=== PATIENT | male | born 1965 | race Caucasian/White ===

== ENCOUNTER 2016-09-05 12:56 | Emergency (ER) | payer BC, OTHER ==
[~2016-09-05] VITALS: Ht 175.3 cm; Wt 98.0 kg
[~2016-09-05 12:56] MED LIST: ATOR-24 PO; FURO40TA3 PO; HMLIS SC; INSDGIPEN SC; LOSA1TAB38 PO; MULT-506 PO; OLME1TAB11 PO; OMEG10007 PO; OMEP40CA41 PO; POTA10CA28 PO; SITA50TA5 PO; VENL150C56 PO
[2016-09-05 13:02] VITALS: TEMP 36.3; Ht 175.3 cm; Wt 98.0 kg
[2016-09-05] MEDS ORDERED: NICOTINE 21 MG/24 HR TDSY TD STA (14:24)
[2016-09-05] MEDS ORDERED: SODIUM CHLORIDE 0.9% 1000ML 1,000 ML IV STA (14:24)
[2016-09-05] MEDS ORDERED: MULTI-VITAMIN INFUSION INJ 10 ML, THIAMINE HCL INJ 100 MG, FoLIC ACID INJ 1 MG in SODIU... IV ONE (14:29)
[2016-09-05] MEDS ORDERED: NICOTINE POLACRILEX 2 MG GUM MT PRN (14:30)
[2016-09-05 14:56] LABS: URINE APPEARANCE CLEAR (CLEAR); URINE BILIRUBIN NEG (NEG); URINE COLOR YELLOW; URINE NITRITE NEG (NEG); URINE SPECIFIC GRAVITY 1.015 (1.000-1.030); UROBILINOGEN NEG (NEG); ZZUR CULT IF INDIC CLEAN CATCH NO
[2016-09-05 15:00] LABS: HEMATOCRIT 42.1 % (42-52); MEAN CELL VOLUME 89.6 fL (80-100); MEAN CORPUSCULAR HEMOGLOBIN 31.5 pg (25-34); MEAN CORPUSCULAR HGB CONC 35.2 g/dl (32-36); MEAN PLATELET VOLUME 9.9 fL (7.4-10.4); PLATELET COUNT 156 K/uL (130-400); WHITE BLOOD COUNT 5.31 K/uL (4.8-10.8)
[2016-09-05 15:02] LABS: MANUAL MICROSCOPIC REQUIRED? NO; REVIEW REQ? YES
[2016-09-05] MEDS ORDERED: AMLODIPINE BESYLATE 5 MG TAB PO STA (15:05)
[2016-09-05 15:11] LABS: BENZODIAZEPINE, URINE NEG (NEG); COCAINE,URINE NEG (NEG); PHENCYCLIDINE, URINE NEG (NEG)
[2016-09-05 15:38] LABS: BUN/CREATININE RATIO 18.2 (10-20); CALCIUM 8.2 mg/dl (8.5-10.1); CREATININE 0.89 mg/dl (0.60-1.40); POTASSIUM 3.7 mmol/L (3.5-5.1)
[2016-09-05 15:49] LABS: THYROID STIMULATING HORMONE 1.27 uIu/ml (0.300-4.500)
--- NOTE | 2016-09-05 16:13 | EMERGENCY ROOM VISIT NOTE ---
History First contact with patient: 14:08 Chief Complaint: DETOX REQUEST Stated Complaint: ALCOHOLISM - DRUNK Nursing Triage Summary: Patient presents with a c/c of requesting Detox. Patient reports chronic alcoholism, drinks at least 1/2 gallon of liquor per day. 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 Patient has history of placement in detox facility in [facility] approximately 2-3 years ago. Negative suicidal ideations. Patient cooperative with staff. History of Present Illness The patient is a 51 year old male who presents to the Emergency Room with requesting detox. He had his last drink minutes before arrival (bottle of beer) . The patient drinks about half a gallon of whisky daily. He also admits to abusing benzodiazepines and opiates which he is not prescribed and buys them. He called his sister and daughter this morning telling them he thought he was going to because of all the alcohol he was drinking. He is unsure if he has taken anything other than alcohol today. 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 He drinks throughout the day on his days off. He did successfully detox 4 years previously. Off alcohol then for 7 months. He is prescribed multiple medications for diabetes and hypertension but as per his daughter does not take any of these as he forgets. He smokes 3 packs of cigarettes daily and is currently requesting a nicotine patch He is anxious but denies any pain, shortness of breath, nausea or vomiting. Review of Systems See HPI for pertinent positives & negatives. A total of 10 systems reviewed and were otherwise negative. Past Medical/Surgical History Medical Problems: (1) Alcoholism /alcohol abuse (2) Anxiety (3) Diabetes (4) HTN (hypertension) (5) Non compliance with medical treatment (6) Type 2 diabetes mellitus Social History Problems: (1) Prescription drug abuse Family History No pertinent family history Social History Smoking Status: Current Every Day Smoker Alcohol Use: heavy Drug Use: other (opiates and benzos) Current/Historical Medications Unable to Obtain Active Prescriptions or Reported Meds Allergies Coded Allergies: No Known Allergies (Unverified , 09/05/16) Physical Exam Vital Signs Date Time Temp Pulse Resp B/P (MAP) Pulse Ox O2 Delivery O2 Flow Rate FiO2 09/05/16 19:41 103 18 155/127 98 Room Air 09/05/16 18:09 100 16 164/114 97 6/19/17 15:34 93 18 171/111 96 Room Air 09/05/16 13:02 36.3 108 20 192/113 95 Room Air Physical Exam VITAL SIGNS: were reviewed as above GENERAL:no acute distress, appears intoxicated SKIN: Warm dry and pink, no rashes HEAD: Normocephalic and atraumatic EYES: extraocular muscles intact, pupils equal and reactive to light OROPHARYNX: non erythematous, clear and moist NECK: Supple, no adenopathy or meningismus LUNGS: No respiratory distress, clear to auscultation, no accessory muscle use HEART: Regular rate and rhythm, heart sounds 1+2, no murmurs ABDOMEN: Soft and nontender, bowel sounds normal BACK: no CVA tenderness EXTREMITIES: Warm and well perfused, no calf tenderness/swelling, peripheral edema 1+ to knees NEUROLOGICALLY: Awake alert and oriented. Cranial nerves 2-12 intact. Cerebellar testing is within normal limits. There is no nystagmus. There is no facial droop. Speech is clear. Vision is grossly normal. Motor and sensory examinations of upper and lower limbs 5/5 power and no sensory deficit. MUSCULOSKELETAL: Good muscle tone. No evidence of trauma Medical Decision & Procedures Laboratory Results 09/05/16 14:48 09/05/16 14:48 Test 09/05/16 13:13 09/05/16 14:48 Urine Color YELLOW Urine Appearance CLEAR (CLEAR) Urine pH 5.0 (4.5-7.5) Urine Specific [place] 1.015 (1.000-1.030) Urine Protein 3+ (NEG) Urine Glucose (UA) 2+ (NEG) Urine Ketones NEG (NEG) Urine Occult Blood 1+ (NEG) Urine Nitrite NEG (NEG) Urine Bilirubin NEG (NEG) Urine Urobilinogen NEG (NEG) Urine Leukocyte Esterase NEG (NEG) Urine WBC (Auto) 0 /hpf (0-5) Urine RBC (Auto) 5-10 /hpf (0-4) Urine Hyaline Casts (Auto) 0 /lpf (0-5) Urine Epithelial Cells (Auto) 5-10 /lpf (0-5) Urine Bacteria (Auto) NEG (NEG) Urine Opiates Screen NEG (NEG) Urine Methadone, Qualitative NEG (NEG) Urine Barbiturates NEG (NEG) Urine Phencyclidine (PCP) Level NEG (NEG) Ur Amphetamine/Methamphetamine NEG (NEG) MDMA (Ecstasy) Screen NEG (NEG) Urine Benzodiazepines Screen NEG (NEG) Urine Cocaine Metabolite NEG (NEG) Urine Marijuana (THC) NEG (NEG) Red Blood Count 4.70 M/uL (4.7-6.1) Mean Corpuscular Volume 89.6 fL (80-100) Mean Corpuscular Hemoglobin 31.5 pg (25-34) Mean Corpuscular Hemoglobin Concent 35.2 g/dl (32-36) RDW Standard Deviation 39.7 fL (36.4-46.3) RDW Coefficient of Variation 12.1 % (11.5-14.5) Mean Platelet Volume 9.9 fL (7.4-10.4) Anion Gap 12.0 mmol/L (3-11) Est Creatinine Clear Calc Drug Dose 112.1 ml/min Estimated GFR () 113.9 Estimated GFR (Non- 98.3 BUN/Creatinine Ratio 18.2 (10-20) Calcium Level 8.2 mg/dl (8.5-10.1) Total Bilirubin 0.7 mg/dl (0.2-1) Direct Bilirubin 0.1 mg/dl (0-0.2) Aspartate Amino Transf (AST/SGOT) 73 U/L (15-37) Alanine Aminotransferase (ALT/SGPT) 109 U/L (12-78) Alkaline Phosphatase 75 U/L (45-117) Total Protein 7.1 gm/dl (6.4-8.2) Albumin 3.3 gm/dl (3.4-5.0) Thyroid Stimulating Hormone (TSH) 1.270 uIu/ml (0.300-4.500) Ethyl Alcohol mg/dL 329.0 mg/dl (0-3) Medications Administered Medications (Trade) Dose Ordered Sig/Dav Route Start Time Stop Time Status Last Admin Dose Admin Sodium Chloride 1,000 ml @ 999 mls/hr Q1H1M STAT IV 09/05/16 14:24 09/05/16 15:24 DC 09/05/16 14:52 999 MLS/HR Nicotine (Nicoderm Cq 21MG Patch) 1 patch ONE STAT TD 09/05/16 14:24 09/05/16 14:28 DC 09/05/16 14:53 1 PATCH Multivitamins 10 ml/Thiamine HCl 100 mg/Folic Acid 1 mg/Sodium Chloride 1,011.2 ml @ 500 mls/ hr Q2H2M ONCE IV 09/05/16 14:29 09/05/16 16:30 DC 09/05/16 14:29 500 MLS/HR Amlodipine Besylate (Norvasc Tab) 5 mg NOW STAT PO 09/05/16 15:05 09/05/16 15:09 DC 09/05/16 15:37 5 MG Lorazepam (Ativan Tab) 1 mg NOW STAT PO 09/05/16 17:33 09/05/16 17:34 DC 09/05/16 17:39 1 MG Amlodipine Besylate (Norvasc Tab) 5 mg NOW ONCE PO 09/05/16 19:30 09/05/16 19:31 DC 09/05/16 19:40 5 MG ECG Indication: altered mental status Rate (beats per minute): 94 Rhythm: normal sinus Findings: no acute ischemic change Comparison ECG Date: no prior available ED Course 14:05 Complete history and physical performed 14:[address] Guadarrama who separately performed history and physical 15:29 Reassessed patient - fine tremor, feels he is sobering up and getting more agitated and anxious although he appears calm 17:33 Reassessed patient - increased tremors, anxiety, agitation and headache - CIWA 14, Ativan 1mg PO prescribed 18:52 Reassessed patient - appears more calm, no tremors, headache continues. 19:26 Reassessed patient - eating dinner, appears much the same. 20:52 Reassessed patient - CIWA 8. Will give 1mg Ativan PO before he is transported as he is becoming more sober and it is a 2 hour journey. Medical Decision Prior records/ancillary studies reviewed. Triage Nursing notes reviewed. Additional history obtained from patient, his sister and daughter The patient's history was concerning for alcohol intoxication. Differential diagnosis: Etiologies such as alcohol intoxication, toxicologic, infection, hypoglycemia, electrolyte abnormalities, intracerebral event, neurologic, as well as others were entertained. Physical examination: As above. The patient is clinically intoxicated. No trauma noted. ER treatment provided: Aspiration precautions Amlodipine 5mg given due to blood pressure of 192/111 NSS 1L bolus Banana bag given The patient was frequently reassessed. The labs revealed elevated AST and ALT (likely chronic from alcohol use). The patient's blood alcohol level was 329 mg/dL. Glucose 211 consistent with history of diabetes and not compliant with medication Referral: Patient is requesting rehab. He has no signs or symptoms of delirium tremens Impression Primary Impression: Alcohol intoxication Departure Information Dispostion Rehab Inpatient Facility Condition GOOD Prescriptions Unable to Obtain Active Prescriptions or Reported Meds Referrals Meena Bansal M.D. (MEDICAL) (PCP) Patient Instructions My [facility] Resident Tracking Resident Involvement: Resident Care Provided Care Provided: Adult ED Problem Qualifiers Primary Impression: Alcohol intoxication Complication of substance-induced condition: uncomplicated Qualified Codes: F10.920 - Alcohol use, unspecified with intoxication, uncomplicated
--- NOTE | 2016-09-05 17:23 | EMERGENCY ROOM VISIT NOTE ---
History Report prepared by Samantha: Jose Mao Under the Supervision of: Dr. Vikash Guadarrama D.O. First contact with patient: 14:08 Chief Complaint: DETOX REQUEST Stated Complaint: ALCOHOLISM - DRUNK Nursing Triage Summary: Patient presents with a c/c of requesting Detox. Patient reports chronic alcoholism, drinks at least 1/2 gallon of liquor per day. 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 Patient has history of placement in detox facility in [facility] approximately 2-3 years ago. Negative suicidal ideations. Patient cooperative with staff. History of Present Illness The patient is a 51 year old male who presents to the Emergency Room with an acute alcohol detox request. The patient drinks about half a gallon of whisky per day. He also abuses benzodiazepines and opiates, which are not prescribed to him. The patient called his family this morning and told them that he is afraid that he will if he does not change his habits. The patient last drank just prior to coming to the ED. He is not sure how much opiates or benzos he took today. The patient 's last alcohol detox was about four years ago, which lasted 7 months. The patient also smokes up to 3 packs of cigarettes per day. The patient is prescribed Effexor for anxiety. He is not compliant with his diabetes or hypertension medications. Source of History: patient Onset: today Position: other (global) Quality: other (alcohol detox request) Timing: other (acute) Modifying Factors (Worsening): other (fearful for life) Review of Systems See HPI for pertinent positives & negatives. A total of 10 systems reviewed and were otherwise negative. Past Medical & Surgical Medical Problems: (1) Anxiety (2) Diabetes (3) HTN (hypertension) Family History No pertinent family history Social History Smoking Status: Current Every Day Smoker Alcohol Use: heavy Occupation Status: employed Current/Historical Medications Unable to Obtain Active Prescriptions or Reported Meds Allergies Uncoded Allergies: NKDA (Allergy, NONE, 11/30/10) Physical Exam Vital Signs Date Time Temp Pulse Resp B/P (MAP) Pulse Ox O2 Delivery O2 Flow Rate FiO2 09/05/16 15:34 93 18 171/111 96 Room Air 09/05/16 13:02 36.3 108 20 192/113 95 Room Air Physical Exam CONSTITUTIONAL/VITAL SIGNS: Reviewed / noted above. GENERAL: Non-toxic in appearance. INTEGUMENTARY: Warm, dry, and [place]. HEAD: Normocephalic. EYES: without scleral icterus or trauma. ENT/OROPHARYNX: clear and moist. LYMPHADENOPATHY/NECK: Is supple without lymphadenopathy or meningismus. RESPIRATORY: Lungs clear and equal. CARDIOVASCULAR: Regular rate and rhythm. GI/ABDOMEN: Soft and nontender. No organomegaly or pulsatile mass. No rebound or guarding. Normal bowel sounds. EXTREMITIES: Warm and well perfused. BACK: No CVA tenderness. NEUROLOGICAL: Intact without focal deficits. PSYCHIATRIC: normal affect. MUSCULOSKELETAL: Normally developed with good muscle tone. TRIAGE NURSING DOCUMENTATION REVIEWED. Medical Decision & Procedures Laboratory Results 09/05/16 14:48 09/05/16 14:48 Test 09/05/16 13:13 09/05/16 14:48 Urine Color YELLOW Urine Appearance CLEAR (CLEAR) Urine pH 5.0 (4.5-7.5) Urine Specific [place] 1.015 (1.000-1.030) Urine Protein 3+ (NEG) Urine Glucose (UA) 2+ (NEG) Urine Ketones NEG (NEG) Urine Occult Blood 1+ (NEG) Urine Nitrite NEG (NEG) Urine Bilirubin NEG (NEG) Urine Urobilinogen NEG (NEG) Urine Leukocyte Esterase NEG (NEG) Urine WBC (Auto) 0 /hpf (0-5) Urine RBC (Auto) 5-10 /hpf (0-4) Urine Hyaline Casts (Auto) 0 /lpf (0-5) Urine Epithelial Cells (Auto) 5-10 /lpf (0-5) Urine Bacteria (Auto) NEG (NEG) Urine Opiates Screen NEG (NEG) Urine Methadone, Qualitative NEG (NEG) Urine Barbiturates NEG (NEG) Urine Phencyclidine (PCP) Level NEG (NEG) Ur Amphetamine/Methamphetamine NEG (NEG) MDMA (Ecstasy) Screen NEG (NEG) Urine Benzodiazepines Screen NEG (NEG) Urine Cocaine Metabolite NEG (NEG) Urine Marijuana (THC) NEG (NEG) Red Blood Count 4.70 M/uL (4.7-6.1) Mean Corpuscular Volume 89.6 fL (80-100) Mean Corpuscular Hemoglobin 31.5 pg (25-34) Mean Corpuscular Hemoglobin Concent 35.2 g/dl (32-36) RDW Standard Deviation 39.7 fL (36.4-46.3) RDW Coefficient of Variation 12.1 % (11.5-14.5) Mean Platelet Volume 9.9 fL (7.4-10.4) Anion Gap 12.0 mmol/L (3-11) Est Creatinine Clear Calc Drug Dose 112.1 ml/min Estimated GFR () 113.9 Estimated GFR (Non- 98.3 BUN/Creatinine Ratio 18.2 (10-20) Calcium Level 8.2 mg/dl (8.5-10.1) Total Bilirubin 0.7 mg/dl (0.2-1) Direct Bilirubin 0.1 mg/dl (0-0.2) Aspartate Amino Transf (AST/SGOT) 73 U/L (15-37) Alanine Aminotransferase (ALT/SGPT) 109 U/L (12-78) Alkaline Phosphatase 75 U/L (45-117) Total Protein 7.1 gm/dl (6.4-8.2) Albumin 3.3 gm/dl (3.4-5.0) Thyroid Stimulating Hormone (TSH) 1.270 uIu/ml (0.300-4.500) Ethyl Alcohol mg/dL 329.0 mg/dl (0-3) Laboratory results as stated above per my review. Medications Administered Medications (Trade) Dose Ordered Sig/Dav Route Start Time Stop Time Status Last Admin Dose Admin Sodium Chloride 1,000 ml @ 999 mls/hr Q1H1M STAT IV 09/05/16 14:24 09/05/16 15:24 DC 09/05/16 14:52 999 MLS/HR Nicotine (Nicoderm Cq 21MG Patch) 1 patch ONE STAT TD 09/05/16 14:24 09/05/16 14:28 DC 09/05/16 14:53 1 PATCH Multivitamins 10 ml/Thiamine HCl 100 mg/Folic Acid 1 mg/Sodium Chloride 1,011.2 ml @ 500 mls/ hr Q2H2M ONCE IV 09/05/16 14:29 09/05/16 16:30 DC 09/05/16 14:29 500 MLS/HR Amlodipine Besylate (Norvasc Tab) 5 mg NOW STAT PO 09/05/16 15:05 09/05/16 15:09 DC 09/05/16 15:37 5 MG ECG Indication: other (detox) Rate (beats per minute): 94 Rhythm: normal sinus Findings: no acute ischemic change, no ectopy ED Course 1405: The patient was evaluated by my resident, Dr. Tae Sparrow M.D. 1424: Nicotine Patch TD, NSS 1000 ml @ 999 mls/hr. 1429: Multivitamins 10 ml / Thiamine HCl 100 mg / Folic Acid 1 mg / NSS 1011.2 ml @ 500 mls/hr IV. 1430: Nicotine 2 mg gum. 1505: Norvasc 5 mg PO. 1525: Previous medical records were reviewed. The patient was evaluated in room A6. A complete history and physical examination was performed. Medical Decision differential includes toxic ingestions, self-mutilation, suicidal ideation, suicide attempt, depression. This is a 51-year-old male who presents to the ED with a chief complaint of alcoholism. The patient is requesting detox. He states that he has been to [facility] about 4 years ago for rehabilitation. He states that he has a strong desire to become clean. The patient's initial blood pressure was elevated at 192/113. This improved during his ED stay. He does report that he is supposed to be taking blood pressure medication and has not been compliant with this. His physical exam reveals a 51-year-old male in no acute distress. There is a small amount of alcohol about the patient but the patient speaks clearly and appears to be functioning normally. An EKG shows a normal sinus rhythm. CBC was unremarkable as was her complete metabolic panel. TSH is normal. Tox screen was negative. Alcohol was 329. The patient was given 15, as well as Norvasc by mouth. He was given a banana bag. He was told the results. The patient is being evaluated by case management assistant for placement at a rehabilitation facility. He is going to [facility]. Transportation being arranged. The patient has elevated blood pressure. He is to follow-up with his PCP for this and take his medications. Medication list was reviewed. Impression Primary Impression: Alcoholism /alcohol abuse Scribe Attestation The scribe's documentation has been prepared under my direction and personally reviewed by me in its entirety. I confirm that the note above accurately reflects all work, treatment, procedures, and medical decision making performed by me. Departure Information Dispostion Rehab Inpatient Facility Prescriptions Unable to Obtain Active Prescriptions or Reported Meds Referrals No Doctor, Assigned (PCP) Patient Instructions My [facility] Additional Instructions Have your doctor recheck her blood pressure. He should take her blood pressure medication as prescribed. Go to rehabilitation.
[2016-09-05] MEDS ORDERED: LORAZEPAM 1 MG TAB PO STA ×3 (17:33→22:07)
[2016-09-05] MEDS ORDERED: AMLODIPINE BESYLATE 5 MG TAB PO ONE (19:30)
[2016-09-05] MEDS ORDERED: CHLORDIAZEPOXIDE 25 MG CAP PO STA (22:11)
[2016-09-05] MEDS ORDERED: LORAZEPAM 1 MG TAB SL STA ×2 (22:31→23:26)
[2016-09-05] MEDS ORDERED: GABAPENTIN 600 MG TAB PO SCH (23:15)
[2016-09-05] MEDS ORDERED: CLONIDINE HCL 0.1 MG TAB PO ONE (23:15)
[2016-09-05] MEDS ORDERED: LORAZEPAM 2 MG/ML 1 ML VIAL IV PRN (23:15)
[2016-09-05 23:22] VITALS: BP 183/119; PULSE 105; O2SAT 95
[2016-09-05 23:28] LABS: MAGNESIUM 1.8 mg/dl (1.8-2.4)
--- NOTE | 2016-09-06 01:32 | EMERGENCY ROOM VISIT NOTE ---
ED Visit Note This patient was seen by Dr. Sparrow and Dr. Guadarrama. The patient was awaiting transfer or [facility] hours away. Apparently there was a delay in transfer. Dr. Sparrow came and asked me about Ativan as he felt the patient was withdrawing. He had given a milligram of Ativan and had just ordered a second sublingual. I went and saw the patient and he did appear to be mildly shaky and was feeling anxious. His blood pressure was elevated however in reviewing his charts, it was elevated during his entire stay here including when he was intoxicated when he hit the door. I talked to the patient's family at length he is a very heavy drinker. I do not want him to have significant withdrawal so I gave him another 2 mg sublingual Ativan as at this point he did not have an IV. I also gave him Librium 50 mg by mouth to hopefully hold him over for the transport he was further observed in the ER. His blood pressure did remain elevated however he says is always elevating his chronic blood pressure upon reassessment. He is no longer shaky and looks well he says he feels good. I think he is stable for transfer at this point. He will be transferred to inpatient's Center. Given it is 2 hours away, I did give a milligram of Ativan to have just in case he starts feeling shaky on route as well. He will be transferred.
== END 2016-09-05 23:30 | disposition short-term general hospital (02) ==
LOC: C.EDB 12:59 → C.EDA 23:30
DX: F10.920 Alcohol use, unspecified with intoxication, uncomplicated (principal); F41.9 Anxiety disorder, unspecified; I10 Essential (primary) hypertension; E11.9 Type 2 diabetes mellitus without complications; F11.10 Opioid abuse, uncomplicated; F17.210 Nicotine dependence, cigarettes, uncomplicated

== ENCOUNTER 2016-12-11 20:23 | Emergency (ER) | payer BC ==
[~2016-12-11] VITALS: Ht 180.3 cm; Wt 98.0 kg
[2016-12-11 20:28] VITALS: TEMP 36.9; Ht 180.3 cm; Wt 98.0 kg
[2016-12-11 21:29] LABS: BASO % 1.3 %; BASO ABS # 0.08 K/uL (0-0.2); COMPLETE YES; EOS % 0.6 %; HEMATOCRIT 40.4 % (42-52); IG% 0.2 %; LYMPH % 49.1 %; LYMPH ABS # 3.13 K/uL (1.2-3.4); MEAN CELL VOLUME 91.2 fL (80-100); MEAN CORPUSCULAR HEMOGLOBIN 32.5 pg (25-34); MEAN CORPUSCULAR HGB CONC 35.6 g/dl (32-36); MEAN PLATELET VOLUME 9.3 fL (7.4-10.4); MONO % 6.1 %; NEUT % 42.7 %; PLATELET COUNT 329 K/uL (130-400); RED BLOOD COUNT 4.43 M/uL (4.7-6.1); WHITE BLOOD COUNT 6.38 K/uL (4.8-10.8)
[2016-12-11] MEDS ORDERED: CALC500C3 PO (21:38)
[2016-12-11] MEDS ORDERED: NICOTINE 14 MG/24 HR TDSY TD STA (21:39)
[2016-12-11] MEDS ORDERED: ALBUT/IPRATROP 3MG/0.5MG NEB 3 ML VIAL INH STA (21:39)
[2016-12-11] MEDS ORDERED: METHYLPREDNISOLONE 125 MG VIAL IV STA (21:39)
[2016-12-11] MEDS ORDERED: MAGNESIUM SULFATE 1GM / D5W 1 GM BAG IV STA (21:39)
--- NOTE | 2016-12-11 21:45 | EMERGENCY ROOM VISIT NOTE ---
History Report prepared by Samantha: Tre Velazquez Under the Supervision of: Dr. Zelalem Peter M.D. First contact with patient: 21:02 Chief Complaint: MENTAL HEALTH EVALUATION Stated Complaint: EMOTIONAL History of Present Illness The patient is a 51 year old white male with a past medical history of bipolar disorder, alcoholism and drug abuse who presents to the ED with a cc of persistent depression beginning 2.5 months ago. Admits to drinking about a half gallon of whiskey per day. Uses drugs when he is able to obtain them. The patient states "I don't care if I live or ". Thoughts of stabbing himself with scissors. Patient was recently discharged from rehab for alcohol. Drank a few shots and a few beers today with the most recent drink being about five hours ago. Smokes a pack of cigarettes per day. Source of History: patient Onset: 2.5 months ago Quality: other (depression) Timing: other (persistent) Review of Systems See HPI for pertinent positives and negatives. A total of ten systems were reviewed and were otherwise negative. Past Medical & Surgical Medical Problems: (1) Alcoholism /alcohol abuse (2) Anxiety (3) Diabetes (4) HTN (hypertension) (5) Non compliance with medical treatment (6) Type 2 diabetes mellitus Social History Problems: (1) Prescription drug abuse Family History No pertinent family history Social History Smoking Status: Current Every Day Smoker Alcohol Use: heavy Drug Use: other Occupation Status: employed Current/Historical Medications Scheduled PRN Calcium Carbonate (Tums), 500 MG PO UD PRN for ACID Allergies Coded Allergies: No Known Allergies (Unverified , 09/05/16) Physical Exam Vital Signs Date Time Temp Pulse Resp B/P (MAP) Pulse Ox O2 Delivery O2 Flow Rate FiO2 12/12/16 00:55 99 22 140/88 90 Room Air 12/11/16 22:47 93 Nasal Cannula 2.0 12/11/16 22:46 104 28 145/86 88 Room Air 12/11/16 20:55 95 Nasal Cannula 2.0 12/11/16 20:55 89 Room Air 12/11/16 20:54 89 12/11/16 20:28 36.9 91 18 114/70 94 Room Air Physical Exam GENERAL: Awake, alert, well-appearing, NAD HENT: Normocephalic, atraumatic. EYES: Normal conjunctiva. Sclera non-icteric. NECK: Supple. No nuchal rigidity. FROM. RESPIRATORY: Wheezing throughout with coarse breath sounds. CARDIAC: RRR, no MRG ABDOMEN: Soft, NTND, BS+ MSK: No chest wall TTP, no LE edema NEURO: GCS 15, CN 2-12 intact, moves all 4s on command. Follows all commands. SKIN: No rash or jaundice noted. Medical Decision & Procedures ER Provider Diagnostic Interpretation: X-ray: Per my interpretation, radiologist review. CHEST ONE VIEW PORTABLE FINDINGS: The bones soft tissues and hemidiaphragms are normal. The cardiomediastinal silhouette is normal. The lungs are clear. The pulmonary vasculature is normal. IMPRESSION: Negative chest. The above report was generated using voice recognition software. It may contain grammatical, syntax or spelling errors. Electronically signed by: Glenn Zambrano M.D. 12/11/2016 10:07 PM Laboratory Results 12/11/16 21:08 Red Blood Count 4.43, Mean Corpuscular Volume 91.2, Mean Corpuscular Hemoglobin 32.5, Mean Corpuscular Hemoglobin Concent 35.6, Mean Platelet Volume 9.3, Neutrophils (%) (Auto) 42.7, Lymphocytes (%) (Auto) 49.1, Monocytes (%) (Auto) 6.1, Eosinophils (%) (Auto) 0.6, Basophils (%) (Auto) 1.3, Neutrophils # (Auto) 2.73, Lymphocytes # (Auto) 3.13, Monocytes # (Auto) 0.39, Eosinophils # (Auto) 0.04, Basophils # (Auto) 0.08 12/11/16 21:08 Test 12/11/16 21:08 White Blood Count 6.38 K/uL (4.8-10.8) Red Blood Count 4.43 M/uL (4.7-6.1) Hemoglobin 14.4 g/dL (14.0-18.0) Hematocrit 40.4 % (42-52) Mean Corpuscular Volume 91.2 fL (80-100) Mean Corpuscular Hemoglobin 32.5 pg (25-34) Mean Corpuscular Hemoglobin Concent 35.6 g/dl (32-36) Platelet Count 329 K/uL (130-400) Mean Platelet Volume 9.3 fL (7.4-10.4) Neutrophils (%) (Auto) 42.7 % Lymphocytes (%) (Auto) 49.1 % Monocytes (%) (Auto) 6.1 % Eosinophils (%) (Auto) 0.6 % Basophils (%) (Auto) 1.3 % Neutrophils # (Auto) 2.73 K/uL (1.4-6.5) Lymphocytes # (Auto) 3.13 K/uL (1.2-3.4) Monocytes # (Auto) 0.39 K/uL (0.11-0.59) Eosinophils # (Auto) 0.04 K/uL (0-0.5) Basophils # (Auto) 0.08 K/uL (0-0.2) RDW Standard Deviation 43.5 fL (36.4-46.3) RDW Coefficient of Variation 13.0 % (11.5-14.5) Immature Granulocyte % (Auto) 0.2 % Immature Granulocyte # (Auto) 0.01 K/uL (0.00-0.02) Anion Gap 14.0 mmol/L (3-11) Est Creatinine Clear Calc Drug Dose 85.9 ml/min Estimated GFR () 80.1 Estimated GFR (Non- 69.1 BUN/Creatinine Ratio 18.0 (10-20) Calcium Level 8.2 mg/dl (8.5-10.1) Total Bilirubin 0.2 mg/dl (0.2-1) Direct Bilirubin < 0.1 mg/dl (0-0.2) Aspartate Amino Transf (AST/SGOT) 62 U/L (15-37) Alanine Aminotransferase (ALT/SGPT) 165 U/L (12-78) Alkaline Phosphatase 77 U/L (45-117) Total Protein 7.3 gm/dl (6.4-8.2) Albumin 3.2 gm/dl (3.4-5.0) Thyroid Stimulating Hormone (TSH) 0.876 uIu/ml (0.300-4.500) Ethyl Alcohol mg/dL 247.0 mg/dl (0-3) Laboratory results reviewed by me Medications Administered Medications (Trade) Dose Ordered Sig/Dav Route Start Time Stop Time Status Last Admin Dose Admin Nicotine (Nicoderm Cq 14MG Patch) 1 patch ONE STAT TD 12/11/16 21:39 12/11/16 21:41 DC 12/11/16 21:48 1 PATCH Albuterol/ Ipratropium (Duoneb) 9 ml ONE STAT INH 12/11/16 21:39 12/11/16 21:41 DC 12/11/16 21:50 9 ML Magnesium Sulfate (Magnesium Sulfate) 1 gm NOW STAT IV 12/11/16 21:39 12/11/16 21:41 DC 12/11/16 21:53 1 GM Methylprednisolone Sodium Succinate (Solu-Medrol IV) 125 mg NOW STAT IV 12/11/16 21:39 12/11/16 21:41 DC 12/11/16 21:48 125 MG ED Course 4: The patient was evaluated in room A5. A complete history and physical exam was performed. 5: I spoke with the case filler regarding the patient's case. 0215: The patient is clinically sober and will be evaluated by mental health. 0230: The patient was signed out to Dr. George at the change of shift pending mental health evaluation. Medical Decision The patient is a 51 year old white male with a past medical history of bipolar disorder, alcoholism and drug abuse who presents to the ED with a cc of persistent depression beginning 2.5 months ago. Differential diagnosis: acute psychosis, intoxication, electrolyte abnormality , and asthma exacerbation. Patient was seen and evaluated at the bedside. Patient acutely intoxicated. Patient able to follow commands GCS of 15. Patient is a smoker and does have a history of asthma. Patient did have wheezing throughout. Patient was given steroids [place] fluids. Patient was also given thiamine and folic acid and Librium given his recent alcohol use as well as prior history of alcohol abuse. Patient's blood work fairly unremarkable. Patient chest x-ray clear. Patient was pending placement at time of sign out to Dr. George. Medication Reconcilliation Current Medication List: was personally reviewed by me Blood Pressure Screening Patient's blood pressure: Normal blood pressure Blood pressure disposition: Did not require urgent referral Impression Primary Impression: Acute psychosis Additional Impressions: Intoxication Asthma exacerbation Scribe Attestation The scribe's documentation has been prepared under my direction and personally reviewed by me in its entirety. I confirm that the note above accurately reflects all work, treatment, procedures, and medical decision making performed by me. Departure Information Dispostion Still a Patient (Signed out to Dr. George at the change of shift) Referrals Meena Bansal M.D. (MEDICAL) (PCP) Forms HOME CARE DOCUMENTATION FORM, IMPORTANT VISIT INFORMATION Patient Instructions My [facility] Problem Qualifiers
[2016-12-11 21:46] LABS: ALT/SGPT 165 U/L (12-78); AST/SGOT 62 U/L (15-37); BLOOD UREA NITROGEN 22 mg/dl (7-18); CALCIUM 8.2 mg/dl (8.5-10.1); CARBON DIOXIDE 20 mmol/L (21-32); CHLORIDE 105 mmol/L (98-107); GLUCOSE 153 mg/dl (70-99); POTASSIUM 3.7 mmol/L (3.5-5.1); SODIUM 139 mmol/L (136-145)
[2016-12-11 21:58] LABS: ALKALINE PHOSPHATASE 77 U/L (45-117); THYROID STIMULATING HORMONE 0.876 uIu/ml (0.300-4.500)
--- NOTE | 2016-12-11 22:08 | DIAGNOSTIC IMAGING REPORT ---
CHEST ONE VIEW PORTABLE CLINICAL HISTORY: wheezing throughout dyspnea COMPARISON STUDY: 09/03/2015 FINDINGS: The bones soft tissues and hemidiaphragms are normal. The cardiomediastinal silhouette is normal. The lungs are clear. The pulmonary vasculature is normal. IMPRESSION: Negative chest. The above report was generated using voice recognition software. It may contain grammatical, syntax or spelling errors. Electronically signed by: Glenn Zambrano M.D. 12/11/2016 10:07 PM Dictated Date/Time: 12/11/2016 10:06 PM
[2016-12-12] MEDS ORDERED: THIAMINE HCL 100 MG/ML 2 ML VIAL IV STA (00:42)
[2016-12-12] MEDS ORDERED: SODIUM CHLORIDE 0.9% 1000ML 1,000 ML IV STA (00:42)
[2016-12-12] MEDS ORDERED: CHLORDIAZEPOXIDE 25 MG CAP PO ONE ×2 (00:45→06:45)
[2016-12-12 02:29] LABS: URINE APPEARANCE CLEAR (CLEAR); URINE BILIRUBIN NEG (NEG); URINE COLOR YELLOW; URINE EPITHELIAL CELL AUTO 0-5 /lpf (0-5); URINE NITRITE NEG (NEG); URINE SPECIFIC GRAVITY 1.031 (1.000-1.030); UROBILINOGEN NEG (NEG)
[2016-12-12 02:31] LABS: MANUAL MICROSCOPIC REQUIRED? NO; REVIEW REQ? NO
[2016-12-12 02:52] LABS: BENZODIAZEPINE, URINE NEG (NEG); COCAINE,URINE NEG (NEG); PHENCYCLIDINE, URINE NEG (NEG)
--- NOTE | 2016-12-12 03:15 | EMERGENCY ROOM VISIT NOTE ---
ED Visit Note First contact with patient: 03:11 I received this patient in signout at the change of shift from Dr. Peter pending mental health assessment and bed search. The patient has received by mouth Librium to avoid alcohol withdrawal in the emergency department. Patient has been accepted on a voluntary basis to [facility] for further care. Secure transportation arrangements have been made. Please refer to previous documentation for further detail on the history, physical and visit.
[2016-12-12] MEDS ORDERED: FoLIC ACID INJ 1 MG in SYRINGE 9.8 ML IV SCH (09:00)
[2016-12-12 09:35] VITALS: BP 159/89; PULSE 90; O2SAT 99
== END 2016-12-12 09:52 ==
LOC: EDBD 20:23 → C.EDA 20:24
DX: F31.9 Bipolar disorder, unspecified (principal); F23 Brief psychotic disorder; J45.901 Unspecified asthma with (acute) exacerbation; Y90.8 Blood alcohol level of 240 mg/100 ml or more; F17.210 Nicotine dependence, cigarettes, uncomplicated; F10.229 Alcohol dependence with intoxication, unspecified; F41.9 Anxiety disorder, unspecified; E11.9 Type 2 diabetes mellitus without complications; I10 Essential (primary) hypertension; Z91.19 Patient's noncompliance with other medical treatment and regimen

== ENCOUNTER 2017-02-02 14:26 | Emergency (ER) | payer BC ==
[~2017-02-02] VITALS: Ht 175.3 cm; Wt 101.9 kg
[~2017-02-02 14:26] MED LIST changes: -ATOR-24 PO; +CALC500C3 PO; -FURO40TA3 PO; -HMLIS SC; -INSDGIPEN SC; -LOSA1TAB38 PO; -MULT-506 PO; -OLME1TAB11 PO; -OMEG10007 PO; -OMEP40CA41 PO; -POTA10CA28 PO; -SITA50TA5 PO; -VENL150C56 PO
[2017-02-02] MEDS ORDERED: LORAZEPAM 2 MG/ML 1 ML VIAL IV STA (14:37)
[2017-02-02] MEDS ORDERED: THIAMINE HCL 100 MG/ML 2 ML VIAL IV STA (14:37)
--- NOTE | 2017-02-02 14:40 | EMERGENCY ROOM VISIT NOTE ---
History Report prepared by Samantha: Joe Mike Under the Supervision of: Dr. Maurice Kate D.O. First contact with patient: 14:27 Chief Complaint: SYNCOPE Stated Complaint: SYNCOPE History of Present Illness The patient is a 51 year old male who presents to the Emergency Room with complaints of an episode of syncope that occurred [employer]. He has a past medical history of alcohol abuse. He was recently discharged from 29 days in an alcohol rehabilitation center. He states that he is doing well and cleaning himself up. However, he notes that he did drink 2 quarts of beer three days ago. He states that he has been quite stressed recently and has not been able to sleep. He is experiencing shakiness to his body as well. While he was talking on the phone today, he began to feel very lightheaded and had an episode of syncope. The person he was talking to on the phone called EMS to go check on him. The patient woke up on the floor some time later with right facial numbness and a right leg cramp as well. He denies any trauma or injury. He currently has a mild headache. He denies any chest pain or shortness of breath. He denies any recent Benzodiazepine use. He took all of his normal medications this morning. He denies any IV drug use. He has never had a seizure induced by withdrawal. Source of History: patient Onset: today Position: other (global) Symptom Intensity: 1 episode Quality: other (Syncope) Timing: resolved Associated Symptoms: + numbness (right side of face), No chest pain, No SOB Note: He is having right calf cramping. Review of Systems See HPI for pertinent positives & negatives. A total of 10 systems reviewed and were otherwise negative. Past Medical & Surgical Medical Problems: (1) Alcoholism /alcohol abuse (2) Anxiety (3) Diabetes (4) HTN (hypertension) (5) Non compliance with medical treatment (6) Type 2 diabetes mellitus Social History Problems: (1) Prescription drug abuse Family History No pertinent family history Social History Smoking Status: Current Every Day Smoker Alcohol Use: heavy Drug Use: other (No IV drugs, but he states "all the other ones") Occupation Status: employed Current/Historical Medications Scheduled Aspirin (Aspirin Ec), 325 MG PO DAILY Chlordiazepoxide (Librium), 10 MG PO DIRECTED Gabapentin (Gabapentin), 600 MG PO TID Lisinopril (Zestril), 40 MG PO DAILY Multivitamin (Multivitamin), 1 TAB PO DAILY Naltrexone Hcl (Naltrexone Hcl), 25 MG PO HS Trazodone Hcl (Trazodone), 100 MG PO HS Venlafaxine Hcl (Venlafaxine Hcl Er), 150 MG PO DAILY Allergies Coded Allergies: No Known Allergies (Unverified , 02/02/17) Physical Exam Vital Signs Date Time Temp Pulse Resp B/P (MAP) Pulse Ox O2 Delivery O2 Flow Rate FiO2 02/02/17 17:44 75 20 152/100 95 02/02/17 16:28 78 20 179/86 94 Room Air 02/02/17 15:02 95 Room Air 02/02/17 15:00 36.6 105 20 140/101 94 Room Air 02/02/17 14:34 99 Physical Exam GENERAL: Patient is awake, alert, and in no acute distress. Patient is resting comfortably but is very anxious appearing. EYES: The conjunctivae are clear. The pupils are round and reactive. EARS, NOSE, MOUTH AND THROAT: The nose is without any evidence of any deformity. Mucous membranes are moist tongue is midline NECK: The neck is nontender and supple. RESPIRATORY: Normal respiratory effort is noted there is no evidence of wheezing rhonchi or rales CARDIOVASCULAR: Regular rate and rhythm noted there no murmurs rubs or gallops normal S1 normal S2 GASTROINTESTINAL: The abdomen is soft. Bowel sounds are present in all quadrants. Abdomen is nontender MUSCULOSKELETAL/EXTREMITIES: There is no evidence of gross deformity full range of motion is noted in the hips and shoulders SKIN: There is no obvious evidence of any rash. There are no petechiae, pallor or cyanosis noted. NEUROLOGIC: Patient is awake alert and oriented x3 strength is symmetric patellar reflexes are 2+ bilaterally. There was a significant resting tremor which also appearing to worsen with intent. Medical Decision & Procedures ER Provider Diagnostic Interpretation: Radiology results as stated below per my review and radiologist interpretation: CT HEAD WITHOUT CONTRAST (CT) CLINICAL HISTORY: Altered mental status. Weakness. COMPARISON STUDY: No previous studies for comparison. TECHNIQUE: Axial CT of the brain is performed from the vertex to the skull base. IV contrast was not administered for this examination. A dose lowering technique was utilized adhering to the principles of ALARA. CT DOSE: 884.08 mGy.cm FINDINGS: No intra or extra-axial mass lesions are visualized. There is no CT evidence of acute cortical infarction. There is no evidence of midline shift. There is no acute hemorrhage. No calvarial fractures are visualized. There is ossification of the anterior falx. There is no evidence of pathologic ventricular dilatation. There is mucosal thickening within the left maxillary sinus. There is an inflammatory polyp/retention cyst within the sphenoid sinus. IMPRESSION: No acute intracranial findings Electronically signed by: David Meneses M.D. 02/02/2017 3:47 PM Dictated Date/Time: 02/02/2017 3:46 PM CHEST ONE VIEW PORTABLE HISTORY: 51 years-old Male EVALUATE ALTERED MENTAL STATUS/WEAKNESS acute altered mental status COMPARISON: Chest radiograph 12/11/2016 TECHNIQUE: Portable upright AP view of the chest FINDINGS: Cardiac mediastinal and hilar silhouettes are within normal limits. There is no pneumothorax, pleural effusion, focal airspace consolidation or overt pulmonary edema. Degenerative changes involve the spine and shoulders. IMPRESSION: No acute cardiopulmonary process. The above report was generated using voice recognition software. It may contain grammatical, syntax or spelling errors. Electronically signed by: Abel Ramos M.D. 02/02/2017 3:33 PM Dictated Date/Time: 02/02/2017 3:32 PM Laboratory Results 02/02/17 14:52 Red Blood Count 4.00, Mean Corpuscular Volume 92.3, Mean Corpuscular Hemoglobin 32.0, Mean Corpuscular Hemoglobin Concent 34.7, Mean Platelet Volume 10.1, Neutrophils (%) (Auto) 69.8, Lymphocytes (%) (Auto) 20.2, Monocytes (%) (Auto) 9.1, Eosinophils (%) (Auto) 0.6, Basophils (%) (Auto) 0.3, Neutrophils # (Auto) 2.45, Lymphocytes # (Auto) 0.71, Monocytes # (Auto) 0.32, Eosinophils # (Auto) 0.02, Basophils # (Auto) 0.01 02/02/17 14:52 Test 02/02/17 14:52 02/02/17 15:20 White Blood Count 3.51 K/uL (4.8-10.8) Red Blood Count 4.00 M/uL (4.7-6.1) Hemoglobin 12.8 g/dL (14.0-18.0) Hematocrit 36.9 % (42-52) Mean Corpuscular Volume 92.3 fL (80-100) Mean Corpuscular Hemoglobin 32.0 pg (25-34) Mean Corpuscular Hemoglobin Concent 34.7 g/dl (32-36) Platelet Count 133 K/uL (130-400) Mean Platelet Volume 10.1 fL (7.4-10.4) Neutrophils (%) (Auto) 69.8 % Lymphocytes (%) (Auto) 20.2 % Monocytes (%) (Auto) 9.1 % Eosinophils (%) (Auto) 0.6 % Basophils (%) (Auto) 0.3 % Neutrophils # (Auto) 2.45 K/uL (1.4-6.5) Lymphocytes # (Auto) 0.71 K/uL (1.2-3.4) Monocytes # (Auto) 0.32 K/uL (0.11-0.59) Eosinophils # (Auto) 0.02 K/uL (0-0.5) Basophils # (Auto) 0.01 K/uL (0-0.2) RDW Standard Deviation 45.4 fL (36.4-46.3) RDW Coefficient of Variation 13.5 % (11.5-14.5) Immature Granulocyte % (Auto) 0.0 % Immature Granulocyte # (Auto) 0.00 K/uL (0.00-0.02) Prothrombin Time 10.7 SECONDS (9.0-12.0) Prothromb Time International Ratio 1.0 (0.9-1.1) Activated Partial Thromboplast Time 28.0 SECONDS (21.0-31.0) Partial Thromboplastin Ratio 1.1 Anion Gap 9.0 mmol/L (3-11) Est Creatinine Clear Calc Drug Dose 103.8 ml/min Estimated GFR () 102.3 Estimated GFR (Non- 88.3 BUN/Creatinine Ratio 16.6 (10-20) Calcium Level 9.0 mg/dl (8.5-10.1) Magnesium Level 1.5 mg/dl (1.8-2.4) Total Bilirubin 0.6 mg/dl (0.2-1) Direct Bilirubin 0.2 mg/dl (0-0.2) Aspartate Amino Transf (AST/SGOT) 65 U/L (15-37) Alanine Aminotransferase (ALT/SGPT) 107 U/L (12-78) Alkaline Phosphatase 83 U/L (45-117) Total Creatine Kinase 173 U/L (39-308) Creatine Kinase MB 2.4 ng/ml (0.5-3.6) Creatine Kinase MB Ratio 1.4 (0-3.0) Troponin I < 0.015 ng/ml (0-0.045) Total Protein 6.9 gm/dl (6.4-8.2) Albumin 3.2 gm/dl (3.4-5.0) Beta-Hydroxybutyric Acid 1.20 mg/dL (0.2-2.81) Thyroid Stimulating Hormone (TSH) 1.780 uIu/ml (0.300-4.500) Ethyl Alcohol mg/dL < 3.0 mg/dl (0-3) Urine Color YELLOW Urine Appearance CLEAR (CLEAR) Urine pH 5.5 (4.5-7.5) Urine Specific [place]quin 1.017 (1.000-1.030) Urine Protein 2+ (NEG) Urine Glucose (UA) 3+ (NEG) Urine Ketones NEG (NEG) Urine Occult Blood TRACE (NEG) Urine Nitrite NEG (NEG) Urine Bilirubin NEG (NEG) Urine Urobilinogen NEG (NEG) Urine Leukocyte Esterase NEG (NEG) Urine WBC (Auto) 1-5 /hpf (0-5) Urine RBC (Auto) 5-10 /hpf (0-4) Urine Hyaline Casts (Auto) 1-5 /lpf (0-5) Urine Epithelial Cells (Auto) 10-20 /lpf (0-5) Urine Bacteria (Auto) 1+ (NEG) Urine Pathogenic Casts 0-3 GRANULAR CASTS /lpf (0) Urine Opiates Screen NEG (NEG) Urine Methadone, Qualitative NEG (NEG) Urine Barbiturates NEG (NEG) Urine Phencyclidine (PCP) Level NEG (NEG) Ur Amphetamine/Methamphetamine NEG (NEG) MDMA (Ecstasy) Screen NEG (NEG) Urine Benzodiazepines Screen NEG (NEG) Urine Cocaine Metabolite NEG (NEG) Urine Marijuana (THC) NEG (NEG) Laboratory results per my review. Medications Administered Medications (Trade) Dose Ordered Sig/Dav Route Start Time Stop Time Status Last Admin Dose Admin Lorazepam (Ativan Inj) 1 mg NOW STAT IV 02/02/17 14:37 02/02/17 14:40 DC 02/02/17 15:12 1 MG Thiamine HCl (Vitamin B-1 Inj) 100 mg NOW STAT IV 02/02/17 14:37 02/02/17 14:40 DC 02/02/17 15:12 100 MG Magnesium Sulfate (Magnesium Sulfate) 1 gm NOW STAT IV 02/02/17 16:37 02/02/17 16:38 DC 02/02/17 16:48 1 GM ECG Indication: syncope Rate (beats per minute): 91 Rhythm: normal sinus Findings: no ectopy, other (No STS abnormalities) Comparison ECG Date: 12/12/16 Change: no significant change ED Course 1427: The patient was evaluated in room B7. A complete history and physical examination were performed. 1437: Ordered Thiamine HCl 100 IV, Ativan Inj 1 mg IV 1637: Ordered Magnesium Sulfate 1 gm IV 1719: Upon reevaluation, the patient is resting. I discussed the results and treatment plan with him. He verbalized agreement of the treatment plan. He was discharged home. Medical Decision Differential diagnosis: Etiologies such as vasovagal event, infection, hypoglycemia, electrolyte abnormalities, cardiac sources, intracerebral event, toxicologic, neurologic, as well as others were entertained. Nursing notes reviewed. Additional history is obtained from the patient's previous records. The patient is a 51-year-old male who presented to emergency department after having a syncopal episode. The patient has a long history of alcohol abuse and he has been through alcohol detox and rehabilitation in the past. He was recently through detox and rehabilitation but started using alcohol. Days ago. He did not have a definite alcohol-related seizure but it does sound as though the patient had a syncopal episode. He was treated with Ativan and thiamine in the emergency department. He was reevaluated multiple times. I discussed the patient's laboratory and radiographic studies with him. On subsequent reevaluation he was feeling much better. He was encouraged to continue all medications as prescribed. He was started on a Librium taper with the help of the pharmacist. He was also encouraged to discuss the possibility with his family doctor that he may require further studies such as an echocardiogram or Holter monitor to further evaluate the cause of his passing out episode. Otherwise he was encouraged to return to the emergency department or call crisis if symptoms change worsen or the need arises. Medication Reconcilliation Current Medication List: was personally reviewed by me Blood Pressure Screening Patient's blood pressure: Elevated blood pressure Blood pressure disposition: Elevated BP felt to be situational Impression Primary Impression: Syncope Additional Impressions: Alcohol withdrawal Hypomagnesemia Scribe Attestation The scribe's documentation has been prepared under my direction and personally reviewed by me in its entirety. I confirm that the note above accurately reflects all work, treatment, procedures, and medical decision making performed by me. Departure Information Dispostion Home / Self-Care Prescriptions Chlordiazepoxide (Librium) 10 Mg Cap 10 MG PO DIRECTED, #18 CAP Prov: Maurice Kate, DO 02/02/17 Referrals Fani Salas D.O. Forms HOME CARE DOCUMENTATION FORM, IMPORTANT VISIT INFORMATION, Work Instructions Patient Instructions Alcoholism, My [facility], Syncope Additional Instructions Call your family doctor in the morning to schedule a follow-up appointment. Rest and avoid any strenuous activity. Discuss with your doctor the possibility that you may require further studies such as an echocardiogram and a Holter monitor to further evaluate the cause of your passing out episode. You may also require an MRI the brain. Return to the emergency department immediately if symptoms change worsen or the need arises. Here of the instructions on how to take your Librium. Take 2 capsules every 6 hours on Day 1, Take 2 capsules every 8 hours on day 2, Take 1 capsule every 8 hours on day 3. Take one capsule in the morning on Day 4 Take this paper to the pharmacy with you when you get your prescription filled. Problem Qualifiers Primary Impression: Syncope Syncope type: unspecified Qualified Codes: R55 - Syncope and collapse Additional Impressions: Alcohol withdrawal Complication of substance-induced condition: uncomplicated Qualified Codes: F10.230 - Alcohol dependence with withdrawal, uncomplicated
[2017-02-02 15:00] VITALS: TEMP 36.6; Ht 175.3 cm; Wt 101.9 kg
[2017-02-02 15:02] VITALS: O2SAT 95
[2017-02-02 15:06] LABS: BASO % 0.3 %; BASO ABS # 0.01 K/uL (0-0.2); COMPLETE YES; EOS % 0.6 %; HEMATOCRIT 36.9 % (42-52); LYMPH % 20.2 %; LYMPH ABS # 0.71 K/uL (1.2-3.4); MEAN CELL VOLUME 92.3 fL (80-100); MEAN CORPUSCULAR HGB CONC 34.7 g/dl (32-36); MEAN PLATELET VOLUME 10.1 fL (7.4-10.4); MONO % 9.1 %; NEUT % 69.8 %; PLATELET COUNT 133 K/uL (130-400); WHITE BLOOD COUNT 3.51 K/uL (4.8-10.8)
[2017-02-02] MEDS ORDERED: MULT-506 PO (15:14)
[2017-02-02] MEDS ORDERED: NRN600 PO (15:14)
[2017-02-02] MEDS ORDERED: VENL150T33 PO (15:14)
[2017-02-02] MEDS ORDERED: MELA1TAB5 PO (15:14)
[2017-02-02] MEDS ORDERED: TRAZ100T29 PO (15:14)
[2017-02-02] MEDS ORDERED: NALT50TA5 PO (15:14)
[2017-02-02] MEDS ORDERED: ASPI325T39 PO (15:14)
[2017-02-02] MEDS ORDERED: LISI40TA PO (15:14)
[2017-02-02 15:17] LABS: PARTIAL THROMBOPLASTIN RATIO 1.1; PROTHROMBIN TIME (PATIENT) 10.7 SECONDS (9.0-12.0)
[2017-02-02 15:26] LABS: ALT/SGPT 107 U/L (12-78); BLOOD UREA NITROGEN 16 mg/dl (7-18); BUN/CREATININE RATIO 16.6 (10-20); CARBON DIOXIDE 25 mmol/L (21-32); CHLORIDE 95 mmol/L (98-107); CREATININE 0.98 mg/dl (0.60-1.40); GLUCOSE 325 mg/dl (70-99); MAGNESIUM 1.5 mg/dl (1.8-2.4); POTASSIUM 4.6 mmol/L (3.5-5.1); SODIUM 130 mmol/L (136-145)
[2017-02-02 15:28] LABS: AST/SGOT 65 U/L (15-37)
--- NOTE | 2017-02-02 15:34 | DIAGNOSTIC IMAGING REPORT ---
CHEST ONE VIEW PORTABLE HISTORY: 51 years-old Male EVALUATE ALTERED MENTAL STATUS/WEAKNESS acute altered mental status COMPARISON: Chest radiograph 12/11/2016 TECHNIQUE: Portable upright AP view of the chest FINDINGS: Cardiac mediastinal and hilar silhouettes are within normal limits. There is no pneumothorax, pleural effusion, focal airspace consolidation or overt pulmonary edema. Degenerative changes involve the spine and shoulders. IMPRESSION: No acute cardiopulmonary process. The above report was generated using voice recognition software. It may contain grammatical, syntax or spelling errors. Electronically signed by: Abel Ramos M.D. 02/02/2017 3:33 PM Dictated Date/Time: 02/02/2017 3:32 PM
[2017-02-02 15:37] LABS: ALKALINE PHOSPHATASE 83 U/L (45-117); CKMB/CK RATIO 1.4 (0-3.0)
--- NOTE | 2017-02-02 15:48 | DIAGNOSTIC IMAGING REPORT ---
CT HEAD WITHOUT CONTRAST (CT) CLINICAL HISTORY: Altered mental status. Weakness. COMPARISON STUDY: No previous studies for comparison. TECHNIQUE: Axial CT of the brain is performed from the vertex to the skull base. IV contrast was not administered for this examination. A dose lowering technique was utilized adhering to the principles of ALARA. CT DOSE: 884.08 mGy.cm FINDINGS: No intra or extra-axial mass lesions are visualized. There is no CT evidence of acute cortical infarction. There is no evidence of midline shift. There is no acute hemorrhage. No calvarial fractures are visualized. There is ossification of the anterior falx. There is no evidence of pathologic ventricular dilatation. There is mucosal thickening within the left maxillary sinus. There is an inflammatory polyp/retention cyst within the sphenoid sinus. IMPRESSION: No acute intracranial findings Electronically signed by: David Meneses M.D. 02/02/2017 3:47 PM Dictated Date/Time: 02/02/2017 3:46 PM
[2017-02-02 15:51] LABS: URINE APPEARANCE CLEAR (CLEAR); URINE BILIRUBIN NEG (NEG); URINE COLOR YELLOW; URINE NITRITE NEG (NEG); URINE PH 5.5 (4.5-7.5); URINE SPECIFIC GRAVITY 1.017 (1.000-1.030); UROBILINOGEN NEG (NEG)
[2017-02-02 15:55] LABS: MANUAL MICROSCOPIC REQUIRED? NO; REVIEW REQ? YES
[2017-02-02 16:05] LABS: URINE PATH CASTS 0-3 GRANULAR CASTS /lpf (0)
[2017-02-02] MEDS ORDERED: MAGNESIUM SULFATE 1GM / D5W 1 GM BAG IV STA (16:37)
[2017-02-02] MEDS ORDERED: CHLO10CA7 PO (17:06)
[2017-02-02 17:44] VITALS: BP 152/100; PULSE 75; O2SAT 95
[2017-02-02 19:40] LABS: BENZODIAZEPINE, URINE NEG (NEG); COCAINE,URINE NEG (NEG); PHENCYCLIDINE, URINE NEG (NEG)
== END 2017-02-02 17:45 | disposition home or self-care (01) ==
LOC: EDBD 14:26 → C.EDB 14:27
DX: R55 Syncope and collapse (principal); F10.239 Alcohol dependence with withdrawal, unspecified; E83.42 Hypomagnesemia; E11.9 Type 2 diabetes mellitus without complications; I10 Essential (primary) hypertension; F41.9 Anxiety disorder, unspecified; F17.200 Nicotine dependence, unspecified, uncomplicated; Z79.82 Long term (current) use of aspirin; Z79.899 Other long term (current) drug therapy

== ENCOUNTER 2019-01-01 10:34 | Inpatient (IN) ==
[2019-01-01] MEDS ORDERED: METOPROLOL TARTRATE 1 MG/ML VIAL IV STA (11:09)
[2019-01-01] MEDS ORDERED: AMLODIPINE BESYLATE 5 MG TAB PO ONE (11:09)
[2019-01-01] MEDS ORDERED: ASPIRIN CHEW 324 MG PO STA (11:09)
[2019-01-01] MEDS ORDERED: THIAMINE HCL 200 MG in SODIUM CHLORIDE 0.9% 50 ML IV STA (11:12)
[2019-01-01 11:25] LABS: Basophils # (auto) 0.01 K/uL (0-0.2); Basophils % (auto) 0.2 %; Eosinophils # (auto) 0.04 K/uL (0-0.5); Eosinophils % (auto) 0.8 %; Hematocrit (blood only) 37.4 % (42-52); Hemoglobin 12.7 g/dL (14.0-18.0); Immature Granulocytes # (auto) 0.02 K/uL (0.00-0.02); Immature Granulocytes % (auto) 0.4 %; Lymphocytes # (auto) 1.34 K/uL (1.2-3.4); Lymphocytes % (auto) 25.8 %; Mean Corpuscular Hemoglobin 31.2 pg (25-34); Mean Corpuscular Volume 91.9 fL (80-100); Mean Platelet Volume 9.5 fL (7.4-10.4); Monocytes # (auto) 0.79 K/uL (0.11-0.59); Monocytes % (auto) 15.2 %; Neutrophils % (auto) 57.6 %; Platelet Count 206 K/uL (130-400); RDW Coefficient of Variation 14.7 % (11.5-14.5); RDW Standard Deviation 48.7 fL (36.4-46.3); Red Blood Count 4.07 M/uL (4.7-6.1)
--- NOTE | 2019-01-01 11:25 | XRay Report ---
XR chest 1V portable CLINICAL HISTORY: Atypical chest pain COMPARISON STUDY: 02/02/2017 FINDINGS: The heart is at the upper limits of normal in size. There is mild interstitial prominence s imilar to the prior study. There is no overt failure. There is no focal pulmonary consolidation. Ther e are no pleural effusions. There is a linear opacity at the left lung base likely representing subse gmental atelectatic change[ IMPRESSION: No active disease in the chest. Electronically signed by: David Meneses M.D. 01/01/2019 11:23 AM
[2019-01-01 11:38] LABS: Partial Thromboplastin Ratio 1.2; Partial Thromboplastin Time 33.6 Seconds (21.0-31.0); Prothrombin Time 10.4 Seconds (9.0-12.0)
[2019-01-01 11:42] LABS: Albumin Level 2.9 gm/dl (3.4-5.0); Calcium 8.6 mg/dl (8.5-10.1); Creatinine Clr Calc Pharmacy 120.6 ml/min; Est GFR (African American) 112.3; Est GFR (Non-African American) 96.9
[2019-01-01 11:47] LABS: Albumin Globulin Ratio 0.7 (0.9-2); Bilirubin,Total 0.4 mg/dl (0.2-1); Globulin 3.9 gm/dl (2.5-4.0); Total Protein 6.8 gm/dl (6.4-8.2)
[2019-01-01] MEDS ORDERED: HEPARIN SODIUM/DEXTROSE 25,000 UNITS/500 ML BAG IV SCH (12:30)
[2019-01-01] MEDS ORDERED: HEPARIN SOD (PORCINE) 1000 UNIT/ML 10 ML VIAL ONE (12:51)
--- NOTE | 2019-01-01 13:35 | Cardiology Consultation ---
Date of Consultation January 01, 2019 Assessment & Plan (1) NSTEMI (non-ST elevated myocardial infarction): At this time the patient is pain-free however his troponin is significantly elevated and he has moderate hypokinesis of the inferior and inferior lateral mccarty on echocardiogram. I believe the most prudent course of action at this point will be to proceed directly with cardiac catheterization for direct visualization of his coronary anatomy. The benefits, risks and alternatives were discussed in great lengths. He states that he understands, he is accepting of the risk and wishes to proceed with a cardiac catheterization. Further recommendations to follow results of the cath. (2) Polysubstance abuse: Would check a tox screen (3) CATALINO (obstructive sleep apnea): (4) Obesity: (5) Tobacco use disorder: Will require cessation counseling prior to discharge (6) Alcoholism: (7) HTN (hypertension): Will continue lisinopril for now especially given its nephro protective benefits for diabetics We will further tailor medical regimen after catheterization History of Present Illness Reason for Consultation: nstemi Requesting Physician: Dr. Kate History of Present Illness It was my pleasure to see Mr. Dillard in urgent consultation today January 01, 2019. He is a very pleasant 53-year-old gentleman who presented to [facility] emergency department as per the direction of CV IM today after voicing complaints of chest discomfort. He states that approximately 3 months ago he went to [place] to undergo alcohol rehab. Ever since completing the rehab his nose he is been getting chest pain. He describes it as a charley horse sensation underneath his ribs that is rather severe. He states it could either happen at rest or with exertion but does seem to happen more often with exertion. He also notes that he is very short of breath when trying to walk he lives in [place] currently and he notes that he has a great deal of difficulty walking the hills and has to stop frequently to catch his breath. He has been attributing this to his smoking. He then presented to see [facility] today for regular follow-up of his medication refills and upon questioning he admitted to his symptoms and he was sent to the emergency department. In the emergency department his EKG was unremarkable however initial troponin level was drawn and came back positive at 5. He is not having symptoms at the time and I was contacted by Dr. Evans. The patient was started on IV heparin and I saw the patient soon after at the bedside. He states his most recent episode of chest discomfort was this morning when he was walking into [employer]. Allergies Allergy/AdvReac Type Severity Reaction Status Date / Time No Known Allergies Allergy Unverified 01/01/19 12:42 Home Medications Home Medications Medication Instructions Recorded Confirmed Type lisinopril 40 mg PO DAILY 12/10/17 01/01/19 History trazodone 200 mg PO HS 12/10/17 01/01/19 History venlafaxine 150 mg PO DAILY 12/10/17 01/01/19 History Levemir FlexTouch U-100 Insuln 40 unit SUBCUT DAILY 12/14/17 01/01/19 History Novolog Flexpen U-100 Insulin 1 units SUBCUT UD 12/16/17 01/01/19 History Patient History Medical History Tobacco use disorder (Chronic) Transaminitis (Acute) Hypocalcemia (Acute) Metabolic acidosis (Acute) Lumbago (Chronic) Neuropathy (Chronic) Alcoholism (Chronic) HTN (hypertension) (Chronic) Anxiety (Chronic) Type 2 diabetes mellitus (Chronic) Hematuria (Acute) Non compliance with medical treatment (Chronic) NSTEMI (non-ST elevated myocardial infarction) CATALINO (obstructive sleep apnea) Obesity Polysubstance abuse Lumbago Family History Other No significant family history Social History Preferred Language: Liberian Communication Ability: Effective 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 No acute distress. HEENT: Normocephalic, atraumatic. Pupils equal, round and reactive to light and accommodation. Extraocular muscles are intact. Anicteric sclera. Moist mucous membranes. Neck: No JVD. No bruit. Cardiovascular: Regular. Positive S-4. Normal S-1 and S-2. No S-3. No murmurs or rubs. Pulmonary: Clear to auscultation B/L. No rales, rhonchi or wheezing Abdomen: Bowel sounds x 4, soft. No rebound, guarding or tenderness. No organomegaly. Extremities: No clubbing, cyanosis or edema. +2 pedal pulses bilaterally. Skin: Warm and dry. Results & Data Vital Signs (Past 12 Hours) Vital Signs Temp Pulse Resp BP Pulse Ox 01/01/19 12:30 70 16 143/84 H 97 01/01/19 12:00 74 14 154/89 H 96 01/01/19 11:41 86 166/108 H 01/01/19 11:30 83 15 166/108 H 90 01/01/19 11:21 91 H 20 91 01/01/19 11:11 89 14 174/98 H 91 01/01/19 10:44 36.9 C 91 H 20 179/129 H 91 01/01/19 10:32 89 16 179/129 H 90
[2019-01-01] MEDS ORDERED: NiCARDipine HCL INJ 2.5 MG/ML 10 ML AMP ONE (13:40)
[2019-01-01] MEDS ORDERED: HEPARIN (PORCINE) 1000 UNIT/ML 10 ML (CATH LAB USE ONLY) ONE (13:40)
[2019-01-01] MEDS ORDERED: MIDAZOLAM HCL 1 MG/ML 2ML VIAL ONE (13:41)
[2019-01-01] MEDS ORDERED: fentaNYL citrate 100 MCG/2 ML VIAL ONE (13:41)
[2019-01-01] MEDS ORDERED: NITROGLYCERIN/D5W 100MCG/ML 20ML SYR ONE ×2 (13:41→14:12)
[2019-01-01] MEDS ORDERED: CLOPIDOGREL BISULFATE 300 MG TAB ONE (14:56)
[2019-01-01] MEDS ORDERED: INFLUENZA ADMINISTRATION CHARGE ONE ×2 (15:00→16:00)
[2019-01-01] MEDS ORDERED: INFLUENZA VIRUS QUAD VACCINE 0.5 ML SYR IM ONE ×2 (15:00→16:00)
--- NOTE | 2019-01-01 15:00 | Pre Anesthesia Assessment ---
Date of Service January 01, 2019 Pre Sedation Assessment Vital Signs Temp Pulse Resp BP Pulse Ox 01/01/19 13:49 92 H 19 175/119 H 96 01/01/19 13:30 92 H 19 175/119 H 96 01/01/19 13:00 71 15 154/94 H 96 01/01/19 12:30 70 16 143/84 H 97 01/01/19 12:00 74 14 154/89 H 96 01/01/19 11:41 86 166/108 H 01/01/19 11:30 83 15 166/108 H 90 01/01/19 11:21 91 H 20 91 01/01/19 11:11 89 14 174/98 H 91 01/01/19 10:44 98.4 F 91 H 20 179/129 H 91 01/01/19 10:32 89 16 179/129 H 90 Cardiovascular RRR, no murmur, no edema Respiratory normal respiratory effort, lungs clear to auscultation Pre-Sedation Airway Assessment Smoking Status: Current every day smoker Hx Sleep Apnea: No Hx Difficult Intubation: No Short, Thick Neck: No Thyromental Distance: > or= 3.5 Finger Breadths Oral Cavity: + WNL Mallampati Class: II ASA: ASA3 Procedure Planning Contraindications for Sedation: none Current Medications Reviewed: Yes Notes The planned sedation has been discussed with the patient. Informed Consent was obtained. I have identified the patient, determined the appropriateness of sedation and have assessed the patient immediately prior to the procedure. All medicine(s) and interventions are by my order.
--- NOTE | 2019-01-01 15:00 | Post Anesthesia Assessment ---
Date of Service January 01, 2019 Post Sedation Assessment Vital Signs Temp Pulse Resp BP Pulse Ox 01/01/19 13:49 92 H 19 175/119 H 96 01/01/19 13:30 92 H 19 175/119 H 96 01/01/19 13:00 71 15 154/94 H 96 01/01/19 12:30 70 16 143/84 H 97 01/01/19 12:00 74 14 154/89 H 96 01/01/19 11:41 86 166/108 H 01/01/19 11:30 83 15 166/108 H 90 01/01/19 11:21 91 H 20 91 01/01/19 11:11 89 14 174/98 H 91 01/01/19 10:44 98.4 F 91 H 20 179/129 H 91 01/01/19 10:32 89 16 179/129 H 90 Recovery Score Activity: Moves 4 extremities Respiration: Deep Breath/Cough Circulation: +/-20% PreAnes Value Consciousness: Fully Awake Oxygen Saturation: O2 needed for >90% Discharge Sedation Level of Care: Fast Track Phase II Post Sedation Plan On clinical assessment, the patient appears to have tolerated the sedation without complications. Patient is recovering as anticipated. Patient will continue to be monitored by nursing and may be discharged when sedation discharge criteria are met per below protocol. Upon Completions of procedure and additional 15 minutes continue every 5 minute vital signs and the P.A.R. score; then discharge to a Phase I or Fast Track to Phase II per the following guidelines: * Discharge Patient to appropriate Phase II area if PAR is 8 or greater or return to pre- procedure baseline. The post - procedure orders will be as d irected. * If PAR score is less than 8 or not return to pre-procedure baseline then patient will follow Phase I monitoring till PAR is reached for Phase II. The Phase I may be done in procedure room or may call to secure a Phase I area. * If naloxone or flumazenil are used for reversal, hold in Phase I for continued monitoring from when last reversal dose was given for a minimum of 60 minutes or longer pending the nurse and/or physician discretion of patient condition before discharge to Phase II. Please call the Sedation Physician to re-evaluate and complete post-note for discharge to Phase II area. Do NOT discharge from procedure sedation or Phase 1 until post- sedation evaluation note is complete by procedure /sedation MD Sedation Discharge Instructions to be given to the patient at discharge to home.
--- NOTE | 2019-01-01 15:10 | Cardiac Catheterization ---
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 Cardiac Status Clinical evaluation leading to the procedure CAD Presenation: Non STEMI Anginal Classification: CCS IV Heart Failure: No Cardiogenic Shock within 24 Hours: No Cardiac Arrest within 24 Hours: No Imaging Studies Past 6 Months: Yes Stress Studies Past 6 Months: No Diagnostic Physicians Name: Hany Guerrero MD Status: Elective Closure Device Percutaneous Entry Location: Radial Closure Device: Radial Band Recommendations: PCI without planned CABG PCI Indication: PCI for high risk Non-BULMARO Lesion Segment Name: OM1 Culprit Artery: Yes Stenosis Prior to Rx (%): 95 Chronic Total Occlusion: No IVUS: No FFR: No Pre-Procedure MALOU Flow: 3 Previously Treated Lesion: No Lesion Complexity: Non-High/Non-C Lesion Length (mm): 12 Thrombus Present: Yes Bifurcation Lesion: No Guidewire Across Lesion: Stenosis Post-Procedure (%): 0 Post-Procedure MALOU Flow: 3 Devices(s) Deployed: Yes Yes Intraprocedure Events Significant Disection: No Perforation: No Cardiac Cath Procedure Full Procedure Date January 01, 2019 AUC Score AUC Score: 8 Post-Procedure Diagnosis Post-Procedure Diagnosis: Severe CAD Procedure(s) Performed Procedure(s) Performed: Coronary Angiography and Drug Eluting Stent Linux System Engineer Hany Guerrero MD Elementary Librarian(s) Favio Estimated Blood Loss Estimated Blood Loss: 15 Medication(s) Medication(s): Clopidogrel, Fentanyl, Heparin, Lidocaine 1%, Nicardipine, Nitroglycerin and Versed Summary of Findings Indication: High risk NSTEMI Access: 6 Fr right radial artery Catheters: [place], EBU 3.5 guide Findings: LM -Short, luminal irregularities LAD -moderate caliber vessel, 40-50% mid segment disease, small distal vessel with luminal irregularities. Moderate caliber second diagonal with 20 to 30% proximal disease Circumflex -large caliber vessel mid segment luminal irregularities, gives off large OM1 with 95% acute proximal stenosis. RCA -large caliber vessel, dominant, mild diffuse mid segment disease, diffuse 50% distal disease. Right PDA with diffuse 50 to 60% ostial/proximal disease -- PCI -- Antithrombotic therapy: Heparin, clopidogrel Procedure: Left main cannulated with EBU 3.5 guide Airplane Captain 50 wire wire passed across lesion into distal vessel OM 1 lesion predilated with 2.5 compliant balloon Dilated lesion stented with 3.0 x 18 mm Newell drug-eluting Stent post-dilated with 3.5 noncompliant balloon IC vasodilators administered for spasm Post procedure MALOU 3 flow, stent well expanded with minimal residual stenosis and no apparent cardiac complications. Arterial Closure: TR band Summary: 1. Severe single vessel coronary artery disease -95% acute proximal OM1 2. Moderate non-culprit coronary artery disease 50% diffuse distal RCA, 50 to 60% proximal right PDA 40 to 50% mid LAD 3. Successful PCI of proximal OM 1 with single drug-eluting stent (3.0 x 18 mm Newell; postdilated with 3.5 NC). Recommendations: To PCU for continued monitoring Loaded with clopidogrel 600 mg in cath Continue dual-antiplatelet therapy for at least one year Continue statin, and ASCVD risk factor modification Consult cardiac Rehab Hemodynamics Rest Ao:: 131/86/106 Final Ao: 127/77/98 LV: -- Recommendations Recommendations: PCI without planned CABG Specimens Specimens: None Radiation Exposure (mGy) 2928 Contrast (mls) 130 Drains Drains: none Anesthesia moderate Procedural Complication(s) None Disposition PCU I attest to the content of the Intraoperative Record and any orders documented therein. Any exceptions are noted below.
[2019-01-01] MEDS ORDERED: SODIUM CHLORIDE 0.9% 1000ML 1,000 ML IV SCH (15:15)
[2019-01-01] MEDS: METOPROLOL TARTRATE 25 MG TAB PO SCH ×2 (17:14→23:34)
[2019-01-01 18:01] LABS: Amphetamines+Metham, Urine Neg (Neg); Barbiturates, Urine Neg (Neg); Benzodiazepine, Urine Pos (Neg); Cocaine, Urine Neg (Neg); MDMA (Ecstacy), Urine Neg (Neg); Methadone, Urine Neg (Neg); Opiate, Urine Neg (Neg); Phencyclidine, Urine Neg (Neg)
[2019-01-01] MEDS ORDERED: LORazepam 1 MG TAB PO PRN (18:22)
[2019-01-01] MEDS ORDERED: TRAZODONE HCL 50 MG TAB PO PRN (18:23)
[2019-01-01] MEDS ORDERED: CARBOHYDRATES FOR HYPOGLYCEMIA PO PRN (18:24)
[2019-01-01] MEDS ORDERED: GLUCAGON FOR INJ 1 MG VIAL SQ PRN (18:24)
[2019-01-01] MEDS ORDERED: DEXTROSE 50% 50 ML SYRINGE IV PRN (18:24)
[2019-01-01] MEDS ORDERED: GLUCOSE 10 TABS/TUBE PO PRN (18:24)
[2019-01-01] MEDS ORDERED: GLUCOSE 40% GEL 15 GM TUBE PO PRN (18:24)
--- NOTE | 2019-01-01 18:26 | History & Physical Report ---
Date of Service January 01, 2019 Assessment & Plan (1) Non-ST elevation NM (NSTEMI): (2) History of cardiac catheterization: This is a 53yo M with a PMH of DM II on insulin, HTN, depression, h/o alcohol use disorder and other medical problems listed below who presents from [facility] after he had mentioned intermittent chest pain and was found to have NSTEMI. -Initial troponin of 4.98 in ED. 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 Started on beta arnold, statin and aspirin per Dr. Martinez. Continuing lisinopril -Continue dual-antiplatelet therapy for at least one year (3) Type 2 diabetes mellitus: Most recent a1c >12 per patient. Repeat pending -Hold home agents -Basal bolus insulin while in-patient -BSG AC HS (4) HTN (hypertension): Initially elevated but normotensive now -Continue home lisinopril, metoprolol Q6H -Further tailoring of antihypertensives per cards tomorrow (5) Alcohol use disorder: Recently started drinking beer again. Endorses 3 beers last night -No evidence of withdrawal at this time -At risk protocol with ativan -Thiamine and folic acid qAM (6) Tobacco use disorder: History of 39 pack years -Smoking cessation counseling ordered (7) Mood disorder: Continue venlafaxine Code status: FULL PCP: [facility] Dispo: Admitted to telemetry. Plan to return home once medically stable. Patient seen in collaboration with Dr. Troy. Please see addendum. History of Present Illness Chief Complaint: chest pain Primary Care Provider: NO PCP This is a 53yo M with a PMH of DM II on insulin, HTN, depression, h/o alcohol use disorder and other medical problems listed below who presents from [facility] after he had mentioned intermittent chest pain. Patient returned from sober living house in [place] a few months ago and has been experiencing intermittent chest pain since his return. Describes pain as " charley horse-like" and under bilateral ribs with radiation to arms. Also as sociated with shortness of breath. Has happened intermittently and usually occurs in the setting of exertion. Has become more short of breath with normal walking around town as well. Denies any personal history of coronary artery disease. History of CAD requiring CABG in both grandfathers. Recently established care at [facility] and was told that his A1c was very high, he thinks around 14. Resumed a stricter insulin regimen since then and was due for an A1c checked today. Also recently started drinking a few beers in the past 2 weeks due to sciatic back pain. Most recent drink was 3 beers last night. States that understands what withdrawal feels like and has had 2 seizures during the withdrawal process in the past. Not experiencing tremors or anxious feelings he has had during past withdrawal. Smokes 1 ppd x 39 years. In ED, patient was found to have troponin of 4.98 initially and was evaluated by Dr. Martinez. Bedside 2D echo with moderate concentric LVH, mildly reduced systolic function with EF 45-50% and moderate hypokinesis of anterolateral and inferior lateral mccarty. Underwent cardiac cath with PCI to ELIESER to prox. OM. Feeling well post-procedure. Denies fever, chills, headache, lightheadedness, chest pain, palpitations, shortness of breath, abdominal pain, nausea, vomiting, dysuria, constipation or diarrhea. Allergies Allergy/AdvReac Type Severity Reaction Status Date / Time No Known Allergies Allergy Unverified 01/01/19 12:42 Home Medications Home Medications Medication Instructions Recorded Confirmed Type venlafaxine 150 mg PO DAILY 12/10/17 01/01/19 History Levemir FlexTouch U-100 Insuln 40 unit SUBCUT HS 12/14/17 01/01/19 History Novolog Flexpen U-100 Insulin 1 units SUBCUT UD 12/16/17 01/01/19 History lisinopril 40 mg PO DAILY 01/01/19 01/01/19 History trazodone 50 mg PO HS PRN 01/01/19 01/01/19 History Past Med/Surg History Medical History Alcohol use disorder (Chronic) Mood disorder (Chronic) Tobacco use disorder (Chronic) Neuropathy (Chronic) HTN (hypertension) (Chronic) Type 2 diabetes mellitus (Chronic) NSTEMI (non-ST elevated myocardial infarction) (Acute) CATALINO (obstructive sleep apnea) (Chronic) Obesity (Chronic) Surgical History History of cardiac catheterization (Chronic) 1 ELIESER to proximal OM by Dr. Guerrero on 01/01/19 History of lymph node biopsy (Chronic) Family History Other Heart disease Social History Preferred Language: Norwegian Communication Ability: Effective Ergonomics Technician Required: No Beliefs That Will Affect Care: None marital status: Current Living Situation: Family current occupational status: unemployed Other Information That Helps Us Care for You: No Feels Safe at Home: Yes Safety Concerns: Feels Safe At This Time Smoking Status: Current every day smoker Tobacco Type: cigarettes ; Years Smoked: 39 ; Cigarettes Per Day: 20/ day ; Hx Alcohol Use: Yes Alcohol type: beer Alcohol type Comment: Endorsing 3-5 beers intermittently over past few weeks. H/o heavy use Hx Substance Use: No Review of Systems Review of Systems: At least ten systems reviewed and negative except as noted in the HPI. Physical Exam Physical Exam: General Appearance: WD/WN, vitals as above, NAD, sitting up in bed, pleasant, conversing easily Head: normocephalic, atraumatic Eyes: normal inspection, PERRL, conjunctivae normal, anicteric sclerae ENT: external ear and nose normal, oropharynx normal Neck: trachea midline, no thyromegaly normal visual inspection Respiratory: lungs clear to auscultation, no wheeze, rales, rhonchi. Normal insp/exp effort, no accessory muscle use Cardiovascular: regular rate, rhythm, no murmur appreciated, normal peripheral pulses. Vessels: no JVD or carotid bruit Chest: normal inspection of chest Abdomen/GI: normal bowel sounds, soft, nontender, no hepatosplenomegaly Extremities/Musculoskelatal: R wrist guard in place, no bleeding. No cyanosis or clubbing, extremities motor strength 5/5 Neurologic: PERRL, EOMI, no dysarthria CN's II-XI intact bilaterally and moves all extremities Psychiatric: A+Ox3, euthymic affect Skin: no rashes, normal color, warm/dry Results & Data Vital Signs (Past 12 Hours) Vital Signs Temp Pulse Pulse Resp BP BP Pulse Ox 01/01/19 17:55 89 17 138/83 95 01/01/19 17:36 75 01/01/19 16:55 91 H 17 181/108 H 95 01/01/19 16:25 74 17 163/93 H 94 01/01/19 15:55 66 18 188/110 H 96 01/01/19 15:40 72 18 145/85 H 93 01/01/19 15:25 66 17 135/78 92 01/01/19 15:10 70 16 144/88 H 96 01/01/19 15:09 77 17 150/81 H 95 01/01/19 13:49 92 H 19 175/119 H 96 01/01/19 13:30 92 H 19 175/119 H 96 01/01/19 13:00 71 15 154/94 H 96 01/01/19 12:30 70 16 143/84 H 97 01/01/19 12:00 74 14 154/89 H 96 01/01/19 11:41 86 166/108 H 01/01/19 11:30 83 15 166/108 H 90 01/01/19 11:21 91 H 20 91 01/01/19 11:11 89 14 174/98 H 91 01/01/19 10:44 36.9 C 91 H 20 179/129 H 91 01/01/19 10:32 89 16 179/129 H 90 Laboratory Results Short CBC 01/01/19 Range/Units 11:13 WBC 5.20 (4.8-10.8) K/uL Hgb 12.7 L (14.0-18.0) g/dL Hct 37.4 L (42-52) % Plt Count 206 (130-400) K/uL BMP 01/01/19 11:13 Sodium 138 Potassium 4.0 Chloride 106 Carbon Dioxide 26 BUN 20 H Creatinine 0.89 Glucose 218 H Calcium 8.6 Cardiac Enzymes 01/01/19 01/01/19 Range/Units 11:13 11:13 Total Creatine Kinase 211 (39-308) U/L CK-MB (CK-2) 4.0 H (0.5-3.6) ng/ml Troponin I 4.980 H* (0-0.045) ng/ml Liver Function 01/01/19 Range/Units 11:13 Total Bilirubin 0.4 (0.2-1) mg/dl AST 27 (15-37) U/L ALT 31 (12-78) U/L Alkaline Phosphatase 116 (45-117) U/L Albumin 2.9 L (3.4-5.0) gm/dl Diagnostic Findings CXR: IMPRESSION: No active disease in the chest. ECG Rhythm: normal sinus Findings: + nonspecific-ST abn Supervising Physician Co-Signing Physician Notes HISTORY: Record reviewed. Patient interviewed and examined in his room. Care coordinated with Katherine Velasquez PA-C. Please refer to her documentation for patient's history. Briefly, 53 YO M with history of hypertension, DM, smoking, and other problems. Seen at [facility] today to get established and get refills on his meds. There he mentioned that he been experiencing some intermittent chest pain. EKG was performed and demonstrated ST depression. Patient was referred to the ED. Serum troponin was elevated. Cardiology was consulted. It was felt that the patient had a non-ST elevation NM. Cardiac catheterization was recommended. Cath demonstrated multivessel disease with the culprit lesion being a 95% proximal stenosis of OM1. PCI with drug-eluting stent was performed. Patient doing well after the procedure. No chest pain or shortness of breath. EXAM: General- no distress Lungs- clear to auscultation; no respiratory distress Cardiovascular- RRR; no murmur; no gallop; no JVD; no pretibial edema Abdomen- + bowel sounds, soft, nontender Extremities- no cyanosis; no calf tenderness; right wrist bandaged, good capillary refill right fingers Neuro- alert, oriented Skin- warm & dry DATA: Troponin I = 0.980. Random glucose 218. Other lab studies as noted. Chest x-ray negative. EKG performed at 1044 reviewed and demonstrated normal sinus rhythm at 90/minute, [address] depression and lateral precordial leads. ASSESSMENT AND PLAN: Non-ST elevation myocardial infarction. Successful PCI of OM1 with drug-eluting stent performed. Antiplatelet therapy per Cardiology. Continue lisinopril. Started on metoprolol and atorvastatin. Check lipid profile. Diabetes mellitus type 2 usually managed with insulin. Random blood sugar 218 in the ED. Check hemoglobin A1c. Titrate insulin therapy. Patient is a smoker. Smoking cessation counseling. Patient drinks beer intermittently. Monitor for signs/symptoms of alcohol withdrawal per alcohol withdrawal protocol. Patient has limited finances. Medication options should be considered with most affordable appropriate medications prescribed. Patient may be eligible for medical assistance benefits. Please refer to MERON Velasquez's documentation for discussion of other issues.
[2019-01-01] MEDS ORDERED: INSULIN ASPART 100 UNITS/ML 3 ML PEN SC SCH (19:00)
[2019-01-01] MEDS: INSULIN ASPART 100 UNITS/ML 3 ML PEN SC SCH (20:26)
[2019-01-01] MEDS: INSULIN GLARGINE SOLOSTAR 100 UNITS/ML 3 ML PEN SC SCH (20:28)
--- NOTE | 2019-01-01 21:15 | Emergency Department Note ---
Entered by Dianne Zhang acting as a scribe for Maurice Kate DO History of Present Illness General Chief complaint: Chest Pain Source: patient History of Present Illness Onset (ago): week(s) (a few weeks ago) Location: chest Radiation: abdomen Pain Consistency: + intermittent Quality: + other (hard and tight, like a Charley Horse) Relieved By: + medication (Nitroglycerin) Associated symptoms: + other (left arm numbness, back pain, teeth pain, leg swelling, weight gain) The patient is a 53 year old male who presents to the Emergency Room with complaints of intermittent chest pain starting a few weeks ago. The patient states that today he went to [facility] for a checkup and to get his medications filled. He states that while there they were concerned about his blood pressure and pulse. He states that they did an EKG and told him that he needed to come to the ED, so they called an ambulance. He notes that they were concerned he may have had a few small heart attacks. He notes that they gave him a Nitroglycerin there, which offered relief. The patient states that over the last few weeks he has been having this chest pain in the center of his chest that radiates down into his abdomen. He states that it feels hard and tight. He reports that it reminds him of a Charley Horse. The patient states that along with it he has had this left arm numbness and back pain, but thought it was just from sleeping on the couch. He notes that he has had a pinched nerve in his back before so he just assumed it was that. The patient complains of intermittent teeth pain in the morning, but thought it was just due to some recent dental procedures. He complains of some leg swelling, but thinks it is due to being on his feet more. He complains of some weight gain, but thinks it is due to moving in with his daughter and her cooking. He notes that he had a stress test that was negative 4-5 years ago. He states he had it done because he was having chest pain, but they attributed it to anxiety. The patient notes that he smokes a pack of cigarettes a day and was 8 months sober until 3 weeks ago from alcohol. He notes that he know has been drinking 3-6 beers a day. Home Medications Home Medications Medication Instructions Recorded Confirmed Type venlafaxine 150 mg PO DAILY 12/10/17 01/01/19 History Levemir FlexTouch U-100 Insuln 40 unit SUBCUT HS 12/14/17 01/01/19 History Novolog Flexpen U-100 Insulin 1 units SUBCUT UD 12/16/17 01/01/19 History lisinopril 40 mg PO DAILY 01/01/19 01/01/19 History trazodone 50 mg PO HS PRN 01/01/19 01/01/19 History Allergies Allergy/AdvReac Type Severity Reaction Status Date / Time No Known Allergies Allergy Unverified 01/01/19 12:42 Past Med/Surg History Medical History Alcohol use disorder (Chronic) Mood disorder (Chronic) Tobacco use disorder (Chronic) Neuropathy (Chronic) HTN (hypertension) (Chronic) Type 2 diabetes mellitus (Chronic) NSTEMI (non-ST elevated myocardial infarction) (Acute) CATALINO (obstructive sleep apnea) (Chronic) Obesity (Chronic) Surgical History History of cardiac catheterization (Chronic) 1 ELIESER to proximal OM by Dr. Guerrero on 01/01/19 History of lymph node biopsy (Chronic) Family History Other Heart disease Social History Preferred Language: Faroese Communication Ability: Effective Survey Technologist Required: No Beliefs That Will Affect Care: None marital status: Current Living Situation: Family current occupational status: unemployed Other Information That Helps Us Care for You: No Feels Safe at Home: Yes Safety Concerns: Feels Safe At This Time Smoking Status: Current every day smoker Tobacco Type: cigarettes ; Years Smoked: 39 ; Cigarettes Per Day: 20/ day ; Hx Alcohol Use: Yes Alcohol type: beer Alcohol type Comment: Endorsing 3-5 beers intermittently over past few weeks. H/o heavy use Hx Substance Use: No Review of Systems See HPI for pertinent positives & negatives. and A total of 10 systems reviewed and were otherwise negative Physical Exam Vital Signs Vital Signs - 24 hr 01/01/19 10:32 01/01/19 10:44 01/01/19 11:11 Temperature 36.9 C Temperature Source Oral Sepsis Recent Fever Within 48 Hours No Sepsis New/Unexplained Change in Mental Status No Sepsis Action Taken by Nursing No Action Required Pulse Rate 89 91 H 89 Pulse Rate from SpO2 Sensor 89 88 Pulse Rhythm Respiratory Rate 16 20 14 Respiratory Effort / Characteristics Non-Labored Spontaneous Blood Pressure 179/129 H 179/129 H 174/98 H Blood Pressure Mean 145 145 123 Pulse Oximetry 90 91 91 Oxygen Delivery Method Room Air Room Air Room Air Oxygen Flow Rate 01/01/19 11:21 01/01/19 11:30 01/01/19 11:41 Temperature Temperature Source Sepsis Recent Fever Within 48 Hours Sepsis New/Unexplained Change in Mental Status Sepsis Action Taken by Nursing Pulse Rate 91 H 83 86 Pulse Rate from SpO2 Sensor 76 Pulse Rhythm Regular Respiratory Rate 20 15 Respiratory Effort / Characteristics Blood Pressure 166/108 H 166/108 H Blood Pressure Mean 127 Pulse Oximetry 91 90 Oxygen Delivery Method Room Air Room Air Oxygen Flow Rate 01/01/19 12:00 01/01/19 12:30 01/01/19 13:00 Temperature Temperature Source Sepsis Recent Fever Within 48 Hours Sepsis New/Unexplained Change in Mental Status Sepsis Action Taken by Nursing Pulse Rate 74 70 71 Pulse Rate from SpO2 Sensor 69 70 72 Pulse Rhythm Respiratory Rate 14 16 15 Respiratory Effort / Characteristics Blood Pressure 154/89 H 143/84 H 154/94 H Blood Pressure Mean 110 103 114 Pulse Oximetry 96 97 96 Oxygen Delivery Method Nasal Cannula Nasal Cannula Nasal Cannula Oxygen Flow Rate 2 2 2 01/01/19 13:30 01/01/19 13:49 Temperature Temperature Source Sepsis Recent Fever Within 48 Hours Sepsis New/Unexplained Change in Mental Status Sepsis Action Taken by Nursing Pulse Rate 92 H 92 H Pulse Rate from SpO2 Sensor 92 H Pulse Rhythm Respiratory Rate 19 19 Respiratory Effort / Characteristics Blood Pressure 175/119 H 175/119 H Blood Pressure Mean 137 Pulse Oximetry 96 96 Oxygen Delivery Method Nasal Cannula Nasal Cannula Oxygen Flow Rate 2 2 GENERAL: Patient is awake, alert, and in no acute distress.Patient is resting comfortably and showing no signs of anxiety EYES: The conjunctivae are clear. The pupils are round and reactive. EARS, NOSE, MOUTH AND THROAT: The nose is without any evidence of any deformity. Mucous membranes are moist.Tongue is midline NECK: The neck is nontender and supple. RESPIRATORY: Diminished breath sounds throughout. Expiratory wheezing noted. No tachypnea or conversational dyspnea appreciated. CARDIOVASCULAR: Regular rate and rhythm noted. There no murmurs rubs or gallops normal S1 normal S2 GASTROINTESTINAL: The abdomen is soft. Bowel sounds are present in all quadrants. Abdomen is nontender. MUSCULOSKELETAL/EXTREMITIES: There is no evidence of gross deformity. Full range of motion is noted in the hips and shoulders. SKIN: Trace pedal edema bilaterally. There is no obvious evidence of any rash. There are no petechiae, pallor or cyanosis noted. NEUROLOGIC: Patient is awake alert and oriented x3. Strength is symmetric. Patellar reflexes are 2+ bilaterally. Course 1107: Past medical records reviewed. The patient was evaluated in room C2B. A complete history and physical exam was performed. 1240: I discussed the patient's case with Dr. Morillo Cardiology. He will come see the patient. 1255: I discussed the patient's [facility] He will evaluate the patient for further management. 1308: I reevaluated the patient and updated him on his test results. I discussed the treatment plan with him. He verbally agrees and understands. 1324: I discussed the patient's case with Dr. Morillo Cardiology. He is going to take the patient to the agricultural labor camp manager. Administered Medications Insulin Aspart (Novolog Flexpen) 0 units SC ACHS LUCINDA Stop: 01/31/19 20:59 Last Admin: 01/01/19 20:26 Dose: 2 units Documented by: [id number] Cosigned by: [id number] Insulin Glargine (Lantus Solostar Pen) 0 units SC BID LUCINDA Stop: 01/31/19 20:59 Last Admin: 01/01/19 20:28 Dose: 20 units Documented by: [id number] Cosigned by: [id number] Metoprolol Tartrate (Lopressor) 25 mg PO Q6 LUCINDA Stop: 01/31/19 17:59 Last Admin: 01/01/19 17:14 Dose: 25 mg Documented by: [id number] Discontinued Medications Amlodipine Besylate (Norvasc) 5 mg PO NOW ONE Stop: 01/01/19 11:10 Last Admin: 01/01/19 11:41 Dose: 5 mg Documented by: [id number] Aspirin (Aspirin) 324 mg PO NOW STA Stop: 01/01/19 11:10 Last Admin: 01/01/19 11:41 Dose: 324 mg Documented by: [id number] Clopidogrel Bisulfate (Plavix) Confirm Administered Dose 600 mg .ROUTE .STK-MED ONE Stop: 01/01/19 14:57 Last Admin: 01/01/19 15:46 Dose: Not Given Documented by: [id number] Fentanyl Citrate (Fentanyl Citrate) Confirm Administered Dose 100 mcg .ROUTE .STK-MED ONE Stop: 01/01/19 13:42 Last Admin: 01/01/19 15:45 Dose: Not Given Documented by: [id number] Heparin Sodium (Porcine) (Heparin Iv Bolus) Confirm Administered Dose 10,000 units .ROUTE .STK-MED ONE Stop: 01/01/19 12:52 Last Admin: 01/01/19 12:57 Dose: 7,000 units Documented by: [id number] Cosigned by: [id number] Heparin Sodium (Porcine) (Heparin Iv Bolus (Environmental Field Professional Use Only)) Confirm Administered Dose 10,000 units .ROUTE .STK-MED ONE Stop: 01/01/19 13:41 Last Admin: 01/01/19 15:45 Dose: Not Given Documented by: [id number] Heparin Sodium/Dextrose () 1 ea IV NOW STA; Protocol Stop: 01/01/19 12:29 Last Admin: 01/01/19 12:59 Dose: Not Given Documented by: [id number] Heparin Sodium/Sodium Chloride (Heparin/Nss 1000 Unit/500ml Flush Bag) Confirm Administered Dose 3,000 units IV .STK-MED ONE Stop: 01/01/19 13:42 Last Admin: 01/01/19 15:46 Dose: Not Given Documented by: [id number] Thiamine HCl 200 mg/ Sodium (Chloride) 52 mls @ 208 mls/hr IV NOW STA Stop: 01/01/19 11:26 Last Infusion: 01/01/19 12:00 Dose: 0 mls/hr Documented by: [id number] Admin: 01/01/19 11:42 Dose: 208 mls/hr Documented by: [id number] Heparin Sodium/Dextrose (Heparin Sodium/Dextrose) 25,000 units in 500 mls @ 0.02 mls/hr IV .Q24H LUCINDA; Protocol Stop: 01/31/19 12:29 Last Titration: 01/01/19 15:47 Dose: 0 units/hr, 0 mls/hr Documented by: [id number] Cosigned by: [id number] Admin: 01/01/19 12:57 Dose: 1,600 units/hr, 32 mls/hr Documented by: [id number] Cosigned by: [id number] Sodium Chloride (Nss 1000ml) 1,000 mls @ 100 mls/hr IV .Q10H LUCINDA Stop: 01/01/19 20:14 Last Admin: 01/01/19 15:47 Dose: 100 mls/hr Documented by: [id number] Insulin Aspart (Novolog Flexpen) 0 units SC ACHS LUCINDA Stop: 01/31/19 18:59 Last Admin: 01/01/19 19:34 Dose: Not Given Documented by: [id number] Cosigned by: [id number] Metoprolol Tartrate (Lopressor) 5 mg IV NOW STA Stop: 01/01/19 11:10 Last Admin: 01/01/19 11:41 Dose: 5 mg Documented by: [id number] Midazolam HCl (Versed) Confirm Administered Dose 2 mg .ROUTE .STK-MED ONE Stop: 01/01/19 13:42 Last Admin: 01/01/19 15:46 Dose: Not Given Documented by: [id number] Nicardipine HCl (Cardene) Confirm Administered Dose 25 mg .ROUTE .STK-MED ONE Stop: 01/01/19 13:41 Last Admin: 01/01/19 15:45 Dose: Not Given Documented by: [id number] Nitroglycerin/Dextrose (Nitroglycerin/D5w 100 Mcg/Ml 20ml Syringe) Confirm Administered Dose 2,000 mcg .ROUTE .STK-MED ONE Stop: 01/01/19 13:42 Last Admin: 01/01/19 15:46 Dose: Not Given Documented by: [id number] Nitroglycerin/Dextrose (Nitroglycerin/D5w 100 Mcg/Ml 20ml Syringe) Confirm Admi nistered Dose 2,000 mcg .ROUTE .STK-MED ONE Stop: 01/01/19 14:13 Last Admin: 01/01/19 15:46 Dose: Not Given Documented by: [id number] Medical Decision Making Differential Diagnosis Differential diagnoses includes but is not limited to acute coronary syndrome, myocardial infarction, pericarditis, pulmonary embolus, aortic dissection, pneumonia, pneumothorax, musculoskeletal, shingles, esophageal. Medical Records Attestation: I reviewed the patient's medical records. Home Medications Current Medication List: was personally reviewed by me Laboratory Data Attestation: I reviewed the patient's lab results. Result diagrams: 01/01/19 11:13 01/01/19 11:13 Lab Results 1001/01/19 01/01/19 Range/Units 11:13 11:13 11:13 WBC 5.20 (4.8-10.8) K/uL RBC 4.07 L (4.7-6.1) M/uL Hgb 12.7 L (14.0-18.0) g/dL Hct 37.4 L (42-52) % MCV 91.9 (80-100) fL MCH 31.2 (25-34) pg MCHC 34.0 (32-36) g/dL RDW Std Deviation 48.7 H (36.4-46.3) fL RDW Coeff of Alberto 14.7 H (11.5-14.5) % Plt Count 206 (130-400) K/uL MPV 9.5 (7.4-10.4) fL Immature Gran % (Auto) 0.4 % Neut % (Auto) 57.6 % Lymph % (Auto) 25.8 % Atkinson % (Auto) 15.2 % Eos % (Auto) 0.8 % Baso % (Auto) 0.2 % Immature Gran # (Auto) 0.02 (0.00-0.02) K/uL Neut # (Auto) 3.00 (1.4-6.5) K/uL Lymph # (Auto) 1.34 (1.2-3.4) K/uL Atkinson # (Auto) 0.79 H (0.11-0.59) K/uL Eos # (Auto) 0.04 (0-0.5) K/uL Baso # (Auto) 0.01 (0-0.2) K/uL PT 10.4 (9.0-12.0) Seconds INR 1.0 (0.9-1.1) APTT 33.6 H (21.0-31.0) Seconds PTT Ratio 1.2 Sodium 138 (136-145) mmol/L Potassium 4.0 (3.5-5.1) mmol/L Chloride 106 (98-107) mmol/L Carbon Dioxide 26 (21-32) mmol/L Anion Gap 6.0 (3-11) BUN 20 H (7-18) mg/dl Creatinine 0.89 (0.6-1.4) mg/dl Est Cr Clr Drug Dosing 120.6 ml/min Est GFR ( Amer) 112.3 Est GFR (Non-Af Amer) 96.9 BUN/Creatinine Ratio 23.0 H (10-20) Glucose 218 H (70-99) mg/dl Calcium 8.6 (8.5-10.1) mg/dl Total Bilirubin 0.4 (0.2-1) mg/dl AST 27 (15-37) U/L ALT 31 (12-78) U/L Alkaline Phosphatase 116 (45-117) U/L Total Creatine Kinase 211 (39-308) U/L CK-MB (CK-2) 4.0 H (0.5-3.6) ng/ml CK/CKMB % Calc 1.9 (0-3.0) Troponin I (0-0.045) ng/ml Total Protein 6.8 (6.4-8.2) gm/dl Albumin 2.9 L (3.4-5.0) gm/dl Globulin 3.9 (2.5-4.0) gm/dl Albumin/Globulin Ratio 0.7 L (0.9-2) Lipase 56 L (73-393) U/L 01/01/19 Range/Units 11:13 WBC (4.8-10.8) K/uL RBC (4.7-6.1) M/uL Hgb (14.0-18.0) g/dL Hct (42-52) % MCV (80-100) fL MCH (25-34) pg MCHC (32-36) g/dL RDW Std Deviation (36.4-46.3) fL RDW Coeff of Alberto (11.5-14.5) % Plt Count (130-400) K/uL MPV (7.4-10.4) fL Immature Gran % (Auto) % Neut % (Auto) % Lymph % (Auto) % Atkinson % (Auto) % Eos % (Auto) % Baso % (Auto) % Immature Gran # (Auto) (0.00-0.02) K/uL Neut # (Auto) (1.4-6.5) K/uL Lymph # (Auto) (1.2-3.4) K/uL Atkinson # (Auto) (0.11-0.59) K/uL Eos # (Auto) (0-0.5) K/uL Baso # (Auto) (0-0.2) K/uL PT (9.0-12.0) Seconds INR (0.9-1.1) APTT (21.0-31.0) Seconds PTT Ratio Sodium (136-145) mmol/L Potassium (3.5-5.1) mmol/L Chloride (98-107) mmol/L Carbon Dioxide (21-32) mmol/L Anion Gap (3-11) BUN (7-18) mg/dl Creatinine (0.6-1.4) mg/dl Est Cr Clr Drug Dosing ml/min Est GFR ( Amer) Est GFR (Non-Af Amer) BUN/Creatinine Ratio (10-20) Glucose (70-99) mg/dl Calcium (8.5-10.1) mg/dl Total Bilirubin (0.2-1) mg/dl AST (15-37) U/L ALT (12-78) U/L Alkaline Phosphatase (45-117) U/L Total Creatine Kinase (39-308) U/L CK-MB (CK-2) (0.5-3.6) ng/ml CK/CKMB % Calc (0-3.0) Troponin I 4.980 H* (0-0.045) ng/ml Total Protein (6.4-8.2) gm/dl Albumin (3.4-5.0) gm/dl Globulin (2.5-4.0) gm/dl Albumin/Globulin Ratio (0.9-2) Lipase (73-393) U/L Imaging Data Radiologist's Impression: Radiology results as stated below per my review and the radiologist's interpretation: XR chest 1V portable CLINICAL HISTORY: Atypical chest pain COMPARISON STUDY: 02/02/2017 FINDINGS: The heart is at the upper limits of normal in size. There is mild interstitial prominence similar to the prior study. There is no overt failure. There is no focal pulmonary consolidation. There are no pleural effusions. There is a linear opacity at the left lung base likely representing subsegmental atelectatic change[ IMPRESSION: No active disease in the chest. Electronically signed by: David Meneses M.D. 01/01/2019 11:23 AM ECG Data Attestation: I personally reviewed and interpreted this ECG as follows: Indication: chest pain Rate (beats per minute): 91 Rhythm: normal sinus Findings: + other (peaked T waves) and + ST depression (anterior and lateral); no PAC, no PVC and no ectopy Comparison ECG Date: from (12/11/2017) Change: the following changes noted (changes increased) Blood Pressure Blood Pressure Findings: Elevated blood pressure Blood Pressure Disposition: further management by hospitalist MDM Narrative The patient is a 53-year-old male who presented to the emergency department for episodic chest pain. The patient has been having symptoms over the last few days. He states that he has a history of alcohol use and was recently out of the state for detox. Unfortunately he started using alcohol again recently. [facility] to try to have his medications refilled. He has been very noncompliant with his blood pressure as well as his diabetic medications. He continues to use tobacco. His EKG showed nonspecific abnormalities. The patient has no chest pain at this time. The patient's troponin was found to be elevated. He was started on heparin. I discussed the patient's condition with the on-call [facility] microfilm machine operator. I also discussed his case with the on-call [facility] hospitalist group. They have agreed to evaluate the patient in the emergency department for further management disposition. Likely the patient will require further cardiac work-up and possibly cardiac catheterization. I discussed the patient's laboratory and radiographic studies with him. I also discussed the possibility of further cardiac work-up. The patient was agreeable to staying in the hospital at this time. He continued to be pain-free in the emergency department. Impression & Plan Non-ST elevation OR (NSTEMI), Chest pain, Abnormal EKG, Elevated troponin Critical Care Time Critical Care Time: Yes Total Critical Care Time: 60 I have personally spent 60 minutes of critical care time in the direct management of this patient. This includes bedside care, interpretation of diagnostic studies, and testing, discussion with consultants, patient, and family members, and other required patient management activities. This 60 minutes is in excess of all separately billable procedures. Discharge Plan Visit Data *Final* Discharge Date/Time: 01/01/19 13:49 Chief Complaint: Chest Pain ED Provider: Maurice Kate Discharge Problem: Non-ST elevation OR (NSTEMI), Chest pain, Abnormal EKG, Elevated troponin Patient Disposition: Still a Patient Discharge Instructions Interventions: ED Discharge Assessment Last Done: 01/01/19 13:49 The scribe's documentation has been prepared under my direction and personally reviewed by me in its entirety. I confirm that the note above accurately reflects all work, treatment, procedures, and medical decision making performed by me.
[2019-01-01] MEDS ORDERED: INSULIN GLARGINE SOLOSTAR 100 UNITS/ML 3 ML PEN SC SCH (23:00)
[2019-01-02 05:57] LABS: Hematocrit (blood only) 38.3 % (42-52); Hemoglobin 12.7 g/dL (14.0-18.0); Mean Corpuscular Hemoglobin 30.8 pg (25-34); Mean Corpuscular Hgb Conc 33.2 g/dL (32-36); Platelet Count 190 K/uL (130-400); RDW Coefficient of Variation 14.6 % (11.5-14.5); RDW Standard Deviation 48.7 fL (36.4-46.3); Red Blood Count 4.12 M/uL (4.7-6.1); White Blood Count 5.07 K/uL (4.8-10.8)
[2019-01-02] MEDS: METOPROLOL TARTRATE 25 MG TAB PO SCH ×3 (06:23→20:31)
[2019-01-02 06:31] LABS: BUN Creatinine Ratio 18.5 (10-20); Calcium 8.3 mg/dl (8.5-10.1); Creatinine Clr Calc Pharmacy 121.8 ml/min; Est GFR (African American) 112.9; Est GFR (Non-African American) 97.4
[2019-01-02 06:32] LABS: Estimated Average Glucose 275 mg/dl; Hemoglobin A1C 11.2 % (4.5-5.6)
[2019-01-02] MEDS: FOLIC ACID 1 MG TAB PO SCH (09:26)
[2019-01-02] MEDS: ATORVASTATIN 40 MG TAB PO SCH (09:26)
[2019-01-02] MEDS: CLOPIDOGREL BISULFATE 75 MG TAB PO SCH (09:26)
[2019-01-02] MEDS: lisinopriL 40 MG TAB PO SCH (09:26)
[2019-01-02] MEDS: ASPIRIN 81 MG ECTAB PO SCH (09:26)
[2019-01-02] MEDS: VENLAFAXINE HCL XR 150 MG CAPXR PO SCH (09:27)
[2019-01-02] MEDS: THIAMINE HCL 100 MG TAB PO SCH (09:27)
[2019-01-02] MEDS: INSULIN ASPART 100 UNITS/ML 3 ML PEN SC SCH ×4 (09:29→20:31)
[2019-01-02] MEDS: INSULIN GLARGINE SOLOSTAR 100 UNITS/ML 3 ML PEN SC SCH ×2 (09:30→20:30)
[2019-01-02] MEDS ORDERED: CHLORTHALIDONE 25 MG TAB PO SCH (10:15)
--- NOTE | 2019-01-02 13:00 | Hospitalist Progress Note ---
Date of Service January 02, 2019 Assessment & Plan (1) Non-ST elevation MT (NSTEMI): (2) History of cardiac catheterization: This is a 53yo M with a PMH of DM II on insulin, HTN, depression, h/o alcohol use disorder and other medical problems listed below who presents from [facility] after he had mentioned intermittent chest pain and was found to have NSTEMI. -Initial troponin of 4.98 in ED. Bedside 2D echo with moderate concentric LVH, mildly reduced systolic function with EF 45-50% and moderate hypokinesis of anterolateral and inferior lateral mccarty -Underwent cardiac cath with PCI WITH ELIESER to proximal OM -Feeling well post-procedure in the PCU -Has been on Plavix,beta arnold, statin and aspirin and continuing lisinopril -Continue dual-antiplatelet therapy for at least one year -Denies any chest pain no palpitation -No arrhythmias on monitor (3) Type 2 diabetes mellitus: Most recent a1c >12 per patient. 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 Endorses 3 beers last night -No evidence of withdrawal -At risk protocol with ativan -Thiamine and folic acid qAM -Will need alcohol Anonymous involvement for improvement -Social service has been consulted (6) Tobacco use disorder: History of 39 pack years -Smoking cessation counseling ordered (7) Mood disorder: Continue venlafaxine Code status: FULL PCP: [facility] Dispo: Admitted to telemetry. Plan to return home once medically stable. Likely be discharged tomorrow Subjective 01/02 The patient was seen and examined in telemetry unit He denies any symptoms today and wants to go home His blood pressure remains high and heart rate low Likely to stay tonight was advised to stay tonight for further assessment before discharge Review of Systems Review of Systems: All systems reviewed and are unremarkable except as noted below Cardiovascular: no chest pain and no dyspnea at rest Gastrointestinal: no abdominal pain and no bloating Musculoskeletal: no back pain Physical Exam Physical Exam: Lying in bed comfortably Constitutional: well developed, well nourished and + obese; no acute distress and not ill appearing Eyes: PERRL, conjunctivae normal, anicteric sclerae ENMT: external ear and nose normal, oropharynx normal Neck: trachea midline, no thyromegaly Respiratory: normal respiratory effort; no respiratory distress Auscultation: lungs clear to auscultation bilaterally Cardiovascular: Rate/Rhythm: regular rate and regular rhythm Heart Sounds: no murmur Gastrointestinal (Abdomen): Inspection/Auscultation: abdomen normal to inspection and normal bowel sounds Percussion/Palpation: abdomen soft Musculoskeletal: No acute arthritis in any of the joints Neurologic: moves all extremities; no focal motor deficits Lymphatic: no cervical or axillary lymphadenopathy Results & Data Vital Signs (Past 12 Hours) Vital Signs Temp Pulse Resp BP Pulse Ox 01/02/19 12:03 36.9 C 58 L 20 155/72 H 93 01/02/19 11:00 48 L 01/02/19 07:20 36.8 C 59 L 20 146/83 H 93 01/02/19 03:17 36.7 C 69 19 146/85 H 94 Laboratory Results Short CBC 01/02/19 Range/Units 05:26 WBC 5.07 (4.8-10.8) K/uL Hgb 12.7 L (14.0-18.0) g/dL Hct 38.3 L (42-52) % Plt Count 190 (130-400) K/uL BMP 01/02/19 05:26 Sodium 140 Potassium 4.0 Chloride 107 Carbon Dioxide 28 BUN 16 Creatinine 0.88 Glucose 162 H Calcium 8.3 L Medications Administered Current Inpatient Medications Aspirin (Ecotrin Ectab) [address] [facility] Stop: 02/01/19 08:59 Last Admin: 01/02/19 09:26 Dose: 81 mg Documented by: Atorvastatin Calcium (Lipitor) [address] [facility] Stop: 02/01/19 08:59 Last Admin: 01/02/19 09:26 Dose: 40 mg Documented by: Chlorthalidone (Hygroton) 12.[address] [facility] Stop: 02/01/19 10:14 Last Admin: 01/02/19 11:29 Dose: 12.5 mg Documented by: Clopidogrel Bisulfate (Plavix) 75 mg PO M [facility] Stop: 02/01/19 08:59 Last Admin: 01/02/19 09:26 Dose: 75 mg Documented by: Dextrose (Dextrose 50%) 25 - 50 ml IV UD PRN; Protocol PRN Reason: Hypoglycemia Protocol Stop: 01/31/19 18:23 Folic Acid (Folvite) 1 mg PO QAM [facility] Stop: 02/01/19 08:59 Last Admin: 01/02/19 09:26 Dose: 1 mg Documented by: Glucagon (Glucagen) 1 mg SQ UD PRN; Protocol PRN Reason: Hypoglycemia Protocol Stop: 01/31/19 18:23 Glucose (Dex4 Glucose) 4 - 8 tabs PO UD PRN; Protocol PRN Reason: Hypoglycemia Protocol Stop: 01/31/19 18:23 Glucose (Glucose 40%) 15 - 30 gm PO UD PRN; Protocol PRN Reason: Hypoglycemia Protocol Stop: 01/31/19 18:23 Insulin Aspart (Novolog Flexpen) 0 units SC ACHS [facility] Stop: 01/31/19 20:59 Last Admin: 01/02/19 11:50 Dose: 5 units Documented by: Insulin Glargine (Lantus Solostar Pen) 0 units SC BID [facility] Stop: 01/31/19 20:59 Last Admin: 01/02/19 09:30 Dose: 10 units Documented by: Lisinopril (Zestril) 40 mg PO DAILY [facility] Stop: 02/01/19 08:59 Last Admin: 01/02/19 09:26 Dose: 40 mg Documented by: Lorazepam (Ativan) 1 mg PO ONE PRN; Protocol PRN Reason: EtoH Withdrawal AWSS 6-10 Metoprolol Tartrate (Lopressor) 25 mg PO BID [facility] Stop: 02/01/19 20:59 Miscellaneous (Carbohydrates For Hypoglycemia) 15 - 30 gm PO UD PRN PRN Reason: Hypoglycemia Treatment Stop: 01/31/19 18:23 Thiamine HCl (Vitamin B-1) 100 mg PO QAM [facility] Stop: 02/01/19 08:59 Last Admin: 01/02/19 09:27 Dose: 100 mg Documented by: Trazodone HCl (Desyrel) 50 mg PO HS PRN PRN Reason: Insomnia Stop: 01/31/19 18:22 Venlafaxine HCl (Effexor Extended Release) 150 mg PO DAILY [facility] Stop: 02/01/19 08:59 Last Admin: 01/02/19 09:27 Dose: 150 mg Documented by:
--- NOTE | 2019-01-02 15:57 | Cardiology Progress Note ---
Date of Service January 02, 2019 Assessment & Plan (1) NSTEMI (non-ST elevated myocardial infarction): s/p successful PCI to culprit 95% stenosis of large OM1 tolerate well now on DAPT, tolerating well will decrease metoprolol to 25mg bid due to relative bradycardia cont statin will cont to monitor overnight on tele due to NSTEMI and risk for reperfusion arrhythmia (2) Polysubstance abuse: (3) CATALINO (obstructive sleep apnea): (4) Obesity: (5) Tobacco use disorder: Will require cessation counseling prior to discharge will give nicotine patch as well (6) Alcoholism: (7) HTN (hypertension): Will continue lisinopril for now especially given its nephro protective benefits for diabetics remains elevated will add chlorthalidone for additional coverage Subjective Pt seen and examined, states that he feels well. No recurrence of symptoms even with ambulation to bathroom. Denies cp, sob, palpitations, lightheadedness or dizziness. tele reviewed: sinus rhythm without arrhythmia or significant ectopy. Review of Systems Review of Systems: All systems reviewed & are unremarkable except as noted in HPI & below Physical Exam Physical Exam: General: Awake, alert and oriented x 3. No acute distress. HEENT: Normocephalic, atraumatic. Pupils equal, round and reactive to light and accommodation. Extraocular muscles are intact. Anicteric sclera. Moist mucous membranes. Neck: No JVD. No bruit. Cardiovascular: Regular. Positive S-4. Normal S-1 and S-2. No S-3. No murmurs or rubs. Pulmonary: Clear to auscultation B/L. No rales, rhonchi or wheezing Abdomen: Bowel sounds x 4, soft. No rebound, guarding or tenderness. No organomegaly. Extremities: No clubbing, cyanosis or edema. +2 pedal pulses bilaterally. Skin: Warm and dry. Results & Data Vital Signs (Past 12 Hours) Vital Signs Temp Pulse Resp BP Pulse Ox 01/02/19 15:11 36.7 C 61 18 145/83 H 94 01/02/19 12:03 36.9 C 58 L 20 155/72 H 93 01/02/19 11:00 48 L 01/02/19 07:20 36.8 C 59 L 20 146/83 H 93
[2019-01-03 06:39] LABS: Basophils # (auto) 0.02 K/uL (0-0.2); Basophils % (auto) 0.4 %; Eosinophils # (auto) 0.07 K/uL (0-0.5); Eosinophils % (auto) 1.3 %; Hemoglobin 12.8 g/dL (14.0-18.0); Immature Granulocytes # (auto) 0.01 K/uL (0.00-0.02); Immature Granulocytes % (auto) 0.2 %; Lymphocytes # (auto) 1.87 K/uL (1.2-3.4); Lymphocytes % (auto) 34.1 %; Mean Corpuscular Hemoglobin 30.8 pg (25-34); Mean Corpuscular Hgb Conc 33.7 g/dL (32-36); Mean Corpuscular Volume 91.3 fL (80-100); Mean Platelet Volume 9.6 fL (7.4-10.4); Monocytes # (auto) 0.76 K/uL (0.11-0.59); Monocytes % (auto) 13.9 %; Neutrophils # (auto) 2.75 K/uL (1.4-6.5); Neutrophils % (auto) 50.1 %; Platelet Count 182 K/uL (130-400); RDW Coefficient of Variation 14.5 % (11.5-14.5); RDW Standard Deviation 47.9 fL (36.4-46.3); Red Blood Count 4.16 M/uL (4.7-6.1); White Blood Count 5.48 K/uL (4.8-10.8)
[2019-01-03 07:25] LABS: BUN Creatinine Ratio 17.6 (10-20); Calcium 8.3 mg/dl (8.5-10.1); Creatinine Clr Calc Pharmacy 121.1 ml/min; Est GFR (African American) 113.4; Est GFR (Non-African American) 97.8; Magnesium 1.8 mg/dl (1.8-2.4); Potassium 3.5 mmol/L (3.5-5.1)
[2019-01-03] MEDS: METOPROLOL TARTRATE 25 MG TAB PO SCH (08:46)
[2019-01-03] MEDS: FOLIC ACID 1 MG TAB PO SCH (08:46)
[2019-01-03] MEDS: lisinopriL 40 MG TAB PO SCH (08:47)
[2019-01-03] MEDS: ASPIRIN 81 MG ECTAB PO SCH (08:47)
[2019-01-03] MEDS: VENLAFAXINE HCL XR 150 MG CAPXR PO SCH (08:47)
[2019-01-03] MEDS: THIAMINE HCL 100 MG TAB PO SCH (08:47)
[2019-01-03] MEDS: ATORVASTATIN 40 MG TAB PO SCH ×2 (08:48→09:33)
[2019-01-03] MEDS: CLOPIDOGREL BISULFATE 75 MG TAB PO SCH (08:48)
[2019-01-03] MEDS: INSULIN ASPART 100 UNITS/ML 3 ML PEN SC SCH ×2 (08:50→13:37)
[2019-01-03] MEDS: INSULIN GLARGINE SOLOSTAR 100 UNITS/ML 3 ML PEN SC SCH (08:50)
[2019-01-03] MEDS ORDERED: CHLORTHALIDONE 25 MG TAB PO SCH (09:00)
--- NOTE | 2019-01-03 09:56 | Hospitalist Progress Note ---
Date of Service January 03, 2019 Assessment & Plan (1) Non-ST elevation MD (NSTEMI): (2) History of cardiac catheterization: This is a 53yo M with a PMH of DM II on insulin, HTN, depression, h/o alcohol use disorder and other medical problems listed below who presents from [facility] after he had mentioned intermittent chest pain and was found to have NSTEMI. -Initial troponin of 4.98 in ED. Bedside 2D echo with moderate concentric LVH, mildly reduced systolic function with EF 45-50% and moderate hypokinesis of anterolateral and inferior lateral mccarty -Underwent cardiac cath with PCI WITH ELIESER to proximal OM -Feeling well post-procedure in the PCU -Has been on Plavix,beta arnold, statin and aspirin and continuing lisinopril -Continue dual-antiplatelet therapy for at least one year -Denies any chest pain no palpitation -No arrhythmias on monitor -Remains stable medically without any more cardiac symptoms and no shortness of breath -Beta-arnold dose has been reduced -Likely to be discharged this afternoon (3) Type 2 diabetes mellitus: Most recent a1c >12 per patient. 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 Endorses 3 beers last night -No evidence of withdrawal -At risk protocol with ativan -Thiamine and folic acid qAM -Will need alcohol Anonymous involvement for improvement -Social service has been consulted -Strongly advised to quit drinking and regular follow-up with alcohol Anonymous group (6) Tobacco use disorder: History of 39 pack years -Smoking cessation counseling ordered -Nicotine patch prescribed (7) Mood disorder: Continue venlafaxine Code status: FULL PCP: [facility] Dispo: Admitted to telemetry. Plan to return home once medically stable. Discharge today Subjective 01/02 The patient was seen and examined in telemetry unit He denies any symptoms today and wants to go home His blood pressure remains high and heart rate low Likely to stay tonight was advised to stay tonight for further assessment before discharge 01/03 The patient was seen and examined in telemetry unit He complains to have some cough but denies any other cardiac symptoms Denies any chest pain and/or palpitation No shortness of breath and/or dizziness on ambulation His blood pressure remains stable and there is no arrhythmias or significant bradycardia Review of Systems Review of Systems: All systems reviewed and are unremarkable except as noted below Respiratory: + cough Gastrointestinal: no abdominal pain Physical Exam Physical Exam: Lying in bed comfortably Constitutional: well developed, well nourished and + obese; no acute distress and not ill appearing Eyes: PERRL, conjunctivae normal, anicteric sclerae ENMT: external ear and nose normal, oropharynx normal Neck: trachea midline, no thyromegaly Respiratory: normal respiratory effort; no respiratory distress Auscultation: lungs clear to auscultation bilaterally Cardiovascular: Rate/Rhythm: regular rate and regular rhythm Heart Sounds: no murmur Gastrointestinal (Abdomen): Inspection/Auscultation: abdomen normal to inspection and normal bowel sounds Percussion/Palpation: abdomen soft Neurologic: moves all extremities; no focal motor deficits Psychiatric: A+Ox3, euthymic affect Lymphatic: no cervical or axillary lymphadenopathy Results & Data Vital Signs (Past 12 Hours) Vital Signs Temp Pulse Resp BP Pulse Ox 01/03/19 07:44 36.7 C 53 L 18 142/82 H 92 01/03/19 03:40 36.6 C 58 L 18 133/70 92 01/02/19 23:16 36.5 C 55 L 18 112/71 93 Laboratory Results Short CBC 01/03/19 Range/Units 06:12 WBC 5.48 (4.8-10.8) K/uL Hgb 12.8 L (14.0-18.0) g/dL Hct 38.0 L (42-52) % Plt Count 182 (130-400) K/uL BMP 01/03/19 06:12 Sodium 139 Potassium 3.5 Chloride 106 Carbon Dioxide 27 BUN 15 Creatinine 0.87 Glucose 111 H Calcium 8.3 L Medications Administered Current Inpatient Medications [facility] [place] [facility] Stop: 02/01/19 08:59 Last Admin: 01/03/19 08:47 Dose: 81 mg Documented by: Atorvastatin Calcium (Lipitor) 40 mg PO QAM [facility] Stop: 02/01/19 08:59 Last Admin: 01/03/19 09:33 Dose: 40 mg Documented by: Chlorthalidone (Hygroton) 25 mg PO QAM [facility] Stop: 02/02/19 08:59 Last Admin: 01/03/19 08:46 Dose: 25 mg Documented by: Clopidogrel Bisulfate (Plavix) 75 mg PO QAM [facility] Stop: 02/01/19 08:59 Last Admin: 01/03/19 08:48 Dose: 75 mg Documented by: Dextrose (Dextrose 50%) 25 - 50 ml IV UD PRN; Protocol PRN Reason: Hypoglycemia Protocol Stop: 01/31/19 18:23 Folic Acid ([facility]olvite) [facility] [place]: 02/01/19 08:59 Last Admin: 01/03/19 08:46 Dose: 1 mg Documented by: Glucagon (Glucagen) 1 mg SQ UD PRN; Protocol PRN Reason: Hypoglycemia Protocol Stop: 01/31/19 18:23 Glucose (Dex4 Glucose) 4 - 8 tabs PO UD PRN; Protocol PRN Reason: Hypoglycemia Protocol Stop: 01/31/19 18:23 Glucose (Glucose 40%) 15 - 30 gm PO UD PRN; Protocol PRN Reason: Hypoglycemia Protocol Stop: 01/31/19 18:23 Insulin Aspart (Novolog Flexpen) 0 units SC ACHS [facility] Stop: 01/31/19 20:59 Last Admin: 01/03/19 08:50 Dose: 3 units Documented by: Insulin Glargine (Lantus Solostar Pen) 0 units SC BID [facility] Stop: 01/31/19 20:59 Last Admin: 01/03/19 08:50 Dose: 10 units Documented by: Lisinopril (Zestril) 40 mg PO DAILY [facility] Stop: 02/01/19 08:59 Last Admin: 01/03/19 08:47 Dose: 40 mg Documented by: Lorazepam (Ativan) 1 mg PO ONE PRN; Protocol PRN Reason: EtoH Withdrawal AWSS 6-10 Metoprolol Tartrate (Lopressor) 25 mg PO BID [facility] Stop: 02/01/19 20:59 Last Admin: 01/03/19 08:46 Dose: 25 mg Documented by: Miscellaneous (Carbohydrates For Hypoglycemia) 15 - 30 gm PO UD PRN PRN Reason: Hypoglycemia Treatment Stop: 01/31/19 18:23 Miscellaneous (Remove Nicoderm Patch) 1 ea N/A HS [facility] Stop: 02/02/19 20:59 Nicotine (Nicoderm Cq) 14 mg TD QAM [facility] Stop: 02/02/19 09:59 Thiamine HCl (Vitamin B-1) 100 mg PO QAM [facility] Stop: 02/01/19 08:59 Last Admin: 01/03/19 08:47 Dose: 100 mg Documented by: Trazodone HCl (Desyrel) 50 mg PO HS PRN PRN Reason: Insomnia Stop: 01/31/19 18:22 Last Admin: 01/02/19 22:11 Dose: 50 mg Documented by: Venlafaxine HCl (Effexor Extended Release) 150 mg PO DAILY [facility] Stop: 02/01/19 08:59 Last Admin: 01/03/19 08:47 Dose: 150 mg Documented by:
[2019-01-03] MEDS ORDERED: NICOTINE 14 MG/24 HR PATCH TD SCH (10:00)
[2019-01-04 07:39] LABS: 7-Aminoclonaz, Confirm NEGATIVE NG/ML (CUTOFF=25); Hydro-Alp Ur, GC/MS NEGATIVE NG/ML (CUTOFF=25); Hydroxyethylflurazepam, Conf NEGATIVE NG/ML (CUTOFF=50); Hydroxytriazolam NEGATIVE NG/ML (CUTOFF=50); Lorazepam, Ur GC/MS NEGATIVE NG/ML (CUTOFF=50); Nordiazepam, Confirm NEGATIVE NG/ML (CUTOFF=50); Oxazepam Ur, GC/MS NEGATIVE NG/ML (CUTOFF=50); Temazepam, Confirm NEGATIVE NG/ML (CUTOFF=50)
--- NOTE | 2019-01-04 12:13 | Discharge Summary ---
Date of Service January 04, 2019 Admission HPI Per Admitting Provider This is a 53yo M with a PMH of DM II on insulin, HTN, depression, h/o alcohol use disorder and other medical problems listed below who presents from [facility] after he had mentioned intermittent chest pain. Patient returned from sober living house in [place] a few months ago and has been experiencing intermittent chest pain since his return. Describes pain as " charley horse-like" and under bilateral ribs with radiation to arms. Also associated with shortness of breath. Has happened intermittently and usually occurs in the setting of exertion. Has become more short of breath with normal walking around town as well. Denies any personal history of coronary artery disease. History of CAD requiring CABG in both grandfathers. Recently established care at [facility] and was told that his A1c was very high, he thinks around 14. Resumed a stricter insulin regimen since then and was due for an A1c checked today. Also recently started drinking a few beers in the past 2 weeks due to sciatic back pain. Most recent drink was 3 beers last night. States that understands what withdrawal feels like and has had 2 seizures during the withdrawal process in the past. Not experiencing tremors or anxious feelings he has had during past withdrawal. Smokes 1 ppd x 39 years. In ED, patient was found to have troponin of 4.98 initially and was evaluated by Dr. Martinez. Bedside 2D echo with moderate concentric LVH, mildly reduced systolic function with EF 45-50% and moderate hypokinesis of anterolateral and inferior lateral mccarty. Underwent cardiac cath with PCI to ELIESER to prox. OM. Feeling well post-procedure. Denies fever, chills, headache, lightheadedness, chest pain, palpitations, shortness of breath, abdominal pain, nausea, vomiting, dysuria, constipation or diarrhea. Admission Exam Per Admitting Provider Physical Exam: General Appearance: WD/WN, vitals as above, NAD, sitting up in bed, pleasant, conversing easily Head: normocephalic, atraumatic Eyes: normal inspection, PERRL, conjunctivae normal, anicteric sclerae ENT: external ear and nose normal, oropharynx normal Neck: trachea midline, no thyromegaly normal visual inspection Respiratory: lungs clear to auscultation, no wheeze, rales, rhonchi. Normal insp/exp effort, no accessory muscle use Cardiovascular: regular rate, rhythm, no murmur appreciated, normal peripheral pulses. Vessels: no JVD or carotid bruit Chest: normal inspection of chest Abdomen/GI: normal bowel sounds, soft, nontender, no hepatosplenomegaly Extremities/Musculoskelatal: R wrist guard in place, no bleeding. No cyanosis or clubbing, extremities motor strength 5/5 Neurologic: PERRL, EOMI, no dysarthria CN's II-XI intact bilaterally and moves all extremities Psychiatric: A+Ox3, euthymic affect Skin: no rashes, normal color, warm/dry Principal Diagnosis Non-ST elevation [place], status post cardiac cath with placement of ELIESER to proximal OM, type 2 diabetes-uncontrolled, hypertension Discharge Exam Constitutional well developed, well nourished and + obese; no acute distress and not ill appearing Eyes PERRL, conjunctivae normal, anicteric sclerae ENMT external ear and nose normal, oropharynx normal Neck trachea midline, no thyromegaly Respiratory normal respiratory effort; no respiratory distress Auscultation: lungs clear to auscultation bilaterally Cardiovascular Rate/Rhythm: regular rate and regular rhythm Heart Sounds: no murmur Gastrointestinal (Abdomen) Inspection/Auscultation: abdomen normal to inspection and normal bowel sounds Percussion/Palpation: abdomen soft Neurologic moves all extremities; no focal motor deficits Psychiatric A+Ox3, euthymic affect Lymphatic no cervical or axillary lymphadenopathy Discharge Data Allergies Allergy/AdvReac Type Severity Reaction Status Date / Time No Known Allergies Allergy Unverified 01/01/19 12:42 Consultations 01/01/19 12:52 Consult Cardiology Stat ED Decision to Admit Stat 01/01/19 13:30 Consult Cardiac Catheterization Stat 01/01/19 15:11 Consult Cardiac Rehabilitation Routine 01/01/19 20:28 Consult Case Management - Discharge Planning Routine Procedures Performed Operation Date: 01/01/19 14:00 Actual Procedures p Cath, Coronaries ONLY (no LV) - Geoffrey Guerrero MD s Cineradiography w/Routine Exam - Geoffrey Guerrero MD s Drug Eluting Stent SGl Vessel - Geoffrey Guerrero MD Ordered Studies 01/01/19 13:39 CL Cath Imgs for PACS use only Stat Hospital Course (1) Non-ST elevation [place] (NSTEMI): (2) History of cardiac catheterization: This is a 53yo M with a PMH of DM II on insulin, HTN, depression, h/o alcohol use disorder and other medical problems listed below who presents from [facility] after he had mentioned intermittent chest pain and was found to have NSTEMI. -Initial troponin of 4.98 in ED. Bedside 2D echo with moderate concentric LVH, mildly reduced systolic function with EF 45-50% and moderate hypokinesis of anterolateral and inferior lateral mccarty -Underwent cardiac cath with PCI WITH ELIESER to proximal OM -Feeling well post-procedure in the PCU -Has been on Plavix,beta arnold, statin and aspirin and continuing lisinopril -Continue dual-antiplatelet therapy for at least one year -Denies any chest pain no palpitation -No arrhythmias on monitor -Remains stable medically without any more cardiac symptoms and no shortness of breath -Beta-arnold dose has been reduced -Likely to be discharged this afternoon (3) Type 2 diabetes mellitus: Most recent a1c >12 per patient. Repeat pending -Hold home agents -Basal bolus insulin while in-patient -BSG AC HS -Hemoglobin A1c came back elevated at 11.2 -He was advised to follow-up closely with his primary care doc and spool hauler (4) HTN (hypertension): Initially elevated but normotensive now -Continue home lisinopril, metoprolol Q6H -Further tailoring of antihypertensives per cards tomorrow -Blood pressure seems to be minimally high at 155/72 -Blood pressure has been stable (5) Alcohol use disorder: Recently started drinking beer again. Endorses 3 beers last night -No evidence of withdrawal -At risk protocol with ativan -Thiamine and folic acid qAM -Will need alcohol Anonymous involvement for improvement -Social service has been consulted -Strongly advised to quit drinking and regular follow-up with alcohol Anonymous group (6) Tobacco use disorder: History of 39 pack years -Smoking cessation counseling ordered -Nicotine patch prescribed (7) Mood disorder: Continue venlafaxine Code status: FULL PCP: [facility] Dispo: Admitted to telemetry. Plan to return home once medically stable. Discharge today Total Time Total Time Spent Total Time Spent (In Minutes): 35 minutes Total Time Includes: Examination of the Patient, Discharge Planning, Medication Reconciliation and Communication With Other Providers Discharge Plan Discharge Items Patient Disposition: Home - Self-Care Reason For Visit: CHEST PAIN Discharge Diagnosis: Non-ST elevation [place], status post cardiac cath with placement of ELIESER to proximal OM, type 2 diabetes-uncontrolled, hypertension Condition on Discharge: Good Activity: Resume your previous activity Non-emergency contact: Primary Care Provider Call non-emergency contact if: you have any medication questions and your symptoms worsen Follow-up/Referrals: PCP,NO [Primary Care Provider] - (Please make an appointment with your primary care physician within 7 days. [facility] cardiology office will call with an appointment in 2 to 3 weeks.) Diet: Carb Consistent or DM2 and Heart Healthy Addtl Attending Provider Instructions: Strongly advised to quit smoking. Strongly advised to follow-up with PCP for better management of diabetes.-No change of his diabetes medications while made Advised to quit drinking and regular follow-up with alcohol Anonymous group Please make sure you continue to take your new medications as prescribed Pending Studies at Discharge: No Stand-Alone Forms: Call Back Authorization, My [facility] Medications and DC Order Prescriptions: New atorvastatin 40 mg Tablet 40 mg PO QAM 30 Days Qty: 30 RF: 0 thiamine HCl (vitamin B1) [Vitamin B-1] 100 mg Tablet 100 mg PO QAM 30 Days Qty: 30 RF: 0 clopidogrel 75 mg Tablet 75 mg PO QAM 30 Days Qty: 30 RF: 0 chlorthalidone 25 mg Tablet 25 mg PO QAM 30 Days Qty: 30 RF: 0 aspirin [Ecotrin Low Strength] 81 mg Tablet,Delayed Release (Dr/Ec) 81 mg PO QAM 30 Days Qty: 30 RF: 0 folic acid 1 mg Tablet 1 mg PO QAM 30 Days Qty: 30 RF: 0 nicotine 7 mg/24 hr Patch 24 Hour 14 mg transdermal QAM 30 Days Qty: 30 RF: 0 metoprolol tartrate 25 mg Tablet 25 mg PO BID 30 Days Qty: 60 RF: 0 Continued venlafaxine 150 mg Capsule,Extended Release 24hr 150 mg PO DAILY RF: 0 Levemir FlexTouch U-100 Insuln 100 unit/mL (3 mL) Insulin Pen 40 unit SUBCUT HS RF: 0 Novolog Flexpen U-100 Insulin 100 unit/mL Insulin Pen 1 units subcut UD RF: 0 trazodone 50 mg Tablet 50 mg PO HS PRN (Reason: Insomnia) RF: 0 lisinopril 40 mg tablet 40 mg PO DAILY 30 Days Qty: 30 RF: 0 Discharge Orders: Discharge Order (Routine); Ordered 01/03/19 Ordered By: Horace Campbell/Other Patient Handouts: Diabetes Heart Disease, Diabetes Nurse Practitioner Hospitalist Complications, Diabetes Resources, Diabetes Type 2 Coping, Diabetes Healthy Meals, Diabetes Carbs, Diabetes Keep Feet Healthy, Diabetes Inspect Feet, Diabetes Exercise Benefits, Diabetes Exercise Get Started, Diabetes Activity Tips, Diabetes Living Life, Diabetes Manage A1C Test Admission Data Admit Date/Time: 01/01/19 15:09 Attending Provider: Horace Yuen Admit Provider: Dewayne Martinez Primary Care Provider: PCP,NO Other Providers: Dewayne Martinez ; Everton Troy ; Geoffrey Guerrero Other Interventions: Discharge Summary Assessment (RN) Last Done: 01/03/19 13:14 DC Date/Time DO NOT enter until pt leaves facility: 01/03/19 14:35
== END 2019-01-03 14:35 | disposition home or self-care (01) | DRG 247 ==
LOC: ED 10:34 → CC 13:49 → SUATTDRO 15:09 → 2S 15:09
PROC: CLB.CCO (2019-01-01 14:00)

== ENCOUNTER 2019-08-26 20:37 | Inpatient (IN) ==
[2019-08-26] MEDS: SODIUM CHLORIDE 0.9% 1000ML 1,000 ML IV SCH (21:21)
[2019-08-26 21:24] LABS: Basophils # (auto) 0.03 K/uL (0-0.2); Basophils % (auto) 0.6 %; Eosinophils # (auto) 0.07 K/uL (0-0.5); Eosinophils % (auto) 1.3 %; Hematocrit (blood only) 39.1 % (42-52); Hemoglobin 13.6 g/dL (14.0-18.0); Lymphocytes # (auto) 1.64 K/uL (1.2-3.4); Mean Corpuscular Hemoglobin 31.9 pg (25-34); Mean Corpuscular Hgb Conc 34.8 g/dL (32-36); Mean Corpuscular Volume 91.8 fL (80-100); Mean Platelet Volume 9.6 fL (7.4-10.4); Monocytes # (auto) 0.58 K/uL (0.11-0.59); Neutrophils # (auto) 2.97 K/uL (1.4-6.5); Neutrophils % (auto) 56.1 %; Platelet Count 174 K/uL (130-400); RDW Coefficient of Variation 12.2 % (11.5-14.5); RDW Standard Deviation 40.9 fL (36.4-46.3); Red Blood Count 4.26 M/uL (4.7-6.1); White Blood Count 5.29 K/uL (4.8-10.8)
--- NOTE | 2019-08-26 21:53 | Emergency Department Note ---
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 Patient states he had moved back to the [facility] from [place] several months ago to be with his family. Patient states the situation felt like it was deteriorating again as he did not have his usual support system and he began drinking again. Patient states he drinks vodka. States it started with the pain and is now up to 1/2 gallon per day. Patient states he has had a history of significant alcohol withdrawal including requiring inpatient medical admissions, DTs, as well as seizures. Patient states he has been trying over the last 2 to 3 weeks to get into a rehab facility, however when the facilities find out that he has a prior history of a heart attack, he is then declined. Patient states he does not want to from an alcohol related complication, and does want to get rehab and get sober. Pt seen during a time of high acuity and national emergency pandemic while wearing PPE. Home Medications Home Medications Medication Instructions Recorded Confirmed Type Levemir FlexTouch U-100 Insuln 40 unit SUBCUT HS 12/14/17 08/26/19 History insulin aspart U-100 [Novolog 1 units SUBCUT UD 12/16/17 08/26/19 History Flexpen U-100 Insulin] trazodone 50 mg PO HS PRN 01/01/19 08/26/19 History aspirin [Ecotrin Low Strength] 81 mg PO DAILY 08/26/19 08/26/19 History atorvastatin [Lipitor] 40 mg PO DAILY 08/26/19 08/26/19 History chlorthalidone 25 mg PO DAILY 08/26/19 08/26/19 History clopidogrel [Plavix] 75 mg PO DAILY 08/26/19 08/26/19 History lisinopril [Zestril] 40 mg PO DAILY 08/26/19 08/26/19 History metoprolol succinate [Toprol XL] 50 mg PO DAILY 08/26/19 08/26/19 History spironolactone [Aldactone] 25 mg PO DAILY 08/26/19 08/26/19 History venlafaxine [Effexor XR] 150 mg PO DAILY 08/26/19 08/26/19 History Allergies Allergy/AdvReac Type Severity Reaction Status Date / Time No Known Allergies Allergy Unverified 01/01/19 12:42 Past Med/Surg History Medical History Alcohol use disorder (Chronic) HTN (hypertension) (Chronic) Mood disorder (Chronic) Neuropathy (Chronic) NSTEMI (non-ST elevated myocardial infarction) (Acute) Obesity (Chronic) CATALINO (obstructive sleep apnea) (Chronic) Tobacco use disorder (Chronic) Type 2 diabetes mellitus (Chronic) Surgical History History of cardiac catheterization (Chronic) 1 ELIESER to proximal OM by Dr. 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 H/o heavy use Hx Substance Use: Yes substance use type: other Last Used Substance: Unknown Review of Systems See HPI for pertinent positives & negatives. and A total of 10 systems reviewed and were otherwise negative Physical Exam Vital Signs Vital Signs - 24 hr 08/26/19 20:42 08/26/19 21:15 08/26/19 21:19 Temperature 37.3 C Temperature Source Oral Pulse Rate 127 H 111 H 111 H Pulse Rate [Apical] Respiratory Rate 18 21 18 Respiratory Effort / Characteristics Non-Labored Spontaneous Respiratory Depth Normal Blood Pressure 163/96 H 147/89 H Blood Pressure [Left Arm] Blood Pressure Mean 118 96 Blood Pressure Mean [Left Arm] Blood Pressure Position Sitting Pulse Oximetry 93 Oxygen Delivery Method Room Air Oxygen Flow Rate Sepsis Recent Fever Within 48 Hours No Sepsis New/Unexplained Change in Mental Status No Sepsis Action Taken by Nursing No Action Required 08/26/19 21:20 08/26/19 22:00 08/26/19 22:14 Temperature Temperature Source Pulse Rate 113 H Pulse Rate [Apical] 102 H 111 H Respiratory Rate 17 16 20 Respiratory Effort / Characteristics Non-Labored Respiratory Depth Normal Blood Pressure Blood Pressure [Left Arm] 148/93 H 158/98 H Blood Pressure Mean Blood Pressure Mean [Left Arm] 111 118 Blood Pressure Position Pulse Oximetry 95 93 Oxygen Delivery Method Room Air Room Air Oxygen Flow Rate Sepsis Recent Fever Within 48 Hours Sepsis New/Unexplained Change in Mental Status Sepsis Action Taken by Nursing 08/26/19 23:31 08/27/19 00:25 08/27/19 01:04 Temperature Temperature Source Pulse Rate Pulse Rate [Apical] 95 H 97 H 99 H Respiratory Rate 20 20 18 Respiratory Effort / Characteristics Respiratory Depth Blood Pressure Blood Pressure [Left Arm] 150/94 H 162/99 H 135/94 Blood Pressure Mean Blood Pressure Mean [Left Arm] 112 120 107 Blood Pressure Position Pulse Oximetry 95 94 94 Oxygen Delivery Method Room Air Nasal Cannula Nasal Cannula Oxygen Flow Rate 2 2 Sepsis Recent Fever Within 48 Hours Sepsis New/Unexplained Change in Mental Status Sepsis Action Taken by Nursing GENERAL: alert, well appearing, well nourished, no distress, non-toxic, smell of EtOH EYE EXAM: normal conjunctiva, PERRL and EOM's grossly intact OROPHARYNX: no exudate, no erythema, lips, buccal mucosa, and tongue normal and mucous membranes are dry NECK: supple, no nuchal rigidity, no adenopathy, non-tender LUNGS: Clear to auscultation. Normal chest wall mechanics, no w/r/r HEART: no murmurs, S1 normal and S2 normal ABDOMEN: abdomen soft, non-tender, normo-active bowel sounds, no masses, no rebound or guarding. BACK: Back is symmetrical on inspection and there is no deformity, no midline tenderness, no CVA tenderness. SKIN: no rashes and no bruising UPPER EXTREMITIES: upper extremities are grossly normal. FROM, nml pulses b/l. LOWER EXTREMITIES: No pitting edema. FROM, nml pulses b/l. NEURO EXAM: Normal sensorium, cranial nerves II-XII grossly intact, normal speech, no gross weakness of arms, no gross weakness of legs. Gross sensation intact. Course Course 0014: Patient continues to be well-appearing here. No evidence of evolving alcohol withdrawal or DTs. Patient asking to eat turkey sandwiches. 0100: No evidence of withdrawal symptoms. VS stable. 0111: Pt signed out to Dr. Murillo. Pt pending sobriety and psych ed case manager eval. Pt wants to go to rehab. No evidence of significant alcohol withdrawal or DT's while in the ER. Pt aware that if he shows signs of significant withdrawal he may need to be admitted medically. Administered Medications Aspirin (Ecotrin Ectab) 81 mg PO DAILY [facility] Stop: 09/26/19 08:59 Last Admin: 08/29/19 08:48 Dose: 81 mg Documented by: [id number] Admin: 08/28/19 08:16 Dose: 81 mg Documented by: [id number] Admin: 08/27/19 08:01 Dose: 81 mg Documented by: [id number] Atorvastatin Calcium (Lipitor) 40 mg PO DAILY [facility] Stop: 09/26/19 08:59 Last Admin: 08/29/19 08:48 Dose: 40 mg Documented by: [id number] Admin: 08/28/19 08:16 Dose: 40 mg Documented by: [id number] Admin: 08/27/19 08:01 Dose: 40 mg Documented by: [id number] Clonidine HCl (Catapres) 0.1 mg PO Q4H PRN PRN Reason: Hypertension Stop: 09/26/19 12:54 Last Admin: 08/29/19 19:24 Dose: 0.1 mg Documented by: [id number] Clopidogrel Bisulfate (Plavix) 75 mg PO DAILY [facility] Stop: 09/26/19 08:59 Last Admin: 08/29/19 08:48 Dose: 75 mg Documented by: [id number] Admin: 08/28/19 08:17 Dose: 75 mg Documented by: [id number] Admin: 08/27/19 08:02 Dose: 75 mg Documented by: [id number] Enoxaparin Sodium (Lovenox) 40 mg SQ QAM [facility] Stop: 09/26/19 08:59 Last Admin: 08/29/19 09:38 Dose: 40 mg Documented by: [id number] Admin: 08/28/19 08:18 Dose: 40 mg Documented by: [id number] Admin: 08/27/19 09:01 Dose: 40 mg Documented by: [id number] Folic Acid (Folvite) 1 mg PO QAM [facility] Stop: 09/26/19 08:59 Last Admin: 08/29/19 08:48 Dose: 1 mg Documented by: [id number] Admin: 08/28/19 08:15 Dose: 1 mg Documented by: [id number] Admin: 08/27/19 08:03 Dose: 1 mg Documented by: [id number] Lorazepam (Ativan) 2 mg in 4 mls @ 4 mls/min IV UD PRN; Protocol PRN Reason: EtOH Withdrawl AWSS Score 8,9 Stop: 09/26/19 06:37 Last Admin: 08/29/19 10:36 Dose: 4 mls/min Documented by: [id number] Admin: 08/28/19 22:50 Dose: 4 mls/min Documented by: [id number] Admin: 08/28/19 19:35 Dose: 4 mls/min Documented by: [id number] Lorazepam (Ativan) 3 mg in 6 mls @ 4 mls/min IV ONCE PRN; Protocol PRN Reason: EtOH Withdrawl AWSS Score >=10 Stop: 09/26/19 06:37 Last Admin: 08/29/19 02:34 Dose: 4 mls/min Documented by: [id number] Lorazepam (Ativan) 1 mg in 2 mls @ 2 mls/min IV UD PRN; Protocol PRN Reason: EtOH Withdrawl AWSS Score 6,7 Stop: 09/26/19 06:37 Last Admin: 08/29/19 23:28 Dose: 2 mls/min Documented by: [id number] Admin: 08/29/19 20:55 Dose: 2 mls/min Documented by: [id number] Admin: 08/29/19 00:24 Dose: 2 mls/min Documented by: [id number] Admin: 08/28/19 13:49 Dose: 2 mls/min Documented by: [id number] Admin: 08/28/19 05:34 Dose: 2 mls/min Documented by: [id number] Admin: 08/28/19 01:13 Dose: 2 mls/min Documented by: [id number] Admin: 08/27/19 21:51 Dose: 2 mls/min Documented by: [id number] Admin: 08/27/19 19:27 Dose: 2 mls/min Documented by: [id number] Admin: 08/27/19 17:05 Dose: 2 mls/min Documented by: [id number] Promethazine HCl 12.5 mg/ (Sodium Chloride) 50.5 mls @ 202 mls/hr IV Q6H PRN PRN Reason: Nausea And Vomiting Stop: 09/26/19 06:37 Last Infusion: 08/29/19 02:02 Dose: 0 mls/hr Documented by: [id number] Admin: 08/29/19 01:34 Dose: 202 mls/hr Documented by: [id number] Insulin Aspart (Novolog Flexpen) 0 units SC ACHS [facility] Stop: 09/26/19 07:29 Last Admin: 08/29/19 20:55 Dose: 6 units Documented by: [id number] Cosigned by: [id number] Admin: 08/29/19 17:26 Dose: 3 units Documented by: [id number] Cosigned by: [id number] Admin: 08/29/19 12:10 Dose: 8 units Documented by: [id number] Cosigned by: [id number] Admin: 08/29/19 08:50 Dose: 6 units Documented by: [id number] Cosigned by: [id number] Admin: 08/28/19 21:16 Dose: 5 units Documented by: [id number] Cosigned by: [id number] Admin: 08/28/19 17:27 Dose: 2 units Documented by: [id number] Cosigned by: [id number] Admin: 08/28/19 12:41 Dose: 9 units Documented by: [id number] Cosigned by: [id number] Admin: 08/28/19 08:22 Dose: 10 units Documented by: [id number] Cosigned by: [id number] Admin: 08/27/19 20:07 Dose: 3 units Documented by: [id number] Cosigned by: [id number] Admin: 08/27/19 17:00 Dose: 5 units Documented by: [id number] Cosigned by: [id number] Admin: 08/27/19 12:20 Dose: 3 units Documented by: [id number] Cosigned by: [id number] Admin: 08/27/19 08:07 Dose: 3 units Documented by: [id number] Cosigned by: [id number] Insulin Detemir (Levemir Flextouch) 40 units SC QDD [facility] Stop: 09/28/19 11:59 Last Admin: 08/29/19 12:10 Dose: 40 units Documented by: [id number] Cosigned by: [id number] Lisinopril (Zestril) 40 mg PO DAILY [facility] Stop: 09/26/19 06:37 Last Admin: 08/29/19 08:47 Dose: 40 mg Documented by: [id number] Admin: 08/28/19 08:15 Dose: 40 mg Documented by: [id number] Admin: 08/27/19 08:00 Dose: 40 mg Documented by: [id number] Metoprolol Succinate (Toprol Xl) 50 mg PO DAILY [facility] Stop: 09/27/19 08:59 Last Admin: 08/29/19 08:47 Dose: 50 mg Documented by: [id number] Admin: 08/28/19 08:17 Dose: 50 mg Documented by: [id number] Miscellaneous (Remove Nicoderm Patch) 1 ea N/A DAILY@0859 [facility] Stop: 09/27/19 08:58 Last Admin: 08/29/19 08:47 Dose: 1 ea Documented by: [id number] Admin: 08/28/19 08:15 Dose: 1 ea Documented by: [id number] Multivitamins (Multivitamin Tab) 1 tab PO [facility] Stop: 09/26/19 08:59 Last Admin: 08/29/19 08:48 Dose: 1 tab Documented by: [id number] Admin: 08/28/19 08:16 Dose: 1 tab Documented by: [id number] Admin: 08/27/19 08:02 Dose: 1 tab Documented by: [id number] Nicotine (Nicoderm Cq) 14 mg TD QAM [facility] Stop: 09/26/19 07:29 Last Admin: 08/29/19 08:46 Dose: 14 mg Documented by: [id number] Admin: 08/28/19 08:17 Dose: 14 mg Documented by: [id number] Admin: 08/27/19 08:00 Dose: 14 mg Documented by: [id number] Oxycodone HCl (Roxicodone Immediate Rel) 5 mg PO Q4H PRN PRN Reason: Pain Stop: 09/10/19 06:37 Last Admin: 08/29/19 19:19 Dose: 5 mg Documented by: [id number] Thiamine HCl (Vitamin B-1) 100 mg PO QAM [facility] Stop: 09/26/19 08:59 Last Admin: 08/29/19 08:47 Dose: 100 mg Documented by: [id number] Admin: 08/28/19 08:16 Dose: 100 mg Documented by: [id number] Admin: 08/27/19 08:03 Dose: 100 mg Documented by: [id number] Trazodone HCl (Desyrel) 50 mg PO HS PRN PRN Reason: Insomnia Stop: 09/26/19 06:37 Last Admin: 08/29/19 01:34 Dose: 50 mg Documented by: [id number] Venlafaxine HCl (Effexor Extended Release) 150 mg PO DAILY [facility] Stop: 09/26/19 08:59 Last Admin: 08/29/19 08:47 Dose: 150 mg Documented by: [id number] Admin: 08/28/19 08:17 Dose: 150 mg Documented by: [id number] Admin: 08/27/19 08:02 Dose: 150 mg Documented by: [id number] Discontinued Medications Clonidine HCl (Catapres) 0.1 mg PO TID PRN PRN Reason: Hypertension Stop: 09/26/19 12:54 Last Admin: 08/28/19 19:35 Dose: 0.1 mg Documented by: [id number] Admin: 08/27/19 19:29 Dose: 0.1 mg Documented by: [id number] Admin: 08/27/19 13:22 Dose: 0.1 mg Documented by: [id number] Clonidine HCl (Catapres) 0.1 mg PO NOW ONE Stop: 08/28/19 22:50 Last Admin: 08/28/19 23:54 Dose: 0.1 mg Documented by: [id number] Gabapentin (Neurontin) 1,200 mg PO NOW STA Stop: 08/27/19 04:46 Last Admin: 08/27/19 04:55 Dose: 1,200 mg Documented by: [id number] Gabapentin (Neurontin) 600 mg PO Q6H [facility] Stop: 08/27/19 18:01 Last Admin: 08/27/19 17:01 Dose: 600 mg Documented by: [id number] Admin: 08/27/19 11:36 Dose: 600 mg Documented by: [id number] Gabapentin (Neurontin) 600 mg PO Q8H [facility] Stop: 08/28/19 22:01 Last Admin: 08/28/19 21:17 Dose: 600 mg Documented by: [id number] Admin: 08/28/19 13:03 Dose: 600 mg Documented by: [id number] Admin: 08/28/19 05:31 Dose: 600 mg Documented by: [id number] Gabapentin (Neurontin) 600 mg PO Q12H [facility] Stop: 08/29/19 22:01 Last Admin: 08/29/19 20:55 Dose: 600 mg Documented by: [id number] Admin: 08/29/19 09:39 Dose: 600 mg Documented by: [id number] Sodium Chloride (Nss 1000ml) 1,000 mls @ 200 mls/hr IV .Q5H [facility] Stop: 09/25/19 20:59 Last Admin: 08/27/19 15:01 Dose: Not Given Documented by: [id number] Infusion: 08/26/19 23:30 Dose: 0 mls/hr Documented by: [id number] Admin: 08/26/19 21:21 Dose: 200 mls/hr Documented by: [id number] Multivitamins 10 ml/ Thiamine HCl 100 mg/ Folic Acid 1 mg/Sodium Chloride 1 ,011.2 mls @ 250 mls/hr IV .Q4H3M ONE Stop: 08/27/19 04:16 Last Infusion: 08/27/19 04:37 Dose: 0 mls/hr Documented by: [id number] Admin: 08/27/19 00:32 Dose: 250 mls/hr Documented by: [id number] Magnesium Sulfate/Dextrose (Magnesium Sulfate / D5w) 1 gm in 100 mls @ 100 mls/hr IV Q1H [facility] Stop: 08/27/19 03:06 Last Infusion: 08/27/19 03:05 Dose: 0 mls/hr Documented by: [id number] Admin: 08/27/19 02:05 Dose: 100 mls/hr Documented by: [id number] Infusion: 08/27/19 02:05 Dose: 100 mls/hr Documented by: [id number] Admin: 08/27/19 01:21 Dose: 100 mls/hr Documented by: [id number] Lorazepam (Ativan) 2 mg in 4 mls @ 4 mls/min IV NOW STA Stop: 08/27/19 04:16 Last Admin: 08/27/19 04:20 Dose: 4 mls/min Documented by: [id number] Magnesium Sulfate/Dextrose (Magnesium Sulfate / D5w) 1 gm in 100 mls @ 50 mls/hr IV ONE ONE Stop: 08/27/19 10:44 Last Infusion: 08/27/19 11:05 Dose: 0 mls/hr Documented by: [id number] Admin: 08/27/19 09:05 Dose: 50 mls/hr Documented by: [id number] Insulin Aspart (Novolog Flexpen) 0 units SC 0000 [facility] Stop: 08/29/19 00:01 Last Admin: 08/28/19 23:54 Dose: 2 units Documented by: [id number] Cosigned by: [id number] Insulin Detemir (Levemir Flextouch) 25 units SC BID [facility] Stop: 08/27/19 23:59 Last Admin: 08/27/19 21:53 Dose: 25 units Documented by: [id number] Cosigned by: [id number] Admin: 08/27/19 08:08 Dose: 25 units Documented by: [id number] Cosigned by: [id number] Insulin Detemir (Levemir Flextouch) 20 units SC BID [facility] Stop: 09/27/19 08:59 Last Admin: 08/28/19 08:26 Dose: 20 units Documented by: [id number] Cosigned by: [id number] Insulin Detemir (Levemir Flextouch) 0 units SC BID [facility]; Protocol Stop: 09/27/19 20:59 Last Admin: 08/28/19 21:12 Dose: 30 units Documented by: [id number] Cosigned by: [id number] Metoprolol Succinate (Toprol Xl) 50 mg PO NOW [facility] Stop: 08/27/19 04:42 Last Admin: 08/27/19 04:55 Dose: 50 mg Documented by: [id number] Medical Decision Making Differential Diagnosis Differential diagnosis includes etiologies such as alcohol intoxication, toxicologic, infection, hypoglycemia, electrolyte abnormalities, cardiac sources, intracerebral event, neurologic, as well as others were entertained. Medical Records Attestation: I reviewed the patient's medical records. Home Medications Current Medication List: was personally reviewed by me Laboratory Data Attestation: I reviewed the patient's lab results. Result diagrams: 08/28/19 07:16 08/28/19 07:16 Lab Results 08/26/19 08/26/19 08/26/19 Range/Units 21:10 21:10 21:10 WBC 5.29 (4.8-10.8) K/uL RBC 4.26 L (4.7-6.1) M/uL Hgb 13.6 L (14.0-18.0) g/dL Hct 39.1 L (42-52) % MCV 91.8 (80-100) fL MCH 31.9 (25-34) pg MCHC 34.8 (32-36) g/dL RDW Std Deviation 40.9 (36.4-46.3) fL RDW Coeff of Alberto 12.2 (11.5-14.5) % Plt Count 174 (130-400) K/uL MPV 9.6 (7.4-10.4) fL Immature Gran % (Auto) 0.0 % Neut % (Auto) 56.1 % Lymph % (Auto) 31.0 % Edmunds % (Auto) 11.0 % Eos % (Auto) 1.3 % Baso % (Auto) 0.6 % Immature Gran # (Auto) 0.00 (0.00-0.02) K/uL Neut # (Auto) 2.97 (1.4-6.5) K/uL Lymph # (Auto) 1.64 (1.2-3.4) K/uL Edmunds # (Auto) 0.58 (0.11-0.59) K/uL Eos # (Auto) 0.07 (0-0.5) K/uL Baso # (Auto) 0.03 (0-0.2) K/uL Sodium 141 (136-145) mmol/L Potassium 4.2 (3.5-5.1) mmol/L Chloride 107 (98-107) mmol/L Carbon Dioxide 24 (21-32) mmol/L Anion Gap 10.0 (3-11) BUN 19 H (7-18) mg/dl Creatinine 1.25 (0.6-1.4) mg/dl Est Cr Clr Drug Dosing Not Reportable Est GFR ( Amer) 74.7 Est GFR (Non-Af Amer) 64.4 BUN/Creatinine Ratio 14.8 (10-20) Glucose 274 H (70-99) mg/dl POC Glucose (70-99) mg/dl Estimat Average Glucose mg/dl Hemoglobin A1c (4.5-5.6) % Calcium 8.3 L (8.5-10.1) mg/dl Magnesium 1.4 L (1.8-2.4) mg/dl Total Bilirubin 0.4 (0.2-1) mg/dl AST 67 H (15-37) U/L ALT 68 (12-78) U/L Alkaline Phosphatase 106 (45-117) U/L Total Protein 7.2 (6.4-8.2) gm/dl Albumin 2.9 L (3.4-5.0) gm/dl Globulin 4.3 H (2.5-4.0) gm/dl Albumin/Globulin Ratio 0.7 L (0.9-2) TSH 1.580 (0.300-4.500) uIu/ml Specimen Hemolysis Urine Color Urine Appearance (Clear) Urine pH (4.5-7.5) Ur Specific Argyle (1.000-1.030) Urine Protein (Negative) Urine Glucose (UA) (Negative) Urine Ketones (Negative) Urine Blood (Negative) Urine Nitrite (Negative) Urine Bilirubin (Negative) Urine Urobilinogen (Negative) Ur Leukocyte Esterase (Negative) Urine WBC (Auto) (0-5) /hpf Urine RBC (Auto) (0-4) /hpf U Hyaline Cast (Auto) (0-5) /lpf U Epithel Cells (Auto) (0-5) /lpf Urine Bacteria (Auto) (Negative) Ur Renal Epithelial Cell (0-5) /lpf Granular Casts (0) /lpf WBC Casts (0) /lpf Salicylates 2.2 L (2.8-20) mg/dl Urine Opiates Screen (Neg) Ur Methadone, Qual (Neg) Acetaminophen < 2 L (10-30) ug/ml Urine Barbiturates (Neg) Ur Phencyclidine (PCP) (Neg) U Amphetamin/Meth Scrn (Neg) MDMA (Ecstasy) Screen (Neg) U Benzodiazepines Scrn (Neg) Ur Cocaine Metabolite (Neg) U Marijuana (THC) Screen (Neg) Ethyl Alcohol mg/dL (0-3) mg/dl 08/26/19 08/26/19 08/26/19 Range/Units 21:10 21:25 22:12 WBC (4.8-10.8) K/uL RBC (4.7-6.1) M/uL Hgb (14.0-18.0) g/dL Hct (42-52) % MCV (80-100) fL MCH (25-34) pg MCHC (32-36) g/dL RDW Std Deviation (36.4-46.3) fL RDW Coeff of Alberto (11.5-14.5) % Plt Count (130-400) K/uL MPV (7.4-10.4) fL Immature Gran % (Auto) % Neut % (Auto) % Lymph % (Auto) % Edmunds % (Auto) % Eos % (Auto) % Baso % (Auto) % Immature Gran # (Auto) (0.00-0.02) K/uL Neut # (Auto) (1.4-6.5) K/uL Lymph # (Auto) (1.2-3.4) K/uL Edmunds # (Auto) (0.11-0.59) K/uL Eos # (Auto) (0-0.5) K/uL Baso # (Auto) (0-0.2) K/uL Sodium (136-145) mmol/L Potassium (3.5-5.1) mmol/L Chloride (98-107) mmol/L Carbon Dioxide (21-32) mmol/L Anion Gap (3-11) BUN (7-18) mg/dl Creatinine (0.6-1.4) mg/dl Est Cr Clr Drug Dosing Est GFR ( Amer) Est GFR (Non-Af Amer) BUN/Creatinine Ratio (10-20) Glucose (70-99) mg/dl POC Glucose (70-99) mg/dl Estimat Average Glucose 214 mg/dl Hemoglobin A1c 9.1 H (4.5-5.6) % Calcium (8.5-10.1) mg/dl Magnesium (1.8-2.4) mg/dl Total Bilirubin (0.2-1) mg/dl AST (15-37) U/L ALT (12-78) U/L Alkaline Phosphatase (45-117) U/L Total Protein (6.4-8.2) gm/dl Albumin (3.4-5.0) gm/dl Globulin (2.5-4.0) gm/dl Albumin/Globulin Ratio (0.9-2) TSH (0.300-4.500) uIu/ml Specimen Hemolysis Urine Color Urine Appearance (Clear) Urine pH (4.5-7.5) Ur Specific Arg[place] (1.000-1.030) Urine Protein (Negative) Urine Glucose (UA) (Negative) Urine Ketones (Negative) Urine Blood (Negative) Urine Nitrite (Negative) Urine Bilirubin (Negative) Urine Urobilinogen (Negative) Ur Leukocyte Esterase (Negative) Urine WBC (Auto) (0-5) /hpf Urine RBC (Auto) (0-4) /hpf U Hyaline Cast (Auto) (0-5) /lpf U Epithel Cells (Auto) (0-5) /lpf Urine Bacteria (Auto) (Negative) Ur Renal Epithelial Cell (0-5) /lpf Granular Casts (0) /lpf WBC Casts (0) /lpf Salicylates (2.8-20) mg/dl Urine Opiates Screen Neg (Neg) Ur Methadone, Qual Neg (Neg) Acetaminophen (10-30) ug/ml Urine Barbiturates Neg (Neg) Ur Phencyclidine (PCP) Neg (Neg) U Amphetamin/Meth Scrn Neg (Neg) MDMA (Ecstasy) Screen Neg (Neg) U Benzodiazepines Scrn Neg (Neg) Ur Cocaine Metabolite Neg (Neg) U Marijuana (THC) Screen Neg (Neg) Ethyl Alcohol mg/dL 244.3 H (0-3) mg/dl 08/26/19 08/27/19 Range/Units 22:12 01:22 WBC (4.8-10.8) K/uL RBC (4.7-6.1) M/uL Hgb (14.0-18.0) g/dL Hct (42-52) % MCV (80-100) fL MCH (25-34) pg MCHC (32-36) g/dL RDW Std Deviation (36.4-46.3) fL RDW Coeff of Alberto (11.5-14.5) % Plt Count (130-400) K/uL MPV (7.4-10.4) fL Immature Gran % (Auto) % Neut % (Auto) % Lymph % (Auto) % Edmunds % (Auto) % Eos % (Auto) % Baso % (Auto) % Immature Gran # (Auto) (0.00-0.02) K/uL Neut # (Auto) (1.4-6.5) K/uL Lymph # (Auto) (1.2-3.4) K/uL Edmunds # (Auto) (0.11-0.59) K/uL Eos # (Auto) (0-0.5) K/uL Baso # (Auto) (0-0.2) K/uL Sodium (136-145) mmol/L Potassium (3.5-5.1) mmol/L Chloride (98-107) mmol/L Carbon Dioxide (21-32) mmol/L Anion Gap (3-11) BUN (7-18) mg/dl Creatinine (0.6-1.4) mg/dl Est Cr Clr Drug Dosing Est GFR ( Amer) Est GFR (Non-Af Amer) BUN/Creatinine Ratio (10-20) Glucose (70-99) mg/dl POC Glucose 255 H (70-99) mg/dl Estimat Average Glucose mg/dl Hemoglobin A1c (4.5-5.6) % Calcium (8.5-10.1) mg/dl Magnesium (1.8-2.4) mg/dl Total Bilirubin (0.2-1) mg/dl AST (15-37) U/L ALT (12-78) U/L Alkaline Phosphatase (45-117) U/L Total Protein (6.4-8.2) gm/dl Albumin (3.4-5.0) gm/dl Globulin (2.5-4.0) gm/dl Albumin/Globulin Ratio (0.9-2) TSH (0.300-4.500) uIu/ml Specimen Hemolysis Urine Color Yellow Urine Appearance Clear (Clear) Urine pH 5.0 (4.5-7.5) Ur Specific [place] 1.021 (1.000-1.030) Urine Protein 3+ H (Negative) Urine Glucose (UA) 3+ H (Negative) Urine Ketones Negative (Negative) Urine Blood 1+ H (Negative) Urine Nitrite Negative (Negative) Urine Bilirubin Negative (Negative) Urine Urobilinogen Negative (Negative) Ur Leukocyte Esterase Negative (Negative) Urine WBC (Auto) 5-10 H (0-5) /hpf Urine RBC (Auto) 5-10 H (0-4) /hpf U Hyaline Cast (Auto) 10-30 H (0-5) /lpf U Epithel Cells (Auto) >30 H (0-5) /lpf Urine Bacteria (Auto) Negative (Negative) Ur Renal Epithelial Cell 0-5 (0-5) /lpf Granular Casts 1-5 H (0) /lpf WBC Casts 1-5 H (0) /lpf Salicylates (2.8-20) mg/dl Urine Opiates Screen (Neg) Ur Methadone, Qual (Neg) Acetaminophen (10-30) ug/ml Urine Barbiturates (Neg) Ur Phencyclidine (PCP) (Neg) U Amphetamin/Meth Scrn (Neg) MDMA (Ecstasy) Screen (Neg) U Benzodiazepines Scrn (Neg) Ur Cocaine Metabolite (Neg) U Marijuana (THC) Screen (Neg) Ethyl Alcohol mg/dL (0-3) mg/dl Blood Pressure Blood Pressure Findings: Elevated blood pressure Blood Pressure Disposition: further management by hospitalist ARMANDO Narrative Patient has no family history of alcohol abuse. Patient was first seen and observation began at 2053 and was necessary in order to determine monitor for sobriety and symptoms of alcohol withdrawal. Upon re-evaluation, 5 hours of observation revealed that the patient could be admitted. Discharge time at 0330. Pt here with alcohol intoxication and he wishes for alcohol rehab. Pt with a long history of alcohol abuse. VS stable while in the ER prior to sign out. Labs reassuring. Thrombocytopenia likely from chronic ETOH. Pt appeared clinically dehydrated. He was given IVF, banana bag, and magnesium was repleted. Discussed with patient risk of significant withdrawal and need for medical admission due to risk of DT's/seizures. Pt verbalized understanding. I do not suspect occult neuro or infectious etiology. Pt well appearing here. Pt aware of all results. No evidence of trauma while intoxicated. Hyperglycemia noted, no evidence of DKA. An order was placed for continuous cardiac monitoring. The monitor shows a rate of _80_ with normal sinus rhythm. 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
[2019-08-26 21:55] LABS: Alanine Aminotransferase 68 U/L (12-78); Albumin Globulin Ratio 0.7 (0.9-2); Albumin Level 2.9 gm/dl (3.4-5.0); Alkaline Phosphatase 106 U/L (45-117); Aspartate Aminotransferase 67 U/L (15-37); BUN Creatinine Ratio 14.8 (10-20); Bilirubin,Total 0.4 mg/dl (0.2-1); Blood Urea Nitrogen 19 mg/dl (7-18); Calcium 8.3 mg/dl (8.5-10.1); Carbon Dioxide 24 mmol/L (21-32); Chloride 107 mmol/L (98-107); Est GFR (African American) 74.7; Est GFR (Non-African American) 64.4; Globulin 4.3 gm/dl (2.5-4.0); Glucose 274 mg/dl (70-99); Potassium 4.2 mmol/L (3.5-5.1); Sodium 141 mmol/L (136-145); Total Protein 7.2 gm/dl (6.4-8.2)
[2019-08-26 22:08] LABS: Acetaminophen < 2 ug/ml (10-30); Salicylate 2.2 mg/dl (2.8-20)
[2019-08-26 22:27] LABS: Appearance Urine Clear (Clear); Bacteria Urine Automated Negative (Negative); Bilirubin Urine Negative (Negative); Blood Urine 1+ (Negative); Color Urine Yellow; Epithelial Cell Urine Auto >30 /lpf (0-5); Glucose Urine UA 3+ (Negative); Ketones Urine Negative (Negative); Leukocyte Esterase Urine Negative (Negative); Nitrite Urine Negative (Negative); Protein Urine 3+ (Negative); Specific Gravity Urine 1.021 (1.000-1.030); Urobilinogen Urine Negative (Negative)
[2019-08-26 22:40] LABS: Renal Epithelial Cells Urine 0-5 /lpf (0-5)
[2019-08-26 22:41] LABS: Amphetamines+Metham, Urine Neg (Neg); Barbiturates, Urine Neg (Neg); Benzodiazepine, Urine Neg (Neg); Cocaine, Urine Neg (Neg); MDMA (Ecstacy), Urine Neg (Neg); Methadone, Urine Neg (Neg); Opiate, Urine Neg (Neg); Phencyclidine, Urine Neg (Neg)
[2019-08-27] MEDS ORDERED: MULTI-VITAMIN INFUSION 10 ML, THIAMINE HCL 100 MG, FOLIC ACID 1 MG in SODIUM CHLORIDE 0... IV ONE (00:14)
[2019-08-27 00:44] LABS: Magnesium 1.4 mg/dl (1.8-2.4)
[2019-08-27] MEDS: MAGNESIUM SULFATE / D5W 1 GM/100 ML BAG IV SCH ×2 (01:21→02:05)
[2019-08-27] MEDS ORDERED: LORazepam 2 MG/4 ML VIAL IV STA (04:15)
--- NOTE | 2019-08-27 04:19 | Emergency Department Note ---
ED Visit Note The patient was taken in signout from Dr. mao at the change of shift. Please see that note for details. The patient was pending clearance of his alcohol intoxication and evaluation by the ED psychiatric case management social worker. The patient was evaluated and he was starting to feel shaky and sweaty. His blood pressure increased and his heart rate increased as well. He felt like he was starting to have withdrawal symptoms. I did evaluate the patient. Apparently in addition to his alcohol that he drank he did take a dose of a benzodiazepine prior to coming in To the ER. Given his medical history, history of seizures, and now experiencing withdrawal symptoms the psychiatric case management social worker felt it would be very difficult to transition him to an inpatient rehab. We discussed treatment in the hospital here. The patient was in agreement. He was given IV Ativan. A consultation was placed with Dr. Moreno. Patient was evaluated in the ER and admitted for further management. .
[2019-08-27] MEDS ORDERED: METOPROLOL SUCC 50MG EXT REL TAB PO STA (04:41)
[2019-08-27] MEDS ORDERED: GABAPENTIN 600 MG TAB PO STA (04:45)
--- NOTE | 2019-08-27 05:12 | History & Physical Report ---
Date of Service August 27, 2019 Assessment & Plan (1) Alcohol withdrawal syndrome without complication: Past history alcohol withdrawal seizures Hypertensive urgency secondary to above chronic systolic heart failure secondary to ischemic cardiomyopathy (EF 45-50 %, TTE 2019), euvolemic to dry CAD status post stent hyperlipidemia, on statin Rx DM 2 insulin requiring, suboptimal control as of recent hemoglobin A1c of 9.20 April 2019 anxiety/mood disorder, suboptimal chronic anemia, hemoglobin at baseline ongoing tobacco abuse Alcoholic hepatitis Medical telemetry DT precautions Facilitate home BP meds, may need titration Basal insulin, ISS BG goal [id number], carb count coverage, update hemoglobin A1c Psych consult RE depression Social service RE discharge planning Nicotine patch DVT prophylaxis. Lovenox subcu Full code Text document was generated using [employer] voice recognition software. It may contain grammatical or spelling errors. Kindly contact undersigned for clarification of any documentation item in question. History of Present Illness Chief Complaint: Detox Primary Care Provider: Dr. Reed History obtained from patient and records. Medical history significant for chronic systolic heart failure secondary to ischemic cardiomyopathy (EF 45-50 %, TTE 2019), CAD status post stent, hypertension, hyperlipidemia, DM 2 insulin requiring, anxiety/mood disorder, chronic anemia (baseline hemoglobin 12-13), ongoing tobacco/alcohol abuse history alcohol withdrawal seizures. Last confinement December 2018 for non-ST elevation MT. Patien patient underwent stent placement for proximal OM occlusion. Patient went back to drinking months ago citing depression and unhappy family situation as stressors. Alcohol withdrawal seizure at home when he tried to quit about 2 months ago. Patient consulted ER yesterday requesting for detox. Denies chest pain, S OB, headache symptoms. Denies suicidality. Medical History as above Surgical History : None Family History : Heart disease, diabetes Personal/Social history : 1/2 to 3/4 pack daily, alcohol abuse, currently unemployed Allergies Allergy/AdvReac Type Severity Reaction Status Date / Time No Known Allergies Allergy Unverified 01/01/19 12:42 Home Medications Home Medications Medication Instructions Recorded Confirmed Type Levemir FlexTouch U-100 Insuln 40 unit SUBCUT HS 12/14/17 08/26/19 History insulin aspart U-100 [Novolog 1 units SUBCUT UD 12/16/17 08/26/19 History Flexpen U-100 Insulin] trazodone 50 mg PO HS PRN 01/01/19 08/26/19 History aspirin [Ecotrin Low Strength] 81 mg PO DAILY 08/26/19 08/26/19 History atorvastatin [Lipitor] 40 mg PO DAILY 08/26/19 08/26/19 History chlorthalidone 25 mg PO DAILY 08/26/19 08/26/19 History clopidogrel [Plavix] 75 mg PO DAILY 08/26/19 08/26/19 History lisinopril [Zestril] 40 mg PO DAILY 08/26/19 08/26/19 History metoprolol succinate [Toprol XL] 50 mg PO DAILY 08/26/19 08/26/19 History spironolactone [Aldactone] 25 mg PO DAILY 08/26/19 08/26/19 History venlafaxine [Effexor XR] 150 mg PO DAILY 08/26/19 08/26/19 History Past Med/Surg History Medical History Alcohol use disorder (Chronic) HTN (hypertension) (Chronic) Mood disorder (Chronic) Neuropathy (Chronic) NSTEMI (non-ST elevated myocardial infarction) (Acute) Obesity (Chronic) CATALINO (obstructive sleep apnea) (Chronic) Tobacco use disorder (Chronic) Type 2 diabetes mellitus (Chronic) Surgical History History of cardiac catheterization (Chronic) 1 ELIESER to proximal OM by Dr. Guerrero on 01/01/19 History of lymph node biopsy (Chronic) Family History Other Heart disease Social History Preferred Language: [place] Communication Ability: Effective Transmission Design Engineer Required: No Beliefs That Will Affect Care: None marital status: Current Living Situation: Family current occupational status: unemployed Feels Safe at Home: Yes Smoking Status: Current every day smoker Tobacco Type: cigarettes ; Cigarettes Per Day: 20/ day ; Hx Alcohol Use: Yes Alcohol type: beer Alcohol type Comment: Endorsing 3-5 beers intermittently over past few weeks. H/o heavy use Hx Substance Use: No Review of Systems Review of Systems: As per HPI, all 10 systems reviewed, all other ROS negative Physical Exam Physical Exam: GENERAL: Comfortable, obese, pleasant, tremulous, no respiratory distress SKIN: Normal color, warm HEENT: [place] palpebral conjunctivae, no ptosis, dry buccal mucosa NECK : Supple, short neck, no tenderness CHEST : Decreased breath sounds, expiratory wheezes that clear on coughing , no tenderness HEART : RRR, systolic murmur ABDOMEN: Some distention, nontender EXTREMITIES : No LE swelling/tenderness, no other conspicuous deformities noted NEUROLOGIC : Coherent, no facial asymmetry, tremulous Results & Data Results & Data ([facility]) Vital Signs (Past 12 Hours) Vital Signs Temp Pulse Pulse Resp BP BP Pulse Ox 08/27/19 04:58 93 H 20 185/107 H 95 08/27/19 04:07 93 H 20 192/113 H 92 08/27/19 02:50 96 H 18 143/83 H 93 08/27/19 02:04 96 H 18 165/106 H 93 08/27/19 01:04 99 H 18 135/94 94 08/27/19 00:25 97 H 20 162/99 H 94 08/26/19 23:31 95 H 20 150/94 H 95 08/26/19 22:14 111 H 20 158/98 H 93 08/26/19 22:00 102 H 16 148/93 H 95 08/26/19 21:20 113 H 17 08/26/19 21:19 111 H 18 08/26/19 21:15 111 H 21 147/89 H 08/26/19 20:42 37.3 C 127 H 18 163/96 H 93 Laboratory Results Laboratory Results WBC 5.29 K/uL (4.8-10.8) 08/26/19 21:10 RBC 4.26 M/uL (4.7-6.1) L 08/26/19 21:10 Hgb 13.6 g/dL (14.0-18.0) L 08/26/19 21:10 Hct 39.1 % (42-52) L 08/26/19 21:10 MCV 91.8 fL (80-100) 08/26/19 21:10 MCH 31.9 pg (25-34) 08/26/19 21:10 MCHC 34.8 g/dL (32-36) 08/26/19 21:10 RDW Std Deviation 40.9 fL (36.4-46.3) 08/26/19 21:10 RDW Coeff of Alberto 12.2 % (11.5-14.5) 08/26/19 21:10 Plt Count 174 K/uL (130-400) 08/26/19 21:10 MPV 9.6 fL (7.4-10.4) 08/26/19 21:10 Immature Gran % (Auto) 0.0 % 08/26/19 21:10 Neut % (Auto) 56.1 % 08/26/19 21:10 Lymph % (Auto) 31.0 % 08/26/19 21:10 [place] % (Auto) 11.0 % 08/26/19 21:10 Eos % (Auto) 1.3 % 08/26/19 21:10 Baso % (Auto) 0.6 % 08/26/19 21:10 Immature Gran # (Auto) 0.00 K/uL (0.00-0.02) 08/26/19 21:10 Neut # (Auto) 2.97 K/uL (1.4-6.5) 08/26/19 21:10 Lymph # (Auto) 1.64 K/uL (1.2-3.4) 08/26/19 21:10 [place] # (Auto) 0.58 K/uL (0.11-0.59) 08/26/19 21:10 Eos # (Auto) 0.07 K/uL (0-0.5) 08/26/19 21:10 Baso # (Auto) 0.03 K/uL (0-0.2) 08/26/19 21:10 Sodium 141 mmol/L (136-145) 08/26/19 21:10 Potassium 4.2 mmol/L (3.5-5.1) 08/26/19 21:10 Chloride 107 mmol/L (98-107) 08/26/19 21:10 Carbon Dioxide 24 mmol/L (21-32) 08/26/19 21:10 Anion Gap 10.0 (3-11) 08/26/19 21:10 BUN 19 mg/dl (7-18) H 08/26/19 21:10 Creatinine 1.25 mg/dl (0.6-1.4) 08/26/19 21:10 Est Cr Clr Drug Dosing Not Reportable 08/26/19 21:10 Est GFR ( Amer) 74.7 08/26/19 21:10 Est GFR (Non-Af Amer) 64.4 08/26/19 21:10 BUN/Creatinine Ratio 14.8 (10-20) 08/26/19 21:10 Glucose 274 mg/dl (70-99) H 08/26/19 21:10 POC Glucose 255 mg/dl (70-99) H 08/27/19 01:22 Calcium 8.3 mg/dl (8.5-10.1) L 08/26/19 21:10 Magnesium 1.4 mg/dl (1.8-2.4) L 08/26/19 21:10 Total Bilirubin 0.4 mg/dl (0.2-1) 08/26/19 21:10 AST 67 U/L (15-37) H 08/26/19 21:10 ALT 68 U/L (12-78) 08/26/19 21:10 Alkaline Phosphatase 106 U/L (45-117) 08/26/19 21:10 Total Protein 7.2 gm/dl (6.4-8.2) 08/26/19 21:10 Albumin 2.9 gm/dl (3.4-5.0) L 08/26/19 21:10 Globulin 4.3 gm/dl (2.5-4.0) H 08/26/19 21:10 Albumin/Globulin Ratio 0.7 (0.9-2) L 08/26/19 21:10 TSH 1.580 uIu/ml (0.300-4.500) 08/26/19 21:10 Specimen Hemolysis 08/26/19 21:10 Urine Color Yellow 08/26/19 22:12 Urine Appearance Clear (Clear) 08/26/19 22:12 Urine pH 5.0 (4.5-7.5) 08/26/19 22:12 Ur Specific [place] 1.021 (1.000-1.030) 08/26/19 22:12 Urine Protein 3+ (Negative) H 08/26/19 22:12 Urine Glucose (UA) 3+ (Negative) H 08/26/19 22:12 Urine Ketones Negative (Negative) 08/26/19 22:12 Urine Blood 1+ (Negative) H 08/26/19 22:12 Urine Nitrite Negative (Negative) 08/26/19 22:12 Urine Bilirubin Negative (Negative) 08/26/19 22:12 Urine Urobilinogen Negative (Negative) 08/26/19 22:12 Ur Leukocyte Esterase Negative (Negative) 08/26/19 22:12 Urine WBC (Auto) 5-10 /hpf (0-5) H 08/26/19 22:12 Urine RBC (Auto) 5-10 /hpf (0-4) H 08/26/19 22:12 U Hyaline Cast (Auto) 10-30 /lpf (0-5) H 08/26/19 22:12 U Epithel Cells (Auto) >30 /lpf (0-5) H 08/26/19 22:12 Urine Bacteria (Auto) Negative (Negative) 08/26/19 22:12 Ur Renal Epithelial Cell 0-5 /lpf (0-5) 08/26/19 22:12 Granular Casts 1-5 /lpf (0) H 08/26/19 22:12 WBC Casts 1-5 /lpf (0) H 08/26/19 22:12 Salicylates 2.2 mg/dl (2.8-20) L 08/26/19 21:10 Urine Opiates Screen Neg (Neg) 08/26/19 22:12 Ur Methadone, Qual Neg (Neg) 08/26/19 22:12 Acetaminophen < 2 ug/ml (10-30) L 08/26/19 21:10 Urine Barbiturates Neg (Neg) 08/26/19 22:12 Ur Phencyclidine (PCP) Neg (Neg) 08/26/19 22:12 U Amphetamin/Meth Scrn Neg (Neg) 08/26/19 22:12 MDMA (Ecstasy) Screen Neg (Neg) 08/26/19 22:12 U Benzodiazepines Scrn Neg (Neg) 08/26/19 22:12 Ur Cocaine Metabolite Neg (Neg) 08/26/19 22:12 U Marijuana (THC) Screen Neg (Neg) 08/26/19 22:12 Ethyl Alcohol mg/dL 244.3 mg/dl (0-3) H 08/26/19 21:25 Diagnostic Findings EKG as per my interpretation rate 115, sinus tachycardia, LAD, LAFB, no ischemia
[2019-08-27 06:21] LABS: Estimated Average Glucose 214 mg/dl; Hemoglobin A1C 9.1 % (4.5-5.6)
[2019-08-27] MEDS ORDERED: TRAZODONE HCL 50 MG TAB PO PRN (06:38)
[2019-08-27] MEDS ORDERED: GABAPENTIN 1200MG ALCOHOL WITHDRAWAL LOAD PO STA (06:38)
[2019-08-27] MEDS ORDERED: GLUCOSE 10 TABS/TUBE PO PRN (06:38)
[2019-08-27] MEDS ORDERED: CARBOHYDRATES FOR HYPOGLYCEMIA PO PRN (06:38)
[2019-08-27] MEDS ORDERED: GLUCOSE 40% GEL 15 GM TUBE PO PRN (06:38)
[2019-08-27] MEDS ORDERED: ATIVAN IV ALCOHOL WITHDRAWL IV PRN (06:38)
[2019-08-27] MEDS ORDERED: GLUCAGON FOR INJ 1 MG VIAL SQ PRN (06:38)
[2019-08-27] MEDS ORDERED: IPRATROPIUM BROMIDE NEB SOLN 0.02% 2.5 ML VIAL INH PRN (06:38)
[2019-08-27] MEDS ORDERED: XOPENEX/ATROVENT 1.25mg/0.5MG NEB COMBO NEB PRN (06:38)
[2019-08-27] MEDS ORDERED: PROMETHAZINE HCL 12.5 MG in SODIUM CHLORIDE 0.9% 50 ML IV PRN (06:38)
[2019-08-27] MEDS ORDERED: DEXTROSE 50% 50 ML SYRINGE IV PRN (06:38)
[2019-08-27] MEDS ORDERED: LEVALBUTEROL 1.25MG/0.5ML NEB INH PRN (06:38)
[2019-08-27] MEDS ORDERED: LORazepam 3 MG/6 ML VIAL IV PRN (06:38)
--- NOTE | 2019-08-27 06:42 | Electrocardiogram Report ---
Test Reason : Blood Pressure : / mmHG Vent. Rate : 112 BPM Atrial Rate : 112 BPM P-R Int : 164 ms QRS Dur : 096 ms QT Int : 324 ms P-R-T Axes : 055 -22 064 degrees QTc Int : 442 ms Poor data quality, interpretation may be adversely affected Sinus tachycardia Otherwise normal ECG When compared with ECG of 01-JAN-2019 15:50, Vent. rate has increased BY 42 BPM Nonspecific T wave abnormality no longer evident in Anterolateral leads Confirmed by Dandre Lea ([id number]) on 08/27/2019 6:41:29 AM Referred By: REFERRED SELF Confirmed By:Dandre Lea
[2019-08-27 07:23] LABS: Basophils # (auto) 0.01 K/uL (0-0.2); Basophils % (auto) 0.2 %; Eosinophils # (auto) 0.09 K/uL (0-0.5); Eosinophils % (auto) 1.9 %; Hematocrit (blood only) 36.2 % (42-52); Hemoglobin 12.2 g/dL (14.0-18.0); Immature Granulocytes # (auto) 0.01 K/uL (0.00-0.02); Immature Granulocytes % (auto) 0.2 %; Lymphocytes # (auto) 1.63 K/uL (1.2-3.4); Lymphocytes % (auto) 34.8 %; Mean Corpuscular Hemoglobin 31.1 pg (25-34); Mean Corpuscular Hgb Conc 33.7 g/dL (32-36); Mean Corpuscular Volume 92.3 fL (80-100); Monocytes # (auto) 0.48 K/uL (0.11-0.59); Monocytes % (auto) 10.2 %; Neutrophils # (auto) 2.47 K/uL (1.4-6.5); Neutrophils % (auto) 52.7 %; Platelet Count 122 K/uL (130-400); RDW Coefficient of Variation 12.2 % (11.5-14.5); RDW Standard Deviation 41.3 fL (36.4-46.3); Red Blood Count 3.92 M/uL (4.7-6.1); White Blood Count 4.69 K/uL (4.8-10.8)
[2019-08-27 07:34] LABS: Prothrombin Time 10.8 Seconds (9.0-12.0)
--- NOTE | 2019-08-27 07:57 | XRay Report ---
XR chest 1V portable CLINICAL HISTORY: wheeze COMPARISON STUDY: 01/01/2019 FINDINGS: The heart is borderline enlarged. There is no failure. There is no focal pulmonary consolid ation. There are no pleural effusions.[ IMPRESSION: No active disease in the chest. ACT 112: Negative or not required by law. Electronically signed by: David Meneses M.D. 08/27/2019 7:56 AM
[2019-08-27 07:58] LABS: Albumin Globulin Ratio 0.6 (0.9-2); Albumin Level 2.4 gm/dl (3.4-5.0); BUN Creatinine Ratio 19.8 (10-20); Bilirubin,Total 0.5 mg/dl (0.2-1); Calcium 8.2 mg/dl (8.5-10.1); Creatinine Clr Calc Pharmacy 114.9 ml/min; Est GFR (African American) 109.6; Est GFR (Non-African American) 94.5; Magnesium 1.6 mg/dl (1.8-2.4); Potassium 4.1 mmol/L (3.5-5.1); Total Protein 6.4 gm/dl (6.4-8.2)
[2019-08-27] MEDS: lisinopriL 40 MG TAB PO SCH (08:00)
[2019-08-27] MEDS: NICOTINE 14 MG/24 HR PATCH TD SCH (08:00)
[2019-08-27] MEDS: ASPIRIN 81 MG ECTAB PO SCH (08:01)
[2019-08-27] MEDS: ATORVASTATIN 40 MG TAB PO SCH (08:01)
[2019-08-27] MEDS: CLOPIDOGREL BISULFATE 75 MG TAB PO SCH (08:02)
[2019-08-27] MEDS: VENLAFAXINE HCL XR 150 MG CAPXR PO SCH (08:02)
[2019-08-27] MEDS: MULTIVITAMIN TAB PO SCH (08:02)
[2019-08-27] MEDS: FOLIC ACID 1 MG TAB PO SCH (08:03)
[2019-08-27] MEDS: THIAMINE HCL 100 MG TAB PO SCH (08:03)
[2019-08-27] MEDS: INSULIN ASPART 100 UNITS/ML 3 ML PEN SC SCH ×4 (08:07→20:07)
[2019-08-27] MEDS: INSULIN DETEMIR FLEXPEN/FLEX TOUCH 100 UNITS/ML 3ML SC SCH ×2 (08:08→21:53)
[2019-08-27] MEDS ORDERED: MAGNESIUM SULFATE / D5W 1 GM/100 ML BAG IV ONE (08:45)
[2019-08-27] MEDS: ENOXAPARIN INJ 40 MG/0.4 ML SYR SQ SCH (09:01)
[2019-08-27] MEDS: GABAPENTIN 600 MG TAB PO SCH ×2 (11:36→17:01)
[2019-08-27] MEDS: cloNIDine HCL 0.1 MG TAB PO PRN ×2 (13:22→19:29)
[2019-08-27] MEDS: SODIUM CHLORIDE 0.9% 1000ML 1,000 ML IV SCH (15:01)
[2019-08-27] MEDS ORDERED: PHARMACY GLYCEMIC MGMT CONSULT PRN (15:35)
--- NOTE | 2019-08-27 16:41 | Hospitalist Progress Note ---
Date of Service August 27, 2019 Assessment & Plan (1) Alcohol withdrawal syndrome without complication: Alcohol withdrawal H/O Alcohol withdrawal seizures Alcohol level:244 Tox Screen: negative Monitor for withdrawal seizure/fall precautions Alcohol withdrawal protocol with gabapentin, Ativan PRN Continue Thiamine, folic acid Refused Psychiatry eval Likely needs Rehab placement if patient agrees Hypertensive Urgency Secondary to above Continue lisinopril, Metoprolol Clonidine PRN Hypomagnesemia Replete electrolytes as needed Chronic systolic heart failure H/O Ischemic cardiomyopathy EF 45-50 %, TTE 2018 Resume home diuretics as able CAD S/P Stent Continue Aspirin, Plavix, Statin, Metoprolol Hyperlipidemia on statin DM II HbA1C:9.1 Continue Insulin therapy Monitor BGs Anxiety/mood disorder Refused Psychiatry eval Continue Venlafaxine, Trazodone Chronic anemia Hb at baseline Tobacco use Disorder Nicotine patch DVT Px: Lovenox SQ Code Status Full code Disposition May need Rehab rehab facility Admission and Anticipated Discharge Date Admission Date: August 27, 2019 Subjective Patient is seen and examined at bedside Reports transient dizziness with ambulation Denies any chest pain, shortness of breath, nausea, abdominal pain Admits to undergoing through stress Offers no other complaints Review of Systems Review of Systems: All systems reviewed & are unremarkable except as noted in HPI & below Physical Exam Physical Exam: Physical Exam: Vitals signs as noted above General Appearance:Obese, no apparent distress Head: normocephalic, Atraumatic Eyes: normal inspection, EOMI Neck: supple, Trachea midline Respiratory/Chest: Normal breath sounds, CTA, No accessory muscle use Cardiovascular: S1, S2, No murmur Abdomen/GI:Soft, Non tender, Bowel sounds present Extremities/Musculoskelatal:normal inspection, 1+ B/L LE edema Neurologic/Psych:AAOX3, grossly no focal neurological deficits Skin: normal color, warm Results & Data Results & Data ([facility]) Vital Signs (Past 12 Hours) Vital Signs Temp Pulse Pulse Resp BP Pulse Ox 08/27/19 15:40 36.5 C 77 77 18 166/102 H 92 08/27/19 12:47 36.9 C 85 18 202/107 H 95 08/27/19 06:40 36.7 C 84 18 168/96 H 98 08/27/19 05:37 90 18 167/104 H 96 08/27/19 04:58 93 H 20 185/107 H 95 Laboratory Results Short CBC 08/26/19 08/27/19 Range/Units 21:10 07:07 WBC 5.29 4.69 L (4.8-10.8) K/uL Hgb 13.6 L 12.2 L (14.0-18.0) g/dL Hct 39.1 L 36.2 L (42-52) % Plt Count 174 122 L (130-400) K/uL BMP 08/26/19 08/27/19 21:10 07:07 Sodium 141 140 Potassium 4.2 4.1 Chloride 107 109 H Carbon Dioxide 24 26 BUN 19 H 18 Creatinine 1.25 0.91 D Glucose 274 H 206 H Calcium 8.3 L 8.2 L Liver Function 08/26/19 08/27/19 Range/Units 21:10 07:07 Total Bilirubin 0.4 0.5 (0.2-1) mg/dl AST 67 H 56 H (15-37) U/L ALT 68 57 (12-78) U/L Alkaline Phosphatase 106 94 (45-117) U/L Albumin 2.9 L 2.4 L (3.4-5.0) gm/dl Urine 08/26/19 Range/Units 22:12 Urine Color Yellow Urine Appearance Clear (Clear) Urine pH 5.0 (4.5-7.5) Ur Specific [place] 1.021 (1.000-1.030) Urine Protein 3+ H (Negative) Urine Glucose (UA) 3+ H (Negative)
[2019-08-27] MEDS: LORazepam 1 MG/2 ML VIAL IV PRN ×3 (17:05→21:51)
[2019-08-28] MEDS: LORazepam 1 MG/2 ML VIAL IV PRN ×3 (01:13→13:49)
[2019-08-28] MEDS: GABAPENTIN 600 MG TAB PO SCH ×3 (05:31→21:17)
[2019-08-28 07:43] LABS: Hematocrit (blood only) 35.4 % (42-52); Hemoglobin 12.3 g/dL (14.0-18.0); Mean Corpuscular Hemoglobin 31.9 pg (25-34); Mean Corpuscular Hgb Conc 34.7 g/dL (32-36); Mean Corpuscular Volume 91.9 fL (80-100); Mean Platelet Volume 9.8 fL (7.4-10.4); Platelet Count 118 K/uL (130-400); RDW Coefficient of Variation 11.9 % (11.5-14.5); Red Blood Count 3.85 M/uL (4.7-6.1); White Blood Count 3.78 K/uL (4.8-10.8)
[2019-08-28] MEDS: lisinopriL 40 MG TAB PO SCH (08:15)
[2019-08-28] MEDS: FOLIC ACID 1 MG TAB PO SCH (08:15)
[2019-08-28] MEDS: ASPIRIN 81 MG ECTAB PO SCH (08:16)
[2019-08-28] MEDS: MULTIVITAMIN TAB PO SCH (08:16)
[2019-08-28] MEDS: THIAMINE HCL 100 MG TAB PO SCH (08:16)
[2019-08-28] MEDS: ATORVASTATIN 40 MG TAB PO SCH (08:16)
[2019-08-28] MEDS: NICOTINE 14 MG/24 HR PATCH TD SCH (08:17)
[2019-08-28] MEDS: VENLAFAXINE HCL XR 150 MG CAPXR PO SCH (08:17)
[2019-08-28] MEDS: CLOPIDOGREL BISULFATE 75 MG TAB PO SCH (08:17)
[2019-08-28] MEDS: METOPROLOL SUCC 50MG EXT REL TAB PO SCH (08:17)
[2019-08-28] MEDS: ENOXAPARIN INJ 40 MG/0.4 ML SYR SQ SCH (08:18)
[2019-08-28 08:20] LABS: Calcium 8.5 mg/dl (8.5-10.1); Creatinine Clr Calc Pharmacy 107.8 ml/min; Est GFR (African American) 101.4; Est GFR (Non-African American) 87.5; Magnesium 1.5 mg/dl (1.8-2.4); Potassium 4.2 mmol/L (3.5-5.1)
[2019-08-28] MEDS: INSULIN ASPART 100 UNITS/ML 3 ML PEN SC SCH ×4 (08:22→21:16)
[2019-08-28] MEDS ORDERED: INSULIN DETEMIR FLEXPEN/FLEX TOUCH 100 UNITS/ML 3ML SC SCH ×3 (09:00→21:00)
--- NOTE | 2019-08-28 13:17 | Hospitalist Progress Note ---
Date of Service August 28, 2019 Assessment & Plan (1) Alcohol withdrawal syndrome without complication: Alcohol withdrawal H/O Alcohol withdrawal seizures Alcohol level:244 Tox Screen: negative seizure/fall precautions Alcohol withdrawal protocol with gabapentin, Ativan PRN Continue Thiamine, folic acid Clinically much better with minimal tremors but he still requires one-to-one sitter He is agreeable to go to inpatient rehab and social service has been working on that Denies any significant symptoms today Continue PT and OT evaluation Hypertensive Urgency Secondary to above Continue lisinopril, Metoprolol Clonidine PRN -blood pressure remains elevated Hypomagnesemia Replete electrolytes as needed Magnesium level is 1.5-seems to be reasonable Chronic systolic heart failure H/O Ischemic cardiomyopathy EF 45-50 %, TTE 2018 Resume home diuretics as able CAD S/P Stent Continue Aspirin, Plavix, Statin, Metoprolol No acute issue Hyperlipidemia on statin DM II HbA1C:9.1 Continue Insulin therapy Monitor BGs Anxiety/mood disorder Refused Psychiatry eval Continue Venlafaxine, Trazodone No acute delirium Chronic anemia Hb at baseline Tobacco use Disorder Nicotine patch DVT Px: Lovenox SQ Code Status Full code Disposition Willing to go to inpatient rehab for alcohol abuse issue Admission and Anticipated Discharge Date Admission Date: August 27, 2019 Subjective The patient was seen and examined in medical floor He was admitted with alcohol withdrawal and requiring one-to-one sitter He remains generally weak with minimal tremor on outstretched hands Denies any other significant symptoms He is awaiting inpatient rehab Review of Systems Review of Systems: All systems reviewed and are unremarkable except as noted below Neurologic: + generalized weakness, + numbness (Minimal numbness involving the fingers) and + tremor(s) (Mild to moderate tremor on outstretched hands); no co nfusion Physical Exam Physical Exam: Lying in bed without any significant symptoms Constitutional: well developed, well nourished and + ill appearing; no acute distress Eyes: PERRL, conjunctivae normal, anicteric sclerae ENMT: external ear and nose normal, oropharynx normal Neck: trachea midline, no thyromegaly Respiratory: normal respiratory effort; no respiratory distress Auscultation: lungs clear to auscultation bilaterally Cardiovascular: Rate/Rhythm: regular rate and regular rhythm Heart Sounds: no murmur Gastrointestinal (Abdomen): Inspection/Auscultation: abdomen normal to inspection and normal bowel sounds Percussion/Palpation: abdomen soft; abdomen nontender Musculoskeletal: No acute arthritis involving any joints Neurologic: moves all extremities; no focal motor deficits Speech / Cognition: normal speech Motor/Sensory: + tremor (Mild to moderate tremors involving the outstretched hands) Psychiatric: Orientation: alert and oriented x 3 Judgement: good judgement (Wants to go to inpatient rehab) Results & Data Results & Data ([facility]) Vital Signs (Past 12 Hours) Vital Signs Temp Pulse Resp BP Pulse Ox 08/28/19 10:58 36.5 C 71 20 173/91 H 94 08/28/19 07:08 36.7 C 75 20 175/96 H 94 08/28/19 02:58 36.6 C 74 20 163/105 H 95 Laboratory Results Short CBC 08/28/19 Range/Units 07:16 WBC 3.78 L (4.8-10.8) K/uL Hgb 12.3 L (14.0-18.0) g/dL Hct 35.4 L (42-52) % Plt Count 118 L (130-400) K/uL BMP 08/28/19 07:16 Sodium 137 Potassium 4.2 Chloride 104 Carbon Dioxide 29 BUN 21 H Creatinine 0.97 Glucose 235 H Calcium 8.5 Medications Administered Current Inpatient Medications Aspirin (Ecotrin Ectab) 81 mg PO DAILY [facility] Stop: 09/26/19 08:59 Last Admin: 08/28/19 08:16 Dose: 81 mg Documented by: Atorvastatin Calcium (Lipitor) 40 mg PO DAILY [facility] Stop: 09/26/19 08:59 Last Admin: 08/28/19 08:16 Dose: 40 mg Documented by: Clonidine HCl (Catapres) 0.1 mg PO TID PRN PRN Reason: Hypertension Stop: 09/26/19 12:54 Last Admin: 08/27/19 19:29 Dose: 0.1 mg Documented by: Clopidogrel Bisulfate (Plavix) 75 mg PO DAILY [facility] Stop: 09/26/19 08:59 Last Admin: 08/28/19 08:17 Dose: 75 mg Documented by: Dextrose (Dextrose 50%) 25 - 50 ml IV UD PRN; Protocol PRN Reason: Hypoglycemia Protocol Stop: 09/26/19 06:37 Enoxaparin Sodium (Lovenox) 40 mg SQ QAM [facility] Stop: 09/26/19 08:59 Last Admin: 08/28/19 08:18 Dose: 40 mg Documented by: Folic Acid (Folvite) 1 mg PO QAM [facility] Stop: 09/26/19 08:59 Last Admin: 08/28/19 08:15 Dose: 1 mg Documented by: Gabapentin (Neurontin) 600 mg PO Q8H [facility] Stop: 08/28/19 22:01 Last Admin: 08/28/19 13:03 Dose: 600 mg Documented by: Gabapentin (Neurontin) 600 mg PO Q12H [facility] Stop: 08/29/19 22:01 Gabapentin (Neurontin) 600 mg PO Q24H [facility] Stop: 08/30/19 22:01 Glucagon (Glucagen) 1 mg SQ UD PRN; Protocol PRN Reason: Hypoglycemia Protocol Stop: 09/26/19 06:37 Glucose (Dex4 Glucose) 4 - 8 tabs PO UD PRN; Protocol PRN Reason: Hypoglycemia Protocol Stop: 09/26/19 06:37 Glucose (Glucose 40%) 15 - 30 gm PO UD PRN; Protocol PRN Reason: Hypoglycemia Protocol Stop: 09/26/19 06:37 Lorazepam (Ativan) 2 mg in 4 mls @ 4 mls/min IV UD PRN; Protocol PRN Reason: EtOH Withdrawl AWSS Score 8,9 Stop: 09/26/19 06:37 Lorazepam (Ativan) 3 mg in 6 mls @ 4 mls/min IV ONCE PRN; Protocol PRN Reason: EtOH Withdrawl AWSS Score >=10 Stop: 09/26/19 06:37 Lorazepam (Ativan) 1 mg in 2 mls @ 2 mls/min IV UD PRN; Protocol PRN Reason: EtOH Withdrawl AWSS Score 6,7 Stop: 09/26/19 06:37 Last Admin: 08/28/19 05:34 Dose: 2 mls/min Documented by: Promethazine HCl 12.5 mg/ (Sodium Chloride) 50.5 mls @ 202 mls/hr IV Q6H PRN PRN Reason: Nausea And Vomiting Stop: 09/26/19 06:37 Insulin Aspart (Novolog Flexpen) 0 units SC ACHS [facility] Stop: 09/26/19 07:29 Last Admin: 08/28/19 12:41 Dose: 9 units Documented by: Insulin Detemir (Levemir Flextouch) 20 units SC BID [facility] Stop: 09/27/19 08:59 Last Admin: 08/28/19 08:26 Dose: 20 units Documented by: Ipratropium [place] (Atrovent 0.02% 0.5mg/2.5ml) 0.5 mg INH Q4R PRN PRN Reason: Shortness Of Breath Stop: 09/26/19 06:37 Levalbuterol HCl (Xopenex 1.25mg/0.5ml Neb) 1.25 mg INH Q4R PRN PRN Reason: Shortness Of Breath Stop: 09/26/19 06:37 Lisinopril (Zestril) 40 mg PO DAILY [facility] Stop: 09/26/19 06:37 Last Admin: 08/28/19 08:15 Dose: 40 mg Documented by: Metoprolol Succinate (Toprol Xl) 50 mg PO DAILY [facility] Stop: 09/27/19 08:59 Last Admin: 08/28/19 08:17 Dose: 50 mg Documented by: Miscellaneous (Remove Nicoderm Patch) 1 ea N/A DAILY@0859 [facility] Stop: 09/27/19 08:58 Last Admin: 08/28/19 08:15 Dose: 1 ea Documented by: Miscellaneous (Carbohydrates For Hypoglycemia) 15 - 30 gm PO UD PRN PRN Reason: Hypoglycemia Protocol Stop: 09/26/19 06:37 Miscellaneous Information (Consult Glycemic Management Pharmacy) 1 ea N/A UD PRN PRN Reason: Consult Stop: 09/26/19 15:34 Multivitamins (Multivitamin Tab) 1 tab PO QAM [facility] Stop: 09/26/19 08:59 Last Admin: 08/28/19 08:16 Dose: 1 tab Documented by: Nicotine (Nicoderm Cq) 14 mg TD QAM [facility] Stop: 09/26/19 07:29 Last Admin: 08/28/19 08:17 Dose: 14 mg Documented by: Oxycodone HCl (Roxicodone Immediate Rel) 5 mg PO Q4H PRN PRN Reason: Pain Stop: 09/10/19 06:37 Thiamine HCl (Vitamin B-1) 100 mg PO QAM [facility] Stop: 09/26/19 08:59 Last Admin: 08/28/19 08:16 Dose: 100 mg Documented by: Trazodone HCl (Desyrel) 50 mg PO HS PRN PRN Reason: Insomnia Stop: 09/26/19 06:37 Venlafaxine HCl (Effexor Extended Release) 150 mg PO DAILY [facility] Stop: 09/26/19 08:59 Last Admin: 08/28/19 08:17 Dose: 150 mg Documented by:
--- NOTE | 2019-08-28 15:20 | Pharmacy Report ---
Glycemic Control Consultation - Date of Service August 28, 2019 - Scope Scope: Glycemic Pharmacist consulted for glycemic control and to write orders per [facility] inpatient glycemic control protocol. - Objective Weight: 115.3 kg Accuchecks BSG (last 24hrs): 08/27/19 08/27/19 08/28/19 16:34 20:02 07:16 Glucose 235 H POC Glucose 171 H 177 H 08/28/19 08/28/19 07:22 11:23 Glucose POC Glucose 246 H 200 H Laboratory Data (last 24hrs): 08/28/19 07:16 Potassium 4.2 Carbon Dioxide 29 Anion Gap 5.0 Creatinine 0.97 Est Cr Clr Drug Dosing 107.8 HbA1c: Hemoglobin A1c 9.1 % (4.5-5.6) H 08/26/19 21:10 - Recent Pertinent Medications Outpatient Anti-diabetic Regimen: * Levemir 40 units HS, Novolog SSI * A1c = 9.1 % 08/2019 Risk Factors for Insulin Resistance: * Diet: t2dm - Assessment & Plan Assessment & Plan: ASSESSMENT: * 54 year old male admitted with alcohol withdrawal. Pharmacy consulted for glycemic management. * Patient received 64 units of insulin yesterday, of which 50 were basal insulin - BSGs < 180 * Fasting BSG elevated at 235 - plan to tighten CF / scale for Lantus for BID dosing PLAN FOR INPATIENT GLYCEMIC CONTROL: * Basal insulin * Lantus 20-30 units BID * Bolus insulin * NovoLog per scale ACHS or Q6hrs while NPO * Goal Range: Low 110 mg/dL - High 140 mg/dL * Correction Factor: 20 mg/dL/unit * Nutritional / Prandial insulin per carb ratio of 1 unit per 9 grams CHO consumed OR PLAN FOR INPATIENT GLYCEMIC CONTROL: * Continuing / Increasing / decreasing Lantus/NPH to [] units SQ BID * Continuing / changing correction factor to [] mg/dl/unit * Continuing / changing carb ratio to 1 unit per [] grams CHO consumed * Continuing / changing goal range to Low [] mg/dL - High [] mg/dL * Please note that the plan above was derived based on current level of insulin resistance and hospital stress. These recommendations are appropriate for inpatient admission only. Plan of care upon discharge will need to be reassessed to avoid potential outpatient hypo/hyperglycemia. Thank you.
[2019-08-28] MEDS: cloNIDine HCL 0.1 MG TAB PO PRN (19:35)
[2019-08-28] MEDS: LORazepam 2 MG/4 ML VIAL IV PRN ×2 (19:35→22:50)
[2019-08-28] MEDS ORDERED: cloNIDine HCL 0.1 MG TAB PO ONE (22:49)
[2019-08-28] MEDS ORDERED: cloNIDine HCL 0.1 MG TAB PO PRN (22:49)
[2019-08-29] MEDS ORDERED: INSULIN ASPART 100 UNITS/ML 3 ML PEN SC SCH
[2019-08-29] MEDS: LORazepam 1 MG/2 ML VIAL IV PRN ×3 (00:24→23:28)
[2019-08-29] MEDS: NICOTINE 14 MG/24 HR PATCH TD SCH (08:46)
[2019-08-29] MEDS: lisinopriL 40 MG TAB PO SCH (08:47)
[2019-08-29] MEDS: VENLAFAXINE HCL XR 150 MG CAPXR PO SCH (08:47)
[2019-08-29] MEDS: METOPROLOL SUCC 50MG EXT REL TAB PO SCH (08:47)
[2019-08-29] MEDS: THIAMINE HCL 100 MG TAB PO SCH (08:47)
[2019-08-29] MEDS: ATORVASTATIN 40 MG TAB PO SCH (08:48)
[2019-08-29] MEDS: MULTIVITAMIN TAB PO SCH (08:48)
[2019-08-29] MEDS: ASPIRIN 81 MG ECTAB PO SCH (08:48)
[2019-08-29] MEDS: FOLIC ACID 1 MG TAB PO SCH (08:48)
[2019-08-29] MEDS: CLOPIDOGREL BISULFATE 75 MG TAB PO SCH (08:48)
[2019-08-29] MEDS: INSULIN ASPART 100 UNITS/ML 3 ML PEN SC SCH ×4 (08:50→20:55)
[2019-08-29] MEDS: ENOXAPARIN INJ 40 MG/0.4 ML SYR SQ SCH (09:38)
[2019-08-29] MEDS: GABAPENTIN 600 MG TAB PO SCH ×2 (09:39→20:55)
[2019-08-29] MEDS: LORazepam 2 MG/4 ML VIAL IV PRN (10:36)
[2019-08-29] MEDS ORDERED: INSULIN DETEMIR FLEXPEN/FLEX TOUCH 100 UNITS/ML 3ML SC SCH (12:00)
--- NOTE | 2019-08-29 12:24 | Pharmacy Report ---
Pharmacy Glycemic Short Note 2 - Date of Service August 29, 2019 - Glycemic Short BSG Results (Last 24 hours): 08/28/19 08/28/19 08/28/19 16:26 19:56 23:50 POC Glucose 99 219 H 174 H 08/29/19 08/29/19 07:45 11:37 POC Glucose 81 170 H OUTPATIENT ANTIDIABETIC REGIMEN: * Levemir 40 units HS, Novolog SSI * A1c = 9.1 % 08/2019 ASSESSMENT: * Dewayne is a 54 yo T2DM male admitted with alcohol withdrawal * He received 78 units of insulin yesterday (50 units of basal and 28 units of bolus) with majority of BSGs above target * Fasting BSG greatly improved (246 mg/dL -> 81 mg/dL). I will decrease basal in sulin by 20% due to rapid change and transition to once daily dosing of Levemir as this is how patient takes it at home. * Tighten Novolog carb coverage. PLAN FOR INPATIENT GLYCEMIC CONTROL: * Basal insulin - decrease * Lantus 40 units SQ once daily (start with lunch today) * Bolus insulin - tighten carb coverage * NovoLog per scale ACHS or Q6hrs while NPO * Goal Range: Low 110 mg/dL - High 140 mg/dL * Correction Factor: 20 mg/dL/unit * Nutritional / Prandial insulin per carb ratio of 1 unit per 8 grams CHO consumed PLAN FOR DISCHARGE: * A1c of 9.1% is above goal (patient admits to missing doses recently) * Patient was evaluated by CDE. It appears that Dewayne would benefit from pre-set meal doses of Novolog in addition to sliding scale. Recommend starting with Novolog 5 units TID with meals. * Continue Levemir 40 units qHS
--- NOTE | 2019-08-29 13:16 | Hospitalist Progress Note ---
Date of Service August 29, 2019 Assessment & Plan (1) Alcohol withdrawal syndrome without complication: Alcohol withdrawal H/O Alcohol withdrawal seizures Alcohol level:244 Tox Screen: negative seizure/fall precautions Alcohol withdrawal protocol with gabapentin, Ativan PRN Continue Thiamine, folic acid Clinically much better with minimal tremors but he still requires one-to-one sitter He is agreeable to go to inpatient rehab and social service has been working on that Denies any significant symptoms today Continue PT and OT evaluation Remains a stable and required 1 dose of intravenous Ativan last evening Has minimal hallucinations and tremors involving the outstretched hands One-to-one sitter can be lifted Hypertensive Urgency Secondary to above Continue lisinopril, Metoprolol Clonidine PRN -blood pressure remains elevated Hypomagnesemia Replete electrolytes as needed Magnesium level is 1.5-seems to be reasonable Chronic systolic heart failure H/O Ischemic cardiomyopathy EF 45-50 %, TTE 2018 Resume home diuretics as able CAD S/P Stent Continue Aspirin, Plavix, Statin, Metoprolol No acute issue Hyperlipidemia on statin DM II HbA1C:9.1 Continue Insulin therapy Monitor BGs Anxiety/mood disorder Refused Psychiatry eval Continue Venlafaxine, Trazodone No acute delirium Chronic anemia Hb at baseline Tobacco use Disorder Nicotine patch DVT Px: Lovenox SQ Code Status Full code Disposition Willing to go to inpatient rehab for alcohol abuse issue Medically stable to be discharged to inpatient alcohol rehab Admission and Anticipated Discharge Date Admission Date: August 27, 2019 Subjective The patient was seen and examined in medical floor He was admitted with alcohol withdrawal and requiring one-to-one sitter He remains generally weak with minimal tremor on outstretched hands Denies any other significant symptoms He is awaiting inpatient rehab 08/29/2019 The patient was seen and examined in the medical floor He remains weak and tired and complains to have tremors involving the outstretched hands and occasional hallucination No aggressive behavior and will take off one-to-one sitter Review of Systems Review of Systems: All systems reviewed and are unremarkable except as noted below Neurologic: + generalized weakness, + numbness (Minimal numbness involving the fingers) and + tremor(s) (Mild to moderate tremor on outstretched hands); no confusion Physical Exam Physical Exam: Lying in bed without any significant symptoms Constitutional: well developed, well nourished and + ill appearing; no acute distress Eyes: PERRL, conjunctivae normal, anicteric sclerae ENMT: external ear and nose normal, oropharynx normal Neck: trachea midline, no thyromegaly Respiratory: normal respiratory effort; no respiratory distress Auscultation: lungs clear to auscultation bilaterally Cardiovascular: Rate/Rhythm: regular rate and regular rhythm Heart Sounds: no murmur Gastrointestinal (Abdomen): Inspection/Auscultation: abdomen normal to inspection and normal bowel sounds Percussion/Palpation: abdomen soft; abdome n nontender Neurologic: moves all extremities; no focal motor deficits Speech / Cognition: normal speech Motor/Sensory: + tremor (Mild to moderate tremors involving the outstretched hands) Psychiatric: Orientation: alert, oriented x 3 and cooperative Eye Contact: good eye contact Mood: + depressed mood Suicidal Thoughts: denies suicidal thoughts Judgement: + not good judgement (Wants to go to inpatient rehab) Results & Data Results & Data ([facility]) Vital Signs (Past 12 Hours) Vital Signs Temp Pulse Pulse Resp BP BP Pulse Ox 08/29/19 11:03 36.7 C 78 18 115/74 93 08/29/19 08:00 37.0 C 62 16 124/72 92 08/29/19 07:05 65 08/29/19 04:06 36.4 C L 71 18 134/86 92 08/29/19 02:15 36.4 C L 71 20 127/84 96 08/29/19 01:47 70 Medications Administered Current Inpatient Medications Aspirin (Ecotrin Ectab) 81 mg PO DAILY [facility] Stop: 09/26/19 08:59 Last Admin: 08/29/19 08:48 Dose: 81 mg Documented by: Atorvastatin Calcium (Lipitor) 40 mg PO DAILY [facility] Stop: 09/26/19 08:59 Last Admin: 08/29/19 08:48 Dose: 40 mg Documented by: Clonidine HCl (Catapres) 0.1 mg PO Q4H PRN PRN Reason: Hypertension Stop: 09/26/19 12:54 Clopidogrel Bisulfate (Plavix) 75 mg PO DAILY [facility] Stop: 09/26/19 08:59 Last Admin: 08/29/19 08:48 Dose: 75 mg Documented by: Dextrose (Dextrose 50%) 25 - 50 ml IV UD PRN; Protocol PRN Reason: Hypoglycemia Protocol Stop: 09/26/19 06:37 Enoxaparin Sodium (Lovenox) 40 mg SQ QAM [facility] Stop: 09/26/19 08:59 Last Admin: 08/29/19 09:38 Dose: 40 mg Documented by: Folic Acid (Folvite) 1 mg PO QAM [facility] Stop: 09/26/19 08:59 Last Admin: 08/29/19 08:48 Dose: 1 mg Documented by: Gabapentin (Neurontin) 600 mg PO Q12H [facility] Stop: 08/29/19 22:01 Last Admin: 08/29/19 09:39 Dose: 600 mg Documented by: Gabapentin (Neurontin) 600 mg PO Q24H [facility] Stop: 08/30/19 22:01 Glucagon (Glucagen) 1 mg SQ UD PRN; Protocol PRN Reason: Hypoglycemia Protocol Stop: 09/26/19 06:37 Glucose (Dex4 Glucose) 4 - 8 tabs PO UD PRN; Protocol PRN Reason: Hypoglycemia Protocol Stop: 09/26/19 06:37 Glucose (Glucose 40%) 15 - 30 gm PO UD PRN; Protocol PRN Reason: Hypoglycemia Protocol Stop: 09/26/19 06:37 Lorazepam (Ativan) 2 mg in 4 mls @ 4 mls/min IV UD PRN; Protocol PRN Reason: EtOH Withdrawl AWSS Score 8,9 Stop: 09/26/19 06:37 Last Admin: 08/29/19 10:36 Dose: 4 mls/min Documented by: Lorazepam (Ativan) 3 mg in 6 mls @ 4 mls/min IV ONCE PRN; Protocol PRN Reason: EtOH Withdrawl AWSS Score >=10 Stop: 09/26/19 06:37 Last Admin: 08/29/19 02:34 Dose: 4 mls/min Documented by: Lorazepam (Ativan) 1 mg in 2 mls @ 2 mls/min IV UD PRN; Protocol PRN Reason: EtOH Withdrawl AWSS Score 6,7 Stop: 09/26/19 06:37 Last Admin: 08/29/19 00:24 Dose: 2 mls/min Documented by: Promethazine HCl 12.5 mg/ (Sodium Chloride) 50.5 mls @ 202 mls/hr IV Q6H PRN PRN Reason: Nausea And Vomiting Stop: 09/26/19 06:37 Last Infusion: 08/29/19 02:02 Dose: Infused Documented by: Insulin Aspart (Novolog Flexpen) 0 units SC ACHS [facility] Stop: 09/26/19 07:29 Last Admin: 08/29/19 12:10 Dose: 8 units Documented by: Insulin Detemir (Levemir Flextouch) 40 units SC QDD [facility] Stop: 09/28/19 11:59 Last Admin: 08/29/19 12:10 Dose: 40 units Documented by: Ipratropium [place] (Atrovent 0.02% 0.5mg/2.5ml) 0.5 mg INH Q4R PRN PRN Reason: Shortness Of Breath Stop: 09/26/19 06:37 Levalbuterol HCl (Xopenex 1.25mg/0.5ml Neb) 1.25 mg INH Q4R PRN PRN Reason: Shortness Of Breath Stop: 09/26/19 06:37 Lisinopril (Zestril) 40 mg PO DAILY [facility] Stop: 09/26/19 06:37 Last Admin: 08/29/19 08:47 Dose: 40 mg Documented by: Metoprolol Succinate (Toprol Xl) 50 mg PO DAILY [facility] Stop: 09/27/19 08:59 Last Admin: 08/29/19 08:47 Dose: 50 mg Documented by: Miscellaneous (Remove Nicoderm Patch) 1 ea N/A DAILY@0859 [facility] Stop: 09/27/19 08:58 Last Admin: 08/29/19 08:47 Dose: 1 ea Documented by: Miscellaneous (Carbohydrates For Hypoglycemia) 15 - 30 gm PO UD PRN PRN Reason: Hypoglycemia Protocol Stop: 09/26/19 06:37 Miscellaneous Information (Consult Glycemic Management Pharmacy) 1 ea N/A UD PRN PRN Reason: Consult Stop: 09/26/19 15:34 Multivitamins (Multivitamin Tab) 1 tab PO QAM [facility] Stop: 09/26/19 08:59 Last Admin: 08/29/19 08:48 Dose: 1 tab Documented by: Nicotine (Nicoderm Cq) 14 mg TD QAM [facility] Stop: 09/26/19 07:29 Last Admin: 08/29/19 08:46 Dose: 14 mg Documented by: Oxycodone HCl (Roxicodone Immediate Rel) 5 mg PO Q4H PRN PRN Reason: Pain Stop: 09/10/19 06:37 Thiamine HCl (Vitamin B-1) 100 mg PO QAM [facility] Stop: 09/26/19 08:59 Last Admin: 08/29/19 08:47 Dose: 100 mg Documented by: Trazodone HCl (Desyrel) 50 mg PO HS PRN PRN Reason: Insomnia Stop: 09/26/19 06:37 Last Admin: 08/29/19 01:34 Dose: 50 mg Documented by: Venlafaxine HCl (Effexor Extended Release) 150 mg PO DAILY [facility] Stop: 09/26/19 08:59 Last Admin: 08/29/19 08:47 Dose: 150 mg Documented by:
[2019-08-29] MEDS: OXYCODONE HCL IR 5 MG TAB (IMMEDIATE RELEASE) PO PRN (19:19)
[2019-08-30] MEDS: NICOTINE 14 MG/24 HR PATCH TD SCH (07:45)
[2019-08-30] MEDS: ATORVASTATIN 40 MG TAB PO SCH (07:46)
[2019-08-30] MEDS: CLOPIDOGREL BISULFATE 75 MG TAB PO SCH (07:46)
[2019-08-30] MEDS: VENLAFAXINE HCL XR 150 MG CAPXR PO SCH (07:46)
[2019-08-30] MEDS: THIAMINE HCL 100 MG TAB PO SCH (07:47)
[2019-08-30] MEDS: MULTIVITAMIN TAB PO SCH (07:47)
[2019-08-30] MEDS: METOPROLOL SUCC 50MG EXT REL TAB PO SCH (07:47)
[2019-08-30] MEDS: ASPIRIN 81 MG ECTAB PO SCH (07:47)
[2019-08-30] MEDS: FOLIC ACID 1 MG TAB PO SCH (07:47)
[2019-08-30] MEDS: lisinopriL 40 MG TAB PO SCH (07:47)
[2019-08-30] MEDS: ENOXAPARIN INJ 40 MG/0.4 ML SYR SQ SCH (07:48)
[2019-08-30] MEDS: INSULIN ASPART 100 UNITS/ML 3 ML PEN SC SCH ×4 (07:56→20:10)
[2019-08-30] MEDS: LORazepam 1 MG/2 ML VIAL IV PRN ×2 (09:20→23:47)
--- NOTE | 2019-08-30 11:27 | Pharmacy Report ---
Pharmacy Glycemic Short Note 2 - Date of Service August 30, 2019 - Glycemic Short BSG Results (Last 24 hours): 08/29/19 08/29/19 08/29/19 11:37 16:26 20:05 POC Glucose 170 H 135 H 199 H 08/30/19 07:12 POC Glucose 155 H OUTPATIENT ANTIDIABETIC REGIMEN: * Levemir 40 units HS, Novolog SSI * A1c = 9.1 % 08/2019 ASSESSMENT: * Dewayne is a 54 yo T2DM male admitted with alcohol withdrawal * He received 63 units of insulin yesterday (40 units of basal and 23 units of bolus) * Fasting BSG near goal. Will slightly increase Lantus dose. I suspect yesterdays dose decrease may have been too significant. * Post prandial BSGs improved but still remain above goal. Will further tighten Novolog carb coverage. PLAN FOR INPATIENT GLYCEMIC CONTROL: * Basal insulin - increase * Lantus 45 units SQ once daily (give with dinner today) * Transition to HS dosing * Bolus insulin - tighten carb coverage * NovoLog per scale ACHS or Q6hrs while NPO * Goal Range: Low 110 mg/dL - High 140 mg/dL * Correction Factor: 20 mg/dL/unit * Nutritional / Prandial insulin per carb ratio of 1 unit per 7 grams CHO consumed PLAN FOR DISCHARGE: * A1c of 9.1% is above goal (patient admits to missing doses recently) * Patient was evaluated by CDE. It appears that Dewayne would benefit from pre-set meal doses of Novolog in addition to sliding scale. Recommend starting with Novolog 5 units TID with meals. * Continue Levemir 40-45 units qHS
--- NOTE | 2019-08-30 11:42 | Hospitalist Progress Note ---
Date of Service August 30, 2019 Assessment & Plan (1) Alcohol withdrawal syndrome without complication: Alcohol withdrawal H/O Alcohol withdrawal seizures Alcohol level:244 Tox Screen: negative seizure/fall precautions Alcohol withdrawal protocol with gabapentin, Ativan PRN Continue Thiamine, folic acid Clinically much better with minimal tremors but he still requires one-to-one sitter He is agreeable to go to inpatient rehab and social service has been working on that Denies any significant symptoms today Continue PT and OT evaluation Remains a stable and required 1 dose of intravenous Ativan last evening Has minimal hallucinations and tremors involving the outstretched hands Medically stable to be discharged Hypertensive Urgency Secondary to above Continue lisinopril, Metoprolol Clonidine PRN -blood pressure remains elevated Will adjust medication Hypomagnesemia Replete electrolytes as needed Magnesium level is 1.5-seems to be reasonable Chronic systolic heart failure H/O Ischemic cardiomyopathy EF 45-50 %, TTE 2019 Resume home diuretics as able CAD S/P Stent Continue Aspirin, Plavix, Statin, Metoprolol No acute issue Hyperlipidemia on statin DM II HbA1C:9.1 Continue Insulin therapy Monitor BGs Anxiety/mood disorder Refused Psychiatry eval Continue Venlafaxine, Trazodone No acute delirium Chronic anemia Hb at baseline Tobacco use Disorder Nicotine patch DVT Px: Lovenox SQ Code Status Full code Disposition Willing to go to inpatient rehab for alcohol abuse issue Medically stable to be discharged to inpatient alcohol rehab Admission and Anticipated Discharge Date Admission Date: August 27, 2019 Subjective The patient was seen and examined in medical floor He was admitted with alcohol withdrawal and requiring one-to-one sitter He remains generally weak with minimal tremor on outstretched hands Denies any other significant symptoms He is awaiting inpatient rehab 08/29/2019 The patient was seen and examined in the medical floor He remains weak and tired and complains to have tremors involving the outstretched hands and occasional hallucination No aggressive behavior and will take off one-to-one sitter 08/30/2019 Patient was seen and examined in medical floor Remains lethargic with minimal tremor on outstretched hands Still complains to have occasional hallucination but not been unmanageable for aggressive 1-1 sitter has been taken off Review of Systems Review of Systems: All systems reviewed and are unremarkable except as noted below Neurologic: + confusion (Occasional confusion with hallucination) and + problem reported Physical Exam Physical Exam: Lying in bed without any significant symptoms Constitutional: well developed, well nourished and + ill appearing; no acute distress Eyes: PERRL, conjunctivae normal, anicteric sclerae ENMT: external ear and nose normal, oropharynx normal Neck: trachea midline, no thyromegaly Respiratory: normal respiratory effort; no respiratory distress Auscultation: lungs clear to auscultation bilaterally Cardiovascular: Rate/Rhythm: regular rate and regular rhythm Heart Sounds: no murmur Gastrointestinal (Abdomen): Inspection/Auscultation: abdomen normal to inspection and normal bowel sounds Percussion/Palpation: abdomen soft; abdomen nontender Neurologic: moves all extremities; no focal motor deficits Speech / Cognition: normal speech Motor/Sensory: + tremor (Mild to moderate tremors involving the outstretched hands) Psychiatric: Orientation: alert, oriented x 3 and cooperative Eye Contact: good eye contact Mood: + depressed mood Suicidal Thoughts: denies suicidal thoughts Judgement: + not good judgement (Wants to go to inpatient rehab) Results & Data Results & Data ([facility]) Vital Signs (Past 12 Hours) Vital Signs Temp Pulse Pulse Resp BP BP Pulse Ox 08/30/19 11:15 36.6 C 69 18 186/109 H 93 08/30/19 07:20 36.8 C 65 18 163/97 H 93 08/30/19 04:03 36.6 C 111 H 19 187/93 H 93 08/30/19 01:15 37.0 C 68 18 159/97 H 92 08/30/19 00:52 68 Medications Administered Current Inpatient Medications Aspirin (Ecotrin Ectab) 81 mg PO DAILY [facility] Stop: 09/26/19 08:59 Last Admin: 08/30/19 07:47 Dose: 81 mg Documented by: Atorvastatin Calcium (Lipitor) 40 mg PO DAILY [facility] Stop: 09/26/19 08:59 Last Admin: 08/30/19 07:46 Dose: 40 mg Documented by: Clonidine HCl (Catapres) 0.1 mg PO Q4H PRN PRN Reason: Hypertension Stop: 09/26/19 12:54 Last Admin: 08/29/19 19:24 Dose: 0.1 mg Documented by: Clopidogrel Bisulfate (Plavix) 75 mg PO DAILY [facility] Stop: 09/26/19 08:59 Last Admin: 08/30/19 07:46 Dose: 75 mg Documented by: Dextrose (Dextrose 50%) 25 - 50 ml IV UD PRN; Protocol PRN Reason: Hypoglycemia Protocol Stop: 09/26/19 06:37 Enoxaparin Sodium (Lovenox) 40 mg SQ QAM [facility] Stop: 09/26/19 08:59 Last Admin: 08/30/19 07:48 Dose: 40 mg Documented by: Folic Acid (Folvite) 1 mg PO QAM [facility] Stop: 09/26/19 08:59 Last Admin: 08/30/19 07:47 Dose: 1 mg Documented by: Gabapentin (Neurontin) 600 mg PO Q24H [facility] Stop: 08/30/19 22:01 Glucagon (Glucagen) 1 mg SQ UD PRN; Protocol PRN Reason: Hypoglycemia Protocol Stop: 09/26/19 06:37 Glucose (Dex4 Glucose) 4 - 8 tabs PO UD PRN; Protocol PRN Reason: Hypoglycemia Protocol Stop: 09/26/19 06:37 Glucose (Glucose 40%) 15 - 30 gm PO UD PRN; Protocol PRN Reason: Hypoglycemia Protocol Stop: 09/26/19 06:37 Lorazepam (Ativan) 2 mg in 4 mls @ 4 mls/min IV UD PRN; Protocol PRN Reason: EtOH Withdrawl AWSS Score 8,9 Stop: 09/26/19 06:37 Last Admin: 08/29/19 10:36 Dose: 4 mls/min Documented by: Lorazepam (Ativan) 3 mg in 6 mls @ 4 mls/min IV ONCE PRN; Protocol PRN Reason: EtOH Withdrawl AWSS Score >=10 Stop: 09/26/19 06:37 Last Admin: 08/29/19 02:34 Dose: 4 mls/min Documented by: Lorazepam (Ativan) 1 mg in 2 mls @ 2 mls/min IV UD PRN; Protocol PRN Reason: EtOH Withdrawl AWSS Score 6,7 Stop: 09/26/19 06:37 Last Admin: 08/30/19 09:20 Dose: 2 mls/min Documented by: Promethazine HCl 12.5 mg/ (Sodium Chloride) 50.5 mls @ 202 mls/hr IV Q6H PRN PRN Reason: Nausea And Vomiting Stop: 09/26/19 06:37 Last Infusion: 08/29/19 02:02 Dose: Infused Documented by: Insulin Aspart (Novolog Flexpen) 0 units SC ACHS [facility] Stop: 09/26/19 07:29 Last Admin: 08/30/19 07:56 Dose: 9 units Documented by: Insulin Detemir (Levemir Flextouch) 45 units SC QDD [facility] Stop: 09/29/19 16:29 Ipratropium [place] (Atrovent 0.02% 0.5mg/2.5ml) 0.5 mg INH Q4R PRN PRN Reason: Shortness Of Breath Stop: 09/26/19 06:37 Levalbuterol HCl (Xopenex 1.25mg/0.5ml Neb) 1.25 mg INH Q4R PRN PRN Reason: Shortness Of Breath Stop: 09/26/19 06:37 Lisinopril (Zestril) 40 mg PO DAILY [facility] Stop: 09/26/19 06:37 Last Admin: 08/30/19 07:47 Dose: 40 mg Documented by: Metoprolol Succinate (Toprol Xl) 50 mg PO DAILY [facility] Stop: 09/27/19 08:59 Last Admin: 08/30/19 07:47 Dose: 50 mg Documented by: Miscellaneous (Remove Nicoderm Patch) 1 ea N/A DAILY@0859 [facility] Stop: 09/27/19 08:58 Last Admin: 08/30/19 07:48 Dose: 1 ea Documented by: Miscellaneous (Carbohydrates For Hypoglycemia) 15 - 30 gm PO UD PRN PRN Reason: Hypoglycemia Protocol Stop: 09/26/19 06:37 Miscellaneous Information (Consult Glycemic Management Pharmacy) 1 ea N/A UD PRN PRN Reason: Consult Stop: 09/26/19 15:34 Multivitamins (Multivitamin Tab) 1 tab PO QAM [facility] Stop: 09/26/19 08:59 Last Admin: 08/30/19 07:47 Dose: 1 tab Documented by: Nicotine (Nicoderm Cq) 14 mg TD QAM [facility] Stop: 09/26/19 07:29 Last Admin: 08/30/19 07:45 Dose: 14 mg Documented by: Oxycodone HCl (Roxicodone Immediate Rel) 5 mg PO Q4H PRN PRN Reason: Pain Stop: 09/10/19 06:37 Last Admin: 08/29/19 19:19 Dose: 5 mg Documented by: Thiamine HCl (Vitamin B-1) 100 mg PO QAM [facility] Stop: 09/26/19 08:59 Last Admin: 08/30/19 07:47 Dose: 100 mg Documented by: Trazodone HCl (Desyrel) 50 mg PO HS PRN PRN Reason: Insomnia Stop: 09/26/19 06:37 Last Admin: 08/29/19 01:34 Dose: 50 mg Documented by: Venlafaxine HCl (Effexor Extended Release) 150 mg PO DAILY [facility] Stop: 09/26/19 08:59 Last Admin: 08/30/19 07:46 Dose: 150 mg Documented by:
[2019-08-30] MEDS: cloNIDine HCL 0.1 MG TAB PO SCH ×2 (12:26→20:09)
[2019-08-30] MEDS: OXYCODONE HCL IR 5 MG TAB (IMMEDIATE RELEASE) PO PRN ×2 (12:31→19:26)
[2019-08-30] MEDS ORDERED: INSULIN DETEMIR FLEXPEN/FLEX TOUCH 100 UNITS/ML 3ML SC SCH (16:30)
[2019-08-30] MEDS ORDERED: GABAPENTIN 600 MG TAB PO SCH (22:00)
[2019-08-31] MEDS: NICOTINE 14 MG/24 HR PATCH TD SCH (07:42)
[2019-08-31] MEDS: ENOXAPARIN INJ 40 MG/0.4 ML SYR SQ SCH (07:42)
[2019-08-31] MEDS: CLOPIDOGREL BISULFATE 75 MG TAB PO SCH (07:43)
[2019-08-31] MEDS: FOLIC ACID 1 MG TAB PO SCH (07:43)
[2019-08-31] MEDS: METOPROLOL SUCC 50MG EXT REL TAB PO SCH (07:43)
[2019-08-31] MEDS: ATORVASTATIN 40 MG TAB PO SCH (07:44)
[2019-08-31] MEDS: VENLAFAXINE HCL XR 150 MG CAPXR PO SCH (07:44)
[2019-08-31] MEDS: ASPIRIN 81 MG ECTAB PO SCH (07:44)
[2019-08-31] MEDS: lisinopriL 40 MG TAB PO SCH (07:44)
[2019-08-31] MEDS: THIAMINE HCL 100 MG TAB PO SCH (07:44)
[2019-08-31] MEDS: cloNIDine HCL 0.1 MG TAB PO SCH (07:45)
[2019-08-31] MEDS: OXYCODONE HCL IR 5 MG TAB (IMMEDIATE RELEASE) PO PRN (08:01)
[2019-08-31] MEDS: INSULIN ASPART 100 UNITS/ML 3 ML PEN SC SCH ×2 (08:37→12:33)
[2019-08-31] MEDS: MULTIVITAMIN TAB PO SCH (08:38)
--- NOTE | 2019-08-31 11:55 | Hospitalist Progress Note ---
Date of Service August 31, 2019 Assessment & Plan (1) Alcohol withdrawal syndrome without complication: Alcohol withdrawal H/O Alcohol withdrawal seizures Alcohol level:244 Tox Screen: negative seizure/fall precautions Alcohol withdrawal protocol with gabapentin, Ativan PRN Continue Thiamine, folic acid Clinically much better with minimal tremors but he still requires one-to-one sitter He is agreeable to go to inpatient rehab and social service has been working on that Denies any significant symptoms today Continue PT and OT evaluation Remains a stable and required 1 dose of intravenous Ativan last evening Has minimal hallucinations and tremors involving the outstretched hands Medically stable to be discharged He will be going to go to inpatient rehab facility as planned Discharge this afternoon Hypertensive Urgency Secondary to above Continue lisinopril, Metoprolol Clonidine PRN -blood pressure remains elevated Will adjust medication Blood pressure is well controlled Hypomagnesemia Replete electrolytes as needed Magnesium level is 1.5-seems to be reasonable Chronic systolic heart failure H/O Ischemic cardiomyopathy EF 45-50 %, TTE 2018 Resume home diuretics as able CAD S/P Stent Continue Aspirin, Plavix, Statin, Metoprolol No acute issue Hyperlipidemia on statin DM II HbA1C:9.1 Continue Insulin therapy Monitor BGs Anxiety/mood disorder Refused Psychiatry eval Continue Venlafaxine, Trazodone No acute delirium Chronic anemia Hb at baseline Tobacco use Disorder Nicotine patch Chronic back pain Uses occasional oxycodone DVT Px: Lovenox SQ Code Status Full code Disposition Willing to go to inpatient rehab for alcohol abuse issue Medically stable to be discharged to inpatient alcohol rehab He has to go to inpatient alcohol rehab Admission and Anticipated Discharge Date Admission Date: August 27, 2019 Subjective The patient was seen and examined in medical floor He was admitted with alcohol withdrawal and requiring one-to-one sitter He remains generally weak with minimal tremor on outstretched hands Denies any other significant symptoms He is awaiting inpatient rehab 08/29/2019 The patient was seen and examined in the medical floor He remains weak and tired and complains to have tremors involving the outstretched hands and occasional hallucination No aggressive behavior and will take off one-to-one sitter 08/30/2019 Patient was seen and examined in medical floor Remains lethargic with minimal tremor on outstretched hands Still complains to have occasional hallucination but not been unmanageable for aggressive 1-1 sitter has been taken off 08/31/2019 The patient was seen and examined in medical floor He has been feeling a lot better today Complains today of ongoing back pain Denies any hallucination and tremor is almost gone Review of Systems Review of Systems: All systems reviewed and are unremarkable except as noted below Neurologic: no confusion (Occasional confusion with hallucination) and no problem reported Physical Exam Physical Exam: Lying in bed without any significant symptoms Constitutional: well developed, well nourished and + ill appearing; no acute distress Eyes: PERRL, conjunctivae normal, anicteric sclerae ENMT: external ear and nose normal, oropharynx normal Neck: trachea midline, no thyromegaly Respiratory: normal respiratory effort; no respiratory distress Auscultation: lungs clear to auscultation bilaterally Cardiovascular: Rate/Rhythm: regular rate and regular rhythm Heart Sounds: no murmur Gastrointestinal (Abdomen): Inspection/Auscultation: abdomen normal to inspection and normal bowel sounds Percussion/Palpation: abdomen soft; abdomen nontender Musculoskeletal: No acute arthritis involving any joints Neurologic: moves all extremities; no focal motor deficits Speech / Cognition: normal speech Motor/Sensory: + tremor (Minimal tremor involving the outstretched hands) Psychiatric: Orientation: alert, oriented x 3 and cooperative Eye Contact: good eye contact Mood: + depressed mood Suicidal Thoughts: denies suicidal thoughts Judgement: good judgement (Reasonable judgment) Results & Data Results & Data ([facility]) Vital Signs (Past 12 Hours) Vital Signs Temp Pulse Pulse Resp BP Pulse Ox 08/31/19 11:25 36.5 C 67 18 145/93 H 95 08/31/19 08:15 36.6 C 64 17 168/97 H 96 08/31/19 03:42 36.6 C 64 18 124/74 94 08/30/19 23:58 65 Medications Administered Current Inpatient Medications Aspirin (Ecotrin Ectab) 81 mg PO DAILY [facility] Stop: 09/26/19 08:59 Last Admin: 08/31/19 07:44 Dose: 81 mg Documented by: Atorvastatin Calcium (Lipitor) 40 mg PO DAILY [facility] Stop: 09/26/19 08:59 Last Admin: 08/31/19 07:44 Dose: 40 mg Documented by: Clonidine HCl (Catapres) 0.1 mg PO Q4H PRN PRN Reason: Hypertension Stop: 09/26/19 12:54 Last Admin: 08/29/19 19:24 Dose: 0.1 mg Documented by: Clonidine HCl (Catapres) 0.1 mg PO BID [facility] Stop: 09/29/19 11:44 Last Admin: 08/31/19 07:45 Dose: 0.1 mg Documented by: Clopidogrel Bisulfate (Plavix) 75 mg PO DAILY [facility] Stop: 09/26/19 08:59 Last Admin: 08/31/19 07:43 Dose: 75 mg Documented by: Dextrose (Dextrose 50%) 25 - 50 ml IV UD PRN; Protocol PRN Reason: Hypoglycemia Protocol Stop: 09/26/19 06:37 Enoxaparin Sodium (Lovenox) 40 mg SQ QAM [facility] Stop: 09/26/19 08:59 Last Admin: 08/31/19 07:42 Dose: 40 mg Documented by: Folic Acid (Folvite) 1 mg PO QAM [facility] Stop: 09/26/19 08:59 Last Admin: 08/31/19 07:43 Dose: 1 mg Documented by: Glucagon (Glucagen) 1 mg SQ UD PRN; Protocol PRN Reason: Hypoglycemia Protocol Stop: 09/26/19 06:37 Glucose (Dex4 Glucose) 4 - 8 tabs PO UD PRN; Protocol PRN Reason: Hypoglycemia Protocol Stop: 09/26/19 06:37 Glucose (Glucose 40%) 15 - 30 gm PO UD PRN; Protocol PRN Reason: Hypoglycemia Protocol Stop: 09/26/19 06:37 Lorazepam (Ativan) 2 mg in 4 mls @ 4 mls/min IV UD PRN; Protocol PRN Reason: EtOH Withdrawl AWSS Score 8,9 Stop: 09/26/19 06:37 Last Admin: 08/29/19 10:36 Dose: 4 mls/min Documented by: Lorazepam (Ativan) 3 mg in 6 mls @ 4 mls/min IV ONCE PRN; Protocol PRN Reason: EtOH Withdrawl AWSS Score >=10 Stop: 09/26/19 06:37 Last Admin: 08/29/19 02:34 Dose: 4 mls/min Documented by: Lorazepam (Ativan) 1 mg in 2 mls @ 2 mls/min IV UD PRN; Protocol PRN Reason: EtOH Withdrawl AWSS Score 6,7 Stop: 09/26/19 06:37 Last Admin: 08/30/19 23:47 Dose: 2 mls/min Documented by: Promethazine HCl 12.5 mg/ (Sodium Chloride) 50.5 mls @ 202 mls/hr IV Q6H PRN PRN Reason: Nausea And Vomiting Stop: 09/26/19 06:37 Last Infusion: 08/29/19 02:02 Dose: Infused Documented by: Insulin Aspart (Novolog Flexpen) 0 units SC ACHS [facility] Stop: 09/26/19 07:29 Last Admin: 08/31/19 08:37 Dose: 8 units Documented by: Insulin Detemir (Levemir Flextouch) 45 units SC QDD [facility] Stop: 09/29/19 16:29 Last Admin: 08/30/19 17:01 Dose: 45 units Documented by: Ipratropium [place] (Atrovent 0.02% 0.5mg/2.5ml) 0.5 mg INH Q4R PRN PRN Reason: Shortness Of Breath Stop: 09/26/19 06:37 Levalbuterol HCl (Xopenex 1.25mg/0.5ml Neb) 1.25 mg INH Q4R PRN PRN Reason: Shortness Of Breath Stop: 09/26/19 06:37 Lisinopril (Zestril) 40 mg PO DAILY [facility] Stop: 09/26/19 06:37 Last Admin: 08/31/19 07:44 Dose: 40 mg Documented by: Metoprolol Succinate (Toprol Xl) 50 mg PO DAILY [facility] Stop: 09/27/19 08:59 Last Admin: 08/31/19 07:43 Dose: 50 mg Documented by: Miscellaneous (Remove Nicoderm Patch) 1 ea N/A DAILY@0859 [facility] Stop: 09/27/19 08:58 Last Admin: 08/31/19 07:45 Dose: Not Given Documented by: Miscellaneous (Carbohydrates For Hypoglycemia) 15 - 30 gm PO UD PRN PRN Reason: Hypoglycemia Protocol Stop: 09/26/19 06:37 Miscellaneous Information (Consult Glycemic Management Pharmacy) 1 ea N/A UD PRN PRN Reason: Consult Stop: 09/26/19 15:34 Multivitamins (Multivitamin Tab) 1 tab PO QAM [facility] Stop: 09/26/19 08:59 Last Admin: 08/31/19 08:38 Dose: 1 tab Documented by: Nicotine (Nicoderm Cq) 14 mg TD QAM [facility] Stop: 09/26/19 07:29 Last Admin: 08/31/19 07:42 Dose: 14 mg Documented by: Oxycodone HCl (Roxicodone Immediate Rel) 5 mg PO Q4H PRN PRN Reason: Pain Stop: 09/10/19 06:37 Last Admin: 08/31/19 08:01 Dose: 5 mg Documented by: Thiamine HCl (Vitamin B-1) [facility] Stop: 09/26/19 08:59 Last Admin: 08/31/19 07:44 Dose: 100 mg Documented by: Trazodone HCl (Desyrel) 50 mg PO HS PRN PRN Reason: Insomnia Stop: 09/26/19 06:37 Last Admin: 08/29/19 01:34 Dose: 50 mg Documented by: Venlafaxine HCl (Effexor Extended Release) 150 mg PO DAILY [facility] Stop: 09/26/19 08:59 Last Admin: 08/31/19 07:44 Dose: 150 mg Documented by:
--- NOTE | 2019-09-01 07:43 | Discharge Summary ---
Date of Service September 01, 2019 Admission HPI Per Admitting Provider History obtained from patient and records. Medical history significant for chronic systolic heart failure secondary to ischemic cardiomyopathy (EF 45-50 %, TTE 2019), CAD status post stent, hypertension, hyperlipidemia, DM 2 insulin requiring, anxiety/mood disorder, chronic anemia (baseline hemoglobin 12-13), ongoing tobacco/alcohol abuse history alcohol withdrawal seizures. Last confinement December 2018 for non-ST elevation NH. [facility] patient underwent stent placement for proximal OM occlusion. Patient went back to drinking months ago citing depression and unhappy family situation as stressors. Alcohol withdrawal seizure at home when he tried to quit about 2 months ago. Patient consulted ER yesterday requesting for detox. Denies chest pain, S OB, headache symptoms. Denies suicidality. Medical History as above Surgical History : None Family History : Heart disease, diabetes Personal/Social history : 1/2 to 3/4 pack daily, alcohol abuse, currently unemployed Admission Exam Per Admitting Provider Physical Exam: GENERAL: Comfortable, obese, pleasant, tremulous, no respiratory distress SKIN: Normal color, warm HEENT: [place] palpebral conjunctivae, no ptosis, dry buccal mucosa NECK : Supple, short neck, no tenderness CHEST : Decreased breath sounds, expiratory wheezes that clear on coughing , no tenderness HEART : RRR, systolic murmur ABDOMEN: Some distention, nontender EXTREMITIES : No LE swelling/tenderness, no other conspicuous deformities noted NEUROLOGIC : Coherent, no facial asymmetry, tremulous Principal Diagnosis Alcohol withdrawal symptoms, alcoholism, hypertensive urgency, chronic controlled systolic heart failure, type 2 diabetes, chronic back pain Discharge Exam Constitutional well developed, well nourished and + ill appearing; no acute distress Eyes PERRL, conjunctivae normal, anicteric sclerae ENMT external ear and nose normal, oropharynx normal Neck trachea midline, no thyromegaly Respiratory normal respiratory effort; no respiratory distress Auscultation: lungs clear to auscultation bilaterally Cardiovascular Rate/Rhythm: regular rate and regular rhythm Heart Sounds: no murmur Gastrointestinal (Abdomen) Inspection/Auscultation: abdomen normal to inspection and normal bowel sounds Percussion/Palpation: abdomen soft; abdomen nontender Neurologic moves all extremities; no focal motor deficits Speech / Cognition: normal speech Motor/Sensory: + tremor (Minimal tremor involving the outstretched hands) Psychiatric Orientation: alert, oriented x 3 and cooperative Eye Contact: good eye contact Mood: + depressed mood Suicidal Thoughts: denies suicidal thoughts Judgement: good judgement (Reasonable judgment) Discharge Data Allergies Allergy/AdvReac Type Severity Reaction Status Date / Time No Known Allergies Allergy Unverified 01/01/19 12:42 Consultations 08/27/19 04:15 ED Decision to Admit Stat 08/27/19 06:38 Consult Case Management - Discharge Planning Routine Hospital Course (1) Alcohol withdrawal syndrome without complication: Alcohol withdrawal H/O Alcohol withdrawal seizures Alcohol level:244 Tox Screen: negative seizure/fall precautions Alcohol withdrawal protocol with gabapentin, Ativan PRN Continue Thiamine, folic acid Clinically much better with minimal tremors but he still requires one-to-one sitter He is agreeable to go to inpatient rehab and social service has been working on that Denies any significant symptoms today Continue PT and OT evaluation Remains a stable and required 1 dose of intravenous Ativan last evening Has minimal hallucinations and tremors involving the outstretched hands Medically stable to be discharged He will be going to go to inpatient rehab facility as planned Discharge this afternoon Hypertensive Urgency Secondary to above Continue lisinopril, Metoprolol Clonidine PRN -blood pressure remains elevated Will adjust medication Blood pressure is well controlled Hypomagnesemia Replete electrolytes as needed Magnesium level is 1.5-seems to be reasonable Chronic systolic heart failure H/O Ischemic cardiomyopathy EF 45-50 %, TTE 2018 Resume home diuretics as able CAD S/P Stent Continue Aspirin, Plavix, Statin, Metoprolol No acute issue Hyperlipidemia on statin DM II HbA1C:9.1 Continue Insulin therapy Monitor BGs Anxiety/mood disorder Refused Psychiatry eval Continue Venlafaxine, Trazodone No acute delirium Chronic anemia Hb at baseline Tobacco use Disorder Nicotine patch Chronic back pain Uses occasional oxycodone DVT Px: Lovenox SQ Code Status Full code Disposition Willing to go to inpatient rehab for alcohol abuse issue Medically stable to be discharged to inpatient alcohol rehab He has to go to inpatient alcohol rehab Total Time Total Time Spent Total Time Spent (In Minutes): 35 minutes Total Time Includes: Examination of the Patient, Discharge Planning, Medication Reconciliation and Communication With Other Providers Discharge Plan Discharge Items Patient Disposition: Home - Self-Care Reason For Visit: ETOH WITHDRAWAL Discharge Diagnosis: Alcohol withdrawal symptoms, alcoholism, hypertensive urgency, chronic controlled systolic heart failure, type 2 diabetes, chronic back pain Condition on Discharge: Good Activity: Resume your previous activity Non-emergency contact: Primary Care Provider Call non-emergency contact if: you have any medication questions and your symptoms worsen Follow-up/Referrals: PCP,NO [Primary Care Provider] - (Please try to find a PCP following discharge from rehab facility) Diet: Carb Consistent or DM2 and Heart Healthy Addtl Attending Provider Instructions: Take extreme precaution to avoid falls Strongly advised to not to drink anymore alcohol Please use your narcotic pain medications cautiously and as little as possible Pending Studies at Discharge: No Stand-Alone Forms: [email or web address], Suicide Prevention Resources Medications and DC Order Prescriptions: New multivitamin [Daily-Ladonna] Tablet 1 tab PO QAM 30 Days Qty: 30 RF: 0 clonidine HCl 0.1 mg Tablet 0.1 mg PO BID 30 Days Qty: 60 RF: 0 thiamine HCl (vitamin B1) [Vitamin B-1] 100 mg Tablet 100 mg PO QAM 30 Days Qty: 30 RF: 0 folic acid 1 mg Tablet 1 mg PO QAM 30 Days Qty: 30 RF: 0 nicotine 7 mg/24 hr Patch 24 Hour 14 mg transdermal QAM 30 Days Qty: 30 RF: 0 oxycodone 5 mg Tablet 5 mg PO Q4H PRN (Reason: pain) 3 Days Qty: 10 RF: 0 Continued Levemir FlexTouch U-100 Insuln 100 unit/mL (3 mL) Insulin Pen 40 unit SUBCUT HS RF: 0 insulin aspart U-100 [Novolog Flexpen U-100 Insulin] 100 unit/mL Insulin Pen 1 units subcut UD RF: 0 trazodone 50 mg Tablet 50 mg PO HS PRN (Reason: Insomnia) RF: 0 atorvastatin [Lipitor] 40 mg tablet 40 mg PO DAILY RF: 0 chlorthalidone 25 mg tablet 25 mg PO DAILY RF: 0 clopidogrel [Plavix] 75 mg tablet 75 mg PO DAILY RF: 0 lisinopril [Zestril] 40 mg tablet 40 mg PO DAILY RF: 0 metoprolol succinate [Toprol XL] 50 mg tablet extended release 24 hr 50 mg PO DAILY RF: 0 spironolactone [Aldactone] 25 mg tablet 25 mg PO DAILY RF: 0 venlafaxine [Effexor XR] 150 mg capsule,extended release 24hr 150 mg PO DAILY RF: 0 aspirin [Ecotrin Low Strength] 81 mg tablet,delayed release (/EC) 81 mg PO DAILY RF: 0 Discharge Orders: Discharge Order (Routine); Ordered 08/31/19 Ordered By: Horace Yuen Admission Data Admit Date/Time: 08/27/19 05:15 Attending Provider: Horace Yuen Admit Provider: Mirza Moreno Primary Care Provider: PCP,NO Other Providers: Mirza Moreno ; Tico Bullock Other Interventions: Discharge Summary Assessment (RN) Last Done: 08/31/19 14:34 DC Date/Time DO NOT enter until pt leaves facility: 08/31/19 15:52
== END 2019-08-31 15:52 | disposition home or self-care (01) | DRG 897 ==
LOC: ED 20:37 → SUATTDRO 08-27 05:15 → 2W 08-27 05:15

== ENCOUNTER 2020-01-16 15:18 | Inpatient (IN) ==
--- NOTE | 2020-01-16 16:18 | Emergency Department Note ---
Impression & Plan Leukopenia, Anemia, Elevated troponin, CHF (congestive heart failure) ED Provider Note NAME: CARLOS NGO AGE: 54 SEX: M : 1965 ARRIVES VIA: Walk-In INFORMANT: Patient ED PROVIDER(S): Marciano Figueredo DO CHIEF COMPLAINT: Shortness of breath HPI: Patient is a 54-year-old male with a past medical history of alcohol abuse who presents to the ER for swelling of the legs and shortness of breath which has been worsening for the past 3.5 weeks. He notes the swelling has been gradually getting worse. He drinks about 1/5 of vodka per day. He denies any headache or chest pain. No nausea vomiting or diarrhea. No dysuria urgency or frequency. He does admit to smoking. Previous DC. ROS: See above HPI for pertinent positives & negatives. A total of 10 systems reviewed and were otherwise negative. PAST MEDICAL HISTORY:See Below PAST SURGICAL HISTORY:See Below FAMILY HISTORY:See Below SOCIAL HISTORY:See Below HOME MEDICATIONS:See Below ALLERGIES:See Below VITALS:See Below PHYSICAL EXAMINATION: GENERAL: Sitting up in bed, alert, well appearing, well nourished, no distress, non-toxic EYE EXAM: normal conjunctiva. OROPHARYNX: no exudate, no erythema, lips, buccal mucosa, and tongue normal and mucous membranes are moist NECK: supple, no nuchal rigidity, no adenopathy, non-tender LUNGS: Wheezing throughout. Normal chest wall mechanics HEART: no murmurs, S1 normal and S2 normal ABDOMEN: abdomen soft, non-tender, normo-active bowel sounds, no masses, no rebound or guarding. BACK: Back is symmetrical on inspection and there is no deformity, no midline tenderness, no CVA tenderness. SKIN: no rashes and no bruising UPPER EXTREMITIES: upper extremities are grossly normal. LOWER EXTREMITIES: Calves are equal bilateral with significant pitting edema tracking up to the thighs NEURO EXAM: Normal sensorium, cranial nerves II-XII grossly intact, normal speech, no gross weakness of arms, no gross weakness of legs. MEDICAL DECISION MAKING: Patient is a 54-year-old male who presents the ER for shortness of breath. This has been getting worse for 3 and half weeks. IV was established blood work was obtained. Labs show mild leukopenia. INR was unremarkable. D-dimer was elevated. CT Junie of the chest shows no PEs. BMP was remarkable for an elevated glucose. Troponin was checked was 0.060. Lipase was normal. He was hypoxic at 86% on room air. He was placed on 2 L nasal cannula throughout his stay in the ER. Patient was updated bedside. Discussed the hospitalist admitted for further work-up. Triage Nursing notes reviewed. Prior medical records reviewed Vital Signs: reviewed and remarkable for HTN Differential diagnosis: Differential diagnoses includes but is not limited to pneumonia, bronchitis, COPD/Asthma exacerbation, pneumothorax, pulmonary embolism, congestive heart failure, acute coronary syndrome ER treatment provided: See below Diagnostics interpreted by me: ECG: Sinus rhythm rate 75 Normal axis No PVCs Normal QTC Cardiac Monitoring: An order was placed for continuous cardiac monitoring. The monitor shows a rate of 70 with sinus rhythm. Laboratory studies: As stated above and show below. Imaging studies: CT Angio of the chest shows no PEs Consultation(s): Discussed with Dr. Yuen from [facility] for further evaluation ED COURSE: Procedures: none Critical Care: I have personally spent 40 minutes of critical care time in the direct management of this patient. This includes bedside care, interpretation of diagnostic studies, and testing, discussion with consultants, patient, and family members, and other required patient management activities. This 40 minutes is in excess of all separately billable procedures. Past Med/Surg History Medical History (Updated 01/16/20 @ 21:04 by Marciano Figueredo DO) Alcohol use disorder HTN (hypertension) Mood disorder Neuropathy NSTEMI (non-ST elevated myocardial infarction) Obesity CATALINO (obstructive sleep apnea) Tobacco use disorder Type 2 diabetes mellitus Surgical History History of cardiac catheterization 1 ELIESER to proximal OM by Dr. Guerrero on 01/01/19 History of lymph node biopsy Family History Other Heart disease Social History Smoking Status: Current every day smoker Tobacco Type: Cigarettes Years Smoked: 39; Cigarettes Per Day: 1.5 packs; Second Hand Exposure: Yes; Hx Alcohol Use: Yes Alcohol type: hard liquor Alcohol type Comment: Endorsing 3-5 beers intermittently over past few weeks. H/o heavy use Hx Substance Use: Yes Last Used Substance: Unknown Preferred Language: Romansh Communication Ability: Effective Patient Registration Rep Required: No Beliefs That Will Affect Care: None marital status: Current Living Situation: Family current occupational status: unemployed Feels Safe at Home: Yes Assistive Devices: None Allergies Allergies Allergy/AdvReac Type Severity Reaction Status Date / Time No Known Allergies Allergy Verified 01/16/20 17:37 Home Meds Home Medications Medication Instructions Recorded Confirmed Levemir FlexTouch U-100 Insuln 40 unit SUBCUT HS 12/14/17 01/16/20 insulin aspart U-100 [Novolog See Rx Instructions .ROUTE .COMPLEX 12/16/17 01/16/20 Flexpen U-100 Insulin] trazodone 50 mg PO HS PRN 01/01/19 01/16/20 aspirin [Ecotrin Low Strength] 81 mg PO QAM 08/26/19 01/16/20 atorvastatin [Lipitor] 40 mg PO QAM 08/26/19 01/16/20 clopidogrel [Plavix] 75 mg PO QAM 08/26/19 01/16/20 lisinopril [Zestril] 40 mg PO QAM 08/26/19 01/16/20 metoprolol succinate [Toprol XL] 50 mg PO QAM 08/26/19 01/16/20 venlafaxine [Effexor XR] 150 mg PO QAM 08/26/19 01/16/20 buprenorphine-naloxone 1 tab SUBLINGUAL BID 01/16/20 01/16/20 folic acid 1 mg PO QAM 01/16/20 01/16/20 furosemide 20 mg PO QAM 01/16/20 01/16/20 gabapentin 600 mg PO QID 01/16/20 01/16/20 Results & Data (ED) Vital Signs Vital Signs - 24 hr 01/16/20 15:19 01/16/20 16:52 01/16/20 18:13 Temperature 36.8 C Temperature Source Oral Pulse Rate 88 70 Pulse Rate from SpO2 Sensor 70 Respiratory Rate 18 16 Respiratory Effort / Characteristics Non-Labored Respiratory Depth Normal Respiratory Pattern Regular Blood Pressure 142/84 H 129/72 Blood Pressure Mean 103 82 Blood Pressure Position Sitting Pulse Oximetry 92 95 80 L Oxygen Delivery Method Room Air Room Air Oxygen Flow Rate Sepsis Recent Fever Within 48 Hours No Sepsis New/Unexplained Change in Mental Status No Sepsis Action Taken by Nursing No Action Required Oxygen Flow Rate - Titration 2 Pulse Oximetry Post Tiitration 94 01/16/20 18:40 01/16/20 18:50 01/16/20 19:00 Temperature Temperature Source Pulse Rate 71 72 72 Pulse Rate from SpO2 Sensor 70 72 71 Respiratory Rate 28 H 21 Respiratory Effort / Characteristics Respiratory Depth Respiratory Pattern Blood Pressure 152/94 H Blood Pressure Mean 112 Blood Pressure Position Pulse Oximetry 95 94 94 Oxygen Delivery Method Nasal Cannula Oxygen Flow Rate 3 3 3 Sepsis Recent Fever Within 48 Hours Sepsis New/Unexplained Change in Mental Status Sepsis Action Taken by Nursing Oxygen Flow Rate - Titration Pulse Oximetry Post Tiitration 01/16/20 19:10 01/16/20 19:20 01/16/20 19:21 Temperature Temperature Source Pulse Rate 72 75 75 Pulse Rate from SpO2 Sensor 71 75 74 Respiratory Rate 23 14 14 Respiratory Effort / Characteristics Respiratory Depth Respiratory Pattern Blood Pressure 113/64 Blood Pressure Mean 77 Blood Pressure Position Pulse Oximetry 94 96 95 Oxygen Delivery Method Oxygen Flow Rate 3 3 3 Sepsis Recent Fever Within 48 Hours Sepsis New/Unexplained Change in Mental Status Sepsis Action Taken by Nursing Oxygen Flow Rate - Titration Pulse Oximetry Post Tiitration 01/16/20 19:30 01/16/20 19:31 01/16/20 19:40 Temperature Temperature Source Pulse Rate 72 Pulse Rate from SpO2 Sensor 72 73 72 Respiratory Rate 13 14 12 Respiratory Effort / Characteristics Respiratory Depth Respiratory Pattern Blood Pressure 108/67 Blood Pressure Mean 80 Blood Pressure Position Pulse Oximetry 94 95 94 Oxygen Delivery Method Oxygen Flow Rate 3 3 3 Sepsis Recent Fever Within 48 Hours Sepsis New/Unexplained Change in Mental Status Sepsis Action Taken by Nursing Oxygen Flow Rate - Titration Pulse Oximetry Post Tiitration Laboratory Data Result diagrams: 01/16/20 16:45 01/16/20 16:45 Lab Results 01/16/20 01/16/20 01/16/20 Range/Units 16:45 16:45 16:45 WBC 4.66 L (4.8-10.8) K/uL RBC 3.75 L (4.7-6.1) M/uL Hgb 12.1 L (14.0-18.0) g/dL Hct 36.1 L (42-52) % MCV 96.3 (80-100) fL MCH 32.3 (25-34) pg MCHC 33.5 (32-36) g/dL RDW Std Deviation 46.1 (36.4-46.3) fL RDW Coeff of Alberto 13.1 (11.5-14.5) % Plt Count 156 (130-400) K/uL MPV 9.4 (7.4-10.4) fL Immature Gran % (Auto) 0.2 % Neut % (Auto) 52.4 % Lymph % (Auto) 35.6 % Elliott % (Auto) 8.4 % Eos % (Auto) 3.2 % Baso % (Auto) 0.2 % Neut # (Auto) 2.44 (1.4-6.5) K/uL Lymph # (Auto) 1.66 (1.2-3.4) K/uL Elliott # (Auto) 0.39 (0.11-0.59) K/uL Eos # (Auto) 0.15 (0-0.5) K/uL Baso # (Auto) 0.01 (0-0.2) K/uL Immature Gran # (Auto) 0.01 (0.00-0.02) K/uL PT 11.4 (9.0-12.0) Seconds INR 1.1 (0.9-1.1) APTT 36.9 H (21.0-31.0) Seconds PTT Ratio 1.3 D-Dimer 1230 H* (0-500) ug/L FEU Sodium 136 (136-145) mmol/L Potassium 4.1 (3.5-5.1) mmol/L Chloride 103 (98-107) mmol/L Carbon Dioxide 25 (21-32) mmol/L Anion Gap 8.0 (3-11) BUN 18 (7-18) mg/dl Creatinine 0.94 (0.6-1.4) mg/dl Est Cr Clr Drug Dosing 116.8 ml/min Est GFR ( Amer) 105.4 Est GFR (Non-Af Amer) 90.9 BUN/Creatinine Ratio 19.2 (10-20) Glucose 159 H (70-99) mg/dl Calcium 8.4 L (8.5-10.1) mg/dl Total Bilirubin 0.7 (0.2-1) mg/dl AST 85 H (15-37) U/L ALT 59 (12-78) U/L Alkaline Phosphatase 105 (45-117) U/L Troponin I 0.062 H* (0-0.045) ng/ml Total Protein 7.1 (6.4-8.2) gm/dl Albumin 2.8 L (3.4-5.0) gm/dl Globulin 4.3 H (2.5-4.0) gm/dl Albumin/Globulin Ratio 0.6 L (0.9-2) Lipase 87 (73-393) U/L 10//20 Range/Units 19:20 WBC (4.8-10.8) K/uL RBC (4.7-6.1) M/uL Hgb (14.0-18.0) g/dL Hct (42-52) % MCV (80-100) fL MCH (25-34) pg MCHC (32-36) g/dL RDW Std Deviation (36.4-46.3) fL RDW Coeff of Alberto (11.5-14.5) % Plt Count (130-400) K/uL MPV (7.4-10.4) fL Immature Gran % (Auto) % Neut % (Auto) % Lymph % (Auto) % Elliott % (Auto) % Eos % (Auto) % Baso % (Auto) % Neut # (Auto) (1.4-6.5) K/uL Lymph # (Auto) (1.2-3.4) K/uL Elliott # (Auto) (0.11-0.59) K/uL Eos # (Auto) (0-0.5) K/uL Baso # (Auto) (0-0.2) K/uL Immature Gran # (Auto) (0.00-0.02) K/uL PT (9.0-12.0) Seconds INR (0.9-1.1) APTT (21.0-31.0) Seconds PTT Ratio D-Dimer (0-500) ug/L FEU Sodium (136-145) mmol/L Potassium (3.5-5.1) mmol/L Chloride (98-107) mmol/L Carbon Dioxide (21-32) mmol/L Anion Gap (3-11) BUN (7-18) mg/dl Creatinine (0.6-1.4) mg/dl Est Cr Clr Drug Dosing ml/min Est GFR ( Amer) Est GFR (Non-Af Amer) BUN/Creatinine Ratio (10-20) Glucose (70-99) mg/dl Calcium (8.5-10.1) mg/dl Total Bilirubin (0.2-1) mg/dl AST (15-37) U/L ALT (12-78) U/L Alkaline Phosphatase (45-117) U/L Troponin I 0.060 H* (0-0.045) ng/ml Total Protein (6.4-8.2) gm/dl Albumin (3.4-5.0) gm/dl Globulin (2.5-4.0) gm/dl Albumin/Globulin Ratio (0.9-2) Lipase (73-393) U/L Administered Medications Multivitamins (Multivitamin Tab) 1 tab PO QAM LUCINDA Stop: 02/15/20 16:29 Last Admin: 01/16/20 17:06 Dose: 1 tab Documented by: [id number] Nicotine (Nicotine 21 Mg/24 Hr Tdsy) 21 mg TD QAM LUCINDA Stop: 02/15/20 16:29 Last Admin: 01/16/20 18:13 Dose: 21 mg Documented by: [id number] Discontinued Medications Thiamine HCl 100 mg/ Syringe 10 mls @ 2 mls/min IV NOW STA Stop: 01/16/20 16:23 Last Admin: 01/16/20 17:06 Dose: 2 mls/min Documented by: [id number] Folic Acid 1 mg/ Syringe 10 mls @ 5 mls/min IV NOW STA Stop: 01/16/20 16:20 Last Admin: 01/16/20 18:13 Dose: 5 mls/min Documented by: [id number] Ioversol (Optiray 320 125ml) 118 ml IV ONCE ONE Stop: 01/16/20 17:50 Last Admin: 01/16/20 17:50 Dose: 118 ml Documented by: [id number] Discharge Plan Visit Data Chief Complaint: Edema To Extremity Stated Complaint: EDEMA TO EXTREMITY ED Provider: Marciano Figueredo Discharge Problem: Leukopenia, Anemia, Elevated troponin, CHF (congestive heart failure) Discharge Instructions Interventions: ED Discharge Assessment Last Done: 01/16/20 20:01 Forms Stand Alone Forms: My [employer] Prescriptions Prescriptions: No Action Levemir FlexTouch U-100 Insuln 100 unit/mL (3 mL) Insulin Pen 40 unit SUBCUT HS RF: 0 insulin aspart U-100 [Novolog Flexpen U-100 Insulin] 100 unit/mL Insulin Pen See Rx Instructions .ROUTE .COMPLEX RF: 0 trazodone 50 mg Tablet 50 mg PO HS PRN (Reason: Insomnia) RF: 0 gabapentin 600 mg tablet 600 mg PO QID RF: 0 folic acid 1 mg tablet 1 mg PO QAM RF: 0 furosemide 20 mg tablet 20 mg PO QAM RF: 0 buprenorphine-naloxone 8-2 mg tablet, sublingual 1 tab SUBLINGUAL BID RF: 0 atorvastatin [Lipitor] 40 mg tablet 40 mg PO QAM RF: 0 clopidogrel [Plavix] 75 mg tablet 75 mg PO QAM RF: 0 lisinopril [Zestril] 40 mg tablet 40 mg PO QAM RF: 0 metoprolol succinate [Toprol XL] 50 mg tablet extended release 24 hr 50 mg PO QAM RF: 0 venlafaxine [Effexor XR] 150 mg capsule,extended release 24hr 150 mg PO QAM RF: 0 aspirin [Ecotrin Low Strength] 81 mg tablet,delayed release (DR/EC) 81 mg PO QAM RF: 0 Referrals Referrals: Charity Kasper MD [Primary Care Provider] - Discharge Problem: Leukopenia Qualifiers: Leukopenia type: unspecified Qualified Code(s): D72.819 - Decreased white blood cell count, unspecified Anemia Qualifiers: Anemia type: unspecified type Qualified Code(s): D64.9 - Anemia, unspecified CHF (congestive heart failure) Qualifiers: Heart failure type: unspecified Heart failure chronicity: unspecified Qualified Code(s): I50.9 - Heart failure, unspecified
[2020-01-16] MEDS ORDERED: FOLIC ACID 1 MG in SYRINGE 9.8 ML IV STA (16:19)
[2020-01-16] MEDS ORDERED: THIAMINE HCL 100 MG in SYRINGE 9 ML IV STA (16:19)
[2020-01-16 16:56] LABS: Basophils # (auto) 0.01 K/uL (0-0.2); Basophils % (auto) 0.2 %; Eosinophils # (auto) 0.15 K/uL (0-0.5); Eosinophils % (auto) 3.2 %; Hematocrit (blood only) 36.1 % (42-52); Hemoglobin 12.1 g/dL (14.0-18.0); Immature Granulocytes # (auto) 0.01 K/uL (0.00-0.02); Immature Granulocytes % (auto) 0.2 %; Lymphocytes # (auto) 1.66 K/uL (1.2-3.4); Lymphocytes % (auto) 35.6 %; Mean Corpuscular Hemoglobin 32.3 pg (25-34); Mean Corpuscular Hgb Conc 33.5 g/dL (32-36); Mean Corpuscular Volume 96.3 fL (80-100); Mean Platelet Volume 9.4 fL (7.4-10.4); Monocytes # (auto) 0.39 K/uL (0.11-0.59); Monocytes % (auto) 8.4 %; Neutrophils # (auto) 2.44 K/uL (1.4-6.5); Neutrophils % (auto) 52.4 %; Platelet Count 156 K/uL (130-400); RDW Coefficient of Variation 13.1 % (11.5-14.5); RDW Standard Deviation 46.1 fL (36.4-46.3); Red Blood Count 3.75 M/uL (4.7-6.1); White Blood Count 4.66 K/uL (4.8-10.8)
--- NOTE | 2020-01-16 17:04 | XRay Report ---
SINGLE VIEW CHEST CLINICAL HISTORY: Atypical chest pain. FINDINGS: An AP, portable, upright chest radiograph is compared to study dated 08/27/2019. The examinat ion is degraded by portable technique and apical lordotic positioning. The heart appears enlarged not ing atherosclerotic calcification of the thoracic aorta. The pulmonary vasculature is noncongested. C hronic interstitial thickening is similar to previous. There is mild bibasilar scarring/atelectasis. No airspace consolidation or large pleural effusion is identified. No pneumothorax is seen. The bony thorax is grossly intact. IMPRESSION: Cardiac enlargement with no acute cardiopulmonary abnormality. ACT 112: Negative or not required by law. Electronically signed by: Ivan Sprague M.D. 01/16/2020 5:02 PM
[2020-01-16] MEDS: MULTIVITAMIN TAB PO SCH (17:06)
[2020-01-16 17:07] LABS: INR 1.1 (0.9-1.1); Partial Thromboplastin Ratio 1.3; Partial Thromboplastin Time 36.9 Seconds (21.0-31.0); Prothrombin Time 11.4 Seconds (9.0-12.0)
[2020-01-16 17:10] LABS: D Dimer 1230 ug/L FEU (0-500)
[2020-01-16 17:14] LABS: Albumin Level 2.8 gm/dl (3.4-5.0); BUN Creatinine Ratio 19.2 (10-20); Calcium 8.4 mg/dl (8.5-10.1); Creatinine Clr Calc Pharmacy 116.8 ml/min; Est GFR (African American) 105.4; Est GFR (Non-African American) 90.9; Potassium 4.1 mmol/L (3.5-5.1)
[2020-01-16 17:21] LABS: Albumin Globulin Ratio 0.6 (0.9-2); Bilirubin,Total 0.7 mg/dl (0.2-1); Globulin 4.3 gm/dl (2.5-4.0); Total Protein 7.1 gm/dl (6.4-8.2); Troponin I 0.062 ng/ml (0-0.045)
[2020-01-16] MEDS ORDERED: OPTIRAY 320 125ml IV ONE (17:49)
--- NOTE | 2020-01-16 18:01 | CT Scan Report ---
CT ANGIOGRAM OF THE CHEST CLINICAL HISTORY: Dyspnea. Lower extremity edema. Elevated d-dimer. COMPARISON STUDY: Chest x-ray dated 01/16/2020. TECHNIQUE: Following the IV administration of 118 cc of Optiray 320, CT angiogram of the chest was pe rformed from the upper abdomen to the thoracic inlet utilizing the pulmonary embolus protocol. Images are reviewed in the axial, sagittal, and coronal planes. 3-D MIPS images are created and assessed. I V contrast was administered without complication. A dose lowering technique was utilized adhering to the principles of ALARA. CT DOSE: 781.07 mGy.cm FINDINGS: Thyroid: Imaged portions of the thyroid gland are normal in size and attenuation. Thoracic aorta: There is mild atherosclerotic calcification of the thoracic aorta, which is normal in caliber and demonstrates standard 3-vessel arch anatomy. No dissection is seen. Pulmonary vasculature: The pulmonary trunk is dilated, measuring 4.3 cm diameter. This suggests pulmo nary artery hypertension. There are no filling defects identified in main, lobar, or segmental pulmon mike branches to suggest pulmonary embolus. Heart: The heart is enlarged and without pericardial effusion. The coronary arteries are densely calc ified. Lungs and pleural spaces: Emphysematous change is noted. There is no airspace consolidation typical f or pneumonia or pleural effusion. Scarring/atelectasis is noted at both lung bases. The trachea and c entral airways are clear. Mediastinum: Numerous subcentimeter mediastinal lymph nodes are not pathologically enlarged by size c riteria. Marlen: Clear. Axillae: There is no axillary lymphadenopathy. Upper abdomen: The liver is enlarged and steatotic. A small hiatal hernia is noted. Skeletal structures: No lytic or blastic bony lesions are seen. Degenerative change is noted througho ut the thoracic spine. IMPRESSION: 1. There is no evidence of pulmonary embolus in the main, lobar, or segmental pulmonary arteries. 2. Emphysema. 3. Cardiomegaly with evidence of pulmonary artery hypertension. 4. There is no airspace consolidation or pleural effusion. 5. Hepatic steatosis. 6. Advanced coronary artery calcification. ACT 112: Negative or not required by law. Electronically signed by: Ivan Sprague M.D. 01/16/2020 6:00 PM
[2020-01-16] MEDS: NICOTINE 21 MG/24 HR TDSY TD SCH (18:13)
[2020-01-16] MEDS ORDERED: FUROSEMIDE 40 MG/4 ML VIAL IV STA (18:44)
--- NOTE | 2020-01-16 19:14 | History & Physical Report ---
Date of Service January 16, 2020 Assessment & Plan (1) Bilateral edema of lower extremity: Has been complaining of bilateral leg swelling for a while Worse for the last 2 weeks with increasing pain and tenderness and redness Could be secondary to alcoholic cardiomyopathy, right-sided heart failure or hypoalbuminemia from alcoholism We will hold outpatient Lasix and continue with IV Lasix 80 mg twice daily Get echocardiogram to evaluate cardiac function We will get ultrasound to rule out DVT CTA has been negative for any pulmonary embolism Bilateral leg cellulitis Has erysipelas Will start intravenous cefazolin (2) Alcohol abuse: History of alcohol abuse with withdrawal symptoms before Continues to drink heavy bottle of vodka daily last drink this morning No signs of withdrawal We will put him on gabapentin protocol We will continue oral thiamine and B6 and multivitamin (3) Type 2 diabetes mellitus: We will continue current medications Check hemoglobin A1c tomorrow (4) HTN (hypertension): Blood pressure remains upper side at 152/94 Continue lisinopril and beta-arnold (5) Tobacco use disorder: Has been smoking about 1/[address] scan did show emphysema and has COPD -Not listed in EPIC Minimal wheezing on examination Give nebs and inhaler but no steroid Strongly advised to quit smoking Continue with nicotine patch (6) Mood disorder: Continue antidepressant DVT prophylaxis Subcu heparin CODE STATUS Full History of Present Illness Chief Complaint: Increasing swelling of the legs Primary Care Provider: Charity Kasper MD He is a 54-year-old obese male with significant past medical history including alcoholism with recurrent withdrawal symptoms, chronic back pain, hypertension, type 2 diabetes with neuropathy, mood disorder has been complaining of bilateral leg swelling for the last 2 to 3 weeks. Recently he was seen by his primary care physician and was advised to come to the hospital for further evaluation and treatment. He complains to have shortness of breath with minimal exertion but denies any chest pain and/or palpitation with it. Denies any fever and/or chills but complains to have sweating especially at night with redness and warmth involving the lower extremities skin. He denies any problem with urine and bowel habit. He has been drinking about half a bottle of vodka daily and also smoking 1-1/2 pack daily. He does not have any withdrawal symptoms as of now. He was admitted to medical telemetry unit for continuation of care. All ergies Allergy/AdvReac Type Severity Reaction Status Date / Time No Known Allergies Allergy Verified 01/16/20 17:37 Home Medications Home Medications Medication Instructions Recorded Confirmed Type Levemir FlexTouch U-100 Insuln 40 unit SUBCUT HS 12/14/17 01/16/20 History insulin aspart U-100 [Novolog See Rx Instructions .ROUTE .COMPLEX 12/16/17 01/16/20 History Flexpen U-100 Insulin] trazodone 50 mg PO HS PRN 01/01/19 01/16/20 History aspirin [Ecotrin Low Strength] 81 mg PO QAM 08/26/19 01/16/20 History atorvastatin [Lipitor] 40 mg PO QAM 08/26/19 01/16/20 History clopidogrel [Plavix] 75 mg PO QAM 08/26/19 01/16/20 History lisinopril [Zestril] 40 mg PO QAM 08/26/19 01/16/20 History metoprolol succinate [Toprol XL] 50 mg PO QAM 08/26/19 01/16/20 History venlafaxine [Effexor XR] 150 mg PO QAM 08/26/19 01/16/20 History buprenorphine-naloxone 1 tab SUBLINGUAL BID 01/16/20 01/16/20 History folic acid 1 mg PO QAM 01/16/20 01/16/20 History furosemide 20 mg PO QAM 01/16/20 01/16/20 History gabapentin 600 mg PO QID 01/16/20 01/16/20 History Past Med/Surg History Medical History (Updated 01/16/20 @ 19:08 by Horace Yuen MD) Alcohol use disorder HTN (hypertension) Mood disorder Neuropathy NSTEMI (non-ST elevated myocardial infarction) Obesity CATALINO (obstructive sleep apnea) Tobacco use disorder Type 2 diabetes mellitus Surgical History History of cardiac catheterization 1 ELIESER to proximal OM by Dr. Guerrero on 01/01/19 History of lymph node biopsy Family History Other Heart disease Social History Smoking Status: Current every day smoker Tobacco Type: Cigarettes Years Smoked: 39; Cigarettes Per Day: 1.5 packs; Second Hand Exposure: Yes; Hx Alcohol Use: Yes Alcohol type: hard liquor Alcohol type Comment: Endorsing 3-5 beers intermittently over past few weeks. H/o heavy use Hx Substance Use: Yes Last Used Substance: Unknown Preferred Language: Slovak Communication Ability: Effective Certified Retinal Angiographer Required: No Beliefs That Will Affect Care: None marital status: Current Living Situation: Family current occupational status: unemployed Feels Safe at Home: Yes Assistive Devices: None Review of Systems Review of Systems: All systems reviewed & are unremarkable except as noted in HPI & below Physical Exam Physical Exam: Lying in bed comfortably Constitutional: well developed, well nourished and + morbidly obese; no acute distress Eyes: PERRL, conjunctivae normal, anicteric sclerae ENMT: external ear and nose normal, oropharynx normal Neck: trachea midline, no thyromegaly Respiratory: no respiratory distress Auscultation: + diminished lung sounds and + wheezes (Mild bilateral wheezing) Cardiovascular: Rate/Rhythm: regular rate and regular rhythm Heart Sounds: no murmur Extremities: + edema (2+ bilateral leg edema up to abdomen) Gastrointestinal (Abdomen): Inspection/Auscultation: + abdomen distended and normal bowel sounds Percussion/Palpation: abdomen soft; abdomen nontender Skin: + erythema (And increased temperature involving the skin of both lower extremities) Neurologic: Alert, awake and oriented x3. No focal sensory and motor deficit appreciated Psychiatric: A+Ox3, euthymic affect Lymphatic: no cervical or axillary lymphadenopathy Results & Data Results & Data ([facility]) Vital Signs (Past 12 Hours) Vital Signs Temp Pulse Resp BP Pulse Ox 01/16/20 18:40 71 152/94 H 95 01/16/20 18:13 80 L 01/16/20 16:52 70 16 129/72 95 01/16/20 15:19 36.8 C 88 18 142/84 H 92 Laboratory Results Short CBC 01/16/20 Range/Units 16:45 WBC 4.66 L (4.8-10.8) K/uL Hgb 12.1 L (14.0-18.0) g/dL Hct 36.1 L (42-52) % Plt Count 156 (130-400) K/uL BMP 01/16/20 16:45 Sodium 136 Potassium 4.1 Chloride 103 Carbon Dioxide 25 BUN 18 Creatinine 0.94 Glucose 159 H Calcium 8.4 L Cardiac Enzymes 01/16/20 Range/Units 16:45 Troponin I 0.062 H* (0-0.045) ng/ml Liver Function 01/16/20 Range/Units 16:45 Total Bilirubin 0.7 (0.2-1) mg/dl AST 85 H (15-37) U/L ALT 59 (12-78) U/L Alkaline Phosphatase 105 (45-117) U/L Albumin 2.8 L (3.4-5.0) gm/dl Medications Administered Current Inpatient Medications Furosemide (Furosemide 40 Mg/4 Ml Vial) 80 mg IV BID STA Stop: 01/16/20 18:45 Heparin Sodium (Porcine) (Heparin Sod 5,000 Unit/0.5 Ml Vial) 5,000 units SQ Q12 LUCINDA Stop: 02/15/20 20:59 Cefazolin Sodium (Ancef 1000mg) 1,000 mg in 7.5 mls @ 2.5 mls/min IV Q8H LUCINDA Stop: 01/23/20 18:59 Miscellaneous (Remove Nicoderm Patch) 1 ea N/A DAILY@[id number] [facility] Stop: 02/16/20 08:58 Multivitamins (Multivitamin Tab) 1 tab PO QAM [facility] Stop: 02/15/20 16:29 Last Admin: 01/16/20 17:06 Dose: 1 tab Documented by: Nicotine (Nicotine 21 Mg/24 Hr Tdsy) 21 mg TD QAM [facility] Stop: 02/15/20 16:29 Last Admin: 01/16/20 18:13 Dose: 21 mg Documented by: Thiamine HCl (Thiamine Hcl 100 Mg Tab) 100 mg PO QAM [facility] Stop: 02/16/20 08:59 Code Status & VTE Plan VTE Prophylaxis Plan VTE Prophylaxis will be ordered: Yes
[2020-01-16] MEDS ORDERED: ALBUTEROL 0.083% NEBU SOLN 3 ML VIAL NEB PRN (19:34)
[2020-01-16] MEDS ORDERED: ALBUTEROL HFA 8 GM INHALER INH PRN (19:34)
[2020-01-16] MEDS ORDERED: GABAPENTIN 1200MG ALCOHOL WITHDRAWAL LOAD PO PRN (21:26)
[2020-01-16] MEDS ORDERED: GABAPENTIN 600 MG TAB PO ONE (21:30)
[2020-01-16] MEDS ORDERED: FUROSEMIDE 40 MG/4 ML VIAL IV ONE (21:30)
[2020-01-16] MEDS ORDERED: ceFAZolin 1000MG 1,000 MG/7.5 ML SYR IV ONE (21:30)
[2020-01-16] MEDS ORDERED: GLUCOSE 40% GEL 15 GM TUBE PO PRN (22:00)
[2020-01-16] MEDS ORDERED: GLUCAGON FOR INJ 1 MG VIAL IM PRN (22:00)
[2020-01-16] MEDS ORDERED: DEXTROSE 50% 50 ML SYRINGE IV PRN (22:00)
[2020-01-16] MEDS ORDERED: GLUCOSE 10 TABS/TUBE PO PRN (22:00)
[2020-01-16] MEDS ORDERED: CARBOHYDRATES FOR HYPOGLYCEMIA PO PRN (22:00)
[2020-01-16] MEDS: FUROSEMIDE 80 MG in SYRINGE 0 ML IV SCH (22:35)
[2020-01-16] MEDS: INSULIN DETEMIR FLEXPEN/FLEX TOUCH 100 UNITS/ML 3ML SQ SCH (22:35)
[2020-01-16] MEDS: HEPARIN SOD 5,000 UNIT/0.5 ML VIAL SQ SCH (22:36)
[2020-01-17] MEDS: INSULIN ASPART 100 UNITS/ML 3 ML PEN SC SCH ×5 (00:20→21:07)
[2020-01-17] MEDS: ceFAZolin 1000MG 1,000 MG/7.5 ML SYR IV SCH ×3 (05:39→21:08)
[2020-01-17] MEDS ORDERED: GABAPENTIN 600 MG TAB PO SCH ×2 (06:00→22:00)
[2020-01-17 06:42] LABS: Basophils # (auto) 0.01 K/uL (0-0.2); Basophils % (auto) 0.2 %; Eosinophils # (auto) 0.09 K/uL (0-0.5); Eosinophils % (auto) 2.1 %; Hematocrit (blood only) 38.1 % (42-52); Hemoglobin 12.7 g/dL (14.0-18.0); Lymphocytes # (auto) 0.94 K/uL (1.2-3.4); Lymphocytes % (auto) 22.4 %; Mean Corpuscular Hemoglobin 32.7 pg (25-34); Mean Corpuscular Hgb Conc 33.3 g/dL (32-36); Mean Corpuscular Volume 98.2 fL (80-100); Mean Platelet Volume 9.8 fL (7.4-10.4); Monocytes # (auto) 0.58 K/uL (0.11-0.59); Monocytes % (auto) 13.8 %; Neutrophils # (auto) 2.58 K/uL (1.4-6.5); Neutrophils % (auto) 61.5 %; Platelet Count 167 K/uL (130-400); RDW Coefficient of Variation 13.2 % (11.5-14.5); RDW Standard Deviation 47.4 fL (36.4-46.3); Red Blood Count 3.88 M/uL (4.7-6.1)
--- NOTE | 2020-01-17 07:08 | Ultrasound Report ---
BILATERAL LOWER EXTREMITY VENOUS DOPPLER HISTORY: Leg swelling. COMPARISON STUDY: None. FINDINGS: There is normal compressibility, flow, and augmentation within the bilateral lower extremit y deep venous systems. IMPRESSION: No DVT within the right or left lower extremity. ACT 112: Negative or not required by law. Electronically signed by: Greg Goyal M.D. 01/17/2020 7:07 AM
[2020-01-17] MEDS ORDERED: PERFLUTREN LIPID MICROSPHERE (DEFINITY) IV ONE (07:13)
[2020-01-17 07:14] LABS: Albumin Level 2.8 gm/dl (3.4-5.0); BUN Creatinine Ratio 21.3 (10-20); Calcium 8.7 mg/dl (8.5-10.1); Creatinine Clr Calc Pharmacy 116.8 ml/min; Est GFR (African American) 106.7; Est GFR (Non-African American) 92.1; Magnesium 1.6 mg/dl (1.8-2.4); Potassium 4.5 mmol/L (3.5-5.1)
[2020-01-17 07:16] LABS: Albumin Globulin Ratio 0.6 (0.9-2); Bilirubin,Total 0.7 mg/dl (0.2-1); Globulin 4.5 gm/dl (2.5-4.0); Phosphorus 3.4 mg/dl (2.5-4.9); Total Protein 7.3 gm/dl (6.4-8.2)
[2020-01-17] MEDS: ASPIRIN 81 MG ECTAB PO SCH (07:46)
[2020-01-17] MEDS: FUROSEMIDE 80 MG in SYRINGE 0 ML IV SCH (07:46)
[2020-01-17] MEDS: FOLIC ACID 1 MG TAB PO SCH (07:46)
[2020-01-17] MEDS: CLOPIDOGREL BISULFATE 75 MG TAB PO SCH (07:46)
[2020-01-17] MEDS: lisinopril 40 MG TAB PO SCH (07:46)
[2020-01-17] MEDS: VENLAFAXINE HCL XR 150 MG CAPXR PO SCH (07:46)
[2020-01-17] MEDS: THIAMINE HCL 100 MG TAB PO SCH (07:47)
[2020-01-17] MEDS: METOPROLOL SUCC 50MG EXT REL TAB PO SCH (07:47)
[2020-01-17] MEDS: ATORVASTATIN 40 MG TAB PO SCH (07:47)
[2020-01-17] MEDS: NICOTINE 21 MG/24 HR TDSY TD SCH (08:25)
[2020-01-17] MEDS: MULTIVITAMIN TAB PO SCH (08:25)
[2020-01-17] MEDS: BUPRENORPHINE/NALOXONE 8/2 MG TAB SL SCH ×2 (08:25→21:09)
[2020-01-17] MEDS: HEPARIN SOD 5,000 UNIT/0.5 ML VIAL SQ SCH (08:26)
[2020-01-17 08:29] LABS: Estimated Average Glucose 192 mg/dl; Hemoglobin A1C 8.3 % (4.5-5.6)
[2020-01-17] MEDS ORDERED: chlordiazePOXIDE ALCOHOL WITHDRAWL 25MG PO STA (09:35)
[2020-01-17] MEDS ORDERED: LORazepam 2 MG/4 ML VIAL IV STA (09:36)
[2020-01-17] MEDS ORDERED: LORazepam 2 MG/4 ML VIAL IV PRN (09:37)
[2020-01-17] MEDS ORDERED: diphenhydrAMINE 50 MG/ML VIAL IV STA (09:38)
[2020-01-17] MEDS ORDERED: diphenhydrAMINE Capsule 25 MG CAP PO PRN (09:38)
--- NOTE | 2020-01-17 09:46 | Hospitalist Progress Note ---
Date of Service January 17, 2020 Assessment & Plan (1) Bilateral edema of lower extremity: Bilateral leg cellulitis, erysipelas -As per ED notes on 01/16/2020 that "Patient is a 54-year-old male with a past medical history of alcohol abuse who presents to the ER for swelling of the legs and shortness of breath which has been worsening for the past 3.5 weeks. He notes the swelling has been gradually getting worse." as per admission note that patient "has been complaining of bilateral leg swelling for a while, Worse for the last 2 weeks with increasing pain and tenderness and redness" -There is no evidence of pulmonary embolus in the main, lobar, or segmental pulmonary arteries on chest CTA 01/16/2020. No DVT within the right or left lower extremity based on 01/16/2020 -patient was started on cefazolin q8 hours, continue. A blood culture to be obtained on 01/17/2020 -Patient initially given IV Lasix. echocardiogram performed on 01/17/2020 with results pending -hold Lasix for now and re-assess based on volume status and echocardiogram results -prn Benadryl for pruritus -check uric acid levels -check TSH (2) Alcohol abuse: -Patient reports regular daily use of vodka at home -He reports he was in alcohol rehab in the past -He currently lives in an RV -will have case briefer consultation (3) Alcohol withdrawal syndrome without complication: -patient was initially started on gabapentin alcohol withdrawal protocol -On exam on 01/17/2020, patient with tremors of the upper extremities and high blood pressure. Patient to be switched from gabapentin alcohol withdrawal p rotocol to Librium alcohol withdrawal protocol. The Librium may need to be titrated based on symptoms. -also prn IV ativan if agitation -additional banana bag ordered for 01/17/2020, continue daily thiamine and daily folic acid -serum albumin 2.8, chemistry quality control analyst consult (4) HTN (hypertension): -Continue home dose lisinopril 40 mg daily and metoprolol succinate 50 mg daily -adjust diuretics as needed based on volume status -treat alcohol withdrawal (5) Hypomagnesemia: -serum magnesium 1.6 -may have been due to initial IV Lasix -give IV and oral magnesium (6) CAD (coronary artery disease): History of myocardial infraction in the past with stent -continue aspirin and clopidogral daily -on atorvastatin 40 mg daily, check creatinine kinase (7) Type 2 diabetes mellitus: 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 will continue gabapentin as 100 mg TID for now (8) Tobacco use disorder: -Has been smoking about 1/[address] scan did show emphysema and has COPD -Not listed in EPIC Nebulizers and inhalers as needed -smoking cessation advised, Continue with nicotine patch Chronic Back Pain -on buprenorphine-naloxone (suboxone) BID, patient reports the indication for this medication as outpatient for back pain, not for any drug substance abuse -PT/OT evaluations (9) Mood disorder: Continue antidepressant Effexor 150 mg daily DVT Prophylaxis: Lovenox 40 mg subcutaneous daily Admission and Anticipated Discharge Date Admission Date: January 16, 2020 Subjective -On exam on 01/17/2020, patient with tremors of the upper extremities and high blood pressure. Patient to be switched from gabapentin alcohol withdrawal protocol to Librium alcohol withdrawal protocol. The Librium may need to be titrated based on symptoms. patient wishes to ambulate. He reports still some calf tightness. no chest pain. no palpitations. no dizziness. no headache. he is on nasal cannula oxygen. denies oxygen use at home Review of Systems Review of Systems: All systems reviewed & are unremarkable except as noted in Subjective Physical Exam Constitutional: + obese Eyes: PERRL, conjunctivae normal, anicteric sclerae EOM intact bilaterally ENMT: external ear and nose normal, oropharynx normal Neck: trachea midline, no thyromegaly normal visual inspection Respiratory: normal respiratory effort, lungs clear to auscultation Cardiovascular: Rate/Rhythm: + tachycardic Gastrointestinal (Abdomen): normal bowel sounds, soft, nontender, no hepatosplenomegaly Musculoskeletal: Head/Neck/Chest: normocephalic and head atraumatic Neurologic: PERRL, EOMI, accommodation nl, no face palsy, no dysarthria CN's II-XI intact bilaterally and moves all extremities upper extremity tremors Psychiatric: A+Ox3, euthymic affect Results & Data Results & Data ([facility]) Vital Signs (Past 12 Hours) Vital Signs Temp Pulse Pulse Resp BP Pulse Ox 01/17/20 07:27 36.7 C 104 H 19 193/93 H 93 01/17/20 04:03 36.5 C 81 18 164/85 H 95 01/17/20 00:43 70 01/16/20 23:00 36.5 C 77 18 165/93 H 94 01/16/20 21:58 77
[2020-01-17] MEDS ORDERED: cefTRIAXone SODIUM 1,000 MG in DEXTROSE 5% 50 ML IV SCH (10:00)
[2020-01-17] MEDS ORDERED: MULTI-VITAMIN INFUSION 10 ML, THIAMINE HCL 100 MG, FOLIC ACID 1 MG in SODIUM CHLORIDE 0... IV ONE (10:00)
[2020-01-17] MEDS: MAGNESIUM SULFATE / D5W 1 GM/100 ML BAG IV SCH ×2 (10:20→12:23)
[2020-01-17] MEDS: MAGNESIUM OXIDE 400 MG TAB PO SCH (10:21)
[2020-01-17] MEDS: chlordiazePOXIDE HCl 25 MG CAP PO SCH ×3 (10:21→21:09)
[2020-01-17 10:42] LABS: C Reactive Protein 1.55 mg/dl (0-0.29); Thyroid Stimulating Hormone 2.89 uIu/ml (0.300-4.500); Uric Acid 9.5 mg/dl (2.6-7.2)
[2020-01-17 10:52] LABS: Creatine Kinase 143 U/L (39-308); NT Pro B Type Natriuretic Pept 1811 pg/ml (0-900)
[2020-01-17] MEDS ORDERED: PANTOprazole 40 MG TAB PO SCH (13:15)
[2020-01-17] MEDS ORDERED: ENOXAPARIN INJ 40 MG/0.4 ML SYR SQ ONE (14:00)
[2020-01-17 14:26] LABS: Albumin Level 2.7 gm/dl (3.4-5.0); BUN Creatinine Ratio 19.9 (10-20); Creatinine Clr Calc Pharmacy 97.8 ml/min; Est GFR (African American) 86.2; Est GFR (Non-African American) 74.4; Potassium 4.3 mmol/L (3.5-5.1)
[2020-01-17 14:28] LABS: Albumin Globulin Ratio 0.6 (0.9-2); Bilirubin,Total 0.8 mg/dl (0.2-1); Globulin 4.5 gm/dl (2.5-4.0); Total Protein 7.2 gm/dl (6.4-8.2)
[2020-01-17] MEDS: FAMOTIDINE 20 MG TAB PO SCH (14:33)
[2020-01-17] MEDS: GABAPENTIN 100 MG CAP PO SCH ×2 (14:33→21:08)
--- NOTE | 2020-01-17 19:13 | Electrocardiogram Report ---
Test Reason : Blood Pressure : / mmHG Vent. Rate : 075 BPM Atrial Rate : 075 BPM P-R Int : 160 ms QRS Dur : 098 ms QT Int : 422 ms P-R-T Axes : 020 002 044 degrees QTc Int : 471 ms Normal sinus rhythm Normal ECG When compared with ECG of 26-AUG-2019 21:05, Vent. rate has decreased BY 37 BPM Confirmed by Dandre Lea ([id number]) on 01/17/2020 7:12:57 PM Referred By: Charity Kasper Confirmed By:Dandre Lea
[2020-01-17] MEDS: INSULIN DETEMIR FLEXPEN/FLEX TOUCH 100 UNITS/ML 3ML SQ SCH (21:07)
[2020-01-17] MEDS: traZODone HCL 50 MG TAB PO PRN (21:09)
[2020-01-18] MEDS: chlordiazePOXIDE HCl 25 MG CAP PO SCH ×3 (04:05→17:30)
[2020-01-18] MEDS: ceFAZolin 1000MG 1,000 MG/7.5 ML SYR IV SCH ×3 (06:02→22:38)
[2020-01-18 06:20] LABS: Albumin Level 2.4 gm/dl (3.4-5.0); BUN Creatinine Ratio 20.9 (10-20); Calcium 8.4 mg/dl (8.5-10.1); Creatinine Clr Calc Pharmacy 104.7 ml/min; Est GFR (African American) 93.2; Est GFR (Non-African American) 80.5; Potassium 4.1 mmol/L (3.5-5.1)
[2020-01-18 06:23] LABS: Albumin Globulin Ratio 0.6 (0.9-2); Bilirubin,Total 0.6 mg/dl (0.2-1); Total Protein 6.4 gm/dl (6.4-8.2)
[2020-01-18] MEDS: LORazepam 1 MG/2 ML VIAL IV PRN ×4 (06:40→21:37)
[2020-01-18] MEDS: FOLIC ACID 1 MG TAB PO SCH (08:19)
[2020-01-18] MEDS: ASPIRIN 81 MG ECTAB PO SCH (08:19)
[2020-01-18] MEDS: ENOXAPARIN INJ 40 MG/0.4 ML SYR SQ SCH (08:19)
[2020-01-18] MEDS: NICOTINE 21 MG/24 HR TDSY TD SCH (08:19)
[2020-01-18] MEDS: VENLAFAXINE HCL XR 150 MG CAPXR PO SCH (08:19)
[2020-01-18] MEDS: ATORVASTATIN 40 MG TAB PO SCH (08:19)
[2020-01-18] MEDS: MAGNESIUM OXIDE 400 MG TAB PO SCH (08:19)
[2020-01-18] MEDS: METOPROLOL SUCC 50MG EXT REL TAB PO SCH (08:19)
[2020-01-18] MEDS: GABAPENTIN 100 MG CAP PO SCH ×3 (08:19→20:57)
[2020-01-18] MEDS: MULTIVITAMIN TAB PO SCH (08:19)
[2020-01-18 08:20] LABS: Phosphorus 2.7 mg/dl (2.5-4.9)
[2020-01-18] MEDS: THIAMINE HCL 100 MG TAB PO SCH (08:20)
[2020-01-18] MEDS: CLOPIDOGREL BISULFATE 75 MG TAB PO SCH (08:20)
[2020-01-18] MEDS: lisinopril 40 MG TAB PO SCH (08:20)
[2020-01-18] MEDS: INSULIN ASPART 100 UNITS/ML 3 ML PEN SC SCH ×4 (08:20→21:40)
[2020-01-18] MEDS: BUPRENORPHINE/NALOXONE 8/2 MG TAB SL SCH ×2 (08:20→22:10)
[2020-01-18] MEDS: FAMOTIDINE 20 MG TAB PO SCH (08:20)
--- NOTE | 2020-01-18 10:15 | Hospitalist Progress Note ---
Date of Service January 18, 2020 Assessment & Plan (1) Bilateral edema of lower extremity: Bilateral leg cellulitis, erysipelas Elevated Uric Acid Bilateral lower extremity edema could be from acute diastolic congestive heart failure -As per ED notes on 01/16/2020 that "Patient is a 54-year-old male with a past medical history of alcohol abuse who presents to the ER for swelling of the legs and shortness of breath which has been worsening for the past 3.5 weeks. He notes the swelling has been gradually getting worse." as per admission note that patient "has been complaining of bilateral leg swelling for a while, Worse for the last 2 weeks with increasing pain and tenderness and redness" -There is no evidence of pulmonary embolus in the main, lobar, or segmental pulmonary arteries on chest CTA 01/16/2020. No DVT within the right or left lower extremity based on 01/16/2020 -patient was started on cefazolin q8 hours, continue. A blood culture to be obtained on 01/17/2020 -Patient initially given IV Lasix. echocardiogram performed on 01/17/2020 with normal ejection fraction of 60 to 65%, elevated BNP on 01/17/2020 -01/18/2020: continue Lasix as 20 mg IV TID to continue to decrease te leg edema; continue diet with fluid restriction to 1800 ml daily -prn Benadryl for pruritus, uric acid level are elevated as 9.5 on 01/17/2020, no history of gout, can start allopurinol empirically on 01/18/2020 prevent gout tophi -TSH normal (2) Alcohol abuse: -Patient reports regular daily use of vodka at home -He reports he was in alcohol rehab in the past -He currently lives in an -case packer and sealer consultation (3) Alcohol withdrawal syndrome without complication: -patient was initially started on gabapentin alcohol withdrawal protocol -On exam on 01/17/2020, patient with tremors of the upper extremities and high blood pressure. Patient to be switched from gabapentin alcohol withdrawal protocol to Librium alcohol withdrawal protocol. The Librium may need to be titrated based on symptoms. -also prn IV ativan if agitation -additional banana bag ordered for 01/17/2020, continue daily thiamine and daily folic acid -serum albumin 2.8 on 01/17/2020, flame burner consult following with BOOST supplements (4) HTN (hypertension): -Continue home dose lisinopril 40 mg daily and metoprolol succinate 50 mg daily -adjust diuretics as needed based on volume status -treat alcohol withdrawal (5) Hypomagnesemia: -serum magnesium 1.6 on 01/17/2020, may have been due to initial IV Lasix, given IV and oral magnesium -serum magnesium at goal on 01/18/2020, continue oral magnesium (6) CAD (coronary artery disease): History of myocardial infraction in the past with stent -continue aspirin and clopidogral daily -on atorvastatin 40 mg daily, creatinine kinase normal (7) Type 2 diabetes mellitus: Type 2 diabetes mellitus with terminal clerk current use of insulin with neuropathy -HbA1c 8.3 -give insulin, check blood sugar -patient reports that since alcohol rehabilitation stay in August, he was not given gabapentin there and in the past took gabapentin for history of neuropathy. will continue gabapentin as 100 mg TID for now (8) Tobacco use disorder: Emphysema -Has been smoking about 1/[address] scan did show emphysema and has COPD -Not listed in EPIC Nebulizers and inhalers as needed -smoking cessation advised, Continue with nicotine patch -monitor supplementary oxygen requirements Chronic Back Pain -on buprenorphine-naloxone (suboxone) BID, patient reports the indication for this medication as outpatient for back pain, not for any drug substance abuse -PT/OT evaluations (9) Mood disorder: -Continue antidepressant Effexor 150 mg daily DVT Prophylaxis: Lovenox 40 mg subcutaneous daily Admission and Anticipated Discharge Date Admission Date: January 16, 2020 Subjective Patient seen and examined at bedside. He reports that tremors of upper extremities affected him while eating the breakfast. He feels symptoms improved with recent ativan. Patient continues to be on nasal cannula oxygen. He reports the leg and calf swelling bilaterally has decreased to some degree while in the hospital. no vomiting. no dizziness. he is making the urine. denies other symptoms Review of Systems Review of Systems: All systems reviewed & are unremarkable except as noted in Subjective Physical Exam Constitutional: + obese Eyes: PERRL, conjunctivae normal, anicteric sclerae EOM intact bilaterally ENMT: external ear and nose normal, oropharynx normal Neck: trachea midline, no thyromegaly normal visual inspection Respiratory: normal respiratory effort, lungs clear to auscultation Cardiovascular: Rate/Rhythm: regular rate and regular rhythm Gastrointestinal (Abdomen): normal bowel sounds, soft, nontender, no hepatosplenomegaly Musculoskeletal: Head/Neck/Chest: normocephalic and head atraumatic Neurologic: PERRL, EOMI, accommodation nl, no face palsy, no dysarthria CN's II-XI intact bilaterally and moves all extremities Psychiatric: A+Ox3, euthymic affect Results & Data Results & Data ([facility]) Vital Signs (Past 12 Hours) Vital Signs Temp Pulse Pulse Resp BP Pulse Ox 01/18/20 07:41 36.8 C 90 154/85 H 93 01/18/20 07:01 92 H 01/18/20 03:34 36.7 C 94 H 21 160/85 H 93 01/18/20 01:44 93 H 01/18/20 00:17 36.8 C 95 H 20 167/89 H 94
[2020-01-18] MEDS ORDERED: allopurinoL 100 MG TAB PO ONE (10:19)
--- NOTE | 2020-01-18 10:31 | XRay Report ---
SINGLE VIEW CHEST CLINICAL HISTORY: Crackles on physical examination. FINDINGS: An AP, portable, upright chest radiograph is compared to chest x-ray and chest CT dated . The heart is enlarged. The pulmonary vasculature is noncongested. Foci of linear atelectasis /scarring are present in the left lower lung. No airspace consolidation or large pleural effusion is identified. No pneumothorax is seen. The bony thorax is grossly intact. IMPRESSION: Cardiac enlargement with no acute cardiopulmonary abnormality. ACT 112: Negative or not required by law. Electronically signed by: Ivan Sprague M.D. 01/18/2020 10:30 AM
[2020-01-18] MEDS ORDERED: FUROSEMIDE 20 MG in SYRINGE 0 ML IV ONE (10:45)
[2020-01-18] MEDS: FUROSEMIDE 20 MG in SYRINGE 0 ML IV SCH ×2 (15:18→20:56)
[2020-01-18] MEDS: INSULIN DETEMIR FLEXPEN/FLEX TOUCH 100 UNITS/ML 3ML SQ SCH (20:56)
[2020-01-18] MEDS ORDERED: LORazepam 1 MG/2 ML VIAL IV STA (21:27)
[2020-01-18] MEDS ORDERED: chlordiazePOXIDE HCl 25 MG CAP PO ONE (21:31)
[2020-01-19] MEDS ORDERED: GABAPENTIN 600 MG TAB PO SCH
[2020-01-19] MEDS: chlordiazePOXIDE HCl 25 MG CAP PO SCH (02:10)
[2020-01-19] MEDS: LORazepam 1 MG/2 ML VIAL IV PRN (02:20)
[2020-01-19] MEDS: ceFAZolin 1000MG 1,000 MG/7.5 ML SYR IV SCH ×3 (05:58→22:06)
[2020-01-19 06:35] LABS: Basophils # (auto) 0.02 K/uL (0-0.2); Basophils % (auto) 0.5 %; Eosinophils # (auto) 0.18 K/uL (0-0.5); Eosinophils % (auto) 4.5 %; Hematocrit (blood only) 36.3 % (42-52); Hemoglobin 11.8 g/dL (14.0-18.0); Immature Granulocytes # (auto) 0.01 K/uL (0.00-0.02); Immature Granulocytes % (auto) 0.2 %; Lymphocytes # (auto) 1.34 K/uL (1.2-3.4); Lymphocytes % (auto) 33.3 %; Mean Corpuscular Hemoglobin 32.5 pg (25-34); Mean Corpuscular Hgb Conc 32.5 g/dL (32-36); Mean Platelet Volume 9.9 fL (7.4-10.4); Monocytes # (auto) 0.51 K/uL (0.11-0.59); Monocytes % (auto) 12.7 %; Neutrophils # (auto) 1.96 K/uL (1.4-6.5); Neutrophils % (auto) 48.8 %; Platelet Count 159 K/uL (130-400); RDW Coefficient of Variation 12.8 % (11.5-14.5); RDW Standard Deviation 46.8 fL (36.4-46.3); Red Blood Count 3.63 M/uL (4.7-6.1); White Blood Count 4.02 K/uL (4.8-10.8)
[2020-01-19 07:06] LABS: Albumin Level 2.6 gm/dl (3.4-5.0); BUN Creatinine Ratio 24.9 (10-20); Calcium 8.9 mg/dl (8.5-10.1); Creatinine Clr Calc Pharmacy 122.9 ml/min; Est GFR (African American) 114.2; Est GFR (Non-African American) 98.6; Magnesium 1.9 mg/dl (1.8-2.4)
[2020-01-19 07:12] LABS: Albumin Globulin Ratio 0.6 (0.9-2); Bilirubin,Total 0.7 mg/dl (0.2-1); Globulin 4.5 gm/dl (2.5-4.0); Phosphorus 3.8 mg/dl (2.5-4.9); Total Protein 7.1 gm/dl (6.4-8.2)
[2020-01-19] MEDS: FUROSEMIDE 20 MG in SYRINGE 0 ML IV SCH ×3 (07:44→20:09)
[2020-01-19] MEDS: MAGNESIUM OXIDE 400 MG TAB PO SCH (07:45)
[2020-01-19] MEDS: THIAMINE HCL 100 MG TAB PO SCH (07:45)
[2020-01-19] MEDS: CLOPIDOGREL BISULFATE 75 MG TAB PO SCH (07:45)
[2020-01-19] MEDS: allopurinoL 100 MG TAB PO SCH (07:48)
[2020-01-19] MEDS: METOPROLOL SUCC 50MG EXT REL TAB PO SCH (07:49)
[2020-01-19] MEDS: ASPIRIN 81 MG ECTAB PO SCH (07:49)
[2020-01-19] MEDS: MULTIVITAMIN TAB PO SCH (07:50)
[2020-01-19] MEDS: lisinopril 40 MG TAB PO SCH (07:50)
[2020-01-19] MEDS: ATORVASTATIN 40 MG TAB PO SCH (07:50)
[2020-01-19] MEDS: FOLIC ACID 1 MG TAB PO SCH (07:50)
[2020-01-19] MEDS: FAMOTIDINE 20 MG TAB PO SCH (07:51)
[2020-01-19] MEDS: VENLAFAXINE HCL XR 150 MG CAPXR PO SCH (07:51)
[2020-01-19] MEDS: GABAPENTIN 100 MG CAP PO SCH ×3 (07:51→20:09)
--- NOTE | 2020-01-19 07:51 | Hospitalist Progress Note ---
Date of Service January 19, 2020 Assessment & Plan (1) Bilateral edema of lower extremity: Bilateral leg cellulitis, erysipelas Elevated Uric Acid Bilateral lower extremity edema could be from acute diastolic congestive heart failure -As per ED notes on 01/16/2020 that "Patient is a 54-year-old male with a past medical history of alcohol abuse who presents to the ER for swelling of the legs and shortness of breath which has been worsening for the past 3.5 weeks. He notes the swelling has been gradually getting worse." as per admission note that patient "has been complaining of bilateral leg swelling for a while, Worse for the last 2 weeks with increasing pain and tenderness and redness" -There is no evidence of pulmonary embolus in the main, lobar, or segmental pulmonary arteries on chest CTA 01/16/2020. No DVT within the right or left lower extremity based on 01/16/2020 -patient was started on cefazolin q8 hours, continue. A blood culture to be obtained on 01/17/2020 -Patient initially given IV Lasix. echocardiogram performed on 01/17/2020 with normal ejection fraction of 60 to 65%, elevated BNP on 01/17/2020 -01/18/2020: continue Lasix as 20 mg IV TID to continue to decrease te leg edema; continue diet with fluid restriction to 1800 ml daily -prn Benadryl for pruritus, uric acid level are elevated as 9.5 on 01/17/2020, no history of gout, can start allopurinol empirically on 01/18/2020 prevent gout tophi -TSH normal 01/19/2020: Patient making good urine output while on IV Lasix and fluid restriction. Patient using the incentive spirometer. Discussed with patient about continue the IV Lasix and other health issues. Patient to have the supplem entary oxygen titrated down by nursing as tolerated. continue IV cefazolin for now. The legs are less red but still have edema (2) Alcohol abuse: -Patient reports regular daily use of vodka at home -He reports he was in alcohol rehab in the past -He currently lives in an -nurse case management consultation (3) Alcohol withdrawal syndrome without complication: -patient was initially started on gabapentin alcohol withdrawal protocol -On exam on 01/17/2020, patient with tremors of the upper extremities and high blood pressure. Patient to be switched from gabapentin alcohol withdrawal protocol to Librium alcohol withdrawal protocol. The Librium may need to be titrated based on symptoms. -also prn IV ativan if agitation -additional banana bag ordered for 01/17/2020, continue daily thiamine and daily folic acid -serum albumin 2.8 on 01/17/2020, jira administrator consult following with BOOST supplements (4) HTN (hypertension): -Continue home dose lisinopril 40 mg daily and metoprolol succinate 50 mg daily -adjust diuretics as needed based on volume status -treat alcohol withdrawal (5) Hypomagnesemia: -serum magnesium 1.6 on 01/17/2020, may have been due to initial IV Lasix, given IV and oral magnesium -serum magnesium at goal on 01/18/2020, continue oral magnesium (6) CAD (coronary artery disease): History of myocardial infraction in the past with stent -continue aspirin and clopidogral daily -on atorvastatin 40 mg daily, creatinine kinase normal (7) Type 2 diabetes mellitus: Type 2 diabetes mellitus with fci current use of insulin with neuropathy -HbA1c 8.3 -give insulin, check blood sugar -patient reports that since alcohol rehabilitation stay in August, he was not given gabapentin there and in the past took gabapentin for history of neuropathy. continue gabapentin as 100 mg TID for now (8) Tobacco use disorder: Emphysema -Has been smoking about 1/[address] scan did show emphysema and has COPD -Not listed in EPIC Nebulizers and inhalers as needed -smoking cessation advised, Continue with nicotine patch -CXR on 01/18/2020 continues to show clear lung santoro, titrate down the supplementary oxygen requirements Chronic Back Pain -on buprenorphine-naloxone (suboxone) BID, patient reports the indication for this medication as outpatient for back pain, not for any drug substance abuse -PT/OT evaluations (9) Mood disorder: -Continue antidepressant Effexor 150 mg daily DVT Prophylaxis: Lovenox 40 mg subcutaneous daily Admission and Anticipated Discharge Date Admission Date: January 16, 2020 Subjective Patient making good urine output while on IV Lasix. Patient using the incentive spirometer. Discussed with patient about continue the IV Lasix and other health issues. Patient to have the supplementary oxygen titrated down by nursing as tolerated Patient denies chest pain or abdomen pain. no dizziness. no headache. no vomiting. Review of Systems Review of Systems: All systems reviewed & are unremarkable except as noted in Subjective Physical Exam Constitutional: + obese Eyes: PERRL, conjunctivae normal, anicteric sclerae EOM intact bilaterally ENMT: external ear and nose normal, oropharynx normal Neck: trachea midline, no thyromegaly normal visual inspection Respiratory: normal respiratory effort, lungs clear to auscultation Cardiovascular: Rate/Rhythm: regular rate and regular rhythm Gastrointestinal (Abdomen): normal bowel sounds, soft, nontender, no hepatosplenomegaly Musculoskeletal: Head/Neck/Chest: normocephalic and head atraumatic Extremities: + lower leg abnormality (bilateral lower extremity edema) Neurologic: PERRL, EOMI, accommodation nl, no face palsy, no dysarthria CN's II-XI intact bilaterally and moves all extremities Psychiatric: A+Ox3, euthymic affect Results & Data Results & Data ([facility]) Vital Signs (Past 12 Hours) Vital Signs Temp Pulse Pulse Resp BP Pulse Ox 01/19/20 07:37 36.7 C 69 19 178/104 H 90 01/19/20 02:13 36.5 C 75 20 172/88 H 96 01/19/20 00:00 77 01/18/20 22:37 36.6 C 75 20 177/94 H 94
[2020-01-19] MEDS: ENOXAPARIN INJ 40 MG/0.4 ML SYR SQ SCH (07:52)
[2020-01-19] MEDS: NICOTINE 21 MG/24 HR TDSY TD SCH (07:53)
[2020-01-19] MEDS: BUPRENORPHINE/NALOXONE 8/2 MG TAB SL SCH ×2 (07:57→20:09)
[2020-01-19] MEDS: INSULIN ASPART 100 UNITS/ML 3 ML PEN SC SCH ×4 (09:09→20:44)
[2020-01-19] MEDS: INSULIN DETEMIR FLEXPEN/FLEX TOUCH 100 UNITS/ML 3ML SQ SCH (20:44)
[2020-01-20] MEDS: LORazepam 1 MG/2 ML VIAL IV PRN (03:12)
[2020-01-20] MEDS: ceFAZolin 1000MG 1,000 MG/7.5 ML SYR IV SCH (06:19)
[2020-01-20 06:41] LABS: Albumin Level 2.6 gm/dl (3.4-5.0); BUN Creatinine Ratio 30.7 (10-20); Calcium 9.2 mg/dl (8.5-10.1); Creatinine Clr Calc Pharmacy 124.1 ml/min; Est GFR (African American) 113.1; Est GFR (Non-African American) 97.6; Magnesium 1.7 mg/dl (1.8-2.4); Potassium 3.8 mmol/L (3.5-5.1)
[2020-01-20 06:44] LABS: Albumin Globulin Ratio 0.6 (0.9-2); Bilirubin,Total 0.6 mg/dl (0.2-1); Globulin 4.6 gm/dl (2.5-4.0); Total Protein 7.2 gm/dl (6.4-8.2)
[2020-01-20] MEDS: INSULIN ASPART 100 UNITS/ML 3 ML PEN SC SCH ×4 (09:40→20:39)
[2020-01-20] MEDS: ASPIRIN 81 MG ECTAB PO SCH (09:41)
[2020-01-20] MEDS: FUROSEMIDE 20 MG in SYRINGE 0 ML IV SCH ×3 (09:42→20:20)
[2020-01-20] MEDS: VENLAFAXINE HCL XR 150 MG CAPXR PO SCH (09:42)
[2020-01-20] MEDS: FOLIC ACID 1 MG TAB PO SCH (09:42)
[2020-01-20] MEDS: ATORVASTATIN 40 MG TAB PO SCH (09:42)
[2020-01-20] MEDS: MULTIVITAMIN TAB PO SCH (09:43)
[2020-01-20] MEDS: MAGNESIUM OXIDE 400 MG TAB PO SCH ×2 (09:43→20:20)
[2020-01-20] MEDS: ENOXAPARIN INJ 40 MG/0.4 ML SYR SQ SCH (09:43)
[2020-01-20] MEDS: BUPRENORPHINE/NALOXONE 8/2 MG TAB SL SCH ×2 (09:44→20:35)
[2020-01-20] MEDS: NICOTINE 21 MG/24 HR TDSY TD SCH (09:44)
[2020-01-20] MEDS: CLOPIDOGREL BISULFATE 75 MG TAB PO SCH (09:44)
[2020-01-20] MEDS: FAMOTIDINE 20 MG TAB PO SCH (09:44)
[2020-01-20] MEDS: GABAPENTIN 100 MG CAP PO SCH ×3 (09:44→20:21)
[2020-01-20] MEDS: lisinopril 40 MG TAB PO SCH (09:45)
[2020-01-20] MEDS: METOPROLOL SUCC 50MG EXT REL TAB PO SCH (09:45)
[2020-01-20] MEDS: THIAMINE HCL 100 MG TAB PO SCH (09:45)
[2020-01-20] MEDS: allopurinoL 100 MG TAB PO SCH (09:46)
[2020-01-20] MEDS: chlordiazePOXIDE HCl 5 MG CAP PO SCH ×2 (09:46→21:51)
[2020-01-20] MEDS: MAGNESIUM SULFATE / D5W 1 GM/100 ML BAG IV SCH ×2 (10:34→12:07)
--- NOTE | 2020-01-20 10:37 | Hospitalist Progress Note ---
Date of Service January 20, 2020 Assessment & Plan (1) Bilateral edema of lower extremity: Bilateral leg cellulitis, erysipelas Elevated Uric Acid Bilateral lower extremity edema could be from acute diastolic congestive heart failure -As per ED notes on 01/16/2020 that "Patient is a 54-year-old male with a past medical history of alcohol abuse who presents to the ER for swelling of the legs and shortness of breath which has been worsening for the past 3.5 weeks. He notes the swelling has been gradually getting worse." as per admission note that patient "has been complaining of bilateral leg swelling for a while, Worse for the last 2 weeks with increasing pain and tenderness and redness" -There is no evidence of pulmonary embolus in the main, lobar, or segmental pulmonary arteries on chest CTA 01/16/2020. No DVT within the right or left lower extremity based on 01/16/2020 -patient was started on cefazolin q8 hours, continue. A blood culture to be obtained on 01/17/2020 -Patient initially given IV Lasix. echocardiogram performed on 01/17/2020 with normal ejection fraction of 60 to 65%, elevated BNP on 01/17/2020 -01/18/2020: continue Lasix as 20 mg IV TID to continue to decrease the leg edema; continue diet with fluid restriction to 1800 ml daily -prn Benadryl for pruritus, uric acid level are elevated as 9.5 on 01/17/2020, no history of gout, can start allopurinol empirically on 01/18/2020 prevent gout tophi -TSH normal -01/19/2020: Patient making good urine output while on IV Lasix and fluid restriction. Patient using the incentive spirometer. Discussed with patient about continue the IV Lasix and other health issues. Patient to have the suppl ementary oxygen titrated down by nursing as tolerated. continue IV cefazolin for now. The legs are less red but still have edema -01/20/2020: Patient seen and examined when oxygen off the nose. Will continue to monitor oxygen saturation. Patient's lungs remain clear. His legs continue to have bilateral lower extremity edema with tight turgor of the skin. He is advised to keep legs elevated when at rest and to ambulate with physical therapy. continue Lasix IV 20 mg TID. antibiotics switched from cefazolin q8 hours to ceftriaxone daily (2) Alcohol abuse: -Patient reports regular daily use of vodka at home -He reports he was in alcohol rehab in the past -He currently lives in an RV -case technician consultation (3) Alcohol withdrawal syndrome without complication: -patient was initially started on gabapentin alcohol withdrawal protocol -On exam on 01/17/2020, patient with tremors of the upper extremities and high blood pressure. Patient switched from gabapentin alcohol withdrawal protocol to Librium alcohol withdrawal protocol. The Librium may need to be titrated based on symptoms. -also prn IV ativan if agitation -additional banana bag ordered for 01/17/2020, continue daily thiamine and daily folic acid -serum albumin 2.8 on 01/17/2020, firer low pressure consult following with BOOST supplements -as of 01/20/2020, patient appear to be well treated for the alcohol withdrawal symptoms, no tremors on exam (4) HTN (hypertension): -Continue home dose lisinopril 40 mg daily and metoprolol succinate 50 mg daily -adjust diuretics as needed based on volume status (5) Hypomagnesemia: -serum magnesium 1.6 on 01/17/2020, may have been due to initial IV Lasix, given IV and oral magnesium -serum magnesium at goal on 01/18/2020, continue oral magnesium -serum magnesium 1.7 on 01/20/2020, IV magnesium ordered, increase oral magnesium from daily to BID (6) CAD (coronary artery disease): History of myocardial infraction in the past with stent -continue aspirin and clopidogral daily -on atorvastatin 40 mg daily, creatinine kinase normal (7) Type 2 diabetes mellitus: 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 continue gabapentin as 100 mg TID for now (8) Tobacco use disorder: Emphysema -Has been smoking about 1/[address] scan did show emphysema and has COPD -Not listed in EPIC Nebulizers and inhalers as needed -smoking cessation advised, Continue with nicotine patch -CXR on 01/18/2020 continues to show clear lung santoro, titrate down the supplementary oxygen requirements as needed Chronic Back Pain -on buprenorphine-naloxone (suboxone) BID, patient reports the indication for this medication as outpatient for back pain, not for any drug substance abuse -PT/OT evaluations (9) Mood disorder: -Continue antidepressant Effexor 150 mg daily DVT Prophylaxis: Lovenox 40 mg subcutaneous daily Admission and Anticipated Discharge Date Admission Date: January 16, 2020 Subjective as of 01/20/2020, patient appear to be well treated for the alcohol withdrawal symptoms, no tremors on exam. Patient seen and examined when oxygen off the nose. Will continue to monitor oxygen saturation. Patient's lungs remain clear. His legs continue to have bilateral lower extremity edema with tight turgor of the skin. He is advised to keep legs elevated when at rest and to ambulate with physical therapy. no chest pain. no abdomen pain. no headache. no nausea. no vomiting. patient denies other symptoms Review of Systems Review of Systems: All systems reviewed & are unremarkable except as noted in Subjective Physical Exam Constitutional: + obese Eyes: PERRL, conjunctivae normal, anicteric sclerae EOM intact bilaterally ENMT: external ear and nose normal, oropharynx normal Neck: trachea midline, no thyromegaly normal visual inspection Respiratory: normal respiratory effort, lungs clear to auscultation Cardiovascular: Rate/Rhythm: regular rate and regular rhythm Gastrointestinal (Abdomen): normal bowel sounds, soft, nontender, no hepatosplenomegaly Musculoskeletal: Head/Neck/Chest: normocephalic and head atraumatic Extremities: + lower leg abnormality (bilateral lower extremity edema) Neurologic: PERRL, EOMI, accommodation nl, no face palsy, no dysarthria CN's II-XI intact bilaterally and moves all extremities Psychiatric: A+Ox3, euthymic affect Results & Data Results & Data ([facility]) Vital Signs (Past 12 Hours) Vital Signs Temp Pulse Pulse Resp BP BP Pulse Ox 01/20/20 08:00 78 96 01/20/20 07:27 36.4 C L 77 18 149/79 H 88 L 01/20/20 06:02 79 172/83 H 92 01/20/20 02:46 36.8 C 71 20 176/97 H 92 01/19/20 23:52 75
[2020-01-20] MEDS ORDERED: GABAPENTIN 600 MG TAB PO SCH (12:00)
[2020-01-20] MEDS: cefTRIAXone SODIUM 2,000 MG in DEXTROSE 5% 50 ML IV SCH (14:34)
[2020-01-20] MEDS: INSULIN DETEMIR FLEXPEN/FLEX TOUCH 100 UNITS/ML 3ML SQ SCH (20:39)
[2020-01-20] MEDS: traZODone HCL 50 MG TAB PO PRN (21:51)
[2020-01-21] MEDS: FUROSEMIDE 20 MG in SYRINGE 0 ML IV SCH ×3 (08:08→20:02)
[2020-01-21] MEDS: ATORVASTATIN 40 MG TAB PO SCH (08:08)
[2020-01-21] MEDS: VENLAFAXINE HCL XR 150 MG CAPXR PO SCH (08:08)
[2020-01-21] MEDS: ENOXAPARIN INJ 40 MG/0.4 ML SYR SQ SCH (08:08)
[2020-01-21] MEDS: FOLIC ACID 1 MG TAB PO SCH (08:08)
[2020-01-21] MEDS: ASPIRIN 81 MG ECTAB PO SCH (08:08)
[2020-01-21] MEDS: GABAPENTIN 100 MG CAP PO SCH ×3 (08:09→20:03)
[2020-01-21] MEDS: MULTIVITAMIN TAB PO SCH (08:09)
[2020-01-21] MEDS: NICOTINE 21 MG/24 HR TDSY TD SCH (08:09)
[2020-01-21] MEDS: MAGNESIUM OXIDE 400 MG TAB PO SCH ×2 (08:09→20:03)
[2020-01-21] MEDS: CLOPIDOGREL BISULFATE 75 MG TAB PO SCH (08:09)
[2020-01-21] MEDS: FAMOTIDINE 20 MG TAB PO SCH (08:09)
[2020-01-21] MEDS: METOPROLOL SUCC 50MG EXT REL TAB PO SCH (08:10)
[2020-01-21] MEDS: lisinopril 40 MG TAB PO SCH (08:10)
[2020-01-21] MEDS: allopurinoL 100 MG TAB PO SCH (08:10)
[2020-01-21] MEDS: THIAMINE HCL 100 MG TAB PO SCH (08:10)
--- NOTE | 2020-01-21 08:12 | Hospitalist Progress Note ---
Date of Service January 21, 2020 Assessment & Plan (1) Bilateral edema of lower extremity: Bilateral leg cellulitis, erysipelas Elevated Uric Acid Bilateral lower extremity edema could be from acute diastolic congestive heart failure -As per ED notes on 01/16/2020 that "Patient is a 54-year-old male with a past medical history of alcohol abuse who presents to the ER for swelling of the legs and shortness of breath which has been worsening for the past 3.5 weeks. He notes the swelling has been gradually getting worse." as per admission note that patient "has been complaining of bilateral leg swelling for a while, Worse for the last 2 weeks with increasing pain and tenderness and redness" -There is no evidence of pulmonary embolus in the main, lobar, or segmental pulmonary arteries on chest CTA 01/16/2020. No DVT within the right or left lower extremity based on 01/16/2020 -patient was started on cefazolin q8 hours, continue. A blood culture to be obtained on 01/17/2020 -Patient initially given IV Lasix. echocardiogram performed on 01/17/2020 with normal ejection fraction of 60 to 65%, elevated BNP on 01/17/2020 -01/18/2020: continue Lasix as 20 mg IV TID to continue to decrease the leg edema; continue diet with fluid restriction to 1800 ml daily -prn Benadryl for pruritus, uric acid level are elevated as 9.5 on 01/17/2020, no history of gout, can start allopurinol empirically on 01/18/2020 prevent gout tophi -TSH normal -01/19/2020: Patient making good urine output while on IV Lasix and fluid restriction. Patient using the incentive spirometer. Discussed with patient about continue the IV Lasix and other health issues. Patient to have the suppl ementary oxygen titrated down by nursing as tolerated. continue IV cefazolin for now. The legs are less red but still have edema -01/20/2020: Patient seen and examined when oxygen off the nose. Will continue to monitor oxygen saturation. Patient's lungs remain clear. His legs continue to have bilateral lower extremity edema with tight turgor of the skin. He is advised to keep legs elevated when at rest and to ambulate with physical therapy. continue Lasix IV 20 mg TID. antibiotics switched from cefazolin q8 hours to ceftriaxone daily 01/21/2020: Patient continues to be diuresing well on the IV Lasix. His body weight on 01/21/2020 is 117.6 kg compared to initial hospitalization weight of 123.9 kg but there is still pitting edema of bilateral lower extremities. Patient reports he feels good knowing that he has gotten rid of so much water weight and he is to continue the hospitalization with the IV Lasix. He reports he does not feel any need to go and stay at alcohol rehab center. His plans are to go to alcohol counseling meetings. Patient does not have any current tremors and does not not appear to be at acute risk of alcohol withdrawal symptoms at this time. Patient denies other symptoms such as shortness of breath but periodically wears the nasal cannula oxygen. Patient's lungs are clear. No abdomen pain. No dizziness. No headache. No nausea. No vomiting. No other symptoms (2) Alcohol abuse: -Patient reports regular daily use of vodka at home -He reports he was in alcohol rehab in the past -He currently lives in an -continuous pillowcase cutter consultation (3) Alcohol withdrawal syndrome without complication: -patient was initially started on gabapentin alcohol withdrawal protocol -On exam on 01/17/2020, patient with tremors of the upper extremities and high blood pressure. Patient switched from gabapentin alcohol withdrawal protocol to Librium alcohol withdrawal protocol. -also prn IV ativan if agitation -additional banana bag ordered for 01/17/2020, continue daily thiamine and daily folic acid -serum albumin 2.8 on 01/17/2020, swimming pool maintenance consult following with BOOST supplements -as of 01/20/2020, patient appear to be well treated for the alcohol withdrawal symptoms, no tremors on exam (4) HTN (hypertension): -Continue home dose lisinopril 40 mg daily and metoprolol succinate 50 mg daily -adjust diuretics as needed based on volume status (5) Hypomagnesemia: -serum magnesium 1.6 on 01/17/2020, may have been due to initial IV Lasix, given IV and oral magnesium -serum magnesium at goal on 01/18/2020, continue oral magnesium -serum magnesium 1.7 on 01/20/2020, IV magnesium ordered, increase oral magnesium from daily to BID -follow the labs while on IV Lasix (6) CAD (coronary artery disease): History of myocardial infraction in the past with stent -continue aspirin and clopidogral daily -on atorvastatin 40 mg daily, creatinine kinase normal (7) Type 2 diabetes mellitus: Type 2 diabetes mellitus with skilled nursing current use of insulin with neuropathy -HbA1c 8.3 -give insulin, check blood sugar -patient reports that since alcohol rehabilitation stay in August, he was not given gabapentin there and in the past took gabapentin for history of neuropathy. continue gabapentin as 100 mg TID for now (8) Tobacco use disorder: Emphysema -Has been smoking about 1/[address] scan did show emphysema and has COPD -Not listed in EPIC Nebulizers and inhalers as needed -smoking cessation advised, Continue with nicotine patch -CXR on 01/18/2020 continues to show clear lung santoro, titrate down the supplementary oxygen requirements as needed Chronic Back Pain -on buprenorphine-naloxone (suboxone) BID, patient reports the indication for this medication as outpatient for back pain, not for any drug substance abuse -PT/OT evaluations (9) Mood disorder: -Continue antidepressant Effexor 150 mg daily DVT Prophylaxis: Lovenox 40 mg subcutaneous daily Admission and Anticipated Discharge Date Admission Date: January 16, 2020 Subjective 01/21/2020: Patient continues to be diuresing well on the IV Lasix. His body weight on 01/21/2020 is 117.6 kg compared to initial hospitalization weight of 123.9 kg but there is still pitting edema of bilateral lower extremities. Patient reports he feels good knowing that he has gotten rid of so much water weight and he is to continue the hospitalization with the IV Lasix. He reports he does not feel any need to go and stay at alcohol rehab center. His plans are to go to alcohol counseling meetings. Patient does not have any current tremors and does not not appear to be at acute risk of alcohol withdrawal symptoms at this time. Patient denies other symptoms such as shortness of breath but periodically wears the nasal cannula oxygen. Patient's lungs are clear. No abdomen pain. No dizziness. No headache. No nausea. No vomiting. No other symptoms Review of Systems Review of Systems: All systems reviewed & are unremarkable except as noted in Subjective Physical Exam Constitutional: + obese Eyes: PERRL, conjunctivae normal, anicteric sclerae EOM intact bilaterally ENMT: external ear and nose normal, oropharynx normal Neck: trachea midline, no thyromegaly normal visual inspection Respiratory: normal respiratory effort, lungs clear to auscultation Cardiovascular: Rate/Rhythm: regular rate and regular rhythm Gastrointestinal (Abdomen): normal bowel sounds, soft, nontender, no hepatosplenomegaly Musculoskeletal: Head/Neck/Chest: normocephalic and head atraumatic Extremities: + lower leg abnormality (bilateral lower extremity edema) Skin: no rashes, warm and dry Neurologic: PERRL, EOMI, accommodation nl, no face palsy, no dysarthria CN's II-XI intact bilaterally and moves all extremities Psychiatric: A+Ox3, euthymic affect Results & Data Results & Data ([facility]) Vital Signs (Past 12 Hours) Vital Signs Temp Pulse Pulse Pulse Resp BP Pulse Ox 01/21/20 07:47 36.6 C 71 18 157/92 H 96 01/21/20 07:08 73 01/21/20 03:27 36.6 C 67 18 150/92 H 94 01/20/20 22:20 71 01/20/20 22:16 36.5 C 71 16 181/95 H 95 01/20/20 20:15 167/96 H
[2020-01-21] MEDS: BUPRENORPHINE/NALOXONE 8/2 MG TAB SL SCH ×2 (08:16→20:03)
[2020-01-21] MEDS: INSULIN ASPART 100 UNITS/ML 3 ML PEN SC SCH ×4 (08:20→20:04)
[2020-01-21 09:01] LABS: BUN Creatinine Ratio 30.2 (10-20); Creatinine Clr Calc Pharmacy 106.7 ml/min; Est GFR (Non-African American) 85.4; Magnesium 1.9 mg/dl (1.8-2.4); Potassium 4.1 mmol/L (3.5-5.1)
[2020-01-21] MEDS: cefTRIAXone SODIUM 2,000 MG in DEXTROSE 5% 50 ML IV SCH (13:59)
[2020-01-21] MEDS: cloNIDine HCL 0.1 MG TAB PO PRN (19:56)
[2020-01-21] MEDS: LORazepam 1 MG/2 ML VIAL IV PRN (19:56)
[2020-01-21] MEDS: INSULIN DETEMIR FLEXPEN/FLEX TOUCH 100 UNITS/ML 3ML SQ SCH (20:03)
[2020-01-21] MEDS: traZODone HCL 50 MG TAB PO PRN (23:39)
[2020-01-22] MEDS: ASPIRIN 81 MG ECTAB PO SCH (08:57)
[2020-01-22] MEDS: FUROSEMIDE 20 MG in SYRINGE 0 ML IV SCH ×2 (08:57→13:16)
[2020-01-22] MEDS: FOLIC ACID 1 MG TAB PO SCH (08:57)
[2020-01-22] MEDS: VENLAFAXINE HCL XR 150 MG CAPXR PO SCH (08:57)
[2020-01-22] MEDS: MULTIVITAMIN TAB PO SCH (08:58)
[2020-01-22] MEDS: MAGNESIUM OXIDE 400 MG TAB PO SCH ×2 (08:58→20:36)
[2020-01-22] MEDS: ATORVASTATIN 40 MG TAB PO SCH (08:58)
[2020-01-22] MEDS: GABAPENTIN 100 MG CAP PO SCH ×2 (08:58→13:16)
[2020-01-22] MEDS: ENOXAPARIN INJ 40 MG/0.4 ML SYR SQ SCH (08:58)
[2020-01-22] MEDS: NICOTINE 21 MG/24 HR TDSY TD SCH (08:59)
[2020-01-22] MEDS: METOPROLOL SUCC 50MG EXT REL TAB PO SCH (08:59)
[2020-01-22] MEDS: CLOPIDOGREL BISULFATE 75 MG TAB PO SCH (08:59)
[2020-01-22] MEDS: THIAMINE HCL 100 MG TAB PO SCH (08:59)
[2020-01-22] MEDS: FAMOTIDINE 20 MG TAB PO SCH (08:59)
[2020-01-22] MEDS: BUPRENORPHINE/NALOXONE 8/2 MG TAB SL SCH ×2 (08:59→20:35)
[2020-01-22] MEDS: lisinopril 40 MG TAB PO SCH (09:00)
[2020-01-22] MEDS: allopurinoL 100 MG TAB PO SCH (09:00)
[2020-01-22] MEDS: INSULIN ASPART 100 UNITS/ML 3 ML PEN SC SCH ×4 (09:08→20:38)
[2020-01-22] MEDS: LORazepam 1 MG/2 ML VIAL IV PRN ×3 (10:52→21:11)
[2020-01-22] MEDS ORDERED: PHARMACY GLYCEMIC MGMT CONSULT PRN (12:42)
[2020-01-22] MEDS ORDERED: INSULIN DETEMIR FLEXPEN/FLEX TOUCH 100 UNITS/ML 3ML SQ ONE (13:00)
--- NOTE | 2020-01-22 13:12 | Pharmacy Report ---
Pharmacy Glycemic Short Note 2 - Date of Service January 22, 2020 - Glycemic Short BSG Results (Last 24 hours): 01/21/20 01/21/20 01/22/20 16:10 19:55 07:32 POC Glucose 125 H 283 H 341 H* 01/22/20 01/22/20 01/22/20 07:32 11:24 11:25 POC Glucose 317 H* 339 H* 348 H* OUTPATIENT ANTIDIABETIC REGIMEN: * Levemir 40 units SQ HS + Aspart per SS * A1c = 8.3% (01/17/20) ASSESSMENT: * Dewayne is a 54 yr old T2DM male admitted with b/l lower extremity edema in the setting of cellulitis. * He has been maintained on his home regimen of Levemir 40 units qHS plus novolog sliding scale with decent glycemic control until yesterday. Majority of BSGs were elevated yesterday with the highest BSG of 283 mg/dL at bedtime. This trend continued today with severe hyperglycemia at both breakfast and lunch. Unknown reason for hyperglycemia (no major change to medications, no steroids, etc). Patient was started on Boost recently, however RN reports he drinks it with meals and the carbs are being covered. * Changes needed to insulin regimen: * I will order a one time dose of IV regular insulin and repeat BSG 2 hours after administration. * I will give an additional dose of 15 units of Levemir x 1 now since fasting has been > 200 mg/dL x 2 days (18% increase). Will change to BID dosing incase Levemir effect is not lasting the full 24 hours for this patient. * Tighten Novolog CF and CR (based on estimated need of 100 units/day). May need loosened in near future. PLAN FOR INPATIENT GLYCEMIC CONTROL: * Basal insulin * Lantus 15 units SQ x 1 now * Continue Lantus 40 units SQ qHS today, then transition to BID dosing on 11/5 AM * Bolus insulin * NovoLog per scale ACHS or Q6hrs while NPO * Goal Range: Low 110 mg/dL - High 140 mg/dL * Correction Factor: 15 mg/dL/unit * Nutritional / Prandial insulin per carb ratio of 1 unit per 5 grams CHO consumed PLAN FOR DISCHARGE: * uncertain at this time
[2020-01-22] MEDS ORDERED: INSULIN HUMAN REGULAR PER UNIT 8 UNITS in SYRINGE 7.92 ML IV ONE (13:15)
[2020-01-22] MEDS: cefTRIAXone SODIUM 2,000 MG in DEXTROSE 5% 50 ML IV SCH (13:16)
--- NOTE | 2020-01-22 15:15 | Hospitalist Progress Note ---
Date of Service January 22, 2020 Assessment & Plan (1) Bilateral edema of lower extremity: Resolved with IV diuretics. Pt reported whole body swelling and reports on initial notes indicate there was SOB with exertion. This appears most consistent with an acute diastolic heart failure, which is now compensated after intravenous diuretics. Also, the differential includes but is not limited to hypoalbuminemia and recent change of diuretic therapies in Oct 2019 by PCP (at this time chlorthalidone 25mg daily, spironolactone 12.5mg daily and gabapentin 800 QID was stopped. He was placed on Lasix 20mg PO daily 12/23 which was the fill date at [facility].) This patient is a diabetic smoker with a h/o CAD s/p stent placement with a mild ischemic cardiomyopathy in the past. Recent echo this admission reveals a normalization of EF and no valvulopathy or other wall motion abnormalities present. There is no further erythema concerning for infection after a course of antibiotics. I would also defer initiation of allopurinol to the outpatient setting if gout is a definitive diagnosis. (2) CAD (coronary artery disease): Increased outpatient angina reported. No evidence of ACS this admission. Mildly elevated troponin without rise around 01/16 when he was first admitted without EKG changes. No active chest pain at this time. Cont medical management of CAD with ASA, Plavix, Lipitor 40, Toprol XL 50mg, lisinopril 40mg daily. Encourage to quit smoking. (3) Alcohol abuse: He has a h/o polysubstance abuse s/p inpatient alcohol rehabilitation, but is still wanting to quit. He is having difficulty with virtual communications with his sponsor/meetings during this COVID-19 pandemic. (4) Alcohol withdrawal syndrome without complication: Still with some slight tremors, but he is hemodynamically stable and mentating well. Cont supportive care with PRN Ativan. (5) HTN (hypertension): Currently controlled on home medications including lisinopril 40 mg daily and metoprolol succinate 50 mg daily (6) Hypomagnesemia: resolved with replacement. (7) Type 2 diabetes mellitus: uncontrolled at baseline. He did have some hyperglycemia today despite basal bolus coverage with insulin. Pharmacy consult requested and this came back down into range. (8) Tobacco use disorder: Encouraged strongly to quit smoking as this is bad for his health. Cont Nicoderm patch to help with this. (9) Mood disorder: stable, cont Effexor per home regimen. (10) Chronic pain syndrome: cont Suboxone per home regimen. (11) DVT prophylaxis: Lovenox Full Code Dispo--cont hospitalization overnight in order to ensure stability off the IV Lasix, watch lytes in am, ensure glucose has stabilized and to peripherally discuss this outpatient angina issue with Cardiology. D/C telemetry. Sara Morris DO [facility] Hospitalist. Admission and Anticipated Discharge Date Admission Date: January 16, 2020 Subjective feels better than admission very excited that his edema is resolved on his legs. 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 Still slightly shaky from alcohol withdrawal but hemodynamics are stable. Review of Systems Review of Systems: All systems reviewed & are unremarkable except as noted in Subjective Physical Exam Physical Exam: CONSTITUTIONAL: WNWD, vitals as above, generally well-appea ring EYES: pupils are round and equal bilaterally, normal conjunctivae, no scleral icterus ENT: external ear and nose normal, oropharynx clear, MMM RESPIRATORY: clear to auscultation bilaterally, no crackles, rales or wheezes, normal respiratory effort CARDIOVASCULAR: regular rate and rhythm, S1 and 2 heard without murmurs, gallops or rubs, no JVD, no peripheral edema GASTROINTESTINAL: soft, nontender, nondistended, no guarding. MUSCULOSKELETAL: strength 5/5 throughout, head is normocephalic and atraumatic SKIN: warm and dry NEUROLOGIC: No facial palsy, no dysarthria. CN 2-12 grossly intact, normal cognition, normal speech, mild tremor, no gross focal neuro deficits. PSYCHIATRIC: alert cooperative and oriented to person, place and time. Euthymic mood, makes good eye contact, language grossly intact, recent and remote memory grossly intact. Results & Data Results & Data ([facility]) Vital Signs (Past 12 Hours) Vital Signs Temp Pulse Pulse Resp BP Pulse Ox 01/22/20 11:00 36.6 C 71 18 177/95 H 92 01/22/20 09:25 67 01/22/20 06:32 36.4 C L 65 18 139/88 93 01/22/20 03:20 36.6 C 68 16 157/91 H 91 Medications Administered Current Inpatient Medications Albuterol (Albuterol Hfa 8 Gm Inhaler) 2 puffs INH Q6R PRN PRN Reason: Wheezing Stop: 02/15/20 19:33 Albuterol (Albuterol 0.083% Nebu Soln 3 Ml Vial) 2.5 mg NEB Q6R PRN PRN Reason: Wheezing Stop: 02/15/20 19:33 Allopurinol (Allopurinol 100 Mg Tab) 200 mg PO DAILY [facility] Stop: 02/18/20 08:59 Last Admin: 01/22/20 09:00 Dose: 200 mg Documented by: Aspirin (Aspirin 81 Mg Ectab) 81 mg PO QAM [facility] Stop: 02/16/20 08:59 Last Admin: 01/22/20 08:57 Dose: 81 mg Documented by: Atorvastatin Calcium (Atorvastatin 40 Mg Tab) 40 mg PO QAM [facility] Stop: 02/16/20 08:59 Last Admin: 01/22/20 08:58 Dose: 40 mg Documented by: Buprenorphine/Naloxone (Buprenorphine/Naloxone 8/2 Mg Tab) 1 tab SL BID [facility] Stop: 02/16/20 08:59 Last Admin: 01/22/20 08:59 Dose: 1 tab Documented by: Clonidine HCl (Clonidine Hcl 0.1 Mg Tab) 0.1 mg PO Q4H PRN PRN Reason: Hypertension Stop: 02/19/20 22:42 Last Admin: 01/21/20 19:56 Dose: 0.1 mg Documented by: Clopidogrel Bisulfate (Clopidogrel Bisulfate 75 Mg Tab) 75 mg PO QAM [facility] Stop: 02/16/20 08:59 Last Admin: 01/22/20 08:59 Dose: 75 mg Documented by: Dextrose (Dextrose 50% 50 Ml Syringe) 25 - 50 ml IV UD PRN; Protocol PRN Reason: Hypoglycemia Protocol Stop: 02/15/20 21:59 Diphenhydramine HCl (Diphenhydramine Capsule 25 Mg Cap) 25 mg PO Q12 PRN PRN Reason: Itching Stop: 02/16/20 09:37 Enoxaparin Sodium (Enoxaparin Inj 40 Mg/0.4 Ml Syr) 40 mg SQ QAM [facility] Stop: 02/17/20 08:59 Last Admin: 01/22/20 08:58 Dose: 40 mg Documented by: Famotidine (Famotidine 20 Mg Tab) 20 mg PO QAM [facility] Stop: 02/16/20 13:14 Last Admin: 01/22/20 08:59 Dose: 20 mg Documented by: Folic Acid (Folic Acid 1 Mg Tab) 1 mg PO QAM [facility] Stop: 02/16/20 08:59 Last Admin: 01/22/20 08:57 Dose: 1 mg Documented by: Gabapentin (Gabapentin 100 Mg Cap) 100 mg PO TID [facility] Stop: 02/16/20 13:59 Last Admin: 01/22/20 13:16 Dose: 100 mg Documented by: Glucagon (Glucagon For Inj 1 Mg Vial) 1 mg IM UD PRN; Protocol PRN Reason: Hypoglycemia Protocol Stop: 02/15/20 21:59 Glucose (Glucose 40% Gel 15 Gm Tube) 15 - 30 gm PO UD PRN; Protocol PRN Reason: Hypoglycemia Protocol Stop: 02/15/20 21:59 Glucose (Glucose 10 Tabs/Tube) 4 - 8 tabs PO UD PRN; Protocol PRN Reason: Hypoglycemia Protocol Stop: 02/15/20 21:59 Lorazepam (Ativan) 1 mg in 2 mls @ 2 mls/min IV ONE PRN; Protocol PRN Reason: EtoH Withdrawal AWSS 6-10 Stop: 02/15/20 19:14 Last Admin: 01/22/20 10:52 Dose: 2 mls/min Documented by: Lorazepam (Ativan) 2 mg in 4 mls @ 4 mls/min IV Q6H PRN PRN Reason: Agitation Stop: 02/16/20 09:36 Last Admin: 01/19/20 07:43 Dose: 4 mls/min Documented by: Furosemide 20 mg/ Syringe 2 mls @ 4 mls/min IV TID [facility] Stop: 02/17/20 15:59 Last Admin: 01/22/20 13:16 Dose: 4 mls/min Documented by: Ceftriaxone Sodium 2,000 mg/ (Dextrose) 50 mls @ 100 mls/hr IV Q24H [facility]; Protocol Stop: 01/27/20 13:59 Last Infusion: 01/22/20 13:46 Dose: Infused Documented by: Insulin Aspart (Insulin Aspart 100 Units/Ml 3 Ml Pen) 0 units SC ACHS [facility] Stop: 02/15/20 21:59 Last Admin: 01/22/20 12:27 Dose: 17 units Documented by: Insulin Detemir (Insulin Detemir Flexpen/Flex Touch 100 Units/Ml 3ml) 40 units SQ HS [facility] Stop: 01/22/20 23:59 Last Admin: 01/21/20 20:03 Dose: 40 units Documented by: Lisinopril (Lisinopril 40 Mg Tab) 40 mg PO QAM [facility] Stop: 02/16/20 08:59 Last Admin: 01/22/20 09:00 Dose: 40 mg Documented by: Magnesium Oxide (Magnesium Oxide 400 Mg Tab) 400 mg PO BID [facility] Stop: 02/19/20 20:59 Last Admin: 01/22/20 08:58 Dose: 400 mg Documented by: Metoprolol Succinate (Metoprolol Succ 50mg Ext Rel Tab) 50 mg PO QAM [facility] Stop: 02/16/20 08:59 Last Admin: 01/22/20 08:59 Dose: 50 mg Documented by: Miscellaneous (Remove Nicoderm Patch) 1 ea N/A DAILY@0859 [facility] Stop: 02/16/20 08:58 Last Admin: 01/22/20 09:01 Dose: 1 ea Documented by: Miscellaneous (Carbohydrates For Hypoglycemia ) 15 - 30 gm PO UD PRN PRN Reason: Hypoglycemia Treatment Stop: 02/15/20 21:59 Miscellaneous Information (Pharmacy Glycemic Mgmt Consult) 1 ea N/A UD PRN PRN Reason: Consult Stop: 02/21/20 12:41 Multivitamins (Multivitamin Tab) 1 tab PO QAM [facility] Stop: 02/15/20 16:29 Last Admin: 01/22/20 08:58 Dose: 1 tab Documented by: Nicotine (Nicotine 21 Mg/24 Hr Tdsy) 21 mg TD QAM [facility] Stop: 02/15/20 16:29 Last Admin: 01/22/20 08:59 Dose: 21 mg Documented by: Thiamine HCl (Thiamine Hcl 100 Mg Tab) 100 mg PO QAM [facility] Stop: 02/16/20 08:59 Last Admin: 01/22/20 08:59 Dose: 100 mg Documented by: Trazodone HCl (Trazodone Hcl 50 Mg Tab) 50 mg PO HS PRN PRN Reason: Insomnia Stop: 02/15/20 21:39 Last Admin: 01/21/20 23:39 Dose: 50 mg Documented by: Venlafaxine HCl (Venlafaxine Hcl Xr 150 Mg Capxr) [facility] [place]: 02/16/20 08:59 Last Admin: 01/22/20 08:57 Dose: 150 mg Documented by:
[2020-01-22] MEDS ORDERED: LORazepam 0.5 MG TAB PO STA (18:26)
[2020-01-22] MEDS: cloNIDine HCL 0.1 MG TAB PO PRN (19:32)
[2020-01-22] MEDS: GABAPENTIN 600 MG TAB PO SCH (20:35)
[2020-01-22] MEDS ORDERED: INSULIN DETEMIR FLEXPEN/FLEX TOUCH 100 UNITS/ML 3ML SQ SCH (21:00)
[2020-01-23] MEDS: traZODone HCL 50 MG TAB PO PRN (01:15)
[2020-01-23 07:20] LABS: BUN Creatinine Ratio 28.2 (10-20); Calcium 9.1 mg/dl (8.5-10.1); Creatinine Clr Calc Pharmacy 91.3 ml/min; Est GFR (African American) 82.6; Est GFR (Non-African American) 71.2; Magnesium 1.9 mg/dl (1.8-2.4)
[2020-01-23] MEDS: METOPROLOL SUCC 50MG EXT REL TAB PO SCH (07:36)
[2020-01-23] MEDS: ASPIRIN 81 MG ECTAB PO SCH (07:36)
[2020-01-23] MEDS: MULTIVITAMIN TAB PO SCH (07:36)
[2020-01-23] MEDS: GABAPENTIN 600 MG TAB PO SCH ×4 (07:36→20:39)
[2020-01-23] MEDS: VENLAFAXINE HCL XR 150 MG CAPXR PO SCH (07:36)
[2020-01-23] MEDS: ATORVASTATIN 40 MG TAB PO SCH (07:37)
[2020-01-23] MEDS: lisinopril 40 MG TAB PO SCH (07:37)
[2020-01-23] MEDS: FOLIC ACID 1 MG TAB PO SCH (07:37)
[2020-01-23] MEDS: FAMOTIDINE 20 MG TAB PO SCH (07:37)
[2020-01-23] MEDS: NICOTINE 21 MG/24 HR TDSY TD SCH (07:37)
[2020-01-23] MEDS: MAGNESIUM OXIDE 400 MG TAB PO SCH ×2 (07:37→20:40)
[2020-01-23] MEDS: THIAMINE HCL 100 MG TAB PO SCH (07:37)
[2020-01-23] MEDS: ENOXAPARIN INJ 40 MG/0.4 ML SYR SQ SCH (07:37)
[2020-01-23] MEDS: CLOPIDOGREL BISULFATE 75 MG TAB PO SCH (07:37)
[2020-01-23] MEDS: BUPRENORPHINE/NALOXONE 8/2 MG TAB SL SCH ×2 (07:41→20:40)
[2020-01-23] MEDS: INSULIN ASPART 100 UNITS/ML 3 ML PEN SC SCH ×4 (07:59→20:41)
[2020-01-23] MEDS ORDERED: INSULIN DETEMIR FLEXPEN/FLEX TOUCH 100 UNITS/ML 3ML SQ SCH (09:00)
[2020-01-23] MEDS ORDERED: FUROSEMIDE 20 MG TAB PO SCH (09:00)
--- NOTE | 2020-01-23 11:37 | Pharmacy Report ---
Pharmacy Glycemic Short Note 2 - Date of Service January 23, 2020 - Glycemic Short BSG Results (Last 24 hours): 01/22/20 01/22/20 01/22/20 14:55 16:43 19:55 Glucose POC Glucose 93 106 H 227 H 01/23/20 01/23/20 05:57 07:43 Glucose 250 H POC Glucose 277 H OUTPATIENT ANTIDIABETIC REGIMEN: * Levemir 40 units SQ HS + Aspart per SS * A1c = 8.3% (01/17/20) ASSESSMENT: 01/23/20: * Pt has received 97 units of SQ insulin over the past 24 hrs * 47 units of basal insulin with Lantus * 50 units of bolus insulin with NovoLog * Plus a one time IV bolus of 8 units IV regular insulin * BSGs still elevated above 180 mg/dl * Unknown reason for hyperglycemia (no major change to medications, no steroids, etc). Therefore will continue to titrate insulin cautiously. * Continue BID Levemir dosing as it appears it is not lasting 24 hrs for this patient and it is typically dosed BID based on its duration of action. * Increase dosing based on BSG for more accurate titration * Darrian tighten NovoLog parameters based on elevated post-prandial BSGs 01/22/20 * Dewayne is a 54 yr old T2DM male admitted with b/l lower extremity edema in the setting of cellulitis. * He has been maintained on his home regimen of Levemir 40 units qHS plus novolog sliding scale with decent glycemic control until yesterday. Majority of BSGs were elevated yesterday with the highest BSG of 283 mg/dL at bedtime. This trend continued today with severe hyperglycemia at both breakfast and lunch. Unknown reason for hyperglycemia (no major change to medications, no steroids, etc). Patient was started on Boost recently, however RN reports he drinks it with meals and the carbs are being covered. * Changes needed to insulin regimen: * I will order a one time dose of IV regular insulin and repeat BSG 2 hours after administration. * I will give an additional dose of 15 units of Levemir x 1 now since fasting has been > 200 mg/dL x 2 days (18% increase). Will change to BID dosing incase Levemir effect is not lasting the full 24 hours for this patient. * Tighten Novolog CF and CR (based on estimated need of 100 units/day). May need loosened in near future. PLAN FOR INPATIENT GLYCEMIC CONTROL: * Basal insulin * Levemir 25 units SQ BID * Will change to BSG scale based dosing this evening * BSG <140 will give 20 units * BSG 140-180 will give 25 units * BSG >180 will give 30 units * Bolus insulin * NovoLog per scale ACHS or Q6hrs while NPO * Goal Range: Low 110 mg/dL - High 140 mg/dL * Correction Factor: 15 mg/dL/unit * Nutritional / Prandial insulin per carb ratio of 1 unit per 5 grams CHO consumed PLAN FOR DISCHARGE: * uncertain at this time
--- NOTE | 2020-01-23 12:08 | Cardiology Consultation ---
Date of Consultation January 23, 2020 Assessment & Plan (1) TONEY (dyspnea on exertion): (2) Anemia: (3) Bilateral edema of lower extremity: (4) Alcohol abuse: (5) Alcohol withdrawal syndrome without complication: (6) History of cardiac catheterization: (7) Ischemic cardiomyopathy: (8) Tobacco use disorder: Patient with significant dyspnea on exertion despite aggressive diuresis. Lower extremity edema improved but still significant. Echocardiogram shows normal LV systolic function. Given his ongoing symptoms I do believe an ischemic evaluation is warranted at this time and he will undergo dobutamine stress echocardiogram today. Further recommendations to follow. Patient declines inpatient rehab for alcohol abuse at this time. History of Present Illness Reason for Consultation: TONEY Requesting Physician: Dr. Morris Attending Physician: Sara Morris, History of Present Illness Mr. Jordan is a very pleasant 54-year-old gentleman who follows with me as an outpatient for his history of coronary artery disease and mild ischemic cardiomyopathy. [facility] with complaints of painful significant lower extremity edema. This is in the setting of recurrent alcohol abuse. He states he has been drinking pretty hard for the last 2 weeks and drinks more than 1/5 of vodka a day. After admission he has been diuresed and lower extremity edema has improved. He was found to have hypoalbuminemia likely secondary to alcoholism. Even after significant diuresis the patient's been noting dyspnea with exertion. He notes that prior to presentation he has not been ambulating much due to his leg pain. But now that he is been diuresed he gets short of breath after walking only a few steps. He denies any chest pain specifically denying his previous anginal equivalent. He denies any palpitations, lightheadedness, dizziness or syncope. He believes he is completed going through withdrawal at this point and his tremors have significantly improved. PAST MEDICAL HISTORY: 1. Coronary artery disease status post non ST segment elevation [place] receiving drug-eluting stent x1 to OM 1 2. Mild ischemic cardiomyopathy 3. History of polysubstance abuse status post inpatient alcohol rehab 4. Tobacco abuse ongoing 5. Diabetes Allergies Allergy/AdvReac Type Severity Reaction Status Date / Time No Known Allergies Allergy Verified 01/16/20 17:37 Home Medications Home Medications Medication Instructions Recorded Confirmed Type Levemir FlexTouch U-100 Insuln 40 unit SUBCUT HS 12/14/17 01/16/20 History insulin aspart U-100 [Novolog See Rx Instructions .ROUTE .COMPLEX 12/16/17 01/16/20 History Flexpen U-100 Insulin] trazodone 50 mg PO HS PRN 01/01/19 01/16/20 History aspirin [Ecotrin Low Strength] 81 mg PO QAM 08/26/19 01/16/20 History atorvastatin [Lipitor] 40 mg PO QAM 08/26/19 01/16/20 History clopidogrel [Plavix] 75 mg PO QAM 08/26/19 01/16/20 History lisinopril [Zestril] 40 mg PO QAM 08/26/19 01/16/20 History metoprolol succinate [Toprol XL] 50 mg PO QAM 08/26/19 01/16/20 History venlafaxine [Effexor XR] 150 mg PO QAM 08/26/19 01/16/20 History buprenorphine-naloxone 1 tab SUBLINGUAL BID 01/16/20 01/16/20 History folic acid 1 mg PO QAM 01/16/20 01/16/20 History furosemide 20 mg PO QAM 01/16/20 01/16/20 History gabapentin 600 mg PO QID 01/16/20 01/16/20 History Patient History Medical History (Updated 01/23/20 @ 13:19 by Dewayne Martinez DO) Alcohol use disorder HTN (hypertension) Mood disorder Neuropathy NSTEMI (non-ST elevated myocardial infarction) Obesity CATALINO (obstructive sleep apnea) Tobacco use disorder Type 2 diabetes mellitus Surgical History History of cardiac catheterization 1 ELIESER to proximal OM by Dr. Guerrero on 01/01/19 History of lymph node biopsy Family History Other Heart disease Social History Smoking Status: Current every day smoker Tobacco Type: Cigarettes Years Smoked: 39; Cigarettes Per Day: 30; Second Hand Exposure: Yes; Hx Alcohol Use: Yes Alcohol type: hard liquor Alcohol type Comment: Endorsing 3-5 beers intermittently over past few weeks. H/o heavy use Hx Substance Use: No Preferred Language: Nigerian Communication Ability: Effective Gas Load Dispatcher Required: No Beliefs That Will Affect Care: None marital status: Single Current Living Situation: Alone Current Living Situation Comment: in RV in friends driveway current occupational status: unemployed Other Information That Helps Us Care for You: No Feels Safe at Home: Yes Safety Concerns: Feels Safe At This Time Assistive Devices: None Review of Systems Review of Systems: All systems reviewed & are unremarkable except as noted in HPI & below Physical Exam Physical Exam: General: Awake, alert and oriented x 3. No acute distress. HEENT: Normocephalic, atraumatic. Pupils equal, round and reactive to light and accommodation. Extraocular muscles are intact. Anicteric sclera. Moist mucous membranes. Neck: No JVD. No bruit. Cardiovascular: Regular. Positive S-4. Normal S-1 and S-2. No S-3. No murmurs or rubs. Pulmonary: Clear to auscultation B/L. No rales, rhonchi or wheezing Abdomen: Bowel sounds x 4, soft. No rebound, guarding or tenderness. No organomegaly. Extremities: No clubbing, cyanosis. +2 bilateral lower extremity pitting edema. +2 pedal pulses bilaterally. Skin: Warm and dry. Results & Data ([facility]) Vital Signs (Past 12 Hours) Vital Signs Temp Pulse Resp BP Pulse Ox 01/23/20 07:35 36.4 C L 63 18 167/95 H 90 (1) Anemia Anemia type: unspecified type Qualified Code(s): D64.9 - Anemia, unspecified
[2020-01-23] MEDS ORDERED: DOBUTamine HCL 12.5 MG/ML 20 ML VIAL IV ONE (12:47)
[2020-01-23] MEDS ORDERED: ATROPINE SULFATE 0.1 MG/ML 10ML SYR IV ONE (12:47)
[2020-01-23] MEDS ORDERED: METOPROLOL TARTRATE 1 MG/ML VIAL IV ONE (12:47)
--- NOTE | 2020-01-23 14:34 | Communication Note ---
Date of Service: January 23, 2020 Nonischemic stress test cont with diuresis consider nutrition consult
[2020-01-23] MEDS: cefTRIAXone SODIUM 2,000 MG in DEXTROSE 5% 50 ML IV SCH (14:37)
[2020-01-23] MEDS: TORSEMIDE 10 MG TAB PO SCH (16:59)
[2020-01-23] MEDS: INSULIN DETEMIR FLEXPEN/FLEX TOUCH 100 UNITS/ML 3ML SQ SCH (20:42)
--- NOTE | 2020-01-23 23:41 | Hospitalist Progress Note ---
Date of Service January 23, 2020 Assessment & Plan (1) Bilateral edema of lower extremity: Resolved with IV diuretics. Pt reported whole body swelling and reports on initial notes indicate there was SOB with exertion. This appears most consistent with an acute diastolic heart failure, which is now compensated after intravenous diuretics. Also, the differential includes but is not limited to hypoalbuminemia and recent change of diuretic therapies in Oct 2019 by PCP (at this time chlorthalidone 25mg daily, spironolactone 12.5mg daily and gabapentin 800 QID was stopped. He was placed on Lasix 20mg PO daily 12/23 which was the fill date at [facility] This patient is a diabetic smoker with a h/o CAD s/p stent placement with a mild ischemic cardiomyopathy in the past. Recent echo this admission reveals a normalization of EF and no valvulopathy or other wall motion abnormalities present. There is no further erythema concerning for infection after a course of antibiotics. (2) CAD (coronary artery disease): Increased outpatient angina reported. No evidence of ACS this admission. Mildly elevated troponin without rise around 01/16 when he was first admitted without EKG changes. No active chest pain at this time. Cont medical management of CAD with ASA, Plavix, Lipitor 40, Toprol XL 50mg, lisinopril 40mg daily. Encourage to quit smoking. DSE today for ? UA at home was negative for inducil\ble ischemia. (3) Alcohol abuse: He has a h/o polysubstance abuse s/p inpatient alcohol rehabilitation, but is still wanting to quit. He is having difficulty with virtual communications with his sponsor/meetings during this COVID-19 pandemic. (4) Alcohol withdrawal syndrome without complication: Still with some slight tremors, but he is hemodynamically stable and mentating well. Cont supportive care with PRN Ativan. (5) HTN (hypertension): Currently controlled on home medications including lisinopril 40 mg daily and metoprolol succinate 50 mg daily (6) Hypomagnesemia: resolved with replacement. (7) Type 2 diabetes mellitus: uncontrolled at baseline. Better controlled with pharmacy assistance; cont basal bolus coverage with insulin. (8) Tobacco use disorder: Encouraged strongly to quit smoking as this is bad for his health. Cont Nicoderm patch to help with this. (9) Mood disorder: stable, cont Effexor per home regimen. (10) Chronic pain syndrome: cont Suboxone per home regimen. (11) DVT prophylaxis: Lovenox Full Code Dispo--poss home in am DO Jackie Jameson Hospitalist. Admission and Anticipated Discharge Date Admission Date: January 16, 2020 Subjective pt returned from DSE reporting feeling lightheaded some hallucinations reported today In DSE received Metoprolol 10 IV Denies CP or SOB today Tolerating PO. Review of Systems Review of Systems: All systems reviewed & are unremarkable except as noted in Subjective Physical Exam Physical Exam: CONSTITUTIONAL: WNWD, vitals as above, generally well- appearing EYES: pupils are round and equal bilaterally, normal conjunctivae, no scleral icterus ENT: external ear and nose normal, oropharynx clear, MMM RESPIRATORY: clear to auscultation bilaterally, no crackles, rales or wheezes, normal respiratory effort CARDIOVASCULAR: regular rate and rhythm, S1 and 2 heard without murmurs, gallops or rubs, no JVD, no peripheral edema GASTROINTESTINAL: soft, nontender, nondistended, no guarding. MUSCULOSKELETAL: strength 5/5 throughout, head is normocephalic and atraumatic SKIN: warm and dry NEUROLOGIC: No facial palsy, no dysarthria. CN 2-12 grossly intact, normal cognition, normal speech, mild tremor, no gross focal neuro deficits. PSYCHIATRIC: alert cooperative and oriented to person, place and time. Euthymic mood, makes good eye contact, language grossly intact, recent and remote memory grossly intact. Results & Data Results & Data ([facility]) Vital Signs (Past 12 Hours) Vital Signs Temp Pulse Resp BP Pulse Ox 01/23/20 22:43 36.3 C L 64 18 159/102 H 90 01/23/20 19:14 36.4 C L 62 18 121/79 91 01/23/20 16:59 112/76 01/23/20 15:55 97/66 L 01/23/20 15:43 36.4 C L 76 18 91/61 L 92 Laboratory Results [facility] 01/23/20 05:57 Sodium 136 Potassium 5.0 D Chloride 100 Carbon Dioxide 35 H BUN 32 H Creatinine 1.15 Glucose 250 H Calcium 9.1 Medications Administered Current Inpatient Medications Albuterol (Albuterol Hfa 8 Gm Inhaler) 2 puffs INH Q6R PRN PRN Reason: Wheezing Stop: 02/15/20 19:33 Albuterol (Albuterol 0.083% Nebu Soln 3 Ml Vial) 2.5 mg NEB Q6R PRN PRN Reason: Wheezing Stop: 02/15/20 19:33 Aspirin (Aspirin 81 Mg Ectab) [facility] [place] Stop: 02/16/20 08:59 Last Admin: 01/23/20 07:36 Dose: 81 mg Documented by: Atorvastatin Calcium (Atorvastatin 40 Mg Tab) [address] [facility] Stop: 02/16/20 08:59 Last Admin: 01/23/20 07:37 Dose: 40 mg Documented by: Buprenorphine/Naloxone (Buprenorphine/Naloxone 8/2 Mg Tab) 1 tab SL BID [facility] Stop: 02/16/20 08:59 Last Admin: 01/23/20 20:40 Dose: 1 tab Documented by: Clonidine HCl (Clonidine Hcl 0.1 Mg Tab) 0.1 mg PO Q4H PRN PRN Reason: Hypertension Stop: 02/19/20 22:42 Last Admin: 01/22/20 19:32 Dose: 0.1 mg Documented by: Clopidogrel Bisulfate (Clopidogrel Bisulfate 75 Mg Tab) [address] [facility] Stop: 02/16/20 08:59 Last Admin: 01/23/20 07:37 Dose: 75 mg Documented by: Dextrose (Dextrose 50% 50 Ml Syringe) 25 - 50 ml IV UD PRN; Protocol PRN Reason: Hypoglycemia Protocol Stop: 02/15/20 21:59 Diphenhydramine HCl (Diphenhydramine Capsule 25 Mg Cap) 25 mg PO Q12 PRN PRN Reason: Itching Stop: 02/16/20 09:37 Enoxaparin Sodium (Enoxaparin Inj 40 Mg/0.4 Ml Syr) [address] [facility] Stop: 02/17/20 08:59 Last Admin: 01/23/20 07:37 Dose: 40 mg Documented by: Famotidine (Famotidine 20 Mg Tab) [address] [facility] Stop: 02/16/20 13:14 Last Admin: 01/23/20 07:37 Dose: 20 mg Documented by: Folic Acid (Folic Acid 1 Mg Tab) [address] [facility] Stop: 02/16/20 08:59 Last Admin: 01/23/20 07:37 Dose: 1 mg Documented by: Gabapentin (Gabapentin 600 Mg Tab) 600 mg PO QID [facility] Stop: 02/21/20 20:59 Last Admin: 01/23/20 20:39 Dose: 600 mg Documented by: Glucagon (Glucagon For Inj 1 Mg Vial) 1 mg IM UD PRN; Protocol PRN Reason: Hypoglycemia Protocol Stop: 02/15/20 21:59 Glucose (Glucose 40% Gel 15 Gm Tube) 15 - 30 gm PO UD PRN; Protocol PRN Reason: Hypoglycemia Protocol Stop: 02/15/20 21:59 Glucose (Glucose 10 Tabs/Tube) 4 - 8 tabs PO UD PRN; Protocol PRN Reason: Hypoglycemia Protocol Stop: 02/15/20 21:59 Lorazepam (Ativan) 1 mg in 2 mls @ 2 mls/min IV ONE PRN; Protocol PRN Reason: EtoH Withdrawal AWSS 6-10 Stop: 02/15/20 19:14 Last Admin: 01/22/20 21:11 Dose: 2 mls/min Documented by: Lorazepam (Ativan) 2 mg in 4 mls @ 4 mls/min IV Q6H PRN PRN Reason: Agitation Stop: 02/16/20 09:36 Last Admin: 01/19/20 07:43 Dose: 4 mls/min Documented by: Ceftriaxone Sodium 2,000 mg/ (Dextrose) 50 mls @ 100 mls/hr IV Q24H [facility]; Protocol Stop: 01/27/20 13:59 Last Infusion: 01/23/20 15:06 Dose: Infused Documented by: Insulin Aspart (Insulin Aspart 100 Units/Ml 3 Ml Pen) 0 units SC ACHS [facility] Stop: 02/15/20 21:59 Last Admin: 01/23/20 20:41 Dose: Not Given Documented by: Insulin Detemir (Insulin Detemir Flexpen/Flex Touch 100 Units/Ml 3ml) 0 units SQ BID [facility]; Protocol Stop: 02/22/20 20:59 Last Admin: 01/23/20 20:42 Dose: 20 units Documented by: Lisinopril (Lisinopril 40 Mg Tab) 40 mg PO QAM [facility] Stop: 02/16/20 08:59 Last Admin: 01/23/20 07:37 Dose: 40 mg Documented by: Magnesium Oxide (Magnesium Oxide 400 Mg Tab) 400 mg PO BID [facility] Stop: 02/19/20 20:59 Last Admin: 01/23/20 20:40 Dose: 400 mg Documented by: Metoprolol Succinate (Metoprolol Succ 50mg Ext Rel Tab) [facility] [place] Stop: 02/16/20 08:59 Last Admin: 01/23/20 07:36 Dose: 50 mg Documented by: Miscellaneous (Remove Nicoderm Patch) 1 ea N/A DAILY@0859 [facility] Stop: 02/16/20 08:58 Last Admin: 01/23/20 07:35 Dose: 1 ea Documented by: Miscellaneous (Carbohydrates For Hypoglycemia ) 15 - 30 gm PO UD PRN PRN Reason: Hypoglycemia Treatment Stop: 02/15/20 21:59 Miscellaneous Information (Pharmacy Glycemic Mgmt Consult) 1 ea N/A UD PRN PRN Reason: Consult Stop: 02/21/20 12:41 Multivitamins (Multivitamin Tab) [address] [facility] Stop: 02/15/20 16:29 Last Admin: 01/23/20 07:36 Dose: 1 tab Documented by: Nicotine (Nicotine 21 Mg/24 Hr Tdsy) [address] [facility] Stop: 02/15/20 16:29 Last Admin: 01/23/20 07:37 Dose: 21 mg Documented by: Thiamine HCl (Thiamine Hcl 100 Mg Tab) [address] [facility] Stop: 02/16/20 08:59 Last Admin: 01/23/20 07:37 Dose: 100 mg Documented by: Torsemide (Torsemide 10 Mg Tab) 20 mg PO BID17 [facility] Stop: 02/22/20 16:59 Last Admin: 01/23/20 16:59 Dose: 20 mg Documented by: Trazodone HCl (Trazodone Hcl 50 Mg Tab) 50 mg PO HS PRN PRN Reason: Insomnia Stop: 02/15/20 21:39 Last Admin: 01/23/20 01:15 Dose: 50 mg Documented by: Venlafaxine HCl (Venlafaxine Hcl Xr 150 Mg Capxr) [address] [facility] Stop: 02/16/20 08:59 Last Admin: 01/23/20 07:36 Dose: 150 mg Documented by:
[2020-01-24] MEDS: NICOTINE 21 MG/24 HR TDSY TD SCH (07:56)
[2020-01-24] MEDS: GABAPENTIN 300 MG CAP PO SCH ×2 (07:56→13:44)
[2020-01-24] MEDS: TORSEMIDE 10 MG TAB PO SCH (07:56)
[2020-01-24] MEDS: MAGNESIUM OXIDE 400 MG TAB PO SCH (07:56)
[2020-01-24] MEDS: ENOXAPARIN INJ 40 MG/0.4 ML SYR SQ SCH (07:56)
[2020-01-24] MEDS: ATORVASTATIN 40 MG TAB PO SCH (07:57)
[2020-01-24] MEDS: MULTIVITAMIN TAB PO SCH (07:57)
[2020-01-24] MEDS: ASPIRIN 81 MG ECTAB PO SCH (07:57)
[2020-01-24] MEDS: VENLAFAXINE HCL XR 150 MG CAPXR PO SCH (07:57)
[2020-01-24] MEDS: FOLIC ACID 1 MG TAB PO SCH (07:57)
[2020-01-24] MEDS: THIAMINE HCL 100 MG TAB PO SCH (07:57)
[2020-01-24] MEDS: METOPROLOL SUCC 50MG EXT REL TAB PO SCH (07:57)
[2020-01-24] MEDS: lisinopril 40 MG TAB PO SCH (07:57)
[2020-01-24] MEDS: FAMOTIDINE 20 MG TAB PO SCH (07:57)
[2020-01-24] MEDS: CLOPIDOGREL BISULFATE 75 MG TAB PO SCH (07:58)
[2020-01-24] MEDS: BUPRENORPHINE/NALOXONE 8/2 MG TAB SL SCH (08:00)
[2020-01-24] MEDS: INSULIN DETEMIR FLEXPEN/FLEX TOUCH 100 UNITS/ML 3ML SQ SCH (08:06)
[2020-01-24] MEDS: INSULIN ASPART 100 UNITS/ML 3 ML PEN SC SCH ×2 (08:07→12:11)
[2020-01-24] MEDS ORDERED: INSULIN DETEMIR FLEXPEN/FLEX TOUCH 100 UNITS/ML 3ML SQ SCH (09:00)
--- NOTE | 2020-01-24 09:58 | Pharmacy Report ---
Pharmacy Glycemic Short Note 2 - Date of Service January 24, 2020 - Glycemic Short BSG Results (Last 24 hours): 01/23/20 01/23/20 01/23/20 11:41 16:31 20:39 POC Glucose 229 H 120 H 115 H 01/24/20 07:46 POC Glucose 130 H OUTPATIENT ANTIDIABETIC REGIMEN: * Levemir 40 units SQ HS + Aspart per SS * A1c = 8.3% (01/17/20) ASSESSMENT: 01/24/20: * Pt has received 81 units of insulin over the past 24hrs * 45 units of basal insulin with Levemir * 36 units of bolus insulin with NovoLog * BSGs ranging 115-229 mg/dl * AM fasting BSG is in goal range at 130mg/dl. Will change BSG scale based dosing to fixed ~45 units/day or 23 units SQ BID * post-prandial BSGs in goal range starting last evening. This is about the time that new Levemir dosing BID has achieved steady state. No changes needed to CF/CR 01/23/20: * Pt has received 97 units of SQ insulin over the past 24 hrs * 47 units of basal insulin with Lantus * 50 units of bolus insulin with NovoLog * Plus a one time IV bolus of 8 units IV regular insulin * BSGs still elevated above 180 mg/dl * Unknown reason for hyperglycemia (no major change to medications, no steroids, etc). Therefore will continue to titrate insulin cautiously. * Continue BID Levemir dosing as it appears it is not lasting 24 hrs for this patient and it is typically dosed BID based on its duration of action. * Increase dosing based on BSG for more accurate titration * Darrian tighten NovoLog parameters based on elevated post-prandial BSGs 01/22/20 * Dewayne is a 54 yr old T2DM male admitted with b/l lower extremity edema in the setting of cellulitis. * He has been maintained on his home regimen of Levemir 40 units qHS plus novolog sliding scale with decent glycemic control until yesterday. Majority of BSGs were elevated yesterday with the highest BSG of 283 mg/dL at bedtime. This trend continued today with severe hyperglycemia at both breakfast and lunch. Unknown reason for hyperglycemia (no major change to medications, no steroids, etc). Patient was started on Boost recently, however RN reports he drinks it with meals and the carbs are being covered. * Changes needed to insulin regimen: * I will order a one time dose of IV regular insulin and repeat BSG 2 hours after administration. * I will give an additional dose of 15 units of Levemir x 1 now since fasting has been > 200 mg/dL x 2 days (18% increase). Will change to BID dosing incase Levemir effect is not lasting the full 24 hours for this patient. * Tighten Novolog CF and CR (based on estimated need of 100 units/day). May need loosened in near future. PLAN FOR INPATIENT GLYCEMIC CONTROL: * Basal insulin: changed to fixed dosing * Levemir 23 units SQ BID * Bolus insulin: no change * NovoLog per scale ACHS or Q6hrs while NPO * Goal Range: Low 110 mg/dL - High 140 mg/dL * Correction Factor: 15 mg/dL/unit * Nutritional / Prandial insulin per carb ratio of 1 unit per 5 grams CHO consumed PLAN FOR DISCHARGE: * uncertain at this time * Would recommend changing Levemir to BID dosing as an outpatient for better glycemic control. It appears that it is not lasting 24hrs for this patient as patient is requiring similar outpatient dose of basal insulin but better control with Q12h administration. Alternatively, could consider changing Levemir to Lantus (or even longer Tresiba) if Q24hr insulin is preferred.
--- NOTE | 2020-01-24 11:21 | Cardiology Progress Note ---
Date of Service January 24, 2020 Assessment & Plan (1) TONEY (dyspnea on exertion): (2) Anemia: (3) Bilateral edema of lower extremity: (4) Alcohol abuse: (5) Alcohol withdrawal syndrome without complication: (6) History of cardiac catheterization: (7) Ischemic cardiomyopathy: (8) Tobacco use disorder: From a cardiac standpoint is doing very well today. He is responding briskly to the oral torsemide and edema has resolved. Would continue twice daily for now but discharge home with torsemide every morning with a as needed afternoon dose. Ideally I would also like to start him on spironolactone but his potassium has been running a little high. I will check a BMP now. Continue current doses of aspirin, atorvastatin, lisinopril, metoprolol It is now been over a year since his NSTEMI and I will discontinue his Plavix. Okay to DC telemetry or to home from a cardiac standpoint. Patient now with visual hallucinations in the setting of acute alcohol withdrawal. He is now agreeable to speak with psychiatry. So I will place a consult for psychiatric colleagues to evaluate him. Admission and Anticipated Discharge Date Admission Date: January 16, 2020 Subjective Patient seen and examined, chart reviewed. States that he is feeling well from a cardiac standpoint today. Edema has resolved and denies any further shortness of breath. Denies chest pain, palpitations. He is having hallucinations now. Vision and his grandson sitting on his bed talking to them and his best friend in the room talking to him as well. Still with a slight tremor. Telemetry reviewed: Normal sinus rhythm without arrhythmia or significant ectopy. Review of Systems Review of Systems: All systems reviewed & are unremarkable except as noted in HPI & below Physical Exam Physical Exam: General: Awake, alert and oriented x 3. No acute distress. HEENT: Normocephalic, atraumatic. Pupils equal, round and reactive to light and accommodation. Extraocular muscles are intact. Anicteric sclera. Moist mucous membranes. Neck: No JVD. No bruit. Cardiovascular: Regular. Positive S-4. Normal S-1 and S-2. No S-3. No murmurs or rubs. Pulmonary: Clear to auscultation B/L. No rales, rhonchi or wheezing Abdomen: Bowel sounds x 4, soft. No rebound, guarding or tenderness. No organomegaly. Extremities: No clubbing, cyanosis or edema. +2 pedal pulses bilaterally. Skin: Warm and dry. Results & Data ([facility]) Vital Signs (Past 12 Hours) Vital Signs Temp Pulse Resp BP Pulse Ox 01/24/20 07:39 36.4 C L 67 16 156/76 H 98 01/23/20 23:38 36.5 C 60 16 137/82 93 (1) Anemia Anemia type: unspecified type Qualified Code(s): D64.9 - Anemia, unspecified
[2020-01-24 12:05] LABS: BUN Creatinine Ratio 29.4 (10-20); Calcium 9.5 mg/dl (8.5-10.1); Creatinine Clr Calc Pharmacy 67.3 ml/min; Est GFR (African American) 57.1; Est GFR (Non-African American) 49.3; Potassium 4.5 mmol/L (3.5-5.1)
--- NOTE | 2020-01-24 12:33 | Discharge Summary ---
Date of Service January 24, 2020 Admission HPI Per Admitting Provider He is a 54-year-old obese male with significant past medical history including alcoholism with recurrent withdrawal symptoms, chronic back pain, hypertension, type 2 diabetes with neuropathy, mood disorder has been complaining of bilateral leg swelling for the last 2 to 3 weeks. Recently he was seen by his primary care physician and was advised to come to the hospital for further evaluation and treatment. He complains to have shortness of breath with minimal exertion but denies any chest pain and/or palpitation with it. Denies any fever and/or chills but complains to have sweating especially at night with redness and warmth involving the lower extremities skin. He denies any problem with urine and bowel habit. He has been drinking about half a bottle of vodka daily and also smoking 1-1/2 pack daily. He does not have any withdrawal symptoms as of now. He was admitted to medical telemetry unit for continuation of care. Admission Exam Per Admitting Provider Physical Exam: Lying in bed comfortably Constitutional: well developed, well nourished and + morbidly obese; no acute distress Eyes: PERRL, conjunctivae normal, anicteric sclerae ENMT: external ear and nose normal, oropharynx normal Neck: trachea midline, no thyromegaly Respiratory: no respiratory distress Auscultation: + diminished lung sounds and + wheezes (Mild bilateral wheezing) Cardiovascular: Rate/Rhythm: regular rate and regular rhythm Heart Sounds: no murmur Extremities: + edema (2+ bilateral leg edema up to abdomen) Gastrointestinal (Abdomen): Inspection/Auscultation: + abdomen distended and normal bowel sounds Percussion/Palpation: abdomen soft; abdomen nontender Skin: + erythema (And increased temperature involving the skin of both lower extremities) Neurologic: Alert, awake and oriented x3. No focal sensory and motor deficit appreciated Psychiatric: A+Ox3, euthymic affect Lymphatic: no cervical or axillary lymphadenopathy Principal Diagnosis Bilateral leg cellulitis, erysipelas Bilateral lower extremity edema Alcohol abuse Alcohol withdrawal syndrome without complication HTN (hypertension) Type 2 diabetes mellitus with fpc current use of insulin with neuropathy Tobacco use disorder, with Emphysema Chronic Back Pain on buprenorphine-naloxone (suboxone) Discharge Exam CONSTITUTIONAL: WNWD, vitals as above, generally well-appearing EYES: pupils are round and equal bilaterally, normal conjunctivae, no scleral icterus ENT: external ear and nose normal, oropharynx clear, MMM RESPIRATORY: clear to auscultation bilaterally, no crackles, rales or wheezes, normal respiratory effort CARDIOVASCULAR: regular rate and rhythm, S1 and 2 heard without murmurs, gallops or rubs, no JVD, no peripheral edema GASTROINTESTINAL: soft, nontender, nondistended, no guarding. MUSCULOSKELETAL: strength 5/5 throughout, head is normocephalic and atraumatic SKIN: warm and dry NEUROLOGIC: No facial palsy, no dysarthria. CN 2-12 grossly intact, normal cognition, normal speech, mild tremor, no gross focal neuro deficits. PSYCHIATRIC: alert cooperative and oriented to person, place and time. Euthymic mood, makes good eye contact, language grossly intact, recent and remote memory grossly intact. Discharge Data Allergies Allergy/AdvReac Type Severity Reaction Status Date / Time No Known Allergies Allergy Verified 01/16/20 17:37 Consultations 01/17/20 09:56 Consult Case Management - Discharge Planning Routine 01/23/20 10:11 Consult Cardiology Routine 01/24/20 11:01 Consult Psychiatry Routine Ordered Studies 01/16/20 17:17 CT angio chest PE protocol Stat 01/16/20 18:56 US venous doppler [facility] Urgent Hospital Course (1) Bilateral edema of lower extremity: (2) CAD (coronary artery disease): (3) Alcohol abuse: (4) Alcohol withdrawal syndrome without complication: (5) Type 2 diabetes mellitus: (6) Tobacco use disorder: The patient is a 54-year-old alcoholic man who presented with bilateral leg swelling and swelling of the arms for 2 to 4 weeks. He was admitted to the hospitalist service and placed on intravenous furosemide with his oral furosemide placed on hold. Per record review he had recently been placed on oral furosemide approximately 1 month ago for the first time. He was also on high doses of gabapentin which were stopped by his primary care doctor in October 2019 and then reinitiated by his pain doctor sometime after that. He continues on Suboxone for chronic pain. He did experience alcohol withdrawal symptoms while hospitalized and this was treated supportively. He notably did have continued hallucinations and has a long history of polysubstance abuse and is no stranger to flashbacks prior to admission. An echocardiogram was performed revealing a normal ejection fraction no gross valvular disease and moderate concentric left ventricular hypertrophy. He continued to have success with intravenous diuresis for the next several days and continued to withdrawal from alcohol successfully. On 01/21 he described increased anginal events as outpatient that were occurring with exertion. With a history of stent placement approximately 1 year ago cardiology was consulted and recommended a repeat stress test. On 01/22 a dobutamine stress echocardiogram was nonischemic with no symptoms that were reproducible and no EKG changes revealing ischemia. There was a normal blood pressure response to dobutamine infusion. He returned to the [facility] and cardiology did give him oral torsemide which bumped his creatinine the following morning. His discharge creatinine was around 1.5 with a normal baseline. He was otherwise feeling well, eating mentating and ambulating at baseline with initial symptoms completely resolved. He was oxygenating on room air and was stable for discharge. He was discharged without any further oral diuretics as his oral Lasix was a new medication for him as of only a month ago, and he had previously been on chlorthalidone and spironolactone which had been stopped in October 2019. A repeat BMP is recommended on follow-up in a week, and primary care assessment is needed to decide which oral diuretic if any to pursue moving forward. Additionally, cardiology recommended the patient may stop his Plavix, however this recommendation occurred after the patient was discharged. Defer to primary care physician to stop oral Plavix based on cardiology recommendations. A follow-up appointment was scheduled for the patient early next week with his primary care doctor to discuss all issues further. He does have a history of noncompliance and canceling appointments and was encouraged not to do this. We did also discussed the importance of avoiding drinking and coping strategies with dealing with anxiety that are different than drinking alcohol especially through the weekend. He verbalized he has an AA sponsor that he can call for help. Quitting smoking is also strongly recommended as this is terrible for his health. Also of note, the patient's blood sugar did not appear to be controlled for full 24 hours with a 1 dose daily Levemir. Therefore this was split into a twice daily dosing strategy at the same dose. 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 Tobacco use disorder, with Emphysema Chronic Back Pain on buprenorphine-naloxone (suboxone) Condition on Discharge: Good Activity: Resume your previous activity Non-emergency contact: Primary Care Provider Call non-emergency contact if: you have any medication questions, your symptoms worsen, your pain is not controlled, your pain is worsening, your pain is unusual for you and you have a fever Follow-up/Referrals: Charity Kasper MD [Primary Care Provider] - ( Date & Time 01/30/2020 10:20 AM Provider Charity Reed MD Department General Internal Medicine [facility] ) Diet: Carb Consistent or DM2 and Low Sodium (2gm) Addtl Attending Provider Instructions: Please take all medications as instructed on discharge list below. Please note that you should hold taking Lasix 20mg daily, which is the medication that helps prevent swelling in your legs. Your kidneys look slightly dehydrated on your blood work, so the recommendation is to hold this until your PCP can repeat the blood work next week. As you have not been taking this consistently prior to admission, it would be a good idea to have your PCP draw some blood work to monitor your kidneys and electrolytes. This may be done at follow-up. Additionally, your gabapentin was reduced in dose and frequency as this may contribute to fluid retention. I anticipate this may need to be titrated again as needed for ideal control of your neuropathy. Please work with your PCP to get the idea dose to control your symptoms. Additionally, your Levemir (long-acting insulin) dose has been changed. We noticed that you weren't getting good sugar control for 24 hours, and so it is recommended that you split the dose in half to take twice daily. Please continue to use the Levemir you have at home, just take 20 Units in the morning and 20 Units in the evening every day. You Please follow-up with your primary care provider (PCP) at the time and date above. This is to review your medications, and ensure you are still doing well after discharge. They may order a basic metabolic panel (non-fasting blood work) to ensure your kidney function and electrolytes are improved. It is strongly recommended that you stop smoking and avoid alcohol. Please work with your PCP and AA sponsor to stay quit from these. Please consider seeing a mental health specialist to help you with anxiety and coping strategies. It was a pleasure taking care of you! Please call if you have any questions or problems. You can reach a [facility] hospitalist on duty at [facility] 24 hours a day by calling [phone]. Take care of yourself. Sara Morris DO [facility] Hospitalist Add Beam Builder Helper Provider Instructions: FOLLOW-UP APPOINTMENTS: Date & Time 01/27/2020 4:00 PM Provider Dewayne Martinez Jr., DO Department Cardiology, [facility] Date & Time 01/30/2020 10:20 AM Provider Charity Reed MD Department General Internal Medicine [facility] Pending Studies at Discharge: No Stand-Alone Forms: My [facility], Smoking Cessation Medications and DC Order Prescriptions: New gabapentin 300 mg capsule 300 mg PO TID Qty: 90 RF: 1 clopidogrel [Plavix] 75 mg tablet 75 mg PO QAM Qty: 30 RF: 1 lisinopril [Zestril] 40 mg tablet 40 mg PO QAM Qty: 30 RF: 1 Levemir FlexTouch U-100 Insuln 100 unit/mL (3 mL) Insulin Pen 20 unit subcut BID Qty: 15 RF: 0 Continued insulin aspart U-100 [Novolog Flexpen U-100 Insulin] 100 unit/mL Insulin Pen See Rx Instructions .ROUTE .COMPLEX RF: 0 trazodone 50 mg Tablet 50 mg PO HS PRN (Reason: Insomnia) RF: 0 folic acid 1 mg tablet 1 mg PO QAM RF: 0 buprenorphine-naloxone 8-2 mg tablet, sublingual 1 tab SUBLINGUAL BID RF: 0 atorvastatin [Lipitor] 40 mg tablet 40 mg PO QAM RF: 0 metoprolol succinate [Toprol XL] 50 mg tablet extended release 24 hr 50 mg PO QAM RF: 0 venlafaxine [Effexor XR] 150 mg capsule,extended release 24hr 150 mg PO QAM RF: 0 aspirin [Ecotrin Low Strength] 81 mg tablet,delayed release (DR/EC) 81 mg PO QAM RF: 0 Discontinued Levemir FlexTouch U-100 Insuln 100 unit/mL (3 mL) Insulin Pen 40 unit SUBCUT HS RF: 0 gabapentin 600 mg tablet 600 mg PO QID RF: 0 furosemide 20 mg tablet 20 mg PO QAM RF: 0 furosemide 20 mg tablet 20 mg PO DAILY RF: 0 Discharge Orders: Discharge Order (Routine); Ordered 01/24/20 Ordered By: Sara Campbell/Other Patient Handouts: Managing Type 2 Diabetes, Managing Diabetes: The A1C Test Admission Data Admit Date/Time: 01/16/20 18:51 Attending Provider: Sara Morris Admit Provider: Horace Yuen Primary Care Provider: Charity Kasper Other Providers: Dewayne Martinez Melissa C. Other Interventions: Discharge Summary Assessment (RN) Last Done: 01/24/20 13:20
[2020-01-24] MEDS: cefTRIAXone SODIUM 2,000 MG in DEXTROSE 5% 50 ML IV SCH (13:24)
--- NOTE | 2020-01-24 15:07 | Communication Note ---
Date of Service: January 24, 2020 Psychiatric consult service was informed of consult request to evaluate patient for alcohol withdrawal. Pt was discharged home before we were able to complete evaluation. It is noted that case management was consulted for alcohol withdrawal and did offer referrals for treatment, which patient declined. It appears patient was discharged with recommendation to continue his home dose of venlafaxine 150mg.
[2020-01-25] MEDS ORDERED: TORSEMIDE 20 MG TAB PO SCH (09:00)
--- NOTE | 2020-02-05 09:29 | Coding Query ---
To promote full compliance with coding requirements relating to patient care, provider participation is requested in all cases of aircraft instrument repairer uncertainty. Please assist us with the question(s) below: Coding Question(s): The diagnosis below was documented in the record thru the last Progress Note, then subsequently fell off all further documentation on the Discharge Summary. Please indicate if it is still a possible diagnosis or ruled out. Physician's Response(s): ACUTE DIASTOLIC HEART FAILURE ( ) Diagnosed and POA ( ) Diagnosed and not POA ( ) Ruled out ( x ) Other (please specify)-ischemic cardiomyopathy ) MTDD
== END 2020-01-24 14:58 | disposition home or self-care (01) | DRG 603 ==
LOC: ED 15:18 → 2N 18:51 → SUATTDRO 18:51 → 2N 20:01

== ENCOUNTER 2020-02-29 00:43 | Inpatient (IN) ==
--- NOTE | 2020-02-29 01:40 | Emergency Department Note ---
History of Present Illness General Chief complaint: Swelling/Edema to Extremity Stated complaint: LEGS AND HANDS SWELLING,DOC REFER Time Seen by Provider: 02/29/20 00:54 Source: patient Mode of arrival: ambulatory Limitations: no limitations History of Present Illness This is a 54-year-old male who presents to the emergency department for evaluation of swelling and shortness of breath. Patient states that his caseworkers and PCP referred him here. Patient states that he had been admitted here but after discharge started drinking again. He drinks one half of a gallon of vodka per day. He states that over the past month, he has had a gradual increase of swelling in his legs. He is also noticed some swelling in his hands. He states that he has felt short of breath over the past 2 to 3 days and feels like he cannot catch his breath. He does have a history of coronary artery disease. He states he was supposed to see his primary care provider 2 days ago but was too sick to do so. He is on Lasix and has been taking this as prescribed. Shortness of breath is worse with exertion. He does report some abdominal bloating, denies abdominal pain or vomiting. He denies fevers, cough or chest pain. Home Medications Medication Instructions Recorded Confirmed Type insulin aspart U-100 [Novolog See Rx Instructions .ROUTE .COMPLEX 12/16/17 02/29/20 History Flexpen U-100 Insulin] trazodone 50 mg PO HS PRN 01/01/19 02/29/20 History aspirin [Ecotrin Low Strength] 81 mg PO QAM 08/26/19 02/29/20 History atorvastatin [Lipitor] 40 mg PO QAM 08/26/19 02/29/20 History metoprolol succinate [Toprol XL] 50 mg PO QAM 08/26/19 02/29/20 History venlafaxine [Effexor XR] 150 mg PO QAM 08/26/19 02/29/20 History buprenorphine-naloxone 1 tab SUBLINGUAL BID 01/16/20 02/29/20 History folic acid 1 mg PO QAM 01/16/20 02/29/20 History gabapentin 300 mg PO TID #90 cap 01/23/20 02/29/20 Rx clopidogrel [Plavix] 75 mg PO QAM #30 tab 01/24/20 02/29/20 Rx lisinopril [Zestril] 40 mg PO QAM #30 tab 01/24/20 02/29/20 Rx dulaglutide [Trulicity] 0.75 mg SUBCUT WK 02/29/20 02/29/20 History furosemide 20 mg PO QAM 02/29/20 02/29/20 History insulin detemir U-100 [Levemir 30 unit SUBCUT HS 02/29/20 02/29/20 History FlexTouch U-100 Insuln] Allergies Allergy/AdvReac Type Severity Reaction Status Date / Time No Known Allergies Allergy Verified 02/29/20 02:18 Past Med/Surg History Medical History Alcohol use disorder Diabetes mellitus type 2 with complications Edema HTN (hypertension) Mood disorder Neuropathy NSTEMI (non-ST elevated myocardial infarction) Obesity CATALINO (obstructive sleep apnea) Smoking Tobacco use disorder Type 2 diabetes mellitus Surgical History History of cardiac catheterization 1 ELIESER to proximal OM by Dr. Guerrero on 01/01/19 History of lymph node biopsy Family History Other Heart disease Social History Smoking Status: Current every day smoker Tobacco Type: Cigarettes Years Smoked: 39; Cigarettes Per Day: 30; Second Hand Exposure: Yes; Hx Alcohol Use: Yes Alcohol type: hard liquor Alcohol type Comment: Endorsing 3-5 beers intermittently over past few weeks. H/o heavy use Hx Substance Use: No Preferred Language: Pashto Communication Ability: Effective Pot Sander Required: No Beliefs That Will Affect Care: None marital status: Current Living Situation: Alone Current Living Situation Comment: in RV in friends driveway current occupational status: unemployed How many Children do You have: 2 Other Information That Helps Us Care for You: No Feels Safe at Home: Yes Safety Concerns: Feels Safe At This Time Assistive Devices: Oxygen - Continuous Review of Systems A total of 10 systems reviewed and were otherwise negative Physical Exam Vital Signs Vital Signs - 24 hr 02/29/20 00:47 02/29/20 01:25 02/29/20 02:00 Temperature 36.9 C Temperature Source Oral Pulse Rate 78 Pulse Rate from SpO2 Sensor 74 Respiratory Rate 18 Respiratory Effort / Characteristics Non-Labored Respiratory Depth Normal Respiratory Pattern Regular Blood Pressure 179/100 H 158/93 H Blood Pressure Mean 126 112 Pulse Oximetry 92 91 98 Oxygen Delivery Method Room Air Room Air Nasal Cannula Oxygen Flow Rate 3 Sepsis Recent Fever Within 48 Hours No Sepsis New/Unexplained Change in Mental Status No Sepsis Action Taken by Nursing No Action Required Oxygen Flow Rate - Titration 3 Pulse Oximetry Post Tiitration 96 02/29/20 02:30 02/29/20 03:08 Temperature Temperature Source Pulse Rate 74 Pulse Rate from SpO2 Sensor 74 73 Respiratory Rate 16 Respiratory Effort / Characteristics Respiratory Depth Respiratory Pattern Blood Pressure 187/114 H 160/98 H Blood Pressure Mean 132 118 Pulse Oximetry 94 97 Oxygen Delivery Method Nasal Cannula Nasal Cannula Oxygen Flow Rate 3 3 Sepsis Recent Fever Within 48 Hours Sepsis New/Unexplained Change in Mental Status Sepsis Action Taken by Nursing Oxygen Flow Rate - Titration Pulse Oximetry Post Tiitration VITALS: Vitals are noted on the nurse's note and reviewed by myself. GENERAL: This is a 54-year-old male, in no acute distress, chronically unwell appearing. SKIN: The skin was without rashes. HEAD: Normocephalic atraumatic. EARS: External auditory canals clear, tympanic membranes pearly alvarado without erythema or effusion bilaterally. EYES: Pupils equal round and reactive to light and accommodation. No scleral icterus. MOUTH: Mucous membranes somewhat dry. NECK: Supple without nuchal rigidity. No lymphadenopathy. HEART: Regular rate and rhythm without murmurs gallops or rubs. LUNGS: Expiratory wheezes throughout with crackles of bilateral bases. ABDOMEN: Positive bowel sounds x 4. Abdomen is mildly distended, soft, nontender to palpation. MUSCULOSKELETAL: Range of motion throughout. Strength 5/5 throughout. EXTREMITIES: 2+ pitting edema in bilateral lower extremities up to the level of the knees. NEURO: Patient was alert and oriented to person place and time. Course Administered Medications Aspirin (Aspirin 81 Mg Ectab) 81 mg PO [facility] Stop: 03/30/20 08:59 Last Admin: 02/29/20 08:17 Dose: 81 mg Documented by: [id number] Atorvastatin Calcium ([facility]atin 40 Mg Tab) [facility] Stop: 03/30/20 08:59 Last Admin: 02/29/20 08:17 Dose: 40 mg Documented by: [id number] Buprenorphine/Naloxone (Buprenorphine/Naloxone 8/2 Mg Tab) 1 tab SL BID [facility] Stop: 03/30/20 08:59 Last Admin: 02/29/20 20:52 Dose: 1 tab Documented by: [id number] Admin: 02/29/20 08:23 Dose: 1 tab Documented by: [id number] Clonidine HCl (Clonidine Hcl 0.1 Mg Tab) 0.1 mg PO Q4H PRN PRN Reason: Hypertension Stop: 03/30/20 23:52 Last Admin: 03/01/20 00:11 Dose: 0.1 mg Documented by: [id number] Clopidogrel Bisulfate (Clopidogrel Bisulfate 75 Mg Tab) 75 mg PO QAM [facility] Stop: 03/30/20 08:59 Last Admin: 02/29/20 08:17 Dose: 75 mg Documented by: [id number] Folic Acid (Folic Acid 1 Mg Tab) [facility] [place] Stop: 03/30/20 08:59 Last Admin: 02/29/20 08:17 Dose: 1 mg Documented by: [id number] Gabapentin (Gabapentin 600 Mg Tab) 600 mg PO Q8H [facility] Stop: 03/01/20 18:01 Last Admin: 03/01/20 01:23 Dose: 600 mg Documented by: [id number] Heparin Sodium (Porcine) (Heparin Sod 5,000 Unit/0.5 Ml Vial) 5,000 units SQ Q8 [facility] Stop: 03/30/20 05:59 Last Admin: 02/29/20 20:52 Dose: 5,000 units Documented by: [id number] Admin: 02/29/20 15:08 Dose: 5,000 units Documented by: [id number] Admin: 02/29/20 06:32 Dose: 5,000 units Documented by: [id number] Lorazepam (Ativan) 1 mg in 2 mls @ 2 mls/min IV UD PRN; Protocol PRN Reason: EtOH Withdrawl AWSS Score 6,7 Stop: 03/30/20 05:40 Last Admin: 03/01/20 00:11 Dose: 2 mls/min Documented by: [id number] Admin: 02/29/20 15:52 Dose: 2 mls/min Documented by: [id number] Admin: 02/29/20 11:37 Dose: 2 mls/min Documented by: [id number] Furosemide 40 mg/ Syringe 4 mls @ 4 mls/min IV DAILY [facility] Stop: 03/30/20 08:59 Last Admin: 02/29/20 08:18 Dose: 4 mls/min Documented by: [id number] Insulin Aspart (Insulin Aspart 100 Units/Ml 3 Ml Pen) 0 units SC ACHS [facility] Stop: 03/30/20 07:29 Last Admin: 02/29/20 20:54 Dose: 2 units Documented by: [id number] Cosigned by: [id number] Admin: 02/29/20 17:28 Dose: 6 units Documented by: [id number] Cosigned by: [id number] Admin: 02/29/20 12:05 Dose: 6 units Documented by: [id number] Cosigned by: [id number] Admin: 02/29/20 08:16 Dose: 4 units Documented by: [id number] Cosigned by: [id number] Insulin Detemir (Insulin Detemir Flexpen/Flex Touch 100 Units/Ml 3ml) 30 units SQ HS [facility] Stop: 03/30/20 20:59 Last Admin: 02/29/20 20:53 Dose: 30 units Documented by: [id number] Cosigned by: [id number] Lisinopril (Lisinopril 40 Mg Tab) 40 mg PO [facility] Stop: 03/30/20 08:59 Last Admin: 02/29/20 08:17 Dose: 40 mg Documented by: [id number] Metoprolol Succinate (Metoprolol Succ 50mg Ext Rel Tab) 50 mg PO [facility] Stop: 03/30/20 08:59 Last Admin: 02/29/20 06:32 Dose: 50 mg Documented by: [id number] Multivitamins/Minerals (Cerovite Adv Formula Tab) 1 tab PO [facility] Stop: 03/30/20 08:59 Last Admin: 02/29/20 08:17 Dose: 1 tab Documented by: [id number] Nicotine (Nicotine 21 Mg/24 Hr Tdsy) 21 mg TD [facility] Stop: 03/30/20 08:59 Last Admin: 02/29/20 08:18 Dose: 21 mg Documented by: [id number] Thiamine HCl (Thiamine Hcl 100 Mg Tab) [facility] [place] Stop: 03/30/20 08:59 Last Admin: 02/29/20 08:17 Dose: 100 mg Documented by: [id number] Venlafaxine HCl (Venlafaxine Hcl Xr 150 Mg Capxr) 150 mg PO [facility] Stop: 03/30/20 08:59 Last Admin: 02/29/20 08:17 Dose: 150 mg Documented by: [id number] Discontinued Medications Furosemide (Furosemide 40 Mg/4 Ml Vial) 40 mg IV NOW STA Stop: 02/29/20 02:30 Last Admin: 02/29/20 03:20 Dose: 40 mg Documented by: [id number] Gabapentin (Gabapentin 600 Mg Tab) 1,200 mg PO NOW ONE Stop: 02/29/20 06:01 Last Admin: 02/29/20 06:31 Dose: 1,200 mg Documented by: [id number] Gabapentin (Gabapentin 600 Mg Tab) 600 mg PO Q6H [facility] Stop: 02/29/20 18:01 Last Admin: 02/29/20 17:30 Dose: 600 mg Documented by: [id number] Admin: 02/29/20 11:38 Dose: 600 mg Documented by: [id number] Thiamine HCl 100 mg/ Syringe 10 mls @ 2 mls/min IV NOW STA Stop: 02/29/20 02:33 Last Admin: 02/29/20 03:44 Dose: 2 mls/min Documented by: [id number] Folic Acid 1 mg/ Syringe 10 mls @ 5 mls/min IV NOW STA Stop: 02/29/20 02:30 Last Admin: 02/29/20 03:44 Dose: 5 mls/min Documented by: [id number] Magnesium Sulfate/Dextrose (Magnesium Sulfate / D5w) 1 gm in 100 mls @ 50 mls/hr IV 0930 ONE Stop: 02/29/20 11:29 Last Infusion: 02/29/20 11:11 Dose: 0 mls/hr Documented by: [id number] Admin: 02/29/20 09:06 Dose: 50 mls/hr Documented by: [id number] Medical Decision Making Differential Diagnosis Reactive airway disease, pneumonia, pneumothorax, COPD, CHF, infections, cardiac ischemia, pulmonary embolism, musculoskeletal, gastrointestinal, as well as other pathologies. Home Medications Current Medication List: was personally reviewed by me Laboratory Data Attestation: I reviewed the patient's lab results. Result diagrams: 02/29/20 07:22 02/29/20 07:22 Lab Results 02/29/20 02/29/20 02/29/20 Range/Units 01:21 01:21 01:21 WBC 5.54 (4.8-10.8) K/uL RBC 3.74 L (4.7-6.1) M/uL Hgb 12.1 L (14.0-18.0) g/dL Hct 35.6 L (42-52) % MCV 95.2 (80-100) fL MCH 32.4 (25-34) pg MCHC 34.0 (32-36) g/dL RDW Std Deviation 46.0 (36.4-46.3) fL RDW Coeff of Alberto 13.2 (11.5-14.5) % Plt Count 202 (130-400) K/uL MPV 9.6 (7.4-10.4) fL Immature Gran % (Auto) 0.0 % Neut % (Auto) 51.8 % Lymph % (Auto) 34.1 % [place] % (Auto) 11.4 % Eos % (Auto) 2.2 % Baso % (Auto) 0.5 % Neut # (Auto) 2.87 (1.4-6.5) K/uL Lymph # (Auto) 1.89 (1.2-3.4) K/uL [place] # (Auto) 0.63 H (0.11-0.59) K/uL Eos # (Auto) 0.12 (0-0.5) K/uL Baso # (Auto) 0.03 (0-0.2) K/uL Immature Gran # (Auto) 0.00 (0.00-0.02) K/uL Sodium 138 (136-145) mmol/L Potassium 3.5 (3.5-5.1) mmol/L Chloride 100 (98-107) mmol/L Carbon Dioxide 30 (21-32) mmol/L Anion Gap 8.0 (3-11) BUN 11 (7-18) mg/dl Creatinine 0.92 (0.6-1.4) mg/dl Est Cr Clr Drug Dosing 116.8 ml/min Est GFR ( Amer) 108.1 Est GFR (Non-Af Amer) 93.3 BUN/Creatinine Ratio 12.1 (10-20) Glucose 201 H (70-99) mg/dl Calcium 7.9 L (8.5-10.1) mg/dl Total Bilirubin 0.6 (0.2-1) mg/dl AST 78 H (15-37) U/L ALT 54 (12-78) U/L Alkaline Phosphatase 117 (45-117) U/L Troponin I 0.107 H* (0-0.045) ng/ml NT-Pro-B Natriuret Pep 2171 H (0-900) pg/ml Total Protein 6.8 (6.4-8.2) gm/dl Albumin 2.4 L (3.4-5.0) gm/dl Globulin 4.4 H (2.5-4.0) gm/dl Albumin/Globulin Ratio 0.5 L (0.9-2) Urine Color Urine Appearance (Clear) Urine pH (4.5-7.5) Ur Specific [place] (1.000-1.030) Urine Protein (Negative) Urine Glucose (UA) (Negative) Urine Ketones (Negative) Urine Blood (Negative) Urine Nitrite (Negative) Urine Bilirubin (Negative) Urine Urobilinogen (Negative) Ur Leukocyte Esterase (Negative) Urine WBC (Auto) (0-5) /hpf Urine RBC (Auto) (0-4) /hpf U Hyaline Cast (Auto) (0-5) /lpf U Epithel Cells (Auto) (0-5) /lpf Urine Bacteria (Auto) (Negative) Ethyl Alcohol mg/dL 250.0 H (0-3) mg/dl 02/29/20 Range/Units 01:34 WBC (4.8-10.8) K/uL RBC (4.7-6.1) M/uL Hgb (14.0-18.0) g/dL Hct (42-52) % MCV (80-100) fL MCH (25-34) pg MCHC (32-36) g/dL RDW Std Deviation (36.4-46.3) fL RDW Coeff of Alberto (11.5-14.5) % Plt Count (130-400) K/uL MPV (7.4-10.4) fL Immature Gran % (Auto) % Neut % (Auto) % Lymph % (Auto) % [place] % (Auto) % Eos % (Auto) % Baso % (Auto) % Neut # (Auto) (1.4-6.5) K/uL Lymph # (Auto) (1.2-3.4) K/uL [place] # (Auto) (0.11-0.59) K/uL Eos # (Auto) (0-0.5) K/uL Baso # (Auto) (0-0.2) K/uL Immature Gran # (Auto) (0.00-0.02) K/uL Sodium (136-145) mmol/L Potassium (3.5-5.1) mmol/L Chloride (98-107) mmol/L Carbon Dioxide (21-32) mmol/L Anion Gap (3-11) BUN (7-18) mg/dl Creatinine (0.6-1.4) mg/dl Est Cr Clr Drug Dosing ml/min Est GFR ( Amer) Est GFR (Non-Af Amer) BUN/Creatinine Ratio (10-20) Glucose (70-99) mg/dl Calcium (8.5-10.1) mg/dl Total Bilirubin (0.2-1) mg/dl AST (15-37) U/L ALT (12-78) U/L Alkaline Phosphatase (45-117) U/L Troponin I (0-0.045) ng/ml NT-Pro-B Natriuret Pep (0-900) pg/ml Total Protein (6.4-8.2) gm/dl Albumin (3.4-5.0) gm/dl Globulin (2.5-4.0) gm/dl Albumin/Globulin Ratio (0.9-2) Urine Color Yellow Urine Appearance Clear (Clear) Urine pH 5.5 (4.5-7.5) Ur Specific [place] 1.012 (1.000-1.030) Urine Protein 3+ H (Negative) Urine Glucose (UA) Negative (Negative) Urine Ketones Negative (Negative) Urine Blood 2+ H (Negative) Urine Nitrite Negative (Negative) Urine Bilirubin Negative (Negative) Urine Urobilinogen Negative (Negative) Ur Leukocyte Esterase Negative (Negative) Urine WBC (Auto) 1-5 (0-5) /hpf Urine RBC (Auto) 0-4 (0-4) /hpf U Hyaline Cast (Auto) 1-5 (0-5) /lpf U Epithel Cells (Auto) 10-20 H (0-5) /lpf Urine Bacteria (Auto) Negative (Negative) Ethyl Alcohol mg/dL (0-3) mg/dl Imaging Data Attestation: I personally reviewed and interpreted this imaging study as follows: My Impression: CHEST 1 VIEW: Cardiomegaly, no pulmonary infiltrates ECG Data Attestation: I personally reviewed and interpreted this ECG as follows: Indication: + SOB/dyspnea Rate (beats per minute): 76 Rhythm: + normal sinus ECG Intervals/blocks: + Normal QRS ECG ST segments: + Normal ST segments Change: no significant change MDM Narrative The patient is a 54-year-old male who presents today complaining of shortness of breath and leg swelling. Patient is an alcoholic and had a recent admission here for CHF/fluid overload. He states that on discharge, he began drinking again immediately. He now has pitting edema in his legs and increasing TONEY. Labs revealed no leukocytosis, he is mildly anemic. Glucose is elevated at 201. Troponin elevated at 0.107, which is higher than on his last admission. Patient given IV lasix as well as thiamine and folate. [facility] to [facility] the patient for further care. Impression & Plan TONEY (dyspnea on exertion), Bilateral edema of lower extremity, Elevated troponin, Alcoholism Discharge Plan Visit Data Chief Complaint: Swelling/Edema to Extremity Stated Complaint: LEGS AND HANDS SWELLING,DOC REFER ED Provider: Mesfin Díaz ED Midlevel Provider: Dorys Jasso Discharge Problem: TONEY (dyspnea on exertion), Bilateral edema of lower extremity, Elevated trop onin, Alcoholism Patient Disposition: Admitted As Inpatient Discharge Instructions Interventions: ED Discharge Assessment Last Done: 02/29/20 05:14
[2020-02-29 01:45] LABS: Appearance Urine Clear (Clear); Bacteria Urine Automated Negative (Negative); Bilirubin Urine Negative (Negative); Blood Urine 2+ (Negative); Color Urine Yellow; Glucose Urine UA Negative (Negative); Ketones Urine Negative (Negative); Leukocyte Esterase Urine Negative (Negative); Nitrite Urine Negative (Negative); Protein Urine 3+ (Negative); RBC Urine Automated 0-4 /hpf (0-4); Specific Gravity Urine 1.012 (1.000-1.030); Urobilinogen Urine Negative (Negative); pH Urine 5.5 (4.5-7.5)
[2020-02-29 01:48] LABS: Basophils # (auto) 0.03 K/uL (0-0.2); Basophils % (auto) 0.5 %; Eosinophils # (auto) 0.12 K/uL (0-0.5); Eosinophils % (auto) 2.2 %; Hematocrit (blood only) 35.6 % (42-52); Hemoglobin 12.1 g/dL (14.0-18.0); Lymphocytes # (auto) 1.89 K/uL (1.2-3.4); Lymphocytes % (auto) 34.1 %; Mean Corpuscular Hemoglobin 32.4 pg (25-34); Mean Corpuscular Volume 95.2 fL (80-100); Mean Platelet Volume 9.6 fL (7.4-10.4); Monocytes # (auto) 0.63 K/uL (0.11-0.59); Monocytes % (auto) 11.4 %; Neutrophils # (auto) 2.87 K/uL (1.4-6.5); Neutrophils % (auto) 51.8 %; Platelet Count 202 K/uL (130-400); RDW Coefficient of Variation 13.2 % (11.5-14.5); Red Blood Count 3.74 M/uL (4.7-6.1); White Blood Count 5.54 K/uL (4.8-10.8)
[2020-02-29 02:06] LABS: Albumin Level 2.4 gm/dl (3.4-5.0); BUN Creatinine Ratio 12.1 (10-20); Calcium 7.9 mg/dl (8.5-10.1); Creatinine Clr Calc Pharmacy 116.8 ml/min; Est GFR (African American) 108.1; Est GFR (Non-African American) 93.3; Potassium 3.5 mmol/L (3.5-5.1)
[2020-02-29 02:13] LABS: Albumin Globulin Ratio 0.5 (0.9-2); Bilirubin,Total 0.6 mg/dl (0.2-1); Globulin 4.4 gm/dl (2.5-4.0); Total Protein 6.8 gm/dl (6.4-8.2); Troponin I 0.107 ng/ml (0-0.045)
[2020-02-29] MEDS ORDERED: FOLIC ACID 1 MG in SYRINGE 9.8 ML IV STA (02:29)
[2020-02-29] MEDS ORDERED: FUROSEMIDE 40 MG/4 ML VIAL IV STA (02:29)
[2020-02-29] MEDS ORDERED: THIAMINE HCL 100 MG in SYRINGE 9 ML IV STA (02:29)
[2020-02-29] MEDS ORDERED: ONDANSETRON INJ 2 MG/ML 2 ML VIAL IV PRN (05:41)
[2020-02-29] MEDS ORDERED: GABAPENTIN 1200MG ALCOHOL WITHDRAWAL LOAD PO STA (05:41)
[2020-02-29] MEDS ORDERED: ATIVAN IV ALCOHOL WITHDRAWL IV PRN (05:41)
[2020-02-29] MEDS ORDERED: NITROGLYCERIN SL 0.4 MG/TAB TAB SL PRN (05:41)
[2020-02-29] MEDS ORDERED: traZODone HCL 50 MG TAB PO PRN (05:41)
[2020-02-29] MEDS ORDERED: GABAPENTIN 600 MG TAB PO ONE (06:00)
--- NOTE | 2020-02-29 06:22 | History and Physical Report ---
DATE OF ADMISSION: 02/29/2020 CHIEF COMPLAINT: Alcoholism and swelling of his extremities. HISTORY OF PRESENT ILLNESS: This is a 54-year-old male with past medical history significant for type 2 diabetes, hyperlipidemia, sleep apnea, hypertension, history of ischemic cardiomyopathy, alcoholism, anemia, depression, generalized anxiety disorder, tobacco use disorder, who lives alone, presents with increasing swelling of his extremities and he was also feeling short of breath since yesterday. [place] like his abdomen is bloating and compressing his lungs. Denies any fever, chills,has smokers cough. No chest pain. Denies any headache, no blurred visions. Once in a while, he has some ringing noise in the ears, but that does not bother him. He has chronic runny nose. No sore throat. Once in a while in the morning, he vomits because of his alcoholism. Denies any blood in the vomitus. He is constipated. Once in a while, he wipes some blood because of constipation. He thinks he has BPH because sometimes he has to strain for urinating. Denies any fever, chills. He is on Lasix 20 mg p.o. daily. The patient is still smoking 1 pack of cigarettes daily and still drinking alcohol about half a gallon of vodka daily and he is willing to go to rehabilitation now. He has been in rehab in the past and his longest abstinence was 10-1/2 months. The patient was here in December with similar complaints and at that time echo was done which shows normal EF, moderate concentric left ventricular hypertrophy. He has a history of CAD status post stent with one drug-eluting stent, in December 2018. Last admission, on 01/23/2020, he had a dobutamine stress echo which was unremarkable. He was treated with Lasix and at the time of discharge, Lasix was held, but it was restarted by his PCP, which he is taking regularly. At the time of discharge, cardiology also advised Plavix to be stopped, but the patient was already discharged by that time. The patient is worried about edema. He thinks he might have CHF. Resting comfortably. he is talking in full sentences and hemodynamically stable. His alcohol is 250. He states after 3 days of stopping alcohol he gets withdrawal symptoms. In the past, he had a few seizure episodes because of stopping to drink by himself. ALLERGIES: No known drug allergies. PAST MEDICAL HISTORY: As mentioned above. PAST SURGICAL HISTORY: Colonoscopy, cardiac catheterization, status post stent placement. MEDICATIONS: The patient is on aspirin 81 mg p.o. daily, Lipitor 40 mg p.o. a.m., Suboxone 1 tablet sublingual b.i.d., Plavix 75 mg p.o. daily, Trulicity 0.75 mg subcutaneous weekly, folic acid 1 mg p.o. a.m., Lasix 20 mg p.o. a.m., gabapentin 300 mg p.o. t.i.d., NovoLog FlexPen sliding scale, Levemir 30 units subcutaneous at bedtime, lisinopril 40 mg p.o. a.m., Toprol-XL 50 mg p.o. a.m., trazodone 50 mg p.o. at bedtime p.r.n., venlafaxine 150 mg p.o. a.m. FAMILY HISTORY: Significant for paternal grandmother has diabetes; paternal grandfather has heart disorder; maternal grandmother has heart disorder. SOCIAL HISTORY: Single, smokes about a pack a day. Alcohol, currently drinking about half a gallon of vodka every day. No drug use currently. REVIEW OF SYSTEMS: As per HPI. Rest of the review of systems negative. PHYSICAL EXAMINATION: GENERAL: The patient is morbidly obese, not in acute distress. VITAL SIGNS: Temperature 36.9, pulse 76, respiratory rate 16, blood pressure 160/98, oxygen 97% on 3 liters. HEENT: Pupils equal, round, and reactive to light. Oral mucosa moist. NECK: No neck masses seen. CARDIOVASCULAR: S1, S2 heard. Regular rate and rhythm, no murmur, no gallop. RESPIRATORY SYSTEM: Normal AP diameter. No accessory muscle use. Mild occasional expiratory wheezing heard, no crackles. ABDOMEN: Soft, bowel sounds present, nontender. No distention. CENTRAL NERVOUS SYSTEM: Cranial nerves II-XII grossly intact, nonfocal. EXTREMITIES: Bilateral lower extremity gross pedal edema present. Mild erythematous changes seen. LABORATORY DATA: WBC 5.5, hemoglobin 12.1, hematocrit 35.6, platelets 202. Sodium 138, potassium 3.5, chloride 100, bicarbonate 30, BUN 11, creatinine 0.9, serum glucose 201, calcium 7.9, total bilirubin 0.6, AST 78, ALT 54, alkaline phosphatase 170. Troponin I of 0.107. BNP 2100. Urinalysis negative. Ethyl alcohol 250. SARS-CoV-2 antigen rapid test negative. IMAGING DATA: Chest x-ray, no acute findings. EKG: Normal sinus rhythm with a rate of 77, QTC of 488, no significant change was found. ASSESSMENT AND PLAN: This is a 54-year-old male who presents with increasing edema of his extremities and shortness of breath and also alcoholism. 1. Edema of the extremities and alcoholism. Last admission, had echo in December 2019, echo showed normal ejection fraction and moderate concentric left ventricular hypertrophy. His EF in December 2018 was 45% to 50%. The patient is chronically on Lasix 20 mg daily at home. Received IV Lasix 40 in the ER. We will place on IV Lasix 40 daily. Further diuretics as per cardiology. His BNP is elevated, possible diastolic congestive heart failure. Closely monitor in the tele floor. Lower extremity edema, we will also rule out deep venous thrombosis with Dopplers. 2. Alcoholism, alcohol is 250. We will place him on gabapentin, alcohol withdrawal protocol. We will hold his home gabapentin while he is getting gabapentin withdrawal protocol. We will also place him on IV Ativan p.r.n. with protocol, folic acid p.o., thiamine, and multivitamins. Closely monitor for withdrawals. 3. History of coronary artery disease status post stent in December 2018, on aspirin, Plavix, beta arnold, and statin. Currently asymptomatic. Troponin is mildly elevated at 0.1. We will follow serial enzymes and await cardio input. Last admission, cardiology advised to stop Plavix. 4. Chronic back pain. Continue his home Suboxone. 5 Diabetes. Will continue his Levemir, placed on sliding scale. Follow hemoglobin A1c level, follow his blood sugars. 6. History of hypertension. Continue his lisinopril, metoprolol, and diuretics. We will monitor the blood pressure. 7. Hyperlipidemia. Continue statin. 8. Tobacco abuse, nicotine patch. 9. Deep venous thrombosis prophylaxis. We will place him on heparin subQ. DISPOSITION: Closely monitor in the tele floor. Level 1 full code. MTDD
[2020-02-29] MEDS: METOPROLOL SUCC 50MG EXT REL TAB PO SCH (06:32)
[2020-02-29] MEDS: HEPARIN SOD 5,000 UNIT/0.5 ML VIAL SQ SCH ×3 (06:32→20:52)
[2020-02-29 07:40] LABS: Basophils # (auto) 0.02 K/uL (0-0.2); Basophils % (auto) 0.5 %; Eosinophils # (auto) 0.16 K/uL (0-0.5); Eosinophils % (auto) 4.2 %; Hematocrit (blood only) 36.8 % (42-52); Hemoglobin 12.2 g/dL (14.0-18.0); Lymphocytes # (auto) 1.66 K/uL (1.2-3.4); Lymphocytes % (auto) 43.7 %; Mean Corpuscular Hemoglobin 31.7 pg (25-34); Mean Corpuscular Hgb Conc 33.2 g/dL (32-36); Mean Corpuscular Volume 95.6 fL (80-100); Mean Platelet Volume 9.7 fL (7.4-10.4); Monocytes # (auto) 0.47 K/uL (0.11-0.59); Monocytes % (auto) 12.4 %; Neutrophils # (auto) 1.49 K/uL (1.4-6.5); Neutrophils % (auto) 39.2 %; Platelet Count 191 K/uL (130-400); RDW Coefficient of Variation 13.4 % (11.5-14.5); RDW Standard Deviation 46.7 fL (36.4-46.3); Red Blood Count 3.85 M/uL (4.7-6.1)
[2020-02-29 07:48] LABS: Estimated Average Glucose 180 mg/dl; Hemoglobin A1C 7.9 % (4.5-5.6)
[2020-02-29 08:08] LABS: BUN Creatinine Ratio 11.2 (10-20); Calcium 8.3 mg/dl (8.5-10.1); Est GFR (Non-African American) 85.4; Magnesium 1.4 mg/dl (1.8-2.4); Potassium 3.8 mmol/L (3.5-5.1)
[2020-02-29] MEDS: INSULIN ASPART 100 UNITS/ML 3 ML PEN SC SCH ×4 (08:16→20:54)
[2020-02-29] MEDS: lisinopril 40 MG TAB PO SCH (08:17)
[2020-02-29] MEDS: FOLIC ACID 1 MG TAB PO SCH (08:17)
[2020-02-29] MEDS: VENLAFAXINE HCL XR 150 MG CAPXR PO SCH (08:17)
[2020-02-29] MEDS: ASPIRIN 81 MG ECTAB PO SCH (08:17)
[2020-02-29] MEDS: ATORVASTATIN 40 MG TAB PO SCH (08:17)
[2020-02-29] MEDS: THIAMINE HCL 100 MG TAB PO SCH (08:17)
[2020-02-29] MEDS: CEROVITE ADV FORMULA TAB PO SCH (08:17)
[2020-02-29] MEDS: CLOPIDOGREL BISULFATE 75 MG TAB PO SCH (08:17)
[2020-02-29] MEDS: FUROSEMIDE 40 MG in SYRINGE 0 ML IV SCH (08:18)
[2020-02-29] MEDS: NICOTINE 21 MG/24 HR TDSY TD SCH (08:18)
[2020-02-29] MEDS: BUPRENORPHINE/NALOXONE 8/2 MG TAB SL SCH ×2 (08:23→20:52)
[2020-02-29 08:25] LABS: Troponin I 0.107 ng/ml (0-0.045)
--- NOTE | 2020-02-29 08:46 | Cardiology Consultation ---
Date of Consultation February 29, 2020 Assessment & Plan (1) CAD (coronary artery disease): (2) Alcohol abuse: (3) Type 2 diabetes mellitus: (4) CATALINO (obstructive sleep apnea): (5) Cirrhosis of liver: Believe the patient's lower extremity edema is more likely on the basis of liver cirrhosis and untreated obstructive sleep apnea. I agree with IV diuretics. I do not believe any additional cardiac testing is indicated at this time. History of Present Illness Attending Physician: Everton Troy MD History of Present Illness This is a 54-year-old alcoholic who presented with lower extremity edema. This patient had an echocardiogram and dobutamine stress echocardiogram at the end of January which indicated normal LV and RV function and no significant valvular pathology and no evidence of ischemic heart disease. The patient had been in rehab and was doing well attending meetings and then the Covid hit and he was left to himself at home and started to consume large amounts of alcohol. He feels better now that he has been given diuretics and his edema is going down. Dopplers of the lower extremities were negative for DVT. He denies shortness of breath. The patient has a history of sleep apnea and I am unsure as to how compliant he has been with treatment. He has had no chest pain. He does have a history of a previous drug-eluting stent but his ischemic heart disease has been stable for several years. PAST MEDICAL HISTORY: 1. Coronary artery disease status post non ST segment elevation [place] receiving drug-eluting stent x1 to OM 1 2. Mild ischemic cardiomyopathy 3. History of polysubstance abuse status post inpatient alcohol rehab 4. Tobacco abuse ongoing 5. Diabetes Allergies Allergy/AdvReac Type Severity Reaction Status Date / Time No Known Allergies Allergy Verified 02/29/20 02:18 Home Medications Medication Instructions Recorded Confirmed Type insulin aspart U-100 [Novolog See Rx Instructions .ROUTE .COMPLEX 12/16/17 02/29/20 History Flexpen U-100 Insulin] trazodone 50 mg PO HS PRN 01/01/19 02/29/20 History aspirin [Ecotrin Low Strength] 81 mg PO QAM 08/26/19 02/29/20 History atorvastatin [Lipitor] 40 mg PO QAM 08/26/19 02/29/20 History metoprolol succinate [Toprol XL] 50 mg PO QAM 08/26/19 02/29/20 History venlafaxine [Effexor XR] 150 mg PO QAM 08/26/19 02/29/20 History buprenorphine-naloxone 1 tab SUBLINGUAL BID 01/16/20 02/29/20 History folic acid 1 mg PO QAM 01/16/20 02/29/20 History gabapentin 300 mg PO TID #90 cap 01/23/20 02/29/20 Rx clopidogrel [Plavix] 75 mg PO QAM #30 tab 01/24/20 02/29/20 Rx lisinopril [Zestril] 40 mg PO QAM #30 tab 01/24/20 02/29/20 Rx dulaglutide [Trulicity] 0.75 mg SUBCUT WK 02/29/20 02/29/20 History furosemide 20 mg PO QAM 02/29/20 02/29/20 History insulin detemir U-100 [Levemir 30 unit SUBCUT HS 02/29/20 02/29/20 History FlexTouch U-100 Insuln] Patient History Medical History Alcohol use disorder Diabetes mellitus type 2 with complications Edema HTN (hypertension) Mood disorder Neuropathy NSTEMI (non-ST elevated myocardial infarction) Obesity CATALINO (obstructive sleep apnea) Smoking Tobacco use disorder Type 2 diabetes mellitus Surgical History History of cardiac catheterization 1 ELIESER to proximal OM by Dr. Guerrero on 01/01/19 History of lymph node biopsy Family History Other Heart disease Social History Smoking Status: Current every day smoker Tobacco Type: Cigarettes Years Smoked: 39; Cigarettes Per Day: 30; Second Hand Exposure: Yes; Hx Alcohol Use: Yes Alcohol type: hard liquor Alcohol type Comment: Endorsing 3-5 beers intermittently over past few weeks. H/o heavy use Hx Substance Use: No Preferred Language: Arabic Communication Ability: Effective Polisher Apprentice Required: No Beliefs That Will Affect Care: None marital status: Current Living Situation: Alone Current Living Situation Comment: in RV in friends driveway current occupational status: unemployed How many Children do You have: 2 Other Information That Helps Us Care for You: No Feels Safe at Home: Yes Safety Concerns: Feels Safe At This Time Assistive Devices: Oxygen - Continuous Review of Systems Review of Systems: All systems reviewed & are unremarkable except as noted in HPI & below Nothing additional to add. Physical Exam Physical Exam: General: no acute distress and stated age Head: normocephalic, no masses, lesions, tenderness or abnormalities Eyes: conjunctiva are pink and non-injected, sclera clear Neck: supple, no adenopathy, no bruits, normal jugular venous pulse, no hepatojugular reflux Chest: normal shape and normal respiratory effort Lungs: clear to auscultation and percussion Cardiac Exam: - regular rate & rhythm, no murmurs gallops or rubs - normal S1, normal S2 Pulses: 2(+) throughout Abdomen: abdomen soft, non-tender, no abnormal masses and no hepatosplenomegaly Musculoskeletal: no gait disturbance, no joint inflammation, no deforming arthritis Extremities: Edema to the midcalf bilaterally. Neuro: grossly normal exam Results & Data ([facility]) Vital Signs (Past 12 Hours) Vital Signs Temp Pulse Pulse Resp BP BP Pulse Ox 02/29/20 07:54 36.7 C 75 22 167/87 H 95 02/29/20 05:42 36.5 C 74 19 176/100 H 96 02/29/20 05:06 76 16 168/102 H 95 02/29/20 03:08 74 16 160/98 H 97 02/29/20 02:30 187/114 H 94 02/29/20 02:00 158/93 H 98 02/29/20 01:25 91 02/29/20 00:47 36.9 C 78 18 179/100 H 92 Laboratory Results Laboratory Results - last 24 hr 02/29/20 02/29/20 02/29/20 01:21 01:21 01:21 WBC 5.54 RBC 3.74 L Hgb 12.1 L Hct 35.6 L MCV 95.2 MCH 32.4 MCHC 34.0 RDW Std Deviation 46.0 RDW Coeff of Alberto 13.2 Plt Count 202 MPV 9.6 Immature Gran % (Auto) 0.0 Neut % (Auto) 51.8 Lymph % (Auto) 34.1 [place] % (Auto) 11.4 Eos % (Auto) 2.2 Baso % (Auto) 0.5 Neut # (Auto) 2.87 Lymph # (Auto) 1.89 [place] # (Auto) 0.63 H Eos # (Auto) 0.12 Baso # (Auto) 0.03 Immature Gran # (Auto) 0.00 Sodium 138 Potassium 3.5 Chloride 100 Carbon Dioxide 30 Anion Gap 8.0 BUN 11 Creatinine 0.92 Est Cr Clr Drug Dosing 116.8 Est GFR ( Amer) 108.1 Est GFR (Non-Af Amer) 93.3 BUN/Creatinine Ratio 12.1 Glucose 201 H Estimat Average Glucose Hemoglobin A1c Calcium 7.9 L Magnesium Total Bilirubin 0.6 AST 78 H ALT 54 Alkaline Phosphatase 117 Troponin I 0.107 H* NT-Pro-B Natriuret Pep 2171 H Total Protein 6.8 Albumin 2.4 L Globulin 4.4 H Albumin/Globulin Ratio 0.5 L Vitamin B12 Urine Color Urine Appearance Urine pH Ur Specific [place] Urine Protein Urine Glucose (UA) Urine Ketones Urine Blood Urine Nitrite Urine Bilirubin Urine Urobilinogen Ur Leukocyte Esterase Urine WBC (Auto) Urine RBC (Auto) U Hyaline Cast (Auto) U Epithel Cells (Auto) Urine Bacteria (Auto) Ethyl Alcohol mg/dL 250.0 H SARS-CoV-2 Ag (Rapid) 02/29/20 02/29/20 02/29/20 01:34 07:22 07:22 WBC 3.80 L RBC 3.85 L Hgb 12.2 L Hct 36.8 L MCV 95.6 MCH 31.7 MCHC 33.2 RDW Std Deviation 46.7 H RDW Coeff of Alberto 13.4 Plt Count 191 MPV 9.7 Immature Gran % (Auto) 0.0 Neut % (Auto) 39.2 Lymph % (Auto) 43.7 [place] % (Auto) 12.4 Eos % (Auto) 4.2 Baso % (Auto) 0.5 Neut # (Auto) 1.49 Lymph # (Auto) 1.66 [place] # (Auto) 0.47 Eos # (Auto) 0.16 Baso # (Auto) 0.02 Immature Gran # (Auto) 0.00 Sodium 140 Potassium 3.8 Chloride 103 Carbon Dioxide 32 Anion Gap 5.0 BUN 11 Creatinine 0.99 Est Cr Clr Drug Dosing 107.0 Est GFR ( Amer) 99.0 Est GFR (Non-Af Amer) 85.4 BUN/Creatinine Ratio 11.2 Glucose 162 H Estimat Average Glucose Hemoglobin A1c Calcium 8.3 L Magnesium 1.4 L Total Bilirubin AST ALT Alkaline Phosphatase Troponin I 0.107 H* NT-Pro-B Natriuret Pep Total Protein Albumin Globulin Albumin/Globulin Ratio Vitamin B12 Urine Color Yellow Urine Appearance Clear Urine pH 5.5 Ur Specific [place] 1.012 Urine Protein 3+ H Urine Glucose (UA) Negative Urine Ketones Negative Urine Blood 2+ H Urine Nitrite Negative Urine Bilirubin Negative Urine Urobilinogen Negative Ur Leukocyte Esterase Negative Urine WBC (Auto) 1-5 Urine RBC (Auto) 0-4 U Hyaline Cast (Auto) 1-5 U Epithel Cells (Auto) 10-20 H Urine Bacteria (Auto) Negative Ethyl Alcohol mg/dL SARS-CoV-2 Ag (Rapid) 02/29/20 02/29/20 02/29/20 07:22 07:22 Unknown WBC RBC Hgb Hct MCV MCH MCHC RDW Std Deviation RDW Coeff of Alberto Plt Count MPV Immature Gran % (Auto) Neut % (Auto) Lymph % (Auto) [place] % (Auto) Eos % (Auto) Baso % (Auto) Neut # (Auto) Lymph # (Auto) [place] # (Auto) Eos # (Auto) Baso # (Auto) Immature Gran # (Auto) Sodium Potassium Chloride Carbon Dioxide Anion Gap BUN Creatinine Est Cr Clr Drug Dosing Est GFR ( Amer) Est GFR (Non-Af Amer) BUN/Creatinine Ratio Glucose Estimat Average Glucose 180 Hemoglobin A1c 7.9 H Calcium Magnesium Total Bilirubin AST ALT Alkaline Phosphatase Troponin I NT-Pro-B Natriuret Pep Total Protein Albumin Globulin Albumin/Globulin Ratio Vitamin B12 422 Urine Color Urine Appearance Urine pH Ur Specific [place] Urine Protein Urine Glucose (UA) Urine Ketones Urine Blood Urine Nitrite Urine Bilirubin Urine Urobilinogen Ur Leukocyte Esterase Urine WBC (Auto) Urine RBC (Auto) U Hyaline Cast (Auto) U Epithel Cells (Auto) Urine Bacteria (Auto) Ethyl Alcohol mg/dL SARS-CoV-2 Ag (Rapid) Negative Medications Administered Current Inpatient Medications Aspirin (Aspirin 81 Mg Ectab) [facility] [place]: 03/30/20 08:59 Last Admin: 02/29/20 08:17 Dose: 81 mg Documented by: Atorvastatin Calcium (Atorvastatin 40 Mg Tab) [facility] [place] Stop: 03/30/20 08:59 Last Admin: 02/29/20 08:17 Dose: 40 mg Documented by: Buprenorphine/Naloxone (Buprenorphine/Naloxone 8/2 Mg Tab) 1 tab SL BID [facility] Stop: 03/30/20 08:59 Last Admin: 02/29/20 08:23 Dose: 1 tab Documented by: Clopidogrel Bisulfate (Clopidogrel Bisulfate 75 Mg Tab) 75 mg PO QAM [facility] Stop: 03/30/20 08:59 Last Admin: 02/29/20 08:17 Dose: 75 mg Documented by: Folic Acid (Folic Acid 1 Mg Tab) 1 mg PO QAM [facility] Stop: 03/30/20 08:59 Last Admin: 02/29/20 08:17 Dose: 1 mg Documented by: Gabapentin (Gabapentin 600 Mg Tab) 600 mg PO Q6H [facility] Stop: 02/29/20 18:01 Gabapentin (Gabapentin 600 Mg Tab) 600 mg PO Q8H [facility] Stop: 03/01/20 18:01 Gabapentin (Gabapentin 600 Mg Tab) 600 mg PO Q12H [facility] Stop: 03/02/20 18:01 Gabapentin (Gabapentin 600 Mg Tab) 600 mg PO Q24H [facility] Stop: 03/03/20 18:01 Heparin Sodium (Porcine) (Heparin Sod 5,000 Unit/0.5 Ml Vial) 5,000 units SQ Q8 [facility] Stop: 03/30/20 05:59 Last Admin: 02/29/20 06:32 Dose: 5,000 units Documented by: Lorazepam (Ativan) 1 mg in 2 mls @ 2 mls/min IV UD PRN; Protocol PRN Reason: EtOH Withdrawl AWSS Score 6,7 Stop: 03/30/20 05:40 Lorazepam (Ativan) 2 mg in 4 mls @ 4 mls/min IV UD PRN; Protocol PRN Reason: EtOH Withdrawl AWSS Score 8,9 Stop: 03/30/20 05:40 Lorazepam (Ativan) 3 mg in 6 mls @ 4 mls/min IV ONCE PRN; Protocol PRN Reason: EtOH Withdrawl AWSS Score >=10 Stop: 03/30/20 05:40 Furosemide 40 mg/ Syringe 4 mls @ 4 mls/min IV DAILY [facility] Stop: 03/30/20 08:59 Last Admin: 02/29/20 08:18 Dose: 4 mls/min Documented by: Magnesium Sulfate/Dextrose (Magnesium Sulfate / D5w) 1 gm in 100 mls @ 50 mls/hr IV 0930 ONE Stop: 02/29/20 11:29 Last Infusion: 02/29/20 11:11 Dose: Infused Documented by: Insulin Aspart (Insulin Aspart 100 Units/Ml 3 Ml Pen) 0 units SC ACHS [facility] Stop: 03/30/20 07:29 Last Admin: 02/29/20 08:16 Dose: 4 units Documented by: Insulin Detemir (Insulin Detemir Flexpen/Flex Touch 100 Units/Ml 3ml) 30 units SQ HS [facility] Stop: 03/30/20 20:59 Lisinopril (Lisinopril 40 Mg Tab) 40 mg PO [facility] Stop: 03/30/20 08:59 Last Admin: 02/29/20 08:17 Dose: 40 mg Documented by: Metoprolol Succinate (Metoprolol Succ 50mg Ext Rel Tab) 50 mg PO [facility] Stop: 03/30/20 08:59 Last Admin: 02/29/20 06:32 Dose: 50 mg Documented by: Miscellaneous (Remove Nicoderm Patch) 1 ea N/A DAILY@0859 [facility] Stop: 03/31/20 08:58 Multivitamins/Minerals (Cerovite Adv Formula Tab) 1 tab PO [facility] Stop: 03/30/20 08:59 Last Admin: 02/29/20 08:17 Dose: 1 tab Documented by: Nicotine (Nicotine 21 Mg/24 Hr Tdsy) 21 mg TD [facility] Stop: 03/30/20 08:59 Last Admin: 02/29/20 08:18 Dose: 21 mg Documented by: Nitroglycerin (Nitroglycerin Sl 0.4 Mg/Tab Tab) 0.4 mg SL UD PRN PRN Reason: Chest Pain Stop: 03/30/20 05:40 Ondansetron HCl (Ondansetron Inj 2 Mg/Ml 2 Ml Vial) 4 mg IV Q6H PRN PRN Reason: Nausea Stop: 03/30/20 05:40 Thiamine HCl (Thiamine Hcl 100 Mg Tab) [facility] [place]: 03/30/20 08:59 Last Admin: 02/29/20 08:17 Dose: 100 mg Documented by: Trazodone HCl (Trazodone Hcl 50 Mg Tab) 50 mg PO HS PRN PRN Reason: Insomnia Stop: 03/30/20 05:40 Venlafaxine HCl (Venlafaxine Hcl Xr 150 Mg Capxr) 150 mg PO QAM [facility] Stop: 03/30/20 08:59 Last Admin: 02/29/20 08:17 Dose: 150 mg Documented by:
[2020-02-29] MEDS ORDERED: FUROSEMIDE 40 MG/4 ML VIAL IV SCH (09:00)
--- NOTE | 2020-02-29 09:01 | XRay Report ---
SINGLE VIEW CHEST CLINICAL HISTORY: Dyspnea. FINDINGS: An AP, portable, upright chest radiograph is compared to study dated 01/18/2020 and correla britton with chest CT dated 01/16/2020. The heart is enlarged. The pulmonary vasculature is noncongested. Chronic interstitial thickening is similar to previous. Scarring/atelectasis is seen at the lung bas es. No airspace consolidation or large pleural effusion is identified. No pneumothorax is seen. The b pepe thorax is grossly intact. IMPRESSION: Cardiomegaly with no acute cardiopulmonary abnormality. ACT 112: Negative or not required by law. Electronically signed by: Ivan Sprague M.D. 02/29/2020 9:00 AM
[2020-02-29] MEDS ORDERED: MAGNESIUM SULFATE / D5W 1 GM/100 ML BAG IV ONE (09:30)
[2020-02-29] MEDS: LORazepam 1 MG/2 ML VIAL IV PRN ×2 (11:37→15:52)
[2020-02-29] MEDS: GABAPENTIN 600 MG TAB PO SCH ×2 (11:38→17:30)
--- NOTE | 2020-02-29 13:26 | Ultrasound Report ---
ULTRASOUND BILATERAL LOWER EXTREMITY VENOUS CLINICAL HISTORY: Lower extremity edema. COMPARISON STUDY: Bilateral lower extremity venous ultrasound dated 01/16/2020. TECHNIQUE: Real-time, grayscale, and color Doppler sonography of the deep veins of the right and left lower extremity was performed from the inguinal crease to the calf. Compression and augmentation wer e utilized. FINDINGS: There is no sonographic evidence of deep venous thrombosis identified in the right or left lower extremity. The common femoral, superficial femoral, and popliteal veins are patent and normally compressible bilaterally. The greater saphenous vein and the profunda femoris vein at the junction w ith the common femoral vein are clear in both legs. The visualized calf veins are patent bilaterally. IMPRESSION: There is no sonographic evidence of deep venous thrombosis identified in the right or lef t lower extremity. ACT 112: Negative or not required by law. Electronically signed by: Ivan Sprague M.D. 02/29/2020 1:24 PM
--- NOTE | 2020-02-29 13:27 | Ultrasound Report ---
ULTRASOUND RIGHT UPPER QUADRANT ABDOMEN CLINICAL HISTORY: Cirrhosis and ascites. COMPARISON STUDY: Abdominal ultrasound dated 12/11/2017. TECHNIQUE: Real-time, grayscale, and color flow sonography of the right upper quadrant of the abdomen was performed. Images are reviewed in the transverse and longitudinal planes. FINDINGS: Liver: The liver is enlarged and demonstrates heterogeneously increased echotexture consistent with s evere hepatic steatosis. There is no intrahepatic biliary ductal dilatation. The main portal vein is patent. Gallbladder: The gallbladder is partially contracted and normal in appearance. No gallstones are iden tified. There is no gallbladder wall thickening or pericholecystic fluid. A sonographic Muhammad's sign is reportedly absent. The common bile duct measures up to 0.4 cm in diameter. Pancreas: Visualized portions of the pancreatic head and body are normal in appearance. Right kidney: Survey images of the right kidney demonstrate normal size and echotexture. There is no hydronephrosis. Ascites: None. IMPRESSION: Hepatomegaly and severe hepatic steatosis. ACT 112: Negative or not required by law. Electronically signed by: Ivan Sprague M.D. 02/29/2020 1:26 PM
[2020-02-29] MEDS: INSULIN DETEMIR FLEXPEN/FLEX TOUCH 100 UNITS/ML 3ML SQ SCH (20:53)
--- NOTE | 2020-02-29 23:29 | Hospitalist Progress Note ---
Date of Service February 29, 2020 Assessment & Plan (1) Dyspnea: (2) CAD (coronary artery disease): (3) Elevated troponin: (4) Cardiomyopathy: (5) HTN (hypertension): (6) Edema: (7) CATALINO (obstructive sleep apnea): (8) Diabetes mellitus type 2 with complications: (9) Alcohol withdrawal: (10) Alcohol abuse: (11) Neuropathy: (12) Smoking: (13) DVT prophylaxis: (14) Discharge planning issues: Admission and Anticipated Discharge Date Admission Date: February 29, 2020 Subjective Recheck for SOB and other problems. Patient seen in their room around 1410. Admitted early this morning with worsening SOB and lower extremity edema. History of ischemic cardiomyopathy. No chest pain. Persistent dependent edema. Ongoing SOB. No fever or cough. History of alcohol abuse. Last consumption night of admission. Having some tremors, no sweats or hallucinations. History of tobacco use. Nicotine patch prescribed. Physical Exam Constitutional: no acute distress Eyes: + anicteric sclerae Respiratory: normal respiratory effort, lungs clear to auscultation Cardiovascular: Rate/Rhythm: regular rate and regular rhythm Heart Sounds: no gallop (none appreciated) Vessels: no JVD Extremities: + edema (2-3+ pretibial edema); no calf tenderness Gastrointestinal (Abdomen): normal bowel sounds, soft, nontender, no hepatosplenomegaly Musculoskeletal: Extremities: no cyanosis Skin: no rashes, warm and dry Neurologic: Motor/Sensory: + tremor Psychiatric: Orientation: alert and oriented x 3 Results & Data Results & Data ([facility]) Vital Signs (Past 12 Hours) Vital Signs Temp Pulse Resp BP Pulse Ox 02/29/20 19:33 36.9 C 73 18 189/96 H 90 02/29/20 17:33 37.2 C 90 18 163/86 H 92 02/29/20 15:04 37.2 C 76 20 166/100 H 95 02/29/20 13:55 36.7 C 78 18 186/97 H 98 Laboratory Results Laboratory Results - last 24 hr 02/29/20 02/29/20 02/29/20 01:21 01:21 01:21 WBC 5.54 RBC 3.74 L Hgb 12.1 L Hct 35.6 L MCV 95.2 MCH 32.4 MCHC 34.0 RDW Std Deviation 46.0 RDW Coeff of Alberto 13.2 Plt Count 202 MPV 9.6 Immature Gran % (Auto) 0.0 Neut % (Auto) 51.8 Lymph % (Auto) 34.1 [place] % (Auto) 11.4 Eos % (Auto) 2.2 Baso % (Auto) 0.5 Neut # (Auto) 2.87 Lymph # (Auto) 1.89 [place] # (Auto) 0.63 H Eos # (Auto) 0.12 Baso # (Auto) 0.03 Immature Gran # (Auto) 0.00 Sodium 138 Potassium 3.5 Chloride 100 Carbon Dioxide 30 Anion Gap 8.0 BUN 11 Creatinine 0.92 Est Cr Clr Drug Dosing 116.8 Est GFR ( Amer) 108.1 Est GFR (Non-Af Amer) 93.3 BUN/Creatinine Ratio 12.1 Glucose 201 H POC Glucose Estimat Average Glucose Hemoglobin A1c Calcium 7.9 L Magnesium Total Bilirubin 0.6 AST 78 H ALT 54 Alkaline Phosphatase 117 Troponin I 0.107 H* NT-Pro-B Natriuret Pep 2171 H Total Protein 6.8 Albumin 2.4 L Globulin 4.4 H Albumin/Globulin Ratio 0.5 L Vitamin B12 Urine Color Urine Appearance Urine pH Ur Specific [place] Urine Protein Urine Glucose (UA) Urine Ketones Urine Blood Urine Nitrite Urine Bilirubin Urine Urobilinogen Ur Leukocyte Esterase Urine WBC (Auto) Urine RBC (Auto) U Hyaline Cast (Auto) U Epithel Cells (Auto) Urine Bacteria (Auto) Ethyl Alcohol mg/dL 250.0 H SARS-CoV-2 Ag (Rapid) 02/29/20 02/29/20 02/29/20 01:34 07:22 07:22 WBC 3.80 L RBC 3.85 L Hgb 12.2 L Hct 36.8 L MCV 95.6 MCH 31.7 MCHC 33.2 RDW Std Deviation 46.7 H RDW Coeff of Alberto 13.4 Plt Count 191 MPV 9.7 Immature Gran % (Auto) 0.0 Neut % (Auto) 39.2 Lymph % (Auto) 43.7 [place] % (Auto) 12.4 Eos % (Auto) 4.2 Baso % (Auto) 0.5 Neut # (Auto) 1.49 Lymph # (Auto) 1.66 [place] # (Auto) 0.47 Eos # (Auto) 0.16 Baso # (Auto) 0.02 Immature Gran # (Auto) 0.00 Sodium 140 Potassium 3.8 Chloride 103 Carbon Dioxide 32 Anion Gap 5.0 BUN 11 Creatinine 0.99 Est Cr Clr Drug Dosing 107.0 Est GFR ( Amer) 99.0 Est GFR (Non-Af Amer) 85.4 BUN/Creatinine Ratio 11.2 Glucose 162 H POC Glucose Estimat Average Glucose Hemoglobin A1c Calcium 8.3 L Magnesium 1.4 L Total Bilirubin AST ALT Alkaline Phosphatase Troponin I 0.107 H* NT-Pro-B Natriuret Pep Total Protein Albumin Globulin Albumin/Globulin Ratio Vitamin B12 Urine Color Yellow Urine Appearance Clear Urine pH 5.5 Ur Specific [place] 1.012 Urine Protein 3+ H Urine Glucose (UA) Negative Urine Ketones Negative Urine Blood 2+ H Urine Nitrite Negative Urine Bilirubin Negative Urine Urobilinogen Negative Ur Leukocyte Esterase Negative Urine WBC (Auto) 1-5 Urine RBC (Auto) 0-4 U Hyaline Cast (Auto) 1-5 U Epithel Cells (Auto) 10-20 H Urine Bacteria (Auto) Negative Ethyl Alcohol mg/dL SARS-CoV-2 Ag (Rapid) 02/29/20 02/29/20 02/29/20 07:22 07:22 11:21 WBC RBC Hgb Hct MCV MCH MCHC RDW Std Deviation RDW Coeff of Alberto Plt Count MPV Immature Gran % (Auto) Neut % (Auto) Lymph % (Auto) [place] % (Auto) Eos % (Auto) Baso % (Auto) Neut # (Auto) Lymph # (Auto) [place] # (Auto) Eos # (Auto) Baso # (Auto) Immature Gran # (Auto) Sodium Potassium Chloride Carbon Dioxide Anion Gap BUN Creatinine Est Cr Clr Drug Dosing Est GFR ( Amer) Est GFR (Non-Af Amer) BUN/Creatinine Ratio Glucose POC Glucose 157 H Estimat Average Glucose 180 Hemoglobin A1c 7.9 H Calcium Magnesium Total Bilirubin AST ALT Alkaline Phosphatase Troponin I NT-Pro-B Natriuret Pep Total Protein Albumin Globulin Albumin/Globulin Ratio Vitamin B12 422 Urine Color Urine Appearance Urine pH Ur Specific [place] Urine Protein Urine Glucose (UA) Urine Ketones Urine Blood Urine Nitrite Urine Bilirubin Urine Urobilinogen Ur Leukocyte Esterase Urine WBC (Auto) Urine RBC (Auto) U Hyaline Cast (Auto) U Epithel Cells (Auto) Urine Bacteria (Auto) Ethyl Alcohol mg/dL SARS-CoV-2 Ag (Rapid) 02/29/20 02/29/2002/28/20 13:22 16:05 18:58 WBC RBC Hgb Hct MCV MCH MCHC RDW Std Deviation RDW Coeff of Alberto Plt Count MPV Immature Gran % (Auto) Neut % (Auto) Lymph % (Auto) [place] % (Auto) Eos % (Auto) Baso % (Auto) Neut # (Auto) Lymph # (Auto) [place] # (Auto) Eos # (Auto) Baso # (Auto) Immature Gran # (Auto) Sodium Potassium Chloride Carbon Dioxide Anion Gap BUN Creatinine Est Cr Clr Drug Dosing Est GFR ( Amer) Est GFR (Non-Af Amer) BUN/Creatinine Ratio Glucose POC Glucose 166 H Estimat Average Glucose Hemoglobin A1c Calcium Magnesium Total Bilirubin AST ALT Alkaline Phosphatase Troponin I 0.115 H* 0.094 H* NT-Pro-B Natriuret Pep Total Protein Albumin Globulin Albumin/Globulin Ratio Vitamin B12 Urine Color Urine Appearance Urine pH Ur Specific [place] Urine Protein Urine Glucose (UA) Urine Ketones Urine Blood Urine Nitrite Urine Bilirubin Urine Urobilinogen Ur Leukocyte Esterase Urine WBC (Auto) Urine RBC (Auto) U Hyaline Cast (Auto) U Epithel Cells (Auto) Urine Bacteria (Auto) Ethyl Alcohol mg/dL SARS-CoV-2 Ag (Rapid) 02/29/20 02/29/20 20:31 Unknown WBC RBC Hgb Hct MCV MCH MCHC RDW Std Deviation RDW Coeff of Alberto Plt Count MPV Immature Gran % (Auto) Neut % (Auto) Lymph % (Auto) [place] % (Auto) Eos % (Auto) Baso % (Auto) Neut # (Auto) Lymph # (Auto) [place] # (Auto) Eos # (Auto) Baso # (Auto) Immature Gran # (Auto) Sodium Potassium Chloride Carbon Dioxide Anion Gap BUN Creatinine Est Cr Clr Drug Dosing Est GFR ( Amer) Est GFR (Non-Af Amer) BUN/Creatinine Ratio Glucose POC Glucose 183 H Estimat Average Glucose Hemoglobin A1c Calcium Magnesium Total Bilirubin AST ALT Alkaline Phosphatase Troponin I NT-Pro-B Natriuret Pep Total Protein Albumin Globulin Albumin/Globulin Ratio Vitamin B12 Urine Color Urine Appearance Urine pH Ur Specific [place] Urine Protein Urine Glucose (UA) Urine Ketones Urine Blood Urine Nitrite Urine Bilirubin Urine Urobilinogen Ur Leukocyte Esterase Urine WBC (Auto) Urine RBC (Auto) U Hyaline Cast (Auto) U Epithel Cells (Auto) Urine Bacteria (Auto) Ethyl Alcohol mg/dL SARS-CoV-2 Ag (Rapid) Negative
[2020-03-01] MEDS: LORazepam 1 MG/2 ML VIAL IV PRN ×3 (00:11→21:22)
[2020-03-01] MEDS: cloNIDine HCL 0.1 MG TAB PO PRN ×3 (00:11→21:22)
[2020-03-01] MEDS: GABAPENTIN 600 MG TAB PO SCH ×3 (01:23→18:02)
[2020-03-01] MEDS: HEPARIN SOD 5,000 UNIT/0.5 ML VIAL SQ SCH ×3 (06:07→21:23)
[2020-03-01 06:20] LABS: BUN Creatinine Ratio 22.4 (10-20); Calcium 8.6 mg/dl (8.5-10.1); Creatinine Clr Calc Pharmacy 112.7 ml/min; Est GFR (African American) 105.4; Est GFR (Non-African American) 90.9; Magnesium 1.7 mg/dl (1.8-2.4); Phosphorus 3.3 mg/dl (2.5-4.9); Potassium 4.9 mmol/L (3.5-5.1)
[2020-03-01] MEDS: INSULIN ASPART 100 UNITS/ML 3 ML PEN SC SCH ×4 (08:26→21:24)
[2020-03-01] MEDS: CLOPIDOGREL BISULFATE 75 MG TAB PO SCH (08:28)
[2020-03-01] MEDS: THIAMINE HCL 100 MG TAB PO SCH (08:28)
[2020-03-01] MEDS: FUROSEMIDE 40 MG in SYRINGE 0 ML IV SCH (08:28)
[2020-03-01] MEDS: FOLIC ACID 1 MG TAB PO SCH (08:28)
[2020-03-01] MEDS: lisinopril 40 MG TAB PO SCH (08:28)
[2020-03-01] MEDS: CEROVITE ADV FORMULA TAB PO SCH (08:28)
[2020-03-01] MEDS: NICOTINE 21 MG/24 HR TDSY TD SCH (08:28)
[2020-03-01] MEDS: METOPROLOL SUCC 50MG EXT REL TAB PO SCH (08:28)
[2020-03-01] MEDS: VENLAFAXINE HCL XR 150 MG CAPXR PO SCH (08:29)
[2020-03-01] MEDS: ATORVASTATIN 40 MG TAB PO SCH (08:29)
[2020-03-01] MEDS: ASPIRIN 81 MG ECTAB PO SCH (08:29)
[2020-03-01] MEDS: BUPRENORPHINE/NALOXONE 8/2 MG TAB SL SCH ×2 (08:33→21:22)
--- NOTE | 2020-03-01 10:13 | Cardiology Progress Note ---
Date of Service March 01, 2020 Assessment & Plan (1) CAD (coronary artery disease): (2) Alcohol abuse: (3) Type 2 diabetes mellitus: (4) CATALINO (obstructive sleep apnea): (5) Cirrhosis of liver: The patient continues to diuresis and his lower extremity edema is improving. The patient is listed as having sleep apnea but he has no idea. He does not use CPAP at home. Although his lower extremity edema is most likely due to alcoholic liver disease I think an evaluation for sleep apnea in the future would be beneficial as I believe he is at risk which may be contributing to his lower extremity edema. Otherwise he is doing well and I would continue the diuretics. Admission and Anticipated Discharge Date Admission Date: February 29, 2020 Subjective The patient is a little less agitated today. He is feeling better. Review of Systems Review of Systems: All systems reviewed & are unremarkable except as noted in HPI & below Nothing additional to add. Physical Exam Physical Exam: General: no acute distress and stated age Head: normocephalic, no masses, lesions, tenderness or abnormalities Eyes: conjunctiva are pink and non-injected, sclera clear Neck: supple, no adenopathy, no bruits, normal jugular venous pulse, no hepatojugular reflux Chest: normal shape and normal respiratory effort Lungs: clear to auscultation and percussion Cardiac Exam: - regular rate & rhythm, no murmurs gallops or rubs - normal S1, normal S2 Pulses: 2(+) throughout Abdomen: abdomen soft, non-tender, no abnormal masses and no hepatosplenomegaly Musculoskeletal: no gait disturbance, no joint inflammation, no deforming arthritis Extremities: Bilateral lower extremity edema. Neuro: grossly normal exam Results & Data ([facility]) Vital Signs (Past 12 Hours) Vital Signs Temp Pulse Resp BP Pulse Ox 03/01/20 07:26 36.7 C 79 20 177/99 H 97 03/01/20 03:24 36.9 C 83 18 161/94 H 93 03/01/20 01:23 178/90 H 02/29/20 23:45 37.2 C 77 20 187/97 H 95 Laboratory Results Laboratory Results - last 24 hr 02/29/20 02/29/20 02/29/20 11:21 13:22 16:05 Sodium Potassium Chloride Carbon Dioxide Anion Gap BUN Creatinine Est Cr Clr Drug Dosing Est GFR ( Amer) Est GFR (Non-Af Amer) BUN/Creatinine Ratio Glucose POC Glucose 157 H 166 H Calcium Phosphorus Magnesium Troponin I 0.115 H* 02/29/20 02/29/20 03/01/20 18:58 20:31 05:42 Sodium 135 L Potassium 4.9 D Chloride 98 Carbon Dioxide 37 H Anion Gap 0 L BUN 21 H D Creatinine 0.94 Est Cr Clr Drug Dosing 112.7 Est GFR ( Amer) 105.4 Est GFR (Non-Af Amer) 90.9 BUN/Creatinine Ratio 22.4 H Glucose 252 H POC Glucose 183 H Calcium 8.6 Phosphorus 3.3 Magnesium 1.7 L Troponin I 0.094 H* 03/01/20 07:28 Sodium Potassium Chloride Carbon Dioxide Anion Gap BUN Creatinine Est Cr Clr Drug Dosing Est GFR ( Amer) Est GFR (Non-Af Amer) BUN/Creatinine Ratio Glucose POC Glucose 262 H Calcium Phosphorus Magnesium Troponin I Medications Administered Current Inpatient Medications Aspirin (Aspirin 81 Mg Ectab) 81 mg PO [facility] Stop: 03/30/20 08:59 Last Admin: 03/01/20 08:29 Dose: 81 mg Documented by: Atorvastatin Calcium (Atorvastatin 40 Mg Tab) 40 mg PO [facility] Stop: 03/30/20 08:59 Last Admin: 03/01/20 08:29 Dose: 40 mg Documented by: Buprenorphine/Naloxone (Buprenorphine/Naloxone 8/2 Mg Tab) 1 tab SL BID [facility] Stop: 03/30/20 08:59 Last Admin: 03/01/20 08:33 Dose: 1 tab Documented by: Clonidine HCl (Clonidine Hcl 0.1 Mg Tab) 0.1 mg PO Q4H PRN PRN Reason: Hypertension Stop: 03/30/20 23:52 Last Admin: 03/01/20 00:11 Dose: 0.1 mg Documented by: Clopidogrel Bisulfate (Clopidogrel Bisulfate 75 Mg Tab) 75 mg PO [facility] Stop: 03/30/20 08:59 Last Admin: 03/01/20 08:28 Dose: 75 mg Documented by: Folic Acid (Folic Acid 1 Mg Tab) 1 mg PO [facility] Stop: 03/30/20 08:59 Last Admin: 03/01/20 08:28 Dose: 1 mg Documented by: Gabapentin (Gabapentin 600 Mg Tab) 600 mg PO Q8H [facility] Stop: 03/01/20 18:01 Last Admin: 03/01/20 01:23 Dose: 600 mg Documented by: Gabapentin (Gabapentin 600 Mg Tab) 600 mg PO Q12H [facility] Stop: 03/02/20 18:01 Gabapentin (Gabapentin 600 Mg Tab) 600 mg PO Q24H [facility] Stop: 03/03/20 18:01 Heparin Sodium (Porcine) (Heparin Sod 5,000 Unit/0.5 Ml Vial) 5,000 units SQ Q8 [facility] Stop: 03/30/20 05:59 Last Admin: 03/01/20 06:07 Dose: 5,000 units Documented by: Lorazepam (Ativan) 1 mg in 2 mls @ 2 mls/min IV UD PRN; Protocol PRN Reason: EtOH Withdrawl AWSS Score 6,7 Stop: 03/30/20 05:40 Last Admin: 03/01/20 08:24 Dose: 2 mls/min Documented by: Lorazepam (Ativan) 2 mg in 4 mls @ 4 mls/min IV UD PRN; Protocol PRN Reason: EtOH Withdrawl AWSS Score 8,9 Stop: 03/30/20 05:40 Lorazepam (Ativan) 3 mg in 6 mls @ 4 mls/min IV ONCE PRN; Protocol PRN Reason: EtOH Withdrawl AWSS Score >=10 Stop: 03/30/20 05:40 Furosemide 40 mg/ Syringe 4 mls @ 4 mls/min IV DAILY [facility] Stop: 03/30/20 08:59 Last Admin: 03/01/20 08:28 Dose: 4 mls/min Documented by: Insulin Aspart (Insulin Aspart 100 Units/Ml 3 Ml Pen) 0 units SC ACHS [facility] Stop: 03/30/20 07:29 Last Admin: 03/01/20 08:26 Dose: 10 units Documented by: Insulin Detemir (Insulin Detemir Flexpen/Flex Touch 100 Units/Ml 3ml) 30 units SQ HS [facility] Stop: 03/30/20 20:59 Last Admin: 02/29/20 20:53 Dose: 30 units Documented by: Lisinopril (Lisinopril 40 Mg Tab) [facility] [place] Stop: 03/30/20 08:59 Last Admin: 03/01/20 08:28 Dose: 40 mg Documented by: Metoprolol Succinate (Metoprolol Succ 50mg Ext Rel Tab) 50 mg PO QAM [facility] Stop: 03/30/20 08:59 Last Admin: 03/01/20 08:28 Dose: 50 mg Documented by: Miscellaneous (Remove Nicoderm Patch) 1 ea N/A DAILY@59 [facility] Stop: 03/31/20 08:58 Last Admin: 03/01/20 08:27 Dose: 1 ea Documented by: Multivitamins/Minerals (Cerovite Adv Formula Tab) 1 tab PO QAM [facility] Stop: 03/30/20 08:59 Last Admin: 03/01/20 08:28 Dose: 1 tab Documented by: Nicotine (Nicotine 21 Mg/24 Hr Tdsy) 21 mg TD [facility] Stop: 03/30/20 08:59 Last Admin: 03/01/20 08:28 Dose: 21 mg Documented by: Nitroglycerin (Nitroglycerin Sl 0.4 Mg/Tab Tab) 0.4 mg SL UD PRN PRN Reason: Chest Pain Stop: 03/30/20 05:40 Ondansetron HCl (Ondansetron Inj 2 Mg/Ml 2 Ml Vial) 4 mg IV Q6H PRN PRN Reason: Nausea Stop: 03/30/20 05:40 Thiamine HCl (Thiamine Hcl 100 Mg Tab) 100 mg PO [facility] Stop: 03/30/20 08:59 Last Admin: 03/01/20 08:28 Dose: 100 mg Documented by: Trazodone HCl (Trazodone Hcl 50 Mg Tab) 50 mg PO HS PRN PRN Reason: Insomnia Stop: 03/30/20 05:40 Venlafaxine HCl (Venlafaxine Hcl Xr 150 Mg Capxr) 150 mg PO [facility] Stop: 03/30/20 08:59 Last Admin: 03/01/20 08:29 Dose: 150 mg Documented by:
[2020-03-01] MEDS: INSULIN DETEMIR FLEXPEN/FLEX TOUCH 100 UNITS/ML 3ML SQ SCH (21:22)
--- NOTE | 2020-03-01 23:35 | Hospitalist Progress Note ---
Date of Service March 01, 2020 Assessment & Plan (1) CAD (coronary artery disease): CAD, s/p non-STEMI with PCI. Troponins slightly elevated with peak of 0.115. Cardiology consulted. Acute coronary syndrome unlikely. Dobutamine stress echo 01/23/20 did not show any stress-induced ischemia. No need for further evaluation at this time. Continue aspirin, clopidogrel, metoprolol, statin. (2) Cardiomyopathy: History of ischemic cardiomyopathy. Echo 01/01/19 showed LVEF 45-50%. Echo 01/17/20 showed LVEF 60-65%. Presented with fluid overload and edema. Pro-BNP elevated, but lungs clear by exam and chest x-ray. Fluid retention & edema probably multifactorial. Continue metoprolol, lisinopril. Continue IV furosemide. (3) HTN (hypertension): BP's elevated- probably due to fluid overload and alcohol withdrawal. Continue metoprolol, lisinopril, clonidine, diuretics. (4) Edema: Marked dependent edema. History of cardiomyopathy, but does not appear to have decompensated LV CHF. Venous duplex lower extremities negative for DVT. ? right-sided heart failure due to sleep apnea, although RV looked OK on last echo. ? related to liver disease, although no radiographic evidence of cirrhosis or portal hypertension. Hypoalbuminemia could be contributing factor. Nutritional due to alcoholism +/- ? nephrotic syndrome with 3+ proteinuria. Gabapentin could be contributing factor. Consider taper and discontinue. Continue IV furosemide with caution not to over-diurese. (5) CATALINO (obstructive sleep apnea): Noncompliant with CPAP. (6) Dyspnea: Complains of dyspnea. No pulmonary edema or infiltrates on chest x-ray. SARS-CoV-2 Ag screen negative. Venous duplex lower extremities negative for DVT. Doubt PE (had similar symptoms 01/16/20 with CTA chest negative for PE). Smoker. May have COPD. Consider PFT's. Fluid overload may be contributing factor. Diurese, follow. (7) Proteinuria: UA shows 3+ protein. Serum albumin 2.4. Probable diabetic neuropathy. ? other pathology. Check prior eval. (8) Diabetes mellitus type 2 with complications: DM type 2 managed with insulin and dulaglutide at home. Hgb A1c = 7.9. FBS today = 262. Continue Levemir and NovoLog. Adjust dosing as necessary. (9) Alcohol withdrawal: Drinks 1/2 gallon of vodka daily. Last consumption was 2 days ago. Started on alcohol withdrawal protocol with gabapentin. Moderate withdrawal symptoms. Continue protocol. (10) Alcohol abuse: Drinks 1/2 gallon of vodka daily. Will need ongoing counseling / support. (11) Neuropathy: Taking gabapentin for neuropathy. Gabapentin may be contributing to dependent edema. Consider taper and discontinuation. (12) Smoking: Nicotine patch. Cessation counseling. (13) DVT prophylaxis: SQ heparin. (14) Discharge planning issues: Discharge disposition to be determined. Internal Medicine follow-up with Dr. Reed. Admission and Anticipated Discharge Date Admission Date: February 29, 2020 Subjective Recheck for SOB and other problems. Patient seen in their room around 1340. No chest pain. Persistent dependent edema. Ongoing SOB. No fever or cough. History of alcohol abuse. Last consumption 2 days ago. Having some tremors, mild sweats, and auditory hallucinations. Review of Systems: Constitutional- as noted above. Cardiac- as noted above. Pulmonary- as noted above. GI- no nausea, vomiting, diarrhea, melena, hematochezia. - no urinary symptoms. Otherwise, as noted above. Physical Exam Constitutional: no acute distress Eyes: + anicteric sclerae Respiratory: normal respiratory effort, lungs clear to auscultation Cardiovascular: Rate/Rhythm: regular rate and regular rhythm Heart Sounds: no gallop (none appreciated) Vessels: no JVD Extremities: + edema (2-3+ pretibial edema); no calf tenderness Gastrointestinal (Abdomen): normal bowel sounds, soft, nontender, no hepatosplenomegaly Musculoskeletal: Extremities: no cyanosis Skin: no rashes, warm and dry Neurologic: Motor/Sensory: + tremor Psychiatric: Orientation: alert and oriented x 3 Results & Data Results & Data ([facility]) Vital Signs (Past 12 Hours) Vital Signs Temp Pulse Pulse Resp BP Pulse Ox 03/01/20 19:51 37.0 C 72 18 186/98 H 97 03/01/20 15:47 37.1 C 69 19 174/89 H 94 03/01/20 14:55 74 03/01/20 11:18 37.7 C H 72 20 177/87 H 94 Laboratory Results Laboratory Results - last 24 hr 03/01/20 03/01/20 03/01/20 05:42 07:28 11:33 Sodium 135 L Potassium 4.9 D Chloride 98 Carbon Dioxide 37 H Anion Gap 0 L BUN 21 H D Creatinine 0.94 Est Cr Clr Drug Dosing 112.7 Est GFR ( Amer) 105.4 Est GFR (Non-Af Amer) 90.9 BUN/Creatinine Ratio 22.4 H Glucose 252 H POC Glucose 262 H 106 H Calcium 8.6 Phosphorus 3.3 Magnesium 1.7 L 03/01/20 03/01/20 16:24 20:12 Sodium Potassium Chloride Carbon Dioxide Anion Gap BUN Creatinine Est Cr Clr Drug Dosing Est GFR ( Amer) Est GFR (Non-Af Amer) BUN/Creatinine Ratio Glucose POC Glucose 226 H 201 H Calcium Phosphorus Magnesium
[2020-03-02] MEDS ORDERED: cloNIDine HCL 0.1 MG TAB PO ONE (00:10)
[2020-03-02] MEDS ORDERED: hydrALAZINE HCL 20 MG/ML VIAL IV STA (02:18)
[2020-03-02] MEDS: LORazepam 2 MG/4 ML VIAL IV PRN ×2 (02:48→05:14)
[2020-03-02] MEDS: HEPARIN SOD 5,000 UNIT/0.5 ML VIAL SQ SCH ×3 (05:11→22:02)
[2020-03-02] MEDS: GABAPENTIN 600 MG TAB PO SCH ×2 (05:11→17:12)
--- NOTE | 2020-03-02 06:15 | Electrocardiogram Report ---
Test Reason : Blood Pressure : / mmHG Vent. Rate : 076 BPM Atrial Rate : 076 BPM P-R Int : 196 ms QRS Dur : 100 ms QT Int : 400 ms P-R-T Axes : 050 -07 048 degrees QTc Int : 450 ms Normal sinus rhythm Normal ECG When compared with ECG of 16-JAN-2020 16:35, No significant change was found Confirmed by Yobani Farris ([id number]) on 03/02/2020 6:15:13 AM Referred By: Charity Kasper Confirmed By:Yobani Farris
[2020-03-02] MEDS: LORazepam 3 MG/6 ML VIAL IV PRN (06:16)
[2020-03-02] MEDS: INSULIN ASPART 100 UNITS/ML 3 ML PEN SC SCH ×4 (08:22→20:26)
[2020-03-02 08:34] LABS: Albumin Level 2.5 gm/dl (3.4-5.0); Bilirubin Direct 0.2 mg/dl (0-0.2); Bilirubin,Total 0.7 mg/dl (0.2-1); Creatinine Clr Calc Pharmacy 113.1 ml/min; Est GFR (African American) 105.4; Est GFR (Non-African American) 90.9; Magnesium 1.5 mg/dl (1.8-2.4); Total Protein 7.2 gm/dl (6.4-8.2)
[2020-03-02] MEDS ORDERED: MAGNESIUM SULFATE / D5W 1 GM/100 ML BAG IV ONE (09:30)
[2020-03-02] MEDS: THIAMINE HCL 100 MG TAB PO SCH (09:42)
[2020-03-02] MEDS: FOLIC ACID 1 MG TAB PO SCH (09:42)
[2020-03-02] MEDS: lisinopril 40 MG TAB PO SCH (09:42)
[2020-03-02] MEDS: METOPROLOL SUCC 50MG EXT REL TAB PO SCH (09:42)
[2020-03-02] MEDS: VENLAFAXINE HCL XR 150 MG CAPXR PO SCH (09:42)
[2020-03-02] MEDS: CEROVITE ADV FORMULA TAB PO SCH (09:42)
[2020-03-02] MEDS: CLOPIDOGREL BISULFATE 75 MG TAB PO SCH (09:42)
[2020-03-02] MEDS: ATORVASTATIN 40 MG TAB PO SCH (09:42)
[2020-03-02] MEDS: FUROSEMIDE 40 MG in SYRINGE 0 ML IV SCH (09:43)
[2020-03-02] MEDS: NICOTINE 21 MG/24 HR TDSY TD SCH (09:43)
[2020-03-02] MEDS: ASPIRIN 81 MG ECTAB PO SCH (09:43)
[2020-03-02] MEDS: BUPRENORPHINE/NALOXONE 8/2 MG TAB SL SCH ×2 (09:52→20:25)
--- NOTE | 2020-03-02 10:01 | Cardiology Progress Note ---
Date of Service March 02, 2020 Assessment & Plan (1) CAD (coronary artery disease): (2) Alcohol abuse: (3) Type 2 diabetes mellitus: (4) CATALINO (obstructive sleep apnea): (5) Cirrhosis of liver: The patient is going through delirium tremors. He has had a substantial diuresis since admission. His magnesium is being supplemented. These patients have a tendency to develop atrial fibrillation during withdrawal and I think it is best that we add IV metoprolol to his current medical regiment. I do not believe he is actively able to take oral medications at this time and I will put his oral metoprolol on hold. Admission and Anticipated Discharge Date Admission Date: February 29, 2020 Subjective The patient is going through delirium tremors, he is hallucinating and not coherent. Review of Systems Review of Systems: Unobtainable due to cognitive status Physical Exam Physical Exam: General: no acute distress and stated age Head: normocephalic, no masses, lesions, tenderness or abnormalities Eyes: conjunctiva are pink and non-injected, sclera clear Neck: supple, no adenopathy, no bruits, normal jugular venous pulse, no hepatojugular reflux Chest: normal shape and normal respiratory effort Lungs: clear to auscultation and percussion Cardiac Exam: - regular rate & rhythm, no murmurs gallops or rubs - normal S1, normal S2 Pulses: 2(+) throughout Abdomen: abdomen soft, non-tender, no abnormal masses and no hepatosplenomegaly Musculoskeletal: no gait disturbance, no joint inflammation, no deforming arthritis Extremities: Edema markedly improved Neuro: grossly normal exam Results & Data ([facility]) Vital Signs (Past 12 Hours) Vital Signs Temp Pulse Resp BP Pulse Ox 03/02/20 07:24 36.8 C 84 21 169/99 H 89 L 03/02/20 06:11 76 20 197/111 H 03/02/20 05:09 36.7 C 71 20 195/104 H 03/02/20 03:25 36.6 C 74 20 184/99 H 96 03/02/20 02:00 190/111 H 03/01/20 23:48 36.5 C 73 20 204/98 H 91 Laboratory Results Laboratory Results - last 24 hr 03/01/20 03/01/20 03/01/20 11:33 16:24 20:12 Sodium Potassium Chloride Carbon Dioxide Anion Gap BUN Creatinine Est Cr Clr Drug Dosing Est GFR ( Amer) Est GFR (Non-Af Amer) BUN/Creatinine Ratio Glucose POC Glucose 106 H 226 H 201 H Calcium Magnesium Total Bilirubin Direct Bilirubin AST ALT Alkaline Phosphatase Total Protein Albumin 03/02/20 03/02/20 07:04 08:10 Sodium 138 Potassium 4.0 D Chloride 102 Carbon Dioxide 31 Anion Gap 5.0 BUN 25 H Creatinine 0.94 Est Cr Clr Drug Dosing 113.1 Est GFR ( Amer) 105.4 Est GFR (Non-Af Amer) 90.9 BUN/Creatinine Ratio 26.0 H Glucose 126 H POC Glucose 128 H Calcium 9.0 Magnesium 1.5 L Total Bilirubin 0.7 Direct Bilirubin 0.2 AST 42 H ALT 38 Alkaline Phosphatase 125 H Total Protein 7.2 Albumin 2.5 L Medications Administered Current Inpatient Medications Aspirin (Aspirin 81 Mg Ectab) 81 mg PO [facility] Stop: 03/30/20 08:59 Last Admin: 03/02/20 09:43 Dose: 81 mg Documented by: Atorvastatin Calcium (Atorvastatin 40 Mg Tab) 40 mg PO [facility] Stop: 03/30/20 08:59 Last Admin: 03/02/20 09:42 Dose: 40 mg Documented by: Buprenorphine/Naloxone (Buprenorphine/Naloxone 8/2 Mg Tab) 1 tab SL BID [facility] Stop: 03/30/20 08:59 Last Admin: 03/02/20 09:52 Dose: 1 tab Documented by: Clonidine HCl (Clonidine Hcl 0.1 Mg Tab) 0.1 mg PO Q4H PRN PRN Reason: Hypertension Stop: 03/30/20 23:52 Last Admin: 03/01/20 21:22 Dose: 0.1 mg Documented by: Clopidogrel Bisulfate (Clopidogrel Bisulfate 75 Mg Tab) 75 mg PO [facility] Stop: 03/30/20 08:59 Last Admin: 03/02/20 09:42 Dose: 75 mg Documented by: Folic Acid (Folic Acid 1 Mg Tab) 1 mg PO [facility] Stop: 03/30/20 08:59 Last Admin: 03/02/20 09:42 Dose: 1 mg Documented by: Gabapentin (Gabapentin 600 Mg Tab) 600 mg PO Q12H [facility] Stop: 03/02/20 18:01 Last Admin: 03/02/20 05:11 Dose: 600 mg Documented by: Gabapentin (Gabapentin 600 Mg Tab) 600 mg PO Q24H [facility] Stop: 03/03/20 18:01 Heparin Sodium (Porcine) (Heparin Sod 5,000 Unit/0.5 Ml Vial) 5,000 units SQ Q8 [facility] Stop: 03/30/20 05:59 Last Admin: 03/02/20 05:11 Dose: 5,000 units Documented by: Lorazepam (Ativan) 1 mg in 2 mls @ 2 mls/min IV UD PRN; Protocol PRN Reason: EtOH Withdrawl AWSS Score 6,7 Stop: 03/30/20 05:40 Last Admin: 03/01/20 21:22 Dose: 2 mls/min Documented by: Lorazepam (Ativan) 2 mg in 4 mls @ 4 mls/min IV UD PRN; Protocol PRN Reason: EtOH Withdrawl AWSS Score 8,9 Stop: 03/30/20 05:40 Last Admin: 03/02/20 05:14 Dose: 4 mls/min Documented by: Lorazepam (Ativan) 3 mg in 6 mls @ 4 mls/min IV ONCE PRN; Protocol PRN Reason: EtOH Withdrawl AWSS Score >=10 Stop: 03/30/20 05:40 Last Admin: 03/02/20 06:16 Dose: 4 mls/min Documented by: Furosemide 40 mg/ Syringe 4 mls @ 4 mls/min IV DAILY [facility] Stop: 03/30/20 08:59 Last Admin: 03/02/20 09:43 Dose: 4 mls/min Documented by: Magnesium Sulfate/Dextrose (Magnesium Sulfate / D5w) 1 gm in 100 mls @ 50 mls/hr IV ONE ONE Stop: 03/02/20 11:29 Last Admin: 03/02/20 09:42 Dose: 50 mls/hr Documented by: Insulin Aspart (Insulin Aspart 100 Units/Ml 3 Ml Pen) 0 units SC ACHS [facility] Stop: 03/30/20 07:29 Last Admin: 03/02/20 08:22 Dose: Not Given Documented by: Insulin Detemir (Insulin Detemir Flexpen/Flex Touch 100 Units/Ml 3ml) 30 units SQ HS [facility] Stop: 03/30/20 20:59 Last Admin: 03/01/20 21:22 Dose: 30 units Documented by: Lisinopril (Lisinopril 40 Mg Tab) 40 mg PO QAM [facility] Stop: 03/30/20 08:59 Last Admin: 03/02/20 09:42 Dose: 40 mg Documented by: Metoprolol Succinate (Metoprolol Succ 50mg Ext Rel Tab) [facility] Stop: 03/30/20 08:59 Last Admin: 03/02/20 09:42 Dose: 50 mg Documented by: Miscellaneous (Remove Nicoderm Patch) 1 ea N/A DAILY@0859 [facility] Stop: 03/31/20 08:58 Last Admin: 03/02/20 08:24 Dose: 1 ea Documented by: Multivitamins/Minerals (Cerovite Adv Formula Tab) 1 tab PO [facility] Stop: 03/30/20 08:59 Last Admin: 03/02/20 09:42 Dose: 1 tab Documented by: Nicotine (Nicotine 21 Mg/24 Hr Tdsy) 21 mg TD [facility] Stop: 03/30/20 08:59 Last Admin: 03/02/20 09:43 Dose: 21 mg Documented by: Nitroglycerin (Nitroglycerin Sl 0.4 Mg/Tab Tab) 0.4 mg SL UD PRN PRN Reason: Chest Pain Stop: 03/30/20 05:40 Ondansetron HCl (Ondansetron Inj 2 Mg/Ml 2 Ml Vial) 4 mg IV Q6H PRN PRN Reason: Nausea Stop: 03/30/20 05:40 Thiamine HCl (Thiamine Hcl 100 Mg Tab) 100 mg PO [facility] Stop: 03/30/20 08:59 Last Admin: 03/02/20 09:42 Dose: 100 mg Documented by: Trazodone HCl (Trazodone Hcl 50 Mg Tab) 50 mg PO HS PRN PRN Reason: Insomnia Stop: 03/30/20 05:40 Venlafaxine HCl (Venlafaxine Hcl Xr 150 Mg Capxr) 150 mg PO [facility] Stop: 03/30/20 08:59 Last Admin: 03/02/20 09:42 Dose: 150 mg Documented by:
[2020-03-02] MEDS: METOPROLOL TARTRATE 1 MG/ML VIAL IV SCH ×3 (12:15→23:17)
[2020-03-02] MEDS: LORazepam 1 MG/2 ML VIAL IV PRN ×3 (17:39→23:28)
[2020-03-02] MEDS: INSULIN DETEMIR FLEXPEN/FLEX TOUCH 100 UNITS/ML 3ML SQ SCH (20:25)
--- NOTE | 2020-03-02 22:29 | Hospitalist Progress Note ---
Date of Service March 02, 2020 Assessment & Plan (1) CAD (coronary artery disease): CAD, s/p non-STEMI with PCI. Troponins slightly elevated with peak of 0.115. Cardiology consulted. Acute coronary syndrome unlikely. Dobutamine stress echo 01/23/20 did not show any stress-induced ischemia. No need for further evaluation at this time. Continue aspirin, clopidogrel, metoprolol, statin. (2) Cardiomyopathy: History of ischemic cardiomyopathy. Echo 01/01/19 showed LVEF 45-50%. Echo 01/17/20 showed LVEF 60-65%. Presented with fluid overload and edema. Pro-BNP elevated, but lungs clear by exam and chest x-ray. Fluid retention & edema probably multifactorial. Continue metoprolol, lisinopril. Continue IV furosemide. (3) HTN (hypertension): BP's elevated- probably due to fluid overload and alcohol withdrawal. Continue metoprolol, lisinopril, clonidine, diuretics. (4) Edema: Marked dependent edema. History of cardiomyopathy, but does not appear to have decompensated LV CHF. Venous duplex lower extremities negative for DVT. ? right-sided heart failure due to sleep apnea, although RV looked OK on last echo. ? related to liver disease, although no radiographic evidence of cirrhosis or portal hypertension. Hypoalbuminemia could be contributing factor. Nutritional due to alcoholism +/- ? nephrotic syndrome with 3+ proteinuria. Gabapentin could be contributing factor. Consider taper and discontinue. Continue IV furosemide with caution not to over-diurese. (5) CATALINO (obstructive sleep apnea): Noncompliant with CPAP. (6) Dyspnea: Complains of dyspnea. No pulmonary edema or infiltrates on chest x-ray. SARS-CoV-2 Ag screen negative. Venous duplex lower extremities negative for DVT. Doubt PE (had similar symptoms 01/16/20 with CTA chest negative for PE). Smoker. May have COPD. Consider PFT's. Fluid overload may be contributing factor. Diurese, follow. (7) Proteinuria: UA shows 3+ protein. Serum albumin 2.4. Probable diabetic neuropathy. ? other pathology. Check prior eval. (8) Hypomagnesemia: Replace. Follow. (9) Diabetes mellitus type 2 with complications: DM type 2 managed with insulin and dulaglutide at home. Hgb A1c = 7.9. FBS today = 128. Continue Levemir and NovoLog. Adjust dosing as necessary. (10) Alcohol withdrawal: Drinks 1/2 gallon of vodka daily. Last consumption was 3 days ago. Started on alcohol withdrawal protocol with gabapentin. Moderate -->severe withdrawal symptoms. Continue protocol- thiamine, MVI, gabapentin, PRN lorazepam. (11) Alcohol abuse: Drinks 1/2 gallon of vodka daily. Alcohol withdrawal protocol as noted above. Will need ongoing counseling / support. (12) Neuropathy: Taking gabapentin for neuropathy. Gabapentin may be contributing to dependent edema. Consider taper and discontinuation. (13) Smoking: Nicotine patch. Cessation counseling. (14) DVT prophylaxis: SQ heparin. (15) Discharge planning issues: Discharge disposition to be determined. Rehab for alcoholism if patient consents. Internal Medicine follow-up with Dr. Reed. Admission and Anticipated Discharge Date Admission Date: February 29, 2020 Subjective Recheck for SOB and other problems. Patient seen in their room around 1050. History of alcohol abuse. Last consumption 3 days ago. Auditory hallucinations and agitation this morning. Received PRN lorazepam per protocol. Very somnolent at time of my assessment. Has 1:1 staff. Review of Systems: Unable to obtain due to neurocognitive status. Physical Exam Constitutional: no acute distress Eyes: + anicteric sclerae Respiratory: normal respiratory effort, lungs clear to auscultation Cardiovascular: Rate/Rhythm: regular rate and regular rhythm Heart Sounds: no gallop (none appreciated) Vessels: no JVD Extremities: + edema (1-2+ pretibial edema); no calf tenderness Gastrointestinal (Abdomen): normal bowel sounds, soft, nontender, no hepatosplenomegaly Musculoskeletal: Extremities: no cyanosis Skin: no rashes, warm and dry Psychiatric: Orientation: + not alert and + not oriented x 3 Results & Data Results & Data ([facility]) Vital Signs (Past 12 Hours) Vital Signs Temp Pulse Pulse Resp BP BP Pulse Ox 03/02/20 18:38 37.0 C 69 19 164/93 H 91 03/02/20 17:12 64 146/86 H 03/02/20 15:20 36.3 C L 64 20 146/86 H 93 03/02/20 12:15 74 191/97 H 03/02/20 12:01 36.7 C 68 14 191/97 H 92 Laboratory Results Laboratory Results - last 24 hr 03/02/20 03/02/2003/02/20 07:04 08:10 11:38 Sodium 138 Potassium 4.0 D Chloride 102 Carbon Dioxide 31 Anion Gap 5.0 BUN 25 H Creatinine 0.94 Est Cr Clr Drug Dosing 113.1 Est GFR ( Amer) 105.4 Est GFR (Non-Af Amer) 90.9 BUN/Creatinine Ratio 26.0 H Glucose 126 H POC Glucose 128 H 121 H Calcium 9.0 Magnesium 1.5 L Total Bilirubin 0.7 Direct Bilirubin 0.2 AST 42 H ALT 38 Alkaline Phosphatase 125 H Total Protein 7.2 Albumin 2.5 L 03/02/20 03/02/20 16:10 20:08 Sodium Potassium Chloride Carbon Dioxide Anion Gap BUN Creatinine Est Cr Clr Drug Dosing Est GFR ( Amer) Est GFR (Non-Af Amer) BUN/Creatinine Ratio Glucose POC Glucose 184 H 229 H Calcium Magnesium Total Bilirubin Direct Bilirubin AST ALT Alkaline Phosphatase Total Protein Albumin
[2020-03-02] MEDS ORDERED: MULTI-VITAMIN INFUSION 10 ML, THIAMINE HCL 100 MG, FOLIC ACID 1 MG in SODIUM CHLORIDE 0... IV ONE (23:00)
[2020-03-03] MEDS: LORazepam 2 MG/4 ML VIAL IV PRN ×3 (04:40→23:41)
[2020-03-03] MEDS: METOPROLOL TARTRATE 1 MG/ML VIAL IV SCH ×3 (06:02→17:32)
[2020-03-03] MEDS: HEPARIN SOD 5,000 UNIT/0.5 ML VIAL SQ SCH ×3 (06:08→21:33)
[2020-03-03 06:36] LABS: BUN Creatinine Ratio 31.5 (10-20); Calcium 8.8 mg/dl (8.5-10.1); Creatinine Clr Calc Pharmacy 131.3 ml/min; Est GFR (Non-African American) 100.1; Magnesium 1.7 mg/dl (1.8-2.4); Potassium 4.3 mmol/L (3.5-5.1)
[2020-03-03] MEDS: NICOTINE 21 MG/24 HR TDSY TD SCH (08:02)
[2020-03-03] MEDS: ASPIRIN 81 MG ECTAB PO SCH (08:03)
[2020-03-03] MEDS: VENLAFAXINE HCL XR 150 MG CAPXR PO SCH (08:03)
[2020-03-03] MEDS: FOLIC ACID 1 MG TAB PO SCH (08:03)
[2020-03-03] MEDS: ATORVASTATIN 40 MG TAB PO SCH (08:03)
[2020-03-03] MEDS: CEROVITE ADV FORMULA TAB PO SCH (08:03)
[2020-03-03] MEDS: THIAMINE HCL 100 MG TAB PO SCH (08:03)
[2020-03-03] MEDS: CLOPIDOGREL BISULFATE 75 MG TAB PO SCH (08:03)
[2020-03-03] MEDS: INSULIN ASPART 100 UNITS/ML 3 ML PEN SC SCH ×4 (08:04→21:34)
[2020-03-03] MEDS: FUROSEMIDE 40 MG in SYRINGE 0 ML IV SCH (08:04)
[2020-03-03] MEDS: lisinopril 40 MG TAB PO SCH (08:06)
[2020-03-03] MEDS: BUPRENORPHINE/NALOXONE 8/2 MG TAB SL SCH ×2 (08:10→21:33)
[2020-03-03] MEDS ORDERED: MAGNESIUM SULFATE / D5W 1 GM/100 ML BAG IV ONE ×2 (15:58→16:00)
[2020-03-03] MEDS ORDERED: GABAPENTIN 600 MG TAB PO SCH (18:00)
[2020-03-03] MEDS: LORazepam 1 MG/2 ML VIAL IV PRN (18:46)
[2020-03-03] MEDS: INSULIN DETEMIR FLEXPEN/FLEX TOUCH 100 UNITS/ML 3ML SQ SCH (21:34)
--- NOTE | 2020-03-03 22:12 | Hospitalist Progress Note ---
Date of Service March 03, 2020 Assessment & Plan (1) CAD (coronary artery disease): CAD, s/p non-STEMI with PCI. Troponins slightly elevated with peak of 0.115. Cardiology consulted. Acute coronary syndrome unlikely. Dobutamine stress echo 01/23/20 did not show any stress-induced ischemia. No need for further evaluation at this time. Continue aspirin, clopidogrel, metoprolol, statin. (2) Cardiomyopathy: History of ischemic cardiomyopathy. Echo 01/01/19 showed LVEF 45-50%. Echo 01/17/20 showed LVEF 60-65%. Presented with fluid overload and edema. Pro-BNP elevated, but lungs clear by exam and chest x-ray. Fluid retention & edema probably multifactorial as discussed below. Continue metoprolol, lisinopril. Continue IV furosemide. (3) HTN (hypertension): BP's elevated- probably due to fluid overload and alcohol withdrawal. Continue metoprolol, lisinopril, clonidine, diuretics. (4) Edema: Marked dependent edema. History of cardiomyopathy, but does not appear to have decompensated LV CHF. Venous duplex lower extremities negative for DVT. ? right-sided heart failure due to sleep apnea, although RV looked OK on last echo. ? related to liver disease, although no radiographic evidence of cirrhosis or portal hypertension. Hypoalbuminemia could be contributing factor. Nutritional due to alcoholism +/- ? nephrotic syndrome with 3+ proteinuria. Gabapentin could be contributing factor. Consider taper and discontinue. Continue IV furosemide with caution not to over-diurese. (5) CATALINO (obstructive sleep apnea): Noncompliant with CPAP. (6) Dyspnea: Complains of dyspnea. No pulmonary edema or infiltrates on chest x-ray. SARS-CoV-2 Ag screen negative. Venous duplex lower extremities negative for DVT. Doubt PE (had similar symptoms 01/16/20 with CTA chest negative for PE). Smoker. May have COPD. Consider PFT's. Fluid overload may be contributing factor. Diurese, follow. (7) Proteinuria: UA shows 3+ protein. Serum albumin 2.4. Presented with 3+ edema. Probable diabetic nephropathy. ? other pathology. Not acute. Continue lisinopril. Outpatient f/u with Nephrology. (8) Hypomagnesemia: Mg as low as 1.4. Replace. Follow. (9) Diabetes mellitus type 2 with complications: DM type 2 managed with insulin and dulaglutide at home. Hgb A1c = 7.9. FBS today = 116. Continue Levemir and NovoLog. Adjust dosing as necessary. (10) Alcohol withdrawal: Drinks 1/2 gallon of vodka daily. Last consumption was 4 days ago. Started on alcohol withdrawal protocol with gabapentin. Moderate -->severe withdrawal symptoms, now improving. Continue protocol- thiamine, MVI, gabapentin, PRN lorazepam. (11) Alcohol abuse: Drinks 1/2 gallon of vodka daily. Alcohol withdrawal protocol as noted above. Needs ongoing counseling / support. Willing to consider rehab. (12) Neuropathy: Taking gabapentin for neuropathy. Gabapentin may be contributing to dependent edema. Consider taper and discontinuation. (13) Smoking: Nicotine patch. Cessation counseling. (14) DVT prophylaxis: SQ heparin. (15) Discharge planning issues: Discharge disposition to be determined. Rehab for alcoholism if patient consents. Internal Medicine follow-up with Dr. Reed. Outpt referral to Nephrology. Admission and Anticipated Discharge Date Admission Date: February 29, 2020 Subjective Recheck for SOB and other problems. Patient seen in their room around 1400. More alert. Ongoing auditory and visual hallucinations, tremors. No CP. No SOB. Edema improved. Review of Systems: Constitutional- no fever. Cardiac- as noted above. Pulmonary- no cough or SOB. GI- no nausea, vomiting, diarrhea, melena, hematochezia. - no urinary symptoms. Otherwise, as noted above. Physical Exam Constitutional: no acute distress Eyes: + anicteric sclerae Respiratory: normal respiratory effort, lungs clear to auscultation Cardiovascular: Rate/Rhythm: regular rate and regular rhythm Heart Sounds: no gallop (none appreciated) Vessels: no JVD Extremities: + edema (1+ pretibial edema); no calf tenderness Gastrointestinal (Abdomen): normal bowel sounds, soft, nontender, no hepatosplenomegaly Musculoskeletal: Extremities: no cyanosis Skin: no rashes, warm and dry Neurologic: Motor/Sensory: + tremor Psychiatric: Orientation: alert and oriented x 3 (missed date by a few days, otherwise Ox3 and able to name presidents x 4) Results & Data Results & Data ([facility]) Vital Signs (Past 12 Hours) Vital Signs Temp Pulse Pulse Pulse Resp BP BP 03/03/20 21:40 36.7 C 186/111 H 03/03/20 18:35 36.2 C L 20 L 94 H 162/88 H 03/03/20 17:32 80 181/98 H 03/03/20 16:00 79 03/03/20 14:58 36.9 C 79 19 175/89 H 03/03/20 12:15 74 166/96 H 03/03/20 12:00 36.7 C 74 18 166/96 H Pulse Ox 03/03/20 21:40 03/03/20 18:35 97 03/03/20 17:32 03/03/20 16:00 03/03/20 14:58 93 03/03/20 12:15 03/03/20 12:00 92 Laboratory Results 03/03/20 05:24
[2020-03-03] MEDS ORDERED: METOPROLOL TARTRATE 1 MG/ML VIAL IV PRN (22:15)
[2020-03-03] MEDS ORDERED: METOPROLOL SUCC 25MG EXT REL TAB PO ONE (22:15)
[2020-03-04] MEDS: LORazepam 3 MG/6 ML VIAL IV PRN ×2 (01:35→02:15)
[2020-03-04] MEDS ORDERED: LORazepam 2 MG/4 ML VIAL IV STA (03:02)
[2020-03-04] MEDS: HEPARIN SOD 5,000 UNIT/0.5 ML VIAL SQ SCH ×3 (05:30→20:25)
[2020-03-04 07:43] LABS: Albumin Level 2.6 gm/dl (3.4-5.0); BUN Creatinine Ratio 28.3 (10-20); Bilirubin Direct 0.2 mg/dl (0-0.2); Est GFR (African American) 108.1; Est GFR (Non-African American) 93.3; Magnesium 2.1 mg/dl (1.8-2.4); Potassium 4.4 mmol/L (3.5-5.1)
[2020-03-04 07:46] LABS: Albumin Globulin Ratio 0.6 (0.9-2); Bilirubin,Total 0.6 mg/dl (0.2-1); Globulin 4.4 gm/dl (2.5-4.0)
[2020-03-04] MEDS: THIAMINE HCL 100 MG TAB PO SCH (08:27)
[2020-03-04] MEDS: CEROVITE ADV FORMULA TAB PO SCH (08:27)
[2020-03-04] MEDS: GABAPENTIN 300 MG CAP PO SCH ×2 (08:27→20:24)
[2020-03-04] MEDS: lisinopril 40 MG TAB PO SCH (08:27)
[2020-03-04] MEDS: CLOPIDOGREL BISULFATE 75 MG TAB PO SCH (08:27)
[2020-03-04] MEDS: ASPIRIN 81 MG ECTAB PO SCH (08:28)
[2020-03-04] MEDS: NICOTINE 21 MG/24 HR TDSY TD SCH (08:28)
[2020-03-04] MEDS: VENLAFAXINE HCL XR 150 MG CAPXR PO SCH (08:28)
[2020-03-04] MEDS: ATORVASTATIN 40 MG TAB PO SCH (08:28)
[2020-03-04] MEDS: INSULIN ASPART 100 UNITS/ML 3 ML PEN SC SCH ×4 (08:28→20:22)
[2020-03-04] MEDS: FOLIC ACID 1 MG TAB PO SCH (08:28)
[2020-03-04] MEDS: FUROSEMIDE 40 MG in SYRINGE 0 ML IV SCH (08:28)
[2020-03-04] MEDS: BUPRENORPHINE/NALOXONE 8/2 MG TAB SL SCH ×2 (08:33→20:22)
[2020-03-04] MEDS: METOPROLOL SUCC 50MG EXT REL TAB PO SCH (09:36)
[2020-03-04] MEDS: LORazepam 1 MG/2 ML VIAL IV PRN ×3 (09:38→20:22)
--- NOTE | 2020-03-04 12:55 | Cardiology Progress Note ---
Date of Service March 04, 2020 Assessment & Plan (1) CAD (coronary artery disease): (2) Alcohol abuse: (3) Type 2 diabetes mellitus: (4) CATALINO (obstructive sleep apnea): (5) Cirrhosis of liver: The patient I believe is euvolemic and his diuretics can be reduced. I DC'd the IV Lasix and he will continue on Lasix 40 mg p.o. daily. Otherwise he is doing well and seems to be progressing through his withdrawal. Admission and Anticipated Discharge Date Admission Date: February 29, 2020 Subjective The patient is resting comfortably. Review of Systems Review of Systems: All systems reviewed & are unremarkable except as noted in Subjective Physical Exam Physical Exam: General: no acute distress and stated age Head: normocephalic, no masses, lesions, tenderness or abnormalities Eyes: conjunctiva are pink and non-injected, sclera clear Neck: supple, no adenopathy, no bruits, normal jugular venous pulse, no hepatojugular reflux Chest: normal shape and normal respiratory effort Lungs: clear to auscultation and percussion Cardiac Exam: - regular rate & rhythm, no murmurs gallops or rubs - normal S1, normal S2 Pulses: 2(+) throughout Abdomen: abdomen soft, non-tender, no abnormal masses and no hepatosplenomegaly Musculoskeletal: no gait disturbance, no joint inflammation, no deforming arthritis Extremities: no edema and no cyanosis Neuro: grossly normal exam Results & Data ([facility]) Vital Signs (Past 12 Hours) Vital Signs Temp Pulse Pulse Resp BP BP Pulse Ox 03/04/20 12:04 36.7 C 68 19 174/99 H 92 03/04/20 08:07 36.7 C 72 20 169/92 H 92 03/04/20 07:00 70 03/04/20 04:30 36.8 C 68 16 163/90 H 92 Laboratory Results Laboratory Results - last 24 hr 03/03/20 03/03/20 03/04/20 16:28 20:27 06:52 Sodium 137 Potassium 4.4 Chloride 103 Carbon Dioxide 30 Anion Gap 4.0 BUN 26 H Creatinine 0.92 Est Cr Clr Drug Dosing 116.0 Est GFR ( Amer) 108.1 Est GFR (Non-Af Amer) 93.3 BUN/Creatinine Ratio 28.3 H Glucose 125 H POC Glucose 143 H 172 H Calcium 9.0 Magnesium 2.1 Total Bilirubin 0.6 Direct Bilirubin 0.2 AST 58 H ALT 49 Alkaline Phosphatase 98 Total Protein 7.0 Albumin 2.6 L Globulin 4.4 H Albumin/Globulin Ratio 0.6 L 03/04/20 03/04/20 07:17 11:17 Sodium Potassium Chloride Carbon Dioxide Anion Gap BUN Creatinine Est Cr Clr Drug Dosing Est GFR ( Amer) Est GFR (Non-Af Amer) BUN/Creatinine Ratio Glucose POC Glucose 121 H 98 Calcium Magnesium Total Bilirubin Direct Bilirubin AST ALT Alkaline Phosphatase Total Protein Albumin Globulin Albumin/Globulin Ratio Medications Administered Current Inpatient Medications Aspirin (Aspirin 81 Mg Ectab) 81 mg PO [facility] Stop: 03/30/20 08:59 Last Admin: 03/04/20 08:28 Dose: 81 mg Documented by: Atorvastatin Calcium (Atorvastatin 40 Mg Tab) 40 mg PO [facility] Stop: 03/30/20 08:59 Last Admin: 03/04/20 08:28 Dose: 40 mg Documented by: Buprenorphine/Naloxone (Buprenorphine/Naloxone 8/2 Mg Tab) 1 tab SL BID [facility] Stop: 03/30/20 08:59 Last Admin: 03/04/20 08:33 Dose: 1 tab Documented by: Clonidine HCl (Clonidine Hcl 0.1 Mg Tab) 0.1 mg PO Q4H PRN PRN Reason: Hypertension Stop: 03/30/20 23:52 Last Admin: 03/01/20 21:22 Dose: 0.1 mg Documented by: Clopidogrel Bisulfate (Clopidogrel Bisulfate 75 Mg Tab) 75 mg PO [facility] Stop: 03/30/20 08:59 Last Admin: 03/04/20 08:27 Dose: 75 mg Documented by: Folic Acid (Folic Acid 1 Mg Tab) 1 mg PO [facility] Stop: 03/30/20 08:59 Last Admin: 03/04/20 08:28 Dose: 1 mg Documented by: Furosemide (Furosemide 40 Mg Tab) 40 mg PO [facility] Stop: 04/04/20 08:59 Gabapentin (Gabapentin 300 Mg Cap) 300 mg PO BID [facility] Stop: 04/03/20 08:59 Last Admin: 03/04/20 08:27 Dose: 300 mg Documented by: Heparin Sodium (Porcine) (Heparin Sod 5,000 Unit/0.5 Ml Vial) 5,000 units SQ Q8 [facility] Stop: 03/30/20 05:59 Last Admin: 03/04/20 05:30 Dose: Not Given Documented by: Lorazepam (Ativan) 1 mg in 2 mls @ 2 mls/min IV UD PRN; Protocol PRN Reason: EtOH Withdrawl AWSS Score 6,7 Stop: 03/30/20 05:40 Last Admin: 03/04/20 09:38 Dose: 2 mls/min Documented by: Lorazepam (Ativan) 2 mg in 4 mls @ 4 mls/min IV UD PRN; Protocol PRN Reason: EtOH Withdrawl AWSS Score 8,9 Stop: 03/30/20 05:40 Last Admin: 03/03/20 23:41 Dose: 4 mls/min Documented by: Lorazepam (Ativan) 3 mg in 6 mls @ 4 mls/min IV ONCE PRN; Protocol PRN Reason: EtOH Withdrawl AWSS Score >=10 Stop: 03/30/20 05:40 Last Admin: 03/04/20 02:15 Dose: 4 mls/min Documented by: Insulin Aspart (Insulin Aspart 100 Units/Ml 3 Ml Pen) [facility] Stop: 03/30/20 07:29 Last Admin: 03/04/20 08:28 Dose: 4 units Documented by: Insulin Detemir (Insulin Detemir Flexpen/Flex Touch 100 Units/Ml 3ml) 30 units SQ HS [facility] Stop: 03/30/20 20:59 Last Admin: 03/03/20 21:34 Dose: 30 units Documented by: Lisinopril (Lisinopril 40 Mg Tab) 40 mg PO [facility] Stop: 03/30/20 08:59 Last Admin: 03/04/20 08:27 Dose: 40 mg Documented by: Metoprolol Succinate (Metoprolol Succ 50mg Ext Rel Tab) [facility] Stop: 03/30/20 08:59 Last Admin: 03/04/20 09:36 Dose: 50 mg Documented by: Metoprolol Tartrate (Metoprolol Tartrate 1 Mg/Ml Vial) 5 mg IV Q6 PRN PRN Reason: HR > 110, SYS BP > 160, [place] BP > 100 Stop: 04/01/20 11:59 Last Admin: 03/03/20 23:41 Dose: 5 mg Documented by: Miscellaneous (Remove Nicoderm Patch) 1 ea N/A DAILY@0859 [facility] Stop: 03/31/20 08:58 Last Admin: 03/04/20 08:29 Dose: 1 ea Documented by: Multivitamins/Minerals (Cerovite Adv Formula Tab) 1 tab PO QAM [facility] Stop: 03/30/20 08:59 Last Admin: 03/04/20 08:27 Dose: 1 tab Documented by: Nicotine (Nicotine 21 Mg/24 Hr Tdsy) 21 mg TD [facility] Stop: 03/30/20 08:59 Last Admin: 03/04/20 08:28 Dose: 21 mg Documented by: Nitroglycerin (Nitroglycerin Sl 0.4 Mg/Tab Tab) 0.4 mg SL UD PRN PRN Reason: Chest Pain Stop: 03/30/20 05:40 Ondansetron HCl (Ondansetron Inj 2 Mg/Ml 2 Ml Vial) 4 mg IV Q6H PRN PRN Reason: Nausea Stop: 03/30/20 05:40 Thiamine HCl (Thiamine Hcl 100 Mg Tab) 100 mg PO [facility] Stop: 03/30/20 08:59 Last Admin: 03/04/20 08:27 Dose: 100 mg Documented by: Trazodone HCl (Trazodone Hcl 50 Mg Tab) 50 mg PO HS PRN PRN Reason: Insomnia Stop: 03/30/20 05:40 Venlafaxine HCl (Venlafaxine Hcl Xr 150 Mg Capxr) 150 mg PO [facility] Stop: 03/30/20 08:59 Last Admin: 03/04/20 08:28 Dose: 150 mg Documented by:
--- NOTE | 2020-03-04 14:41 | Hospitalist Progress Note ---
Date of Service March 04, 2020 Assessment & Plan (1) Alcohol abuse: Drinks 1/2 gallon of vodka daily. Alcohol withdrawal protocol as noted above. Needs ongoing counseling / support. Willing to consider rehab despite several attempts in the past. (2) Alcohol withdrawal: Drinks 1/2 gallon of vodka daily. Last consumption was 4 days ago. Started on alcohol withdrawal protocol with gabapentin. Moderate -->severe withdrawal symptoms, now improving but still requiring higher doses of lorazepam. Continue protocol- thiamine, MVI, gabapentin, PRN lorazepam. (3) CAD (coronary artery disease): CAD, s/p non-STEMI with PCI. Troponins slightly elevated with peak of 0.115. Cardiology consulted. Acute coronary syndrome unlikely. Dobutamine stress echo 01/23/20 did not show any stress-induced ischemia. No need for further evaluation at this time. Continue aspirin, clopidogrel, metoprolol, statin. (4) Cardiomyopathy: History of ischemic cardiomyopathy. Echo 01/01/19 showed LVEF 45-50%. Echo 01/17/20 showed LVEF 60-65%. Presented with fluid overload and edema. Pro-BNP elevated, but lungs clear by exam and chest x-ray. Fluid retention & edema probably multifactorial as discussed below. Continue metoprolol, lisinopril. IV furosemide switched or oral per Cardiology (03/04) (5) HTN (hypertension): BP's elevated- probably due to alcohol withdrawal. Continue metoprolol, lisinopril, clonidine, diuretics. (6) Edema: Marked dependent edema. History of cardiomyopathy, but does not appear to have decompensated LV CHF. Venous duplex lower extremities negative for DVT. ? right-sided heart failure due to sleep apnea, although RV looked OK on last echo. ? related to liver disease, although no radiographic evidence of cirrhosis or portal hypertension. Hypoalbuminemia could be contributing factor. Nutritional due to alcoholism +/- ? nephrotic syndrome with 3+ proteinuria. Gabapentin could be contributing factor. Consider taper and discontinue. Continue furosemide with caution not to over-diurese. (7) CATALINO (obstructive sleep apnea): Noncompliant with CPAP. (8) Dyspnea: No reports of dyspnea today-this appears to have resolved. No pulmonary edema or infiltrates on chest x-ray. Lungs are clear to auscultation on exam. SARS-CoV-2 Ag screen negative. Venous duplex lower extremities negative for DVT. Doubt PE (had similar symptoms 01/16/20 with CTA chest negative for PE). Smoker. May have COPD. Consider PFT's. Fluid overload may be contributing factor. Jarod, follow. (9) Proteinuria: UA shows 3+ protein. Serum albumin 2.4. Presented with 3+ edema. Probable diabetic nephropathy. ? other pathology. Not acute. Continue lisinopril. Outpatient f/u with Nephrology. (10) Hypomagnesemia: repleted, start daily Mg supplementation. (11) Diabetes mellitus type 2 with complications: DM type 2 managed with insulin and dulaglutide at home. Hgb A1c = 7.9. Continue Levemir and NovoLog. Adjust dosing as necessary. Currently at goal (12) Neuropathy: Taking gabapentin for neuropathy. Gabapentin may be contributing to dependent edema. Consider taper and discontinuation as outpatient (13) Smoking: Nicotine patch. Cessation counseling. (14) Chronic pain: Pt is on twice daily suboxone for chronic pain. Would avoid scheduled benzodiazepines to reduce the risk of polypharmacy and medication interactions. Cont PRN benzo for now during heightened withdrawal state. (15) DVT prophylaxis: Heparin switched to Lovenox to reduce shot burden. Ambulate as tolerated multiple times daily. Full Code Dispo-uncertain at this time. Sara Morris DO [facility] Hospitalist Admission and Anticipated Discharge Date Admission Date: February 29, 2020 Subjective 54 yo alcoholic M here to become sober required multiple doses of IV Ativan overnight last night still rather tremulous and reports hallucinations tolerating PO afebrile excited to walk around Review of Systems Review of Systems: All systems reviewed & are unremarkable except as noted in Subjective Physical Exam Physical Exam: CONSTITUTIONAL: WNWD, vitals as above, generally well- appearing EYES: normal conjunctivae, no scleral icterus ENT: external ear and nose normal, MMM NECK: trachea midline RESPIRATORY: clear to auscultation bilaterally, no crackles, rales or wheezes, normal respiratory effort CARDIOVASCULAR: regular rate and rhythm, S1 and 2 heard without murmurs, gallops or rubs, no JVD, trace peripheral edema bilateral lower extremities. GASTROINTESTINAL: soft, nontender, nondistended, no guarding MUSCULOSKELETAL: ambulatory SKIN: warm and dry NEUROLOGIC: CN 2-12 grossly intact, no sensory deficit, normal cognition, normal speech, +tremors at rest PSYCHIATRIC: alert cooperative and oriented to person, place and time. Results & Data Results & Data ([facility]) Vital Signs (Past 12 Hours) Vital Signs Temp Pulse Pulse Resp BP BP Pulse Ox 03/04/20 12:04 36.7 C 68 19 174/99 H 92 03/04/20 08:07 36.7 C 72 20 169/92 H 92 03/04/20 07:00 70 03/04/20 04:30 36.8 C 68 16 163/90 H 92 Laboratory Results [facility] 03/04/20 06:52 Sodium 137 Potassium 4.4 Chloride 103 Carbon Dioxide 30 BUN 26 H Creatinine 0.92 Glucose 125 H Calcium 9.0 Liver Function 03/04/20 Range/Units 06:52 Total Bilirubin 0.6 (0.2-1) mg/dl Direct Bilirubin 0.2 (0-0.2) mg/dl AST 58 H (15-37) U/L ALT 49 (12-78) U/L Alkaline Phosphatase 98 (45-117) U/L Albumin 2.6 L (3.4-5.0) gm/dl Medications Administered Current Inpatient Medications Aspirin (Aspirin 81 Mg Ectab) 81 mg PO [facility] Stop: 03/30/20 08:59 Last Admin: 03/04/20 08:28 Dose: 81 mg Documented by: Atorvastatin Calcium (Atorvastatin 40 Mg Tab) 40 mg PO [facility] Stop: 03/30/20 08:59 Last Admin: 03/04/20 08:28 Dose: 40 mg Documented by: Buprenorphine/Naloxone (Buprenorphine/Naloxone 8/2 Mg Tab) 1 tab SL BID [facility] Stop: 03/30/20 08:59 Last Admin: 03/04/20 08:33 Dose: 1 tab Documented by: Clonidine HCl (Clonidine Hcl 0.1 Mg Tab) 0.1 mg PO Q4H PRN PRN Reason: Hypertension Stop: 03/30/20 23:52 Last Admin: 03/01/20 21:22 Dose: 0.1 mg Documented by: Clopidogrel Bisulfate (Clopidogrel Bisulfate 75 Mg Tab) 75 mg PO [facility] Stop: 03/30/20 08:59 Last Admin: 03/04/20 08:27 Dose: 75 mg Documented by: Folic Acid (Folic Acid 1 Mg Tab) 1 mg PO [facility] Stop: 03/30/20 08:59 Last Admin: 03/04/20 08:28 Dose: 1 mg Documented by: Furosemide (Furosemide 40 Mg Tab) 40 mg PO QAM [facility] Stop: 04/04/20 08:59 Gabapentin (Gabapentin 300 Mg Cap) 300 mg PO BID [facility] Stop: 04/03/20 08:59 Last Admin: 03/04/20 08:27 Dose: 300 mg Documented by: Heparin Sodium (Porcine) (Heparin Sod 5,000 Unit/0.5 Ml Vial) 5,000 units SQ Q8 [facility] Stop: 03/30/20 05:59 Last Admin: 03/04/20 14:01 Dose: 5,000 units Documented by: Lorazepam (Ativan) 1 mg in 2 mls @ 2 mls/min IV UD PRN; Protocol PRN Reason: EtOH Withdrawl AWSS Score 6,7 Stop: 03/30/20 05:40 Last Admin: 03/04/20 09:38 Dose: 2 mls/min Documented by: Lorazepam (Ativan) 2 mg in 4 mls @ 4 mls/min IV UD PRN; Protocol PRN Reason: EtOH Withdrawl AWSS Score 8,9 Stop: 03/30/20 05:40 Last Admin: 03/03/20 23:41 Dose: 4 mls/min Documented by: Lorazepam (Ativan) 3 mg in 6 mls @ 4 mls/min IV ONCE PRN; Protocol PRN Reason: EtOH Withdrawl AWSS Score >=10 Stop: 03/30/20 05:40 Last Admin: 03/04/20 02:15 Dose: 4 mls/min Documented by: Insulin Aspart (Insulin Aspart 100 Units/Ml 3 Ml Pen) 0 units SC ACHS [facility] Stop: 03/30/20 07:29 Last Admin: 03/04/20 14:00 Dose: 5 units Documented by: Insulin Detemir (Insulin Detemir Flexpen/Flex Touch 100 Units/Ml 3ml) 30 units SQ HS [facility] Stop: 03/30/20 20:59 Last Admin: 03/03/20 21:34 Dose: 30 units Documented by: Lisinopril (Lisinopril 40 Mg Tab) 40 mg PO [facility] Stop: 03/30/20 08:59 Last Admin: 03/04/20 08:27 Dose: 40 mg Documented by: Metoprolol Succinate (Metoprolol Succ 50mg Ext Rel Tab) 50 mg PO [facility] Stop: 03/30/20 08:59 Last Admin: 03/04/20 09:36 Dose: 50 mg Documented by: Metoprolol Tartrate (Metoprolol Tartrate 1 Mg/Ml Vial) 5 mg IV Q6 PRN PRN Reason: HR > 110, SYS BP > 160, [place] BP > 100 Stop: 04/01/20 11:59 Last Admin: 03/03/20 23:41 Dose: 5 mg Documented by: Miscellaneous (Remove Nicoderm Patch) 1 ea N/A DAILY@0859 [facility] Stop: 03/31/20 08:58 Last Admin: 03/04/20 08:29 Dose: 1 ea Documented by: Multivitamins/Minerals (Cerovite Adv Formula Tab) [facility] [place] Stop: 03/30/20 08:59 Last Admin: 03/04/20 08:27 Dose: 1 tab Documented by: Nicotine (Nicotine 21 Mg/24 Hr Tdsy) 21 mg TD [facility] Stop: 03/30/20 08:59 Last Admin: 03/04/20 08:28 Dose: 21 mg Documented by: Nitroglycerin (Nitroglycerin Sl 0.4 Mg/Tab Tab) 0.4 mg SL UD PRN PRN Reason: Chest Pain Stop: 03/30/20 05:40 Ondansetron HCl (Ondansetron Inj 2 Mg/Ml 2 Ml Vial) 4 mg IV Q6H PRN PRN Reason: Nausea Stop: 03/30/20 05:40 Thiamine HCl (Thiamine Hcl 100 Mg Tab) 100 mg PO [facility] Stop: 03/30/20 08:59 Last Admin: 03/04/20 08:27 Dose: 100 mg Documented by: Trazodone HCl (Trazodone Hcl 50 Mg Tab) 50 mg PO HS PRN PRN Reason: Insomnia Stop: 03/30/20 05:40 Venlafaxine HCl (Venlafaxine Hcl Xr 150 Mg Capxr) 150 mg PO [facility] Stop: 03/30/20 08:59 Last Admin: 03/04/20 08:28 Dose: 150 mg Documented by:
[2020-03-04] MEDS ORDERED: LORazepam 1 MG/2 ML VIAL IV STA (15:15)
[2020-03-04] MEDS: INSULIN DETEMIR FLEXPEN/FLEX TOUCH 100 UNITS/ML 3ML SQ SCH (20:24)
[2020-03-05] MEDS: LORazepam 2 MG/4 ML VIAL IV PRN (00:19)
[2020-03-05] MEDS: HEPARIN SOD 5,000 UNIT/0.5 ML VIAL SQ SCH (04:51)
[2020-03-05] MEDS: NICOTINE 21 MG/24 HR TDSY TD SCH (08:30)
[2020-03-05] MEDS: FUROSEMIDE 40 MG TAB PO SCH (08:30)
[2020-03-05] MEDS: INSULIN ASPART 100 UNITS/ML 3 ML PEN SC SCH ×4 (08:30→21:02)
[2020-03-05] MEDS: THIAMINE HCL 100 MG TAB PO SCH (08:31)
[2020-03-05] MEDS: CEROVITE ADV FORMULA TAB PO SCH (08:31)
[2020-03-05] MEDS: CLOPIDOGREL BISULFATE 75 MG TAB PO SCH (08:31)
[2020-03-05] MEDS: VENLAFAXINE HCL XR 150 MG CAPXR PO SCH (08:31)
[2020-03-05] MEDS: METOPROLOL SUCC 50MG EXT REL TAB PO SCH (08:31)
[2020-03-05] MEDS: ASPIRIN 81 MG ECTAB PO SCH (08:31)
[2020-03-05] MEDS: FOLIC ACID 1 MG TAB PO SCH (08:31)
[2020-03-05] MEDS: MAGNESIUM OXIDE 400 MG TAB PO SCH (08:32)
[2020-03-05] MEDS: ATORVASTATIN 40 MG TAB PO SCH (08:32)
[2020-03-05] MEDS: ENOXAPARIN INJ 40 MG/0.4 ML SYR SQ SCH (08:32)
[2020-03-05] MEDS: lisinopril 40 MG TAB PO SCH (08:32)
[2020-03-05] MEDS: GABAPENTIN 300 MG CAP PO SCH ×2 (08:32→20:09)
[2020-03-05] MEDS: BUPRENORPHINE/NALOXONE 8/2 MG TAB SL SCH ×2 (08:43→20:08)
[2020-03-05] MEDS: LORazepam 1 MG/2 ML VIAL IV PRN ×2 (08:43→20:17)
--- NOTE | 2020-03-05 15:07 | Hospitalist Progress Note ---
Date of Service March 05, 2020 Assessment & Plan (1) Alcohol abuse: Drinks 1/2 gallon of vodka daily. Alcohol withdrawal protocol as noted above. Needs ongoing counseling / support. Willing to consider rehab despite several attempts in the past. (2) Alcohol withdrawal: Drinks 1/2 gallon of vodka daily. Last consumption was 1 week ago Started on alcohol withdrawal protocol with gabapentin. Continue protocol- thiamine, MVI, gabapentin, PRN lorazepam. 03/05-Appears more calm today, and tremors have improved. Still somewhat hypertensive. (3) CAD (coronary artery disease): CAD, s/p non-STEMI with PCI. Troponins slightly elevated with peak of 0.115. Cardiology consulted. Acute coronary syndrome unlikely. Dobutamine stress echo 01/23/20 did not show any stress-induced ischemia. No need for further evaluation at this time. Continue aspirin, clopidogrel, metoprolol, statin. (4) Cardiomyopathy: History of ischemic cardiomyopathy. Echo 01/01/19 showed LVEF 45-50%. Echo 01/17/20 showed LVEF 60-65%. Presented with fluid overload and edema. Pro-BNP elevated, but lungs clear by exam and chest x-ray. Fluid retention & edema probably multifactorial as discussed below. Continue metoprolol, lisinopril. IV furosemide switched or oral per Cardiology (03/04) 03/05-cont oral furosemide-edema on lower extremities continues to improve. (5) HTN (hypertension): BP's elevated to 205 this am, improved with Ativan to the 160s systolic- 2/2 continued alcohol withdrawal. Continue metoprolol, lisinopril, clonidine, diuretics. (6) Edema: Marked dependent edema. History of cardiomyopathy, but does not appear to have decompensated LV CHF. Venous duplex lower extremities negative for DVT. ? right-sided heart failure due to sleep apnea, although RV looked OK on last echo. ? related to liver disease, although no radiographic evidence of cirrhosis or portal hypertension. Hypoalbuminemia could be contributing factor. Nutritional due to alcoholism +/- ? nephrotic syndrome with 3+ proteinuria. Gabapentin could be contributing factor. Consider taper and discontinue. Continue furosemide with caution not to over-diurese. (7) CATALINO (obstructive sleep apnea): Noncompliant with CPAP. (8) Proteinuria: UA shows 3+ protein. Serum albumin 2.4. Presented with 3+ edema. Probable diabetic nephropathy. ? other pathology. Not acute. Continue lisinopril. Outpatient f/u with Nephrology. (9) Hypomagnesemia: repleted, cont daily Mg supplementation. 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 Hgb A1c = 7.9. Continue Levemir and NovoLog. Adjust dosing as necessary. Currently at goal (11) Neuropathy: Taking gabapentin for neuropathy. Gabapentin may be contributing to dependent edema. Consider taper and discontinuation as outpatient (12) Smoking: Nicotine patch. Cessation counseling. (13) Chronic pain: Pt is on twice daily suboxone for chronic pain. Would avoid scheduled benzodiazepines to reduce the risk of polypharmacy and medication interactions. Cont PRN benzo for now during heightened withdrawal state. (14) DVT prophylaxis: Lovenox/ambulate Full Code Dispo-uncertain at this time. Sara Morris DO [facility] Hospitalist Admission and Anticipated Discharge Date Admission Date: February 29, 2020 Subjective cc: alcohol withdrawal -patient feeling less withdrawal symptoms today including less hallucinations -tolerating PO -trace edema continues to improve in lower legs. Review of Systems Review of Systems: All systems reviewed & are unremarkable except as noted in Subjective Physical Exam Physical Exam: CONSTITUTIONAL: WNWD, vitals as above, NAD EYES: normal conjunctivae, no scleral icterus ENT: external ear and nose normal, MMM NECK: trachea midline RESPIRATORY: clear to auscultation bilaterally, no crackles, rales or wheezes, normal respiratory effort CARDIOVASCULAR: regular rate and rhythm, S1 and 2 heard without murmurs, gallops or rubs, no JVD, trace peripheral edema bilateral lower extremities. GASTROINTESTINAL: soft, nontender, nondistended, no guarding MUSCULOSKELETAL: ambulatory SKIN: warm and dry NEUROLOGIC: CN 2-12 grossly intact, no sensory deficit, normal cognition, normal speech, +tremors at rest PSYCHIATRIC: alert cooperative and oriented to person, place and time. Results & Data Results & Data ([facility]) Vital Signs (Past 12 Hours) Vital Signs Temp Pulse Pulse Resp BP Pulse Ox 03/05/20 14:49 36.8 C 74 18 165/93 H 91 03/05/20 11:00 36.8 C 71 18 168/97 H 92 03/05/20 08:39 36.5 C 73 20 205/99 H 03/05/20 08:30 74 03/05/20 07:30 36.6 C 75 18 167/90 H 90 03/05/20 04:30 36.8 C 72 18 168/88 H 94 03/05/20 03:35 37.3 C 64 18 199/104 H 90 Medications Administered Current Inpatient Medications Aspirin (Aspirin 81 Mg Ectab) 81 mg PO [facility] Stop: 03/30/20 08:59 Last Admin: 03/05/20 08:31 Dose: 81 mg Documented by: Atorvastatin Calcium (Atorvastatin 40 Mg Tab) 40 mg PO [facility] Stop: 03/30/20 08:59 Last Admin: 03/05/20 08:32 Dose: 40 mg Documented by: Buprenorphine/Naloxone (Buprenorphine/Naloxone 8/2 Mg Tab) 1 tab SL BID [facility] Stop: 03/30/20 08:59 Last Admin: 03/05/20 08:43 Dose: 1 tab Documented by: Clopidogrel Bisulfate (Clopidogrel Bisulfate 75 Mg Tab) 75 mg PO [facility] Stop: 03/30/20 08:59 Last Admin: 03/05/20 08:31 Dose: 75 mg Documented by: Enoxaparin Sodium (Enoxaparin Inj 40 Mg/0.4 Ml Syr) 40 mg SQ [facility] Stop: 04/04/20 08:59 Last Admin: 03/05/20 08:32 Dose: 40 mg Documented by: Folic Acid (Folic Acid 1 Mg Tab) 1 mg PO [facility] Stop: 03/30/20 08:59 Last Admin: 03/05/20 08:31 Dose: 1 mg Documented by: Furosemide (Furosemide 40 Mg Tab) 40 mg PO [facility] Stop: 04/04/20 08:59 Last Admin: 03/05/20 08:30 Dose: 40 mg Documented by: Gabapentin (Gabapentin 300 Mg Cap) 300 mg PO BID [facility] Stop: 04/03/20 08:59 Last Admin: 03/05/20 08:32 Dose: 300 mg Documented by: Lorazepam (Ativan) 1 mg in 2 mls @ 2 mls/min IV UD PRN; Protocol PRN Reason: EtOH Withdrawl AWSS Score 6,7 Stop: 03/30/20 05:40 Last Admin: 03/05/20 08:43 Dose: 2 mls/min Documented by: Lorazepam (Ativan) 2 mg in 4 mls @ 4 mls/min IV UD PRN; Protocol PRN Reason: EtOH Withdrawl AWSS Score 8,9 Stop: 03/30/20 05:40 Last Admin: 03/05/20 00:19 Dose: 4 mls/min Documented by: Lorazepam (Ativan) 3 mg in 6 mls @ 4 mls/min IV ONCE PRN; Protocol PRN Reason: EtOH Withdrawl AWSS Score >=10 Stop: 03/30/20 05:40 Last Admin: 03/04/20 02:15 Dose: 4 mls/min Documented by: Insulin Aspart (Insulin Aspart 100 Units/Ml 3 Ml Pen) 0 units SC ACHS [facility] Stop: 03/30/20 07:29 Last Admin: 03/05/20 11:55 Dose: 8 units Documented by: Insulin Detemir (Insulin Detemir Flexpen/Flex Touch 100 Units/Ml 3ml) 30 units SQ HS [facility] Stop: 03/30/20 20:59 Last Admin: 03/04/20 20:24 Dose: 30 units Documented by: Lisinopril ([facility] 40 Mg Tab) [facility] [place] Stop: 03/30/20 08:59 Last Admin: 03/05/20 08:32 Dose: 40 mg Documented by: Magnesium Oxide (Magnesium Oxide 400 Mg Tab) 400 mg PO [facility] Stop: 04/04/20 08:59 Last Admin: 03/05/20 08:32 Dose: 400 mg Documented by: Metoprolol Succinate (Metoprolol Succ 50mg Ext Rel Tab) 50 mg PO [facility] Stop: 03/30/20 08:59 Last Admin: 03/05/20 08:31 Dose: 50 mg Documented by: Miscellaneous (Remove Nicoderm Patch) 1 ea N/A DAILY@0859 [facility] Stop: 03/31/20 08:58 Last Admin: 03/05/20 08:33 Dose: 1 ea Documented by: Multivitamins/Minerals (Cerovite Adv Formula Tab) [facility] [place] [facility] Stop: 03/30/20 08:59 Last Admin: 03/05/20 08:31 Dose: 1 tab Documented by: Nicotine (Nicotine 21 Mg/24 Hr Tdsy) 21 mg TD [facility] Stop: 03/30/20 08:59 Last Admin: 03/05/20 08:30 Dose: 21 mg Documented by: Nitroglycerin (Nitroglycerin Sl 0.4 Mg/Tab Tab) 0.4 mg SL UD PRN PRN Reason: Chest Pain Stop: 03/30/20 05:40 Ondansetron HCl (Ondansetron Inj 2 Mg/Ml 2 Ml Vial) 4 mg IV Q6H PRN PRN Reason: Nausea Stop: 03/30/20 05:40 Thiamine HCl (Thiamine Hcl 100 Mg Tab) 100 mg PO [facility] Stop: 03/30/20 08:59 Last Admin: 03/05/20 08:31 Dose: 100 mg Documented by: Trazodone HCl (Trazodone Hcl 50 Mg Tab) 50 mg PO HS PRN PRN Reason: Insomnia Stop: 03/30/20 05:40 Venlafaxine HCl (Venlafaxine Hcl Xr 150 Mg Capxr) 150 mg PO [facility] Stop: 03/30/20 08:59 Last Admin: 03/05/20 08:31 Dose: 150 mg Documented by:
[2020-03-05] MEDS: INSULIN DETEMIR FLEXPEN/FLEX TOUCH 100 UNITS/ML 3ML SQ SCH (21:01)
[2020-03-06] MEDS: ATORVASTATIN 40 MG TAB PO SCH (07:39)
[2020-03-06] MEDS: METOPROLOL SUCC 50MG EXT REL TAB PO SCH (07:39)
[2020-03-06] MEDS: CEROVITE ADV FORMULA TAB PO SCH (07:39)
[2020-03-06] MEDS: ASPIRIN 81 MG ECTAB PO SCH (07:39)
[2020-03-06] MEDS: THIAMINE HCL 100 MG TAB PO SCH (07:39)
[2020-03-06] MEDS: ENOXAPARIN INJ 40 MG/0.4 ML SYR SQ SCH (07:39)
[2020-03-06] MEDS: MAGNESIUM OXIDE 400 MG TAB PO SCH (07:40)
[2020-03-06] MEDS: lisinopril 40 MG TAB PO SCH (07:40)
[2020-03-06] MEDS: FOLIC ACID 1 MG TAB PO SCH (07:40)
[2020-03-06] MEDS: FUROSEMIDE 40 MG TAB PO SCH (07:40)
[2020-03-06] MEDS: VENLAFAXINE HCL XR 150 MG CAPXR PO SCH (07:40)
[2020-03-06] MEDS: NICOTINE 21 MG/24 HR TDSY TD SCH (07:40)
[2020-03-06] MEDS: GABAPENTIN 300 MG CAP PO SCH ×2 (07:41→21:08)
[2020-03-06] MEDS: BUPRENORPHINE/NALOXONE 8/2 MG TAB SL SCH ×2 (07:48→21:09)
[2020-03-06] MEDS: INSULIN ASPART 100 UNITS/ML 3 ML PEN SC SCH ×4 (08:00→21:10)
[2020-03-06] MEDS: CLOPIDOGREL BISULFATE 75 MG TAB PO SCH (08:18)
[2020-03-06] MEDS: NIFEdipine EXTENDED REL 30 MG TABCR PO SCH (10:48)
--- NOTE | 2020-03-06 15:57 | Hospitalist Progress Note ---
Date of Service March 06, 2020 Assessment & Plan (1) Alcohol abuse: Drinks 1/2 gallon of vodka daily. Alcohol withdrawal protocol as noted above. Needs ongoing counseling / support. Inpatient rehab considered but patient prefers to go home. (2) Alcohol withdrawal: Drinks 1/2 gallon of vodka daily. Last consumption was 1 week ago Started on alcohol withdrawal protocol with gabapentin. Continue protocol- thiamine, MVI, gabapentin, PRN lorazepam. 03/05-Appears more calm today, and tremors have improved. 03/06-BP better after addition of nifedipine this morning. Appears that alcohol withdrawal is resolved. (3) CAD (coronary artery disease): CAD, s/p non-STEMI with PCI. Troponins slightly elevated with peak of 0.115. Cardiology consulted. Acute coronary syndrome unlikely. Dobutamine stress echo 01/23/20 did not show any stress-induced ischemia. No need for further evaluation at this time. Continue aspirin, clopidogrel, metoprolol, statin. (4) Cardiomyopathy: History of ischemic cardiomyopathy. Echo 01/01/19 showed LVEF 45-50%. Echo 01/17/20 showed LVEF 60-65%. Presented with fluid overload and edema. Pro-BNP elevated, but lungs clear by exam and chest x-ray. Fluid retention & edema probably multifactorial as discussed below. Continue metoprolol, lisinopril. IV furosemide switched or oral per Cardiology (03/04) 03/05-cont oral furosemide-edema on lower extremities continues to improve. 03/06-edema resolved and patient remains HD stable and euvolemic. (5) HTN (hypertension): BP elevated still this morning. Nifedipine ER 30mg PO daily with improvement. Continue metoprolol, lisinopril, clonidine, Lasix 40mg PO daily. Low salt diet. Avoid alcohol. (6) Edema: Marked dependent edema. History of cardiomyopathy, but does not appear to have decompensated LV CHF. Venous duplex lower extremities negative for DVT. ? right-sided heart failure due to sleep apnea, although RV looked OK on last echo. ? related to liver disease, although no radiographic evidence of cirrhosis or portal hypertension. Hypoalbuminemia could be contributing factor. Nutritional due to alcoholism +/- ? nephrotic syndrome with 3+ proteinuria. Gabapentin could be contributing factor. Consider taper and discontinue. Work with outpatient provider (7) CATALINO (obstructive sleep apnea): Noncompliant with CPAP. (8) Proteinuria: UA shows 3+ protein. Serum albumin 2.4. Presented with 3+ edema. Probable diabetic nephropathy. ? other pathology. Not acute. Continue lisinopril. Outpatient f/u with Nephrology. (9) Hypomagnesemia: repleted, cont daily Mg supplementation. 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 Hgb A1c = 7.9. Continue Levemir and NovoLog. Adjust dosing as necessary. Currently at goal (11) Neuropathy: Taking gabapentin for neuropathy. Gabapentin may be contributing to dependent edema. Consider taper and discontinuation as outpatient (12) Smoking: Nicotine patch. Cessation counseling. (13) Chronic pain: Pt is on twice daily suboxone for chronic pain. Would avoid scheduled benzodiazepines to reduce the risk of polypharmacy and medication interactions. Cont PRN benzo for now during heightened withdrawal state. (14) DVT prophylaxis: Lovenox/ambulate Full Code Dispo- to home in am. Sara Morris DO [facility] Hospitalist Admission and Anticipated Discharge Date Admission Date: February 29, 2020 Subjective cc: alcohol withdrawal -patient feeling less withdrawal symptoms today including less hallucinations -tolerating PO -trace edema continues to improve in lower legs. Review of Systems Review of Systems: All systems reviewed & are unremarkable except as noted in Subjective Physical Exam Physical Exam: CONSTITUTIONAL: WNWD, vitals as above, NAD EYES: normal conjunctivae, no scleral icterus ENT: external ear and nose normal, MMM NECK: trachea midline RESPIRATORY: clear to auscultation bilaterally, no crackles, rales or wheezes, normal respiratory effort CARDIOVASCULAR: regular rate and rhythm, S1 and 2 heard without murmurs, gallops or rubs, no JVD, trace peripheral edema bilateral lower extremities. GASTROINTESTINAL: soft, nontender, nondistended, no guarding MUSCULOSKELETAL: ambulatory SKIN: warm and dry NEUROLOGIC: CN 2-12 grossly intact, no sensory deficit, normal cognition, normal speech, tremors have resolved. PSYCHIATRIC: alert cooperative and oriented to person, place and time. Results & Data Results & Data ([facility]) Vital Signs (Past 12 Hours) Vital Signs Temp Pulse Resp BP Pulse Ox 03/06/20 07:23 36.7 C 69 16 183/96 H 93 Medications Administered Current Inpatient Medications Aspirin (Aspirin 81 Mg Ectab) 81 mg PO QAM [facility] Stop: 03/30/20 08:59 Last Admin: 03/06/20 07:39 Dose: 81 mg Documented by: Atorvastatin Calcium (Atorvastatin 40 Mg Tab) 40 mg PO [facility] Stop: 03/30/20 08:59 Last Admin: 03/06/20 07:39 Dose: 40 mg Documented by: Buprenorphine/Naloxone (Buprenorphine/Naloxone 8/2 Mg Tab) 1 tab SL BID [facility] Stop: 03/30/20 08:59 Last Admin: 03/06/20 07:48 Dose: 1 tab Documented by: Clopidogrel Bisulfate (Clopidogrel Bisulfate 75 Mg Tab) 75 mg PO [facility] Stop: 03/30/20 08:59 Last Admin: 03/06/20 08:18 Dose: 75 mg Documented by: Enoxaparin Sodium (Enoxaparin Inj 40 Mg/0.4 Ml Syr) 40 mg SQ [facility] Stop: 04/04/20 08:59 Last Admin: 03/06/20 07:39 Dose: 40 mg Documented by: Folic Acid (Folic Acid 1 Mg Tab) 1 mg PO [facility] Stop: 03/30/20 08:59 Last Admin: 03/06/20 07:40 Dose: 1 mg Documented by: Furosemide (Furosemide 40 Mg Tab) 40 mg PO [facility] Stop: 04/04/20 08:59 Last Admin: 03/06/20 07:40 Dose: 40 mg Documented by: Gabapentin (Gabapentin 300 Mg Cap) 300 mg PO BID [facility] Stop: 04/03/20 08:59 Last Admin: 03/06/20 07:41 Dose: 300 mg Documented by: Lorazepam (Ativan) 1 mg in 2 mls @ 2 mls/min IV UD PRN; Protocol PRN Reason: EtOH Withdrawl AWSS Score 6,7 Stop: 03/30/20 05:40 Last Admin: 03/05/20 20:17 Dose: 2 mls/min Documented by: Lorazepam (Ativan) 2 mg in 4 mls @ 4 mls/min IV UD PRN; Protocol PRN Reason: EtOH Withdrawl AWSS Score 8,9 Stop: 03/30/20 05:40 Last Admin: 03/05/20 00:19 Dose: 4 mls/min Documented by: Lorazepam (Ativan) 3 mg in 6 mls @ 4 mls/min IV ONCE PRN; Protocol PRN Reason: EtOH Withdrawl AWSS Score >=10 Stop: 03/30/20 05:40 Last Admin: 03/04/20 02:15 Dose: 4 mls/min Documented by: Insulin Aspart (Insulin Aspart 100 Units/Ml 3 Ml Pen) 0 units SC ACHS [facility] Stop: 03/30/20 07:29 Last Admin: 03/06/20 12:04 Dose: 10 units Documented by: Insulin Detemir (Insulin Detemir Flexpen/Flex Touch 100 Units/Ml 3ml) 30 units SQ HS [facility] Stop: 03/30/20 20:59 Last Admin: 03/05/20 21:01 Dose: 30 units Documented by: Lisinopril (Lisinopril 40 Mg Tab) 40 mg PO [facility] Stop: 03/30/20 08:59 Last Admin: 03/06/20 07:40 Dose: 40 mg Documented by: Magnesium Oxide (Magnesium Oxide 400 Mg Tab) 400 mg PO [facility] Stop: 04/04/20 08:59 Last Admin: 03/06/20 07:40 Dose: 400 mg Documented by: Metoprolol Succinate (Metoprolol Succ 50mg Ext Rel Tab) 50 mg PO [facility] Stop: 03/30/20 08:59 Last Admin: 03/06/20 07:39 Dose: 50 mg Documented by: Miscellaneous (Remove Nicoderm Patch) 1 ea N/A DAILY@0859 [facility] Stop: 03/31/20 08:58 Last Admin: 03/06/20 07:39 Dose: 1 ea Documented by: Multivitamins/Minerals (Cerovite Adv Formula Tab) 1 tab PO [facility] Stop: 03/30/20 08:59 Last Admin: 03/06/20 07:39 Dose: 1 tab Documented by: Nicotine (Nicotine 21 Mg/24 Hr Tdsy) 21 mg TD [facility] Stop: 03/30/20 08:59 Last Admin: 03/06/20 07:40 Dose: 21 mg Documented by: Nifedipine (Nifedipine Extended Rel 30 Mg Tabcr) 30 mg PO [facility] Stop: 04/05/20 09:29 Last Admin: 03/06/20 10:48 Dose: 30 mg Documented by: Nitroglycerin (Nitroglycerin Sl 0.4 Mg/Tab Tab) 0.4 mg SL UD PRN PRN Reason: Chest Pain Stop: 03/30/20 05:40 Ondansetron HCl (Ondansetron Inj 2 Mg/Ml 2 Ml Vial) 4 mg IV Q6H PRN PRN Reason: Nausea Stop: 03/30/20 05:40 Thiamine HCl (Thiamine Hcl 100 Mg Tab) 100 mg PO QAM [facility] Stop: 03/30/20 08:59 Last Admin: 03/06/20 07:39 Dose: 100 mg Documented by: Trazodone HCl (Trazodone Hcl 50 Mg Tab) 50 mg PO HS PRN PRN Reason: Insomnia Stop: 03/30/20 05:40 Venlafaxine HCl (Venlafaxine Hcl Xr 150 Mg Capxr) [facility] Stop: 03/30/20 08:59 Last Admin: 03/06/20 07:40 Dose: 150 mg Documented by:
[2020-03-06] MEDS: INSULIN DETEMIR FLEXPEN/FLEX TOUCH 100 UNITS/ML 3ML SQ SCH (21:09)
[2020-03-07] MEDS: FOLIC ACID 1 MG TAB PO SCH (08:13)
[2020-03-07] MEDS: ASPIRIN 81 MG ECTAB PO SCH (08:13)
[2020-03-07] MEDS: VENLAFAXINE HCL XR 150 MG CAPXR PO SCH (08:13)
[2020-03-07] MEDS: MAGNESIUM OXIDE 400 MG TAB PO SCH (08:14)
[2020-03-07] MEDS: GABAPENTIN 300 MG CAP PO SCH (08:14)
[2020-03-07] MEDS: ENOXAPARIN INJ 40 MG/0.4 ML SYR SQ SCH (08:14)
[2020-03-07] MEDS: FUROSEMIDE 40 MG TAB PO SCH (08:14)
[2020-03-07] MEDS: CEROVITE ADV FORMULA TAB PO SCH (08:14)
[2020-03-07] MEDS: ATORVASTATIN 40 MG TAB PO SCH (08:14)
[2020-03-07] MEDS: NICOTINE 21 MG/24 HR TDSY TD SCH (08:14)
[2020-03-07] MEDS: THIAMINE HCL 100 MG TAB PO SCH (08:15)
[2020-03-07] MEDS: lisinopril 40 MG TAB PO SCH (08:15)
[2020-03-07] MEDS: CLOPIDOGREL BISULFATE 75 MG TAB PO SCH (08:15)
[2020-03-07] MEDS: NIFEdipine EXTENDED REL 30 MG TABCR PO SCH (08:15)
[2020-03-07] MEDS: BUPRENORPHINE/NALOXONE 8/2 MG TAB SL SCH (08:15)
[2020-03-07] MEDS: METOPROLOL SUCC 50MG EXT REL TAB PO SCH (08:16)
[2020-03-07] MEDS: INSULIN ASPART 100 UNITS/ML 3 ML PEN SC SCH ×2 (08:21→12:05)
--- NOTE | 2020-03-07 12:05 | Discharge Summary ---
Date of Service March 07, 2020 Admission HPI Per Admitting Provider HISTORY OF PRESENT ILLNESS: This is a 54-year-old male with past medical history significant for type 2 diabetes, hyperlipidemia, sleep apnea, hypertension, history of ischemic cardiomyopathy, alcoholism, anemia, depression, generalized anxiety disorder, tobacco use disorder, who lives alone, presents with increasing swelling of his extremities and he was also feeling short of breath since yesterday. [place] like his abdomen is bloating and compressing his lungs. Denies any fever, chills,has smokers cough. No chest pain. Denies any headache, no blurred visions. Once in a while, he has some ringing noise in the ears, but that does not bother him. He has chronic runny nose. No sore throat. Once in a while in the morning, he vomits because of his alcoholism. Denies any blood in the vomitus. He is constipated. Once in a while, he wipes some blood because of constipation. He thinks he has BPH because sometimes he has to strain for urinating. Denies any fever, chills. He is on Lasix 20 mg p.o. daily. The patient is still smoking 1 pack of cigarettes daily and still drinking alcohol about half a gallon of vodka daily and he is willing to go to rehabilitation now. He has been in rehab in the past and his longest abstinence was 10-1/2 months. The patient was here in December with similar complaints and at that time echo was done which shows normal EF, moderate concentric left ventricular hypertrophy. He has a history of CAD status post stent with one drug-eluting stent, in December 2018. Last admission, on 01/23/2020, he had a dobutamine stress echo which was unremarkable. He was treated with Lasix and at the time of discharge, Lasix was held, but it was restarted by his PCP, which he is taking regularly. At the time of discharge, cardiology also advised Plavix to be stopped, but the patient was already discharged by that time. The patient is worried about edema. He thinks he might have CHF. Resting comfortably. he is talking in full sentences and hemodynamically stable. His alcohol is 250. He states after 3 days of stopping alcohol he gets withdrawal symptoms. In the past, he had a few seizure episodes because of stopping to drink by himself. Admission Exam Per Admitting Provider PHYSICAL EXAMINATION: GENERAL: The patient is morbidly obese, not in acute distress. VITAL SIGNS: Temperature 36.9, pulse 76, respiratory rate 16, blood pressure 160/98, oxygen 97% on 3 liters. HEENT: Pupils equal, round, and reactive to light. Oral mucosa moist. NECK: No neck masses seen. CARDIOVASCULAR: S1, S2 heard. Regular rate and rhythm, no murmur, no gallop. RESPIRATORY SYSTEM: Normal AP diameter. No accessory muscle use. Mild occasional expiratory wheezing heard, no crackles. ABDOMEN: Soft, bowel sounds present, nontender. No distention. CENTRAL NERVOUS SYSTEM: Cranial nerves II-XII grossly intact, nonfocal. EXTREMITIES: Bilateral lower extremity gross pedal edema present. Mild erythematous changes seen. Principal Diagnosis Alcohol withdrawal Alcohol abuse history h/o ischemic cardiomyopathy recurrent lower extremity edema with proteinuria and hypoalbuminemia (low protein in blood), possible nutritional edema vs drug effect. tobacco abuse Discharge Exam CONSTITUTIONAL: WNWD, vitals as above, NAD EYES: normal conjunctivae, no scleral icterus ENT: external ear and nose normal, MMM NECK: trachea midline RESPIRATORY: clear to auscultation bilaterally, no crackles, rales or wheezes, normal respiratory effort CARDIOVASCULAR: regular rate and rhythm, S1 and 2 heard without murmurs, gallops or rubs, no JVD, trace peripheral edema bilateral lower extremities. GASTROINTESTINAL: soft, nontender, nondistended, no guarding MUSCULOSKELETAL: ambulatory SKIN: warm and dry NEUROLOGIC: CN 2-12 grossly intact, no sensory deficit, normal cognition, normal speech, tremors have resolved. PSYCHIATRIC: alert cooperative and oriented to person, place and time. Discharge Data Allergies Allergy/AdvReac Type Severity Reaction Status Date / Time No Known Allergies Allergy Verified 02/29/20 02:18 Consultations 02/29/20 03:23 ED Decision to Admit Stat 02/29/20 05:41 Consult Case Management - Discharge Planning Routine 02/29/20 08:00 Consult Cardiology Routine Ordered Studies 02/29/20 05:41 US venous doppler LE BI Routine 02/29/20 07:11 US liver Routine Hospital Course (1) Alcohol abuse: (2) Alcohol withdrawal: (3) Edema: (4) CAD (coronary artery disease): (5) HTN (hypertension): (6) CATALINO (obstructive sleep apnea): (7) Proteinuria: (8) Hypomagnesemia: (9) Smoking: The patient is a 54-year-old man with a history of alcohol abuse and tobacco use disorder with recent hospitalization for alcohol withdrawal syndrome who presents again for lower extremity swelling which is a recurring issue for him. He was admitted to the hospitalist service and started on intravenous Lasix. His proBNP was elevated and diastolic congestive heart failure was considered. His alcohol level was 250 and he was placed on gabapentin withdrawal protocol with some withdrawal seen throughout his hospital stay. He was continued on thiamine folic acid and multivitamins and was given IV Ativan per AWSS scale. Cardiology was consulted and notes the patient had an echocardiogram and a dobutamine stress echocardiogram at the end of January indicating a normal LV and RV function and no significant valvular pathology with no evidence of ischemic heart disease. No further cardiac work-up was recommended and he was continued on intravenous Lasix with improvement. Work-up including imaging of the liver did not show evidence of cirrhosis but he did have severe hepatic steatosis present. Etiologies of his marked dependent edema in his lower extremities include but are not limited to nutritional deficiencies and hypoalbuminemia due to alcoholism, nephrotic syndrome with 3+ proteinuria seen on urinalysis, medication side effect such as gabapentin. Gabapentin was decreased from 3 times daily to twice daily dosing at time of discharge in an effort to start weaning him off of this. Additional work-up per outpatient primary care physician. Although he was encouraged to attend inpatient rehab following his hospital stay, he declined. At time of discharge she was hemodynamically stable and afebrile and tolerating p.o. He was mentating and ambulating at baseline and oxygenating well on room air. Close primary care follow-up was recommended. Also of note, his blood pressure was still significantly elevated on day of discharge, and nifedipine 30 mg was added to his regimen. Blood pressure should be followed up by primary care physician within a week and monitoring closely for side effects including increased leg swelling. Total Time Total Time Spent Total Time Spent (In Minutes): 30 Total Time Includes: Examination of the Patient, Discharge Planning, Medication Reconciliation and Communication With Other Providers Discharge Plan Discharge Items Patient Disposition: Home - Self-Care Reason For Visit: EDEMA Discharge Diagnosis: Alcohol withdrawal Alcohol abuse history h/o ischemic cardiomyopathy recurrent lower extremity edema with proteinuria and hypoalbuminemia (low protein in blood) tobacco abuse Condition on Discharge: Good Activity: Resume your previous activity Non-emergency contact: Primary Care Provider Call non-emergency contact if: you have any medication questions and your symptoms worsen Follow-up/Referrals: Charity Kasper MD [Primary Care Provider] - Diet: Carb Consistent or DM2 and Heart Healthy Addtl Attending Provider Instructions: Please take all medications as instructed on discharge list below. You are being given a new blood pressure medication to take in addition to your other medications. Please have your primary care provider (PCP) recheck your blood pressure on follow-up in one week. It is recommended to consider follow-up with a kidney specialist as outpatient in the setting of protein in your urine. You also have low protein in your blood and this may be contributing to your lower leg swelling that is recurrent. Would defer to Dr. Reed for initial workup and final recommendations regarding this. Recommend repeat basic metabolic panel (nonfasting bloodwork) to recheck lytes, and kidney function on increased Lasix dosage. Please follow-up with PCP in one week after discharge from the hospital. Important topics for review are: review new medications and ensure no side effects, recheck BP after starting nifedipine XR 30mg daily, discuss lower leg swelling and consideration of nephrology referral vs gabapentin reduction vs other additional strategy, ensure you are staying quit from tobacco and alcohol, consideration and discussion regarding entering into an inpatient drug and alcohol treatment program. It was a pleasure taking care of you! Please call if you have any questions or problems. You can reach a [facility] hospitalist on duty at [facility] 24 hours a day by calling [phone]. Take care of yourself. Sara Morris, [facility] Hospitalist Pending Studies at Discharge: No Stand-Alone Forms: My [facility], Opioid Pain Management, Smoking Cessation Medications and DC Order Prescriptions: New nicotine [Nicoderm CQ] 21 mg/24 hr Patch 24 Hour 21 mg transdermal QAM Qty: 14 RF: 1 nifedipine [Procardia XL] 30 mg Tablet Extended Release 24hr 30 mg PO QAM Qty: 30 RF: 1 gabapentin 300 mg Capsule 300 mg PO BID Qty: 60 RF: 0 furosemide 40 mg Tablet 40 mg PO QAM Qty: 30 RF: 0 magnesium oxide 400 mg (241.3 mg magnesium) Tablet 400 mg PO QAM Qty: 30 RF: 0 thiamine HCl (vitamin B1) [Vitamin B-1] 100 mg Tablet 100 mg PO QAM Qty: 30 RF: 1 Continued insulin aspart U-100 [Novolog Flexpen U-100 Insulin] 100 unit/mL Insulin Pen See Rx Instructions .ROUTE .COMPLEX RF: 0 trazodone 50 mg Tablet 50 mg PO HS PRN (Reason: Insomnia) RF: 0 folic acid 1 mg tablet 1 mg PO QAM RF: 0 buprenorphine-naloxone 8-2 mg tablet, sublingual 1 tab SUBLINGUAL BID RF: 0 clopidogrel [Plavix] 75 mg tablet 75 mg PO QAM Qty: 30 RF: 1 lisinopril [Zestril] 40 mg tablet 40 mg PO QAM Qty: 30 RF: 1 atorvastatin [Lipitor] 40 mg tablet 40 mg PO QAM RF: 0 metoprolol succinate [Toprol XL] 50 mg tablet extended release 24 hr 50 mg PO QAM RF: 0 venlafaxine [Effexor XR] 150 mg capsule,extended release 24hr 150 mg PO QAM RF: 0 aspirin [Ecotrin Low Strength] 81 mg tablet,delayed release (DR/EC) 81 mg PO QAM RF: 0 Trulicity 0.75 mg/0.5 mL pen injector 0.75 mg SUBCUT WK RF: 0 Levemir FlexTouch U-100 Insuln 100 unit/mL (3 mL) insulin pen 30 unit subcut HS RF: 0 Discontinued gabapentin 300 mg capsule 300 mg PO TID Qty: 90 RF: 1 furosemide 20 mg tablet 20 mg PO QAM RF: 0 Discharge Orders: Discharge Order (Routine); Ordered 03/07/20 Ordered By: Sara Campbell/Other Patient Handouts: Managing Type 2 Diabetes Admission Data Admit Date/Time: 02/29/20 04:37 Attending Provider: Sara Morris Admit Provider: Jonathan Payne Primary Care Provider: Charity Kasper Other Providers: Juan Diego Meng Other Interventions: Discharge Summary Assessment (RN) Last Done: 03/07/20 11:45
--- NOTE | 2020-03-09 11:03 | Coding Query ---
CODING QUERY To promote full compliance with coding requirements relating to patient care, provider participation is requested in all cases of remote medical coder uncertainty. Please assist us with the question(s) below: Coding Question(s): 1. Edema is documented throughout the record with documentation, including on the Discharge Summary, of several possible etiologies including, "? related to liver disease, although no radiographic evidence of cirrhosis or portal hypertension". Cardiology Consultation and Cardiology Progress Notes document Cirrhosis of the liver with Cardiology Progress Note on 03/01/20 documenting, "Cirrhosis of liver: The patient continues to diuresis and his lower extremity edema is improving. The patient is listed as having sleep apnea but he has no idea. He does not use CPAP at home. Although his lower extremity edema is most likely due to alcoholic liver disease I think an evaluation for sleep apnea in the future would be beneficial as I believe he is at risk which may be contributing to his lower extremity edema. Otherwise he is doing well and I would continue the diuretics". Please specify below, in your clinical opinion, regarding Cirrhosis of the liver. ( ) Alcoholic Cirrhosis of the Liver, treated with diuretics ( ) Cirrhosis of the Liver, Not due to Alcohol, treated with diuretics ( x ) Cirrhosis of the Liver is Ruled-Out--Possible edema from nutritional deficiency in the setting of chronic severe alcoholism. Regarding diagnosis of cirrhosis there is no evidence on imaging supporting this, however, the gold standard for this diagnosis is a liver biopsy. He was found to have hepatomegaly and severe hepatic steatosis on liver ultrasound. Although it is a risk from alcoholism, there is no data to support this for now. sms ( ) Other: Please Specify 2. Edema is documented throughout the record with documentation, including on the Discharge Summary, of several possible etiologies including, " Hypoalbuminemia could be contributing factor. Nutritional due to alcoholism". Edema, Nutritional codes to Malnutrition, Severe and it is not clear if this documentation was meaning possible Nutritional Edema, therefore Severe Malnutrition. Please specify below, to be sure of capturing correct coding. ( x ) Possible Nutritional Edema - Severe Malnutrition ( ) No Nutritional Edema - No Severe Malnutrition ( ) Other: Please Specify Physician's Response(s): Thank you Maureen Encinas Principal Diagnosis: "that condition established after study, to be chiefly responsible for occasioning the admission of the patient to the hospital for care." Co-Existing Principal Diagnosis: "when two or more diagnoses equally meet the criteria for principal diagnosis as determined by the circumstances of admission, diagnostic work up, and/or therapy provided, and the Alphabetic Index, Tabular List, or another coding guideline does not provide sequencing direction, any one of the diagnoses may be sequenced first." "When the physician has documented what appears to be a current diagnosis in the body of the record, but has not included the diagnosis in the final diagnostic statement, the physician should be asked whether the diagnosis should be added." (Source [facility]oding [facility] 2 QTR90. p3-4) REGAN
== END 2020-03-07 13:10 | disposition home or self-care (01) | DRG 896 ==
LOC: ED 00:43 → SUATTDRO 04:37 → 2S 04:37 → 2N 03-05 15:02

== ENCOUNTER 2020-07-24 13:26 | Inpatient (IN) ==
--- NOTE | 2020-07-24 14:57 | Emergency Department Note ---
History of Present Illness General Chief complaint: Alcohol Withdrawal Stated complaint: SEEKING HELP DUE TO DRINKING/WANTS TO GO TO REHAB Time Seen by Provider: 07/24/20 14:27 Source: patient and other ([facility] nurse Megan) History of Present Illness Provider complaint: Alcohol abuse Onset (ago): year(s) Location: head Pain Consistency: + constant Quality: + other (Alcoholism) Relieved By: + none Associated symptoms: no chest pain, no cough, no fever/chills, no headaches, no nausea/vomiting, no shortness of breath and no weakness This is a 55-year-old male who states he was sent here by his nurse for medical clearance to be sent to alcohol rehab near [facility]. He states that she told him that he was excepted and just needs to be cleared. He denies any symptoms at this time. He states that he just drank 1/5 of vodka prior to arrival. He does have a longstanding history of alcoholism and has been drinking since he was 11 years old. He has tried to stop on his own but has had withdrawal seizures. Currently he is not having any withdrawal symptoms as he just drank alcohol. He denies any recent illness. He does have some leg swelling which is chronic for him and worse when he starts drinking alcohol. He denies any pain to his legs. He denies any fever, chest pain, shortness of breath, cough or cold symptoms, abdominal pain, vomiting, diarrhea or urinary symptoms. Home Medications Medication Instructions Recorded Confirmed Type insulin aspart U-100 [Novolog See Rx Instructions .ROUTE .COMPLEX 12/16/17 07/24/20 History Flexpen U-100 Insulin] aspirin [Ecotrin Low Strength] 81 mg PO QAM 08/26/19 07/24/20 History metoprolol succinate [Toprol XL] 50 mg PO QAM 08/26/19 07/24/20 History venlafaxine [Effexor XR] 150 mg PO QAM 08/26/19 07/24/20 History buprenorphine-naloxone 1 tab SUBLINGUAL BID 01/16/20 07/24/20 History folic acid 1 mg PO QAM 01/16/20 07/24/20 History lisinopril [Zestril] 40 mg PO QAM #30 tab 01/24/20 07/24/20 Rx Levemir FlexTouch U-100 Insuln 30 unit SUBCUT HS 02/29/20 07/24/20 History furosemide 40 mg PO QAM #30 tab 03/07/20 07/24/20 Rx gabapentin 300 mg PO BID #60 cap 03/07/20 07/24/20 Rx magnesium oxide 400 mg PO QAM #30 tab 03/07/20 07/24/20 Rx nicotine [Nicoderm CQ] 21 mg TRANSDERMAL QAM #14 ea 03/07/20 07/24/20 Rx thiamine HCl (vitamin B1) [Vitamin 100 mg PO QAM #30 tab 03/07/20 07/24/20 Rx B-1] albuterol sulfate 2.5 mg INHALATION QID PRN 07/24/20 07/24/20 History atorvastatin 80 mg PO DAILY 07/24/20 07/24/20 History clotrimazole 1 applic TOPICAL BID 07/24/20 07/24/20 History cyanocobalamin (vitamin B-12) 1,000 mcg PO DAILY 07/24/20 07/24/20 History [Vitamin B-12] multivitamin 1 tab PO DAILY 07/24/20 07/24/20 History naloxone [Narcan] 0 mg INTRANASAL DIRECTED PRN 07/24/20 07/24/20 History nitroglycerin [Nitrostat] 0.4 mg SUBLINGUAL DIRECTED PRN 07/24/20 07/24/20 History semaglutide [Ozempic] 0.5 mg SUBCUT WK 07/24/20 07/24/20 History urea 1 applic TOPICAL BID 07/24/20 07/24/20 History Allergies Allergy/AdvReac Type Severity Reaction Status Date / Time No Known Allergies Allergy Verified 07/24/20 15:25 Past Med/Surg History Medical History (Updated 07/24/20 @ 19:37 by Howard Paredes MD) Alcohol use disorder Bilateral edema of lower extremity Chronic anemia CKD (chronic kidney disease), stage III Diabetes mellitus type 2 with complications TONEY (dyspnea on exertion) Edema Elevated troponin HTN (hypertension) Mood disorder Neuropathy NSTEMI (non-ST elevated myocardial infarction) Obesity CATALINO (obstructive sleep apnea) CATALINO (obstructive sleep apnea) Proteinuria Smoking Tobacco use disorder Type 2 diabetes mellitus Surgical History History of cardiac catheterization 1 ELIESER to proximal OM by Dr. Guerrero on 01/01/19 History of lymph node biopsy Family History Other Heart disease Social History (Updated 07/24/20 @ 17:40 by Josselyn Perales PA-C) Smoking Status: Current every day smoker Tobacco Type: Cigarettes Years Smoked: 39; Cigarettes Per Day: 2 packs/day; Second Hand Exposure: Yes; Do You Dip or Chew Tobacco: No; Tobacco Cessation Education Requested by Patient: No Hx Alcohol Use: Yes Alcohol type: hard liquor Alcohol type Comment: 12 gallon vodka a day Hx Substance Use: Yes Prescribed Medications Comment: Suboxone Last Used Substance: Unknown Last Used Substance Other:: takes suboxone Substance Use Type Other:: pt does take suboxone BID Preferred Language: Malawian Communication Ability: Effective Automatic Fabric Cutter Required: No Beliefs That Will Affect Care: None marital status: Current Living Situation: Alone Current Living Situation Comment: in RV in [employer] driveway current occupational status: unemployed How many Children do You have: 2 Other Information That Helps Us Care for You: No Feels Safe at Home: Yes Safety Concerns: Feels Safe At This Time Assistive Devices: Glasses Review of Systems See HPI for pertinent positives & negatives. and A total of 10 systems reviewed and were otherwise negative Physical Exam Vital Signs Vital Signs - 24 hr 07/24/20 13:29 07/24/20 15:24 Temperature 36.8 C Temperature Source Oral Pulse Rate 115 H 94 H Pulse Rate [Apical] 94 H Pulse Rhythm Regular Pulse Strength Normal Respiratory Rate 20 20 Respiratory Effort / Characteristics Non-Labored Spontaneous Respiratory Depth Normal Respiratory Pattern Regular Blood Pressure 159/88 H Blood Pressure [Right Arm] 113/68 Blood Pressure Mean 111 Blood Pressure Mean [Right Arm] 83 Blood Pressure Position Sitting Pulse Oximetry 93 98 Oxygen Delivery Method Room Air Room Air Sepsis Recent Fever Within 48 Hours No Sepsis New/Unexplained Change in Mental Status No Sepsis Action Taken by Nursing No Action Required Constitutional: Vital signs reviewed. Eyes: Pupils are equal round reactive to light. Conjunctiva are noninjected. ENT: Pharynx is clear without erythema or exudate. Mucous membranes are dry. Neck supple without meningeal signs. Respiratory: Clear to auscultation bilaterally. Breath sounds are equal bilaterally. Cardiovascular: Regular rate and rhythm. No rubs or gallops. GI: Soft, nondistended and nontender. Bowel sounds are present. Musculoskeletal: Bilateral lower extremity edema. No lower extremity tenderness. Integumentary: No cyanosis. or jaundice. Neurological: The patient is awake and alert. No focal deficits. Psychiatric: Appears slightly intoxicated. Course Administered Medications Albuterol (Albuterol 0.083% Nebu Soln 3 Ml Vial) 2.5 mg NEB Q6R LUCINDA Stop: 08/23/20 18:59 Last Admin: 07/24/20 19:01 Dose: 2.5 mg Documented by: [id number] Sodium Chloride (Nss 1000ml) 1,000 mls @ 80 mls/hr IV .[id number] LUCINDA Stop: 07/25/20 06:59 Last Admin: 07/24/20 18:41 Dose: 80 mls/hr Documented by: [id number] Discontinued Medications Lorazepam (Ativan) 1 mg in 2 mls @ 2 mls/min IV NOW STA Stop: 07/24/20 17:14 Last Admin: 07/24/20 17:55 Dose: 2 mls/min Documented by: [id number] Medical Decision Making Differential Diagnosis Alcohol dependence, alcohol intoxication, alcohol withdrawal, metabolic derangement, CHF, dehydration Medical Records Attestation: I reviewed the patient's medical records. I did perform a limited focused review of portions of the patient's old chart on the electronic medical record. The patient was admitted in February of last year for alcohol withdrawal, shortness of breath and CHF exacerbation. Home Medications Current Medication List: was personally reviewed by me Laboratory Data Attestation: I reviewed the patient's lab results. Result diagrams: 07/24/20 15:13 07/24/20 15:13 Lab Results 07/24/20 07/24/20 07/24/20 Range/Units 15:13 15:13 15:13 WBC 3.68 L (4.8-10.8) K/uL RBC 3.75 L (4.7-6.1) M/uL Hgb 11.8 L (14.0-18.0) g/dL Hct 34.6 L (42-52) % MCV 92.3 (80-100) fL MCH 31.5 (25-34) pg MCHC 34.1 (32-36) g/dL RDW Std Deviation 40.6 (36.4-46.3) fL RDW Coeff of Alberto 12.0 (11.5-14.5) % Plt Count 114 L (130-400) K/uL MPV 9.7 (7.4-10.4) fL Immature Gran % (Auto) 0.0 % Neut % (Auto) 35.4 % Lymph % (Auto) 53.8 % Cochran % (Auto) 7.9 % Eos % (Auto) 2.4 % Baso % (Auto) 0.5 % Neut # (Auto) 1.30 L (1.4-6.5) K/uL Lymph # (Auto) 1.98 (1.2-3.4) K/uL Cochran # (Auto) 0.29 (0.11-0.59) K/uL Eos # (Auto) 0.09 (0-0.5) K/uL Baso # (Auto) 0.02 (0-0.2) K/uL Immature Gran # (Auto) 0.00 (0.00-0.02) K/uL Sodium 137 (136-145) mmol/L Potassium 4.1 (3.5-5.1) mmol/L Chloride 100 (98-107) mmol/L Carbon Dioxide 28 (21-32) mmol/L Anion Gap 10.0 (3-11) BUN 20 H (7-18) mg/dl Creatinine 1.47 H (0.6-1.4) mg/dl Est Cr Clr Drug Dosing 73.7 ml/min Est GFR ( Amer) 60.9 Est GFR (Non-Af Amer) 52.6 BUN/Creatinine Ratio 13.4 (10-20) Glucose 319 H* (70-99) mg/dl Calcium 8.3 L (8.5-10.1) mg/dl Total Bilirubin 0.6 (0.2-1) mg/dl AST 97 H (15-37) U/L ALT 74 (12-78) U/L Alkaline Phosphatase 108 (45-117) U/L Total Protein 6.4 (6.4-8.2) gm/dl Albumin 2.5 L (3.4-5.0) gm/dl Globulin 3.9 (2.5-4.0) gm/dl Albumin/Globulin Ratio 0.6 L (0.9-2) Beta-Hydroxybutyric Acd 5.12 H (0.2-2.81) mg/dl Ethyl Alcohol mg/dL 193.4 H (0-3) mg/dl COVID-19 Eval Order SARS-CoV-2 (PCR) (Negative) Influenza Type A (PCR) (Neg) Influenza Type B (PCR) (Neg) RSV (RT-PCR) (Neg) 07/24/20 07/24/20 Range/Units 15:22 15:22 WBC (4.8-10.8) K/uL RBC (4.7-6.1) M/uL Hgb (14.0-18.0) g/dL Hct (42-52) % MCV (80-100) fL MCH (25-34) pg MCHC (32-36) g/dL RDW Std Deviation (36.4-46.3) fL RDW Coeff of Alberto (11.5-14.5) % Plt Count (130-400) K/uL MPV (7.4-10.4) fL Immature Gran % (Auto) % Neut % (Auto) % Lymph % (Auto) % Cochran % (Auto) % Eos % (Auto) % Baso % (Auto) % Neut # (Auto) (1.4-6.5) K/uL Lymph # (Auto) (1.2-3.4) K/uL Cochran # (Auto) (0.11-0.59) K/uL Eos # (Auto) (0-0.5) K/uL Baso # (Auto) (0-0.2) K/uL Immature Gran # (Auto) (0.00-0.02) K/uL Sodium (136-145) mmol/L Potassium (3.5-5.1) mmol/L Chloride (98-107) mmol/L Carbon Dioxide (21-32) mmol/L Anion Gap (3-11) BUN (7-18) mg/dl Creatinine (0.6-1.4) mg/dl Est Cr Clr Drug Dosing ml/min Est GFR ( Amer) Est GFR (Non-Af Amer) BUN/Creatinine Ratio (10-20) Glucose (70-99) mg/dl Calcium (8.5-10.1) mg/dl Total Bilirubin (0.2-1) mg/dl AST (15-37) U/L ALT (12-78) U/L Alkaline Phosphatase (45-117) U/L Total Protein (6.4-8.2) gm/dl Albumin (3.4-5.0) gm/dl Globulin (2.5-4.0) gm/dl Albumin/Globulin Ratio (0.9-2) Beta-Hydroxybutyric Acd (0.2-2.81) mg/dl Ethyl Alcohol mg/dL (0-3) mg/dl COVID-19 Eval Order CovFluRsv at [facility] SARS-CoV-2 (PCR) NEGATIVE (Negative) Influenza Type A (PCR) Negative (Neg) Influenza Type B (PCR) Negative (Neg) RSV (RT-PCR) Negative (Neg) Imaging Data Radiologist's Impression: Chest X-Ray 07/24/20 14:59 XR chest 2V PA/lateral HISTORY: 55 years-old Male eval for CHF acute shortness of breath COMPARISON: Chest radiograph 02/29/2020 TECHNIQUE: PA and lateral views of the chest FINDINGS: Cardiac mediastinal and hilar silhouettes are within normal limits. No pneumothorax, pleural effusion or overt pulmonary edema. Mild chronic i nterstitial coarsening. Degenerative changes of the shoulders and spine. IMPRESSION: No acute process. ACT 112: Negative or not required by law. The above report was generated using voice recognition software. It may contain grammatical, syntax or spelling errors. Electronically signed by: Suhas Ramos M.D. 07/24/2020 4:04 PM MDM Narrative I did evaluate the patient as noted above. I did obtain history from the patient as well is the nurse Megan from the [facility]. She states that she sent the patient in here for medical detox for alcohol. He has a history of significant withdrawal symptoms including seizures. Once he is medically cleared he will be [facility]. IV access was established. I did place an order for continuous cardiac monitoring. The monitor showed normal sinus rhythm at a rate of 90 bpm. I did order and personally reviewed the images of the patient's chest x-ray as described above. He has stable cardiomegaly and without pulmonary edema. I did order and review the patient's blood work as noted in the electronic medical record. He has chronic pancytopenia. Electrolytes are unremarkable. Creatinine is elevated 1.47. Glucose is 319. Alcohol is 193. I did reevaluate the patient. He has not yet developed any withdrawal symptoms. He likely will soon. He will be hospitalized for further care and evaluation. His Covid test screening is negative. I did discuss case with the hospitalist and case advocate. Impression & Plan Alcoholic intoxication, Alcohol use disorder, Acute hyperglycemia, Pancytopenia Discharge Plan Visit Data Chief Complaint: Alcohol Withdrawal Stated Complaint: SEEKING HELP DUE TO DRINKING/WANTS TO GO TO REHAB ED Provider: Howard Paredes Discharge Problem: Alcoholic intoxication, Alcohol use disorder, Acute hyperglycemia, Pancytopenia Patient Disposition: Admitted As Inpatient Discharge Instructions Interventions: ED Discharge Assessment Last Done: 07/24/20 17:55
[2020-07-24 15:32] LABS: Hematocrit (blood only) 34.6 % (42-52); Hemoglobin 11.8 g/dL (14.0-18.0); Mean Corpuscular Hemoglobin 31.5 pg (25-34); Mean Corpuscular Hgb Conc 34.1 g/dL (32-36); Mean Corpuscular Volume 92.3 fL (80-100); Mean Platelet Volume 9.7 fL (7.4-10.4); Platelet Count 114 K/uL (130-400); RDW Standard Deviation 40.6 fL (36.4-46.3); Red Blood Count 3.75 M/uL (4.7-6.1); White Blood Count 3.68 K/uL (4.8-10.8)
[2020-07-24 16:06] LABS: Albumin Globulin Ratio 0.6 (0.9-2); Albumin Level 2.5 gm/dl (3.4-5.0); BUN Creatinine Ratio 13.4 (10-20); Bilirubin,Total 0.6 mg/dl (0.2-1); Calcium 8.3 mg/dl (8.5-10.1); Creatinine Clr Calc Pharmacy 73.7 ml/min; Est GFR (African American) 60.9; Est GFR (Non-African American) 52.6; Potassium 4.1 mmol/L (3.5-5.1); Total Protein 6.4 gm/dl (6.4-8.2)
--- NOTE | 2020-07-24 16:06 | XRay Report ---
XR chest 2V PA/lateral HISTORY: 55 years-old Male eval for CHF acute shortness of breath COMPARISON: Chest radiograph 02/29/2020 TECHNIQUE: PA and lateral views of the chest FINDINGS: Cardiac mediastinal and hilar silhouettes are within normal limits. No pneumothorax, pleural effusion or overt pulmonary edema. Mild chronic interstitial coarsening. Degenerative changes of the shoulder s and spine. IMPRESSION: No acute process. ACT 112: Negative or not required by law. The above report was generated using voice recognition software. It may contain grammatical, syntax o r spelling errors. Electronically signed by: Suhas Ramos M.D. 07/24/2020 4:04 PM
[2020-07-24 16:07] LABS: Globulin 3.9 gm/dl (2.5-4.0)
[2020-07-24 16:15] LABS: Influenza A virus by PCR Negative (Neg); Influenza B virus by PCR Negative (Neg); RSV by PCR Negative (Neg); SARS CoV2 RNA(COVID-19) InHosp NEGATIVE (Negative)
[2020-07-24 16:22] LABS: Basophils # (auto) 0.02 K/uL (0-0.2); Basophils % (auto) 0.5 %; Eosinophils # (auto) 0.09 K/uL (0-0.5); Eosinophils % (auto) 2.4 %; Lymphocytes # (auto) 1.98 K/uL (1.2-3.4); Lymphocytes % (auto) 53.8 %; Monocytes # (auto) 0.29 K/uL (0.11-0.59); Monocytes % (auto) 7.9 %; Neutrophils % (auto) 35.4 %
[2020-07-24 16:41] LABS: Beta-Hydroxybutyrate 5.12 mg/dl (0.2-2.81)
[2020-07-24] MEDS ORDERED: LORazepam 1 MG/2 ML VIAL IV STA (17:13)
[2020-07-24] MEDS ORDERED: INSULIN HUMAN 70% NPH/30% REGULAR SC STA (17:30)
--- NOTE | 2020-07-24 17:45 | History & Physical Report ---
Date of Service July 24, 2020 Assessment & Plan (1) Alcohol abuse: Pt is 55 y/o M with PMH uncontrolled DM II, HTN, HLD, alcohol abuse, CAD s/p stent, chronic back pain, untreated CATALINO, tobacco abuse, neuropathy, CKD III presented to ER for medical clearance to go to alcohol rehab. Working with [facility] addiction coordinator and [facility] however needs medical detox secondary to h/o withdrawal seizures in past. Drinks half gallon of vodka a day. Reports drinks 1/5 vodka prior to ER arrival today. In ER vitals stable. ETOH level: 193 -Dose Ativan now -Monitor on telemetry -Alcohol withdrawal protocol with gabapentin -Thiamine, multivitamin, folic acid daily -Patient wanting to go to rehab. Per [facility] required medical detox first. [facility] number [phone] -Magnesium, phosphorus labs in a.m. (2) CKD (chronic kidney disease), stage III: Creatinine 1.4. Was 1.3 on 07/08/2020 and prior was 0.9 in 02/2020 -Hold Lasix for tomorrow -Gentle IVF -Monitor renal functions, avoid nephrotoxic agents when possible (3) CAD (coronary artery disease): S/p stent History of cardiomyopathy History negative stress test in 01/2020. Echo in 12/2019 EF 60-65% -Denies chest pain, shortness of breath -Continue aspirin, Plavix, metoprolol, statin (4) HTN (hypertension): -Continue lisinopril, metoprolol (5) Type 2 diabetes mellitus: A1c: 11.5 in 07/15/20 Patient admits noncompliance with medications and is not checking BSG's at home. He is following outpatient with [facility] and is supposed to start Ozempic soon -Hold home insulin -BSG in 300s currently. Patient did not have any insulin today and just ate sandwich while in ER -Dose insulin R 9 units IV now -Basal bolus insulin per protocol (6) Chronic anemia: Hgb: 11.8. Baseline~12 -Monitor H&H (7) Chronic pain: On Suboxone -Continue Suboxone (8) Tobacco use disorder: -Smoking cessation encouraged -Nicotine patch (9) CATALINO (obstructive sleep apnea): History noncompliance with CPAP in past. Patient to have upcoming sleep study outpatient (10) Neuropathy: -Hold home gabapentin as is on gabapentin withdrawal protocol as above DVT Prophylaxis -SCDs Full Code as per discussion with pt Follows with Dr Reed for routine care Pt was seen and care coordinated with Dr Payne. See addendum History of Present Illness Chief Complaint: Medical clearance for alcohol rehab Primary Care Provider: Charity Kasper MD Pt is 55 y/o M with PMH uncontrolled DM II, HTN, HLD, alcohol abuse, CAD s/p stent, chronic back pain, untreated CATALINO, tobacco abuse, neuropathy, CKD III presented to ER for medical clearance to go to alcohol rehab. Patient has been working with [facility] addiction coordinator and patient was to go to [facility] however needed medical clearance first. Upon arrival to ER it is reported will not except patient currently as it is requested he has medical detox from alcohol as he has history of alcohol withdrawal seizures in past. Patient drinks half gallon of vodka a day. Reports drinks 1/5 vodka prior to ER arrival today. Patient reports chronic lower extremity edema and feels it is at baseline. Has chronic cough and wheezing and denies any increased cough or wheezing. States had nebulizer in past, but is working with outpatient for new one. Noncompliant with CPAP in the past. Patient states has sleep study in the near future to be rechecked. Denies any other complaints currently. Does not feel withdrawal symptoms yet. Denies fever/chills, diaphoresis, N/V/D/C, HORVATH, dizziness, syncope, vision changes, neck pain, CP, SOB, palpitations, sore throat, choking, otalgia, rhinorrhea, abdominal pain, paresthesias, weakness, extremity weakness, urinary symptoms. Allergies Allergy/AdvReac Type Severity Reaction Status Date / Time No Known Allergies Allergy Verified 07/24/20 15:25 Home Medications Medication Instructions Recorded Confirmed Type insulin aspart U-100 [Novolog See Rx Instructions .ROUTE .COMPLEX 12/16/17 07/24/20 History Flexpen U-100 Insulin] aspirin [Ecotrin Low Strength] 81 mg PO QAM 08/26/19 07/24/20 History metoprolol succinate [Toprol XL] 50 mg PO QAM 08/26/19 07/24/20 History venlafaxine [Effexor XR] 150 mg PO QAM 08/26/19 07/24/20 History buprenorphine-naloxone 1 tab SUBLINGUAL BID 01/16/20 07/24/20 History folic acid 1 mg PO QAM 01/16/20 07/24/20 History lisinopril [Zestril] 40 mg PO QAM #30 tab 01/24/20 07/24/20 Rx Levemir FlexTouch U-100 Insuln 30 unit SUBCUT HS 02/29/20 07/24/20 History furosemide 40 mg PO QAM #30 tab 03/07/20 07/24/20 Rx gabapentin 300 mg PO BID #60 cap 03/07/20 07/24/20 Rx magnesium oxide 400 mg PO QAM #30 tab 03/07/20 07/24/20 Rx nicotine [Nicoderm CQ] 21 mg TRANSDERMAL QAM #14 ea 03/07/20 07/24/20 Rx thiamine HCl (vitamin B1) [Vitamin 100 mg PO QAM #30 tab 03/07/20 07/24/20 Rx B-1] albuterol sulfate 2.5 mg INHALATION QID PRN 07/24/20 07/24/20 History atorvastatin 80 mg PO DAILY 07/24/20 07/24/20 History clotrimazole 1 applic TOPICAL BID 07/24/20 07/24/20 History cyanocobalamin (vitamin B-12) 1,000 mcg PO DAILY 07/24/20 07/24/20 History [Vitamin B-12] multivitamin 1 tab PO DAILY 07/24/20 07/24/20 History naloxone [Narcan] 0 mg INTRANASAL DIRECTED PRN 07/24/20 07/24/20 History nitroglycerin [Nitrostat] 0.4 mg SUBLINGUAL DIRECTED PRN 07/24/20 07/24/20 History semaglutide [Ozempic] 0.5 mg SUBCUT WK 07/24/20 07/24/20 History urea 1 applic TOPICAL BID 07/24/20 07/24/20 History Past Med/Surg History Medical History (Updated 07/24/20 @ 19:37 by Howard Paredes MD) Alcohol use disorder Bilateral edema of lower extremity Chronic anemia CKD (chronic kidney disease), stage III Diabetes mellitus type 2 with complications TONEY (dyspnea on exertion) Edema Elevated troponin HTN (hypertension) Mood disorder Neuropathy NSTEMI (non-ST elevated myocardial infarction) Obesity CATALINO (obstructive sleep apnea) CATALINO (obstructive sleep apnea) Proteinuria Smoking Tobacco use disorder Type 2 diabetes mellitus Surgical History History of cardiac catheterization 1 ELIESER to proximal OM by Dr. Guerrero on 01/01/19 History of lymph node biopsy Family History Other Heart disease Social History (Updated 07/24/20 @ 17:40 by Josselyn Perales PA-C) Smoking Status: Current every day smoker Tobacco Type: Cigarettes Years Smoked: 39; Cigarettes Per Day: 2 packs/day; Second Hand Exposure: Yes; Do You Dip or Chew Tobacco: No; Tobacco Cessation Education Requested by Patient: No Hx Alcohol Use: Yes Alcohol type: hard liquor Alcohol type Comment: 1/2 gallon vodka a day Hx Substance Use: Yes Prescribed Medications Comment: Suboxone Last Used Substance: Unknown Last Used Substance Other:: takes suboxone Substance Use Type Other:: pt does take suboxone BID Preferred Language: Tamaz[place] Communication Ability: Effective Records Administrator Required: No Beliefs That Will Affect Care: None marital status: Current Living Situation: Alone Current Living Situation Comment: in RV in [place] [address] current occupational status: unemployed How many Children do You have: 2 Other Information That Helps Us Care for You: No Feels Safe at Home: Yes Safety Concerns: Feels Safe At This Time Assistive Devices: Oxygen - Continuous Review of Systems Review of Systems: All systems reviewed & are unremarkable except as noted in HPI & below Physical Exam Physical Exam: General: no distress, obese Head: normocephalic, atraumatic Eyes: PERRL, EOM's intact, conjunctiva non-injected, anicteric ENT: normal inspection external ears, nose, mucous membranes moist Neck: supple, trachea midline Lungs: no respiratory distress, + wheezing throughout, no rhonchi/rales CV: RRR, no murmur, 1+ pretibial edema Abd: normal BS, soft, non-tender Ext: no cyanosis, no calf tenderness Neuro: A&O x 3, no focal deficits noted, normal affect Skin: warm, dry Results & Data Results & Data ([facility]) Vital Signs (Past 12 Hours) Vital Signs Temp Pulse Pulse Resp BP BP Pulse Ox 07/24/20 15:24 94 H 94 H 20 113/68 98 07/24/20 13:29 36.8 C 115 H 20 159/88 H 93 Laboratory Results Short CBC 07/24/20 07/24/20 Range/Units 15:13 15:13 WBC 3.68 L (4.8-10.8) K/uL Hgb 11.8 L (14.0-18.0) g/dL Hct 34.6 L (42-52) % Plt Count 114 L (130-400) K/uL Glucose 319 H* (70-99) mg/dl BMP 07/24/20 15:13 Sodium 137 Potassium 4.1 Chloride 100 Carbon Dioxide 28 BUN 20 H Creatinine 1.47 H Glucose 319 H* Calcium 8.3 L Liver Function 07/24/20 Range/Units 15:13 Total Bilirubin 0.6 (0.2-1) mg/dl AST 97 H (15-37) U/L ALT 74 (12-78) U/L Alkaline Phosphatase 108 (45-117) U/L Albumin 2.5 L (3.4-5.0) gm/dl Diagnostic Findings Chest X-Ray 07/24/20 14:59 XR chest 2V PA/lateral HISTORY: 55 years-old Male eval for CHF acute shortness of breath COMPARISON: Chest radiograph 02/29/2020 TECHNIQUE: PA and lateral views of the chest FINDINGS: Cardiac mediastinal and hilar silhouettes are within normal limits. No pneumothorax, pleural effusion or overt pulmonary edema. Mild chronic interstitial coarsening. Degenerative changes of the shoulders and spine. IMPRESSION: No acute process. ACT 112: Negative or not required by law. The above report was generated using voice recognition software. It may contain grammatical, syntax or spelling errors. Electronically signed by: Suhas Ramos M.D. 07/24/2020 4:04 PM Code Status & VTE Plan VTE Prophylaxis Plan VTE Prophylaxis will be ordered: Yes Supervising Physician Co-Signing Physician Notes Care coordinated with Josselyn Perales PA-C. Agree with above note. Patient seen and examined. Please refer to her notes for full details. Vital signs reviewed. Physical exam: General exam: Alert and oriented. Not in acute distress. CVS: S1 and S2 heard, regular rate and rhythm, no murmurs. RS: Clear to auscultation,m/l bilateral rhonchi ABD: Soft, bowel sounds present, nontender, no distention. RECORD PRESS SUPERVISOR: Nonfocal. EXT: No edema, no erythema. Labs: Reviewed. Assessment and plan: 55M with hx of alcoholism, tobaco abuse, hx of copd, Dm,HTN who drinks half gallon of vodka daily planned for alcohol rehab but rehab wanted him to be detoxed before admitting as the patient has hx of alcohol withdrawal seizures. Sugars are running high.received ativan and somewhat drowsy and requiring oxygen. On exam urrently mild rhonchi. Denies any chest pain. Has smokers cough. Afebrile. No nausea. No abdominal pain Alcoholism withdrawal protocol with gabapetin and ativan close monitor Hyperglycemia hx of DM gave a dose of iv insulin placed on lantus and ISS will monitor. hypoxia hx of copd smoking cxr unremarkable for any infiltrates placed on nebs atc and oxygen if not getting better can start ion steroids Other diagnosis and plan of care as per Josselyn Perales PA-C. Jonathan clayton MD.
[2020-07-24] MEDS ORDERED: NITROGLYCERIN SL 0.4 MG/TAB TAB SL PRN (18:10)
[2020-07-24] MEDS ORDERED: GLUCOSE 10 TABS/TUBE PO PRN (18:10)
[2020-07-24] MEDS ORDERED: GABAPENTIN 1200MG ALCOHOL WITHDRAWAL LOAD PO STA (18:10)
[2020-07-24] MEDS ORDERED: INSULIN HUMAN NPH SC STA (18:10)
[2020-07-24] MEDS ORDERED: GLUCAGON FOR INJ 1 MG VIAL SQ PRN (18:10)
[2020-07-24] MEDS ORDERED: POLYETHYLENE (MIRALAX) 17 GM PACK PO PRN (18:10)
[2020-07-24] MEDS ORDERED: DEXTROSE 50% 50 ML SYRINGE IV PRN (18:10)
[2020-07-24] MEDS ORDERED: CARBOHYDRATES FOR HYPOGLYCEMIA PO PRN (18:10)
[2020-07-24] MEDS ORDERED: GLUCOSE 40% GEL 15 GM TUBE PO PRN (18:10)
[2020-07-24] MEDS ORDERED: SODIUM CHLORIDE 0.9% 1000ML 1,000 ML IV SCH (18:30)
[2020-07-24] MEDS ORDERED: GABAPENTIN 600 MG TAB PO ONE (18:30)
[2020-07-24] MEDS ORDERED: INSULIN HUMAN REGULAR PER IV ONE (18:45)
[2020-07-24] MEDS: ALBUTEROL 0.083% NEBU SOLN 3 ML VIAL NEB SCH (19:01)
[2020-07-24] MEDS: FOLIC ACID 1 MG TAB PO SCH (19:45)
[2020-07-24] MEDS: NICOTINE 21 MG/24 HR TDSY TD SCH (19:45)
[2020-07-24] MEDS: THIAMINE HCL 100 MG TAB PO SCH (19:45)
[2020-07-24] MEDS ORDERED: INSULIN HUMAN REGULAR PER UNIT 6 UNITS in SYRINGE 5.94 ML IV STA (20:31)
[2020-07-24] MEDS: CLOTRIMAZOLE 1% CR 15 GM TUBE TOP SCH (21:25)
[2020-07-24] MEDS: BUPRENORPHINE/NALOXONE 8/2 MG TAB SL SCH (21:25)
[2020-07-24] MEDS: INSULIN GLARGINE SOLOSTAR 100 UNITS/ML 3 ML PEN SC SCH (21:25)
[2020-07-24] MEDS: INSULIN ASPART 100 UNITS/ML 3 ML PEN SC SCH (21:26)
--- NOTE | 2020-07-24 22:20 | Hospitalist Progress Note ---
Date of Service July 24, 2020 Assessment & Plan Admission and Anticipated Discharge Date Admission Date: July 24, 2020 Subjective hx of ischemic cardiomyopathy. Ef 49% on echo 03/2019 ef 60-65% on echo 01/06 Results & Data Results & Data ([facility]) Vital Signs (Past 12 Hours) Vital Signs Temp Pulse Pulse Resp BP BP BP 07/24/20 19:36 36.5 C 97 H 16 154/84 H 07/24/20 19:03 91 H 16 07/24/20 18:17 90 07/24/20 18:14 36.8 C 90 18 159/89 H 07/24/20 18:11 36.8 C 90 18 159/89 H 07/24/20 18:10 07/24/20 17:40 140/83 07/24/20 17:37 91 H 20 07/24/20 15:24 94 H 94 H 20 113/68 07/24/20 13:29 36.8 C 115 H 20 159/88 H Pulse Ox 07/24/20 19:36 85 L 07/24/20 19:03 93 07/24/20 18:17 07/24/20 18:14 94 07/24/20 18:11 94 07/24/20 18:10 94 07/24/20 17:40 07/24/20 17:37 98 07/24/20 15:24 98 07/24/20 13:29 93
[2020-07-25] MEDS: GABAPENTIN 600 MG TAB PO SCH ×4 (00:12→19:59)
[2020-07-25] MEDS: LORazepam 1 MG/2 ML VIAL IV PRN ×3 (01:06→16:45)
[2020-07-25] MEDS: ALBUTEROL 0.083% NEBU SOLN 3 ML VIAL NEB SCH ×2 (01:16→07:14)
[2020-07-25 07:04] LABS: Hematocrit (blood only) 35.5 % (42-52); Hemoglobin 11.9 g/dL (14.0-18.0); Mean Corpuscular Hemoglobin 31.6 pg (25-34); Mean Corpuscular Hgb Conc 33.5 g/dL (32-36); Mean Corpuscular Volume 94.4 fL (80-100); RDW Standard Deviation 40.9 fL (36.4-46.3); Red Blood Count 3.76 M/uL (4.7-6.1); White Blood Count 3.79 K/uL (4.8-10.8)
[2020-07-25 07:22] LABS: Mean Platelet Volume 10.7 fL (7.4-10.4); Platelet Count 97 K/uL (130-400); Platelet Estimate Decreased (Normal)
[2020-07-25] MEDS: INSULIN ASPART 100 UNITS/ML 3 ML PEN SC SCH ×4 (08:21→21:34)
[2020-07-25] MEDS: ATORVASTATIN 40 MG TAB PO SCH (08:23)
[2020-07-25] MEDS: CYANOCOBALAMIN 500 MCG TABLET (VITAMIN B-12) PO SCH (08:24)
[2020-07-25] MEDS: ASPIRIN 81 MG ECTAB PO SCH (08:25)
[2020-07-25] MEDS: lisinopril 40 MG TAB PO SCH (08:26)
[2020-07-25] MEDS: VENLAFAXINE HCL XR 150 MG CAPXR PO SCH (08:26)
[2020-07-25] MEDS: MAGNESIUM OXIDE 400 MG TAB PO SCH (08:26)
[2020-07-25] MEDS: METOPROLOL SUCC 50MG EXT REL TAB PO SCH (08:27)
[2020-07-25] MEDS: THIAMINE HCL 100 MG TAB PO SCH (08:27)
[2020-07-25] MEDS: FOLIC ACID 1 MG TAB PO SCH (08:27)
[2020-07-25] MEDS: MULTIVITAMIN TAB PO SCH (08:27)
[2020-07-25] MEDS: CLOTRIMAZOLE 1% CR 15 GM TUBE TOP SCH ×2 (08:28→19:59)
[2020-07-25] MEDS: NICOTINE 21 MG/24 HR TDSY TD SCH (08:31)
[2020-07-25] MEDS: INSULIN GLARGINE SOLOSTAR 100 UNITS/ML 3 ML PEN SC SCH (08:46)
[2020-07-25 08:57] LABS: BUN Creatinine Ratio 17.9 (10-20); Creatinine Clr Calc Pharmacy 91.9 ml/min; Est GFR (African American) 78.7; Est GFR (Non-African American) 67.9; Magnesium 1.3 mg/dl (1.8-2.4); Phosphorus 3.1 mg/dl (2.5-4.9); Potassium 4.7 mmol/L (3.5-5.1)
[2020-07-25] MEDS: BUPRENORPHINE/NALOXONE 8/2 MG TAB SL SCH ×2 (09:00→19:59)
[2020-07-25] MEDS ORDERED: PHARMACY GLYCEMIC MGMT CONSULT PRN (09:31)
[2020-07-25] MEDS ORDERED: ALBUTEROL 0.083% NEBU SOLN 3 ML VIAL NEB PRN (09:49)
[2020-07-25] MEDS ORDERED: INSULIN GLARGINE SOLOSTAR 100 UNITS/ML 3 ML PEN SC STA (10:15)
--- NOTE | 2020-07-25 10:26 | Pharmacy Report ---
Pharmacy Glycemic Short Note 2 - Date of Service July 25, 2020 - Glycemic Short BSG Results (Last 24 hours): 07/24/20 07/24/20 07/24/20 15:13 17:35 18:39 Glucose 319 H* POC Glucose 383 H* 395 H* 07/24/20 07/24/20 07/24/20 20:16 20:17 21:08 Glucose POC Glucose 352 H* 356 H* 301 H* 07/24/20 07/25/20 07/25/20 21:09 06:15 07:36 Glucose 314 H* POC Glucose 309 H* 281 H OUTPATIENT ANTIDIABETIC REGIMEN: * Levemir 30 units SC HS * Novolog SSI * Ozempic 0.5 mg SC weekly * HbA1c = 11.5% (07/15/20) ASSESSMENT: * 55 yo M admitted last evening to get medical clearance to go to rehab. Pharmacy was consulted this morning to assist with inpatient glycemic management. * BSGs have been significantly elevated since admission: [phone] mg/dL (last night) * Patient received a 9 unit IV bolus + 20 units of Lantus + 8 units of Novolog for hyperglycemia last evening * Fasting BSG is elevated at 281 mg/dL this AM * Already received 20 units of Lantus this AM. Will add another 10 units to match home dose of 30 units total today. * Since patient was started on Lantus and charged for a pen, will not transition back to Levemir at this time * Compliance issues as outpatient so expecting patient to be basal deficient which is likely the cause of hyperglycemia. * Tightened Novolog to match a weight and stress of 3 (Actual BW) for this patient. Tightened goal range as well. PLAN FOR INPATIENT GLYCEMIC CONTROL: * Basal insulin * Lantus 20 + 10 units SC this AM * Bolus insulin * NovoLog per scale ACHS or Q6hrs while NPO * Goal Range: Low 110 mg/dL - High 140 mg/dL * Correction Factor: 15 mg/dL/unit * Nutritional / Prandial insulin per carb ratio of 1 unit per 4 grams CHO consumed PLAN FOR DISCHARGE: * HbA1c = 11.5% which is well above goal range for this patient. Compliance issues at home. Insulin was just increased recently per [employer] records and past HbA1c's have been much better when patient is compliant with medications at home. * No changes recommended to outpatient insulin regimen. Will likely continue basal-bolus regimen at rehab facility.
[2020-07-25] MEDS: MAGNESIUM SULFATE / D5W 1 GM/100 ML BAG IV SCH ×3 (11:54→16:05)
[2020-07-25] MEDS: cloNIDine HCL 0.1 MG TAB PO PRN ×2 (12:17→19:59)
--- NOTE | 2020-07-25 16:13 | Hospitalist Progress Note ---
Date of Service July 25, 2020 Assessment & Plan (1) Alcohol abuse: Patient is a 55 yr male with H/O uncontrolled DM II, HTN, HLD, alcohol abuse, CAD s/p stent, chronic back pain, untreated CATALINO, tobacco abuse, neuropathy, CKD III presented to ER for medical clearance to go to alcohol rehab. Alcoholism Alcohol withdrawal Patient needs to be detoxed prior to going to [facility] ETOH level: 193 Continue gabapentin, thiamine, folic acid Ativan as needed Case management to help with discharge planning Hypomagnesemia Replace electrolytes as needed Monitor (2) CKD (chronic kidney disease), stage III: Cr: 1.19 Received IV fluids Monitor renal function Avoid nephrotoxic agents as able (3) CAD (coronary artery disease): S/p stent H/O cardiomyopathy History negative stress test in 01/2020. Echo in 12/2019 EF 60-65% -Continue aspirin, Plavix, metoprolol, statin (4) HTN (hypertension): Hypertensive urgency Secondary to above Continue lisinopril, metoprolol Clonidine as needed (5) Type 2 diabetes mellitus: HbA1c: 11.5 in 07/15/20 Noncompliance with medications Follows outpatient with [facility] and is planned to be started on Ozempic Continue Insulin therapy Monitor BGs (6) Chronic anemia: Monitor CBC (7) Chronic pain: Continue Suboxone (8) Tobacco use disorder: Smoking cessation encouraged Nicotine patch (9) CATALINO (obstructive sleep apnea): Noncompliance with CPAP Planned for repeat sleep study outpatient (10) Neuropathy: Hold home gabapentin while on gabapentin withdrawal protocol DVT Px Lovenox SQ Code Status Full Code Admission and Anticipated Discharge Date Admission Date: July 24, 2020 Subjective Patient is evaluated at bedside States having generalized pain, weakness Also states having tremor Denies chest pain, shortness of breath, dizziness, nausea, abdominal pain Reports chronic cough which is unchanged Review of Systems Review of Systems: All systems reviewed & are unremarkable except as noted in HPI & below Physical Exam Physical Exam: Physical Exam: Vitals signs as noted above General Appearance:Obese, Moderately built and nourished, no apparent distress Head: normocephalic, Atraumatic Eyes: normal inspection, EOMI Neck: supple, Trachea midline Respiratory/Chest: Coarse breath sounds, No accessory muscle use Cardiovascular: S1, S2, No murmur Abdomen/GI:Soft, Non tender, Bowel sounds present, + abdominal wall hernia Extremities/Musculoskeletal:normal inspection, Trace edema Neurologic/Psych:AAOX3, grossly no focal neurological deficits Skin: normal color, warm, RUE erythematous rash--chronic Results & Data Results & Data ([facility]) Vital Signs (Past 12 Hours) Vital Signs Temp Pulse Pulse Resp BP Pulse Ox 07/25/20 15:29 36.7 C 95 H 20 196/92 H 91 07/25/20 12:44 37.3 C 99 H 20 174/102 H 93 07/25/20 09:52 102 H 07/25/20 07:16 98 H 16 97 Laboratory Results Short CBC 07/25/20 Range/Units 06:15 WBC 3.79 L (4.8-10.8) K/uL Hgb 11.9 L (14.0-18.0) g/dL Hct 35.5 L (42-52) % Plt Count 97 L (130-400) K/uL BMP 07/25/20 06:15 Sodium 138 Potassium 4.7 Chloride 103 Carbon Dioxide 31 BUN 21 H Creatinine 1.19 Glucose 314 H* Calcium 8.0 L
[2020-07-25] MEDS ORDERED: LORazepam 2 MG/4 ML VIAL IV PRN (19:42)
[2020-07-25] MEDS ORDERED: ATIVAN IV ALCOHOL WITHDRAWL IV PRN (19:42)
[2020-07-25] MEDS: LORazepam 3 MG/6 ML VIAL IV PRN (20:00)
[2020-07-26] MEDS: cloNIDine HCL 0.1 MG TAB PO PRN ×2 (03:51→19:32)
[2020-07-26] MEDS: GABAPENTIN 600 MG TAB PO SCH ×2 (05:23→18:08)
[2020-07-26] MEDS: INSULIN ASPART 100 UNITS/ML 3 ML PEN SC SCH ×4 (07:58→20:20)
[2020-07-26] MEDS: ASPIRIN 81 MG ECTAB PO SCH (07:59)
[2020-07-26] MEDS: MULTIVITAMIN TAB PO SCH (07:59)
[2020-07-26] MEDS: CYANOCOBALAMIN 500 MCG TABLET (VITAMIN B-12) PO SCH (07:59)
[2020-07-26] MEDS: VENLAFAXINE HCL XR 150 MG CAPXR PO SCH (08:00)
[2020-07-26] MEDS: MAGNESIUM OXIDE 400 MG TAB PO SCH (08:00)
[2020-07-26] MEDS: ENOXAPARIN INJ 40 MG/0.4 ML SYR SQ SCH (08:00)
[2020-07-26] MEDS: FOLIC ACID 1 MG TAB PO SCH (08:00)
[2020-07-26] MEDS: ATORVASTATIN 40 MG TAB PO SCH (08:00)
[2020-07-26] MEDS: METOPROLOL SUCC 50MG EXT REL TAB PO SCH (08:01)
[2020-07-26] MEDS: THIAMINE HCL 100 MG TAB PO SCH (08:01)
[2020-07-26] MEDS: lisinopril 40 MG TAB PO SCH (08:01)
[2020-07-26] MEDS: FUROSEMIDE 40 MG TAB PO SCH (08:02)
[2020-07-26] MEDS: NICOTINE 21 MG/24 HR TDSY TD SCH (08:02)
[2020-07-26] MEDS: BUPRENORPHINE/NALOXONE 8/2 MG TAB SL SCH ×2 (08:04→19:32)
[2020-07-26] MEDS: CLOTRIMAZOLE 1% CR 15 GM TUBE TOP SCH ×2 (08:04→19:32)
[2020-07-26] MEDS: ACETAMINOPHEN 325 MG TAB PO PRN (08:06)
[2020-07-26 08:13] LABS: Hematocrit (blood only) 40.6 % (42-52); Hemoglobin 13.2 g/dL (14.0-18.0); Mean Corpuscular Hemoglobin 31.8 pg (25-34); Mean Corpuscular Hgb Conc 32.5 g/dL (32-36); Mean Corpuscular Volume 97.8 fL (80-100); Mean Platelet Volume 10.5 fL (7.4-10.4); Platelet Count 121 K/uL (130-400); RDW Coefficient of Variation 11.8 % (11.5-14.5); RDW Standard Deviation 42.3 fL (36.4-46.3); Red Blood Count 4.15 M/uL (4.7-6.1); White Blood Count 5.09 K/uL (4.8-10.8)
[2020-07-26] MEDS: INSULIN GLARGINE SOLOSTAR 100 UNITS/ML 3 ML PEN SC SCH (08:19)
[2020-07-26 09:01] LABS: BUN Creatinine Ratio 20.3 (10-20); Calcium 9.4 mg/dl (8.5-10.1); Creatinine Clr Calc Pharmacy 101.5 ml/min; Est GFR (African American) 89.5; Est GFR (Non-African American) 77.2; Magnesium 1.7 mg/dl (1.8-2.4); Potassium 5.2 mmol/L (3.5-5.1)
[2020-07-26] MEDS ORDERED: MAGNESIUM SULFATE / D5W 1 GM/100 ML BAG IV ONE (09:25)
--- NOTE | 2020-07-26 09:28 | Pharmacy Report ---
Pharmacy Glycemic Short Note 2 - Date of Service July 26, 2020 - Glycemic Short BSG Results (Last 24 hours): 07/25/20 07/25/20 07/25/20 11:54 16:47 20:31 Glucose POC Glucose 188 H 149 H 77 07/26/20 07/26/20 07/26/20 00:15 07:24 07:59 Glucose 185 H POC Glucose 132 H 159 H OUTPATIENT ANTIDIABETIC REGIMEN: * Levemir 30 units SC HS * Novolog SSI * Ozempic 0.5 mg SC weekly * HbA1c = 11.5% (07/15/20) ASSESSMENT: 07/26: * Mr. Dillard received a total of 72 units of insulin yesterday * 30 units basal + 42 units bolus * BSGs were: [phone] mg/dL * Fasting improved this AM to 159 mg/dL * Will decrease basal by ~15% today * Will loosen correction factor and carb ratio with lunch as patient's postprandial BSGs trended downward throughout the day yesterday 07/25: * 55 yo M admitted last evening to get medical clearance to go to rehab. Pharmacy was consulted this morning to assist with inpatient glycemic management. * BSGs have been significantly elevated since admission: [phone] mg/dL (last night) * Patient received a 9 unit IV bolus + 20 units of Lantus + 8 units of Novolog for hyperglycemia last evening * Fasting BSG is elevated at 281 mg/dL this AM * Already received 20 units of Lantus this AM. Will add another 10 units to match home dose of 30 units total today. * Since patient was started on Lantus and charged for a pen, will not transition back to Levemir at this time * Compliance issues as outpatient so expecting patient to be basal deficient which is likely the cause of hyperglycemia. * Tightened Novolog to match a weight and stress of 3 (Actual BW) for this patient. Tightened goal range as well. PLAN FOR INPATIENT GLYCEMIC CONTROL: * Basal insulin - decreased 15% * Lantus 26 units SC AM * Bolus insulin - loosened CF & CR * NovoLog per scale ACHS or Q6hrs while NPO * Goal Range: Low 110 mg/dL - High 140 mg/dL * Correction Factor: 20 mg/dL/unit * Nutritional / Prandial insulin per carb ratio of 1 unit per 6 grams CHO consumed PLAN FOR DISCHARGE: * HbA1c = 11.5% which is well above goal range for this patient. Compliance issues at home. [facility]ulin [facility] just [facility] and past HbA1c's have been much better when patient is compliant with medications at home. * No changes recommended to outpatient insulin regimen. Will likely continue basal-bolus regimen at rehab facility.
[2020-07-26] MEDS: LORazepam 1 MG/2 ML VIAL IV PRN (15:43)
--- NOTE | 2020-07-26 16:49 | Hospitalist Progress Note ---
Date of Service July 26, 2020 Assessment & Plan (1) Alcohol abuse: Patient is a 55 yr male with H/O uncontrolled DM II, HTN, HLD, alcohol abuse, CAD s/p stent, chronic back pain, untreated CATALINO, tobacco abuse, neuropathy, CKD III presented to ER for medical clearance to go to alcohol rehab. Alcoholism Alcohol withdrawal Patient needs to be detoxed prior to going to [facility] ETOH level: 193 Continue gabapentin, thiamine, folic acid Ativan as needed Case management to help with discharge planning Minimize sedative meds to prevent excess sedation' Hyperkalemia Potassium levels 5.2 Resume home Lasix Monitor Hypomagnesemia Replace electrolytes as needed Monitor (2) CKD (chronic kidney disease), stage III: Cr: 1.19 Received IV fluids Monitor renal function Avoid nephrotoxic agents as able (3) CAD (coronary artery disease): S/p stent H/O cardiomyopathy History negative stress test in 01/2020. Echo in 12/2019 EF 60-65% -Continue aspirin, Plavix, metoprolol, statin (4) HTN (hypertension): Hypertensive urgency Secondary to above Continue lisinopril, metoprolol Clonidine as needed (5) Type 2 diabetes mellitus: HbA1c: 11.5 in 07/15/20 Noncompliance with medications Follows outpatient with [facility] clinic and is planned to be started on Ozempic Continue Insulin therapy Monitor BGs (6) Chronic anemia: Monitor CBC (7) Chronic pain: Continue Suboxone (8) Tobacco use disorder: Smoking cessation encouraged Nicotine patch (9) CATALINO (obstructive sleep apnea): Noncompliance with CPAP Planned for repeat sleep study outpatient (10) Neuropathy: Hold home gabapentin while on gabapentin withdrawal protocol DVT Px Lovenox SQ Code Status Full Code Admission and Anticipated Discharge Date Admission Date: July 24, 2020 Subjective Patient is evaluated at bedside Drowsy this morning States having headache this morning which resolved with Tylenol Less tremor today Denies chest pain, shortness of breath, dizziness, nausea, abdominal pain Review of Systems Review of Systems: All systems reviewed & are unremarkable except as noted in HPI & below Physical Exam Physical Exam: Physical Exam: Vitals signs as noted above General Appearance:Obese, Moderately built and nourished, no apparent distress Head: normocephalic, Atraumatic Eyes: normal inspection, EOMI Neck: supple, Trachea midline Respiratory/Chest: Normal breath sounds, No accessory muscle use Cardiovascular: S1, S2, No murmur Abdomen/GI:Soft, Non tender, Bowel sounds present, + abdominal wall hernia Extremities/Musculoskeletal:normal inspection, Trace edema Neurologic/Psych:AAOX3, grossly no focal neurological deficits Skin: normal color, warm, RUE erythematous rash--chronic Results & Data Results & Data ([facility]) Vital Signs (Past 12 Hours) Vital Signs Temp Pulse Pulse Resp BP Pulse Ox 07/26/20 08:00 82 07/26/20 07:25 36.9 C 82 22 174/105 H 95 Laboratory Results Short CBC 07/26/20 Range/Units 07:59 WBC 5.09 (4.8-10.8) K/uL Hgb 13.2 L (14.0-18.0) g/dL Hct 40.6 L (42-52) % Plt Count 121 L (130-400) K/uL BMP 07/26/20 07:59 Sodium 139 Potassium 5.2 H Chloride 102 Carbon Dioxide 33 H BUN 22 H Creatinine 1.07 Glucose 185 H Calcium 9.4 D
[2020-07-26] MEDS: LORazepam 3 MG/6 ML VIAL IV PRN (23:41)
[2020-07-27] MEDS: GABAPENTIN 600 MG TAB PO SCH (05:16)
[2020-07-27 06:45] LABS: Hematocrit (blood only) 39.8 % (42-52); Hemoglobin 12.9 g/dL (14.0-18.0); Mean Corpuscular Hemoglobin 31.5 pg (25-34); Mean Corpuscular Hgb Conc 32.4 g/dL (32-36); Mean Corpuscular Volume 97.3 fL (80-100); Mean Platelet Volume 10.5 fL (7.4-10.4); Platelet Count 142 K/uL (130-400); RDW Coefficient of Variation 11.9 % (11.5-14.5); RDW Standard Deviation 42.4 fL (36.4-46.3); Red Blood Count 4.09 M/uL (4.7-6.1); White Blood Count 5.26 K/uL (4.8-10.8)
[2020-07-27 07:13] LABS: BUN Creatinine Ratio 23.3 (10-20); Calcium 9.5 mg/dl (8.5-10.1); Creatinine Clr Calc Pharmacy 99.4 ml/min; Est GFR (African American) 86.5; Est GFR (Non-African American) 74.6; Magnesium 1.7 mg/dl (1.8-2.4); Potassium 4.7 mmol/L (3.5-5.1)
[2020-07-27] MEDS: FOLIC ACID 1 MG TAB PO SCH (08:25)
[2020-07-27] MEDS: MULTIVITAMIN TAB PO SCH (08:25)
[2020-07-27] MEDS: lisinopril 40 MG TAB PO SCH (08:25)
[2020-07-27] MEDS: ATORVASTATIN 40 MG TAB PO SCH (08:25)
[2020-07-27] MEDS: THIAMINE HCL 100 MG TAB PO SCH (08:25)
[2020-07-27] MEDS: METOPROLOL SUCC 50MG EXT REL TAB PO SCH (08:25)
[2020-07-27] MEDS: MAGNESIUM OXIDE 400 MG TAB PO SCH ×2 (08:25→21:50)
[2020-07-27] MEDS: ASPIRIN 81 MG ECTAB PO SCH (08:25)
[2020-07-27] MEDS: FUROSEMIDE 40 MG TAB PO SCH (08:25)
[2020-07-27] MEDS: VENLAFAXINE HCL XR 150 MG CAPXR PO SCH (08:25)
[2020-07-27] MEDS: CYANOCOBALAMIN 500 MCG TABLET (VITAMIN B-12) PO SCH (08:25)
[2020-07-27] MEDS: BUPRENORPHINE/NALOXONE 8/2 MG TAB SL SCH ×2 (08:29→21:49)
[2020-07-27] MEDS: INSULIN ASPART 100 UNITS/ML 3 ML PEN SC SCH ×4 (08:30→22:13)
[2020-07-27] MEDS: ENOXAPARIN INJ 40 MG/0.4 ML SYR SQ SCH (08:33)
[2020-07-27] MEDS: CLOTRIMAZOLE 1% CR 15 GM TUBE TOP SCH ×2 (08:33→21:49)
[2020-07-27] MEDS: INSULIN GLARGINE SOLOSTAR 100 UNITS/ML 3 ML PEN SC SCH (08:34)
[2020-07-27] MEDS: NICOTINE 21 MG/24 HR TDSY TD SCH (08:35)
[2020-07-27] MEDS: ACETAMINOPHEN 325 MG TAB PO PRN (14:43)
--- NOTE | 2020-07-27 16:12 | Hospitalist Progress Note ---
Date of Service July 27, 2020 Assessment & Plan (1) Alcohol abuse: Patient is a 55 yr male with H/O uncontrolled DM II, HTN, HLD, alcohol abuse, CAD s/p stent, chronic back pain, untreated CATALINO, tobacco abuse, neuropathy, CKD III presented to ER for medical clearance to go to alcohol rehab. Alcoholism Alcohol withdrawal Patient needs to be detoxed prior to going to [facility] ETOH level: 193 Completed gabapentin course Continue thiamine, folic acid Ativan as needed Case management to help with discharge planning Minimize sedative meds to prevent excess sedation' Continue current management Hyperkalemia Potassium levels 5.2>4.7 Monitor Hypomagnesemia Replace electrolytes as needed Monitor (2) CKD (chronic kidney disease), stage III: Cr: 1.19 Received IV fluids Monitor renal function Avoid nephrotoxic agents as able (3) CAD (coronary artery disease): S/p stent H/O cardiomyopathy History negative stress test in 01/2020. Echo in 12/2019 EF 60-65% -Continue aspirin, Plavix, metoprolol, statin (4) HTN (hypertension): Hypertensive urgency Secondary to above Continue lisinopril, metoprolol Clonidine as needed (5) Type 2 diabetes mellitus: HbA1c: 11.5 in 07/15/20 Noncompliance with medications Follows outpatient with [facility] and is planned to be started on Ozempic Continue Insulin therapy Monitor BGs (6) Chronic anemia: Monitor CBC (7) Chronic pain: Continue Suboxone (8) Tobacco use disorder: Smoking cessation encouraged Nicotine patch (9) CATALINO (obstructive sleep apnea): Noncompliance with CPAP Planned for repeat sleep study outpatient (10) Neuropathy: Continue gabapentin DVT Px Lovenox SQ Code Status Full Code Admission and Anticipated Discharge Date Admission Date: July 24, 2020 Subjective Patient is evaluated at bedside Offers no complaints this morning States that he sleeps during daytime and is awake all night usually Tremor much improved Denies chest pain, shortness of breath, dizziness, nausea, abdominal pain Review of Systems Review of Systems: All systems reviewed & are unremarkable except as noted in HPI & below Physical Exam Physical Exam: Physical Exam: Vitals signs as noted above General Appearance:Obese, Moderately built and nourished, no apparent distress Head: normocephalic, Atraumatic Eyes: normal inspection, EOMI Neck: supple, Trachea midline Respiratory/Chest: Normal breath sounds, No accessory muscle use Cardiovascular: S1, S2, No murmur Abdomen/GI:Soft, Non tender, Bowel sounds present, + abdominal wall hernia Extremities/Musculoskeletal:normal inspection, Trace edema Neurologic/Psych:AAOX3, grossly no focal neurological deficits Skin: normal color, warm, RUE erythematous rash--chronic Results & Data Results & Data ([facility]) Vital Signs (Past 12 Hours) Vital Signs Temp Pulse Pulse Resp BP Pulse Ox 07/27/20 16:02 36.8 C 82 20 159/82 H 91 07/27/20 11:00 36.8 C 92 H 18 122/77 97 07/27/20 09:40 83 07/27/20 07:30 36.8 C 102 H 18 137/78 97 Laboratory Results Short CBC 07/27/20 Range/Units 06:20 WBC 5.26 (4.8-10.8) K/uL Hgb 12.9 L (14.0-18.0) g/dL Hct 39.8 L (42-52) % Plt Count 142 (130-400) K/uL BMP 07/27/20 06:20 Sodium 137 Potassium 4.7 Chloride 101 Carbon Dioxide 31 BUN 26 H Creatinine 1.10 Glucose 141 H Calcium 9.5
[2020-07-27] MEDS: GABAPENTIN 300 MG CAP PO SCH ×2 (17:20→21:49)
[2020-07-28] MEDS ORDERED: GABAPENTIN 600 MG TAB PO SCH (06:00)
[2020-07-28 06:45] LABS: Mean Corpuscular Hgb Conc 33.3 g/dL (32-36); Mean Corpuscular Volume 96.1 fL (80-100); Mean Platelet Volume 10.4 fL (7.4-10.4); Platelet Count 158 K/uL (130-400); RDW Standard Deviation 41.8 fL (36.4-46.3); Red Blood Count 4.06 M/uL (4.7-6.1); White Blood Count 4.67 K/uL (4.8-10.8)
[2020-07-28 07:25] LABS: Creatinine Clr Calc Pharmacy 85.8 ml/min; Est GFR (African American) 72.7; Est GFR (Non-African American) 62.7; Magnesium 1.8 mg/dl (1.8-2.4); Potassium 5.1 mmol/L (3.5-5.1)
[2020-07-28] MEDS: INSULIN ASPART 100 UNITS/ML 3 ML PEN SC SCH ×5 (08:18→22:16)
[2020-07-28] MEDS: MAGNESIUM OXIDE 400 MG TAB PO SCH ×2 (08:19→20:29)
[2020-07-28] MEDS: METOPROLOL SUCC 50MG EXT REL TAB PO SCH (08:20)
[2020-07-28] MEDS: CYANOCOBALAMIN 500 MCG TABLET (VITAMIN B-12) PO SCH (08:20)
[2020-07-28] MEDS: lisinopril 40 MG TAB PO SCH (08:21)
[2020-07-28] MEDS: VENLAFAXINE HCL XR 150 MG CAPXR PO SCH (08:21)
[2020-07-28] MEDS: ASPIRIN 81 MG ECTAB PO SCH (08:21)
[2020-07-28] MEDS: GABAPENTIN 300 MG CAP PO SCH (08:22)
[2020-07-28] MEDS: THIAMINE HCL 100 MG TAB PO SCH (08:22)
[2020-07-28] MEDS: MULTIVITAMIN TAB PO SCH (08:22)
[2020-07-28] MEDS: ATORVASTATIN 40 MG TAB PO SCH (08:23)
[2020-07-28] MEDS: FOLIC ACID 1 MG TAB PO SCH (08:23)
[2020-07-28] MEDS: FUROSEMIDE 40 MG TAB PO SCH (08:23)
[2020-07-28] MEDS: ENOXAPARIN INJ 40 MG/0.4 ML SYR SQ SCH (08:24)
[2020-07-28] MEDS: NICOTINE 21 MG/24 HR TDSY TD SCH (08:25)
[2020-07-28] MEDS: INSULIN GLARGINE SOLOSTAR 100 UNITS/ML 3 ML PEN SC SCH (08:26)
[2020-07-28] MEDS: CLOTRIMAZOLE 1% CR 15 GM TUBE TOP SCH ×2 (08:26→20:31)
[2020-07-28] MEDS: BUPRENORPHINE/NALOXONE 8/2 MG TAB SL SCH ×2 (08:30→20:34)
--- NOTE | 2020-07-28 14:15 | Hospitalist Progress Note ---
Date of Service July 28, 2020 Assessment & Plan (1) Alcohol abuse: Patient is a 55 yr male with H/O uncontrolled DM II, HTN, HLD, alcohol abuse, CAD s/p stent, chronic back pain, untreated CATALINO, tobacco abuse, neuropathy, CKD III presented to ER for medical clearance to go to alcohol rehab. Alcoholism Alcohol withdrawal ETOH level: 193 Completed gabapentin course Continue thiamine, folic acid Ativan as needed Case management to help with discharge planning Minimize sedative meds to prevent excess sedation Needs Rehab placement Pancytopenia Secondary to above Resolved Hyperkalemia Potassium levels 5.2>4.7>5.1 Monitor Hypomagnesemia Replace electrolytes as needed Monitor (2) CKD (chronic kidney disease), stage III: Cr: 1.19 Received IV fluids Monitor renal function Avoid nephrotoxic agents as able (3) CAD (coronary artery disease): S/p stent H/O cardiomyopathy History negative stress test in 01/2020. Echo in 12/2019 EF 60-65% -Continue aspirin, Plavix, metoprolol, statin (4) HTN (hypertension): Hypertensive urgency Secondary to above Continue lisinopril, metoprolol Clonidine as needed Started on Amlodipine for better control of BP (5) Type 2 diabetes mellitus: HbA1c: 11.5 in 07/15/20 Noncompliance with medications Follows outpatient with [facility] and is planned to be started on Ozempic Continue Insulin therapy Monitor BGs (6) Chronic anemia: Monitor CBC (7) Chronic pain: Continue Suboxone (8) Tobacco use disorder: Smoking cessation encouraged Nicotine patch (9) CATALINO (obstructive sleep apnea): Noncompliance with CPAP Planned for repeat sleep study outpatient (10) Neuropathy: Continue gabapentin DVT Px Lovenox SQ Code Status Full Code Disposition: Rehab when accepted Admission and Anticipated Discharge Date Admission Date: July 24, 2020 Subjective Patient is seen and examined at bedside " I feel Lousy" States having generalized weakness and tiredness No new complaints Waiting for rehab placement Denies chest pain, shortness of breath, dizziness, nausea, abdominal pain Review of Systems Review of Systems: All systems reviewed & are unremarkable except as noted in HPI & below Physical Exam Physical Exam: Physical Exam: Vitals signs as noted above General Appearance:Obese, Moderately built and nourished, no apparent distress Head: normocephalic, Atraumatic Eyes: normal inspection, EOMI Neck: supple, Trachea midline Respiratory/Chest: Normal breath sounds, No accessory muscle use Cardiovascular: S1, S2, No murmur Abdomen/GI:Soft, Non tender, Bowel sounds present, + abdominal wall hernia Extremities/Musculoskeletal:normal inspection, Trace edema Neurologic/Psych:AAOX3, grossly no focal neurological deficits Skin: normal color, warm, RUE erythematous rash--chronic Results & Data Results & Data ([facility]) Vital Signs (Past 12 Hours) Vital Signs Temp Pulse Pulse Resp BP Pulse Ox 07/28/20 11:39 36.9 C 94 H 18 160/112 H 94 07/28/20 09:40 84 07/28/20 08:50 36.8 C 76 20 168/88 H 92 Laboratory Results Short CBC 07/28/20 Range/Units 06:24 WBC 4.67 L (4.8-10.8) K/uL Hgb 13.0 L (14.0-18.0) g/dL Hct 39.0 L (42-52) % Plt Count 158 (130-400) K/uL BMP 07/28/20 06:24 Sodium 137 Potassium 5.1 Chloride 101 Carbon Dioxide 32 BUN 30 H Creatinine 1.27 Glucose 176 H Calcium 9.0
[2020-07-28] MEDS: LORazepam 1 MG/2 ML VIAL IV PRN ×2 (15:17→22:11)
[2020-07-28] MEDS: amLODIPine BESYLATE 5 MG TAB PO SCH (16:08)
[2020-07-28] MEDS: ACETAMINOPHEN 325 MG TAB PO PRN (19:25)
[2020-07-28] MEDS: GABAPENTIN 600 MG TAB PO SCH (20:32)
[2020-07-29] MEDS: INSULIN ASPART 100 UNITS/ML 3 ML PEN SC SCH ×5 (03:48→20:47)
[2020-07-29 06:16] LABS: Hematocrit (blood only) 40.2 % (42-52); Hemoglobin 13.5 g/dL (14.0-18.0); Mean Corpuscular Hemoglobin 31.5 pg (25-34); Mean Corpuscular Hgb Conc 33.6 g/dL (32-36); Mean Corpuscular Volume 93.9 fL (80-100); Mean Platelet Volume 10.2 fL (7.4-10.4); Platelet Count 169 K/uL (130-400); RDW Coefficient of Variation 12.1 % (11.5-14.5); RDW Standard Deviation 40.5 fL (36.4-46.3); Red Blood Count 4.28 M/uL (4.7-6.1); White Blood Count 4.04 K/uL (4.8-10.8)
[2020-07-29 06:55] LABS: BUN Creatinine Ratio 27.3 (10-20); Calcium 8.9 mg/dl (8.5-10.1); Creatinine Clr Calc Pharmacy 80.2 ml/min; Est GFR (African American) 68.2; Est GFR (Non-African American) 58.8; Magnesium 1.8 mg/dl (1.8-2.4); Potassium 4.4 mmol/L (3.5-5.1)
[2020-07-29] MEDS: BUPRENORPHINE/NALOXONE 8/2 MG TAB SL SCH ×2 (08:15→20:51)
[2020-07-29] MEDS: lisinopril 40 MG TAB PO SCH (08:15)
[2020-07-29] MEDS: GABAPENTIN 600 MG TAB PO SCH ×2 (08:15→20:45)
[2020-07-29] MEDS: VENLAFAXINE HCL XR 150 MG CAPXR PO SCH (08:16)
[2020-07-29] MEDS: CYANOCOBALAMIN 500 MCG TABLET (VITAMIN B-12) PO SCH (08:16)
[2020-07-29] MEDS: MULTIVITAMIN TAB PO SCH (08:16)
[2020-07-29] MEDS: METOPROLOL SUCC 50MG EXT REL TAB PO SCH (08:16)
[2020-07-29] MEDS: FUROSEMIDE 40 MG TAB PO SCH (08:17)
[2020-07-29] MEDS: ASPIRIN 81 MG ECTAB PO SCH (08:17)
[2020-07-29] MEDS: MAGNESIUM OXIDE 400 MG TAB PO SCH ×2 (08:17→20:46)
[2020-07-29] MEDS: FOLIC ACID 1 MG TAB PO SCH (08:17)
[2020-07-29] MEDS: ATORVASTATIN 40 MG TAB PO SCH (08:18)
[2020-07-29] MEDS: amLODIPine BESYLATE 5 MG TAB PO SCH (08:18)
[2020-07-29] MEDS: THIAMINE HCL 100 MG TAB PO SCH (08:18)
[2020-07-29] MEDS: CLOTRIMAZOLE 1% CR 15 GM TUBE TOP SCH ×2 (08:19→20:47)
[2020-07-29] MEDS: ENOXAPARIN INJ 40 MG/0.4 ML SYR SQ SCH (08:20)
[2020-07-29] MEDS: INSULIN GLARGINE SOLOSTAR 100 UNITS/ML 3 ML PEN SC SCH (08:21)
[2020-07-29] MEDS: NICOTINE 21 MG/24 HR TDSY TD SCH (09:09)
--- NOTE | 2020-07-29 09:10 | Hospitalist Progress Note ---
Date of Service July 29, 2020 Assessment & Plan (1) Alcohol abuse: Alcoholism Alcohol withdrawal ETOH level on admission 193 Continue thiamine, folic acid Ativan as needed. Got 2 doses yesterday CM working on alcohol rehab placement Needs Rehab placement Pancytopenia Likely due to alcohol abuse Resolved Hyperkalemia Resolved Monitor Hypomagnesemia Repleted Monitor (2) CKD (chronic kidney disease), stage III: Cr is 1.34 today Monitor renal function Avoid nephrotoxic agents as able (3) CAD (coronary artery disease): S/p stent H/O cardiomyopathy History negative stress test in 01/2020. Echo in 12/2019 EF 60-65% Continue aspirin, Plavix, metoprolol, statin (4) HTN (hypertension): Hypertensive urgency Continue lisinopril, metoprolol Was started on Amlodipine for better control of BP this hospital visit Monitor and optimize BP control (5) Type 2 diabetes mellitus: HbA1c: 11.5 in 07/15/20 Noncompliance with medications Follows outpatient with [facility] and is planned to be started on Ozempic Continue Insulin therapy Monitor BGs (6) Chronic anemia: Monitor CBC (7) Chronic pain: Continue Suboxone (8) Tobacco use disorder: Smoking cessation encouraged. Provided more education Nicotine patch (9) CATALINO (obstructive sleep apnea): Noncompliance with CPAP Planned for repeat sleep study outpatient (10) Neuropathy: Continue gabapentin DVT Px Lovenox SQ Code Status Full Code Disposition: Rehab when accepted Admission and Anticipated Discharge Date Admission Date: July 24, 2020 Subjective 55 yr male with H/O uncontrolled DM II, HTN, HLD, alcohol abuse, CAD s/p stent, chronic back pain, untreated CATALINO, tobacco abuse, neuropathy, CKD III presented to ER for medical clearance to go to alcohol rehab. Currently being managed for alcohol withdrawal. Patient seen and examined this morning. Reports feeling better today. Still reports some weakness. Reported visual hallucinations yesterday, described as seeing cats in the room. Stated he has not had any more since yesterday. Denies any anxiety, auditory or tactile hallucinations at this time Denied diaphoresis Review of Systems Constitutional: no fever, no chills and no sweats Eyes: no problem reported Ear, Nose, Mouth, Throat: no problem reported Respiratory: no cough and no dyspnea Cardiovascular: no chest pain, no dyspnea and no palpitations Gastrointestinal: no abdominal pain, no nausea, no vomiting and no diarrhea/l oose stools Genitourinary: no dysuria, no urinary frequency and no urinary incontinence Musculoskeletal: + back pain Neurologic: + paresthesia (Hands and feet); no dizziness Psychiatric: + visual hallucinations (Yesterday); no anxiety Physical Exam Constitutional: + well hydrated and + obese; no acute distress Eyes: PERRL, conjunctivae normal, anicteric sclerae ENMT: external ear and nose normal, oropharynx normal Respiratory: normal respiratory effort, lungs clear to auscultation Cardiovascular: RRR, no murmur, no edema Gastrointestinal (Abdomen): normal bowel sounds, soft, nontender, no hepatosplenomegaly Musculoskeletal: no cyanosis or clubbing, extremities motor strength 5/5 Neurologic: PERRL, EOMI, accommodation nl, no face palsy, no dysarthria Psychiatric: A+Ox3, euthymic affect Results & Data Results & Data ([facility]) Vital Signs (Past 12 Hours) Vital Signs Temp Pulse Pulse Resp BP BP Pulse Ox 07/29/20 07:30 76 07/29/20 07:18 36.8 C 80 18 123/82 95 07/29/20 04:00 36.7 C 78 18 154/98 H 93 07/28/20 23:00 36.7 C 91 H 18 134/87 93 07/28/20 22:42 82 Laboratory Results Laboratory Results - last 24 hr 07/28/20 07/28/20 07/28/20 11:30 16:21 20:06 WBC RBC Hgb Hct MCV MCH MCHC RDW Std Deviation RDW Coeff of Alberto Plt Count MPV Sodium Potassium Chloride Carbon Dioxide Anion Gap BUN Creatinine Est Cr Clr Drug Dosing Est GFR ( Amer) Est GFR (Non-Af Amer) BUN/Creatinine Ratio Glucose POC Glucose 147 H 115 H 133 H Calcium Magnesium 07/29/20 07/29/20 07/29/20 03:54 05:53 05:53 WBC 4.04 L RBC 4.28 L Hgb 13.5 L Hct 40.2 L MCV 93.9 MCH 31.5 MCHC 33.6 RDW Std Deviation 40.5 RDW Coeff of Alberto 12.1 Plt Count 169 MPV 10.2 Sodium 138 Potassium 4.4 Chloride 103 Carbon Dioxide 30 Anion Gap 5.0 BUN 37 H Creatinine 1.34 Est Cr Clr Drug Dosing 80.2 Est GFR ( Amer) 68.2 Est GFR (Non-Af Amer) 58.8 BUN/Creatinine Ratio 27.3 H Glucose 175 H POC Glucose 189 H Calcium 8.9 Magnesium 1.8 07/29/20 07:31 WBC RBC Hgb Hct MCV MCH MCHC RDW Std Deviation RDW Coeff of Alberto Plt Count MPV Sodium Potassium Chloride Carbon Dioxide Anion Gap BUN Creatinine Est Cr Clr Drug Dosing Est GFR ( Amer) Est GFR (Non-Af Amer) BUN/Creatinine Ratio Glucose POC Glucose 230 H Calcium Magnesium
[2020-07-29] MEDS: ACETAMINOPHEN 325 MG TAB PO PRN (17:23)
[2020-07-30] MEDS ORDERED: ZOLPIDEM TARTRATE 5 MG TAB PO STA (00:40)
[2020-07-30] MEDS ORDERED: cloNIDine HCL 0.1 MG TAB PO ONE (01:00)
[2020-07-30 01:10] LABS: Amphetamines+Metham, Urine Neg (Neg); Barbiturates, Urine Neg (Neg); Benzodiazepine, Urine Neg (Neg); Cocaine, Urine Neg (Neg); MDMA (Ecstacy), Urine Neg (Neg); Methadone, Urine Neg (Neg); Opiate, Urine Neg (Neg); Phencyclidine, Urine Neg (Neg)
[2020-07-30 06:34] LABS: BUN Creatinine Ratio 27.7 (10-20); Creatinine Clr Calc Pharmacy 73.1 ml/min; Est GFR (African American) 61.4 ml/min; Potassium 4.8 mmol/L (3.5-5.1)
[2020-07-30 06:37] LABS: Phosphorus 3.7 mg/dl (2.5-4.9)
--- NOTE | 2020-07-30 07:42 | Pharmacy Report ---
Pharmacy Glycemic Short Note 2 - Date of Service July 30, 2020 - Glycemic Short BSG Results (Last 24 hours): 07/29/20 07/29/20 07/29/20 11:25 15:03 16:47 Glucose POC Glucose 154 H 135 H 164 H 07/29/20 07/30/20 20:28 05:27 Glucose 128 H POC Glucose 205 H OUTPATIENT ANTIDIABETIC REGIMEN: * Levemir 30 units SC HS * Novolog SSI * Ozempic 0.5 mg SC weekly * HbA1c = 11.5% (07/15/20) ASSESSMENT: 07/30: * Patient received total of 82 units of insulin yesterday, of which 30 units were basal * Fasting BSG 128 mg/dL - improved, had increased dose to home dose yesterday - plan to continue same * Continue same CF/CR for now 07/26: * Mr. Dillard received a total of 72 units of insulin yesterday * 30 units basal + 42 units bolus * BSGs were: [phone] mg/dL * Fasting improved this AM to 159 mg/dL * Will decrease basal by ~15% today * Will loosen correction factor and carb ratio with lunch as patient's postprandial BSGs trended downward throughout the day yesterday 07/25: * 55 yo M admitted last evening to get medical clearance to go to rehab. Pharmacy was consulted this morning to assist with inpatient glycemic management. * BSGs have been significantly elevated since admission: [phone] mg/dL (last night) * Patient received a 9 unit IV bolus + 20 units of Lantus + 8 units of Novolog for hyperglycemia last evening * Fasting BSG is elevated at 281 mg/dL this AM * Already received 20 units of Lantus this AM. Will add another 10 units to match home dose of 30 units total today. * Since patient was started on Lantus and charged for a pen, will not transition back to Levemir at this time * Compliance issues as outpatient so expecting patient to be basal deficient which is likely the cause of hyperglycemia. * Tightened Novolog to match a weight and stress of 3 (Actual BW) for this patient. Tightened goal range as well. PLAN FOR INPATIENT GLYCEMIC CONTROL: * Basal insulin * Lantus 30 units Qam * Bolus insulin * NovoLog per scale ACHS or Q6hrs while NPO * Goal Range: Low 110 mg/dL - High 140 mg/dL * Correction Factor: 15 mg/dL/unit * Nutritional / Prandial insulin per carb ratio of 1 unit per 7 grams CHO consumed PLAN FOR DISCHARGE: * HbA1c = 11.5% which is well above goal range for this patient. Compliance issues at home. [facility] and past HbA1c's have been much better when patient is compliant with medications at home. * No changes recommended to outpatient insulin regimen. Will likely continue basal-bolus regimen at rehab facility.
[2020-07-30] MEDS: ATORVASTATIN 40 MG TAB PO SCH (08:50)
[2020-07-30] MEDS: ASPIRIN 81 MG ECTAB PO SCH (08:50)
[2020-07-30] MEDS: amLODIPine BESYLATE 5 MG TAB PO SCH (08:50)
[2020-07-30] MEDS: FOLIC ACID 1 MG TAB PO SCH (08:50)
[2020-07-30] MEDS: VENLAFAXINE HCL XR 150 MG CAPXR PO SCH (08:50)
[2020-07-30] MEDS: CYANOCOBALAMIN 500 MCG TABLET (VITAMIN B-12) PO SCH (08:50)
[2020-07-30] MEDS: MULTIVITAMIN TAB PO SCH (08:50)
[2020-07-30] MEDS: FUROSEMIDE 40 MG TAB PO SCH (08:50)
[2020-07-30] MEDS: ENOXAPARIN INJ 40 MG/0.4 ML SYR SQ SCH (08:51)
[2020-07-30] MEDS: MAGNESIUM OXIDE 400 MG TAB PO SCH ×2 (08:51→20:21)
[2020-07-30] MEDS: GABAPENTIN 600 MG TAB PO SCH ×2 (08:51→20:21)
[2020-07-30] MEDS: METOPROLOL SUCC 50MG EXT REL TAB PO SCH (08:51)
[2020-07-30] MEDS: THIAMINE HCL 100 MG TAB PO SCH (08:52)
[2020-07-30] MEDS: INSULIN ASPART 100 UNITS/ML 3 ML PEN SC SCH ×4 (08:52→20:21)
[2020-07-30] MEDS: NICOTINE 21 MG/24 HR TDSY TD SCH (08:53)
[2020-07-30] MEDS: INSULIN GLARGINE SOLOSTAR 100 UNITS/ML 3 ML PEN SC SCH (08:54)
[2020-07-30] MEDS: BUPRENORPHINE/NALOXONE 8/2 MG TAB SL SCH ×2 (08:57→20:20)
[2020-07-30] MEDS: CLOTRIMAZOLE 1% CR 15 GM TUBE TOP SCH ×2 (08:58→20:21)
--- NOTE | 2020-07-30 09:46 | Hospitalist Progress Note ---
Date of Service July 30, 2020 Assessment & Plan (1) Alcohol abuse: Alcoholism Alcohol withdrawal ETOH level on admission 193 Continue thiamine, folic acid Ativan as needed. Got 2 doses yesterday CM working on alcohol rehab placement Needs Rehab placement Pancytopenia Likely due to alcohol abuse Hyperkalemia Resolved Monitor Hypomagnesemia Repleted Monitor (2) CKD (chronic kidney disease), stage III: Cr is 1.46 today Monitor renal function Avoid nephrotoxic agents as able (3) CAD (coronary artery disease): S/p stent H/O cardiomyopathy History negative stress test in 01/2020. Echo in 12/2019 EF 60-65% Continue aspirin, Plavix, metoprolol, statin (4) HTN (hypertension): Hypertensive urgency Continue lisinopril, metoprolol Was started on Amlodipine for better control of BP this hospital visit Amlodipine increased to 5 mg daily today. (5) Type 2 diabetes mellitus: HbA1c: 11.5 in 07/15/20 Noncompliance with medications Follows outpatient with [facility] and is planned to be started on Ozempic Continue Insulin therapy Monitor BGs (6) Chronic anemia: Monitor CBC (7) Chronic pain: Continue Suboxone (8) Tobacco use disorder: Smoking cessation encouraged. Provided more education Nicotine patch (9) CATALINO (obstructive sleep apnea): Noncompliance with CPAP Planned for repeat sleep study outpatient (10) Neuropathy: Continue gabapentin DVT Px Lovenox SQ Code Status Full Code Disposition: Discussed with caser in. There has been difficulties with getting accepting rehab place for his alcohol rehab. manager interface still working on this Admission and Anticipated Discharge Date Admission Date: July 24, 2020 Subjective Patient seen and examined. Reports feeling better today. Reports feeling frustrated overnight about delays in getting a rehab place for him No more visual hallucinations Denied anxiety, tremors Reports toothache which she reported was chronic and that his dentist told him he needed root canal at some point Denies any other symptoms Physical Exam Constitutional: + well hydrated and + obese; no acute distress Eyes: PERRL, conjunctivae normal, anicteric sclerae ENMT: external ear and nose normal, oropharynx normal Respiratory: normal respiratory effort, lungs clear to auscultation Cardiovascular: RRR, no murmur, no edema Gastrointestinal (Abdomen): normal bowel sounds, soft, nontender, no hepatosplenomegaly Musculoskeletal: no cyanosis or clubbing, extremities motor strength 5/5 Neurologic: PERRL, EOMI, accommodation nl, no face palsy, no dysarthria Psychiatric: A+Ox3, euthymic affect Results & Data Results & Data ([facility]) Vital Signs (Past 12 Hours) Vital Signs Temp Pulse Pulse Resp BP Pulse Ox 07/30/20 08:49 91 H 167/96 H 07/30/20 07:02 36.8 C 75 18 120/72 91 07/30/20 07:00 67 07/30/20 03:00 36.6 C 66 18 133/83 95 07/29/20 23:59 65 07/29/20 23:42 36.6 C 71 16 185/98 H 96 Laboratory Results Laboratory Results - last 24 hr 07/29/20 07/29/20 07/29/20 11:25 15:03 16:47 Sodium Potassium Chloride Carbon Dioxide Anion Gap BUN Creatinine Est Cr Clr Drug Dosing Est GFR ( Amer) Est GFR (Non-Af Amer) BUN/Creatinine Ratio Glucose POC Glucose 154 H 135 H 164 H Calcium Phosphorus Magnesium Urine Opiates Screen Ur Methadone, Qual Urine Barbiturates Ur Phencyclidine (PCP) U Amphetamin/Meth Scrn MDMA (Ecstasy) Screen U Benzodiazepines Scrn Ur Cocaine Metabolite U Marijuana (THC) Screen 07/29/20 07/30/20 07/30/20 20:28 00:46 05:27 Sodium 138 Potassium 4.8 Chloride 106 Carbon Dioxide 28 Anion Gap 4.0 BUN 40 H Creatinine 1.46 H Est Cr Clr Drug Dosing 73.1 Est GFR ( Amer) 61.4 Est GFR (Non-Af Amer) 53.0 BUN/Creatinine Ratio 27.7 H Glucose 128 H POC Glucose 205 H Calcium 9.0 Phosphorus 3.7 Magnesium 2.0 Urine Opiates Screen Neg Ur Methadone, Qual Neg Urine Barbiturates Neg Ur Phencyclidine (PCP) Neg U Amphetamin/Meth Scrn Neg MDMA (Ecstasy) Screen Neg U Benzodiazepines Scrn Neg Ur Cocaine Metabolite Neg U Marijuana (THC) Screen Neg 07/30/20 08:11 Sodium Potassium Chloride Carbon Dioxide Anion Gap BUN Creatinine Est Cr Clr Drug Dosing Est GFR ( Amer) Est GFR (Non-Af Amer) BUN/Creatinine Ratio Glucose POC Glucose 164 H Calcium Phosphorus Magnesium Urine Opiates Screen Ur Methadone, Qual Urine Barbiturates Ur Phencyclidine (PCP) U Amphetamin/Meth Scrn MDMA (Ecstasy) Screen U Benzodiazepines Scrn Ur Cocaine Metabolite U Marijuana (THC) Screen
[2020-07-30] MEDS: lisinopril 40 MG TAB PO SCH (11:32)
[2020-07-30] MEDS: LORazepam 1 MG/2 ML VIAL IV PRN (23:30)
[2020-07-30] MEDS: cloNIDine HCL 0.1 MG TAB PO PRN (23:30)
[2020-07-31] MEDS: ZOLPIDEM TARTRATE 5 MG TAB PO PRN (00:16)
[2020-07-31] MEDS: INSULIN ASPART 100 UNITS/ML 3 ML PEN SC SCH ×4 (08:05→21:06)
[2020-07-31] MEDS: NICOTINE 21 MG/24 HR TDSY TD SCH (08:05)
[2020-07-31] MEDS: INSULIN GLARGINE SOLOSTAR 100 UNITS/ML 3 ML PEN SC SCH (08:06)
[2020-07-31] MEDS: ENOXAPARIN INJ 40 MG/0.4 ML SYR SQ SCH (08:06)
[2020-07-31] MEDS: VENLAFAXINE HCL XR 150 MG CAPXR PO SCH (08:07)
[2020-07-31] MEDS: FUROSEMIDE 40 MG TAB PO SCH (08:07)
[2020-07-31] MEDS: METOPROLOL SUCC 50MG EXT REL TAB PO SCH (08:07)
[2020-07-31] MEDS: ATORVASTATIN 40 MG TAB PO SCH ×2 (08:07→21:03)
[2020-07-31] MEDS: CYANOCOBALAMIN 500 MCG TABLET (VITAMIN B-12) PO SCH (08:07)
[2020-07-31] MEDS: THIAMINE HCL 100 MG TAB PO SCH (08:07)
[2020-07-31] MEDS: FOLIC ACID 1 MG TAB PO SCH (08:07)
[2020-07-31] MEDS: ASPIRIN 81 MG ECTAB PO SCH (08:07)
[2020-07-31] MEDS: lisinopril 40 MG TAB PO SCH (08:07)
[2020-07-31] MEDS: MAGNESIUM OXIDE 400 MG TAB PO SCH ×2 (08:08→21:03)
[2020-07-31] MEDS: CLOTRIMAZOLE 1% CR 15 GM TUBE TOP SCH ×2 (08:08→21:05)
[2020-07-31] MEDS: MULTIVITAMIN TAB PO SCH (08:08)
[2020-07-31] MEDS: amLODIPine BESYLATE 5 MG TAB PO SCH (08:08)
[2020-07-31] MEDS: GABAPENTIN 600 MG TAB PO SCH ×2 (08:08→21:05)
[2020-07-31] MEDS: BUPRENORPHINE/NALOXONE 8/2 MG TAB SL SCH ×2 (08:13→21:03)
--- NOTE | 2020-07-31 09:18 | Hospitalist Progress Note ---
Date of Service July 31, 2020 Assessment & Plan (1) Alcohol abuse: Alcoholism Alcohol withdrawal ETOH level on admission 193 Continue thiamine, folic acid Alcohol withdrawal resolved. We will reduce gabapentin down to home dose on discharge unit [employer] still working on alcohol rehab placement Pancytopenia Likely due to alcohol abuse Hyperkalemia Resolved Hypomagnesemia Repleted (2) CKD (chronic kidney disease), stage III: Last Cr is 1.46 Avoid nephrotoxic agents as able (3) CAD (coronary artery disease): S/p stent H/O cardiomyopathy History negative stress test in 01/2020. Echo in 12/2019 EF 60-65% Continue aspirin, Plavix, metoprolol, statin (4) HTN (hypertension): Hypertensive urgency Continue lisinopril, metoprolol Was started on Amlodipine for better control of BP this hospital visit Continue amlodipine 5 mg daily BP better this morning but did have hypertensive episodes yesterday (5) Type 2 diabetes mellitus: HbA1c: 11.5 in 07/15/20 Noncompliance with medications Follows outpatient with [facility] and is planned to be started on Ozempic Continue Insulin therapy Monitor BGs (6) Chronic anemia: (7) Chronic pain: Continue Suboxone (8) Tobacco use disorder: Smoking cessation encouraged. Provided more education Nicotine patch (9) CATALINO (obstructive sleep apnea): Noncompliance with CPAP Planned for repeat sleep study outpatient (10) Neuropathy: Continue gabapentin DVT Px Lovenox SQ Code Status Full Code Disposition: There has been difficulties and delays with getting accepting rehab place for his alcohol rehab. unit manager [employer] still working on this Admission and Anticipated Discharge Date Admission Date: July 24, 2020 Subjective 55 yr male with H/O uncontrolled DM II, HTN, HLD, alcohol abuse, CAD s/p stent, chronic back pain, untreated CATALINO, tobacco abuse, neuropathy, CKD III presented to ER for medical clearance to go to alcohol rehab. Patient seen and examined this morning. Denies any new complaints. No more visual hallucination for the past 2 days Reports only hand and feet paresthesias, chronic Physical Exam Constitutional: + well hydrated and + obese; no acute distress Eyes: PERRL, conjunctivae normal, anicteric sclerae ENMT: external ear and nose normal, oropharynx normal Respiratory: normal respiratory effort, lungs clear to auscultation Cardiovascular: RRR, no murmur, no edema Gastrointestinal (Abdomen): normal bowel sounds, soft, nontender, no hepatosplenomegaly Musculoskeletal: no cyanosis or clubbing, extremities motor strength 5/5 Neurologic: PERRL, EOMI, accommodation nl, no face palsy, no dysarthria Psychiatric: A+Ox3, euthymic affect Results & Data Results & Data ([facility]) Vital Signs (Past 12 Hours) Vital Signs Temp Pulse Pulse Resp BP Pulse Ox 07/31/20 08:44 66 07/31/20 07:48 36.7 C 60 19 112/74 92 07/31/20 06:00 36.6 C 56 L 20 137/89 94 07/31/20 02:43 36.9 C 64 17 130/85 91 07/31/20 01:35 36.5 C 75 18 108/70 96 07/30/20 23:53 64 07/30/20 23:26 37.4 C 68 18 186/102 H 94 Laboratory Results Laboratory Results - last 24 hr 07/30/20 07/30/20 07/30/20 12:00 16:59 20:06 POC Glucose 222 H 141 H 143 H 07/31/20 07:52 POC Glucose 223 H
[2020-08-01] MEDS: ZOLPIDEM TARTRATE 5 MG TAB PO PRN ×2 (01:46→22:52)
[2020-08-01] MEDS: BUPRENORPHINE/NALOXONE 8/2 MG TAB SL SCH ×2 (08:24→20:36)
[2020-08-01] MEDS: CYANOCOBALAMIN 500 MCG TABLET (VITAMIN B-12) PO SCH (08:24)
[2020-08-01] MEDS: FOLIC ACID 1 MG TAB PO SCH (08:24)
[2020-08-01] MEDS: FUROSEMIDE 40 MG TAB PO SCH (08:24)
[2020-08-01] MEDS: THIAMINE HCL 100 MG TAB PO SCH (08:24)
[2020-08-01] MEDS: MAGNESIUM OXIDE 400 MG TAB PO SCH ×2 (08:24→20:36)
[2020-08-01] MEDS: ENOXAPARIN INJ 40 MG/0.4 ML SYR SQ SCH (08:24)
[2020-08-01] MEDS: MULTIVITAMIN TAB PO SCH (08:24)
[2020-08-01] MEDS: amLODIPine BESYLATE 5 MG TAB PO SCH (08:24)
[2020-08-01] MEDS: lisinopril 40 MG TAB PO SCH (08:24)
[2020-08-01] MEDS: NICOTINE 21 MG/24 HR TDSY TD SCH (08:24)
[2020-08-01] MEDS: ATORVASTATIN 40 MG TAB PO SCH (08:24)
[2020-08-01] MEDS: METOPROLOL SUCC 50MG EXT REL TAB PO SCH (08:24)
[2020-08-01] MEDS: GABAPENTIN 600 MG TAB PO SCH (08:24)
[2020-08-01] MEDS: INSULIN ASPART 100 UNITS/ML 3 ML PEN SC SCH ×4 (08:25→20:38)
[2020-08-01] MEDS: INSULIN GLARGINE SOLOSTAR 100 UNITS/ML 3 ML PEN SC SCH (08:25)
[2020-08-01] MEDS: VENLAFAXINE HCL XR 150 MG CAPXR PO SCH (08:25)
[2020-08-01] MEDS: CLOTRIMAZOLE 1% CR 15 GM TUBE TOP SCH ×2 (08:28→20:39)
[2020-08-01] MEDS ORDERED: INSULIN GLARGINE SOLOSTAR 100 UNITS/ML 3 ML PEN SC SCH (09:00)
--- NOTE | 2020-08-01 09:14 | Hospitalist Progress Note ---
Date of Service August 01, 2020 Assessment & Plan (1) Alcohol abuse: Alcoholism Alcohol withdrawal ETOH level on admission 193 Continue thiamine, folic acid Alcohol withdrawal resolved. Gabapentin reduced to home dose manager clinical informatics still working on alcohol rehab placement Pancytopenia Likely due to alcohol abuse Hyperkalemia Resolved Hypomagnesemia Repleted (2) CKD (chronic kidney disease), stage III: Last Cr is 1.46 Avoid nephrotoxic agents as able (3) CAD (coronary artery disease): S/p stent H/O cardiomyopathy History negative stress test in 01/2020. Echo in 12/2019 EF 60-65% Continue aspirin, Plavix, metoprolol, statin (4) HTN (hypertension): Hypertensive urgency Continue lisinopril, metoprolol Was started on Amlodipine for better control of BP this hospital visit Continue amlodipine 5 mg daily BP better this morning but did have hypertensive episodes yesterday (5) Type 2 diabetes mellitus: HbA1c: 11.5 in 07/15/20 Noncompliance with medications Follows outpatient with [facility] and is planned to be started on Ozempic Continue Insulin therapy Monitor BGs (6) Chronic anemia: Monitor CBC (7) Chronic pain: Continue Suboxone (8) Tobacco use disorder: Smoking cessation encouraged. Provided more education Nicotine patch (9) CATALINO (obstructive sleep apnea): Noncompliance with CPAP Planned for repeat sleep study outpatient (10) Neuropathy: Continue gabapentin DVT Px Lovenox SQ Code Status Full Code Disposition: There has been difficulties and delays with getting accepting rehab place for his alcohol rehab. manager clinical informatics still working on placement. We will continue to take care of patient while this is ongoing. Patient will really benefit from inpatient alcohol rehab. He is also very motivated about this. If rehab options are exhausted, may have to discharge home + outpatient rehab with continuing to look for rehab from home Admission and Anticipated Discharge Date Admission Date: July 24, 2020 Subjective Patient seen and examined. Has no new complaints today. Frustrated about the denials and delays with respect to finding a rehab facility. Stated that he called the facility where he had had his rehab in the past and he stated that they will get back to him Physical Exam Constitutional: + well hydrated and + obese; no acute distress Eyes: PERRL, conjunctivae normal, anicteric sclerae ENMT: external ear and nose normal, oropharynx normal Respiratory: normal respiratory effort, lungs clear to auscultation Cardiovascular: RRR, no murmur, no edema Gastrointestinal (Abdomen): normal bowel sounds, soft, nontender, no hepatosplenomegaly Musculoskeletal: no cyanosis or clubbing, extremities motor strength 5/5 Neurologic: PERRL, EOMI, accommodation nl, no face palsy, no dysarthria Psychiatric: A+Ox3, euthymic affect Results & Data Results & Data ([facility]) Vital Signs (Past 12 Hours) Vital Signs Temp Pulse Pulse Resp BP Pulse Ox 08/01/20 07:43 36.7 C 85 19 107/78 92 08/01/20 07:01 60 08/01/20 00:00 62 07/31/20 22:52 36.4 C L 62 16 151/87 H 94 Laboratory Results Abnormal lab results 07/31/20 07/31/20 07/31/20 Range/Units 11:48 16:57 20:08 POC Glucose 206 H 100 H 191 H (70-99) mg/dl 08/01/20 Range/Units 07:52 POC Glucose 183 H (70-99) mg/dl
[2020-08-01] MEDS: ASPIRIN 81 MG ECTAB PO SCH (10:02)
[2020-08-01] MEDS: GABAPENTIN 300 MG CAP PO SCH (20:36)
[2020-08-02] MEDS: FUROSEMIDE 40 MG TAB PO SCH (08:27)
[2020-08-02] MEDS: VENLAFAXINE HCL XR 150 MG CAPXR PO SCH (08:27)
[2020-08-02] MEDS: THIAMINE HCL 100 MG TAB PO SCH (08:27)
[2020-08-02] MEDS: MULTIVITAMIN TAB PO SCH (08:27)
[2020-08-02] MEDS: NICOTINE 21 MG/24 HR TDSY TD SCH (08:27)
[2020-08-02] MEDS: CYANOCOBALAMIN 500 MCG TABLET (VITAMIN B-12) PO SCH (08:27)
[2020-08-02] MEDS: amLODIPine BESYLATE 5 MG TAB PO SCH (08:27)
[2020-08-02] MEDS: BUPRENORPHINE/NALOXONE 8/2 MG TAB SL SCH ×2 (08:27→21:27)
[2020-08-02] MEDS: lisinopril 40 MG TAB PO SCH (08:27)
[2020-08-02] MEDS: ASPIRIN 81 MG ECTAB PO SCH (08:27)
[2020-08-02] MEDS: MAGNESIUM OXIDE 400 MG TAB PO SCH ×2 (08:27→21:28)
[2020-08-02] MEDS: FOLIC ACID 1 MG TAB PO SCH (08:27)
[2020-08-02] MEDS: METOPROLOL SUCC 50MG EXT REL TAB PO SCH (08:27)
[2020-08-02] MEDS: ATORVASTATIN 40 MG TAB PO SCH (08:27)
[2020-08-02] MEDS: ENOXAPARIN INJ 40 MG/0.4 ML SYR SQ SCH (08:27)
[2020-08-02] MEDS: GABAPENTIN 300 MG CAP PO SCH ×2 (08:27→21:29)
[2020-08-02] MEDS: INSULIN ASPART 100 UNITS/ML 3 ML PEN SC SCH ×4 (08:28→21:30)
[2020-08-02] MEDS: INSULIN GLARGINE SOLOSTAR 100 UNITS/ML 3 ML PEN SC SCH (08:28)
[2020-08-02] MEDS: CLOTRIMAZOLE 1% CR 15 GM TUBE TOP SCH ×2 (08:33→21:27)
--- NOTE | 2020-08-02 09:44 | Hospitalist Progress Note ---
Date of Service August 02, 2020 Assessment & Plan (1) Alcohol abuse: Alcoholism Alcohol withdrawal ETOH level on admission 193 Continue thiamine, folic acid Alcohol withdrawal resolved. Gabapentin reduced to home dose order manager still working on alcohol rehab placement Pancytopenia Likely due to alcohol abuse Hyperkalemia Resolved Hypomagnesemia Repleted (2) CKD (chronic kidney disease), stage III: Last Cr is 1.46 Avoid nephrotoxic agents as able (3) CAD (coronary artery disease): S/p stent H/O cardiomyopathy History negative stress test in 01/2020. Echo in 12/2019 EF 60-65% Continue aspirin, Plavix, metoprolol, statin (4) HTN (hypertension): Hypertensive urgency Continue lisinopril, metoprolol Was started on Amlodipine for better control of BP this hospital visit Continue amlodipine 5 mg daily (5) Type 2 diabetes mellitus: HbA1c: 11.5 in 07/15/20 Noncompliance with medications Follows outpatient with [facility] and is planned to be started on Ozempic Continue Insulin therapy Monitor BGs (6) Chronic anemia: Monitor CBC (7) Chronic pain: Continue Suboxone (8) Tobacco use disorder: Smoking cessation encouraged. Provided more education Nicotine patch (9) CATALINO (obstructive sleep apnea): Noncompliance with CPAP Planned for repeat sleep study outpatient (10) Neuropathy: Continue gabapentin DVT Px Lovenox SQ Code Status Full Code Disposition: CM working on rehab Patient will really benefit from inpatient alcohol rehab. He is also very emelina vated about this. If rehab options are exhausted, may have to discharge home + outpatient rehab with continuing to look for rehab from home Plan for discharge tomorrow Admission and Anticipated Discharge Date Admission Date: July 24, 2020 Subjective Patient seen and examined No new complaints today order manager working on alcohol rehab Physical Exam Constitutional: + well hydrated and + obese; no acute distress Eyes: PERRL, conjunctivae normal, anicteric sclerae ENMT: external ear and nose normal, oropharynx normal Respiratory: normal respiratory effort, lungs clear to auscultation Cardiovascular: RRR, no murmur, no edema Gastrointestinal (Abdomen): normal bowel sounds, soft, nontender, no hepatosplenomegaly Musculoskeletal: no cyanosis or clubbing, extremities motor strength 5/5 Neurologic: PERRL, EOMI, accommodation nl, no face palsy, no dysarthria Psychiatric: A+Ox3, euthymic affect Results & Data Results & Data ([facility]) Vital Signs (Past 12 Hours) Vital Signs Temp Pulse Resp BP BP Pulse Ox 08/02/20 08:03 36.6 C 66 19 152/86 H 90 08/01/20 22:46 36.6 C 64 18 154/94 H 92 Laboratory Results Abnormal lab results 08/01/20 08/01/20 08/01/20 Range/Units 11:45 16:45 20:11 POC Glucose 215 H 109 H 225 H (70-99) mg/dl 08/02/20 Range/Units 07:55 POC Glucose 273 H (70-99) mg/dl
--- NOTE | 2020-08-02 12:01 | Pharmacy Report ---
Pharmacy Glycemic Short Note 2 - Date of Service August 02, 2020 - Glycemic Short BSG Results (Last 24 hours): 08/01/20 08/01/20 08/02/20 16:45 20:11 07:55 POC Glucose 109 H 225 H 273 H 08/02/20 11:54 POC Glucose 174 H OUTPATIENT ANTIDIABETIC REGIMEN: * Levemir 30 units SC HS * Novolog SSI * Ozempic 0.5 mg SC weekly * HbA1c = 11.5% (07/15/20) ASSESSMENT: 08/02: * Pt has received 74 units of insulin over the past 24hrs * 35 units of basal with Lantus * 39 units of bolus with NovoLog * BSGs [phone] mg/dl * AM fasting BSG elevated- will increase Lantus slightly * Post-prandial BSGs elevated- will tighten CR but will loosen CF since BSG dropped to 109 mg/dl yesterday at dinner after receiving CF+CR 07/30: * Patient received total of 82 units of insulin yesterday, of which 30 units were basal * Fasting BSG 128 mg/dL - improved, had increased dose to home dose yesterday - plan to continue same * Continue same CF/CR for now 07/26: * Mr. Dillard received a total of 72 units of insulin yesterday * 30 units basal + 42 units bolus * BSGs were: [phone] mg/dL * Fasting improved this AM to 159 mg/dL * Will decrease basal by ~15% today * Will loosen correction factor and carb ratio with lunch as patient's postprandial BSGs trended downward throughout the day yesterday 07/25: * 55 yo M admitted last evening to get medical clearance to go to rehab. Pharmacy was consulted this morning to assist with inpatient glycemic management. * BSGs have been significantly elevated since admission: [phone] mg/dL (last night) * Patient received a 9 unit IV bolus + 20 units of Lantus + 8 units of Novolog for hyperglycemia last evening * Fasting BSG is elevated at 281 mg/dL this AM * Already received 20 units of Lantus this AM. Will add another 10 units to match home dose of 30 units total today. * Since patient was started on Lantus and charged for a pen, will not transition back to Levemir at this time * Compliance issues as outpatient so expecting patient to be basal deficient which is likely the cause of hyperglycemia. * Tightened Novolog to match a weight and stress of 3 (Actual BW) for this patient. Tightened goal range as well. PLAN FOR INPATIENT GLYCEMIC CONTROL: * Basal insulin * increase Lantus 45 units Qam * Bolus insulin : tighten CR and loosen CF * NovoLog per scale ACHS or Q6hrs while NPO * Goal Range: Low 110 mg/dL - High 140 mg/dL * Correction Factor: 20 mg/dL/unit * Nutritional / Prandial insulin per carb ratio of 1 unit per 5 grams CHO consumed PLAN FOR DISCHARGE: * HbA1c = 11.5% which is well above goal range for this patient. Compliance issues at home. [facility] and past HbA1c's have been much better when patient is compliant with medications at home. * No changes recommended to outpatient insulin regimen. Will likely continue basal-bolus regimen at rehab facility.
[2020-08-03] MEDS: ZOLPIDEM TARTRATE 5 MG TAB PO PRN ×2 (03:26→23:25)
[2020-08-03] MEDS: NICOTINE 21 MG/24 HR TDSY TD SCH (08:59)
[2020-08-03] MEDS: BUPRENORPHINE/NALOXONE 8/2 MG TAB SL SCH ×2 (08:59→20:34)
[2020-08-03] MEDS: CLOTRIMAZOLE 1% CR 15 GM TUBE TOP SCH ×2 (08:59→20:34)
[2020-08-03] MEDS: ENOXAPARIN INJ 40 MG/0.4 ML SYR SQ SCH (08:59)
[2020-08-03] MEDS: lisinopril 40 MG TAB PO SCH (09:00)
[2020-08-03] MEDS: FUROSEMIDE 40 MG TAB PO SCH (09:00)
[2020-08-03] MEDS: MULTIVITAMIN TAB PO SCH (09:00)
[2020-08-03] MEDS: GABAPENTIN 300 MG CAP PO SCH ×2 (09:00→20:35)
[2020-08-03] MEDS: METOPROLOL SUCC 50MG EXT REL TAB PO SCH (09:00)
[2020-08-03] MEDS: ASPIRIN 81 MG ECTAB PO SCH (09:00)
[2020-08-03] MEDS: THIAMINE HCL 100 MG TAB PO SCH (09:00)
[2020-08-03] MEDS: FOLIC ACID 1 MG TAB PO SCH (09:00)
[2020-08-03] MEDS: VENLAFAXINE HCL XR 150 MG CAPXR PO SCH (09:00)
[2020-08-03] MEDS: CYANOCOBALAMIN 500 MCG TABLET (VITAMIN B-12) PO SCH (09:00)
[2020-08-03] MEDS: MAGNESIUM OXIDE 400 MG TAB PO SCH ×2 (09:01→20:35)
[2020-08-03] MEDS: ATORVASTATIN 40 MG TAB PO SCH (09:01)
[2020-08-03] MEDS: amLODIPine BESYLATE 5 MG TAB PO SCH (09:01)
[2020-08-03] MEDS: INSULIN ASPART 100 UNITS/ML 3 ML PEN SC SCH ×4 (09:01→20:36)
[2020-08-03] MEDS: INSULIN GLARGINE SOLOSTAR 100 UNITS/ML 3 ML PEN SC SCH (09:02)
--- NOTE | 2020-08-03 11:23 | Hospitalist Progress Note ---
Date of Service August 03, 2020 Assessment & Plan (1) Alcohol abuse: Alcoholism Alcohol withdrawal ETOH level on admission 193 Continue thiamine, folic acid Alcohol withdrawal resolved. CM has been working on alcohol rehab placement for some days now Patient has been on suboxone. I spoke with Dr Ron Michelle who has been prescribing that. He reported that patient is on this for chronic back pain management and has been on suboxone for a long time with good pain control. He also reported that patient will benefit from inpatient alcohol rehab and recommend continuing home dose of suboxone. CM notified about this Pancytopenia Likely due to alcohol abuse Hyperkalemia Resolved Hypomagnesemia Repleted (2) CKD (chronic kidney disease), stage III: Last Cr is 1.46 Avoid nephrotoxic agents as able (3) CAD (coronary artery disease): S/p stent H/O cardiomyopathy History negative stress test in 01/2020. Echo in 12/2019 EF 60-65% Continue aspirin, Plavix, metoprolol, statin (4) HTN (hypertension): Hypertensive urgency Continue lisinopril, metoprolol Was started on Amlodipine for better control of BP this hospital visit Continue amlodipine 5 mg daily (5) Type 2 diabetes mellitus: HbA1c: 11.5 in 07/15/20 Noncompliance with medications Follows outpatient with [facility] and is planned to be started on Ozempic Continue Insulin therapy Monitor BGs (6) Chronic anemia: Monitor CBC (7) Chronic pain: Continue Suboxone (8) Tobacco use disorder: Smoking cessation encouraged. Provided more education Nicotine patch (9) CATALINO (obstructive sleep apnea): Noncompliance with CPAP Planned for repeat sleep study outpatient (10) Neuropathy: Continue gabapentin DVT Px Lovenox SQ Code Status Full Code Disposition: TICO working on rehab Patient will really benefit from inpatient alcohol rehab. He is also very motivated about this. Admission and Anticipated Discharge Date Admission Date: July 24, 2020 Subjective Patient seen and examined. No new complaints today except for hand and feet paresthesias and chronic low back pain Physical Exam Constitutional: + well hydrated and + obese; no acute distress Eyes: PERRL, conjunctivae normal, anicteric sclerae ENMT: external ear and nose normal, oropharynx normal Respiratory: normal respiratory effort, lungs clear to auscultation Cardiovascular: RRR, no murmur, no edema Gastrointestinal (Abdomen): normal bowel sounds, soft, nontender, no hepatosplenomegaly Musculoskeletal: no cyanosis or clubbing, extremities motor strength 5/5 Neurologic: PERRL, EOMI, accommodation nl, no face palsy, no dysarthria Psychiatric: A+Ox3, euthymic affect Results & Data Results & Data ([facility]) Vital Signs (Past 12 Hours) Vital Signs Temp Pulse Resp BP Pulse Ox 08/03/20 07:42 36.5 C 59 L 16 135/84 95
--- NOTE | 2020-08-04 08:50 | Pharmacy Report ---
Pharmacy Glycemic Short Note 2 - Date of Service August 04, 2020 - Glycemic Short BSG Results (Last 24 hours): 08/03/20 08/03/20 08/03/20 11:43 16:44 20:13 POC Glucose 192 H 200 H 123 H 08/04/20 07:37 POC Glucose 166 H OUTPATIENT ANTIDIABETIC REGIMEN: * Levemir 30 units SC HS * Novolog SSI * Ozempic 0.5 mg SC weekly * HbA1c = 11.5% (07/15/20) ASSESSMENT: 08/04: * BSGs yesterday of 182, 192, 200, and 123 mg/dL * Received 92 units of insulin (45 units of Lantus and 47 units of prandial/correctional Novolog) * Fasting BSG of 166 mg/dL this morning (improved from 182 mg/dL day prior) * Will increase Lantus by ~10% this morning * Carb ratio tightened yesterday, will tighten correction factor as well 08/02: * Pt has received 74 units of insulin over the past 24hrs * 35 units of basal with Lantus * 39 units of bolus with NovoLog * BSGs [phone] mg/dl * AM fasting BSG elevated- will increase Lantus slightly * Post-prandial BSGs elevated- will tighten CR but will loosen CF since BSG dropped to 109 mg/dl yesterday at dinner after receiving CF+CR 07/25: * 55 yo M admitted last evening to get medical clearance to go to rehab. Pharmacy was consulted this morning to assist with inpatient glycemic prashant gement. * BSGs have been significantly elevated since admission: [phone] mg/dL (last night) * Patient received a 9 unit IV bolus + 20 units of Lantus + 8 units of Novolog for hyperglycemia last evening * Fasting BSG is elevated at 281 mg/dL this AM * Already received 20 units of Lantus this AM. Will add another 10 units to match home dose of 30 units total today. * Since patient was started on Lantus and charged for a pen, will not transition back to Levemir at this time * Compliance issues as outpatient so expecting patient to be basal deficient which is likely the cause of hyperglycemia. * Tightened Novolog to match a weight and stress of 3 (Actual BW) for this patient. Tightened goal range as well. PLAN FOR INPATIENT GLYCEMIC CONTROL: * Basal insulin * increase Lantus 50 units SC qAM * Bolus insulin : tighten * NovoLog per scale ACHS or Q6hrs while NPO * Goal Range: Low 110 mg/dL - High 140 mg/dL * Correction Factor: 15 mg/dL/unit * Nutritional / Prandial insulin per carb ratio of 1 unit per 4 grams CHO consumed PLAN FOR DISCHARGE: * HbA1c = 11.5% which is well above goal range for this patient. Compliance issues at home. * Based on inpatient needs, it seems appropriate to increase Levemir to 45 units SC daily and continue Ozempic and Novolog as previously prescribed
[2020-08-04] MEDS ORDERED: INSULIN GLARGINE SOLOSTAR 100 UNITS/ML 3 ML PEN SC SCH (09:00)
[2020-08-04] MEDS: MULTIVITAMIN TAB PO SCH (09:36)
[2020-08-04] MEDS: MAGNESIUM OXIDE 400 MG TAB PO SCH (09:36)
[2020-08-04] MEDS: amLODIPine BESYLATE 5 MG TAB PO SCH (09:47)
[2020-08-04] MEDS: VENLAFAXINE HCL XR 150 MG CAPXR PO SCH (09:47)
[2020-08-04] MEDS: CYANOCOBALAMIN 500 MCG TABLET (VITAMIN B-12) PO SCH (09:47)
[2020-08-04] MEDS: ASPIRIN 81 MG ECTAB PO SCH (09:47)
[2020-08-04] MEDS: lisinopril 40 MG TAB PO SCH (09:47)
[2020-08-04] MEDS: ATORVASTATIN 40 MG TAB PO SCH (09:47)
[2020-08-04] MEDS: FUROSEMIDE 40 MG TAB PO SCH (09:48)
[2020-08-04] MEDS: GABAPENTIN 300 MG CAP PO SCH (09:48)
[2020-08-04] MEDS: THIAMINE HCL 100 MG TAB PO SCH (09:48)
[2020-08-04] MEDS: ENOXAPARIN INJ 40 MG/0.4 ML SYR SQ SCH (09:48)
[2020-08-04] MEDS: NICOTINE 21 MG/24 HR TDSY TD SCH (09:48)
[2020-08-04] MEDS: FOLIC ACID 1 MG TAB PO SCH (09:48)
[2020-08-04] MEDS: INSULIN ASPART 100 UNITS/ML 3 ML PEN SC SCH ×2 (09:49→12:35)
[2020-08-04] MEDS: CLOTRIMAZOLE 1% CR 15 GM TUBE TOP SCH (09:53)
[2020-08-04] MEDS: METOPROLOL SUCC 50MG EXT REL TAB PO SCH (09:53)
[2020-08-04] MEDS: BUPRENORPHINE/NALOXONE 8/2 MG TAB SL SCH (10:00)
--- NOTE | 2020-08-04 14:35 | Discharge Summary ---
Date of Service August 04, 2020 Admission HPI Per Admitting Provider Pt is 55 y/o M with PMH uncontrolled DM II, HTN, HLD, alcohol abuse, CAD s/p stent, chronic back pain, untreated CATALINO, tobacco abuse, neuropathy, CKD III presented to ER for medical clearance to go to alcohol rehab. Patient has been working with [facility] addiction coordinator and [facility] however needed medical clearance first. Upon arrival to ER it is reported will not except patient currently as it is requested he has medical detox from alcohol as he has history of alcohol withdrawal seizures in past. Patient drinks half gallon of vodka a day. Reports drinks 1/5 vodka prior to ER arrival today. Patient reports chronic lower extremity edema and feels it is at baseline. Has chronic cough and wheezing and denies any increased cough or wheezing. States had nebulizer in past, but is working with outpatient for new one. Noncompliant with CPAP in the past. Patient states has sleep study in the near future to be rechecked. Denies any other complaints currently. Does not feel withdrawal symptoms yet. Denies fever/chills, diaphoresis, N/V/D/C, HORVATH, dizziness, syncope, vision changes, neck pain, CP, SOB, palpitations, sore throat, choking, otalgia, rhinorrhea, abdominal pain, paresthesias, weakness, extremity weakness, urinary symptoms. Admission Exam Per Admitting Provider General: no distress, obese Head: normocephalic, atraumatic Eyes: PERRL, EOM's intact, conjunctiva non-injected, anicteric ENT: normal inspection external ears, nose, mucous membranes moist Neck: supple, trachea midline Lungs: no respiratory distress, + wheezing throughout, no rhonchi/rales CV: RRR, no murmur, 1+ pretibial edema Abd: normal BS, soft, non-tender Ext: no cyanosis, no calf tenderness Neuro: A&O x 3, no focal deficits noted, normal affect Skin: warm, dry Principal Diagnosis Alcoholism Alcohol withdrawal Hypertension Poorly controlled diabetes mellitus Discharge Exam Constitutional + well hydrated and + obese; no acute distress Eyes PERRL, conjunctivae normal, anicteric sclerae ENMT external ear and nose normal, oropharynx normal Respiratory normal respiratory effort, lungs clear to auscultation Cardiovascular RRR, no murmur, no edema Gastrointestinal (Abdomen) normal bowel sounds, soft, nontender, no hepatosplenomegaly Musculoskeletal no cyanosis or clubbing, extremities motor strength 5/5 Neurologic PERRL, EOMI, accommodation nl, no face palsy, no dysarthria Psychiatric A+Ox3, euthymic affect Discharge Data Allergies Allergy/AdvReac Type Severity Reaction Status Date / Time No Known Allergies Allergy Verified 07/24/20 15:25 Consultations 07/24/20 16:09 ED Decision to Admit Stat Hospital Course (1) Alcohol abuse: Alcoholism Alcohol withdrawal ETOH level on admission 193 Continue thiamine, folic acid Managed for alcohol withdrawal Patient wanted to go to inpatient alcohol rehab I and CM contacted multiple rehab centers and they all declined citing they cannot manage patient's chronic medical problems though they had all been stable while inpatient. Patient was interested in trial of antabuse I discussed the medication (disulfiram) with patient and what to expect if he drinks while on it. Script sent to his pharm. I also contacted Dr Ron Durán who manages his chronic back pain with suboxone. I informed him about this and to follow up with the patient. Appointments were made for him with his PCP and Dr Durán Pancytopenia Likely due to alcohol abuse Hyperkalemia Resolved Hypomagnesemia Repleted (2) CKD (chronic kidney disease), stage III: Last Cr is 1.46 Avoid nephrotoxic agents as able (3) CAD (coronary artery disease): S/p stent H/O cardiomyopathy History negative stress test in 01/2020. Echo in 12/2019 EF 60-65% Continue aspirin, Plavix, metoprolol, statin (4) HTN (hypertension): Hypertensive urgency Continue lisinopril, metoprolol Was started on Amlodipine for better control of BP this hospital visit BP is better controlled now Continue amlodipine 5 mg daily (5) Type 2 diabetes mellitus: HbA1c: 11.5 in 07/15/20 Noncompliance with medications Follows outpatient with [facility] and is planned to be started on Ozempic Home levemir was increased from 30Units to 45Units daily Continue sliding scale short acting Provided diabetes education (6) Chronic anemia: Stable (7) Chronic pain: Continue Suboxone (8) Tobacco use disorder: Smoking cessation encouraged. Provided more education Nicotine patch (9) CATALINO (obstructive sleep apnea): Noncompliance with CPAP Need repeat sleep study outpatient (10) Neuropathy: Continue gabapentin Total Time Total Time Spent Total Time Spent (In Minutes): 60 Total Time Includes: Examination of the Patient, Discharge Planning, Medication Reconciliation and Communication With Other Providers Discharge Plan Discharge Items Patient Disposition: Home - Self-Care Reason For Visit: ETOH WITHDRAWAL Discharge Diagnosis: Alcoholism Alcohol withdrawal Hypertension Activity: Resume your previous activity Non-emergency contact: Primary Care Provider Call non-emergency contact if: you have any medication questions Follow-up/Referrals: Charity Kasper MD [Primary Care Provider] - (Date & Time 08/10/2020 8:00 AM Provider Charity Reed MD Department General Internal Medicine [facility] Dr Ron Michelle with [employer] Thursday 08/10 @ 11:15 am. ) Diet: Carb Consistent or DM2 and Heart Healthy Mk Attending Provider Instructions: Mr Dillard. You presented to the hospital for detox from alcohol prior to going to alcohol rehab. You were managed for alcohol withdrawal as well while inpatient. You were started on new medication (amlodipine) for better blood pressure control. Multiple attempts at inpatient alcohol rehab were unsuccessful You are being discharged home. Please ensure follow up with outpatient alcohol rehab and resources provided Your insulin levemir was increased to 45Units once daily as we discussed for better blood glucose management. I also prescribed a week of antabuse (disulfiram) as we discussed. Please follow up with Dr Michelle about this. Please monitor this and follow up with your Primary Doctor It is very important you continue your medications as prescribed. It is very important that you quit smoking as we discussed as well. It was a pleasure taking care of you. Mk Bin Packer Provider Instructions: Date & Time 08/10/2020 8:00 AM Provider Charity Reed MD Department General Internal Medicine [facility] Dr Ron Michelle with [employer] Thursday 08/10 @ 11:15 am. Pending Studies at Discharge: No Stand-Alone Forms: My [employer], Smoking Cessation Medications and DC Order Prescriptions: New amlodipine [Norvasc] 5 mg Tablet 5 mg PO QAM Qty: 30 RF: 0 disulfiram 500 mg tablet 500 mg PO DAILY Qty: 14 RF: 0 Continued insulin aspart U-100 [Novolog Flexpen U-100 Insulin] 100 unit/mL Insulin Pen See Rx Instructions .ROUTE .COMPLEX RF: 0 folic acid 1 mg tablet 1 mg PO QAM RF: 0 buprenorphine-naloxone 8-2 mg tablet, sublingual 1 tab SUBLINGUAL BID RF: 0 metoprolol succinate [Toprol XL] 50 mg tablet extended release 24 hr 50 mg PO QAM RF: 0 venlafaxine [Effexor XR] 150 mg capsule,extended release 24hr 150 mg PO QAM RF: 0 aspirin [Ecotrin Low Strength] 81 mg tablet,delayed release (DR/EC) 81 mg PO QAM RF: 0 nicotine [Nicoderm CQ] 21 mg/24 hr Patch 24 Hour 21 mg transdermal QAM Qty: 14 RF: 1 gabapentin 300 mg Capsule 300 mg PO BID Qty: 60 RF: 0 furosemide 40 mg Tablet 40 mg PO QAM Qty: 30 RF: 0 magnesium oxide 400 mg (241.3 mg magnesium) Tablet 400 mg PO QAM Qty: 30 RF: 0 thiamine HCl (vitamin B1) [Vitamin B-1] 100 mg Tablet 100 mg PO QAM Qty: 30 RF: 1 multivitamin Tablet 1 tab PO DAILY RF: 0 atorvastatin 80 mg Tablet 80 mg PO DAILY RF: 0 urea 20 % Cream 1 applic TOPICAL BID RF: 0 naloxone 0.4 mg/mL Solution 0 mg intranasal DIRECTED PRN (Reason: OVERSEDATION) RF: 0 cyanocobalamin (vitamin B-12) [Vitamin B-12] 1,000 mcg Tablet 1,000 mcg PO DAILY RF: 0 nitroglycerin [Nitrostat] 0.4 mg Tablet, Sublingual 0.4 mg sublingual DIRECTED PRN (Reason: Chest Pain) RF: 0 clotrimazole 1 % Cream 1 applic TOPICAL BID RF: 0 Ozempic 1 mg/dose (2 mg/1.5 mL) Pen Injector 0.5 mg SUBCUT WK RF: 0 albuterol sulfate 2.5 mg /3 mL (0.083 %) Solution For Nebulization 2.5 mg INHALATION QID PRN (Reason: Shortness Of Breath Or Wheezing) RF: 0 lisinopril [Zestril] 40 mg tablet 40 mg PO QAM Qty: 30 RF: 0 Changed Levemir FlexTouch U-100 Insuln 100 unit/mL (3 mL) insulin pen 45 unit subcut HS Qty: 15 RF: 0 Discharge Orders: Discharge Order (Routine); Ordered 08/04/20 Ordered By: Janie Campbell/Other Patient Handouts: Alcoholism How to be Part of the ..., Alcoholism: Getting Help Admission Data Admit Date/Time: 07/24/20 16:53 Attending Provider: Janie Beltre I. Admit Provider: Jonathan Payne Primary Care Provider: Charity Kasper Other Providers: Tico Bullock ; Jonathan Payne Other Interventions: Discharge Summary Assessment (RN) Last Done: 08/04/20 14:47
== END 2020-08-04 15:36 | disposition home or self-care (01) | DRG 897 ==
LOC: ED 13:26 → SUATTDRO 16:53 → 2S 16:53 → 2N 07-28 12:29

== ENCOUNTER 2020-10-13 21:53 | Inpatient (IN) ==
[2020-10-13] MEDS ORDERED: FOLIC ACID 1 MG TAB PO ONE (23:22)
[2020-10-13] MEDS ORDERED: THIAMINE HCL 100 MG TAB PO ONE (23:22)
[2020-10-13 23:46] LABS: Basophils # (auto) 0.01 K/uL (0-0.2); Basophils % (auto) 0.2 %; Eosinophils # (auto) 0.01 K/uL (0-0.5); Eosinophils % (auto) 0.2 %; Hematocrit (blood only) 33.8 % (42-52); Hemoglobin 11.4 g/dL (14.0-18.0); Immature Granulocytes # (auto) 0.01 K/uL (0.00-0.02); Immature Granulocytes % (auto) 0.2 %; Lymphocytes # (auto) 0.76 K/uL (1.2-3.4); Mean Corpuscular Hemoglobin 31.8 pg (25-34); Mean Corpuscular Hgb Conc 33.7 g/dL (32-36); Mean Corpuscular Volume 94.2 fL (80-100); Mean Platelet Volume 10.1 fL (7.4-10.4); Monocytes # (auto) 0.57 K/uL (0.11-0.59); Monocytes % (auto) 12.8 %; Neutrophils % (auto) 69.6 %; Platelet Count 222 K/uL (130-400); RDW Coefficient of Variation 13.5 % (11.5-14.5); RDW Standard Deviation 46.9 fL (36.4-46.3); Red Blood Count 3.59 M/uL (4.7-6.1); White Blood Count 4.46 K/uL (4.8-10.8)
[2020-10-13 23:55] LABS: BUN Creatinine Ratio 22.7 (10-20); Creatinine Clr Calc Pharmacy 122.1 ml/min; Est GFR (African American) 111.8 ml/min; Est GFR (Non-African American) 96.5 ml/min; Magnesium 1.5 mg/dl (1.8-2.4); Potassium 3.9 mmol/L (3.5-5.1)
--- NOTE | 2020-10-14 00:02 | Emergency Department Note ---
Impression & Plan Leg swelling, Hypomagnesemia, Alcohol intoxication, Alcohol abuse ED Provider Note Provider: Reid Mullen MD DATE OF SERVICE: 10/13/2020 CHIEF COMPLAINT: Leg swelling HISTORY OF PRESENT ILLNESS: Patient is a 55-year-old gentleman history of alcohol abuse, CKD, type 2 diabetes, cirrhosis of the liver, and alcohol withdrawal presenting here today reporting increase over the past 2 to 3 weeks of leg swelling. States these are somewhat tender and are much more swollen. Has been heavily drinking vodka he reports. Denies significant abdominal pain or chest pain. States the swelling extends from his legs into his abdomens. No fevers reported. Denies significant injury or trauma to the legs or head. Reports he wants help with his alcohol and states he has had withdrawal before including seizures. States he does have a history of leg swelling in the past and responded to diuretics but does not been on these at home. Patient with chronic lower back pain on Suboxone. REVIEW OF SYSTEMS: A total of 10 review of systems was obtained and negative except as stated above in the HPI. PAST MEDICAL HISTORY: As noted above MEDICATIONS: Reviewed home medications with the patient SOCIAL HISTORY: Smoker, lives in , heavy alcohol use/abuse, single PHYSICAL EXAM: GENERAL: alert and oriented in no acute distress on stretcher fatigued in appearance Head: normocephalic and atraumatic EYES: No injection, discharge or icterus. PERRL NECK: Trachea midline. Supple. ENT: Mucous membranes pink and moist. LUNGS: Airway patent. No retractions. Breath sounds clear with scant scattered wheeze HEART: Regular rate and rhythm. No chest wall tenderness ABDOMEN: Soft and non-tender, without guarding or rebound with minimal distention SKIN: Acyanotic, warm, dry EXTREMITIES: 2+ lower extremity swelling with mild diffuse erythema, no weeping liquid, no fluctuance abscesses appreciated NEUROLOGICAL: No focal deficits. No aphasia. No facial droop or slurred speech. EK beats. Normal sinus rhythm. No PVC or PAC. QTc 493. No acute ST segment elevation or depression. CONTINUOUS CARDIAC MONITORING: was ordered and showed a heart rate of 70s-90s bpm in normal sinus rhythm 1 view chest x-ray per interpretation without evidence of pneumothorax, pneumonia, or pleural effusion. Patient's laboratory studies and imaging reviewed. Differential includes Infection, dehydration, metabolic abnormality, hypo/hyperglycemia, electrolyte disturbance, anemia, hypoxia, cardiac sources, intracerebral event, toxicologic, neurologic, as well as other pathologies. IMPRESSION/MEDICAL DECISION MAKING: Patient states last drink was several hours ago and history of alcohol withdrawal. Appers on intoxicated here. Significant lower extremity swelling. Doubt this represents acute infection. Basic labs obtained as well as EKG and alcohol level. Given his history of CKD wanted to creatinine before proceeding with aggressive diuresis. No infectious symptoms reported or fever. Chest X without significant pulmonary edema or pneumonia noted. Evidence of some hypomagnesemia and this was repleted here. Alcohol level is elevated. Covid test sent. Given his wish for withdrawal and evidence of fluid overload feel that monitor diuresis and monitoring for withdrawal would be appropriate pending medical clearance for rehab if able. Patient was in agreement with this. Given some Lasix here with a stable renal function. Troponin appears elevated but chronically elevated. Not having active chest pain. Discussed with patient staying for diuresis and possible rehab placement when stabilized from this. He was in agreement. Hospitalist contacted. No evidence of acute withdrawal at this time but will need close monitoring given history. DIAGNOSIS: Hypomagnesemia, leg edema, alcohol intoxication, alcohol abuse DISPOSITION: Hospitalist will evaluate Patient was agreeable with this plan. Past Med/Surg History Medical History (Updated 10/14/20 @ 00:47 by Reid Mullen M.D.) Alcohol use disorder Bilateral edema of lower extremity Chronic anemia CKD (chronic kidney disease), stage III Diabetes mellitus type 2 with complications TONEY (dyspnea on exertion) Edema Elevated troponin HTN (hypertension) Mood disorder Neuropathy NSTEMI (non-ST elevated myocardial infarction) Obesity CATALINO (obstructive sleep apnea) CATALINO (obstructive sleep apnea) Proteinuria Smoking Tobacco use disorder Type 2 diabetes mellitus Surgical History History of cardiac catheterization 1 ELIESER to proximal OM by Dr. Guerrero on 01/01/19 History of lymph node biopsy Family History Other Heart disease Social History (Updated 07/24/20 @ 17:40 by Josselyn Perales PA-C) Smoking Status: Current every day smoker Tobacco Type: Cigarettes Years Smoked: 39; Cigarettes Per Day: 2 packs/day; Second Hand Exposure: Yes; Hx Alcohol Use: Yes Alcohol type: hard liquor Alcohol type Comment: 1/2 gallon vodka a day Hx Substance Use: Yes Last Used Substance: Unknown Last Used Substance Other:: takes suboxone Substance Use Type Other:: pt does take suboxone BID Preferred Language: Ukrainian Communication Ability: Effective Paleology Professor Required: No Beliefs That Will Affect Care: None marital status: Single Current Living Situation: Alone Current Living Situation Comment: in RV in friends driveway current occupational status: unemployed How many Children do You have: 2 Feels Safe at Home: Yes Assistive Devices: None Allergies Allergies Allergy/AdvReac Type Severity Reaction Status Date / Time No Known Allergies Allergy Verified 10/14/20 00:54 Home Meds Home Medications Medication Instructions Recorded Confirmed insulin aspart U-100 100 unit/mL See Rx Instructions .ROUTE .COMPLEX 12/16/17 10/14/20 (3 mL) subcutaneous pen (Novolog Flexpen U-100 Insulin aspart) aspirin 81 mg tablet,delayed 81 mg PO QAM 08/26/19 10/14/20 release (Ecotrin Low Strength) metoprolol succinate 50 mg 50 mg PO QAM 08/26/19 10/14/20 tablet,extended release 24 hr (Toprol XL) venlafaxine 150 mg 150 mg PO QAM 08/26/19 10/14/20 capsule,extended release 24 hr (Effexor XR) buprenorphine 8 mg-naloxone 2 mg 1 tab SUBLINGUAL BID 01/16/20 10/14/20 sublingual tablet folic acid 1 mg tablet 1 mg PO QAM 01/16/20 10/14/20 albuterol sulfate 2.5 mg INHALATION QID PRN 07/24/20 10/14/20 atorvastatin 80 mg tablet 80 mg PO DAILY 07/24/20 10/14/20 clotrimazole 1 % topical cream 1 applic TOPICAL BID 07/24/20 10/14/20 cyanocobalamin (vitamin B-12) 1,000 mcg PO DAILY 07/24/20 10/14/20 1,000 mcg tablet (Vitamin B-12) multivitamin 1 tab PO DAILY 07/24/20 10/14/20 naloxone 0.4 mg/mL injection 0 mg INTRANASAL DIRECTED PRN 07/24/20 10/14/20 solution nitroglycerin 0.4 mg sublingual 0.4 mg SUBLINGUAL DIRECTED PRN 07/24/20 10/14/20 tablet (Nitrostat) semaglutide 1 mg/dose (2 mg/1.5 0.5 mg SUBCUT WK 07/24/20 10/14/20 mL) subcutaneous pen injector (Ozempic) urea 20 % topical cream 1 applic TOPICAL BID 07/24/20 10/14/20 Previous Rx's Medication Instructions Recorded furosemide 40 mg tablet 40 mg PO QAM #30 tab 03/07/20 gabapentin 300 mg capsule 300 mg PO BID #60 cap 03/07/20 magnesium oxide 400 mg (241.3 mg 400 mg PO QAM #30 tab 03/07/20 magnesium) tablet nicotine 21 mg/24 hr daily 21 mg TRANSDERMAL QAM #14 ea 03/07/20 transdermal patch (Nicoderm CQ) thiamine HCl (vitamin B1) 100 mg 100 mg PO QAM #30 tab 03/07/20 tablet (Vitamin B-1) amlodipine 5 mg tablet (Norvasc) 5 mg PO QAM #30 tab 08/04/20 disulfiram 500 mg tablet 500 mg PO DAILY #14 tab 08/04/20 insulin detemir U-100 100 unit/mL 45 unit SUBCUT HS #15 ml 08/04/20 (3 mL) subcutaneous pen (Levemir FlexTouch U-100 Insulin) lisinopril 40 mg tablet (Zestril) 40 mg PO QAM #30 tab 08/04/20 Results & Data (ED) Vital Signs Vital Signs - 24 hr 10/13/20 21:55 10/13/20 23:33 10/13/20 23:42 Temperature 36.8 C Temperature Source Temporal Artery Scan Pulse Rate 107 H Pulse Rate [Apical] 88 Respiratory Rate 20 18 Respiratory Effort / Characteristics Non-Labored Spontaneous Respiratory Depth Normal Respiratory Pattern Regular Blood Pressure 155/78 H Blood Pressure [Right Arm] 141/86 H Blood Pressure Mean 103 Blood Pressure Mean [Right Arm] 104 Blood Pressure Position Sitting Pulse Oximetry 94 95 92 Oxygen Delivery Method Room Air Room Air Room Air Sepsis Recent Fever Within 48 Hours No Sepsis New/Unexplained Change in Mental Status N/A Sepsis Action Taken by Nursing No Action Required 10/14/20 00:29 Temperature Temperature Source Pulse Rate Pulse Rate [Apical] 87 Respiratory Rate 18 Respiratory Effort / Characteristics Respiratory Depth Respiratory Pattern Blood Pressure Blood Pressure [Right Arm] 170/99 H Blood Pressure Mean Blood Pressure Mean [Right Arm] 122 Blood Pressure Position Pulse Oximetry 97 Oxygen Delivery Method Room Air Sepsis Recent Fever Within 48 Hours Sepsis New/Unexplained Change in Mental Status Sepsis Action Taken by Nursing Laboratory Data Result diagrams: 10/13/20 22:21 10/13/20 22:21 Lab Results 10/13/20 10/13/20 10/13/20 Range/Units 22:21 22:21 22:21 WBC 4.46 L (4.8-10.8) K/uL RBC 3.59 L (4.7-6.1) M/uL Hgb 11.4 L (14.0-18.0) g/dL Hct 33.8 L (42-52) % MCV 94.2 (80-100) fL MCH 31.8 (25-34) pg MCHC 33.7 (32-36) g/dL RDW Std Deviation 46.9 H (36.4-46.3) fL RDW Coeff of Alberto 13.5 (11.5-14.5) % Plt Count 222 (130-400) K/uL MPV 10.1 (7.4-10.4) fL Immature Gran % (Auto) 0.2 % Neut % (Auto) 69.6 % Lymph % (Auto) 17.0 % [place] % (Auto) 12.8 % Eos % (Auto) 0.2 % Baso % (Auto) 0.2 % Neut # (Auto) 3.10 (1.4-6.5) K/uL Lymph # (Auto) 0.76 L (1.2-3.4) K/uL [place] # (Auto) 0.57 (0.11-0.59) K/uL Eos # (Auto) 0.01 (0-0.5) K/uL Baso # (Auto) 0.01 (0-0.2) K/uL Immature Gran # (Auto) 0.01 (0.00-0.02) K/uL PT (9.0-12.0) Seconds INR (0.9-1.1) Sodium 133 L (136-145) mmol/L Potassium 3.9 (3.5-5.1) mmol/L Chloride 99 (98-107) mmol/L Carbon Dioxide 26 (21-32) mmol/L Anion Gap 8.0 (3-11) BUN 20 H (7-18) mg/dl Creatinine 0.87 (0.6-1.4) mg/dl Est Cr Clr Drug Dosing 122.1 ml/min Est GFR ( Amer) 111.8 ml/min Est GFR (Non-Af Amer) 96.5 ml/min BUN/Creatinine Ratio 22.7 H (10-20) Glucose 115 H (70-99) mg/dl Lactate (0.4-2.0) mmol/L Calcium 8.0 L (8.5-10.1) mg/dl Magnesium 1.5 L (1.8-2.4) mg/dl Total Bilirubin 0.7 (0.2-1) mg/dl AST 112 H (15-37) U/L ALT 67 (12-78) U/L Alkaline Phosphatase 123 H (45-117) U/L Troponin I 0.104 H* (0-0.045) ng/ml NT-Pro-B Natriuret Pep 3083 H (0-900) pg/ml Total Protein 6.5 (6.4-8.2) gm/dl Albumin 2.0 L (3.4-5.0) gm/dl Globulin 4.5 H (2.5-4.0) gm/dl Albumin/Globulin Ratio 0.4 L (0.9-2) TSH 2.560 (0.300-4.500) uIu/ml Ethyl Alcohol mg/dL 121.0 H (0-3) mg/dl COVID-19 Eval Order SARS-CoV-2 (PCR) (Negative) 10/13/20 10/13/20 10/14/20 Range/Units 23:37 23:37 00:02 WBC (4.8-10.8) K/uL RBC (4.7-6.1) M/uL Hgb (14.0-18.0) g/dL Hct (42-52) % MCV (80-100) fL MCH (25-34) pg MCHC (32-36) g/dL RDW Std Deviation (36.4-46.3) fL RDW Coeff of Alberto (11.5-14.5) % Plt Count (130-400) K/uL MPV (7.4-10.4) fL Immature Gran % (Auto) % Neut % (Auto) % Lymph % (Auto) % [place] % (Auto) % Eos % (Auto) % Baso % (Auto) % Neut # (Auto) (1.4-6.5) K/uL Lymph # (Auto) (1.2-3.4) K/uL [place] # (Auto) (0.11-0.59) K/uL Eos # (Auto) (0-0.5) K/uL Baso # (Auto) (0-0.2) K/uL Immature Gran # (Auto) (0.00-0.02) K/uL PT 10.6 (9.0-12.0) Seconds INR 1.0 (0.9-1.1) Sodium (136-145) mmol/L Potassium (3.5-5.1) mmol/L Chloride (98-107) mmol/L Carbon Dioxide (21-32) mmol/L Anion Gap (3-11) BUN (7-18) mg/dl Creatinine (0.6-1.4) mg/dl Est Cr Clr Drug Dosing ml/min Est GFR ( Amer) ml/min Est GFR (Non-Af Amer) ml/min BUN/Creatinine Ratio (10-20) Glucose (70-99) mg/dl Lactate (0.4-2.0) mmol/L Calcium (8.5-10.1) mg/dl Magnesium (1.8-2.4) mg/dl Total Bilirubin (0.2-1) mg/dl AST (15-37) U/L ALT (12-78) U/L Alkaline Phosphatase (45-117) U/L Troponin I (0-0.045) ng/ml NT-Pro-B Natriuret Pep (0-900) pg/ml Total Protein (6.4-8.2) gm/dl Albumin (3.4-5.0) gm/dl Globulin (2.5-4.0) gm/dl Albumin/Globulin Ratio (0.9-2) TSH (0.300-4.500) uIu/ml Ethyl Alcohol mg/dL (0-3) mg/dl COVID-19 Eval Order Covid19 at [facility] SARS-CoV-2 (PCR) NEGATIVE (Negative) 10/14/20 Range/Units 00:02 WBC (4.8-10.8) K/uL RBC (4.7-6.1) M/uL Hgb (14.0-18.0) g/dL Hct (42-52) % MCV (80-100) fL MCH (25-34) pg MCHC (32-36) g/dL RDW Std Deviation (36.4-46.3) fL RDW Coeff of Alberto (11.5-14.5) % Plt Count (130-400) K/uL MPV (7.4-10.4) fL Immature Gran % (Auto) % Neut % (Auto) % Lymph % (Auto) % [place] % (Auto) % Eos % (Auto) % Baso % (Auto) % Neut # (Auto) (1.4-6.5) K/uL Lymph # (Auto) (1.2-3.4) K/uL [place] # (Auto) (0.11-0.59) K/uL Eos # (Auto) (0-0.5) K/uL Baso # (Auto) (0-0.2) K/uL Immature Gran # (Auto) (0.00-0.02) K/uL PT (9.0-12.0) Seconds INR (0.9-1.1) Sodium (136-145) mmol/L Potassium (3.5-5.1) mmol/L Chloride (98-107) mmol/L Carbon Dioxide (21-32) mmol/L Anion Gap (3-11) BUN (7-18) mg/dl Creatinine (0.6-1.4) mg/dl Est Cr Clr Drug Dosing ml/min Est GFR ( Amer) ml/min Est GFR (Non-Af Amer) ml/min BUN/Creatinine Ratio (10-20) Glucose (70-99) mg/dl Lactate 1.1 (0.4-2.0) mmol/L Calcium (8.5-10.1) mg/dl Magnesium (1.8-2.4) mg/dl Total Bilirubin (0.2-1) mg/dl AST (15-37) U/L ALT (12-78) U/L Alkaline Phosphatase (45-117) U/L Troponin I (0-0.045) ng/ml NT-Pro-B Natriuret Pep (0-900) pg/ml Total Protein (6.4-8.2) gm/dl Albumin (3.4-5.0) gm/dl Globulin (2.5-4.0) gm/dl Albumin/Globulin Ratio (0.9-2) TSH (0.300-4.500) uIu/ml Ethyl Alcohol mg/dL (0-3) mg/dl COVID-19 Eval Order SARS-CoV-2 (PCR) (Negative) Administered Medications Magnesium Sulfate/Dextrose (Magnesium Sulfate / D5w) 1 gm in 100 mls @ 100 mls/hr IV Q1H LUCINDA Stop: 10/14/20 02:04 Last Admin: 10/14/20 00:30 Dose: 100 mls/hr Documented by: [id number] Discontinued Medications Folic Acid (Folic Acid 1 Mg Tab) 1 mg PO ONCE ONE Stop: 10/13/20 23:23 Last Admin: 10/13/20 23:50 Dose: 1 mg Documented by: [id number] Furosemide (Furosemide 40 Mg/4 Ml Vial) 40 mg IV NOW STA Stop: 10/14/20 00:06 Last Admin: 10/14/20 00:29 Dose: 40 mg Documented by: [id number] Thiamine HCl (Thiamine Hcl 100 Mg Tab) 100 mg PO ONCE ONE Stop: 10/13/20 23:23 Last Admin: 10/13/20 23:50 Dose: 100 mg Documented by: [id number] Discharge Plan Visit Data Chief Complaint: Swelling/Edema to Extremity Stated Complaint: SWOLLEN LEGS 3X HAPPENED BEFORE ED Provider: Reid Mullen Discharge Problem: Leg swelling, Hypomagnesemia, Alcohol intoxication, Alcohol abuse Patient Disposition: Being Evaluated by Hospitalist Forms Stand Alone Forms: My [facility] Prescriptions Prescriptions: No Action insulin aspart U-100 [Novolog Flexpen U-100 Insulin] 100 unit/mL Insulin Pen See Rx Instructions .ROUTE .COMPLEX RF: 0 folic acid 1 mg tablet 1 mg PO QAM RF: 0 buprenorphine-naloxone 8-2 mg tablet, sublingual 1 tab SUBLINGUAL BID RF: 0 metoprolol succinate [Toprol XL] 50 mg tablet extended release 24 hr 50 mg PO QAM RF: 0 venlafaxine [Effexor XR] 150 mg capsule,extended release 24hr 150 mg PO QAM RF: 0 aspirin [Ecotrin Low Strength] 81 mg tablet,delayed release (DR/EC) 81 mg PO QAM RF: 0 nicotine [Nicoderm CQ] 21 mg/24 hr Patch 24 Hour 21 mg transdermal QAM Qty: 14 RF: 1 gabapentin 300 mg Capsule 300 mg PO BID Qty: 60 RF: 0 furosemide 40 mg Tablet 40 mg PO QAM Qty: 30 RF: 0 magnesium oxide 400 mg (241.3 mg magnesium) Tablet 400 mg PO QAM Qty: 30 RF: 0 thiamine HCl (vitamin B1) [Vitamin B-1] 100 mg Tablet 100 mg PO QAM Qty: 30 RF: 1 multivitamin Tablet 1 tab PO DAILY RF: 0 atorvastatin 80 mg Tablet 80 mg PO DAILY RF: 0 urea 20 % Cream 1 applic TOPICAL BID RF: 0 naloxone 0.4 mg/mL Solution 0 mg intranasal DIRECTED PRN (Reason: OVERSEDATION) RF: 0 cyanocobalamin (vitamin B-12) [Vitamin B-12] 1,000 mcg Tablet 1,000 mcg PO DAILY RF: 0 nitroglycerin [Nitrostat] 0.4 mg Tablet, Sublingual 0.4 mg sublingual DIRECTED PRN (Reason: Chest Pain) RF: 0 clotrimazole 1 % Cream 1 applic TOPICAL BID RF: 0 Ozempic 1 mg/dose (2 mg/1.5 mL) Pen Injector 0.5 mg SUBCUT WK RF: 0 albuterol sulfate 2.5 mg /3 mL (0.083 %) Solution For Nebulization 2.5 mg INHALATION QID PRN (Reason: Shortness Of Breath Or Wheezing) RF: 0 amlodipine [Norvasc] 5 mg Tablet 5 mg PO QAM Qty: 30 RF: 0 disulfiram 500 mg tablet 500 mg PO DAILY Qty: 14 RF: 0 lisinopril [Zestril] 40 mg tablet 40 mg PO QAM Qty: 30 RF: 0 Levemir FlexTouch U-100 Insuln 100 unit/mL (3 mL) insulin pen 45 unit subcut HS Qty: 15 RF: 0 Referrals Referrals: Charity Kasper MD [Primary Care Provider] - Discharge Problem: Alcohol intoxication Qualifiers: Complication of substance-induced condition: with unspecified complication Qualified Code(s): F10.929 - Alcohol use, unspecified with intoxication, unspecified
[2020-10-14] MEDS ORDERED: FUROSEMIDE 40 MG/4 ML VIAL IV STA (00:05)
[2020-10-14 00:08] LABS: Albumin Globulin Ratio 0.4 (0.9-2); Bilirubin,Total 0.7 mg/dl (0.2-1); Globulin 4.5 gm/dl (2.5-4.0); Thyroid Stimulating Hormone 2.56 uIu/ml (0.300-4.500); Total Protein 6.5 gm/dl (6.4-8.2); Troponin I 0.104 ng/ml (0-0.045)
[2020-10-14 00:30] LABS: Prothrombin Time 10.6 Seconds (9.0-12.0)
[2020-10-14] MEDS: MAGNESIUM SULFATE / D5W 1 GM/100 ML BAG IV SCH ×2 (00:30→01:44)
[2020-10-14] MEDS ORDERED: chlordiazePOXIDE ALCOHOL WITHDRAWL 50MG PO STA (01:53)
[2020-10-14 02:07] LABS: Appearance Urine Clear (Clear); Bacteria Urine Automated Negative (Negative); Bilirubin Urine Negative (Negative); Blood Urine 2+ (Negative); Color Urine Yellow; Glucose Urine UA Negative (Negative); Ketones Urine Negative (Negative); Leukocyte Esterase Urine Negative (Negative); Nitrite Urine Negative (Negative); Protein Urine 3+ (Negative); Specific Gravity Urine 1.011 (1.000-1.030); Urobilinogen Urine Negative (Negative)
[2020-10-14] MEDS ORDERED: chlordiazePOXIDE HCl 25 MG CAP PO STA (02:40)
--- NOTE | 2020-10-14 05:37 | History and Physical Report ---
DATE OF ADMISSION: 10/14/2020. CHIEF COMPLAINT: Lower extremity edema and alcoholism. HISTORY OF PRESENT ILLNESS: This is a 55-year-old male with past medical history significant for type 2 diabetes, hypertension, hyperlipidemia, chronic alcohol abuse, CAD status post stent, chronic back pain, obstructive sleep apnea, noncompliant with CPAP, history of tobacco abuse, neuropathy, chronic kidney disease stage III, emphysema, fatty liver, history of anemia, history of depression, generalized anxiety disorder, who presents with lower extremity swelling. The patient has history of lower extremity swelling in the past. He is on diuretics at home, but the patient says since last 2 weeks, the swelling is getting progressively worse. It is up to his thigh and is painful, that is the reason he came to the ER. The patient, last time he was here in July, when he was supposed to go to alcohol rehab, but the patient stated they could not find a bed and he did not go to rehab.Currently he has been drinking half a gallon of vodka every day. History of withdrawal seizures in the past. He also has biopsy of left arm lesion and showing well-differentiated invasive squamous cell carcinoma and there is a plan for Mohs procedure, the patient states in November. Currently, resting comfortably and hemodynamically stable. Denies any chest pain. Has chronic cough from his smoking and shortness of breath was because of his smoking. Mild headache, no neck pain. Hearing is not good. He has runny nose. Denies any fever or chills. No nausea, no abdominal pain. He says he is somewhat constipated and when his constipation is severe, he gets some blood in the stools. He is micturating fine. He says he has noticed some blood in the urine. He lives alone, ambulates okay. Appetite is okay. No difficulty swallowing. ALLERGIES: No known drug allergies. PAST MEDICAL HISTORY: As mentioned above. PAST SURGICAL HISTORY: Colonoscopy. MEDICATIONS: The patient is currently on albuterol 2 puffs nebulizer q.i.d. p.r.n., aspirin 81 mg p.o. daily, atorvastatin 80 mg p.o. daily, Suboxone 1 tablet sublingual b.i.d., clotrimazole topical b.i.d., vitamin B12 1000 mcg p.o. daily, folic acid 1 mg p.o. daily, Lasix 40 mg p.o. daily, gabapentin 300 mg p.o. b.i.d., insulin NovoLog as directed, Levemir 45 units subcutaneous at bedtime, lisinopril 40 mg p.o. daily, magnesium oxide 400 mg p.o. a.m., metoprolol succinate 50 mg p.o. a.m., multivitamin 1 tablet p.o. a.m., naloxone p.r.n., NicoDerm patch 21 mg transdermal q.a.m., Nitrostat 0.4 mg sublingual p.r.n., Ozempic 0.5 mg subcutaneous weekly, thiamine 100 mg p.o. daily, venlafaxine XR 150 mg p.o. a.m. FAMILY HISTORY: Significant for mother has hypertension and sleep apnea; father has diabetes, sister has diabetes. SOCIAL HISTORY: Lives alone. Smokes 1 pack a day for last 40 years, drinking alcohol half a gallon a day. No drug use. REVIEW OF SYSTEMS: As per HPI. Rest of the review of systems is negative. PHYSICAL EXAMINATION: GENERAL: The patient is morbidly obese, not in acute distress. VITAL SIGNS: Temperature 36.8, pulse 84, respiratory rate 18, blood pressure 140/117, oxygen 98% on room air. HEENT: Pupils equal, round and reactive to light. Oral moist mucosa moist. NECK: No JVD. No neck masses. CARDIOVASCULAR: S1 and S2 heard, regular rate and rhythm. No murmur, no gallop. RESPIRATORY SYSTEM: Normal AP diameter. No accessory muscle use. No wheezing, no crackles. ABDOMEN: Soft, bowel sounds present, nontender, no distention. CENTRAL NERVOUS SYSTEM: Cranial nerves II-XII grossly intact, nonfocal. EXTREMITIES: Bilateral lower extremity gross pedal edema present. Mild erythematous changes seen. Also he has a left arm skin lesion excision site, some mild drainage. LABORATORY DATA: WBC is 4.4, hemoglobin 11.4, hematocrit 33.8, platelets 222. PT 10.6, INR 1. Sodium 133, potassium 3.9, chloride 99, bicarb 26, BUN 20, creatinine 0.8, serum glucose 115. Lactate 1.8, calcium 8, magnesium 1.5, total bilirubin 0.7, AST 112, ALT 67, alkaline phosphatase 123. Troponin 0.1. BNP 3000. TSH is 2.5. Urinalysis +2 blood, +3 protein. Ethyl alcohol 121. SARS-CoV-2 PCR negative. IMAGING DATA: Chest x-ray, no acute findings. EKG: Normal sinus rhythm with rate of 86, prolonged QTc at 493, no significant change. ASSESSMENT AND PLAN: This 55-year-old male presents with lower extremity edema and alcoholism. 1. Lower extremity edema. The patient has a history of lower extremity edema in the past. His echo in 2019 was okay. The patient is not having evidence of kidney failure, could be from alcoholism and poor nutrition and albumin is only 2. His BNP is elevated at 3000. We will check a repeat echocardiogram. We will place him on IV Lasix 40 b.i.d., Nutrition consult. Follow the response. 2. Mild elevation in troponin. He has chronic elevation of troponin. We will follow the repeat labs. The patient is asymptomatic. EKG okay. We will follow the echocardiogram. 3. Hypomagnesemia, replace. 4. Alcoholism. We will give banana bag, place him on his home thiamine, folic acid and vitamin B12. This patient has history of alcohol withdrawal seizures in the past. We will place him on Librium Withdrawal protocol with IV Ativan p.r.n. and closely monitor in the [employer]. 5. Tobacco abuse. Nicotine patch. 6. Diabetes. Continue home Levemir. We will place him on insulin sliding scale. Monitor the blood sugars, follow HbA1c levels. 7. Neuropathy. The patient at home is on gabapentin, which will be continued. 8. Hypertension. Continue his lisinopril, Toprol-XL. Last admission amlodipine was started but not on epic list. Will monitor. We will place him on clonidine p.r.n. 9. History of CAD, status post stent. Continue his aspirin as well as statin, and beta arnold. 10. History of depression: Continue Effexor. 11. Chronic kidney disease, stage III. We will follow the labs. 12. Leukopenia and anemia, most likely from ongoing alcoholism. Follow stool for Hemoccult. 13.. Chronic pain, on Suboxone. 14. Obstructive sleep apnea, noncompliant with CPAP. Needs followup 15. Deep venous thrombosis prophylaxis. As platelets are okay, we will place him on heparin subQ. DISPOSITION: Closely monitor in the [employer] tele. PT/OT prior to OT prior to discharge. Social service to help with discharge planning. Job ID: [id number] REGAN
[2020-10-14] MEDS ORDERED: LORazepam 2 MG/4 ML VIAL ONE (05:50)
[2020-10-14] MEDS ORDERED: LORazepam 3 MG/6 ML VIAL IV PRN (06:18)
[2020-10-14] MEDS ORDERED: NITROGLYCERIN SL 0.4 MG/TAB TAB SL PRN ×2 (06:18)
[2020-10-14] MEDS ORDERED: ATIVAN IV ALCOHOL WITHDRAWL IV PRN (06:18)
[2020-10-14] MEDS ORDERED: cloNIDine HCL 0.1 MG TAB PO PRN (06:18)
[2020-10-14] MEDS ORDERED: ONDANSETRON INJ 2 MG/ML 2 ML VIAL IV PRN (06:18)
[2020-10-14] MEDS ORDERED: ALBUTEROL 0.083% NEBU SOLN 3 ML VIAL INH PRN (06:18)
[2020-10-14] MEDS ORDERED: LORazepam 2 MG/4 ML VIAL IV PRN (06:18)
[2020-10-14] MEDS ORDERED: POLYETHYLENE (MIRALAX) 17 GM PACK PO PRN (06:18)
[2020-10-14] MEDS ORDERED: GLUCAGON FOR INJ 1 MG VIAL IM PRN (07:00)
[2020-10-14] MEDS ORDERED: DEXTROSE 50% 50 ML SYRINGE IV PRN (07:00)
[2020-10-14] MEDS ORDERED: GLUCOSE 10 TABS/TUBE PO PRN (07:00)
[2020-10-14] MEDS ORDERED: GLUCOSE 40% GEL 15 GM TUBE PO PRN (07:00)
[2020-10-14] MEDS ORDERED: MULTI-VITAMIN INFUSION 10 ML, THIAMINE HCL 100 MG, FOLIC ACID 1 MG in SODIUM CHLORIDE 0... IV ONE (07:15)
[2020-10-14] MEDS: cefTRIAXone SODIUM 2,000 MG in DEXTROSE 5% 50 ML IV SCH (07:24)
[2020-10-14] MEDS: CYANOCOBALAMIN 500 MCG TABLET (VITAMIN B-12) PO SCH (07:28)
[2020-10-14] MEDS: HEPARIN SOD 5,000 UNIT/0.5 ML VIAL SQ SCH ×3 (07:29→21:06)
[2020-10-14] MEDS: CLOTRIMAZOLE 1% CR 15 GM TUBE TOP SCH ×2 (07:31→20:56)
[2020-10-14] MEDS: lisinopril 40 MG TAB PO SCH (07:31)
[2020-10-14] MEDS: ASPIRIN 81 MG ECTAB PO SCH (07:31)
[2020-10-14] MEDS: FOLIC ACID 1 MG TAB PO SCH (07:32)
[2020-10-14] MEDS: MAGNESIUM OXIDE 400 MG TAB PO SCH (07:32)
[2020-10-14] MEDS: METOPROLOL SUCC 50MG EXT REL TAB PO SCH (07:32)
[2020-10-14] MEDS: NICOTINE 21 MG/24 HR TDSY TD SCH (07:32)
[2020-10-14] MEDS: THIAMINE HCL 100 MG TAB PO SCH (07:32)
[2020-10-14] MEDS: GABAPENTIN 300 MG CAP PO SCH ×2 (07:33→20:56)
[2020-10-14] MEDS: ATORVASTATIN 40 MG TAB PO SCH (07:33)
[2020-10-14] MEDS: CEROVITE ADV FORMULA TAB PO SCH (07:33)
[2020-10-14] MEDS: FUROSEMIDE 40 MG in SYRINGE 0 ML IV SCH ×2 (07:33→18:08)
[2020-10-14] MEDS: VENLAFAXINE HCL XR 150 MG CAPXR PO SCH (07:33)
[2020-10-14] MEDS: chlordiazePOXIDE HCl 25 MG CAP PO SCH ×3 (07:37→21:05)
--- NOTE | 2020-10-14 07:43 | XRay Report ---
XR chest 1V portable CLINICAL HISTORY: leg edema COMPARISON STUDY: Chest radiograph July 24, 2020. Chest CT January 16, 2020. FINDINGS: Lung volumes are normal. Linear left lower lung opacity reflects atelectasis. There is no p neumothorax or pleural effusion. Cardiomegaly is unchanged. Mediastinal contours are normal. There is no evidence for pulmonary edema. Slight interstitial prominence is unchanged. IMPRESSION: No acute cardiopulmonary findings. No change in appearance of the chest. ACT 112: Negative or not required by law. Electronically signed by: Won Amos M.D. 10/14/2020 7:42 AM
[2020-10-14 07:57] LABS: Basophils # (auto) 0.01 K/uL (0-0.2); Basophils % (auto) 0.2 %; Eosinophils # (auto) 0.07 K/uL (0-0.5); Eosinophils % (auto) 1.7 %; Hematocrit (blood only) 35.7 % (42-52); Hemoglobin 11.9 g/dL (14.0-18.0); Lymphocytes # (auto) 1.25 K/uL (1.2-3.4); Lymphocytes % (auto) 30.6 %; Mean Corpuscular Hemoglobin 31.5 pg (25-34); Mean Corpuscular Hgb Conc 33.3 g/dL (32-36); Mean Corpuscular Volume 94.4 fL (80-100); Mean Platelet Volume 10.2 fL (7.4-10.4); Monocytes # (auto) 0.64 K/uL (0.11-0.59); Monocytes % (auto) 15.7 %; Neutrophils # (auto) 2.11 K/uL (1.4-6.5); Neutrophils % (auto) 51.8 %; Platelet Count 212 K/uL (130-400); RDW Coefficient of Variation 13.6 % (11.5-14.5); RDW Standard Deviation 46.9 fL (36.4-46.3); Red Blood Count 3.78 M/uL (4.7-6.1); White Blood Count 4.08 K/uL (4.8-10.8)
[2020-10-14] MEDS: BUPRENORPHINE/NALOXONE 8/2 MG TAB SL SCH ×2 (08:14→21:06)
[2020-10-14] MEDS: INSULIN ASPART 100 UNITS/ML 3 ML PEN SC SCH ×4 (08:19→22:55)
[2020-10-14 08:26] LABS: BUN Creatinine Ratio 24.7 (10-20); Calcium 8.2 mg/dl (8.5-10.1); Creatinine Clr Calc Pharmacy 135.2 ml/min; Est GFR (African American) 115.7 ml/min; Est GFR (Non-African American) 99.9 ml/min; Magnesium 1.7 mg/dl (1.8-2.4)
[2020-10-14 08:27] LABS: Estimated Average Glucose 192 mg/dl; Hemoglobin A1C 8.3 % (4.5-5.6)
--- NOTE | 2020-10-14 08:35 | Electrocardiogram Report ---
Test Reason : Blood Pressure : / mmHG Vent. Rate : 086 BPM Atrial Rate : 086 BPM P-R Int : 204 ms QRS Dur : 096 ms QT Int : 412 ms P-R-T Axes : 057 -06 048 degrees QTc Int : 493 ms Poor data quality, interpretation may be adversely affected Normal sinus rhythm Prolonged QT Abnormal ECG When compared with ECG of 29-FEB-2020 01:31, No significant change was found Confirmed by Randell Hancock [id number]) on 10/14/2020 8:35:35 AM Referred By: REFERRED SELF Confirmed By:Randell Hancock
[2020-10-14 08:37] LABS: Troponin I 0.086 ng/ml (0-0.045)
[2020-10-14] MEDS ORDERED: FUROSEMIDE 40 MG/4 ML VIAL IV SCH (09:00)
[2020-10-14] MEDS ORDERED: MULTIVITAMIN TAB PO SCH (09:00)
--- NOTE | 2020-10-14 09:44 | Ultrasound Report ---
BILATERAL LOWER EXTREMITY VENOUS DOPPLER CLINICAL HISTORY: edema. dvt COMPARISON STUDY: Bilateral lower extremity venous Doppler ultrasound February 29, 2020. TECHNIQUE: Sonography of the deep venous system of the bilateral lower extremities was performed. Co mpression and augmentation were evaluated. FINDINGS: The bilateral common femoral, superficial femoral and popliteal veins were compressible. A ugmentation was normal. Flow was shown within the deep calf vessels. IMPRESSION: No evidence of deep venous thrombus within the bilateral lower extremities. ACT 112: Negative or not required by law. Electronically signed by: Won Amos M.D. 10/14/2020 9:43 AM
[2020-10-14] MEDS: LORazepam 1 MG/2 ML VIAL IV PRN ×3 (10:02→18:08)
--- NOTE | 2020-10-14 17:06 | Hospitalist Progress Note ---
Date of Service October 14, 2020 Assessment & Plan (1) Alcohol intoxication: Plan: Patient is a 55 yr male presents with lower extremity edema and alcoholism. B/L Lower extremity edema H/O Chronic LE edema DD: Hypoalbuminemia, Diastolic CHF, Cellulitis, Lymphedema -ECHO pending -Venous Doppler:No evidence of deep venous thrombus within the bilateral lower extremities. Continue IV Lasix Monitor Volume status Dietitian consulted Consider cardiology evaluation if needed Empirically started on Rocephin for possible cellulitis Mild elevation in troponin H/O chronic elevation of troponin Denies chest pain ECHO pending EKG unchanged from prior Hypomagnesemia replace electrolytes as needed Alcoholism Continue Librium withdrawal protocol Continue thiamine, folic acid Tobacco abuse Nicotine patch. DM II HbA1c 8.3 Continue insulin therapy Monitor BGs Peripheral neuropathy Continue gabapentin Hypertensive Urgency Hypertension Continue lisinopril, metoprolol Clonidine PRN CAD S/P Stent Continue aspirin, statin, Metoprolol . Depression Continue Effexor CKD III Monitor renal function Chronic pain on Suboxone. Obstructive sleep apnea noncompliant with CPAP. DVT Px: Heparin SQ Code Status Full Code Admission and Anticipated Discharge Date Admission Date: October 14, 2020 Subjective Drowsy Patient is seen and examined at bedside But easily awake comfortable this morning States feeling very tired " I am detoxing" Also reports bilateral leg swelling, pain Denies chest pain, dyspnea, dizziness Review of Systems Review of Systems: All systems reviewed & are unremarkable except as noted in Subjective Physical Exam Physical Exam: Physical Exam: Vitals signs as noted above General Appearance:Moderately built and nourished, no apparent distress Head: normocephalic, Atraumatic Eyes: normal inspection, EOMI Neck: supple, Trachea midline Respiratory/Chest: Normal breath sounds, CTA, No accessory muscle use Cardiovascular: S1, S2, No murmur Abdomen/GI:Soft, Non tender, Bowel sounds present Extremities/Musculoskeletal:normal inspection, B/L LE edema, +Erythema Neurologic/Psych:AAOX3, grossly no focal neurological deficits Skin: normal color, warm Results & Data Results & Data ([facility]) Vital Signs (Past 12 Hours) Vital Signs Temp Pulse Pulse Resp BP Pulse Ox 10/14/20 16:41 90 10/14/20 15:52 37.0 C 87 20 130/86 90 10/14/20 13:57 36.5 C 88 16 150/87 H 94 10/14/20 11:55 37.2 C 80 16 175/102 H 93 10/14/20 11:12 36.7 C 81 18 172/104 H 90 10/14/20 09:57 36.7 C 81 16 165/98 H 93 10/14/20 09:00 92 H 10/14/20 06:19 36.8 C 88 20 174/113 H 92 10/14/20 05:55 88 16 183/135 H 94 Laboratory Results Short CBC 10/13/20 10/14/20 Range/Units 22:21 07:34 WBC 4.46 L 4.08 L (4.8-10.8) K/uL Hgb 11.4 L 11.9 L (14.0-18.0) g/dL Hct 33.8 L 35.7 L (42-52) % Plt Count 222 212 (130-400) K/uL BMP 10/13/20 10/14/20 22:21 07:34 Sodium 133 L 135 L Potassium 3.9 4.0 Chloride 99 100 Carbon Dioxide 26 28 BUN 20 H 20 H Creatinine 0.87 0.80 Glucose 115 H 94 Calcium 8.0 L 8.2 L Cardiac Enzymes 10/13/20 10/14/20 10/14/20 Range/Units 22:21 07:34 12:48 Troponin I 0.104 H* 0.086 H* 0.085 H* (0-0.045) ng/ml Liver Function 10/13/20 Range/Units 22:21 Total Bilirubin 0.7 (0.2-1) mg/dl AST 112 H (15-37) U/L ALT 67 (12-78) U/L Alkaline Phosphatase 123 H (45-117) U/L Albumin 2.0 L (3.4-5.0) gm/dl Urine 10/14/20 Range/Units Unknown Urine Color Yellow Urine Appearance Clear (Clear) Urine pH 5.0 (4.5-7.5) Ur Specific Henry 1.011 (1.000-1.030) Urine Protein 3+ H (Negative) Urine Glucose (UA) Negative (Negative) (1) Alcohol intoxication Complication of substance-induced condition: with unspecified complication Qualified Code(s): F10.929 - Alcohol use, unspecified with intoxication, unspecified
[2020-10-14] MEDS: INSULIN DETEMIR FLEXPEN/FLEX TOUCH 100 UNITS/ML 3ML SQ SCH (20:58)
[2020-10-15] MEDS: chlordiazePOXIDE HCl 25 MG CAP PO SCH ×3 (01:56→16:10)
[2020-10-15] MEDS: HEPARIN SOD 5,000 UNIT/0.5 ML VIAL SQ SCH ×3 (06:23→20:57)
[2020-10-15] MEDS: CARBOHYDRATES FOR HYPOGLYCEMIA PO PRN ×3 (08:00→17:00)
[2020-10-15] MEDS: INSULIN ASPART 100 UNITS/ML 3 ML PEN SC SCH ×4 (08:37→20:44)
[2020-10-15] MEDS: INSULIN DETEMIR FLEXPEN/FLEX TOUCH 100 UNITS/ML 3ML SQ SCH (08:39)
[2020-10-15] MEDS: CYANOCOBALAMIN 500 MCG TABLET (VITAMIN B-12) PO SCH (08:47)
[2020-10-15] MEDS: VENLAFAXINE HCL XR 150 MG CAPXR PO SCH (08:47)
[2020-10-15] MEDS: ASPIRIN 81 MG ECTAB PO SCH (08:47)
[2020-10-15] MEDS: METOPROLOL SUCC 50MG EXT REL TAB PO SCH (08:48)
[2020-10-15] MEDS: CEROVITE ADV FORMULA TAB PO SCH (08:48)
[2020-10-15] MEDS: FUROSEMIDE 40 MG in SYRINGE 0 ML IV SCH ×2 (08:48→16:10)
[2020-10-15] MEDS: MAGNESIUM OXIDE 400 MG TAB PO SCH (08:48)
[2020-10-15] MEDS: CLOTRIMAZOLE 1% CR 15 GM TUBE TOP SCH ×2 (08:48→20:56)
[2020-10-15] MEDS: THIAMINE HCL 100 MG TAB PO SCH (08:48)
[2020-10-15] MEDS: ATORVASTATIN 40 MG TAB PO SCH (08:48)
[2020-10-15] MEDS: FOLIC ACID 1 MG TAB PO SCH (08:48)
[2020-10-15] MEDS: lisinopril 40 MG TAB PO SCH (08:48)
[2020-10-15] MEDS: GABAPENTIN 300 MG CAP PO SCH ×2 (08:50→20:57)
[2020-10-15] MEDS: NICOTINE 21 MG/24 HR TDSY TD SCH (08:50)
[2020-10-15] MEDS: BUPRENORPHINE/NALOXONE 8/2 MG TAB SL SCH ×2 (08:59→20:56)
[2020-10-15] MEDS: cefTRIAXone SODIUM 2,000 MG in DEXTROSE 5% 50 ML IV SCH (08:59)
[2020-10-15 09:22] LABS: Hematocrit (blood only) 35.6 % (42-52); Hemoglobin 11.4 g/dL (14.0-18.0); Mean Corpuscular Hemoglobin 31.3 pg (25-34); Mean Corpuscular Volume 97.8 fL (80-100); Mean Platelet Volume 9.8 fL (7.4-10.4); Platelet Count 226 K/uL (130-400); RDW Coefficient of Variation 13.8 % (11.5-14.5); RDW Standard Deviation 49.2 fL (36.4-46.3); Red Blood Count 3.64 M/uL (4.7-6.1)
[2020-10-15] MEDS ORDERED: PHARMACY GLYCEMIC MGMT CONSULT PRN (09:36)
--- NOTE | 2020-10-15 09:58 | Pharmacy Report ---
Pharmacy Glycemic Short Note 2 - Date of Service October 15, 2020 - Glycemic Short BSG Results (Last 24 hours): 10/14/20 10/14/20 10/14/20 11:20 16:19 20:42 POC Glucose 119 H 145 H 197 H 10/15/20 10/15/20 10/15/20 07:52 07:53 08:33 POC Glucose 62 L* 60 L* 112 H OUTPATIENT ANTIDIABETIC REGIMEN: * Levemir 45 units SC HS * Novolog SSI and Ozempic * HbA1c: 8.3% (10/14/20) ASSESSMENT: * DK is a 55 year old obese male admitted on 10/14 due to increasing leg swelling/alcohol intoxication * Pertinent PMH includes tobacco/alcohol abuse, HTN, CAD, T2DM, and CKD * BSGs reasonably well-controlled yesterday, but patient did have episode of hypoglycemia this morning (62 mg/dL) * Given 45 units of Levemir (home dose) and 15 units of prandial/correctional bolus yesterday * Unfortunately, Levemir was already administered this morning prior to consult despite order being for HS * Will monitor closely today for hypoglycemia * pre-lunch BSG of 73 mg/dL -> will loosen carb coverage significantly to 20 for this meal PLAN FOR INPATIENT GLYCEMIC CONTROL: * Hold outpatient oral diabetes medications * Basal insulin * Levemir 45 units SC daily - given today prior to consult * Will reassess tomorrow AM * Bolus insulin * NovoLog per scale ACHS or Q6hrs while NPO * Goal Range: Low 110 mg/dL - High 140 mg/dL * Correction Factor: 35 mg/dL/unit * Nutritional / Prandial insulin per carb ratio of 1 unit per 11 grams CHO consumed PLAN FOR DISCHARGE: * HbA1c of 8.3% suggests poor outpatient glycemic control * Will follow inpatient insulin needs and make recommendations accordingly * Patient may benefit from fixed dose of Novolog with meals - dose TBD
[2020-10-15 10:06] LABS: BUN Creatinine Ratio 27.5 (10-20); Calcium 8.2 mg/dl (8.5-10.1); Est GFR (African American) 84.7 ml/min; Potassium 4.8 mmol/L (3.5-5.1)
[2020-10-15] MEDS: ACETAMINOPHEN 325 MG TAB PO PRN (12:37)
--- NOTE | 2020-10-15 17:13 | Hospitalist Progress Note ---
Date of Service October 15, 2020 Assessment & Plan (1) Alcohol intoxication: Plan: Patient is a 55 yr male presents with lower extremity edema and alcoholism. B/L Lower extremity edema H/O Chronic LE edema DD: Hypoalbuminemia, Diastolic CHF, Cellulitis, Lymphedema -ECHO: EF 55 to 60%. Moderate concentric LVH. Grade 1 diastolic dysfunction. -Venous Doppler:No evidence of deep venous thrombus within the bilateral lower extremities. Continue IV Lasix Monitor Volume status Dietitian consulted Consider cardiology evaluation if needed Continue Rocephin Day #2 And fluid restriction Mild elevation in troponin H/O chronic elevation of troponin Denies chest pain ECHO as above EKG unchanged from prior Hypomagnesemia replace electrolytes as needed Alcoholism Continue Librium withdrawal protocol Continue thiamine, folic acid Tobacco abuse Nicotine patch. DM II HbA1c 8.3 Continue insulin therapy Monitor BGs Peripheral neuropathy Continue gabapentin Hypertensive Urgency Hypertension Continue lisinopril, metoprolol Clonidine PRN CAD S/P Stent Continue aspirin, statin, Metoprolol . Depression Continue Effexor CKD III Monitor renal function Chronic pain on Suboxone. Obstructive sleep apnea noncompliant with CPAP. DVT Px: Heparin SQ Code Status Full Code Admission and Anticipated Discharge Date Admission Date: October 14, 2020 Subjective Patient is seen and examined at bedside No new complaints Continues to have leg edema, pain States feeling anxious Denies chest pain, dyspnea, dizziness Review of Systems Review of Systems: All systems reviewed & are unremarkable except as noted in Subjective Physical Exam Physical Exam: Physical Exam: Vitals signs as noted above General Appearance:Moderately built and nourished, no apparent distress Head: normocephalic, Atraumatic Eyes: normal inspection, EOMI Neck: supple, Trachea midline Respiratory/Chest: Normal breath sounds, CTA, No accessory muscle use Cardiovascular: S1, S2, No murmur Abdomen/GI:Soft, Non tender, Bowel sounds present Extremities/Musculoskeletal:normal inspection, B/L LE edema, +Erythema Neurologic/Psych:AAOX3, grossly no focal neurological deficits Skin: normal color, warm Results & Data Results & Data ([facility]) Vital Signs (Past 12 Hours) Vital Signs Temp Pulse Pulse Pulse Resp BP Pulse Ox 10/15/20 16:23 72 10/15/20 15:11 36.4 C L 71 16 149/90 H 94 10/15/20 11:16 36.6 C 70 20 150/84 H 92 10/15/20 07:00 72 10/15/20 06:44 36.5 C 72 20 146/84 H 93 Laboratory Results Short CBC 10/15/20 Range/Units 08:59 WBC 4.00 L (4.8-10.8) K/uL Hgb 11.4 L (14.0-18.0) g/dL Hct 35.6 L (42-52) % Plt Count 226 (130-400) K/uL BMP 10/15/20 08:59 Sodium 136 Potassium 4.8 D Chloride 101 Carbon Dioxide 32 BUN 31 H D Creatinine 1.12 D Glucose 120 H Calcium 8.2 L (1) Alcohol intoxication Complication of substance-induced condition: with unspecified complication Qualified Code(s): F10.929 - Alcohol use, unspecified with intoxication, unspecified
[2020-10-16] MEDS: chlordiazePOXIDE HCl 25 MG CAP PO SCH ×4 (00:56→22:52)
[2020-10-16] MEDS: ACETAMINOPHEN 325 MG TAB PO PRN (01:01)
[2020-10-16] MEDS ORDERED: INSULIN ASPART 100 UNITS/ML 3 ML PEN SC SCH (02:00)
[2020-10-16] MEDS: HEPARIN SOD 5,000 UNIT/0.5 ML VIAL SQ SCH ×3 (06:06→22:08)
[2020-10-16] MEDS ORDERED: INSULIN DETEMIR FLEXPEN/FLEX TOUCH 100 UNITS/ML 3ML SQ SCH ×2 (09:00→21:00)
[2020-10-16] MEDS: INSULIN ASPART 100 UNITS/ML 3 ML PEN SC SCH ×4 (09:01→22:25)
[2020-10-16] MEDS: FUROSEMIDE 40 MG in SYRINGE 0 ML IV SCH ×2 (09:05→17:16)
[2020-10-16] MEDS: CYANOCOBALAMIN 500 MCG TABLET (VITAMIN B-12) PO SCH (09:06)
[2020-10-16] MEDS: MAGNESIUM OXIDE 400 MG TAB PO SCH (09:06)
[2020-10-16] MEDS: ASPIRIN 81 MG ECTAB PO SCH (09:06)
[2020-10-16] MEDS: FOLIC ACID 1 MG TAB PO SCH (09:06)
[2020-10-16] MEDS: ATORVASTATIN 40 MG TAB PO SCH (09:06)
[2020-10-16] MEDS: VENLAFAXINE HCL XR 150 MG CAPXR PO SCH (09:06)
[2020-10-16] MEDS: NICOTINE 21 MG/24 HR TDSY TD SCH (09:06)
[2020-10-16] MEDS: lisinopril 40 MG TAB PO SCH (09:06)
[2020-10-16] MEDS: THIAMINE HCL 100 MG TAB PO SCH (09:06)
[2020-10-16] MEDS: GABAPENTIN 300 MG CAP PO SCH ×2 (09:07→22:04)
[2020-10-16] MEDS: METOPROLOL SUCC 50MG EXT REL TAB PO SCH (09:07)
[2020-10-16] MEDS: CEROVITE ADV FORMULA TAB PO SCH (09:07)
[2020-10-16] MEDS: CLOTRIMAZOLE 1% CR 15 GM TUBE TOP SCH ×2 (09:08→21:55)
[2020-10-16] MEDS: cefTRIAXone SODIUM 2,000 MG in DEXTROSE 5% 50 ML IV SCH (09:14)
[2020-10-16] MEDS: BUPRENORPHINE/NALOXONE 8/2 MG TAB SL SCH ×2 (09:14→22:53)
[2020-10-16 10:20] LABS: BUN Creatinine Ratio 31.8 (10-20); Calcium 8.6 mg/dl (8.5-10.1); Creatinine Clr Calc Pharmacy 85.6 ml/min; Est GFR (African American) 72.7 ml/min; Est GFR (Non-African American) 62.7 ml/min; Potassium 4.8 mmol/L (3.5-5.1)
--- NOTE | 2020-10-16 14:17 | Pharmacy Report ---
Pharmacy Glycemic Short Note 2 - Date of Service October 16, 2020 - Glycemic Short BSG Results (Last 24 hours): 10/15/20 10/15/20 10/15/20 16:34 16:35 16:58 Glucose POC Glucose 66 L* 64 L* 69 L* 10/15/20 10/15/20 10/16/20 17:19 20:19 02:12 Glucose POC Glucose 100 H 97 177 H 10/16/20 10/16/20 10/16/20 07:37 08:50 11:25 Glucose 283 H POC Glucose 229 H 82 OUTPATIENT ANTIDIABETIC REGIMEN: * Levemir 45 units SC HS * Novolog SSI and Ozempic * HbA1c: 8.3% (10/14/20) ASSESSMENT: 10/16: * As expected, BSGs trended on low side yesterday following full-basal dose x 2 - 12 hours apart * Levemir likely wore off by this morning resulting in elevated BSG of 229 mg/dL * Will attempt to split Levemir BID today (will utilize scale in interest of safety) * Lunchtime BSG of 82 mg/dL - will loosen Novolog parameters back to match yesterday 10/15: * DK is a 55 year old obese male admitted on 10/14 due to increasing leg swelling/alcohol intoxication * Pertinent PMH includes tobacco/alcohol abuse, HTN, CAD, T2DM, and CKD * BSGs reasonably well-controlled yesterday, but patient did have episode of hypoglycemia this morning (62 mg/dL) * Given 45 units of Levemir (home dose) and 15 units of prandial/correctional bolus yesterday * Unfortunately, Levemir was already administered this morning prior to consult despite order being for HS * Will monitor closely today for hypoglycemia * pre-lunch BSG of 73 mg/dL -> will loosen carb coverage significantly to 20 for this meal PLAN FOR INPATIENT GLYCEMIC CONTROL: * Hold outpatient oral diabetes medications * Basal insulin * Levemir 20 units SC daily * Levemir 10-20 units SC HS (see EHR for details) * Bolus insulin * NovoLog per scale ACHS or Q6hrs while NPO * Goal Range: Low 110 mg/dL - High 140 mg/dL * Correction Factor: 35 mg/dL/unit * Nutritional / Prandial insulin per carb ratio of 1 unit per 11 grams CHO consumed PLAN FOR DISCHARGE: * HbA1c of 8.3% suggests poor outpatient glycemic control * Will follow inpatient insulin needs and make recommendations accordingly * Patient may benefit from fixed dose of Novolog with meals - dose TBD
--- NOTE | 2020-10-16 18:57 | Hospitalist Progress Note ---
Date of Service October 16, 2020 Assessment & Plan (1) Alcohol intoxication: Plan: Patient is a 55 yr male presents with lower extremity edema and alcoholism. B/L Lower extremity edema H/O Chronic LE edema DD: Hypoalbuminemia, Diastolic CHF, Cellulitis, Lymphedema Left arm wound -ECHO: EF 55 to 60%. Moderate concentric LVH. Grade 1 diastolic dysfunction. -Venous Doppler:No evidence of deep venous thrombus within the bilateral lower extremities. -Wound Cx:MSSA Continue IV Lasix Monitor Volume status Dietitian consulted Consider cardiology evaluation if needed Continue Rocephin Day #3 Continue fluid restriction Leg edema slowly improving Mild elevation in troponin H/O chronic elevation of troponin Denies chest pain ECHO as above EKG unchanged from prior Hypomagnesemia replace electrolytes as needed Alcoholism Continue Librium withdrawal protocol Continue thiamine, folic acid AWSS score:3 Interested in Rehab placement Tobacco abuse Nicotine patch. DM II HbA1c 8.3 Continue insulin therapy Monitor BGs Peripheral neuropathy Continue gabapentin Hypertensive Urgency Hypertension Continue lisinopril, metoprolol Clonidine PRN CAD S/P Stent Continue aspirin, statin, Metoprolol . Depression Continue Effexor CKD III Monitor renal function Chronic pain on Suboxone. Obstructive sleep apnea noncompliant with CPAP. DVT Px: Heparin SQ Code Status Full Code Admission and Anticipated Discharge Date Admission Date: October 14, 2020 Subjective Patient is seen and examined at bedside Leg edema slowly improving Reports having generalized pain No significant withdrawal symptoms today Denies chest pain, dyspnea, dizziness Review of Systems Review of Systems: All systems reviewed & are unremarkable except as noted in Subjective Physical Exam Physical Exam: Physical Exam: Vitals signs as noted above General Appearance:Moderately built and nourished, no apparent distress Head: normocephalic, Atraumatic Eyes: normal inspection, EOMI Neck: supple, Trachea midline Respiratory/Chest: Normal breath sounds, CTA, No accessory muscle use Cardiovascular: S1, S2, No murmur Abdomen/GI:Soft, Non tender, Bowel sounds present Extremities/Musculoskeletal:normal inspection, B/L LE edema, +Erythema, LUE wound Neurologic/Psych:AAOX3, grossly no focal neurological deficits Skin: normal color, warm Results & Data Results & Data ([facility]) Vital Signs (Past 12 Hours) Vital Signs Temp Pulse Pulse Resp BP Pulse Ox 10/16/20 18:31 37.1 C 67 16 162/89 H 90 10/16/20 15:17 36.7 C 66 20 156/90 H 90 10/16/20 14:20 68 10/16/20 07:17 71 10/16/20 06:57 36.5 C 74 20 161/92 H 90 Laboratory Results BMP 10/16/20 08:50 Sodium 135 L Potassium 4.8 Chloride 101 Carbon Dioxide 31 BUN 40 H Creatinine 1.27 Glucose 283 H Calcium 8.6 (1) Alcohol intoxication Complication of substance-induced condition: with unspecified complication Qualified Code(s): F10.929 - Alcohol use, unspecified with intoxication, unspecified
[2020-10-17] MEDS ORDERED: amLODIPine BESYLATE 5 MG TAB PO ONE (00:38)
--- NOTE | 2020-10-17 00:39 | Communication Note ---
Date of Service: October 17, 2020 Made aware by RN of uncontrolled blood pressure. SBP 140-180s the last 48 hours. Cardiac rate 60s Patient currently asymptomatic as per RN. AP Uncontrolled hypertension Alcohol withdrawal Add amlodipine to regimen. Will relay to AM provider.
[2020-10-17] MEDS: HEPARIN SOD 5,000 UNIT/0.5 ML VIAL SQ SCH ×3 (05:59→21:03)
[2020-10-17 08:03] LABS: BUN Creatinine Ratio 28.9 (10-20); Calcium 9.2 mg/dl (8.5-10.1); Creatinine Clr Calc Pharmacy 83.5 ml/min; Est GFR (African American) 70.7 ml/min; Potassium 5.4 mmol/L (3.5-5.1)
[2020-10-17] MEDS ORDERED: INSULIN DETEMIR FLEXPEN/FLEX TOUCH 100 UNITS/ML 3ML SQ SCH (09:00)
--- NOTE | 2020-10-17 09:03 | Pharmacy Report ---
Pharmacy Glycemic Short Note 2 - Date of Service October 17, 2020 - Glycemic Short BSG Results (Last 24 hours): 10/16/20 10/16/20 10/16/20 08:50 11:25 16:23 Glucose 283 H POC Glucose 82 125 H 10/16/20 10/17/20 10/17/20 20:19 06:59 07:27 Glucose 242 H POC Glucose 186 H 226 H OUTPATIENT ANTIDIABETIC REGIMEN: * Levemir 45 units SC HS * Novolog SSI and Ozempic * HbA1c: 8.3% (10/14/20) ASSESSMENT: 10/17/20 * Patient's BSGs yesterday were [phone] mg/dL. Fasting today was 226 mg/dL. * Patient received 20 units of lantus and 19 units of bolus insulin (39 units total). * Fasting elevated due to no Lantus given last night (not per scale). Give full dose this morning. Adjust tomorrow based upon trends. * Patient appears to be sensitive to CF. Leave looser CF. Tighten CR as patient is carbohydrate sensitive. 10/16: * As expected, BSGs trended on low side yesterday following full-basal dose x 2 - 12 hours apart * Levemir likely wore off by this morning resulting in elevated BSG of 229 mg/dL * Will attempt to split Levemir BID today (will utilize scale in interest of safety) * Lunchtime BSG of 82 mg/dL - will loosen Novolog parameters back to match yesterday 10/15: * DK is a 55 year old obese male admitted on 10/14 due to increasing leg swelling/alcohol intoxication * Pertinent PMH includes tobacco/alcohol abuse, HTN, CAD, T2DM, and CKD * BSGs reasonably well-controlled yesterday, but patient did have episode of hypoglycemia this morning (62 mg/dL) * Given 45 units of Levemir (home dose) and 15 units of prandial/correctional bolus yesterday * Unfortunately, Levemir was already administered this morning prior to consult despite order being for HS * Will monitor closely today for hypoglycemia * pre-lunch BSG of 73 mg/dL -> will loosen carb coverage significantly to 20 for this meal PLAN FOR INPATIENT GLYCEMIC CONTROL: * Hold outpatient oral diabetes medications * Basal insulin * Levemir 45 units SC x 1 then reassess * Bolus insulin * NovoLog per scale ACHS or Q6hrs while NPO * Goal Range: Low 110 mg/dL - High 140 mg/dL * Correction Factor: 35 mg/dL/unit * Nutritional / Prandial insulin per carb ratio of 1 unit per 8 grams CHO consumed PLAN FOR DISCHARGE: * HbA1c of 8.3% suggests poor outpatient glycemic control * Will follow inpatient insulin needs and make recommendations accordingly * Patient may benefit from fixed dose of Novolog with meals - dose TBD
[2020-10-17] MEDS: ATORVASTATIN 40 MG TAB PO SCH (09:24)
[2020-10-17] MEDS: THIAMINE HCL 100 MG TAB PO SCH (09:24)
[2020-10-17] MEDS: CEROVITE ADV FORMULA TAB PO SCH (09:24)
[2020-10-17] MEDS: GABAPENTIN 300 MG CAP PO SCH ×2 (09:24→21:02)
[2020-10-17] MEDS: NICOTINE 21 MG/24 HR TDSY TD SCH (09:24)
[2020-10-17] MEDS: ASPIRIN 81 MG ECTAB PO SCH (09:24)
[2020-10-17] MEDS: MAGNESIUM OXIDE 400 MG TAB PO SCH (09:25)
[2020-10-17] MEDS: CYANOCOBALAMIN 500 MCG TABLET (VITAMIN B-12) PO SCH (09:25)
[2020-10-17] MEDS: FOLIC ACID 1 MG TAB PO SCH (09:25)
[2020-10-17] MEDS: FUROSEMIDE 40 MG in SYRINGE 0 ML IV SCH ×2 (09:25→17:09)
[2020-10-17] MEDS: VENLAFAXINE HCL XR 150 MG CAPXR PO SCH (09:25)
[2020-10-17] MEDS: METOPROLOL SUCC 50MG EXT REL TAB PO SCH (09:25)
[2020-10-17] MEDS: INSULIN DETEMIR FLEXPEN/FLEX TOUCH 100 UNITS/ML 3ML SQ SCH (09:26)
[2020-10-17] MEDS: CLOTRIMAZOLE 1% CR 15 GM TUBE TOP SCH ×2 (09:26→21:01)
[2020-10-17] MEDS: cefTRIAXone SODIUM 2,000 MG in DEXTROSE 5% 50 ML IV SCH (09:31)
[2020-10-17] MEDS: BUPRENORPHINE/NALOXONE 8/2 MG TAB SL SCH ×2 (09:31→21:25)
[2020-10-17] MEDS: INSULIN ASPART 100 UNITS/ML 3 ML PEN SC SCH ×5 (09:32→21:13)
[2020-10-17 14:27] LABS: BUN Creatinine Ratio 29.1 (10-20); Calcium 9.6 mg/dl (8.5-10.1); Creatinine Clr Calc Pharmacy 86.8 ml/min; Est GFR (African American) 74.1 ml/min; Potassium 5.5 mmol/L (3.5-5.1)
--- NOTE | 2020-10-17 17:23 | Hospitalist Progress Note ---
Date of Service October 17, 2020 Assessment & Plan (1) Alcohol intoxication: Plan: Patient is a 55 yr male presents with lower extremity edema and alcoholism. B/L Lower extremity edema H/O Chronic LE edema DD: Hypoalbuminemia, Diastolic CHF, Cellulitis, Lymphedema Left arm wound -ECHO: EF 55 to 60%. Moderate concentric LVH. Grade 1 diastolic dysfunction. -Venous Doppler:No evidence of deep venous thrombus within the bilateral lower extremities. -Wound Cx:MSSA Continue IV Lasix Monitor Volume status Dietitian consulted Continue Rocephin Day #4 Continue fluid restriction Leg edema slowly improving Transition to p.o. diuretics as able Advised to follow-up with cardiology as outpatient Mild elevation in troponin H/O chronic elevation of troponin Denies chest pain ECHO as above EKG unchanged from prior Hypomagnesemia replace electrolytes as needed Alcoholism Continue thiamine, folic acid Interested in Rehab placement Will complete Librium protocol today Tobacco abuse Nicotine patch. DM II HbA1c 8.3 Continue insulin therapy Monitor BGs Peripheral neuropathy Continue gabapentin Hypertensive Urgency Hypertension Continue lisinopril, metoprolol Clonidine PRN CAD S/P Stent Continue aspirin, statin, Metoprolol . Depression Continue Effexor CKD III Monitor renal function Chronic pain on Suboxone. Obstructive sleep apnea noncompliant with CPAP. DVT Px: Heparin SQ Code Status Full Code Disposition Plan to discharge to rehab facility as able Case management to help with discharge planning Admission and Anticipated Discharge Date Admission Date: October 14, 2020 Subjective Patient is seen and examined at bedside Leg erythema much improved Still feels very wobbly, unstable Denies any significant pain Denies chest pain, dyspnea, dizziness Review of Systems Review of Systems: All systems reviewed & are unremarkable except as noted in Subjective Physical Exam Physical Exam: Physical Exam: Vitals signs as noted above General Appearance:Moderately built and nourished, no apparent distress Head: normocephalic, Atraumatic Eyes: normal inspection, EOMI Neck: supple, Trachea midline Respiratory/Chest: Normal breath sounds, CTA, No accessory muscle use Cardiovascular: S1, S2, No murmur Abdomen/GI:Soft, Non tender, Bowel sounds present Extremities/Musculoskeletal:normal inspection, B/L LE edema, +Erythema, LUE wound Neurologic/Psych:AAOX3, grossly no focal neurological deficits Skin: normal color, warm Results & Data Results & Data ([facility]) Vital Signs (Past 12 Hours) Vital Signs Temp Pulse Pulse Resp BP Pulse Ox 10/17/20 15:06 36.3 C L 61 18 151/91 H 90 10/17/20 11:19 36.6 C 64 19 151/96 H 90 10/17/20 08:00 72 10/17/20 07:33 36.7 C 66 18 171/97 H 93 Laboratory Results BMP 10/17/20 10/17/20 06:59 13:51 Sodium 136 136 Potassium 5.4 H 5.5 H Chloride 101 98 Carbon Dioxide 33 H 37 H BUN 38 H 36 H Creatinine 1.30 1.25 Glucose 242 H 172 H Calcium 9.2 9.6 (1) Alcohol intoxication Complication of substance-induced condition: with unspecified complication Qualified Code(s): F10.929 - Alcohol use, unspecified with intoxication, unspecified
[2020-10-17] MEDS ORDERED: SODIUM POLYSTYRENE SULFONATE 15G/60ML SUSP PO ONE (17:30)
[2020-10-17] MEDS ORDERED: amLODIPine BESYLATE 5 MG TAB PO SCH (21:00)
[2020-10-17] MEDS: cloNIDine HCL 0.1 MG TAB PO PRN (22:59)
[2020-10-18] MEDS ORDERED: amLODIPine BESYLATE 5 MG TAB PO ONE (04:36)
[2020-10-18] MEDS: METOPROLOL SUCC 25MG EXT REL TAB PO SCH (04:50)
[2020-10-18] MEDS: HEPARIN SOD 5,000 UNIT/0.5 ML VIAL SQ SCH ×3 (04:57→22:30)
[2020-10-18] MEDS: cloNIDine HCL 0.1 MG TAB PO PRN (07:44)
[2020-10-18] MEDS: LORazepam 1 MG/2 ML VIAL IV PRN (07:45)
[2020-10-18] MEDS: GABAPENTIN 300 MG CAP PO SCH ×2 (08:37→20:16)
[2020-10-18] MEDS: CEROVITE ADV FORMULA TAB PO SCH (08:37)
[2020-10-18] MEDS: FOLIC ACID 1 MG TAB PO SCH (08:37)
[2020-10-18] MEDS: VENLAFAXINE HCL XR 150 MG CAPXR PO SCH (08:37)
[2020-10-18] MEDS: ATORVASTATIN 40 MG TAB PO SCH (08:37)
[2020-10-18] MEDS: ASPIRIN 81 MG ECTAB PO SCH (08:37)
[2020-10-18] MEDS: CYANOCOBALAMIN 500 MCG TABLET (VITAMIN B-12) PO SCH (08:38)
[2020-10-18] MEDS: MAGNESIUM OXIDE 400 MG TAB PO SCH (08:38)
[2020-10-18] MEDS: FUROSEMIDE 40 MG in SYRINGE 0 ML IV SCH ×2 (08:38→16:50)
[2020-10-18] MEDS: CLOTRIMAZOLE 1% CR 15 GM TUBE TOP SCH ×2 (08:38→20:15)
[2020-10-18] MEDS: THIAMINE HCL 100 MG TAB PO SCH (08:38)
[2020-10-18] MEDS: NICOTINE 21 MG/24 HR TDSY TD SCH (08:39)
[2020-10-18] MEDS: INSULIN DETEMIR FLEXPEN/FLEX TOUCH 100 UNITS/ML 3ML SQ SCH (08:40)
[2020-10-18] MEDS: BUPRENORPHINE/NALOXONE 8/2 MG TAB SL SCH ×2 (08:45→22:30)
[2020-10-18] MEDS: INSULIN ASPART 100 UNITS/ML 3 ML PEN SC SCH ×4 (08:53→22:28)
[2020-10-18] MEDS: cefTRIAXone SODIUM 2,000 MG in DEXTROSE 5% 50 ML IV SCH (08:58)
[2020-10-18 09:52] LABS: Hematocrit (blood only) 37.1 % (42-52); Mean Corpuscular Hemoglobin 31.4 pg (25-34); Mean Corpuscular Hgb Conc 32.3 g/dL (32-36); Mean Corpuscular Volume 97.1 fL (80-100); Mean Platelet Volume 9.9 fL (7.4-10.4); Platelet Count 245 K/uL (130-400); RDW Coefficient of Variation 13.4 % (11.5-14.5); RDW Standard Deviation 47.7 fL (36.4-46.3); Red Blood Count 3.82 M/uL (4.7-6.1); White Blood Count 3.86 K/uL (4.8-10.8)
[2020-10-18 10:21] LABS: BUN Creatinine Ratio 28.7 (10-20); Calcium 9.1 mg/dl (8.5-10.1); Est GFR (African American) 72.7 ml/min; Est GFR (Non-African American) 62.7 ml/min; Magnesium 1.7 mg/dl (1.8-2.4); Potassium 5.1 mmol/L (3.5-5.1)
--- NOTE | 2020-10-18 16:26 | Hospitalist Progress Note ---
Date of Service October 18, 2020 Assessment & Plan (1) Alcohol intoxication: Plan: Patient is a 55 yr male presents with lower extremity edema and alcoholism. B/L Lower extremity edema H/O Chronic LE edema DD: Hypoalbuminemia, Diastolic CHF, Cellulitis, Lymphedema Left arm wound -ECHO: EF 55 to 60%. Moderate concentric LVH. Grade 1 diastolic dysfunction. -Venous Doppler:No evidence of deep venous thrombus within the bilateral lower extremities. -Wound Cx:MSSA Continue IV Lasix Monitor Volume status Dietitian consulted Continue Rocephin Day #5>> Transition to PO Abx Continue fluid restriction Leg edema slowly improving Transition to p.o. diuretics as able Advised to follow-up with cardiology as outpatient Continue IV diuresis for now Mild elevation in troponin H/O chronic elevation of troponin Denies chest pain ECHO as above EKG unchanged from prior Hypomagnesemia replace electrolytes as needed Alcoholism Continue thiamine, folic acid Interested in Rehab placement Completed Librium protocol Hold Ativan for Excess sedation Tobacco abuse Nicotine patch. DM II HbA1c 8.3 Continue insulin therapy Monitor BGs Peripheral neuropathy Continue gabapentin Hyperkalemia Held Lisinopril Low potassium diet Monitor Hypertensive Urgency Hypertension BP Variable Held lisinopril due to Hyperkalemia Continue metoprolol Added Amlodipine Clonidine PRN CAD S/P Stent Continue aspirin, statin, Metoprolol Depression Continue Effexor CKD III Monitor renal function Chronic pain on Suboxone. Obstructive sleep apnea noncompliant with CPAP. DVT Px: Heparin SQ Code Status Full Code Disposition Plan to discharge to rehab facility as able Case management to help with discharge planning Admission and Anticipated Discharge Date Admission Date: October 14, 2020 Subjective Patient is seen and examined at bedside States feeling tired Still has balance issues Leg edema improving Denies chest pain, dyspnea, dizziness Review of Systems Review of Systems: All systems reviewed & are unremarkable except as noted in Subjective Physical Exam Physical Exam: Physical Exam: Vitals signs as noted above General Appearance:Moderately built and nourished, no apparent distress Head: normocephalic, Atraumatic Eyes: normal inspection, EOMI Neck: supple, Trachea midline Respiratory/Chest: Normal breath sounds, CTA, No accessory muscle use Cardiovascular: S1, S2, No murmur Abdomen/GI:Soft, Non tender, Bowel sounds present Extremities/Musculoskeletal:normal inspection, B/L LE edema, +Erythema, LUE wound Neurologic/Psych:AAOX3, grossly no focal neurological deficits Skin: normal color, warm Results & Data Results & Data ([facility]) Vital Signs (Past 12 Hours) Vital Signs Temp Pulse Pulse Resp BP BP Pulse Ox 10/18/20 14:51 36.5 C 66 18 97/63 L 90 10/18/20 11:46 36.6 C 86 18 132/83 96 10/18/20 09:47 62 10/18/20 07:54 36.5 C 61 19 192/119 H 176/112 H 95 Laboratory Results Short CBC 10/18/20 Range/Units 09:34 WBC 3.86 L (4.8-10.8) K/uL Hgb 12.0 L (14.0-18.0) g/dL Hct 37.1 L (42-52) % Plt Count 245 (130-400) K/uL BMP 10/18/20 09:34 Sodium 136 Potassium 5.1 Chloride 98 Carbon Dioxide 35 H BUN 36 H Creatinine 1.27 Glucose 233 H Calcium 9.1 (1) Alcohol intoxication Complication of substance-induced condition: with unspecified complication Qualified Code(s): F10.929 - Alcohol use, unspecified with intoxication, unspecified
[2020-10-18] MEDS: CEFDINIR 300 MG CAP PO SCH (20:14)
[2020-10-18] MEDS: amLODIPine BESYLATE 5 MG TAB PO SCH (20:14)
[2020-10-18] MEDS ORDERED: amLODIPine BESYLATE 5 MG TAB PO SCH (21:00)
[2020-10-19] MEDS: ACETAMINOPHEN 325 MG TAB PO PRN (04:50)
[2020-10-19] MEDS: HEPARIN SOD 5,000 UNIT/0.5 ML VIAL SQ SCH ×3 (06:16→21:12)
[2020-10-19 08:17] LABS: BUN Creatinine Ratio 25.2 (10-20); Calcium 9.2 mg/dl (8.5-10.1); Creatinine Clr Calc Pharmacy 60.5 ml/min; Est GFR (African American) 50.4 ml/min; Est GFR (Non-African American) 43.5 ml/min; Potassium 4.8 mmol/L (3.5-5.1)
[2020-10-19] MEDS: INSULIN ASPART 100 UNITS/ML 3 ML PEN SC SCH ×4 (08:23→20:25)
[2020-10-19] MEDS: INSULIN DETEMIR FLEXPEN/FLEX TOUCH 100 UNITS/ML 3ML SQ SCH (08:26)
[2020-10-19] MEDS: ASPIRIN 81 MG ECTAB PO SCH (08:28)
[2020-10-19] MEDS: BUPRENORPHINE/NALOXONE 8/2 MG TAB SL SCH ×2 (08:28→21:12)
[2020-10-19] MEDS: GABAPENTIN 300 MG CAP PO SCH ×2 (08:28→21:12)
[2020-10-19] MEDS: CEROVITE ADV FORMULA TAB PO SCH (08:29)
[2020-10-19] MEDS: THIAMINE HCL 100 MG TAB PO SCH (08:29)
[2020-10-19] MEDS: CEFDINIR 300 MG CAP PO SCH ×2 (08:29→21:12)
[2020-10-19] MEDS: METOPROLOL SUCC 25MG EXT REL TAB PO SCH (08:29)
[2020-10-19] MEDS: CYANOCOBALAMIN 500 MCG TABLET (VITAMIN B-12) PO SCH (08:29)
[2020-10-19] MEDS: FOLIC ACID 1 MG TAB PO SCH (08:29)
[2020-10-19] MEDS: MAGNESIUM OXIDE 400 MG TAB PO SCH (08:29)
[2020-10-19] MEDS: ATORVASTATIN 40 MG TAB PO SCH (08:29)
[2020-10-19] MEDS: NICOTINE 21 MG/24 HR TDSY TD SCH (08:30)
[2020-10-19] MEDS: VENLAFAXINE HCL XR 150 MG CAPXR PO SCH (08:30)
[2020-10-19] MEDS: FUROSEMIDE 40 MG in SYRINGE 0 ML IV SCH (08:30)
[2020-10-19] MEDS: CLOTRIMAZOLE 1% CR 15 GM TUBE TOP SCH ×2 (08:31→21:13)
[2020-10-19] MEDS ORDERED: LORazepam 1 MG TAB PO PRN (17:00)
--- NOTE | 2020-10-19 17:01 | Hospitalist Progress Note ---
Date of Service October 19, 2020 Assessment & Plan (1) Alcohol intoxication: Plan: Patient is a 55 yr male presents with lower extremity edema and alcoholism. B/L Lower extremity edema H/O Chronic LE edema DD: Hypoalbuminemia, Diastolic CHF, Cellulitis, Lymphedema Left arm wound -ECHO: EF 55 to 60%. Moderate concentric LVH. Grade 1 diastolic dysfunction. -Venous Doppler:No evidence of deep venous thrombus within the bilateral lower extremities. -Wound Cx:MSSA Continue IV Lasix Monitor Volume status Dietitian consulted Continue Rocephin Day #5>> Transitioned to PO Abx Continue fluid restriction Leg edema better Transition to p.o. diuretics as able Advised to follow-up with cardiology as outpatient Hold diuresis due to ONDINA Acute Kidney Injury Cr:1.7 Hold diuresis Avoid nephrotoxic agents as able Monitor renal function Mild elevation in troponin H/O chronic elevation of troponin Denies chest pain ECHO as above EKG unchanged from prior Hypomagnesemia replace electrolytes as needed Alcoholism Continue thiamine, folic acid Completed Librium protocol Hold Ativan for Excess sedation Needs rehab placement Tobacco abuse Nicotine patch. DM II HbA1c 8.3 Continue insulin therapy Monitor BGs Peripheral neuropathy Continue gabapentin Hyperkalemia Held Lisinopril Low potassium diet Monitor Hypertensive Urgency Hypertension BP Variable Held lisinopril due to Hyperkalemia Continue metoprolol Added Amlodipine Clonidine PRN CAD S/P Stent Continue aspirin, statin, Metoprolol Depression Continue Effexor CKD III Monitor renal function Chronic pain on Suboxone. Obstructive sleep apnea noncompliant with CPAP. DVT Px: Heparin SQ Code Status Full Code Disposition Plan to discharge to rehab facility Admission and Anticipated Discharge Date Admission Date: October 14, 2020 Subjective Patient is seen and examined at bedside No significant change from yesterday symptomatically Continues to feel tired, has balance issues Renal function worsening Denies chest pain, dyspnea, dizziness Review of Systems Review of Systems: All systems reviewed & are unremarkable except as noted in Subjective Physical Exam Physical Exam: Physical Exam: Vitals signs as noted above General Appearance:Moderately built and nourished, no apparent distress Head: normocephalic, Atraumatic Eyes: normal inspection, EOMI Neck: supple, Trachea midline Respiratory/Chest: Normal breath sounds, CTA, No accessory muscle use Cardiovascular: S1, S2, No murmur Abdomen/GI:Soft, Non tender, Bowel sounds present Extremities/Musculoskeletal:normal inspection, B/L LE edema, +Erythema, LUE wound Neurologic/Psych:AAOX3, grossly no focal neurological deficits Skin: normal color, warm Results & Data Results & Data ([facility]) Vital Signs (Past 12 Hours) Vital Signs Temp Pulse Pulse Resp BP Pulse Ox 10/19/20 15:51 36.4 C L 67 20 124/85 98 10/19/20 14:42 66 10/19/20 11:46 36.3 C L 55 L 20 180/92 H 94 10/19/20 07:42 36.3 C L 60 20 178/97 H 92 10/19/20 07:00 61 Laboratory Results BMP 10/19/20 07:35 Sodium 136 Potassium 4.8 Chloride 99 Carbon Dioxide 34 H BUN 43 H Creatinine 1.72 H D Glucose 157 H Calcium 9.2 (1) Alcohol intoxication Complication of substance-induced condition: with unspecified complication Qualified Code(s): F10.929 - Alcohol use, unspecified with intoxication, unspecified
[2020-10-19] MEDS: amLODIPine BESYLATE 5 MG TAB PO SCH (21:14)
[2020-10-20] MEDS: HEPARIN SOD 5,000 UNIT/0.5 ML VIAL SQ SCH ×3 (06:09→20:42)
[2020-10-20] MEDS: INSULIN ASPART 100 UNITS/ML 3 ML PEN SC SCH ×4 (08:07→20:37)
[2020-10-20] MEDS: INSULIN DETEMIR FLEXPEN/FLEX TOUCH 100 UNITS/ML 3ML SQ SCH (08:08)
[2020-10-20] MEDS: CEFDINIR 300 MG CAP PO SCH ×2 (08:35→20:41)
[2020-10-20] MEDS: GABAPENTIN 300 MG CAP PO SCH ×2 (08:36→20:41)
[2020-10-20] MEDS: ATORVASTATIN 40 MG TAB PO SCH (08:36)
[2020-10-20] MEDS: NICOTINE 21 MG/24 HR TDSY TD SCH (08:36)
[2020-10-20] MEDS: METOPROLOL SUCC 25MG EXT REL TAB PO SCH (08:37)
[2020-10-20] MEDS: ASPIRIN 81 MG ECTAB PO SCH (08:37)
[2020-10-20] MEDS: MAGNESIUM OXIDE 400 MG TAB PO SCH (08:37)
[2020-10-20] MEDS: VENLAFAXINE HCL XR 150 MG CAPXR PO SCH (08:37)
[2020-10-20] MEDS: THIAMINE HCL 100 MG TAB PO SCH (08:37)
[2020-10-20] MEDS: FOLIC ACID 1 MG TAB PO SCH (08:37)
[2020-10-20] MEDS: CYANOCOBALAMIN 500 MCG TABLET (VITAMIN B-12) PO SCH (08:37)
[2020-10-20] MEDS: CLOTRIMAZOLE 1% CR 15 GM TUBE TOP SCH ×2 (08:37→20:41)
[2020-10-20] MEDS: CEROVITE ADV FORMULA TAB PO SCH (08:37)
[2020-10-20] MEDS: BUPRENORPHINE/NALOXONE 8/2 MG TAB SL SCH ×2 (08:50→20:40)
--- NOTE | 2020-10-20 09:25 | Pharmacy Report ---
Pharmacy Glycemic Short Note 2 - Date of Service October 20, 2020 - Glycemic Short BSG Results (Last 24 hours): 10/19/20 10/19/20 10/19/20 11:50 16:46 20:17 POC Glucose 157 H 139 H 123 H 10/20/20 07:25 POC Glucose 232 H OUTPATIENT ANTIDIABETIC REGIMEN: * Levemir 45 units SC HS * Novolog SSI and Ozempic * HbA1c: 8.3% (10/14/20) ASSESSMENT: 10/20/20 * Pt has received 50 units of insulin over the past 24hrs * 40 units of basal with Levemir * 10 units of bolus with NovoLog * BSGs all in goal range yesterday; PO intake minimal per CHO counts * AM fasting BSG significantly elevated at 232 mg/dl. Pt only received 40 units of basal insulin yesterday. AM hyperglycemia results with only 40 units of basal- will change to set dose of 45 units SQ daily instead of dosing per scale * Will loosen CHO coverage per minimal CHO intake coupled with increased Lantus dosing. 10/17/20 * Patient's BSGs yesterday were [phone] mg/dL. Fasting today was 226 mg/dL. * Patient received 20 units of lantus and 19 units of bolus insulin (39 units total). * Fasting elevated due to no Lantus given last night (not per scale). Give full dose this morning. Adjust tomorrow based upon trends. * Patient appears to be sensitive to CF. Leave looser CF. Tighten CR as patient is carbohydrate sensitive. 10/16: * As expected, BSGs trended on low side yesterday following full-basal dose x 2 - 12 hours apart * Levemir likely wore off by this morning resulting in elevated BSG of 229 mg/dL * Will attempt to split Levemir BID today (will utilize scale in interest of safety) * Lunchtime BSG of 82 mg/dL - will loosen Novolog parameters back to match yesterday 10/15: * DK is a 55 year old obese male admitted on 10/14 due to increasing leg swelling/alcohol intoxication * Pertinent PMH includes tobacco/alcohol abuse, HTN, CAD, T2DM, and CKD * BSGs reasonably well-controlled yesterday, but patient did have episode of hypoglycemia this morning (62 mg/dL) * Given 45 units of Levemir (home dose) and 15 units of prandial/correctional bolus yesterday * Unfortunately, Levemir was already administered this morning prior to consult despite order being for HS * Will monitor closely today for hypoglycemia * pre-lunch BSG of 73 mg/dL -> will loosen carb coverage significantly to 20 for this meal PLAN FOR INPATIENT GLYCEMIC CONTROL: * Hold outpatient oral diabetes medications * Basal insulin * Levemir 45 units SC Daily * Bolus insulin * NovoLog per scale ACHS or Q6hrs while NPO * Goal Range: Low 110 mg/dL - High 140 mg/dL * Correction Factor: 30 mg/dL/unit * Nutritional / Prandial insulin per carb ratio of 1 unit per 10 grams CHO consumed PLAN FOR DISCHARGE: * HbA1c of 8.3% suggests poor outpatient glycemic control * Will follow inpatient insulin needs and make recommendations accordingly * Patient may benefit from fixed dose of Novolog with meals - dose TBD
[2020-10-20] MEDS ORDERED: amLODIPine BESYLATE 5 MG TAB PO SCH (09:30)
[2020-10-20] MEDS: amLODIPine BESYLATE 5 MG TAB PO SCH (09:39)
[2020-10-20 09:59] LABS: Est GFR (African American) 48.7 ml/min; Potassium 4.7 mmol/L (3.5-5.1)
--- NOTE | 2020-10-20 16:36 | Hospitalist Progress Note ---
Date of Service October 20, 2020 Assessment & Plan (1) Alcohol intoxication: Plan: Patient is a 55 yr male presents with lower extremity edema and alcoholism. B/L Lower extremity edema H/O Chronic LE edema DD: Hypoalbuminemia, Diastolic CHF, Cellulitis, Lymphedema Left arm wound -ECHO: EF 55 to 60%. Moderate concentric LVH. Grade 1 diastolic dysfunction. -Venous Doppler:No evidence of deep venous thrombus within the bilateral lower extremities. -Wound Cx:MSSA Received IV Lasix Monitor Volume status Dietitian consulted Continue Rocephin Day #5>> Transitioned to PO Abx Continue fluid restriction Leg edema better Advised to follow-up with cardiology as outpatient Hold diuresis due to ONDINA Plan to resume PO diuretics as able Advised to follow up with Cardiology upon discharge Acute Kidney Injury Cr:1.7 Hold diuresis Avoid nephrotoxic agents as able Monitor renal function Cr stable Mild elevation in troponin H/O chronic elevation of troponin Denies chest pain ECHO as above EKG unchanged from prior Hypomagnesemia replace electrolytes as needed Alcoholism Continue thiamine, folic acid Completed Librium protocol Hold Ativan for Excess sedation Needs rehab placement Tobacco abuse Nicotine patch. DM II HbA1c 8.3 Continue insulin therapy Monitor BGs Peripheral neuropathy Continue gabapentin Hyperkalemia Held Lisinopril Low potassium diet Monitor Hypertensive Urgency Hypertension BP Variable Held lisinopril due to Hyperkalemia Continue metoprolol Added Amlodipine Clonidine PRN CAD S/P Stent Continue aspirin, statin, Metoprolol Depression Continue Effexor CKD III Monitor renal function Chronic pain on Suboxone. Obstructive sleep apnea noncompliant with CPAP. DVT Px: Heparin SQ Code Status Full Code Disposition Needs Rehab placement Admission and Anticipated Discharge Date Admission Date: October 14, 2020 Subjective Patient is seen and examined at bedside Reports chronic back pain and leg pain Continues to balance issues Renal function stable Denies chest pain, dyspnea, dizziness Will benefit from rehab placement Review of Systems Review of Systems: All systems reviewed & are unremarkable except as noted in Subjective Physical Exam Physical Exam: Physical Exam: Vitals signs as noted above General Appearance:Moderately built and nourished, no apparent distress Head: normocephalic, Atraumatic Eyes: normal inspection, EOMI Neck: supple, Trachea midline Respiratory/Chest: Normal breath sounds, CTA, No accessory muscle use Cardiovascular: S1, S2, No murmur Abdomen/GI:Soft, Non tender, Bowel sounds present Extremities/Musculoskeletal:normal inspection, B/L LE edema, +Erythema, LUE wound Neurologic/Psych:AAOX3, grossly no focal neurological deficits Skin: normal color, warm Results & Data Results & Data ([facility]) Vital Signs (Past 12 Hours) Vital Signs Temp Pulse Pulse Resp BP BP Pulse Ox 10/20/20 15:32 36.7 C 62 20 127/81 90 10/20/20 14:59 60 10/20/20 07:13 63 10/20/20 07:04 36.4 C L 59 L 20 186/97 H 93 Laboratory Results [facility] 10/20/20 09:06 Sodium 136 Potassium 4.7 Chloride 101 Carbon Dioxide 31 BUN 46 H Creatinine 1.77 H Glucose 234 H Calcium 9.0 (1) Alcohol intoxication Complication of substance-induced condition: with unspecified complication Qualified Code(s): F10.929 - Alcohol use, unspecified with intoxication, unspecified
[2020-10-21] MEDS: HEPARIN SOD 5,000 UNIT/0.5 ML VIAL SQ SCH ×3 (05:21→21:05)
[2020-10-21] MEDS: CEFDINIR 300 MG CAP PO SCH ×2 (07:54→21:03)
[2020-10-21] MEDS: CYANOCOBALAMIN 500 MCG TABLET (VITAMIN B-12) PO SCH (07:54)
[2020-10-21] MEDS: VENLAFAXINE HCL XR 150 MG CAPXR PO SCH (07:54)
[2020-10-21] MEDS: GABAPENTIN 300 MG CAP PO SCH ×2 (07:55→21:03)
[2020-10-21] MEDS: MAGNESIUM OXIDE 400 MG TAB PO SCH (07:55)
[2020-10-21] MEDS: NICOTINE 21 MG/24 HR TDSY TD SCH (07:55)
[2020-10-21] MEDS: amLODIPine BESYLATE 5 MG TAB PO SCH (07:55)
[2020-10-21] MEDS: CEROVITE ADV FORMULA TAB PO SCH (07:55)
[2020-10-21] MEDS: FOLIC ACID 1 MG TAB PO SCH (07:56)
[2020-10-21] MEDS: THIAMINE HCL 100 MG TAB PO SCH (07:56)
[2020-10-21] MEDS: ATORVASTATIN 40 MG TAB PO SCH (07:56)
[2020-10-21] MEDS: ASPIRIN 81 MG ECTAB PO SCH (07:56)
[2020-10-21] MEDS: CLOTRIMAZOLE 1% CR 15 GM TUBE TOP SCH ×2 (07:57→21:04)
[2020-10-21] MEDS: BUPRENORPHINE/NALOXONE 8/2 MG TAB SL SCH ×2 (08:04→21:03)
[2020-10-21] MEDS: METOPROLOL SUCC 25MG EXT REL TAB PO SCH (08:04)
[2020-10-21] MEDS: INSULIN DETEMIR FLEXPEN/FLEX TOUCH 100 UNITS/ML 3ML SQ SCH (08:05)
[2020-10-21] MEDS: INSULIN ASPART 100 UNITS/ML 3 ML PEN SC SCH ×4 (08:06→20:20)
[2020-10-21 08:48] LABS: BUN Creatinine Ratio 29.3 (10-20); Calcium 9.8 mg/dl (8.5-10.1); Creatinine Clr Calc Pharmacy 54.8 ml/min; Est GFR (African American) 45.8 ml/min; Est GFR (Non-African American) 39.6 ml/min; Magnesium 2.4 mg/dl (1.8-2.4); Phosphorus 4.5 mg/dl (2.5-4.9); Potassium 5.3 mmol/L (3.5-5.1)
[2020-10-21] MEDS: cloNIDine HCL 0.1 MG TAB PO PRN (10:00)
[2020-10-21] MEDS ORDERED: SODIUM CHLORIDE 0.9% 1000ML 500 ML IV ONE ×2 (10:06→19:32)
--- NOTE | 2020-10-21 10:06 | Hospitalist Progress Note ---
Date of Service October 21, 2020 Assessment & Plan (1) Alcohol intoxication: Plan: Patient is a 55 yr male presents with lower extremity edema and alcoholism. B/L Lower extremity edema H/O Chronic LE edema DD: Hypoalbuminemia, Diastolic CHF, Cellulitis, Lymphedema, venous stasis Left arm wound -ECHO: EF 55 to 60%. Moderate concentric LVH. Grade 1 diastolic dysfunction. -Venous Doppler:No evidence of deep venous thrombus within the bilateral lower extremities. -Wound Cx:MSSA Received IV Lasix Monitor Volume status Dietitian consulted Continue Rocephin Day #5>> Transitioned to PO Abx Leg edema much improved Advised to follow-up with cardiology as outpatient Hold diuresis due to ONDINA Plan to resume PO diuretics as able Advised to follow up with Cardiology upon discharge Acute Kidney Injury Cr:1.8 Hold diuresis Avoid nephrotoxic agents as able Monitor renal function Creatinine worsened, will give small amount of fluid and will repeat BMP in the afternoon Placed nephrology consultation Hyperkalemia Low potassium diet, hold losartan Potassium 5.3, ordered Kayexalate, repeat BMP in the afternoon Update: Repeat K, increased at 6.0, ordered IV insulin and D50, follow-up BMP at night Mild elevation in troponin H/O chronic elevation of troponin Denies chest pain ECHO as above EKG unchanged from prior Hypomagnesemia replace electrolytes as needed Alcoholism Continue thiamine, folic acid Completed Librium protocol Hold Ativan for Excess sedation Needs rehab placement Tobacco abuse Nicotine patch. DM II HbA1c 8.3 Continue insulin therapy Monitor BGs Peripheral neuropathy Continue gabapentin Hypertensive Urgency Hypertension BP Variable Held lisinopril due to Hyperkalemia Continue metoprolol Added Amlodipine Clonidine PRN CAD S/P Stent Continue aspirin, statin, Metoprolol Depression Continue Effexor CKD III Monitor renal function Chronic pain on Suboxone. Obstructive sleep apnea: noncompliant with CPAP. DVT Px: Heparin SQ Code Status Full Code Disposition Needs Rehab placement Admission and Anticipated Discharge Date Admission Date: October 14, 2020 Subjective Patient is seen and examined at bedside Reports his lower extremity edema is much improved Tells me he is able to ambulate around the room ONDINA - Cr increased K 5.3 - gave kayexalate Repeat BMP in the afternoon Denies chest pain, dyspnea, dizziness Will benefit from rehab placement Review of Systems Review of Systems: All systems reviewed & are unremarkable except as noted in Subjective Physical Exam Physical Exam: General Appearance: obese male, in no apparent distress Head: normocephalic, Atraumatic Eyes: normal inspection, EOMI Neck: supple, Trachea midline Respiratory/Chest: Normal breath sounds, CTA, No accessory muscle use Cardiovascular: S1, S2, No murmur Abdomen/GI:Soft, Non tender, Bowel sounds present Extremities/Musculoskeletal:normal inspection, B/L LE edema (much improved), +Erythema (seems to be somewhat chronic from likely venous stasis) LUE wound Neurologic/Psych:AAOX3, grossly no focal neurological deficits Skin: normal color, warm Results & Data Results & Data ([facility]) Vital Signs (Past 12 Hours) Vital Signs Temp Pulse Pulse Resp BP BP Pulse Ox 10/21/20 09:56 169/108 H 10/21/20 07:50 36.3 C L 55 L 18 188/116 H 96 10/21/20 07:06 60 10/21/20 04:41 36.4 C L 61 16 168/92 H 93 10/21/20 00:36 61 10/20/20 22:54 36.5 C 63 18 174/92 H 93 Laboratory Results 10/21/20 10/21/20 10/20/20 Range/Units 07:52 07:50 20:17 Sodium 136 (136-145) mmol/L Potassium 5.3 H (3.5-5.1) mmol/L Chloride 104 (98-107) mmol/L Carbon Dioxide 29 (21-32) mmol/L Anion Gap 3.0 (3-11) BUN 55 H (7-18) mg/dl Creatinine 1.86 H (0.6-1.4) mg/dl Est Cr Clr Drug Dosing 54.8 ml/min Est GFR ( Amer) 45.8 ml/min Est GFR (Non-Af Amer) 39.6 ml/min BUN/Creatinine Ratio 29.3 H (10-20) Glucose 187 H (70-99) mg/dl POC Glucose 183 H 121 H (70-99) mg/dl Calcium 9.8 (8.5-10.1) mg/dl Phosphorus 4.5 (2.5-4.9) mg/dl Magnesium 2.4 (1.8-2.4) mg/dl 10/20/20 10/20/20 Range/Units 16:37 11:38 Sodium (136-145) mmol/L Potassium (3.5-5.1) mmol/L Chloride (98-107) mmol/L Carbon Dioxide (21-32) mmol/L Anion Gap (3-11) BUN (7-18) mg/dl Creatinine (0.6-1.4) mg/dl Est Cr Clr Drug Dosing ml/min Est GFR ( Amer) ml/min Est GFR (Non-Af Amer) ml/min BUN/Creatinine Ratio (10-20) Glucose (70-99) mg/dl POC Glucose 128 H 112 H (70-99) mg/dl Calcium (8.5-10.1) mg/dl Phosphorus (2.5-4.9) mg/dl Magnesium (1.8-2.4) mg/dl Medications Administered Current Inpatient Medications Acetaminophen (Acetaminophen 325 Mg Tab) 650 mg PO Q4H PRN PRN Reason: Pain or Fever Stop: 11/13/20 06:17 Last Admin: 10/19/20 04:50 Dose: 650 mg Documented by: Albuterol (Albuterol 0.083% Nebu Soln 3 Ml Vial) 2.5 mg INH QID PRN PRN Reason: Shortness Of Breath Or Wheezing Stop: 11/13/20 06:17 Amlodipine Besylate (Amlodipine Besylate 5 Mg Tab) 5 mg PO QAM [facility] Stop: 11/19/20 09:29 Last Admin: 10/21/20 07:55 Dose: 5 mg Documented by: Aspirin (Aspirin 81 Mg Ectab) 81 mg PO QAM [facility] Stop: 11/13/20 08:59 Last Admin: 10/21/20 07:56 Dose: 81 mg Documented by: Atorvastatin Calcium (Atorvastatin 40 Mg Tab) 80 mg PO DAILY [facility] Stop: 11/13/20 08:59 Last Admin: 10/21/20 07:56 Dose: 80 mg Documented by: Buprenorphine/Naloxone (Buprenorphine/Naloxone 8/2 Mg Tab) 1 tab SL BID [facility] Stop: 11/13/20 08:59 Last Admin: 10/21/20 08:04 Dose: 1 tab Documented by: Cefdinir (Cefdinir 300 Mg Cap) 300 mg PO BID [facility]; Protocol Stop: 10/23/20 20:59 Last Admin: 10/21/20 07:54 Dose: 300 mg Documented by: Clonidine HCl (Clonidine Hcl 0.1 Mg Tab) 0.1 mg PO Q8H PRN PRN Reason: Hypertension Stop: 11/16/20 08:20 Last Admin: 10/21/20 10:00 Dose: 0.1 mg Documented by: Clotrimazole (Clotrimazole 1% Cr 15 Gm Tube) 1 appln TOP BID [facility] Stop: 11/13/20 08:59 Last Admin: 10/21/20 07:57 Dose: 1 appln Documented by: Cyanocobalamin (Cyanocobalamin 500 Mcg Tablet (Vitamin B-12)) 1,000 mcg PO DAILY [facility] Stop: 11/13/20 08:59 Last Admin: 10/21/20 07:54 Dose: 1,000 mcg Documented by: Dextrose (Dextrose 50% 50 Ml Syringe) 25 - 50 ml IV UD PRN; Protocol PRN Reason: Hypoglycemia Protocol Stop: 11/13/20 06:59 Folic Acid (Folic Acid 1 Mg Tab) 1 mg PO QAM [facility] Stop: 11/13/20 08:59 Last Admin: 10/21/20 07:56 Dose: 1 mg Documented by: Gabapentin (Gabapentin 300 Mg Cap) 300 mg PO BID [facility] Stop: 11/13/20 08:59 Last Admin: 10/21/20 07:55 Dose: 300 mg Documented by: Glucagon (Glucagon For Inj 1 Mg Vial) 1 mg IM UD PRN; Protocol PRN Reason: Hypoglycemia Protocol Stop: 11/13/20 06:59 Glucose (Glucose 40% Gel 15 Gm Tube) 15 - 30 gm PO UD PRN; Protocol PRN Reason: Hypoglycemia Protocol Stop: 11/13/20 06:59 Glucose (Glucose 10 Tabs/Tube) 4 - 8 tabs PO UD PRN; Protocol PRN Reason: Hypoglycemia Protocol Stop: 11/13/20 06:59 Heparin Sodium (Porcine) (Heparin Sod 5,000 Unit/0.5 Ml Vial) 7,500 units SQ Q8 [facility] Stop: 11/13/20 06:17 Last Admin: 10/21/20 05:21 Dose: 7,500 units Documented by: Furosemide 40 mg/ Syringe 4 mls @ 4 mls/min IV [id number] [facility] Stop: 11/13/20 08:59 Last Admin: 10/19/20 08:30 Dose: 4 mls/min Documented by: Insulin Aspart (Insulin Aspart 100 Units/Ml 3 Ml Pen) 0 units SC ACHS [facility] Stop: 11/13/20 07:29 Last Admin: 10/21/20 08:06 Dose: 8 units Documented by: Insulin Detemir (Insulin Detemir Flexpen/Flex Touch 100 Units/Ml 3ml) 45 units SQ QAM [facility] Stop: 11/20/20 08:59 Last Admin: 10/21/20 08:05 Dose: 45 units Documented by: Lisinopril (Lisinopril 40 Mg Tab) [facility] [place] Stop: 11/13/20 08:59 Last Admin: 10/16/20 09:06 Dose: 40 mg Documented by: Lorazepam (Lorazepam 1 Mg Tab) 1 mg PO PRN PRN; Protocol PRN Reason: EtoH Withdrawal AWSS 6-10 Magnesium Oxide (Magnesium Oxide 400 Mg Tab) 400 mg PO [facility] Stop: 11/13/20 08:59 Last Admin: 10/21/20 07:55 Dose: 400 mg Documented by: Metoprolol Succinate (Metoprolol Succ 25mg Ext Rel Tab) 75 mg PO [facility] Stop: 11/17/20 04:44 Last Admin: 10/21/20 08:04 Dose: 75 mg Documented by: Miscellaneous (Urea~Order Awaiting Action) 1 ea N/A QS [facility] Stop: 11/13/20 07:59 Last Admin: 10/21/20 07:57 Dose: 1 ea Documented by: Miscellaneous (Remove Nicoderm Patch) 1 ea N/A DAILY@[id number] [facility] Stop: 11/14/20 08:58 Last Admin: 10/21/20 07:57 Dose: 1 ea Documented by: Miscellaneous (Carbohydrates For Hypoglycemia ) 15 - 30 gm PO UD PRN PRN Reason: Hypoglycemia Treatment Stop: 11/13/20 06:59 Last Admin: 10/15/20 17:00 Dose: 15 gm Documented by: Miscellaneous Information (Pharmacy Glycemic Mgmt Consult) 1 ea N/A UD PRN PRN Reason: Consult Stop: 11/14/20 09:35 Multivitamins/Minerals (Cerovite Adv Formula Tab) 1 tab [facility] [place] Stop: 11/13/20 08:59 Last Admin: 10/21/20 07:55 Dose: 1 tab Documented by: Nicotine (Nicotine 21 Mg/24 Hr Tdsy) 21 mg TD [facility] Stop: 11/13/20 08:59 Last Admin: 10/21/20 07:55 Dose: 21 mg Documented by: Nitroglycerin (Nitroglycerin Sl 0.4 Mg/Tab Tab) 0.4 mg SL UD PRN PRN Reason: Chest Pain Stop: 11/13/20 06:17 Ondansetron HCl (Ondansetron Inj 2 Mg/Ml 2 Ml Vial) 4 mg IV Q6H PRN PRN Reason: Nausea Stop: 11/13/20 06:17 Last Admin: 10/14/20 21:19 Dose: 4 mg Documented by: Polyethylene Glycol (Polyethylene (Miralax) 17 Gm Pack) 17 gm PO DAILY PRN PRN Reason: Constipation Stop: 11/13/20 06:17 Sodium Polystyrene Sulfonate (Sodium Polystyrene Sulfonate 15g/60ml Susp) 30 gm PO NOW STA Stop: 10/21/20 10:05 Thiamine HCl (Thiamine Hcl 100 Mg Tab) [facility] [place] Stop: 11/13/20 08:59 Last Admin: 10/21/20 07:56 Dose: 100 mg Documented by: Venlafaxine HCl (Venlafaxine Hcl Xr 150 Mg Capxr) 150 mg PO QAM [facility] Stop: 11/13/20 08:59 Last Admin: 10/21/20 07:54 Dose: 150 mg Documented by: (1) Alcohol intoxication Complication of substance-induced condition: with unspecified complication Qualified Code(s): F10.929 - Alcohol use, unspecified with intoxication, unspecified
[2020-10-21] MEDS ORDERED: SODIUM POLYSTYRENE SULFONATE 15G/60ML SUSP PO ONE (10:30)
[2020-10-21 18:04] LABS: BUN Creatinine Ratio 26.4 (10-20); Calcium 9.1 mg/dl (8.5-10.1); Creatinine Clr Calc Pharmacy 47.2 ml/min; Est GFR (African American) 38.3 ml/min
[2020-10-21] MEDS ORDERED: CALCIUM GLUCONATE 10% 1,000 MG in SODIUM CHLORIDE 0.9% 50 ML IV ONE (19:29)
[2020-10-21] MEDS ORDERED: INSULIN HUMAN REGULAR PER UNIT 5 UNITS in SYRINGE 4.95 ML IV STA (19:30)
[2020-10-21] MEDS ORDERED: DEXTROSE 50% 50 ML SYRINGE IV ONE (19:31)
[2020-10-21] MEDS ORDERED: SODIUM POLYSTYRENE SULFONATE 15G/60ML SUSP PO SCH (19:38)
[2020-10-22 00:55] LABS: BUN Creatinine Ratio 24.9 (10-20); Creatinine Clr Calc Pharmacy 48.1 ml/min; Est GFR (African American) 39.1 ml/min; Est GFR (Non-African American) 33.8 ml/min; Potassium 6.6 mmol/L (3.5-5.1)
[2020-10-22] MEDS ORDERED: DEXTROSE 50% 50 ML SYRINGE IV STA (01:02)
[2020-10-22] MEDS ORDERED: INSULIN HUMAN REGULAR PER UNIT 10 UNITS in SYRINGE 9.9 ML IV STA (01:19)
[2020-10-22] MEDS ORDERED: SODIUM POLYSTYRENE SULFONATE 15G/60ML SUSP PO ONE (01:30)
[2020-10-22] MEDS ORDERED: CALCIUM GLUCONATE 10% 1,000 MG in SODIUM CHLORIDE 0.9% 50 ML IV ONE ×2 (01:30→08:30)
[2020-10-22] MEDS: HEPARIN SOD 5,000 UNIT/0.5 ML VIAL SQ SCH ×3 (05:13→22:08)
--- NOTE | 2020-10-22 07:29 | Hospitalist Progress Note ---
Date of Service October 22, 2020 Assessment & Plan (1) Alcohol intoxication: Plan: Patient is a 55 yr male presents with lower extremity edema and alcoholism. B/L Lower extremity edema H/O Chronic LE edema DD: Hypoalbuminemia, Diastolic CHF, Cellulitis, Lymphedema, venous stasis Left arm wound -ECHO: EF 55 to 60%. Moderate concentric LVH. Grade 1 diastolic dysfunction. -Venous Doppler:No evidence of deep venous thrombus within the bilateral lower extremities. -Wound Cx:MSSA Received IV Lasix Monitor Volume status Dietitian consulted Continue Rocephin Day #5>> Transitioned to PO Abx Leg edema much improved Advised to follow-up with cardiology as outpatient Then held diuresis due to ONDINA Plan to resume PO diuretics as able Advised to follow up with Cardiology upon discharge Acute Kidney Injury Cr:1.8 -> 2.1 Held diuresis Avoid nephrotoxic agents as able Monitor renal function Given ONDINA and hyperkalemia nephrology consulted hx of proteinuria appreciate input from nephrology Hyperkalemia Low potassium diet, hold losartan Potassium 5.3 -> 6.2 ordered Kayexalate, IV insulin Nephrology consulted for further eval and treatment Mild elevation in troponin H/O chronic elevation of troponin Denies chest pain ECHO as above EKG unchanged from prior Hypomagnesemia replace electrolytes as needed Alcoholism Continue thiamine, folic acid Completed Librium protocol Hold Ativan for Excess sedation Needs rehab placement Tobacco abuse Nicotine patch. DM II HbA1c 8.3 Continue insulin therapy Monitor BGs Peripheral neuropathy Continue gabapentin Hypertensive Urgency Hypertension BP Variable Held lisinopril due to Hyperkalemia Continue metoprolol Added Amlodipine Clonidine PRN CAD S/P Stent Continue aspirin, statin, Metoprolol Depression Continue Effexor CKD III Monitor renal function as above Chronic pain on Suboxone. Obstructive sleep apnea: noncompliant with CPAP. DVT Px: Heparin SQ Code Status Full Code Disposition Needs Rehab placement Admission and Anticipated Discharge Date Admission Date: October 14, 2020 Subjective Patient is seen and examined at bedside Reports his lower extremity edema is much improved Tells me he is able to ambulate around the room ONDINA - Cr increased K increased (despite insulin and kayexalate) Denies chest pain, dyspnea, dizziness Will benefit from rehab placement once medically stable Review of Systems Review of Systems: All systems reviewed & are unremarkable except as noted in Subjective Physical Exam Physical Exam: General Appearance: obese male, in no apparent distress Head: normocephalic, Atraumatic Eyes: normal inspection, EOMI Neck: supple, Trachea midline Respiratory/Chest: Normal breath sounds, CTA, No accessory muscle use Cardiovascular: S1, S2, No murmur Abdomen/GI:Soft, Non tender, Bowel sounds present Extremities/Musculoskeletal:normal inspection, B/L LE edema (much improved), +Erythema (seems to be somewhat chronic from likely venous stasis) LUE wound Neurologic/Psych:AAOX3, grossly no focal neurological deficits Skin: normal color, warm Results & Data Results & Data ([facility]) Vital Signs (Past 12 Hours) Vital Signs Temp Pulse Pulse Resp BP Pulse Ox 10/22/20 03:09 36.8 C 69 18 157/78 H 92 10/22/20 00:29 77 10/21/20 23:40 36.4 C L 68 18 147/92 H 93 10/21/20 19:38 36.4 C L 62 20 145/87 H 91 Laboratory Results 10/22/20 10/22/20 10/22/20 Range/Units 07:28 07:26 05:59 Sodium 135 L (136-145) mmol/L Potassium 6.2 H* (3.5-5.1) mmol/L Chloride 103 (98-107) mmol/L Carbon Dioxide 29 (21-32) mmol/L Anion Gap 3.0 (3-11) BUN 51 H (7-18) mg/dl Creatinine 2.03 H (0.6-1.4) mg/dl Est Cr Clr Drug Dosing 50.8 ml/min Est GFR ( Amer) 41.2 ml/min Est GFR (Non-Af Amer) 35.6 ml/min BUN/Creatinine Ratio 24.9 H (10-20) Glucose 328 H* (70-99) mg/dl POC Glucose 316 H* 354 H* (70-99) mg/dl Calcium 9.1 (8.5-10.1) mg/dl Phosphorus (2.5-4.9) mg/dl Magnesium 2.4 (1.8-2.4) mg/dl Beta-Hydroxybutyric Acd 0.51 (0.2-2.81) mg/dl 10/22/20 10/21/20 10/21/20 Range/Units 00:08 22:53 20:14 Sodium 135 L (136-145) mmol/L Potassium 6.6 H* (3.5-5.1) mmol/L Chloride 104 (98-107) mmol/L Carbon Dioxide 32 (21-32) mmol/L Anion Gap 0 L (3-11) BUN 53 H (7-18) mg/dl Creatinine 2.12 H (0.6-1.4) mg/dl Est Cr Clr Drug Dosing 48.1 ml/min Est GFR ( Amer) 39.1 ml/min Est GFR (Non-Af Amer) 33.8 ml/min BUN/Creatinine Ratio 24.9 H (10-20) Glucose 277 H (70-99) mg/dl POC Glucose 158 H 125 H (70-99) mg/dl Calcium 9.0 (8.5-10.1) mg/dl Phosphorus (2.5-4.9) mg/dl Magnesium (1.8-2.4) mg/dl Beta-Hydroxybutyric Acd (0.2-2.81) mg/dl 10/21/20 10/21/20 10/21/20 Range/Units 17:26 16:32 11:44 Sodium 136 (136-145) mmol/L Potassium 6.0 H (3.5-5.1) mmol/L Chloride 105 (98-107) mmol/L Carbon Dioxide 27 (21-32) mmol/L Anion Gap 5.0 (3-11) BUN 57 H (7-18) mg/dl Creatinine 2.16 H D (0.6-1.4) mg/dl Est Cr Clr Drug Dosing 47.2 ml/min Est GFR ( Amer) 38.3 ml/min Est GFR (Non-Af Amer) 33.0 ml/min BUN/Creatinine Ratio 26.4 H (10-20) Glucose 249 H (70-99) mg/dl POC Glucose 169 H 208 H (70-99) mg/dl Calcium 9.1 (8.5-10.1) mg/dl Phosphorus (2.5-4.9) mg/dl Magnesium (1.8-2.4) mg/dl Beta-Hydroxybutyric Acd (0.2-2.81) mg/dl 10/21/20 Range/Units 07:50 Sodium 136 (136-145) mmol/L Potassium 5.3 H (3.5-5.1) mmol/L Chloride 104 (98-107) mmol/L Carbon Dioxide 29 (21-32) mmol/L Anion Gap 3.0 (3-11) BUN 55 H (7-18) mg/dl Creatinine 1.86 H (0.6-1.4) mg/dl Est Cr Clr Drug Dosing 54.8 ml/min Est GFR ( Amer) 45.8 ml/min Est GFR (Non-Af Amer) 39.6 ml/min BUN/Creatinine Ratio 29.3 H (10-20) Glucose 187 H (70-99) mg/dl POC Glucose (70-99) mg/dl Calcium 9.8 (8.5-10.1) mg/dl Phosphorus 4.5 (2.5-4.9) mg/dl Magnesium 2.4 (1.8-2.4) mg/dl Beta-Hydroxybutyric Acd (0.2-2.81) mg/dl Medications Administered Current Inpatient Medications Acetaminophen (Acetaminophen 325 Mg Tab) 650 mg PO Q4H PRN PRN Reason: Pain or Fever Stop: 11/13/20 06:17 Last Admin: 10/19/20 04:50 Dose: 650 mg Documented by: Albuterol (Albuterol 0.083% Nebu Soln 3 Ml Vial) 2.5 mg INH QID PRN PRN Reason: Shortness Of Breath Or Wheezing Stop: 11/13/20 06:17 Amlodipine Besylate (Amlodipine Besylate 5 Mg Tab) 5 mg PO QAM [facility] Stop: 11/19/20 09:29 Last Admin: 10/21/20 07:55 Dose: 5 mg Documented by: Aspirin (Aspirin 81 Mg Ectab) 81 mg PO QAM [facility] Stop: 11/13/20 08:59 Last Admin: 10/21/20 07:56 Dose: 81 mg Documented by: Atorvastatin Calcium (Atorvastatin 40 Mg Tab) 80 mg PO DAILY [facility] Stop: 11/13/20 08:59 Last Admin: 10/21/20 07:56 Dose: 80 mg Documented by: Buprenorphine/Naloxone (Buprenorphine/Naloxone 8/2 Mg Tab) 1 tab SL BID [facility] Stop: 11/13/20 08:59 Last Admin: 10/21/20 21:03 Dose: 1 tab Documented by: Cefdinir (Cefdinir 300 Mg Cap) 300 mg PO BID [facility]; Protocol Stop: 10/23/20 20:59 Last Admin: 10/21/20 21:03 Dose: 300 mg Documented by: Clonidine HCl (Clonidine Hcl 0.1 Mg Tab) 0.1 mg PO Q8H PRN PRN Reason: Hypertension Stop: 11/16/20 08:20 Last Admin: 10/21/20 10:00 Dose: 0.1 mg Documented by: Clotrimazole (Clotrimazole 1% Cr 15 Gm Tube) 1 appln TOP BID [facility] Stop: 11/13/20 08:59 Last Admin: 10/21/20 21:04 Dose: 1 appln Documented by: Cyanocobalamin (Cyanocobalamin 500 Mcg Tablet (Vitamin B-12)) 1,000 mcg PO DAILY [facility] Stop: 11/13/20 08:59 Last Admin: 10/21/20 07:54 Dose: 1,000 mcg Documented by: Dextrose (Dextrose 50% 50 Ml Syringe) 25 - 50 ml IV UD PRN; Protocol PRN Reason: Hypoglycemia Protocol Stop: 11/13/20 06:59 Folic Acid (Folic Acid 1 Mg Tab) 1 mg PO QAM [facility] Stop: 11/13/20 08:59 Last Admin: 10/21/20 07:56 Dose: 1 mg Documented by: Gabapentin (Gabapentin 300 Mg Cap) 300 mg PO BID [facility] Stop: 11/13/20 08:59 Last Admin: 10/21/20 21:03 Dose: 300 mg Documented by: Glucagon (Glucagon For Inj 1 Mg Vial) 1 mg IM UD PRN; Protocol PRN Reason: Hypoglycemia Protocol Stop: 11/13/20 06:59 Glucose (Glucose 40% Gel 15 Gm Tube) 15 - 30 gm PO UD PRN; Protocol PRN Reason: Hypoglycemia Protocol Stop: 11/13/20 06:59 Glucose (Glucose 10 Tabs/Tube) 4 - 8 tabs PO UD PRN; Protocol PRN Reason: Hypoglycemia Protocol Stop: 11/13/20 06:59 Heparin Sodium (Porcine) (Heparin Sod 5,000 Unit/0.5 Ml Vial) 7,500 units SQ Q8 [facility] Stop: 11/13/20 06:17 Last Admin: 10/22/20 05:13 Dose: 7,500 units Documented by: Furosemide 40 mg/ Syringe 4 mls @ 4 mls/min IV BID17 [facility] Stop: 11/13/20 08:59 Last Admin: 10/19/20 08:30 Dose: 4 mls/min Documented by: Insulin Aspart (Insulin Aspart 100 Units/Ml 3 Ml Pen) 0 units SC ACHS [facility] Stop: 11/13/20 07:29 Last Admin: 10/21/20 20:20 Dose: Not Given Documented by: Insulin Detemir (Insulin Detemir Flexpen/Flex Touch 100 Units/Ml 3ml) 45 units SQ QAM [facility] Stop: 11/20/20 08:59 Last Admin: 10/21/20 08:05 Dose: 45 units Documented by: Lisinopril (Lisinopril 40 Mg Tab) 40 mg PO QAM [facility] Stop: 11/13/20 08:59 Last Admin: 10/16/20 09:06 Dose: 40 mg Documented by: Lorazepam (Lorazepam 1 Mg Tab) 1 mg PO PRN PRN; Protocol PRN Reason: EtoH Withdrawal AWSS 6-10 Magnesium Oxide (Magnesium Oxide 400 Mg Tab) [facility]: 11/13/20 08:59 Last Admin: 10/21/20 07:55 Dose: 400 mg Documented by: Metoprolol Succinate (Metoprolol Succ 25mg Ext Rel Tab) [facility] [place] Stop: 11/17/20 04:44 Last Admin: 10/21/20 08:04 Dose: 75 mg Documented by: Miscellaneous (Urea~Order Awaiting Action) 1 ea N/A QS [facility] Stop: 11/13/20 07:59 Last Admin: 10/21/20 23:36 Dose: Not Given Documented by: Miscellaneous (Remove Nicoderm Patch) 1 ea N/A DAILY@0859 [facility] Stop: 11/14/20 08:58 Last Admin: 10/21/20 07:57 Dose: 1 ea Documented by: Miscellaneous (Carbohydrates For Hypoglycemia ) 15 - 30 gm PO UD PRN PRN Reason: Hypoglycemia Treatment Stop: 11/13/20 06:59 Last Admin: 10/15/20 17:00 Dose: 15 gm Documented by: Miscellaneous Information (Pharmacy Glycemic Mgmt Consult) 1 ea N/A UD PRN PRN Reason: Consult Stop: 11/14/20 09:35 Multivitamins/Minerals (Cerovite Adv Formula Tab) 1 tab PO QAM [facility] Stop: 11/13/20 08:59 Last Admin: 10/21/20 07:55 Dose: 1 tab Documented by: Nicotine (Nicotine 21 Mg/24 Hr Tdsy) 21 mg TD QAM [facility] Stop: 11/13/20 08:59 Last Admin: 10/21/20 07:55 Dose: 21 mg Documented by: Nitroglycerin (Nitroglycerin Sl 0.4 Mg/Tab Tab) 0.4 mg SL UD PRN PRN Reason: Chest Pain Stop: 11/13/20 06:17 Ondansetron HCl (Ondansetron Inj 2 Mg/Ml 2 Ml Vial) 4 mg IV Q6H PRN PRN Reason: Nausea Stop: 11/13/20 06:17 Last Admin: 10/14/20 21:19 Dose: 4 mg Documented by: Polyethylene Glycol (Polyethylene (Miralax) 17 Gm Pack) 17 gm PO DAILY PRN PRN Reason: Constipation Stop: 11/13/20 06:17 Thiamine HCl (Thiamine Hcl 100 Mg Tab) [facility] [place] Stop: 11/13/20 08:59 Last Admin: 10/21/20 07:56 Dose: 100 mg Documented by: Venlafaxine HCl (Venlafaxine Hcl Xr 150 Mg Capxr) 150 mg PO QAM [facility] Stop: 11/13/20 08:59 Last Admin: 10/21/20 07:54 Dose: 150 mg Documented by: (1) Alcohol intoxication Complication of substance-induced condition: with unspecified complication Qualified Code(s): F10.929 - Alcohol use, unspecified with intoxication, unspecified
[2020-10-22 07:56] LABS: BUN Creatinine Ratio 24.9 (10-20); Calcium 9.1 mg/dl (8.5-10.1); Creatinine Clr Calc Pharmacy 50.8 ml/min; Est GFR (African American) 41.2 ml/min; Est GFR (Non-African American) 35.6 ml/min; Magnesium 2.4 mg/dl (1.8-2.4); Potassium 6.2 mmol/L (3.5-5.1)
[2020-10-22] MEDS: NICOTINE 21 MG/24 HR TDSY TD SCH (07:56)
[2020-10-22] MEDS: VENLAFAXINE HCL XR 150 MG CAPXR PO SCH (07:57)
[2020-10-22] MEDS: THIAMINE HCL 100 MG TAB PO SCH (07:57)
[2020-10-22] MEDS: CEROVITE ADV FORMULA TAB PO SCH (07:58)
[2020-10-22] MEDS: CYANOCOBALAMIN 500 MCG TABLET (VITAMIN B-12) PO SCH (07:58)
[2020-10-22] MEDS: MAGNESIUM OXIDE 400 MG TAB PO SCH (07:59)
[2020-10-22] MEDS: CEFDINIR 300 MG CAP PO SCH ×2 (07:59→20:41)
[2020-10-22] MEDS: FOLIC ACID 1 MG TAB PO SCH (07:59)
[2020-10-22] MEDS: GABAPENTIN 300 MG CAP PO SCH ×2 (07:59→20:42)
[2020-10-22] MEDS: amLODIPine BESYLATE 5 MG TAB PO SCH (08:00)
[2020-10-22] MEDS: ATORVASTATIN 40 MG TAB PO SCH (08:00)
[2020-10-22] MEDS: ASPIRIN 81 MG ECTAB PO SCH (08:01)
[2020-10-22] MEDS: CLOTRIMAZOLE 1% CR 15 GM TUBE TOP SCH ×2 (08:03→20:41)
[2020-10-22 08:10] LABS: Beta-Hydroxybutyrate 0.51 mg/dl (0.2-2.81)
[2020-10-22] MEDS ORDERED: SODIUM CHLORIDE 0.9% 1000ML 500 ML IV ONE (08:17)
[2020-10-22] MEDS ORDERED: SODIUM POLYSTYRENE SULFONATE 15G/60ML SUSP PO SCH (08:30)
[2020-10-22] MEDS ORDERED: INSULIN HUMAN REGULAR PER UNIT 10 UNITS in SYRINGE 9.9 ML IV ONE (08:30)
[2020-10-22] MEDS ORDERED: INSULIN HUMAN REGULAR PER UNIT 5 UNITS in SYRINGE 4.95 ML IV ONE (08:45)
[2020-10-22] MEDS: FUROSEMIDE 60 MG in SYRINGE 0 ML IV SCH ×3 (09:55→18:13)
[2020-10-22] MEDS: INSULIN DETEMIR FLEXPEN/FLEX TOUCH 100 UNITS/ML 3ML SQ SCH (10:01)
[2020-10-22] MEDS: INSULIN ASPART 100 UNITS/ML 3 ML PEN SC SCH ×4 (10:02→20:42)
[2020-10-22] MEDS: METOPROLOL SUCC 25MG EXT REL TAB PO SCH (10:05)
[2020-10-22] MEDS: BUPRENORPHINE/NALOXONE 8/2 MG TAB SL SCH ×2 (10:14→20:40)
[2020-10-22 11:40] LABS: Basophils # (auto) 0.02 K/uL (0-0.2); Basophils % (auto) 0.5 %; Eosinophils # (auto) 0.06 K/uL (0-0.5); Eosinophils % (auto) 1.5 %; Hematocrit (blood only) 40.2 % (42-52); Hemoglobin 12.9 g/dL (14.0-18.0); Immature Granulocytes # (auto) 0.01 K/uL (0.00-0.02); Immature Granulocytes % (auto) 0.3 %; Lymphocytes # (auto) 1.55 K/uL (1.2-3.4); Lymphocytes % (auto) 39.3 %; Mean Corpuscular Hemoglobin 31.6 pg (25-34); Mean Corpuscular Hgb Conc 32.1 g/dL (32-36); Mean Corpuscular Volume 98.5 fL (80-100); Monocytes # (auto) 0.66 K/uL (0.11-0.59); Monocytes % (auto) 16.8 %; Neutrophils # (auto) 1.64 K/uL (1.4-6.5); Neutrophils % (auto) 41.6 %; Platelet Count 255 K/uL (130-400); RDW Coefficient of Variation 13.1 % (11.5-14.5); RDW Standard Deviation 47.1 fL (36.4-46.3); Red Blood Count 4.08 M/uL (4.7-6.1); White Blood Count 3.94 K/uL (4.8-10.8)
[2020-10-22 12:10] LABS: BUN Creatinine Ratio 24.2 (10-20); Calcium 9.6 mg/dl (8.5-10.1); Creatinine Clr Calc Pharmacy 55.4 ml/min; Est GFR (African American) 45.8 ml/min; Est GFR (Non-African American) 39.6 ml/min; Potassium 4.7 mmol/L (3.5-5.1)
--- NOTE | 2020-10-22 13:10 | Pharmacy Report ---
Pharmacy Glycemic Short Note 2 - Date of Service October 22, 2020 - Glycemic Short BSG Results (Last 24 hours): 10/21/20 10/21/20 10/21/20 16:32 17:26 20:14 Glucose 249 H POC Glucose 169 H 125 H 10/21/20 10/22/20 10/22/20 22:53 00:08 05:59 Glucose 277 H 328 H* POC Glucose 158 H 10/22/20 10/22/20 10/22/20 07:26 07:28 11:21 Glucose POC Glucose 354 H* 316 H* 237 H 10/22/20 11:22 Glucose 159 H POC Glucose OUTPATIENT ANTIDIABETIC REGIMEN: * Levemir 45 units SC HS * Novolog SSI and Ozempic * HbA1c: 8.3% (10/14/20) ASSESSMENT: 10/22/20: * Pt has received 69 units of insulin over the past 24hrs * 45 units of basal with Levemir * 24 units of bolus with NovoLog * majority of BSGs were above goal * Fasting BSG severely elevated; 316 mg/dL. RN reports that patient ate candy prior to fasting BSG check. In addition to this patient was given IV insulin + dextrose IV x 2 overnight for hyperkalemia, therefore fasting BSG is unrealizable. Will slightly increase basal dose based on elevated fasting on 10/20 & 10/21. * Lunch BSG elevated x 2 days, therefore novolog will be tightened. 10/20/20 * Pt has received 50 units of insulin over the past 24hrs * 40 units of basal with Levemir * 10 units of bolus with NovoLog * BSGs all in goal range yesterday; PO intake minimal per CHO counts * AM fasting BSG significantly elevated at 232 mg/dl. Pt only received 40 units of basal insulin yesterday. AM hyperglycemia results with only 40 units of basal- will change to set dose of 45 units SQ daily instead of dosing per scale * Will loosen CHO coverage per minimal CHO intake coupled with increased Lantus dosing. 10/17/20 * Patient's BSGs yesterday were [phone] mg/dL. Fasting today was 226 mg/dL. * Patient received 20 units of lantus and 19 units of bolus insulin (39 units total). * Fasting elevated due to no Lantus given last night (not per scale). Give full dose this morning. Adjust tomorrow based upon trends. * Patient appears to be sensitive to CF. Leave looser CF. Tighten CR as patient is carbohydrate sensitive. PLAN FOR INPATIENT GLYCEMIC CONTROL: * Hold outpatient oral diabetes medications * Basal insulin - increase * Levemir 50 units SC Daily * Bolus insulin - tighten * NovoLog per scale ACHS or Q6hrs while NPO * Goal Range: Low 110 mg/dL - High 140 mg/dL * Correction Factor: 25 mg/dL/unit * Nutritional / Prandial insulin per carb ratio of 1 unit per 9 grams CHO consumed PLAN FOR DISCHARGE: * HbA1c of 8.3% suggests poor outpatient glycemic control * Increase basal insulin to 50 units daily * Patient may benefit from fixed dose of Novolog with meals - rec starting with 6 units TID meals and titrate per outpatient provider
[2020-10-22] MEDS ORDERED: INSULIN DETEMIR FLEXPEN/FLEX TOUCH 100 UNITS/ML 3ML SQ ONE (13:15)
[2020-10-22] MEDS: PATIROMER CALCIUM SORBITEX 8.4 GM PACK PO SCH (13:24)
--- NOTE | 2020-10-22 15:22 | Nephrology Consultation ---
Date of Consultation October 22, 2020 Assessment & Plan (1) Hyperkalemia: -improved today w/ medical management >> cause unclear as he has been off of ACEI for several days before this occurred; CK is within normal limits -continue patiromer, low K diet, kayexalate w/ low threshold to stop latter; unlikely he could continue patiromer as OP -had ordered to resume lasix > this has not been done; await 1700 recheck at this point -recheck bmp ordered for 1700 (2) ONDINA (acute kidney injury): baseline creatinine less than one; was at baseline on presentation. peak value to date 2.1 on 10/22 -daily BMP -check renal u/s -recheck uacm, prot/creat (3) Proteinuria: recheck proteinuria status > negative test most helpful as expect this to be elevated given uncontrolled HTN; ordered renal u/s; diuresis (4) Bilateral edema of lower extremity: evaluate for nephrotic syndrome; though edema is much improved compared to admission (5) HTN (hypertension): SBP is quite labile - ranges 110s-180s past 24 hrs, mostly elevated -continue to hold ACEI -cont CCB medium dose, toprol -AVOID standing clonidine -consider hydralazine if needed History of Present Illness Reason for Consultation: hyperkalemia, ONDINA Requesting Physician: Dr Munoz Attending Physician: Germain Munoz MD History of Present Illness 55 y/o M whom I'm asked to see for hyperkalemia, ONDINA was admitted here for worsening LE edema in the setting of EtOH abuse on 10/14. PMH includes type 2 diabetes, hypertension, active alcohol abuse with history of withdrawal seizures and serial rehab admissions, coronary artery disease status post stenting, sleep apnea noncompliant with CPAP, active tobacco abuse, fatty liver, depression and anxiety, obesity. He established with me in CKD clinic Apr 2020 >> he has significant proteinuria but NOT CKD 3; he has not followed up. Eval at that time concerning for nephrotic range proteinuria. He endorsed drinking one half gallon vodka daily at that clinic visit and prior to this admission. he was covered for EtOH withdrawal while he was diuresed and received treatment for LE cellulitis. Lasix was stopped on 10/14; lisinopril was stopped 10/17. He was noted yesterday evening to have a potassium of 6, increased to 6.6 by midnight despite 5 units of insulin and 30 g Kayexalate. He received another 10 units of insulin early this morning, with improvement of potassium to 6.2 by 6 a.m. and 4.7 by midday today. He had been ordered to have 60 mg IV Lasix x1 however this was not dosed prior to midday labs. He was also started on patiromer. Creatinine on presentation was 0.9 on the . It was up to 1.3 by October 16 and hovered in this range until October 19 when it bumped to 1.7; then up trended to about 2 where it has been plateaued past 48 hours. Allergies Allergy/AdvReac Type Severity Reaction Status Date / Time No Known Allergies Allergy Verified 10/14/20 00:54 Home Medications Medication Instructions Recorded Confirmed Type insulin aspart U-100 100 unit/mL See Rx Instructions .ROUTE .COMPLEX 12/16/17 10/14/20 History (3 mL) subcutaneous pen (Novolog Flexpen U-100 Insulin aspart) aspirin 81 mg tablet,delayed 81 mg PO QAM 08/26/19 10/14/20 History release (Ecotrin Low Strength) metoprolol succinate 50 mg 50 mg PO QAM 08/26/19 10/14/20 History tablet,extended release 24 hr (Toprol XL) venlafaxine 150 mg 150 mg PO QAM 08/26/19 10/14/20 History capsule,extended release 24 hr (Effexor XR) buprenorphine 8 mg-naloxone 2 mg 1 tab SUBLINGUAL BID 01/16/20 10/14/20 History sublingual tablet folic acid 1 mg tablet 1 mg PO QAM 01/16/20 10/14/20 History furosemide 40 mg tablet 40 mg PO QAM #30 tab 03/07/20 10/14/20 Rx gabapentin 300 mg capsule 300 mg PO BID #60 cap 03/07/20 10/14/20 Rx magnesium oxide 400 mg (241.3 mg 400 mg PO QAM #30 tab 03/07/20 10/14/20 Rx magnesium) tablet nicotine 21 mg/24 hr daily 21 mg TRANSDERMAL QAM #14 ea 03/07/20 10/14/20 Rx transdermal patch (Nicoderm CQ) thiamine HCl (vitamin B1) 100 mg 100 mg PO QAM #30 tab 03/07/20 10/14/20 Rx tablet (Vitamin B-1) albuterol sulfate 2.5 mg INHALATION QID PRN 07/24/20 10/14/20 History atorvastatin 80 mg tablet 80 mg PO DAILY 07/24/20 10/14/20 History clotrimazole 1 % topical cream 1 applic TOPICAL BID 07/24/20 10/14/20 History cyanocobalamin (vitamin B-12) 1,000 mcg PO DAILY 07/24/20 10/14/20 History 1,000 mcg tablet (Vitamin B-12) multivitamin 1 tab PO DAILY 07/24/20 10/14/20 History naloxone 0.4 mg/mL injection 0 mg INTRANASAL DIRECTED PRN 07/24/20 10/14/20 History solution nitroglycerin 0.4 mg sublingual 0.4 mg SUBLINGUAL DIRECTED PRN 07/24/20 10/14/20 History tablet (Nitrostat) semaglutide 1 mg/dose (2 mg/1.5 0.5 mg SUBCUT WK 07/24/20 10/14/20 History mL) subcutaneous pen injector (Ozempic) urea 20 % topical cream 1 applic TOPICAL BID 07/24/20 10/14/20 History amlodipine 5 mg tablet (Norvasc) 5 mg PO QAM #30 tab 08/04/20 10/14/20 Rx disulfiram 500 mg tablet 500 mg PO DAILY #14 tab 08/04/20 10/14/20 Rx insulin detemir U-100 100 unit/mL 45 unit SUBCUT HS #15 ml 08/04/20 10/14/20 Rx (3 mL) subcutaneous pen (Levemir FlexTouch U-100 Insulin) lisinopril 40 mg tablet (Zestril) 40 mg PO QAM #30 tab 08/04/20 10/14/20 Rx Patient History Medical History Alcohol use disorder Bilateral edema of lower extremity Chronic anemia Diabetes mellitus type 2 with complications TONEY (dyspnea on exertion) Edema Elevated troponin HTN (hypertension) Mood disorder Neuropathy NSTEMI (non-ST elevated myocardial infarction) Obesity CATALINO (obstructive sleep apnea) CATALINO (obstructive sleep apnea) Proteinuria Smoking Tobacco use disorder Type 2 diabetes mellitus Surgical History History of cardiac catheterization 1 ELIESER to proximal OM by Dr. Guerrero on 01/01/19 History of lymph node biopsy Family History Other Heart disease Social History Smoking Status: Current every day smoker Tobacco Type: Cigarettes Years Smoked: 39; Cigarettes Per Day: 20; Second Hand Exposure: Yes; Do You Dip or Chew Tobacco: No; Tobacco Cessation Education Requested by Patient: No Hx Alcohol Use: Yes Alcohol type: hard liquor Alcohol type Comment: 1/2 gallon vodka a day Hx Substance Use: Yes Last Used Substance: Days (ago) Last Used Substance Other:: takes suboxone Substance Use Type Other:: suboxone program Preferred Language: Bahraini Communication Ability: Effective [employer] Supervisor Required: No Beliefs That Will Affect Care: None marital status: Single Current Living Situation: Alone Current Living Situation Comment: Rv in [employer] current occupational status: unemployed How many Children do You have: 2 Other Information That Helps Us Care for You: No Feels Safe at Home: Yes Safety Concerns: Feels Safe At This Time Assistive Devices: None Review of Systems Cardiovascular: + dyspnea on exertion (improving) and + edema (markedly improved compared to admission > endorses edema to groin on BLE and to waist on presentation) Psychiatric: + visual hallucinations (sees people present "for some time," including today) Physical Exam Constitutional: well developed, well nourished and + obese; no acute distress sitting on side of bed Eyes: EOM intact bilaterally ENMT: Ears: no external ear abnormality Nose: no external nose abnormality Mouth: + dry oral mucous membranes Neck: no nuchal rigidity Respiratory: normal respiratory effort Auscultation: + diminished lung sounds Cardiovascular: Rate/Rhythm: regular rate and regular rhythm Extremities: + edema (trace indurated BLE) Gastrointestinal (Abdomen): Inspection/Auscultation: normal bowel sounds Percussion/Palpation: abdomen soft; abdomen nontender Musculoskeletal: Extremities: strength 5/5 throughout Skin: no rashes, warm and dry Neurologic: maza, fluent speech, no tremor Psychiatric: Orientation: alert and oriented x 3 Apperance: + disheveled Eye Contact: + fair eye contact Speech: + pressured speech Hallucinations: + visual hallucinations Results & Data ([facility]) Vital Signs (Past 12 Hours) Vital Signs Temp Pulse Pulse Resp BP Pulse Ox 10/22/20 12:10 36.5 C 63 16 189/90 H 96 10/22/20 08:00 70 10/22/20 07:39 36.4 C L 69 16 195/76 H 92 Laboratory Results 10/22/20 11:22 10/22/20 11:22 October 14 urine sediment remarkable for 3+ dipstick protein, 2+ blood, and bland sediment. Dipstick hematuria and proteinuria noted on multiple prior urinalyses Diagnostic Findings CXR: no acute CP findings 10/13 no renal imaging on file as OP or IP
[2020-10-22 18:00] LABS: BUN Creatinine Ratio 25.7 (10-20); Calcium 9.5 mg/dl (8.5-10.1); Creatinine Clr Calc Pharmacy 53.7 ml/min; Est GFR (African American) 44.1 ml/min; Est GFR (Non-African American) 38.1 ml/min; Potassium 5.3 mmol/L (3.5-5.1)
[2020-10-22 21:25] LABS: Appearance Urine Clear (Clear); Bacteria Urine Automated Negative (Negative); Bilirubin Urine Negative (Negative); Blood Urine Negative (Negative); Color Urine Yellow; Glucose Urine UA Negative (Negative); Ketones Urine Negative (Negative); Leukocyte Esterase Urine Negative (Negative); Nitrite Urine Negative (Negative); Protein Urine 2+ (Negative); RBC Urine Automated 0-4 /hpf (0-4); Specific Gravity Urine 1.009 (1.000-1.030); Urobilinogen Urine Negative (Negative)
[2020-10-22 21:59] LABS: Creatinine Urine Random 21.5 mg/dl; Protein Creatinine Ratio Urine 4.4 (0-0.2); Total Protein Urine Random 95.4 mg/dl (0-11.9)
[2020-10-23] MEDS: HEPARIN SOD 5,000 UNIT/0.5 ML VIAL SQ SCH ×3 (06:27→20:46)
[2020-10-23 07:45] LABS: Hematocrit (blood only) 41.8 % (42-52); Hemoglobin 13.6 g/dL (14.0-18.0); Mean Corpuscular Hemoglobin 31.8 pg (25-34); Mean Corpuscular Hgb Conc 32.5 g/dL (32-36); Mean Corpuscular Volume 97.7 fL (80-100); Mean Platelet Volume 10.6 fL (7.4-10.4); Platelet Count 307 K/uL (130-400); RDW Standard Deviation 46.7 fL (36.4-46.3); Red Blood Count 4.28 M/uL (4.7-6.1); White Blood Count 4.28 K/uL (4.8-10.8)
--- NOTE | 2020-10-23 08:17 | Ultrasound Report ---
EXAMINATION: RENAL ULTRASOUND CLINICAL HISTORY: chronic proteinuria, hematuria; ONDINA COMPARISON STUDY: None FINDINGS: The right kidney measures 12.0 x 6.3 x 5.6 cm. The left kidney measures 12.1 x 6.8 x 6.8 cm . There is no evidence of hydronephrosis. There are no renal masses. No bladder abnormalities are visualized. Bilateral ureteral jets were visualized. IMPRESSION : Normal exam. ACT 112: Negative or not required by law. The above report was generated using voice recognition software. It may contain grammatical, syntax o r spelling errors. Electronically signed by: Yasmine Stein DO 10/23/2020 8:16 AM
[2020-10-23 08:19] LABS: Calcium 9.4 mg/dl (8.5-10.1); Creatinine Clr Calc Pharmacy 52.5 ml/min; Est GFR (African American) 43.6 ml/min; Est GFR (Non-African American) 37.6 ml/min; Potassium 4.5 mmol/L (3.5-5.1)
--- NOTE | 2020-10-23 09:10 | Hospitalist Progress Note ---
Date of Service October 23, 2020 Assessment & Plan (1) Alcohol intoxication: Plan: Patient is a 55 yr male presents with lower extremity edema and alcoholism. B/L Lower extremity edema H/O Chronic LE edema DD: Hypoalbuminemia, Diastolic CHF, Cellulitis, Lymphedema, venous stasis Left arm wound -ECHO: EF 55 to 60%. Moderate concentric LVH. Grade 1 diastolic dysfunction. -Venous Doppler:No evidence of deep venous thrombus within the bilateral lower extremities. -Wound Cx:MSSA Received IV Lasix Monitor Volume status Dietitian consulted Continue Rocephin Day #5>> Transitioned to PO Abx Leg edema much improved Advised to follow-up with cardiology as outpatient Then held diuresis due to ONDINA Plan to resume PO diuretics as able Advised to follow up with Cardiology upon discharge Acute Kidney Injury Cr:1.8 -> 2.1 Held diuresis Avoid nephrotoxic agents as able Monitor renal function Given ONDINA and hyperkalemia nephrology consulted hx of proteinuria, currently 4.4 g proteinuria Nephrotic syndrome work-up ordered by nephrology Appreciate input from nephrology Also, per nephrology, no CKD, however history of proteinuria Hyperkalemia Low potassium diet, hold losartan Potassium 5.3 -> 6.2 ordered Kayexalate, IV insulin Nephrology consulted for further eval and treatment Visual hallucinations Patient admitted and treated for alcohol withdrawal Believed he would be out of the window for alcohol withdrawal, however there is a possibility Also possible delirium or underlying psychiatric disorder Contacted and consulted psychiatry for further evaluation Mild elevation in troponin H/O chronic elevation of troponin Denies chest pain ECHO as above EKG unchanged from prior Hypomagnesemia replace electrolytes as needed Alcoholism Continue thiamine, folic acid Completed Librium protocol Hold Ativan for Excess sedation Needs rehab placement Tobacco abuse Nicotine patch. DM II HbA1c 8.3 Continue insulin therapy Monitor BGs Peripheral neuropathy Continue gabapentin Hypertensive Urgency Hypertension BP Variable Held lisinopril due to Hyperkalemia Continue metoprolol Added Amlodipine Clonidine PRN CAD S/P Stent Continue aspirin, statin, Metoprolol Depression Continue Effexor Chronic pain on Suboxone. Obstructive sleep apnea: noncompliant with CPAP. DVT Px: Heparin SQ Code Status Full Code Disposition Needs Rehab placement Admission and Anticipated Discharge Date Admission Date: October 14, 2020 Subjective Patient is seen and examined at bedside Reports his lower extremity edema is much improved Tells me he is able to ambulate around the room He also reports that he already saw to have the cinder crane operator this morning, however cinder crane operator did not see him until late afternoon Yesterday he reported to cinder crane operator that he actually saw people in his room Psychiatry also contacted about possible delirium/?continuous alcohol withdrawal/underlying psychiatry disorder ONDINA , hyperkalemia, proteinuria, - nephrology following closely Pt Denies chest pain, dyspnea, dizziness Will benefit from rehab placement once medically stable Review of Systems Review of Systems: All systems reviewed & are unremarkable except as noted in Subjective Physical Exam Physical Exam: General Appearance: obese male, in no apparent distress Head: normocephalic, Atraumatic Eyes: normal inspection, EOMI Neck: supple, Trachea midline Respiratory/Chest: Normal breath sounds, CTA, No accessory muscle use Cardiovascular: S1, S2, No murmur Abdomen/GI:Soft, Non tender, Bowel sounds present Extremities/Musculoskeletal:normal inspection, B/L LE edema (much improved), +Erythema (seems to be somewhat chronic from likely venous stasis) LUE wound Neurologic/Psych:AAOX3, grossly no focal neurological deficits Skin: normal color, warm Results & Data Results & Data ([facility]) Vital Signs (Past 12 Hours) Vital Signs Temp Pulse Pulse Resp BP BP Pulse Ox 10/23/20 07:16 36.6 C 63 18 198/109 H 95 10/23/20 04:00 36.5 C 66 18 129/84 94 10/23/20 01:09 60 10/22/20 23:32 36.6 C 64 18 117/79 97 Laboratory Results 10/23/20 10/23/20 10/23/20 Range/Units 07:25 06:39 06:39 WBC 4.28 L (4.8-10.8) K/uL RBC 4.28 L (4.7-6.1) M/uL Hgb 13.6 L (14.0-18.0) g/dL Hct 41.8 L (42-52) % MCV 97.7 (80-100) fL MCH 31.8 (25-34) pg MCHC 32.5 (32-36) g/dL RDW Std Deviation 46.7 H (36.4-46.3) fL RDW Coeff of Alberto 13.0 (11.5-14.5) % Plt Count 307 (130-400) K/uL MPV 10.6 H (7.4-10.4) fL Immature Gran % (Auto) % Neut % (Auto) % Lymph % (Auto) % Sac % (Auto) % Eos % (Auto) % Baso % (Auto) % Neut # (Auto) (1.4-6.5) K/uL Lymph # (Auto) (1.2-3.4) K/uL Sac # (Auto) (0.11-0.59) K/uL Eos # (Auto) (0-0.5) K/uL Baso # (Auto) (0-0.2) K/uL Immature Gran # (Auto) (0.00-0.02) K/uL Sodium 135 L (136-145) mmol/L Potassium 4.5 D (3.5-5.1) mmol/L Chloride 102 (98-107) mmol/L Carbon Dioxide 28 (21-32) mmol/L Anion Gap 4.0 (3-11) BUN 52 H (7-18) mg/dl Creatinine 1.94 H (0.6-1.4) mg/dl Est Cr Clr Drug Dosing 52.5 ml/min Est GFR ( Amer) 43.6 ml/min Est GFR (Non-Af Amer) 37.6 ml/min BUN/Creatinine Ratio 27.0 H (10-20) Glucose 268 H (70-99) mg/dl POC Glucose 263 H (70-99) mg/dl Calcium 9.4 (8.5-10.1) mg/dl Total Creatine Kinase (39-308) U/L Urine Color Urine Appearance (Clear) Urine pH (4.5-7.5) Ur Specific Woodlyn (1.000-1.030) Urine Protein (Negative) Urine Glucose (UA) (Negative) Urine Ketones (Negative) Urine Blood (Negative) Urine Nitrite (Negative) Urine Bilirubin (Negative) Urine Urobilinogen (Negative) Ur Leukocyte Esterase (Negative) Urine WBC (Auto) (0-5) /hpf Urine RBC (Auto) (0-4) /hpf U Hyaline Cast (Auto) (0-5) /lpf U Epithel Cells (Auto) (0-5) /lpf Urine Bacteria (Auto) (Negative) Ur Random Creatinine mg/dl U Random Total Protein (0-11.9) mg/dl Protein/Creatinin Ratio (0-0.2) 10/22/20 10/22/20 10/22/20 Range/Units 20:41 20:41 20:16 WBC (4.8-10.8) K/uL RBC (4.7-6.1) M/uL Hgb (14.0-18.0) g/dL Hct (42-52) % MCV (80-100) fL MCH (25-34) pg MCHC (32-36) g/dL RDW Std Deviation (36.4-46.3) fL RDW Coeff of Alberto (11.5-14.5) % Plt Count (130-400) K/uL MPV (7.4-10.4) fL Immature Gran % (Auto) % Neut % (Auto) % Lymph % (Auto) % Sac % (Auto) % Eos % (Auto) % Baso % (Auto) % Neut # (Auto) (1.4-6.5) K/uL Lymph # (Auto) (1.2-3.4) K/uL Sac # (Auto) (0.11-0.59) K/uL Eos # (Auto) (0-0.5) K/uL Baso # (Auto) (0-0.2) K/uL Immature Gran # (Auto) (0.00-0.02) K/uL Sodium (136-145) mmol/L Potassium (3.5-5.1) mmol/L Chloride (98-107) mmol/L Carbon Dioxide (21-32) mmol/L Anion Gap (3-11) BUN (7-18) mg/dl Creatinine (0.6-1.4) mg/dl Est Cr Clr Drug Dosing ml/min Est GFR ( Amer) ml/min Est GFR (Non-Af Amer) ml/min BUN/Creatinine Ratio (10-20) Glucose (70-99) mg/dl POC Glucose 160 H (70-99) mg/dl Calcium (8.5-10.1) mg/dl Total Creatine Kinase (39-308) U/L Urine Color Yellow Urine Appearance Clear (Clear) Urine pH 7.0 (4.5-7.5) Ur Specific Woodlyn 1.009 (1.000-1.030) Urine Protein 2+ H (Negative) Urine Glucose (UA) Negative (Negative) Urine Ketones Negative (Negative) Urine Blood Negative (Negative) Urine Nitrite Negative (Negative) Urine Bilirubin Negative (Negative) Urine Urobilinogen Negative (Negative) Ur Leukocyte Esterase Negative (Negative) Urine WBC (Auto) 1-5 (0-5) /hpf Urine RBC (Auto) 0-4 (0-4) /hpf U Hyaline Cast (Auto) 1-5 (0-5) /lpf U Epithel Cells (Auto) 10-20 H (0-5) /lpf Urine Bacteria (Auto) Negative (Negative) Ur Random Creatinine 21.5 mg/dl U Random Total Protein 95.4 H (0-11.9) mg/dl Protein/Creatinin Ratio 4.4 H (0-0.2) 10/22/20 10/22/20 10/22/20 Range/Units 17:27 16:25 11:22 WBC 3.94 L (4.8-10.8) K/uL RBC 4.08 L (4.7-6.1) M/uL Hgb 12.9 L (14.0-18.0) g/dL Hct 40.2 L (42-52) % MCV 98.5 (80-100) fL MCH 31.6 (25-34) pg MCHC 32.1 (32-36) g/dL RDW Std Deviation 47.1 H (36.4-46.3) fL RDW Coeff of Alberto 13.1 (11.5-14.5) % Plt Count 255 (130-400) K/uL MPV 10.0 (7.4-10.4) fL Immature Gran % (Auto) 0.3 % Neut % (Auto) 41.6 % Lymph % (Auto) 39.3 % Sac % (Auto) 16.8 % Eos % (Auto) 1.5 % Baso % (Auto) 0.5 % Neut # (Auto) 1.64 (1.4-6.5) K/uL Lymph # (Auto) 1.55 (1.2-3.4) K/uL Sac # (Auto) 0.66 H (0.11-0.59) K/uL Eos # (Auto) 0.06 (0-0.5) K/uL Baso # (Auto) 0.02 (0-0.2) K/uL Immature Gran # (Auto) 0.01 (0.00-0.02) K/uL Sodium 138 (136-145) mmol/L Potassium 5.3 H (3.5-5.1) mmol/L Chloride 107 (98-107) mmol/L Carbon Dioxide 29 (21-32) mmol/L Anion Gap 2.0 L (3-11) BUN 49 H (7-18) mg/dl Creatinine 1.92 H (0.6-1.4) mg/dl Est Cr Clr Drug Dosing 53.7 ml/min Est GFR ( Amer) 44.1 ml/min Est GFR (Non-Af Amer) 38.1 ml/min BUN/Creatinine Ratio 25.7 H (10-20) Glucose 234 H (70-99) mg/dl POC Glucose 188 H (70-99) mg/dl Calcium 9.5 (8.5-10.1) mg/dl Total Creatine Kinase (39-308) U/L Urine Color Urine Appearance (Clear) Urine pH (4.5-7.5) Ur Specific Woodlyn (1.000-1.030) Urine Protein (Negative) Urine Glucose (UA) (Negative) Urine Ketones (Negative) Urine Blood (Negative) Urine Nitrite (Negative) Urine Bilirubin (Negative) Urine Urobilinogen (Negative) Ur Leukocyte Esterase (Negative) Urine WBC (Auto) (0-5) /hpf Urine RBC (Auto) (0-4) /hpf U Hyaline Cast (Auto) (0-5) /lpf U Epithel Cells (Auto) (0-5) /lpf Urine Bacteria (Auto) (Negative) Ur Random Creatinine mg/dl U Random Total Protein (0-11.9) mg/dl Protein/Creatinin Ratio (0-0.2) 10/22/20 10/22/20 Range/Units 11:22 11:21 WBC (4.8-10.8) K/uL RBC (4.7-6.1) M/uL Hgb (14.0-18.0) g/dL Hct (42-52) % MCV (80-100) fL MCH (25-34) pg MCHC (32-36) g/dL RDW Std Deviation (36.4-46.3) fL RDW Coeff of Alberto (11.5-14.5) % Plt Count (130-400) K/uL MPV (7.4-10.4) fL Immature Gran % (Auto) % Neut % (Auto) % Lymph % (Auto) % Sac % (Auto) % Eos % (Auto) % Baso % (Auto) % Neut # (Auto) (1.4-6.5) K/uL Lymph # (Auto) (1.2-3.4) K/uL Sac # (Auto) (0.11-0.59) K/uL Eos # (Auto) (0-0.5) K/uL Baso # (Auto) (0-0.2) K/uL Immature Gran # (Auto) (0.00-0.02) K/uL Sodium 142 D (136-145) mmol/L Potassium 4.7 D (3.5-5.1) mmol/L Chloride 107 (98-107) mmol/L Carbon Dioxide 31 (21-32) mmol/L Anion Gap 4.0 (3-11) BUN 45 H (7-18) mg/dl Creatinine 1.86 H (0.6-1.4) mg/dl Est Cr Clr Drug Dosing 55.4 ml/min Est GFR ( Amer) 45.8 ml/min Est GFR (Non-Af Amer) 39.6 ml/min BUN/Creatinine Ratio 24.2 H (10-20) Glucose 159 H (70-99) mg/dl POC Glucose 237 H (70-99) mg/dl Calcium 9.6 (8.5-10.1) mg/dl Total Creatine Kinase 149 (39-308) U/L Urine Color Urine Appearance (Clear) Urine pH (4.5-7.5) Ur Specific Woodlyn (1.000-1.030) Urine Protein (Negative) Urine Glucose (UA) (Negative) Urine Ketones (Negative) Urine Blood (Negative) Urine Nitrite (Negative) Urine Bilirubin (Negative) Urine Urobilinogen (Negative) Ur Leukocyte Esterase (Negative) Urine WBC (Auto) (0-5) /hpf Urine RBC (Auto) (0-4) /hpf U Hyaline Cast (Auto) (0-5) /lpf U Epithel Cells (Auto) (0-5) /lpf Urine Bacteria (Auto) (Negative) Ur Random Creatinine mg/dl U Random Total Protein (0-11.9) mg/dl Protein/Creatinin Ratio (0-0.2) Medications Administered Current Inpatient Medications Acetaminophen (Acetaminophen 325 Mg Tab) 650 mg PO Q4H PRN PRN Reason: Pain or Fever Stop: 11/13/20 06:17 Last Admin: 10/19/20 04:50 Dose: 650 mg Documented by: Albuterol (Albuterol 0.083% Nebu Soln 3 Ml Vial) 2.5 mg INH QID PRN PRN Reason: Shortness Of Breath Or Wheezing Stop: 11/13/20 06:17 Amlodipine Besylate (Amlodipine Besylate 5 Mg Tab) 5 mg PO QAM [facility] Stop: 11/19/20 09:29 Last Admin: 10/22/20 08:00 Dose: 5 mg Documented by: Aspirin (Aspirin 81 Mg Ectab) 81 mg PO QAM [facility] Stop: 11/13/20 08:59 Last Admin: 10/22/20 08:01 Dose: 81 mg Documented by: Atorvastatin Calcium (Atorvastatin 40 Mg Tab) 80 mg PO DAILY [facility] Stop: 11/13/20 08:59 Last Admin: 10/22/20 08:00 Dose: 80 mg Documented by: Buprenorphine/Naloxone (Buprenorphine/Naloxone 8/2 Mg Tab) 1 tab SL BID [facility] Stop: 11/13/20 08:59 Last Admin: 10/22/20 20:40 Dose: 1 tab Documented by: Cefdinir (Cefdinir 300 Mg Cap) 300 mg PO BID [facility]; Protocol Stop: 10/23/20 20:59 Last Admin: 10/22/20 20:41 Dose: 300 mg Documented by: Clonidine HCl (Clonidine Hcl 0.1 Mg Tab) 0.1 mg PO Q8H PRN PRN Reason: Hypertension Stop: 11/16/20 08:20 Last Admin: 10/21/20 10:00 Dose: 0.1 mg Documented by: Clotrimazole (Clotrimazole 1% Cr 15 Gm Tube) 1 appln TOP BID [facility] Stop: 11/13/20 08:59 Last Admin: 10/22/20 20:41 Dose: 1 appln Documented by: Cyanocobalamin (Cyanocobalamin 500 Mcg Tablet (Vitamin B-12)) 1,000 mcg PO DAILY [facility] Stop: 11/13/20 08:59 Last Admin: 10/22/20 07:58 Dose: 1,000 mcg Documented by: Dextrose (Dextrose 50% 50 Ml Syringe) 25 - 50 ml IV UD PRN; Protocol PRN Reason: Hypoglycemia Protocol Stop: 11/13/20 06:59 Folic Acid (Folic Acid 1 Mg Tab) 1 mg PO QAM [facility] Stop: 11/13/20 08:59 Last Admin: 10/22/20 07:59 Dose: 1 mg Documented by: Gabapentin (Gabapentin 300 Mg Cap) 300 mg PO BID [facility] Stop: 11/13/20 08:59 Last Admin: 10/22/20 20:42 Dose: 300 mg Documented by: Glucagon (Glucagon For Inj 1 Mg Vial) 1 mg IM UD PRN; Protocol PRN Reason: Hypoglycemia Protocol Stop: 11/13/20 06:59 Glucose (Glucose 40% Gel 15 Gm Tube) 15 - 30 gm PO UD PRN; Protocol PRN Reason: Hypoglycemia Protocol Stop: 11/13/20 06:59 Glucose (Glucose 10 Tabs/Tube) 4 - 8 tabs PO UD PRN; Protocol PRN Reason: Hypoglycemia Protocol Stop: 11/13/20 06:59 Heparin Sodium (Porcine) (Heparin Sod 5,000 Unit/0.5 Ml Vial) 7,500 units SQ Q8 [facility] Stop: 11/13/20 06:17 Last Admin: 10/23/20 06:27 Dose: 7,500 units Documented by: Insulin Aspart (Insulin Aspart 100 Units/Ml 3 Ml Pen) 0 units SC ACHS [facility] Stop: 11/13/20 07:29 Last Admin: 10/22/20 20:42 Dose: 1 units Documented by: Insulin Detemir (Insulin Detemir Flexpen/Flex Touch 100 Units/Ml 3ml) 50 units SQ QAM [facility] Stop: 11/22/20 08:59 Lisinopril (Lisinopril 40 Mg Tab) 40 mg PO QAM [facility] Stop: 11/13/20 08:59 Last Admin: 10/16/20 09:06 Dose: 40 mg Documented by: Lorazepam (Lorazepam 1 Mg Tab) 1 mg PO PRN PRN; Protocol PRN Reason: EtoH Withdrawal AWSS 6-10 Magnesium Oxide (Magnesium Oxide 400 Mg Tab) [facility] Stop: 11/13/20 08:59 Last Admin: 10/22/20 07:59 Dose: 400 mg Documented by: Metoprolol Succinate (Metoprolol Succ 25mg Ext Rel Tab) 75 mg PO QAM [facility] Stop: 11/17/20 04:44 Last Admin: 10/22/20 10:05 Dose: 75 mg Documented by: Miscellaneous (Urea~Order Awaiting Action) 1 ea N/A QS [facility] Stop: 11/13/20 07:59 Last Admin: 10/23/20 00:06 Dose: Not Given Documented by: Shilacellaneous (Remove Nicoderm Patch) 1 ea N/A DAILY@0859 [facility] Stop: 11/14/20 08:58 Last Admin: 10/22/20 07:53 Dose: 1 ea Documented by: Miscellaneous (Carbohydrates For Hypoglycemia ) 15 - 30 gm PO UD PRN PRN Reason: Hypoglycemia Treatment Stop: 11/13/20 06:59 Last Admin: 10/15/20 17:00 Dose: 15 gm Documented by: Shilacellaneous Information (Pharmacy Glycemic Mgmt Consult) 1 ea N/A UD PRN PRN Reason: Consult Stop: 11/14/20 09:35 Multivitamins/Minerals (Cerovite Adv Formula Tab) [facility] Stop: 11/13/20 08:59 Last Admin: 10/22/20 07:58 Dose: 1 tab Documented by: Nicotine (Nicotine 21 Mg/24 Hr Tdsy) 21 mg TD M [facility] Stop: 11/13/20 08:59 Last Admin: 10/22/20 07:56 Dose: 21 mg Documented by: Nitroglycerin (Nitroglycerin Sl 0.4 Mg/Tab Tab) 0.4 mg SL UD PRN PRN Reason: Chest Pain Stop: 11/13/20 06:17 Ondansetron HCl (Ondansetron Inj 2 Mg/Ml 2 Ml Vial) 4 mg IV Q6H PRN PRN Reason: Nausea Stop: 11/13/20 06:17 Last Admin: 10/14/20 21:19 Dose: 4 mg Documented by: Patiromer (Patiromer Calcium Sorbitex 8.4 Gm Pack) 8.4 gm PO DAILY@1100 [facility] Stop: 11/21/20 10:59 Last Admin: 10/22/20 13:24 Dose: 8.4 gm Documented by: Polyethylene Glycol (Polyethylene (Miralax) 17 Gm Pack) 17 gm PO DAILY PRN PRN Reason: Constipation Stop: 11/13/20 06:17 Thiamine HCl (Thiamine Hcl 100 Mg Tab) 100 mg PO QAM [facility] Stop: 11/13/20 08:59 Last Admin: 10/22/20 07:57 Dose: 100 mg Documented by: Venlafaxine HCl (Venlafaxine Hcl Xr 150 Mg Capxr) 150 mg PO QAM [facility] Stop: 11/13/20 08:59 Last Admin: 10/22/20 07:57 Dose: 150 mg Documented by: (1) Alcohol intoxication Complication of substance-induced condition: with unspecified complication Qualified Code(s): F10.929 - Alcohol use, unspecified with intoxication, unspecified
[2020-10-23] MEDS: INSULIN ASPART 100 UNITS/ML 3 ML PEN SC SCH ×4 (09:20→20:51)
[2020-10-23] MEDS: INSULIN DETEMIR FLEXPEN/FLEX TOUCH 100 UNITS/ML 3ML SQ SCH (09:22)
[2020-10-23] MEDS: ATORVASTATIN 40 MG TAB PO SCH (09:23)
[2020-10-23] MEDS: THIAMINE HCL 100 MG TAB PO SCH (09:23)
[2020-10-23] MEDS: FOLIC ACID 1 MG TAB PO SCH (09:23)
[2020-10-23] MEDS: VENLAFAXINE HCL XR 150 MG CAPXR PO SCH (09:23)
[2020-10-23] MEDS: CLOTRIMAZOLE 1% CR 15 GM TUBE TOP SCH ×2 (09:23→20:47)
[2020-10-23] MEDS: CYANOCOBALAMIN 500 MCG TABLET (VITAMIN B-12) PO SCH (09:24)
[2020-10-23] MEDS: GABAPENTIN 300 MG CAP PO SCH ×2 (09:24→20:51)
[2020-10-23] MEDS: amLODIPine BESYLATE 5 MG TAB PO SCH (09:24)
[2020-10-23] MEDS: CEFDINIR 300 MG CAP PO SCH (09:24)
[2020-10-23] MEDS: METOPROLOL SUCC 25MG EXT REL TAB PO SCH (09:25)
[2020-10-23] MEDS: ASPIRIN 81 MG ECTAB PO SCH (09:25)
[2020-10-23] MEDS: MAGNESIUM OXIDE 400 MG TAB PO SCH (09:25)
[2020-10-23] MEDS: BUPRENORPHINE/NALOXONE 8/2 MG TAB SL SCH ×2 (09:30→20:45)
[2020-10-23] MEDS: CEROVITE ADV FORMULA TAB PO SCH (09:34)
[2020-10-23] MEDS: NICOTINE 21 MG/24 HR TDSY TD SCH (11:58)
[2020-10-23] MEDS: PATIROMER CALCIUM SORBITEX 8.4 GM PACK PO SCH (14:06)
[2020-10-23] MEDS ORDERED: LORazepam 0.5 MG TAB PO SCH (16:30)
--- NOTE | 2020-10-23 16:47 | Nephrology Progress Note ---
Date of Service October 23, 2020 Assessment & Plan (1) Hyperkalemia: Plan: resolved >> cause unclear as he has been off of ACEI for several days before this occurred; CK is within normal limits -continue patiromer, low K diet; unlikely he could continue patiromer as OP >if labs ok tomorrow, resume lisinopril (2) ONDINA (acute kidney injury): Plan: baseline creatinine less than one; was at baseline on presentation. peak value to date 2.1 on 10/22; renal u/s unremarkable; -daily BMP -look to resume ACEI when approp (3) Proteinuria: Plan: 4.4 gm proteinuria even w/ controlled bp >> concern for nephrotic syndrome, likeliest cause is diabetic nephropathy/hypertensive nephrosclerosis -resume ACEI next 1-2 days adn will likely need diuretic too -nephrotic syndrome panel ordered for AM labs plus a 24 hr urine (4) Bilateral edema of lower extremity: Plan: not florid nephrotic syndrome but nephrotic range proteinuria and low serum albumin at admission; though edema is much improved compared to admission even w/o diuretic (5) HTN (hypertension): Plan: SBP is quite labile - ranges 110s-190s past 24 hrs, mostly elevated -continue to hold ACEI -cont CCB medium dose, toprol -AVOID standing clonidine -consider hydralazine if needed Admission and Anticipated Discharge Date Admission Date: October 14, 2020 Subjective tells me 2 providers both claiming to be "head kidney doctors" were already in to see him today and that he no longer needs FR; edema cont to improve; no SOB; no voiding concerns but for some occasional pink tinged urine Review of Systems Review of Systems: All systems reviewed & are unremarkable except as noted in Subjective Physical Exam Constitutional: well developed, well nourished and + obese; no acute distress Eyes: EOM intact bilaterally ENMT: Ears: no external ear abnormality Nose: no external nose abnormality Mouth: + dry oral mucous membranes Neck: no nuchal rigidity Respiratory: normal respiratory effort Auscultation: + diminished lung sounds Cardiovascular: Rate/Rhythm: regular rate and regular rhythm Extremities: + edema (trace indurated BLE) Gastrointestinal (Abdomen): Inspection/Auscultation: normal bowel sounds Percussion/Palpation: abdomen soft; abdomen nontender Musculoskeletal: Extremities: strength 5/5 throughout Skin: no rashes, warm and dry Psychiatric: Orientation: alert and oriented x 3 Apperance: + disheveled Eye Contact: + fair eye contact Speech: + pressured speech Results & Data ([facility]) Vital Signs (Past 12 Hours) Vital Signs Temp Pulse Pulse Resp BP BP Pulse Ox 10/23/20 15:30 37 C 64 16 127/81 93 10/23/20 11:14 36.5 C 66 18 126/74 94 10/23/20 08:00 58 L 10/23/20 07:16 36.6 C 63 18 198/109 H 95 Laboratory Results 10/23/20 06:39 10/23/20 06:39 4 .4 gm proteinuria; has 2+ dipstick proteinuria else repeat study is bland
[2020-10-23] MEDS ORDERED: POLYETHYLENE (MIRALAX) 17 GM PACK PO STA (17:39)
--- NOTE | 2020-10-23 18:32 | Electrocardiogram Report ---
Test Reason : Blood Pressure : / mmHG Vent. Rate : 067 BPM Atrial Rate : 067 BPM P-R Int : 192 ms QRS Dur : 106 ms QT Int : 416 ms P-R-T Axes : 040 -09 051 degrees QTc Int : 439 ms Normal sinus rhythm Normal ECG When compared with ECG of 13-OCT-2020 23:37, QT has shortened Confirmed by Dandre Lea ([id number]) on 10/23/2020 6:32:05 PM Referred By: REFERRED SELF Confirmed By:Dandre Lea
[2020-10-23] MEDS: DOCUSATE SODIUM 100 MG CAP PO SCH (20:45)
[2020-10-24] MEDS: HEPARIN SOD 5,000 UNIT/0.5 ML VIAL SQ SCH ×3 (06:23→20:32)
[2020-10-24 07:54] LABS: Albumin Level 2.5 gm/dl (3.4-5.0); BUN Creatinine Ratio 29.4 (10-20); Bilirubin Direct 0.2 mg/dl (0-0.2); Calcium 9.5 mg/dl (8.5-10.1); Est GFR (Non-African American) 41.4 ml/min; Potassium 4.8 mmol/L (3.5-5.1)
[2020-10-24 07:57] LABS: Bilirubin,Total 0.5 mg/dl (0.2-1); Total Protein 7.7 gm/dl (6.4-8.2)
[2020-10-24] MEDS: INSULIN DETEMIR FLEXPEN/FLEX TOUCH 100 UNITS/ML 3ML SQ SCH (09:25)
[2020-10-24] MEDS: INSULIN ASPART 100 UNITS/ML 3 ML PEN SC SCH ×4 (09:26→21:09)
[2020-10-24] MEDS: amLODIPine BESYLATE 5 MG TAB PO SCH (09:30)
[2020-10-24] MEDS: GABAPENTIN 300 MG CAP PO SCH ×2 (09:31→20:33)
[2020-10-24] MEDS: ATORVASTATIN 40 MG TAB PO SCH (09:31)
[2020-10-24] MEDS: MAGNESIUM OXIDE 400 MG TAB PO SCH (09:32)
[2020-10-24] MEDS: CYANOCOBALAMIN 500 MCG TABLET (VITAMIN B-12) PO SCH (09:32)
[2020-10-24] MEDS: NICOTINE 21 MG/24 HR TDSY TD SCH (09:33)
[2020-10-24] MEDS: CEROVITE ADV FORMULA TAB PO SCH (09:33)
[2020-10-24] MEDS: THIAMINE HCL 100 MG TAB PO SCH (09:33)
[2020-10-24] MEDS: ASPIRIN 81 MG ECTAB PO SCH (09:33)
[2020-10-24] MEDS: FOLIC ACID 1 MG TAB PO SCH (09:34)
[2020-10-24] MEDS: VENLAFAXINE HCL XR 150 MG CAPXR PO SCH (09:34)
[2020-10-24] MEDS: DOCUSATE SODIUM 100 MG CAP PO SCH ×2 (09:34→20:33)
[2020-10-24] MEDS: METOPROLOL SUCC 25MG EXT REL TAB PO SCH (09:34)
[2020-10-24] MEDS: BUPRENORPHINE/NALOXONE 8/2 MG TAB SL SCH ×2 (09:39→21:15)
[2020-10-24] MEDS: CLOTRIMAZOLE 1% CR 15 GM TUBE TOP SCH ×2 (09:40→20:33)
--- NOTE | 2020-10-24 10:08 | Hospitalist Progress Note ---
Date of Service October 24, 2020 Assessment & Plan (1) Alcohol intoxication: Plan: Patient is a 55 yr male presents with lower extremity edema and alcoholism. B/L Lower extremity edema H/O Chronic LE edema DD: Hypoalbuminemia, Diastolic CHF, Cellulitis, Lymphedema, venous stasis Left arm wound -ECHO: EF 55 to 60%. Moderate concentric LVH. Grade 1 diastolic dysfunction. -Venous Doppler:No evidence of deep venous thrombus within the bilateral lower extremities. -Wound Cx:MSSA Received IV Lasix Monitor Volume status Dietitian consulted Continue Rocephin Day #5>> Transitioned to PO Abx Leg edema much improved Advised to follow-up with cardiology as outpatient Then held diuresis due to ONDINA Plan to resume PO diuretics as able Advised to follow up with Cardiology upon discharge Acute Kidney Injury Cr:1.8 -> 2.1 Held diuresis Avoid nephrotoxic agents as able Monitor renal function Given ONDINA and hyperkalemia nephrology consulted hx of proteinuria, currently 4.4 g proteinuria Nephrotic syndrome work-up ordered by nephrology Appreciate input from nephrology Also, per nephrology, no CKD, however history of proteinuria Hyperkalemia Low potassium diet, hold losartan Potassium 5.3 -> 6.2 ordered Kayexalate, IV insulin Nephrology consulted for further eval and treatment Started on patiromer for hyperkalemia, potassium now normalized, patiromer stopped (10/24) Visual hallucinations Patient admitted to the hospital and treated for alcohol withdrawal Believed he would be out of the window for alcohol withdrawal, however there is a possibility Also possible delirium or underlying psychiatric disorder Contacted and consulted psychiatry for further evaluation Outpt follow up w/ psychiatry recommended, no medication changes recommended at this time Mild elevation in troponin H/O chronic elevation of troponin Denies chest pain ECHO as above EKG unchanged from prior Hypomagnesemia replace electrolytes as needed Alcoholism Continue thiamine, folic acid Completed Librium protocol Hold Ativan for Excess sedation Needs rehab placement Tobacco abuse: Nicotine patch. DM II HbA1c 8.3 Continue insulin therapy Monitor BGs Peripheral neuropathy: Continue gabapentin Hypertensive Urgency Hypertension BP Variable Held lisinopril due to Hyperkalemia Continue metoprolol Added Amlodipine stop Clonidine PRN , per nephrology, and instead use hydralazine prn CAD S/P Stent : Continue aspirin, statin, Metoprolol Depression: Continue Effexor Chronic pain: on Suboxone. Obstructive sleep apnea: noncompliant with CPAP. DVT Px: Heparin SQ Code Status Full Code Disposition Needs Rehab placement Admission and Anticipated Discharge Date Admission Date: October 14, 2020 Subjective Patient is seen and examined at bedside Reports his lower extremity edema is much improved Tells me he is able to ambulate around the room He reports that he again "saw 2 heads of nephrology department" - I explained that they were not real He says sometimes after he stops drinking he sees people but usually he can not talk to them - they do not talk back but these "nephrologists talked to him" Psychiatry also contacted about possible delirium/?continuous alcohol withdrawal/underlying psychiatry disorder ONDINA , hyperkalemia, proteinuria, - nephrology following closely Pt Denies chest pain, shortness of breath, dizziness Will benefit from rehab placement once medically stable Review of Systems Review of Systems: All systems reviewed & are unremarkable except as noted in Subjective Physical Exam Physical Exam: General Appearance: obese male, in no apparent distress Head: normocephalic, Atraumatic Eyes: normal inspection, EOMI Neck: supple, Trachea midline Respiratory/Chest: Normal breath sounds, CTA, No accessory muscle use Cardiovascular: S1, S2, No murmur Abdomen/GI:Soft, Non tender, Bowel sounds present Extremities/Musculoskeletal:normal inspection, B/L LE edema (much improved), +Erythema (seems to be somewhat chronic from likely venous stasis) LUE wound Neurologic/Psych:AAOX3, grossly no focal neurological deficits Skin: normal color, warm Results & Data Results & Data ([facility]) Vital Signs (Past 12 Hours) Vital Signs Temp Pulse Pulse Resp BP BP Pulse Ox 10/24/20 08:00 63 10/24/20 07:36 36.4 C L 62 18 178/104 H 95 10/24/20 04:05 36.6 C 59 L 16 159/95 H 93 10/24/20 00:24 61 10/23/20 22:32 36.5 C 62 18 160/91 H 94 Laboratory Results 10/24/20 10/24/20 10/24/20 Range/Units 07:45 07:06 07:06 Sodium (136-145) mmol/L Potassium (3.5-5.1) mmol/L Chloride (98-107) mmol/L Carbon Dioxide (21-32) mmol/L Anion Gap (3-11) BUN (7-18) mg/dl Creatinine (0.6-1.4) mg/dl Est Cr Clr Drug Dosing ml/min Est GFR ( Amer) ml/min Est GFR (Non-Af Amer) ml/min BUN/Creatinine Ratio (10-20) Glucose (70-99) mg/dl POC Glucose 150 H (70-99) mg/dl Calcium (8.5-10.1) mg/dl Total Bilirubin (0.2-1) mg/dl Direct Bilirubin (0-0.2) mg/dl AST (15-37) U/L ALT (12-78) U/L Alkaline Phosphatase (45-117) U/L Total Protein (6.4-8.2) gm/dl Total Protein (PEP) Pending Albumin (3.4-5.0) gm/dl Albumin (PEP) Pending Fwpyq-7-Rizxqvkdw Pending Mgkpi-8-Vxwrurasq Pending Isch-9-Gytjwkpe Pending Gjas-5-Vzdhgpqc Pending Gamma Globulins Pending Monoclonal Peak 3 Pending Ser Monoclonl Protein Pending Ser Monoclonal Prot 2 Pending PEP Interpretation Pending Ur Creatinine 24 Hour Ur Total Protein 24 Hr Protein/Creat Ratio 24h Urine Albumin (%) U Jyphm-3-Gfcnunkb (%) U Jivzk-4-Kraayuez (%) U Beta Globulin (%) U Gamma Globulin (%) U Abnormal Prot Band 1 U Abnormal Prot Band 2 U Abnormal Prot Band 3 Urine PEP Interpret Urine Immunofixation DINH Screen Pending ANCA Pending Complement C3 Pending Complement C4 Pending Tot Complement (CH50) Pending Free [place] LC, Quant Pending Free Lambda LC, Quant Pending Free [place]/Lambda Ratio Pending Hep Bs Antigen Pending Hepatitis C Antibody Pending 10/24/20 10/23/20 10/23/20 Range/Units 07:06 20:49 20:08 Sodium 137 (136-145) mmol/L Potassium 4.8 (3.5-5.1) mmol/L Chloride 105 (98-107) mmol/L Carbon Dioxide 28 (21-32) mmol/L Anion Gap 4.0 (3-11) BUN 53 H (7-18) mg/dl Creatinine 1.79 H (0.6-1.4) mg/dl Est Cr Clr Drug Dosing 57.0 ml/min Est GFR ( Amer) 48.0 ml/min Est GFR (Non-Af Amer) 41.4 ml/min BUN/Creatinine Ratio 29.4 H (10-20) Glucose 170 H (70-99) mg/dl POC Glucose 165 H (70-99) mg/dl Calcium 9.5 (8.5-10.1) mg/dl Total Bilirubin 0.5 (0.2-1) mg/dl Direct Bilirubin 0.2 (0-0.2) mg/dl AST 128 H (15-37) U/L ALT 152 H (12-78) U/L Alkaline Phosphatase 122 H (45-117) U/L Total Protein 7.7 (6.4-8.2) gm/dl Total Protein (PEP) Albumin 2.5 L (3.4-5.0) gm/dl Albumin (PEP) Bxnta-5-Gfztdflpx Kqzym-9-Yfkftmykg Gpcy-2-Gljakgzv Zbww-4-Ftcenybb Gamma Globulins Monoclonal Peak 3 Ser Monoclonl Protein Ser Monoclonal Prot 2 PEP Interpretation Ur Creatinine 24 Hour Cancelled Ur Total Protein 24 Hr Cancelled Protein/Creat Ratio 24h Cancelled Urine Albumin (%) Cancelled U Sycyd-7-Xlkadyst (%) Cancelled U Upexb-8-Tykksqor (%) Cancelled U Beta Globulin (%) Cancelled U Gamma Globulin (%) Cancelled U Abnormal Prot Band 1 Cancelled U Abnormal Prot Band 2 Cancelled U Abnormal Prot Band 3 Cancelled Urine PEP Interpret Cancelled Urine Immunofixation Cancelled DINH Screen ANCA Complement C3 Complement C4 Tot Complement (CH50) Free [place] LC, Quant Free Lambda LC, Quant Free [place]/Lambda Ratio Hep Bs Antigen Hepatitis C Antibody 10/23/20 10/23/20 Range/Units 16:29 11:24 Sodium (136-145) mmol/L Potassium (3.5-5.1) mmol/L Chloride (98-107) mmol/L Carbon Dioxide (21-32) mmol/L Anion Gap (3-11) BUN (7-18) mg/dl Creatinine (0.6-1.4) mg/dl Est Cr Clr Drug Dosing ml/min Est GFR ( Amer) ml/min Est GFR (Non-Af Amer) ml/min BUN/Creatinine Ratio (10-20) Glucose (70-99) mg/dl POC Glucose 157 H 234 H (70-99) mg/dl Calcium (8.5-10.1) mg/dl Total Bilirubin (0.2-1) mg/dl Direct Bilirubin (0-0.2) mg/dl AST (15-37) U/L ALT (12-78) U/L Alkaline Phosphatase (45-117) U/L Total Protein (6.4-8.2) gm/dl Total Protein (PEP) Albumin (3.4-5.0) gm/dl Albumin (PEP) Nhxue-0-Qnkqadlif Botxq-2-Epzioqqsk Scvm-3-Qzlhvcyg Pocm-3-Jvrfkesq Gamma Globulins Monoclonal Peak 3 Ser Monoclonl Protein Ser Monoclonal Prot 2 PEP Interpretation Ur Creatinine 24 Hour Ur Total Protein 24 Hr Protein/Creat Ratio 24h Urine Albumin (%) U Syieq-4-Zakdowdz (%) U Wbvkz-1-Jcvztykw (%) U Beta Globulin (%) U Gamma Globulin (%) U Abnormal Prot Band 1 U Abnormal Prot Band 2 U Abnormal Prot Band 3 Urine PEP Interpret Urine Immunofixation DINH Screen ANCA Complement C3 Complement C4 Tot Complement (CH50) Free [place] LC, Quant Free Lambda LC, Quant Free [place]/Lambda Ratio Hep Bs Antigen Hepatitis C Antibody Medications Administered Current Inpatient Medications Acetaminophen (Acetaminophen 325 Mg Tab) 650 mg PO Q4H PRN PRN Reason: Pain or Fever Stop: 11/13/20 06:17 Last Admin: 10/19/20 04:50 Dose: 650 mg Documented by: Albuterol (Albuterol 0.083% Nebu Soln 3 Ml Vial) 2.5 mg INH QID PRN PRN Reason: Shortness Of Breath Or Wheezing Stop: 11/13/20 06:17 Amlodipine Besylate (Amlodipine Besylate 5 Mg Tab) 5 mg PO QAM [facility] Stop: 11/19/20 09:29 Last Admin: 10/24/20 09:30 Dose: 5 mg Documented by: Aspirin (Aspirin 81 Mg Ectab) 81 mg PO QAM [facility] Stop: 11/13/20 08:59 Last Admin: 10/24/20 09:33 Dose: 81 mg Documented by: Atorvastatin Calcium (Atorvastatin 40 Mg Tab) 80 mg PO DAILY [facility] Stop: 11/13/20 08:59 Last Admin: 10/24/20 09:31 Dose: 80 mg Documented by: Buprenorphine/Naloxone (Buprenorphine/Naloxone 8/2 Mg Tab) 1 tab SL BID [facility] Stop: 11/13/20 08:59 Last Admin: 10/24/20 09:39 Dose: 1 tab Documented by: Clonidine HCl (Clonidine Hcl 0.1 Mg Tab) 0.1 mg PO Q8H PRN PRN Reason: Hypertension Stop: 11/16/20 08:20 Last Admin: 10/21/20 10:00 Dose: 0.1 mg Documented by: Clotrimazole (Clotrimazole 1% Cr 15 Gm Tube) 1 appln TOP BID [facility] Stop: 11/13/20 08:59 Last Admin: 10/24/20 09:40 Dose: 1 appln Documented by: Cyanocobalamin (Cyanocobalamin 500 Mcg Tablet (Vitamin B-12)) 1,000 mcg PO DAILY [facility] Stop: 11/13/20 08:59 Last Admin: 10/24/20 09:32 Dose: 1,000 mcg Documented by: Dextrose (Dextrose 50% 50 Ml Syringe) 25 - 50 ml IV UD PRN; Protocol PRN Reason: Hypoglycemia Protocol Stop: 11/13/20 06:59 Docusate Sodium (Docusate Sodium 100 Mg Cap) 100 mg PO BID [facility] Stop: 11/22/20 20:59 Last Admin: 10/24/20 09:34 Dose: 100 mg Documented by: Folic Acid (Folic Acid 1 Mg Tab) 1 mg PO QAM [facility] Stop: 11/13/20 08:59 Last Admin: 10/24/20 09:34 Dose: 1 mg Documented by: Gabapentin (Gabapentin 300 Mg Cap) 300 mg PO BID [facility] Stop: 11/13/20 08:59 Last Admin: 10/24/20 09:31 Dose: 300 mg Documented by: Glucagon (Glucagon For Inj 1 Mg Vial) 1 mg IM UD PRN; Protocol PRN Reason: Hypoglycemia Protocol Stop: 11/13/20 06:59 Glucose (Glucose 40% Gel 15 Gm Tube) 15 - 30 gm PO UD PRN; Protocol PRN Reason: Hypoglycemia Protocol Stop: 11/13/20 06:59 Glucose (Glucose 10 Tabs/Tube) 4 - 8 tabs PO UD PRN; Protocol PRN Reason: Hypoglycemia Protocol Stop: 11/13/20 06:59 Heparin Sodium (Porcine) (Heparin Sod 5,000 Unit/0.5 Ml Vial) 7,500 units SQ Q8 [facility] Stop: 11/13/20 06:17 Last Admin: 10/24/20 06:23 Dose: 7,500 units Documented by: Insulin Aspart (Insulin Aspart 100 Units/Ml 3 Ml Pen) 0 units SC [facility] Stop: 11/13/20 07:29 Last Admin: 10/24/20 09:26 Dose: 6 units Documented by: Insulin Detemir (Insulin Detemir Flexpen/Flex Touch 100 Units/Ml 3ml) 50 units SQ [facility] Stop: 11/22/20 08:59 Last Admin: 10/24/20 09:25 Dose: 50 units Documented by: Lisinopril (Lisinopril 40 Mg Tab) 40 mg PO [facility] Stop: 11/13/20 08:59 Last Admin: 10/16/20 09:06 Dose: 40 mg Documented by: Lorazepam (Lorazepam 1 Mg Tab) 1 mg PO PRN PRN; Protocol PRN Reason: EtoH Withdrawal AWSS 6-10 Magnesium Oxide (Magnesium Oxide 400 Mg Tab) 400 mg PO [facility] Stop: 11/13/20 08:59 Last Admin: 10/24/20 09:32 Dose: 400 mg Documented by: Metoprolol Succinate (Metoprolol Succ 25mg Ext Rel Tab) 75 mg PO [facility] Stop: 11/17/20 04:44 Last Admin: 10/24/20 09:34 Dose: 75 mg Documented by: Miscellaneous (Urea~Order Awaiting Action) 1 ea N/A QS [facility] Stop: 11/13/20 07:59 Last Admin: 10/24/20 09:29 Dose: Not Given Documented by: Miscellaneous (Remove Nicoderm Patch) 1 ea N/A DAILY@0859 [facility] Stop: 11/14/20 08:58 Last Admin: 10/24/20 09:29 Dose: 1 ea Documented by: Miscellaneous (Carbohydrates For Hypoglycemia ) 15 - 30 gm PO UD PRN PRN Reason: Hypoglycemia Treatment Stop: 11/13/20 06:59 Last Admin: 10/15/20 17:00 Dose: 15 gm Documented by: Miscellaneous Information (Pharmacy Glycemic Mgmt Consult) 1 ea N/A UD PRN PRN Reason: Consult Stop: 11/14/20 09:35 Multivitamins/Minerals (Cerovite Adv Formula Tab) 1 tab PO [facility] Stop: 11/13/20 08:59 Last Admin: 10/24/20 09:33 Dose: 1 tab Documented by: Nicotine (Nicotine 21 Mg/24 Hr Tdsy) 21 mg TD [facility] [place] Stop: 11/13/20 08:59 Last Admin: 10/24/20 09:33 Dose: 21 mg Documented by: Nitroglycerin (Nitroglycerin Sl 0.4 Mg/Tab Tab) 0.4 mg SL UD PRN PRN Reason: Chest Pain Stop: 11/13/20 06:17 Ondansetron HCl (Ondansetron Inj 2 Mg/Ml 2 Ml Vial) 4 mg IV Q6H PRN PRN Reason: Nausea Stop: 11/13/20 06:17 Last Admin: 10/14/20 21:19 Dose: 4 mg Documented by: Patiromer (Patiromer Calcium Sorbitex 8.4 Gm Pack) 8.4 gm PO DAILY@1100 [facility] Stop: 11/21/20 10:59 Last Admin: 10/23/20 14:06 Dose: 8.4 gm Documented by: Polyethylene Glycol (Polyethylene (Miralax) 17 Gm Pack) 17 gm PO DAILY PRN PRN Reason: Constipation Stop: 11/13/20 06:17 Thiamine HCl (Thiamine Hcl 100 Mg Tab) [facility] [place] Stop: 11/13/20 08:59 Last Admin: 10/24/20 09:33 Dose: 100 mg Documented by: Venlafaxine HCl (Venlafaxine Hcl Xr 150 Mg Capxr) 150 mg PO QAM [facility] Stop: 11/13/20 08:59 Last Admin: 10/24/20 09:34 Dose: 150 mg Documented by: (1) Alcohol intoxication Complication of substance-induced condition: with unspecified complication Qualified Code(s): F10.929 - Alcohol use, unspecified with intoxication, unspecified
[2020-10-24] MEDS: cloNIDine HCL 0.1 MG TAB PO PRN (11:28)
[2020-10-24] MEDS: PATIROMER CALCIUM SORBITEX 8.4 GM PACK PO SCH (13:17)
--- NOTE | 2020-10-24 15:24 | Psychiatric Consultation ---
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 Admin: 10/22/20 15:18 Dose: Not Given Documented by: [id number] Admin: 10/22/20 07:34 Dose: Not Given Documented by: [id number] Admin: 10/21/20 23:36 Dose: Not Given Documented by: [id number] Admin: 10/21/20 17:10 Dose: Not Given Documented by: [id number] Admin: 10/21/20 07:57 Dose: 1 ea Documented by: [id number] Admin: 10/21/20 00:26 Dose: Not Given Documented by: [id number] Admin: 10/20/20 15:14 Dose: Not Given Documented by: [id number] Admin: 10/20/20 08:33 Dose: Not Given Documented by: [id number] Admin: 10/20/20 00:44 Dose: Not Given Documented by: [id number] Admin: 10/19/20 15:08 Dose: Not Given Documented by: [id number] Admin: 10/19/20 08:34 Dose: Not Given Documented by: [id number] Admin: 10/18/20 22:33 Dose: 1 ea Documented by: [id number] Admin: 10/18/20 14:45 Dose: Not Given Documented by: [id number] Admin: 10/18/20 07:40 Dose: Not Given Documented by: [id number] Admin: 10/18/20 03:24 Dose: Not Given Documented by: [id number] Admin: 10/17/20 17:14 Dose: Not Given Documented by: [id number] Admin: 10/17/20 17:09 Dose: Not Given Documented by: [id number] Admin: 10/17/20 05:31 Dose: 1 ea Documented by: [id number] Admin: 10/16/20 15:34 Dose: Not Given Documented by: [id number] Admin: 10/16/20 09:23 Dose: Not Given Documented by: [id number] Admin: 10/15/20 23:37 Dose: Not Given Documented by: [id number] Admin: 10/15/20 15:19 Dose: Not Given Documented by: [id number] Admin: 10/15/20 09:00 Dose: Not Given Documented by: [id number] Admin: 10/14/20 23:07 Dose: Not Given Documented by: [id number] Admin: 10/14/20 14:26 Dose: Not Given Documented by: [id number] Admin: 10/14/20 07:18 Dose: Not Given Documented by: [id number] Miscellaneous (Remove Nicoderm Patch) 1 ea N/A DAILY@0859 [facility] Stop: 11/14/20 08:58 Last Admin: 10/24/20 09:29 Dose: 1 ea Documented by: [id number] Admin: 10/23/20 09:25 Dose: 1 ea Documented by: [id number] Admin: 10/22/20 07:53 Dose: 1 ea Documented by: [id number] Admin: 10/21/20 07:57 Dose: 1 ea Documented by: [id number] Admin: 10/20/20 08:38 Dose: 1 ea Documented by: [id number] Admin: 10/19/20 08:25 Dose: 1 ea Documented by: [id number] Admin: 10/18/20 08:39 Dose: 1 ea Documented by: [id number] Admin: 10/17/20 09:26 Dose: 1 ea Documented by: [id number] Admin: 10/16/20 09:23 Dose: 1 ea Documented by: [id number] Admin: 10/15/20 08:53 Dose: 1 ea Documented by: [id number] Miscellaneous (Carbohydrates For Hypoglycemia ) 15 - 30 gm PO UD PRN PRN Reason: Hypoglycemia Treatment Stop: 11/13/20 06:59 Last Admin: 10/15/20 17:00 Dose: 15 gm Documented by: [id number] Admin: 10/15/20 16:39 Dose: 15 gm Documented by: [id number] Admin: 10/15/20 08:00 Dose: 15 gm Documented by: [id number] Multivitamins/Minerals (Cerovite Adv Formula Tab) 1 tab PO QAM [facility] Stop: 11/13/20 08:59 Last Admin: 10/24/20 09:33 Dose: 1 tab Documented by: [id number] Admin: 10/23/20 09:34 Dose: 1 tab Documented by: [id number] Admin: 10/22/20 07:58 Dose: 1 tab Documented by: [id number] Admin: 10/21/20 07:55 Dose: 1 tab Documented by: [id number] Admin: 10/20/20 08:37 Dose: 1 tab Documented by: [id number] Admin: 10/19/20 08:29 Dose: 1 tab Documented by: [id number] Admin: 10/18/20 08:37 Dose: 1 tab Documented by: [id number] Admin: 10/17/20 09:24 Dose: 1 tab Documented by: [id number] Admin: 10/16/20 09:07 Dose: 1 tab Documented by: [id number] Admin: 10/15/20 08:48 Dose: 1 tab Documented by: [id number] Admin: 10/14/20 07:33 Dose: 1 tab Documented by: [id number] Nicotine (Nicotine 21 Mg/24 Hr Tdsy) 21 mg TD QAM [facility] Stop: 11/13/20 08:59 Last Admin: 10/24/20 09:33 Dose: 21 mg Documented by: [id number] Admin: 10/23/20 11:58 Dose: 21 mg Documented by: [id number] Admin: 10/22/20 07:56 Dose: 21 mg Documented by: [id number] Admin: 10/21/20 07:55 Dose: 21 mg Documented by: [id number] Admin: 10/20/20 08:36 Dose: 21 mg Documented by: [id number] Admin: 10/19/20 08:30 Dose: 21 mg Documented by: [id number] Admin: 10/18/20 08:39 Dose: 21 mg Documented by: [id number] Admin: 10/17/20 09:24 Dose: 21 mg Documented by: [id number] Admin: 10/16/20 09:06 Dose: 21 mg Documented by: [id number] Admin: 10/15/20 08:50 Dose: 21 mg Documented by: [id number] Admin: 10/14/20 07:32 Dose: 21 mg Documented by: [id number] Ondansetron HCl (Ondansetron Inj 2 Mg/Ml 2 Ml Vial) 4 mg IV Q6H PRN PRN Reason: Nausea Stop: 11/13/20 06:17 Last Admin: 10/14/20 21:19 Dose: 4 mg Documented by: [id number] Patiromer (Patiromer Calcium Sorbitex 8.4 Gm Pack) 8.4 gm PO DAILY@1100 [facility] Stop: 11/21/20 10:59 Last Admin: 10/24/20 13:17 Dose: 8.4 gm Documented by: [id number] Admin: 10/23/20 14:06 Dose: 8.4 gm Documented by: [id number] Admin: 10/22/20 13:24 Dose: 8.4 gm Documented by: [id number] Thiamine HCl (Thiamine Hcl 100 Mg Tab) 100 mg PO [facility] Stop: 11/13/20 08:59 Last Admin: 10/24/20 09:33 Dose: 100 mg Documented by: [id number] Admin: 10/23/20 09:23 Dose: 100 mg Documented by: [id number] Admin: 10/22/20 07:57 Dose: 100 mg Documented by: [id number] Admin: 10/21/20 07:56 Dose: 100 mg Documented by: [id number] Admin: 10/20/20 08:37 Dose: 100 mg Documented by: [id number] Admin: 10/19/20 08:29 Dose: 100 mg Documented by: [id number] Admin: 10/18/20 08:38 Dose: 100 mg Documented by: [id number] Admin: 10/17/20 09:24 Dose: 100 mg Documented by: [id number] Admin: 10/16/20 09:06 Dose: 100 mg Documented by: [id number] Admin: 10/15/20 08:48 Dose: 100 mg Documented by: [id number] Admin: 10/14/20 07:32 Dose: 100 mg Documented by: [id number] Venlafaxine HCl (Venlafaxine Hcl Xr 150 Mg Capxr) 150 mg PO [facility] Stop: 11/13/20 08:59 Last Admin: 10/24/20 09:34 Dose: 150 mg Documented by: [id number] Admin: 10/23/20 09:23 Dose: 150 mg Documented by: [id number] Admin: 10/22/20 07:57 Dose: 150 mg Documented by: [id number] Admin: 10/21/20 07:54 Dose: 150 mg Documented by: [id number] Admin: 10/20/20 08:37 Dose: 150 mg Documented by: [id number] Admin: 10/19/20 08:30 Dose: 150 mg Documented by: [id number] Admin: 10/18/20 08:37 Dose: 150 mg Documented by: [id number] Admin: 10/17/20 09:25 Dose: 150 mg Documented by: [id number] Admin: 10/16/20 09:06 Dose: 150 mg Documented by: [id number] Admin: 10/15/20 08:47 Dose: 150 mg Documented by: [id number] Admin: 10/14/20 07:33 Dose: 150 mg Documented by: [id number] Coding Level of Care Code 56154 [facility] Lvl 2 Diagnoses Alcohol abuse F10.10 Time Spent (min) 45
--- NOTE | 2020-10-24 15:45 | Nephrology Progress Note ---
Date of Service October 24, 2020 Assessment & Plan Admission and Anticipated Discharge Date Admission Date: October 14, 2020 Subjective Assessment & Plan (1) Hyperkalemia: Plan: resolved >> cause unclear as he has been off of ACEI for several days before this occurred. Although RTA 4 is also possible given 20+ years of DM. Stop patiromer . low K diet, Making lot of urine but As outpt he will need some lasix also. Will restart lasix likely from tomorrow. Today making 2675 ml already (2) ONDINA (acute kidney injury): Plan: baseline creatinine less than one; was at baseline on presentation. peak value to date 2.1 on 10/22 but since then trending down. renal u/s unremarkable; -daily BMP -look to resume ACEI when approp (3) Proteinuria: Plan: 4.4 gm proteinuria even w/ controlled bp >> concern for nephrotic syndrome, likeliest cause is diabetic nephropathy/hypertensive nephrosclerosis -resume ACEI next 1-2 days and will likely need diuretic too -nephrotic syndrome panel ordered for AM labs plus a 24 hr urine (4) Bilateral edema of lower extremity: Plan: not florid nephrotic syndrome but nephrotic range proteinuria and low serum albumin at admission; though edema is much improved compared to admission even w/o diuretic (5) HTN (hypertension): Plan: SBP is quite labile - ranges 110s-190s past 24 hrs, mostly elevated -continue to hold ACEI -cont CCB medium dose, toprol -AVOID standing clonidine -consider hydralazine if needed Admission and Anticipated Discharge Date Admission Date: October 14, 2020 Subjective tells me 2 providers both claiming to be "head kidney doctors" were already in to see him today and that he no longer needs FR; edema cont to improve; no SOB; no voiding concerns but for some occasional pink tinged urine Review of Systems Review of Systems: All systems reviewed & are unremarkable except as noted in Subjective Physical Exam Constitutional: well developed, well nourished and + obese; no acute distress Eyes: EOM intact bilaterally ENMT: Ears: no external ear abnormality Nose: no external nose abnormality Mouth: + dry oral mucous membranes Neck: no nuchal rigidity Respiratory: normal respiratory effort Auscultation: + diminished lung sounds Cardiovascular: Rate/Rhythm: regular rate and regular rhythm Extremities: + edema (trace indurated BLE) Gastrointestinal (Abdomen): Inspection/Auscultation: normal bowel sounds Percussion/Palpation: abdomen soft; abdomen nontender Musculoskeletal: Extremities: strength 5/5 throughout Skin: no rashes, warm and dry Psychiatric: Orientation: alert and oriented x 3 Apperance: + disheveled Eye Contact: + fair eye contact Speech: + pressured speech Results & Data ([facility]) Vital Signs (Past 12 Hours) Vital Signs Temp Pulse Pulse Resp BP BP Pulse Ox 10/24/20 11:45 36.5 C 81 18 134/91 92 10/24/20 08:00 63 10/24/20 07:36 36.4 C L 62 18 178/104 H 95 10/24/20 04:05 36.6 C 59 L 16 159/95 H 93
--- NOTE | 2020-10-24 20:58 | Ultrasound Report ---
US liver CLINICAL HISTORY: 55 years-old Male presenting with elevated LFTs. TECHNIQUE: Real-time grayscale ultrasound imaging of the upper abdomen was performed for a focused ev aluation at the site of clinical concern. COMPARISON: None. FINDINGS: Visualized portion of the pancreas shows no evidence of focal lesions. Liver is enlarged measuring 21 cm in length with diffuse increase in echogenicity and coarsening of e chotexture of its parenchyma. No evidence of focal liver lesions or intrahepatic biliary dilatation i s seen. Gallbladder is fluid-filled without evidence of intraluminal calculi, wall thickening or pericholecys tic edema. Sonographic Muhammad's sign is negative. Common bile duct is nondilated measuring 0.3 cm in diameter Right kidney is normal in size measuring 12.1 cm in length and shows no evidence of hydronephrosis. IMPRESSION: 1. Hepatomegaly. Hepatic steatosis. ACT 112: Negative or not required by law. Electronically signed by: Yasmine Stein DO 10/24/2020 8:56 PM
[2020-10-25] MEDS: hydrALAZINE HCL 25 MG TAB PO SCH ×3 (00:12→21:43)
[2020-10-25] MEDS: HEPARIN SOD 5,000 UNIT/0.5 ML VIAL SQ SCH ×3 (05:53→21:43)
[2020-10-25 07:04] LABS: BUN Creatinine Ratio 30.6 (10-20); Calcium 9.5 mg/dl (8.5-10.1); Creatinine Clr Calc Pharmacy 57.6 ml/min; Est GFR (African American) 48.7 ml/min; Phosphorus 5.1 mg/dl (2.5-4.9)
--- NOTE | 2020-10-25 08:02 | Hospitalist Progress Note ---
Date of Service October 25, 2020 Assessment & Plan (1) Alcohol intoxication: Plan: Patient is a 55 yr male presents with lower extremity edema and alcoholism. B/L Lower extremity edema H/O Chronic LE edema DD: Hypoalbuminemia, Diastolic CHF, Cellulitis, Lymphedema, venous stasis Left arm wound -ECHO: EF 55 to 60%. Moderate concentric LVH. Grade 1 diastolic dysfunction. -Venous Doppler:No evidence of deep venous thrombus within the bilateral lower extremities. -Wound Cx:MSSA Received IV Lasix Monitor Volume status Dietitian consulted Continue Rocephin Day #5>> Transitioned to PO Abx Leg edema much improved Advised to follow-up with cardiology as outpatient Then held diuresis due to ONDINA Plan to resume PO diuretics as able Advised to follow up with Cardiology upon discharge Acute Kidney Injury Cr:1.8 -> 2.1 Held diuresis Avoid nephrotoxic agents as able Monitor renal function Given ONDINA and hyperkalemia nephrology consulted hx of proteinuria, currently 4.4 g proteinuria Nephrotic syndrome work-up ordered by nephrology Appreciate input from nephrology Also, per nephrology, no CKD, however history of proteinuria Hyperkalemia Low potassium diet, hold losartan Potassium 5.3 -> 6.2 ordered Kayexalate, IV insulin Nephrology consulted for further eval and treatment Started on patiromer for hyperkalemia, potassium then normalized, patiromer stopped (10/24) 10/25 K elevated - received kayexalate Per nephrology- plan to start torsemide Visual hallucinations Patient admitted to the hospital and treated for alcohol withdrawal Believed he would be out of the window for alcohol withdrawal, however there is a possibility Also possible delirium or underlying psychiatric disorder Contacted and consulted psychiatry for further evaluation Outpt follow up w/ psychiatry recommended, no medication changes recommended at this time Mild elevation in troponin H/O chronic elevation of troponin Denies chest pain ECHO as above EKG unchanged from prior Hypomagnesemia replace electrolytes as needed Alcoholism Continue thiamine, folic acid Completed Librium protocol Hold Ativan for Excess sedation Needs rehab placement Tobacco abuse: Nicotine patch. DM II HbA1c 8.3 Continue insulin therapy Monitor BGs Peripheral neuropathy: Continue gabapentin Hypertensive Urgency Hypertension BP Variable Held lisinopril due to Hyperkalemia Continue metoprolol Added Amlodipine stop Clonidine PRN , per nephrology, and instead use hydralazine prn CAD S/P Stent : Continue aspirin, statin, Metoprolol Depression: Continue Effexor Chronic pain: on Suboxone. Obstructive sleep apnea: noncompliant with CPAP. DVT Px: Heparin SQ Code Status Full Code Disposition Needs Rehab placement Admission and Anticipated Discharge Date Admission Date: October 14, 2020 Subjective Patient is seen and examined at bedside Lower extremity edema is much improved ONDINA , hyperkalemia, proteinuria, - nephrology following closely Pt Denies chest pain, shortness of breath, dizziness Will benefit from rehab placement once medically stable Psychiatry consulted for visual hallucinations Review of Systems Review of Systems: All systems reviewed & are unremarkable except as noted in Subjective Physical Exam Physical Exam: General Appearance: obese male, in no apparent distress Head: normocephalic, Atraumatic Eyes: normal inspection, EOMI Neck: supple, Trachea midline Respiratory/Chest: Normal breath sounds, CTA, No accessory muscle use Cardiovascular: S1, S2, No murmur Abdomen/GI:Soft, Non tender, Bowel sounds present Extremities/Musculoskeletal:normal inspection, B/L LE edema (much improved), +Erythema (seems to be somewhat chronic from likely venous stasis) LUE wound Neurologic/Psych:AAOX3, grossly no focal neurological deficits Skin: normal color, warm Results & Data Results & Data ([facility]) Vital Signs (Past 12 Hours) Vital Signs Temp Pulse Pulse Resp BP BP Pulse Ox 10/25/20 07:26 36.8 C 62 18 128/85 95 10/25/20 03:37 36.4 C L 96 H 20 108/80 91 10/24/20 23:49 62 10/24/20 22:36 35.9 C L 60 16 176/95 H 95 10/24/20 20:07 36.6 C 65 18 122/81 95 Medications Administered Current Inpatient Medications Acetaminophen (Acetaminophen 325 Mg Tab) 650 mg PO Q4H PRN PRN Reason: Pain or Fever Stop: 11/13/20 06:17 Last Admin: 10/19/20 04:50 Dose: 650 mg Documented by: Albuterol (Albuterol 0.083% Nebu Soln 3 Ml Vial) 2.5 mg INH QID PRN PRN Reason: Shortness Of Breath Or Wheezing Stop: 11/13/20 06:17 Amlodipine Besylate (Amlodipine Besylate 5 Mg Tab) 5 mg PO QAM [facility] Stop: 11/19/20 09:29 Last Admin: 10/24/20 09:30 Dose: 5 mg Documented by: Aspirin (Aspirin 81 Mg Ectab) 81 mg PO QAM [facility] Stop: 11/13/20 08:59 Last Admin: 10/24/20 09:33 Dose: 81 mg Documented by: Atorvastatin Calcium (Atorvastatin 40 Mg Tab) 80 mg PO DAILY [facility] Stop: 11/13/20 08:59 Last Admin: 10/24/20 09:31 Dose: 80 mg Documented by: Buprenorphine/Naloxone (Buprenorphine/Naloxone 8/2 Mg Tab) 1 tab SL BID [facility] Stop: 11/13/20 08:59 Last Admin: 10/24/20 21:15 Dose: 1 tab Documented by: Clotrimazole (Clotrimazole 1% Cr 15 Gm Tube) 1 appln TOP BID [facility] Stop: 11/13/20 08:59 Last Admin: 10/24/20 20:33 Dose: 1 appln Documented by: Cyanocobalamin (Cyanocobalamin 500 Mcg Tablet (Vitamin B-12)) 1,000 mcg PO DAILY [facility] Stop: 11/13/20 08:59 Last Admin: 10/24/20 09:32 Dose: 1,000 mcg Documented by: Dextrose (Dextrose 50% 50 Ml Syringe) 25 - 50 ml IV UD PRN; Protocol PRN Reason: Hypoglycemia Protocol Stop: 11/13/20 06:59 Docusate Sodium (Docusate Sodium 100 Mg Cap) 100 mg PO BID [facility] Stop: 11/22/20 20:59 Last Admin: 10/24/20 20:33 Dose: 100 mg Documented by: Folic Acid (Folic Acid 1 Mg Tab) 1 mg PO QAM [facility] Stop: 11/13/20 08:59 Last Admin: 10/24/20 09:34 Dose: 1 mg Documented by: Gabapentin (Gabapentin 300 Mg Cap) 300 mg PO BID [facility] Stop: 11/13/20 08:59 Last Admin: 10/24/20 20:33 Dose: 300 mg Documented by: Glucagon (Glucagon For Inj 1 Mg Vial) 1 mg IM UD PRN; Protocol PRN Reason: Hypoglycemia Protocol Stop: 11/13/20 06:59 Glucose (Glucose 40% Gel 15 Gm Tube) 15 - 30 gm PO UD PRN; Protocol PRN Reason: Hypoglycemia Protocol Stop: 11/13/20 06:59 Glucose (Glucose 10 Tabs/Tube) 4 - 8 tabs PO UD PRN; Protocol PRN Reason: Hypoglycemia Protocol Stop: 11/13/20 06:59 Heparin Sodium (Porcine) (Heparin Sod 5,000 Unit/0.5 Ml Vial) 7,500 units SQ Q8 [facility] Stop: 11/13/20 06:17 Last Admin: 10/25/20 05:53 Dose: 7,500 units Documented by: Hydralazine HCl (Hydralazine Hcl 25 Mg Tab) 25 mg PO BID [facility] Stop: 11/23/20 23:29 Last Admin: 10/25/20 00:12 Dose: 25 mg Documented by: Insulin Aspart (Insulin Aspart 100 Units/Ml 3 Ml Pen) 0 units SC ACHS [facility] Stop: 11/13/20 07:29 Last Admin: 10/24/20 21:09 Dose: 6 units Documented by: Insulin Detemir (Insulin Detemir Flexpen/Flex Touch 100 Units/Ml 3ml) 60 units SQ QAM [facility] Stop: 11/22/20 08:59 Lisinopril (L[facility] 40 Mg Tab) [facility] Stop: 11/13/20 08:59 Last Admin: 10/16/20 09:06 Dose: 40 mg Documented by: Lorazepam (Lorazepam 1 Mg Tab) 1 mg PO PRN PRN; Protocol PRN Reason: EtoH Withdrawal AWSS 6-10 Magnesium Oxide (Magnesium Oxide 400 Mg Tab) 400 mg PO QAM [facility] Stop: 11/13/20 08:59 Last Admin: 10/24/20 09:32 Dose: 400 mg Documented by: Metoprolol Succinate (Metoprolol Succ 25mg Ext Rel Tab) 75 mg PO [facility] Stop: 11/17/20 04:44 Last Admin: 10/24/20 09:34 Dose: 75 mg Documented by: Miscellaneous (Urea~Order Awaiting Action) 1 ea N/A QS [facility] Stop: 11/13/20 07:59 Last Admin: 10/25/20 07:58 Dose: Not Given Documented by: Miscellaneous (Remove Nicoderm Patch) 1 ea N/A DAILY@0859 [facility] Stop: 11/14/20 08:58 Last Admin: 10/24/20 09:29 Dose: 1 ea Documented by: Miscellaneous (Carbohydrates For Hypoglycemia ) 15 - 30 gm PO UD PRN PRN Reason: Hypoglycemia Treatment Stop: 11/13/20 06:59 Last Admin: 10/15/20 17:00 Dose: 15 gm Documented by: Miscellaneous Information (Pharmacy Glycemic Mgmt Consult) 1 ea N/A UD PRN PRN Reason: Consult Stop: 11/14/20 09:35 Multivitamins/Minerals (Cerovite Adv Formula Tab) [facility] Stop: 11/13/20 08:59 Last Admin: 10/24/20 09:33 Dose: 1 tab Documented by: Nicotine (Nicotine 21 Mg/24 Hr Tdsy) 21 mg TD QAM [facility] Stop: 11/13/20 08:59 Last Admin: 10/24/20 09:33 Dose: 21 mg Documented by: Nitroglycerin (Nitroglycerin Sl 0.4 Mg/Tab Tab) 0.4 mg SL UD PRN PRN Reason: Chest Pain Stop: 11/13/20 06:17 Ondansetron HCl (Ondansetron Inj 2 Mg/Ml 2 Ml Vial) 4 mg IV Q6H PRN PRN Reason: Nausea Stop: 11/13/20 06:17 Last Admin: 10/14/20 21:19 Dose: 4 mg Documented by: Polyethylene Glycol (Polyethylene (Miralax) 17 Gm Pack) 17 gm PO DAILY PRN PRN Reason: Constipation Stop: 11/13/20 06:17 Thiamine HCl (Thiamine Hcl 100 Mg Tab) 100 mg PO [facility] Stop: 11/13/20 08:59 Last Admin: 10/24/20 09:33 Dose: 100 mg Documented by: Venlafaxine HCl (Venlafaxine Hcl Xr 150 Mg Capxr) 150 mg PO [facility] Stop: 11/13/20 08:59 Last Admin: 10/24/20 09:34 Dose: 150 mg Documented by: (1) Alcohol intoxication Complication of substance-induced condition: with unspecified complication Qu alified Code(s): F10.929 - Alcohol use, unspecified with intoxication, unspecified
[2020-10-25 08:50] LABS: Magnesium 1.9 mg/dl (1.8-2.4); Potassium 5.7 mmol/L (3.5-5.1)
[2020-10-25] MEDS: INSULIN ASPART 100 UNITS/ML 3 ML PEN SC SCH ×4 (09:12→20:14)
[2020-10-25] MEDS: INSULIN DETEMIR FLEXPEN/FLEX TOUCH 100 UNITS/ML 3ML SQ SCH (09:14)
[2020-10-25] MEDS: NICOTINE 21 MG/24 HR TDSY TD SCH (09:16)
[2020-10-25] MEDS: CYANOCOBALAMIN 500 MCG TABLET (VITAMIN B-12) PO SCH (09:17)
[2020-10-25] MEDS: FOLIC ACID 1 MG TAB PO SCH (09:18)
[2020-10-25] MEDS: METOPROLOL SUCC 25MG EXT REL TAB PO SCH (09:19)
[2020-10-25] MEDS: CEROVITE ADV FORMULA TAB PO SCH (09:20)
[2020-10-25] MEDS: MAGNESIUM OXIDE 400 MG TAB PO SCH (09:20)
[2020-10-25] MEDS: DOCUSATE SODIUM 100 MG CAP PO SCH ×2 (09:21→21:43)
[2020-10-25] MEDS: GABAPENTIN 300 MG CAP PO SCH ×2 (09:22→21:43)
[2020-10-25] MEDS: ASPIRIN 81 MG ECTAB PO SCH (09:23)
[2020-10-25] MEDS: VENLAFAXINE HCL XR 150 MG CAPXR PO SCH (09:23)
[2020-10-25] MEDS: THIAMINE HCL 100 MG TAB PO SCH (09:23)
[2020-10-25] MEDS: CLOTRIMAZOLE 1% CR 15 GM TUBE TOP SCH ×2 (09:27→21:44)
[2020-10-25] MEDS: BUPRENORPHINE/NALOXONE 8/2 MG TAB SL SCH ×2 (09:43→21:42)
[2020-10-25] MEDS: amLODIPine BESYLATE 5 MG TAB PO SCH (09:43)
[2020-10-25] MEDS: ATORVASTATIN 40 MG TAB PO SCH (09:43)
[2020-10-25] MEDS ORDERED: SODIUM POLYSTYRENE SULFONATE 15G/60ML SUSP PO STA (12:19)
--- NOTE | 2020-10-25 12:39 | Pharmacy Report ---
Pharmacy Glycemic Short Note 2 - Date of Service October 25, 2020 - Glycemic Short BSG Results (Last 24 hours): 10/24/20 10/24/20 10/25/20 16:30 20:44 05:21 Glucose 254 H POC Glucose 104 H 247 H 10/25/20 10/25/20 07:45 11:31 Glucose POC Glucose 239 H 196 H OUTPATIENT ANTIDIABETIC REGIMEN: * Levemir 45 units SC HS * Novolog SSI and Ozempic * HbA1c: 8.3% (10/14/20) ASSESSMENT: 10/25: * Dewayne received a total of 74 units of insulin yesterday (50 units basal + 24 units bolus) * BSGs were: [phone] mg/dL * Fasting BSG was elevated at 239 mg/dL this AM * No snacking or eating prior to this BSG * Will increase Lantus by 20% * Postprandial hyperglycemia is noted so will tighten carb ratio 10/22: * Pt has received 69 units of insulin over the past 24hrs * 45 units of basal with Levemir * 24 units of bolus with NovoLog * majority of BSGs were above goal * Fasting BSG severely elevated; 316 mg/dL. RN reports that patient ate candy prior to fasting BSG check. In addition to this patient was given IV insulin + dextrose IV x 2 overnight for hyperkalemia, therefore fasting BSG is unrealizable. Will slightly increase basal dose based on elevated fasting on 10/20 & 10/21. * Lunch BSG elevated x 2 days, therefore novolog will be tightened. PLAN FOR INPATIENT GLYCEMIC CONTROL: * Basal insulin - increase * Levemir 60 units SC Daily * Bolus insulin - tighten * NovoLog per scale ACHS or Q6hrs while NPO * Goal Range: Low 110 mg/dL - High 140 mg/dL * Correction Factor: 20 mg/dL/unit * Nutritional / Prandial insulin per carb ratio of 1 unit per 5 grams CHO consumed PLAN FOR DISCHARGE: * HbA1c of 8.3% suggests poor outpatient glycemic control * Increase basal insulin to 50 units daily * Patient may benefit from fixed dose of Novolog with meals - rec starting with 6 units TID meals and titrate per outpatient provider
--- NOTE | 2020-10-25 15:50 | Nephrology Progress Note ---
Date of Service October 25, 2020 Assessment & Plan Admission and Anticipated Discharge Date Admission Date: October 14, 2020 Subjective Assessment & Plan (1) Hyperkalemia: Plan: resolved >> cause unclear as he has been off of ACEI for several days before this occurred. Although RTA 4 is also possible given 20+ years of DM. Stop patiromer as almost impossible to Rx this outpt low K diet, he will need some diuretics to keep edema and K under control--Start demadex 20 daily. May need more (2) ONDINA (acute kidney injury): Plan: baseline creatinine less than one; was at baseline on presentation. peak value to date 2.1 on 10/22 but since then trending down. renal u/s unremarkable; -daily BMP -look to resume ARB but not today. Need to stable normal k first (3) Proteinuria: Plan: 4.4 gm proteinuria even w/ controlled bp >> concern for nephrotic syndrome, likeliest cause is diabetic nephropathy/hypertensive nephrosclerosis -nephrotic syndrome panel ordered for AM labs plus a 24 hr urine (4) Bilateral edema of lower extremity: Plan: not florid nephrotic syndrome but nephrotic range proteinuria and low serum albumin at admission; though edema is much improved compared to admission even w/o diuretic SBP is quite labile - ranges 110s-190s past 24 hrs, mostly elevated -continue to hold ACEI -cont CCB medium dose, toprol -AVOID standing clonidine --Add torsemide Admission and Anticipated Discharge Date Admission Date: October 14, 2020 Subjective tells me 2 providers both claiming to be "head kidney doctors" were already in to see him today and that he no longer needs FR; edema cont to improve; no SOB; no voiding concerns but for some occasional pink tinged urine Review of Systems Review of Systems: All systems reviewed & are unremarkable except as noted in Subjective Physical Exam Constitutional: well developed, well nourished and + obese; no acute distress Eyes: EOM intact bilaterally ENMT: Ears: no external ear abnormality Nose: no external nose abnormality Mouth: + dry oral mucous membranes Neck: no nuchal rigidity Respiratory: normal respiratory effort Auscultation: + diminished lung sounds Cardiovascular: Rate/Rhythm: regular rate and regular rhythm Extremities: + edema (trace indurated BLE) Gastrointestinal (Abdomen): Inspection/Auscultation: normal bowel sounds Percussion/Palpation: abdomen soft; abdomen nontender Musculoskeletal: Extremities: strength 5/5 throughout Skin: no rashes, warm and dry Psychiatric: Orientation: alert and oriented x 3 Apperance: + disheveled Eye Contact: + fair eye contact Speech: + pressured speech Results & Data ([facility]) Vital Signs (Past 12 Hours) Vital Signs Temp Pulse Pulse Resp BP BP Pulse Ox 10/25/20 15:02 36.4 C L 114 H 18 112/76 93 10/25/20 11:15 36.6 C 62 18 112/73 94 10/25/20 08:00 60 10/25/20 07:26 36.8 C 62 18 128/85 95
[2020-10-25] MEDS: TORSEMIDE 10 MG TAB PO SCH (17:57)
[2020-10-25] MEDS ORDERED: SODIUM POLYSTYRENE SULFONATE 15G/60ML SUSP PO ONE (18:00)
[2020-10-26] MEDS: HEPARIN SOD 5,000 UNIT/0.5 ML VIAL SQ SCH ×3 (06:23→21:00)
[2020-10-26] MEDS: INSULIN ASPART 100 UNITS/ML 3 ML PEN SC SCH ×4 (08:15→20:14)
[2020-10-26] MEDS: BUPRENORPHINE/NALOXONE 8/2 MG TAB SL SCH ×2 (08:17→19:58)
[2020-10-26] MEDS: THIAMINE HCL 100 MG TAB PO SCH (08:17)
[2020-10-26] MEDS: NICOTINE 21 MG/24 HR TDSY TD SCH (08:17)
[2020-10-26] MEDS: DOCUSATE SODIUM 100 MG CAP PO SCH ×2 (08:17→20:00)
[2020-10-26] MEDS: MAGNESIUM OXIDE 400 MG TAB PO SCH (08:18)
[2020-10-26] MEDS: TORSEMIDE 10 MG TAB PO SCH (08:18)
[2020-10-26] MEDS: FOLIC ACID 1 MG TAB PO SCH (08:18)
[2020-10-26] MEDS: VENLAFAXINE HCL XR 150 MG CAPXR PO SCH (08:18)
[2020-10-26] MEDS: CEROVITE ADV FORMULA TAB PO SCH (08:18)
[2020-10-26] MEDS: ASPIRIN 81 MG ECTAB PO SCH (08:18)
[2020-10-26] MEDS: ATORVASTATIN 40 MG TAB PO SCH (08:18)
[2020-10-26] MEDS: amLODIPine BESYLATE 5 MG TAB PO SCH (08:19)
[2020-10-26] MEDS: INSULIN DETEMIR FLEXPEN/FLEX TOUCH 100 UNITS/ML 3ML SQ SCH (08:19)
[2020-10-26] MEDS: CLOTRIMAZOLE 1% CR 15 GM TUBE TOP SCH ×2 (08:20→20:01)
[2020-10-26] MEDS: hydrALAZINE HCL 25 MG TAB PO SCH ×2 (08:21→20:01)
[2020-10-26] MEDS: METOPROLOL SUCC 25MG EXT REL TAB PO SCH (08:21)
[2020-10-26] MEDS: CYANOCOBALAMIN 500 MCG TABLET (VITAMIN B-12) PO SCH (08:21)
[2020-10-26] MEDS: GABAPENTIN 300 MG CAP PO SCH ×2 (08:21→19:58)
[2020-10-26] MEDS ORDERED: INSULIN DETEMIR FLEXPEN/FLEX TOUCH 100 UNITS/ML 3ML SQ SCH ×2 (09:00→21:00)
[2020-10-26 09:15] LABS: Hepatitis B Surf Ag Rflx Conf Neg (Neg)
[2020-10-26 09:44] LABS: Hepatitis C IgG 13Yrs+Old_Rflx Neg (Neg)
--- NOTE | 2020-10-26 10:03 | Pharmacy Report ---
Pharmacy Glycemic Short Note 2 - Date of Service October 26, 2020 - Glycemic Short BSG Results (Last 24 hours): 10/25/20 10/25/20 10/25/20 11:31 16:23 19:59 POC Glucose 196 H 188 H 112 H 10/26/20 07:38 POC Glucose 202 H OUTPATIENT ANTIDIABETIC REGIMEN: * Levemir 45 units SC HS * Novolog SSI and Ozempic * HbA1c: 8.3% (10/14/20) ASSESSMENT: 10/26 * Pt has received 108 units of insulin over the past 24hrs * 60 units of basal with Levemir * 48 units of bolus with NovoLog * BSGs remain elevated in the morning and trend downwards after large doses of NovoLog. * AM fasting BSG is elevated in the morning despite BSG in goal range at HS indicating the basal insulin is not lasting 24hrs. Levemir typically is dosed BID based on its duration of action. Will increase Levemir to BID and titrate based on BSGs * No changes needed to CF/CR 10/25: * Dewayne received a total of 74 units of insulin yesterday (50 units basal + 24 units bolus) * BSGs were: [phone] mg/dL * Fasting BSG was elevated at 239 mg/dL this AM * No snacking or eating prior to this BSG * Will increase Lantus by 20% * Postprandial hyperglycemia is noted so will tighten carb ratio 10/22: * Pt has received 69 units of insulin over the past 24hrs * 45 units of basal with Levemir * 24 units of bolus with NovoLog * majority of BSGs were above goal * Fasting BSG severely elevated; 316 mg/dL. RN reports that patient ate candy prior to fasting BSG check. In addition to this patient was given IV insulin + dextrose IV x 2 overnight for hyperkalemia, therefore fasting BSG is unrealizable. Will slightly increase basal dose based on elevated fasting on 10/20 & 10/21. * Lunch BSG elevated x 2 days, therefore novolog will be tightened. PLAN FOR INPATIENT GLYCEMIC CONTROL: * Basal insulin - increase * Levemir 70 units SC Daily in AM + add Levemir 20 units SQ HS * Bolus insulin - no change * NovoLog per scale ACHS or Q6hrs while NPO * Goal Range: Low 110 mg/dL - High 140 mg/dL * Correction Factor: 20 mg/dL/unit * Nutritional / Prandial insulin per carb ratio of 1 unit per 5 grams CHO consumed PLAN FOR DISCHARGE: * HbA1c of 8.3% suggests poor outpatient glycemic control * Increase basal insulin to BID dosing for better fasting fasting BSG control * Patient may benefit from fixed dose of Novolog with meals - rec starting with 6 units TID meals and titrate per outpatient provider
--- NOTE | 2020-10-26 10:41 | Nephrology Progress Note ---
Date of Service October 26, 2020 Assessment & Plan Admission and Anticipated Discharge Date Admission Date: October 14, 2020 Subjective [place] [address] Nephrology Progress NoteSigned Patient: CARLOS NGOmit Date: 10/14/20MR#: [id number] [facility] [id number] Phy: Charity Reed MDBirth Date: [id number] Phy: Age: 55Location: 2WSex: MRoom/Bed: W250-2 cc: ~ *NOTICE TO RECEIVING DEMOCRAT/AGENCY This information is strictly Confidential and protected under [place] law. [place] law prohibits you from making any further disclosure of this information unless further disclosure is expressly permitted by the written consent of the person to whom it pertains or is authorized by law. A general authorization for the release of medical or other information is not sufficient for this purpose. Hospital accepts no responsibility if the information is made available to any other person, INCLUDING THE PATIENT. Date of Service October 25, 2020 Assessment & Plan Admission and Anticipated Discharge Date Admission Date: October 14, 2020 Subjective Assessment & Plan (1) Hyperkalemia: Plan: resolved >> cause unclear as he has been off of ACEI for several days before this occurred. Although RTA 4 is also possible given 20+ years of DM. Stop patiromer as almost impossible to Rx this outpt low K diet, he will need some diuretics to keep edema and K under control--Start demadex 20 daily. May need more (2) ONDINA (acute kidney injury): Plan: baseline creatinine less than one; was at baseline on presentation. peak value to date 2.1 on 10/22 but since then trending down. renal u/s unremarkable; (3) Proteinuria: Plan: 4.4 gm proteinuria even w/ controlled bp >> concern for nephrotic syndrome, likeliest cause is diabetic nephropathy/hypertensive nephrosclerosis -nephrotic syndrome panel ordered for AM labs plus a 24 hr urine (4) Bilateral edema of lower extremity: Plan: not florid nephrotic syndrome but nephrotic range proteinuria and low serum albumin at admission; though edema is much improved compared to admission even w/o diuretic Have restarted Lisinopril but like to change to ARB given lower likelhood of causing high K. -cont CCB medium dose, toprol -AVOID standing clonidine --Add torsemide 20 daily --labs ordered for today Admission and Anticipated Discharge Date Admission Date: October 14, 2020 Subjective tells me 2 providers both claiming to be "head kidney doctors" were already in to see him today and that he no longer needs FR; edema cont to improve; no SOB; no voiding concerns but for some occasional pink tinged urine Review of Systems Review of Systems: All systems reviewed & are unremarkable except as noted in Subjective Physical Exam Constitutional: well developed, well nourished and + obese; no acute distress Eyes: EOM intact bilaterally ENMT: Ears: no external ear abnormality Nose: no external nose abnormality Mouth: + dry oral mucous membranes Neck: no nuchal rigidity Respiratory: normal respiratory effort Auscultation: + diminished lung sounds Cardiovascular: Rate/Rhythm: regular rate and regular rhythm Extremities: + edema (trace indurated BLE) Gastrointestinal (Abdomen): Inspection/Auscultation: normal bowel sounds Percussion/Palpation: abdomen soft; abdomen nontender Musculoskeletal: Extremities: strength 5/5 throughout Skin: no rashes, warm and dry Psychiatric: Orientation: alert and oriented x 3 Apperance: + disheveled Eye Contact: + fair eye contact Speech: + pressured speech Results & Data ([facility]) Vital Signs (Past 12 Hours) Vital Signs Temp Pulse Pulse Resp BP BP Pulse Ox 10/26/20 08:00 64 10/26/20 07:23 36.5 C 68 18 122/76 92 10/26/20 03:08 36.2 C L 63 18 121/80 96 10/26/20 00:00 68 10/25/20 23:14 36.4 C L 66 18 163/90 H 95 Pulse Ox 10/26/20 08:00 97 10/26/20 07:23 10/26/20 03:08 10/26/20 00:00 10/25/20 23:14
[2020-10-26 11:35] LABS: BUN Creatinine Ratio 26.1 (10-20); Calcium 8.9 mg/dl (8.5-10.1); Creatinine Clr Calc Pharmacy 45.9 ml/min; Est GFR (Non-African American) 31.9 ml/min; Magnesium 2.3 mg/dl (1.8-2.4); Phosphorus 3.7 mg/dl (2.5-4.9); Potassium 4.3 mmol/L (3.5-5.1)
[2020-10-27] MEDS: HEPARIN SOD 5,000 UNIT/0.5 ML VIAL SQ SCH ×3 (04:53→20:37)
[2020-10-27 07:15] LABS: Creatinine Clr Calc Pharmacy 61.5 ml/min; Est GFR (African American) 51.9 ml/min; Est GFR (Non-African American) 44.7 ml/min; Magnesium 2.3 mg/dl (1.8-2.4); Phosphorus 3.4 mg/dl (2.5-4.9); Potassium 4.5 mmol/L (3.5-5.1)
[2020-10-27] MEDS: hydrALAZINE HCL 25 MG TAB PO SCH ×2 (07:25→20:35)
[2020-10-27] MEDS: CYANOCOBALAMIN 500 MCG TABLET (VITAMIN B-12) PO SCH (07:25)
[2020-10-27] MEDS: amLODIPine BESYLATE 5 MG TAB PO SCH (07:26)
[2020-10-27] MEDS: METOPROLOL SUCC 25MG EXT REL TAB PO SCH (07:26)
[2020-10-27] MEDS: VENLAFAXINE HCL XR 150 MG CAPXR PO SCH (07:26)
[2020-10-27] MEDS: TORSEMIDE 10 MG TAB PO SCH (07:26)
[2020-10-27] MEDS: DOCUSATE SODIUM 100 MG CAP PO SCH ×2 (07:26→20:36)
[2020-10-27] MEDS: FOLIC ACID 1 MG TAB PO SCH (07:26)
[2020-10-27] MEDS: ATORVASTATIN 40 MG TAB PO SCH (07:27)
[2020-10-27] MEDS: CEROVITE ADV FORMULA TAB PO SCH (07:27)
[2020-10-27] MEDS: GABAPENTIN 300 MG CAP PO SCH ×2 (07:28→20:36)
[2020-10-27] MEDS: MAGNESIUM OXIDE 400 MG TAB PO SCH (07:28)
[2020-10-27] MEDS: ASPIRIN 81 MG ECTAB PO SCH (07:28)
[2020-10-27] MEDS: CLOTRIMAZOLE 1% CR 15 GM TUBE TOP SCH ×2 (07:29→20:35)
[2020-10-27] MEDS: NICOTINE 21 MG/24 HR TDSY TD SCH (07:29)
[2020-10-27] MEDS: THIAMINE HCL 100 MG TAB PO SCH (07:29)
--- NOTE | 2020-10-27 08:05 | Hospitalist Progress Note ---
Date of Service October 27, 2020 Assessment & Plan (1) Alcohol intoxication: Plan: Patient is a 55 yr male presents with lower extremity edema and alcoholism. B/L Lower extremity edema H/O Chronic LE edema DD: Hypoalbuminemia, Diastolic CHF, Cellulitis, Lymphedema, venous stasis Left arm wound -ECHO: EF 55 to 60%. Moderate concentric LVH. Grade 1 diastolic dysfunction. -Venous Doppler:No evidence of deep venous thrombus within the bilateral lower extremities. -Wound Cx:MSSA Received IV Lasix Monitor Volume status Dietitian consulted Continue Rocephin Day #5>> Transitioned to PO Abx Leg edema much improved Advised to follow-up with cardiology as outpatient Then held diuresis due to ONDINA Plan to resume PO diuretics as able Advised to follow up with Cardiology upon discharge Acute Kidney Injury Cr:1.8 -> 2.1 Held diuresis Avoid nephrotoxic agents as able Monitor renal function Given ONDINA and hyperkalemia nephrology consulted hx of proteinuria, currently 4.4 g proteinuria Nephrotic syndrome work-up ordered by nephrology Appreciate input from nephrology Also, per nephrology, no CKD, however history of proteinuria Hyperkalemia Low potassium diet, hold losartan Potassium 5.3 -> 6.2 ordered Kayexalate, IV insulin Nephrology consulted for further eval and treatment Started on patiromer for hyperkalemia, potassium then normalized, patiromer stopped (10/24) 10/25 K elevated - received kayexalate Per nephrology- start torsemide 20 mg daily Visual hallucinations Patient admitted to the hospital and treated for alcohol withdrawal Believed he would be out of the window for alcohol withdrawal, however there is a possibility Also possible delirium or underlying psychiatric disorder Contacted and consulted psychiatry for further evaluation Outpt follow up w/ psychiatry recommended, no medication changes recommended at this time Mild elevation in troponin H/O chronic elevation of troponin Denies chest pain ECHO as above EKG unchanged from prior Hypomagnesemia replace electrolytes as needed Alcoholism Continue thiamine, folic acid Completed Librium protocol Hold Ativan for Excess sedation Needs rehab placement Tobacco abuse: Nicotine patch. DM II HbA1c 8.3 Continue insulin therapy Monitor BGs Peripheral neuropathy: Continue gabapentin Hypertensive Urgency Hypertension BP Variable Held lisinopril due to Hyperkalemia Continue metoprolol Added Amlodipine stop Clonidine PRN , per nephrology, and instead use hydralazine prn CAD S/P Stent : Continue aspirin, statin, Metoprolol Depression: Continue Effexor Chronic pain: on Suboxone. Obstructive sleep apnea: noncompliant with CPAP. DVT Px: Heparin SQ Code Status Full Code Disposition Needs Rehab placement Admission and Anticipated Discharge Date Admission Date: October 14, 2020 Subjective Patient is seen and examined at bedside Lower extremity edema is much improved ONDINA , hyperkalemia, proteinuria, - nephrology following closely Pt Denies chest pain, shortness of breath, dizziness Will benefit from rehab placement once medically stable Currently denies any visual hallucinations Review of Systems Review of Systems: All systems reviewed & are unremarkable except as noted in Subjective Physical Exam Physical Exam: General Appearance: obese male, in no apparent distress Head: normocephalic, Atraumatic Eyes: normal inspection, EOMI Neck: supple, Trachea midline Respiratory/Chest: Normal breath sounds, CTA, No accessory muscle use Cardiovascular: S1, S2, No murmur Abdomen/GI:Soft, Non tender, Bowel sounds present Extremities/Musculoskeletal:normal inspection, B/L LE edema (much improved), +Erythema (seems to be somewhat chronic from likely venous stasis) LUE wound Neurologic/Psych:AAOX3, grossly no focal neurological deficits Skin: normal color, warm Results & Data Results & Data ([facility]) Vital Signs (Past 12 Hours) Vital Signs Temp Pulse Pulse Resp BP Pulse Ox 10/26/20 23:36 36.4 C L 71 20 130/83 94 10/26/20 23:21 66 (1) Alcohol intoxication Complication of substance-induced condition: with unspecified complication Qualified Code(s): F10.929 - Alcohol use, unspecified with intoxication, unspecified
--- NOTE | 2020-10-27 08:08 | Hospitalist Progress Note ---
Date of Service October 27, 2020 Assessment & Plan (1) Alcohol intoxication: Plan: Patient is a 55 yr male presents with lower extremity edema and alcoholism. B/L Lower extremity edema H/O Chronic LE edema DD: Hypoalbuminemia, Diastolic CHF, Cellulitis, Lymphedema, venous stasis Left arm wound -ECHO: EF 55 to 60%. Moderate concentric LVH. Grade 1 diastolic dysfunction. -Venous Doppler:No evidence of deep venous thrombus within the bilateral lower extremities. -Wound Cx:MSSA Received IV Lasix Monitor Volume status Dietitian consulted Continue Rocephin Day #5>> Transitioned to PO Abx Leg edema much improved Advised to follow-up with cardiology as outpatient Then held diuresis due to ONDINA Plan to resume PO diuretics as able Advised to follow up with Cardiology upon discharge Acute Kidney Injury Cr:1.8 -> 2.1 Held diuresis Avoid nephrotoxic agents as able Monitor renal function Given ONDINA and hyperkalemia nephrology consulted hx of proteinuria, currently 4.4 g proteinuria Nephrotic syndrome work-up ordered by nephrology Appreciate input from nephrology Also, per nephrology, no CKD, however history of proteinuria Hyperkalemia Low potassium diet, hold losartan Potassium 5.3 -> 6.2 ordered Kayexalate, IV insulin Nephrology consulted for further eval and treatment Started on patiromer for hyperkalemia, potassium then normalized, patiromer stopped (10/24) 10/25 K elevated - received kayexalate Per nephrology- started torsemide 20 mg daily Discharge recommendations from nephrology regarding ONDINA, proteinuria, hyperkalemia: Discharge patient on losartan 50 mg daily and furosemide 80 mg daily Follow-up with nephrology in 2 weeks Visual hallucinations Patient admitted to the hospital and treated for alcohol withdrawal Believed he would be out of the window for alcohol withdrawal, however there is a possibility Also possible delirium or underlying psychiatric disorder Contacted and consulted psychiatry for further evaluation Outpt follow up w/ psychiatry recommended, no medication changes recommended at this time Mild elevation in troponin H/O chronic elevation of troponin Denies chest pain ECHO as above EKG unchanged from prior Hypomagnesemia replace electrolytes as needed Alcoholism Continue thiamine, folic acid Completed Librium protocol Hold Ativan for Excess sedation Needs rehab placement Tobacco abuse: Nicotine patch. DM II HbA1c 8.3 Continue insulin therapy Monitor BGs Peripheral neuropathy: Continue gabapentin Hypertensive Urgency Hypertension BP Variable Held lisinopril due to Hyperkalemia Continue metoprolol Added Amlodipine stop Clonidine PRN , per nephrology, and instead use hydralazine prn CAD S/P Stent : Continue aspirin, statin, Metoprolol Depression: Continue Effexor Chronic pain: on Suboxone. Obstructive sleep apnea: noncompliant with CPAP. DVT Px: Heparin SQ Code Status Full Code Disposition Needs alcohol rehab placement , patient medically stable for discharge Admission and Anticipated Discharge Date Admission Date: October 14, 2020 Subjective Patient seen and examined at bedside Lower extremity edema is much improved ONDINA , hyperkalemia, proteinuria, - nephrology following closely Pt denies chest pain, shortness of breath, dizziness Also denies any visual hallucinations Will benefit from from alcohol rehab placement, currently patient is medically stable for DC Discussed DC plan with nephrology Review of Systems Review of Systems: All systems reviewed & are unremarkable except as noted in Subjective Physical Exam Physical Exam: General Appearance: obese male, in no apparent distress Head: normocephalic, Atraumatic Eyes: normal inspection, EOMI Neck: supple, Trachea midline Respiratory/Chest: Normal breath sounds, CTA, No accessory muscle use Cardiovascular: S1, S2, No murmur Abdomen/GI:Soft, Non tender, Bowel sounds present Extremities/Musculoskeletal:normal inspection, trace B/L LE edema (much improved), +Erythema (seems to be somewhat chronic from likely venous stasis) , small LUE wound Neurologic/Psych:AAOX3, grossly no focal neurological deficits Skin: normal color, warm Results & Data Results & Data ([facility]) Vital Signs (Past 12 Hours) Vital Signs Temp Pulse Pulse Resp BP Pulse Ox 10/27/20 07:15 36.4 C L 70 18 117/83 95 10/27/20 03:20 36.5 C 67 20 155/82 H 94 10/26/20 23:36 36.4 C L 71 20 130/83 94 10/26/20 23:21 66 Laboratory Results 10/27/20 10/27/20 10/26/20 Range/Units 07:29 06:20 20:11 Sodium 136 (136-145) mmol/L Potassium 4.5 (3.5-5.1) mmol/L Chloride 105 (98-107) mmol/L Carbon Dioxide 29 (21-32) mmol/L Anion Gap 2.0 L (3-11) BUN 55 H (7-18) mg/dl Creatinine 1.68 H D (0.6-1.4) mg/dl Est Cr Clr Drug Dosing 61.5 ml/min Est GFR ( Amer) 51.9 ml/min Est GFR (Non-Af Amer) 44.7 ml/min BUN/Creatinine Ratio 33.0 H (10-20) Glucose 216 H (70-99) mg/dl POC Glucose 169 H 156 H (70-99) mg/dl Calcium 9.0 (8.5-10.1) mg/dl Phosphorus 3.4 (2.5-4.9) mg/dl Magnesium 2.3 (1.8-2.4) mg/dl Nasal Screen MRSA (PCR) (Negative) Hep Bs Antigen (Neg) Hepatitis C Antibody (Neg) 10/26/20 10/26/20 10/26/20 Range/Units 16:25 11:16 10:21 Sodium 135 L (136-145) mmol/L Potassium 4.3 D (3.5-5.1) mmol/L Chloride 101 (98-107) mmol/L Carbon Dioxide 30 (21-32) mmol/L Anion Gap 4.0 (3-11) BUN 58 H (7-18) mg/dl Creatinine 2.22 H D (0.6-1.4) mg/dl Est Cr Clr Drug Dosing 45.9 ml/min Est GFR ( Amer) 37.0 ml/min Est GFR (Non-Af Amer) 31.9 ml/min BUN/Creatinine Ratio 26.1 H (10-20) Glucose 250 H (70-99) mg/dl POC Glucose 118 H 192 H (70-99) mg/dl Calcium 8.9 (8.5-10.1) mg/dl Phosphorus 3.7 D (2.5-4.9) mg/dl Magnesium 2.3 (1.8-2.4) mg/dl Nasal Screen MRSA (PCR) (Negative) Hep Bs Antigen (Neg) Hepatitis C Antibody (Neg) 10/26/20 10/24/20 Range/Units 06:30 07:06 Sodium (136-145) mmol/L Potassium (3.5-5.1) mmol/L Chloride (98-107) mmol/L Carbon Dioxide (21-32) mmol/L Anion Gap (3-11) BUN (7-18) mg/dl Creatinine (0.6-1.4) mg/dl Est Cr Clr Drug Dosing ml/min Est GFR ( Amer) ml/min Est GFR (Non-Af Amer) ml/min BUN/Creatinine Ratio (10-20) Glucose (70-99) mg/dl POC Glucose (70-99) mg/dl Calcium (8.5-10.1) mg/dl Phosphorus (2.5-4.9) mg/dl Magnesium (1.8-2.4) mg/dl Nasal Screen MRSA (PCR) Negative (Negative) Hep Bs Antigen Neg (Neg) Hepatitis C Antibody Neg (Neg) Medications Administered Current Inpatient Medications Acetaminophen (Acetaminophen 325 Mg Tab) 650 mg PO Q4H PRN PRN Reason: Pain or Fever Stop: 11/13/20 06:17 Last Admin: 10/19/20 04:50 Dose: 650 mg Documented by: Albuterol (Albuterol 0.083% Nebu Soln 3 Ml Vial) 2.5 mg INH QID PRN PRN Reason: Shortness Of Breath Or Wheezing Stop: 11/13/20 06:17 Amlodipine Besylate (Amlodipine Besylate 5 Mg Tab) 5 mg PO QAM [facility] Stop: 11/19/20 09:29 Last Admin: 10/27/20 07:26 Dose: 5 mg Documented by: Aspirin (Aspirin 81 Mg Ectab) 81 mg PO QAM [facility] Stop: 11/13/20 08:59 Last Admin: 10/27/20 07:28 Dose: 81 mg Documented by: Atorvastatin Calcium (Atorvastatin 40 Mg Tab) 80 mg PO DAILY [facility] Stop: 11/13/20 08:59 Last Admin: 10/27/20 07:27 Dose: 80 mg Documented by: Buprenorphine/Naloxone (Buprenorphine/Naloxone 8/2 Mg Tab) 1 tab SL BID [facility] Stop: 11/13/20 08:59 Last Admin: 10/26/20 19:58 Dose: 1 tab Documented by: Clotrimazole (Clotrimazole 1% Cr 15 Gm Tube) 1 appln TOP BID [facility] Stop: 11/13/20 08:59 Last Admin: 10/27/20 07:29 Dose: 1 appln Documented by: Cyanocobalamin (Cyanocobalamin 500 Mcg Tablet (Vitamin B-12)) 1,000 mcg PO DAILY [facility] Stop: 11/13/20 08:59 Last Admin: 10/27/20 07:25 Dose: 1,000 mcg Documented by: Dextrose (Dextrose 50% 50 Ml Syringe) 25 - 50 ml IV UD PRN; Protocol PRN Reason: Hypoglycemia Protocol Stop: 11/13/20 06:59 Docusate Sodium (Docusate Sodium 100 Mg Cap) 100 mg PO BID [facility] Stop: 11/22/20 20:59 Last Admin: 10/27/20 07:26 Dose: 100 mg Documented by: Folic Acid (Folic Acid 1 Mg Tab) 1 mg PO QAM [facility] Stop: 11/13/20 08:59 Last Admin: 10/27/20 07:26 Dose: 1 mg Documented by: Gabapentin (Gabapentin 300 Mg Cap) 300 mg PO BID [facility] Stop: 11/13/20 08:59 Last Admin: 10/27/20 07:28 Dose: 300 mg Documented by: Glucagon (Glucagon For Inj 1 Mg Vial) 1 mg IM UD PRN; Protocol PRN Reason: Hypoglycemia Protocol Stop: 11/13/20 06:59 Glucose (Glucose 40% Gel 15 Gm Tube) 15 - 30 gm PO UD PRN; Protocol PRN Reason: Hypoglycemia Protocol Stop: 11/13/20 06:59 Glucose (Glucose 10 Tabs/Tube) 4 - 8 tabs PO UD PRN; Protocol PRN Reason: Hypoglycemia Protocol Stop: 11/13/20 06:59 Heparin Sodium (Porcine) (Heparin Sod 5,000 Unit/0.5 Ml Vial) 7,500 units SQ Q8 [facility] Stop: 11/13/20 06:17 Last Admin: 10/27/20 04:53 Dose: 7,500 units Documented by: Hydralazine HCl (Hydralazine Hcl 25 Mg Tab) 25 mg PO BID [facility] Stop: 11/23/20 23:29 Last Admin: 10/27/20 07:25 Dose: 25 mg Documented by: Insulin Aspart (Insulin Aspart 100 Units/Ml 3 Ml Pen) 0 units SC ACHS [facility] Stop: 11/13/20 07:29 Last Admin: 10/26/20 20:14 Dose: 7 units Documented by: Insulin Detemir (Insulin Detemir Flexpen/Flex Touch 100 Units/Ml 3ml) 45 units SQ BID [facility]; Protocol Stop: 11/26/20 08:59 Lisinopril (Lisinopril 40 Mg Tab) 40 mg PO [facility] Stop: 11/13/20 08:59 Last Admin: 10/16/20 09:06 Dose: 40 mg Documented by: Lorazepam (Lorazepam 1 Mg Tab) 1 mg PO PRN PRN; Protocol PRN Reason: EtoH Withdrawal AWSS 6-10 Magnesium Oxide (Magnesium Oxide 400 Mg Tab) 400 mg PO [facility] Stop: 11/13/20 08:59 Last Admin: 10/27/20 07:28 Dose: 400 mg Documented by: Metoprolol Succinate (Metoprolol Succ 25mg Ext Rel Tab) 75 mg PO [facility] Stop: 11/17/20 04:44 Last Admin: 10/27/20 07:26 Dose: 75 mg Documented by: Miscellaneous (Urea~Order Awaiting Action) 1 ea N/A QS [facility] Stop: 11/13/20 07:59 Last Admin: 10/27/20 07:28 Dose: Not Given Documented by: Miscellaneous (Remove Nicoderm Patch) 1 ea N/A DAILY@0859 [facility] Stop: 11/14/20 08:58 Last Admin: 10/27/20 07:28 Dose: 1 ea Documented by: Miscellaneous (Carbohydrates For Hypoglycemia ) 15 - 30 gm PO UD PRN PRN Reason: Hypoglycemia Treatment Stop: 11/13/20 06:59 Last Admin: 10/15/20 17:00 Dose: 15 gm Documented by: Miscellaneous Information (Pharmacy Glycemic Mgmt Consult) 1 ea N/A UD PRN PRN Reason: Consult Stop: 11/14/20 09:35 Multivitamins/Minerals (Cerovite Adv Formula Tab) [facility] Stop: 11/13/20 08:59 Last Admin: 10/27/20 07:27 Dose: 1 tab Documented by: Nicotine (Nicotine 21 Mg/24 Hr Tdsy) 21 mg TD M [facility] Stop: 11/13/20 08:59 Last Admin: 10/27/20 07:29 Dose: 21 mg Documented by: Nitroglycerin (Nitroglycerin Sl 0.4 Mg/Tab Tab) 0.4 mg SL UD PRN PRN Reason: Chest Pain Stop: 11/13/20 06:17 Ondansetron HCl (Ondansetron Inj 2 Mg/Ml 2 Ml Vial) 4 mg IV Q6H PRN PRN Reason: Nausea Stop: 11/13/20 06:17 Last Admin: 10/14/20 21:19 Dose: 4 mg Documented by: Polyethylene Glycol (Polyethylene (Miralax) 17 Gm Pack) 17 gm PO DAILY PRN PRN Reason: Constipation Stop: 11/13/20 06:17 Thiamine HCl (Thiamine Hcl 100 Mg Tab) [facility] Stop: 11/13/20 08:59 Last Admin: 10/27/20 07:29 Dose: 100 mg Documented by: Torsemide (Torsemide 10 Mg Tab) [facility] Stop: 11/24/20 15:59 Last Admin: 10/27/20 07:26 Dose: 20 mg Documented by: Venlafaxine HCl (Venlafaxine Hcl Xr 150 Mg Capxr) 150 mg PO [facility] Stop: 11/13/20 08:59 Last Admin: 10/27/20 07:26 Dose: 150 mg Documented by: (1) Alcohol intoxication Complication of substance-induced condition: with unspecified complication Qualified Code(s): F10.929 - Alcohol use, unspecified with intoxication, unspecified
[2020-10-27] MEDS: INSULIN ASPART 100 UNITS/ML 3 ML PEN SC SCH ×4 (08:36→20:34)
[2020-10-27] MEDS: INSULIN DETEMIR FLEXPEN/FLEX TOUCH 100 UNITS/ML 3ML SQ SCH ×2 (08:37→20:33)
[2020-10-27] MEDS: BUPRENORPHINE/NALOXONE 8/2 MG TAB SL SCH ×2 (08:41→20:32)
[2020-10-27] MEDS ORDERED: LOSARTAN POTASSIUM 50 MG TAB PO SCH (09:00)
--- NOTE | 2020-10-27 13:36 | Nephrology Progress Note ---
Date of Service October 27, 2020 Assessment & Plan Admission and Anticipated Discharge Date Admission Date: October 14, 2020 Subjective Assessment & Plan Admission and Anticipated Discharge Date Admission Date: October 14, 2020 Subjective Assessment & Plan (1) Hyperkalemia: Plan: resolved >> cause unclear as he has been off of ACEI for several days before this occurred. Although RTA 4 is also possible given 20+ years of DM. Stop patiromer as almost impossible to Rx this outpt low K diet, he will need some diuretics to keep edema and K under control-- (2) ONDINA (acute kidney injury): Plan: baseline creatinine less than one; was at baseline on presentation. peak value to date 2.1 on 10/22 but since then trending down. renal u/s unremarkable; (3) Proteinuria: Plan: 4.4 gm proteinuria even w/ controlled bp >> concern for nephrotic syndrome, likeliest cause is diabetic nephropathy/hypertensive nephrosclerosis -nephrotic syndrome panel ordered for AM labs plus a 24 hr urine (4) Bilateral edema of lower extremity: Plan: not florid nephrotic syndrome but nephrotic range proteinuria and low serum albumin at admission; though edema is much improved compared to admission even w/o diuretic like to change to ARB given lower likelihood of causing high K. -cont CCB medium dose, toprol -AVOID standing clonidine --restarted diuretics. was on Lasix 40 daily but will need higher dose given nephrotic range proteinuria/Syndrome from Diabetic nephropathy--lasix 80 daily for discharge. Subjective Making urine no new issues. Labs stable. Review of Systems Review of Systems: All systems reviewed & are unremarkable except as noted in Subjective Physical Exam Constitutional: well developed, well nourished and + obese; no acute distress Eyes: EOM intact bilaterally ENMT: Ears: no external ear abnormality Nose: no external nose abnormality Mouth: + dry oral mucous membranes Neck: no nuchal rigidity Respiratory: normal respiratory effort Auscultation: + diminished lung sounds Cardiovascular: Rate/Rhythm: regular rate and regular rhythm Extremities: + edema (trace indurated BLE) Gastrointestinal (Abdomen): Inspection/Auscultation: normal bowel sounds Pe rcussion/Palpation: abdomen soft; abdomen nontender Musculoskeletal: Extremities: strength 5/5 throughout Skin: no rashes, warm and dry Psychiatric: Orientation: alert and oriented x 3 Apperance: + disheveled Eye Contact: + fair eye contact Speech: + pressured speech Results & Data ([facility]) Vital Signs (Past 12 Hours) Vital Signs Temp Pulse Resp BP Pulse Ox 10/27/20 12:15 36.7 C 64 16 138/83 95 10/27/20 07:15 36.4 C L 70 18 117/83 95 10/27/20 03:20 36.5 C 67 20 155/82 H 94
[2020-10-27] MEDS: LOSARTAN POTASSIUM 50 MG TAB PO SCH (13:58)
[2020-10-28] MEDS: HEPARIN SOD 5,000 UNIT/0.5 ML VIAL SQ SCH ×3 (06:19→21:25)
[2020-10-28 06:25] LABS: Abnormal Protein Band 1 DNR mg/24 h (NONE DETECTED); Abnormal Protein Band 2 DNR mg/24 h (NONE DETECTED); Abnormal Protein Band 3 DNR mg/24 h (NONE DETECTED); Creatinine, 24 hr Urine 1.26 g/24 h (0.50-2.15); Protein, Urine 24 Hour 5542 mg/24 h (<150); Ur Protein/Creatinine Rat mg/g 4405 mg/g creat (< OR = 114); Urine Protein/Creatinine Ratio 4.405 (< OR = 0.114)
[2020-10-28] MEDS: MAGNESIUM OXIDE 400 MG TAB PO SCH (08:10)
[2020-10-28] MEDS: VENLAFAXINE HCL XR 150 MG CAPXR PO SCH (08:10)
[2020-10-28] MEDS: BUPRENORPHINE/NALOXONE 8/2 MG TAB SL SCH ×2 (08:10→21:17)
[2020-10-28] MEDS: THIAMINE HCL 100 MG TAB PO SCH (08:10)
[2020-10-28] MEDS: CEROVITE ADV FORMULA TAB PO SCH (08:10)
[2020-10-28] MEDS: ASPIRIN 81 MG ECTAB PO SCH (08:10)
[2020-10-28] MEDS: FOLIC ACID 1 MG TAB PO SCH (08:10)
[2020-10-28] MEDS: ATORVASTATIN 40 MG TAB PO SCH (08:10)
[2020-10-28] MEDS: METOPROLOL SUCC 25MG EXT REL TAB PO SCH (08:10)
[2020-10-28] MEDS: FUROSEMIDE 80 MG TAB PO SCH (08:10)
[2020-10-28] MEDS: DOCUSATE SODIUM 100 MG CAP PO SCH ×2 (08:10→21:19)
[2020-10-28] MEDS: amLODIPine BESYLATE 5 MG TAB PO SCH (08:11)
[2020-10-28] MEDS: CLOTRIMAZOLE 1% CR 15 GM TUBE TOP SCH ×2 (08:11→21:18)
[2020-10-28] MEDS: CYANOCOBALAMIN 500 MCG TABLET (VITAMIN B-12) PO SCH (08:11)
[2020-10-28] MEDS: GABAPENTIN 300 MG CAP PO SCH ×2 (08:11→21:20)
[2020-10-28] MEDS: NICOTINE 21 MG/24 HR TDSY TD SCH (08:11)
[2020-10-28] MEDS: hydrALAZINE HCL 25 MG TAB PO SCH ×2 (08:11→21:19)
[2020-10-28] MEDS: LOSARTAN POTASSIUM 50 MG TAB PO SCH (08:11)
[2020-10-28] MEDS: INSULIN DETEMIR FLEXPEN/FLEX TOUCH 100 UNITS/ML 3ML SQ SCH ×2 (08:12→21:21)
[2020-10-28] MEDS: INSULIN ASPART 100 UNITS/ML 3 ML PEN SC SCH ×4 (08:12→21:22)
--- NOTE | 2020-10-28 09:19 | Pharmacy Report ---
Pharmacy Glycemic Short Note 2 - Date of Service October 28, 2020 - Glycemic Short BSG Results (Last 24 hours): 10/27/20 10/27/20 10/27/20 11:24 16:35 20:02 POC Glucose 173 H 111 H 193 H 10/28/20 07:30 POC Glucose 240 H OUTPATIENT ANTIDIABETIC REGIMEN: * Levemir 45 units SC HS * Novolog SSI and Ozempic * HbA1c: 8.3% (10/14/20) ASSESSMENT: 10/28 * Pt has received 126 units of insulin over the past 24hrs, blood sugars ranging 111-240mg/dl * 90 units of basal with Levemir * 36 units of bolus with NovoLog * AM Fasting BSG = 240mg/dl - increase Levemir * No changes needed to CF/CR at this time 10/26 * Pt has received 108 units of insulin over the past 24hrs * 60 units of basal with Levemir * 48 units of bolus with NovoLog * BSGs remain elevated in the morning and trend downwards after large doses of NovoLog. * AM fasting BSG is elevated in the morning despite BSG in goal range at HS indicating the basal insulin is not lasting 24hrs. Levemir typically is dosed BID based on its duration of action. Will increase Levemir to BID and titrate based on BSGs * No changes needed to CF/CR 10/25: * Dewayne received a total of 74 units of insulin yesterday (50 units basal + 24 units bolus) * BSGs were: [id number] mg/dL * Fasting BSG was elevated at 239 mg/dL this AM * No snacking or eating prior to this BSG * Will increase Lantus by 20% * Postprandial hyperglycemia is noted so will tighten carb ratio 10/22: * Pt has received 69 units of insulin over the past 24hrs * 45 units of basal with Levemir * 24 units of bolus with NovoLog * majority of BSGs were above goal * Fasting BSG severely elevated; 316 mg/dL. RN reports that patient ate candy prior to fasting BSG check. In addition to this patient was given IV insulin + dextrose IV x 2 overnight for hyperkalemia, therefore fasting BSG is unreali zable. Will slightly increase basal dose based on elevated fasting on 10/20 & 10/21. * Lunch BSG elevated x 2 days, therefore novolog will be tightened. PLAN FOR INPATIENT GLYCEMIC CONTROL: * Basal insulin - increase * Levemir 55 units SQ BID * Bolus insulin - no change * NovoLog per scale ACHS or Q6hrs while NPO * Goal Range: Low 110 mg/dL - High 140 mg/dL * Correction Factor: 20 mg/dL/unit * Nutritional / Prandial insulin per carb ratio of 1 unit per 5 grams CHO consumed PLAN FOR DISCHARGE: * HbA1c of 8.3% suggests poor outpatient glycemic control * Increase basal insulin to BID dosing for better fasting fasting BSG control * Patient may benefit from fixed dose of NovoLog with meals - rec starting with 6 units TID meals and titrate per outpatient provider
[2020-10-28 09:38] LABS: BUN Creatinine Ratio 34.3 (10-20); Creatinine Clr Calc Pharmacy 58.1 ml/min; Est GFR (Non-African American) 42.3 ml/min; Phosphorus 3.4 mg/dl (2.5-4.9)
--- NOTE | 2020-10-28 13:42 | Nephrology Progress Note ---
Date of Service October 28, 2020 Assessment & Plan Admission and Anticipated Discharge Date Admission Date: October 14, 2020 Subjective Subjective Assessment & Plan (1) Hyperkalemia: Plan: resolved >> cause unclear as he has been off of ACEI for several days before this occurred. Although RTA 4 is also possible given 20+ years of DM. Stop patiromer as almost impossible to Rx this outpt low K diet, he will need some diuretics to keep edema and K under control-- (2) ONDINA (acute kidney injury): Plan: baseline creatinine less than one; was at baseline on presentation. peak value to date 2.1 on 10/22 but since then trending down. renal u/s unremarkable; (3) Proteinuria: Plan: 4.4 gm proteinuria even w/ controlled bp >> concern for nephrotic syndrome, likeliest cause is diabetic nephropathy/hypertensive nephrosclerosis -nephrotic syndrome panel ordered for AM labs plus a 24 hr urine (4) Bilateral edema of lower extremity: Plan: not florid nephrotic syndrome but nephrotic range proteinuria and low serum albumin at admission; though edema is much improved compared to admission even w/o diuretic like to change to ARB given slightly lower likelihood of causing high K. -cont CCB medium dose, toprol -AVOID standing clonidine --restarted diuretics. was on Lasix 40 daily but will need higher dose given nephrotic range proteinuria/Syndrome from Diabetic nephropathy--lasix 80 daily for discharge. nephrology follow up 2 weeks Subjective Making urine no new issues. Labs stable. Review of Systems Review of Systems: All systems reviewed & are unremarkable except as noted in Subjective Physical Exam Constitutional: well developed, well nourished and + obese; no acute distress Eyes: EOM intact bilaterally ENMT: Ears: no external ear abnormality Nose: no external nose abnormality Mouth: + dry oral mucous membranes Neck: no nuchal rigidity Respiratory: normal respiratory effort Auscultation: + diminished lung sounds Cardiovascular: Rate/Rhythm: regular rate and regular rhythm Extremities: + edema (trace indurated BLE) Gastrointestinal (Abdomen): Inspection/Auscultation: normal bowel sounds Percussion/Palpation: abdomen soft; abdomen nontender Musculoskeletal: Extremities: strength 5/5 throughout Skin: no rashes, warm and dry Psychiatric: Orientation: alert and oriented x 3 Apperance: + disheveled Eye Contact: + fair eye contact Speech: + pressured speech Results & Data ([facility]) Results & Data ([facility]) Vital Signs (Past 12 Hours) Vital Signs Temp Pulse Pulse Resp BP Pulse Ox 10/28/20 11:03 36.3 C L 69 18 109/74 92 10/28/20 07:14 36.7 C 69 20 130/79 93 10/28/20 07:05 67 10/28/20 03:44 36.6 C 64 18 146/93 H 94
--- NOTE | 2020-10-28 19:31 | Hospitalist Progress Note ---
Date of Service October 28, 2020 Assessment & Plan (1) Alcohol intoxication: Plan: Patient is a 55 yr male presents with lower extremity edema and alcoholism. B/L Lower extremity edema H/O Chronic LE edema DD: Hypoalbuminemia, Diastolic CHF, Cellulitis, Lymphedema, venous stasis Left arm wound -ECHO: EF 55 to 60%. Moderate concentric LVH. Grade 1 diastolic dysfunction. -Venous Doppler:No evidence of deep venous thrombus within the bilateral lower extremities. -Wound Cx:MSSA Received IV Lasix Monitor Volume status Dietitian consulted Continue Rocephin Day #5>> Completed PO Abx Leg edema much improved Advised to follow-up with cardiology as outpatient Resumed PO Lasix Advised to follow up with Cardiology upon discharge Acute Kidney Injury Cr:1.8 -> 2.1>1.7 Avoid nephrotoxic agents as able Monitor renal function Appreciate Nephrology Input hx of proteinuria, currently 4.4 g proteinuria Nephrotic syndrome work-up ordered by nephrology pending Hyperkalemia Low potassium diet Potassium 5.3 -> 6.2> 4.5 ordered Kayexalate, IV insulin Nephrology consulted for further eval and treatment Started on patiromer for hyperkalemia, potassium then normalized, patiromer stopped (10/24) 10/25 potassium elevated - received kayexalate --Discharge recommendations from nephrology regarding ONDINA, proteinuria, hyperkalemia: Discharge patient on losartan 50 mg daily and furosemide 80 mg daily Follow-up with nephrology in 2 weeks Visual hallucinations Patient admitted to the hospital and treated for alcohol withdrawal Believed he would be out of the window for alcohol withdrawal, however there is a possibility Also possible delirium or underlying psychiatric disorder Appreciate psychiatry Input Needs follow-up with psychiatry upon discharge Mild elevation in troponin H/O chronic elevation of troponin Denies chest pain ECHO as above EKG unchanged from prior Hypomagnesemia replace electrolytes as needed Alcoholism Continue thiamine, folic acid Completed Librium protocol Hold Ativan for Excess sedation Needs rehab placement Tobacco abuse: Nicotine patch. DM II HbA1c 8.3 Continue insulin therapy Monitor BGs Peripheral neuropathy: Continue gabapentin Hypertensive Urgency Hypertension BP Variable Continue current meds CAD S/P Stent : Continue aspirin, statin, Metoprolol Depression: Continue Effexor Chronic pain: on Suboxone. Obstructive sleep apnea: Noncompliant with CPAP. DVT Px: Heparin SQ Code Status Full Code Admission and Anticipated Discharge Date Admission Date: October 14, 2020 Subjective Patient is seen and examined at bedside States feeling much better today Denies any hallucinations Leg edema much improved Denies chest pain, shortness of breath, dizziness, nausea, abdominal pain Has chronic back pain Discussed with nephrology today Review of Systems Review of Systems: All systems reviewed & are unremarkable except as noted in Subjective Physical Exam Physical Exam: Physical Exam: Vitals signs as noted above General Appearance:Moderately built and nourished, no apparent distress Head: normocephalic, Atraumatic Eyes: normal inspection, EOMI Neck: supple, Trachea midline Respiratory/Chest: Normal breath sounds, CTA, No accessory muscle use Cardiovascular: S1, S2, No murmur Abdomen/GI:Soft, Non tender, Bowel sounds present Extremities/Musculoskeletal:normal inspection, B/L LE edema much improved Erythema resolved Neurologic/Psych:AAOX3, grossly no focal neurological deficits Skin: normal color, warm Results & Data Results & Data ([facility]) Vital Signs (Past 12 Hours) Vital Signs Temp Pulse Pulse Resp BP Pulse Ox 10/28/20 15:26 63 10/28/20 15:11 36.9 C 66 16 124/83 95 10/28/20 11:03 36.3 C L 69 18 109/74 92 Laboratory Results BMP 10/28/20 08:29 Sodium 136 Potassium Chloride 102 Carbon Dioxide 30 BUN 60 H Creatinine 1.76 H Glucose 263 H Calcium 9.0 (1) Alcohol intoxication Complication of substance-induced condition: with unspecified complication Qualified Code(s): F10.929 - Alcohol use, unspecified with intoxication, unspecified
[2020-10-29] MEDS: HEPARIN SOD 5,000 UNIT/0.5 ML VIAL SQ SCH (05:32)
[2020-10-29] MEDS: LOSARTAN POTASSIUM 50 MG TAB PO SCH (07:49)
[2020-10-29] MEDS: ASPIRIN 81 MG ECTAB PO SCH (07:49)
[2020-10-29] MEDS: FOLIC ACID 1 MG TAB PO SCH (07:49)
[2020-10-29] MEDS: CEROVITE ADV FORMULA TAB PO SCH (07:50)
[2020-10-29] MEDS: CYANOCOBALAMIN 500 MCG TABLET (VITAMIN B-12) PO SCH (07:50)
[2020-10-29] MEDS: DOCUSATE SODIUM 100 MG CAP PO SCH (07:50)
[2020-10-29] MEDS: VENLAFAXINE HCL XR 150 MG CAPXR PO SCH (07:51)
[2020-10-29] MEDS: METOPROLOL SUCC 25MG EXT REL TAB PO SCH (07:51)
[2020-10-29] MEDS: FUROSEMIDE 80 MG TAB PO SCH (07:51)
[2020-10-29] MEDS: MAGNESIUM OXIDE 400 MG TAB PO SCH (07:52)
[2020-10-29] MEDS: hydrALAZINE HCL 25 MG TAB PO SCH (07:52)
[2020-10-29] MEDS: THIAMINE HCL 100 MG TAB PO SCH (07:53)
[2020-10-29] MEDS: ATORVASTATIN 40 MG TAB PO SCH (07:53)
[2020-10-29] MEDS: NICOTINE 21 MG/24 HR TDSY TD SCH (07:54)
[2020-10-29] MEDS: CLOTRIMAZOLE 1% CR 15 GM TUBE TOP SCH (07:54)
[2020-10-29] MEDS: BUPRENORPHINE/NALOXONE 8/2 MG TAB SL SCH (08:02)
[2020-10-29] MEDS: GABAPENTIN 300 MG CAP PO SCH (08:47)
[2020-10-29] MEDS: INSULIN DETEMIR FLEXPEN/FLEX TOUCH 100 UNITS/ML 3ML SQ SCH (08:47)
[2020-10-29] MEDS: INSULIN ASPART 100 UNITS/ML 3 ML PEN SC SCH (08:49)
[2020-10-29] MEDS ORDERED: LOSARTAN POTASSIUM 50 MG TAB PO SCH (09:00)
--- NOTE | 2020-10-29 09:26 | Nephrology Progress Note ---
Date of Service October 29, 2020 Assessment & Plan Admission and Anticipated Discharge Date Admission Date: October 14, 2020 Subjective Subjective Assessment & Plan (1) Hyperkalemia: Plan: resolved >> cause unclear as he has been off of ACEI for several days before this occurred. Although RTA 4 is also possible given 20+ years of DM. Stop patiromer as almost impossible to Rx this outpt low K diet, he will need some diuretics to keep edema and K under control--lasix 80 daily (2) ONDINA (acute kidney injury): Plan: baseline creatinine less than one; was at baseline on presentation. peak value to date 2.1 on 10/22 but since then trending down somewhat and now stable. renal u/s unremarkable; (3) Proteinuria: Plan: 4.4 gm proteinuria even w/ controlled bp >> concern for nephrotic syndrome, likeliest cause is diabetic nephropathy/hypertensive nephrosclerosis -nephrotic syndrome panel ordered --Pending even after 5 days (4) Bilateral edema of lower extremity: Plan: not florid nephrotic syndrome but nephrotic range proteinuria and low serum albumin at admission; though edema is much improved compared to admission like to change to ARB given slightly lower likelihood of causing high K. Losartan 50. -cont CCB medium dose, toprol -AVOID standing clonidine --restarted diuretics. was on Lasix 40 daily but will need higher dose given nephrotic range proteinuria/Syndrome from Diabetic nephropathy--lasix 80 daily for discharge. nephrology follow up 2 weeks. at this time just waiting for placement for alcohol rehab. Can do labs 2 times a week now. Subjective Making urine no new issues. Labs stable. Review of Systems Review of Systems: All systems reviewed & are unremarkable except as noted in Subjective Physical Exam Constitutional: well developed, well nourished and + obese; no acute distress Eyes: EOM intact bilaterally ENMT: Ears: no external ear abnormality Nose: no external nose abnormality Mouth: + dry oral mucous membranes Neck: no nuchal rigidity Respiratory: normal respiratory effort Auscultation: + diminished lung sounds Cardiovascular: Rate/Rhythm: regular rate and regular rhythm Extremities: + edema (trace indurated BLE) Gastrointestinal (Abdomen): Inspection/Auscultation: normal bowel sounds Percussion/Palpation: abdomen soft; abdomen nontender Musculoskeletal: Extremities: strength 5/5 throughout Skin: no rashes, warm and dry Psychiatric: Orientation: alert and oriented x 3 Apperance: + disheveled Eye Contact: + fair eye contact Speech: + pressured speech Results & Data ([facility]) Vital Signs (Past 12 Hours) Vital Signs Temp Pulse Pulse Resp BP Pulse Ox 10/29/20 08:07 36.4 C L 84 20 132/85 93 10/29/20 03:00 36.6 C 69 20 158/66 H 96 10/29/20 00:16 65 10/28/20 23:00 36.6 C 63 20 148/92 H 97
--- NOTE | 2020-10-29 09:30 | Hospitalist Progress Note ---
Date of Service October 29, 2020 Assessment & Plan (1) Alcohol intoxication: Plan: Patient is a 55 yr male presents with lower extremity edema and alcoholism. B/L Lower extremity edema H/O Chronic LE edema DD: Hypoalbuminemia, Diastolic CHF, Cellulitis, Lymphedema, venous stasis Left arm wound -ECHO: EF 55 to 60%. Moderate concentric LVH. Grade 1 diastolic dysfunction. -Venous Doppler:No evidence of deep venous thrombus within the bilateral lower extremities. -Wound Cx:MSSA Received IV Lasix Monitor Volume status Dietitian consulted Continue Rocephin Day #5>> Completed PO Abx Leg edema much improved Advised to follow-up with cardiology as outpatient Advised to follow up with Cardiology upon discharge Continue Po lasix as per Nephrology Acute Kidney Injury Cr:1.8 -> 2.1>1.7 Avoid nephrotoxic agents as able Monitor renal function Appreciate Nephrology Input hx of proteinuria, currently 4.4 g proteinuria Nephrotic syndrome work-up ordered by nephrology pending Hyperkalemia Low potassium diet Potassium 5.3 -> 6.2> 4.5 ordered Kayexalate, IV insulin Nephrology consulted for further eval and treatment Started on patiromer for hyperkalemia, potassium then normalized, patiromer stopped (10/24) 10/25 potassium elevated - received kayexalate --Discharge recommendations from nephrology regarding ONDINA, proteinuria, hyperkalemia: Discharge patient on losartan 50 mg daily and furosemide 80 mg daily Follow-up with nephrology in 2 weeks Visual hallucinations Patient admitted to the hospital and treated for alcohol withdrawal Believed he would be out of the window for alcohol withdrawal, however there is a possibility Also possible delirium or underlying psychiatric disorder Appreciate psychiatry Input Needs follow-up with psychiatry upon discharge Mild elevation in troponin H/O chronic elevation of troponin Denies chest pain ECHO as above EKG unchanged from prior Hypomagnesemia replace electrolytes as needed Alcoholism Continue thiamine, folic acid Completed Librium protocol Hold Ativan for Excess sedation Discharge to Rehab facility today Tobacco abuse: Nicotine patch. DM II HbA1c 8.3 Continue insulin therapy Monitor BGs Peripheral neuropathy: Continue gabapentin Hypertensive Urgency Hypertension BP Variable Continue Amlodipine, Losartan, Metoprolol Also on Lasix CAD S/P Stent : Continue aspirin, statin, Metoprolol Depression: Continue Effexor Chronic pain: on Suboxone. Obstructive sleep apnea: Noncompliant with CPAP. DVT Px: Heparin SQ Code Status Full Code Admission and Anticipated Discharge Date Admission Date: October 14, 2020 Subjective Patient is seen and examined at bedside No new complaints Discussed with Nephrology today Denies chest pain, shortness of breath, dizziness, nausea, abdominal pain Plan to discharge to Rehab facility today Review of Systems Review of Systems: All systems reviewed & are unremarkable except as noted in Subjective Physical Exam Physical Exam: Physical Exam: Vitals signs as noted above General Appearance:Moderately built and nourished, no apparent distress Head: normocephalic, Atraumatic Eyes: normal inspection, EOMI Neck: supple, Trachea midline Respiratory/Chest: Normal breath sounds, CTA, No accessory muscle use Cardiovascular: S1, S2, No murmur Abdomen/GI:Soft, Non tender, Bowel sounds present Extremities/Musculoskeletal:normal inspection, B/L LE edema much improved Erythema resolved Neurologic/Psych:AAOX3, grossly no focal neurological deficits Skin: normal color, warm Results & Data Results & Data ([facility]) Vital Signs (Past 12 Hours) Vital Signs Temp Pulse Pulse Resp BP Pulse Ox 10/29/20 08:07 36.4 C L 84 20 132/85 93 10/29/20 03:00 36.6 C 69 20 158/66 H 96 10/29/20 00:16 65 10/28/20 23:00 36.6 C 63 20 148/92 H 97 Laboratory Results [facility] 10/28/20 08:29 Sodium 136 Potassium Chloride 102 Carbon Dioxide 30 BUN 60 H Creatinine 1.76 H Glucose 263 H Calcium 9.0 (1) Alcohol intoxication Complication of substance-induced condition: with unspecified complication Qualified Code(s): F10.929 - Alcohol use, unspecified with intoxication, unspecified
[2020-10-29] MEDS ORDERED: hydrALAZINE HCL 25 MG TAB PO PRN (09:46)
--- NOTE | 2020-10-29 09:56 | Discharge Summary ---
Date of Service October 29, 2020 Admission HPI Per Admitting Provider CHIEF COMPLAINT: Lower extremity edema and alcoholism. HISTORY OF PRESENT ILLNESS: This is a 55-year-old male with past medical history significant for type 2 diabetes, hypertension, hyperlipidemia, chronic alcohol abuse, CAD status post stent, chronic back pain, obstructive sleep apnea, noncompliant with CPAP, history of tobacco abuse, neuropathy, chronic kidney disease stage III, emphysema, fatty liver, history of anemia, history of depression, generalized anxiety disorder, who presents with lower extremity swelling. The patient has history of lower extremity swelling in the past. He is on diuretics at home, but the patient says since last 2 weeks, the swelling is getting progressively worse. It is up to his thigh and is painful, that is the reason he came to the ER. The patient, last time he was here in July, when he was supposed to go to alcohol rehab, but the patient stated they could not find a bed and he did not go to rehab.Currently he has been drinking half a gallon of vodka every day. History of withdrawal seizures in the past. He also has biopsy of left arm lesion and showing well-differentiated invasive squamous cell carcinoma and there is a plan for Mohs procedure, the patient states in November. Currently, resting comfortably and hemodynamically stable. Denies any chest pain. Has chronic cough from his smoking and shortness of breath was because of his smoking. Mild headache, no neck pain. Hearing is not good. He has runny nose. Denies any fever or chills. No nausea, no abdominal pain. He says he is somewhat constipated and when his constipation is severe, he gets some blood in the stools. He is micturating fine. He says he has noticed some blood in the urine. He lives alone, ambulates okay. Appetite is okay. No difficulty swallowing. Admission Exam Per Admitting Provider PHYSICAL EXAMINATION: GENERAL: The patient is morbidly obese, not in acute distress. VITAL SIGNS: Temperature 36.8, pulse 84, respiratory rate 18, blood pressure 140/117, oxygen 98% on room air. HEENT: Pupils equal, round and reactive to light. Oral moist mucosa moist. NECK: No JVD. No neck masses. CARDIOVASCULAR: S1 and S2 heard, regular rate and rhythm. No murmur, no gallop. RESPIRATORY SYSTEM: Normal AP diameter. No accessory muscle use. No wheezing, no crackles. ABDOMEN: Soft, bowel sounds present, nontender, no distention. CENTRAL NERVOUS SYSTEM: Cranial nerves II-XII grossly intact, nonfocal. EXTREMITIES: Bilateral lower extremity gross pedal edema present. Mild eryth ematous changes seen. Also he has a left arm skin lesion excision site, some mild drainage. Principal Diagnosis Acute diastolic heart failure Cellulitis--resolved Acute kidney injury Hyperkalemia Alcoholism Tobacco use disorder Hypertensive Discharge Data Allergies Allergy/AdvReac Type Severity Reaction Status Date / Time No Known Allergies Allergy Verified 10/14/20 00:54 Consultations 10/14/20 00:42 ED Decision to Admit Stat 10/21/20 19:28 Consult Nephrology Routine 10/23/20 16:22 Consult Psychiatry Routine Ordered Studies 10/14/20 07:15 US venous doppler LE BI Urgent 10/23/20 08:00 US renal/blad retro comp Routine 10/24/20 10:08 US liver Routine Hospital Course (1) Alcohol intoxication: Patient is a 55 yr male presents with lower extremity edema and alcoholism. B/L Lower extremity edema H/O Chronic LE edema DD: Hypoalbuminemia, Diastolic CHF, Cellulitis, Lymphedema, venous stasis Left arm wound -ECHO: EF 55 to 60%. Moderate concentric LVH. Grade 1 diastolic dysfunction. -Venous Doppler:No evidence of deep venous thrombus within the bilateral lower extremities. -Wound Cx:MSSA Received IV Lasix Monitor Volume status Dietitian consulted Continue Rocephin Day #5>> Completed PO Abx Leg edema much improved Advised to follow-up with cardiology as outpatient Advised to follow up with Cardiology upon discharge Continue Po lasix as per Nephrology Acute Kidney Injury Cr:1.8 -> 2.1>1.7 Avoid nephrotoxic agents as able Monitor renal function Appreciate Nephrology Input hx of proteinuria, currently 4.4 g proteinuria Nephrotic syndrome work-up ordered by nephrology pending Hyperkalemia Low potassium diet Potassium 5.3 -> 6.2> 4.5 ordered Kayexalate, IV insulin Nephrology consulted for further eval and treatment Started on patiromer for hyperkalemia, potassium then normalized, patiromer stopped (10/24) 10/25 potassium elevated - received kayexalate --Discharge recommendations from nephrology regarding ONDINA, proteinuria, hyperkalemia: Discharge patient on losartan 50 mg daily and furosemide 80 mg daily Follow-up with nephrology in 2 weeks Visual hallucinations Patient admitted to the hospital and treated for alcohol withdrawal Believed he would be out of the window for alcohol withdrawal, however there is a possibility Also possible delirium or underlying psychiatric disorder Appreciate psychiatry Input Needs follow-up with psychiatry upon discharge Mild elevation in troponin H/O chronic elevation of troponin Denies chest pain ECHO as above EKG unchanged from prior Hypomagnesemia replace electrolytes as needed Alcoholism Continue thiamine, folic acid Completed Librium protocol Hold Ativan for Excess sedation Discharge to Rehab facility today Tobacco abuse: Nicotine patch. DM II HbA1c 8.3 Continue insulin therapy Monitor BGs Peripheral neuropathy: Continue gabapentin Hypertensive Urgency Hypertension BP Variable Continue Amlodipine, Losartan, Metoprolol Also on Lasix CAD S/P Stent : Continue aspirin, statin, Metoprolol Depression: Continue Effexor Chronic pain: on Suboxone. Obstructive sleep apnea: Noncompliant with CPAP. DVT Px: Heparin SQ Code Status Full Code Total Time Total Time Spent Total Time Spent (In Minutes): 44 minutes Discharge Plan Discharge Items Patient Disposition: Drug & Alcohol Rehab Reason For Visit: LOWER EXTREMITY EDEMA Discharge Diagnosis: Acute diastolic heart failure Cellulitis--resolved Acute kidney injury Hyperkalemia Alcoholism Tobacco use disorder Hypertensive Activity: Per Instructions section Exercise/Sports: Gradually increase as tolerated Non-emergency contact: Primary Care Provider and Master Fire Control Technician Call non-emergency contact if: you have any medication questions, your symptoms worsen, your pain is concerning for you and you have a fever Follow-up/Referrals: Charity Kasper MD [Primary Care Provider] - Diet: Carb Consistent or DM2, Heart Healthy and Low Potassium (2gm) Fluids: 2000ml (8 cups) Addtl Attending Provider Instructions: Follow-up with your primary care physician in 1 week upon discharge from rehab facility Follow-up with your charger Dr. Alexander in 2 weeks ad advised Follow-up with your sewing line baler as recommended Consider following with a psychiatrist if your hallucinations persist for further management Seek immediate medical attention if your symptoms reoccur or worsen Please take all medications as instructed on discharge list below. Please call if you have any questions or problems. You can reach a [facility] hospitalist on duty at [facility] 24 hours a day by calling [phone] Call your Primary Care doctor if any of the following symptoms or problems start or get worse: * Shortness of breath or difficulty breathing * Wake up at night short of breath * Chest pain * Cough * Swelling of your hands, feet, or legs * More fatigued or tired with your normal activity * Palpitations - sudden fast heart beats WEIGHT * Weigh yourself every morning after using the bathroom. * Use the same scale. * Wear the same amount of clothing. * Write your weight down on a chart. * Call your Primary Care doctor if you gain more than 2-3 pounds in 1-2 days. MEDICATIONS * Use this discharge instruction sheet for medication instructions. * Take your medications at the time your doctor ordered. * Do not skip a dose of your medicines. * If you miss a dose of medicine, take it as soon as possible, but DO NOT DOUBLE A DOSE. * Read your medicine information when you get home. * Know all of the side effects of your medicine. If in doubt, ask your pharmacist * Call your Primary Care doctor's office if you have any side effects. * Be sure all of your doctors know what medicine and herbs you take (including cold, flu, and herbal medicine). Take the following with you to your follow-up doctor appointments: * Weight Chart * Medication List * List of questions Do not drink excessive alcohol, beer or wine. Pending Studies at Discharge: No Stand-Alone Forms: My [facility] Skilled Items Patient informed of condition?: Yes DNR: No Discharge Level of Care: Other Communicable Disease: No Discharge Prognosis: Stable Lines: None Urinary Catheter: No Medications and DC Order Prescriptions: New losartan 50 mg Tablet 50 mg PO QAM Qty: 30 RF: 0 Continued insulin aspart U-100 [Novolog Flexpen U-100 Insulin] 100 unit/mL Insulin Pen See Rx Instructions .ROUTE .COMPLEX RF: 0 folic acid 1 mg tablet 1 mg PO QAM RF: 0 buprenorphine-naloxone 8-2 mg tablet, sublingual 1 tab SUBLINGUAL BID RF: 0 venlafaxine [Effexor XR] 150 mg capsule,extended release 24hr 150 mg PO QAM RF: 0 aspirin [Ecotrin Low Strength] 81 mg tablet,delayed release (DR/EC) 81 mg PO QAM RF: 0 nicotine [Nicoderm CQ] 21 mg/24 hr Patch 24 Hour 21 mg transdermal QAM Qty: 14 RF: 1 gabapentin 300 mg Capsule 300 mg PO BID Qty: 60 RF: 0 magnesium oxide 400 mg (241.3 mg magnesium) Tablet 400 mg PO QAM Qty: 30 RF: 0 thiamine HCl (vitamin B1) [Vitamin B-1] 100 mg Tablet 100 mg PO QAM Qty: 30 RF: 1 multivitamin Tablet 1 tab PO DAILY RF: 0 atorvastatin 80 mg Tablet 80 mg PO DAILY RF: 0 urea 20 % Cream 1 applic TOPICAL BID RF: 0 naloxone 0.4 mg/mL Solution 0 mg intranasal DIRECTED PRN (Reason: OVERSEDATION) RF: 0 cyanocobalamin (vitamin B-12) [Vitamin B-12] 1,000 mcg Tablet 1,000 mcg PO DAILY RF: 0 nitroglycerin [Nitrostat] 0.4 mg Tablet, Sublingual 0.4 mg sublingual DIRECTED PRN (Reason: Chest Pain) RF: 0 clotrimazole 1 % Cream 1 applic TOPICAL BID RF: 0 Ozempic 1 mg/dose (2 mg/1.5 mL) Pen Injector 0.5 mg SUBCUT WK RF: 0 albuterol sulfate 2.5 mg /3 mL (0.083 %) Solution For Nebulization 2.5 mg INHALATION QID PRN (Reason: Shortness Of Breath Or Wheezing) RF: 0 disulfiram 500 mg tablet 500 mg PO DAILY Qty: 14 RF: 0 Levemir FlexTouch U-100 Insuln 100 unit/mL (3 mL) insulin pen 45 unit subcut HS Qty: 15 RF: 0 amlodipine [Norvasc] 5 mg Tablet 5 mg PO QAM Qty: 30 RF: 0 Changed furosemide 40 mg Tablet 80 mg PO QAM Qty: 60 RF: 0 metoprolol succinate [Toprol XL] 50 mg tablet extended release 24 hr 75 mg PO QAM 30 Days Qty: 45 RF: 0 Discontinued lisinopril [Zestril] 40 mg tablet 40 mg PO QAM Qty: 30 RF: 0 Discharge Orders: Discharge Order (Routine); Ordered 10/29/20 Ordered By: Tico Bullock Admission Data Admit Date/Time: 10/14/20 01:51 Attending Provider: Tico Bullock Admit Provider: Jonathan Payne Primary Care Provider: Charity Kasper Other Providers: Jonathan Payne ; Tico Bullock ; Amber Cornell ; Linda Neff ; Dr Tirso ; Elana Alves ; Juvenal Michaels Other Interventions: Discharge Summary Assessment (RN) Last Done: 10/29/20 09:36
[2020-10-30] MEDS ORDERED: amLODIPine BESYLATE 5 MG TAB PO SCH (09:00)
[2020-11-01 16:12] LABS: ANCA Screen Negative (Negative); Albumin 2.6 g/dL (3.8-4.8); Alpha 1 Globulin 0.4 g/dL (0.2-0.3); Alpha 2 Globulin 1.4 g/dL (0.5-0.9); Anti Nuclear Antibody Screen POSITIVE (NEGATIVE); Beta-1-Globulin 0.6 g/dL (0.4-0.6); Beta-2-Globulin 0.5 g/dL (0.2-0.5); Complement C3 171 mg/dL (82-185); Complement Total(CH50) >60 U/mL (31-60); Free Kappa 102.8 mg/L (3.3-19.4); Free Kappa/Lambda Ratio 1.71 (0.26-1.65); Free Lambda 60.2 mg/L (5.7-26.3); Gamma Globulin 1.4 g/dL (0.8-1.7); Monoclonal Protein Band 1 DNR g/dL (NONE DETECTED); Monoclonal Protein Band 2 DNR g/dL (NONE DETECTED); Monoclonal Protein Band 3 DNR g/dL (NONE DETECTED); Total Protein 6.8 g/dL (6.1-8.1)
[2020-11-02 08:15] LABS: ANA Pattern Nuclear, Homogeneous
--- NOTE | 2020-11-09 13:56 | Coding Query ---
CODING QUERY To promote full compliance with coding requirements relating to patient care, provider participation is requested in all cases of court assistant uncertainty. Please assist us with the question(s) below: Coding Question(s): Discharge summary states patient with Acute Diastolic Heart Failure. This is only documented on discharge and no where else in the chart. Please clarify below: ( ) Patient with Acute Diastolic Heart Failure ( ) Acute Diastolic Heart Failure Ruled Out ( ) Other Please Explain: Thank you Jeffrey Flores Principal Diagnosis: "that condition established after study, to be chiefly responsible for occasioning the admission of the patient to the hospital for care." Co-Existing Principal Diagnosis: "when two or more diagnoses equally meet the criteria for principal diagnosis as determined by the circumstances of admission, diagnostic work up, and/or therapy provided, and the Alphabetic Index, Tabular List, or another coding guideline does not provide sequencing direction, any one of the diagnoses may be sequenced first." "When the physician has documented what appears to be a current diagnosis in the body of the record, but has not included the diagnosis in the final diagnostic statement, the physician should be asked whether the diagnosis should be added." (Source Coding [facility] 2 QTR90. p3-4) REGAN
== END 2020-10-29 10:45 | disposition alcohol treatment (31) | DRG 291 ==
LOC: ED 21:53 → 2W 10-14 01:51 → SUATTDRO 10-14 01:51 → 2W 10-14 06:00

== ENCOUNTER 2020-12-02 13:09 | Inpatient (IN) ==
[2020-12-02] MEDS ORDERED: SODIUM CHLORIDE 0.9% 1000ML 1,000 ML IV SCH (14:30)
--- NOTE | 2020-12-02 14:39 | Emergency Department Note ---
History of Present Illness General Chief complaint: Detox Request Stated complaint: ARM ISSUE, HAD CANCER CUT OUT Time Seen by Provider: 12/02/20 14:22 History of Present Illness Provider complaint: Alcohol abuse detox request 55-year-old male presents emergency department for alcohol abuse and request for detox. Patient states he recently got back from a detox facility but then started drinking again when he got home. Patient states he is fallen several times at home. Patient states he has not been taking any of his medications.Patient states he has been drinking half a gallon of vodka daily for the last 2 weeks. Patient denies any suicidal homicidal ideation. Patient states he has not been eating and just drinking alcohol. Home Medications Medication Instructions Recorded Confirmed Type insulin aspart U-100 100 unit/mL See Rx Instructions .ROUTE .COMPLEX 12/16/17 12/02/20 History (3 mL) subcutaneous pen (Novolog Flexpen U-100 Insulin aspart) aspirin 81 mg tablet,delayed 81 mg PO QAM 08/26/19 12/02/20 History release (Ecotrin Low Strength) venlafaxine 150 mg 150 mg PO QAM 08/26/19 10/14/20 History capsule,extended release 24 hr (Effexor XR) buprenorphine 8 mg-naloxone 2 mg 1 tab SUBLINGUAL BID 01/16/20 12/02/20 History sublingual tablet folic acid 1 mg tablet 1 mg PO QAM 01/16/20 12/02/20 History gabapentin 300 mg capsule 300 mg PO BID #60 cap 03/07/20 12/02/20 Rx magnesium oxide 400 mg (241.3 mg 400 mg PO QAM #30 tab 03/07/20 12/02/20 Rx magnesium) tablet nicotine 21 mg/24 hr daily 21 mg TRANSDERMAL QAM #14 ea 03/07/20 12/02/20 Rx transdermal patch (Nicoderm CQ) thiamine HCl (vitamin B1) 100 mg 100 mg PO QAM #30 tab 03/07/20 12/02/20 Rx tablet (Vitamin B-1) albuterol sulfate 2.5 mg INHALATION QID PRN 07/24/20 12/02/20 History atorvastatin 80 mg tablet 80 mg PO DAILY 07/24/20 12/02/20 History clotrimazole 1 % topical cream 1 applic TOPICAL BID 07/24/20 12/02/20 History cyanocobalamin (vitamin B-12) 1,000 mcg PO DAILY 07/24/20 12/02/20 History 1,000 mcg tablet (Vitamin B-12) multivitamin 1 tab PO DAILY 07/24/20 12/02/20 History naloxone 0.4 mg/mL injection 0 mg INTRANASAL DIRECTED PRN 07/24/20 12/02/20 History solution nitroglycerin 0.4 mg sublingual 0.4 mg SUBLINGUAL DIRECTED PRN 07/24/20 12/02/20 History tablet (Nitrostat) semaglutide 1 mg/dose (2 mg/1.5 0.5 mg SUBCUT WK 07/24/20 12/02/20 History mL) subcutaneous pen injector (Ozempic) urea 20 % topical cream 1 applic TOPICAL BID 07/24/20 12/02/20 History disulfiram 500 mg tablet 500 mg PO DAILY #14 tab 08/04/20 12/02/20 Rx insulin detemir U-100 100 unit/mL 45 unit SUBCUT HS #15 ml 08/04/20 12/02/20 Rx (3 mL) subcutaneous pen (Levemir FlexTouch U-100 Insulin) amlodipine 5 mg tablet (Norvasc) 5 mg PO QAM #30 tab 10/29/20 12/02/20 Rx furosemide 40 mg tablet 80 mg PO QAM #60 tab 10/29/20 12/02/20 Rx losartan 50 mg tablet 50 mg PO QAM #30 tab 10/29/20 12/02/20 Rx metoprolol succinate 50 mg 75 mg PO QAM 30 Days #45 tab 10/29/20 12/02/20 Rx tablet,extended release 24 hr (Toprol XL) Allergies Allergy/AdvReac Type Severity Reaction Status Date / Time No Known Allergies Allergy Verified 10/14/20 00:54 Past Med/Surg History Medical History Alcohol use disorder Bilateral edema of lower extremity Chronic anemia Diabetes mellitus type 2 with complications TONEY (dyspnea on exertion) Edema Elevated troponin HTN (hypertension) Mood disorder Neuropathy NSTEMI (non-ST elevated myocardial infarction) Obesity CATALINO (obstructive sleep apnea) CATALINO (obstructive sleep apnea) Proteinuria Smoking Tobacco use disorder Type 2 diabetes mellitus Surgical History History of cardiac catheterization 1 ELIESER to proximal OM by Dr. 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 Physical Exam Vital Signs Vital Signs - 24 hr 12/02/20 13:12 12/02/20 16:21 12/02/20 16:22 Temperature 36.9 C Temperature Source Oral Pulse Rate 120 H Pulse Rate [Finger] 94 H Respiratory Rate 16 18 Respiratory Effort / Characteristics Respiratory Depth Normal Blood Pressure 173/91 H Blood Pressure [Right Arm] 145/81 H Blood Pressure Mean 118 Blood Pressure Mean [Right Arm] 102 Blood Pressure Position [Right Arm] Pulse Oximetry 95 87 L 95 Oxygen Delivery Method Room Air Room Air Nasal Cannula Oxygen Flow Rate 2 Sepsis Recent Fever Within 48 Hours No Sepsis New/Unexplained Change in Mental Status No Sepsis Action Taken by Nursing No Action Required 12/02/20 17:30 12/02/20 20:27 Temperature Temperature Source Pulse Rate Pulse Rate [Finger] 90 99 H Respiratory Rate 18 16 Respiratory Effort / Characteristics Non-Labored Spontaneous Respiratory Depth Normal Normal Blood Pressure Blood Pressure [Right Arm] 181/97 H 177/98 H Blood Pressure Mean Blood Pressure Mean [Right Arm] 125 124 Blood Pressure Position [Right Arm] Lying Pulse Oximetry 94 98 Oxygen Delivery Method Nasal Cannula Nasal Cannula Oxygen Flow Rate 2 2 Sepsis Recent Fever Within 48 Hours Sepsis New/Unexplained Change in Mental Status Sepsis Action Taken by Nursing Physical Exam GENERAL: Patient is disheveled, slurring his words, staggering gait, and eating a grilled cheese sandwich. HENT: Exam performed. - Head: Normocephalic and atraumatic. - Right Ear: External ear normal. No mastoid tenderness. - Left Ear: External ear normal. No mastoid tenderness. - Mouth/Throat: The oropharynx is clear and moist. No trismus in the jaw. No dental abscesses or uvula swelling. No oropharyngeal exudate or tonsillar abscesses. EYES: Conjunctivae and EOM are normal. Pupils are equal, round, and reactive to light. Right eye exhibits no discharge. Left eye exhibits no discharge. No scleral icterus. NECK: Normal range of motion. Neck supple. No JVD present. No spinous process tenderness present. No carotid bruit present. No rigidity. No tracheal deviation and normal range of motion present. No Brudzinski's sign and no Kernig's sign noted. CV: Tachycardic rate, regular rhythm, normal heart sounds and intact distal pulses. There is no peripheral edema. Palpable radial pulses bue. PULM/CHEST: Effort normal and breath sounds normal. No respiratory distress. No stridor. He has no wheezes. He has no rales. - Chest Wall: He exhibits no tenderness. ABD: The abdomen is soft. Bowel sounds are normal. He has no distension. No mass is present. There is no tenderness. There is no rebound, no guarding, no Muhammad's sign and no tenderness at McBurney's point. Rovsig negative. MUSC/SKEL: Normal range of motion. There is no peripheral edema, tenderness or deformity. LYMPH: No cervical adenopathy. NEURO: He is alert and oriented to person, place, and time. He has normal stren gth. No cranial nerve deficit or sensory deficit. Coordination and gait normal. GCS eye subscore is 4. GCS verbal subscore is 5. GCS motor subscore is 6. Cerebellar tests wnl. SKIN: Well-healing wound over the left upper extremity with no surrounding erythema or discharge. PSYCH: He has a normal mood and affect. Behavior is normal. Judgment and thought content normal. Course Course 1422: The patient was evaluated in room A8. A complete history and physical exam was performed 1715: Patient reports he feels much better after Ativan is no longer feeling shaky. Awaiting patient to become sober so he can be evaluated for detox. Patient placed in observation at this time. 2015: Patient becoming increasingly agitated reports he started feel palpitations and shakiness again. Patient given additional dose of Ativan. Patient will be admitted to the hospital for alcohol withdrawal. Dr. Elmer Mejia hospitalist will be notified. Administered Medications Nicotine (Nicotine 14 Mg/24 Hr Patch) 14 mg TD QAM LUCINDA Stop: 01/01/21 14:44 Last Admin: 12/02/20 15:46 Dose: 14 mg Documented by: [id number] Discontinued Medications Sodium Chloride (Nss 1000ml) 1,000 mls @ 999 mls/hr IV .Q1H1M LUCINDA Stop: 12/02/20 15:30 Last Infusion: 12/02/20 16:26 Dose: 0 mls/hr Documented by: [id number] Admin: 12/02/20 15:02 Dose: 999 mls/hr Documented by: [id number] Lorazepam (Ativan) 1 mg in 2 mls @ 2 mls/min IV NOW STA Stop: 12/02/20 15:25 Last Admin: 12/02/20 15:46 Dose: 2 mls/min Documented by: [id number] Magnesium Sulfate/Dextrose (Magnesium Sulfate / D5w) 1 gm in 100 mls @ 100 mls/hr IV Q1H LUCINDA Stop: 12/02/20 17:38 Last Infusion: 12/02/20 19:00 Dose: 0 mls/hr Documented by: [id number] Admin: 12/02/20 17:39 Dose: 100 mls/hr Documented by: [id number] Infusion: 12/02/20 16:47 Dose: 100 mls/hr Documented by: [id number] Admin: 12/02/20 15:47 Dose: 100 mls/hr Documented by: [id number] Lorazepam (Ativan) 0.5 mg in 1 mls @ 1 mls/min IV NOW STA Stop: 12/02/20 20:15 Last Admin: 12/02/20 20:27 Dose: 1 mls/min Documented by: [id number] Medical Decision Making Laboratory Data Result diagrams: 12/02/20 14:46 12/02/20 14:46 Lab Results 12/02/20 12/02/20 12/02/20 Range/Units 14:44 14:46 14:46 WBC 4.07 L (4.8-10.8) K/uL RBC 4.07 L (4.7-6.1) M/uL Hgb 12.6 L (14.0-18.0) g/dL Hct 36.9 L (42-52) % MCV 90.7 (80-100) fL MCH 31.0 (25-34) pg MCHC 34.1 (32-36) g/dL RDW Std Deviation 41.6 (36.4-46.3) fL RDW Coeff of Alberto 12.5 (11.5-14.5) % Plt Count 119 L (130-400) K/uL MPV 9.4 (7.4-10.4) fL Immature Gran % (Auto) 0.2 % Neut % (Auto) 41.1 % Lymph % (Auto) 49.4 % [place] % (Auto) 7.9 % Eos % (Auto) 1.2 % Baso % (Auto) 0.2 % Neut # (Auto) 1.67 (1.4-6.5) K/uL Lymph # (Auto) 2.01 (1.2-3.4) K/uL [place] # (Auto) 0.32 (0.11-0.59) K/uL Eos # (Auto) 0.05 (0-0.5) K/uL Baso # (Auto) 0.01 (0-0.2) K/uL Immature Gran # (Auto) 0.01 (0.00-0.02) K/uL Sodium 136 (136-145) mmol/L Potassium 3.9 (3.5-5.1) mmol/L Chloride 99 (98-107) mmol/L Carbon Dioxide 26 (21-32) mmol/L Anion Gap 11.0 (3-11) BUN 16 (7-18) mg/dl Creatinine 1.75 H (0.6-1.4) mg/dl Est Cr Clr Drug Dosing 59.8 ml/min Est GFR ( Amer) 49.4 ml/min Est GFR (Non-Af Amer) 42.6 ml/min BUN/Creatinine Ratio 9.3 L (10-20) Glucose 299 H (70-99) mg/dl POC Glucose 308 H* (70-99) mg/dl Calcium 8.1 L (8.5-10.1) mg/dl Magnesium 1.5 L (1.8-2.4) mg/dl Total Bilirubin 0.6 (0.2-1) mg/dl Direct Bilirubin 0.4 H (0-0.2) mg/dl AST 153 H (15-37) U/L ALT 108 H (12-78) U/L Alkaline Phosphatase 110 (45-117) U/L Total Protein 6.8 (6.4-8.2) gm/dl Albumin 2.8 L (3.4-5.0) gm/dl Lipase 144 (73-393) U/L TSH 2.160 (0.300-4.500) uIu/ml Urine Color Urine Appearance (Clear) Urine pH (4.5-7.5) Ur Specific [place] (1.000-1.030) Urine Protein (Negative) Urine Glucose (UA) (Negative) Urine Ketones (Negative) Urine Blood (Negative) Urine Nitrite (Negative) Urine Bilirubin (Negative) Urine Urobilinogen (Negative) Ur Leukocyte Esterase (Negative) Urine WBC (Auto) (0-5) /hpf Urine RBC (Auto) (0-4) /hpf U Hyaline Cast (Auto) (0-5) /lpf U Epithel Cells (Auto) (0-5) /lpf Urine Bacteria (Auto) (Negative) Ur Renal Epithelial Cell Salicylates (2.8-20) mg/dl Urine Opiates Screen (Neg) Ur Methadone, Qual (Neg) Acetaminophen (10-30) ug/ml Urine Barbiturates (Neg) Ur Phencyclidine (PCP) (Neg) U Amphetamin/Meth Scrn (Neg) MDMA (Ecstasy) Screen (Neg) U Benzodiazepines Scrn (Neg) Ur Cocaine Metabolite (Neg) U Marijuana (THC) Screen (Neg) Ethyl Alcohol mg/dL (0-3) mg/dl COVID-19 Eval Order 12/02/20 12/02/20 12/02/20 Range/Units 14:46 14:46 19:45 WBC (4.8-10.8) K/uL RBC (4.7-6.1) M/uL Hgb (14.0-18.0) g/dL Hct (42-52) % MCV (80-100) fL MCH (25-34) pg MCHC (32-36) g/dL RDW Std Deviation (36.4-46.3) fL RDW Coeff of Alberto (11.5-14.5) % Plt Count (130-400) K/uL MPV (7.4-10.4) fL Immature Gran % (Auto) % Neut % (Auto) % Lymph % (Auto) % [place] % (Auto) % Eos % (Auto) % Baso % (Auto) % Neut # (Auto) (1.4-6.5) K/uL Lymph # (Auto) (1.2-3.4) K/uL [place] # (Auto) (0.11-0.59) K/uL Eos # (Auto) (0-0.5) K/uL Baso # (Auto) (0-0.2) K/uL Immature Gran # (Auto) (0.00-0.02) K/uL Sodium (136-145) mmol/L Potassium (3.5-5.1) mmol/L Chloride (98-107) mmol/L Carbon Dioxide (21-32) mmol/L Anion Gap (3-11) BUN (7-18) mg/dl Creatinine (0.6-1.4) mg/dl Est Cr Clr Drug Dosing ml/min Est GFR ( Amer) ml/min Est GFR (Non-Af Amer) ml/min BUN/Creatinine Ratio (10-20) Glucose (70-99) mg/dl POC Glucose (70-99) mg/dl Calcium (8.5-10.1) mg/dl Magnesium (1.8-2.4) mg/dl Total Bilirubin (0.2-1) mg/dl Direct Bilirubin (0-0.2) mg/dl AST (15-37) U/L ALT (12-78) U/L Alkaline Phosphatase (45-117) U/L Total Protein (6.4-8.2) gm/dl Albumin (3.4-5.0) gm/dl Lipase (73-393) U/L TSH (0.300-4.500) uIu/ml Urine Color Yellow Urine Appearance Clear (Clear) Urine pH 5.0 (4.5-7.5) Ur Specific [place] 1.017 (1.000-1.030) Urine Protein 4+ H (Negative) Urine Glucose (UA) 2+ H (Negative) Urine Ketones Negative (Negative) Urine Blood 1+ H (Negative) Urine Nitrite Negative (Negative) Urine Bilirubin Negative (Negative) Urine Urobilinogen Positive H (Negative) Ur Leukocyte Esterase Negative (Negative) Urine WBC (Auto) 5-10 H (0-5) /hpf Urine RBC (Auto) 10-30 H (0-4) /hpf U Hyaline Cast (Auto) 1-5 (0-5) /lpf U Epithel Cells (Auto) >30 H (0-5) /lpf Urine Bacteria (Auto) Negative (Negative) Ur Renal Epithelial Cell Not Reportable Salicylates 3.8 (2.8-20) mg/dl Urine Opiates Screen (Neg) Ur Methadone, Qual (Neg) Acetaminophen < 2 L (10-30) ug/ml Urine Barbiturates (Neg) Ur Phencyclidine (PCP) (Neg) U Amphetamin/Meth Scrn (Neg) MDMA (Ecstasy) Screen (Neg) U Benzodiazepines Scrn (Neg) Ur Cocaine Metabolite (Neg) U Marijuana (THC) Screen (Neg) Ethyl Alcohol mg/dL 298.0 H (0-3) mg/dl COVID-19 Eval Order 12/02/20 12/02/20 Range/Units 19:45 Unknown WBC (4.8-10.8) K/uL RBC (4.7-6.1) M/uL Hgb (14.0-18.0) g/dL Hct (42-52) % MCV (80-100) fL MCH (25-34) pg MCHC (32-36) g/dL RDW Std Deviation (36.4-46.3) fL RDW Coeff of Alberto (11.5-14.5) % Plt Count (130-400) K/uL MPV (7.4-10.4) fL Immature Gran % (Auto) % Neut % (Auto) % Lymph % (Auto) % [place] % (Auto) % Eos % (Auto) % Baso % (Auto) % Neut # (Auto) (1.4-6.5) K/uL Lymph # (Auto) (1.2-3.4) K/uL [place] # (Auto) (0.11-0.59) K/uL Eos # (Auto) (0-0.5) K/uL Baso # (Auto) (0-0.2) K/uL Immature Gran # (Auto) (0.00-0.02) K/uL Sodium (136-145) mmol/L Potassium (3.5-5.1) mmol/L Chloride (98-107) mmol/L Carbon Dioxide (21-32) mmol/L Anion Gap (3-11) BUN (7-18) mg/dl Creatinine (0.6-1.4) mg/dl Est Cr Clr Drug Dosing ml/min Est GFR ( Amer) ml/min Est GFR (Non-Af Amer) ml/min BUN/Creatinine Ratio (10-20) Glucose (70-99) mg/dl POC Glucose (70-99) mg/dl Calcium (8.5-10.1) mg/dl Magnesium (1.8-2.4) mg/dl Total Bilirubin (0.2-1) mg/dl Direct Bilirubin (0-0.2) mg/dl AST (15-37) U/L ALT (12-78) U/L Alkaline Phosphatase (45-117) U/L Total Protein (6.4-8.2) gm/dl Albumin (3.4-5.0) gm/dl Lipase (73-393) U/L TSH (0.300-4.500) uIu/ml Urine Color Urine Appearance (Clear) Urine pH (4.5-7.5) Ur Specific [place] (1.000-1.030) Urine Protein (Negative) Urine Glucose (UA) (Negative) Urine Ketones (Negative) Urine Blood (Negative) Urine Nitrite (Negative) Urine Bilirubin (Negative) Urine Urobilinogen (Negative) Ur Leukocyte Esterase (Negative) Urine WBC (Auto) (0-5) /hpf Urine RBC (Auto) (0-4) /hpf U Hyaline Cast (Auto) (0-5) /lpf U Epithel Cells (Auto) (0-5) /lpf Urine Bacteria (Auto) (Negative) Ur Renal Epithelial Cell Salicylates (2.8-20) mg/dl Urine Opiates Screen Neg (Neg) Ur Methadone, Qual Neg (Neg) Acetaminophen (10-30) ug/ml Urine Barbiturates Neg (Neg) Ur Phencyclidine (PCP) Neg (Neg) U Amphetamin/Meth Scrn Neg (Neg) MDMA (Ecstasy) Screen Neg (Neg) U Benzodiazepines Scrn Neg (Neg) Ur Cocaine Metabolite Neg (Neg) U Marijuana (THC) Screen Neg (Neg) Ethyl Alcohol mg/dL (0-3) mg/dl COVID-19 Eval Order Covid19 at [facility] Imaging Data Radiologist's Impression: Head CT 12/02/20 14:22 CT head/brain wo con CLINICAL HISTORY: 55 years-old Male with fall. Acute head trauma status post fall TECHNIQUE: Multiple axial CT images of the head were obtained without contrast. A dose lowering technique was utilized adhering to the principles of ALARA. CT DOSE: 1035.81 mGycm COMPARISON: Head CT 02/02/2017 FINDINGS: No acute intracranial hemorrhage, midline shift, intra-axial mass, hydr ocephalus, territorial ischemia or abnormal extra-axial collection. Calcifications of the falx cerebri. Possible small colloid cyst versus choroid plexus of the third ventricle measures 3 mm on image 17 series 2. Cerebral vascular calcifications. The calvarium is intact. Mastoid air cells are clear. Mild mucosal thickening of the ethmoid and maxillary sinuses. Unremarkable soft tissues and orbits. IMPRESSION: No acute intracranial abnormality or calvarial fracture. ACT 112: Negative or not required by law. The above report was generated using voice recognition software. It may contain grammatical, syntax or spelling errors. Electronically signed by: Suhas Ramos M.D. 12/02/2020 4:38 PM ECG Data Indication: + toxicologic Rate (beats per minute): 90 Rhythm: + normal sinus ECG Intervals/blocks: + Normal QRS and + Normal QT-c ECG ST segments: + Normal ST segments ECG Findings: + PVCs MDM Narrative Observation note Indication: Alcohol intoxication Patient, with history of alcohol abuse, [place], AV stage III, cirrhosis, was first seen at 1422 hrs and the observation time began at 1715 hrs and was necessary in order to determine any and avoid unnecessary admission . Upon re-evaluation, 3 hours of observation revealed that the patient should be admitted for alcohol withdrawal. Disposition date and time December 02, 20202014. Impression & Plan Alcohol withdrawal syndrome Discharge Plan Visit Data Chief Complaint: Detox Request Stated Complaint: ARM ISSUE, HAD CANCER CUT OUT Discharge Problem: Alcohol withdrawal syndrome Patient Disposition: Admitted As Inpatient Forms Stand Alone Forms: [facility], Suicide Prevention Resources Prescriptions Prescriptions: No Action insulin aspart U-100 [Novolog Flexpen U-100 Insulin] 100 unit/mL Insulin Pen See Rx Instructions .ROUTE .COMPLEX RF: 0 folic acid 1 mg tablet 1 mg PO QAM RF: 0 buprenorphine-naloxone 8-2 mg tablet, sublingual 1 tab SUBLINGUAL BID RF: 0 venlafaxine [Effexor XR] 150 mg capsule,extended release 24hr 150 mg PO QAM RF: 0 aspirin [Ecotrin Low Strength] 81 mg tablet,delayed release (DR/EC) 81 mg PO QAM RF: 0 nicotine [Nicoderm CQ] 21 mg/24 hr Patch 24 Hour 21 mg transdermal QAM Qty: 14 RF: 1 gabapentin 300 mg Capsule 300 mg PO BID Qty: 60 RF: 0 magnesium oxide 400 mg (241.3 mg magnesium) Tablet 400 mg PO QAM Qty: 30 RF: 0 thiamine HCl (vitamin B1) [Vitamin B-1] 100 mg Tablet 100 mg PO QAM Qty: 30 RF: 1 multivitamin Tablet 1 tab PO DAILY RF: 0 atorvastatin 80 mg Tablet 80 mg PO DAILY RF: 0 urea 20 % Cream 1 applic TOPICAL BID RF: 0 naloxone 0.4 mg/mL Solution 0 mg intranasal DIRECTED PRN (Reason: OVERSEDATION) RF: 0 cyanocobalamin (vitamin B-12) [Vitamin B-12] 1,000 mcg Tablet 1,000 mcg PO DAILY RF: 0 nitroglycerin [Nitrostat] 0.4 mg Tablet, Sublingual 0.4 mg sublingual DIRECTED PRN (Reason: Chest Pain) RF: 0 clotrimazole 1 % Cream 1 applic TOPICAL BID RF: 0 Ozempic 1 mg/dose (2 mg/1.5 mL) Pen Injector 0.5 mg SUBCUT WK RF: 0 albuterol sulfate 2.5 mg /3 mL (0.083 %) Solution For Nebulization 2.5 mg INHALATION QID PRN (Reason: Shortness Of Breath Or Wheezing) RF: 0 disulfiram 500 mg tablet 500 mg PO DAILY Qty: 14 RF: 0 Levemir FlexTouch U-100 Insuln 100 unit/mL (3 mL) insulin pen 45 unit subcut HS Qty: 15 RF: 0 losartan 50 mg Tablet 50 mg PO QAM Qty: 30 RF: 0 furosemide 40 mg Tablet 80 mg PO QAM Qty: 60 RF: 0 metoprolol succinate [Toprol XL] 50 mg tablet extended release 24 hr 75 mg PO QAM 30 Days Qty: 45 RF: 0 amlodipine [Norvasc] 5 mg Tablet 5 mg PO QAM Qty: 30 RF: 0 Referrals Referrals: Charity Kasper MD [Primary Care Provider] -
[2020-12-02 15:01] LABS: Basophils # (auto) 0.01 K/uL (0-0.2); Basophils % (auto) 0.2 %; Eosinophils # (auto) 0.05 K/uL (0-0.5); Eosinophils % (auto) 1.2 %; Hematocrit (blood only) 36.9 % (42-52); Hemoglobin 12.6 g/dL (14.0-18.0); Immature Granulocytes # (auto) 0.01 K/uL (0.00-0.02); Immature Granulocytes % (auto) 0.2 %; Lymphocytes # (auto) 2.01 K/uL (1.2-3.4); Lymphocytes % (auto) 49.4 %; Mean Corpuscular Hgb Conc 34.1 g/dL (32-36); Mean Corpuscular Volume 90.7 fL (80-100); Mean Platelet Volume 9.4 fL (7.4-10.4); Monocytes # (auto) 0.32 K/uL (0.11-0.59); Monocytes % (auto) 7.9 %; Neutrophils # (auto) 1.67 K/uL (1.4-6.5); Neutrophils % (auto) 41.1 %; Platelet Count 119 K/uL (130-400); RDW Coefficient of Variation 12.5 % (11.5-14.5); RDW Standard Deviation 41.6 fL (36.4-46.3); Red Blood Count 4.07 M/uL (4.7-6.1); White Blood Count 4.07 K/uL (4.8-10.8)
[2020-12-02 15:19] LABS: Albumin Level 2.8 gm/dl (3.4-5.0); BUN Creatinine Ratio 9.3 (10-20); Bilirubin Direct 0.4 mg/dl (0-0.2); Calcium 8.1 mg/dl (8.5-10.1); Creatinine Clr Calc Pharmacy 59.8 ml/min; Est GFR (African American) 49.4 ml/min; Est GFR (Non-African American) 42.6 ml/min; Magnesium 1.5 mg/dl (1.8-2.4); Potassium 3.9 mmol/L (3.5-5.1)
[2020-12-02] MEDS ORDERED: LORazepam 1 MG/2 ML VIAL IV STA (15:24)
[2020-12-02 15:30] LABS: Bilirubin,Total 0.6 mg/dl (0.2-1); Thyroid Stimulating Hormone 2.16 uIu/ml (0.300-4.500); Total Protein 6.8 gm/dl (6.4-8.2)
[2020-12-02 15:36] LABS: Acetaminophen < 2 ug/ml (10-30); Salicylate 3.8 mg/dl (2.8-20)
--- NOTE | 2020-12-02 15:42 | Electrocardiogram Report ---
Test Reason : Blood Pressure : / mmHG Vent. Rate : 100 BPM Atrial Rate : 100 BPM P-R Int : 192 ms QRS Dur : 102 ms QT Int : 372 ms P-R-T Axes : 051 -10 062 degrees QTc Int : 479 ms Sinus rhythm with occasional Premature ventricular complexes Possible Left atrial enlargement Incomplete right bundle branch block Septal infarct , age undetermined Abnormal ECG When compared with ECG of 22-OCT-2020 02:05, Premature ventricular complexes are now Present Vent. rate has increased BY 33 BPM Incomplete right bundle branch block is now Present Septal infarct is now Present Confirmed by Maurice Caldwell ([id number]) on 12/02/2020 3:42:04 PM Referred By: REFERRED SELF Confirmed By:Maurice Caldwell
[2020-12-02] MEDS: NICOTINE 14 MG/24 HR PATCH TD SCH (15:46)
[2020-12-02] MEDS: MAGNESIUM SULFATE / D5W 1 GM/100 ML BAG IV SCH ×2 (15:47→17:39)
--- NOTE | 2020-12-02 16:39 | CT Scan Report ---
CT head/brain wo con CLINICAL HISTORY: 55 years-old Male with fall. Acute head trauma status post fall TECHNIQUE: Multiple axial CT images of the head were obtained without contrast. A dose lowering tech nique was utilized adhering to the principles of ALARA. CT DOSE: 1035.81 mGycm COMPARISON: Head CT 02/02/2017 FINDINGS: No acute intracranial hemorrhage, midline shift, intra-axial mass, hydrocephalus, territorial ischemi a or abnormal extra-axial collection. Calcifications of the falx cerebri. Possible small colloid cyst versus choroid plexus of the third ventricle measures 3 mm on image 17 series 2. Cerebral vascular c alcifications. The calvarium is intact. Mastoid air cells are clear. Mild mucosal thickening of the ethmoid and max illary sinuses. Unremarkable soft tissues and orbits. IMPRESSION: No acute intracranial abnormality or calvarial fracture. ACT 112: Negative or not required by law. The above report was generated using voice recognition software. It may contain grammatical, syntax o r spelling errors. Electronically signed by: Suhas Ramos M.D. 12/02/2020 4:38 PM
[2020-12-02 20:01] LABS: Bacteria Urine Automated Negative (Negative); Bilirubin Urine Negative (Negative); Blood Urine 1+ (Negative); Color Urine Yellow; Epithelial Cell Urine Auto >30 /lpf (0-5); Glucose Urine UA 2+ (Negative); Ketones Urine Negative (Negative); Leukocyte Esterase Urine Negative (Negative); Nitrite Urine Negative (Negative); Protein Urine 4+ (Negative); Specific Gravity Urine 1.017 (1.000-1.030); Urobilinogen Urine Positive (Negative)
[2020-12-02 20:07] LABS: Appearance Urine Clear (Clear)
[2020-12-02] MEDS ORDERED: LORazepam 0.5 MG/1 ML VIAL IV STA (20:14)
[2020-12-02 20:42] LABS: Amphetamines+Metham, Urine Neg (Neg); Barbiturates, Urine Neg (Neg); Benzodiazepine, Urine Neg (Neg); Cocaine, Urine Neg (Neg); MDMA (Ecstacy), Urine Neg (Neg); Methadone, Urine Neg (Neg); Opiate, Urine Neg (Neg); Phencyclidine, Urine Neg (Neg)
[2020-12-02] MEDS ORDERED: chlordiazePOXIDE ALCOHOL WITHDRAWL 50MG PO STA (21:42)
[2020-12-02] MEDS ORDERED: MAGNESIUM SULFATE / D5W 1 GM/100 ML BAG IV STA (21:43)
[2020-12-02] MEDS: CHLORDIAZEPOXIDE 50MG STARTING DOSE PO SCH (22:07)
[2020-12-02] MEDS ORDERED: POLYETHYLENE (MIRALAX) 17 GM PACK PO PRN (22:34)
[2020-12-02] MEDS ORDERED: chlordiazePOXIDE HCl 25 MG CAP PO SCH (22:34)
[2020-12-02] MEDS ORDERED: LORazepam 3 MG/6 ML VIAL IV PRN (22:34)
[2020-12-02] MEDS ORDERED: NALOXONE HCL 0.4 MG/1 ML VIAL/CARP IV PRN (22:34)
[2020-12-02] MEDS ORDERED: ALBUTEROL 0.083% NEBU SOLN 3 ML VIAL INH PRN (22:34)
[2020-12-02] MEDS ORDERED: ONDANSETRON INJ 2 MG/ML 2 ML VIAL IV PRN (22:34)
[2020-12-02] MEDS ORDERED: ATIVAN IV ALCOHOL WITHDRAWL IV PRN (22:34)
[2020-12-02] MEDS ORDERED: NITROGLYCERIN SL 0.4 MG/TAB TAB SL PRN (22:34)
--- NOTE | 2020-12-02 22:52 | History and Physical Report ---
DATE OF ADMISSION: 12/02/2020 CHIEF COMPLAINT: Alcoholism. HISTORY OF PRESENT ILLNESS: This is a 55-year-old male with past medical history significant for type 2 diabetes, hypertension, hyperlipidemia, chronic alcohol abuse, CAD status post stent, chronic back pain, obstructive sleep apnea, noncompliant with CPAP, ongoing tobacco abuse, neuropathy, chronic kidney disease stage III, emphysema, fatty liver, history of anemia, history of depression, generalized anxiety disorder, presents from home because of alcoholism. The patient was recently in the hospital in the end of September and discharged on 10/29. At that time, he was here in ER with alcoholism, ONDINA, hyperkalemia and the patient says he was in alcohol rehab for 2 weeks and discharged. He was at home since last 2 weeks. Since coming back home, he again started drinking about half a gallon of vodka every day. He lives in the alone. He sometimes falling down because he is drunk. Some blurred vision from being drunk and his [facility] advised him to come to the hospital today. The patient is somewhat shaky. He also had squamous cell cancer of his left arm status post Mohs procedure. The patient is concerned about some infection at the Mohs procedure site, but there is no active erythema or tenderness or warmth on palpation. The patient denies any fevers. Has chronic ongoing smoker's cough and shortness of breath on exertion. He has some chest pain sometimes, he has nitroglycerin but he never used nitroglycerin so far. Currently, no chest pain, no fevers. Has chronic runny nose. Denies any headache. No blurred visions, no nausea. He is not eating much, so not much bowel movements, but denies any blood in stools and normal bladder movements. ALLERGIES: No known drug allergies. PAST MEDICAL HISTORY: As mentioned above. PAST SURGICAL HISTORY: Colonoscopy. MEDICATIONS: The patient is on amlodipine 5 mg p.o. daily, albuterol inhalation q.i.d., aspirin 81 mg p.o. daily, atorvastatin 80 mg p.o. daily, buprenorphine/naloxone 1 tablet sublingual b.i.d., clotrimazole topical b.i.d., vitamin B12 1000 mcg p.o. daily, disulfiram 500 mg p.o. daily, folic acid 1 mg p.o. daily, Lasix 80 mg p.o. a.m., gabapentin 300 mg p.o. b.i.d., insulin NovoLog FlexPen sliding scale, Levemir 45 units at bedtime, losartan 50 mg p.o. daily, magnesium oxide 400 mg p.o. daily, metoprolol succinate 75 mg p.o. a.m., multivitamins 1 tablet p.o. daily, naloxone intranasal p.r.n., nicotine patch, nitroglycerin 0.4 mg sublingual p.r.n., Ozempic 0.5 mg subcutaneous weekly, thiamine 100 mg p.o. daily, venlafaxine 150 mg p.o. a.m. FAMILY HISTORY: Significant for mother has hypertension and sleep apnea, father has diabetes, sister has diabetes. SOCIAL HISTORY: Smokes 2 packs a day for 40 years. Drinks alcohol, about 1/2 gallon of vodka daily. No drug use. REVIEW OF SYSTEMS: As per HPI. Rest of the review of systems is negative. PHYSICAL EXAMINATION: GENERAL: The patient is obese, not in acute distress. VITAL SIGNS: Temperature 36.9, pulse 99, respirations 16, blood pressure 177/98, oxygen 98% on 2 liters. HEENT: Pupils equal, round and reactive to light. Oral mucosa moist. NECK: No JVD or neck masses. CARDIOVASCULAR: S1 and S2 heard. Regular rate and rhythm. No murmur, no gallop. RESPIRATORY SYSTEM: Normal AP diameter. No accessory muscle use. No wheezing, no crackles. ABDOMEN: Soft, bowel sounds present, nontender, no distention. CENTRAL NERVOUS SYSTEM: Cranial nerves II-XII grossly intact, nonfocal. EXTREMITIES: Mild pedal edema present, no erythema seen. LABORATORY DATA: WBC 4.07, hemoglobin 12.6, hematocrit 36.9, platelets 119. Sodium 136, potassium 3.8, chloride 99, bicarbonate 26, BUN 60, creatinine 1.75, serum glucose 299, calcium 8.1, magnesium 1.5, total bilirubin 0.6, direct bilirubin 0.4, AST 153, ALT 108, alkaline phosphatase 110. Lipase 144. TSH 2.1. Urinalysis; +2 glucose, +1 blood, urine bacteria negative. Drug screen; alcohol 298. SARS-CoV-2 PCR negative. IMAGING: CT of the head: No acute intracranial findings. EKG: Sinus rhythm with occasional PVCs at the rate of 100, possible left atrial enlargement. ASSESSMENT AND PLAN: This is a 55-year-old male, presents with ongoing alcoholism. 1. Alcoholism. The patient says he was recently in rehabilitation, came back home 2 weeks ago, again started drinking. We will place him on alcohol withdrawal protocol with Librium and Ativan p.r.n. and banana bag and IV thiamine and folic acid from a.m. and closely monitor in telemetry floor. 2. Chronic kidney disease stage III, presents with creatinine of 1.7, which is same as last time discharge. Has proteinuria. Follow with nephrology. On losartan. We will follow the laboratories. 3. Tobacco abuse, on nicotine patch. 4. Diabetes, continue insulin sliding scale and Levemir. We will follow the blood sugars. 5. Peripheral neuropathy, on gabapentin. 6. History of hypertension, on amlodipine, losartan, metoprolol and also diuretics. We will monitor the blood pressure. 7. History of coronary artery disease, status post stent. Continue aspirin, statin, and metoprolol. 8. History of depression. Continue Effexor. 9. Chronic pain, on Suboxone. 10. Obstructive sleep apnea, noncompliant with CPAP. 11. Thrombocytopenia, platelets of 119, possibly from alcoholism. We will follow the laboratories. 12. Deep venous thrombosis prophylaxis. Placed him on sequential compression devices for now. 13. Code status: Level 1 full code. DISPOSITION: Admit to tele floor, closely monitor for withdrawal. PT/OT prior to discharge. Social service to help with discharge planning. Job ID: [id number] [facility]
[2020-12-02] MEDS ORDERED: GLUCOSE 10 TABS/TUBE PO PRN (23:30)
[2020-12-02] MEDS ORDERED: CARBOHYDRATES FOR HYPOGLYCEMIA PO PRN (23:30)
[2020-12-02] MEDS ORDERED: MULTI-VITAMIN INFUSION 10 ML, THIAMINE HCL 100 MG, FOLIC ACID 1 MG in SODIUM CHLORIDE 0... IV ONE (23:30)
[2020-12-02] MEDS ORDERED: GLUCAGON FOR INJ 1 MG VIAL IM PRN (23:30)
[2020-12-02] MEDS ORDERED: GLUCOSE 40% GEL 15 GM TUBE PO PRN (23:30)
[2020-12-02] MEDS ORDERED: DEXTROSE 50% 50 ML SYRINGE IV PRN (23:30)
[2020-12-02] MEDS: LORazepam 2 MG/4 ML VIAL IV PRN (23:55)
[2020-12-03] MEDS: FOLIC ACID 1 MG in SYRINGE 9.8 ML IV SCH ×2 (00:09→08:05)
[2020-12-03] MEDS: THIAMINE HCL 100 MG in SYRINGE 9 ML IV SCH ×2 (00:12→08:03)
[2020-12-03] MEDS: INSULIN ASPART 100 UNITS/ML 3 ML PEN SC SCH ×6 (00:13→23:47)
[2020-12-03] MEDS: INSULIN DETEMIR FLEXPEN/FLEX TOUCH 100 UNITS/ML 3ML SQ SCH ×2 (00:15→08:06)
[2020-12-03] MEDS: LORazepam 2 MG/4 ML VIAL IV PRN ×3 (02:27→21:46)
[2020-12-03 06:12] LABS: Eosinophils # (auto) 0.05 K/uL (0-0.5); Eosinophils % (auto) 1.2 %; Hematocrit (blood only) 37.2 % (42-52); Hemoglobin 12.5 g/dL (14.0-18.0); Lymphocytes # (auto) 1.96 K/uL (1.2-3.4); Mean Corpuscular Hemoglobin 31.3 pg (25-34); Mean Corpuscular Hgb Conc 33.6 g/dL (32-36); Mean Corpuscular Volume 93.2 fL (80-100); Mean Platelet Volume 9.6 fL (7.4-10.4); Monocytes # (auto) 0.42 K/uL (0.11-0.59); Monocytes % (auto) 10.1 %; Neutrophils # (auto) 1.74 K/uL (1.4-6.5); Neutrophils % (auto) 41.7 %; Platelet Count 112 K/uL (130-400); RDW Coefficient of Variation 12.3 % (11.5-14.5); RDW Standard Deviation 41.8 fL (36.4-46.3); Red Blood Count 3.99 M/uL (4.7-6.1); White Blood Count 4.17 K/uL (4.8-10.8)
[2020-12-03] MEDS: CHLORDIAZEPOXIDE 50MG STARTING DOSE PO SCH ×3 (06:36→17:10)
[2020-12-03 06:46] LABS: RBC Morphology Unremarkable
[2020-12-03 07:06] LABS: Albumin Level 2.6 gm/dl (3.4-5.0); BUN Creatinine Ratio 12.3 (10-20); Bilirubin Direct 0.4 mg/dl (0-0.2); Bilirubin,Total 1.1 mg/dl (0.2-1); Calcium 8.2 mg/dl (8.5-10.1); Creatinine Clr Calc Pharmacy 93.1 ml/min; Est GFR (African American) 87.5 ml/min; Est GFR (Non-African American) 75.5 ml/min; Magnesium 1.9 mg/dl (1.8-2.4); Potassium 3.9 mmol/L (3.5-5.1); Total Protein 6.6 gm/dl (6.4-8.2)
[2020-12-03 07:59] LABS: Estimated Average Glucose 189 mg/dl; Hemoglobin A1C 8.2 % (4.5-5.6)
[2020-12-03] MEDS: MULTIVITAMIN TAB PO SCH (08:03)
[2020-12-03] MEDS: FUROSEMIDE 80 MG TAB PO SCH (08:03)
[2020-12-03] MEDS: ATORVASTATIN 40 MG TAB PO SCH (08:03)
[2020-12-03] MEDS: ASPIRIN 81 MG ECTAB PO SCH (08:03)
[2020-12-03] MEDS: amLODIPine BESYLATE 5 MG TAB PO SCH (08:03)
[2020-12-03] MEDS: MAGNESIUM OXIDE 400 MG TAB PO SCH (08:03)
[2020-12-03] MEDS: METOPROLOL SUCC 25MG EXT REL TAB PO SCH (08:04)
[2020-12-03] MEDS: CLOTRIMAZOLE 1% CR 15 GM TUBE TOP SCH ×2 (08:04→20:52)
[2020-12-03] MEDS: VENLAFAXINE HCL XR 150 MG CAPXR PO SCH (08:04)
[2020-12-03] MEDS: CYANOCOBALAMIN 500 MCG TABLET (VITAMIN B-12) PO SCH (08:04)
[2020-12-03] MEDS: FOLIC ACID 1 MG TAB PO SCH (08:05)
[2020-12-03] MEDS: LOSARTAN POTASSIUM 50 MG TAB PO SCH (08:05)
[2020-12-03] MEDS: GABAPENTIN 300 MG CAP PO SCH ×2 (08:09→20:52)
[2020-12-03] MEDS: BUPRENORPHINE/NALOXONE 8/2 MG TAB SL SCH ×2 (08:09→20:51)
--- NOTE | 2020-12-03 08:30 | Hospitalist Progress Note ---
Date of Service December 03, 2020 Assessment & Plan (1) Alcohol withdrawal syndrome: (2) Pancytopenia: (3) CKD (chronic kidney disease), stage III: Plan: This is a 55-year-old male, presents with ongoing alcoholism. 1. Alcoholism. The patient says he was recently in rehabilitation, came back home 2 weeks ago, again started drinking. Placed him on alcohol withdrawal protocol with Librium and Ativan p.r.n. and banana bag and IV thiamine and folic acid from a.m. and closely monitor in telemetry floor. 2. Chronic kidney disease stage III, presents with creatinine of 1.7, which is same as last time discharge. Has proteinuria. Follows with nephrology. On losartan. We will follow the laboratories. 3. Tobacco abuse, on nicotine patch. 4. Diabetes, current hgb A1c 8.2% - continue insulin sliding scale and Levemir. We will follow the blood sugars. 5. Peripheral neuropathy, on gabapentin. 6. Hypertension, on amlodipine, losartan, metoprolol and also diuretics. We will monitor the blood pressure. 7. CAD, status post stent. Continue aspirin, statin, and metoprolol. 8. History of depression. Continue Effexor. 9. Chronic pain, on Suboxone. 10. Obstructive sleep apnea, noncompliant with CPAP. 11. Pancytopnia/Thrombocytopenia, platelets of 119, likely from alcoholism. We will follow the laboratories. DVT prophylaxis. SCDs for now. Code status: Full code. DISPOSITION: Admit to tele floor, closely monitor for withdrawal. PT/OT prior to discharge. Social service to help with discharge planning. Admission and Anticipated Discharge Date Admission Date: December 02, 2020 Subjective Patient seen in follow-up of alcohol withdrawal currently laying in bed in no acute distress, has no complaints besides tremors denies chest pain shortness of breath abdominal pain, nausea vomiting Patient is somnolent but easily arousable Review of Systems Review of Systems: All systems reviewed & are unremarkable except as noted in Subjective Physical Exam Physical Exam: GENERAL: obese M, in NAD HEENT: NC/AT, EOMI, PERRL. Oral mucosa moist. NECK: No JVD or neck masses. CARDIOVASCULAR: S1 and S2 heard. Regular rate and rhythm. No murmur, no gallop. RESPIRATORY: Normal AP diameter. No accessory muscle use. No wheezing, no crackles. ABDOMEN: Soft, bowel sounds present, nontender, no distention. NEURO: Somnolent, however easily arousable, able to answer simple questions appropriately, speech slow but fluent, no facial asymmetry, moves extremities EXTREMITIES: Mild pedal edema present, no erythema seen. Results & Data Results & Data ([facility]) Vital Signs (Past 12 Hours) Vital Signs Temp Pulse Pulse Resp BP Pulse Ox Pulse Ox 12/03/20 07:45 114 H 12/03/20 07:13 37.0 C 90 20 203/93 H 96 12/03/20 05:39 102 H 12/03/20 04:04 37.1 C 102 H 20 175/98 H 93 12/02/20 23:47 36.7 C 82 18 176/98 H 92 12/02/20 22:34 94 12/02/20 22:30 36.7 C 104 H 20 175/114 H 94 Laboratory Results 12/03/20 12/03/20 12/03/20 Range/Units 07:29 05:25 05:25 WBC 4.17 L (4.8-10.8) K/uL RBC 3.99 L (4.7-6.1) M/uL Hgb 12.5 L (14.0-18.0) g/dL Hct 37.2 L (42-52) % MCV 93.2 (80-100) fL MCH 31.3 (25-34) pg MCHC 33.6 (32-36) g/dL RDW Std Deviation 41.8 (36.4-46.3) fL RDW Coeff of Alberto 12.3 (11.5-14.5) % Plt Count 112 L (130-400) K/uL MPV 9.6 (7.4-10.4) fL Immature Gran % (Auto) 0.0 % Neut % (Auto) 41.7 % Lymph % (Auto) 47.0 % [place] % (Auto) 10.1 % Eos % (Auto) 1.2 % Baso % (Auto) 0.0 % Neut # (Auto) 1.74 (1.4-6.5) K/uL Lymph # (Auto) 1.96 (1.2-3.4) K/uL [place] # (Auto) 0.42 (0.11-0.59) K/uL Eos # (Auto) 0.05 (0-0.5) K/uL Baso # (Auto) 0.00 (0-0.2) K/uL Immature Gran # (Auto) 0.00 (0.00-0.02) K/uL RBC Morphology Unremarkable Sodium (136-145) mmol/L Potassium (3.5-5.1) mmol/L Chloride (98-107) mmol/L Carbon Dioxide (21-32) mmol/L Anion Gap (3-11) BUN (7-18) mg/dl Creatinine (0.6-1.4) mg/dl Est Cr Clr Drug Dosing ml/min Est GFR ( Amer) ml/min Est GFR (Non-Af Amer) ml/min BUN/Creatinine Ratio (10-20) Glucose (70-99) mg/dl POC Glucose 81 (70-99) mg/dl Estimat Average Glucose 189 mg/dl Hemoglobin A1c 8.2 H (4.5-5.6) % Calcium (8.5-10.1) mg/dl Magnesium (1.8-2.4) mg/dl Total Bilirubin (0.2-1) mg/dl Direct Bilirubin (0-0.2) mg/dl AST (15-37) U/L ALT (12-78) U/L Alkaline Phosphatase (45-117) U/L Total Protein (6.4-8.2) gm/dl Albumin (3.4-5.0) gm/dl Lipase (73-393) U/L Vitamin B12 Folate TSH (0.300-4.500) uIu/ml Urine Color Urine Appearance (Clear) Urine pH (4.5-7.5) Ur Specific [place] (1.000-1.030) Urine Protein (Negative) Urine Glucose (UA) (Negative) Urine Ketones (Negative) Urine Blood (Negative) Urine Nitrite (Negative) Urine Bilirubin (Negative) Urine Urobilinogen (Negative) Ur Leukocyte Esterase (Negative) Urine WBC (Auto) (0-5) /hpf Urine RBC (Auto) (0-4) /hpf U Hyaline Cast (Auto) (0-5) /lpf U Epithel Cells (Auto) (0-5) /lpf Urine Bacteria (Auto) (Negative) Ur Renal Epithelial Cell Salicylates (2.8-20) mg/dl Urine Opiates Screen (Neg) Ur Methadone, Qual (Neg) Acetaminophen (10-30) ug/ml Urine Barbiturates (Neg) Ur Phencyclidine (PCP) (Neg) U Amphetamin/Meth Scrn (Neg) MDMA (Ecstasy) Screen (Neg) U Benzodiazepines Scrn (Neg) Ur Cocaine Metabolite (Neg) U Marijuana (THC) Screen (Neg) Ethyl Alcohol mg/dL (0-3) mg/dl COVID-19 Eval Order SARS-CoV-2 (PCR) (Negative) 12/03/20 12/03/20 12/03/20 Range/Units 05:25 05:25 00:10 WBC (4.8-10.8) K/uL RBC (4.7-6.1) M/uL Hgb (14.0-18.0) g/dL Hct (42-52) % MCV (80-100) fL MCH (25-34) pg MCHC (32-36) g/dL RDW Std Deviation (36.4-46.3) fL RDW Coeff of Alberto (11.5-14.5) % Plt Count (130-400) K/uL MPV (7.4-10.4) fL Immature Gran % (Auto) % Neut % (Auto) % Lymph % (Auto) % [place] % (Auto) % Eos % (Auto) % Baso % (Auto) % Neut # (Auto) (1.4-6.5) K/uL Lymph # (Auto) (1.2-3.4) K/uL [place] # (Auto) (0.11-0.59) K/uL Eos # (Auto) (0-0.5) K/uL Baso # (Auto) (0-0.2) K/uL Immature Gran # (Auto) (0.00-0.02) K/uL RBC Morphology Sodium 141 (136-145) mmol/L Potassium 3.9 (3.5-5.1) mmol/L Chloride 107 (98-107) mmol/L Carbon Dioxide 32 (21-32) mmol/L Anion Gap 2.0 L (3-11) BUN 13 (7-18) mg/dl Creatinine 1.09 (0.6-1.4) mg/dl Est Cr Clr Drug Dosing 93.1 ml/min Est GFR ( Amer) 87.5 ml/min Est GFR (Non-Af Amer) 75.5 ml/min BUN/Creatinine Ratio 12.3 (10-20) Glucose 53 L* (70-99) mg/dl POC Glucose 375 H* (70-99) mg/dl Estimat Average Glucose mg/dl Hemoglobin A1c (4.5-5.6) % Calcium 8.2 L (8.5-10.1) mg/dl Magnesium 1.9 (1.8-2.4) mg/dl Total Bilirubin 1.1 H D (0.2-1) mg/dl Direct Bilirubin 0.4 H (0-0.2) mg/dl AST 134 H (15-37) U/L ALT 98 H (12-78) U/L Alkaline Phosphatase 120 H (45-117) U/L Total Protein 6.6 (6.4-8.2) gm/dl Albumin 2.6 L (3.4-5.0) gm/dl Lipase (73-393) U/L Vitamin B12 Pending Folate Pending TSH (0.300-4.500) uIu/ml Urine Color Urine Appearance (Clear) Urine pH (4.5-7.5) Ur Specific [place] (1.000-1.030) Urine Protein (Negative) Urine Glucose (UA) (Negative) Urine Ketones (Negative) Urine Blood (Negative) Urine Nitrite (Negative) Urine Bilirubin (Negative) Urine Urobilinogen (Negative) Ur Leukocyte Esterase (Negative) Urine WBC (Auto) (0-5) /hpf Urine RBC (Auto) (0-4) /hpf U Hyaline Cast (Auto) (0-5) /lpf U Epithel Cells (Auto) (0-5) /lpf Urine Bacteria (Auto) (Negative) Ur Renal Epithelial Cell Salicylates (2.8-20) mg/dl Urine Opiates Screen (Neg) Ur Methadone, Qual (Neg) Acetaminophen (10-30) ug/ml Urine Barbiturates (Neg) Ur Phencyclidine (PCP) (Neg) U Amphetamin/Meth Scrn (Neg) MDMA (Ecstasy) Screen (Neg) U Benzodiazepines Scrn (Neg) Ur Cocaine Metabolite (Neg) U Marijuana (THC) Screen (Neg) Ethyl Alcohol mg/dL (0-3) mg/dl COVID-19 Eval Order SARS-CoV-2 (PCR) (Negative) 12/02/20 12/02/20 12/02/20 Range/Units Unknown Unknown 19:45 WBC (4.8-10.8) K/uL RBC (4.7-6.1) M/uL Hgb (14.0-18.0) g/dL Hct (42-52) % MCV (80-100) fL MCH (25-34) pg MCHC (32-36) g/dL RDW Std Deviation (36.4-46.3) fL RDW Coeff of Alberto (11.5-14.5) % Plt Count (130-400) K/uL MPV (7.4-10.4) fL Immature Gran % (Auto) % Neut % (Auto) % Lymph % (Auto) % [place] % (Auto) % Eos % (Auto) % Baso % (Auto) % Neut # (Auto) (1.4-6.5) K/uL Lymph # (Auto) (1.2-3.4) K/uL [place] # (Auto) (0.11-0.59) K/uL Eos # (Auto) (0-0.5) K/uL Baso # (Auto) (0-0.2) K/uL Immature Gran # (Auto) (0.00-0.02) K/uL RBC Morphology Sodium (136-145) mmol/L Potassium (3.5-5.1) mmol/L Chloride (98-107) mmol/L Carbon Dioxide (21-32) mmol/L Anion Gap (3-11) BUN (7-18) mg/dl Creatinine (0.6-1.4) mg/dl Est Cr Clr Drug Dosing ml/min Est GFR ( Amer) ml/min Est GFR (Non-Af Amer) ml/min BUN/Creatinine Ratio (10-20) Glucose (70-99) mg/dl POC Glucose (70-99) mg/dl Estimat Average Glucose mg/dl Hemoglobin A1c (4.5-5.6) % Calcium (8.5-10.1) mg/dl Magnesium (1.8-2.4) mg/dl Total Bilirubin (0.2-1) mg/dl Direct Bilirubin (0-0.2) mg/dl AST (15-37) U/L ALT (12-78) U/L Alkaline Phosphatase (45-117) U/L Total Protein (6.4-8.2) gm/dl Albumin (3.4-5.0) gm/dl Lipase (73-393) U/L Vitamin B12 Folate TSH (0.300-4.500) uIu/ml Urine Color Urine Appearance (Clear) Urine pH (4.5-7.5) Ur Specific [place] (1.000-1.030) Urine Protein (Negative) Urine Glucose (UA) (Negative) Urine Ketones (Negative) Urine Blood (Negative) Urine Nitrite (Negative) Urine Bilirubin (Negative) Urine Urobilinogen (Negative) Ur Leukocyte Esterase (Negative) Urine WBC (Auto) (0-5) /hpf Urine RBC (Auto) (0-4) /hpf U Hyaline Cast (Auto) (0-5) /lpf U Epithel Cells (Auto) (0-5) /lpf Urine Bacteria (Auto) (Negative) Ur Renal Epithelial Cell Salicylates (2.8-20) mg/dl Urine Opiates Screen Neg (Neg) Ur Methadone, Qual Neg (Neg) Acetaminophen (10-30) ug/ml Urine Barbiturates Neg (Neg) Ur Phencyclidine (PCP) Neg (Neg) U Amphetamin/Meth Scrn Neg (Neg) MDMA (Ecstasy) Screen Neg (Neg) U Benzodiazepines Scrn Neg (Neg) Ur Cocaine Metabolite Neg (Neg) U Marijuana (THC) Screen Neg (Neg) Ethyl Alcohol mg/dL (0-3) mg/dl COVID-19 Eval Order Covid19 at [facility] SARS-CoV-2 (PCR) NEGATIVE (Negative) 12/02/20 12/02/20 12/02/20 Range/Units 19:45 14:46 14:46 WBC (4.8-10.8) K/uL RBC (4.7-6.1) M/uL Hgb (14.0-18.0) g/dL Hct (42-52) % MCV (80-100) fL MCH (25-34) pg MCHC (32-36) g/dL RDW Std Deviation (36.4-46.3) fL RDW Coeff of Alberto (11.5-14.5) % Plt Count (130-400) K/uL MPV (7.4-10.4) fL Immature Gran % (Auto) % Neut % (Auto) % Lymph % (Auto) % [place] % (Auto) % Eos % (Auto) % Baso % (Auto) % Neut # (Auto) (1.4-6.5) K/uL Lymph # (Auto) (1.2-3.4) K/uL [place] # (Auto) (0.11-0.59) K/uL Eos # (Auto) (0-0.5) K/uL Baso # (Auto) (0-0.2) K/uL Immature Gran # (Auto) (0.00-0.02) K/uL RBC Morphology Sodium (136-145) mmol/L Potassium (3.5-5.1) mmol/L Chloride (98-107) mmol/L Carbon Dioxide (21-32) mmol/L Anion Gap (3-11) BUN (7-18) mg/dl Creatinine (0.6-1.4) mg/dl Est Cr Clr Drug Dosing ml/min Est GFR ( Amer) ml/min Est GFR (Non-Af Amer) ml/min BUN/Creatinine Ratio (10-20) Glucose (70-99) mg/dl POC Glucose (70-99) mg/dl Estimat Average Glucose mg/dl Hemoglobin A1c (4.5-5.6) % Calcium (8.5-10.1) mg/dl Magnesium (1.8-2.4) mg/dl Total Bilirubin (0.2-1) mg/dl Direct Bilirubin (0-0.2) mg/dl AST (15-37) U/L ALT (12-78) U/L Alkaline Phosphatase (45-117) U/L Total Protein (6.4-8.2) gm/dl Albumin (3.4-5.0) gm/dl Lipase (73-393) U/L Vitamin B12 Folate TSH (0.300-4.500) uIu/ml Urine Color Yellow Urine Appearance Clear (Clear) Urine pH 5.0 (4.5-7.5) Ur Specific [place] 1.017 (1.000-1.030) Urine Protein 4+ H (Negative) Urine Glucose (UA) 2+ H (Negative) Urine Ketones Negative (Negative) Urine Blood 1+ H (Negative) Urine Nitrite Negative (Negative) Urine Bilirubin Negative (Negative) Urine Urobilinogen Positive H (Negative) Ur Leukocyte Esterase Negative (Negative) Urine WBC (Auto) 5-10 H (0-5) /hpf Urine RBC (Auto) 10-30 H (0-4) /hpf U Hyaline Cast (Auto) 1-5 (0-5) /lpf U Epithel Cells (Auto) >30 H (0-5) /lpf Urine Bacteria (Auto) Negative (Negative) Ur Renal Epithelial Cell Not Reportable Salicylates 3.8 (2.8-20) mg/dl Urine Opiates Screen (Neg) Ur Methadone, Qual (Neg) Acetaminophen < 2 L (10-30) ug/ml Urine Barbiturates (Neg) Ur Phencyclidine (PCP) (Neg) U Amphetamin/Meth Scrn (Neg) MDMA (Ecstasy) Screen (Neg) U Benzodiazepines Scrn (Neg) Ur Cocaine Metabolite (Neg) U Marijuana (THC) Screen (Neg) Ethyl Alcohol mg/dL 298.0 H (0-3) mg/dl COVID-19 Eval Order SARS-CoV-2 (PCR) (Negative) 12/02/20 12/02/20 12/02/20 Range/Units 14:46 14:46 14:44 WBC 4.07 L (4.8-10.8) K/uL RBC 4.07 L (4.7-6.1) M/uL Hgb 12.6 L (14.0-18.0) g/dL Hct 36.9 L (42-52) % MCV 90.7 (80-100) fL MCH 31.0 (25-34) pg MCHC 34.1 (32-36) g/dL RDW Std Deviation 41.6 (36.4-46.3) fL RDW Coeff of Alberto 12.5 (11.5-14.5) % Plt Count 119 L (130-400) K/uL MPV 9.4 (7.4-10.4) fL Immature Gran % (Auto) 0.2 % Neut % (Auto) 41.1 % Lymph % (Auto) 49.4 % [place] % (Auto) 7.9 % Eos % (Auto) 1.2 % Baso % (Auto) 0.2 % Neut # (Auto) 1.67 (1.4-6.5) K/uL Lymph # (Auto) 2.01 (1.2-3.4) K/uL [place] # (Auto) 0.32 (0.11-0.59) K/uL Eos # (Auto) 0.05 (0-0.5) K/uL Baso # (Auto) 0.01 (0-0.2) K/uL Immature Gran # (Auto) 0.01 (0.00-0.02) K/uL RBC Morphology Sodium 136 (136-145) mmol/L Potassium 3.9 (3.5-5.1) mmol/L Chloride 99 (98-107) mmol/L Carbon Dioxide 26 (21-32) mmol/L Anion Gap 11.0 (3-11) BUN 16 (7-18) mg/dl Creatinine 1.75 H (0.6-1.4) mg/dl Est Cr Clr Drug Dosing 59.8 ml/min Est GFR ( Amer) 49.4 ml/min Est GFR (Non-Af Amer) 42.6 ml/min BUN/Creatinine Ratio 9.3 L (10-20) Glucose 299 H (70-99) mg/dl POC Glucose 308 H* (70-99) mg/dl Estimat Average Glucose mg/dl Hemoglobin A1c (4.5-5.6) % Calcium 8.1 L (8.5-10.1) mg/dl Magnesium 1.5 L (1.8-2.4) mg/dl Total Bilirubin 0.6 (0.2-1) mg/dl Direct Bilirubin 0.4 H (0-0.2) mg/dl AST 153 H (15-37) U/L ALT 108 H (12-78) U/L Alkaline Phosphatase 110 (45-117) U/L Total Protein 6.8 (6.4-8.2) gm/dl Albumin 2.8 L (3.4-5.0) gm/dl Lipase 144 (73-393) U/L Vitamin B12 Folate TSH 2.160 (0.300-4.500) uIu/ml Urine Color Urine Appearance (Clear) Urine pH (4.5-7.5) Ur Specific [place] (1.000-1.030) Urine Protein (Negative) Urine Glucose (UA) (Negative) Urine Ketones (Negative) Urine Blood (Negative) Urine Nitrite (Negative) Urine Bilirubin (Negative) Urine Urobilinogen (Negative) Ur Leukocyte Esterase (Negative) Urine WBC (Auto) (0-5) /hpf Urine RBC (Auto) (0-4) /hpf U Hyaline Cast (Auto) (0-5) /lpf U Epithel Cells (Auto) (0-5) /lpf Urine Bacteria (Auto) (Negative) Ur Renal Epithelial Cell Salicylates (2.8-20) mg/dl Urine Opiates Screen (Neg) Ur Methadone, Qual (Neg) Acetaminophen (10-30) ug/ml Urine Barbiturates (Neg) Ur Phencyclidine (PCP) (Neg) U Amphetamin/Meth Scrn (Neg) MDMA (Ecstasy) Screen (Neg) U Benzodiazepines Scrn (Neg) Ur Cocaine Metabolite (Neg) U Marijuana (THC) Screen (Neg) Ethyl Alcohol mg/dL (0-3) mg/dl COVID-19 Eval Order SARS-CoV-2 (PCR) (Negative) Medications Administered Current Inpatient Medications Acetaminophen (Acetaminophen 325 Mg Tab) 650 mg PO Q4H PRN PRN Reason: Pain or Fever Stop: 01/01/21 22:33 Albuterol (Albuterol 0.083% Nebu Soln 3 Ml Vial) 2.5 mg INH QIDR PRN PRN Reason: Shortness Of Breath Or Wheezing Stop: 01/01/21 22:33 Amlodipine Besylate (Amlodipine Besylate 5 Mg Tab) 5 mg PO QAM [facility] Stop: 01/02/21 08:59 Last Admin: 12/03/20 08:03 Dose: 5 mg Documented by: Aspirin (Aspirin 81 Mg Ectab) 81 mg PO QAM [facility] Stop: 01/02/21 08:59 Last Admin: 12/03/20 08:03 Dose: 81 mg Documented by: Atorvastatin Calcium (Atorvastatin 40 Mg Tab) 80 mg PO DAILY [facility] Stop: 01/02/21 08:59 Last Admin: 12/03/20 08:03 Dose: 80 mg Documented by: Buprenorphine/Naloxone (Buprenorphine/Naloxone 8/2 Mg Tab) 1 tab SL BID [facility] Stop: 01/02/21 08:59 Last Admin: 12/03/20 08:09 Dose: 1 tab Documented by: Chlordiazepoxide HCl (Chlordiazepoxide 50mg Starting Dose) 50 mg PO Q6H LUCINDA; Protocol Stop: 12/03/20 18:01 Last Admin: 12/03/20 06:36 Dose: 50 mg Documented by: Chlordiazepoxide HCl (Chlordiazepoxide 50mg 2nd Dose) 50 mg PO Q8H LUCINDA; Protocol Stop: 12/04/20 16:01 Chlordiazepoxide HCl (Chlordiazepoxide 25mg 3rd Dose) 25 mg PO Q8H LUCINDA; Protocol Stop: 12/05/20 16:01 Chlordiazepoxide HCl (Chlordiazepoxide 10mg 4th Dose) 10 mg PO Q12H LUCINDA; Protocol Stop: 12/06/20 18:01 Clotrimazole (Clotrimazole 1% Cr 15 Gm Tube) 1 appln TOP BID L[facility]IN[facility] Stop: 01/02/21 08:59 Last Admin: 12/03/20 08:04 Dose: 1 appln Documented by: Cyanocobalamin (Cyanocobalamin 500 Mcg Tablet (Vitamin B-12)) 1,000 mcg PO DAILY L[facility]IN[facility] Stop: 01/02/21 08:59 Last Admin: 12/03/20 08:04 Dose: 1,000 mcg Documented by: Dextrose (Dextrose 50% 50 Ml Syringe) 25 - 50 ml IV UD PRN; Protocol PRN Reason: Hypoglycemia Protocol Stop: 01/01/21 23:29 Folic Acid (Folic Acid 1 Mg Tab) 1 mg PO QAM [facility] Stop: 01/02/21 08:59 Last Admin: 12/03/20 08:05 Dose: 1 mg Documented by: Furosemide (Furosemide 80 Mg Tab) 80 mg PO QAM [facility]INDA Stop: 01/02/21 08:59 Last Admin: 12/03/20 08:03 Dose: 80 mg Documented by: Gabapentin (Gabapentin 300 Mg Cap) 300 mg PO BID [facility] Stop: 01/02/21 08:59 Last Admin: 12/03/20 08:09 Dose: 300 mg Documented by: Glucagon (Glucagon For Inj 1 Mg Vial) 1 mg IM UD PRN; Protocol PRN Reason: Hypoglycemia Protocol Stop: 01/01/21 23:29 Glucose (Glucose 40% Gel 15 Gm Tube) 15 - 30 gm PO UD PRN; Protocol PRN Reason: Hypoglycemia Protocol Stop: 01/01/21 23:29 Glucose (Glucose 10 Tabs/Tube) 4 - 8 tabs PO UD PRN; Protocol PRN Reason: Hypoglycemia Protocol Stop: 01/01/21 23:29 Thiamine HCl 100 mg/ Syringe 10 mls @ 2 mls/min IV QAM [facility] Stop: 01/01/21 23:29 Last Admin: 12/03/20 08:03 Dose: 2 mls/min Documented by: Folic Acid 1 mg/ Syringe 10 mls @ 5 mls/min IV QAM [facility] Stop: 01/01/21 23:29 Last Admin: 12/03/20 08:05 Dose: 5 mls/min Documented by: Lorazepam (Ativan) 1 mg in 2 mls @ 2 mls/min IV UD PRN; Protocol PRN Reason: EtOH Withdrawl AWSS Score 6,7 Stop: 01/01/21 22:33 Lorazepam (Ativan) 2 mg in 4 mls @ 4 mls/min IV UD PRN; Protocol PRN Reason: EtOH Withdrawl AWSS Score 8,9 Stop: 01/01/21 22:33 Last Admin: 12/03/20 08:17 Dose: 4 mls/min Documented by: Lorazepam (Ativan) 3 mg in 6 mls @ 4 mls/min IV ONCE PRN; Protocol PRN Reason: EtOH Withdrawl AWSS Score >=10 Stop: 01/01/21 22:33 Insulin Aspart (Insulin Aspart 100 Units/Ml 3 Ml Pen) 0 units SC ACHS [facility] Stop: 01/01/21 23:29 Last Admin: 12/03/20 08:02 Dose: Not Given Documented by: Insulin Detemir (Insulin Detemir Flexpen/Flex Touch 100 Units/Ml 3ml) 45 units SQ BID [facility] Stop: 01/01/21 23:44 Last Admin: 12/03/20 08:06 Dose: 45 units Documented by: Losartan Potassium (Losartan Potassium 50 Mg Tab) 50 mg PO QAM [facility] Stop: 01/02/21 08:59 Last Admin: 12/03/20 08:05 Dose: 50 mg Documented by: Magnesium Oxide (Magnesium Oxide 400 Mg Tab) 400 mg PO QAM [facility] Stop: 01/02/21 08:59 Last Admin: 12/03/20 08:03 Dose: 400 mg Documented by: Metoprolol Succinate (Metoprolol Succ 25mg Ext Rel Tab) 75 mg PO QAM [facility] Stop: 01/02/21 08:59 Last Admin: 12/03/20 08:04 Dose: 75 mg Documented by: Miscellaneous (Remove Nicoderm Patch) 1 ea N/A DAILY@[id number] [facility] Stop: 01/02/21 08:58 Last Admin: 12/03/20 08:06 Dose: 1 ea Documented by: Miscellaneous (*Disulfiram*Order Awaiting Action) 1 ea N/A QS [facility] Stop: 01/02/21 00:00 Last Admin: 12/03/20 00:13 Dose: Not Given Documented by: Shilacellaneous (Carbohydrates For Hypoglycemia ) 15 - 30 gm PO UD PRN PRN Reason: Hypoglycemia Treatment Stop: 01/01/21 23:29 Multivitamins (Multivitamin Tab) 1 tab PO DAILY [facility] Stop: 01/02/21 08:59 Last Admin: 12/03/20 08:03 Dose: 1 tab Documented by: Naloxone HCl (Naloxone Hcl 0.4 Mg/1 Ml Vial/Carp) 0.4 mg IV DAILY PRN PRN Reason: OVERSEDATION Stop: 01/01/21 22:33 Nicotine (Nicotine 14 Mg/24 Hr Patch) 14 mg TD [facility] Stop: 01/01/21 14:44 Last Admin: 12/02/20 15:46 Dose: 14 mg Documented by: Nitroglycerin (Nitroglycerin Sl 0.4 Mg/Tab Tab) 0.4 mg SL UD PRN PRN Reason: Chest Pain Stop: 01/01/21 22:33 Ondansetron HCl (Ondansetron Inj 2 Mg/Ml 2 Ml Vial) 4 mg IV Q6H PRN PRN Reason: Nausea Stop: 01/01/21 22:33 Polyethylene Glycol (Polyethylene (Miralax) 17 Gm Pack) 17 gm PO DAILY PRN PRN Reason: Constipation Stop: 01/01/21 22:33 Venlafaxine HCl (Venlafaxine Hcl Xr 150 Mg Capxr) 150 mg PO QAM [facility] Stop: 01/02/21 08:59 Last Admin: 12/03/20 08:04 Dose: 150 mg Documented by:
[2020-12-03 09:23] LABS: Folate (Folic Acid) > 20.00 ng/ml (>5.38); Vitamin B12 831 pg/ml (193-986)
[2020-12-03] MEDS: NICOTINE 14 MG/24 HR PATCH TD SCH (09:50)
[2020-12-03] MEDS ORDERED: PHARMACY GLYCEMIC MGMT CONSULT PRN (11:50)
[2020-12-03] MEDS: LORazepam 1 MG/2 ML VIAL IV PRN ×2 (12:03→19:30)
[2020-12-03] MEDS ORDERED: INSULIN DETEMIR FLEXPEN/FLEX TOUCH 100 UNITS/ML 3ML SQ SCH (21:00)
[2020-12-03] MEDS: CHLORDIAZEPOXIDE 50MG 2ND DOSE PO SCH (23:47)
[2020-12-04] MEDS: LORazepam 2 MG/4 ML VIAL IV PRN ×2 (03:21→20:41)
[2020-12-04] MEDS: INSULIN ASPART 100 UNITS/ML 3 ML PEN SC SCH ×5 (04:13→20:12)
[2020-12-04] MEDS: CLOTRIMAZOLE 1% CR 15 GM TUBE TOP SCH ×2 (08:05→19:43)
[2020-12-04] MEDS: FOLIC ACID 1 MG in SYRINGE 9.8 ML IV SCH (08:08)
[2020-12-04] MEDS: CHLORDIAZEPOXIDE 50MG 2ND DOSE PO SCH ×2 (08:08→16:49)
[2020-12-04] MEDS: BUPRENORPHINE/NALOXONE 8/2 MG TAB SL SCH ×2 (08:08→19:48)
[2020-12-04] MEDS: THIAMINE HCL 100 MG in SYRINGE 9 ML IV SCH (08:08)
[2020-12-04] MEDS: VENLAFAXINE HCL XR 150 MG CAPXR PO SCH (08:08)
[2020-12-04] MEDS: MAGNESIUM OXIDE 400 MG TAB PO SCH (08:09)
[2020-12-04] MEDS: GABAPENTIN 300 MG CAP PO SCH ×2 (08:09→19:44)
[2020-12-04] MEDS: NICOTINE 14 MG/24 HR PATCH TD SCH (08:09)
[2020-12-04] MEDS: ASPIRIN 81 MG ECTAB PO SCH (08:09)
[2020-12-04] MEDS: ATORVASTATIN 40 MG TAB PO SCH (08:09)
[2020-12-04] MEDS: FUROSEMIDE 80 MG TAB PO SCH (08:09)
[2020-12-04] MEDS: amLODIPine BESYLATE 5 MG TAB PO SCH (08:09)
[2020-12-04] MEDS: FOLIC ACID 1 MG TAB PO SCH (08:09)
[2020-12-04] MEDS: LOSARTAN POTASSIUM 50 MG TAB PO SCH (08:09)
[2020-12-04] MEDS: METOPROLOL SUCC 25MG EXT REL TAB PO SCH (08:09)
[2020-12-04] MEDS: CYANOCOBALAMIN 500 MCG TABLET (VITAMIN B-12) PO SCH (08:09)
[2020-12-04] MEDS: MULTIVITAMIN TAB PO SCH (08:10)
[2020-12-04] MEDS: INSULIN DETEMIR FLEXPEN/FLEX TOUCH 100 UNITS/ML 3ML SQ SCH (08:10)
[2020-12-04 09:21] LABS: Hematocrit (blood only) 36.3 % (42-52); Hemoglobin 11.5 g/dL (14.0-18.0); Mean Corpuscular Hemoglobin 30.3 pg (25-34); Mean Corpuscular Hgb Conc 31.7 g/dL (32-36); Mean Corpuscular Volume 95.5 fL (80-100); RDW Coefficient of Variation 12.3 % (11.5-14.5); RDW Standard Deviation 43.4 fL (36.4-46.3); White Blood Count 2.93 K/uL (4.8-10.8)
--- NOTE | 2020-12-04 09:31 | Hospitalist Progress Note ---
Date of Service December 04, 2020 Assessment & Plan (1) Alcohol withdrawal syndrome: (2) Pancytopenia: (3) CKD (chronic kidney disease), stage III: Plan: This is a 55-year-old male, presents with ongoing alcoholism. 1. Alcoholism. The patient says he was recently in rehabilitation, came back home 2 weeks ago, again started drinking. Placed him on alcohol withdrawal protocol with Librium and Ativan p.r.n. received banana bag and IV thiamine and folic acid from a.m. closely monitor in telemetry floor. 2. Chronic kidney disease stage III, presents with creatinine of 1.7, which is same as last time discharge. Has proteinuria. Follows with nephrology. On losartan. We will follow the laboratories. 3. Tobacco abuse, on nicotine patch. 4. Diabetes, current hgb A1c 8.2% - continue insulin sliding scale and Levemir. We will follow the blood sugars. 5. Peripheral neuropathy, on gabapentin. 6. Hypertension, on amlodipine, losartan, metoprolol and also diuretics. We will monitor the blood pressure. 7. CAD, status post stent. Continue aspirin, statin, and metoprolol. 8. History of depression. Continue Effexor. 9. Chronic pain, on Suboxone. 10. Obstructive sleep apnea, noncompliant with CPAP. 11. Pancytopenia/Thrombocytopenia, platelets of 119, likely from alcoholism. We will follow the laboratories. DVT prophylaxis. SCDs for now. Code status: Full code. DISPOSITION: tele floor. PT/OT prior to discharge. Social service to help with discharge planning. Admission and Anticipated Discharge Date Admission Date: December 02, 2020 Subjective Patient seen in follow-up of alcohol withdrawal currently sitting up in bed in no acute distress, has no complaints besides tremors denies chest pain shortness of breath abdominal pain, nausea vomiting Review of Systems Review of Systems: All systems reviewed & are unremarkable except as noted in Subjective Physical Exam Physical Exam: GENERAL: obese M, in NAD HEENT: NC/AT, EOMI, PERRL. Oral mucosa moist. NECK: No JVD or neck masses. CARDIOVASCULAR: S1 and S2 heard. Regular rate and rhythm. No murmur, no gallop. RESPIRATORY: Normal AP diameter. No accessory muscle use. No wheezing, no crackles. ABDOMEN: Soft, bowel sounds present, nontender, no distention. NEURO: able to answer simple questions appropriately, speech slow but fluent, no facial asymmetry, moves extremities EXTREMITIES: Mild pedal edema present, no erythema seen. Results & Data Results & Data ([facility]) Vital Signs (Past 12 Hours) Vital Signs Temp Pulse Pulse Resp BP Pulse Ox Pulse Ox 12/04/20 07:30 37.0 C 80 18 180/102 H 95 12/04/20 04:39 77 12/04/20 03:17 37.2 C 79 18 186/108 H 91 12/03/20 22:59 37.0 C 72 20 146/89 H 98 12/03/20 22:34 91 Medications Administered Current Inpatient Medications Acetaminophen (Acetaminophen 325 Mg Tab) 650 mg PO Q4H PRN PRN Reason: Pain or Fever Stop: 01/01/21 22:33 Albuterol (Albuterol 0.083% Nebu Soln 3 Ml Vial) 2.5 mg INH QIDR PRN PRN Reason: Shortness Of Breath Or Wheezing Stop: 01/01/21 22:33 Amlodipine Besylate (Amlodipine Besylate 5 Mg Tab) 5 mg PO QAM [facility] Stop: 01/02/21 08:59 Last Admin: 12/04/20 08:09 Dose: 5 mg Documented by: Aspirin (Aspirin 81 Mg Ectab) 81 mg PO QAM [facility] Stop: 01/02/21 08:59 Last Admin: 12/04/20 08:09 Dose: 81 mg Documented by: Atorvastatin Calcium (Atorvastatin 40 Mg Tab) 80 mg PO DAILY [facility] Stop: 01/02/21 08:59 Last Admin: 12/04/20 08:09 Dose: 80 mg Documented by: Buprenorphine/Naloxone (Buprenorphine/Naloxone 8/2 Mg Tab) 1 tab SL BID [facility] Stop: 01/02/21 08:59 Last Admin: 12/04/20 08:08 Dose: 1 tab Documented by: Chlordiazepoxide HCl (Chlordiazepoxide 50mg 2nd Dose) 50 mg PO Q8H [facility]; Protocol Stop: 12/04/20 16:01 Last Admin: 12/04/20 08:08 Dose: 50 mg Documented by: Chlordiazepoxide HCl (Chlordiazepoxide 25mg 3rd Dose) 25 mg PO Q8H [facility]; Protocol Stop: 12/05/20 16:01 Chlordiazepoxide HCl (Chlordiazepoxide 10mg 4th Dose) 10 mg PO Q12H [facility]; Protocol Stop: 12/06/20 18:01 Clotrimazole (Clotrimazole 1% Cr 15 Gm Tube) 1 appln TOP BID [facility] Stop: 01/02/21 08:59 Last Admin: 12/04/20 08:05 Dose: Not Given Documented by: Cyanocobalamin (Cyanocobalamin 500 Mcg Tablet (Vitamin B-12)) 1,000 mcg PO DAILY [facility] Stop: 01/02/21 08:59 Last Admin: 12/04/20 08:09 Dose: 1,000 mcg Documented by: Dextrose (Dextrose 50% 50 Ml Syringe) 25 - 50 ml IV UD PRN; Protocol PRN Reason: Hypoglycemia Protocol Stop: 01/01/21 23:29 Folic Acid (Folic Acid 1 Mg Tab) 1 mg PO QAM [facility] Stop: 01/02/21 08:59 Last Admin: 12/04/20 08:09 Dose: 1 mg Documented by: Furosemide (Furosemide 80 Mg Tab) 80 mg PO QAM [facility] Stop: 01/02/21 08:59 Last Admin: 12/04/20 08:09 Dose: 80 mg Documented by: Gabapentin (Gabapentin 300 Mg Cap) 300 mg PO BID [facility] Stop: 01/02/21 08:59 Last Admin: 12/04/20 08:09 Dose: 300 mg Documented by: Glucagon (Glucagon For Inj 1 Mg Vial) 1 mg IM UD PRN; Protocol PRN Reason: Hypoglycemia Protocol Stop: 01/01/21 23:29 Glucose (Glucose 40% Gel 15 Gm Tube) 15 - 30 gm PO UD PRN; Protocol PRN Reason: Hypoglycemia Protocol Stop: 01/01/21 23:29 Glucose (Glucose 10 Tabs/Tube) 4 - 8 tabs PO UD PRN; Protocol PRN Reason: Hypoglycemia Protocol Stop: 01/01/21 23:29 Thiamine HCl 100 mg/ Syringe 10 mls @ 2 mls/min IV QAM [facility] Stop: 01/01/21 23:29 Last Admin: 12/04/20 08:08 Dose: 2 mls/min Documented by: Folic Acid 1 mg/ Syringe 10 mls @ 5 mls/min IV QAM [facility] Stop: 01/01/21 23:29 Last Admin: 12/04/20 08:08 Dose: 5 mls/min Documented by: Lorazepam (Ativan) 1 mg in 2 mls @ 2 mls/min IV UD PRN; Protocol PRN Reason: EtOH Withdrawl AWSS Score 6,7 Stop: 01/01/21 22:33 Last Admin: 12/03/20 19:30 Dose: 2 mls/min Documented by: Lorazepam (Ativan) 2 mg in 4 mls @ 4 mls/min IV UD PRN; Protocol PRN Reason: EtOH Withdrawl AWSS Score 8,9 Stop: 01/01/21 22:33 Last Admin: 12/04/20 03:21 Dose: 4 mls/min Documented by: Lorazepam (Ativan) 3 mg in 6 mls @ 4 mls/min IV ONCE PRN; Protocol PRN Reason: EtOH Withdrawl AWSS Score >=10 Stop: 01/01/21 22:33 Last Admin: 12/04/20 08:25 Dose: 3 mls/min Documented by: Insulin Aspart (Insulin Aspart 100 Units/Ml 3 Ml Pen) 0 units SC ACHS [facility] Stop: 01/01/21 23:29 Last Admin: 12/04/20 08:13 Dose: 11 units Documented by: Insulin Detemir (Insulin Detemir Flexpen/Flex Touch 100 Units/Ml 3ml) 45 units SQ QAM [facility] Stop: 01/03/21 08:59 Last Admin: 12/04/20 08:10 Dose: 45 units Documented by: Losartan Potassium (Losartan Potassium 50 Mg Tab) 50 mg PO QAM [facility] Stop: 01/02/21 08:59 Last Admin: 12/04/20 08:09 Dose: 50 mg Documented by: Magnesium Oxide (Magnesium Oxide 400 Mg Tab) [facility] Stop: 01/02/21 08:59 Last Admin: 12/04/20 08:09 Dose: 400 mg Documented by: Metoprolol Succinate (Metoprolol Succ 25mg Ext Rel Tab) 75 [facility] Stop: 01/02/21 08:59 Last Admin: 12/04/20 08:09 Dose: 75 mg Documented by: Miscellaneous (Remove Nicoderm Patch) 1 ea N/A DAILY@[id number] [facility] Stop: 01/02/21 08:58 Last Admin: 12/04/20 08:04 Dose: 1 ea Documented by: Miscellaneous (*Disulfiram*Order Awaiting Action) 1 ea N/A QS [facility] Stop: 01/02/21 00:00 Last Admin: 12/04/20 08:04 Dose: Not Given Documented by: Miscellaneous (Carbohydrates For Hypoglycemia ) 15 - 30 gm PO UD PRN PRN Reason: Hypoglycemia Treatment Stop: 01/01/21 23:29 Miscellaneous Information (Pharmacy Glycemic Mgmt Consult) 1 ea N/A UD PRN PRN Reason: Consult Stop: 01/02/21 11:49 Multivitamins (Multivitamin Tab) 1 tab PO DAILY [facility] Stop: 01/02/21 08:59 Last Admin: 12/04/20 08:10 Dose: 1 tab Documented by: Naloxone HCl (Naloxone Hcl 0.4 Mg/1 Ml Vial/Carp) 0.4 mg IV DAILY PRN PRN Reason: OVERSEDATION Stop: 01/01/21 22:33 Nicotine (Nicotine 14 Mg/24 Hr Patch) 14 mg TD QAM [facility] Stop: 01/01/21 14:44 Last Admin: 12/04/20 08:09 Dose: 14 mg Documented by: Nitroglycerin (Nitroglycerin Sl 0.4 Mg/Tab Tab) 0.4 mg SL UD PRN PRN Reason: Chest Pain Stop: 01/01/21 22:33 Ondansetron HCl (Ondansetron Inj 2 Mg/Ml 2 Ml Vial) 4 mg IV Q6H PRN PRN Reason: Nausea Stop: 01/01/21 22:33 Polyethylene Glycol (Polyethylene (Miralax) 17 Gm Pack) 17 gm PO DAILY PRN PRN Reason: Constipation Stop: 01/01/21 22:33 Venlafaxine HCl (Venlafaxine Hcl Xr 150 Mg Capxr) 150 mg PO QAM [facility] Stop: 01/02/21 08:59 Last Admin: 12/04/20 08:08 Dose: 150 mg Documented by:
[2020-12-04 09:41] LABS: BUN Creatinine Ratio 13.3 (10-20); Calcium 8.4 mg/dl (8.5-10.1); Creatinine Clr Calc Pharmacy 91.3 ml/min; Est GFR (African American) 84.7 ml/min; Magnesium 1.3 mg/dl (1.8-2.4); Phosphorus 3.5 mg/dl (2.5-4.9); Potassium 3.7 mmol/L (3.5-5.1)
[2020-12-04 09:53] LABS: Mean Platelet Volume 10.3 fL (7.4-10.4); Platelet Count 82 K/uL (130-400); Platelet Estimate Decreased (Normal)
[2020-12-04] MEDS: MAGNESIUM SULFATE / D5W 1 GM/100 ML BAG IV SCH ×2 (10:30→12:32)
--- NOTE | 2020-12-04 20:34 | Pharmacy Report ---
Pharmacy Glycemic Short Note 2 - Date of Service December 04, 2020 - Glycemic Short BSG Results (Last 24 hours): 12/03/20 12/04/20 12/04/20 23:44 04:09 07:32 Glucose POC Glucose 86 189 H 216 H 12/04/20 12/04/20 12/04/20 09:07 11:31 11:32 Glucose 182 H POC Glucose 64 L* 59 L* 12/04/20 12/04/20 12/04/20 11:49 16:17 20:03 Glucose POC Glucose 80 181 H 199 H OUTPATIENT ANTIDIABETIC REGIMEN: * Levemir 45 units SQ HS, Novolog SS * Prescribed Ozempic - pt reports not taking * A1c = 8.2% (12/03/20) ASSESSMENT: * Dewayne is a 55 yo T2DM admitted for alcohol abuse and request for detox * He is know to the glycemic service from previous admissions * He had severe hyperglycemia on admission followed by 24 hours of BSGs below goal after receiving two doses of Levemir 45 units and a large dose of 15 units of Novolog on 12/02 pm * Fasting significantly elevated today. Will add bedtime dose of Levemir (pt has required BID dosing in the past due to levemir not lasting 24 hours). * Novolog loosened after patient had yet another hypoglycemic episode at lunch (BSG = 59 mg/dL) PLAN FOR INPATIENT GLYCEMIC CONTROL: * Hold outpatient oral diabetes medications * Basal insulin * Levemir 45 units SQ qAM * Levemir 10 units SQ qPM * Bolus insulin * NovoLog per scale ACHS or Q6hrs while NPO * Goal Range: Low 110 mg/dL - High 159 mg/dL * Correction Factor: 30 mg/dL/unit * Nutritional / Prandial insulin per carb ratio of 1 unit per 9 grams CHO consumed * Add overnight check PLAN FOR DISCHARGE: *
[2020-12-04] MEDS ORDERED: INSULIN DETEMIR FLEXPEN/FLEX TOUCH 100 UNITS/ML 3ML SQ SCH (21:00)
[2020-12-04] MEDS: CHLORDIAZEPOXIDE 25MG 3RD DOSE PO SCH (23:37)
[2020-12-05] MEDS ORDERED: INSULIN ASPART 100 UNITS/ML 3 ML PEN SC SCH (02:00)
[2020-12-05] MEDS ORDERED: cloNIDine HCL 0.1 MG TAB PO ONE (03:56)
[2020-12-05 06:56] LABS: Hematocrit (blood only) 38.7 % (42-52); Hemoglobin 12.7 g/dL (14.0-18.0); Mean Corpuscular Hemoglobin 31.4 pg (25-34); Mean Corpuscular Hgb Conc 32.8 g/dL (32-36); Mean Corpuscular Volume 95.8 fL (80-100); RDW Coefficient of Variation 12.1 % (11.5-14.5); RDW Standard Deviation 42.8 fL (36.4-46.3); Red Blood Count 4.04 M/uL (4.7-6.1); White Blood Count 4.15 K/uL (4.8-10.8)
[2020-12-05 07:21] LABS: Mean Platelet Volume 10.7 fL (7.4-10.4); Platelet Count 96 K/uL (130-400)
[2020-12-05 07:34] LABS: BUN Creatinine Ratio 18.1 (10-20); Calcium 8.7 mg/dl (8.5-10.1); Creatinine Clr Calc Pharmacy 93.6 ml/min; Est GFR (African American) 87.5 ml/min; Est GFR (Non-African American) 75.5 ml/min; Magnesium 1.5 mg/dl (1.8-2.4); Phosphorus 3.4 mg/dl (2.5-4.9); Potassium 4.3 mmol/L (3.5-5.1)
[2020-12-05] MEDS: GABAPENTIN 300 MG CAP PO SCH ×2 (07:57→19:59)
[2020-12-05] MEDS: MULTIVITAMIN TAB PO SCH (07:58)
[2020-12-05] MEDS: LOSARTAN POTASSIUM 50 MG TAB PO SCH (07:58)
[2020-12-05] MEDS: NICOTINE 14 MG/24 HR PATCH TD SCH (07:58)
[2020-12-05] MEDS: amLODIPine BESYLATE 5 MG TAB PO SCH (07:58)
[2020-12-05] MEDS: FOLIC ACID 1 MG TAB PO SCH (07:59)
[2020-12-05] MEDS: METOPROLOL SUCC 25MG EXT REL TAB PO SCH (07:59)
[2020-12-05] MEDS: MAGNESIUM OXIDE 400 MG TAB PO SCH (07:59)
[2020-12-05] MEDS: FUROSEMIDE 80 MG TAB PO SCH (07:59)
[2020-12-05] MEDS: CYANOCOBALAMIN 500 MCG TABLET (VITAMIN B-12) PO SCH (07:59)
[2020-12-05] MEDS: VENLAFAXINE HCL XR 150 MG CAPXR PO SCH (07:59)
[2020-12-05] MEDS: ASPIRIN 81 MG ECTAB PO SCH (08:00)
[2020-12-05] MEDS: ATORVASTATIN 40 MG TAB PO SCH (08:00)
[2020-12-05] MEDS: FOLIC ACID 1 MG in SYRINGE 9.8 ML IV SCH (08:01)
[2020-12-05] MEDS: CLOTRIMAZOLE 1% CR 15 GM TUBE TOP SCH ×2 (08:01→19:58)
[2020-12-05] MEDS: THIAMINE HCL 100 MG in SYRINGE 9 ML IV SCH (08:01)
[2020-12-05] MEDS: BUPRENORPHINE/NALOXONE 8/2 MG TAB SL SCH ×2 (08:08→20:01)
[2020-12-05] MEDS: INSULIN ASPART 100 UNITS/ML 3 ML PEN SC SCH ×4 (08:37→20:34)
[2020-12-05] MEDS: INSULIN DETEMIR FLEXPEN/FLEX TOUCH 100 UNITS/ML 3ML SQ SCH ×2 (08:39→20:34)
[2020-12-05] MEDS: MAGNESIUM SULFATE / D5W 1 GM/100 ML BAG IV SCH ×2 (08:40→10:53)
[2020-12-05] MEDS: CHLORDIAZEPOXIDE 25MG 3RD DOSE PO SCH ×2 (08:42→17:14)
--- NOTE | 2020-12-05 09:27 | Pharmacy Report ---
Pharmacy Glycemic Short Note 2 - Date of Service December 05, 2020 - Glycemic Short BSG Results (Last 24 hours): 12/04/20 12/04/20 12/04/20 09:07 11:31 11:32 Glucose 182 H POC Glucose 64 L* 59 L* 12/04/20 12/04/20 12/04/20 11:49 16:17 20:03 Glucose POC Glucose 80 181 H 199 H 12/05/20 12/05/20 12/05/20 01:52 06:14 07:01 Glucose 231 H POC Glucose 134 H 263 H OUTPATIENT ANTIDIABETIC REGIMEN: * Levemir 45 units SQ HS, Novolog SS * Prescribed Ozempic - pt reports not taking * A1c = 8.2% (12/03/20) ASSESSMENT: 12/05 * Pt has received 71 units of insulin over the past 24hrs * 55 units of basal with Lantus * 16 units of bolus with NovoLog * Minimal CHO coverage given because CR was DC yesterday for hypo prior to lunch and not resumed * BSGs now trending upwards. Will increase PM dose of Levemir and add CR back. 12/03 * Dewayne is a 55 yo T2DM admitted for alcohol abuse and request for detox * He is know to the glycemic service from previous admissions * He had severe hyperglycemia on admission followed by 24 hours of BSGs below goal after receiving two doses of Levemir 45 units and a large dose of 15 units of Novolog on 12/02 pm * Fasting significantly elevated today. Will add bedtime dose of Levemir (pt has required BID dosing in the past due to levemir not lasting 24 hours). * Novolog loosened after patient had yet another hypoglycemic episode at lunch (BSG = 59 mg/dL) PLAN FOR INPATIENT GLYCEMIC CONTROL: * Hold outpatient oral diabetes medications * Basal insulin * Levemir 45 units SQ qAM * Levemir 12 units SQ qPM * Bolus insulin * NovoLog per scale ACHS or Q6hrs while NPO * Goal Range: Low 110 mg/dL - High 159 mg/dL * Correction Factor: 30 mg/dL/unit * Nutritional / Prandial insulin per carb ratio of 1 unit per 9 grams CHO consumed * Add overnight check PLAN FOR DISCHARGE: * TBD
[2020-12-05] MEDS: MAGNESIUM CHLORIDE 64MG DELAYED REL TAB PO SCH ×2 (15:48→19:59)
--- NOTE | 2020-12-05 17:13 | Hospitalist Progress Note ---
Date of Service December 05, 2020 Assessment & Plan (1) Alcohol withdrawal syndrome: (2) Pancytopenia: (3) CKD (chronic kidney disease), stage III: Plan: Patient is a 55 yr male who presents with ongoing alcoholism. Alcoholism. Recently discharged from [facility] Continue Alcohol withdrawal protocol On Librium and Ativan p.r.n. Continue thiamine and folic acid Counseled to quit drinking Chronic kidney disease stage III, Cr: 1.7 Follows with nephrology Monitor renal function Hypomagnesemia M.5 Replace as needed Tobacco abuse on nicotine patch. DM II Hb A1c 8.2% continue Insulin Monitor BGs Peripheral neuropathy on gabapentin Hypertension on amlodipine, losartan, metoprolol Also on diuretics CAD S/P stent Continue aspirin, statin, and metoprolol. Depression Continue Effexor Chronic pain on Suboxone Obstructive sleep apnea Noncompliant with CPAP. Pancytopenia Thrombocytopenia likely from alcoholism Monitor DVT Px SCDs for now Re: Thrombocytopenia Code status: Full code. DISPOSITION: PT/OT prior to discharge Social service to help with discharge planning. Admission and Anticipated Discharge Date Admission Date: December 02, 2020 Subjective Patient is seen and examined at bedside States having loose BM today Reports chronic back pain Also states having tremor Denies chest pain, dyspnea, dizziness, nausea, vomiting Offers no other complaints Review of Systems Review of Systems: All systems reviewed & are unremarkable except as noted in Subjective Physical Exam Physical Exam: Physical Exam: Vitals signs as noted above General Appearance:Obese, Moderately built and nourished, no apparent distress Head: normocephalic, Atraumatic Eyes: normal inspection, EOMI Neck: supple, Trachea midline Respiratory/Chest: Normal breath sounds, CTA, No accessory muscle use Cardiovascular: S1, S2, No murmur Abdomen/GI:Soft, Non tender, Bowel sounds present Extremities/Musculoskeletal:normal inspection, Chronic LE edema Neurologic/Psych:AAOX3, grossly no focal neurological deficits, +Tremor Skin: normal color, warm Results & Data Results & Data ([facility]) Vital Signs (Past 12 Hours) Vital Signs Temp Pulse Pulse Resp BP Pulse Ox 12/05/20 16:00 36.8 C 82 69 18 161/89 H 91 12/05/20 08:00 79 12/05/20 07:16 37.0 C 74 19 154/88 H 94 Laboratory Results Short CBC 12/05/20 Range/Units 06:14 WBC 4.15 L (4.8-10.8) K/uL Hgb 12.7 L (14.0-18.0) g/dL Hct 38.7 L (42-52) % Plt Count 96 L (130-400) K/uL [facility] 12/05/20 06:14 Sodium 141 Potassium 4.3 D Chloride 103 Carbon Dioxide 32 BUN 20 H Creatinine 1.09 Glucose 231 H Calcium 8.7
[2020-12-05] MEDS: LORazepam 2 MG/4 ML VIAL IV PRN (22:43)
[2020-12-06] MEDS: ACETAMINOPHEN 325 MG TAB PO PRN (06:11)
[2020-12-06] MEDS: CHLORDIAZEPOXIDE 10MG 4TH DOSE PO SCH ×2 (06:11→17:00)
[2020-12-06 06:31] LABS: Hematocrit (blood only) 38.9 % (42-52); Hemoglobin 12.9 g/dL (14.0-18.0); Mean Corpuscular Hemoglobin 31.1 pg (25-34); Mean Corpuscular Hgb Conc 33.2 g/dL (32-36); Mean Corpuscular Volume 93.7 fL (80-100); Platelet Count 115 K/uL (130-400); RDW Coefficient of Variation 12.3 % (11.5-14.5); RDW Standard Deviation 41.5 fL (36.4-46.3); Red Blood Count 4.15 M/uL (4.7-6.1)
[2020-12-06 07:07] LABS: BUN Creatinine Ratio 21.9 (10-20); Calcium 9.1 mg/dl (8.5-10.1); Creatinine Clr Calc Pharmacy 87.2 ml/min; Est GFR (African American) 80.3 ml/min; Est GFR (Non-African American) 69.3 ml/min; Magnesium 1.7 mg/dl (1.8-2.4); Potassium 4.5 mmol/L (3.5-5.1)
[2020-12-06] MEDS ORDERED: cloNIDine HCL 0.1 MG TAB PO PRN (07:31)
[2020-12-06] MEDS: THIAMINE HCL 100 MG in SYRINGE 9 ML IV SCH (07:53)
[2020-12-06] MEDS: FOLIC ACID 1 MG in SYRINGE 9.8 ML IV SCH (07:53)
[2020-12-06] MEDS: FOLIC ACID 1 MG TAB PO SCH (07:54)
[2020-12-06] MEDS: ATORVASTATIN 40 MG TAB PO SCH (07:54)
[2020-12-06] MEDS: CYANOCOBALAMIN 500 MCG TABLET (VITAMIN B-12) PO SCH (07:54)
[2020-12-06] MEDS: amLODIPine BESYLATE 5 MG TAB PO SCH (07:54)
[2020-12-06] MEDS: METOPROLOL SUCC 25MG EXT REL TAB PO SCH (07:54)
[2020-12-06] MEDS: MULTIVITAMIN TAB PO SCH (07:54)
[2020-12-06] MEDS: LOSARTAN POTASSIUM 50 MG TAB PO SCH (07:54)
[2020-12-06] MEDS: MAGNESIUM CHLORIDE 64MG DELAYED REL TAB PO SCH ×2 (07:54→20:46)
[2020-12-06] MEDS: ASPIRIN 81 MG ECTAB PO SCH (07:54)
[2020-12-06] MEDS: FUROSEMIDE 80 MG TAB PO SCH (07:55)
[2020-12-06] MEDS: GABAPENTIN 300 MG CAP PO SCH ×2 (07:55→20:46)
[2020-12-06] MEDS: NICOTINE 14 MG/24 HR PATCH TD SCH (07:56)
[2020-12-06] MEDS: CLOTRIMAZOLE 1% CR 15 GM TUBE TOP SCH ×2 (07:56→20:45)
[2020-12-06] MEDS: VENLAFAXINE HCL XR 150 MG CAPXR PO SCH (07:57)
[2020-12-06] MEDS: BUPRENORPHINE/NALOXONE 8/2 MG TAB SL SCH ×2 (08:02→20:46)
[2020-12-06] MEDS: INSULIN ASPART 100 UNITS/ML 3 ML PEN SC SCH ×4 (08:49→20:36)
[2020-12-06] MEDS: MAGNESIUM SULFATE / D5W 1 GM/100 ML BAG IV SCH ×2 (08:52→11:06)
[2020-12-06] MEDS: INSULIN DETEMIR FLEXPEN/FLEX TOUCH 100 UNITS/ML 3ML SQ SCH ×2 (09:04→20:37)
--- NOTE | 2020-12-06 09:51 | Pharmacy Report ---
Pharmacy Glycemic Short Note 2 - Date of Service December 06, 2020 - Glycemic Short BSG Results (Last 24 hours): 12/05/20 12/05/20 12/05/20 11:08 16:28 20:31 Glucose POC Glucose 115 H 122 H 199 H 12/06/20 12/06/20 06:14 07:07 Glucose 109 H POC Glucose 108 H OUTPATIENT ANTIDIABETIC REGIMEN: * Levemir 45 units SQ HS, Novolog SS * Prescribed Ozempic - pt reports not taking * A1c = 8.2% (12/03/20) ASSESSMENT: 12/06 * BSGs improving with increase in PM basal insulin dose * Post-prandial BSGs elevated when previous BSG in goal range- indicates that more CHO coverage needed. Will loosen CF while tightening CR to prevent significant drop in BSGs when BSG is elevated pre-meal. 12/05 * Pt has received 71 units of insulin over the past 24hrs * 55 units of basal with Lantus * 16 units of bolus with NovoLog * Minimal CHO coverage given because CR was DC yesterday for hypo prior to lunch and not resumed * BSGs now trending upwards. Will increase PM dose of Levemir and add CR back. 12/03 * Dewayne is a 55 yo T2DM admitted for alcohol abuse and request for detox * He is know to the glycemic service from previous admissions * He had severe hyperglycemia on admission followed by 24 hours of BSGs below goal after receiving two doses of Levemir 45 units and a large dose of 15 units of Novolog on 12/02 pm * Fasting significantly elevated today. Will add bedtime dose of Levemir (pt has required BID dosing in the past due to levemir not lasting 24 hours). * Novolog loosened after patient had yet another hypoglycemic episode at lunch (BSG = 59 mg/dL) PLAN FOR INPATIENT GLYCEMIC CONTROL: * Hold outpatient oral diabetes medications * Basal insulin * Levemir 45 units SQ qAM * Levemir 12 units SQ qPM * Bolus insulin * NovoLog per scale ACHS or Q6hrs while NPO * Goal Range: Low 110 mg/dL - High 159 mg/dL * Correction Factor: 40 mg/dL/unit (loosen) * Nutritional / Prandial insulin per carb ratio of 1 unit per 8 grams CHO consumed (tighten) PLAN FOR DISCHARGE: * TBD
[2020-12-06] MEDS ORDERED: LORazepam 1 MG TAB PO PRN (12:21)
--- NOTE | 2020-12-06 16:39 | Hospitalist Progress Note ---
Date of Service December 06, 2020 Assessment & Plan (1) Alcohol withdrawal syndrome: (2) Pancytopenia: (3) CKD (chronic kidney disease), stage III: Plan: Patient is a 55 yr male who presents with ongoing alcoholism. Alcoholism. Recently discharged from [facility] Continue Alcohol withdrawal protocol Will complete Librium course today Ativan p.r.n. Continue thiamine and folic acid Counseled to quit drinking Will benefit from Rehab placement Chronic kidney disease stage III Cr: 1.7 >>1.17 Follows with nephrology Monitor renal function Hypomagnesemia M.5>1.7 Replace electrolytes as needed Tobacco abuse on nicotine patch. DM II Hb A1c 8.2% continue Insulin Monitor BGs Peripheral neuropathy on gabapentin Hypertension on amlodipine, losartan, metoprolol Also on diuretics Added Clonidine PRN CAD S/P stent Continue aspirin, statin, and metoprolol. Depression Continue Effexor Chronic pain on Suboxone Obstructive sleep apnea Noncompliant with CPAP. Pancytopenia Thrombocytopenia likely from alcoholism Monitor DVT Px SCDs for now Re: Thrombocytopenia Code status: Full code. DISPOSITION: PT/OT prior to discharge Social service to help with discharge planning. Admission and Anticipated Discharge Date Admission Date: December 02, 2020 Subjective Patient is seen and examined at bedside Very drowsy during my encounter this morning BP elevated No significant withdrawal symptoms Has chronic back pain Denies chest pain, dyspnea, dizziness Review of Systems Review of Systems: All systems reviewed & are unremarkable except as noted in Subjective Physical Exam Physical Exam: Physical Exam: Vitals signs as noted above General Appearance:Obese, Moderately built and nourished, no apparent distress Head: normocephalic, Atraumatic Eyes: normal inspection, EOMI Neck: supple, Trachea midline Respiratory/Chest: Normal breath sounds, CTA, No accessory muscle use Cardiovascular: S1, S2, No murmur Abdomen/GI:Soft, Non tender, Bowel sounds present Extremities/Musculoskeletal:normal inspection, Chronic LE edema Neurologic/Psych:AAOX3, grossly no focal neurological deficits, +Tremor Skin: normal color, warm Results & Data Results & Data ([facility]) Vital Signs (Past 12 Hours) Vital Signs Temp Pulse Pulse Resp BP Pulse Ox 12/06/20 10:57 36.5 C 60 20 164/100 H 60 L 12/06/20 08:00 69 12/06/20 07:00 36.8 C 75 18 151/105 H 90 Laboratory Results Short CBC 12/06/20 Range/Units 06:14 WBC 3.90 L (4.8-10.8) K/uL Hgb 12.9 L (14.0-18.0) g/dL Hct 38.9 L (42-52) % Plt Count 115 L (130-400) K/uL [facility] 12/06/20 06:14 Sodium 139 Potassium 4.5 Chloride 103 Carbon Dioxide 33 H BUN 26 H Creatinine 1.17 Glucose 109 H Calcium 9.1
[2020-12-07 07:58] LABS: Hematocrit (blood only) 36.5 % (42-52); Hemoglobin 11.8 g/dL (14.0-18.0); Mean Corpuscular Hemoglobin 30.9 pg (25-34); Mean Corpuscular Hgb Conc 32.3 g/dL (32-36); Mean Corpuscular Volume 95.5 fL (80-100); Mean Platelet Volume 10.3 fL (7.4-10.4); Platelet Count 122 K/uL (130-400); RDW Coefficient of Variation 12.3 % (11.5-14.5); RDW Standard Deviation 42.9 fL (36.4-46.3); Red Blood Count 3.82 M/uL (4.7-6.1); White Blood Count 3.39 K/uL (4.8-10.8)
[2020-12-07 08:37] LABS: BUN Creatinine Ratio 23.1 (10-20); Calcium 8.8 mg/dl (8.5-10.1); Creatinine Clr Calc Pharmacy 70.8 ml/min; Est GFR (African American) 61.4 ml/min; Magnesium 2.1 mg/dl (1.8-2.4); Potassium 4.3 mmol/L (3.5-5.1)
[2020-12-07] MEDS: GABAPENTIN 300 MG CAP PO SCH ×2 (08:48→20:13)
[2020-12-07] MEDS: MAGNESIUM CHLORIDE 64MG DELAYED REL TAB PO SCH ×2 (08:49→20:15)
[2020-12-07] MEDS: LOSARTAN POTASSIUM 50 MG TAB PO SCH (08:49)
[2020-12-07] MEDS: FUROSEMIDE 80 MG TAB PO SCH (08:50)
[2020-12-07] MEDS: NICOTINE 14 MG/24 HR PATCH TD SCH (08:51)
[2020-12-07] MEDS: CYANOCOBALAMIN 500 MCG TABLET (VITAMIN B-12) PO SCH (08:51)
[2020-12-07] MEDS: VENLAFAXINE HCL XR 150 MG CAPXR PO SCH (08:51)
[2020-12-07] MEDS: METOPROLOL SUCC 25MG EXT REL TAB PO SCH (08:52)
[2020-12-07] MEDS: amLODIPine BESYLATE 5 MG TAB PO SCH (08:52)
[2020-12-07] MEDS: MULTIVITAMIN TAB PO SCH (08:53)
[2020-12-07] MEDS: FOLIC ACID 1 MG TAB PO SCH (08:53)
[2020-12-07] MEDS: ATORVASTATIN 40 MG TAB PO SCH (08:53)
[2020-12-07] MEDS: ASPIRIN 81 MG ECTAB PO SCH (08:53)
[2020-12-07] MEDS: CLOTRIMAZOLE 1% CR 15 GM TUBE TOP SCH ×2 (08:55→20:23)
[2020-12-07] MEDS: THIAMINE HCL 100 MG in SYRINGE 9 ML IV SCH (08:56)
[2020-12-07] MEDS: INSULIN DETEMIR FLEXPEN/FLEX TOUCH 100 UNITS/ML 3ML SQ SCH ×2 (08:58→20:20)
[2020-12-07] MEDS: INSULIN ASPART 100 UNITS/ML 3 ML PEN SC SCH ×4 (09:25→20:19)
[2020-12-07] MEDS: BUPRENORPHINE/NALOXONE 8/2 MG TAB SL SCH ×2 (09:37→20:28)
[2020-12-07] MEDS: FOLIC ACID 1 MG in SYRINGE 9.8 ML IV SCH (12:58)
--- NOTE | 2020-12-07 13:43 | Hospitalist Progress Note ---
Date of Service December 07, 2020 Assessment & Plan (1) Alcohol withdrawal syndrome: (2) Pancytopenia: (3) CKD (chronic kidney disease), stage III: Plan: Patient is a 55 yr male who presents with ongoing alcoholism. Alcoholism. Recently discharged from [facility] Rehab Continue Alcohol withdrawal protocol Will complete Librium course today Ativan p.r.n. Continue thiamine and folic acid Counseled to quit drinking Will benefit from Rehab placement - pt is interested in patient, case management aware Chronic kidney disease stage III Cr: 1.7 >>1.17 > 1.5 Follows with nephrology Monitor renal function Hypomagnesemia M.5>1.7 >2 Replace electrolytes as needed Tobacco abuse on nicotine patch. DM II Hb A1c 8.2% continue Insulin Monitor BGs Peripheral neuropathy on gabapentin Hypertension on amlodipine, losartan, metoprolol Also on diuretics Added Clonidine PRN CAD S/P stent Continue aspirin, statin, and metoprolol. Depression Continue Effexor Chronic pain on Suboxone Obstructive sleep apnea Noncompliant with CPAP. Pancytopenia Thrombocytopenia likely from alcoholism Monitor DVT Px: SCDs for now Re: Thrombocytopenia Code status: Full code. DISPOSITION: PT/OT prior to discharge Social service to help with discharge planning. plan for rehab Admission and Anticipated Discharge Date Admission Date: December 02, 2020 Subjective Patient seen in follow-up of alcohol withdrawal currently sitting up in bed in no acute distress, has no complaints besides tremors, + hallucinations denies chest pain shortness of breath abdominal pain, nausea vomiting Discussed rehab, patient says that he just talked to case management, interested in inpatient rehab Review of Systems Review of Systems: All systems reviewed & are unremarkable except as noted in Subjective Physical Exam Physical Exam: GENERAL: obese M, in NAD HEENT: NC/AT, EOMI, PERRL. Oral mucosa moist. NECK: No JVD or neck masses. CARDIOVASCULAR: S1 and S2 heard. Regular rate and rhythm. No murmur, no gallop. RESPIRATORY: Normal AP diameter. No accessory muscle use. No wheezing, no crackles. ABDOMEN: Soft, bowel sounds present, nontender, no distention. NEURO: able to answer simple questions appropriately, speech slow but fluent, no facial asymmetry, moves extremities EXTREMITIES: Mild pedal edema present, no erythema seen. Results & Data Results & Data ([facility]) Vital Signs (Past 12 Hours) Vital Signs Temp Pulse Pulse Resp BP Pulse Ox 12/07/20 12:08 36.9 C 88 20 144/79 H 95 12/07/20 08:23 36.4 C L 72 18 156/104 H 94 12/07/20 08:00 70 12/07/20 03:16 36.6 C 70 20 148/75 H 90 Laboratory Results 12/07/20 12/07/20 12/07/20 Range/Units 11:03 07:40 07:40 WBC 3.39 L (4.8-10.8) K/uL RBC 3.82 L (4.7-6.1) M/uL Hgb 11.8 L (14.0-18.0) g/dL Hct 36.5 L (42-52) % MCV 95.5 (80-100) fL MCH 30.9 (25-34) pg MCHC 32.3 (32-36) g/dL RDW Std Deviation 42.9 (36.4-46.3) fL RDW Coeff of Alberto 12.3 (11.5-14.5) % Plt Count 122 L (130-400) K/uL MPV 10.3 (7.4-10.4) fL Sodium 141 (136-145) mmol/L Potassium 4.3 (3.5-5.1) mmol/L Chloride 103 (98-107) mmol/L Carbon Dioxide 32 (21-32) mmol/L Anion Gap 6.0 (3-11) BUN 34 H (7-18) mg/dl Creatinine 1.46 H (0.6-1.4) mg/dl Est Cr Clr Drug Dosing 70.8 ml/min Est GFR ( Amer) 61.4 ml/min Est GFR (Non-Af Amer) 53.0 ml/min BUN/Creatinine Ratio 23.1 H (10-20) Glucose 131 H (70-99) mg/dl POC Glucose 207 H (70-99) mg/dl Calcium 8.8 (8.5-10.1) mg/dl Magnesium 2.1 (1.8-2.4) mg/dl 12/07/20 12/06/20 12/06/20 Range/Units 07:21 22:48 19:48 WBC (4.8-10.8) K/uL RBC (4.7-6.1) M/uL Hgb (14.0-18.0) g/dL Hct (42-52) % MCV (80-100) fL MCH (25-34) pg MCHC (32-36) g/dL RDW Std Deviation (36.4-46.3) fL RDW Coeff of Alberto (11.5-14.5) % Plt Count (130-400) K/uL MPV (7.4-10.4) fL Sodium (136-145) mmol/L Potassium (3.5-5.1) mmol/L Chloride (98-107) mmol/L Carbon Dioxide (21-32) mmol/L Anion Gap (3-11) BUN (7-18) mg/dl Creatinine (0.6-1.4) mg/dl Est Cr Clr Drug Dosing ml/min Est GFR ( Amer) ml/min Est GFR (Non-Af Amer) ml/min BUN/Creatinine Ratio (10-20) Glucose (70-99) mg/dl POC Glucose 135 H 110 H 84 (70-99) mg/dl Calcium (8.5-10.1) mg/dl Magnesium (1.8-2.4) mg/dl 12/06/20 Range/Units 16:11 WBC (4.8-10.8) K/uL RBC (4.7-6.1) M/uL Hgb (14.0-18.0) g/dL Hct (42-52) % MCV (80-100) fL MCH (25-34) pg MCHC (32-36) g/dL RDW Std Deviation (36.4-46.3) fL RDW Coeff of Alberto (11.5-14.5) % Plt Count (130-400) K/uL MPV (7.4-10.4) fL Sodium (136-145) mmol/L Potassium (3.5-5.1) mmol/L Chloride (98-107) mmol/L Carbon Dioxide (21-32) mmol/L Anion Gap (3-11) BUN (7-18) mg/dl Creatinine (0.6-1.4) mg/dl Est Cr Clr Drug Dosing ml/min Est GFR ( Amer) ml/min Est GFR (Non-Af Amer) ml/min BUN/Creatinine Ratio (10-20) Glucose (70-99) mg/dl POC Glucose 75 (70-99) mg/dl Calcium (8.5-10.1) mg/dl Magnesium (1.8-2.4) mg/dl Medications Administered Current Inpatient Medications Acetaminophen (Acetaminophen 325 Mg Tab) 650 mg PO Q4H PRN PRN Reason: Pain or Fever Stop: 01/01/21 22:33 Last Admin: 12/06/20 06:11 Dose: 650 mg Documented by: Albuterol (Albuterol 0.083% Nebu Soln 3 Ml Vial) 2.5 mg INH QIDR PRN PRN Reason: Shortness Of Breath Or Wheezing Stop: 01/01/21 22:33 Amlodipine Besylate (Amlodipine Besylate 5 Mg Tab) 5 mg PO QAM [facility] Stop: 01/02/21 08:59 Last Admin: 12/07/20 08:52 Dose: 5 mg Documented by: Aspirin (Aspirin 81 Mg Ectab) 81 mg PO QAM [facility] Stop: 01/02/21 08:59 Last Admin: 12/07/20 08:53 Dose: 81 mg Documented by: Atorvastatin Calcium (Atorvastatin 40 Mg Tab) 80 mg PO DAILY [facility] Stop: 01/02/21 08:59 Last Admin: 12/07/20 08:53 Dose: 80 mg Documented by: Buprenorphine/Naloxone (Buprenorphine/Naloxone 8/2 Mg Tab) 1 tab SL BID [facility] Stop: 01/02/21 08:59 Last Admin: 12/07/20 09:37 Dose: 1 tab Documented by: Clonidine HCl (Clonidine Hcl 0.1 Mg Tab) 0.1 mg PO Q8H PRN PRN Reason: Hypertension Stop: 01/05/21 07:30 Clotrimazole (Clotrimazole 1% Cr 15 Gm Tube) 1 appln TOP BID [facility] Stop: 01/02/21 08:59 Last Admin: 12/07/20 08:55 Dose: 1 appln Documented by: Cyanocobalamin (Cyanocobalamin 500 Mcg Tablet (Vitamin B-12)) 1,000 mcg PO DAILY [facility] Stop: 01/02/21 08:59 Last Admin: 12/07/20 08:51 Dose: 1,000 mcg Documented by: Dextrose (Dextrose 50% 50 Ml Syringe) 25 - 50 ml IV UD PRN; Protocol PRN Reason: Hypoglycemia Protocol Stop: 01/01/21 23:29 Folic Acid (Folic Acid 1 Mg Tab) 1 mg PO QAM [facility] Stop: 01/02/21 08:59 Last Admin: 12/07/20 08:53 Dose: 1 mg Documented by: Furosemide (Furosemide 80 Mg Tab) 80 mg PO QAM [facility] Stop: 01/02/21 08:59 Last Admin: 12/07/20 08:50 Dose: 80 mg Documented by: Gabapentin (Gabapentin 300 Mg Cap) 300 mg PO BID [facility] Stop: 01/02/21 08:59 Last Admin: 12/07/20 08:48 Dose: 300 mg Documented by: Glucagon (Glucagon For Inj 1 Mg Vial) 1 mg IM UD PRN; Protocol PRN Reason: Hypoglycemia Protocol Stop: 01/01/21 23:29 Glucose (Glucose 40% Gel 15 Gm Tube) 15 - 30 gm PO UD PRN; Protocol PRN Reason: Hypoglycemia Protocol Stop: 01/01/21 23:29 Glucose (Glucose 10 Tabs/Tube) 4 - 8 tabs PO UD PRN; Protocol PRN Reason: Hypoglycemia Protocol Stop: 01/01/21 23:29 Thiamine HCl 100 mg/ Syringe 10 mls @ 2 mls/min IV QAM [facility] Stop: 01/01/21 23:29 Last Admin: 12/07/20 08:56 Dose: 2 mls/min Documented by: Insulin Aspart (Insulin Aspart 100 Units/Ml 3 Ml Pen) 0 units SC ACHS [facility] Stop: 01/01/21 23:29 Last Admin: 12/07/20 12:37 Dose: 4 units Documented by: Insulin Detemir (Insulin Detemir Flexpen/Flex Touch 100 Units/Ml 3ml) 45 units SQ QAM [facility] Stop: 01/03/21 08:59 Last Admin: 12/07/20 08:58 Dose: 45 units Documented by: Insulin Detemir (Insulin Detemir Flexpen/Flex Touch 100 Units/Ml 3ml) 12 units SQ HS [facility] Stop: 01/04/21 20:59 Last Admin: 12/06/20 20:37 Dose: Not Given Documented by: Lorazepam (Lorazepam 1 Mg Tab) 1 - 3 mg PO UD PRN; Protocol PRN Reason: EtoH Withdrawal AWSS 6-10+ Stop: 01/05/21 12:20 Losartan Potassium (Losartan Potassium 50 Mg Tab) 50 mg PO QAM [facility] Stop: 01/02/21 08:59 Last Admin: 12/07/20 08:49 Dose: 50 mg Documented by: Magnesium Chloride (Magnesium Chloride 64mg Delayed Rel Tab) 64 mg PO BID [facility] Stop: 01/04/21 08:59 Last Admin: 12/07/20 08:49 Dose: 64 mg Documented by: Metoprolol Succinate (Metoprolol Succ 25mg Ext Rel Tab) 75 mg PO QAM [facility] Stop: 01/02/21 08:59 Last Admin: 12/07/20 08:52 Dose: 75 mg Documented by: Miscellaneous (Remove Nicoderm Patch) 1 ea N/A DAILY@0859 [facility] Stop: 01/02/21 08:58 Last Admin: 12/07/20 08:54 Dose: 1 ea Documented by: Shilacellaneous (Carbohydrates For Hypoglycemia ) 15 - 30 gm PO UD PRN PRN Reason: Hypoglycemia Treatment Stop: 01/01/21 23:29 Last Admin: 12/04/20 11:34 Dose: 15 gm Documented by: Jade Information (Pharmacy Glycemic Mgmt Consult) 1 ea N/A UD PRN PRN Reason: Consult Stop: 01/02/21 11:49 Multivitamins (Multivitamin Tab) 1 tab PO DAILY [facility] Stop: 01/02/21 08:59 Last Admin: 12/07/20 08:53 Dose: 1 tab Documented by: Naloxone HCl (Naloxone Hcl 0.4 Mg/1 Ml Vial/Carp) 0.4 mg IV DAILY PRN PRN Reason: OVERSEDATION Stop: 01/01/21 22:33 Nicotine (Nicotine 14 Mg/24 Hr Patch) [address] [facility] Stop: 01/01/21 14:44 Last Admin: 12/07/20 08:51 Dose: 14 mg Documented by: Nitroglycerin (Nitroglycerin Sl 0.4 Mg/Tab Tab) 0.4 mg SL UD PRN PRN Reason: Chest Pain Stop: 01/01/21 22:33 Ondansetron HCl (Ondansetron Inj 2 Mg/Ml 2 Ml Vial) 4 mg IV Q6H PRN PRN Reason: Nausea Stop: 01/01/21 22:33 Polyethylene Glycol (Polyethylene (Miralax) 17 Gm Pack) 17 gm PO DAILY PRN PRN Reason: Constipation Stop: 10/15/21 22:33 Venlafaxine HCl (Venlafaxine Hcl Xr 150 Mg Capxr) 150 mg PO QAM [facility] Stop: 01/02/21 08:59 Last Admin: 12/07/20 08:51 Dose: 150 mg Documented by:
[2020-12-08] MEDS: METOPROLOL SUCC 25MG EXT REL TAB PO SCH (07:57)
[2020-12-08] MEDS: FOLIC ACID 1 MG TAB PO SCH (07:57)
[2020-12-08] MEDS: ATORVASTATIN 40 MG TAB PO SCH (07:57)
[2020-12-08] MEDS: BUPRENORPHINE/NALOXONE 8/2 MG TAB SL SCH ×2 (07:57→20:18)
[2020-12-08] MEDS: CLOTRIMAZOLE 1% CR 15 GM TUBE TOP SCH ×2 (07:58→20:16)
[2020-12-08] MEDS: amLODIPine BESYLATE 5 MG TAB PO SCH (07:58)
[2020-12-08] MEDS: CYANOCOBALAMIN 500 MCG TABLET (VITAMIN B-12) PO SCH (07:58)
[2020-12-08] MEDS: ASPIRIN 81 MG ECTAB PO SCH (07:58)
[2020-12-08] MEDS: FUROSEMIDE 80 MG TAB PO SCH (07:58)
[2020-12-08] MEDS: LOSARTAN POTASSIUM 50 MG TAB PO SCH (07:58)
[2020-12-08] MEDS: GABAPENTIN 300 MG CAP PO SCH ×2 (07:58→20:14)
[2020-12-08] MEDS: MAGNESIUM CHLORIDE 64MG DELAYED REL TAB PO SCH ×2 (07:58→20:13)
[2020-12-08] MEDS: MULTIVITAMIN TAB PO SCH (07:58)
[2020-12-08] MEDS: NICOTINE 14 MG/24 HR PATCH TD SCH (08:00)
[2020-12-08 08:09] LABS: BUN Creatinine Ratio 27.2 (10-20); Calcium 9.2 mg/dl (8.5-10.1); Creatinine Clr Calc Pharmacy 65.5 ml/min; Est GFR (African American) 57.2 ml/min; Est GFR (Non-African American) 49.3 ml/min; Magnesium 2.2 mg/dl (1.8-2.4); Potassium 4.6 mmol/L (3.5-5.1)
[2020-12-08] MEDS: INSULIN DETEMIR FLEXPEN/FLEX TOUCH 100 UNITS/ML 3ML SQ SCH ×2 (08:45→20:26)
[2020-12-08] MEDS: INSULIN ASPART 100 UNITS/ML 3 ML PEN SC SCH ×4 (08:45→20:24)
[2020-12-08] MEDS: THIAMINE HCL 100 MG in SYRINGE 9 ML IV SCH (08:46)
[2020-12-08] MEDS: VENLAFAXINE HCL XR 150 MG CAPXR PO SCH (08:46)
--- NOTE | 2020-12-08 10:56 | Pharmacy Report ---
Pharmacy Glycemic Short Note 2 - Date of Service December 08, 2020 - Glycemic Short BSG Results (Last 24 hours): 12/07/20 12/07/20 12/07/20 11:03 16:17 20:16 Glucose POC Glucose 207 H 183 H 121 H 12/08/20 12/08/20 06:51 07:30 Glucose 241 H POC Glucose 251 H OUTPATIENT ANTIDIABETIC REGIMEN: * Levemir 45 units SQ HS, Novolog SS * Prescribed Ozempic - pt reports not taking * A1c = 8.2% (12/03/20) ASSESSMENT: 12/08/20: * Patient's BSGs have been fairly labile, but reasonable. * Fasting BSG was elevated this morning, but has been within or below goal past couple of days. * No change in basal insulin at this time. If this becomes a trend, will provide additional basal insulin. * Consider providing additional carb coverage, however patient's BSGs dropped below goal recently with current parameters. 12/06 * BSGs improving with increase in PM basal insulin dose * Post-prandial BSGs elevated when previous BSG in goal range- indicates that more CHO coverage needed. Will loosen CF while tightening CR to prevent significant drop in BSGs when BSG is elevated pre-meal. 12/03 * Dewayne is a 55 yo T2DM admitted for alcohol abuse and request for detox * He is know to the glycemic service from previous admissions * He had severe hyperglycemia on admission followed by 24 hours of BSGs below goal after receiving two doses of Levemir 45 units and a large dose of 15 units of Novolog on 12/02 pm * Fasting significantly elevated today. Will add bedtime dose of Levemir (pt has required BID dosing in the past due to levemir not lasting 24 hours). * Novolog loosened after patient had yet another hypoglycemic episode at lunch (BSG = 59 mg/dL) PLAN FOR INPATIENT GLYCEMIC CONTROL: * Hold outpatient oral diabetes medications * Basal insulin * Levemir 45 units SQ qAM * Levemir 12 units SQ qPM * Bolus insulin * NovoLog per scale ACHS or Q6hrs while NPO * Goal Range: Low 110 mg/dL - High 159 mg/dL * Correction Factor: 40 mg/dL/unit (loosen) * Nutritional / Prandial insulin per carb ratio of 1 unit per 8 grams CHO consumed (tighten) PLAN FOR DISCHARGE: * TBD
--- NOTE | 2020-12-08 13:48 | Hospitalist Progress Note ---
Date of Service December 08, 2020 Assessment & Plan (1) Alcohol withdrawal syndrome: (2) Pancytopenia: (3) CKD (chronic kidney disease), stage III: Plan: Patient is a 55 yr male who presents with ongoing alcoholism. Alcoholism. Recently discharged from [facility]hab Continue Alcohol withdrawal protocol Completed Librium course Ativan p.r.n. Continue thiamine and folic acid Counseled to quit drinking Will benefit from Rehab placement - pt is interested in patient, case management aware Chronic kidney disease stage III Cr: 1.7 >>1.17 > 1.5 Follows with nephrology Monitor renal function Hypomagnesemia M.5>1.7 >2 Replace electrolytes as needed Tobacco abuse on nicotine patch. DM II Hb A1c 8.2% continue Insulin Monitor BGs Peripheral neuropathy on gabapentin Hypertension on amlodipine, losartan, metoprolol Also on diuretics Added Clonidine PRN CAD S/P stent Continue aspirin, statin, and metoprolol. Depression Continue Effexor Chronic pain on Suboxone Obstructive sleep apnea Noncompliant with CPAP. Pancytopenia Thrombocytopenia likely from alcoholism Monitor DVT Px: SCDs for now Re: Thrombocytopenia Code status: Full code. DISPOSITION: PT/OT prior to discharge Social service to help with discharge planning. plan for rehab Admission and Anticipated Discharge Date Admission Date: December 02, 2020 Subjective Patient seen in follow-up of alcohol withdrawal Currently sitting up in bed in no acute distress, Has no complaints besides mild tremors, + hallucinations Denies chest pain shortness of breath abdominal pain, nausea vomiting Discussed rehab, patient says that he just talked to case management, interested in inpatient rehab Seen ambulating in [place] Review of Systems Review of Systems: All systems reviewed & are unremarkable except as noted in Subjective Physical Exam Physical Exam: GENERAL: obese M, in NAD HEENT: NC/AT, EOMI, PERRL. Oral mucosa moist. NECK: No JVD or neck masses. CARDIOVASCULAR: S1 and S2 heard. Regular rate and rhythm. No murmur, no gallop. RESPIRATORY: Normal AP diameter. No accessory muscle use. No wheezing, no crackles. ABDOMEN: Soft, bowel sounds present, nontender, no distention. NEURO: able to answer simple questions appropriately, speech slow but fluent, no facial asymmetry, moves extremities EXTREMITIES: Mild pedal edema present, no erythema seen. Results & Data Results & Data ([facility]) Vital Signs (Past 12 Hours) Vital Signs Temp Pulse Pulse Resp BP Pulse Ox 12/08/20 12:15 36.8 C 76 20 146/72 H 96 12/08/20 08:00 36.8 C 64 70 20 156/82 H 94 Laboratory Results 12/08/20 12/08/20 12/08/20 Range/Units 11:29 07:30 06:51 Sodium 138 (136-145) mmol/L Potassium 4.6 (3.5-5.1) mmol/L Chloride 101 (98-107) mmol/L Carbon Dioxide 32 (21-32) mmol/L Anion Gap 5.0 (3-11) BUN 42 H (7-18) mg/dl Creatinine 1.55 H (0.6-1.4) mg/dl Est Cr Clr Drug Dosing 65.5 ml/min Est GFR ( Amer) 57.2 ml/min Est GFR (Non-Af Amer) 49.3 ml/min BUN/Creatinine Ratio 27.2 H (10-20) Glucose 241 H (70-99) mg/dl POC Glucose 211 H 251 H (70-99) mg/dl Calcium 9.2 (8.5-10.1) mg/dl Magnesium 2.2 (1.8-2.4) mg/dl 12/07/20 12/07/20 Range/Units 20:16 16:17 Sodium (136-145) mmol/L Potassium (3.5-5.1) mmol/L Chloride (98-107) mmol/L Carbon Dioxide (21-32) mmol/L Anion Gap (3-11) BUN (7-18) mg/dl Creatinine (0.6-1.4) mg/dl Est Cr Clr Drug Dosing ml/min Est GFR ( Amer) ml/min Est GFR (Non-Af Amer) ml/min BUN/Creatinine Ratio (10-20) Glucose (70-99) mg/dl POC Glucose 121 H 183 H (70-99) mg/dl Calcium (8.5-10.1) mg/dl Magnesium (1.8-2.4) mg/dl Medications Administered Current Inpatient Medications Acetaminophen (Acetaminophen 325 Mg Tab) 650 mg PO Q4H PRN PRN Reason: Pain or Fever Stop: 01/01/21 22:33 Last Admin: 12/06/20 06:11 Dose: 650 mg Documented by: Albuterol (Albuterol 0.083% Nebu Soln 3 Ml Vial) 2.5 mg INH QIDR PRN PRN Reason: Shortness Of Breath Or Wheezing Stop: 01/01/21 22:33 Amlodipine Besylate (Amlodipine Besylate 5 Mg Tab) 5 mg PO QAM [facility] Stop: 01/02/21 08:59 Last Admin: 12/08/20 07:58 Dose: 5 mg Documented by: Aspirin (Aspirin 81 Mg Ectab) 81 mg PO QAM [facility] Stop: 01/02/21 08:59 Last Admin: 12/08/20 07:58 Dose: 81 mg Documented by: Atorvastatin Calcium (Atorvastatin 40 Mg Tab) 80 mg PO DAILY [facility] Stop: 01/02/21 08:59 Last Admin: 12/08/20 07:57 Dose: 80 mg Documented by: Buprenorphine/Naloxone (Buprenorphine/Naloxone 8/2 Mg Tab) 1 tab SL BID [facility] Stop: 01/02/21 08:59 Last Admin: 12/08/20 07:57 Dose: 1 tab Documented by: Clonidine HCl (Clonidine Hcl 0.1 Mg Tab) 0.1 mg PO Q8H PRN PRN Reason: Hypertension Stop: 01/05/21 07:30 Clotrimazole (Clotrimazole 1% Cr 15 Gm Tube) 1 appln TOP BID [facility] Stop: 01/02/21 08:59 Last Admin: 12/08/20 07:58 Dose: 1 appln Documented by: Cyanocobalamin (Cyanocobalamin 500 Mcg Tablet (Vitamin B-12)) 1,000 mcg PO DAILY [facility] Stop: 01/02/21 08:59 Last Admin: 12/08/20 07:58 Dose: 1,000 mcg Documented by: Dextrose (Dextrose 50% 50 Ml Syringe) 25 - 50 ml IV UD PRN; Protocol PRN Reason: Hypoglycemia Protocol Stop: 01/01/21 23:29 Folic Acid (Folic Acid 1 Mg Tab) 1 mg PO QAM [facility] Stop: 01/02/21 08:59 Last Admin: 12/08/20 07:57 Dose: 1 mg Documented by: Furosemide (Furosemide 80 Mg Tab) 80 mg PO QAM [facility] Stop: 01/02/21 08:59 Last Admin: 12/08/20 07:58 Dose: 80 mg Documented by: Gabapentin (Gabapentin 300 Mg Cap) 300 mg PO BID [facility] Stop: 01/02/21 08:59 Last Admin: 12/08/20 07:58 Dose: 300 mg Documented by: Glucagon (Glucagon For Inj 1 Mg Vial) 1 mg IM UD PRN; Protocol PRN Reason: Hypoglycemia Protocol Stop: 01/01/21 23:29 Glucose (Glucose 40% Gel 15 Gm Tube) 15 - 30 gm PO UD PRN; Protocol PRN Reason: Hypoglycemia Protocol Stop: 01/01/21 23:29 Glucose (Glucose 10 Tabs/Tube) 4 - 8 tabs PO UD PRN; Protocol PRN Reason: Hypoglycemia Protocol Stop: 01/01/21 23:29 Thiamine HCl 100 mg/ Syringe 10 mls @ 2 mls/min IV QAM [facility] Stop: 01/01/21 23:29 Last Admin: 12/08/20 08:46 Dose: Not Given Documented by: Insulin Aspart (Insulin Aspart 100 Units/Ml 3 Ml Pen) 0 units SC ACHS [facility] Stop: 01/01/21 23:29 Last Admin: 12/08/20 12:27 Dose: 8 units Documented by: Insulin Detemir (Insulin Detemir Flexpen/Flex Touch 100 Units/Ml 3ml) 45 units SQ QAM [facility] Stop: 01/03/21 08:59 Last Admin: 12/08/20 08:45 Dose: 45 units Documented by: Insulin Detemir (Insulin Detemir Flexpen/Flex Touch 100 Units/Ml 3ml) 12 units SQ HS [facility] Stop: 01/04/21 20:59 Last Admin: 12/07/20 20:20 Dose: 12 units Documented by: Lorazepam (Lorazepam 1 Mg Tab) 1 - 3 mg PO UD PRN; Protocol PRN Reason: EtoH Withdrawal AWSS 6-10+ Stop: 01/05/21 12:20 Losartan Potassium (Losartan Potassium 50 Mg Tab) 50 mg PO QAM [facility] Stop: 01/02/21 08:59 Last Admin: 12/08/20 07:58 Dose: 50 mg Documented by: Magnesium Chloride (Magnesium Chloride 64mg Delayed Rel Tab) 64 mg PO BID [facility] Stop: 01/04/21 08:59 Last Admin: 12/08/20 07:58 Dose: 64 mg Documented by: Metoprolol Succinate (Metoprolol Succ 25mg Ext Rel Tab) 75 mg PO QAM [facility] Stop: 01/02/21 08:59 Last Admin: 12/08/20 07:57 Dose: 75 mg Documented by: Miscellaneous (Remove Nicoderm Patch) 1 ea N/A DAILY@0859 [facility] Stop: 01/02/21 08:58 Last Admin: 12/08/20 07:59 Dose: 1 ea Documented by: Miscellaneous (Carbohydrates For Hypoglycemia ) 15 - 30 gm PO UD PRN PRN Reason: Hypoglycemia Treatment Stop: 01/01/21 23:29 Last Admin: 12/04/20 11:34 Dose: 15 gm Documented by: Shilacellaneous Information (Pharmacy Glycemic Mgmt Consult) 1 ea N/A UD PRN PRN Reason: Consult Stop: 01/02/21 11:49 Multivitamins (Multivitamin Tab) 1 tab PO DAILY [facility] Stop: 01/02/21 08:59 Last Admin: 12/08/20 07:58 Dose: 1 tab Documented by: Naloxone HCl (Naloxone Hcl 0.4 Mg/1 Ml Vial/Carp) 0.4 mg IV DAILY PRN PRN Reason: OVERSEDATION Stop: 01/01/21 22:33 Nicotine (Nicotine 14 Mg/24 Hr Patch) 14 mg TD [facility] Stop: 01/01/21 14:44 Last Admin: 12/08/20 08:00 Dose: 14 mg Documented by: Nitroglycerin (Nitroglycerin Sl 0.4 Mg/Tab Tab) 0.4 mg SL UD PRN PRN Reason: Chest Pain Stop: 01/01/21 22:33 Ondansetron HCl (Ondansetron Inj 2 Mg/Ml 2 Ml Vial) 4 mg IV Q6H PRN PRN Reason: Nausea Stop: 01/01/21 22:33 Polyethylene Glycol (Polyethylene (Miralax) 17 Gm Pack) 17 gm PO DAILY PRN PRN Reason: Constipation Stop: 01/01/21 22:33 Venlafaxine HCl (Venlafaxine Hcl Xr 150 Mg Capxr) 150 mg PO QAM [facility] Stop: 01/02/21 08:59 Last Admin: 12/08/20 08:46 Dose: 150 mg Documented by:
[2020-12-09 06:10] LABS: Hematocrit (blood only) 35.9 % (42-52); Hemoglobin 11.7 g/dL (14.0-18.0); Mean Corpuscular Hemoglobin 30.9 pg (25-34); Mean Corpuscular Hgb Conc 32.6 g/dL (32-36); Mean Corpuscular Volume 94.7 fL (80-100); Platelet Count 154 K/uL (130-400); RDW Coefficient of Variation 12.3 % (11.5-14.5); RDW Standard Deviation 42.4 fL (36.4-46.3); Red Blood Count 3.79 M/uL (4.7-6.1); White Blood Count 3.72 K/uL (4.8-10.8)
[2020-12-09 06:48] LABS: BUN Creatinine Ratio 29.6 (10-20); Calcium 9.1 mg/dl (8.5-10.1); Creatinine Clr Calc Pharmacy 70.4 ml/min; Est GFR (African American) 62.5 ml/min; Est GFR (Non-African American) 53.9 ml/min; Magnesium 1.9 mg/dl (1.8-2.4); Potassium 4.3 mmol/L (3.5-5.1)
[2020-12-09] MEDS: LOSARTAN POTASSIUM 50 MG TAB PO SCH (08:53)
[2020-12-09] MEDS: INSULIN ASPART 100 UNITS/ML 3 ML PEN SC SCH ×4 (08:53→21:50)
[2020-12-09] MEDS: VENLAFAXINE HCL XR 150 MG CAPXR PO SCH (08:59)
[2020-12-09] MEDS: amLODIPine BESYLATE 5 MG TAB PO SCH (08:59)
[2020-12-09] MEDS: MAGNESIUM CHLORIDE 64MG DELAYED REL TAB PO SCH ×2 (09:00→21:48)
[2020-12-09] MEDS: METOPROLOL SUCC 25MG EXT REL TAB PO SCH (09:00)
[2020-12-09] MEDS: FOLIC ACID 1 MG TAB PO SCH (09:00)
[2020-12-09] MEDS: MULTIVITAMIN TAB PO SCH (09:00)
[2020-12-09] MEDS: THIAMINE HCL 100 MG in SYRINGE 9 ML IV SCH (09:00)
[2020-12-09] MEDS: ATORVASTATIN 40 MG TAB PO SCH (09:01)
[2020-12-09] MEDS: ASPIRIN 81 MG ECTAB PO SCH (09:01)
[2020-12-09] MEDS: CYANOCOBALAMIN 500 MCG TABLET (VITAMIN B-12) PO SCH (09:01)
[2020-12-09] MEDS: FUROSEMIDE 80 MG TAB PO SCH (09:01)
[2020-12-09] MEDS: INSULIN DETEMIR FLEXPEN/FLEX TOUCH 100 UNITS/ML 3ML SQ SCH ×2 (09:02→21:51)
[2020-12-09] MEDS: NICOTINE 14 MG/24 HR PATCH TD SCH (09:02)
[2020-12-09] MEDS: CLOTRIMAZOLE 1% CR 15 GM TUBE TOP SCH ×2 (09:02→21:47)
[2020-12-09] MEDS: GABAPENTIN 300 MG CAP PO SCH ×2 (09:04→21:47)
[2020-12-09] MEDS: BUPRENORPHINE/NALOXONE 8/2 MG TAB SL SCH ×2 (09:14→21:46)
--- NOTE | 2020-12-09 13:59 | Hospitalist Progress Note ---
Date of Service December 09, 2020 Assessment & Plan (1) Alcohol withdrawal syndrome: (2) Pancytopenia: (3) CKD (chronic kidney disease), stage III: Plan: Patient is a 55 yr male who presents with ongoing alcoholism. Alcoholism. Recently discharged from [facility] Continue Alcohol withdrawal protocol Completed Librium course Ativan p.r.n. Continue thiamine and folic acid Counseled to quit drinking Care management is working on placement. Awaiting insurance approval. Chronic kidney disease stage III Cr: 1.7 >>1.17 > 1.5 > 1.4 Follows with nephrology Monitor renal function Hypomagnesemia M.5>1.7 >2>1.9 Replace electrolytes as needed Tobacco abuse on nicotine patch. DM II Hb A1c 8.2% continue Insulin Monitor BGs Peripheral neuropathy on gabapentin Hypertension on amlodipine, losartan, metoprolol Also on diuretics Added Clonidine PRN CAD S/P stent Continue aspirin, statin, and metoprolol. Depression Continue Effexor Chronic pain on Suboxone Obstructive sleep apnea Noncompliant with CPAP. Pancytopenia - improving Thrombocytopenia - imroving likely from alcoholism Monitor DVT Px: SCDs for now Re: Thrombocytopenia Code status: Full code. DISPOSITION: PT/OT prior to discharge awating insurance approval Admission and Anticipated Discharge Date Admission Date: December 02, 2020 Subjective Patient is awake and alert. Oriented x3 does complain of worsening chronic back pain. Denies any chest pain, shortness of breath, abdominal pain, diarrhea or dysuria. Other review of system is negative. Review of Systems Review of Systems: All systems reviewed & are unremarkable except as noted in HPI & below Physical Exam Physical Exam: General: A&Ox3 HENT: NCAT, MMM, EOMI Eyes: PERRLA Neck: Supple, normal range of motion CVS: normal rate and rhythm Resp: b/l good breath sounds Abdomen: Soft, ND/NT, +BS Extremities: No c/c/e Neuro: face symmetric, no focal deficit appreciated Skin: warm and dry, no rashes/lesions/errythema MSK: normal ROM, no joint swelling/erythema Results & Data Results & Data ([facility]) Vital Signs (Past 12 Hours) Vital Signs Temp Pulse Pulse Resp BP Pulse Ox 12/09/20 11:22 36.3 C L 71 19 153/89 H 93 12/09/20 08:00 61 12/09/20 07:02 36.5 C 61 19 125/85 94 12/09/20 04:00 36.4 C L 65 16 125/84 94
[2020-12-10] MEDS: INSULIN ASPART 100 UNITS/ML 3 ML PEN SC SCH ×4 (08:04→20:37)
[2020-12-10] MEDS: INSULIN DETEMIR FLEXPEN/FLEX TOUCH 100 UNITS/ML 3ML SQ SCH ×2 (08:08→20:36)
[2020-12-10] MEDS: MAGNESIUM CHLORIDE 64MG DELAYED REL TAB PO SCH ×2 (08:49→20:35)
[2020-12-10] MEDS: THIAMINE HCL 100 MG in SYRINGE 9 ML IV SCH (08:49)
[2020-12-10] MEDS: LOSARTAN POTASSIUM 50 MG TAB PO SCH (08:49)
[2020-12-10] MEDS: FOLIC ACID 1 MG TAB PO SCH (08:49)
[2020-12-10] MEDS: ASPIRIN 81 MG ECTAB PO SCH (08:50)
[2020-12-10] MEDS: METOPROLOL SUCC 25MG EXT REL TAB PO SCH (08:50)
[2020-12-10] MEDS: GABAPENTIN 300 MG CAP PO SCH ×2 (08:50→20:35)
[2020-12-10] MEDS: CYANOCOBALAMIN 500 MCG TABLET (VITAMIN B-12) PO SCH (08:50)
[2020-12-10] MEDS: VENLAFAXINE HCL XR 150 MG CAPXR PO SCH (08:50)
[2020-12-10] MEDS: amLODIPine BESYLATE 5 MG TAB PO SCH (08:51)
[2020-12-10] MEDS: FUROSEMIDE 80 MG TAB PO SCH (08:51)
[2020-12-10] MEDS: MULTIVITAMIN TAB PO SCH (08:51)
[2020-12-10] MEDS: ATORVASTATIN 40 MG TAB PO SCH (08:51)
[2020-12-10] MEDS: CLOTRIMAZOLE 1% CR 15 GM TUBE TOP SCH ×2 (08:52→20:34)
[2020-12-10] MEDS: NICOTINE 14 MG/24 HR PATCH TD SCH (08:56)
[2020-12-10] MEDS: BUPRENORPHINE/NALOXONE 8/2 MG TAB SL SCH ×2 (08:59→20:41)
--- NOTE | 2020-12-10 09:53 | Pharmacy Report ---
Pharmacy Glycemic Short Note 2 - Date of Service December 10, 2020 - Glycemic Short BSG Results (Last 24 hours): 12/09/20 12/09/20 12/09/20 11:12 15:58 20:15 POC Glucose 239 H 178 H 176 H 12/10/20 07:10 POC Glucose 250 H OUTPATIENT ANTIDIABETIC REGIMEN: * Levemir 45 units SQ HS, Novolog SS * Prescribed Ozempic - pt reports not taking * A1c = 8.2% (12/03/20) ASSESSMENT: 12/10: * BSGs yesterday of 170, 239, 178, and 176 mg/dL * Received 91 units of insulin (57 units of Levemir and 34 units of Novolog) * Novolog parameters tightened yesterday, will further tighten today * Fasting BSG of 250 mg/dL, will utilize Lantus scale at HS to provide increase dose this evening 12/08: * Patient's BSGs have been fairly labile, but reasonable. * Fasting BSG was elevated this morning, but has been within or below goal past couple of days. * No change in basal insulin at this time. If this becomes a trend, will provide additional basal insulin. * Consider providing additional carb coverage, however patient's BSGs dropped below goal recently with current parameters. 12/06 * BSGs improving with increase in PM basal insulin dose * Post-prandial BSGs elevated when previous BSG in goal range- indicates that more CHO coverage needed. Will loosen CF while tightening CR to prevent significant drop in BSGs when BSG is elevated pre-meal. 12/03 * Dewayne is a 55 yo T2DM admitted for alcohol abuse and request for detox * He is know to the glycemic service from previous admissions * He had severe hyperglycemia on admission followed by 24 hours of BSGs below goal after receiving two doses of Levemir 45 units and a large dose of 15 units of Novolog on 12/02 pm * Fasting significantly elevated today. Will add bedtime dose of Levemir (pt has required BID dosing in the past due to levemir not lasting 24 hours). * Novolog loosened after patient had yet another hypoglycemic episode at lunch (BSG = 59 mg/dL) PLAN FOR INPATIENT GLYCEMIC CONTROL: * Hold outpatient oral diabetes medications * Basal insulin * Levemir 45 units SQ qAM * Levemir 12-25 units SC HS (see EHR for details) * Bolus insulin * NovoLog per scale ACHS or Q6hrs while NPO * Goal Range: Low 100 mg/dL - High 140 mg/dL * Correction Factor: 30 mg/dL/unit * Nutritional / Prandial insulin per carb ratio of 1 unit per 6 grams CHO consumed PLAN FOR DISCHARGE: * Reasonable to continue current outpatient insulin doses on discharge * Patient was reportedly to start Ozempic as an outpatient, but never did * Patient may benefit from this addition, encourage patient to follow-up with outpatient provider in regards to this
--- NOTE | 2020-12-10 11:24 | Hospitalist Progress Note ---
Date of Service December 10, 2020 Assessment & Plan (1) Alcohol withdrawal syndrome: (2) Pancytopenia: (3) CKD (chronic kidney disease), stage III: Plan: Patient is a 55 yr male who presents with ongoing alcoholism. Alcoholism. Recently discharged from Alcohol Rehab Continue Alcohol withdrawal protocol Completed Librium course Ativan p.r.n. Continue thiamine and folic acid Counseled to quit drinking Care management is working on placement. Patient was declined by Karen. Referral sent out to [facility] Chronic kidney disease stage III Cr: 1.7 >>1.17 > 1.5 > 1.4 Follows with nephrology Monitor renal function Hypomagnesemia M.5>1.7 >2>1.9 Replace electrolytes as needed Tobacco abuse on nicotine patch. DM II Hb A1c 8.2% continue Insulin Monitor BGs Peripheral neuropathy on gabapentin Hypertension on amlodipine, losartan, metoprolol Also on diuretics Added Clonidine PRN CAD S/P stent Continue aspirin, statin, and metoprolol. Depression Continue Effexor Chronic pain on Suboxone Obstructive sleep apnea Noncompliant with CPAP. Pancytopenia - improving Thrombocytopenia - imroving likely from alcoholism Monitor DVT Px: SCDs for now Re: Thrombocytopenia Code status: Full code. DISPOSITION: PT/OT prior to discharge awating insurance approval Admission and Anticipated Discharge Date Admission Date: December 02, 2020 Subjective Doing okay this morning. However does report feeling nauseous. Rest of the review of system is negative. Review of Systems Review of Systems: All systems reviewed & are unremarkable except as noted in HPI & below Physical Exam Physical Exam: General: A&Ox3 HENT: NCAT, MMM, EOMI Eyes: PERRLA Neck: Supple, normal range of motion CVS: normal rate and rhythm Resp: b/l good breath sounds Abdomen: Soft, ND/NT, +BS Extremities: No c/c/e Neuro: face symmetric, no focal deficit appreciated Skin: warm and dry, no rashes/lesions/errythema MSK: normal ROM, no joint swelling/erythema Results & Data Results & Data ([facility]) Vital Signs (Past 12 Hours) Vital Signs Temp Pulse Pulse Resp BP BP Pulse Ox 12/10/20 08:00 63 12/10/20 07:32 36.5 C 62 18 119/76 95 12/10/20 03:25 36.4 C L 60 16 158/89 H 91
[2020-12-11] MEDS: MAGNESIUM CHLORIDE 64MG DELAYED REL TAB PO SCH ×2 (07:38→20:27)
[2020-12-11] MEDS: METOPROLOL SUCC 25MG EXT REL TAB PO SCH (07:39)
[2020-12-11] MEDS: amLODIPine BESYLATE 5 MG TAB PO SCH (07:40)
[2020-12-11] MEDS: GABAPENTIN 300 MG CAP PO SCH ×2 (07:40→20:27)
[2020-12-11] MEDS: ATORVASTATIN 40 MG TAB PO SCH (07:40)
[2020-12-11] MEDS: LOSARTAN POTASSIUM 50 MG TAB PO SCH (07:41)
[2020-12-11] MEDS: FUROSEMIDE 80 MG TAB PO SCH (07:41)
[2020-12-11] MEDS: ASPIRIN 81 MG ECTAB PO SCH (07:42)
[2020-12-11] MEDS: VENLAFAXINE HCL XR 150 MG CAPXR PO SCH (07:43)
[2020-12-11] MEDS: CYANOCOBALAMIN 500 MCG TABLET (VITAMIN B-12) PO SCH (07:43)
[2020-12-11] MEDS: MULTIVITAMIN TAB PO SCH (07:44)
[2020-12-11] MEDS: THIAMINE HCL 100 MG TAB PO SCH (07:44)
[2020-12-11] MEDS: FOLIC ACID 1 MG TAB PO SCH (07:44)
[2020-12-11] MEDS: NICOTINE 14 MG/24 HR PATCH TD SCH (07:45)
[2020-12-11] MEDS: INSULIN ASPART 100 UNITS/ML 3 ML PEN SC SCH ×4 (07:50→20:26)
[2020-12-11] MEDS: CLOTRIMAZOLE 1% CR 15 GM TUBE TOP SCH ×2 (07:54→20:28)
[2020-12-11] MEDS: BUPRENORPHINE/NALOXONE 8/2 MG TAB SL SCH ×2 (09:00→20:38)
[2020-12-11] MEDS ORDERED: INSULIN DETEMIR FLEXPEN/FLEX TOUCH 100 UNITS/ML 3ML SQ SCH (09:00)
--- NOTE | 2020-12-11 13:22 | Pharmacy Report ---
Pharmacy Glycemic Short Note 2 - Date of Service December 11, 2020 - Glycemic Short BSG Results (Last 24 hours): 12/10/20 12/10/20 12/10/20 16:16 16:18 20:12 POC Glucose 74 89 117 H 12/11/20 12/11/20 07:11 11:09 POC Glucose 252 H 230 H OUTPATIENT ANTIDIABETIC REGIMEN: * Levemir 45 units SQ HS, Novolog SS * Prescribed Ozempic - pt reports not taking * A1c = 8.2% (12/03/20) ASSESSMENT: 12/11: * Observed trend during this admission and prior ones of low BSGs at dinnertime with elevated fasting BSGs * This trend may possibly be related to increased dose of Levemir in the morning and insufficient ramirez in evening, so will trial lowering morning basal and increase evening basal 12/10: * BSGs yesterday of 170, 239, 178, and 176 mg/dL * Received 91 units of insulin (57 units of Levemir and 34 units of Novolog) * Novolog parameters tightened yesterday, will further tighten today * Fasting BSG of 250 mg/dL, will utilize Lantus scale at HS to provide increase dose this evening 12/03 * Dewayne is a 55 yo T2DM admitted for alcohol abuse and request for detox * He is know to the glycemic service from previous admissions * He had severe hyperglycemia on admission followed by 24 hours of BSGs below goal after receiving two doses of Levemir 45 units and a large dose of 15 units of Novolog on 12/02 pm * Fasting significantly elevated today. Will add bedtime dose of Levemir (pt has required BID dosing in the past due to levemir not lasting 24 hours). * Novolog loosened after patient had yet another hypoglycemic episode at lunch (BSG = 59 mg/dL) PLAN FOR INPATIENT GLYCEMIC CONTROL: * Hold outpatient oral diabetes medications * Basal insulin * Levemir 35 units SQ qAM * Levemir 30-40 units SC HS (see EHR for details) * Bolus insulin * NovoLog per scale ACHS or Q6hrs while NPO * Goal Range: Low 100 mg/dL - High 140 mg/dL * Correction Factor: 30 mg/dL/unit with breakfast, 35 mg/dL/unit with lunch, dinner, HS * Nutritional / Prandial insulin per carb ratio of 1 unit per 6 grams CHO consumed with breakfast, 1 unit per 7 grams CHO consumed with lunch, dinner, HS PLAN FOR DISCHARGE: * Reasonable to continue current outpatient insulin doses on discharge * Patient was reportedly to start Ozempic as an outpatient, but never did * Patient may benefit from this addition, encourage patient to follow-up with outpatient provider in regards to this
--- NOTE | 2020-12-11 17:25 | Hospitalist Progress Note ---
Date of Service December 11, 2020 Assessment & Plan (1) Alcohol abuse: Plan: Failed recent inpatient rehabilitation within 2 weeks of discharge. He is back again to detox and try another rehab program. Case management is facilitating this. (2) Alcohol withdrawal syndrome: Plan: Has been admitted since 12/02 with no evidence of alcohol withdrawal at this point. Will transition off PCU. Continue thiamine and folate daily. (3) Acute kidney injury: Plan: Baseline creatinine is around 1-1.1 currently 1.44. Trend BMP in a.m. (4) Diabetes mellitus type 2 with complications: Plan: Pharmacy managing, currently euglycemic, continue with basal bolus since (5) Tobacco use disorder: Plan: Continue NicoDerm patch (6) Chronic pain syndrome: Plan: Patient continues on Suboxone twice daily per home regimen. (7) Mood disorder: Plan: Continue same per home regimen. (8) CATALINO (obstructive sleep apnea): Plan: Records indicate patient is noncompliant with CPAP (9) HTN (hypertension): Plan: Chronic, controlled with current therapy including Norvasc 5 mg daily, furosemide 80 mg daily, losartan 50 mg daily, Toprol-XL 75 mg daily (10) DVT prophylaxis: Plan: Not on DVT prophylaxis/start heparin Full code Disposition-pending case management ability to get him into inpatient rehab again Sara Morris DO [facility] Hospitalist Admission and Anticipated Discharge Date Admission Date: December 02, 2020 Subjective 55-year-old man with chronic alcohol abuse on Suboxone who presented in order to detox from alcohol. Recently in alcohol rehab therapy and was discharged for 2 weeks with a relapse. He is hemodynamically stable and slightly shaky but this is his baseline. Tolerating p.o. Doing well generally Review of Systems Review of Systems: At least ten systems were reviewed and negative except as indicated in HPI above. Physical Exam Physical Exam: CONSTITUTIONAL: WNWD, vitals as above, generally well- appearing EYES: normal conjunctivae, no scleral icterus ENT: external ear and nose normal, MMM NECK: trachea midline RESPIRATORY: clear to auscultation bilaterally, no crackles, rales or wheezes, normal respiratory effort CARDIOVASCULAR: regular rate and rhythm, S1 and 2 heard without murmurs, gallops or rubs, no JVD, no peripheral edema GASTROINTESTINAL: normal bowel sounds, soft, nontender, ND, no guarding MUSCULOSKELETAL: strength 5/5 throughout, head is normocephalic and atraumatic, neck supple, normal palpation of chest wall without tenderness SKIN: warm and dry NEUROLOGIC: CN 2-12 grossly intact,normal cognition, normal speech, no tremor PSYCHIATRIC: alert cooperative and oriented to person, place and time. Results & Data Results & Data ([facility]) Vital Signs (Past 12 Hours) Vital Signs Temp Pulse Pulse Resp BP BP Pulse Ox 12/11/20 16:16 37.2 C 80 18 120/63 96 12/11/20 12:02 36.4 C L 75 20 113/75 91 12/11/20 08:00 68 12/11/20 07:34 36.4 C L 58 L 18 182/95 H 95 Medications Administered Current Inpatient Medications Acetaminophen (Acetaminophen 325 Mg Tab) 650 mg PO Q4H PRN PRN Reason: Pain or Fever Stop: 01/01/21 22:33 Last Admin: 12/06/20 06:11 Dose: 650 mg Documented by: Albuterol (Albuterol 0.083% Nebu Soln 3 Ml Vial) 2.5 mg INH QIDR PRN PRN Reason: Shortness Of Breath Or Wheezing Stop: 01/01/21 22:33 Amlodipine Besylate (Amlodipine Besylate 5 Mg Tab) 5 mg PO QAM [facility] Stop: 01/02/21 08:59 Last Admin: 12/11/20 07:40 Dose: 5 mg Documented by: Aspirin (Aspirin 81 Mg Ectab) 81 mg PO QAM [facility] Stop: 01/02/21 08:59 Last Admin: 12/11/20 07:42 Dose: 81 mg Documented by: Atorvastatin Calcium (Atorvastatin 40 Mg Tab) 80 mg PO DAILY [facility] Stop: 01/02/21 08:59 Last Admin: 12/11/20 07:40 Dose: 80 mg Documented by: Buprenorphine/Naloxone (Buprenorphine/Naloxone 8/2 Mg Tab) 1 tab SL BID [facility] Stop: 01/02/21 08:59 Last Admin: 12/11/20 09:00 Dose: 1 tab Documented by: Clonidine HCl (Clonidine Hcl 0.1 Mg Tab) 0.1 mg PO Q8H PRN PRN Reason: Hypertension Stop: 01/05/21 07:30 Clotrimazole (Clotrimazole 1% Cr 15 Gm Tube) 1 appln TOP BID [facility] Stop: 01/02/21 08:59 Last Admin: 12/11/20 07:54 Dose: 1 appln Documented by: Cyanocobalamin (Cyanocobalamin 500 Mcg Tablet (Vitamin B-12)) 1,000 mcg PO DAILY [facility] Stop: 01/02/21 08:59 Last Admin: 12/11/20 07:43 Dose: 1,000 mcg Documented by: Dextrose (Dextrose 50% 50 Ml Syringe) 25 - 50 ml IV UD PRN; Protocol PRN Reason: Hypoglycemia Protocol Stop: 01/01/21 23:29 Folic Acid (Folic Acid 1 Mg Tab) 1 mg PO QAM [facility] Stop: 01/02/21 08:59 Last Admin: 12/11/20 07:44 Dose: 1 mg Documented by: Furosemide (Furosemide 80 Mg Tab) 80 mg PO QAM [facility] Stop: 01/02/21 08:59 Last Admin: 12/11/20 07:41 Dose: 80 mg Documented by: Gabapentin (Gabapentin 300 Mg Cap) 300 mg PO BID [facility] Stop: 01/02/21 08:59 Last Admin: 12/11/20 07:40 Dose: 300 mg Documented by: Glucagon (Glucagon For Inj 1 Mg Vial) 1 mg IM UD PRN; Protocol PRN Reason: Hypoglycemia Protocol Stop: 01/01/21 23:29 Glucose (Glucose 40% Gel 15 Gm Tube) 15 - 30 gm PO UD PRN; Protocol PRN Reason: Hypoglycemia Protocol Stop: 01/01/21 23:29 Glucose (Glucose 10 Tabs/Tube) 4 - 8 tabs PO UD PRN; Protocol PRN Reason: Hypoglycemia Protocol Stop: 01/01/21 23:29 Insulin Aspart (Insulin Aspart 100 Units/Ml 3 Ml Pen) 0 units SC 1130,1630,2100 [facility] Stop: 01/01/21 23:29 Last Admin: 12/11/20 17:05 Dose: 9 units Documented by: Insulin Aspart (Insulin Aspart 100 Units/Ml 3 Ml Pen) 0 units SC 0730 [facility] Stop: 01/11/21 07:29 Insulin Detemir (Insulin Detemir Flexpen/Flex Touch 100 Units/Ml 3ml) 0 units SQ HS [facility]; Protocol Stop: 01/04/21 20:59 Last Admin: 12/10/20 20:36 Dose: 20 units Documented by: Insulin Detemir (Insulin Detemir Flexpen/Flex Touch 100 Units/Ml 3ml) 35 units SQ QAM [facility] Stop: 01/03/21 08:59 Last Admin: 12/11/20 07:54 Dose: 35 units Documented by: Lorazepam (Lorazepam 1 Mg Tab) 1 - 3 mg PO UD PRN; Protocol PRN Reason: EtoH Withdrawal AWSS 6-10+ Stop: 01/05/21 12:20 Losartan Potassium (Losartan Potassium 50 Mg Tab) [facility] Stop: 01/02/21 08:59 Last Admin: 12/11/20 07:41 Dose: 50 mg Documented by: Magnesium Chloride (Magnesium Chloride 64mg Delayed Rel Tab) 64 mg PO BID [facility] Stop: 01/04/21 08:59 Last Admin: 12/11/20 07:38 Dose: 64 mg Documented by: Metoprolol Succinate (Metoprolol Succ 25mg Ext Rel Tab) 75 mg PO QAM [facility] Stop: 01/02/21 08:59 Last Admin: 12/11/20 07:39 Dose: 75 mg Documented by: Miscellaneous (Remove Nicoderm Patch) 1 ea N/A DAILY@0859 [facility] Stop: 01/02/21 08:58 Last Admin: 12/11/20 07:38 Dose: 1 ea Documented by: Miscellaneous (Carbohydrates For Hypoglycemia ) 15 - 30 gm PO UD PRN PRN Reason: Hypoglycemia Treatment Stop: 01/01/21 23:29 Last Admin: 12/04/20 11:34 Dose: 15 gm Documented by: Miscellaneous Information (Pharmacy Glycemic Mgmt Consult) 1 ea N/A UD PRN PRN Reason: Consult Stop: 01/02/21 11:49 Multivitamins (Multivitamin Tab) 1 tab PO DAILY [facility] Stop: 01/02/21 08:59 Last Admin: 12/11/20 07:44 Dose: 1 tab Documented by: Naloxone HCl (Naloxone Hcl 0.4 Mg/1 Ml Vial/Carp) 0.4 mg IV DAILY PRN PRN Reason: OVERSEDATION Stop: 01/01/21 22:33 Nicotine (Nicotine 14 Mg/24 Hr Patch) [facility] Stop: 01/01/21 14:44 Last Admin: 12/11/20 07:45 Dose: 14 mg Documented by: Nitroglycerin (Nitroglycerin Sl 0.4 Mg/Tab Tab) 0.4 mg SL UD PRN PRN Reason: Chest Pain Stop: 01/01/21 22:33 Ondansetron HCl (Ondansetron Inj 2 Mg/Ml 2 Ml Vial) 4 mg IV Q6H PRN PRN Reason: Nausea Stop: 01/01/21 22:33 Polyethylene Glycol (Polyethylene (Miralax) 17 Gm Pack) 17 gm PO DAILY PRN PRN Reason: Constipation Stop: 01/01/21 22:33 Thiamine HCl (Thiamine Hcl 100 Mg Tab) 100 mg PO QAM [facility] Stop: 01/10/21 08:59 Last Admin: 12/11/20 07:44 Dose: 100 mg Documented by: Venlafaxine HCl (Venlafaxine Hcl Xr 150 Mg Capxr) [facility] Stop: 01/02/21 08:59 Last Admin: 12/11/20 07:43 Dose: 150 mg Documented by:
[2020-12-11] MEDS: INSULIN DETEMIR FLEXPEN/FLEX TOUCH 100 UNITS/ML 3ML SQ SCH (20:27)
[2020-12-11] MEDS: HEPARIN SOD 5,000 UNIT/0.5 ML VIAL SQ SCH (20:38)
[2020-12-12] MEDS: HEPARIN SOD 5,000 UNIT/0.5 ML VIAL SQ SCH ×3 (05:11→22:00)
[2020-12-12 08:12] LABS: Albumin Globulin Ratio 0.6 (0.9-2); Albumin Level 2.5 gm/dl (3.4-5.0); BUN Creatinine Ratio 34.7 (10-20); Bilirubin,Total 0.2 mg/dl (0.2-1); Calcium 8.6 mg/dl (8.5-10.1); Creatinine Clr Calc Pharmacy 59.3 ml/min; Est GFR (African American) 50.8 ml/min; Est GFR (Non-African American) 43.8 ml/min; Globulin 4.3 gm/dl (2.5-4.0); Magnesium 1.9 mg/dl (1.8-2.4); Phosphorus 3.8 mg/dl (2.5-4.9); Potassium 4.6 mmol/L (3.5-5.1); Total Protein 6.8 gm/dl (6.4-8.2)
[2020-12-12 08:25] LABS: Beta-Hydroxybutyrate 0.72 mg/dl (0.2-2.81)
[2020-12-12] MEDS: CYANOCOBALAMIN 500 MCG TABLET (VITAMIN B-12) PO SCH (08:56)
[2020-12-12] MEDS: ATORVASTATIN 40 MG TAB PO SCH (08:56)
[2020-12-12] MEDS: FUROSEMIDE 80 MG TAB PO SCH (08:56)
[2020-12-12] MEDS: LOSARTAN POTASSIUM 50 MG TAB PO SCH (08:56)
[2020-12-12] MEDS: GABAPENTIN 300 MG CAP PO SCH ×2 (08:56→19:36)
[2020-12-12] MEDS: FOLIC ACID 1 MG TAB PO SCH (08:56)
[2020-12-12] MEDS: ASPIRIN 81 MG ECTAB PO SCH (08:56)
[2020-12-12] MEDS: amLODIPine BESYLATE 5 MG TAB PO SCH (08:56)
[2020-12-12] MEDS: MULTIVITAMIN TAB PO SCH (08:57)
[2020-12-12] MEDS: MAGNESIUM CHLORIDE 64MG DELAYED REL TAB PO SCH ×2 (08:57→19:37)
[2020-12-12] MEDS: METOPROLOL SUCC 25MG EXT REL TAB PO SCH (08:57)
[2020-12-12] MEDS: VENLAFAXINE HCL XR 150 MG CAPXR PO SCH (08:57)
[2020-12-12] MEDS: THIAMINE HCL 100 MG TAB PO SCH (08:57)
[2020-12-12] MEDS: BUPRENORPHINE/NALOXONE 8/2 MG TAB SL SCH ×2 (09:09→21:59)
[2020-12-12] MEDS: NICOTINE 14 MG/24 HR PATCH TD SCH (09:09)
[2020-12-12] MEDS: CLOTRIMAZOLE 1% CR 15 GM TUBE TOP SCH ×2 (09:11→19:37)
[2020-12-12] MEDS: INSULIN DETEMIR FLEXPEN/FLEX TOUCH 100 UNITS/ML 3ML SQ SCH ×2 (09:12→22:36)
[2020-12-12] MEDS: INSULIN ASPART 100 UNITS/ML 3 ML PEN SC SCH ×4 (09:18→22:33)
--- NOTE | 2020-12-12 16:32 | Hospitalist Progress Note ---
Date of Service December 12, 2020 Assessment & Plan (1) Alcohol abuse: Plan: Failed recent inpatient rehabilitation within 2 weeks of discharge. He is back again to detox and try another rehab program. Case management is facilitating placement. (2) Alcohol withdrawal syndrome: Plan: Has been admitted since 12/02 with no evidence of alcohol withdrawal at this point. Slightly more shaky today, authorized 0.5 mg p.o. lorazepam x1. He continues on his Suboxone. Continue thiamine and folate daily. (3) Acute kidney injury: Plan: Baseline creatinine is around 1-1.1 currently 1.7. Trend BMP in a.m. after holding Lasix and Losartan (4) Transaminitis: Plan: Improved generally, likely related to recent alcohol use (5) Diabetes mellitus type 2 with complications: Plan: Pharmacy managing, currently euglycemic, continue with basal bolus insulin per pharmacy recommendations. (6) Tobacco use disorder: Plan: Continue NicoDerm patch (7) Chronic pain syndrome: Plan: Patient continues on Suboxone twice daily per home regimen. (8) Mood disorder: Plan: Continue same per home regimen. (9) CATALINO (obstructive sleep apnea): Plan: Records indicate patient is noncompliant with CPAP (10) HTN (hypertension): Plan: Chronic, controlled with current therapy including Norvasc 5 mg daily, furosemide 80 mg daily, losartan 50 mg daily, Toprol-XL 75 mg daily (11) DVT prophylaxis: Plan: heparin Full code Disposition-pending case management ability to get him into inpatient rehab again. Sara Morris DO [facility] Hospitalist Admission and Anticipated Discharge Date Admission Date: December 02, 2020 Subjective 55-year-old man with chronic alcohol abuse on Suboxone who presented in order to detox from alcohol. Recently in alcohol rehab therapy and was discharged for 2 weeks with a relapse. He is hemodynamically stable appears a little more shaky today. Reports feeling a little more anxious today Questions the next step in his care Tolerating p.o. Appears to be doing well generally Review of Systems Review of Systems: At least ten systems were reviewed and negative except as indicated in HPI above. Physical Exam Physical Exam: CONSTITUTIONAL: WNWD, vitals as above, NAD. slightly tremulous. EYES: normal conjunctivae, no scleral icterus ENT: external ear and nose normal, MMM NECK: trachea midline RESPIRATORY: clear to auscultation bilaterally, no crackles, rales or wheezes, normal respiratory effort CARDIOVASCULAR: regular rate and rhythm, S1 and 2 heard without murmurs, gallops or rubs, no JVD, no peripheral edema GASTROINTESTINAL: normal bowel sounds, soft, nontender, ND, no guarding MUSCULOSKELETAL: strength 5/5 throughout, head is normocephalic and atraumatic, neck supple, normal palpation of chest wall without tenderness SKIN: warm and dry, rosacea on face appears somewhat inflamed. Has irritated, dry skin generally. NEUROLOGIC: CN 2-12 grossly intact,normal cognition, normal speech, no tremor PSYCHIATRIC: alert cooperative and oriented to person, place and time. Results & Data Results & Data ([facility]) Vital Signs (Past 12 Hours) Vital Signs Temp Pulse Pulse Resp BP Pulse Ox 12/12/20 16:00 37.7 C H 81 18 101/66 96 12/12/20 06:23 36.4 C L 68 16 108/72 95 Laboratory Results [facility] 12/12/20 06:58 Sodium 135 L Potassium 4.6 Chloride 101 Carbon Dioxide 30 BUN 59 H Creatinine 1.71 H Glucose 367 H* Calcium 8.6 Liver Function 12/12/20 Range/Units 06:58 Total Bilirubin 0.2 (0.2-1) mg/dl AST 75 H (15-37) U/L ALT 109 H (12-78) U/L Alkaline Phosphatase 136 H (45-117) U/L Albumin 2.5 L (3.4-5.0) gm/dl Medications Administered Current Inpatient Medications Acetaminophen (Acetaminophen 325 Mg Tab) 650 mg PO Q4H PRN PRN Reason: Pain or Fever Stop: 01/01/21 22:33 Last Admin: 12/06/20 06:11 Dose: 650 mg Documented by: Albuterol (Albuterol 0.083% Nebu Soln 3 Ml Vial) 2.5 mg INH QIDR PRN PRN Reason: Shortness Of Breath Or Wheezing Stop: 01/01/21 22:33 Amlodipine Besylate (Amlodipine Besylate 5 Mg Tab) [facility] Stop: 01/02/21 08:59 Last Admin: 12/12/20 08:56 Dose: 5 mg Documented by: Aspirin (Aspirin 81 Mg Ectab) 81 mg [facility]AC[facility] [place] Stop: 01/02/21 08:59 Last Admin: 09/25/21 08:56 Dose: 81 mg Documented by: Atorvastatin Calcium (Atorvastatin 40 Mg Tab) 80 mg PO DAILY [facility] Stop: 01/02/21 08:59 Last Admin: 12/12/20 08:56 Dose: 80 mg Documented by: Buprenorphine/Naloxone (Buprenorphine/Naloxone 8/2 Mg Tab) 1 tab SL BID [facility] Stop: 01/02/21 08:59 Last Admin: 12/12/20 09:09 Dose: 1 tab Documented by: Clonidine HCl (Clonidine Hcl 0.1 Mg Tab) 0.1 mg PO Q8H PRN PRN Reason: Hypertension Stop: 01/05/21 07:30 Clotrimazole (Clotrimazole 1% Cr 15 Gm Tube) 1 appln TOP BID [facility] Stop: 01/02/21 08:59 Last Admin: 12/12/20 09:11 Dose: 1 appln Documented by: Cyanocobalamin (Cyanocobalamin 500 Mcg Tablet (Vitamin B-12)) 1,000 mcg PO DAILY [facility] Stop: 01/02/21 08:59 Last Admin: 12/12/20 08:56 Dose: 1,000 mcg Documented by: Dextrose (Dextrose 50% 50 Ml Syringe) 25 - 50 ml IV UD PRN; Protocol PRN Reason: Hypoglycemia Protocol Stop: 01/01/21 23:29 Folic Acid (Folic Acid 1 Mg Tab) 1 mg PO QAM [facility] Stop: 01/02/21 08:59 Last Admin: 12/12/20 08:56 Dose: 1 mg Documented by: Furosemide (Furosemide 80 Mg Tab) 80 mg PO QAM [facility] Stop: 01/02/21 08:59 Last Admin: 12/12/20 08:56 Dose: 80 mg Documented by: Gabapentin (Gabapentin 300 Mg Cap) 300 mg PO BID [facility] Stop: 01/02/21 08:59 Last Admin: 12/12/20 08:56 Dose: 300 mg Documented by: Glucagon (Glucagon For Inj 1 Mg Vial) 1 mg IM UD PRN; Protocol PRN Reason: Hypoglycemia Protocol Stop: 01/01/21 23:29 Glucose (Glucose 40% Gel 15 Gm Tube) 15 - 30 gm PO UD PRN; Protocol PRN Reason: Hypoglycemia Protocol Stop: 01/01/21 23:29 Glucose (Glucose 10 Tabs/Tube) 4 - 8 tabs PO UD PRN; Protocol PRN Reason: Hypoglycemia Protocol Stop: 01/01/21 23:29 Heparin Sodium (Porcine) (Heparin Sod 5,000 Unit/0.5 Ml Vial) 5,000 units SQ Q8 [facility] Stop: 01/10/21 21:59 Last Admin: 12/12/20 15:22 Dose: 5,000 units Documented by: Insulin Aspart (Insulin Aspart 100 Units/Ml 3 Ml Pen) 0 units SC 1130,1630,2100 [facility] Stop: 01/01/21 23:29 Last Admin: 12/12/20 13:54 Dose: 9 units Documented by: Insulin Aspart (Insulin Aspart 100 Units/Ml 3 Ml Pen) 0 units SC 0730 [facility] Stop: 01/11/21 07:29 Last Admin: 12/12/20 09:18 Dose: 23 units Documented by: Insulin Detemir (Insulin Detemir Flexpen/Flex Touch 100 Units/Ml 3ml) 0 units SQ BID [facility]; Protocol Stop: 01/11/21 08:59 Last Admin: 12/12/20 09:12 Dose: 40 units Documented by: Lorazepam (Lorazepam 1 Mg Tab) 1 - 3 mg PO UD PRN; Protocol PRN Reason: EtoH Withdrawal AWSS 6-10+ Stop: 01/05/21 12:20 Losartan Potassium (Losartan Potassium 50 Mg Tab) 50 [facility] Stop: 01/02/21 08:59 Last Admin: 12/12/20 08:56 Dose: 50 mg Documented by: Magnesium Chloride (Magnesium Chloride 64mg Delayed Rel Tab) 64 mg PO BID [facility] Stop: 01/04/21 08:59 Last Admin: 12/12/20 08:57 Dose: 64 mg Documented by: Metoprolol Succinate (Metoprolol Succ 25mg Ext Rel Tab) 75 mg PO QAM [facility] Stop: 01/02/21 08:59 Last Admin: 12/12/20 08:57 Dose: 75 mg Documented by: Miscellaneous (Remove Nicoderm Patch) 1 ea N/A DAILY@0859 [facility] Stop: 01/02/21 08:58 Last Admin: 12/12/20 09:11 Dose: 1 ea Documented by: Miscellaneous (Carbohydrates For Hypoglycemia ) 15 - 30 gm PO UD PRN PRN Reason: Hypoglycemia Treatment Stop: 01/01/21 23:29 Last Admin: 12/04/20 11:34 Dose: 15 gm Documented by: Miscellaneous Information (Pharmacy Glycemic Mgmt Consult) 1 ea N/A UD PRN PRN Reason: Consult Stop: 01/02/21 11:49 Multivitamins (Multivitamin Tab) 1 tab PO DAILY [facility] Stop: 01/02/21 08:59 Last Admin: 12/12/20 08:57 Dose: 1 tab Documented by: Naloxone HCl (Naloxone Hcl 0.4 Mg/1 Ml Vial/Carp) 0.4 mg IV DAILY PRN PRN Reason: OVERSEDATION Stop: 01/01/21 22:33 Nicotine (Nicotine 14 Mg/24 Hr Patch) 14 mg TD QAM [facility] Stop: 01/01/21 14:44 Last Admin: 12/12/20 09:09 Dose: 14 mg Documented by: Nitroglycerin (Nitroglycerin Sl 0.4 Mg/Tab Tab) 0.4 mg SL UD PRN PRN Reason: Chest Pain Stop: 01/01/21 22:33 Ondansetron HCl (Ondansetron Inj 2 Mg/Ml 2 Ml Vial) 4 mg IV Q6H PRN PRN Reason: Nausea Stop: 01/01/21 22:33 Polyethylene Glycol (Polyethylene (Miralax) 17 Gm Pack) 17 gm PO DAILY PRN PRN Reason: Constipation Stop: 01/01/21 22:33 Thiamine HCl (Thiamine Hcl 100 Mg Tab) 100 mg PO QAM [facility] Stop: 01/10/21 08:59 Last Admin: 12/12/20 08:57 Dose: 100 mg Documented by: Venlafaxine HCl (Venlafaxine Hcl Xr 150 Mg Capxr) 150 mg PO QAM [facility] Stop: 01/02/21 08:59 Last Admin: 12/12/20 08:57 Dose: 150 mg Documented by:
[2020-12-12] MEDS ORDERED: LORazepam 0.5 MG TAB PO STA (17:22)
[2020-12-12] MEDS ORDERED: LORazepam 0.5 MG TAB ONE (17:26)
[2020-12-13] MEDS: INSULIN ASPART 100 UNITS/ML 3 ML PEN SC SCH ×7 (01:10→21:26)
[2020-12-13] MEDS: HEPARIN SOD 5,000 UNIT/0.5 ML VIAL SQ SCH ×3 (06:03→20:13)
[2020-12-13 06:33] LABS: Hematocrit (blood only) 39.3 % (42-52); Hemoglobin 12.7 g/dL (14.0-18.0); Mean Corpuscular Hemoglobin 30.9 pg (25-34); Mean Corpuscular Hgb Conc 32.3 g/dL (32-36); Mean Corpuscular Volume 95.6 fL (80-100); Mean Platelet Volume 10.2 fL (7.4-10.4); Platelet Count 227 K/uL (130-400); RDW Coefficient of Variation 12.3 % (11.5-14.5); RDW Standard Deviation 42.9 fL (36.4-46.3); Red Blood Count 4.11 M/uL (4.7-6.1); White Blood Count 3.81 K/uL (4.8-10.8)
[2020-12-13 07:14] LABS: BUN Creatinine Ratio 35.9 (10-20); Calcium 9.8 mg/dl (8.5-10.1); Est GFR (African American) 52.6 ml/min; Est GFR (Non-African American) 45.4 ml/min; Potassium 4.9 mmol/L (3.5-5.1)
[2020-12-13] MEDS: ATORVASTATIN 40 MG TAB PO SCH (08:52)
[2020-12-13] MEDS: THIAMINE HCL 100 MG TAB PO SCH (08:52)
[2020-12-13] MEDS: ASPIRIN 81 MG ECTAB PO SCH (08:53)
[2020-12-13] MEDS: MULTIVITAMIN TAB PO SCH (08:53)
[2020-12-13] MEDS: GABAPENTIN 300 MG CAP PO SCH ×2 (08:54→20:13)
[2020-12-13] MEDS: FOLIC ACID 1 MG TAB PO SCH (08:54)
[2020-12-13] MEDS: MAGNESIUM CHLORIDE 64MG DELAYED REL TAB PO SCH ×2 (08:54→20:13)
[2020-12-13] MEDS: amLODIPine BESYLATE 5 MG TAB PO SCH (08:54)
[2020-12-13] MEDS: METOPROLOL SUCC 25MG EXT REL TAB PO SCH (08:55)
[2020-12-13] MEDS: INSULIN DETEMIR FLEXPEN/FLEX TOUCH 100 UNITS/ML 3ML SQ SCH ×2 (08:59→21:25)
[2020-12-13] MEDS: CLOTRIMAZOLE 1% CR 15 GM TUBE TOP SCH ×2 (09:24→20:13)
[2020-12-13] MEDS: BUPRENORPHINE/NALOXONE 8/2 MG TAB SL SCH ×2 (09:24→20:13)
[2020-12-13] MEDS: NICOTINE 14 MG/24 HR PATCH TD SCH (10:44)
[2020-12-13] MEDS: CYANOCOBALAMIN 500 MCG TABLET (VITAMIN B-12) PO SCH (10:45)
[2020-12-13] MEDS: VENLAFAXINE HCL XR 150 MG CAPXR PO SCH (10:45)
--- NOTE | 2020-12-13 12:01 | Hospitalist Progress Note ---
Date of Service December 13, 2020 Assessment & Plan (1) Alcohol abuse: Plan: Failed recent inpatient rehabilitation within 2 weeks of discharge. He is back again to detox and try another rehab program. Case management is facilitating placement. (2) Alcohol withdrawal syndrome: Plan: Has been admitted since 12/02 with no evidence of alcohol withdrawal at this point. He continues on his Suboxone and PRN Ativan. Continue thiamine and folate daily. (3) Acute kidney injury: Plan: Baseline creatinine is around 1-1.1 , 1.66 on today's check. Trend BMP in a.m. after holding Lasix and Losartan (4) Transaminitis: Plan: Improved generally, likely related to recent alcohol use (5) Diabetes mellitus type 2 with complications: Plan: Pharmacy managing, currently euglycemic, continue with basal bolus insulin per pharmacy recommendations. (6) Tobacco use disorder: Plan: Continue NicoDerm patch (7) Chronic pain syndrome: Plan: Patient continues on Suboxone twice daily per home regimen. (8) Mood disorder: Plan: Continue same per home regimen. (9) CATALINO (obstructive sleep apnea): Plan: Records indicate patient is noncompliant with CPAP (10) HTN (hypertension): Plan: Chronic, controlled with current therapy including Norvasc 5 mg daily, furosemide 80 mg daily, losartan 50 mg daily, Toprol-XL 75 mg daily (11) DVT prophylaxis: Plan: heparin Full code Disposition-pending case management ability to get him into inpatient rehab again. Sara Morris DO [facility] Hospitalist Admission and Anticipated Discharge Date Admission Date: December 02, 2020 Subjective 55-year-old man with chronic alcohol abuse on Suboxone who presented in order to detox from alcohol. Recently in alcohol rehab therapy and was discharged for 2 weeks with a relapse. denies increased shakiness feeling overall stable today no acute issues tolerating PO awaiting placement in rehab Review of Systems Review of Systems: At least ten systems were reviewed and negative except as indicated in HPI above. Physical Exam Physical Exam: CONSTITUTIONAL: WNWD, vitals as above, NAD. slightly tremulo us. EYES: normal conjunctivae, no scleral icterus ENT: external ear and nose normal, MMM NECK: trachea midline RESPIRATORY: clear to auscultation bilaterally, no crackles, rales or wheezes, normal respiratory effort CARDIOVASCULAR: regular rate and rhythm, S1 and 2 heard without murmurs, gallops or rubs, no JVD, no peripheral edema GASTROINTESTINAL: normal bowel sounds, soft, nontender, ND, no guarding MUSCULOSKELETAL: strength 5/5 throughout, head is normocephalic and atraumatic, neck supple, normal palpation of chest wall without tenderness SKIN: warm and dry, rosacea on face appears somewhat inflamed. Has irritated, dry skin generally. NEUROLOGIC: CN 2-12 grossly intact,normal cognition, normal speech, no tremor PSYCHIATRIC: alert cooperative and oriented to person, place and time. Results & Data Results & Data ([facility] [place]) Vital Signs (Past 12 Hours) Vital Signs Temp Pulse Resp BP Pulse Ox 12/13/20 07:04 36.5 C 58 L 19 129/75 96 12/13/20 03:25 70 18 113/77 96 Laboratory Results Short CBC 12/13/20 Range/Units 06:07 WBC 3.81 L (4.8-10.8) K/uL Hgb 12.7 L (14.0-18.0) g/dL Hct 39.3 L (42-52) % Plt Count 227 (130-400) K/uL BMP 12/13/20 06:07 Sodium 140 Potassium 4.9 Chloride 104 Carbon Dioxide 32 BUN 60 H Creatinine 1.66 H Glucose 104 H Calcium 9.8 Medications Administered Current Inpatient Medications Acetaminophen (Acetaminophen 325 Mg Tab) 650 mg PO Q4H PRN PRN Reason: Pain or Fever Stop: 01/01/21 22:33 Last Admin: 12/06/20 06:11 Dose: 650 mg Documented by: Albuterol (Albuterol 0.083% Nebu Soln 3 Ml Vial) 2.5 mg INH QIDR PRN PRN Reason: Shortness Of Breath Or Wheezing Stop: 01/01/21 22:33 Amlodipine Besylate (Amlodipine Besylate 5 Mg Tab) 5 mg PO QAM [facility] Stop: 01/02/21 08:59 Last Admin: 12/13/20 08:54 Dose: 5 mg Documented by: Aspirin (Aspirin 81 Mg Ectab) 81 mg PO QAM [facility] Stop: 01/02/21 08:59 Last Admin: 12/13/20 08:53 Dose: 81 mg Documented by: Atorvastatin Calcium (Atorvastatin 40 Mg Tab) 80 mg PO DAILY [facility] Stop: 01/02/21 08:59 Last Admin: 09/26/21 08:52 Dose: 80 mg Documented by: Buprenorphine/Naloxone (Buprenorphine/Naloxone 8/2 Mg Tab) 1 tab SL BID [facility] Stop: 01/02/21 08:59 Last Admin: 12/13/20 09:24 Dose: 1 tab Documented by: Clonidine HCl (Clonidine Hcl 0.1 Mg Tab) 0.1 mg PO Q8H PRN PRN Reason: Hypertension Stop: 01/05/21 07:30 Clotrimazole (Clotrimazole 1% Cr 15 Gm Tube) 1 appln TOP BID [facility] Stop: 01/02/21 08:59 Last Admin: 12/13/20 09:24 Dose: 1 appln Documented by: Cyanocobalamin (Cyanocobalamin 500 Mcg Tablet (Vitamin B-12)) 1,000 mcg PO DAILY [facility] Stop: 01/02/21 08:59 Last Admin: 12/13/20 10:45 Dose: 1,000 mcg Documented by: Dextrose (Dextrose 50% 50 Ml Syringe) 25 - 50 ml IV UD PRN; Protocol PRN Reason: Hypoglycemia Protocol Stop: 01/01/21 23:29 Folic Acid (Folic Acid 1 Mg Tab) 1 mg PO QAM [facility] Stop: 01/02/21 08:59 Last Admin: 12/13/20 08:54 Dose: 1 mg Documented by: Furosemide (Furosemide 80 Mg Tab) 80 mg PO QAM [facility] Stop: 01/02/21 08:59 Last Admin: 12/12/20 08:56 Dose: 80 mg Documented by: Gabapentin (Gabapentin 300 Mg Cap) 300 mg PO BID [facility] Stop: 01/02/21 08:59 Last Admin: 12/13/20 08:54 Dose: 300 mg Documented by: Glucagon (Glucagon For Inj 1 Mg Vial) 1 mg IM UD PRN; Protocol PRN Reason: Hypoglycemia Protocol Stop: 01/01/21 23:29 Glucose (Glucose 40% Gel 15 Gm Tube) 15 - 30 gm PO UD PRN; Protocol PRN Reason: Hypoglycemia Protocol Stop: 01/01/21 23:29 Glucose (Glucose 10 Tabs/Tube) 4 - 8 tabs PO UD PRN; Protocol PRN Reason: Hypoglycemia Protocol Stop: 01/01/21 23:29 Heparin Sodium (Porcine) (Heparin Sod 5,000 Unit/0.5 Ml Vial) 5,000 units SQ Q8 [facility] Stop: 01/10/21 21:59 Last Admin: 12/13/20 06:03 Dose: 5,000 units Documented by: Insulin Aspart (Insulin Aspart 100 Units/Ml 3 Ml Pen) 0 units SC 1130,1630,2100 [facility] Stop: 01/01/21 23:29 Last Admin: 12/12/20 22:33 Dose: 16 units Documented by: Insulin Aspart (Insulin Aspart 100 Units/Ml 3 Ml Pen) 0 units SC 0730 [facility] Stop: 01/11/21 07:29 Last Admin: 12/13/20 09:06 Dose: 12 units Documented by: Insulin Detemir (Insulin Detemir Flexpen/Flex Touch 100 Units/Ml 3ml) 0 units SQ BID [facility]; Protocol Stop: 01/11/21 08:59 Last Admin: 12/13/20 08:59 Dose: 35 units Documented by: Lorazepam (Lorazepam 1 Mg Tab) 1 - 3 mg PO UD PRN; Protocol PRN Reason: EtoH Withdrawal AWSS 6-10+ Stop: 01/05/21 12:20 Losartan Potassium (Losartan Potassium 50 Mg Tab) 50 mg PO QAM [facility] Stop: 01/02/21 08:59 Last Admin: 12/12/20 08:56 Dose: 50 mg Documented by: Magnesium Chloride (Magnesium Chloride 64mg Delayed Rel Tab) 64 mg PO BID [facility] Stop: 01/04/21 08:59 Last Admin: 12/13/20 08:54 Dose: 64 mg Documented by: Metoprolol Succinate (Metoprolol Succ 25mg Ext Rel Tab) 75 mg PO QAM [facility] Stop: 01/02/21 08:59 Last Admin: 12/13/20 08:55 Dose: Not Given Documented by: Miscellaneous (Remove Nicoderm Patch) 1 ea N/A DAILY@0859 [facility] Stop: 01/02/21 08:58 Last Admin: 12/13/20 08:52 Dose: 1 ea Documented by: Miscellaneous (Carbohydrates For Hypoglycemia ) 15 - 30 gm PO UD PRN PRN Reason: Hypoglycemia Treatment Stop: 01/01/21 23:29 Last Admin: 12/04/20 11:34 Dose: 15 gm Documented by: Miscellaneous Information (Pharmacy Glycemic Mgmt Consult) 1 ea N/A UD PRN PRN Reason: Consult Stop: 01/02/21 11:49 Multivitamins (Multivitamin Tab) 1 tab PO DAILY [facility] Stop: 01/02/21 08:59 Last Admin: 12/13/20 08:53 Dose: 1 tab Documented by: Naloxone HCl (Naloxone Hcl 0.4 Mg/1 Ml Vial/Carp) 0.4 mg IV DAILY PRN PRN Reason: OVERSEDATION Stop: 01/01/21 22:33 Nicotine (Nicotine 14 Mg/24 Hr Patch) 14 mg TD QAM [facility] Stop: 01/01/21 14:44 Last Admin: 12/13/20 10:44 Dose: 14 mg Documented by: Nitroglycerin (Nitroglycerin Sl 0.4 Mg/Tab Tab) 0.4 mg SL UD PRN PRN Reason: Chest Pain Stop: 01/01/21 22:33 Ondansetron HCl (Ondansetron Inj 2 Mg/Ml 2 Ml Vial) 4 mg IV Q6H PRN PRN Reason: Nausea Stop: 01/01/21 22:33 Polyethylene Glycol (Polyethylene (Miralax) 17 Gm Pack) 17 gm PO DAILY PRN PRN Reason: Constipation Stop: 01/01/21 22:33 Thiamine HCl (Thiamine Hcl 100 Mg Tab) 100 mg PO QAM [facility] Stop: 01/10/21 08:59 Last Admin: 12/13/20 08:52 Dose: 100 mg Documented by: Venlafaxine HCl (Venlafaxine Hcl Xr 150 Mg Capxr) 150 mg PO QAM [facility] Stop: 01/02/21 08:59 Last Admin: 12/13/20 10:45 Dose: 150 mg Documented by:
--- NOTE | 2020-12-13 15:23 | Pharmacy Report ---
Pharmacy Glycemic Short Note 2 - Date of Service December 13, 2020 - Glycemic Short BSG Results (Last 24 hours): 12/12/20 12/12/20 12/12/20 17:39 20:41 20:42 Glucose POC Glucose 255 H 360 H* 371 H* 12/12/20 12/13/20 12/13/20 21:31 01:06 03:35 Glucose POC Glucose 374 H* 287 H 152 H 12/13/20 12/13/20 12/13/20 06:07 08:28 12:05 Glucose 104 H POC Glucose 124 H 158 H OUTPATIENT ANTIDIABETIC REGIMEN: * Levemir 45 units SQ HS, Novolog SS * Prescribed Ozempic - pt reports not taking * A1c = 8.2% (12/03/20) ASSESSMENT: 12/13: * Fasting BSG at goal after receiving 80 units of basal insulin 12/12 * BSG trending up throughout the day, therefore will increase novolog 12/11: * Observed trend during this admission and prior ones of low BSGs at dinnertime with elevated fasting BSGs * This trend may possibly be related to increased dose of Levemir in the morning and insufficient ramirez in evening, so will trial lowering morning basal and increase evening basal 12/10: * BSGs yesterday of 170, 239, 178, and 176 mg/dL * Received 91 units of insulin (57 units of Levemir and 34 units of Novolog) * Novolog parameters tightened yesterday, will further tighten today * Fasting BSG of 250 mg/dL, will utilize Lantus scale at HS to provide increase dose this evening 12/03 * Dewayne is a 55 yo T2DM admitted for alcohol abuse and request for detox * He is know to the glycemic service from previous admissions * He had severe hyperglycemia on admission followed by 24 hours of BSGs below goal after receiving two doses of Levemir 45 units and a large dose of 15 units of Novolog on 12/02 pm * Fasting significantly elevated today. Will add bedtime dose of Levemir (pt has required BID dosing in the past due to levemir not lasting 24 hours). * Novolog loosened after patient had yet another hypoglycemic episode at lunch (BSG = 59 mg/dL) PLAN FOR INPATIENT GLYCEMIC CONTROL: * Hold outpatient oral diabetes medications * Basal insulin * Levemir 30-40 units SC BID (see EHR for details) * Bolus insulin * NovoLog per scale ACHS or Q6hrs while NPO * Goal Range: Low 100 mg/dL - High 140 mg/dL * Correction Factor: 25 mg/dL/unit * Nutritional / Prandial insulin per carb ratio of 1 unit per 5 grams CHO consumed PLAN FOR DISCHARGE: * Reasonable to continue current outpatient insulin doses on discharge * Patient was reportedly to start Ozempic as an outpatient, but never did * Patient may benefit from this addition, encourage patient to follow-up with outpatient provider in regards to this
[2020-12-14] MEDS: HEPARIN SOD 5,000 UNIT/0.5 ML VIAL SQ SCH ×3 (05:39→21:10)
[2020-12-14] MEDS: VENLAFAXINE HCL XR 150 MG CAPXR PO SCH (08:15)
[2020-12-14] MEDS: CYANOCOBALAMIN 500 MCG TABLET (VITAMIN B-12) PO SCH (08:15)
[2020-12-14] MEDS: amLODIPine BESYLATE 5 MG TAB PO SCH (08:15)
[2020-12-14] MEDS: MULTIVITAMIN TAB PO SCH (08:15)
[2020-12-14] MEDS: METOPROLOL SUCC 25MG EXT REL TAB PO SCH (08:15)
[2020-12-14] MEDS: CLOTRIMAZOLE 1% CR 15 GM TUBE TOP SCH ×2 (08:16→21:32)
[2020-12-14] MEDS: ATORVASTATIN 40 MG TAB PO SCH (08:16)
[2020-12-14] MEDS: MAGNESIUM CHLORIDE 64MG DELAYED REL TAB PO SCH ×2 (08:17→21:09)
[2020-12-14] MEDS: ASPIRIN 81 MG ECTAB PO SCH (08:17)
[2020-12-14] MEDS: GABAPENTIN 300 MG CAP PO SCH ×2 (08:17→21:39)
[2020-12-14] MEDS: NICOTINE 14 MG/24 HR PATCH TD SCH (08:17)
[2020-12-14] MEDS: FOLIC ACID 1 MG TAB PO SCH (08:17)
[2020-12-14] MEDS: INSULIN ASPART 100 UNITS/ML 3 ML PEN SC SCH ×5 (09:01→21:06)
[2020-12-14] MEDS: INSULIN DETEMIR FLEXPEN/FLEX TOUCH 100 UNITS/ML 3ML SQ SCH ×2 (09:02→21:34)
[2020-12-14 09:10] LABS: Hematocrit (blood only) 39.7 % (42-52); Hemoglobin 13.2 g/dL (14.0-18.0); Mean Corpuscular Hemoglobin 31.1 pg (25-34); Mean Corpuscular Hgb Conc 33.2 g/dL (32-36); Mean Corpuscular Volume 93.6 fL (80-100); Mean Platelet Volume 10.5 fL (7.4-10.4); Platelet Count 239 K/uL (130-400); RDW Coefficient of Variation 12.3 % (11.5-14.5); RDW Standard Deviation 41.7 fL (36.4-46.3); Red Blood Count 4.24 M/uL (4.7-6.1); White Blood Count 3.92 K/uL (4.8-10.8)
[2020-12-14 09:18] LABS: Partial Thromboplastin Ratio 1.6
[2020-12-14] MEDS: THIAMINE HCL 100 MG TAB PO SCH (09:31)
[2020-12-14] MEDS: BUPRENORPHINE/NALOXONE 8/2 MG TAB SL SCH ×2 (09:31→21:33)
[2020-12-14 09:37] LABS: BUN Creatinine Ratio 34.8 (10-20); Calcium 9.8 mg/dl (8.5-10.1); Creatinine Clr Calc Pharmacy 75.2 ml/min; Est GFR (African American) 67.5 ml/min; Est GFR (Non-African American) 58.3 ml/min; Potassium 4.8 mmol/L (3.5-5.1)
[2020-12-14] MEDS: ACETAMINOPHEN 325 MG TAB PO PRN (11:51)
[2020-12-14] MEDS ORDERED: FUROSEMIDE 40 MG TAB PO ONE (12:28)
--- NOTE | 2020-12-14 12:43 | Pharmacy Report ---
Pharmacy Glycemic Short Note 2 - Date of Service December 14, 2020 - Glycemic Short BSG Results (Last 24 hours): 12/13/20 12/13/20 12/14/20 16:45 20:52 08:12 Glucose POC Glucose 129 H 116 H 96 12/14/20 12/14/20 08:23 12:12 Glucose 92 POC Glucose 176 H OUTPATIENT ANTIDIABETIC REGIMEN: * Levemir 45 units SQ HS, Novolog SS * Prescribed Ozempic - pt reports not taking * A1c = 8.2% (12/03/20) ASSESSMENT: 12/14: * Patient received total of 125 units of insulin yesterday, of which 70 units are basal * Fasting BSG 96 mg/dL - continue with basal scale, may decrease parameters slightly * No change to CF/CR 12/13: * Fasting BSG at goal after receiving 80 units of basal insulin 12/12 * BSG trending up throughout the day, therefore will increase novolog 12/11: * Observed trend during this admission and prior ones of low BSGs at dinnertime with elevated fasting BSGs * This trend may possibly be related to increased dose of Levemir in the morning and insufficient ramirez in evening, so will trial lowering morning basal and increase evening basal 12/10: * BSGs yesterday of 170, 239, 178, and 176 mg/dL * Received 91 units of insulin (57 units of Levemir and 34 units of Novolog) * Novolog parameters tightened yesterday, will further tighten today * Fasting BSG of 250 mg/dL, will utilize Lantus scale at HS to provide increase dose this evening 12/03 * Dewayne is a 55 yo T2DM admitted for alcohol abuse and request for detox * He is know to the glycemic service from previous admissions * He had severe hyperglycemia on admission followed by 24 hours of BSGs below goal after receiving two doses of Levemir 45 units and a large dose of 15 units of Novolog on 12/02 pm * Fasting significantly elevated today. Will add bedtime dose of Levemir (pt has required BID dosing in the past due to levemir not lasting 24 hours). * Novolog loosened after patient had yet another hypoglycemic episode at lunch (BSG = 59 mg/dL) PLAN FOR INPATIENT GLYCEMIC CONTROL: * Hold outpatient oral diabetes medications * Basal insulin * Levemir 25-35 units SC BID (see EHR for details) * Bolus insulin * NovoLog per scale ACHS or Q6hrs while NPO * Goal Range: Low 100 mg/dL - High 140 mg/dL * Correction Factor: 25 mg/dL/unit * Nutritional / Prandial insulin per carb ratio of 1 unit per 5 grams CHO consumed PLAN FOR DISCHARGE: * Reasonable to continue current outpatient insulin doses on discharge * Patient was reportedly to start Ozempic as an outpatient, but never did * Patient may benefit from this addition, encourage patient to follow-up with outpatient provider in regards to this
[2020-12-14] MEDS: LOSARTAN POTASSIUM 25 MG TAB PO SCH (13:23)
--- NOTE | 2020-12-14 13:36 | Hospitalist Progress Note ---
Date of Service December 14, 2020 Assessment & Plan (1) Alcohol abuse: Plan: Failed recent inpatient rehabilitation within 2 weeks of discharge. He is back again to detox and try another rehab program. Case management is facilitating placement. (2) Alcohol withdrawal syndrome: Plan: Has been admitted since 12/02 with no evidence of alcohol withdrawal at this point. He continues on his Suboxone and PRN Ativan. Continue thiamine and folate daily. (3) Acute kidney injury: Plan: Baseline creatinine is around 1-1.1, up to 1.6 on 12/13 and furosemide and losartan were held Creatinine improved to 1.3 today Resume furosemide and losartan at lower doses Continue to monitor renal functions (4) Transaminitis: Plan: Improved generally, likely related to recent alcohol use (5) Diabetes mellitus type 2 with complications: Plan: Pharmacy managing, currently euglycemic, continue with basal bolus insulin per pharmacy recommendations. Hgb A1c 8.2 (6) Tobacco use disorder: Plan: Continue NicoDerm patch (7) Chronic pain syndrome: Plan: Patient continues on Suboxone twice daily per home regimen. Had fall yesterday and bathroom, reporting mild increase in chronic mid back pain. Check x-ray. (8) Mood disorder: Plan: Continue same per home regimen. (9) CATALINO (obstructive sleep apnea): Plan: Records indicate patient is noncompliant with CPAP (10) HTN (hypertension): Plan: Chronic, controlled with current therapy including Norvasc 5 mg daily, furosemide 80 mg daily, losartan 50 mg daily, Toprol-XL 75 mg daily Due to ONDINA, furosemide and losartan were held, resuming today furosemide 40 mg daily and losartan 25 mg daily (11) DVT prophylaxis: Plan: -SQ heparin (12) Discharge planning issues: Plan: -Awaiting acceptance to inpatient alcohol rehab program. Admission and Anticipated Discharge Date Admission Date: December 02, 2020 Supervising Physician Co-Signing Physician Notes Patient is seen and examined at bedside. States having chronic back pain. Denies any chest pain, shortness of breath, dizziness, nausea, abdominal pain. Waiting for alcohol rehab placement. On exam patient is moderately built and nourished, no apparent distress, normocephalic atraumatic, EOMI, normal breath sounds, clear to auscultation normal S1-S2, trace bilateral pedal edema, no murmur, abdomen soft, nontender, normal bowel sounds, alert, awake, oriented, grossly no focal deficits,+ tremor. Alcohol abuse, alcohol withdrawal syndrome Currently no evidence of withdrawal Continue thiamine, folic acid ONDINA Creatinine improved today Resume home losartan, Lasix at lower dose Monitor renal function I personally reviewed the record. Patient is interviewed and examined at bedside. Patient's care is coordinated with Cate Altamirano ADVERTISING SPECIALIST. Please refer to the documentation above for details of patient's presentation and for discussion of other issues. Subjective Patient seen and examined. Sitting at the edge of the bed. Reports falling in the bathroom yesterday. States that he tripped over a step stool. Did not strike his head. Reports some mild worsening of chronic back pain. Overall feels well. Ready to go to inpatient alcohol rehab. No chest pain or shortness of breath. Denies lightheadedness and dizziness. No abdominal pain or nausea. Review of Systems Review of Systems: All systems reviewed & are unremarkable except as noted in Subjective Physical Exam Constitutional: WD/WN, vitals as above Respiratory: normal respiratory effort, lungs clear to auscultation Cardiovascular: Rate/Rhythm: regular rate and regular rhythm Vessels: normal peripheral pulses Extremities: + edema (+1 edema BLE) Gastrointestinal (Abdomen): normal bowel sounds, soft, nontender, no hepatosplenomegaly Musculoskeletal: Spine: + thoracic spinal tenderness Skin: no rashes, warm and dry Neurologic: no focal motor deficits Psychiatric: A+Ox3, euthymic affect Motor Behavior: + tremor Results & Data Results & Data ([facility]) Vital Signs (Past 12 Hours) Vital Signs Temp Pulse Resp BP Pulse Ox 12/14/20 07:35 36.4 C L 59 L 18 165/95 H 98 Laboratory Results Short CBC 12/14/20 Range/Units 08:23 WBC 3.92 L (4.8-10.8) K/uL Hgb 13.2 L (14.0-18.0) g/dL Hct 39.7 L (42-52) % Plt Count 239 (130-400) K/uL BMP 12/14/20 08:23 Sodium 141 Potassium 4.8 Chloride 107 Carbon Dioxide 31 BUN 47 H Creatinine 1.35 D Glucose 92 Calcium 9.8
--- NOTE | 2020-12-14 15:34 | XRay Report ---
THORACIC SPINE 3 VIEWS HISTORY: fall, back pain COMPARISON: None. FINDINGS: No definite acute fracture or dislocation seen. Normal thoracic kyphosis is preserved. Minimal wedgin g of the thoracic vertebral bodies within upper-mid thoracic level which could be congenital. Extensive anterior osteophytes and syndesmophytes are seen. Mild intervertebral disc space narrowing is seen at the upper and lower thoracic level. Extensive lat eral osteophytes are also seen. IMPRESSION: No definite acute fracture or dislocation. Extensive thoracic anterior and lateral osteophytes which could represent degenerative process versus autoimmune etiology. Please correlate this findings with prior history. ACT 112: Negative or not required by law. Electronically signed by: Yasmine Stein DO 12/14/2020 3:32 PM
[2020-12-15] MEDS: HEPARIN SOD 5,000 UNIT/0.5 ML VIAL SQ SCH ×3 (05:21→21:44)
[2020-12-15] MEDS: ATORVASTATIN 40 MG TAB PO SCH (08:11)
[2020-12-15] MEDS: amLODIPine BESYLATE 5 MG TAB PO SCH (08:11)
[2020-12-15] MEDS: METOPROLOL SUCC 25MG EXT REL TAB PO SCH (08:11)
[2020-12-15] MEDS: ASPIRIN 81 MG ECTAB PO SCH (08:11)
[2020-12-15] MEDS: FUROSEMIDE 40 MG TAB PO SCH (08:12)
[2020-12-15] MEDS: LOSARTAN POTASSIUM 25 MG TAB PO SCH (08:12)
[2020-12-15] MEDS: CYANOCOBALAMIN 500 MCG TABLET (VITAMIN B-12) PO SCH (08:12)
[2020-12-15] MEDS: VENLAFAXINE HCL XR 150 MG CAPXR PO SCH (08:12)
[2020-12-15] MEDS: THIAMINE HCL 100 MG TAB PO SCH (08:12)
[2020-12-15] MEDS: MAGNESIUM CHLORIDE 64MG DELAYED REL TAB PO SCH ×2 (08:12→21:44)
[2020-12-15] MEDS: NICOTINE 14 MG/24 HR PATCH TD SCH (08:13)
[2020-12-15] MEDS: CLOTRIMAZOLE 1% CR 15 GM TUBE TOP SCH ×2 (08:13→21:59)
[2020-12-15] MEDS: MULTIVITAMIN TAB PO SCH (08:13)
[2020-12-15] MEDS: GABAPENTIN 300 MG CAP PO SCH ×2 (08:13→21:44)
[2020-12-15] MEDS: FOLIC ACID 1 MG TAB PO SCH (08:13)
[2020-12-15] MEDS: BUPRENORPHINE/NALOXONE 8/2 MG TAB SL SCH ×2 (08:18→21:45)
[2020-12-15 08:20] LABS: Partial Thromboplastin Ratio 1.7; Partial Thromboplastin Time 43.4 Seconds (21.0-31.0)
[2020-12-15 08:37] LABS: BUN Creatinine Ratio 32.6 (10-20); Calcium 9.9 mg/dl (8.5-10.1); Creatinine Clr Calc Pharmacy 70.5 ml/min; Est GFR (African American) 62.5 ml/min; Est GFR (Non-African American) 53.9 ml/min; Magnesium 1.8 mg/dl (1.8-2.4); Potassium 4.9 mmol/L (3.5-5.1)
[2020-12-15] MEDS: INSULIN ASPART 100 UNITS/ML 3 ML PEN SC SCH ×4 (09:08→21:46)
[2020-12-15] MEDS: INSULIN DETEMIR FLEXPEN/FLEX TOUCH 100 UNITS/ML 3ML SQ SCH ×2 (09:09→21:45)
--- NOTE | 2020-12-15 13:40 | Hospitalist Progress Note ---
Date of Service December 15, 2020 Assessment & Plan (1) Alcohol abuse: Plan: Failed recent inpatient rehabilitation within 2 weeks of discharge. He is back again to detox and try another rehab program. Case management is facilitating placement. (2) Alcohol withdrawal syndrome: Plan: Has been admitted since 12/02 with no evidence of alcohol withdrawal at this point. He continues on his Suboxone and PRN Ativan. Continue thiamine and folate daily. (3) Acute kidney injury: Plan: Recent baseline creatinine is around 1-1.1, up to 1.6 on 12/13 and furosemide and losartan were held Creatinine 1.3 12/14 -> 1.4 today Resume furosemide and losartan at lower doses Continue to monitor renal functions Likely has underlying CKD and this may be his new baseline (4) Transaminitis: Plan: Improved generally, likely related to recent alcohol use (5) Diabetes mellitus type 2 with complications: Plan: Pharmacy managing, currently euglycemic, continue with basal bolus insulin per pharmacy recommendations. Hgb A1c 8.2 (6) Tobacco use disorder: Plan: Continue NicoDerm patch (7) Chronic pain syndrome: Plan: Patient continues on Suboxone twice daily per home regimen. Had fall 12/13 in the bathroom, reporting mild increase in chronic mid back pain. Thoracic spine x-ray unremarkable. (8) Mood disorder: Plan: Continue same per home regimen. (9) CATALINO (obstructive sleep apnea): Plan: Records indicate patient is noncompliant with CPAP (10) HTN (hypertension): Plan: Chronic, controlled with current therapy including Norvasc 5 mg daily, furosemide 80 mg daily, losartan 50 mg daily, Toprol-XL 75 mg daily Due to ONDINA, furosemide and losartan were held, resumed at lower doses on 12/14 - furosemide 40 mg daily and losartan 25 mg daily (11) DVT prophylaxis: Plan: -SQ heparin (12) Discharge planning issues: Plan: -Awaiting acceptance to inpatient alcohol rehab program. Admission and Anticipated Discharge Date Admission Date: December 02, 2020 Supervising Physician Co-Signing Physician Notes Patient is seen and examined at bedside. Back pain is controlled. No new complaints. Denies any chest pain, shortness of breath, dizziness, nausea, abdominal pain. Waiting for alcohol rehab placement. On exam patient is moderately built and nourished, no apparent distress, normocephalic atraumatic, EOMI, normal breath sounds, clear to auscultation normal S1-S2, trace bilateral pedal edema, no murmur, abdomen soft, nontender, normal bowel sounds, alert, awake, oriented, grossly no focal deficits,+ tremor. Alcohol abuse, alcohol withdrawal syndrome Currently no evidence of withdrawal Continue thiamine, folic acid Waiting for rehab placement ONDINA Cr 1.4 today Monitor renal function while on losartan, Lasix Adjust medications as needed I personally reviewed the record. Patient is interviewed and examined at bedside. Patient's care is coordinated with Cate Altamirano MACHINE STRAP BUCKLER. Please refer to the documentation above for details of patient's presentation and for discussion of other issues. Subjective Patient seen and examined. Sitting at the edge of bed, no acute distress. Reports that chronic mid back pain remains slightly worsened from fall the other day. Offers no other complaints, eager to be discharged to rehab. Review of Systems Review of Systems: All systems reviewed & are unremarkable except as noted in Subjective Physical Exam Constitutional: WD/WN, vitals as above Respiratory: normal respiratory effort, lungs clear to auscultation Cardiovascular: Rate/Rhythm: regular rate and regular rhythm Vessels: normal peripheral pulses Extremities: + edema (+1 edema BLE) Musculoskeletal: no cyanosis or clubbing, extremities motor strength 5/5 Mid thoracic point tenderness Skin: no rashes, warm and dry Neurologic: no focal motor deficits Psychiatric: A+Ox3, euthymic affect Results & Data Results & Data ([facility]) Vital Signs (Past 12 Hours) Vital Signs Temp Pulse Pulse Resp BP 12/15/20 07:58 36.7 C 97 H 63 18 155/101 H Laboratory Results [facility] 12/15/20 07:13 Sodium 136 Potassium 4.9 Chloride 103 Carbon Dioxide 30 BUN 47 H Creatinine 1.44 H Glucose 166 H Calcium 9.9 Diagnostic Findings Thoracic Spine X-Ray 12/14/20 12:32 THORACIC SPINE 3 VIEWS HISTORY: fall, back pain COMPARISON: None. FINDINGS: No definite acute fracture or dislocation seen. Normal thoracic kyphosis is preserved. Minimal wedging of the thoracic vertebral bodies within upper-mid thoracic level which could be congenital. Extensive anterior osteophytes and syndesmophytes are seen. Mild intervertebral disc space narrowing is seen at the upper and lower thoracic level. Extensive lateral osteophytes are also seen. IMPRESSION: No definite acute fracture or dislocation. Extensive thoracic anterior and lateral osteophytes which could represent degen erative process versus autoimmune etiology. Please correlate this findings with prior history. ACT 112: Negative or not required by law. Electronically signed by: Yasmine Stein DO 12/14/2020 3:32 PM
[2020-12-16] MEDS: HEPARIN SOD 5,000 UNIT/0.5 ML VIAL SQ SCH ×3 (05:11→20:54)
[2020-12-16 07:08] LABS: Partial Thromboplastin Ratio 1.6; Partial Thromboplastin Time 42.5 Seconds (21.0-31.0)
[2020-12-16 07:29] LABS: BUN Creatinine Ratio 37.2 (10-20); Calcium 9.3 mg/dl (8.5-10.1); Creatinine Clr Calc Pharmacy 78.7 ml/min; Est GFR (African American) 71.4 ml/min; Est GFR (Non-African American) 61.6 ml/min; Potassium 4.8 mmol/L (3.5-5.1)
[2020-12-16] MEDS: INSULIN ASPART 100 UNITS/ML 3 ML PEN SC SCH ×5 (07:46→20:56)
[2020-12-16] MEDS: BUPRENORPHINE/NALOXONE 8/2 MG TAB SL SCH ×2 (08:17→20:52)
[2020-12-16] MEDS: CYANOCOBALAMIN 500 MCG TABLET (VITAMIN B-12) PO SCH (08:18)
[2020-12-16] MEDS: ASPIRIN 81 MG ECTAB PO SCH (08:18)
[2020-12-16] MEDS: LOSARTAN POTASSIUM 25 MG TAB PO SCH (08:18)
[2020-12-16] MEDS: NICOTINE 14 MG/24 HR PATCH TD SCH (08:18)
[2020-12-16] MEDS: VENLAFAXINE HCL XR 150 MG CAPXR PO SCH (08:19)
[2020-12-16] MEDS: amLODIPine BESYLATE 5 MG TAB PO SCH (08:19)
[2020-12-16] MEDS: FOLIC ACID 1 MG TAB PO SCH (08:19)
[2020-12-16] MEDS: MULTIVITAMIN TAB PO SCH (08:19)
[2020-12-16] MEDS: ATORVASTATIN 40 MG TAB PO SCH (08:19)
[2020-12-16] MEDS: CLOTRIMAZOLE 1% CR 15 GM TUBE TOP SCH ×2 (08:19→20:52)
[2020-12-16] MEDS: MAGNESIUM CHLORIDE 64MG DELAYED REL TAB PO SCH ×2 (08:20→20:52)
[2020-12-16] MEDS: THIAMINE HCL 100 MG TAB PO SCH (08:20)
[2020-12-16] MEDS: FUROSEMIDE 40 MG TAB PO SCH (08:20)
[2020-12-16] MEDS: GABAPENTIN 300 MG CAP PO SCH ×2 (08:20→20:53)
[2020-12-16] MEDS: METOPROLOL SUCC 25MG EXT REL TAB PO SCH (08:20)
[2020-12-16] MEDS: INSULIN DETEMIR FLEXPEN/FLEX TOUCH 100 UNITS/ML 3ML SQ SCH ×2 (08:55→20:57)
--- NOTE | 2020-12-16 11:06 | Cardiology Consultation ---
Date of Consultation December 16, 2020 Assessment & Plan (1) Alcohol abuse: (2) Alcohol withdrawal syndrome: (3) Abnormal electrocardiogram [ECG] [EKG]: (4) ASCVD (arteriosclerotic cardiovascular disease): (5) HTN (hypertension): (6) Dyslipidemia, goal LDL below 70: Stable cardiac signs and symptoms (No angina. Compensated volume status. Maintaining sinus rhythm.) Continue guideline directed medical therapy with beta-arnold (Metoprolol succinate), aspirin (81 mg/day), ACEI (Lisinopril), high intensity statin therapy (atorvastatin 80 mg/day) and as needed nitroglycerin. No cardiac contraindications to inpatient rehabilitation Supervising Physician Co-Signing Physician Notes Supervising Physician Attestation: I have personally performed a history and physical examination on the patient. I agree with the physician dental assistant medical assistant's findings and plan as documented with the following additions. Subjective: Patient describes no cardiac complaints. Volume status is stable. No recent angina. Exam: Temp Pulse Resp BP Pulse Ox 36.7 C 54 L 18 137/88 92 12/16/20 07:34 12/16/20 07:34 12/16/20 07:34 12/16/20 07:34 12/16/20 07:34 Cardiovascular regular rhythm, no murmurs, no edema Data: EKG performed today 12/16/2020 at 1002 and reviewed independently revealed normal sinus rhythm at 61 bpm, first-degree AV block, compared to the previous dated 12/02/2020 the premature ventricular contractions have resolved, incomplete right bundle branch block no longer present, sinus tachycardia resolved. Criteria for septal infarction no longer present. Assessment and Plan: Stable chronic coronary heart disease -I do not think the transient (perhaps rate related) incomplete right bundle branch block is suggestive of progression of his underlying coronary heart disease. -Patient is stable to proceed with alcohol rehabilitation, without need for further cardiac testing. He has chronic cardiac medications should be continued including aspirin 81 mg daily, atorvastatin 80 mg daily, metoprolol succinate 75 mg daily, losartan 25 mg daily, furosemide 40 mg daily. DVT prophylaxis: Subcutaneous heparin, 5000 units subcutaneous every 8 hours. Dontae Larry DO History of Present Illness Reason for Consultation: Cardiac evaluation, abnormal EKG Requesting Physician: Evelia Attending Physician: Alexsander History of Present Illness Complex 55-year-old male who was admitted to [facility] on December 02, 2020 secondary to alcoholism and withdrawal. Cardiology consultation requested on 12/16/2020 due to the abnormal EKG, for cardiac clearance prior to inpatient rehabilitation. EKG on initial presentation revealed sinus tachycardia at 100 bpm with occasional premature ventricular complexes, possible left atrial enlargement, incomplete right bundle branch block pattern, possible old septal infarct. QTc was 479 ms. EKG this morning, 12/16/2020 at 10:02:55 revealed sinus rhythm at 61 bpm with a first-degree AV block. QTc is 436 ms. The patient carries a history of ASCVD, presenting in December 2018 with angina, non-ST segment elevation myocardial infarction. Catheterization at that time revealed severe single-vessel coronary artery disease with a 95% acute proximal first obtuse marginal branch stenosis, undergoing PCI with a single drug-eluting stent at that time. In January 2020 he presented with significant dyspnea on exertion as well as volume overload, responding well to diuretic therapy. Ischemic evaluation at that time, via dobutamine stress echocardiography, showed no evidence of pharmacologically induced myocardial ischemia. The patient has not had any angina since initial presentation. He describes episodes of anxiety that are associated with shortness of breath and dizziness. He notes stable exertional dyspnea, with 1 flight of stairs. No pleuritic chest pain. No sustained palpitations. No lightheadedness, dizziness, or syncope. Cardiac history includes presentation in December 2018 with a non-ST segment elevation myocardial infarction. Cardiac catheterization performed by Dr. Guerrero at [facility] on January 01, 2019 revealed severe single- vessel coronary artery disease with a 95% acute proximal first obtuse marginal branch stenosis, undergoing PCI with a single drug-eluting stent at that time. Specific angiography revealed a short left main with luminal irregularities, moderate caliber LAD with 40 to 50% mid segment stenosis, small distal vessel with luminal irregularities, moderate caliber second diagonal branch with 20 to 30% proximal disease, large caliber left circumflex coronary artery with luminal irregularities in the mid segment, the 95% acute proximal stenosis, and a large caliber right coronary artery with mild diffuse mid segment disease, diffuse 50% disease, 50 to 60% ostial/proximal right PDA stenosis. Dobutamine stress echocardiography performed on January 23, 2020 showed no evidence of pharmacologically induced myocardial ischemia at 80% age-predicted maximum heart rate October 14, 2020 TTE interpretation summary ([facility], Dr. Castro): Technically limited study. Ejection fraction 55 to 60%. Moderate concentric LVH. Grade 1 diastolic dysfunction. Mild aortic valve sclerosis, without significant stenosis. Past Medical and Surgical History: ASCVD. Ischemic cardiomyopathy, resolved. Hypertension. Dyslipidemia. Type II diabetes mellitus. Anemia. Fatty liver. Cirrhosis. Depression. Anxiety. Alcoholism. Chronic tobacco abuse. COPD. Lumbago Family History: Notable for CAD in both grandfathers, both undergoing CABG. Maternal grandmother also with CAD. Social History: Smoker. Alcoholic. History of prior marijuana use. Disabled. Allergies Allergy/AdvReac Type Severity Reaction Status Date / Time No Known Allergies Allergy Verified 10/14/20 00:54 Home Medications Medication Instructions Recorded Confirmed Type insulin aspart U-100 100 unit/mL See Rx Instructions .ROUTE .COMPLEX 12/16/17 12/02/20 History (3 mL) subcutaneous pen (Novolog Flexpen U-100 Insulin aspart) aspirin 81 mg tablet,delayed 81 mg PO QAM 08/26/19 12/02/20 History release (Ecotrin Low Strength) buprenorphine 8 mg-naloxone 2 mg 1 tab SUBLINGUAL BID 01/16/20 12/02/20 History sublingual tablet folic acid 1 mg tablet 1 mg PO QAM 01/16/20 12/02/20 History gabapentin 300 mg capsule 300 mg PO BID #60 cap 03/07/20 12/02/20 Rx magnesium oxide 400 mg (241.3 mg 400 mg PO QAM #30 tab 03/07/20 12/02/20 Rx magnesium) tablet nicotine 21 mg/24 hr daily 21 mg TRANSDERMAL QAM #14 ea 03/07/20 12/02/20 Rx transdermal patch (Nicoderm CQ) thiamine HCl (vitamin B1) 100 mg 100 mg PO QAM #30 tab 03/07/20 12/02/20 Rx tablet (Vitamin B-1) albuterol sulfate 2.5 mg INHALATION QID PRN 07/24/20 12/02/20 History atorvastatin 80 mg tablet 80 mg PO DAILY 07/24/20 12/02/20 History clotrimazole 1 % topical cream 1 applic TOPICAL BID 07/24/20 12/02/20 History cyanocobalamin (vitamin B-12) 1,000 mcg PO DAILY 07/24/20 12/02/20 History 1,000 mcg tablet (Vitamin B-12) multivitamin 1 tab PO DAILY 07/24/20 12/02/20 History naloxone 0.4 mg/mL injection 0 mg INTRANASAL DIRECTED PRN 07/24/20 12/02/20 History solution nitroglycerin 0.4 mg sublingual 0.4 mg SUBLINGUAL DIRECTED PRN 07/24/20 12/02/20 History tablet (Nitrostat) semaglutide 1 mg/dose (2 mg/1.5 0.5 mg SUBCUT WK 07/24/20 12/02/20 History mL) subcutaneous pen injector (Ozempic) urea 20 % topical cream 1 applic TOPICAL BID 07/24/20 12/02/20 History disulfiram 500 mg tablet 500 mg PO DAILY #14 tab 08/04/20 12/02/20 Rx amlodipine 5 mg tablet (Norvasc) 5 mg PO QAM #30 tab 10/29/20 12/02/20 Rx furosemide 40 mg tablet 80 mg PO QAM #60 tab 10/29/20 12/02/20 Rx losartan 50 mg tablet 50 mg PO QAM #30 tab 10/29/20 12/02/20 Rx metoprolol succinate 50 mg 75 mg PO QAM 30 Days #45 tab 10/29/20 12/02/20 Rx tablet,extended release 24 hr (Toprol XL) insulin detemir U-100 100 unit/mL 45 unit SUBCUT HS 12/11/20 12/11/20 History (3 mL) subcutaneous pen (Levemir FlexTouch U-100 Insulin) venlafaxine 150 mg 150 mg PO DAILY 12/11/20 12/11/20 History capsule,extended release 24 hr Patient History Medical History Alcohol use disorder Bilateral edema of lower extremity Chronic anemia Diabetes mellitus type 2 with complications TONEY (dyspnea on exertion) Edema Elevated troponin HTN (hypertension) Mood disorder Neuropathy NSTEMI (non-ST elevated myocardial infarction) Obesity CATALINO (obstructive sleep apnea) CATALINO (obstructive sleep apnea) Proteinuria Smoking Tobacco use disorder Type 2 diabetes mellitus Surgical History History of cardiac catheterization 1 ELIESER to proximal OM by Dr. Guerrero on 01/01/19 History of lymph node biopsy Family History Other Heart disease Social History Smoking Status: Current every day smoker Tobacco Type: Cigarettes Years Smoked: 39; Cigarettes Per Day: 20; Second Hand Exposure: Yes; Hx Alcohol Use: Yes Alcohol type: hard liquor Alcohol type Comment: 12 gallon vodka a day Hx Substance Use: Yes Last Used Substance: Days (ago) Last Used Substance Other:: takes suboxone Substance Use Type Other:: suboxone taper Preferred Language: Irish Communication Ability: Effective Pathology Transcriptionist Required: No Beliefs That Will Affect Care: None marital status: Single Current Living Situation: Alone Current Living Situation Comment: Rv in friends driveway current occupational status: unemployed How many Children do You have: 2 Feels Safe at Home: Yes Assistive Devices: None Review of Systems Review of Systems: Complete Review of Systems: Constitutional:No fevers, sweats, or chills. HEENT: No amaurosis fugax. Pulmonary: COPD. CATALINO. Cardiac: See above. GI/Abd: Heartburn. Cirrhosis. + CKD. Vascular: No claudication. No history of AAA. Musculoskeletal: Chronic back pain. Skin: No rash. Neurologic: No history of TIA or CVA. Male : + BPH issues. Endocrine: T2DM x 26 years. Complete Review of Systems is as stated above, negative, or noncontributory. Physical Exam Physical Exam: General: A&Ox3. NAD. HENT: Normocephalic. Atraumatic. Eyes: PER. Conjunctiva pink, sclera clear. Neck: No carotid bruits. No overt JVD (examined in the bedside chair). No HJR. Heart: RRR. No murmur. No rub. No gallop. PMI is nondisplaced. Lungs: Diminished. Decreased. Clear to auscultation. Abdomen: +BS. Soft. Nontender. No masses or organomegaly. Extremities: Minimal pretibial edema. No clubbing. No cyanosis. Limited neurological examination is without focal deficits. + Tremor Pulses: radial=2/4, posterior tibial=1-2/4. Results & Data ([facility]) Vital Signs (Past 12 Hours) Vital Signs Temp Pulse Resp BP BP Pulse Ox 12/16/20 07:34 36.7 C 54 L 18 137/88 92 12/15/20 23:30 36.7 C 65 20 129/82 96 Laboratory Results Laboratory Results - last 24 hr 12/15/20 12/15/20 12/15/20 12:08 17:35 20:45 APTT PTT Ratio Sodium Potassium Chloride Carbon Dioxide Anion Gap BUN Creatinine Est Cr Clr Drug Dosing Est GFR ( Amer) Est GFR (Non-Af Amer) BUN/Creatinine Ratio Glucose POC Glucose 192 H 141 H 158 H Calcium Magnesium 12/16/20 12/16/20 12/16/20 06:26 06:26 07:25 APTT 42.5 H PTT Ratio 1.6 Sodium 135 L Potassium 4.8 Chloride 104 Carbon Dioxide 30 Anion Gap 1.0 L BUN 48 H Creatinine 1.29 Est Cr Clr Drug Dosing 78.7 Est GFR ( Amer) 71.4 Est GFR (Non-Af Amer) 61.6 BUN/Creatinine Ratio 37.2 H Glucose 148 H POC Glucose 152 H Calcium 9.3 Magnesium 2.0
--- NOTE | 2020-12-16 13:28 | Hospitalist Progress Note ---
Date of Service December 16, 2020 Assessment & Plan (1) Alcohol abuse: Plan: Failed recent inpatient rehabilitation within 2 weeks of discharge. He is back again to detox and try another rehab program. Case management is facilitating placement. (2) Alcohol withdrawal syndrome: Plan: Has been admitted since 12/02 with no evidence of alcohol withdrawal at this point. He continues on his Suboxone and PRN Ativan. Continue thiamine and folate daily. (3) Acute kidney injury: Plan: Recent baseline creatinine is around 1-1.1, up to 1.6 on 12/13 and furosemide and losartan were held Creatinine 1.3 12/14 -> 1.4 -> 1.2 today Furosemide and losartan resumed at lower doses on 12/14 Continue to monitor renal functions Likely has underlying CKD and this may be his new baseline (4) Transaminitis: Plan: Improved generally, likely related to recent alcohol use (5) Diabetes mellitus type 2 with complications: Plan: Pharmacy managing, currently euglycemic, continue with basal bolus insulin per pharmacy recommendations. Hgb A1c 8.2 (6) Tobacco use disorder: Plan: Continue NicoDerm patch (7) Chronic pain syndrome: Plan: Patient continues on Suboxone twice daily per home regimen. Had fall 12/13 in the bathroom, reporting mild increase in chronic mid back pain. Thoracic spine x-ray unremarkable. (8) Mood disorder: Plan: Continue same per home regimen. (9) CATALINO (obstructive sleep apnea): Plan: Records indicate patient is noncompliant with CPAP (10) HTN (hypertension): Plan: Chronic, controlled with current therapy including Norvasc 5 mg daily, furosemide 80 mg daily, losartan 50 mg daily, Toprol-XL 75 mg daily Due to ONDINA, furosemide and losartan were held, resumed at lower doses on 12/14 - furosemide 40 mg daily and losartan 25 mg daily (11) DVT prophylaxis: Plan: -SQ heparin (12) Discharge planning issues: Plan: -Awaiting acceptance to inpatient alcohol rehab program. -Case management reported that [facility] may accept patient pending cardiac evaluation. Cardiology consulted, case discussed with Dr. Larry. Admission and Anticipated Discharge Date Admission Date: December 02, 2020 Supervising Physician Co-Signing Physician Notes Patient seen and examined. Patient has no new complaints. I agree with Cate STUBBS's findings CM working on placement Patient will benefit from alcohol rehab as he has multiple hospitalizations in the past year for the same problem and always have difficulties finding rehab to take him. Subjective Patient seen and examined. Sitting at the edge of the bed. Eager to be discharged to inpatient rehab. Offers no complaints. Physical Exam Constitutional: WD/WN, vitals as above Respiratory: normal respiratory effort, lungs clear to auscultation Cardiovascular: Rate/Rhythm: regular rate and regular rhythm Vessels: normal peripheral pulses Extremities: + edema (Trace edema BLE) Skin: no rashes, warm and dry Neurologic: no focal motor deficits Psychiatric: A+Ox3, euthymic affect Results & Data Results & Data ([place]) Vital Signs (Past 12 Hours) Vital Signs Temp Pulse Resp BP Pulse Ox 12/16/20 07:34 36.7 C 54 L 18 137/88 92 Laboratory Results [facility] 12/16/20 06:26 Sodium 135 L Potassium 4.8 Chloride 104 Carbon Dioxide 30 BUN 48 H Creatinine 1.29 Glucose 148 H Calcium 9.3
--- NOTE | 2020-12-17 05:33 | Electrocardiogram Report ---
Test Reason : Blood Pressure : / mmHG Vent. Rate : 061 BPM Atrial Rate : 061 BPM P-R Int : 212 ms QRS Dur : 104 ms QT Int : 434 ms P-R-T Axes : 049 -09 056 degrees QTc Int : 436 ms Sinus rhythm with 1st degree A-V block Otherwise normal ECG When compared with ECG of 02-DEC-2020 15:03, Premature ventricular complexes are no longer Present Vent. rate has decreased BY 39 BPM Incomplete right bundle branch block is no longer Present Criteria for Septal infarct are no longer Present Confirmed by Dandre Lea ([id number]) on 12/17/2020 5:33:10 AM Referred By: REFERRED SELF Confirmed By:Dandre Lea
[2020-12-17] MEDS: HEPARIN SOD 5,000 UNIT/0.5 ML VIAL SQ SCH ×3 (06:27→21:43)
[2020-12-17 07:58] LABS: Hemoglobin 12.3 g/dL (14.0-18.0); Mean Corpuscular Hemoglobin 30.8 pg (25-34); Mean Corpuscular Hgb Conc 33.2 g/dL (32-36); Mean Corpuscular Volume 92.5 fL (80-100); Mean Platelet Volume 10.4 fL (7.4-10.4); Platelet Count 235 K/uL (130-400); RDW Coefficient of Variation 12.5 % (11.5-14.5); RDW Standard Deviation 42.4 fL (36.4-46.3); White Blood Count 4.65 K/uL (4.8-10.8)
[2020-12-17] MEDS: FOLIC ACID 1 MG TAB PO SCH (08:08)
[2020-12-17] MEDS: GABAPENTIN 300 MG CAP PO SCH ×2 (08:08→21:43)
[2020-12-17] MEDS: LOSARTAN POTASSIUM 25 MG TAB PO SCH (08:09)
[2020-12-17] MEDS: ASPIRIN 81 MG ECTAB PO SCH (08:09)
[2020-12-17] MEDS: VENLAFAXINE HCL XR 150 MG CAPXR PO SCH (08:09)
[2020-12-17] MEDS: ATORVASTATIN 40 MG TAB PO SCH (08:09)
[2020-12-17] MEDS: METOPROLOL SUCC 25MG EXT REL TAB PO SCH (08:09)
[2020-12-17] MEDS: MULTIVITAMIN TAB PO SCH (08:09)
[2020-12-17] MEDS: CYANOCOBALAMIN 500 MCG TABLET (VITAMIN B-12) PO SCH (08:09)
[2020-12-17] MEDS: FUROSEMIDE 40 MG TAB PO SCH (08:09)
[2020-12-17 08:10] LABS: Partial Thromboplastin Ratio 1.7; Partial Thromboplastin Time 43.6 Seconds (21.0-31.0)
[2020-12-17] MEDS: NICOTINE 14 MG/24 HR PATCH TD SCH (08:10)
[2020-12-17] MEDS: amLODIPine BESYLATE 5 MG TAB PO SCH (08:10)
[2020-12-17] MEDS: THIAMINE HCL 100 MG TAB PO SCH (08:10)
[2020-12-17] MEDS: MAGNESIUM CHLORIDE 64MG DELAYED REL TAB PO SCH ×2 (08:10→21:42)
[2020-12-17] MEDS: CLOTRIMAZOLE 1% CR 15 GM TUBE TOP SCH ×2 (08:11→21:43)
[2020-12-17] MEDS: INSULIN DETEMIR FLEXPEN/FLEX TOUCH 100 UNITS/ML 3ML SQ SCH (09:35)
[2020-12-17] MEDS: INSULIN ASPART 100 UNITS/ML 3 ML PEN SC SCH ×4 (09:37→21:49)
[2020-12-17] MEDS: BUPRENORPHINE/NALOXONE 8/2 MG TAB SL SCH ×2 (09:38→21:42)
--- NOTE | 2020-12-17 11:01 | Hospitalist Progress Note ---
Date of Service December 17, 2020 Assessment & Plan (1) Alcohol abuse: Plan: Failed recent inpatient rehabilitation within 2 weeks of discharge. He is back again to detox and try another rehab program. Case management is facilitating placement. (2) Alcohol withdrawal syndrome: Plan: Has been admitted since 12/02 with no evidence of alcohol withdrawal at this point. He continues on his Suboxone and PRN Ativan. Continue thiamine and folate daily. (3) Acute kidney injury: Plan: Recent baseline creatinine is around 1-1.1, up to 1.6 on 12/13 and furosemide and losartan were held Creatinine 1.3 12/14 -> 1.4 -> 1.2 today Furosemide and losartan resumed at lower doses on 12/14 Continue to monitor renal functions Likely has underlying CKD and this may be his new baseline (4) Transaminitis: Plan: Improved generally, likely related to recent alcohol use (5) Diabetes mellitus type 2 with complications: Plan: Pharmacy managing, currently euglycemic, continue with basal bolus insulin per pharmacy recommendations. Hgb A1c 8.2 (6) Tobacco use disorder: Plan: Continue NicoDerm patch (7) Chronic pain syndrome: Plan: Patient continues on Suboxone twice daily per home regimen. Had fall 12/13 in the bathroom, reporting mild increase in chronic mid back pain. Thoracic spine x-ray unremarkable. (8) Mood disorder: Plan: Continue same per home regimen (9) CATALINO (obstructive sleep apnea): Plan: Records indicate patient is noncompliant with CPAP (10) HTN (hypertension): Plan: Chronic, controlled with current therapy including Norvasc 5 mg daily, furosemide 80 mg daily, losartan 50 mg daily, Toprol-XL 75 mg daily Due to ONDINA, furosemide and losartan were held, resumed at lower doses on 12/14 - furosemide 40 mg daily and losartan 25 mg daily (11) DVT prophylaxis: Plan: SQ heparin (12) Discharge planning issues: Plan: Awaiting acceptance to inpatient alcohol rehab program. Case management reported that [facility] facility may accept patient pending cardiac evaluation. Cardiology consulted, case discussed with Dr. Larry Patient seen in collaboration with Dr. Beltre. Please see addendum. Admission and Anticipated Discharge Date Admission Date: December 02, 2020 Supervising Physician Co-Signing Physician Notes Patient seen and examined. Patient has no new complaints. CM working on placement Patient will benefit from alcohol rehab as he has multiple hospitalizations in the past year for the same problem and always have difficulties finding rehab to take him. Agree with plans as detailed by Katherine Velasquez PA-C Subjective Patient seen and examined in 379-2. Sitting at the edge of the bed. Eager to be discharged to inpatient rehab. Feeling anxious about finances. Tremors with movement but no agitation, palpitations. No fever, chills, lightheadedness, CP, SOB, nausea, vomiting, abdominal pain, dysuria, diarrhea or constipation. Review of Systems Review of Systems: At least ten systems were reviewed and negative except as indicated in HPI above. Physical Exam Physical Exam: General Appearance: WD/WN, vitals as above, NAD, sitting up in bed, conversing easily, bilateral tremoring of hands Head: normocephalic, atraumatic Eyes: normal inspection, PERRL, conjunctivae normal, anicteric sclerae ENT: external ear and nose normal, oropharynx normal Neck: normal visual inspection, trachea midline, no thyromegaly Respiratory: normal respiratory effort, lungs clear to auscultation, no wheeze, rales, rhonchi. No accessory muscle use Cardiovascular: regular rate, rhythm, no murmur, normal peripheral pulses, no BLE edema. Vessels: no JVD Chest: normal inspection of chest Abdomen/GI: normal bowel sounds, soft, nontender, no hepatosplenomegaly Extremities/Musculoskeletal: no cyanosis or clubbing, extremities motor strength 5/5 Neurologic: PERRL, EOMI, accommodation nl, no face palsy, no dysarthria, CN's II-XI intact bilaterally and moves all extremities Psychiatric: A+Ox3, anxious Skin: no rashes, normal color, warm/dry Results & Data Results & Data ([facility]) Vital Signs (Past 12 Hours) Vital Signs Temp Pulse Resp BP Pulse Ox 12/17/20 08:16 36.5 C 65 16 147/87 H 99 Laboratory Results Short CBC 12/17/20 Range/Units 07:36 WBC 4.65 L (4.8-10.8) K/uL Hgb 12.3 L (14.0-18.0) g/dL Hct 37.0 L (42-52) % Plt Count 235 (130-400) K/uL Diagnostic Findings Head CT 12/02/20 14:22 CT head/brain wo con CLINICAL HISTORY: 55 years-old Male with fall. Acute head trauma status post fall TECHNIQUE: Multiple axial CT images of the head were obtained without contrast. A dose lowering technique was utilized adhering to the principles of ALARA. CT DOSE: 1035.81 mGycm COMPARISON: Head CT 02/02/2017 FINDINGS: No acute intracranial hemorrhage, midline shift, intra-axial mass, hydrocephalus, territorial ischemia or abnormal extra-axial collection. Calcifications of the falx cerebri. Possible small colloid cyst versus choroid plexus of the third ventricle measures 3 mm on image 17 series 2. Cerebral vascular calcifications. The calvarium is intact. Mastoid air cells are clear. Mild mucosal thickening of the ethmoid and maxillary sinuses. Unremarkable soft tissues and orbits. IMPRESSION: No acute intracranial abnormality or calvarial fracture. ACT 112: Negative or not required by law. The above report was generated using voice recognition software. It may contain grammatical, syntax or spelling errors. Electronically signed by: Suhas Ramos M.D. 12/02/2020 4:38 PM Thoracic Spine X-Ray 12/14/20 12:32 THORACIC SPINE 3 VIEWS HISTORY: fall, back pain COMPARISON: None. FINDINGS: No definite acute fracture or dislocation seen. Normal thoracic kyphosis is preserved. Minimal wedging of the thoracic vertebral bodies within upper-mid thoracic level which could be congenital. Extensive anterior osteophytes and syndesmophytes are seen. Mild intervertebral disc space narrowing is seen at the upper and lower thoracic level. Extensive lateral osteophytes are also seen. IMPRESSION: No definite acute fracture or dislocation. Extensive thoracic anterior and lateral osteophytes which could represent degenerative process versus autoimmune etiology. Please correlate this findings with prior history. ACT 112: Negative or not required by law. Electronically signed by: Yasmine Stein DO 12/14/2020 3:32 PM
--- NOTE | 2020-12-17 14:35 | Pharmacy Report ---
Pharmacy Glycemic Short Note 2 - Date of Service December 17, 2020 - Glycemic Short BSG Results (Last 24 hours): 12/16/20 12/16/20 12/17/20 17:13 20:54 08:29 POC Glucose 130 H 188 H 193 H 12/17/20 12:12 POC Glucose 194 H OUTPATIENT ANTIDIABETIC REGIMEN: * Levemir 45 units SQ HS, Novolog SS * Prescribed Ozempic - pt reports not taking * A1c = 8.2% (12/03/20) ASSESSMENT: 12/16: * Dewayne demonstrated good glycemic control yesterday on 112 units of insulin (65 units basal and 47 units bolus) * Fasting BSG elevated today. His basal insulin has ranged from 60-80 units per day since 12/12. It appears that 70 units per day works well for him, therefore I will order set dose of 35 units BID. * Continue current Novolog orders 12/14: * Patient received total of 125 units of insulin yesterday, of which 70 units are basal * Fasting BSG 96 mg/dL - continue with basal scale, may decrease parameters slightly * No change to CF/CR 12/13: * Fasting BSG at goal after receiving 80 units of basal insulin 12/12 * BSG trending up throughout the day, therefore will increase novolog 12/11: * Observed trend during this admission and prior ones of low BSGs at dinnertime with elevated fasting BSGs * This trend may possibly be related to increased dose of Levemir in the morning and insufficient ramirez in evening, so will trial lowering morning basal and increase evening basal 12/10: * BSGs yesterday of 170, 239, 178, and 176 mg/dL * Received 91 units of insulin (57 units of Levemir and 34 units of Novolog) * Novolog parameters tightened yesterday, will further tighten today * Fasting BSG of 250 mg/dL, will utilize Lantus scale at HS to provide increase dose this evening 12/03 * Dewayne is a 55 yo T2DM admitted for alcohol abuse and request for detox * He is know to the glycemic service from previous admissions * He had severe hyperglycemia on admission followed by 24 hours of BSGs below goal after receiving two doses of Levemir 45 units and a large dose of 15 units of Novolog on 12/02 pm * Fasting significantly elevated today. Will add bedtime dose of Levemir (pt has required BID dosing in the past due to levemir not lasting 24 hours). * Novolog loosened after patient had yet another hypoglycemic episode at lunch (BSG = 59 mg/dL) PLAN FOR INPATIENT GLYCEMIC CONTROL: * Hold outpatient oral diabetes medications * Basal insulin * Levemir 35 units SC BID * Bolus insulin * NovoLog per scale ACHS or Q6hrs while NPO * Goal Range: Low 100 mg/dL - High 140 mg/dL * Correction Factor: 25 mg/dL/unit * Nutritional / Prandial insulin per carb ratio of 1 unit per 5 grams CHO consumed PLAN FOR DISCHARGE: * Reasonable to continue current outpatient insulin doses on discharge * Patient was reportedly to start Ozempic as an outpatient, but never did * Patient may benefit from this addition, encourage patient to follow-up with outpatient provider in regards to this
[2020-12-17] MEDS ORDERED: INSULIN DETEMIR FLEXPEN/FLEX TOUCH 100 UNITS/ML 3ML SQ SCH (21:00)
[2020-12-18] MEDS: HEPARIN SOD 5,000 UNIT/0.5 ML VIAL SQ SCH ×3 (05:41→21:03)
[2020-12-18 07:18] LABS: Partial Thromboplastin Ratio 1.6; Partial Thromboplastin Time 41.4 Seconds (21.0-31.0)
[2020-12-18 07:33] LABS: BUN Creatinine Ratio 33.8 (10-20); Calcium 9.4 mg/dl (8.5-10.1); Est GFR (Non-African American) 54.4 ml/min; Potassium 5.3 mmol/L (3.5-5.1)
[2020-12-18] MEDS ORDERED: INSULIN DETEMIR FLEXPEN/FLEX TOUCH 100 UNITS/ML 3ML SQ ONE (08:30)
[2020-12-18] MEDS: THIAMINE HCL 100 MG TAB PO SCH (08:45)
[2020-12-18] MEDS: GABAPENTIN 300 MG CAP PO SCH ×2 (08:46→21:02)
[2020-12-18] MEDS: MAGNESIUM CHLORIDE 64MG DELAYED REL TAB PO SCH ×2 (08:46→21:03)
[2020-12-18] MEDS: CYANOCOBALAMIN 500 MCG TABLET (VITAMIN B-12) PO SCH (08:46)
[2020-12-18] MEDS: MULTIVITAMIN TAB PO SCH (08:46)
[2020-12-18] MEDS: METOPROLOL SUCC 25MG EXT REL TAB PO SCH (08:47)
[2020-12-18] MEDS: amLODIPine BESYLATE 5 MG TAB PO SCH (08:48)
[2020-12-18] MEDS: ATORVASTATIN 40 MG TAB PO SCH (08:48)
[2020-12-18] MEDS: FUROSEMIDE 40 MG TAB PO SCH (08:49)
[2020-12-18] MEDS: ASPIRIN 81 MG ECTAB PO SCH (08:49)
[2020-12-18] MEDS: FOLIC ACID 1 MG TAB PO SCH (08:49)
[2020-12-18] MEDS: VENLAFAXINE HCL XR 150 MG CAPXR PO SCH (08:49)
[2020-12-18] MEDS: CLOTRIMAZOLE 1% CR 15 GM TUBE TOP SCH ×2 (08:51→21:01)
[2020-12-18] MEDS: NICOTINE 14 MG/24 HR PATCH TD SCH (08:51)
[2020-12-18] MEDS: BUPRENORPHINE/NALOXONE 8/2 MG TAB SL SCH ×2 (08:59→21:12)
[2020-12-18] MEDS: INSULIN ASPART 100 UNITS/ML 3 ML PEN SC SCH ×4 (09:07→20:59)
--- NOTE | 2020-12-18 10:51 | Hospitalist Progress Note ---
Date of Service December 18, 2020 Assessment & Plan (1) Alcohol abuse: Plan: Failed recent inpatient rehabilitation within 2 weeks of discharge. He is back again to detox and try another rehab program. Case management is facilitating placement. (2) Alcohol withdrawal syndrome: Plan: Has been admitted since 12/02 with no evidence of alcohol withdrawal at this point. He continues on his Suboxone and PRN Ativan. Continue thiamine and folate daily. (3) Acute kidney injury: Plan: Recent baseline creatinine is around 1-1.1, but previously mid-1s Has underlying CKD, difficult to assess current baseline Cr increased to 1.6 on 12/13 and furosemide and losartan were held Creatinine 1.3 12/14 -> 1.4 -> 1.2 Furosemide and losartan resumed at lower doses on 12/14 Cr up to 1.43 today - Check mag, hold losartan, continue lasix for now Repeat BMP tomorrow (4) Transaminitis: Plan: Improved generally, likely related to recent alcohol use (5) Diabetes mellitus type 2 with complications: Plan: Pharmacy managing, currently euglycemic, continue with basal bolus insulin per pharmacy recommendations. Hgb A1c 8.2 (6) Tobacco use disorder: Plan: Continue NicoDerm patch (7) Chronic pain syndrome: Plan: Patient continues on Suboxone twice daily per home regimen. Had fall 12/13 in the bathroom, reporting mild increase in chronic mid back pain. Thoracic spine x-ray unremarkable. (8) Mood disorder: Plan: Continue same per home regimen (9) CATALINO (obstructive sleep apnea): Plan: Records indicate patient is noncompliant with CPAP (10) HTN (hypertension): Plan: Chronic, controlled with current therapy including Norvasc 5 mg daily, furosemide 80 mg daily, losartan 50 mg daily, Toprol-XL 75 mg daily Due to ONDINA, furosemide and losartan were held, resumed at lower doses on 12/14 - furosemide 40 mg daily and losartan 25 mg daily Holding losartan due to hyperkalemia Currently on Norvasc 5mg, Lasix 40mg Monitor BP, consider increasing norvasc to 10mg if elevated (11) DVT prophylaxis: Plan: SQ heparin (12) Discharge planning issues: Plan: Awaiting acceptance to inpatient alcohol rehab program. Case management reported that [facility] may accept patient pending cardiac evaluation. Cardiology consulted, case discussed with Dr. Larry Patient seen in collaboration with Dr. Beltre. Please see addendum. Admission and Anticipated Discharge Date Admission Date: December 02, 2020 Supervising Physician Co-Signing Physician Notes Patient seen and examined. Patient has no new complaints. Lab today notable for K 5.3. Cr 1.43 Hold losartan for now Continue lasix Patient has CKD with wildly fluctuating Cr over past few months CM working on placement Patient will benefit from alcohol rehab as he has multiple hospitalizations in t he past year for the same problem and always have difficulties finding rehab to take him. Agree with plans as detailed by Katherine Velasquez PA-C Subjective Patient seen and examined in 379-2. Feeling less anxious today. Eager to be discharged to inpatient rehab. No new compaints. No fever, chills, lightheadedness, CP, SOB, nausea, vomiting, abdominal pain, dysuria, diarrhea or constipation. Review of Systems Review of Systems: At least ten systems were reviewed and negative except as indicated in HPI above. Physical Exam Physical Exam: General Appearance: WD/WN, vitals as above, NAD, sitting up in bed, conversing easily, bilateral tremoring of hands Head: normocephalic, atraumatic Eyes: normal inspection, PERRL, conjunctivae normal, anicteric sclerae ENT: external ear and nose normal, oropharynx normal Neck: normal visual inspection, trachea midline, no thyromegaly Respiratory: normal respiratory effort, lungs clear to auscultation, no wheeze, rales, rhonchi. No accessory muscle use Cardiovascular: regular rate, rhythm, no murmur, normal peripheral pulses, no BLE edema. Vessels: no JVD Chest: normal inspection of chest Abdomen/GI: normal bowel sounds, soft, nontender, no hepatosplenomegaly Extremities/Musculoskeletal: no cyanosis or clubbing, extremities motor strength 5/5 Neurologic: PERRL, EOMI, accommodation nl, no face palsy, no dysarthria, CN's II-XI intact bilaterally and moves all extremities Psychiatric: A+Ox3, anxious Skin: no rashes, normal color, warm/dry Results & Data Results & Data ([facility]) Vital Signs (Past 12 Hours) Vital Signs Temp Pulse Pulse Resp BP Pulse Ox 12/18/20 08:45 66 144/89 H 12/18/20 07:00 36.9 C 74 16 138/87 97 Laboratory Results BMP 12/18/20 06:52 Sodium 134 L Potassium 5.3 H Chloride 102 Carbon Dioxide 31 BUN 48 H Creatinine 1.43 H Glucose 196 H Calcium 9.[address] 12/02/20 14:22 CT head/brain wo con CLINICAL HISTORY: 55 years-old Male with fall. Acute head trauma status post fall TECHNIQUE: Multiple axial CT images of the head were obtained without contrast. A dose lowering technique was utilized adhering to the principles of ALARA. CT DOSE: 1035.81 mGycm COMPARISON: Head CT 02/02/2017 FINDINGS: No acute intracranial hemorrhage, midline shift, intra-axial mass, hydrocephalus, territorial ischemia or abnormal extra-axial collection. Calcifications of the falx cerebri. Possible small colloid cyst versus choroid plexus of the third ventricle measures 3 mm on image 17 series 2. Cerebral va scular calcifications. The calvarium is intact. Mastoid air cells are clear. Mild mucosal thickening of the ethmoid and maxillary sinuses. Unremarkable soft tissues and orbits. IMPRESSION: No acute intracranial abnormality or calvarial fracture. ACT 112: Negative or not required by law. The above report was generated using voice recognition software. It may contain grammatical, syntax or spelling errors. Electronically signed by: Suhas Ramos M.D. 12/02/2020 4:38 PM Thoracic Spine X-Ray 12/14/20 12:32 THORACIC SPINE 3 VIEWS HISTORY: fall, back pain COMPARISON: None. FINDINGS: No definite acute fracture or dislocation seen. Normal thoracic kyphosis is preserved. Minimal wedging of the thoracic vertebral bodies within upper-mid thoracic level which could be congenital. Extensive anterior osteophytes and syndesmophytes are seen. Mild intervertebral disc space narrowing is seen at the upper and lower thoracic level. Extensive lateral osteophytes are also seen. IMPRESSION: No definite acute fracture or dislocation. Extensive thoracic anterior and lateral osteophytes which could represent degenerative process versus autoimmune etiology. Please correlate this findings with prior history. ACT 112: Negative or not required by law. Electronically signed by: Yasmine Stein DO 12/14/2020 3:32 PM
--- NOTE | 2020-12-18 15:13 | Pharmacy Report ---
Pharmacy Glycemic Short Note 2 - Date of Service December 18, 2020 - Glycemic Short BSG Results (Last 24 hours): 12/17/20 12/17/20 12/18/20 17:29 20:21 06:52 Glucose 196 H POC Glucose 79 208 H 12/18/20 12/18/20 08:10 12:24 Glucose POC Glucose 270 H 209 H OUTPATIENT ANTIDIABETIC REGIMEN: * Levemir 45 units SQ HS, Novolog SS * Prescribed Ozempic - pt reports not taking * A1c = 8.2% (12/03/20) ASSESSMENT: 12/17: * Majority of BSGs over the past 24 hours have been above goal despite receiving a similar amount of insulin over the past several days. * Fasting BSG of 270 mg/dL. Basal insulin was increased from 65 to 70 units yesterday. Will increase to total dose of 80 units today and reassess 12/19. * Tighten carb coverage and loosen correction to avoid hypoglycemia following large doses of correction 12/16: * Dewayne demonstrated good glycemic control yesterday on 112 units of insulin (65 units basal and 47 units bolus) * Fasting BSG elevated today. His basal insulin has ranged from 60-80 units per day since 12/12. It appears that 70 units per day works well for him, therefore I will order set dose of 35 units BID. * Continue current Novolog orders 12/14: * Patient received total of 125 units of insulin yesterday, of which 70 units are basal * Fasting BSG 96 mg/dL - continue with basal scale, may decrease parameters slightly * No change to CF/CR 12/13: * Fasting BSG at goal after receiving 80 units of basal insulin 12/12 * BSG trending up throughout the day, therefore will increase novolog 12/11: * Observed trend during this admission and prior ones of low BSGs at dinnertime with elevated fasting BSGs * This trend may possibly be related to increased dose of Levemir in the morning and insufficient ramirez in evening, so will trial lowering morning basal and increase evening basal 12/10: * BSGs yesterday of 170, 239, 178, and 176 mg/dL * Received 91 units of insulin (57 units of Levemir and 34 units of Novolog) * Novolog parameters tightened yesterday, will further tighten today * Fasting BSG of 250 mg/dL, will utilize Lantus scale at HS to provide increase dose this evening 12/03 * Dewayne is a 55 yo T2DM admitted for alcohol abuse and request for detox * He is know to the glycemic service from previous admissions * He had severe hyperglycemia on admission followed by 24 hours of BSGs below goal after receiving two doses of Levemir 45 units and a large dose of 15 units of Novolog on 12/02 pm * Fasting significantly elevated today. Will add bedtime dose of Levemir (pt has required BID dosing in the past due to levemir not lasting 24 hours). * Novolog loosened after patient had yet another hypoglycemic episode at lunch (BSG = 59 mg/dL) PLAN FOR INPATIENT GLYCEMIC CONTROL: * Hold outpatient oral diabetes medications * Basal insulin * Levemir 40 units SC BID * Bolus insulin * NovoLog per scale ACHS or Q6hrs while NPO * Goal Range: Low 100 mg/dL - High 140 mg/dL * Correction Factor: 25 mg/dL/unit * Nutritional / Prandial insulin per carb ratio of 1 unit per 4 grams CHO consumed PLAN FOR DISCHARGE: * Reasonable to continue current outpatient insulin doses on discharge * Patient was reportedly to start Ozempic as an outpatient, but never did * Patient may benefit from this addition, encourage patient to follow-up with outpatient provider in regards to this
[2020-12-18] MEDS ORDERED: INSULIN DETEMIR FLEXPEN/FLEX TOUCH 100 UNITS/ML 3ML SQ SCH (21:00)
[2020-12-19] MEDS: HEPARIN SOD 5,000 UNIT/0.5 ML VIAL SQ SCH ×3 (06:19→21:08)
[2020-12-19] MEDS: INSULIN ASPART 100 UNITS/ML 3 ML PEN SC SCH ×4 (09:48→20:58)
[2020-12-19] MEDS: CLOTRIMAZOLE 1% CR 15 GM TUBE TOP SCH ×2 (09:55→21:08)
[2020-12-19] MEDS: amLODIPine BESYLATE 5 MG TAB PO SCH (09:56)
[2020-12-19] MEDS: CYANOCOBALAMIN 500 MCG TABLET (VITAMIN B-12) PO SCH (09:56)
[2020-12-19] MEDS: METOPROLOL SUCC 25MG EXT REL TAB PO SCH (09:56)
[2020-12-19] MEDS: MAGNESIUM CHLORIDE 64MG DELAYED REL TAB PO SCH ×2 (09:57→21:07)
[2020-12-19] MEDS: THIAMINE HCL 100 MG TAB PO SCH (09:57)
[2020-12-19] MEDS: MULTIVITAMIN TAB PO SCH (09:57)
[2020-12-19] MEDS: FOLIC ACID 1 MG TAB PO SCH (09:58)
[2020-12-19] MEDS: VENLAFAXINE HCL XR 150 MG CAPXR PO SCH (09:58)
[2020-12-19] MEDS: ATORVASTATIN 40 MG TAB PO SCH (09:58)
[2020-12-19] MEDS: FUROSEMIDE 40 MG TAB PO SCH (09:58)
[2020-12-19] MEDS: ASPIRIN 81 MG ECTAB PO SCH (09:59)
[2020-12-19] MEDS: GABAPENTIN 300 MG CAP PO SCH ×2 (09:59→21:07)
[2020-12-19] MEDS: NICOTINE 14 MG/24 HR PATCH TD SCH (10:00)
[2020-12-19] MEDS: BUPRENORPHINE/NALOXONE 8/2 MG TAB SL SCH ×2 (10:03→21:05)
[2020-12-19 11:10] LABS: Partial Thromboplastin Ratio 1.4; Partial Thromboplastin Time 37.6 Seconds (21.0-31.0)
[2020-12-19 11:24] LABS: BUN Creatinine Ratio 37.6 (10-20); Calcium 9.3 mg/dl (8.5-10.1); Creatinine Clr Calc Pharmacy 76.3 ml/min; Est GFR (African American) 68.8 ml/min; Est GFR (Non-African American) 59.3 ml/min; Magnesium 1.8 mg/dl (1.8-2.4); Potassium 4.8 mmol/L (3.5-5.1)
--- NOTE | 2020-12-19 12:00 | Discharge Summary ---
Date of Service December 19, 2020 Discharge Data Allergies Allergy/AdvReac Type Severity Reaction Status Date / Time No Known Allergies Allergy Verified 10/14/20 00:54 Consultations 12/02/20 20:13 ED Decision to Admit Stat 12/16/20 10:00 Consult Cardiology Routine Ordered Studies 12/02/20 14:22 CT head/brain wo con Stat Discharge Plan Discharge Items Patient Disposition: Home - Self-Care Reason For Visit: DETOX REQUEST Discharge Diagnosis: Alcohol abuse CKD3 Activity: Resume your previous activity Non-emergency contact: Primary Care Provider and Temper Mill Operator Call non-emergency contact if: you have any medication questions Follow-up/Referrals: Charity Kasper MD [Primary Care Provider] - Diet: Carb Consistent or DM2, Heart Healthy and Low Sodium (2gm) Addtl Attending Provider Instructions: Mr. Dillard You came to the hospital requesting help with your alcohol abuse. You were managed in the hospital for alcohol withdrawal. Several attempts were made to get you into inpatient rehab at multiple facilities. However, all these declined by the facilities. You are being discharged to follow-up with your [facility] district recruiter who will continue to look into resources in rehab facilities for you. Please utilize resources provided by me and the case management assistant today. Due to elevated potassium level and kidney function, your home losartan suspended for now. Please stop taking this for now. Your Lasix was also reduced to 40 mg daily. Your amlodipine was increased to 10 mg daily for now for better blood pressure control. It is very important that you follow-up with your primary doctor who will continue to monitor adjust medication as needed. It was a pleasure taking care of you. Pending Studies at Discharge: No Stand-Alone Forms: My [facility], Smoking Cessation Medications and DC Order Prescriptions: Continued insulin aspart U-100 [Novolog Flexpen U-100 Insulin] 100 unit/mL Insulin Pen See Rx Instructions .ROUTE .COMPLEX RF: 0 folic acid 1 mg tablet 1 mg PO QAM RF: 0 buprenorphine-naloxone 8-2 mg tablet, sublingual 1 tab SUBLINGUAL BID RF: 0 aspirin [Ecotrin Low Strength] 81 mg tablet,delayed release (DR/EC) 81 mg PO QAM RF: 0 nicotine [Nicoderm CQ] 21 mg/24 hr Patch 24 Hour 21 mg transdermal QAM Qty: 14 RF: 1 gabapentin 300 mg Capsule 300 mg PO BID Qty: 60 RF: 0 magnesium oxide 400 mg (241.3 mg magnesium) Tablet 400 mg PO QAM Qty: 30 RF: 0 thiamine HCl (vitamin B1) [Vitamin B-1] 100 mg Tablet 100 mg PO QAM Qty: 30 RF: 1 venlafaxine 150 mg capsule,extended release 24hr 150 mg PO DAILY RF: 0 Levemir FlexTouch U-100 Insuln 100 unit/mL (3 mL) insulin pen 45 unit SUBCUT HS RF: 0 multivitamin Tablet 1 tab PO DAILY RF: 0 atorvastatin 80 mg Tablet 80 mg PO DAILY RF: 0 urea 20 % Cream 1 applic TOPICAL BID RF: 0 naloxone 0.4 mg/mL Solution 0 mg intranasal DIRECTED PRN (Reason: OVERSEDATION) RF: 0 cyanocobalamin (vitamin B-12) [Vitamin B-12] 1,000 mcg Tablet 1,000 mcg PO DAILY RF: 0 nitroglycerin [Nitrostat] 0.4 mg Tablet, Sublingual 0.4 mg sublingual DIRECTED PRN (Reason: Chest Pain) RF: 0 clotrimazole 1 % Cream 1 applic TOPICAL BID RF: 0 Ozempic 1 mg/dose (2 mg/1.5 mL) Pen Injector 0.5 mg SUBCUT WK RF: 0 albuterol sulfate 2.5 mg /3 mL (0.083 %) Solution For Nebulization 2.5 mg INHALATION QID PRN (Reason: Shortness Of Breath Or Wheezing) RF: 0 disulfiram 500 mg tablet 500 mg PO DAILY Qty: 14 RF: 0 metoprolol succinate [Toprol XL] 50 mg tablet extended release 24 hr 75 mg PO QAM 30 Days Qty: 45 RF: 0 Changed furosemide 40 mg Tablet 40 mg PO QAM Qty: 60 RF: 0 amlodipine [Norvasc] 5 mg Tablet 10 mg PO QAM Qty: 60 RF: 0 Discontinued losartan 50 mg Tablet 50 mg PO QAM Qty: 30 RF: 0 Discharge Orders: Discharge Order (Routine); Ordered 12/19/20 Ordered By: Janie Campbell/Other Patient Handouts: A1C, Managing Type 2 Diabetes, Diabetes: Meal Planning Admission Data Admit Date/Time: 12/02/20 21:42 Attending Provider: Janie Beltre I. Admit Provider: Jonathan Payne Primary Care Provider: Charity Kasper Other Providers: Tico Bullock ; Jonathan Payne ; Dontae Larry ; Katherine Velasquez
[2020-12-19] MEDS: INSULIN DETEMIR FLEXPEN/FLEX TOUCH 100 UNITS/ML 3ML SQ SCH ×2 (12:39→21:05)
--- NOTE | 2020-12-19 18:18 | Hospitalist Progress Note ---
Date of Service December 19, 2020 Assessment & Plan (1) Alcohol abuse: (2) Alcohol withdrawal syndrome: Plan: Has been admitted since 12/02 with no evidence of alcohol withdrawal at this point. He continues on his Suboxone and PRN Ativan. Continue thiamine and folate daily. Failed recent inpatient rehabilitation within 2 weeks of discharge. He is back again to detox and try another rehab program. Discussed with CM today. She stated that all rehab options have been exhausted and all declined (3) Acute kidney injury: Plan: Patient has CKD with wildly fluctuating Cr over past few months Cr increased to 1.6 on 12/13 and furosemide and losartan were held Furosemide and losartan later resumed at lower doses on 12/14 Cr is 1.33 today Was hyperkalemic yesterday. Losartan suspended. Will suspend this on discharge Continue lasix 40mg daily on dc Patient will follow up with PCP (4) Transaminitis: Plan: Improved likely related to recent alcohol use (5) Diabetes mellitus type 2 with complications: Plan: Pharmacy managing, currently euglycemic, continue with basal bolus insulin per pharmacy recommendations. Hgb A1c 8.2 (6) Tobacco use disorder: Plan: Continue NicoDerm patch (7) Chronic pain syndrome: Plan: Patient continues on Suboxone twice daily per home regimen. Had fall 12/13 in the bathroom, reporting mild increase in chronic mid back pain. Thoracic spine x-ray unremarkable. (8) Mood disorder: Plan: Continue same per home regimen (9) CATALINO (obstructive sleep apnea): Plan: Records indicate patient is noncompliant with CPAP (10) HTN (hypertension): Plan: Chronic, controlled with current therapy including Norvasc 5 mg daily, furosemide 80 mg daily, losartan 50 mg daily, Toprol-XL 75 mg daily Hold losartan on dc as above Norvasc increased to 10mg on discharge (11) DVT prophylaxis: Plan: SQ heparin (12) Discharge planning issues: Plan: CM reports all rehab options exhausted Patient reports that he may have nowhere to go as his RV which he lives in may not be habitable at this time. commercial leasing manager provided resources for residential. Patient later reported that the person that will take him home won't be here till tomorrow afternoon Will keep patient one more night for this Admission and Anticipated Discharge Date Admission Date: December 02, 2020 Subjective Patient seen and examined Has no new complaints Review of Systems Review of Systems: All systems reviewed & are unremarkable except as noted in Subjective Physical Exam Constitutional: + well hydrated and + obese; no acute distress Eyes: PERRL, conjunctivae normal, anicteric sclerae ENMT: external ear and nose normal, oropharynx normal Respiratory: normal respiratory effort, lungs clear to auscultation Cardiovascular: RRR S1 S2 Gastrointestinal (Abdomen): normal bowel sounds, soft, nontender, no hepatosplenomegaly Musculoskeletal: Trace edema Neurologic: PERRL, EOMI, accommodation nl, no face palsy, no dysarthria Psychiatric: A+Ox3, euthymic affect Results & Data Results & Data ([facility]) Vital Signs (Past 12 Hours) Vital Signs Temp Pulse Resp BP Pulse Ox 12/19/20 15:19 36.6 C 70 16 116/77 93 12/19/20 09:53 68 141/83 H 12/19/20 07:06 36.7 C 57 L 16 150/85 H 93 Laboratory Results Abnormal lab results 12/18/20 12/19/20 12/19/20 Range/Units 20:44 08:32 10:38 APTT 37.6 H (21.0-31.0) Seconds Sodium (136-145) mmol/L BUN (7-18) mg/dl BUN/Creatinine Ratio (10-20) Glucose (70-99) mg/dl POC Glucose 125 H 183 H (70-99) mg/dl 12/19/20 12/19/20 Range/Units 10:38 12:20 APTT (21.0-31.0) Seconds Sodium 134 L (136-145) mmol/L BUN 50 H (7-18) mg/dl BUN/Creatinine Ratio 37.6 H (10-20) Glucose 276 H (70-99) mg/dl POC Glucose 228 H (70-99) mg/dl
[2020-12-20] MEDS: HEPARIN SOD 5,000 UNIT/0.5 ML VIAL SQ SCH ×2 (06:38→13:10)
[2020-12-20] MEDS ORDERED: amLODIPine BESYLATE 5 MG TAB PO SCH (09:00)
[2020-12-20] MEDS: ATORVASTATIN 40 MG TAB PO SCH (09:10)
[2020-12-20] MEDS: MULTIVITAMIN TAB PO SCH (09:11)
[2020-12-20] MEDS: THIAMINE HCL 100 MG TAB PO SCH (09:12)
[2020-12-20] MEDS: FUROSEMIDE 40 MG TAB PO SCH (09:12)
[2020-12-20] MEDS: GABAPENTIN 300 MG CAP PO SCH (09:12)
[2020-12-20] MEDS: METOPROLOL SUCC 25MG EXT REL TAB PO SCH (09:13)
[2020-12-20] MEDS: FOLIC ACID 1 MG TAB PO SCH (09:14)
[2020-12-20] MEDS: CYANOCOBALAMIN 500 MCG TABLET (VITAMIN B-12) PO SCH (09:14)
[2020-12-20] MEDS: ASPIRIN 81 MG ECTAB PO SCH (09:15)
[2020-12-20] MEDS: VENLAFAXINE HCL XR 150 MG CAPXR PO SCH (09:15)
[2020-12-20] MEDS: NICOTINE 14 MG/24 HR PATCH TD SCH (09:16)
[2020-12-20] MEDS: MAGNESIUM CHLORIDE 64MG DELAYED REL TAB PO SCH (09:17)
[2020-12-20] MEDS: INSULIN ASPART 100 UNITS/ML 3 ML PEN SC SCH ×2 (09:18→13:08)
[2020-12-20] MEDS: INSULIN DETEMIR FLEXPEN/FLEX TOUCH 100 UNITS/ML 3ML SQ SCH (09:19)
[2020-12-20] MEDS: BUPRENORPHINE/NALOXONE 8/2 MG TAB SL SCH (09:23)
[2020-12-20] MEDS: CLOTRIMAZOLE 1% CR 15 GM TUBE TOP SCH (09:25)
--- NOTE | 2020-12-20 10:32 | Discharge Summary ---
Date of Service December 20, 2020 Admission HPI Per Admitting Provider This is a 55-year-old male with past medical history significant for type 2 diabetes, hypertension, hyperlipidemia, chronic alcohol abuse, CAD status post stent, chronic back pain, obstructive sleep apnea, noncompliant with CPAP, ongoing tobacco abuse, neuropathy, chronic kidney disease stage III, emphysema, fatty liver, history of anemia, history of depression, generalized anxiety disorder, presents from home because of alcoholism. The patient was recently in the hospital in the end of September and discharged on 10/29. At that time, he was here in ER with alcoholism, ONDINA, hyperkalemia and the patient says he was in alcohol rehab for 2 weeks and discharged. He was at home since last 2 weeks. Since coming back home, he again started drinking about half a gallon of vodka every day. He lives in the alone. He sometimes falling down because he is drunk. Some blurred vision from being drunk and his [facility] advised him to come to the hospital today. The patient is somewhat shaky. He also had squamous cell cancer of his left arm status post Mohs procedure. The patient is concerned about some infection at the Mohs procedure site, but there is no active erythema or tenderness or warmth on palpation. The patient denies any fevers. Has chronic ongoing smoker's cough and shortness of breath on exertion. He has some chest pain sometimes, he has nitroglycerin but he never used nitroglycerin so far. Currently, no chest pain, no fevers. Has chronic runny nose. Denies any headache. No blurred visions, no nausea. He is not eating much, so not much bowel movements, but denies any blood in stools and normal bladder movements. Admission Exam Per Admitting Provider GENERAL: The patient is obese, not in acute distress. VITAL SIGNS: Temperature 36.9, pulse 99, respirations 16, blood pressure 177/98, oxygen 98% on 2 liters. HEENT: Pupils equal, round and reactive to light. Oral mucosa moist. NECK: No JVD or neck masses. CARDIOVASCULAR: S1 and S2 heard. Regular rate and rhythm. No murmur, no gallop. RESPIRATORY SYSTEM: Normal AP diameter. No accessory muscle use. No wheezing, no crackles. ABDOMEN: Soft, bowel sounds present, nontender, no distention. CENTRAL NERVOUS SYSTEM: Cranial nerves II-XII grossly intact, nonfocal. EXTREMITIES: Mild pedal edema present, no erythema seen. Principal Diagnosis Alcohol abuse CKD3 Discharge Exam Constitutional + well hydrated and + obese; no acute distress Eyes PERRL, conjunctivae normal, anicteric sclerae ENMT external ear and nose normal, oropharynx normal Respiratory normal respiratory effort, lungs clear to auscultation Cardiovascular Rate/Rhythm: regular rate and regular rhythm S1 S2 Gastrointestinal (Abdomen) normal bowel sounds, soft, nontender, no hepatosplenomegaly Musculoskeletal Trace pedal edema Neurologic PERRL, EOMI, accommodation nl, no face palsy, no dysarthria Psychiatric A+Ox3, euthymic affect Discharge Data Allergies Allergy/AdvReac Type Severity Reaction Status Date / Time No Known Allergies Allergy Verified 10/14/20 00:54 Consultations 12/02/20 20:13 ED Decision to Admit Stat 12/16/20 10:00 Consult Cardiology Routine Ordered Studies 12/02/20 14:22 CT head/brain wo con Stat No acute intracranial hemorrhage, midline shift, intra-axial mass, hydrocephalus, territorial ischemia or abnormal extra-axial collection. Calc ifications of the falx cerebri. Possible small colloid cyst versus choroid plexus of the third ventricle measures 3 mm on image 17 series 2. Cerebral vascular calcifications. The calvarium is intact. Mastoid air cells are clear. Mild mucosal thickening of the ethmoid and maxillary sinuses. Unremarkable soft tissues and orbits. IMPRESSION: No acute intracranial abnormality or calvarial fracture. Hospital Course (1) Alcohol abuse: (2) Alcohol withdrawal syndrome: Has had multiple hospitalizations requesting for aid with rehab placement Reports he recently went to rehab and relapsed shortly afterwards He is back again to detox and try another rehab program. All attempts to get patient into inpatient rehab were unsuccessful Coleman will contact patient's disease case manager to continue looking for rehab options for him (3) Acute kidney injury: Patient has CKD with wildly fluctuating Cr over past few months Cr increased to 1.6 on 12/13 and furosemide and losartan were held Furosemide and losartan later resumed at lower doses on 12/14 Cr is 1.33 yesterday Was hyperkalemic and Losartan suspended. Was suspended on discharge Home lasix reduced to 40mg daily (4) Transaminitis: Improved likely related to recent alcohol use (5) Diabetes mellitus type 2 with complications: Pharmacy managing, currently euglycemic, continue with basal bolus insulin per pharmacy recommendations. Hgb A1c 8.2 (6) Tobacco use disorder: Continue NicoDerm patch (7) Chronic pain syndrome: Patient continues on Suboxone twice daily per home regimen. Had fall 12/13 in the bathroom, reporting mild increase in chronic mid back pain. Thoracic spine x-ray unremarkable. (8) Mood disorder: Continue same per home regimen (9) CATALINO (obstructive sleep apnea): Records indicate patient is noncompliant with CPAP (10) HTN (hypertension): Chronic, controlled with current therapy including Norvasc 5 mg daily, furosemide 80 mg daily, losartan 50 mg daily, Toprol-XL 75 mg daily Hold losartan on dc as above Norvasc increased to 10mg on discharge Total Time Total Time Spent Total Time Spent (In Minutes): 35 Total Time Includes: Examination of the Patient, Discharge Planning and Medication Reconciliation Discharge Plan Discharge Items Patient Disposition: Home - Self-Care Reason For Visit: DETOX REQUEST Discharge Diagnosis: Alcohol abuse CKD3 Activity: Resume your previous activity Non-emergency contact: Primary Care Provider and Dump Grader Call non-emergency contact if: you have any medication questions Follow-up/Referrals: Charity Kasper MD [Primary Care Provider] - Diet: Carb Consistent or DM2, Heart Healthy and Low Sodium (2gm) Addtl Attending Provider Instructions: Mr. Dillard You came to the hospital requesting help with your alcohol abuse. You were managed in the hospital for alcohol withdrawal. Several attempts were made to get you into inpatient rehab at multiple facilities. However, all these declined by the facilities. You are being discharged to follow-up with your [facility] ct tech who will continue to look into resources in rehab facilities for you. Please utilize resources provided by me and the disease case manager today. Due to elevated potassium level and kidney function, your home losartan suspended for now. Please stop taking this for now. Your Lasix was also reduced to 40 mg daily. Your amlodipine was increased to 10 mg daily for now for better blood pressure control. It is very important that you follow-up with your primary doctor who will continue to monitor adjust medication as needed. It was a pleasure taking care of you. Pending Studies at Discharge: No Stand-Alone Forms: My [facility], Smoking Cessation Medications and DC Order Prescriptions: Continued insulin aspart U-100 [Novolog Flexpen U-100 Insulin] 100 unit/mL Insulin Pen See Rx Instructions .ROUTE .COMPLEX RF: 0 folic acid 1 mg tablet 1 mg PO QAM RF: 0 buprenorphine-naloxone 8-2 mg tablet, sublingual 1 tab SUBLINGUAL BID RF: 0 aspirin [Ecotrin Low Strength] 81 mg tablet,delayed release (DR/EC) 81 mg PO QAM RF: 0 nicotine [Nicoderm CQ] 21 mg/24 hr Patch 24 Hour 21 mg transdermal QAM Qty: 14 RF: 1 gabapentin 300 mg Capsule 300 mg PO BID Qty: 60 RF: 0 magnesium oxide 400 mg (241.3 mg magnesium) Tablet 400 mg PO QAM Qty: 30 RF: 0 thiamine HCl (vitamin B1) [Vitamin B-1] 100 mg Tablet 100 mg PO QAM Qty: 30 RF: 1 venlafaxine 150 mg capsule,extended release 24hr 150 mg PO DAILY RF: 0 Levemir FlexTouch U-100 Insuln 100 unit/mL (3 mL) insulin pen 45 unit SUBCUT HS RF: 0 multivitamin Tablet 1 tab PO DAILY RF: 0 atorvastatin 80 mg Tablet 80 mg PO DAILY RF: 0 urea 20 % Cream 1 applic TOPICAL BID RF: 0 naloxone 0.4 mg/mL Solution 0 mg intranasal DIRECTED PRN (Reason: OVERSEDATION) RF: 0 cyanocobalamin (vitamin B-12) [Vitamin B-12] 1,000 mcg Tablet 1,000 mcg PO DAILY RF: 0 nitroglycerin [Nitrostat] 0.4 mg Tablet, Sublingual 0.4 mg sublingual DIRECTED PRN (Reason: Chest Pain) RF: 0 clotrimazole 1 % Cream 1 applic TOPICAL BID RF: 0 Ozempic 1 mg/dose (2 mg/1.5 mL) Pen Injector 0.5 mg SUBCUT WK RF: 0 albuterol sulfate 2.5 mg /3 mL (0.083 %) Solution For Nebulization 2.5 mg INHALATION QID PRN (Reason: Shortness Of Breath Or Wheezing) RF: 0 disulfiram 500 mg tablet 500 mg PO DAILY Qty: 14 RF: 0 metoprolol succinate [Toprol XL] 50 mg tablet extended release 24 hr 75 mg PO QAM 30 Days Qty: 45 RF: 0 Changed furosemide 40 mg Tablet 40 mg PO QAM Qty: 60 RF: 0 amlodipine [Norvasc] 5 mg Tablet 10 mg PO QAM Qty: 60 RF: 0 Discontinued losartan 50 mg Tablet 50 mg PO QAM Qty: 30 RF: 0 Discharge Orders: Discharge Order (Routine); Ordered 12/20/20 Ordered By: Janie Campbell/Other Patient Handouts: A1C, Managing Type 2 Diabetes, Diabetes: Meal Planning Admission Data Admit Date/Time: 12/02/20 21:42 Attending Provider: Janie Bletre I. Admit Provider: Jonathan Payne Primary Care Provider: Charity Kasper Other Providers: Tico Bullock ; Jonathan Payne ; Dontae Larry ; Katherine Velasquez Other Interventions: Discharge Summary Assessment (RN) Last Done: 12/20/20 13:39
[2020-12-20 11:09] LABS: Hematocrit (blood only) 37.2 % (42-52); Hemoglobin 12.7 g/dL (14.0-18.0); Mean Corpuscular Hemoglobin 31.3 pg (25-34); Mean Corpuscular Hgb Conc 34.1 g/dL (32-36); Mean Corpuscular Volume 91.6 fL (80-100); Mean Platelet Volume 10.5 fL (7.4-10.4); Platelet Count 282 K/uL (130-400); RDW Coefficient of Variation 12.3 % (11.5-14.5); RDW Standard Deviation 41.5 fL (36.4-46.3); Red Blood Count 4.06 M/uL (4.7-6.1); White Blood Count 5.36 K/uL (4.8-10.8)
[2020-12-20 11:21] LABS: Partial Thromboplastin Ratio 1.5; Partial Thromboplastin Time 39.9 Seconds (21.0-31.0)
== END 2020-12-20 14:29 | disposition home or self-care (01) | DRG 897 ==
LOC: ED 13:09 → SUATTDRO 21:42 → 2S 21:42 → 3N 12-11 19:08

== ENCOUNTER 2021-01-20 20:03 | Inpatient (IN) ==
[2021-01-20 22:48] LABS: Eosinophils # (auto) 0.06 K/uL (0-0.5); Eosinophils % (auto) 1.4 %; Hematocrit (blood only) 32.9 % (42-52); Hemoglobin 11.1 g/dL (14.0-18.0); Lymphocytes % (auto) 28.2 %; Mean Corpuscular Hemoglobin 30.8 pg (25-34); Mean Corpuscular Hgb Conc 33.7 g/dL (32-36); Mean Corpuscular Volume 91.4 fL (80-100); Mean Platelet Volume 9.3 fL (7.4-10.4); Monocytes # (auto) 0.56 K/uL (0.11-0.59); Monocytes % (auto) 13.1 %; Neutrophils # (auto) 2.44 K/uL (1.4-6.5); Neutrophils % (auto) 57.3 %; Platelet Count 142 K/uL (130-400); RDW Coefficient of Variation 14.4 % (11.5-14.5); RDW Standard Deviation 48.4 fL (36.4-46.3); White Blood Count 4.26 K/uL (4.8-10.8)
[2021-01-20 23:01] LABS: Prothrombin Time 10.6 Seconds (9.0-12.0)
[2021-01-20 23:06] LABS: Albumin Level 1.8 gm/dl (3.4-5.0); BUN Creatinine Ratio 8.6 (10-20); Calcium 8.2 mg/dl (8.5-10.1); Creatinine Clr Calc Pharmacy 67.6 ml/min; Est GFR (African American) 58.5 ml/min; Est GFR (Non-African American) 50.5 ml/min; Magnesium 1.3 mg/dl (1.8-2.4)
[2021-01-20 23:09] LABS: Albumin Globulin Ratio 0.4 (0.9-2); Bilirubin,Total 0.5 mg/dl (0.2-1); Globulin 4.5 gm/dl (2.5-4.0); Total Protein 6.3 gm/dl (6.4-8.2)
[2021-01-20] MEDS ORDERED: MULTI-VITAMIN INFUSION 10 ML, THIAMINE HCL 100 MG, FOLIC ACID 1 MG in SODIUM CHLORIDE 0... IV ONE (23:52)
[2021-01-21] MEDS ORDERED: cefTRIAXone SODIUM 2,000 MG/70 ML BAG IV STA (01:42)
[2021-01-21] MEDS ORDERED: DOXYCYCLINE HYCLATE 100 MG in DEXTROSE 5% 100 ML IV STA (02:37)
--- NOTE | 2021-01-21 02:44 | History & Physical Report ---
Date of Service January 21, 2021 Assessment & Plan (1) Alcohol withdrawal syndrome: Plan: Past history of alcohol withdrawal seizures. HTN, slight elevated secondary to above LE cellulitis, no sepsis for now Alcoholic hepatitis, good prognosis with Madrey's DF score of one-point chronic systolic heart failure secondary to ischemic cardiomyopathy (EF 55 to 60%, TTE 2020), equivocal volume status CAD status post stent hyperlipidemia, on statin Rx COPD, baseline wheezing/smoker's cough symptoms as per patient DM 2 insulin requiring, suboptimal control as of recent hemoglobin A1c of 8.2, November 2020 chronic anemia, hemoglobin at baseline Chronic pain on Suboxone ongoing tobacco abuse Medical telemetry ALEX S, DT precautions, seizure precautions Facilitate home BP meds, may need titration Doxycycline for LE cellulitis Basal insulin, ISS BG goal [id number], carb count coverage Social service RE discharge planning Nicotine patch DVT prophylaxis. Lovenox subcu Full code Text document was generated using [employer] voice recognition software. It may contain grammatical or spelling errors. Kindly contact undersigned for clarification of any documentation item in question. History of Present Illness Chief Complaint: Leg swelling/blisters, started drinking again Primary Care Provider: Charity Kasper MD History obtained from patient and records. Medical history significant for chronic diastolic heart failure secondary to ischemic cardiomyopathy (EF 55-60 %, TTE 2020), CAD status post stent, hypertension, hyperlipidemia, COPD as per records, DM 2 insulin requiring, anxiety/mood disorder, chronic anemia (baseline hemoglobin 11-12), ongoing tobacco/alcohol abuse, history alcohol withdrawal seizures, chronic pain on Suboxone. Last confinement November 2020 for alcohol withdrawal. Unsuccessful attempts to get patient into inpatient rehab. Patient started drinking again shortly after discharge from the hospital. 2 days ago, patient noted increased bilateral leg swelling followed by seepage. No fever, no chills. No unusual chest pain, or S OB. Abdomen distended as per patient. Patient not sure about weight gain. IV Ceftriaxone given at the ER for cellulitis. Medical Historyas above Surgical History : None Family History : Heart disease, diabetes Personal/Social history : 1/2 to 3/4 pack daily, alcohol abuse, currently unemployed Allergies Allergy/AdvReac Type Severity Reaction Status Date / Time No Known Allergies Allergy Verified 01/21/21 02:08 Home Medications Medication Instructions Recorded Confirmed Type insulin aspart U-100 100 unit/mL See Rx Instructions .ROUTE .COMPLEX 12/16/17 01/21/21 History (3 mL) subcutaneous pen (Novolog Flexpen U-100 Insulin aspart) aspirin 81 mg tablet,delayed 81 mg PO QAM 08/26/19 01/21/21 History release (Ecotrin Low Strength) buprenorphine 8 mg-naloxone 2 mg 1 tab SUBLINGUAL BID 01/16/20 01/21/21 History sublingual tablet folic acid 1 mg tablet 1 mg PO QAM 01/16/20 01/21/21 History gabapentin 300 mg capsule 300 mg PO BID #60 cap 03/07/20 01/21/21 Rx magnesium oxide 400 mg (241.3 mg 400 mg PO QAM #30 tab 03/07/20 01/21/21 Rx magnesium) tablet thiamine HCl (vitamin B1) 100 mg 100 mg PO QAM #30 tab 03/07/20 01/21/21 Rx tablet (Vitamin B-1) albuterol sulfate 2.5 mg INHALATION QID PRN 07/24/20 01/21/21 History atorvastatin 80 mg tablet 80 mg PO DAILY 07/24/20 01/21/21 History clotrimazole 1 % topical cream 1 applic TOPICAL BID PRN 07/24/20 01/21/21 History cyanocobalamin (vitamin B-12) 1,000 mcg PO DAILY 07/24/20 01/21/21 History 1,000 mcg tablet (Vitamin B-12) multivitamin 1 tab PO DAILY 07/24/20 01/21/21 History naloxone 0.4 mg/mL injection 0 mg INTRANASAL DIRECTED PRN 07/24/20 01/21/21 History solution nitroglycerin 0.4 mg sublingual 0.4 mg SUBLINGUAL DIRECTED PRN 07/24/20 01/21/21 History tablet (Nitrostat) semaglutide 1 mg/dose (2 mg/1.5 0.5 mg SUBCUT WK 07/24/20 01/21/21 History mL) subcutaneous pen injector (Ozempic) urea 20 % topical cream 1 applic TOPICAL BID 07/24/20 01/21/21 History disulfiram 500 mg tablet 500 mg PO DAILY #14 tab 08/04/20 01/21/21 Rx metoprolol succinate 50 mg 75 mg PO QAM 30 Days #45 tab 10/29/20 01/21/21 Rx tablet,extended release 24 hr (Toprol XL) insulin detemir U-100 100 unit/mL 35 - 50 unit SUBCUT HS 12/11/20 01/21/21 History (3 mL) subcutaneous pen (Levemir FlexTouch U-100 Insulin) venlafaxine 150 mg 150 mg PO DAILY 12/11/20 01/21/21 History capsule,extended release 24 hr amlodipine 5 mg tablet (Norvasc) 10 mg PO QAM #60 tab 12/19/20 01/21/21 Rx furosemide 40 mg tablet 40 mg PO QAM #60 tab 12/19/20 01/21/21 Rx Past Med/Surg History Medical History Alcohol use disorder Bilateral edema of lower extremity Chronic anemia Diabetes mellitus type 2 with complications TONEY (dyspnea on exertion) Edema Elevated troponin HTN (hypertension) Mood disorder Neuropathy NSTEMI (non-ST elevated myocardial infarction) Obesity CAATLINO (obstructive sleep apnea) CATALINO (obstructive sleep apnea) Proteinuria Smoking Tobacco use disorder Type 2 diabetes mellitus Surgical History History of cardiac catheterization 1 ELIESER to proximal OM by Dr. Guerrero on 01/01/19 History of lymph node biopsy Family History Other Heart disease Social History Smoking Status: Current every day smoker Tobacco Type: Cigarettes Years Smoked: 39; Cigarettes Per Day: 20; Second Hand Exposure: No; Do You Dip or Chew Tobacco: No; Tobacco Cessation Education Requested by Patient: No Hx Alcohol Use: Yes Alcohol type: hard liquor Alcohol type Comment: 1/2 gallon vodka a day Hx Substance Use: Yes Last Used Substance: Unknown Last Used Substance Other:: takes suboxone Substance Use Type Other:: suboxone taper Preferred Language: Latvian Communication Ability: Effective Public Health Epidemiologist Required: No Beliefs That Will Affect Care: None marital status: Single Current Living Situation: Alone Current Living Situation Comment: Rv in friends driveway current occupational status: unemployed How many Children do You have: 2 Other Information That Helps Us Care for You: No Feels Safe at Home: Yes Safety Concerns: Feels Safe At This Time Assistive Devices: None Review of Systems Review of Systems: As per HPI, all 10 systems reviewed, all other ROS negative Physical Exam Physical Exam: GENERAL: Comfortable, obese, tremulous, no respiratory distress SKIN: pallor, warm HEENT: Pale palpebral conjunctivae, no ptosis, dry buccal mucosa NECK : Supple, short neck, no tenderness CHEST : Decreased breath sounds, expiratory wheezes that clear on coughing , no tenderness HEART : RRR, systolic murmur ABDOMEN: Some distention, nontender EXTREMITIES : Bilateral LE erythema with minimal tenderness,no other conspicuous deformities noted NEUROLOGIC : Coherent, no facial asymmetry, tremulous Results & Data Results & Data ([facility]) Vital Signs (Past 12 Hours) Vital Signs Temp Pulse Pulse Resp BP BP Pulse Ox 01/21/21 01:43 77 17 153/86 H 98 01/21/21 00:36 76 17 151/82 H 93 01/20/21 22:39 93 01/20/21 20:05 37.1 C 107 H 18 136/72 94 Laboratory Results Laboratory Results WBC 4.26 K/uL (4.8-10.8) L 01/20/21 22:37 RBC 3.60 M/uL (4.7-6.1) L 01/20/21 22:37 Hgb 11.1 g/dL (14.0-18.0) L 01/20/21 22:37 Hct 32.9 % (42-52) L 01/20/21 22:37 MCV 91.4 fL (80-100) 01/20/21 22:37 MCH 30.8 pg (25-34) 01/20/21 22:37 MCHC 33.7 g/dL (32-36) 01/20/21 22:37 RDW Std Deviation 48.4 fL (36.4-46.3) H 01/20/21 22:37 RDW Coeff of Alberto 14.4 % (11.5-14.5) 01/20/21 22:37 Plt Count 142 K/uL (130-400) 01/20/21 22:37 MPV 9.3 fL (7.4-10.4) 01/20/21 22:37 Immature Gran % (Auto) 0.0 % 01/20/21 22:37 Neut % (Auto) 57.3 % 01/20/21 22:37 Lymph % (Auto) 28.2 % 01/20/21 22:37 [place] % (Auto) 13.1 % 01/20/21 22:37 Eos % (Auto) 1.4 % 01/20/21 22:37 Baso % (Auto) 0.0 % 01/20/21 22:37 Neut # (Auto) 2.44 K/uL (1.4-6.5) 01/20/21 22:37 Lymph # (Auto) 1.20 K/uL (1.2-3.4) 01/20/21 22:37 [place] # (Auto) 0.56 K/uL (0.11-0.59) 01/20/21 22:37 Eos # (Auto) 0.06 K/uL (0-0.5) 01/20/21 22:37 Baso # (Auto) 0.00 K/uL (0-0.2) 01/20/21 22:37 Immature Gran # (Auto) 0.00 K/uL (0.00-0.02) 01/20/21 22:37 PT 10.6 Seconds (9.0-12.0) 01/20/21 22:37 INR 1.0 (0.9-1.1) 01/20/21 22:37 Sodium 137 mmol/L (136-145) 01/20/21 22:37 Potassium 4.0 mmol/L (3.5-5.1) 01/20/21 22:37 Chloride 101 mmol/L (98-107) 01/20/21 22:37 Carbon Dioxide 26 mmol/L (21-32) 01/20/21 22:37 Anion Gap 10.0 (3-11) 01/20/21 22:37 BUN 13 mg/dl (7-18) 01/20/21 22:37 Creatinine 1.52 mg/dl (0.6-1.4) H 01/20/21 22:37 Est Cr Clr Drug Dosing 67.6 ml/min 01/20/21 22:37 Est GFR ( Amer) 58.5 ml/min 01/20/21 22:37 Est GFR (Non-Af Amer) 50.5 ml/min 01/20/21 22:37 BUN/Creatinine Ratio 8.6 (10-20) L 01/20/21 22:37 Glucose 196 mg/dl (70-99) H 01/20/21 22:37 Calcium 8.2 mg/dl (8.5-10.1) L 01/20/21 22:37 Magnesium 1.3 mg/dl (1.8-2.4) L 01/20/21 22:37 Total Bilirubin 0.5 mg/dl (0.2-1) 01/20/21 22:37 AST 89 U/L (15-37) H 01/20/21 22:37 ALT 59 U/L (12-78) 01/20/21 22:37 Alkaline Phosphatase 126 U/L (45-117) H 01/20/21 22:37 Total Protein 6.3 gm/dl (6.4-8.2) L 01/20/21 22:37 Albumin 1.8 gm/dl (3.4-5.0) L 01/20/21 22:37 Globulin 4.5 gm/dl (2.5-4.0) H 01/20/21 22:37 Albumin/Globulin Ratio 0.4 (0.9-2) L 01/20/21 22:37 Ethyl Alcohol mg/dL 154.7 mg/dl (0-3) H 01/20/21 22:37 COVID-19 Eval Order Covid19 at [facility] 01/20/21 22:43 SARS-CoV-2 (PCR) NEGATIVE (Negative) 01/20/21 22:43 Diagnostic Findings LE venous Dopplers initial read: No deep vein thrombosis of either lower extremity. Prominent bilateral inguinal lymphadenopathyis nonspecific and maybe infectious, inflammatoryor neoplastic. There is nonspecific edema of the left calf. Chest x-ray as per my interpretation no congestion:
[2021-01-21] MEDS ORDERED: GABAPENTIN 600 MG TAB PO STA (02:49)
[2021-01-21] MEDS ORDERED: MAGNESIUM SULFATE / D5W 1 GM/100 ML BAG IV STA (02:55)
[2021-01-21] MEDS ORDERED: GABAPENTIN 1200MG ALCOHOL WITHDRAWAL LOAD PO STA (02:55)
[2021-01-21] MEDS ORDERED: ATIVAN IV ALCOHOL WITHDRAWL IV PRN (03:43)
[2021-01-21] MEDS ORDERED: LORazepam 3 MG/6 ML VIAL IV PRN (03:43)
[2021-01-21] MEDS ORDERED: LORazepam 1 MG/2 ML VIAL IV PRN (03:43)
[2021-01-21] MEDS: LORazepam 1 MG/2 ML VIAL IV PRN ×2 (03:49→09:48)
[2021-01-21 04:30] LABS: Appearance Urine Clear (Clear); Bacteria Urine Automated Negative (Negative); Bilirubin Urine Negative (Negative); Blood Urine Trace (Negative); Color Urine Yellow; Epithelial Cell Urine Auto 20-30 /lpf (0-5); Glucose Urine UA Negative (Negative); Ketones Urine Negative (Negative); Leukocyte Esterase Urine Negative (Negative); Nitrite Urine Negative (Negative); Protein Urine 3+ (Negative); RBC Urine Automated 0-4 /hpf (0-4); Specific Gravity Urine 1.009 (1.000-1.030); Urobilinogen Urine Negative (Negative)
[2021-01-21] MEDS ORDERED: GLUCOSE 10 TABS/TUBE PO PRN (04:36)
[2021-01-21] MEDS ORDERED: LEVALBUTEROL 1.25MG/0.5ML NEB INH PRN (04:36)
[2021-01-21] MEDS ORDERED: ACETAMINOPHEN 325 MG TAB PO PRN (04:36)
[2021-01-21] MEDS ORDERED: GLUCOSE 40% GEL 15 GM TUBE PO PRN (04:36)
[2021-01-21] MEDS ORDERED: XOPENEX/ATROVENT 1.25mg/0.5MG NEB COMBO NEB PRN (04:36)
[2021-01-21] MEDS ORDERED: PROMETHAZINE HCL 12.5 MG in SODIUM CHLORIDE 0.9% 50 ML IV PRN (04:36)
[2021-01-21] MEDS ORDERED: CARBOHYDRATES FOR HYPOGLYCEMIA PO PRN (04:36)
[2021-01-21] MEDS ORDERED: DEXTROSE 50% 50 ML SYRINGE IV PRN (04:36)
[2021-01-21] MEDS ORDERED: GLUCAGON FOR INJ 1 MG VIAL SQ PRN (04:36)
[2021-01-21] MEDS ORDERED: IPRATROPIUM BROMIDE NEB SOLN 0.02% 2.5 ML VIAL INH PRN (04:36)
[2021-01-21] MEDS ORDERED: INSULIN GLARGINE SOLOSTAR 100 UNITS/ML 3 ML PEN SC STA (04:50)
[2021-01-21] MEDS ORDERED: ALBUMIN 25% 100 mL 25 GM/100 ML VIAL IV ONE (05:00)
[2021-01-21] MEDS: LORazepam 2 MG/4 ML VIAL IV PRN ×4 (05:17→22:40)
[2021-01-21 05:34] LABS: Basophils # (auto) 0.01 K/uL (0-0.2); Basophils % (auto) 0.3 %; Eosinophils # (auto) 0.06 K/uL (0-0.5); Eosinophils % (auto) 1.8 %; Hematocrit (blood only) 34.3 % (42-52); Hemoglobin 11.3 g/dL (14.0-18.0); Immature Granulocytes # (auto) 0.01 K/uL (0.00-0.02); Immature Granulocytes % (auto) 0.3 %; Mean Corpuscular Hemoglobin 30.9 pg (25-34); Mean Corpuscular Hgb Conc 32.9 g/dL (32-36); Mean Corpuscular Volume 93.7 fL (80-100); Mean Platelet Volume 9.6 fL (7.4-10.4); Neutrophils # (auto) 1.85 K/uL (1.4-6.5); Neutrophils % (auto) 55.6 %; Platelet Count 126 K/uL (130-400); RDW Coefficient of Variation 14.4 % (11.5-14.5); RDW Standard Deviation 49.3 fL (36.4-46.3); Red Blood Count 3.66 M/uL (4.7-6.1); White Blood Count 3.33 K/uL (4.8-10.8)
[2021-01-21 06:02] LABS: Albumin Globulin Ratio 0.4 (0.9-2); Albumin Level 1.8 gm/dl (3.4-5.0); BUN Creatinine Ratio 10.8 (10-20); Bilirubin,Total 0.5 mg/dl (0.2-1); Calcium 7.9 mg/dl (8.5-10.1); Creatinine Clr Calc Pharmacy 90.1 ml/min; Est GFR (African American) 82.9 ml/min; Est GFR (Non-African American) 71.5 ml/min; Globulin 4.5 gm/dl (2.5-4.0); Magnesium 1.7 mg/dl (1.8-2.4); Potassium 4.3 mmol/L (3.5-5.1); Total Protein 6.3 gm/dl (6.4-8.2)
[2021-01-21] MEDS: INSULIN ASPART 100 UNITS/ML 3 ML PEN SC SCH ×5 (06:04→20:24)
[2021-01-21] MEDS: HEPARIN SOD 5,000 UNIT/0.5 ML VIAL SQ SCH ×3 (06:05→20:30)
[2021-01-21 06:07] LABS: RBC Morphology Unremarkable
--- NOTE | 2021-01-21 06:23 | Ultrasound Report ---
BILATERAL LOWER EXTREMITY VENOUS DOPPLER CLINICAL HISTORY: b/l leg swelling COMPARISON STUDY: Bilateral lower extremity venous Doppler ultrasound October 14, 2020. TECHNIQUE: Sonography of the deep venous system of the bilateral lower extremities was performed. Co mpression and augmentation were evaluated. FINDINGS: The bilateral common femoral, superficial femoral and popliteal veins were compressible. A ugmentation was normal. Flow was shown within the deep calf vessels although calf vessels were subopt imally assessed due to lower extremity edema. Prominent bilateral inguinal lymph nodes are noted. Ind ex right inguinal lymph node measures 2.2 x 1.1 x 3 cm an index left inguinal node measures 2.3 x 1 x 2.6 cm. These nodes were not evident on prior ultrasound of October 14, 2020. Cortex of the nodes is mi ldly thickened. IMPRESSION: 1. No evidence of deep venous thrombus within the bilateral lower extremities. 2. Mildly enlarged bilateral inguinal lymph nodes. These are nonspecific and may be reactive. However , follow-up ultrasound in 3 months to ensure resolution is recommended and to exclude the less likely possibility of a lymphoproliferative or other neoplastic process. ACT 112: Negative or not required by law. Electronically signed by: Won Amos M.D. 01/21/2021 6:21 AM
--- NOTE | 2021-01-21 06:24 | XRay Report ---
XR chest 1V portable CLINICAL HISTORY: Leg swelling. COMPARISON STUDY: Chest CT January 16, 2020. Chest radiograph October 13, 2020 FINDINGS: Lung volumes are normal. Lungs are clear. There is no pneumothorax or pleural effusion. Car diac size is stable. Mediastinal contours are normal. There is no evidence for pulmonary edema. IMPRESSION: No acute cardiopulmonary findings. No change in appearance of the chest. ACT 112: Negative or not required by law. Electronically signed by: Won Amos M.D. 01/21/2021 6:23 AM
--- NOTE | 2021-01-21 07:16 | Ultrasound Report ---
US abdomen ltd ascites CLINICAL HISTORY: Abdominal distention. Assess for ascites. COMPARISON STUDY: Right upper quadrant ultrasound October 24, 2020. TECHNIQUE: Sonography of the abdomen and pelvis was performed to assess for ascites. FINDINGS: No ascites was identified within the abdomen or pelvis. Incidental note was made of increas ed hepatic echogenicity consistent with hepatic steatosis. IMPRESSION: 1. No ascites. 2. Hepatic steatosis. ACT 112: Negative or not required by law. Electronically signed by: Won Amos M.D. 01/21/2021 7:14 AM
[2021-01-21] MEDS: CYANOCOBALAMIN 500 MCG TABLET (VITAMIN B-12) PO SCH (08:30)
[2021-01-21] MEDS: FOLIC ACID 1 MG TAB PO SCH (08:30)
[2021-01-21] MEDS: ASPIRIN 81 MG ECTAB PO SCH (08:30)
[2021-01-21] MEDS: ATORVASTATIN 40 MG TAB PO SCH (08:30)
[2021-01-21] MEDS: VENLAFAXINE HCL XR 150 MG CAPXR PO SCH (08:30)
[2021-01-21] MEDS: METOPROLOL SUCC 25MG EXT REL TAB PO SCH (08:31)
[2021-01-21] MEDS: MULTIVITAMIN TAB PO SCH (08:31)
[2021-01-21] MEDS: THIAMINE HCL 100 MG TAB PO SCH (08:32)
[2021-01-21] MEDS ORDERED: MULTIVITAMIN TAB PO SCH (09:00)
[2021-01-21] MEDS: BUPRENORPHINE/NALOXONE 8/2 MG TAB SL SCH ×2 (09:36→20:30)
[2021-01-21] MEDS: GABAPENTIN 600 MG TAB PO SCH ×3 (09:36→18:40)
[2021-01-21] MEDS ORDERED: MAGNESIUM SULFATE / D5W 1 GM/100 ML BAG IV ONE (10:00)
[2021-01-21] MEDS: MAGNESIUM SULFATE / D5W 1 GM/100 ML BAG IV SCH ×2 (14:43→17:31)
[2021-01-21] MEDS ORDERED: MAGNESIUM SULFATE 1GM / D5W BAG IV ONE (16:34)
[2021-01-21] MEDS: INSULIN GLARGINE SOLOSTAR 100 UNITS/ML 3 ML PEN SC SCH (20:26)
[2021-01-21] MEDS: DOXYCYCLINE HYCLATE 100 MG CAP PO SCH (20:30)
--- NOTE | 2021-01-21 23:49 | Communication Note ---
Date of Service: January 21, 2021 Patient was seen when transfer to his room from the ER. Lying in bed very sleepy and drowsy. I was able to wake him up but while he was talking to me he was falling back to sleep and was unable to keep his eyes open. He did not look in any acute distress. Abdominal ultrasound showed no ascites was identified within the abdomen or pelvis. Hepatic steatosis noted. We will continue alcohol withdrawal protocol with gabapentin and Ativan. Will monitor closely for sign of alcohol withdrawal DT. PT/OT eval fall and aspiration precaution. Patient will benefit from alcohol rehab facility. Continue monitor closely. MD Delphine
[2021-01-22] MEDS: GABAPENTIN 600 MG TAB PO SCH ×3 (01:11→16:53)
[2021-01-22] MEDS: HEPARIN SOD 5,000 UNIT/0.5 ML VIAL SQ SCH ×3 (05:10→21:26)
[2021-01-22] MEDS: ASPIRIN 81 MG ECTAB PO SCH (08:52)
[2021-01-22] MEDS: MULTIVITAMIN TAB PO SCH (08:52)
[2021-01-22] MEDS: FOLIC ACID 1 MG TAB PO SCH (08:53)
[2021-01-22] MEDS: THIAMINE HCL 100 MG TAB PO SCH (08:53)
[2021-01-22] MEDS: METOPROLOL SUCC 25MG EXT REL TAB PO SCH (08:53)
[2021-01-22] MEDS: VENLAFAXINE HCL XR 150 MG CAPXR PO SCH (08:53)
[2021-01-22] MEDS: CYANOCOBALAMIN 500 MCG TABLET (VITAMIN B-12) PO SCH (08:53)
[2021-01-22] MEDS: ATORVASTATIN 40 MG TAB PO SCH (08:53)
[2021-01-22] MEDS: INSULIN GLARGINE SOLOSTAR 100 UNITS/ML 3 ML PEN SC SCH ×2 (08:54→21:26)
[2021-01-22] MEDS: DOXYCYCLINE HYCLATE 100 MG CAP PO SCH ×2 (08:54→22:55)
[2021-01-22] MEDS: INSULIN ASPART 100 UNITS/ML 3 ML PEN SC SCH ×4 (08:54→20:23)
[2021-01-22] MEDS: LORazepam 1 MG/2 ML VIAL IV PRN ×3 (09:03→14:58)
[2021-01-22] MEDS: BUPRENORPHINE/NALOXONE 8/2 MG TAB SL SCH ×2 (09:03→22:55)
[2021-01-22 11:16] LABS: Hematocrit (blood only) 34.1 % (42-52); Mean Corpuscular Hemoglobin 30.6 pg (25-34); Mean Corpuscular Hgb Conc 32.3 g/dL (32-36); Mean Platelet Volume 9.9 fL (7.4-10.4); Platelet Count 123 K/uL (130-400); RDW Coefficient of Variation 14.1 % (11.5-14.5); RDW Standard Deviation 49.2 fL (36.4-46.3); Red Blood Count 3.59 M/uL (4.7-6.1); White Blood Count 3.96 K/uL (4.8-10.8)
[2021-01-22 11:32] LABS: BUN Creatinine Ratio 16.4 (10-20); Calcium 8.4 mg/dl (8.5-10.1); Creatinine Clr Calc Pharmacy 102.1 ml/min; Est GFR (African American) 98.3 ml/min; Est GFR (Non-African American) 84.8 ml/min; Magnesium 1.7 mg/dl (1.8-2.4); Potassium 4.2 mmol/L (3.5-5.1)
[2021-01-22] MEDS ORDERED: MAGNESIUM SULFATE / D5W 1 GM/100 ML BAG IV ONE (13:00)
[2021-01-22] MEDS: LORazepam 2 MG/4 ML VIAL IV PRN ×3 (13:54→23:22)
--- NOTE | 2021-01-22 23:55 | Hospitalist Progress Note ---
Date of Service January 22, 2021 Assessment & Plan (1) Alcohol abuse: (2) Alcohol withdrawal syndrome: Plan: Recently discharged for alcohol abuse 01/20 He said that he drank alcohol once he gets home from the hospital Failed recent inpatient rehabilitation within 2 weeks of discharge. He is back again to detox and try another rehab program. During his last admission case management said that that all rehab options have been exhausted and all declined him On alcohol withdrawal protocol with gabapentin and Ativan Counseling on alcohol cessation Continue thiamine and folic acid Monitor closely for sign of alcohol withdrawal and DT Patient agreed to go to rehab Fall precaution Transaminitis: Likely related to recent alcohol use Continue monitor LFT Electrolyte imbalance Mag 1.7 today Mag replaced continue monitor electrolytes Inguinal lymph node enlarged Venous u/s showed mildly enlarged bilateral inguinal lymph nodes. These are nonspecific and may be reactive. Follow-up ultrasound in 3 months to ensure resolution is recommended Diabetes mellitus type 2 Most recent hemoglobin A1c 8.2 Continue Lantus and insulin sliding scale Continue monitor BS Questionable lower extremity cellulitis Erythema and swelling improved Continue doxycycline for now Tobacco use disorder: Continue NicoDerm patch Counseling on smoking cessation Chronic pain syndrome: On Suboxone twice daily per home regimen. Stable Mood disorder: Continue same per home regimen CATALINO (obstructive sleep apnea): Records indicate patient is noncompliant with CPAP HTN (hypertension): BP elevated Will resume BP meds Continue Norvasc 10 mg daily, furosemide 80 mg daily, losartan 50 mg daily, Toprol-XL 75 mg daily Continue monitor BMP DVT prophylaxis SQ heparin Monitor for sign of bleeding due to heparin subcu Discharge planning issues: All rehab options exhausted during last admission CODE STATUS full code Admission and Anticipated Discharge Date Admission Date: January 21, 2021 Subjective Patient was seen and examined for follow-up of alcohol abuse Sitting at the edge of the bed waiting to eat his lunch with no acute distress Patient is more awake today compared to yesterday He said that he did not want to come back to the hospital but when he fell on his knee due to weakness he change his mind to get back in the hospital He said that he drank alcohol when he got discharged from the hospital on 01/19 He seems to be on and off confused and restlessness Denies any chest pain, palpitation, dizziness, shortness of breath. Review of Systems Review of Systems: All systems reviewed & are unremarkable except as noted in Subjective Physical Exam Physical Exam: General- No acute distress Head- atraumatic Eyes- PERRL, EOMI, ENT- oropharynx clear Neck- supple, no JVD Lungs- clear to auscultation Heart- regular rhythm; no murmur Abdomen- normal bowel sounds, soft, nontender Extremities- no calf tenderness Neuro- alert, awake, +positive tremors (B/L hands) Skin- warm & dry Results & Data Results & Data ([facility]) Vital Signs (Past 12 Hours) Vital Signs Temp Pulse Pulse Resp BP BP Pulse Ox 01/22/21 23:33 66 01/22/21 23:06 36.5 C 67 16 171/91 H 97 01/22/21 19:19 36.8 C 76 16 168/85 H 96 01/22/21 16:50 37.5 C 77 18 165/98 H 90 01/22/21 16:05 90
[2021-01-23] MEDS: GABAPENTIN 600 MG TAB PO SCH ×2 (05:14→17:47)
[2021-01-23] MEDS: HEPARIN SOD 5,000 UNIT/0.5 ML VIAL SQ SCH ×3 (05:14→22:01)
[2021-01-23 06:58] LABS: BUN Creatinine Ratio 21.1 (10-20); Bilirubin,Total 0.8 mg/dl (0.2-1); Calcium 8.5 mg/dl (8.5-10.1); Creatinine Clr Calc Pharmacy 117.9 ml/min; Est GFR (African American) 112.4 ml/min; Est GFR (Non-African American) 96.9 ml/min; Magnesium 1.9 mg/dl (1.8-2.4)
[2021-01-23 06:59] LABS: Albumin Globulin Ratio 0.4 (0.9-2); Globulin 4.8 gm/dl (2.5-4.0); Total Protein 6.8 gm/dl (6.4-8.2)
[2021-01-23] MEDS: DOXYCYCLINE HYCLATE 100 MG CAP PO SCH ×2 (08:07→20:22)
[2021-01-23] MEDS: FOLIC ACID 1 MG TAB PO SCH (08:07)
[2021-01-23] MEDS: VENLAFAXINE HCL XR 150 MG CAPXR PO SCH (08:07)
[2021-01-23] MEDS: METOPROLOL SUCC 25MG EXT REL TAB PO SCH (08:07)
[2021-01-23] MEDS: THIAMINE HCL 100 MG TAB PO SCH (08:07)
[2021-01-23] MEDS: MULTIVITAMIN TAB PO SCH (08:07)
[2021-01-23] MEDS: ATORVASTATIN 40 MG TAB PO SCH (08:07)
[2021-01-23] MEDS: BUPRENORPHINE/NALOXONE 8/2 MG TAB SL SCH ×2 (08:07→20:25)
[2021-01-23] MEDS: ASPIRIN 81 MG ECTAB PO SCH (08:07)
[2021-01-23] MEDS: CYANOCOBALAMIN 500 MCG TABLET (VITAMIN B-12) PO SCH (08:07)
[2021-01-23] MEDS: INSULIN GLARGINE SOLOSTAR 100 UNITS/ML 3 ML PEN SC SCH ×2 (08:21→20:23)
[2021-01-23] MEDS: INSULIN ASPART 100 UNITS/ML 3 ML PEN SC SCH ×4 (08:22→20:23)
[2021-01-23] MEDS: LORazepam 2 MG/4 ML VIAL IV PRN ×4 (15:42→22:43)
--- NOTE | 2021-01-23 21:45 | Hospitalist Progress Note ---
Date of Service January 23, 2021 Assessment & Plan (1) Alcohol abuse: (2) Alcohol withdrawal syndrome: Plan: Recently discharged for alcohol abuse 01/20 He said that he drank alcohol once he gets home from the hospital Failed recent inpatient rehabilitation within 2 weeks of discharge. He is back again to detox and try another rehab program. During his last admission case management said that that all rehab options have been exhausted and all declined him On alcohol withdrawal protocol with gabapentin and Ativan Counseling on alcohol cessation Continue thiamine and folic acid Monitor closely for sign of alcohol withdrawal and DT Patient agreed to go to rehab Fall precaution Transaminitis: Likely related to recent alcohol use LFTs slightly increased with AST 119 Continue monitor LFT Electrolyte imbalance Mag 1.9 today Mag replaced continue monitor electrolytes Inguinal lymph node enlarged Venous u/s showed mildly enlarged bilateral inguinal lymph nodes. These are nonspecific and may be reactive. Follow-up ultrasound in 3 months to ensure resolution is recommended Diabetes mellitus type 2 Most recent hemoglobin A1c 8.2 Continue Lantus and insulin sliding scale Continue monitor BS Questionable lower extremity cellulitis Erythema and swelling improved Continue doxycycline for now Tobacco use disorder: Continue NicoDerm patch Counseling on smoking cessation Chronic pain syndrome: On Suboxone twice daily per home regimen. Stable Mood disorder: Continue same per home regimen CATALINO (obstructive sleep apnea): Records indicate patient is noncompliant with CPAP HTN (hypertension): BP elevated Will resume BP meds Continue Norvasc 10 mg daily, furosemide 80 mg daily, losartan 50 mg daily, Toprol-XL 75 mg daily Continue monitor BMP DVT prophylaxis SQ heparin Monitor for sign of bleeding due to heparin subcu Discharge planning issues: All rehab options exhausted during last admission CODE STATUS full code Admission and Anticipated Discharge Date Admission Date: January 21, 2021 Subjective Patient was seen and examined for follow-up of alcohol abuse Sitting at the edge of the bed with no acute distress talking playing on his cell phone Later today he has been walking in the hallway His mental status, tremors are much better today Denies any chest pain, palpitation, dizziness, shortness of breath. Review of Systems Review of Systems: All systems reviewed & are unremarkable except as noted in Subjective Physical Exam Physical Exam: General- No acute distress Head- atraumatic Eyes- PERRL, EOMI, ENT- oropharynx clear Neck- supple, no JVD Lungs- clear to auscultation Heart- regular rhythm; no murmur Abdomen- normal bowel sounds, soft, nontender Extremities- no calf tenderness Neuro- alert, awake, +positive tremors (B/L hands) Skin- warm & dry Results & Data Results & Data ([facility]) Vital Signs (Past 12 Hours) Vital Signs Temp Pulse Resp BP Pulse Ox 01/23/21 19:48 36.7 C 74 17 177/95 H 92 01/23/21 16:11 36.6 C 72 18 170/100 H 96 01/23/21 11:54 36.9 C 76 22 157/83 H 94
[2021-01-24] MEDS: HEPARIN SOD 5,000 UNIT/0.5 ML VIAL SQ SCH ×3 (06:11→20:38)
[2021-01-24] MEDS: BUPRENORPHINE/NALOXONE 8/2 MG TAB SL SCH ×2 (08:02→20:37)
[2021-01-24] MEDS: VENLAFAXINE HCL XR 150 MG CAPXR PO SCH (08:03)
[2021-01-24] MEDS: METOPROLOL SUCC 25MG EXT REL TAB PO SCH (08:03)
[2021-01-24] MEDS: DOXYCYCLINE HYCLATE 100 MG CAP PO SCH ×2 (08:03→20:38)
[2021-01-24] MEDS: THIAMINE HCL 100 MG TAB PO SCH (08:03)
[2021-01-24] MEDS: FOLIC ACID 1 MG TAB PO SCH (08:03)
[2021-01-24] MEDS: CYANOCOBALAMIN 500 MCG TABLET (VITAMIN B-12) PO SCH (08:03)
[2021-01-24] MEDS: ASPIRIN 81 MG ECTAB PO SCH (08:03)
[2021-01-24] MEDS: ATORVASTATIN 40 MG TAB PO SCH (08:03)
[2021-01-24] MEDS: MULTIVITAMIN TAB PO SCH (08:03)
[2021-01-24] MEDS ORDERED: FUROSEMIDE 40 MG/4 ML VIAL IV ONE (08:15)
[2021-01-24 08:41] LABS: Albumin Level 2.1 gm/dl (3.4-5.0); BUN Creatinine Ratio 20.7 (10-20); Calcium 8.7 mg/dl (8.5-10.1); Creatinine Clr Calc Pharmacy 98.5 ml/min; Est GFR (African American) 93.7 ml/min; Est GFR (Non-African American) 80.8 ml/min; Potassium 4.9 mmol/L (3.5-5.1)
[2021-01-24 08:44] LABS: Albumin Globulin Ratio 0.4 (0.9-2); Bilirubin,Total 0.7 mg/dl (0.2-1); Globulin 4.8 gm/dl (2.5-4.0); Total Protein 6.9 gm/dl (6.4-8.2)
[2021-01-24] MEDS: amLODIPine BESYLATE 5 MG TAB PO SCH (08:49)
[2021-01-24] MEDS: INSULIN GLARGINE SOLOSTAR 100 UNITS/ML 3 ML PEN SC SCH ×2 (08:50→20:38)
[2021-01-24] MEDS: INSULIN ASPART 100 UNITS/ML 3 ML PEN SC SCH ×4 (08:50→20:38)
--- NOTE | 2021-01-24 16:58 | Hospitalist Progress Note ---
Date of Service January 24, 2021 Assessment & Plan (1) Alcohol abuse: (2) Alcohol withdrawal syndrome: Plan: Recently discharged for alcohol abuse 01/20 He said that he drank alcohol once he gets home from the hospital Failed recent inpatient rehabilitation within 2 weeks of discharge. He is back again to detox and try another rehab program. During his last admission case management said that that all rehab options have been exhausted and all declined him On alcohol withdrawal protocol with gabapentin and Ativan Counseling on alcohol cessation Continue thiamine and folic acid Monitor closely for sign of alcohol withdrawal and DT Patient agreed to go to rehab Fall precaution Transaminitis: Likely related to recent alcohol use AST slightly improved to 102 Continue monitor LFT Electrolyte imbalance Mag 1.9 Continue monitor electrolytes Inguinal lymph node enlarged Venous u/s showed mildly enlarged bilateral inguinal lymph nodes. These are nonspecific and may be reactive. Follow-up ultrasound in 3 months to ensure resolution is recommended Diabetes mellitus type 2 Most recent hemoglobin A1c 8.2 Continue Lantus and insulin sliding scale Continue monitor BS Questionable lower extremity cellulitis Erythema and swelling improved Continue doxycycline for now Tobacco use disorder: Continue NicoDerm patch Counseling on smoking cessation Chronic pain syndrome: On Suboxone twice daily per home regimen. Stable Mood disorder: Continue same per home regimen CATALINO (obstructive sleep apnea): Records indicate patient is noncompliant with CPAP HTN (hypertension): BP elevated Will resume BP meds Continue Norvasc 10 mg daily, furosemide 80 mg daily, losartan 50 mg daily, Toprol-XL 75 mg daily Continue monitor BMP DVT prophylaxis SQ heparin Monitor for sign of bleeding due to heparin subcu Discharge planning issues: All rehab options exhausted during last admission Waiting for placement CODE STATUS full code Admission and Anticipated Discharge Date Admission Date: January 21, 2021 Subjective Patient was seen and examined for follow-up of alcohol abuse Sitting at the edge of the bed with no acute distress sending text from his cell His mental status, tremors are much better today Denies any chest pain, palpitation, dizziness, shortness of breath. Review of Systems Review of Systems: All systems reviewed & are unremarkable except as noted in Subjective Physical Exam Physical Exam: General- No acute distress Head- atraumatic Eyes- PERRL, EOMI, ENT- oropharynx clear Neck- supple, no JVD Lungs- clear to auscultation Heart- regular rhythm; no murmur Abdomen- normal bowel sounds, soft, nontender Extremities- no calf tenderness Neuro- alert, awake, +very mild positive tremors (B/L hands) Skin- warm & dry Results & Data Results & Data ([facility]) Vital Signs (Past 12 Hours) Vital Signs Temp Pulse Resp BP Pulse Ox 01/24/21 15:56 36.8 C 65 18 169/88 H 93 01/24/21 11:40 36.8 C 68 18 146/81 H 94 01/24/21 08:07 36.6 C 68 20 174/92 H 95
[2021-01-24] MEDS ORDERED: GABAPENTIN 600 MG TAB PO SCH (18:00)
[2021-01-24] MEDS: LORazepam 1 MG/2 ML VIAL IV PRN ×2 (20:39→22:38)
[2021-01-25] MEDS: LORazepam 2 MG/4 ML VIAL IV PRN (02:52)
[2021-01-25] MEDS: HEPARIN SOD 5,000 UNIT/0.5 ML VIAL SQ SCH ×3 (05:28→20:57)
[2021-01-25] MEDS: VENLAFAXINE HCL XR 150 MG CAPXR PO SCH (08:33)
[2021-01-25] MEDS: ASPIRIN 81 MG ECTAB PO SCH (08:33)
[2021-01-25] MEDS: THIAMINE HCL 100 MG TAB PO SCH (08:33)
[2021-01-25] MEDS: MULTIVITAMIN TAB PO SCH (08:33)
[2021-01-25] MEDS: FUROSEMIDE 40 MG TAB PO SCH (08:34)
[2021-01-25] MEDS: CYANOCOBALAMIN 500 MCG TABLET (VITAMIN B-12) PO SCH (08:34)
[2021-01-25] MEDS: amLODIPine BESYLATE 5 MG TAB PO SCH (08:34)
[2021-01-25] MEDS: ATORVASTATIN 40 MG TAB PO SCH (08:34)
[2021-01-25] MEDS: DOXYCYCLINE HYCLATE 100 MG CAP PO SCH ×2 (08:35→20:14)
[2021-01-25] MEDS: FOLIC ACID 1 MG TAB PO SCH (08:35)
[2021-01-25] MEDS: INSULIN GLARGINE SOLOSTAR 100 UNITS/ML 3 ML PEN SC SCH ×2 (08:35→20:54)
[2021-01-25] MEDS: METOPROLOL SUCC 25MG EXT REL TAB PO SCH (08:35)
[2021-01-25] MEDS: INSULIN ASPART 100 UNITS/ML 3 ML PEN SC SCH ×4 (08:38→20:55)
[2021-01-25] MEDS: BUPRENORPHINE/NALOXONE 8/2 MG TAB SL SCH ×2 (08:40→20:14)
--- NOTE | 2021-01-25 21:16 | Hospitalist Progress Note ---
Date of Service January 25, 2021 Assessment & Plan (1) Alcohol abuse: (2) Alcohol withdrawal syndrome: Plan: Recently discharged for alcohol abuse 01/20 He said that he drank alcohol once he gets home from the hospital Failed recent inpatient rehabilitation within 2 weeks of discharge. He is back again to detox and try another rehab program. During his last admission case management said that that all rehab options have been exhausted and all declined him On alcohol withdrawal protocol with gabapentin and Ativan Counseling on alcohol cessation Continue thiamine and folic acid No sign of alcohol withdrawal and DT noted Patient agreed to go to rehab Fall precaution Waiting for placement to rehab Transaminitis: Likely related to recent alcohol use AST slightly improved to 102 Continue monitor LFT Electrolyte imbalance Mag 1.9 Continue monitor electrolytes Inguinal lymph node enlarged Venous u/s showed mildly enlarged bilateral inguinal lymph nodes. These are nonspecific and may be reactive. Follow-up ultrasound in 3 months to ensure resolution is recommended Diabetes mellitus type 2 Most recent hemoglobin A1c 8.2 Continue Lantus and insulin sliding scale Continue monitor BS Questionable lower extremity cellulitis Erythema and swelling improved Continue doxycycline for now Tobacco use disorder: Continue NicoDerm patch Counseling on smoking cessation Chronic pain syndrome: On Suboxone twice daily per home regimen. Stable Mood disorder: Continue same per home regimen CATALINO (obstructive sleep apnea): Records indicate patient is noncompliant with CPAP HTN (hypertension): BP elevated Will resume BP meds Continue Norvasc 10 mg daily, furosemide 80 mg daily, losartan 50 mg daily, Toprol-XL 75 mg daily Continue monitor BMP DVT prophylaxis SQ heparin Monitor for sign of bleeding due to heparin subcu Discharge planning issues: All rehab options exhausted during last admission Waiting for placement CODE STATUS full code Admission and Anticipated Discharge Date Admission Date: January 21, 2021 Subjective Patient was seen and examined for follow-up of alcohol abuse Sitting at the edge of the bed with no acute distress His mental status, tremors continue to get better Denies any chest pain, palpitation, dizziness, shortness of breath. Review of Systems Review of Systems: All systems reviewed & are unremarkable except as noted in Subjective Physical Exam Physical Exam: General- No acute distress Head- at raumatic Eyes- PER RL, EOMI, ENT- diego pharynx clear Neck - supple, no JVD L ungs- clear to aus cultation Heart- r egular rhythm; no murmur Abdomen- no rmal bowel sounds, soft, nontender E xtremities- no ca lf tenderness Neur o- alert, awake, + positive tremors ( B/L hands) Skin- w arm & dry Results & Data Results & Data ([facility]) Vital Signs (Past 12 Hours) Vital Signs Temp Pulse Pulse Resp BP BP Pulse Ox 01/25/21 20:02 36.7 C 77 18 178/91 H 95 01/25/21 15:57 37.0 C 73 18 167/86 H 93 01/25/21 15:27 71 01/25/21 11:49 36.4 C L 73 18 145/76 H 92
[2021-01-25] MEDS: TRIAMCINOLONE ACET 0.1% CR 15 GM TUBE EXT SCH (22:42)
[2021-01-25] MEDS: LORazepam 1 MG/2 ML VIAL IV PRN (22:42)
[2021-01-25] MEDS: hydrALAZINE HCL 25 MG TAB PO SCH (22:42)
[2021-01-26] MEDS: HEPARIN SOD 5,000 UNIT/0.5 ML VIAL SQ SCH (06:14)
[2021-01-26] MEDS: DOXYCYCLINE HYCLATE 100 MG CAP PO SCH (08:01)
[2021-01-26] MEDS: FOLIC ACID 1 MG TAB PO SCH (08:01)
[2021-01-26] MEDS: THIAMINE HCL 100 MG TAB PO SCH (08:01)
[2021-01-26] MEDS: VENLAFAXINE HCL XR 150 MG CAPXR PO SCH (08:01)
[2021-01-26] MEDS: hydrALAZINE HCL 25 MG TAB PO SCH (08:02)
[2021-01-26] MEDS: CYANOCOBALAMIN 500 MCG TABLET (VITAMIN B-12) PO SCH (08:02)
[2021-01-26] MEDS: ATORVASTATIN 40 MG TAB PO SCH (08:02)
[2021-01-26] MEDS: MULTIVITAMIN TAB PO SCH (08:03)
[2021-01-26] MEDS: amLODIPine BESYLATE 5 MG TAB PO SCH (08:03)
[2021-01-26] MEDS: ASPIRIN 81 MG ECTAB PO SCH (08:03)
[2021-01-26] MEDS: FUROSEMIDE 40 MG TAB PO SCH (08:03)
[2021-01-26] MEDS: METOPROLOL SUCC 25MG EXT REL TAB PO SCH (08:03)
[2021-01-26] MEDS: INSULIN GLARGINE SOLOSTAR 100 UNITS/ML 3 ML PEN SC SCH (08:04)
[2021-01-26] MEDS: INSULIN ASPART 100 UNITS/ML 3 ML PEN SC SCH ×2 (08:07→12:23)
[2021-01-26] MEDS: BUPRENORPHINE/NALOXONE 8/2 MG TAB SL SCH (08:10)
[2021-01-26] MEDS: TRIAMCINOLONE ACET 0.1% CR 15 GM TUBE EXT SCH (08:16)
--- NOTE | 2021-01-26 12:18 | Discharge Summary ---
Date of Service January 26, 2021 Admission HPI Per Admitting Provider History obtained from patient and records. Medical history significant for chronic diastolic heart failure secondary to ischemic cardiomyopathy (EF 55-60 %, TTE 2020), CAD status post stent, hypertension, hyperlipidemia, COPD as per records, DM 2 insulin requiring, anxiety/mood disorder, chronic anemia (baseline hemoglobin 11-12), ongoing tobacco/alcohol abuse, history alcohol withdrawal seizures, chronic pain on Suboxone. Last confinement November 2020 for alcohol withdrawal. Unsuccessful attempts to get patient into inpatient rehab. Patient started drinking again shortly after discharge from the hospital. 2 days ago, patient noted increased bilateral leg swelling followed by seepage. No fever, no chills. No unusual chest pain, or S OB. Abdomen distended as per patient. Patient not sure about weight gain. IV Ceftriaxone given at the ER for cellulitis. Medical Historyas above Surgical History : None Family History : Heart disease, diabetes Personal/Social history : 1/2 to 3/4 pack daily, alcohol abuse, currently unemployed Admission Exam Per Admitting Provider GENERAL: Comfortable, obese, tremulous, no respiratory distress SKIN: pallor, warm HEENT: Pale palpebral conjunctivae, no ptosis, dry buccal mucosa NECK : Supple, short neck, no tenderness CHEST : Decreased breath sounds, expiratory wheezes that clear on coughing , no tenderness HEART : RRR, systolic murmur ABDOMEN: Some distention, nontender EXTREMITIES : Bilateral LE erythema with minimal tenderness,no other conspicuous deformities noted NEUROLOGIC : Coherent, no facial asymmetry, tremulous Principal Diagnosis Alcohol abuse: Alcohol withdrawal syndrome Transaminitis: Electrolyte imbalance Inguinal lymph node enlarged Diabetes mellitus type 2 Questionable lower extremity cellulitis Tobacco use disorder: Chronic pain syndrome: Mood disorder: CATALINO (obstructive sleep apnea): HTN (hypertension): Discharge Exam General- No acute distress Head- atraumatic Eyes- PERRL, EOMI, ENT- oropharynx clear Neck- supple, no JVD Lungs- clear to auscultation Heart- regular rhythm; no murmur Abdomen- normal bowel sounds, soft, nontender Extremities- no calf tenderness Neuro- alert, awake, +positive tremors (B/L hands) Skin- warm & dry Discharge Data Allergies Allergy/AdvReac Type Severity Reaction Status Date / Time No Known Allergies Allergy Verified 01/21/21 02:08 Consultations 01/21/21 02:23 ED Decision to Admit Stat Ordered Studies 01/20/21 22:20 US venous doppler LE BI Urgent 01/21/21 02:44 US abdomen ltd ascites Urgent US abdomen ltd ascites CLINICAL HISTORY: Abdominal distention. Assess for ascites. COMPARISON STUDY: Right upper quadrant ultrasound October 24, 2020. TECHNIQUE: Sonography of the abdomen and pelvis was performed to assess for ascites. FINDINGS: No ascites was identified within the abdomen or pelvis. Incidental note was made of increased hepatic echogenicity consistent with hepatic steatosis. IMPRESSION: 1. No ascites. 2. Hepatic steatosis. ACT 112: Negative or not required by law. Electronically signed by: Won Amos M.D. 01/21/2021 7:14 AM Dictated:01/21/21712 Transcribed: 01/21/21712 XR chest 1V portable CLINICAL HISTORY: Leg swelling. COMPARISON STUDY: Chest CT January 16, 2020. Chest radiograph October 13, 2020 FINDINGS: Lung volumes are normal. Lungs are clear. There is no pneumothorax or pleural effusion. Cardiac size is stable. Mediastinal contours are normal. There is no evidence for pulmonary edema. IMPRESSION: No acute cardiopulmonary findings. No change in appearance of the chest. ACT 112: Negative or not required by law. Electronically signed by: Won Amos M.D. 01/21/2021 6:23 AM Dictated:01/21/21621 Transcribed: 01/21/21621 BILATERAL LOWER EXTREMITY VENOUS DOPPLER CLINICAL HISTORY: b/l leg swelling COMPARISON STUDY: Bilateral lower extremity venous Doppler ultrasound October 14, 2020. TECHNIQUE: Sonography of the deep venous system of the bilateral lower extremities was performed. Compression and augmentation were evaluated. FINDINGS: The bilateral common femoral, superficial femoral and popliteal veins were compressible. Augmentation was normal. Flow was shown within the deep calf vessels although calf vessels were suboptimally assessed due to lower extremity edema. Prominent bilateral inguinal lymph nodes are noted. Index right inguinal lymph node measures 2.2 x 1.1 x 3 cm an index left inguinal node measures 2.3 x 1 x 2.6 cm. These nodes were not evident on prior ultrasound of October 14, 2020. Cortex of the nodes is mildly thickened. IMPRESSION: 1. No evidence of deep venous thrombus within the bilateral lower extremities. 2. Mildly enlarged bilateral inguinal lymph nodes. These are nonspecific and may be reactive. However, follow-up ultrasound in 3 months to ensure resolution is recommended and to exclude the less likely possibility of a lymphoproliferative or other neoplastic process. ACT 112: Negative or not required by law. Electronically signed by: Won Amos M.D. 01/21/2021 6:21 AM Dictated:01/21/21619 Transcribed: 01/21/21619 Hospital Course (1) Alcohol abuse: (2) Alcohol withdrawal syndrome: Recently discharged for alcohol abuse 01/20 He said that he drank alcohol once he gets home from the hospital Failed recent inpatient rehabilitation within 2 weeks of discharge. He is back again to detox and try another rehab program. During his last admission case management said that that all rehab options have been exhausted and all declined him On alcohol withdrawal protocol with gabapentin and Ativan Counseling on alcohol cessation Continue thiamine and folic acid No sign of alcohol withdrawal and DT noted Patient agreed to go to rehab Fall precaution Waiting for placement to rehab Transaminitis: Likely related to recent alcohol use AST slightly improved to 102 Continue monitor LFT Electrolyte imbalance Mag 1.9 Continue monitor electrolytes Inguinal lymph node enlarged Venous u/s showed mildly enlarged bilateral inguinal lymph nodes. These are nonspecific and may be reactive. Follow-up ultrasound in 3 months to ensure resolution is recommended Diabetes mellitus type 2 Most recent hemoglobin A1c 8.2 Continue Lantus and insulin sliding scale Continue monitor BS Questionable lower extremity cellulitis Erythema and swelling improved Continue doxycycline for now Tobacco use disorder: Continue NicoDerm patch Counseling on smoking cessation Chronic pain syndrome: On Suboxone twice daily per home regimen. Stable Mood disorder: Continue same per home regimen CATALINO (obstructive sleep apnea): Records indicate patient is noncompliant with CPAP HTN (hypertension): BP elevated Will resume BP meds Continue Norvasc 10 mg daily, furosemide 80 mg daily, losartan 50 mg daily, Toprol-XL 75 mg daily Continue monitor BMP DVT prophylaxis SQ heparin Monitor for sign of bleeding due to heparin subcu Discharge planning issues: All rehab options exhausted during last admission Waiting for placement CODE STATUS full code Total Time Total Time Spent Total Time Spent (In Minutes): 35 minutes Discharge Plan Discharge Items Patient Disposition: Drug & Alcohol Rehab Reason For Visit: ETOH WITHDRAWAL, LE CELLULITIS Discharge Diagnosis: Alcohol abuse: Alcohol withdrawal syndrome Transaminitis: Electrolyte imbalance Inguinal lymph node enlarged Diabetes mellitus type 2 Questionable lower extremity cellulitis Tobacco use disorder: Chronic pain syndrome: Mood disorder: CATALINO (obstructive sleep apnea): HTN (hypertension): Activity: Resume your previous activity Non-emergency contact: Primary Care Provider Call non-emergency contact if: you have any medication questions Follow-up/Referrals: Charity Kasper MD [Primary Care Provider] - Diet: Heart Healthy Addtl Attending Provider Instructions: Follow up with your primary care provider once discharge from rehab Counseling on alcohol cessation Counseling on smoking cessation Continue monitor your blood pressure and your provider can adjust your blood pressure medication Continue monitor your blood sugar Fall precaution You will need Follow up ultrasound in 3 month to ensure resolution of the inguinal lymph node enlarged ( your provider will order it) Check LFT in 1 week to monitor your liver enzymes Pending Studies at Discharge: No Stand-Alone Forms: My [facility] [employer] Skilled Items Patient informed of condition?: Yes DNR: No Discharge Level of Care: Acute rehab Communicable Disease: No Discharge Prognosis: Stable Lines: None Urinary Catheter: No Medications and DC Order Prescriptions: New hydralazine 25 mg Tablet 25 mg PO BID Qty: 60 RF: 0 doxycycline hyclate 100 mg Capsule 100 mg PO BID Qty: 2 RF: 0 Continued insulin aspart U-100 [Novolog Flexpen U-100 Insulin] 100 unit/mL Insulin Pen See Rx Instructions .ROUTE .COMPLEX RF: 0 folic acid 1 mg tablet 1 mg PO QAM RF: 0 buprenorphine-naloxone 8-2 mg tablet, sublingual 1 tab SUBLINGUAL BID RF: 0 aspirin [Ecotrin Low Strength] 81 mg tablet,delayed release (DR/EC) 81 mg PO QAM RF: 0 gabapentin 300 mg Capsule 300 mg PO BID Qty: 60 RF: 0 magnesium oxide 400 mg (241.3 mg magnesium) Tablet 400 mg PO QAM Qty: 30 RF: 0 thiamine HCl (vitamin B1) [Vitamin B-1] 100 mg Tablet 100 mg PO QAM Qty: 30 RF: 1 venlafaxine 150 mg capsule,extended release 24hr 150 mg PO DAILY RF: 0 Levemir FlexTouch U-100 Insuln 100 unit/mL (3 mL) insulin pen 35 - 50 unit SUBCUT HS RF: 0 furosemide 40 mg Tablet 40 mg PO QAM Qty: 60 RF: 0 amlodipine [Norvasc] 5 mg Tablet 10 mg PO QAM Qty: 60 RF: 0 multivitamin Tablet 1 tab PO DAILY RF: 0 atorvastatin 80 mg Tablet 80 mg PO DAILY RF: 0 urea 20 % Cream 1 applic TOPICAL BID RF: 0 naloxone 0.4 mg/mL Solution 0 mg intranasal DIRECTED PRN (Reason: OVERSEDATION) RF: 0 cyanocobalamin (vitamin B-12) [Vitamin B-12] 1,000 mcg Tablet 1,000 mcg PO DAILY RF: 0 nitroglycerin [Nitrostat] 0.4 mg Tablet, Sublingual 0.4 mg sublingual DIRECTED PRN (Reason: Chest Pain) RF: 0 clotrimazole 1 % Cream 1 applic TOPICAL BID PRN (Reason: flare ups) RF: 0 Ozempic 1 mg/dose (2 mg/1.5 mL) Pen Injector 0.5 mg SUBCUT WK RF: 0 albuterol sulfate 2.5 mg /3 mL (0.083 %) Solution For Nebulization 2.5 mg INHALATION QID PRN (Reason: Shortness Of Breath Or Wheezing) RF: 0 disulfiram 500 mg tablet 500 mg PO DAILY Qty: 14 RF: 0 metoprolol succinate [Toprol XL] 50 mg tablet extended release 24 hr 75 mg PO QAM 30 Days Qty: 45 RF: 0 Discharge Orders: Discharge Order (Routine); Ordered 01/26/21 Ordered By: Ryan Akers Admission Data Admit Date/Time: 01/21/21 02:48 Attending Provider: Ryan Akers Admit Provider: Mirza Moreno Primary Care Provider: Charity Kasper Other Providers: Mirza Moreno
--- NOTE | 2021-02-03 13:38 | Emergency Department Note ---
History of Present Illness General Chief complaint: Swelling/Edema to Extremity Stated complaint: LEGS SWOLLEN, BLISTERS ON LEGS, FELL OUTSIDE Time Seen by Provider: 01/20/21 21:56 Source: patient Mode of arrival: ambulatory Limitations: no limitations History of Present Illness Maximum Pain Intensity: 8 This patient is a 55-year-old male who presents to the emergency department for evaluation of lower extremity swelling/redness. Patient admits to a history of alcoholism, with history of alcohol withdrawal seizures. He was recently admitted d/t withdrawal, and states he started drinking a few days after disc harge. He typically drinks a half gallon of vodka per day. He states that his legs have been swollen and painful for the past few weeks, he is unsure exactly when symptoms started. He denies chest pain or shortness of breath. Home Medications Medication Instructions Recorded Confirmed Type insulin aspart U-100 100 unit/mL See Rx Instructions .ROUTE .COMPLEX 12/16/17 01/21/21 History (3 mL) subcutaneous pen (Novolog Flexpen U-100 Insulin aspart) aspirin 81 mg tablet,delayed 81 mg PO QAM 08/26/19 01/21/21 History release (Ecotrin Low Strength) buprenorphine 8 mg-naloxone 2 mg 1 tab SUBLINGUAL BID 01/16/20 01/21/21 History sublingual tablet folic acid 1 mg tablet 1 mg PO QAM 01/16/20 01/21/21 History gabapentin 300 mg capsule 300 mg PO BID #60 cap 03/07/20 01/21/21 Rx magnesium oxide 400 mg (241.3 mg 400 mg PO QAM #30 tab 03/07/20 01/21/21 Rx magnesium) tablet thiamine HCl (vitamin B1) 100 mg 100 mg PO QAM #30 tab 03/07/20 01/21/21 Rx tablet (Vitamin B-1) albuterol sulfate 2.5 mg INHALATION QID PRN 07/24/20 01/21/21 History atorvastatin 80 mg tablet 80 mg PO DAILY 07/24/20 01/21/21 History clotrimazole 1 % topical cream 1 applic TOPICAL BID PRN 07/24/20 01/21/21 History cyanocobalamin (vitamin B-12) 1,000 mcg PO DAILY 07/24/20 01/21/21 History 1,000 mcg tablet (Vitamin B-12) multivitamin 1 tab PO DAILY 07/24/20 01/21/21 History naloxone 0.4 mg/mL injection 0 mg INTRANASAL DIRECTED PRN 07/24/20 01/21/21 History solution nitroglycerin 0.4 mg sublingual 0.4 mg SUBLINGUAL DIRECTED PRN 07/24/20 01/21/21 History tablet (Nitrostat) semaglutide 1 mg/dose (2 mg/1.5 0.5 mg SUBCUT WK 07/24/20 01/21/21 History mL) subcutaneous pen injector (Ozempic) urea 20 % topical cream 1 applic TOPICAL BID 07/24/20 01/21/21 History disulfiram 500 mg tablet 500 mg PO DAILY #14 tab 08/04/20 01/21/21 Rx metoprolol succinate 50 mg 75 mg PO QAM 30 Days #45 tab 10/29/20 01/21/21 Rx tablet,extended release 24 hr (Toprol XL) insulin detemir U-100 100 unit/mL 35 - 50 unit SUBCUT HS 12/11/20 01/21/21 History (3 mL) subcutaneous pen (Levemir FlexTouch U-100 Insulin) venlafaxine 150 mg 150 mg PO DAILY 12/11/20 01/21/21 History capsule,extended release 24 hr amlodipine 5 mg tablet (Norvasc) 10 mg PO QAM #60 tab 12/19/20 01/21/21 Rx furosemide 40 mg tablet 40 mg PO QAM #60 tab 12/19/20 01/21/21 Rx doxycycline hyclate 100 mg capsule 100 mg PO BID #2 cap 01/26/21 Rx hydralazine 25 mg tablet 25 mg PO BID #60 tab 01/26/21 Rx Allergies Allergy/AdvReac Type Severity Reaction Status Date / Time No Known Allergies Allergy Verified 01/21/21 02:08 Past Med/Surg History Medical History Alcohol use disorder Bilateral edema of lower extremity Chronic anemia Diabetes mellitus type 2 with complications TONEY (dyspnea on exertion) Edema Elevated troponin HTN (hypertension) Mood disorder Neuropathy NSTEMI (non-ST elevated myocardial infarction) Obesity CATALINO (obstructive sleep apnea) CATALINO (obstructive sleep apnea) Proteinuria Smoking Tobacco use disorder Type 2 diabetes mellitus Surgical History History of cardiac catheterization 1 ELIESER to proximal OM by Dr. Guerrero on 01/01/19 History of lymph node biopsy Family History Other Heart disease Social History Smoking Status: Current every day smoker Tobacco Type: Cigarettes Years Smoked: 39; Cigarettes Per Day: 20; Second Hand Exposure: No; Do You Dip or Chew Tobacco: No; Tobacco Cessation Education Requested by Patient: No Hx Alcohol Use: Yes Alcohol type: hard liquor Alcohol type Comment: 03/21 gallon vodka a day Hx Substance Use: Yes Last Used Substance: Unknown Last Used Substance Other:: takes suboxone Substance Use Type Other:: suboxone taper Preferred Language: Ghanaian Communication Ability: Unable [employer] Required: No Beliefs That Will Affect Care: None marital status: Single Current Living Situation: Alone Current Living Situation Comment: [place]v in [employer] driveway current occupational status: unemployed How many Children do You have: 2 Other Information That Helps Us Care for You: No Feels Safe at Home: Yes Safety Concerns: Feels Safe At This Time Assistive Devices: None Review of Systems A total of 10 systems reviewed and were otherwise negative Physical Exam VITALS: Vitals are noted on the nurse's note and reviewed by myself. Vital signs stable. GENERAL: This is a 55-year-old male, chronically unwell appearing, in no acute distress. SKIN: B/L lower extremity erythema and edema noted. HEAD: Normocephalic atraumatic. EARS: External auditory canals clear, tympanic membranes pearly alvarado without erythema or effusion bilaterally. EYES: Pupils equal round and reactive to light and accommodation. No scleral icterus noted. MOUTH: Mucous membranes moist. Tonsils are not enlarged. Pharynx without erythema or exudate. NECK: Supple without nuchal rigidity. No lymphadenopathy. HEART: Regular rate and rhythm without murmurs gallops or rubs. LUNGS: Clear to auscultation bilaterally without wheezes, rales or rhonchi. ABDOMEN: Positive bowel sounds x 4. Soft, nontender to palpation. EXTREMITIES: Erythema and non-pitting edema noted to b/l lower extremities. Some serous drainage noted. NEURO: Patient was alert and oriented to person place and time. Course Administered Medications Discontinued Medications Amlodipine Besylate (Amlodipine Besylate 5 Mg Tab) 10 mg PO QAM [facility] Stop: 02/23/21 08:59 Last Admin: 01/26/21 08:03 Dose: 10 mg Documented by: [id number] Admin: 01/25/21 08:34 Dose: 10 mg Documented by: [id number] Admin: 01/24/21 08:49 Dose: 10 mg Documented by: [id number] Aspirin (Aspirin 81 Mg Ectab) [facility] [place] Stop: 02/20/21 08:59 Last Admin: 01/26/21 08:03 Dose: 81 mg Documented by: [id number] Admin: 01/25/21 08:33 Dose: 81 mg Documented by: [id number] Admin: 01/24/21 08:03 Dose: 81 mg Documented by: [id number] Admin: 01/23/21 08:07 Dose: 81 mg Documented by: [id number] Admin: 01/22/21 08:52 Dose: 81 mg Documented by: [id number] Admin: 01/21/21 08:30 Dose: 81 mg Documented by: [id number] Atorvastatin Calcium (Atorvastatin 40 Mg Tab) 80 mg PO DAILY [facility] Stop: 02/20/21 08:59 Last Admin: 01/26/21 08:02 Dose: 80 mg Documented by: [id number] Admin: 01/25/21 08:34 Dose: 80 mg Documented by: [id number] Admin: 01/24/21 08:03 Dose: 80 mg Documented by: [id number] Admin: 01/23/21 08:07 Dose: 80 mg Documented by: [id number] Admin: 01/22/21 08:53 Dose: 80 mg Documented by: [id number] Admin: 01/21/21 08:30 Dose: 80 mg Documented by: [id number] Buprenorphine/Naloxone (Buprenorphine/Naloxone 8/2 Mg Tab) 1 tab SL BID [facility] Stop: 02/20/21 08:59 Last Admin: 01/26/21 08:10 Dose: 1 tab Documented by: [id number] Admin: 01/25/21 20:14 Dose: 1 tab Documented by: [id number] Admin: 01/25/21 08:40 Dose: 1 tab Documented by: [id number] Admin: 01/24/21 20:37 Dose: 1 tab Documented by: [id number] Admin: 01/24/21 08:02 Dose: 1 tab Documented by: [id number] Admin: 01/23/21 20:25 Dose: 1 tab Documented by: [id number] Admin: 01/23/21 08:07 Dose: 1 tab Documented by: [id number] Admin: 01/22/21 22:55 Dose: Not Given Documented by: [id number] Admin: 01/22/21 09:03 Dose: 1 tab Documented by: [id number] Admin: 01/21/21 20:30 Dose: 1 tab Documented by: [id number] Admin: 01/21/21 09:36 Dose: 1 tab Documented by: [id number] Cyanocobalamin (Cyanocobalamin 500 Mcg Tablet (Vitamin B-12)) 1,000 mcg PO DAILY [facility] Stop: 02/20/21 08:59 Last Admin: 01/26/21 08:02 Dose: 1,000 mcg Documented by: [id number] Admin: 01/25/21 08:34 Dose: 1,000 mcg Documented by: [id number] Admin: 01/24/21 08:03 Dose: 1,000 mcg Documented by: [id number] Admin: 01/23/21 08:07 Dose: 1,000 mcg Documented by: [id number] Admin: 01/22/21 08:53 Dose: 1,000 mcg Documented by: [id number] Admin: 01/21/21 08:30 Dose: 1,000 mcg Documented by: [id number] Doxycycline Hyclate (Doxycycline Hyclate 100 Mg Cap) 100 mg PO BID [facility] Stop: 01/28/21 20:59 Last Admin: 01/26/21 08:01 Dose: 100 mg Documented by: [id number] Admin: 01/25/21 20:14 Dose: 100 mg Documented by: [id number] Admin: 01/25/21 08:35 Dose: 100 mg Documented by: [id number] Admin: 01/24/21 20:38 Dose: 100 mg Documented by: [id number] Admin: 01/24/21 08:03 Dose: 100 mg Documented by: [id number] Admin: 01/23/21 20:22 Dose: 100 mg Documented by: [id number] Admin: 01/23/21 08:07 Dose: 100 mg Documented by: [id number] Admin: 01/22/21 22:55 Dose: Not Given Documented by: [id number] Admin: 01/22/21 08:54 Dose: 100 mg Documented by: [id number] Admin: 01/21/21 20:30 Dose: 100 mg Documented by: [id number] Folic Acid (Folic Acid 1 Mg Tab) 1 mg PO QAM [facility] Stop: 02/20/21 08:59 Last Admin: 01/26/21 08:01 Dose: 1 mg Documented by: [id number] Admin: 01/25/21 08:35 Dose: 1 mg Documented by: [id number] Admin: 01/24/21 08:03 Dose: 1 mg Documented by: [id number] Admin: 01/23/21 08:07 Dose: 1 mg Documented by: [id number] Admin: 01/22/21 08:53 Dose: 1 mg Documented by: [id number] Admin: 01/21/21 08:30 Dose: 1 mg Documented by: [id number] Furosemide (Furosemide 40 Mg/4 Ml Vial) 40 mg IV 814 ONE Stop: 01/24/21 08:16 Last Admin: 01/24/21 08:03 Dose: 40 mg Documented by: [id number] Furosemide (Furosemide 40 Mg Tab) 40 mg PO QAM [facility] Stop: 02/24/21 08:59 Last Admin: 01/26/21 08:03 Dose: 40 mg Documented by: [id number] Admin: 01/25/21 08:34 Dose: 40 mg Documented by: [id number] Gabapentin (Gabapentin 600 Mg Tab) 1,200 mg PO NOW STA Stop: 01/21/21 02:50 Last Admin: 01/21/21 03:33 Dose: 1,200 mg Documented by: [id number] Gabapentin (Gabapentin 1200mg Alcohol Withdrawal Load) 1 ea PO NOW STA; Protocol Stop: 01/21/21 02:56 Last Admin: 01/21/21 04:12 Dose: Not Given Documented by: [id number] Gabapentin (Gabapentin 600 Mg Tab) 600 mg PO Q6H [facility] Stop: 01/21/21 16:01 Last Admin: 01/21/21 18:40 Dose: Not Given Documented by: [id number] Admin: 01/21/21 09:36 Dose: 600 mg Documented by: [id number] Gabapentin (Gabapentin 600 Mg Tab) 600 mg PO Q8H [facility] Stop: 01/22/21 16:01 Last Admin: 01/22/21 16:53 Dose: 600 mg Documented by: [id number] Admin: 01/22/21 08:52 Dose: 600 mg Documented by: [id number] Admin: 01/22/21 01:11 Dose: 600 mg Documented by: [id number] Gabapentin (Gabapentin 600 Mg Tab) 600 mg PO Q12H [facility] Stop: 01/23/21 18:01 Last Admin: 01/23/21 17:47 Dose: 600 mg Documented by: [id number] Admin: 01/23/21 05:14 Dose: 600 mg Documented by: [id number] Gabapentin (Gabapentin 600 Mg Tab) 600 mg PO Q24H [facility] Stop: 01/24/21 18:01 Last Admin: 01/24/21 17:08 Dose: 600 mg Documented by: [id number] Heparin Sodium (Porcine) (Heparin Sod 5,000 Unit/0.5 Ml Vial) 5,000 units SQ Q8 [facility] Stop: 02/20/21 05:59 Last Admin: 01/26/21 06:14 Dose: 5,000 units Documented by: [id number] Admin: 01/25/21 20:57 Dose: 5,000 units Documented by: [id number] Admin: 01/25/21 16:26 Dose: Not Given Documented by: [id number] Admin: 01/25/21 05:28 Dose: 5,000 units Documented by: [id number] Admin: 01/24/21 20:38 Dose: 5,000 units Documented by: [id number] Admin: 01/24/21 13:31 Dose: 5,000 units Documented by: [id number] Admin: 01/24/21 06:11 Dose: Not Given Documented by: [id number] Admin: 01/23/21 22:01 Dose: Not Given Documented by: [id number] Admin: 01/23/21 13:11 Dose: 5,000 units Documented by: [id number] Admin: 01/23/21 05:14 Dose: 5,000 units Documented by: [id number] Admin: 01/22/21 21:26 Dose: 5,000 units Documented by: [id number] Admin: 01/22/21 13:22 Dose: 5,000 units Documented by: [id number] Admin: 01/22/21 05:10 Dose: Not Given Documented by: [id number] Admin: 01/21/21 20:30 Dose: 5,000 units Documented by: [id number] Admin: 01/21/21 15:34 Dose: 5,000 units Documented by: [id number] Admin: 01/21/21 06:05 Dose: 5,000 units Documented by: [id number] Hydralazine HCl (Hydralazine Hcl 25 Mg Tab) 25 mg PO BID [facility] Stop: 02/24/21 21:59 Last Admin: 01/26/21 08:02 Dose: 25 mg Documented by: [id number] Admin: 01/25/21 22:42 Dose: 25 mg Documented by: [id number] Multivitamins 10 ml/ Thiamine HCl 100 mg/ Folic Acid 1 mg/Sodium Chloride 1,011.2 mls @ 1,011.2 mls/hr IV .Q1H ONE Stop: 01/21/21 00:51 Last Infusion: 01/21/21 01:37 Dose: 0 mls/hr Documented by: [id number] Admin: 01/21/21 00:44 Dose: 1,011.2 mls/hr Documented by: [id number] Ceftriaxone Sodium (Rocephin) 2,000 mg in 70 mls @ 140 mls/hr IV NOW STA Stop: 01/21/21 02:11 Last Infusion: 01/21/21 02:30 Dose: 0 mls/hr Documented by: [id number] Admin: 01/21/21 01:52 Dose: 140 mls/hr Documented by: [id number] Doxycycline Hyclate 100 mg/ (Dextrose) 110 mls @ 50 mls/hr IV NOW STA Stop: 01/21/21 04:48 Last Infusion: 01/21/21 06:12 Dose: 0 mls/hr Documented by: [id number] Admin: 01/21/21 03:33 Dose: 50 mls/hr Documented by: [id number] Magnesium Sulfate/Dextrose (Magnesium Sulfate / D5w) 1 gm in 100 mls @ 50 mls/hr IV Q2H [facility] Stop: 01/21/21 04:54 Last Infusion: 01/21/21 06:12 Dose: 0 mls/hr Documented by: [id number] Admin: 01/21/21 03:33 Dose: 50 mls/hr Documented by: [id number] Lorazepam (Ativan) 1 mg in 2 mls @ 2 mls/min IV UD PRN; Protocol PRN Reason: EtOH Withdrawl AWSS Score 6,7 Stop: 02/20/21 03:42 Last Admin: 01/25/21 22:42 Dose: 2 mls/min Documented by: [id number] Admin: 01/24/21 22:38 Dose: 2 mls/min Documented by: [id number] Admin: 01/24/21 20:39 Dose: 2 mls/min Documented by: [id number] Admin: 01/22/21 14:58 Dose: 2 mls/min Documented by: [id number] Admin: 01/22/21 11:30 Dose: 2 mls/min Documented by: [id number] Admin: 01/22/21 09:03 Dose: 2 mls/min Documented by: [id number] Admin: 01/21/21 09:48 Dose: 2 mls/min Documented by: [id number] Admin: 01/21/21 03:49 Dose: 2 mls/min Documented by: [id number] Lorazepam (Ativan) 2 mg in 4 mls @ 4 mls/min IV UD PRN; Protocol PRN Reason: EtOH Withdrawl AWSS Score 8,9 Stop: 02/20/21 03:42 Last Admin: 01/25/21 02:52 Dose: 4 mls/min Documented by: [id number] Admin: 01/23/21 22:43 Dose: 4 mls/min Documented by: [id number] Admin: 01/23/21 21:43 Dose: 4 mls/min Documented by: [id number] Admin: 01/23/21 20:47 Dose: 4 mls/min Documented by: [id number] Admin: 01/23/21 15:42 Dose: 4 mls/min Documented by: [id number] Admin: 01/22/21 23:22 Dose: 4 mls/min Documented by: [id number] Admin: 01/22/21 16:53 Dose: 4 mls/min Documented by: [id number] Admin: 01/22/21 13:54 Dose: 4 mls/min Documented by: [id number] Admin: 01/21/21 22:40 Dose: 4 mls/min Documented by: [id number] Admin: 01/21/21 08:28 Dose: 4 mls/min Documented by: [id number] Admin: 01/21/21 06:32 Dose: 4 mls/min Documented by: [id number] Admin: 01/21/21 05:17 Dose: 4 mls/min Documented by: [id number] Albumin Human (Albumin 25% 100 Ml) 25 gm in 100 mls @ 50 mls/hr IV ONE ONE Stop: 01/21/21 06:59 Last Infusion: 01/21/21 08:39 Dose: 0 mls/hr Documented by: [id number] Admin: 01/21/21 06:02 Dose: 50 mls/hr Documented by: [id number] Magnesium Sulfate/Dextrose (Magnesium Sulfate / D5w) 1 gm in 100 mls @ 50 mls/hr IV Q2H [facility] Stop: 01/21/21 14:29 Last Infusion: 01/21/21 19:35 Dose: 0 mls/hr Documented by: [id number] Admin: 01/21/21 17:31 Dose: 50 mls/hr Documented by: [id number] Infusion: 01/21/21 16:37 Dose: 0 mls/hr Documented by: [id number] Infusion: 01/21/21 16:37 Dose: 0 mls/hr Documented by: [id number] Admin: 01/21/21 14:43 Dose: 50 mls/hr Documented by: [id number] Magnesium Sulfate/Dextrose (Magnesium Sulfate / D5w) 1 gm in 100 mls @ 50 ml s/hr IV ONE ONE Stop: 01/22/21 14:59 Last Infusion: 01/22/21 14:56 Dose: 0 mls/hr Documented by: [id number] Admin: 01/22/21 13:22 Dose: 50 mls/hr Documented by: [id number] Insulin Aspart (Insulin Aspart 100 Units/Ml 3 Ml Pen) 0 units SC ACHS [facility] Stop: 02/20/21 04:59 Last Admin: 01/26/21 12:23 Dose: 2 units Documented by: [id number] Cosigned by: [id number] Admin: 01/26/21 08:07 Dose: 7 units Documented by: [id number] Cosigned by: [id number] Admin: 01/25/21 20:55 Dose: 4 units Documented by: [id number] Cosigned by: [id number] Admin: 01/25/21 17:24 Dose: 9 units Documented by: [id number] Cosigned by: [id number] Admin: 01/25/21 12:44 Dose: 4 units Documented by: [id number] Cosigned by: [id number] Admin: 01/25/21 08:38 Dose: 3 units Documented by: [id number] Cosigned by: [id number] Admin: 01/24/21 20:38 Dose: Not Given Documented by: [id number] Admin: 01/24/21 17:08 Dose: 3 units Documented by: [id number] Cosigned by: [id number] Admin: 01/24/21 12:14 Dose: 4 units Documented by: [id number] Cosigned by: [id number] Admin: 01/24/21 08:50 Dose: 2 units Documented by: [id number] Cosigned by: [id number] Admin: 01/23/21 20:23 Dose: Not Given Documented by: [id number] Admin: 01/23/21 16:59 Dose: Not Given Documented by: [id number] Cosigned by: [id number] Admin: 01/23/21 12:19 Dose: 8 units Documented by: [id number] Cosigned by: [id number] Admin: 01/23/21 08:22 Dose: 2 units Documented by: [id number] Cosigned by: [id number] Admin: 01/22/21 20:23 Dose: Not Given Documented by: [id number] Admin: 01/22/21 17:57 Dose: Not Given Documented by: [id number] Admin: 01/22/21 13:21 Dose: 8 units Documented by: [id number] Cosigned by: [id number] Admin: 01/22/21 08:54 Dose: 5 units Documented by: [id number] Cosigned by: [id number] Admin: 01/21/21 20:24 Dose: Not Given Documented by: [id number] Admin: 01/21/21 17:32 Dose: Not Given Documented by: [id number] Admin: 01/21/21 11:35 Dose: Not Given Documented by: [id number] Admin: 01/21/21 08:22 Dose: 2 units Documented by: [id number] Cosigned by: [id number] Admin: 01/21/21 06:04 Dose: 2 units Documented by: [id number] Cosigned by: [id number] Insulin Glargine (Insulin Glargine Solostar 100 Units/Ml 3 Ml Pen) 20 units SC BID [facility] Stop: 02/20/21 20:59 Last Admin: 01/26/21 08:04 Dose: 20 units Documented by: [id number] Cosigned by: [id number] Admin: 01/25/21 20:54 Dose: 20 units Documented by: [id number] Cosigned by: [id number] Admin: 01/25/21 08:35 Dose: 20 units Documented by: [id number] Cosigned by: [id number] Admin: 01/24/21 20:38 Dose: 20 units Documented by: [id number] Cosigned by: [id number] Admin: 01/24/21 08:50 Dose: 20 units Documented by: [id number] Cosigned by: [id number] Admin: 01/23/21 20:23 Dose: 20 units Documented by: [id number] Cosigned by: [id number] Admin: 01/23/21 08:21 Dose: 20 units Documented by: [id number] Cosigned by: [id number] Admin: 01/22/21 21:26 Dose: 20 units Documented by: [id number] Cosigned by: [id number] Admin: 01/22/21 08:54 Dose: 20 units Documented by: [id number] Cosigned by: [id number] Admin: 01/21/21 20:26 Dose: Not Given Documented by: [id number] Insulin Glargine (Insulin Glargine Solostar 100 Units/Ml 3 Ml Pen) 20 units SC NOW STA Stop: 01/21/21 04:51 Last Admin: 01/21/21 06:03 Dose: 20 units Documented by: [id number] Cosigned by: [id number] Magnesium Sulfate/Dextrose (Magnesium Sulfate 1gm / D5w Bag) Confirm Administered Dose 1 gm IV .STK-MED ONE Stop: 01/21/21 16:35 Last Admin: 01/21/21 16:38 Dose: Not Given Documented by: [id number] Metoprolol Succinate (Metoprolol Succ 25mg Ext Rel Tab) 75 mg PO QAM [facility] Stop: 02/20/21 08:59 Last Admin: 01/26/21 08:03 Dose: 75 mg Documented by: [id number] Admin: 01/25/21 08:35 Dose: 75 mg Documented by: [id number] Admin: 01/24/21 08:03 Dose: 75 mg Documented by: [id number] Admin: 01/23/21 08:07 Dose: 75 mg Documented by: [id number] Admin: 01/22/21 08:53 Dose: 75 mg Documented by: [id number] Admin: 01/21/21 08:31 Dose: 75 mg Documented by: [id number] Miscellaneous (*Disulfiram*Order Awaiting Action) 1 ea N/A QS [facility] Stop: 02/20/21 07:59 Last Admin: 01/26/21 08:08 Dose: Not Given Documented by: [id number] Admin: 01/26/21 00:00 Dose: Not Given Documented by: [id number] Admin: 01/25/21 16:27 Dose: Not Given Documented by: [id number] Admin: 01/25/21 11:28 Dose: Not Given Documented by: [id number] Admin: 01/24/21 22:45 Dose: Not Given Documented by: [id number] Admin: 01/24/21 15:33 Dose: Not Given Documented by: [id number] Admin: 01/24/21 07:52 Dose: Not Given Documented by: [id number] Admin: 01/23/21 22:02 Dose: Not Given Documented by: [id number] Admin: 01/23/21 15:21 Dose: Not Given Documented by: [id number] Admin: 01/23/21 08:03 Dose: Not Given Documented by: [id number] Admin: 01/22/21 23:12 Dose: Not Given Documented by: [id number] Admin: 01/22/21 16:53 Dose: Not Given Documented by: [id number] Admin: 01/22/21 08:52 Dose: Not Given Documented by: [id number] Admin: 01/21/21 21:59 Dose: Not Given Documented by: [id number] Admin: 01/21/21 17:32 Dose: Not Given Documented by: [id number] Admin: 01/21/21 11:35 Dose: Not Given Documented by: [id number] Miscellaneous (Carbohydrates For Hypoglycemia ) 15 - 30 gm PO UD PRN PRN Reason: Hypoglycemia Protocol Stop: 02/20/21 04:35 Last Admin: 01/23/21 16:34 Dose: 15 gm Documented by: [id number] Multivitamins (Multivitamin Tab) 1 tab PO QAM [facility] Stop: 02/20/21 08:59 Last Admin: 01/26/21 08:03 Dose: 1 tab Documented by: [id number] Admin: 01/25/21 08:33 Dose: 1 tab Documented by: [id number] Admin: 01/24/21 08:03 Dose: 1 tab Documented by: [id number] Admin: 01/23/21 08:07 Dose: 1 tab Documented by: [id number] Admin: 01/22/21 08:52 Dose: 1 tab Documented by: [id number] Admin: 01/21/21 08:31 Dose: 1 tab Documented by: [id number] Thiamine HCl (Thiamine Hcl 100 Mg Tab) 100 mg PO QAM [facility] Stop: 02/20/21 08:59 Last Admin: 01/26/21 08:01 Dose: 100 mg Documented by: [id number] Admin: 01/25/21 08:33 Dose: 100 mg Documented by: [id number] Admin: 01/24/21 08:03 Dose: 100 mg Documented by: [id number] Admin: 01/23/21 08:07 Dose: 100 mg Documented by: [id number] Admin: 01/22/21 08:53 Dose: 100 mg Documented by: [id number] Admin: 01/21/21 08:32 Dose: 100 mg Documented by: [id number] Triamcinolone Acetonide (Triamcinolone Acet 0.1% Cr 15 Gm Tube) 1 appln EXT BID [facility] Stop: 02/24/21 21:59 Last Admin: 01/26/21 08:16 Dose: 1 appln Documented by: [id number] Admin: 01/25/21 22:42 Dose: 1 appln Documented by: [id number] Venlafaxine HCl (Venlafaxine Hcl Xr 150 Mg Capxr) 150 mg PO DAILY [facility] Stop: 02/20/21 08:59 Last Admin: 01/26/21 08:01 Dose: 150 mg Documented by: [id number] Admin: 01/25/21 08:33 Dose: 150 mg Documented by: [id number] Admin: 01/24/21 08:03 Dose: 150 mg Documented by: [id number] Admin: 01/23/21 08:07 Dose: 150 mg Documented by: [id number] Admin: 01/22/21 08:53 Dose: 150 mg Documented by: [id number] Admin: 01/21/21 08:30 Dose: 150 mg Documented by: [id number] Medical Decision Making Differential Diagnosis Muscular strain, fracture, dislocation, DVT, joint effusion, infection, soft tissue injury, vascular compromise, as well as other pathologies. Home Medications Current Medication List: was personally reviewed by me Laboratory Data Attestation: I reviewed the patient's lab results. Result diagrams: 01/22/21 11:05 01/24/21 07:26 Lab Results 01/20/21 01/20/21 01/20/21 Range/Units 22:37 22:37 22:37 WBC 4.26 L (4.8-10.8) K/uL RBC 3.60 L (4.7-6.1) M/uL Hgb 11.1 L (14.0-18.0) g/dL Hct 32.9 L (42-52) % MCV 91.4 (80-100) fL MCH 30.8 (25-34) pg MCHC 33.7 (32-36) g/dL RDW Std Deviation 48.4 H (36.4-46.3) fL RDW Coeff of Alberto 14.4 (11.5-14.5) % Plt Count 142 (130-400) K/uL MPV 9.3 (7.4-10.4) fL Immature Gran % (Auto) 0.0 % Neut % (Auto) 57.3 % Lymph % (Auto) 28.2 % Bowie % (Auto) 13.1 % Eos % (Auto) 1.4 % Baso % (Auto) 0.0 % Neut # (Auto) 2.44 (1.4-6.5) K/uL Lymph # (Auto) 1.20 (1.2-3.4) K/uL Bowie # (Auto) 0.56 (0.11-0.59) K/uL Eos # (Auto) 0.06 (0-0.5) K/uL Baso # (Auto) 0.00 (0-0.2) K/uL Immature Gran # (Auto) 0.00 (0.00-0.02) K/uL PT 10.6 (9.0-12.0) Seconds INR 1.0 (0.9-1.1) Sodium 137 (136-145) mmol/L Potassium 4.0 (3.5-5.1) mmol/L Chloride 101 (98-107) mmol/L Carbon Dioxide 26 (21-32) mmol/L Anion Gap 10.0 (3-11) BUN 13 (7-18) mg/dl Creatinine 1.52 H (0.6-1.4) mg/dl Est Cr Clr Drug Dosing 67.6 ml/min Est GFR ( Amer) 58.5 ml/min Est GFR (Non-Af Amer) 50.5 ml/min BUN/Creatinine Ratio 8.6 L (10-20) Glucose 196 H (70-99) mg/dl Calcium 8.2 L (8.5-10.1) mg/dl Magnesium 1.3 L (1.8-2.4) mg/dl Total Bilirubin 0.5 (0.2-1) mg/dl AST 89 H (15-37) U/L ALT 59 (12-78) U/L Alkaline Phosphatase 126 H (45-117) U/L Total Protein 6.3 L (6.4-8.2) gm/dl Albumin 1.8 L (3.4-5.0) gm/dl Globulin 4.5 H (2.5-4.0) gm/dl Albumin/Globulin Ratio 0.4 L (0.9-2) Ethyl Alcohol mg/dL (0-3) mg/dl COVID-19 Eval Order SARS-CoV-2 (PCR) (Negative) 01/20/21 01/20/21 01/20/21 Range/Units 22:37 22:43 22:43 WBC (4.8-10.8) K/uL RBC (4.7-6.1) M/uL Hgb (14.0-18.0) g/dL Hct (42-52) % MCV (80-100) fL MCH (25-34) pg MCHC (32-36) g/dL RDW Std Deviation (36.4-46.3) fL RDW Coeff of Alberto (11.5-14.5) % Plt Count (130-400) K/uL MPV (7.4-10.4) fL Immature Gran % (Auto) % Neut % (Auto) % Lymph % (Auto) % Bowie % (Auto) % Eos % (Auto) % Baso % (Auto) % Neut # (Auto) (1.4-6.5) K/uL Lymph # (Auto) (1.2-3.4) K/uL Bowie # (Auto) (0.11-0.59) K/uL Eos # (Auto) (0-0.5) K/uL Baso # (Auto) (0-0.2) K/uL Immature Gran # (Auto) (0.00-0.02) K/uL PT (9.0-12.0) Seconds INR (0.9-1.1) Sodium (136-145) mmol/L Potassium (3.5-5.1) mmol/L Chloride (98-107) mmol/L Carbon Dioxide (21-32) mmol/L Anion Gap (3-11) BUN (7-18) mg/dl Creatinine (0.6-1.4) mg/dl Est Cr Clr Drug Dosing ml/min Est GFR ( Amer) ml/min Est GFR (Non-Af Amer) ml/min BUN/Creatinine Ratio (10-20) Glucose (70-99) mg/dl Calcium (8.5-10.1) mg/dl Magnesium (1.8-2.4) mg/dl Total Bilirubin (0.2-1) mg/dl AST (15-37) U/L ALT (12-78) U/L Alkaline Phosphatase (45-117) U/L Total Protein (6.4-8.2) gm/dl Albumin (3.4-5.0) gm/dl Globulin (2.5-4.0) gm/dl Albumin/Globulin Ratio (0.9-2) Ethyl Alcohol mg/dL 154.7 H (0-3) mg/dl COVID-19 Eval Order Covid19 at [facility] SARS-CoV-2 (PCR) NEGATIVE (Negative) Imaging Data Attestation: I personally reviewed and interpreted this imaging study as follows: Radiologist's Impression: US VENOUS BILATERAL LOWER EXTREMITIES: No deep vein thrombosis of either lower extremity. Prominent bilateral inguinal lymphadenopathy is nonspecific and may be infectious, inflammatory or neoplastic. There is nonspecific edema of the left calf. Radiologist:Ignacia Shi MD MDM Narrative Continuous first leveler: Order was placed for continuous first leveler. Patient was placed on the first leveler. Patient was noted to be in normal sinus rhythm at an initial rate of 80 bpm. The patient is a 55-year-old male who presents today complaining of lower extremity swelling and redness. Labs revealed pancytopenia, chronic for the patient. He does appear to have a significant lower extremity cellulitis. Given this as well as concern for ETOH withdrawal, the hospitalist service was consulted. Impression & Plan Bilateral cellulitis of lower leg, Alcohol use disorder Discharge Plan Visit Data Chief Complaint: Swelling/Edema to Extremity Stated Complaint: LEGS SWOLLEN, BLISTERS ON LEGS, FELL OUTSIDE ED Provider: Howard Paredes ED Midlevel Provider: Dorys Jasso Discharge Problem: Bilateral cellulitis of lower leg, Alcohol use disorder Patient Disposition: Admitted As Inpatient Discharge Instructions Interventions: ED Discharge Assessment Last Done: 01/21/21 04:45
== END 2021-01-26 14:02 | disposition alcohol treatment (31) | DRG 897 ==
LOC: ED 20:03 → EDINP 01-21 02:48 → 2N 01-21 16:41

== ENCOUNTER 2021-05-28 18:20 | Inpatient (IN) ==
[2021-05-28] MEDS ORDERED: FUROSEMIDE 40 MG/4 ML VIAL IV ONE (18:40)
[2021-05-28] MEDS ORDERED: THIAMINE HCL 100 MG in SYRINGE 9 ML IV STA (18:40)
--- NOTE | 2021-05-28 18:47 | Emergency Department Note ---
Impression & Plan Bilateral edema of lower extremity, Alcoholism, Alcohol intoxication, Hyperglycemia due to type 2 diabetes mellitus, Elevated troponin I level ED Provider Note Provider: Reid Mullen MD DATE OF SERVICE: 05/28/2021 CHIEF COMPLAINT: Leg swelling HISTORY OF PRESENT ILLNESS: Patient is a 85-year-old gentleman history of CAD and CHF with a history of alcoholism as well as hypertension neuropathy presenting today reporting over the past 2 weeks has developed worsening leg swelling. Patient does endorse alcohol use including today with 25 ounces of some kind of wine. States he has a history of alcohol abuse. States at times has been a little bit short of breath but denies any chest pain or abdominal pain. Denies headache. Patient states his legs do ache from the swelling. Patient denies any trauma or falls or syncope. Patient states he was recently at rehab and discharged and "fell off the wagon" a week ago or so. Patient states he would like to stop drinking. States he may have had a seizure several days ago (it is quite unclear from his statements and again he appears i ntoxicated) and his history of alcohol withdrawal seizures. Patient is unsure what medications he is on. REVIEW OF SYSTEMS: A total of 10 review of systems was obtained and negative except as stated above in the HPI. PAST MEDICAL HISTORY: As noted above MEDICATIONS: Reviewed home medications with the patient's unsure exactly what he is taking currently. SOCIAL HISTORY: Patient is endorses a history of alcoholism and has been drinking today PHYSICAL EXAM: GENERAL: alert in no distress in the stretcher, somewhat slow to answer and occasionally repetitive. Smells of alcohol. Head: normocephalic and atraumatic EYES: No injection, discharge or icterus. PERRL, EOMI. NECK: Trachea midline. ENT: Mucous membranes pink and moist. LUNGS: Airway patent. No retractions. Breath sounds clear HEART: Regular tachycardic rate and rhythm. No chest wall tenderness ABDOMEN: Soft and non-tender, without guarding or rebound. SKIN: Acyanotic, warm, dry EXTREMITIES: Without swelling, tenderness or deformity except for bilateral 2-3+ edema below the knees with some mild erythema and stasis changes. No open wounds noted. Some calluses on the bilateral feet. NEUROLOGICAL: No aphasia. No facial droop with occasionally mildly slurred speech. Normal strength and tone in the extremities with gross sensation intact in all 4 extremities. Ambulatory here with a shuffling stooped gait. EK bpm normal sinus rhythm with PVC noted. No acute ST segment elevation or depression with a QTC of 455. Normal axis. CONTINUOUS CARDIAC MONITORING: was ordered and showed a heart rate of 80s-110s bpm in normal sinus rhythm to sinus tachycardia Patient's laboratory studies and imaging reviewed. Differential includes Infection, dehydration, metabolic abnormality, hypo/hyperglycemia, electrolyte disturbance, anemia, hypoxia, cardiac sources, intracerebral event, toxicologic, neurologic, as well as other pathologies. IMPRESSION/MEDICAL DECISION MAKING: Patient appears a little bit inebriated and disheveled upon appearance. 2-3+ bilateral lower extremity edema. No obvious evidence of trauma noted in the legs or otherwise. Lower suspicion at this time for bilateral DVTs. Patient admits to alcohol use I do believe he is intoxicated. Medical alcohol was sent. CT head completed given his any beers today to exclude any possible intracranial bleed that may be occult. Not hypoxic but somewhat hypertensive. Reports drinking earlier. Doubt he is in DTs or teresa withdrawal at this time but has significant history of this with seizures. Given some Lasix initially as well as some thiamine. Lower suspicion at this time that this represents cellulitis. Chest x-ray not convincing for pulmonary edema. CT the head per radiology without acute findings. Blood work with minimal leukopenia and mild anemia (similar and stable to previous). Negative COVID. Alcohol level significantly elevated. Patient given some aspirin as there is some troponin elevation. This does appear to be somewhat higher than previous baseline. We will give a dose of aspirin as well as some Protonix for stomach protection. We will give a multivitamin given his alcohol abuse and some insulin for his significantly elevated glucose. Does not appear to be in HHS/DKA at this time. Given these constellation we will have the patient be observed in the hospital. Given some mild lactate elevation given him an antibiotic with some IV fluids. Patient later stated he felt a little bit shaky and is given a small dose of IV Ativan. DIAGNOSIS: Bilateral leg swelling, alcohol intoxication/abuse, hyperglycemia secondary to type 2 diabetes, elevated troponin DISPOSITION: Evaluation by the hospitalist Patient was agreeable with this plan. Past Med/Surg History Medical History Alcohol abuse Alcohol use disorder Alcohol withdrawal syndrome Bilateral edema of lower extremity Chronic anemia Diabetes mellitus type 2 with complications TONEY (dyspnea on exertion) Edema Elevated troponin HTN (hypertension) Mood disorder Neuropathy NSTEMI (non-ST elevated myocardial infarction) Obesity CATALINO (obstructive sleep apnea) CATALINO (obstructive sleep apnea) Proteinuria Smoking Tobacco use disorder Type 2 diabetes mellitus Surgical History History of cardiac catheterization 1 ELIESER to proximal OM by Dr. Guerrero on 01/01/19 History of lymph node biopsy Family History (Updated 05/28/21 @ 21:06 by Josselyn Perales PA-C) Other Diabetes Heart disease Hypertension Social History (Updated 05/28/21 @ 21:05 by Josselyn Perales PA-C) Smoking Status: Current every day smoker Tobacco Type: Cigarettes Years Smoked: 39; Cigarettes Per Day: 20; Second Hand Exposure: No; Hx Alcohol Use: Yes Alcohol type: hard liquor Alcohol type Comment: 1/2 gallon vodka a day Hx Substance Use: Yes Last Used Substance: Unknown Last Used Substance Other:: takes suboxone Substance Use Type Other:: suboxone taper Preferred Language: Persian Communication Ability: Unable Software Licensing Analyst Required: No Beliefs That Will Affect Care: None marital status: Single Current Living Situation: Alone Current Living Situation Comment: Rv in friends driveway current occupational status: unemployed How many Children do You have: 2 Feels Safe at Home: Yes Assistive Devices: None Allergies Allergies Allergy/AdvReac Type Severity Reaction Status Date / Time No Known Allergies Allergy Verified 05/28/21 20:27 Home Meds Home Medications Medication Instructions Recorded Confirmed amlodipine 5 mg tablet 5 mg PO DAILY 05/28/21 05/28/21 aripiprazole 2 mg tablet 2 mg PO DAILY 05/28/21 05/28/21 aspirin 81 mg tablet,delayed 81 mg PO DAILY 05/28/21 05/28/21 release atorvastatin 80 mg tablet 80 mg PO DAILY 05/28/21 05/28/21 buprenorphine 8 mg-naloxone 2 mg 1 tab SUBLINGUAL BID 05/28/21 05/28/21 sublingual tablet buspirone 10 mg tablet 10 mg PO TID 05/28/21 05/28/21 cyanocobalamin (vitamin B-12) 1,000 mcg PO DAILY 05/28/21 05/28/21 1,000 mcg tablet dulaglutide 1.5 mg/0.5 mL 1.5 mg SUBCUT WE 05/28/21 05/28/21 subcutaneous pen injector (Trulicity) empagliflozin 10 mg tablet 10 mg PO QAM 05/28/21 05/28/21 (Jardiance) folic acid 1 mg tablet 1 mg PO DAILY 05/28/21 05/28/21 furosemide 40 mg tablet 40 mg PO DAILY 05/28/21 05/28/21 glipizide 10 mg tablet 10 mg PO BID 05/28/21 05/28/21 hydroxyzine HCl 50 mg tablet 50 mg PO QID PRN 05/28/21 05/28/21 magnesium oxide 400 mg (241.3 mg 100 mg PO DAILY 05/28/21 05/28/21 magnesium) tablet metformin 500 mg tablet,extended 500 mg PO DIRECTED 05/28/21 05/28/21 release 24 hr metoprolol succinate 50 mg 100 mg PO QAM 05/28/21 05/28/21 tablet,extended release 24 hr mirtazapine 15 mg tablet 15 mg PO HS 05/28/21 05/28/21 naloxone 4 mg/actuation nasal 1 spray INTRANASAL DAILY PRN 05/28/21 05/28/21 spray (Narcan) nitroglycerin 0.4 mg sublingual 0.4 mg SUBLINGUAL DIRECTED PRN 05/28/21 05/28/21 tablet (Nitrostat) thiamine HCl (vitamin B1) 100 mg 100 mg PO DAILY 05/28/21 05/28/21 tablet (Vitamin B-1) trazodone 50 mg tablet 75 mg PO HS 05/28/21 05/28/21 venlafaxine 150 mg 150 mg PO DAILY 05/28/21 05/28/21 capsule,extended release 24 hr Results & Data (ED) Vital Signs Vital Signs - 24 hr 05/28/21 18:22 05/28/21 18:36 05/28/21 19:03 Temperature 36.4 C L Temperature Source Temporal Artery Scan Pulse Rate 110 H Pulse Rate [Apical] 99 H Respiratory Rate 20 20 Respiratory Effort / Characteristics Non-Labored Non-Labored Spontaneous Respiratory Depth Normal Normal Respiratory Pattern Regular Blood Pressure 204/100 H Blood Pressure [Right Arm] 194/112 H Blood Pressure Mean 134 Blood Pressure Mean [Right Arm] 139 Blood Pressure Position [Right Arm] Sitting Pulse Oximetry 93 97 95 Oxygen Delivery Method Room Air Room Air Room Air Oxygen Flow Rate Sepsis Recent Fever Within 48 Hours No Sepsis New/Unexplained Change in Mental Status N/A Sepsis Action Taken by Nursing No Action Required 05/28/21 20:19 Temperature Temperature Source Pulse Rate Pulse Rate [Apical] 94 H Respiratory Rate 20 Respiratory Effort / Characteristics Respiratory Depth Respiratory Pattern Blood Pressure Blood Pressure [Right Arm] 179/119 H Blood Pressure Mean Blood Pressure Mean [Right Arm] 139 Blood Pressure Position [Right Arm] Pulse Oximetry 95 Oxygen Delivery Method Nasal Cannula Oxygen Flow Rate 2 Sepsis Recent Fever Within 48 Hours Sepsis New/Unexplained Change in Mental Status Sepsis Action Taken by Nursing Laboratory Data Result diagrams: 05/28/21 18:56 05/28/21 18:56 Lab Results 05/28/21 05/28/21 05/28/21 Range/Units 18:56 18:56 18:56 WBC 4.53 L (4.8-10.8) K/uL RBC 3.87 L (4.7-6.1) M/uL Hgb 12.0 L (14.0-18.0) g/dL Hct 35.4 L (42-52) % MCV 91.5 (80-100) fL MCH 31.0 (25-34) pg MCHC 33.9 (32-36) g/dL RDW Std Deviation 46.1 (36.4-46.3) fL RDW Coeff of Alberto 13.9 (11.5-14.5) % Plt Count 149 (130-400) K/uL MPV 9.7 (7.4-10.4) fL Immature Gran % (Auto) 0.2 % Neut % (Auto) 43.6 % Lymph % (Auto) 48.1 % O'Brien % (Auto) 7.5 % Eos % (Auto) 0.2 % Baso % (Auto) 0.4 % Neut # (Auto) 1.97 (1.4-6.5) K/uL Lymph # (Auto) 2.18 (1.2-3.4) K/uL O[place]Brien # (Auto) 0.34 (0.11-0.59) K/uL Eos # (Auto) 0.01 (0-0.5) K/uL Baso # (Auto) 0.02 (0-0.2) K/uL Immature Gran # (Auto) 0.01 (0.00-0.02) K/uL PT 10.6 (9.0-12.0) Seconds INR 1.0 (0.9-1.1) Sodium 136 (136-145) mmol/L Potassium 4.1 (3.5-5.1) mmol/L Chloride 100 (98-107) mmol/L Carbon Dioxide 27 (21-32) mmol/L Anion Gap 9 (3-11) BUN 27 H (6-23) mg/dl Creatinine 1.20 (0.6-1.4) mg/dl Est Cr Clr Drug Dosing Not Reportable Est GFR ( Amer) 77.9 ml/min Est GFR (Non-Af Amer) 67.2 ml/min BUN/Creatinine Ratio 22.5 H (10-20) Glucose 443 H* (70-99(Fasting)) mg/dl POC Glucose (70-99) mg/dl Lactate (0.4-2.0) mmol/L Calcium 8.7 (8.5-10.1) mg/dl Magnesium 1.8 (1.7-2.4) mg/dl Total Bilirubin 0.3 (0.2-1.0) mg/dl AST 38 (13-39) U/L ALT 29 (7-52) U/L Alkaline Phosphatase 135 H (34-104) U/L Total Creatine Kinase 383 H (30-223) U/L Troponin I 0.12 H* (0-0.04) ng/ml B-Natriuretic Peptide (0-100) pg/ml Total Protein 6.3 (6.0-8.3) gm/dl Albumin 2.8 L (3.4-5.0) gm/dl Globulin 3.5 (2.5-4.0) gm/dl Albumin/Globulin Ratio 0.8 L (0.9-2) Procalcitonin (0-0.5) ng/ml TSH (0.300-4.500) uIu/ml Urine Color Urine Appearance (Clear) Urine pH (4.5-7.5) Ur Specific [place] (1.000-1.030) Urine Protein (Negative) Urine Glucose (UA) (Negative) Urine Ketones (Negative) Urine Blood (Negative) Urine Nitrite (Negative) Urine Bilirubin (Negative) Urine Urobilinogen (Negative) Ur Leukocyte Esterase (Negative) Urine WBC (Auto) (0-5) /hpf Urine RBC (Auto) (0-4) /hpf U Hyaline Cast (Auto) (0-5) /lpf U Epithel Cells (Auto) (0-5) /lpf Urine Bacteria (Auto) (Negative) Ethyl Alcohol mg/dL (<10.0) mg/dl SARS-CoV-2, RNA, NAAT (NEGATIVE) 05/28/21 05/28/21 05/28/21 Range/Units 18:56 18:56 18:56 WBC (4.8-10.8) K/uL RBC (4.7-6.1) M/uL Hgb (14.0-18.0) g/dL Hct (42-52) % MCV (80-100) fL MCH (25-34) pg MCHC (32-36) g/dL RDW Std Deviation (36.4-46.3) fL RDW Coeff of Alberto (11.5-14.5) % Plt Count (130-400) K/uL MPV (7.4-10.4) fL Immature Gran % (Auto) % Neut % (Auto) % Lymph % (Auto) % O'Brien % (Auto) % Eos % (Auto) % Baso % (Auto) % Neut # (Auto) (1.4-6.5) K/uL Lymph # (Auto) (1.2-3.4) K/uL O[place]Brien # (Auto) (0.11-0.59) K/uL Eos # (Auto) (0-0.5) K/uL Baso # (Auto) (0-0.2) K/uL Immature Gran # (Auto) (0.00-0.02) K/uL PT (9.0-12.0) Seconds INR (0.9-1.1) Sodium (136-145) mmol/L Potassium (3.5-5.1) mmol/L Chloride (98-107) mmol/L Carbon Dioxide (21-32) mmol/L Anion Gap (3-11) BUN (6-23) mg/dl Creatinine (0.6-1.4) mg/dl Est Cr Clr Drug Dosing Est GFR ( Amer) ml/min Est GFR (Non-Af Amer) ml/min BUN/Creatinine Ratio (10-20) Glucose (70-99(Fasting)) mg/dl POC Glucose (70-99) mg/dl Lactate (0.4-2.0) mmol/L Calcium (8.5-10.1) mg/dl Magnesium (1.7-2.4) mg/dl Total Bilirubin (0.2-1.0) mg/dl AST (13-39) U/L ALT (7-52) U/L Alkaline Phosphatase (34-104) U/L Total Creatine Kinase (30-223) U/L Troponin I (0-0.04) ng/ml B-Natriuretic Peptide (0-100) pg/ml Total Protein (6.0-8.3) gm/dl Albumin (3.4-5.0) gm/dl Globulin (2.5-4.0) gm/dl Albumin/Globulin Ratio (0.9-2) Procalcitonin 0.09 (0-0.5) ng/ml TSH 1.964 (0.300-4.500) uIu/ml Urine Color Urine Appearance (Clear) Urine pH (4.5-7.5) Ur Specific [place] (1.000-1.030) Urine Protein (Negative) Urine Glucose (UA) (Negative) Urine Ketones (Negative) Urine Blood (Negative) Urine Nitrite (Negative) Urine Bilirubin (Negative) Urine Urobilinogen (Negative) Ur Leukocyte Esterase (Negative) Urine WBC (Auto) (0-5) /hpf Urine RBC (Auto) (0-4) /hpf U Hyaline Cast (Auto) (0-5) /lpf U Epithel Cells (Auto) (0-5) /lpf Urine Bacteria (Auto) (Negative) Ethyl Alcohol mg/dL 388.1 H (<10.0) mg/dl SARS-CoV-2, RNA, NAAT (NEGATIVE) 05/28/21 05/28/21 05/28/21 Range/Units 19:05 19: 19:22 WBC (4.8-10.8) K/uL RBC (4.7-6.1) M/uL Hgb (14.0-18.0) g/dL Hct (42-52) % MCV (80-100) fL MCH (25-34) pg MCHC (32-36) g/dL RDW Std Deviation (36.4-46.3) fL RDW Coeff of Alberto (11.5-14.5) % Plt Count (130-400) K/uL MPV (7.4-10.4) fL Immature Gran % (Auto) % Neut % (Auto) % Lymph % (Auto) % O'Brien % (Auto) % Eos % (Auto) % Baso % (Auto) % Neut # (Auto) (1.4-6.5) K/uL Lymph # (Auto) (1.2-3.4) K/uL [place]Brien # (Auto) (0.11-0.59) K/uL Eos # (Auto) (0-0.5) K/uL Baso # (Auto) (0-0.2) K/uL Immature Gran # (Auto) (0.00-0.02) K/uL PT (9.0-12.0) Seconds INR (0.9-1.1) Sodium (136-145) mmol/L Potassium (3.5-5.1) mmol/L Chloride (98-107) mmol/L Carbon Dioxide (21-32) mmol/L Anion Gap (3-11) BUN (6-23) mg/dl Creatinine (0.6-1.4) mg/dl Est Cr Clr Drug Dosing Est GFR ( Amer) ml/min Est GFR (Non-Af Amer) ml/min BUN/Creatinine Ratio (10-20) Glucose (70-99(Fasting)) mg/dl POC Glucose (70-99) mg/dl Lactate 3.1 H* (0.4-2.0) mmol/L Calcium (8.5-10.1) mg/dl Magnesium (1.7-2.4) mg/dl Total Bilirubin (0.2-1.0) mg/dl AST (13-39) U/L ALT (7-52) U/L Alkaline Phosphatase (34-104) U/L Total Creatine Kinase (30-223) U/L Troponin I (0-0.04) ng/ml B-Natriuretic Peptide 115 H (0-100) pg/ml Total Protein (6.0-8.3) gm/dl Albumin (3.4-5.0) gm/dl Globulin (2.5-4.0) gm/dl Albumin/Globulin Ratio (0.9-2) Procalcitonin (0-0.5) ng/ml TSH (0.300-4.500) uIu/ml Urine Color Urine Appearance (Clear) Urine pH (4.5-7.5) Ur Specific [place] (1.000-1.030) Urine Protein (Negative) Urine Glucose (UA) (Negative) Urine Ketones (Negative) Urine Blood (Negative) Urine Nitrite (Negative) Urine Bilirubin (Negative) Urine Urobilinogen (Negative) Ur Leukocyte Esterase (Negative) Urine WBC (Auto) (0-5) /hpf Urine RBC (Auto) (0-4) /hpf U Hyaline Cast (Auto) (0-5) /lpf U Epithel Cells (Auto) (0-5) /lpf Urine Bacteria (Auto) (Negative) Ethyl Alcohol mg/dL (<10.0) mg/dl SARS-CoV-2, RNA, NAAT NEGATIVE (NEGATIVE) 05/28/21 05/28/21 Range/Units 19:54 20:41 WBC (4.8-10.8) K/uL RBC (4.7-6.1) M/uL Hgb (14.0-18.0) g/dL Hct (42-52) % MCV (80-100) fL MCH (25-34) pg MCHC (32-36) g/dL RDW Std Deviation (36.4-46.3) fL RDW Coeff of Alberto (11.5-14.5) % Plt Count (130-400) K/uL MPV (7.4-10.4) fL Immature Gran % (Auto) % Neut % (Auto) % Lymph % (Auto) % O'Brien % (Auto) % Eos % (Auto) % Baso % (Auto) % Neut # (Auto) (1.4-6.5) K/uL Lymph # (Auto) (1.2-3.4) K/uL O'Brien # (Auto) (0.11-0.59) K/uL Eos # (Auto) (0-0.5) K/uL Baso # (Auto) (0-0.2) K/uL Immature Gran # (Auto) (0.00-0.02) K/uL PT (9.0-12.0) Seconds INR (0.9-1.1) Sodium (136-145) mmol/L Potassium (3.5-5.1) mmol/L Chloride (98-107) mmol/L Carbon Dioxide (21-32) mmol/L Anion Gap (3-11) BUN (6-23) mg/dl Creatinine (0.6-1.4) mg/dl Est Cr Clr Drug Dosing Est GFR ( Amer) ml/min Est GFR (Non-Af Amer) ml/min BUN/Creatinine Ratio (10-20) Glucose (70-99(Fasting)) mg/dl POC Glucose 265 H (70-99) mg/dl Lactate (0.4-2.0) mmol/L Calcium (8.5-10.1) mg/dl Magnesium (1.7-2.4) mg/dl Total Bilirubin (0.2-1.0) mg/dl AST (13-39) U/L ALT (7-52) U/L Alkaline Phosphatase (34-104) U/L Total Creatine Kinase (30-223) U/L Troponin I (0-0.04) ng/ml B-Natriuretic Peptide (0-100) pg/ml Total Protein (6.0-8.3) gm/dl Albumin (3.4-5.0) gm/dl Globulin (2.5-4.0) gm/dl Albumin/Globulin Ratio (0.9-2) Procalcitonin (0-0.5) ng/ml TSH (0.300-4.500) uIu/ml Urine Color Yellow Urine Appearance Clear (Clear) Urine pH 6.5 (4.5-7.5) Ur Specific [place] 1.017 (1.000-1.030) Urine Protein 3+ H (Negative) Urine Glucose (UA) 3+ H (Negative) Urine Ketones Negative (Negative) Urine Blood 1+ H (Negative) Urine Nitrite Negative (Negative) Urine Bilirubin Negative (Negative) Urine Urobilinogen Negative (Negative) Ur Leukocyte Esterase Negative (Negative) Urine WBC (Auto) 0 (0-5) /hpf Urine RBC (Auto) 0-4 (0-4) /hpf U Hyaline Cast (Auto) 0 (0-5) /lpf U Epithel Cells (Auto) 0-5 (0-5) /lpf Urine Bacteria (Auto) Negative (Negative) Ethyl Alcohol mg/dL (<10.0) mg/dl SARS-CoV-2, RNA, NAAT (NEGATIVE) Administered Medications Discontinued Medications Aspirin (Aspirin 81 Mg Chew) 324 mg PO NOW STA Stop: 05/28/21 19:38 Last Admin: 05/28/21 19:48 Dose: 324 mg Documented by: [id number] Furosemide (Furosemide 40 Mg/4 Ml Vial) 40 mg IV ONE ONE Stop: 05/28/21 18:41 Last Admin: 05/28/21 19:18 Dose: 40 mg Documented by: [id number] Gabapentin (Gabapentin 600 Mg Tab) 1,200 mg PO NOW ONE Stop: 05/28/21 21:09 Last Admin: 05/28/21 21:13 Dose: 1,200 mg Documented by: [id number] Thiamine HCl 100 mg/ Syringe 10 mls @ 2 mls/min IV NOW STA Stop: 05/28/21 18:44 Last Admin: 05/28/21 20:01 Dose: 2 mls/min Documented by: [id number] Multivitamins 10 ml/ Thiamine HCl 100 mg/ Folic Acid 1 mg/Sodium Chloride 1,011.2 mls @ 1,011.2 mls/hr IV .Q1H ONE Stop: 05/28/21 20:51 Last Admin: 05/28/21 23:07 Dose: 1,011.2 mls/hr Documented by: [id number] Insulin Human Regular (Novolin-R Insulin Per Unit Charge) 10 units IV NOW STA Stop: 05/28/21 19:38 Last Admin: 05/28/21 19:48 Dose: 10 units Documented by: [id number] Cosigned by: [id number] Labetalol HCl (Labetalol Hcl Iv 5 Mg/Ml 20ml) 10 mg IV NOW STA Stop: 05/28/21 20:20 Last Admin: 05/28/21 20:35 Dose: 10 mg Documented by: [id number] Cosigned by: [id number] Lorazepam (Lorazepam 2 Mg/1 Ml Vial) 1 mg IV NOW STA Stop: 05/28/21 21:15 Last Admin: 05/28/21 21:19 Dose: 1 mg Documented by: [id number] Pantoprazole Sodium (Pantoprazole 40 Mg Tab) 40 mg PO NOW STA Stop: 05/28/21 19:38 Last Admin: 05/28/21 19:48 Dose: 40 mg Documented by: [id number] Imaging Data Radiologist's Impression: Chest X-Ray 05/28/21 18:40 XR chest 1V portable HISTORY: 55 years-old Male weakness, intox, leg swelling acute weakness with lower extremity swelling COMPARISON: Chest radiograph 01/20/2021 TECHNIQUE: Portable AP view of the chest FINDINGS: Cardiac silhouette is enlarged. Calcified plaque of the thoracic aorta. No pneumothorax, pleural effusion, airspace consolidation or overt pulmonary edema. Degenerative changes of the shoulders and spine. IMPRESSION: No acute process. ACT 112: Negative or not required by law. The above report was generated using voice recognition software. It may contain grammatical, syntax or spelling errors. Electronically signed by: Suhas Ramos M.D. 05/28/2021 7:[address] 05/28/21 18:40 CT head/brain wo con CLINICAL HISTORY: 55 years-old Male with intox, weakness. Acute weakness with intoxication TECHNIQUE: Multiple axial CT images of the head were obtained without contrast. A dose lowering technique was utilized adhering to the principles of ALARA. CT DOSE: 749.40 mGy.cm COMPARISON: Head CT 12/02/2020 FINDINGS: No acute intracranial hemorrhage, midline shift, intracranial mass, hydrocephalus, territorial ischemia or abnormal extra-axial collection. Mild involutional changes. Calcifications of the falx cerebri. Cerebral vascular calcifications. The calvarium is intact. Mastoid air cells are clear. There is severe near complete opacification of the left maxillary sinus with moderate mucoperiosteal thickening of the right maxillary sinus. Mild to moderate residual thickening of the ethmoid air cells. Leftward spurring and bowing of the nasal septum. Unremarkable soft tissues and orbits. IMPRESSION: No acute intracranial abnormality. ACT 112: Negative or not required by law. The above report was generated using voice recognition software. It may contain grammatical, syntax or spelling errors. Electronically signed by: Suhas Ramso M.D. 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
[2021-05-28 19:07] LABS: Basophils # (auto) 0.02 K/uL (0-0.2); Basophils % (auto) 0.4 %; Eosinophils # (auto) 0.01 K/uL (0-0.5); Eosinophils % (auto) 0.2 %; Hematocrit (blood only) 35.4 % (42-52); Immature Granulocytes # (auto) 0.01 K/uL (0.00-0.02); Immature Granulocytes % (auto) 0.2 %; Lymphocytes # (auto) 2.18 K/uL (1.2-3.4); Lymphocytes % (auto) 48.1 %; Mean Corpuscular Hgb Conc 33.9 g/dL (32-36); Mean Corpuscular Volume 91.5 fL (80-100); Mean Platelet Volume 9.7 fL (7.4-10.4); Monocytes # (auto) 0.34 K/uL (0.11-0.59); Monocytes % (auto) 7.5 %; Neutrophils # (auto) 1.97 K/uL (1.4-6.5); Neutrophils % (auto) 43.6 %; Platelet Count 149 K/uL (130-400); RDW Coefficient of Variation 13.9 % (11.5-14.5); RDW Standard Deviation 46.1 fL (36.4-46.3); Red Blood Count 3.87 M/uL (4.7-6.1); White Blood Count 4.53 K/uL (4.8-10.8)
--- NOTE | 2021-05-28 19:12 | XRay Report ---
XR chest 1V portable HISTORY: 55 years-old Male weakness, intox, leg swelling acute weakness with lower extremity swellin g COMPARISON: Chest radiograph 01/20/2021 TECHNIQUE: Portable AP view of the chest FINDINGS: Cardiac silhouette is enlarged. Calcified plaque of the thoracic aorta. No pneumothorax, pleural effu carter, airspace consolidation or overt pulmonary edema. Degenerative changes of the shoulders and spin e. IMPRESSION: No acute process. ACT 112: Negative or not required by law. The above report was generated using voice recognition software. It may contain grammatical, syntax o r spelling errors. Electronically signed by: Suhas Ramos M.D. 05/28/2021 7:10 PM
[2021-05-28 19:16] LABS: Prothrombin Time 10.6 Seconds (9.0-12.0)
--- NOTE | 2021-05-28 19:21 | CT Scan Report ---
CT head/brain wo con CLINICAL HISTORY: 55 years-old Male with intox, weakness. Acute weakness with intoxication TECHNIQUE: Multiple axial CT images of the head were obtained without contrast. A dose lowering tech nique was utilized adhering to the principles of ALARA. CT DOSE: 749.40 mGy.cm COMPARISON: Head CT 12/02/2020 FINDINGS: No acute intracranial hemorrhage, midline shift, intracranial mass, hydrocephalus, territorial ischem ia or abnormal extra-axial collection. Mild involutional changes. Calcifications of the falx cerebri. Cerebral vascular calcifications. The calvarium is intact. Mastoid air cells are clear. There is severe near complete opacification of the left maxillary sinus with moderate mucoperiosteal thickening of the right maxillary sinus. Mild to moderate residual thickening of the ethmoid air cells. Leftward spurring and bowing of the nasal s eptum. Unremarkable soft tissues and orbits. IMPRESSION: No acute intracranial abnormality. ACT 112: Negative or not required by law. The above report was generated using voice recognition software. It may contain grammatical, syntax o r spelling errors. Electronically signed by: Suhas Ramos M.D. 05/28/2021 7:20 PM
[2021-05-28 19:31] LABS: Alanine Aminotransferase 29 U/L (7-52); Albumin Globulin Ratio 0.8 (0.9-2); Albumin Level 2.8 gm/dl (3.4-5.0); Alkaline Phosphatase 135 U/L (34-104); Anion Gap 9 (3-11); Aspartate Aminotransferase 38 U/L (13-39); BUN Creatinine Ratio 22.5 (10-20); Bilirubin,Total 0.3 mg/dl (0.2-1.0); Blood Urea Nitrogen 27 mg/dl (6-23); Calcium 8.7 mg/dl (8.5-10.1); Carbon Dioxide 27 mmol/L (21-32); Chloride 100 mmol/L (98-107); Creatine Kinase 383 U/L (30-223); Est GFR (African American) 77.9 ml/min; Est GFR (Non-African American) 67.2 ml/min; Globulin 3.5 gm/dl (2.5-4.0); Glucose 443 mg/dl (70-99(Fasting)); Magnesium 1.8 mg/dl (1.7-2.4); Potassium 4.1 mmol/L (3.5-5.1); Sodium 136 mmol/L (136-145); Total Protein 6.3 gm/dl (6.0-8.3); Troponin I 0.12 ng/ml (0-0.04)
[2021-05-28] MEDS ORDERED: ASPIRIN 81 MG CHEW PO STA (19:37)
[2021-05-28] MEDS ORDERED: NovoLIN-R INSULIN PER UNIT CHARGE IV STA (19:37)
[2021-05-28] MEDS ORDERED: PANTOprazole 40 MG TAB PO STA (19:37)
[2021-05-28] MEDS ORDERED: MULTI-VITAMIN INFUSION 10 ML, THIAMINE HCL 100 MG, FOLIC ACID 1 MG in SODIUM CHLORIDE 0... IV ONE (19:52)
[2021-05-28] MEDS ORDERED: LABETALOL HCL IV 5 MG/ML 20ML IV STA (20:19)
--- NOTE | 2021-05-28 20:22 | History & Physical Report ---
Date of Service May 28, 2021 Assessment & Plan (1) Alcoholism: Plan: Alcohol abuse: Patient is 55-year-old male with PMH uncontrolled DM II, HTN, HLD, alcohol abuse, alcohol withdrawal seizure, CAD s/p stent, chronic back pain, untreated CATALINO, tobacco use, neuropathy, CKD III presented to ER with complaint of increased leg swelling, drinking alcohol again. Reports drank wine today ETOH: 388 -Monitor on telemetry -Alcohol withdrawal protocol with gabapentin -Thiamine, multivitamin, folic acid daily -Patient recently got out of alcohol rehab last month -Magnesium, phosphorus labs in a.m. B/L Lower extremity edema Cellulitis H/O Chronic LE edema DD: Diastolic CHF, Cellulitis, Lymphedema, venous stasis, med noncompliance, Hypoalbuminemia H/O 2020 echo: EF: 55% BNP: 115. CXR: No acute changes -Venous Doppler pending to R/O DVT -Lactate elevated at 3.1. Repeat lactate pending -Does not appear septic at this time -cefazolin -In ER received IV Lasix. Will hold on further Lasix at this time. IVF HTN (hypertension): Hypertensive in ER. Patient has been noncompliant with medications at home also likely hypertensive secondary to alcohol use Given dose of labetalol IV -Continue amlodipine, metoprolol succinate -Hydralazine prn CAD (coronary artery disease): S/p stent History of cardiomyopathy History negative stress test in 01/2020. Echo in 2020 EF 55% Troponin: 0.12. EKG without acute ST changes -Denies chest pain, shortness of breath -Trend troponin -Continue aspirin, Plavix, metoprolol, statin -Hold Lasix and reassess volume status tomorrow Type 2 diabetes mellitus: Hyperglycemia A1c: 9.3 on 05/17/2021 Patient admits noncompliance with medications In ER BSG 443 down to 265 after 10 units of insulin IV -Hold home medications -Basal bolus insulin per protocol CKD (chronic kidney disease), stage III: Creatinine 1.2. Baseline ~1.0 -Hold Lasix for tomorrow -Gentle IVF -Monitor renal functions, avoid nephrotoxic agents when possible Chronic pancytopenia: Hgb: 12. Baseline~12. PLT: 149 -Monitor CBC Chronic pain: On Suboxone -Continue Suboxone Tobacco use disorder: -Smoking cessation encouraged -Nicotine patch CATALINO (obstructive sleep apnea): History noncompliance with CPAP DVT Prophylaxis -Lovenox SQ Full Code as per discussion with pt Follows with Dr Reed for routine care Pt was seen and care coordinated with Dr Yuen. See addendum History of Present Illness Chief Complaint: Bilateral leg swelling with pain Primary Care Provider: Charity Kasper MD Patient is 55-year-old male with PMH uncontrolled DM II, HTN, HLD, alcohol abuse, alcohol withdrawal seizure, CAD s/p stent, chronic back pain, untreated CATALINO, tobacco use, neuropathy, CKD III presented to ER with complaint of increased leg swelling, drinking alcohol again. Reports bilateral lower extremity edema and aching of legs. Feels somewhat short of breath with exertion. Denies chest pain. Outpatient notes reviewed. 05/19/2021 appointment with cardiology and at that time patient has not been taking any of his medications he was seen for lower extremity edema. His amlodipine was reduced from 10 mg to 5 mg daily and metoprolol increased from 50 mg to 100 mg daily. Patient is following with outpatient addiction coordinator. Reported patient had alcohol rehab last month. Reports is homeless and has been sitting in his car mostly, sometimes sleeping at [facility]residential. Denies fever/chills, diaphoresis, N/V/D/C, HORVATH, syncope, vision changes, neck pain, palpitations, cough, sore thr oat, choking, otalgia, rhinorrhea, abdominal pain, paresthesias, weakness, rashes, urinary symptoms. Allergies Allergy/AdvReac Type Severity Reaction Status Date / Time No Known Allergies Allergy Verified 05/28/21 20:27 Home Medications Medication Instructions Recorded Confirmed Type amlodipine 5 mg tablet 5 mg PO DAILY 05/28/21 05/28/21 History aripiprazole 2 mg tablet 2 mg PO DAILY 05/28/21 05/28/21 History aspirin 81 mg tablet,delayed 81 mg PO DAILY 05/28/21 05/28/21 History release atorvastatin 80 mg tablet 80 mg PO DAILY 05/28/21 05/28/21 History buprenorphine 8 mg-naloxone 2 mg 1 tab SUBLINGUAL BID 05/28/21 05/28/21 History sublingual tablet buspirone 10 mg tablet 10 mg PO TID 05/28/21 05/28/21 History cyanocobalamin (vitamin B-12) 1,000 mcg PO DAILY 05/28/21 05/28/21 History 1,000 mcg tablet dulaglutide 1.5 mg/0.5 mL 1.5 mg SUBCUT WE 05/28/21 05/28/21 History subcutaneous pen injector (Trulicity) empagliflozin 10 mg tablet 10 mg PO QAM 05/28/21 05/28/21 History (Jardiance) folic acid 1 mg tablet 1 mg PO DAILY 05/28/21 05/28/21 History furosemide 40 mg tablet 40 mg PO DAILY 05/28/21 05/28/21 History glipizide 10 mg tablet 10 mg PO BID 05/28/21 05/28/21 History hydroxyzine HCl 50 mg tablet 50 mg PO QID PRN 05/28/21 05/28/21 History magnesium oxide 400 mg (241.3 mg 100 mg PO DAILY 05/28/21 05/28/21 History magnesium) tablet metformin 500 mg tablet,extended 500 mg PO DIRECTED 05/28/21 05/28/21 History release 24 hr metoprolol succinate 50 mg 100 mg PO QAM 05/28/21 05/28/21 History tablet,extended release 24 hr mirtazapine 15 mg tablet 15 mg PO HS 05/28/21 05/28/21 History naloxone 4 mg/actuation nasal 1 spray INTRANASAL DAILY PRN 05/28/21 05/28/21 History spray (Narcan) nitroglycerin 0.4 mg sublingual 0.4 mg SUBLINGUAL DIRECTED PRN 05/28/21 05/28/21 History tablet (Nitrostat) thiamine HCl (vitamin B1) 100 mg 100 mg PO DAILY 05/28/21 05/28/21 History tablet (Vitamin B-1) trazodone 50 mg tablet 75 mg PO HS 05/28/21 05/28/21 History venlafaxine 150 mg 150 mg PO DAILY 05/28/21 05/28/21 History capsule,extended release 24 hr Past Med/Surg History Medical History Alcohol abuse Alcohol use disorder Alcohol withdrawal syndrome Bilateral edema of lower extremity Chronic anemia Diabetes mellitus type 2 with complications TONEY (dyspnea on exertion) Edema Elevated troponin HTN (hypertension) Mood disorder Neuropathy NSTEMI (non-ST elevated myocardial infarction) Obesity CATALINO (obstructive sleep apnea) CATALINO (obstructive sleep apnea) Proteinuria Smoking Tobacco use disorder Type 2 diabetes mellitus Surgical History History of cardiac catheterization 1 ELIESER to proximal OM by Dr. Guerrero on 01/01/19 History of lymph node biopsy Family History (Updated 05/28/21 @ 21:06 by Josselyn Perales PA-C) Other Diabetes Heart disease Hypertension Social History (Updated 05/28/21 @ 21:05 by Josselyn Perales PA-C) Smoking Status: Current every day smoker Tobacco Type: Cigarettes Years Smoked: 39; Cigarettes Per Day: 20; Second Hand Exposure: Yes; Do You Dip or Chew Tobacco: Yes; Tobacco Cessation Education Requested by Patient: No Hx Alcohol Use: No Hx Substance Use: Yes Last Used Substance: Unknown Last Used Substance Other:: years Substance Use Type Other:: patient said "I've used it all" Preferred Language: Kyrgyz Communication Ability: Effective Electroneurodiagnostic Technician Required: No Beliefs That Will Affect Care: None marital status: Single Current Living Situation: Homeless Current Living Situation Comment: [place] in [place] current occupational status: unemployed How many Children do You have: 2 Other Information That Helps Us Care for You: No Feels Safe at Home: Declines to Answer Safety Concerns: Feels Safe At This Time Assistive Devices: Oxygen - Continuous Review of Systems Review of Systems: All systems reviewed & are unremarkable except as noted in HPI & below Physical Exam Physical Exam: Lying in bed with a acute anxiety Constitutional: well developed, well nourished, + ill appearing and + obese ENMT: external ear and nose normal, oropharynx normal Neck: trachea midline, no thyromegaly Respiratory: no respiratory distress Auscultation: + diminished lung sounds; no crackles and no wheezes Cardiovascular: Rate/Rhythm: regular rate and regular rhythm; not tachycardic Heart Sounds: normal S1 and normal S2; no murmur Extremities: + edema (1+ edema bilaterally with bilateral cellulitis) Gastrointestinal (Abdomen): Inspection/Auscultation: + abdomen distended and normal bowel sounds Percussion/Palpation: abdomen soft; abdomen nontender Musculoskeletal: No acute arthritis in any joint Neurologic: Alert, awake and oriented x3. No focal sensory or no motor deficit appreciated Psychiatric: A+Ox3, euthymic affect Results & Data Results & Data ([facility]) Vital Signs (Past 12 Hours) Vital Signs Temp Pulse Pulse Resp BP BP Pulse Ox 05/28/21 19:03 95 05/28/21 18:36 99 H 20 194/112 H 97 05/28/21 18:22 36.4 C L 110 H 20 204/100 H 93 Laboratory Results Short CBC 05/28/21 Range/Units 18:56 WBC 4.53 L (4.8-10.8) K/uL Hgb 12.0 L (14.0-18.0) g/dL Hct 35.4 L (42-52) % Plt Count 149 (130-400) K/uL BMP 05/28/21 18:56 Sodium 136 Potassium 4.1 Chloride 100 Carbon Dioxide 27 BUN 27 H Creatinine 1.20 Glucose 443 H* Calcium 8.7 Cardiac Enzymes 05/28/21 Range/Units 18:56 Total Creatine Kinase 383 H (30-223) U/L Troponin I 0.12 H* (0-0.04) ng/ml Liver Function 05/28/21 Range/Units 18:56 Total Bilirubin 0.3 (0.2-1.0) mg/dl AST 38 (13-39) U/L ALT 29 (7-52) U/L Alkaline Phosphatase 135 H (34-104) U/L Albumin 2.8 L (3.4-5.0) gm/dl Urine 05/28/21 Range/Units 19:54 Urine Color Yellow Urine Appearance Clear (Clear) Urine pH 6.5 (4.5-7.5) Ur Specific [place] 1.017 (1.000-1.030) Urine Protein 3+ H (Negative) Urine Glucose (UA) 3+ H (Negative) Diagnostic Findings Chest X-Ray 05/28/21 18:40 XR chest 1V portable HISTORY: 55 years-old Male weakness, intox, leg swelling acute weakness with lower extremity swelling COMPARISON: Chest radiograph 01/20/2021 TECHNIQUE: Portable AP view of the chest FINDINGS: Cardiac silhouette is enlarged. Calcified plaque of the thoracic aorta. No pneumothorax, pleural effusion, airspace consolidation or overt pulmonary edema. Degenerative changes of the shoulders and spine. IMPRESSION: No acute process. ACT 112: Negative or not required by law. The above report was generated using voice recognition software. It may contain grammatical, syntax or spelling errors. Electronically signed by: Suhas Ramos M.D. 05/28/2021 7:[address] 05/28/21 18:40 CT head/brain wo con CLINICAL HISTORY: 55 years-old Male with intox, weakness. Acute weakness with intoxication TECHNIQUE: Multiple axial CT images of the head were obtained without contrast. A dose lowering technique was utilized adhering to the principles of ALARA. CT DOSE: 749.40 mGy.cm COMPARISON: Head CT 12/02/2020 FINDINGS: No acute intracranial hemorrhage, midline shift, intracranial mass, hydrocephalus, territorial ischemia or abnormal extra-axial collection. Mild involutional changes. Calcifications of the falx cerebri. Cerebral vascular calcifications. The calvarium is intact. Mastoid air cells are clear. There is severe near complete opacification of the left maxillary sinus with moderate mucoperiosteal thickening of the right maxillary sinus. Mild to moderate residual thickening of the ethmoid air cells. Leftward spurring and bowing of the nasal septum. Unremarkable soft tissues and orbits. IMPRESSION: No acute intracranial abnormality. ACT 112: Negative or not required by law. The above report was generated using voice recognition software. It may contain grammatical, syntax or spelling errors. Electronically signed by: Suhas Ramos M.D. 05/28/2021 7:20 PM Supervising Physician Co-Signing Physician Notes Attending addendum: The patient was seen and examined in the emergency room He is recently out from inpatient alcohol rehab and started drinking again Has been complaining of leg swelling redness and pain for the last few days or so in the primary care physician advised to come into the emergency room He denies any chest pain, shortness of breath or palpitation, denies any fever and/or chills, denies any abdominal pain, distention nausea and or vomiting On examination He is obese with mild discomfort secondary to bilateral leg pain Blood pressure noted to be very high initially systolic more than 190 Chestclear to auscultate bilaterally Abdomenmildly distended, soft, no organomegaly and bowel sounds present Extremitiesbilateral leg swelling about 1+ with redness and tenderness involving the legs CNSalert, awake and oriented x3. No focal sensory or motor deficit appreciated His admission labs, EKG and imaging studies reviewed Has hypertensive urgency, alcoholism with recurrence of alcohol abuse Mild troponin elevation due to strain secondary to high blood pressure and lactate elevated without any evidence of sepsis Bilateral leg swelling with cellulitis No evidence of withdrawal at this time but will need to be on withdrawal protocol Agree with assessment and plan as outlined above by MIHAELA Patino Dr
[2021-05-28 20:25] LABS: Appearance Urine Clear (Clear); Bacteria Urine Automated Negative (Negative); Bilirubin Urine Negative (Negative); Blood Urine 1+ (Negative); Cast Urine Automated 0 /lpf (0-5); Color Urine Yellow; Epithelial Cell Urine Auto 0-5 /lpf (0-5); Glucose Urine UA 3+ (Negative); Ketones Urine Negative (Negative); Leukocyte Esterase Urine Negative (Negative); Nitrite Urine Negative (Negative); Protein Urine 3+ (Negative); RBC Urine Automated 0-4 /hpf (0-4); Specific Gravity Urine 1.017 (1.000-1.030); Urobilinogen Urine Negative (Negative); WBC Urine Automated 0 /hpf (0-5); pH Urine 6.5 (4.5-7.5)
[2021-05-28] MEDS ORDERED: GABAPENTIN 1200MG ALCOHOL WITHDRAWAL LOAD PO STA (20:43)
[2021-05-28] MEDS ORDERED: GABAPENTIN 600 MG TAB PO ONE (21:08)
[2021-05-28] MEDS ORDERED: LORazepam 2 MG/1 ML VIAL IV STA (21:14)
[2021-05-28] MEDS ORDERED: ACETAMINOPHEN 325 MG TAB PO PRN (22:03)
[2021-05-28] MEDS ORDERED: GLUCOSE 10 TABS/TUBE PO PRN (22:03)
[2021-05-28] MEDS ORDERED: hydrOXYzine HCl 25 MG TAB PO PRN (22:03)
[2021-05-28] MEDS ORDERED: GLUCAGON FOR INJ 1 MG VIAL SQ PRN (22:03)
[2021-05-28] MEDS ORDERED: GLUCOSE 40% GEL 15 GM TUBE PO PRN (22:03)
[2021-05-28] MEDS ORDERED: CARBOHYDRATES FOR HYPOGLYCEMIA PO PRN (22:03)
[2021-05-28] MEDS ORDERED: NITROGLYCERIN SL 0.4 MG/TAB TAB SL PRN (22:03)
--- NOTE | 2021-05-28 22:32 | Ultrasound Report ---
BILATERAL LOWER EXTREMITY VENOUS DOPPLER HISTORY: Acute pain and swelling of the lower legs BLE edema, erythema. R/O DVT COMPARISON STUDY: Doppler study 01/21/2021 FINDINGS: There is normal compressibility, flow, and augmentation within the bilateral lower extremit y deep venous systems. Subcutaneous edema. IMPRESSION: No DVT within the right or left lower extremity. ACT 112: Negative or not required by law. Electronically signed by: Suhas Ramos M.D. 05/28/2021 10:31 PM
[2021-05-28] MEDS ORDERED: ceFAZolin 2000MG 2,000 MG/15 ML SYR IV SCH (23:15)
[2021-05-28] MEDS: LORazepam 2 MG/1 ML VIAL IV PRN (23:31)
[2021-05-28] MEDS: hydrALAZINE HCL 20 MG/ML VIAL IV PRN (23:36)
[2021-05-28] MEDS: INSULIN ASPART PER UNIT SC SCH (23:46)
[2021-05-28] MEDS: traZODone HCL 50 MG TAB PO SCH (23:46)
[2021-05-28] MEDS: BUPRENORPHINE/NALOXONE 8/2 MG TAB SL SCH (23:46)
[2021-05-28] MEDS: INSULIN GLARGINE SOLOSTAR 100 UNITS/ML 3 ML PEN SC SCH (23:47)
[2021-05-28] MEDS: ENOXAPARIN INJ 40 MG/0.4 ML SYR SQ SCH (23:50)
[2021-05-28] MEDS: FOLIC ACID 1 MG TAB PO SCH (23:51)
[2021-05-28] MEDS: THIAMINE HCL 100 MG TAB PO SCH (23:51)
[2021-05-29] MEDS ORDERED: SODIUM CHLORIDE 0.9% 1000ML 1,000 ML IV SCH (00:15)
[2021-05-29] MEDS ORDERED: DOXYCYCLINE HYCLATE 100 MG in DEXTROSE 5% 100 ML IV ONE (01:00)
[2021-05-29] MEDS: LACTATED RINGER'S 1,000 ML IV SCH ×2 (01:22→06:22)
[2021-05-29] MEDS: METOPROLOL SUCC 50MG EXT REL TAB PO SCH (01:23)
[2021-05-29] MEDS: LORazepam 2 MG/1 ML VIAL IV PRN ×2 (01:30→03:44)
--- NOTE | 2021-05-29 03:30 | Communication Note ---
Date of Service: May 29, 2021 Overnight developments Uncontrolled BP overnight SBP 160s to 200s since admission troponin 0.015 <- 0.012 lactic acid 4.3 <- 3.1 AP Uncontrolled hypertension Lactic acidosis, possibly from sepsis secondary to LE cellulitis Increase Toprol-XL to 150 mg daily from home dose of 100 mg daily Initiate lisinopril Change IVF to LRS, follow lactic acid Change cefazolin to Doxycycline (MRSA coverage particularly important in a poorly controlled diabetic)
[2021-05-29] MEDS: GABAPENTIN 600 MG TAB PO SCH ×3 (03:56→17:13)
[2021-05-29] MEDS: lisinopril 10 MG TAB PO SCH (03:57)
[2021-05-29 05:34] LABS: Hematocrit (blood only) 33.5 % (42-52); Hemoglobin 11.4 g/dL (14.0-18.0); Mean Corpuscular Hemoglobin 31.5 pg (25-34); Mean Corpuscular Volume 92.5 fL (80-100); Mean Platelet Volume 9.6 fL (7.4-10.4); Platelet Count 138 K/uL (130-400); RDW Standard Deviation 47.7 fL (36.4-46.3); Red Blood Count 3.62 M/uL (4.7-6.1); White Blood Count 4.48 K/uL (4.8-10.8)
[2021-05-29 05:54] LABS: Partial Thromboplastin Ratio 1.3; Partial Thromboplastin Time 34.7 Seconds (21.0-31.0)
[2021-05-29 05:57] LABS: Albumin Globulin Ratio 0.8 (0.9-2); Albumin Level 2.5 gm/dl (3.4-5.0); BUN Creatinine Ratio 23.6 (10-20); Bilirubin,Total 0.3 mg/dl (0.2-1.0); Calcium 7.4 mg/dl (8.5-10.1); Creatinine Clr Calc Pharmacy 96.9 ml/min; Est GFR (African American) 90.5 ml/min; Est GFR (Non-African American) 78.1 ml/min; Globulin 3.1 gm/dl (2.5-4.0); Magnesium 1.5 mg/dl (1.7-2.4); Phosphorus 3.9 mg/dl (2.5-4.9); Potassium 3.5 mmol/L (3.5-5.1); Total Protein 5.6 gm/dl (6.0-8.3)
[2021-05-29 05:58] LABS: Troponin I 0.12 ng/ml (0-0.04)
[2021-05-29] MEDS ORDERED: LACTATED RINGER'S 1,000 ML IV ONE (06:10)
[2021-05-29] MEDS: MAGNESIUM SULFATE / D5W 1 GM/100 ML BAG IV SCH ×2 (06:43→08:35)
[2021-05-29] MEDS: INSULIN ASPART PER UNIT SC SCH ×4 (07:41→20:38)
[2021-05-29] MEDS: INSULIN GLARGINE SOLOSTAR 100 UNITS/ML 3 ML PEN SC SCH ×2 (07:42→21:25)
--- NOTE | 2021-05-29 08:20 | Electrocardiogram Report ---
Test Reason : Blood Pressure : / mmHG Vent. Rate : 091 BPM Atrial Rate : 091 BPM P-R Int : 180 ms QRS Dur : 102 ms QT Int : 370 ms P-R-T Axes : 051 -06 051 degrees QTc Int : 455 ms Sinus rhythm with occasional Premature ventricular complexes Otherwise normal ECG When compared with ECG of 16-DEC-2020 10:02, Premature ventricular complexes are now Present PA interval has decreased Vent. rate has increased BY 30 BPM Confirmed by Randell Hancock ([id number]) on 05/29/2021 8:20:26 AM Referred By: REFERRED SELF Confirmed By:Randell Hancock
--- NOTE | 2021-05-29 08:31 | Electrocardiogram Report ---
Test Reason : Blood Pressure : / mmHG Vent. Rate : 075 BPM Atrial Rate : 075 BPM P-R Int : 176 ms QRS Dur : 102 ms QT Int : 434 ms P-R-T Axes : 053 -04 040 degrees QTc Int : 484 ms Poor data quality, interpretation may be adversely affected Sinus rhythm with Premature supraventricular complexes Prolonged QT Abnormal ECG When compared with ECG of 28-MAY-2021 19:05, Premature ventricular complexes are no longer Present Premature supraventricular complexes are now Present Confirmed by Randell Hancock ([id number]) on 05/29/2021 8:31:46 AM Referred By: REFERRED SELF Confirmed By:Randell Hancock
[2021-05-29] MEDS ORDERED: METOPROLOL SUCC 50MG EXT REL TAB PO SCH (09:00)
[2021-05-29] MEDS ORDERED: amLODIPine BESYLATE 5 MG TAB PO SCH (09:00)
[2021-05-29] MEDS: THIAMINE HCL 100 MG TAB PO SCH (09:36)
[2021-05-29] MEDS: busPIRone 5 MG TAB PO SCH ×3 (09:36→21:19)
[2021-05-29] MEDS: CYANOCOBALAMIN (B-12) 500 MCG TABLET PO SCH (09:36)
[2021-05-29] MEDS: ATORVASTATIN 40 MG TAB PO SCH (09:36)
[2021-05-29] MEDS: NICOTINE 21 MG/24 HR TDSY TD SCH (09:36)
[2021-05-29] MEDS: MULTIVITAMIN TAB PO SCH (09:37)
[2021-05-29] MEDS: VENLAFAXINE HCL XR 150 MG CAPXR PO SCH (09:37)
[2021-05-29] MEDS: FOLIC ACID 1 MG TAB PO SCH (09:37)
[2021-05-29] MEDS: ASPIRIN 81 MG ECTAB PO SCH (09:37)
[2021-05-29] MEDS: ARIPIprazole 1 MG/ML ORAL SOLN 150 ML BTL PO SCH (09:37)
[2021-05-29] MEDS: BUPRENORPHINE/NALOXONE 8/2 MG TAB SL SCH ×2 (09:39→21:32)
[2021-05-29] MEDS: MAGNESIUM OXIDE 400 MG TAB PO SCH (09:39)
[2021-05-29] MEDS: LORazepam 1 MG TAB PO PRN ×5 (11:04→22:51)
[2021-05-29] MEDS ORDERED: FUROSEMIDE INJ 20 MG/2 ML VIAL IV ONE (13:42)
[2021-05-29] MEDS ORDERED: POTASSIUM CHLORIDE CRTAB 20 MEQ TABCR PO ONE (13:43)
--- NOTE | 2021-05-29 13:51 | Hospitalist Progress Note ---
Date of Service May 29, 2021 Assessment & Plan (1) Alcoholism: Plan: Patient is a 55 yr male with H/O Uncontrolled DM II, HTN, HLD, alcohol abuse, alcohol withdrawal seizure, CAD s/p stent, chronic back pain, untreated CATALINO, tobacco use, neuropathy, CKD III presented to ER with complaint of increased leg swelling, drinking alcohol again. Alcohol Abuse: ETOH: 388 Monitor for withdrawal seizure/fall precautions Alcohol withdrawal protocol with gabapentin, Ativan PRN Received Banana Bag Continue Thiamine, folic acid Would benefit from rehab placement B/L Lower extremity edema Suspected Cellulitis H/O Chronic LE edema, Chronic Venous stasis ? Compliance of diuretic use CXR: No acute changes Venous Doppler: No DVT within the right or left lower extremity Resume home diuretic--Lasix 40mg daily Continue Doxycycline for now Lactic acidosis Likely due to Metformin use Resolved with IV fluids Hold Metformin for now Hypertension: Noncompliant with medications -Continue amlodipine, metoprolol succinate -IV Hydralazine PRN CAD: S/p stent H/O Cardiomyopathy Echo in 2020 EF 55% Chronic Troponin elevation EKG showed no signs of acute ischaemia Continue aspirin, metoprolol, statin DM II A1c: 9.3 on 05/17/2021 Uncontrolled due to noncompliance with medications Hold home medications Continue Insulin Monitor BGs CKD stage III: Baseline ~1.0 Monitor renal functions Avoid nephrotoxic agents when possible Chronic pancytopenia: Likely due to chronic alcoholism Monitor CBC Chronic pain: On Suboxone Tobacco use disorder: -Smoking cessation encouraged -Nicotine patch CATALINO: H/O noncompliance with CPAP DVT Px: Lovenox SQ Code Status Full Code Admission and Anticipated Discharge Date Admission Date: May 28, 2021 Subjective Patient is seen and examined at bedside States having tremor and feels shaky Also reports having leg edema Denies chest pain, dyspnea, dizziness, nausea, abd pain Offers no other complaints Review of Systems Review of Systems: All systems reviewed & are unremarkable except as noted in Subjective Physical Exam Physical Exam: Physical Exam: Vitals signs as noted above General Appearance:Obese, Ill appearing, no apparent distress Head: normocephalic, Atraumatic Eyes: normal inspection, EOMI Neck: supple, Trachea midline Respiratory/Chest: Decreased breath sounds, CTA, No accessory muscle use Cardiovascular: S1, S2, No murmur Abdomen/GI:Soft, Non tender, Bowel sounds present Extremities/Musculoskeletal:normal inspection, B/L LE edema, Mild erythematous Neurologic/Psych:AAOX3, grossly no focal neurological deficits, +Tremor Skin: normal color, warm Results & Data Results & Data ([facility]) Vital Signs (Past 12 Hours) Vital Signs Temp Pulse Pulse Resp BP BP Pulse Ox 05/29/21 10:57 37.0 C 73 20 162/94 H 99 05/29/21 08:44 73 05/29/21 08:41 05/29/21 07:29 36.5 C 77 22 145/95 H 97 05/29/21 05:21 75 142/83 H 05/29/21 04:03 93 H 05/29/21 03:14 36.7 C 86 21 181/104 H 97 Pulse Ox 05/29/21 10:57 05/29/21 08:44 05/29/21 08:41 96 05/29/21 07:29 05/29/21 05:21 05/29/21 04:03 05/29/21 03:14 Laboratory Results Short CBC 05/28/21 05/29/21 Range/Units 18:56 05:20 WBC 4.53 L 4.48 L (4.8-10.8) K/uL Hgb 12.0 L 11.4 L (14.0-18.0) g/dL Hct 35.4 L 33.5 L (42-52) % Plt Count 149 138 (130-400) K/uL BMP 05/28/21 05/29/21 18:56 05:20 Sodium 136 141 Potassium 4.1 3.5 Chloride 100 105 Carbon Dioxide 27 27 BUN 27 H 25 H Creatinine 1.20 1.06 Glucose 443 H* 104 H Calcium 8.7 7.4 L Cardiac Enzymes 05/28/21 05/28/21 05/29/21 Range/Units 18:56 22:47 05:20 Total Creatine Kinase 383 H (30-223) U/L Troponin I 0.12 H* 0.15 H* 0.12 H* (0-0.04) ng/ml Liver Function 05/28/21 05/29/21 Range/Units 18:56 05:20 Total Bilirubin 0.3 0.3 (0.2-1.0) mg/dl AST 38 36 (13-39) U/L ALT 29 26 (7-52) U/L Alkaline Phosphatase 135 H 97 (34-104) U/L Albumin 2.8 L 2.5 L (3.4-5.0) gm/dl Urine 05/28/21 Range/Units 19:54 Urine Color Yellow Urine Appearance Clear (Clear) Urine pH 6.5 (4.5-7.5) Ur Specific [place] 1.017 (1.000-1.030) Urine Protein 3+ H (Negative) Urine Glucose (UA) 3+ H (Negative)
[2021-05-29] MEDS: hydrALAZINE HCL 20 MG/ML VIAL IV PRN (19:44)
[2021-05-29] MEDS: DOXYCYCLINE HYCLATE 100 MG CAP PO SCH (21:20)
[2021-05-29] MEDS: ENOXAPARIN INJ 40 MG/0.4 ML SYR SQ SCH (21:22)
[2021-05-29] MEDS: MIRTAZAPINE TAB 15 MG TAB PO SCH (21:22)
[2021-05-29] MEDS: traZODone HCL 50 MG TAB PO SCH (21:28)
[2021-05-29] MEDS ORDERED: ATIVAN IV ALCOHOL WITHDRAWL IV PRN (22:56)
[2021-05-29] MEDS ORDERED: LORazepam 2 MG/1 ML VIAL IV STA (23:05)
[2021-05-30] MEDS: GABAPENTIN 600 MG TAB PO SCH ×3 (03:47→22:18)
[2021-05-30 06:04] LABS: Hematocrit (blood only) 34.3 % (42-52); Hemoglobin 11.4 g/dL (14.0-18.0); Mean Corpuscular Hemoglobin 31.4 pg (25-34); Mean Corpuscular Hgb Conc 33.2 g/dL (32-36); Mean Corpuscular Volume 94.5 fL (80-100); Mean Platelet Volume 10.4 fL (7.4-10.4); Platelet Count 124 K/uL (130-400); RDW Coefficient of Variation 13.7 % (11.5-14.5); RDW Standard Deviation 47.9 fL (36.4-46.3); Red Blood Count 3.63 M/uL (4.7-6.1)
[2021-05-30 06:31] LABS: BUN Creatinine Ratio 29.9 (10-20); Calcium 7.4 mg/dl (8.5-10.1); Creatinine Clr Calc Pharmacy 105.8 ml/min; Est GFR (African American) 100.7 ml/min; Est GFR (Non-African American) 86.9 ml/min; Magnesium 1.7 mg/dl (1.7-2.4); Potassium 4.1 mmol/L (3.5-5.1)
[2021-05-30] MEDS: NICOTINE 21 MG/24 HR TDSY TD SCH (07:13)
[2021-05-30] MEDS: lisinopril 10 MG TAB PO SCH (09:53)
[2021-05-30] MEDS: ASPIRIN 81 MG ECTAB PO SCH (09:53)
[2021-05-30] MEDS: METOPROLOL SUCC 50MG EXT REL TAB PO SCH ×2 (09:54→10:22)
[2021-05-30] MEDS: busPIRone 5 MG TAB PO SCH ×3 (09:54→22:07)
[2021-05-30] MEDS: DOXYCYCLINE HYCLATE 100 MG CAP PO SCH ×2 (09:54→22:06)
[2021-05-30] MEDS: THIAMINE HCL 100 MG TAB PO SCH (09:55)
[2021-05-30] MEDS: FUROSEMIDE 40 MG TAB PO SCH (09:55)
[2021-05-30] MEDS: VENLAFAXINE HCL XR 150 MG CAPXR PO SCH (09:55)
[2021-05-30] MEDS: CYANOCOBALAMIN (B-12) 500 MCG TABLET PO SCH (09:55)
[2021-05-30] MEDS: MULTIVITAMIN TAB PO SCH (09:55)
[2021-05-30] MEDS: FOLIC ACID 1 MG TAB PO SCH (09:55)
[2021-05-30] MEDS: ARIPIprazole 1 MG/ML ORAL SOLN 150 ML BTL PO SCH (09:55)
[2021-05-30] MEDS: INSULIN GLARGINE SOLOSTAR 100 UNITS/ML 3 ML PEN SC SCH ×2 (09:55→22:36)
[2021-05-30] MEDS: ATORVASTATIN 40 MG TAB PO SCH (09:55)
[2021-05-30] MEDS: BUPRENORPHINE/NALOXONE 8/2 MG TAB SL SCH ×2 (09:55→22:03)
[2021-05-30] MEDS: INSULIN ASPART PER UNIT SC SCH ×4 (09:56→22:35)
[2021-05-30] MEDS: LORazepam 2 MG/1 ML VIAL IV PRN ×5 (10:17→22:22)
[2021-05-30] MEDS: MAGNESIUM OXIDE 400 MG TAB PO SCH (12:40)
[2021-05-30] MEDS ORDERED: GABAPENTIN 600 MG TAB PO ONE (14:00)
--- NOTE | 2021-05-30 16:02 | Hospitalist Progress Note ---
Date of Service May 30, 2021 Assessment & Plan (1) Alcoholism: Plan: Patient is a 55 yr male with H/O Uncontrolled DM II, HTN, HLD, alcohol abuse, alcohol withdrawal seizure, CAD s/p stent, chronic back pain, untreated CATALINO, tobacco use, neuropathy, CKD III presented to ER with complaint of increased leg swelling, drinking alcohol again. Alcohol Abuse: ETOH: 388 Monitor for withdrawal seizure/fall precautions Alcohol withdrawal protocol with gabapentin, Ativan PRN Received Banana Bag Continue Thiamine, folic acid Would benefit from rehab placement Continue current management B/L Lower extremity edema Suspected Leg Cellulitis H/O Chronic LE edema, Chronic Venous stasis ? Compliance of diuretic use CXR: No acute changes Venous Doppler: No DVT within the right or left lower extremity Resume home diuretic--Lasix 40mg daily Continue Doxycycline Lactic acidosis Likely due to Metformin use Resolved with IV fluids Hold Metformin for now Resolved Hypertension: Noncompliant with medications -Continue amlodipine, metoprolol succinate -IV Hydralazine PRN CAD: S/p stent H/O Cardiomyopathy Echo in 2020 EF 55% Chronic Troponin elevation EKG showed no signs of acute ischaemia Continue aspirin, metoprolol, statin DM II A1c: 9.3 on 05/17/2021 Uncontrolled due to noncompliance with medications Hold home medications Continue Insulin Monitor BGs CKD stage III: Baseline ~1.0 Monitor renal functions Avoid nephrotoxic agents when possible Chronic pancytopenia: Likely due to chronic alcoholism Monitor CBC Chronic pain: On Suboxone Tobacco use disorder: -Smoking cessation encouraged -Nicotine patch CATALINO: H/O noncompliance with CPAP DVT Px: Lovenox SQ Code Status Full Code Admission and Anticipated Discharge Date Admission Date: May 28, 2021 Subjective Patient is seen and examined at bedside Drowsy during my encounter BP relatively low this morning Denies chest pain, dyspnea, dizziness, nausea, abd pain Review of Systems Review of Systems: All systems reviewed & are unremarkable except as noted in Subjective Physical Exam Physical Exam: Physical Exam: Vitals signs as noted above General Appearance:Obese, Ill appearing, no apparent distress Head: normocephalic, Atraumatic Eyes: normal inspection, EOMI Neck: supple, Trachea midline Respiratory/Chest: Decreased breath sounds, CTA, No accessory muscle use Cardiovascular: S1, S2, No murmur Abdomen/GI:Soft, Non tender, Bowel sounds present Extremities/Musculoskeletal:normal inspection, B/L LE edema, Mild erythematous Neurologic/Psych:AAOX3, grossly no focal neurological deficits, +Tremor Skin: normal color, warm Results & Data Results & Data ([facility]) Vital Signs (Past 12 Hours) Vital Signs Temp Pulse Pulse Resp BP BP Pulse Ox 05/30/21 15:11 73 05/30/21 13:43 36.6 C 73 17 113/77 96 05/30/21 12:34 36.5 C 72 16 113/79 95 05/30/21 10:12 36 C L 74 14 137/79 97 05/30/21 08:31 79 05/30/21 08:00 05/30/21 07:10 36.4 C L 77 14 103/80 95 Pulse Ox 05/30/21 15:11 05/30/21 13:43 05/30/21 12:34 05/30/21 10:12 05/30/21 08:31 05/30/21 08:00 95 05/30/21 07:10 Laboratory Results Short CBC 05/30/21 Range/Units 05:28 WBC 4.30 L (4.8-10.8) K/uL Hgb 11.4 L (14.0-18.0) g/dL Hct 34.3 L (42-52) % Plt Count 124 L (130-400) K/uL BMP 05/30/21 05:28 Sodium 136 Potassium 4.1 Chloride 101 Carbon Dioxide 29 BUN 29 H Creatinine 0.97 Glucose 157 H Calcium 7.4 L
[2021-05-30] MEDS: DEXTROSE 50% 50 ML SYRINGE IV PRN ×2 (16:31→21:58)
[2021-05-30] MEDS: traZODone HCL 50 MG TAB PO SCH (22:05)
[2021-05-30] MEDS: MIRTAZAPINE TAB 15 MG TAB PO SCH (22:06)
[2021-05-30] MEDS: ENOXAPARIN INJ 40 MG/0.4 ML SYR SQ SCH (22:08)
[2021-05-31] MEDS: LORazepam 2 MG/1 ML VIAL IV PRN ×5 (03:51→16:51)
[2021-05-31 06:04] LABS: Hematocrit (blood only) 37.9 % (42-52); Hemoglobin 12.2 g/dL (14.0-18.0); Mean Corpuscular Hemoglobin 31.1 pg (25-34); Mean Corpuscular Hgb Conc 32.2 g/dL (32-36); Mean Corpuscular Volume 96.7 fL (80-100); Mean Platelet Volume 10.7 fL (7.4-10.4); Platelet Count 118 K/uL (130-400); RDW Coefficient of Variation 13.7 % (11.5-14.5); RDW Standard Deviation 48.7 fL (36.4-46.3); Red Blood Count 3.92 M/uL (4.7-6.1); White Blood Count 4.62 K/uL (4.8-10.8)
[2021-05-31 06:29] LABS: BUN Creatinine Ratio 28.3 (10-20); Calcium 8.6 mg/dl (8.5-10.1); Creatinine Clr Calc Pharmacy 96.8 ml/min; Est GFR (African American) 90.5 ml/min; Est GFR (Non-African American) 78.1 ml/min; Magnesium 1.8 mg/dl (1.7-2.4); Potassium 4.6 mmol/L (3.5-5.1)
[2021-05-31] MEDS: INSULIN ASPART PER UNIT SC SCH ×4 (07:32→21:50)
[2021-05-31] MEDS: busPIRone 5 MG TAB PO SCH ×3 (09:00→21:57)
[2021-05-31] MEDS: BUPRENORPHINE/NALOXONE 8/2 MG TAB SL SCH ×2 (09:10→21:59)
[2021-05-31] MEDS: amLODIPine BESYLATE 5 MG TAB PO SCH (09:11)
[2021-05-31] MEDS: METOPROLOL SUCC 50MG EXT REL TAB PO SCH (09:12)
[2021-05-31] MEDS: lisinopril 10 MG TAB PO SCH (09:12)
[2021-05-31] MEDS: ATORVASTATIN 40 MG TAB PO SCH (09:12)
[2021-05-31] MEDS: FOLIC ACID 1 MG TAB PO SCH (09:13)
[2021-05-31] MEDS: FUROSEMIDE 40 MG TAB PO SCH (09:13)
[2021-05-31] MEDS: ARIPIprazole 1 MG/ML ORAL SOLN 150 ML BTL PO SCH (09:13)
[2021-05-31] MEDS: VENLAFAXINE HCL XR 150 MG CAPXR PO SCH (09:13)
[2021-05-31] MEDS: NICOTINE 21 MG/24 HR TDSY TD SCH (09:14)
[2021-05-31] MEDS: THIAMINE HCL 100 MG TAB PO SCH (09:14)
[2021-05-31] MEDS: ASPIRIN 81 MG ECTAB PO SCH (09:15)
[2021-05-31] MEDS: MULTIVITAMIN TAB PO SCH (09:15)
[2021-05-31] MEDS: DOXYCYCLINE HYCLATE 100 MG CAP PO SCH ×2 (09:15→21:55)
[2021-05-31] MEDS: MAGNESIUM OXIDE 400 MG TAB PO SCH (09:16)
[2021-05-31] MEDS: CYANOCOBALAMIN (B-12) 500 MCG TABLET PO SCH (09:16)
[2021-05-31] MEDS: INSULIN GLARGINE SOLOSTAR 100 UNITS/ML 3 ML PEN SC SCH (09:24)
[2021-05-31] MEDS: GABAPENTIN 600 MG TAB PO SCH (12:21)
--- NOTE | 2021-05-31 13:47 | Hospitalist Progress Note ---
Date of Service May 31, 2021 Assessment & Plan (1) Alcoholism: Plan: Patient is a 55 yr male with H/O Uncontrolled DM II, HTN, HLD, alcohol abuse, alcohol withdrawal seizure, CAD s/p stent, chronic back pain, untreated CATALINO, tobacco use, neuropathy, CKD III presented to ER with complaint of increased leg swelling, drinking alcohol again. Alcohol Abuse: ETOH: 388 Monitor for withdrawal seizure/fall precautions Alcohol withdrawal protocol with gabapentin, Ativan PRN Received Banana Bag Continue Thiamine, folic acid Would benefit from rehab placement Case management to help with discharge planning Will complete Gabapentin protocol tomorrow B/L Lower extremity edema Suspected Leg Cellulitis H/O Chronic LE edema, Chronic Venous stasis ? Compliance of diuretic use CXR: No acute changes Venous Doppler: No DVT within the right or left lower extremity Resume home diuretic--Lasix 40mg daily Continue Doxycycline Lactic acidosis Likely due to Metformin use Resolved with IV fluids Hold Metformin for now Resolved Hypertension: Noncompliant with medications -Continue metoprolol succinate Decreased Amlodipine to 2.5mg Also started on lisinopril 5mg daily -IV Hydralazine PRN CAD: S/p stent H/O Cardiomyopathy Echo in 2020 EF 55% Chronic Troponin elevation EKG showed no signs of acute ischaemia Continue aspirin, metoprolol, statin DM II A1c: 9.3 on 05/17/2021 Uncontrolled due to noncompliance with medications Hold home medications Continue Insulin Monitor BGs CKD stage III: Baseline ~1.0 Monitor renal functions Avoid nephrotoxic agents when possible Chronic pancytopenia: Likely due to chronic alcoholism Monitor CBC Chronic pain: On Suboxone Tobacco use disorder: -Smoking cessation encouraged -Nicotine patch CATALINO: H/O noncompliance with CPAP DVT Px: Lovenox SQ Code Status Full Code Admission and Anticipated Discharge Date Admission Date: May 28, 2021 Subjective Patient is seen and examined at bedside More alert but still very sleepy Reports having intermittent hallucinations Denies chest pain, dyspnea, dizziness, nausea, abd pain Less tremor today Review of Systems Review of Systems: All systems reviewed & are unremarkable except as noted in Subjective Physical Exam Physical Exam: Physical Exam: Vitals signs as noted above General Appearance:Obese, Ill appearing, no apparent distress Head: normocephalic, Atraumatic Eyes: normal inspection, EOMI Neck: supple, Trachea midline Respiratory/Chest: Decreased breath sounds, CTA, No accessory muscle use Cardiovascular: S1, S2, No murmur Abdomen/GI:Soft, Non tender, Bowel sounds present Extremities/Musculoskeletal:normal inspection, B/L LE edema, Mild erythematous Neurologic/Psych:AAOX3, grossly no focal neurological deficits, +Tremor Skin: normal color, warm Results & Data Results & Data ([facility]) Vital Signs (Past 12 Hours) Vital Signs Temp Pulse Pulse Resp BP BP Pulse Ox 05/31/21 11:05 36.5 C 79 19 104/73 95 05/31/21 07:09 36.9 C 89 19 124/102 H 94 05/31/21 06:15 87 05/31/21 03:45 36.5 C 83 22 156/106 H 93 Laboratory Results Short CBC 05/31/21 Range/Units 05:24 WBC 4.62 L (4.8-10.8) K/uL Hgb 12.2 L (14.0-18.0) g/dL Hct 37.9 L (42-52) % Plt Count 118 L (130-400) K/uL BMP 05/31/21 05:24 Sodium 139 Potassium 4.6 Chloride 103 Carbon Dioxide 32 BUN 30 H Creatinine 1.06 Glucose 85 Calcium 8.6
[2021-05-31] MEDS: ENOXAPARIN INJ 40 MG/0.4 ML SYR SQ SCH (21:51)
[2021-05-31] MEDS: traZODone HCL 50 MG TAB PO SCH (21:56)
[2021-05-31] MEDS: MIRTAZAPINE TAB 15 MG TAB PO SCH (21:56)
[2021-06-01 06:28] LABS: Hematocrit (blood only) 35.2 % (42-52); Hemoglobin 11.5 g/dL (14.0-18.0); Mean Corpuscular Hemoglobin 31.4 pg (25-34); Mean Corpuscular Hgb Conc 32.7 g/dL (32-36); Mean Corpuscular Volume 96.2 fL (80-100); Mean Platelet Volume 10.7 fL (7.4-10.4); Platelet Count 103 K/uL (130-400); RDW Coefficient of Variation 13.2 % (11.5-14.5); RDW Standard Deviation 46.2 fL (36.4-46.3); Red Blood Count 3.66 M/uL (4.7-6.1); White Blood Count 4.51 K/uL (4.8-10.8)
[2021-06-01 06:51] LABS: BUN Creatinine Ratio 26.4 (10-20); Calcium 7.8 mg/dl (8.5-10.1); Creatinine Clr Calc Pharmacy 79.4 ml/min; Est GFR (African American) 71.4 ml/min; Est GFR (Non-African American) 61.6 ml/min; Potassium 4.5 mmol/L (3.5-5.1)
[2021-06-01] MEDS: INSULIN GLARGINE SOLOSTAR 100 UNITS/ML 3 ML PEN SC SCH (08:26)
[2021-06-01] MEDS: INSULIN ASPART PER UNIT SC SCH ×4 (08:26→20:47)
[2021-06-01] MEDS: FOLIC ACID 1 MG TAB PO SCH (08:27)
[2021-06-01] MEDS: VENLAFAXINE HCL XR 150 MG CAPXR PO SCH (08:27)
[2021-06-01] MEDS: busPIRone 5 MG TAB PO SCH ×3 (08:27→20:54)
[2021-06-01] MEDS: ATORVASTATIN 40 MG TAB PO SCH (08:27)
[2021-06-01] MEDS: METOPROLOL SUCC 50MG EXT REL TAB PO SCH (08:27)
[2021-06-01] MEDS: DOXYCYCLINE HYCLATE 100 MG CAP PO SCH ×2 (08:27→20:54)
[2021-06-01] MEDS: FUROSEMIDE 40 MG TAB PO SCH (08:27)
[2021-06-01] MEDS: CYANOCOBALAMIN (B-12) 500 MCG TABLET PO SCH (08:27)
[2021-06-01] MEDS: ASPIRIN 81 MG ECTAB PO SCH (08:27)
[2021-06-01] MEDS: lisinopril 5 MG TAB PO SCH (08:27)
[2021-06-01] MEDS: THIAMINE HCL 100 MG TAB PO SCH (08:28)
[2021-06-01] MEDS: amLODIPine BESYLATE 5 MG TAB PO SCH (08:28)
[2021-06-01] MEDS: MULTIVITAMIN TAB PO SCH (08:28)
[2021-06-01] MEDS: ARIPIprazole 1 MG/ML ORAL SOLN 150 ML BTL PO SCH (08:30)
[2021-06-01] MEDS: NICOTINE 21 MG/24 HR TDSY TD SCH (08:30)
[2021-06-01] MEDS: BUPRENORPHINE/NALOXONE 8/2 MG TAB SL SCH ×2 (08:42→20:54)
[2021-06-01] MEDS: MAGNESIUM OXIDE 400 MG TAB PO SCH (08:42)
[2021-06-01] MEDS ORDERED: GABAPENTIN 600 MG TAB PO SCH (09:45)
[2021-06-01] MEDS: LORazepam 2 MG/1 ML VIAL IV PRN ×4 (14:14→18:57)
[2021-06-01] MEDS ORDERED: NICOTINE POLACRILEX 2 MG GUM MT PRN (14:25)
--- NOTE | 2021-06-01 14:44 | Hospitalist Progress Note ---
Date of Service June 01, 2021 Assessment & Plan (1) Alcoholism: Plan: Patient is a 55 yr male with H/O Uncontrolled DM II, HTN, HLD, alcohol abuse, alcohol withdrawal seizure, CAD s/p stent, chronic back pain, untreated CATALINO, tobacco use, neuropathy, CKD III presented to ER with complaint of increased leg swelling, drinking alcohol again. Alcohol Abuse: ETOH: 388 Monitor for withdrawal seizure/fall precautions Completed Gabapentin Protocol Alcohol withdrawal protocol with Ativan PRN Received Banana Bag Continue Thiamine, folic acid Would benefit from rehab placement--Patient currently not interested Case management to help with discharge planning B/L Lower extremity edema Suspected Leg Cellulitis H/O Chronic LE edema, Chronic Venous stasis ? Compliance of diuretic use CXR: No acute changes Venous Doppler: No DVT within the right or left lower extremity Resume home diuretic--Lasix 40mg daily Continue Doxycycline Clinically improved Lactic acidosis Likely due to Metformin use Resolved with IV fluids Hold Metformin for now Resolved Hypertension: Noncompliant with medications -Continue metoprolol succinate, Amlodipine Also started on lisinopril 5mg daily -IV Hydralazine PRN Adjust meds as needed CAD: S/p stent H/O Cardiomyopathy Echo in 2020 EF 55% Chronic Troponin elevation EKG showed no signs of acute ischaemia Continue aspirin, metoprolol, statin DM II A1c: 9.3 on 05/17/2021 Uncontrolled due to noncompliance with medications Hold home medications Continue Insulin Monitor BGs CKD stage III: Baseline ~1.0 Monitor renal functions Avoid nephrotoxic agents when possible Chronic pancytopenia: Likely due to chronic alcoholism Monitor CBC Chronic pain: On Suboxone Tobacco use disorder: -Smoking cessation encouraged -Nicotine patch CATALINO: H/O noncompliance with CPAP DVT Px: Lovenox SQ Code Status Full Code Admission and Anticipated Discharge Date Admission Date: May 28, 2021 Subjective Patient is seen and examined at bedside Doing better this morning Denies hallucinations today Leg swelling improving Denies chest pain, dyspnea, dizziness, nausea, abd pain Review of Systems Review of Systems: All systems reviewed & are unremarkable except as noted in Subjective Physical Exam Physical Exam: Physical Exam: Vitals signs as noted above General Appearance:Obese, Ill appearing, no apparent distress Head: normocephalic, Atraumatic Eyes: normal inspection, EOMI Neck: supple, Trachea midline Respiratory/Chest: Decreased breath sounds, CTA, No accessory muscle use Cardiovascular: S1, S2, No murmur Abdomen/GI:Soft, Non tender, Bowel sounds present Extremities/Musculoskeletal:normal inspection, B/L LE edema, Mild erythematous improving Neurologic/Psych:AAOX3, grossly no focal neurological deficits, +Tremor Skin: normal color, warm Results & Data Results & Data ([facility]) Vital Signs (Past 12 Hours) Vital Signs Temp Pulse Pulse Resp BP BP Pulse Ox 06/01/21 11:22 36.9 C 84 19 158/100 H 94 06/01/21 08:19 36.9 C 85 20 167/84 H 91 06/01/21 06:20 73 06/01/21 03:44 36.6 C 71 18 125/74 96 Laboratory Results Short CBC 06/01/21 Range/Units 05:47 WBC 4.51 L (4.8-10.8) K/uL Hgb 11.5 L (14.0-18.0) g/dL Hct 35.2 L (42-52) % Plt Count 103 L (130-400) K/uL BMP 06/01/21 05:47 Sodium 138 Potassium 4.5 Chloride 103 Carbon Dioxide 31 BUN 34 H Creatinine 1.29 Glucose 113 H Calcium 7.8 L
[2021-06-01] MEDS ORDERED: chlordiazePOXIDE ALCOHOL WITHDRAWL 25MG PO STA (17:58)
[2021-06-01] MEDS: chlordiazePOXIDE HCl 25 MG CAP PO SCH (18:32)
[2021-06-01] MEDS: traZODone HCL 50 MG TAB PO SCH (20:54)
[2021-06-01] MEDS: ENOXAPARIN INJ 40 MG/0.4 ML SYR SQ SCH (20:55)
[2021-06-01] MEDS: MIRTAZAPINE TAB 15 MG TAB PO SCH (20:55)
[2021-06-02] MEDS: chlordiazePOXIDE HCl 25 MG CAP PO SCH ×4 (00:29→17:02)
[2021-06-02 07:38] LABS: Hematocrit (blood only) 34.7 % (42-52); Hemoglobin 11.6 g/dL (14.0-18.0); Mean Corpuscular Hemoglobin 31.6 pg (25-34); Mean Corpuscular Hgb Conc 33.4 g/dL (32-36); Mean Corpuscular Volume 94.6 fL (80-100); Mean Platelet Volume 10.2 fL (7.4-10.4); Platelet Count 116 K/uL (130-400); RDW Coefficient of Variation 13.1 % (11.5-14.5); RDW Standard Deviation 45.4 fL (36.4-46.3); Red Blood Count 3.67 M/uL (4.7-6.1); White Blood Count 4.16 K/uL (4.8-10.8)
[2021-06-02] MEDS: FOLIC ACID 1 MG TAB PO SCH (08:06)
[2021-06-02] MEDS: amLODIPine BESYLATE 5 MG TAB PO SCH (08:06)
[2021-06-02] MEDS: FUROSEMIDE 40 MG TAB PO SCH (08:06)
[2021-06-02] MEDS: VENLAFAXINE HCL XR 150 MG CAPXR PO SCH (08:06)
[2021-06-02] MEDS: ASPIRIN 81 MG ECTAB PO SCH (08:06)
[2021-06-02] MEDS: METOPROLOL SUCC 50MG EXT REL TAB PO SCH (08:06)
[2021-06-02] MEDS: MULTIVITAMIN TAB PO SCH (08:06)
[2021-06-02] MEDS: BUPRENORPHINE/NALOXONE 8/2 MG TAB SL SCH ×2 (08:06→20:37)
[2021-06-02] MEDS: ATORVASTATIN 40 MG TAB PO SCH (08:06)
[2021-06-02] MEDS: THIAMINE HCL 100 MG TAB PO SCH (08:06)
[2021-06-02] MEDS: NICOTINE 21 MG/24 HR TDSY TD SCH (08:07)
[2021-06-02] MEDS: CYANOCOBALAMIN (B-12) 500 MCG TABLET PO SCH (08:07)
[2021-06-02] MEDS: lisinopril 5 MG TAB PO SCH (08:07)
[2021-06-02] MEDS: DOXYCYCLINE HYCLATE 100 MG CAP PO SCH ×2 (08:07→20:37)
[2021-06-02] MEDS: busPIRone 5 MG TAB PO SCH ×3 (08:08→20:37)
[2021-06-02 08:09] LABS: BUN Creatinine Ratio 31.4 (10-20); Calcium 8.4 mg/dl (8.5-10.1); Est GFR (African American) 77.1 ml/min; Est GFR (Non-African American) 66.5 ml/min; Potassium 4.2 mmol/L (3.5-5.1)
[2021-06-02] MEDS: ARIPIprazole 1 MG/ML ORAL SOLN 150 ML BTL PO SCH (08:09)
[2021-06-02] MEDS: MAGNESIUM OXIDE 400 MG TAB PO SCH (08:10)
[2021-06-02] MEDS: INSULIN ASPART PER UNIT SC SCH ×4 (08:54→21:02)
[2021-06-02] MEDS: INSULIN GLARGINE SOLOSTAR 100 UNITS/ML 3 ML PEN SC SCH (08:55)
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
--- NOTE | 2021-06-02 14:18 | Hospitalist Progress Note ---
Date of Service June 02, 2021 Assessment & Plan (1) Alcoholism: Plan: 55 yr male with H/O Uncontrolled DM II, HTN, HLD, alcohol abuse, alcohol withdrawal seizure, CAD s/p stent, chronic back pain, untreated CATALINO, tobacco use, neuropathy, CKD III presented to ER with complaint of increased leg swelling, drinking alcohol again. Alcohol Abuse: On admission, ETOH was 388 Being managed for withdrawal Seizure/fall precautions Continue Thiamine, folic acid Patient seemed not to be interested in rehab at this time Case management to help with discharge planning Continue librium taper started yesterday B/L Lower extremity edema Suspected Leg Cellulitis H/O Chronic LE edema, Chronic Venous stasis ? Compliance of diuretic use CXR: No acute changes Venous Doppler: No DVT within the right or left lower extremity Continue Lasix 40mg daily Has been on doxycycline for 5 days. Will stop Lactic acidosis Likely due to Metformin use Resolved with IV fluids Hold Metformin for now Resolved Hypertension: Noncompliant with medications Continue metoprolol succinate, Amlodipine Also started on lisinopril 5mg daily IV Hydralazine PRN Adjust meds as needed CAD: S/p stent H/O Cardiomyopathy Echo in 2020 EF 55% Chronic Troponin elevation EKG showed no signs of acute ischaemia Continue aspirin, metoprolol, statin DM II A1c: 9.3 on 05/17/2021 Uncontrolled due to noncompliance with medications Hold home medications Continue Insulin Monitor BGs CKD stage III: Baseline ~1.0 Monitor renal functions Avoid nephrotoxic agents when possible Chronic pancytopenia: Likely due to chronic alcoholism Monitor CBC Chronic pain: On Suboxone Tobacco use disorder: -Smoking cessation encouraged -Nicotine patch CATALINO: H/O noncompliance with CPAP DVT Px: Lovenox SQ Code Status Full Code Admission and Anticipated Discharge Date Admission Date: May 28, 2021 Subjective Patient seen and examined. Patient was sleeping but arousable. Alert and oriented to person place and time. Per RN, patient is doing better today. Was agitated and confused yesterday with hallucinations Less tremulous today. Not agitated More interactive Patient denies any headache, dizziness Denied any chest pain, cough, shortness of breath Denies any nausea, vomiting, abdominal pain, diarrhea constipation Denies hallucinations Physical Exam Constitutional: + well hydrated and + obese; no acute distress Eyes: PERRL, conjunctivae normal, anicteric sclerae ENMT: external ear and nose normal, oropharynx normal Respiratory: normal respiratory effort, lungs clear to auscultation Cardiovascular: Rate/Rhythm: regular rate and regular rhythm S1-S2 Gastrointestinal (Abdomen): normal bowel sounds, soft, nontender, no hepatosplenomegaly Musculoskeletal: no cyanosis or clubbing, extremities motor strength 5/5 Trace pedal edema Neurologic: PERRL, EOMI, accommodation nl, no face palsy, no dysarthria Psychiatric: A+Ox3, euthymic affect Results & Data Results & Data ([facility]) Vital Signs (Past 12 Hours) Vital Signs Temp Pulse Pulse Resp BP BP Pulse Ox 06/02/21 11:21 36.8 C 74 18 123/84 94 06/02/21 08:00 71 06/02/21 07:19 37.0 C 72 18 164/87 H 92 06/02/21 03:51 36.7 C 71 18 167/79 H 94 Pulse Ox 06/02/21 11:21 06/02/21 08:00 92 06/02/21 07:19 06/02/21 03:51 Laboratory Results Abnormal lab results 06/01/21 06/01/21 06/02/21 Range/Units 16:34 20:44 07:12 WBC (4.8-10.8) K/uL RBC (4.7-6.1) M/uL Hgb (14.0-18.0) g/dL Hct (42-52) % Plt Count (130-400) K/uL BUN (6-23) mg/dl BUN/Creatinine Ratio (10-20) Glucose (70-99(Fasting)) mg/dl POC Glucose 223 H 134 H 122 H (70-99) mg/dl Calcium (8.5-10.1) mg/dl 06/02/21 06/02/21 06/02/21 Range/Units 07:22 07:22 11:17 WBC 4.16 L (4.8-10.8) K/uL RBC 3.67 L (4.7-6.1) M/uL Hgb 11.6 L (14.0-18.0) g/dL Hct 34.7 L (42-52) % Plt Count 116 L (130-400) K/uL BUN 38 H (6-23) mg/dl BUN/Creatinine Ratio 31.4 H (10-20) Glucose 117 H (70-99(Fasting)) mg/dl POC Glucose 194 H (70-99) mg/dl Calcium 8.4 L (8.5-10.1) mg/dl
[2021-06-02] MEDS: ENOXAPARIN INJ 40 MG/0.4 ML SYR SQ SCH (20:37)
[2021-06-02] MEDS: traZODone HCL 50 MG TAB PO SCH (20:37)
[2021-06-02] MEDS: MIRTAZAPINE TAB 15 MG TAB PO SCH (20:37)
[2021-06-03] MEDS: chlordiazePOXIDE HCl 25 MG CAP PO SCH (01:24)
[2021-06-03 07:02] LABS: Albumin Globulin Ratio 0.8 (0.9-2); Albumin Level 2.8 gm/dl (3.4-5.0); BUN Creatinine Ratio 26.6 (10-20); Bilirubin,Total 0.4 mg/dl (0.2-1.0); Calcium 8.5 mg/dl (8.5-10.1); Creatinine Clr Calc Pharmacy 73.1 ml/min; Est GFR (African American) 65.2 ml/min; Est GFR (Non-African American) 56.3 ml/min; Globulin 3.3 gm/dl (2.5-4.0); Magnesium 1.7 mg/dl (1.7-2.4); Phosphorus 3.7 mg/dl (2.5-4.9); Total Protein 6.1 gm/dl (6.0-8.3)
[2021-06-03] MEDS: INSULIN ASPART PER UNIT SC SCH ×4 (08:05→20:21)
[2021-06-03] MEDS: NICOTINE 21 MG/24 HR TDSY TD SCH (08:14)
[2021-06-03] MEDS: busPIRone 5 MG TAB PO SCH ×3 (08:17→20:21)
[2021-06-03] MEDS: DOXYCYCLINE HYCLATE 100 MG CAP PO SCH ×2 (08:17→20:21)
[2021-06-03] MEDS: lisinopril 5 MG TAB PO SCH (08:17)
[2021-06-03] MEDS: THIAMINE HCL 100 MG TAB PO SCH (08:18)
[2021-06-03] MEDS: CYANOCOBALAMIN (B-12) 500 MCG TABLET PO SCH (08:18)
[2021-06-03] MEDS: METOPROLOL SUCC 50MG EXT REL TAB PO SCH (08:18)
[2021-06-03] MEDS: VENLAFAXINE HCL XR 150 MG CAPXR PO SCH (08:18)
[2021-06-03] MEDS: ATORVASTATIN 40 MG TAB PO SCH (08:18)
[2021-06-03] MEDS: ARIPIprazole 1 MG/ML ORAL SOLN 150 ML BTL PO SCH (08:18)
[2021-06-03] MEDS: amLODIPine BESYLATE 5 MG TAB PO SCH (08:18)
[2021-06-03] MEDS: ASPIRIN 81 MG ECTAB PO SCH (08:18)
[2021-06-03] MEDS: FOLIC ACID 1 MG TAB PO SCH (08:18)
[2021-06-03] MEDS: MULTIVITAMIN TAB PO SCH (08:18)
[2021-06-03] MEDS: FUROSEMIDE 40 MG TAB PO SCH (08:19)
[2021-06-03] MEDS: BUPRENORPHINE/NALOXONE 8/2 MG TAB SL SCH ×2 (08:22→20:20)
[2021-06-03] MEDS: INSULIN GLARGINE SOLOSTAR 100 UNITS/ML 3 ML PEN SC SCH (08:33)
[2021-06-03] MEDS: MAGNESIUM OXIDE 400 MG TAB PO SCH (09:27)
--- NOTE | 2021-06-03 12:05 | Hospitalist Progress Note ---
Date of Service June 03, 2021 Assessment & Plan (1) Alcoholism: Plan: 55 yr male with H/O Uncontrolled DM II, HTN, HLD, alcohol abuse, alcohol withdrawal seizure, CAD s/p stent, chronic back pain, untreated CATALINO, tobacco use, neuropathy, CKD III presented to ER with complaint of increased leg swelling, drinking alcohol again. Alcohol Abuse: On admission, ETOH was 388 Being managed for withdrawal Seizure/fall precautions Continue Thiamine, folic acid Patient stated he has a good setup for outpatient rehab. He used to live in his RV but due to the weather, he currently lives at accommodations provided by his anglican. He stated they provide him meals too. He is able to attend meetings during the day and continue working on his [employer] and other appts Case management on board On librium taper B/L Lower extremity edema Suspected Leg Cellulitis H/O Chronic LE edema, Chronic Venous stasis ? Compliance of diuretic use CXR: No acute changes Venous Doppler: No DVT within the right or left lower extremity Continue Lasix 40mg daily Was treated with doxycycline Lactic acidosis Likely due to Metformin use Resolved with IV fluids Hold Metformin for now Resolved Hypertension: Noncompliant with medications Continue metoprolol succinate, Amlodipine Also started on lisinopril 5mg daily IV Hydralazine PRN Adjust meds as needed CAD: S/p stent H/O Cardiomyopathy Echo in 2020 EF 55% Chronic Troponin elevation EKG showed no signs of acute ischaemia Continue aspirin, metoprolol, statin DM II A1c: 9.3 on 05/17/2021 Uncontrolled due to noncompliance with medications Hold home medications Continue Insulin Monitor BGs CKD stage III: Baseline ~1.0 Monitor renal functions Avoid nephrotoxic agents when possible Chronic pancytopenia: Likely due to chronic alcoholism Monitor CBC Chronic pain: On Suboxone Tobacco use disorder: -Smoking cessation encouraged -Nicotine patch CATALINO: H/O noncompliance with CPAP DVT Px: Lovenox SQ Code Status Full Code possible dc in 24-48h Admission and Anticipated Discharge Date Admission Date: May 28, 2021 Subjective Patient seen and examined. Patient is feeling better today Was awake, alert, eating Patient denies any headache, dizziness Denied any chest pain, cough, shortness of breath Denies any nausea, vomiting, abdominal pain, diarrhea constipation Denies hallucinations Reports tremor is improved Physical Exam Constitutional: + well hydrated and + obese; no acute distress Eyes: PERRL, conjunctivae normal, anicteric sclerae ENMT: external ear and nose normal, oropharynx normal Respiratory: normal respiratory effort, lungs clear to auscultation Cardiovascular: Rate/Rhythm: regular rate and regular rhythm S1 S2 Gastrointestinal (Abdomen): normal bowel sounds, soft, nontender, no hepatosplenomegaly Musculoskeletal: no cyanosis or clubbing, extremities motor strength 5/5 Neurologic: PERRL, EOMI, accommodation nl, no face palsy, no dysarthria Mild tremors in outstretched hands Psychiatric: A+Ox3, euthymic affect Results & Data Results & Data ([facility]) Vital Signs (Past 12 Hours) Vital Signs Temp Pulse Pulse Resp BP Pulse Ox 06/03/21 11:42 36.5 C 54 L 18 151/91 H 98 06/03/21 11:32 65 06/03/21 07:50 36.4 C L 65 14 141/78 H 93 06/03/21 04:18 36.4 C L 67 18 161/97 H 98 Laboratory Results Abnormal lab results 06/02/21 06/02/21 06/03/21 Range/Units 16:07 20:52 06:00 BUN 37 H (6-23) mg/dl BUN/Creatinine Ratio 26.6 H (10-20) Glucose 155 H (70-99(Fasting)) mg/dl POC Glucose 106 H 175 H (70-99) mg/dl Albumin 2.8 L (3.4-5.0) gm/dl Albumin/Globulin Ratio 0.8 L (0.9-2) 06/03/21 06/03/21 Range/Units 07:37 11:15 BUN (6-23) mg/dl BUN/Creatinine Ratio (10-20) Glucose (70-99(Fasting)) mg/dl POC Glucose 199 H 284 H (70-99) mg/dl Albumin (3.4-5.0) gm/dl Albumin/Globulin Ratio (0.9-2)
[2021-06-03] MEDS: ENOXAPARIN INJ 40 MG/0.4 ML SYR SQ SCH (20:20)
[2021-06-03] MEDS: MIRTAZAPINE TAB 15 MG TAB PO SCH (20:21)
[2021-06-03] MEDS: traZODone HCL 50 MG TAB PO SCH (20:21)
[2021-06-04] MEDS: INSULIN ASPART PER UNIT SC SCH ×4 (07:42→21:03)
[2021-06-04 07:53] LABS: Anion Gap 6 (3-11); BUN Creatinine Ratio 24.3 (10-20); Blood Urea Nitrogen 42 mg/dl (6-23); Calcium 8.4 mg/dl (8.5-10.1); Carbon Dioxide 29 mmol/L (21-32); Chloride 99 mmol/L (98-107); Creatinine Clr Calc Pharmacy 58.9 ml/min; Est GFR (Non-African American) 43.2 ml/min; Glucose 287 mg/dl (70-99(Fasting)); Magnesium 1.7 mg/dl (1.7-2.4); Phosphorus 4.1 mg/dl (2.5-4.9); Sodium 134 mmol/L (136-145)
[2021-06-04] MEDS: BUPRENORPHINE/NALOXONE 8/2 MG TAB SL SCH ×2 (09:12→21:07)
[2021-06-04] MEDS: NICOTINE 21 MG/24 HR TDSY TD SCH (09:12)
[2021-06-04] MEDS: VENLAFAXINE HCL XR 150 MG CAPXR PO SCH (09:12)
[2021-06-04] MEDS: ARIPIprazole 1 MG/ML ORAL SOLN 150 ML BTL PO SCH (09:12)
[2021-06-04] MEDS: ASPIRIN 81 MG ECTAB PO SCH (09:13)
[2021-06-04] MEDS: THIAMINE HCL 100 MG TAB PO SCH (09:13)
[2021-06-04] MEDS: CYANOCOBALAMIN (B-12) 500 MCG TABLET PO SCH (09:13)
[2021-06-04] MEDS: ATORVASTATIN 40 MG TAB PO SCH (09:13)
[2021-06-04] MEDS: amLODIPine BESYLATE 5 MG TAB PO SCH (09:13)
[2021-06-04] MEDS: busPIRone 5 MG TAB PO SCH ×3 (09:13→20:55)
[2021-06-04] MEDS: FOLIC ACID 1 MG TAB PO SCH (09:13)
[2021-06-04] MEDS: MULTIVITAMIN TAB PO SCH (09:13)
[2021-06-04] MEDS: METOPROLOL SUCC 50MG EXT REL TAB PO SCH (09:13)
[2021-06-04] MEDS: INSULIN GLARGINE SOLOSTAR 100 UNITS/ML 3 ML PEN SC SCH (09:42)
--- NOTE | 2021-06-04 10:11 | Hospitalist Progress Note ---
Date of Service June 04, 2021 Assessment & Plan (1) Alcoholism: Plan: 55 yr male with H/O Uncontrolled DM II, HTN, HLD, alcohol abuse, alcohol withdrawal seizure, CAD s/p stent, chronic back pain, untreated CATALINO, tobacco use, neuropathy, CKD III presented to ER with complaint of increased leg swelling, drinking alcohol again. Alcohol Abuse: On admission, ETOH was 388 Being managed for withdrawal Seizure/fall precautions Continue Thiamine, folic acid Patient stated he has a good setup for outpatient rehab. He used to live in his RV but due to the weather, he currently lives at accommodations provided by his rastafarian. He stated they provide him meals too. He is able to attend meetings during the day and continue working on his [employer] and other appts Case management on board On librium taper Patient has done very well in the past 48h B/L Lower extremity edema Suspected Leg Cellulitis H/O Chronic LE edema, Chronic Venous stasis ? Compliance of diuretic use CXR: No acute changes Venous Doppler: No DVT within the right or left lower extremity Was treated with doxycycline On lasix 40mg daily. Will hold today's dose due to bump in Cr and monitor renal function Lactic acidosis Likely due to Metformin use Resolved with IV fluids Hold Metformin for now Resolved Hypertension: Noncompliant with medications Continue metoprolol succinate, Amlodipine Was started on lisinopril 5mg daily inpatient. Hold today's dose due to ONDINA on CKD Hold IV Hydralazine PRN Adjust meds as needed CAD: S/p stent H/O Cardiomyopathy Echo in 2020 EF 55% Chronic Troponin elevation EKG showed no signs of acute ischaemia Continue aspirin, metoprolol, statin DM II A1c: 9.3 on 05/17/2021 Uncontrolled due to noncompliance with medications Hold home medications Continue Insulin Monitor BGs CKD stage III: Baseline ~1.0 Monitor renal functions Cr is 1.73 today. Mild ONDINA on CKD. Will hold lasix and lisinopril today Avoid nephrotoxic agents when possible Chronic pancytopenia: Likely due to chronic alcoholism Monitor CBC Chronic pain: On Suboxone Tobacco use disorder: -Smoking cessation encouraged -Nicotine patch CATALINO: H/O noncompliance with CPAP DVT Px: Lovenox SQ Code Status Full Code possible dc tomorrow Admission and Anticipated Discharge Date Admission Date: May 28, 2021 Subjective Patient seen and examined. Patient denies any headache, dizziness Denied any chest pain, cough, shortness of breath Denies any nausea, vomiting, abdominal pain, diarrhea constipation Denies hallucinations No tremors today Physical Exam Constitutional: + well hydrated and + obese; no acute distress Eyes: PERRL, conjunctivae normal, anicteric sclerae ENMT: external ear and nose normal, oropharynx normal Respiratory: normal respiratory effort, lungs clear to auscultation Cardiovascular: Rate/Rhythm: regular rate and regular rhythm S1 S2 Gastrointestinal (Abdomen): normal bowel sounds, soft, nontender, no hepatosplenomegaly Musculoskeletal: no cyanosis or clubbing, extremities motor strength 5/5 Neurologic: PERRL, EOMI, accommodation nl, no face palsy, no dysarthria Psychiatric: A+Ox3, euthymic affect Results & Data Results & Data ([facility]) Vital Signs (Past 12 Hours) Vital Signs Temp Pulse Pulse Resp BP Pulse Ox 06/04/21 07:40 36.4 C L 61 18 162/89 H 95 06/04/21 07:33 69 06/04/21 03:20 37.0 C 110 H 19 120/77 94 06/03/21 23:54 82 06/03/21 23:23 36.9 C 82 19 120/76 94 Laboratory Results Abnormal lab results 06/03/21 06/03/21 06/03/21 Range/Units 11:15 16:26 20:08 Sodium (136-145) mmol/L BUN (6-23) mg/dl Creatinine (0.6-1.4) mg/dl BUN/Creatinine Ratio (10-20) Glucose (70-99(Fasting)) mg/dl POC Glucose 284 H 160 H 229 H (70-99) mg/dl Calcium (8.5-10.1) mg/dl 06/04/21 06/04/21 Range/Units 05:31 07:27 Sodium 134 L (136-145) mmol/L BUN 42 H (6-23) mg/dl Creatinine 1.73 H D (0.6-1.4) mg/dl BUN/Creatinine Ratio 24.3 H (10-20) Glucose 287 H (70-99(Fasting)) mg/dl POC Glucose 281 H (70-99) mg/dl Calcium 8.4 L (8.5-10.1) mg/dl
[2021-06-04] MEDS: MAGNESIUM OXIDE 400 MG TAB PO SCH (10:12)
[2021-06-04] MEDS: chlordiazePOXIDE HCl 5 MG CAP PO SCH (18:00)
[2021-06-04] MEDS: traZODone HCL 50 MG TAB PO SCH (20:54)
[2021-06-04] MEDS: MIRTAZAPINE TAB 15 MG TAB PO SCH (20:55)
[2021-06-04] MEDS: ENOXAPARIN INJ 40 MG/0.4 ML SYR SQ SCH (20:56)
[2021-06-05] MEDS: chlordiazePOXIDE HCl 5 MG CAP PO SCH (05:53)
[2021-06-05 06:50] LABS: BUN Creatinine Ratio 30.9 (10-20); Calcium 8.8 mg/dl (8.5-10.1); Creatinine Clr Calc Pharmacy 61.5 ml/min; Est GFR (Non-African American) 45.7 ml/min; Magnesium 1.9 mg/dl (1.7-2.4); Potassium 5.2 mmol/L (3.5-5.1)
[2021-06-05] MEDS ORDERED: FUROSEMIDE 20 MG TAB PO ONE ×2 (08:03→15:30)
[2021-06-05] MEDS: VENLAFAXINE HCL XR 150 MG CAPXR PO SCH (08:19)
[2021-06-05] MEDS: INSULIN ASPART PER UNIT SC SCH ×2 (08:19→11:54)
[2021-06-05] MEDS: busPIRone 5 MG TAB PO SCH ×2 (08:19→13:21)
[2021-06-05] MEDS: CYANOCOBALAMIN (B-12) 500 MCG TABLET PO SCH (08:20)
[2021-06-05] MEDS: ATORVASTATIN 40 MG TAB PO SCH (08:20)
[2021-06-05] MEDS: ASPIRIN 81 MG ECTAB PO SCH (08:20)
[2021-06-05] MEDS: FOLIC ACID 1 MG TAB PO SCH (08:20)
[2021-06-05] MEDS: MULTIVITAMIN TAB PO SCH (08:20)
[2021-06-05] MEDS: INSULIN GLARGINE SOLOSTAR 100 UNITS/ML 3 ML PEN SC SCH (08:21)
[2021-06-05] MEDS: MAGNESIUM OXIDE 400 MG TAB PO SCH (08:21)
[2021-06-05] MEDS: THIAMINE HCL 100 MG TAB PO SCH (08:22)
[2021-06-05] MEDS: METOPROLOL SUCC 50MG EXT REL TAB PO SCH (08:22)
[2021-06-05] MEDS: NICOTINE 21 MG/24 HR TDSY TD SCH (08:23)
[2021-06-05] MEDS: amLODIPine BESYLATE 5 MG TAB PO SCH (08:23)
[2021-06-05] MEDS: ARIPIprazole 1 MG/ML ORAL SOLN 150 ML BTL PO SCH (08:24)
[2021-06-05] MEDS: BUPRENORPHINE/NALOXONE 8/2 MG TAB SL SCH (08:24)
--- NOTE | 2021-06-05 15:56 | Discharge Summary ---
Date of Service June 05, 2021 Admission HPI Per Admitting Provider Patient is 55-year-old male with PMH uncontrolled DM II, HTN, HLD, alcohol abuse, alcohol withdrawal seizure, CAD s/p stent, chronic back pain, untreated CATALINO, tobacco use, neuropathy, CKD III presented to ER with complaint of increased leg swelling, drinking alcohol again. Reports bilateral lower extremity edema and aching of legs. Feels somewhat short of breath with exertion. Denies chest pain. Outpatient notes reviewed. 05/19/2021 appointment with cardiology and at that time patient has not been taking any of his medications he was seen for lower extremity edema. His amlodipine was reduced from 10 mg to 5 mg daily and metoprolol increased from 50 mg to 100 mg daily. Patient is following with outpatient addiction coordinator. Reported patient had alcohol rehab last month. Reports is homeless and has been sitting in his car mostly, sometimes sleeping at [facility]. Denies fever/chills, diaphoresis, N/V/D/C, HORVATH, syncope, vision changes, neck pain, palpitations, cough, sore throat, choking, otalgia, rhinorrhea, abdominal pain, paresthesias, weakness, rashes, urinary symptoms. Admission Exam Per Admitting Provider Physical Exam: Lying in bed with a acute anxiety Constitutional: well developed, well nourished, + ill appearing and + obese ENMT: external ear and nose normal, oropharynx normal Neck: trachea midline, no thyromegaly Respiratory: no respiratory distress Auscultation: + diminished lung sounds; no crackles and no wheezes Cardiovascular: Rate/Rhythm: regular rate and regular rhythm; not tachycardic Heart Sounds: normal S1 and normal S2; no murmur Extremities: + edema (1+ edema bilaterally with bilateral cellulitis) Gastrointestinal (Abdomen): Inspection/Auscultation: + abdomen distended and normal bowel sounds Percussion/Palpation: abdomen soft; abdomen nontender Musculoskeletal: No acute arthritis in any joint Neurologic: Alert, awake and oriented x3. No focal sensory or no motor deficit appreciated Psychiatric: A+Ox3, euthymic affect Principal Diagnosis Alcohol withdrawal Venous stasis dermatitis Hypertension Discharge Exam Constitutional + well hydrated and + obese; no acute distress Eyes PERRL, conjunctivae normal, anicteric sclerae ENMT external ear and nose normal, oropharynx normal Respiratory normal respiratory effort, lungs clear to auscultation Cardiovascular Rate/Rhythm: regular rate and regular rhythm S1 S2 Gastrointestinal (Abdomen) normal bowel sounds, soft, nontender, no hepatosplenomegaly Musculoskeletal no cyanosis or clubbing, extremities motor strength 5/5 Trace pedal edema Neurologic PERRL, EOMI, accommodation nl, no face palsy, no dysarthria Psychiatric A+Ox3, euthymic affect Discharge Data Allergies Allergy/AdvReac Type Severity Reaction Status Date / Time No Known Allergies Allergy Verified 05/28/21 20:27 Consultations 05/28/21 20:06 ED Decision to Admit Stat 06/01/21 15:45 Consult Psychiatry Routine Ordered Studies 05/28/21 18:40 CT head/brain wo con Stat No acute intracranial hemorrhage, midline shift, intracranial mass, hydrocephalus, territorial ischemia or abnormal extra-axial collection. Mild involutional changes. Calcifications of the falx cerebri. Cerebral vascular calcifications. The calvarium is intact. Mastoid air cells are clear. There is severe near complete opacification of the left maxillary sinus with moderate mucoperiosteal thickening of the right maxillary sinus. Mild to moderate residual thickening of the ethmoid air cells. Leftward spurring and bowing of the nasal septum. Unremarkable soft tissues and orbits. IMPRESSION: No acute intracranial abnormality. 05/28/21 20:44 US venous doppler LE BI Urgent There is normal compressibility, flow, and augmentation within the bilateral lower extremity deep venous systems. Subcutaneous edema. IMPRESSION: No DVT within the right or left lower extremity. Hospital Course (1) Alcoholism: 55 yr male with H/O Uncontrolled DM II, HTN, HLD, alcohol abuse, alcohol withdrawal seizure, CAD s/p stent, chronic back pain, untreated CATALINO, tobacco use, neuropathy, CKD III presented to ER with complaint of increased leg swelling, drinking alcohol again. Alcohol Abuse: On admission, ETOH was 388 Was managed for alcohol withdrawal Continue Thiamine, folic acid Patient stated he has a good setup for outpatient rehab. He used to live in his RV but due to the weather, he currently lives at accommodations provided by his congregational. He stated they provide him meals too. He is able to attend meetings during the day. Declined inpatient rehab B/L Lower extremity edema Suspected Leg Cellulitis H/O Chronic LE edema, Chronic Venous stasis ? Compliance of diuretic use CXR: No acute changes Venous Doppler: No DVT within the right or left lower extremity Was treated with doxycycline Yesterday's dose was held due to bump in Cr. Improved today. K mildly elevated today at 5.2. Home lasix dose of 40mg resumed Patient to get BMP in 2 days and follow up results with PCP Educated on low K diet Reports he has all his home meds except for lasix which will soon run out. Script sent for lasix per request Lactic acidosis Likely due to Metformin use Resolved with IV fluids Hypertension: Noncompliant with medications Continue metoprolol succinate, Amlodipine CAD: S/p stent H/O Cardiomyopathy Echo in 2020 EF 55% Chronic Troponin elevation EKG showed no signs of acute ischaemia Continue aspirin, metoprolol, statin DM II A1c: 9.3 on 05/17/2021 Uncontrolled due to noncompliance with medications On metformin and glipizide Educated on med adherence and DM management Follow up with PCP CKD stage III: Monitor renal functions Cr is 1.65 today Avoid nephrotoxic agents when possible Chronic pancytopenia: Likely due to chronic alcoholism Chronic pain: On Suboxone Tobacco use disorder: -Smoking cessation encouraged CATALINO: H/O noncompliance with CPAP Total Time Total Time Spent Total Time Spent (In Minutes): 50 Total Time Includes: Examination of the Patient, Discharge Planning and Medication Reconciliation Discharge Plan Discharge Items Patient Disposition: Home - Self-Care Reason For Visit: BOTH LEGS SWOLLEN, RED Discharge Diagnosis: Alcohol withdrawal Venous stasis dermatitis Hypertension Activity: Resume your previous activity Non-emergency contact: Primary Care Provider Call non-emergency contact if: you have any medication questions Follow-up/Referrals: Charity Kasper MD [Primary Care Provider] - Diet: Carb Consistent or DM2, Heart Healthy and Low Potassium (2gm) Ambulatory Orders: Basic Metabolic Panel (Routine) Timeframe: [id number] Location: Determined by Patient Ordered By: Janie Terrazas Attending Provider Instructions: Mr Dillard. You came to the hospital due to leg swelling and alcohol use. You were managed for alcohol withdrawal. You also got antibiotics for cellulitis. You are being discharged from the hospital. It is very important that you avoid alcohol use as we discussed and utilize alcohol rehab resources provided. Please do the blood work called Basic metabolic panel on Monday and follow up result with your PCP Please adhere to low potassium diet. Please quit alcohol use in any form. Please ensure follow up with your Primary Doctor. It was a pleasure taking care of you. Pending Studies at Discharge: No Stand-Alone Forms: My [facility], Smoking Cessation Medications and DC Order Prescriptions: Continued atorvastatin 80 mg tablet 80 mg PO DAILY RF: 0 trazodone 50 mg tablet 75 mg PO HS RF: 0 metoprolol succinate 50 mg tablet extended release 24 hr 100 mg PO QAM RF: 0 glipizide 10 mg Tablet 10 mg PO BID RF: 0 venlafaxine 150 mg capsule,extended release 24hr 150 mg PO DAILY RF: 0 cyanocobalamin (vitamin B-12) 1,000 mcg tablet 1,000 mcg PO DAILY RF: 0 thiamine HCl (vitamin B1) [Vitamin B-1] 100 mg Tablet 100 mg PO DAILY RF: 0 hydroxyzine HCl 50 mg Tablet 50 mg PO QID PRN (Reason: Anxiety) RF: 0 amlodipine 5 mg tablet 5 mg PO DAILY RF: 0 aspirin 81 mg Tablet,Delayed Release (Dr/Ec) 81 mg PO DAILY RF: 0 magnesium oxide 400 mg (241.3 mg magnesium) tablet 100 mg PO DAILY RF: 0 buspirone 10 mg tablet 10 mg PO TID RF: 0 nitroglycerin [Nitrostat] 0.4 mg Tablet, Sublingual 0.4 mg sublingual DIRECTED PRN (Reason: Chest Pain) RF: 0 folic acid 1 mg tablet 1 mg PO DAILY RF: 0 mirtazapine 15 mg tablet 15 mg PO HS RF: 0 metformin 500 mg tablet extended release 24 hr 500 mg PO DIRECTED RF: 0 buprenorphine-naloxone 8-2 mg tablet, sublingual 1 tab SUBLINGUAL BID RF: 0 aripiprazole 2 mg tablet 2 mg PO DAILY RF: 0 Jardiance 10 mg tablet 10 mg PO QAM RF: 0 Trulicity 1.5 mg/0.5 mL Pen Injector 1.5 mg SUBCUT WE RF: 0 naloxone [Narcan] 4 mg/actuation spray,non-aerosol 1 spray INTRANASAL DAILY PRN (Reason: .OD) RF: 0 furosemide 40 mg tablet 40 mg PO DAILY Qty: 30 RF: 0 Discharge Orders: Discharge Order (Routine); Ordered 06/05/21 Ordered By: Janie Beltre Admission Data Admit Date/Time: 05/28/21 20:43 Attending Provider: Janie Beltre I. Admit Provider: Horace Yuen Primary Care Provider: Charity Kasper Other Providers: Mirza Moreno ; Joaquina Jason ; Linda Neff ; Elana Alves ; Juvenal Michaels ; Tico Bullock Other Interventions: Discharge Summary Assessment (RN) Last Done: 06/05/21 16:50
== END 2021-06-05 16:51 | disposition home or self-care (01) | DRG 602 ==
LOC: ED 18:20 → 2E 20:43 → SUATTDRO 20:43 → 2E 21:38

== ENCOUNTER 2021-06-21 04:04 | Inpatient (IN) ==
[2021-06-21] MEDS ORDERED: FUROSEMIDE 40 MG/4 ML VIAL IV STA (04:50)
[2021-06-21] MEDS ORDERED: BUPRENORPHINE/NALOXONE 8/2 MG TAB SL STA (04:52)
[2021-06-21 05:14] LABS: Basophils # (auto) 0.04 K/uL (0-0.2); Basophils % (auto) 0.7 %; Eosinophils # (auto) 0.14 K/uL (0-0.5); Eosinophils % (auto) 2.4 %; Hematocrit (blood only) 39.9 % (42-52); Hemoglobin 13.2 g/dL (14.0-18.0); Immature Granulocytes # (auto) 0.01 K/uL (0.00-0.02); Immature Granulocytes % (auto) 0.2 %; Lymphocytes # (auto) 2.36 K/uL (1.2-3.4); Lymphocytes % (auto) 40.3 %; Mean Corpuscular Hemoglobin 31.4 pg (25-34); Mean Corpuscular Hgb Conc 33.1 g/dL (32-36); Mean Platelet Volume 9.7 fL (7.4-10.4); Monocytes # (auto) 0.51 K/uL (0.11-0.59); Monocytes % (auto) 8.7 %; Neutrophils % (auto) 47.7 %; Platelet Count 170 K/uL (130-400); RDW Coefficient of Variation 14.3 % (11.5-14.5); RDW Standard Deviation 48.7 fL (36.4-46.3); White Blood Count 5.86 K/uL (4.8-10.8)
[2021-06-21 05:28] LABS: Partial Thromboplastin Ratio 1.2; Partial Thromboplastin Time 31.7 Seconds (21.0-31.0); Prothrombin Time 10.9 Seconds (9.0-12.0)
[2021-06-21 05:47] LABS: Troponin I 0.09 ng/ml (0-0.04)
[2021-06-21 05:49] LABS: Albumin Globulin Ratio 0.9 (0.9-2); Albumin Level 2.9 gm/dl (3.4-5.0); BUN Creatinine Ratio 19.3 (10-20); Bilirubin,Total 0.3 mg/dl (0.2-1.0); Calcium 7.9 mg/dl (8.5-10.1); Est GFR (African American) 64.2 ml/min; Est GFR (Non-African American) 55.4 ml/min; Globulin 3.3 gm/dl (2.5-4.0); Magnesium 1.7 mg/dl (1.7-2.4); Potassium 4.1 mmol/L (3.5-5.1); Total Protein 6.2 gm/dl (6.0-8.3)
[2021-06-21 06:00] LABS: Influenza A virus by PCR Negative (Neg); Influenza B virus by PCR Negative (Neg); RSV by PCR Negative (Neg); SARS CoV2 RNA(COVID-19) InHosp NEGATIVE (Negative)
[2021-06-21] MEDS ORDERED: VENLAFAXINE HCL XR 150 MG CAPXR PO STA (06:26)
[2021-06-21] MEDS ORDERED: amLODIPine BESYLATE 5 MG TAB PO ONE (06:26)
[2021-06-21] MEDS ORDERED: METOPROLOL SUCC 50MG EXT REL TAB PO STA (06:26)
[2021-06-21] MEDS ORDERED: GABAPENTIN 1200MG ALCOHOL WITHDRAWAL LOAD PO STA (07:09)
[2021-06-21] MEDS ORDERED: ATIVAN IV ALCOHOL WITHDRAWL IV PRN (07:25)
[2021-06-21] MEDS ORDERED: POLYETHYLENE (MIRALAX) 17 GM PACK PO PRN (07:25)
[2021-06-21] MEDS ORDERED: NITROGLYCERIN SL 0.4 MG/TAB TAB SL PRN (07:25)
[2021-06-21] MEDS ORDERED: GABAPENTIN 600 MG TAB PO ONE (07:25)
[2021-06-21] MEDS ORDERED: MULTI-VITAMIN INFUSION 10 ML, THIAMINE HCL 100 MG, FOLIC ACID 1 MG in SODIUM CHLORIDE 0... IV ONE (07:25)
[2021-06-21 07:31] LABS: Appearance Urine Clear (Clear); Bacteria Urine Automated Negative (Negative); Bilirubin Urine Negative (Negative); Blood Urine 1+ (Negative); Color Urine Yellow; Glucose Urine UA Trace (Negative); Ketones Urine Negative (Negative); Leukocyte Esterase Urine Negative (Negative); Nitrite Urine Negative (Negative); Protein Urine 3+ (Negative); RBC Urine Automated 0-4 /hpf (0-4); Specific Gravity Urine 1.012 (1.000-1.030); Urobilinogen Urine Negative (Negative)
[2021-06-21] MEDS: LORazepam 2 MG/1 ML VIAL IV PRN ×4 (07:42→22:10)
--- NOTE | 2021-06-21 07:42 | Ultrasound Report ---
BILATERAL LOWER EXTREMITY VENOUS DOPPLER HISTORY: Bilateral leg swelling. COMPARISON STUDY: None. FINDINGS: There is normal compressibility, flow, and augmentation within the bilateral lower extremit y deep venous systems. IMPRESSION: No DVT within the right or left lower extremity. ACT 112: Negative or not required by law. Electronically signed by: Greg Goyal M.D. 06/21/2021 7:40 AM
--- NOTE | 2021-06-21 07:45 | Emergency Department Note ---
Impression & Plan Fluid retention in legs, Alcohol use disorder, Cardiomyopathy, HTN (hypertension) ED Provider Note CHIEF COMPLAINT: Leg swelling HISTORY OF PRESENT ILLNESS: This 56 yo male patient presents to the emergency department with complaints of increasing pain in the bilateral lower extremities with significant swelling. Patient has an extensive past medical history of cardiomyopathy, congestive heart failure, alcoholism, hypertension, homelessness and noncompliance. The patient states he has been taking his medications but has also been staying in the homeless correction. He is requesting his Suboxone as he was unable to take it today. Patient states he follows with [facility], Dr. Martinez. He denies any significant shortness of breath, chest discomfort, fevers, chills, abdominal pain or vomiting. He denies any recent falls or trauma. REVIEW OF SYSTEMS: A review of systems was performed with positives and pertinent negatives listed in the history of present illness. 10 systems were reviewed and are otherwise negative. ALLERGIES: see below MEDICATIONS: see below PMH: see below SOCIAL HISTORY: see below DDx: DVT, musculoskeletal, infection, joint effusion, trauma, lymphedema, idiopathic, CHF, as well as other pathologies. PHYSICAL EXAM: Vital signs reviewed. hypertensive and tachycardic. General: chronically ill appearing 56 yo male, in no significant distress. HEENT: No scleral icterus, PERRLA, neck supple. MMM. Cardiovascular: Regular rate and rhythm, no extra sounds. Pulmonary: Clear to auscultation bilaterally, normal work of breathing. Abdomen: Soft, obese, nontender, nondistended, positive bowel sounds. Musculoskeletal: Atraumatic, moderate peripheral edema with venous status changes. Neurologic: Patient awake alert and oriented x 3 Skin: Warm, dry, no rash. EMERGENCY DEPARTMENT COURSE/MDM: This pt was evaluated and appeared to be in no significant distress. Patient was noted to be hypertensive and tachycardic. Chest x-ray was performed and reveals no evidence of of congestive heart failure. US BLE are negative for DVT. Laboratory work was medicated with 40 mg of IV Lasix. Patient was also given his home doses of Suboxone and blood pressure medication. Laboratory work reveals an elevated troponin however it is well within range of his chronically elevated troponins. Patient's alcohol dependency is likely contributing to his hypertension and tachycardia. His case was discussed with the hospitalist service who will evaluate the patient for admission and further management. MONITORING: An order for cardiac monitoring was placed and the patient is noted to be in a NSR with PVCs at 105 beats per minute. RADIOLOGY: See below EKG: Sinus rhythm at 99 bpm with PVCs. QTC is 462. DISPOSITION: admit Past Med/Surg History Medical History (Updated 06/26/21 @ 11:37 by Bouchra George MD) Alcohol abuse Alcohol use disorder Alcohol use disorder, severe, dependence Alcohol withdrawal syndrome Bilateral edema of lower extremity Chronic anemia Diabetes mellitus type 2 with complications TONEY (dyspnea on exertion) Edema Elevated troponin HTN (hypertension) Mood disorder Neuropathy NSTEMI (non-ST elevated myocardial infarction) Obesity CATALINO (obstructive sleep apnea) CATALINO (obstructive sleep apnea) Proteinuria Smoking Tobacco use disorder Type 2 diabetes mellitus Surgical History History of cardiac catheterization 1 ELIESER to proximal OM by Dr. Guerrero on 01/01/19 History of lymph node biopsy Family History Other Diabetes Heart disease Hypertension Social History Smoking Status: Current every day smoker Tobacco Type: Cigarettes Years Smoked: 39; Cigarettes Per Day: 20; Second Hand Exposure: Yes; Hx Alcohol Use: Yes Alcohol type: hard liquor Alcohol type Comment: 1/2 gallon vodka a day Hx Substance Use: Yes Last Used Substance: Unknown Last Used Substance Other:: years Substance Use Type Other:: patient said "I've used it all" Preferred Language: Sinhala Communication Ability: Effective Continuous Washer Operator Required: No Beliefs That Will Affect Care: None marital status: Single Current Living Situation: Homeless Current Living Situation Comment: in car and various churches/shelters current occupational status: unemployed How many Children do You have: 2 Feels Safe at Home: Yes Safety Concerns: Feels Safe At This Time Assistive Devices: None Allergies Allergies Allergy/AdvReac Type Severity Reaction Status Date / Time No Known Allergies Allergy Verified 06/21/21 07:24 Home Meds Home Medications Medication Instructions Recorded Confirmed amlodipine 5 mg tablet 5 mg PO DAILY 05/28/21 06/21/21 aripiprazole 2 mg tablet 2 mg PO DAILY 05/28/21 06/21/21 aspirin 81 mg tablet,delayed 81 mg PO DAILY 05/28/21 06/21/21 release atorvastatin 80 mg tablet 80 mg PO DAILY 05/28/21 06/21/21 buprenorphine 8 mg-naloxone 2 mg 1 tab SUBLINGUAL BID 05/28/21 06/21/21 sublingual tablet buspirone 10 mg tablet 10 mg PO TID 05/28/21 06/21/21 cyanocobalamin (vitamin B-12) 1,000 mcg PO DAILY 05/28/21 06/21/21 1,000 mcg tablet dulaglutide 1.5 mg/0.5 mL 1.5 mg SUBCUT WE 05/28/21 06/21/21 subcutaneous pen injector (Trulicity) empagliflozin 10 mg tablet 10 mg PO QAM 05/28/21 06/21/21 (Jardiance) folic acid 1 mg tablet 1 mg PO DAILY 05/28/21 06/21/21 glipizide 10 mg tablet 10 mg PO BID 05/28/21 06/21/21 hydroxyzine HCl 50 mg tablet 50 mg PO QID PRN 05/28/21 06/21/21 magnesium oxide 400 mg (241.3 mg 100 mg PO DAILY 05/28/21 06/21/21 magnesium) tablet metformin 500 mg tablet,extended 500 mg PO DIRECTED 05/28/21 06/21/21 release 24 hr metoprolol succinate 50 mg 100 mg PO QAM 05/28/21 06/21/21 tablet,extended release 24 hr mirtazapine 15 mg tablet 15 mg PO HS 05/28/21 06/21/21 naloxone 4 mg/actuation nasal 1 spray INTRANASAL DAILY PRN 05/28/21 06/21/21 spray (Narcan) nitroglycerin 0.4 mg sublingual 0.4 mg SUBLINGUAL DIRECTED PRN 05/28/21 06/21/21 tablet (Nitrostat) thiamine HCl (vitamin B1) 100 mg 100 mg PO DAILY 05/28/21 06/21/21 tablet (Vitamin B-1) trazodone 50 mg tablet 75 mg PO HS 05/28/21 06/21/21 venlafaxine 150 mg 150 mg PO DAILY 05/28/21 06/21/21 capsule,extended release 24 hr losartan 50 mg tablet 50 mg PO DAILY 06/21/21 06/21/21 Previous Rx's Medication Instructions Recorded furosemide 40 mg tablet 40 mg PO DAILY #30 tab 06/05/21 Results & Data (ED) Vital Signs Vital Signs - 24 hr 06/21/21 03:55 06/21/21 04:16 06/21/21 05:02 Temperature Temperature Source Pulse Rate Pulse Rate [Apical] 125 H Respiratory Rate 14 Blood Pressure Blood Pressure [Right Arm] 202/116 H Blood Pressure Mean Blood Pressure Mean [Right Arm] 144 Pulse Oximetry 97 91 Oxygen Delivery Method Room Air Room Air Sepsis Recent Fever Within 48 Hours No Sepsis New/Unexplained Change in Mental Status No Sepsis Action Taken by Nursing No Action Required 06/21/21 05:03 06/21/21 05:58 06/21/21 06:30 Temperature Temperature Source Pulse Rate 105 H Pulse Rate [Apical] 104 H 101 H Respiratory Rate 12 14 14 Blood Pressure 159/110 H Blood Pressure [Right Arm] 167/99 H 178/102 H Blood Pressure Mean 126 Blood Pressure Mean [Right Arm] 121 127 Pulse Oximetry 91 93 92 Oxygen Delivery Method Room Air Room Air Room Air Sepsis Recent Fever Within 48 Hours Sepsis New/Unexplained Change in Mental Status Sepsis Action Taken by Nursing 06/21/21 07:00 Temperature 36.7 C Temperature Source Oral Pulse Rate Pulse Rate [Apical] Respiratory Rate Blood Pressure Blood Pressure [Right Arm] Blood Pressure Mean Blood Pressure Mean [Right Arm] Pulse Oximetry Oxygen Delivery Method Sepsis Recent Fever Within 48 Hours Sepsis New/Unexplained Change in Mental Status Sepsis Action Taken by Detention Medications Current Medication List: was personally reviewed by me Laboratory Data Attestation: I reviewed the patient's lab results. Result diagrams: 06/24/21 05:57 06/26/21 07:09 Lab Results 06/21/21 06/21/21 06/21/21 Range/Units 04:08 04:08 04:08 WBC 5.86 (4.8-10.8) K/uL RBC 4.20 L (4.7-6.1) M/uL Hgb 13.2 L (14.0-18.0) g/dL Hct 39.9 L (42-52) % MCV 95.0 (80-100) fL MCH 31.4 (25-34) pg MCHC 33.1 (32-36) g/dL RDW Std Deviation 48.7 H (36.4-46.3) fL RDW Coeff of Alberto 14.3 (11.5-14.5) % Plt Count 170 (130-400) K/uL MPV 9.7 (7.4-10.4) fL Immature Gran % (Auto) 0.2 % Neut % (Auto) 47.7 % Lymph % (Auto) 40.3 % [place] % (Auto) 8.7 % Eos % (Auto) 2.4 % Baso % (Auto) 0.7 % Neut # (Auto) 2.80 (1.4-6.5) K/uL Lymph # (Auto) 2.36 (1.2-3.4) K/uL [place] # (Auto) 0.51 (0.11-0.59) K/uL Eos # (Auto) 0.14 (0-0.5) K/uL Baso # (Auto) 0.04 (0-0.2) K/uL Immature Gran # (Auto) 0.01 (0.00-0.02) K/uL PT 10.9 (9.0-12.0) Seconds INR 1.0 (0.9-1.1) APTT 31.7 H (21.0-31.0) Seconds PTT Ratio 1.2 Sodium (136-145) mmol/L Potassium (3.5-5.1) mmol/L Chloride (98-107) mmol/L Carbon Dioxide (21-32) mmol/L Anion Gap (3-11) BUN (6-23) mg/dl Creatinine (0.6-1.4) mg/dl Est Cr Clr Drug Dosing ml/min Est GFR ( Amer) ml/min Est GFR (Non-Af Amer) ml/min BUN/Creatinine Ratio (10-20) Glucose (70-99(Fasting)) mg/dl Calcium (8.5-10.1) mg/dl Magnesium (1.7-2.4) mg/dl Total Bilirubin (0.2-1.0) mg/dl AST (13-39) U/L ALT (7-52) U/L Alkaline Phosphatase (34-104) U/L Troponin I (0-0.04) ng/ml Total Protein (6.0-8.3) gm/dl Albumin (3.4-5.0) gm/dl Globulin (2.5-4.0) gm/dl Albumin/Globulin Ratio (0.9-2) Urine Color Urine Appearance (Clear) Urine pH (4.5-7.5) Ur Specific [place] (1.000-1.030) Urine Protein (Negative) Urine Glucose (UA) (Negative) Urine Ketones (Negative) Urine Blood (Negative) Urine Nitrite (Negative) Urine Bilirubin (Negative) Urine Urobilinogen (Negative) Ur Leukocyte Esterase (Negative) Urine WBC (Auto) (0-5) /hpf Urine RBC (Auto) (0-4) /hpf U Hyaline Cast (Auto) (0-5) /lpf U Epithel Cells (Auto) (0-5) /lpf Urine Bacteria (Auto) (Negative) Ethyl Alcohol mg/dL (<10.0) mg/dl SARS-CoV-2 (PCR) (Negative) Hepatitis C Ab (EIA) NON-REACTIVE (NON-REACTIVE) Hep C Ab Signal/Cutoff 0.33 (<1.00) Influenza Type A (PCR) (Neg) Influenza Type B (PCR) (Neg) RSV (RT-PCR) (Neg) 06/21/21 06/21/21 06/21/21 Range/Units 05:10 05:18 06:24 WBC (4.8-10.8) K/uL RBC (4.7-6.1) M/uL Hgb (14.0-18.0) g/dL Hct (42-52) % MCV (80-100) fL MCH (25-34) pg MCHC (32-36) g/dL RDW Std Deviation (36.4-46.3) fL RDW Coeff of Alberto (11.5-14.5) % Plt Count (130-400) K/uL MPV (7.4-10.4) fL Immature Gran % (Auto) % Neut % (Auto) % Lymph % (Auto) % [place] % (Auto) % Eos % (Auto) % Baso % (Auto) % Neut # (Auto) (1.4-6.5) K/uL Lymph # (Auto) (1.2-3.4) K/uL [place] # (Auto) (0.11-0.59) K/uL Eos # (Auto) (0-0.5) K/uL Baso # (Auto) (0-0.2) K/uL Immature Gran # (Auto) (0.00-0.02) K/uL PT (9.0-12.0) Seconds INR (0.9-1.1) APTT (21.0-31.0) Seconds PTT Ratio Sodium 144 (136-145) mmol/L Potassium 4.1 (3.5-5.1) mmol/L Chloride 108 H (98-107) mmol/L Carbon Dioxide 22 (21-32) mmol/L Anion Gap 14 H (3-11) BUN 27 H (6-23) mg/dl Creatinine 1.40 (0.6-1.4) mg/dl Est Cr Clr Drug Dosing 73.0 ml/min Est GFR ( Amer) 64.2 ml/min Est GFR (Non-Af Amer) 55.4 ml/min BUN/Creatinine Ratio 19.3 (10-20) Glucose 182 H (70-99(Fasting)) mg/dl Calcium 7.9 L (8.5-10.1) mg/dl Magnesium 1.7 (1.7-2.4) mg/dl Total Bilirubin 0.3 (0.2-1.0) mg/dl AST 34 (13-39) U/L ALT 21 (7-52) U/L Alkaline Phosphatase 79 (34-104) U/L Troponin I 0.09 H* (0-0.04) ng/ml Total Protein 6.2 (6.0-8.3) gm/dl Albumin 2.9 L (3.4-5.0) gm/dl Globulin 3.3 (2.5-4.0) gm/dl Albumin/Globulin Ratio 0.9 (0.9-2) Urine Color Urine Appearance (Clear) Urine pH (4.5-7.5) Ur Specific [place] (1.000-1.030) Urine Protein (Negative) Urine Glucose (UA) (Negative) Urine Ketones (Negative) Urine Blood (Negative) Urine Nitrite (Negative) Urine Bilirubin (Negative) Urine Urobilinogen (Negative) Ur Leukocyte Esterase (Negative) Urine WBC (Auto) (0-5) /hpf Urine RBC (Auto) (0-4) /hpf U Hyaline Cast (Auto) (0-5) /lpf U Epithel Cells (Auto) (0-5) /lpf Urine Bacteria (Auto) (Negative) Ethyl Alcohol mg/dL 203.8 H (<10.0) mg/dl SARS-CoV-2 (PCR) NEGATIVE (Negative) Hepatitis C Ab (EIA) (NON-REACTIVE) Hep C Ab Signal/Cutoff (<1.00) Influenza Type A (PCR) Negative (Neg) Influenza Type B (PCR) Negative (Neg) RSV (RT-PCR) Negative (Neg) 06/21/21 Range/Units 07:06 WBC (4.8-10.8) K/uL RBC (4.7-6.1) M/uL Hgb (14.0-18.0) g/dL Hct (42-52) % MCV (80-100) fL MCH (25-34) pg MCHC (32-36) g/dL RDW Std Deviation (36.4-46.3) fL RDW Coeff of Alberto (11.5-14.5) % Plt Count (130-400) K/uL MPV (7.4-10.4) fL Immature Gran % (Auto) % Neut % (Auto) % Lymph % (Auto) % [place] % (Auto) % Eos % (Auto) % Baso % (Auto) % Neut # (Auto) (1.4-6.5) K/uL Lymph # (Auto) (1.2-3.4) K/uL [place] # (Auto) (0.11-0.59) K/uL Eos # (Auto) (0-0.5) K/uL Baso # (Auto) (0-0.2) K/uL Immature Gran # (Auto) (0.00-0.02) K/uL PT (9.0-12.0) Seconds INR (0.9-1.1) APTT (21.0-31.0) Seconds PTT Ratio Sodium (136-145) mmol/L Potassium (3.5-5.1) mmol/L Chloride (98-107) mmol/L Carbon Dioxide (21-32) mmol/L Anion Gap (3-11) BUN (6-23) mg/dl Creatinine (0.6-1.4) mg/dl Est Cr Clr Drug Dosing ml/min Est GFR ( Amer) ml/min Est GFR (Non-Af Amer) ml/min BUN/Creatinine Ratio (10-20) Glucose (70-99(Fasting)) mg/dl Calcium (8.5-10.1) mg/dl Magnesium (1.7-2.4) mg/dl Total Bilirubin (0.2-1.0) mg/dl AST (13-39) U/L ALT (7-52) U/L Alkaline Phosphatase (34-104) U/L Troponin I (0-0.04) ng/ml Total Protein (6.0-8.3) gm/dl Albumin (3.4-5.0) gm/dl Globulin (2.5-4.0) gm/dl Albumin/Globulin Ratio (0.9-2) Urine Color Yellow Urine Appearance Clear (Clear) Urine pH 5.0 (4.5-7.5) Ur Specific [place] 1.012 (1.000-1.030) Urine Protein 3+ H (Negative) Urine Glucose (UA) Trace H (Negative) Urine Ketones Negative (Negative) Urine Blood 1+ H (Negative) Urine Nitrite Negative (Negative) Urine Bilirubin Negative (Negative) Urine Urobilinogen Negative (Negative) Ur Leukocyte Esterase Negative (Negative) Urine WBC (Auto) 1-5 (0-5) /hpf Urine RBC (Auto) 0-4 (0-4) /hpf U Hyaline Cast (Auto) 1-5 (0-5) /lpf U Epithel Cells (Auto) 5-10 H (0-5) /lpf Urine Bacteria (Auto) Negative (Negative) Ethyl Alcohol mg/dL (<10.0) mg/dl SARS-CoV-2 (PCR) (Negative) Hepatitis C Ab (EIA) (NON-REACTIVE) Hep C Ab Signal/Cutoff (<1.00) Influenza Type A (PCR) (Neg) Influenza Type B (PCR) (Neg) RSV (RT-PCR) (Neg) Administered Medications Amlodipine Besylate (Amlodipine Besylate 5 Mg Tab) 5 mg PO DAILY LUCINDA Stop: 07/22/21 08:59 Last Admin: 06/26/21 08:08 Dose: 5 mg Documented by: [id number] Admin: 06/25/21 08:29 Dose: 5 mg Documented by: [id number] Admin: 06/24/21 09:03 Dose: 5 mg Documented by: [id number] Admin: 06/23/21 08:01 Dose: 5 mg Documented by: [id number] Admin: 06/22/21 09:15 Dose: 5 mg Documented by: [id number] Aripiprazole (Aripiprazole 1 Mg/Ml Oral Soln 150 Ml Btl) 2 mg PO DAILY LUCINDA Stop: 07/22/21 08:59 Last Admin: 06/26/21 07:59 Dose: 2 mg Documented by: [id number] Admin: 06/25/21 08:29 Dose: 2 mg Documented by: [id number] Admin: 06/24/21 09:04 Dose: 2 mg Documented by: [id number] Admin: 06/23/21 08:18 Dose: 2 mg Documented by: [id number] Admin: 06/22/21 09:13 Dose: 2 mg Documented by: [id number] Aspirin (Aspirin 81 Mg Ectab) 81 mg PO DAILY LUCINDA Stop: 07/22/21 08:59 Last Admin: 06/26/21 08:00 Dose: 81 mg Documented by: [id number] Admin: 06/25/21 08:29 Dose: 81 mg Documented by: [id number] Admin: 06/24/21 09:04 Dose: 81 mg Documented by: [id number] Admin: 06/23/21 08:00 Dose: 81 mg Documented by: [id number] Admin: 06/22/21 09:15 Dose: 81 mg Documented by: [id number] Atorvastatin Calcium (Atorvastatin 40 Mg Tab) 80 mg PO DAILY LUCINDA Stop: 07/22/21 08:59 Last Admin: 06/26/21 08:00 Dose: 80 mg Documented by: [id number] Admin: 06/25/21 08:29 Dose: 80 mg Documented by: [id number] Admin: 06/24/21 09:03 Dose: 80 mg Documented by: [id number] Admin: 06/23/21 08:02 Dose: 80 mg Documented by: [id number] Admin: 06/22/21 09:14 Dose: 80 mg Documented by: [id number] Buprenorphine/Naloxone (Buprenorphine/Naloxone 8/2 Mg Tab) 1 tab SL BID LUCINDA Stop: 07/21/21 20:59 Last Admin: 06/26/21 08:02 Dose: 1 tab Documented by: [id number] Admin: 06/25/21 22:06 Dose: 1 tab Documented by: [id number] Admin: 06/25/21 08:41 Dose: 1 tab Documented by: [id number] Admin: 06/24/21 22:13 Dose: 1 tab Documented by: [id number] Admin: 06/24/21 09:12 Dose: 1 tab Documented by: [id number] Admin: 06/23/21 20:53 Dose: 1 tab Documented by: [id number] Admin: 06/23/21 08:18 Dose: 1 tab Documented by: [id number] Admin: 06/22/21 21:02 Dose: 1 tab Documented by: [id number] Admin: 06/22/21 09:13 Dose: 1 tab Documented by: [id number] Admin: 06/21/21 20:45 Dose: 1 tab Documented by: [id number] Clonidine HCl (Clonidine Hcl 0.1 Mg Tab) 0.1 mg PO Q4H PRN PRN Reason: Hypertension Stop: 07/22/21 03:52 Last Admin: 06/25/21 22:55 Dose: 0.1 mg Documented by: [id number] Admin: 06/25/21 00:31 Dose: 0.1 mg Documented by: [id number] Admin: 06/22/21 04:09 Dose: 0.1 mg Documented by: [id number] Cyanocobalamin (Cyanocobalamin (B-12) 500 Mcg Tablet) 1,000 mcg PO DAILY LUCINDA Stop: 07/22/21 08:59 Last Admin: 06/26/21 07:59 Dose: 1,000 mcg Documented by: [id number] Admin: 06/25/21 08:29 Dose: 1,000 mcg Documented by: [id number] Admin: 06/24/21 09:04 Dose: 1,000 mcg Documented by: [id number] Admin: 06/23/21 08:02 Dose: 1,000 mcg Documented by: [id number] Admin: 06/22/21 09:15 Dose: 1,000 mcg Documented by: [id number] Enoxaparin Sodium (Enoxaparin Inj 40 Mg/0.4 Ml Syr) 40 mg SQ Q12H LUCINDA Stop: 07/21/21 07:24 Last Admin: 06/26/21 08:02 Dose: 40 mg Documented by: [id number] Admin: 06/25/21 22:09 Dose: 40 mg Documented by: [id number] Admin: 06/25/21 08:31 Dose: 40 mg Documented by: [id number] Admin: 06/24/21 22:45 Dose: 40 mg Documented by: [id number] Admin: 06/24/21 09:05 Dose: 40 mg Documented by: [id number] Admin: 06/23/21 20:43 Dose: 40 mg Documented by: [id number] Admin: 06/23/21 08:03 Dose: 40 mg Documented by: [id number] Admin: 06/22/21 20:55 Dose: 40 mg Documented by: [id number] Admin: 06/22/21 09:13 Dose: 40 mg Documented by: [id number] Admin: 06/21/21 20:34 Dose: 40 mg Documented by: [id number] Admin: 06/21/21 09:05 Dose: 40 mg Documented by: [id number] Furosemide (Furosemide 40 Mg Tab) 40 mg PO DAILY LUCINDA Stop: 07/24/21 08:59 Last Admin: 06/26/21 08:00 Dose: 40 mg Documented by: [id number] Admin: 06/25/21 08:30 Dose: 40 mg Documented by: [id number] Admin: 06/24/21 10:28 Dose: 40 mg Documented by: [id number] Folic Acid 1 mg/ Syringe 10 mls @ 5 mls/min IV QAM LUCINDA Stop: 07/21/21 08:59 Last Admin: 06/26/21 08:05 Dose: 5 mls/min Documented by: [id number] Admin: 06/25/21 08:31 Dose: 5 mls/min Documented by: [id number] Admin: 06/24/21 09:04 Dose: 5 mls/min Documented by: [id number] Admin: 06/23/21 08:06 Dose: 5 mls/min Documented by: [id number] Admin: 06/22/21 09:18 Dose: 5 mls/min Documented by: [id number] Admin: 06/21/21 09:07 Dose: 5 mls/min Documented by: [id number] Thiamine HCl 100 mg/ Syringe 10 mls @ 2 mls/min IV QAM LUCINDA Stop: 07/21/21 08:59 Last Admin: 06/26/21 08:05 Dose: 2 mls/min Documented by: [id number] Admin: 06/25/21 08:30 Dose: 2 mls/min Documented by: [id number] Admin: 06/24/21 09:05 Dose: 2 mls/min Documented by: [id number] Admin: 06/23/21 08:06 Dose: 2 mls/min Documented by: [id number] Admin: 06/22/21 09:18 Dose: 2 mls/min Documented by: [id number] Admin: 06/21/21 09:07 Dose: 2 mls/min Documented by: [id number] Insulin Aspart (Insulin Aspart Per Unit) 0 units SC ACHS LUCINDA Stop: 07/21/21 07:29 Last Admin: 06/26/21 08:06 Dose: 6 units Documented by: [id number] Cosigned by: [id number] Admin: 06/25/21 22:08 Dose: 14 units Documented by: [id number] Cosigned by: [id number] Admin: 06/25/21 18:21 Dose: 6 units Documented by: [id number] Cosigned by: [id number] Admin: 06/25/21 11:48 Dose: 7 units Documented by: [id number] Cosigned by: [id number] Admin: 06/25/21 08:32 Dose: 7 units Documented by: [id number] Cosigned by: [id number] Admin: 06/24/21 22:13 Dose: 1 units Documented by: [id number] Cosigned by: [id number] Admin: 06/24/21 17:50 Dose: Not Given Documented by: [id number] Admin: 06/24/21 12:28 Dose: 7 units Documented by: [id number] Cosigned by: [id number] Admin: 06/24/21 09:06 Dose: 2 units Documented by: [id number] Cosigned by: [id number] Admin: 06/23/21 20:45 Dose: Not Given Documented by: [id number] Admin: 06/23/21 17:18 Dose: Not Given Documented by: [id number] Cosigned by: [id number] Admin: 06/23/21 12:37 Dose: 6 units Documented by: [id number] Cosigned by: [id number] Admin: 06/23/21 07:59 Dose: 6 units Documented by: [id number] Cosigned by: [id number] Admin: 06/22/21 20:54 Dose: Not Given Documented by: [id number] Admin: 06/22/21 17:23 Dose: 5 units Documented by: [id number] Cosigned by: [id number] Admin: 06/22/21 12:23 Dose: Not Given Documented by: [id number] Admin: 06/22/21 09:19 Dose: 6 units Documented by: [id number] Cosigned by: [id number] Admin: 06/21/21 20:45 Dose: Not Given Documented by: [id number] Admin: 06/21/21 17:42 Dose: Not Given Documented by: [id number] Admin: 06/21/21 13:30 Dose: Not Given Documented by: [id number] Admin: 06/21/21 09:03 Dose: 5 units Documented by: [id number] Cosigned by: [id number] Insulin Glargine (Insulin Glargine Solostar 100 Units/Ml 3 Ml Pen) 6 units SC BID LUCINDA Stop: 07/21/21 08:59 Last Admin: 06/26/21 08:05 Dose: 6 units Documented by: [id number] Cosigned by: [id number] Admin: 06/25/21 22:10 Dose: 6 units Documented by: [id number] Cosigned by: [id number] Admin: 06/25/21 08:31 Dose: 6 units Documented by: [id number] Cosigned by: [id number] Admin: 06/24/21 22:14 Dose: 6 units Documented by: [id number] Cosigned by: [id number] Admin: 06/24/21 09:06 Dose: 6 units Documented by: [id number] Cosigned by: [id number] Admin: 06/23/21 20:45 Dose: 6 units Documented by: [id number] Cosigned by: [id number] Admin: 06/23/21 08:00 Dose: 6 units Documented by: [id number] Cosigned by: [id number] Admin: 06/22/21 20:56 Dose: 6 units Documented by: [id number] Cosigned by: [id number] Admin: 06/22/21 09:18 Dose: 6 units Documented by: [id number] Cosigned by: [id number] Admin: 06/21/21 20:46 Dose: 6 units Documented by: [id number] Cosigned by: [id number] Admin: 06/21/21 10:26 Dose: 6 units Documented by: [id number] Cosigned by: [id number] Lorazepam (Lorazepam 2 Mg/1 Ml Vial) 1 mg IV UD PRN; Protocol PRN Reason: EtOH Withdrawl AWSS Score 6,7 Stop: 07/21/21 07:24 Last Admin: 06/25/21 22:20 Dose: 1 mg Documented by: [id number] Admin: 06/24/21 18:44 Dose: 1 mg Documented by: [id number] Admin: 06/24/21 16:20 Dose: 1 mg Documented by: [id number] Admin: 06/24/21 13:25 Dose: 1 mg Documented by: [id number] Admin: 06/24/21 10:48 Dose: 1 mg Documented by: [id number] Lorazepam (Lorazepam 2 Mg/1 Ml Vial) 3 mg IV ONCE PRN; Protocol PRN Reason: EtOH Withdrawl AWSS Score >=10 Stop: 07/21/21 07:24 Last Admin: 06/24/21 20:40 Dose: 3 mg Documented by: [id number] Admin: 06/23/21 15:45 Dose: 3 mg Documented by: [id number] Admin: 06/23/21 15:15 Dose: 3 mg Documented by: [id number] Admin: 06/21/21 13:22 Dose: 3 mg Documented by: [id number] Admin: 06/21/21 07:42 Dose: 3 mg Documented by: [id number] Lorazepam (Lorazepam 2 Mg/1 Ml Vial) 2 mg IV UD PRN; Protocol PRN Reason: EtOH Withdrawl AWSS Score 8,9 Stop: 07/21/21 07:24 Last Admin: 06/26/21 05:02 Dose: 2 mg Documented by: [id number] Admin: 06/26/21 01:40 Dose: 2 mg Documented by: [id number] Admin: 06/25/21 17:20 Dose: 2 mg Documented by: [id number] Admin: 06/24/21 12:27 Dose: 2 mg Documented by: [id number] Admin: 06/23/21 14:37 Dose: 2 mg Documented by: [id number] Admin: 06/23/21 13:52 Dose: 2 mg Documented by: [id number] Admin: 06/22/21 22:27 Dose: 2 mg Documented by: [id number] Admin: 06/22/21 21:11 Dose: 2 mg Documented by: [id number] Admin: 06/21/21 22:10 Dose: 2 mg Documented by: [id number] Admin: 06/21/21 19:37 Dose: 2 mg Documented by: [id number] Losartan Potassium (Losartan Potassium 50 Mg Tab) 50 mg PO DAILY [facility] Stop: 07/22/21 08:59 Last Admin: 06/26/21 08:01 Dose: 50 mg Documented by: [id number] Admin: 06/25/21 08:28 Dose: 50 mg Documented by: [id number] Admin: 06/24/21 09:02 Dose: 50 mg Documented by: [id number] Admin: 06/23/21 08:00 Dose: 50 mg Documented by: [id number] Admin: 06/22/21 09:15 Dose: 50 mg Documented by: [id number] Magnesium Oxide (Magnesium Oxide 400 Mg Tab) 100 mg PO DAILY [facility] Stop: 07/22/21 08:59 Last Admin: 06/26/21 08:01 Dose: 100 mg Documented by: [id number] Admin: 06/25/21 08:30 Dose: 100 mg Documented by: [id number] Admin: 06/24/21 09:04 Dose: 100 mg Documented by: [id number] Admin: 06/23/21 08:01 Dose: 100 mg Documented by: [id number] Admin: 06/22/21 09:15 Dose: 100 mg Documented by: [id number] Metoprolol Succinate (Metoprolol Succ 50mg Ext Rel Tab) 100 mg PO QAM [facility] Stop: 07/22/21 08:59 Last Admin: 06/26/21 08:01 Dose: 100 mg Documented by: [id number] Admin: 06/25/21 08:29 Dose: 100 mg Documented by: [id number] Admin: 06/24/21 09:03 Dose: 100 mg Documented by: [id number] Admin: 06/23/21 08:02 Dose: 100 mg Documented by: [id number] Admin: 06/22/21 09:15 Dose: 100 mg Documented by: [id number] Mirtazapine (Mirtazapine Tab 15 Mg Tab) 15 mg PO HS [facility] Stop: 07/21/21 20:59 Last Admin: 06/25/21 22:06 Dose: 15 mg Documented by: [id number] Admin: 06/24/21 22:46 Dose: 15 mg Documented by: [id number] Admin: 06/23/21 20:46 Dose: 15 mg Documented by: [id number] Admin: 06/22/21 20:53 Dose: 15 mg Documented by: [id number] Admin: 06/21/21 20:35 Dose: 15 mg Documented by: [id number] Miscellaneous (Remove Nicoderm Patch) 1 ea N/A [id number] [facility] Stop: 07/25/21 08:58 Last Admin: 06/26/21 08:07 Dose: 1 ea Documented by: [id number] Admin: 06/25/21 08:31 Dose: 1 ea Documented by: [id number] Miscellaneous (Carbohydrates For Hypoglycemia ) 15 - 30 gm PO UD PRN PRN Reason: Hypoglycemia Protocol Stop: 07/24/21 16:46 Last Admin: 06/24/21 16:38 Dose: 15 gm Documented by: [id number] Admin: 06/24/21 16:23 Dose: 15 gm Documented by: [id number] Nicotine (Nicotine 21 Mg/24 Hr Tdsy) 21 mg TD QAM [facility] Stop: 07/24/21 12:59 Last Admin: 06/26/21 08:01 Dose: 21 mg Documented by: [id number] Admin: 06/25/21 08:31 Dose: 21 mg Documented by: [id number] Admin: 06/24/21 13:12 Dose: 21 mg Documented by: [id number] Nicotine Polacrilex (Nicotine Polacrilex 2 Mg Gum) 1 piece MT Q1H PRN PRN Reason: tobacco withdrawal Stop: 07/24/21 12:41 Last Admin: 06/25/21 13:37 Dose: 1 piece Documented by: [id number] Admin: 06/25/21 08:30 Dose: 1 piece Documented by: [id number] Admin: 06/24/21 13:12 Dose: 1 piece Documented by: [id number] Venlafaxine HCl (Venlafaxine Hcl Xr 150 Mg Capxr) 150 mg PO DAILY [facility] Stop: 07/22/21 08:59 Last Admin: 06/26/21 07:59 Dose: 150 mg Documented by: [id number] Admin: 06/25/21 08:30 Dose: 150 mg Documented by: [id number] Admin: 06/24/21 09:03 Dose: 150 mg Documented by: [id number] Admin: 06/23/21 08:00 Dose: 150 mg Documented by: [id number] Admin: 06/22/21 09:14 Dose: 150 mg Documented by: [id number] Discontinued Medications Amlodipine Besylate (Amlodipine Besylate 5 Mg Tab) 5 mg PO NOW ONE Stop: 06/21/21 06:27 Last Admin: 06/21/21 06:42 Dose: 5 mg Documented by: [id number] Buprenorphine/Naloxone (Buprenorphine/Naloxone 8/2 Mg Tab) 1 tab SL NOW STA Stop: 06/21/21 04:53 Last Admin: 06/21/21 05:17 Dose: 1 tab Documented by: [id number] Buspirone HCl (Buspirone 5 Mg Tab) 10 mg PO TID [facility] Stop: 07/21/21 13:59 Last Admin: 06/25/21 08:30 Dose: 10 mg Documented by: [id number] Admin: 06/24/21 20:47 Dose: 10 mg Documented by: [id number] Admin: 06/24/21 14:10 Dose: 10 mg Documented by: [id number] Admin: 06/24/21 09:03 Dose: 10 mg Documented by: [id number] Admin: 06/23/21 20:43 Dose: 10 mg Documented by: [id number] Admin: 06/23/21 13:52 Dose: 10 mg Documented by: [id number] Admin: 06/23/21 08:03 Dose: 10 mg Documented by: [id number] Admin: 06/22/21 20:55 Dose: 10 mg Documented by: [id number] Admin: 06/22/21 14:35 Dose: 10 mg Documented by: [id number] Admin: 06/22/21 09:14 Dose: 10 mg Documented by: [id number] Admin: 06/21/21 20:34 Dose: 10 mg Documented by: [id number] Admin: 06/21/21 13:31 Dose: 10 mg Documented by: [id number] Furosemide (Furosemide 40 Mg/4 Ml Vial) 40 mg IV NOW STA Stop: 06/21/21 04:51 Last Admin: 06/21/21 05:15 Dose: 40 mg Documented by: [id number] Furosemide (Furosemide 40 Mg/4 Ml Vial) 40 mg IV DAILY [facility] Stop: 07/21/21 08:59 Last Admin: 06/23/21 09:56 Dose: 40 mg Documented by: [id number] Admin: 06/22/21 09:13 Dose: 40 mg Documented by: [id number] Admin: 06/21/21 10:26 Dose: 40 mg Documented by: [id number] Gabapentin (Gabapentin 1200mg Alcohol Withdrawal Load) 1 ea PO NOW STA; Prot ocol Stop: 06/21/21 07:10 Last Admin: 06/21/21 07:41 Dose: Not Given Documented by: [id number] Gabapentin (Gabapentin 600 Mg Tab) 1,200 mg PO NOW ONE Stop: 06/21/21 07:26 Last Admin: 06/21/21 07:41 Dose: 1,200 mg Documented by: [id number] Gabapentin (Gabapentin 600 Mg Tab) 600 mg PO Q24H [facility] Stop: 06/24/21 19:16 Last Admin: 06/24/21 22:13 Dose: 600 mg Documented by: [id number] Gabapentin (Gabapentin 600 Mg Tab) 600 mg PO Q8H [facility] Stop: 06/22/21 19:16 Last Admin: 06/22/21 19:02 Dose: 600 mg Documented by: [id number] Admin: 06/22/21 12:24 Dose: 600 mg Documented by: [id number] Admin: 06/22/21 03:41 Dose: 600 mg Documented by: [id number] Gabapentin (Gabapentin 600 Mg Tab) 600 mg PO Q12H [facility] Stop: 06/23/21 19:16 Last Admin: 06/23/21 20:44 Dose: 600 mg Documented by: [id number] Admin: 06/23/21 08:01 Dose: 600 mg Documented by: [id number] Gabapentin (Gabapentin 600 Mg Tab) 600 mg PO Q6H [facility] Stop: 06/21/21 19:16 Last Admin: 06/21/21 20:33 Dose: 600 mg Documented by: [id number] Admin: 06/21/21 18:29 Dose: 600 mg Documented by: [id number] Multivitamins 10 ml/ Thiamine HCl 100 mg/ Folic Acid 1 mg/Sodium Chloride 1,011.2 mls @ 500 mls/hr IV .Q2H2M ONE Stop: 06/21/21 09:26 Last Infusion: 06/21/21 11:54 Dose: 0 mls/hr Documented by: [id number] Admin: 06/21/21 08:33 Dose: 500 mls/hr Documented by: [id number] Magnesium Sulfate/Dextrose (Magnesium Sulfate / D5w) 1 gm in 100 mls @ 50 mls/hr IV Q2H [facility] Stop: 06/22/21 19:59 Last Infusion: 06/22/21 21:57 Dose: 0 mls/hr Documented by: [id number] Admin: 06/22/21 18:09 Dose: 50 mls/hr Documented by: [id number] Infusion: 06/22/21 18:09 Dose: 50 mls/hr Documented by: [id number] Admin: 06/22/21 17:23 Dose: 50 mls/hr Documented by: [id number] Lorazepam (Lorazepam 2 Mg/1 Ml Vial) 1 mg IV NOW STA Stop: 06/22/21 16:41 Last Admin: 06/22/21 17:22 Dose: 1 mg Documented by: [id number] Metoprolol Succinate (Metoprolol Succ 50mg Ext Rel Tab) 100 mg PO NOW STA Stop: 06/21/21 06:27 Last Admin: 06/21/21 06:42 Dose: 100 mg Documented by: [id number] Pneumococcal Polyvalent Vaccine (Pneumococcal Polysaccharides 25 Mcg/0.5 Ml Vial/Syr) 25 mcg IM .ONCE ONE Stop: 06/21/21 11:01 Last Admin: 06/21/21 13:31 Dose: 25 mcg Documented by: [id number] Trazodone HCl (Trazodone Hcl 50 Mg Tab) 75 mg PO HS [facility] Stop: 07/21/21 20:59 Last Admin: 06/24/21 22:46 Dose: 75 mg Documented by: [id number] Admin: 06/23/21 20:46 Dose: 75 mg Documented by: [id number] Admin: 06/22/21 20:56 Dose: 75 mg Documented by: [id number] Admin: 06/21/21 20:36 Dose: 75 mg Documented by: [id number] Venlafaxine HCl (Venlafaxine Hcl Xr 150 Mg Capxr) 150 mg PO QAM STA Stop: 06/21/21 06:27 Last Admin: 06/21/21 06:42 Dose: 150 mg Documented by: [id number] Blood Pressure Blood Pressure Findings: Elevated blood pressure Blood Pressure Disposition: further management by hospitalist Discharge Plan Visit Data Chief Complaint: Swelling/Edema to Extremity Stated Complaint: LEG SWELLING ED Provider: Bouchra George Discharge Problem: Fluid retention in legs, Alcohol use disorder, Cardiomyopathy, HTN (hypertension) Patient Disposition: Admitted As Inpatient Discharge Instructions Interventions: ED Discharge Assessment Last Done: 06/21/21 08:27 Discharge Problem: Cardiomyopathy Qualifiers: Cardiomyopathy type: alcoholic Qualified Code(s): I42.6 - Alcoholic cardiomyopathy HTN (hypertension) Qualifiers: Hypertension type: primary hypertension Qualified Code(s): I10 - Essential (primary) hypertension
--- NOTE | 2021-06-21 07:49 | XRay Report ---
XR chest 1V portable HISTORY: Shortness of breath. COMPARISON: Chest 05/28/2021. FINDINGS: No pneumothorax. No pleural effusions. The cardiac silhouette remains mildly enlarged. No e vidence for pulmonary edema. Linear density left lung base consistent with subsegmental atelectasis o r scarring. Otherwise, no focal lung consolidations to suggest pneumonia. No evidence for pulmonary e sofie. IMPRESSION: Stable cardiomegaly. ACT 112: Negative or not required by law. Electronically signed by: Greg Goyal M.D. 06/21/2021 7:48 AM
[2021-06-21] MEDS: INSULIN ASPART PER UNIT SC SCH ×4 (09:03→20:45)
[2021-06-21] MEDS: ENOXAPARIN INJ 40 MG/0.4 ML SYR SQ SCH ×2 (09:05→20:34)
[2021-06-21] MEDS: FOLIC ACID 1 MG in SYRINGE 9.8 ML IV SCH (09:07)
[2021-06-21] MEDS: THIAMINE HCL 100 MG in SYRINGE 9 ML IV SCH (09:07)
[2021-06-21] MEDS: FUROSEMIDE 40 MG/4 ML VIAL IV SCH (10:26)
[2021-06-21] MEDS: INSULIN GLARGINE SOLOSTAR 100 UNITS/ML 3 ML PEN SC SCH ×2 (10:26→20:46)
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
[2021-06-21] MEDS ORDERED: PNEUMOCOCCAL POLYSACCHARIDES 25 MCG/0.5 ML VIAL/SYR IM ONE (11:00)
[2021-06-21] MEDS ORDERED: hydrOXYzine HCl 25 MG TAB PO PRN (11:42)
[2021-06-21] MEDS: busPIRone 5 MG TAB PO SCH ×2 (13:31→20:34)
[2021-06-21] MEDS: GABAPENTIN 600 MG TAB PO SCH ×2 (18:29→20:33)
[2021-06-21] MEDS: MIRTAZAPINE TAB 15 MG TAB PO SCH (20:35)
[2021-06-21] MEDS: traZODone HCL 50 MG TAB PO SCH (20:36)
[2021-06-21] MEDS: BUPRENORPHINE/NALOXONE 8/2 MG TAB SL SCH (20:45)
[2021-06-22] MEDS: GABAPENTIN 600 MG TAB PO SCH ×3 (03:41→19:02)
[2021-06-22] MEDS: cloNIDine HCL 0.1 MG TAB PO PRN (04:09)
--- NOTE | 2021-06-22 06:54 | Electrocardiogram Report ---
Test Reason : Blood Pressure : / mmHG Vent. Rate : 099 BPM Atrial Rate : 099 BPM P-R Int : 192 ms QRS Dur : 094 ms QT Int : 360 ms P-R-T Axes : 062 -17 055 degrees QTc Int : 462 ms Sinus rhythm with occasional Premature ventricular complexes Otherwise normal ECG When compared with ECG of 29-MAY-2021 06:28, Premature ventricular complexes are now Present Premature supraventricular complexes are no longer Present Confirmed by Yobani Farris ([id number]) on 06/22/2021 6:54:23 AM Referred By: REFERRED SELF Confirmed By:Yobani Farris
[2021-06-22 07:29] LABS: Basophils # (auto) 0.02 K/uL (0-0.2); Basophils % (auto) 0.4 %; Eosinophils # (auto) 0.16 K/uL (0-0.5); Eosinophils % (auto) 3.6 %; Hemoglobin 12.2 g/dL (14.0-18.0); Lymphocytes # (auto) 1.41 K/uL (1.2-3.4); Lymphocytes % (auto) 31.7 %; Mean Corpuscular Hemoglobin 31.4 pg (25-34); Mean Corpuscular Volume 95.1 fL (80-100); Mean Platelet Volume 9.6 fL (7.4-10.4); Monocytes # (auto) 0.49 K/uL (0.11-0.59); Neutrophils # (auto) 2.37 K/uL (1.4-6.5); Neutrophils % (auto) 53.3 %; Platelet Count 120 K/uL (130-400); RDW Coefficient of Variation 14.1 % (11.5-14.5); RDW Standard Deviation 48.3 fL (36.4-46.3); Red Blood Count 3.89 M/uL (4.7-6.1); White Blood Count 4.45 K/uL (4.8-10.8)
[2021-06-22 07:41] LABS: Estimated Average Glucose 232 mg/dl; Hemoglobin A1C 9.7 % (4.5-5.6)
[2021-06-22 07:49] LABS: BUN Creatinine Ratio 24.2 (10-20); Creatinine Clr Calc Pharmacy 107.3 ml/min; Est GFR (African American) 102.6 ml/min; Est GFR (Non-African American) 88.5 ml/min; Magnesium 1.6 mg/dl (1.7-2.4); Potassium 3.8 mmol/L (3.5-5.1)
[2021-06-22] MEDS: FUROSEMIDE 40 MG/4 ML VIAL IV SCH (09:13)
[2021-06-22] MEDS: BUPRENORPHINE/NALOXONE 8/2 MG TAB SL SCH ×2 (09:13→21:02)
[2021-06-22] MEDS: ENOXAPARIN INJ 40 MG/0.4 ML SYR SQ SCH ×2 (09:13→20:55)
[2021-06-22] MEDS: ARIPIprazole 1 MG/ML ORAL SOLN 150 ML BTL PO SCH (09:13)
[2021-06-22] MEDS: VENLAFAXINE HCL XR 150 MG CAPXR PO SCH (09:14)
[2021-06-22] MEDS: ATORVASTATIN 40 MG TAB PO SCH (09:14)
[2021-06-22] MEDS: busPIRone 5 MG TAB PO SCH ×3 (09:14→20:55)
[2021-06-22] MEDS: METOPROLOL SUCC 50MG EXT REL TAB PO SCH (09:15)
[2021-06-22] MEDS: amLODIPine BESYLATE 5 MG TAB PO SCH (09:15)
[2021-06-22] MEDS: CYANOCOBALAMIN (B-12) 500 MCG TABLET PO SCH (09:15)
[2021-06-22] MEDS: ASPIRIN 81 MG ECTAB PO SCH (09:15)
[2021-06-22] MEDS: MAGNESIUM OXIDE 400 MG TAB PO SCH (09:15)
[2021-06-22] MEDS: LOSARTAN POTASSIUM 50 MG TAB PO SCH (09:15)
[2021-06-22] MEDS: INSULIN GLARGINE SOLOSTAR 100 UNITS/ML 3 ML PEN SC SCH ×2 (09:18→20:56)
[2021-06-22] MEDS: THIAMINE HCL 100 MG in SYRINGE 9 ML IV SCH (09:18)
[2021-06-22] MEDS: FOLIC ACID 1 MG in SYRINGE 9.8 ML IV SCH (09:18)
[2021-06-22] MEDS: INSULIN ASPART PER UNIT SC SCH ×4 (09:19→20:54)
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
[2021-06-22] MEDS ORDERED: LORazepam 2 MG/1 ML VIAL IV STA (16:40)
[2021-06-22] MEDS: MAGNESIUM SULFATE / D5W 1 GM/100 ML BAG IV SCH ×2 (17:23→18:09)
[2021-06-22] MEDS: MIRTAZAPINE TAB 15 MG TAB PO SCH (20:53)
[2021-06-22] MEDS: traZODone HCL 50 MG TAB PO SCH (20:56)
[2021-06-22] MEDS: LORazepam 2 MG/1 ML VIAL IV PRN ×2 (21:11→22:27)
[2021-06-23] MEDS: INSULIN ASPART PER UNIT SC SCH ×4 (07:59→20:45)
[2021-06-23] MEDS: LOSARTAN POTASSIUM 50 MG TAB PO SCH (08:00)
[2021-06-23] MEDS: INSULIN GLARGINE SOLOSTAR 100 UNITS/ML 3 ML PEN SC SCH ×2 (08:00→20:45)
[2021-06-23] MEDS: ASPIRIN 81 MG ECTAB PO SCH (08:00)
[2021-06-23] MEDS: VENLAFAXINE HCL XR 150 MG CAPXR PO SCH (08:00)
[2021-06-23] MEDS: MAGNESIUM OXIDE 400 MG TAB PO SCH (08:01)
[2021-06-23] MEDS: amLODIPine BESYLATE 5 MG TAB PO SCH (08:01)
[2021-06-23] MEDS: GABAPENTIN 600 MG TAB PO SCH ×2 (08:01→20:44)
[2021-06-23] MEDS: METOPROLOL SUCC 50MG EXT REL TAB PO SCH (08:02)
[2021-06-23] MEDS: CYANOCOBALAMIN (B-12) 500 MCG TABLET PO SCH (08:02)
[2021-06-23] MEDS: ATORVASTATIN 40 MG TAB PO SCH (08:02)
[2021-06-23] MEDS: busPIRone 5 MG TAB PO SCH ×3 (08:03→20:43)
[2021-06-23] MEDS: ENOXAPARIN INJ 40 MG/0.4 ML SYR SQ SCH ×2 (08:03→20:43)
[2021-06-23] MEDS: THIAMINE HCL 100 MG in SYRINGE 9 ML IV SCH (08:06)
[2021-06-23] MEDS: FOLIC ACID 1 MG in SYRINGE 9.8 ML IV SCH (08:06)
[2021-06-23] MEDS: ARIPIprazole 1 MG/ML ORAL SOLN 150 ML BTL PO SCH (08:18)
[2021-06-23] MEDS: BUPRENORPHINE/NALOXONE 8/2 MG TAB SL SCH ×2 (08:18→20:53)
[2021-06-23 08:47] LABS: Calcium 8.5 mg/dl (8.5-10.1); Creatinine Clr Calc Pharmacy 77.1 ml/min; Est GFR (African American) 70.9 ml/min; Est GFR (Non-African American) 61.1 ml/min; Magnesium 1.9 mg/dl (1.7-2.4); Potassium 4.7 mmol/L (3.5-5.1)
[2021-06-23] MEDS: FUROSEMIDE 40 MG/4 ML VIAL IV SCH (09:56)
[2021-06-23] MEDS: LORazepam 2 MG/1 ML VIAL IV PRN ×4 (13:52→15:45)
--- NOTE | 2021-06-23 17:54 | Hospitalist Progress Note ---
Date of Service June 23, 2021 Assessment & Plan (1) Alcohol withdrawal syndrome: Plan: (1) Leg swelling: #. Possible acute on chronic diastolic heart failure No DVT on LE us of both legs. Leg swelling improved, b/l crackles appreciated on chest auscultation. 06/21 echo: EF 55 to 60%, grade 1 diastolic dysfunction. No apparent cellulitis or need for abx at this time. Continue with IV Lasix, transition to p.o. tomorrow. Will need cardio f/u as OP. (2) Alcohol withdrawal syndrome: Plan: Very tremulous today, no tachycardia, hemodynamically stable. Cont Ativan PRN. AWSS protocol (3) Neuropathy: Plan: chronic, stable. Cont gabapentin per home regimen. (4) Acute kidney injury: Plan: resolved, cont to monitor BMP periodically. #. Other chronic medical conditions: ASCVD, CATALINO, smoking Continue home meds, CPAP nightly, nicotine patch as needed #. DVT prophylaxis: Lovenox Full Code Dispo-to home when improved. Patient agreeable to inpatient rehab to [place], communicated with child support case officer. Admission and Anticipated Discharge Date Admission Date: June 21, 2021 Subjective Patient seen and examined at bedside as a follow-up of alcohol withdrawal syndrome. Patient was sitting up in bed, on room air, NAD, was tremulous with hands, is requiring as needed Ativan, denies any fever/headache/dizziness/chest pain/belly pain/other review of symptoms. Patient reports chronic low back pain. Patient reports eating and moving bowels okay. Patient feels not as better as yesterday. Last drink was Monday evening. Patient drinks half a gallon of liquor every day. Physical Exam Physical Exam: GENERAL: Alert and oriented x3. NAD, on RA. HEENT: No pallor, no icterus. Pupils equal, round and reactive to light. Oral mucosa moist. NECK: No JVD, no neck masses. HEART: S1 and S2 heard. Regular rate and rhythm. No murmur, no gallop. RESPIRATORY SYSTEM: Normal AP diameter. No accessory muscle use. No wheezing, b/l crackles. ABDOMEN: Soft, bowel sounds present, nontender, no distention. CENTRAL NERVOUS SYSTEM: No facial droop. Speech is clear. Obeys simple commands. Moves extremities. EXTREMITIES: No edema, no erythema seen. b/l hand tremors noted. Results & Data Results & Data ([facility]) Vital Signs (Past 12 Hours) Vital Signs Temp Pulse Pulse Resp BP Pulse Ox 06/23/21 15:34 97 H 22 129/82 96 06/23/21 14:30 79 24 135/79 96 06/23/21 13:45 37.2 C 92 H 20 136/72 96 06/23/21 10:57 36.4 C L 77 18 129/80 95 06/23/21 08:29 36.5 C 67 18 153/90 H 96 06/23/21 08:00 88
[2021-06-23] MEDS: MIRTAZAPINE TAB 15 MG TAB PO SCH (20:46)
[2021-06-23] MEDS: traZODone HCL 50 MG TAB PO SCH (20:46)
[2021-06-24 06:16] LABS: Hematocrit (blood only) 37.6 % (42-52); Mean Corpuscular Hemoglobin 30.9 pg (25-34); Mean Corpuscular Hgb Conc 31.9 g/dL (32-36); Mean Corpuscular Volume 96.9 fL (80-100); RDW Coefficient of Variation 13.6 % (11.5-14.5); RDW Standard Deviation 48.1 fL (36.4-46.3); Red Blood Count 3.88 M/uL (4.7-6.1); White Blood Count 5.04 K/uL (4.8-10.8)
[2021-06-24 06:36] LABS: Mean Platelet Volume 10.2 fL (7.4-10.4); Platelet Count 90 K/uL (130-400); Platelet Estimate Decreased (Normal)
[2021-06-24 06:39] LABS: BUN Creatinine Ratio 26.3 (10-20); Calcium 8.4 mg/dl (8.5-10.1); Creatinine Clr Calc Pharmacy 72.6 ml/min; Est GFR (African American) 65.9 ml/min; Est GFR (Non-African American) 56.8 ml/min; Phosphorus 4.2 mg/dl (2.5-4.9); Potassium 4.4 mmol/L (3.5-5.1)
[2021-06-24] MEDS: LOSARTAN POTASSIUM 50 MG TAB PO SCH (09:02)
[2021-06-24] MEDS: ATORVASTATIN 40 MG TAB PO SCH (09:03)
[2021-06-24] MEDS: METOPROLOL SUCC 50MG EXT REL TAB PO SCH (09:03)
[2021-06-24] MEDS: VENLAFAXINE HCL XR 150 MG CAPXR PO SCH (09:03)
[2021-06-24] MEDS: busPIRone 5 MG TAB PO SCH ×3 (09:03→20:47)
[2021-06-24] MEDS: amLODIPine BESYLATE 5 MG TAB PO SCH (09:03)
[2021-06-24] MEDS: ASPIRIN 81 MG ECTAB PO SCH (09:04)
[2021-06-24] MEDS: ARIPIprazole 1 MG/ML ORAL SOLN 150 ML BTL PO SCH (09:04)
[2021-06-24] MEDS: CYANOCOBALAMIN (B-12) 500 MCG TABLET PO SCH (09:04)
[2021-06-24] MEDS: FOLIC ACID 1 MG in SYRINGE 9.8 ML IV SCH (09:04)
[2021-06-24] MEDS: MAGNESIUM OXIDE 400 MG TAB PO SCH (09:04)
[2021-06-24] MEDS: THIAMINE HCL 100 MG in SYRINGE 9 ML IV SCH (09:05)
[2021-06-24] MEDS: ENOXAPARIN INJ 40 MG/0.4 ML SYR SQ SCH ×2 (09:05→22:45)
[2021-06-24] MEDS: INSULIN ASPART PER UNIT SC SCH ×4 (09:06→22:13)
[2021-06-24] MEDS: INSULIN GLARGINE SOLOSTAR 100 UNITS/ML 3 ML PEN SC SCH ×2 (09:06→22:14)
[2021-06-24] MEDS: BUPRENORPHINE/NALOXONE 8/2 MG TAB SL SCH ×2 (09:12→22:13)
[2021-06-24] MEDS: FUROSEMIDE 40 MG TAB PO SCH (10:28)
[2021-06-24] MEDS: LORazepam 2 MG/1 ML VIAL IV PRN ×6 (10:48→20:40)
[2021-06-24] MEDS: NICOTINE POLACRILEX 2 MG GUM MT PRN (13:12)
[2021-06-24] MEDS: NICOTINE 21 MG/24 HR TDSY TD SCH (13:12)
[2021-06-24] MEDS: CARBOHYDRATES FOR HYPOGLYCEMIA PO PRN ×3 (16:23→17:05)
[2021-06-24] MEDS ORDERED: DEXTROSE 50% 50 ML SYRINGE IV PRN (16:47)
[2021-06-24] MEDS ORDERED: GLUCOSE 40% GEL 15 GM TUBE PO PRN (16:47)
[2021-06-24] MEDS ORDERED: GLUCOSE 10 TABS/TUBE PO PRN (16:47)
[2021-06-24] MEDS ORDERED: GLUCAGON FOR INJ 1 MG VIAL SQ PRN (16:47)
--- NOTE | 2021-06-24 17:50 | Hospitalist Progress Note ---
Date of Service June 24, 2021 Assessment & Plan (1) Alcohol withdrawal syndrome: Plan: (1) Leg swelling: #. Possible acute on chronic diastolic heart failure No DVT on LE us of both legs. Leg swelling improved, b/l crackles improving on chest auscultation. 06/21 echo: EF 55 to 60%, grade 1 diastolic dysfunction. No apparent cellulitis or need for abx at this time. IV to PO lasix today. Will need cardio f/u as OP. (2) Alcohol withdrawal syndrome: Plan: Still tremulous, no tachycardia, hemodynamically stable. Cont Ativan PRN. AWSS protocol Inpatient rehab upon DC. Quite a few recommendations received from Pt's [facility] addiction counselor, will need psychiatry evaluation. (3) Neuropathy: Plan: chronic, stable. Cont gabapentin per home regimen. (4) Acute kidney injury: Plan: resolved, cont to monitor BMP periodically. #. Other chronic medical conditions: ASCVD, CATALINO, smoking Continue home meds, CPAP nightly, nicotine patch as needed #. DVT prophylaxis: Lovenox Of note: Per CM, From pt's [facility] Addiction Counselor: Discussion at [place] with [facility] regarding Dewayne. Recommendations are - To talk about Injectable medications for his Bipolar diagnosis because of his history of non compliance. -Check Ammonia levels -Discuss Campral versus Naltrexone due to Dewayne being on Suboxone and reach out to [facility] Provider to see if this is something they would prescribe. -Get some neurological testing done or at least a MMSE or MOCHA exam done by provider on next visit. Discussion regarding if he should have someone become his guardian. Augustus Jones from [facility] is going to research facilities to try to make referral to since Dewayne is willing to go to rehab. Encourage patient to complete a 90 day program to give housing transitions time to get him a place to live Will reach out to psychiatry with some of the help with their recs. Full Code Dispo-to home when improved. Patient agreeable to inpatient rehab to [place], communicated with case packer and sealer. Admission and Anticipated Discharge Date Admission Date: June 21, 2021 Subjective Patient seen and examined at bedside as a follow-up of alcohol withdrawal syndrome. Patient was sitting up in chair, on room air, NAD, was tremulous with hands, is requiring as needed Ativan, denies any fever/headache/dizziness/chest pain/belly pain/other review of symptoms. Patient reports chronic low back pain. Patient reports eating and moving bowels okay. Patient feels better today. Last drink was Monday evening CPAS. Patient drinks half a gallon of liquor every day. Physical Exam Physical Exam: GENERAL: Alert and oriented x3. NAD, on RA. HEENT: No pallor, no icterus. Pupils equal, round and reactive to light. Oral mucosa moist. NECK: No JVD, no neck masses. HEART: S1 and S2 heard. Regular rate and rhythm. No murmur, no gallop. RESPIRATORY SYSTEM: Normal AP diameter. No accessory muscle use. No wheezing, b/l crackles -- improving ABDOMEN: Soft, bowel sounds present, nontender, no distention. CENTRAL NERVOUS SYSTEM: No facial droop. Speech is clear. Obeys simple commands. Moves extremities. EXTREMITIES: No edema, no erythema seen. b/l hand tremors noted. Results & Data Results & Data ([facility]) Vital Signs (Past 12 Hours) Vital Signs Temp Pulse Pulse Resp BP Pulse Ox 06/24/21 15:40 79 06/24/21 15:37 36.6 C 70 18 139/86 97 06/24/21 15:04 36.9 C 75 18 136/81 93 06/24/21 12:20 36.3 C L 86 20 124/70 92 06/24/21 11:09 36.4 C L 80 18 143/82 H 97 06/24/21 10:30 85 114/75 06/24/21 07:20 70 06/24/21 06:56 36.4 C L 72 19 147/89 H 94
[2021-06-24] MEDS ORDERED: GABAPENTIN 600 MG TAB PO SCH (19:15)
[2021-06-24] MEDS: MIRTAZAPINE TAB 15 MG TAB PO SCH (22:46)
[2021-06-24] MEDS: traZODone HCL 50 MG TAB PO SCH (22:46)
[2021-06-25] MEDS: cloNIDine HCL 0.1 MG TAB PO PRN ×2 (00:31→22:55)
[2021-06-25 07:10] LABS: Magnesium 1.9 mg/dl (1.7-2.4); Phosphorus 3.8 mg/dl (2.5-4.9)
[2021-06-25] MEDS: LOSARTAN POTASSIUM 50 MG TAB PO SCH (08:28)
[2021-06-25] MEDS: ATORVASTATIN 40 MG TAB PO SCH (08:29)
[2021-06-25] MEDS: CYANOCOBALAMIN (B-12) 500 MCG TABLET PO SCH (08:29)
[2021-06-25] MEDS: amLODIPine BESYLATE 5 MG TAB PO SCH (08:29)
[2021-06-25] MEDS: ASPIRIN 81 MG ECTAB PO SCH (08:29)
[2021-06-25] MEDS: METOPROLOL SUCC 50MG EXT REL TAB PO SCH (08:29)
[2021-06-25] MEDS: ARIPIprazole 1 MG/ML ORAL SOLN 150 ML BTL PO SCH (08:29)
[2021-06-25] MEDS: THIAMINE HCL 100 MG in SYRINGE 9 ML IV SCH (08:30)
[2021-06-25] MEDS: VENLAFAXINE HCL XR 150 MG CAPXR PO SCH (08:30)
[2021-06-25] MEDS: FUROSEMIDE 40 MG TAB PO SCH (08:30)
[2021-06-25] MEDS: NICOTINE POLACRILEX 2 MG GUM MT PRN ×2 (08:30→13:37)
[2021-06-25] MEDS: MAGNESIUM OXIDE 400 MG TAB PO SCH (08:30)
[2021-06-25] MEDS: busPIRone 5 MG TAB PO SCH (08:30)
[2021-06-25] MEDS: FOLIC ACID 1 MG in SYRINGE 9.8 ML IV SCH (08:31)
[2021-06-25] MEDS: ENOXAPARIN INJ 40 MG/0.4 ML SYR SQ SCH ×2 (08:31→22:09)
[2021-06-25] MEDS: INSULIN GLARGINE SOLOSTAR 100 UNITS/ML 3 ML PEN SC SCH ×2 (08:31→22:10)
[2021-06-25] MEDS: NICOTINE 21 MG/24 HR TDSY TD SCH (08:31)
[2021-06-25] MEDS: INSULIN ASPART PER UNIT SC SCH ×4 (08:32→22:08)
[2021-06-25] MEDS: BUPRENORPHINE/NALOXONE 8/2 MG TAB SL SCH ×2 (08:41→22:06)
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
[2021-06-25] MEDS ORDERED: hydrALAZINE HCL 20 MG/ML VIAL IV PRN (15:57)
--- NOTE | 2021-06-25 15:58 | Hospitalist Progress Note ---
Date of Service June 25, 2021 Assessment & Plan (1) Alcohol withdrawal syndrome: Plan: (1) Leg swelling: #. Possible acute on chronic diastolic heart failure No DVT on LE us of both legs. Leg swelling improved, b/l crackles improving on chest auscultation. 06/21 echo: EF 55 to 60%, grade 1 diastolic dysfunction. No apparent cellulitis or need for abx at this time. c/w home dose lasix Will need cardio/PCP f/u as OP. (2) Alcohol withdrawal syndrome: Plan: Still tremulous, no tachycardia, hemodynamically stable. Cont Ativan PRN. AWSS protocol Inpatient rehab upon DC. Quite a few recommendations received from Pt's [facility] addiction counselor, appreciate psychiatry recommendations. (3) Neuropathy: Plan: chronic, stable. Cont gabapentin per home regimen. (4) Acute kidney injury: Plan: resolved, cont to monitor BMP periodically. #. Other chronic medical conditions: ASCVD, CATALINO, smoking Continue home meds, CPAP nightly, nicotine patch as needed Psychiatry evaluated, DC trazodone and buspar. #. DVT prophylaxis: Lovenox Of note: Per CM, [facility]: Discussion at [place] with [facility] regarding Dewayne. Recommendations are - To talk about Injectable medications for his Bipolar diagnosis because of his history of non compliance. -Check Ammonia levels -Discuss Campral versus Naltrexone due to Dewayne being on Suboxone and reach out to [facility] Provider to see if this is something they would prescribe. -Get some neurological testing done or at least a MMSE or MOCHA exam done by provider on next visit. Discussion regarding if he should have someone become his guardian. Augustus Jones from [facility] is going to research facilities to try to make referral to since Dewayne is willing to go to rehab. Encourage patient to complete a 90 day program to give housing transitions time to get him a place to live Per Psychiatry 06/25: would avoid GUZMAN, Naltrexone is absolute C/I (d/t suboxone), acamprosate as OP, consider MoCA when more sober. At this time, no sense for significant conginitive deficits. Full Code Dispo-to home when improved. Patient agreeable to inpatient rehab to me, communicated with manager of case management. Likely DC in next 1-2 day. Admission and Anticipated Discharge Date Admission Date: June 21, 2021 Subjective Patient seen and examined at bedside as a follow-up of alcohol withdrawal syndrome. Patient was lying in bed, on room air, NAD, was lethargic but oriented, is requiring as needed Ativan, denies any fever/headache/dizziness/chest pain/belly pain/other review of symptoms. Patient reports eating and moving bowels okay. Patient reports he has brain pain due to questions being asked to him during the exam "in humorous way". 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 Patient drinks half a gallon of liquor every day. Physical Exam Physical Exam: GENERAL: Lethargic/drowsy and oriented x3. NAD, on RA. HEENT: No pallor, no icterus. Pupils equal, round and reactive to light. Oral mucosa moist. NECK: No JVD, no neck masses. HEART: S1 and S2 heard. Regular rate and rhythm. No murmur, no gallop. RESPIRATORY SYSTEM: Normal AP diameter. No accessory muscle use. No wheezing, b/l crackles -- improving ABDOMEN: Soft, bowel sounds present, nontender, no distention. CENTRAL NERVOUS SYSTEM: No facial droop. Speech is clear. Obeys simple commands. Moves extremities. EXTREMITIES: No edema, no erythema seen. Results & Data Results & Data ([facility]) Vital Signs (Past 12 Hours) Vital Signs Temp Pulse Pulse Pulse Resp BP Pulse Ox 06/25/21 11:25 36.6 C 64 14 164/99 H 95 06/25/21 09:07 68 06/25/21 07:26 36.3 C L 75 16 111/76 98
[2021-06-25] MEDS: LORazepam 2 MG/1 ML VIAL IV PRN ×2 (17:20→22:20)
[2021-06-25] MEDS: MIRTAZAPINE TAB 15 MG TAB PO SCH (22:06)
[2021-06-26] MEDS: LORazepam 2 MG/1 ML VIAL IV PRN ×3 (01:40→14:10)
[2021-06-26] MEDS: VENLAFAXINE HCL XR 150 MG CAPXR PO SCH (07:59)
[2021-06-26] MEDS: CYANOCOBALAMIN (B-12) 500 MCG TABLET PO SCH (07:59)
[2021-06-26] MEDS: ARIPIprazole 1 MG/ML ORAL SOLN 150 ML BTL PO SCH (07:59)
[2021-06-26] MEDS: FUROSEMIDE 40 MG TAB PO SCH (08:00)
[2021-06-26] MEDS: ASPIRIN 81 MG ECTAB PO SCH (08:00)
[2021-06-26] MEDS: ATORVASTATIN 40 MG TAB PO SCH (08:00)
[2021-06-26] MEDS: METOPROLOL SUCC 50MG EXT REL TAB PO SCH (08:01)
[2021-06-26] MEDS: MAGNESIUM OXIDE 400 MG TAB PO SCH (08:01)
[2021-06-26] MEDS: LOSARTAN POTASSIUM 50 MG TAB PO SCH (08:01)
[2021-06-26] MEDS: NICOTINE 21 MG/24 HR TDSY TD SCH (08:01)
[2021-06-26] MEDS: ENOXAPARIN INJ 40 MG/0.4 ML SYR SQ SCH ×2 (08:02→20:56)
[2021-06-26] MEDS: BUPRENORPHINE/NALOXONE 8/2 MG TAB SL SCH ×2 (08:02→20:54)
[2021-06-26] MEDS: THIAMINE HCL 100 MG in SYRINGE 9 ML IV SCH (08:05)
[2021-06-26] MEDS: INSULIN GLARGINE SOLOSTAR 100 UNITS/ML 3 ML PEN SC SCH ×2 (08:05→20:55)
[2021-06-26] MEDS: FOLIC ACID 1 MG in SYRINGE 9.8 ML IV SCH (08:05)
[2021-06-26] MEDS: INSULIN ASPART PER UNIT SC SCH ×4 (08:06→20:55)
[2021-06-26] MEDS: amLODIPine BESYLATE 5 MG TAB PO SCH (08:08)
[2021-06-26 08:10] LABS: BUN Creatinine Ratio 32.6 (10-20); Calcium 8.8 mg/dl (8.5-10.1); Creatinine Clr Calc Pharmacy 72.8 ml/min; Est GFR (African American) 65.3 ml/min; Est GFR (Non-African American) 56.4 ml/min; Magnesium 1.8 mg/dl (1.7-2.4); Potassium 4.9 mmol/L (3.5-5.1)
--- NOTE | 2021-06-26 15:29 | Hospitalist Progress Note ---
Date of Service June 26, 2021 Assessment & Plan (1) Alcohol withdrawal syndrome: Plan: (1) Leg swelling: #. Possible acute on chronic diastolic heart failure No DVT on LE us of both legs. Leg swelling improved, b/l crackles improving on chest auscultation. 06/21 echo: EF 55 to 60%, grade 1 diastolic dysfunction. No apparent cellulitis or need for abx at this time. c/w home dose lasix Will need cardio/PCP f/u as OP. (2) Alcohol withdrawal syndrome: Plan: Still tremulous, no tachycardia, hemodynamically stable. Cont Ativan PRN. AWSS protocol Inpatient rehab upon DC. Quite a few recommendations received from Pt's [facility] addiction counselor, appreciate psychiatry recommendations. NH3 level wnl (3) Neuropathy: Plan: chronic, stable. Cont gabapentin per home regimen. (4) Acute kidney injury: Plan: resolved, cont to monitor BMP periodically. #. Other chronic medical conditions: ASCVD, CATALINO, smoking Continue home meds, CPAP nightly, nicotine patch as needed Psychiatry evaluated, DC trazodone and buspar. #. DVT prophylaxis: Lovenox Of note: Per CM, From pt's [facility] Addiction Counselor: Discussion at [place] with [facility] regarding Dewayne. Recommendations are - To talk about Injectable medications for his Bipolar diagnosis because of his history of non compliance. -Check Ammonia levels -Discuss Campral versus Naltrexone due to Dewayne being on Suboxone and reach out to [facility] Provider to see if this is something they would prescribe. -Get some neurological testing done or at least a MMSE or MOCHA exam done by provider on next visit. Discussion regarding if he should have someone become his guardian. Augustus Jnoes from [facility] is going to research facilities to try to make referral to since Dewayne is willing to go to rehab. Encourage patient to complete a 90 day program to give housing transitions time to get him a place to live Per Psychiatry 06/25: would avoid GUZMAN, Naltrexone is absolute C/I (d/t suboxone), acamprosate as OP, consider MoCA when more sober. At this time, no sense for significant conginitive deficits. Full Code Dispo-to home when improved. Patient agreeable to inpatient rehab to me, communicated with case management specialist. Pt remains confused, expect DC when improving. Admission and Anticipated Discharge Date Admission Date: June 21, 2021 Subjective Patient seen and examined at bedside as a follow-up of alcohol withdrawal syndrome. Patient was lying in bed, on room air, NAD, was lethargic but oriented x2 (not to place), is requiring as needed Ativan, denies any fever/headache/dizziness/chest pain/belly pain/other review of symptoms. Patient reports eating and moving bowels okay. Per RN, pt eating well and no acute event overnight. 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 Patient drinks half a gallon of liquor every day. Physical Exam Physical Exam: GENERAL: Lethargic/drowsy and oriented x2. NAD, on RA. HEENT: No pallor, no icterus. Pupils equal, round and reactive to light. Oral mucosa moist. NECK: No JVD, no neck masses. HEART: S1 and S2 heard. Regular rate and rhythm. No murmur, no gallop. RESPIRATORY SYSTEM: Normal AP diameter. No accessory muscle use. No wheezing, b/l crackles -- improving ABDOMEN: Soft, bowel sounds present, nontender, no distention. CENTRAL NERVOUS SYSTEM: No facial droop. Speech is clear. Obeys simple commands. Moves extremities. EXTREMITIES: No edema, no erythema seen. Results & Data Results & Data ([facility]) Vital Signs (Past 12 Hours) Vital Signs Temp Pulse Pulse Resp BP Pulse Ox 06/26/21 11:22 36.6 C 77 20 136/85 94 06/26/21 08:45 71 06/26/21 07:24 36.4 C L 78 18 159/91 H 96
[2021-06-26] MEDS: ACETAMINOPHEN 325 MG TAB PO PRN (19:39)
[2021-06-26] MEDS: MIRTAZAPINE TAB 15 MG TAB PO SCH (20:55)
[2021-06-26] MEDS: cloNIDine HCL 0.1 MG TAB PO PRN (23:50)
[2021-06-27] MEDS: ACETAMINOPHEN 325 MG TAB PO PRN ×2 (05:14→12:41)
[2021-06-27 06:58] LABS: Creatinine Clr Calc Pharmacy 77.4 ml/min; Est GFR (African American) 70.9 ml/min; Est GFR (Non-African American) 61.1 ml/min; Magnesium 1.8 mg/dl (1.7-2.4); Potassium 5.1 mmol/L (3.5-5.1)
[2021-06-27] MEDS: ENOXAPARIN INJ 40 MG/0.4 ML SYR SQ SCH ×2 (07:52→21:20)
[2021-06-27] MEDS: ARIPIprazole 1 MG/ML ORAL SOLN 150 ML BTL PO SCH (07:52)
[2021-06-27] MEDS: ATORVASTATIN 40 MG TAB PO SCH (07:52)
[2021-06-27] MEDS: VENLAFAXINE HCL XR 150 MG CAPXR PO SCH (07:53)
[2021-06-27] MEDS: CYANOCOBALAMIN (B-12) 500 MCG TABLET PO SCH (07:53)
[2021-06-27] MEDS: MAGNESIUM OXIDE 400 MG TAB PO SCH (07:53)
[2021-06-27] MEDS: amLODIPine BESYLATE 5 MG TAB PO SCH (07:53)
[2021-06-27] MEDS: LOSARTAN POTASSIUM 50 MG TAB PO SCH (07:54)
[2021-06-27] MEDS: FUROSEMIDE 40 MG TAB PO SCH (07:54)
[2021-06-27] MEDS: ASPIRIN 81 MG ECTAB PO SCH (07:54)
[2021-06-27] MEDS: NICOTINE 21 MG/24 HR TDSY TD SCH (07:54)
[2021-06-27] MEDS: INSULIN ASPART PER UNIT SC SCH ×4 (07:55→22:01)
[2021-06-27] MEDS: BUPRENORPHINE/NALOXONE 8/2 MG TAB SL SCH ×3 (07:55→21:20)
[2021-06-27] MEDS: INSULIN GLARGINE SOLOSTAR 100 UNITS/ML 3 ML PEN SC SCH ×2 (07:55→22:01)
[2021-06-27] MEDS: METOPROLOL SUCC 50MG EXT REL TAB PO SCH (07:56)
[2021-06-27] MEDS: THIAMINE HCL 100 MG in SYRINGE 9 ML IV SCH (08:02)
[2021-06-27] MEDS: FOLIC ACID 1 MG in SYRINGE 9.8 ML IV SCH (08:02)
--- NOTE | 2021-06-27 16:22 | Hospitalist Progress Note ---
Date of Service June 27, 2021 Assessment & Plan (1) Alcohol withdrawal syndrome: Plan: (1) Leg swelling: #. Possible acute on chronic diastolic heart failure No DVT on LE us of both legs. Leg swelling improved, b/l crackles improving on chest auscultation. 06/21 echo: EF 55 to 60%, grade 1 diastolic dysfunction. No apparent cellulitis or need for abx at this time. c/w home dose lasix Will need cardio/PCP f/u as OP. (2) Alcohol withdrawal syndrome: Plan: Still tremulous, no tachycardia, hemodynamically stable. Cont Ativan PRN. AWSS protocol Inpatient rehab upon DC. Quite a few recommendations received from Pt's [facility] addiction counselor, appreciate psychiatry recommendations. NH3 level wnl (3) Neuropathy: Plan: chronic, stable. Cont gabapentin per home regimen. (4) Acute kidney injury: Plan: resolved, cont to monitor BMP periodically. #. Other chronic medical conditions: ASCVD, CATALINO, smoking Continue home meds, CPAP nightly, nicotine patch as needed Psychiatry evaluated, DC trazodone and buspar. #. DVT prophylaxis: Lovenox Of note: Per CM, From pt's [facility] Addiction Counselor: Discussion at [place] with [facility] regarding Dewayne. Recommendations are - To talk about Injectable medications for his Bipolar diagnosis because of his history of non compliance. -Check Ammonia levels -Discuss Campral versus Naltrexone due to Dewayne being on Suboxone and reach out to [facility] Provider to see if this is something they would prescribe. -Get some neurological testing done or at least a MMSE or MOCHA exam done by provider on next visit. Discussion regarding if he should have someone become his guardian. Augustus Jones from [facility] is going to research facilities to try to make referral to since Dewayne is willing to go to rehab. Encourage patient to complete a 90 day program to give housing transitions time to get him a place to live Per Psychiatry 06/25: would avoid GUZMAN, Naltrexone is absolute C/I (d/t suboxone), acamprosate as OP, consider MoCA when more sober. At this time, no sense for significant conginitive deficits. Full Code Dispo- Patient agreeable to inpatient rehab to me, communicated with shoe caser. Pt medically stable to DC unless no new issues arise overnight. Admission and Anticipated Discharge Date Admission Date: June 21, 2021 Subjective Patient seen and examined at bedside as a follow-up of alcohol withdrawal syndrome. Patient was lying in bed, on room air, NAD, A and oriented x32 (not to place), is requiring as needed Ativan (decreasing need), denies any fever/headach e/dizziness/chest pain/belly pain/other review of symptoms. Patient reports eating and moving bowels okay. Per RN, pt eating well and no acute event overnight. 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 Patient drinks half a gallon of liquor every day. Physical Exam Physical Exam: GENERAL: AOx3. NAD, on RA. HEENT: No pallor, no icterus. Pupils equal, round and reactive to light. Oral mucosa moist. NECK: No JVD, no neck masses. HEART: S1 and S2 heard. Regular rate and rhythm. No murmur, no gallop. RESPIRATORY SYSTEM: Normal AP diameter. No accessory muscle use. No wheezing, no crackles ABDOMEN: Soft, bowel sounds present, nontender, no distention. CENTRAL NERVOUS SYSTEM: No facial droop. Speech is clear. Obeys simple commands. Moves extremities. EXTREMITIES: No edema, no erythema seen. Results & Data Results & Data ([facility]) Vital Signs (Past 12 Hours) Vital Signs Temp Pulse Pulse Pulse Resp BP BP 06/27/21 15:55 36.5 C 69 18 151/88 H 06/27/21 14:51 80 06/27/21 13:47 36.5 C 75 18 132/80 06/27/21 11:23 36.6 C 72 18 141/84 H 06/27/21 07:14 36.7 C 73 18 151/95 H 06/27/21 04:29 36.5 C 73 20 163/92 H Pulse Ox 06/27/21 15:55 92 06/27/21 14:51 06/27/21 13:47 94 06/27/21 11:23 94 06/27/21 07:14 94 06/27/21 04:29 94
[2021-06-27] MEDS: MIRTAZAPINE TAB 15 MG TAB PO SCH (21:20)
[2021-06-28] MEDS: ACETAMINOPHEN 325 MG TAB PO PRN ×2 (04:45→20:24)
[2021-06-28 06:52] LABS: BUN Creatinine Ratio 32.8 (10-20); Calcium 8.7 mg/dl (8.5-10.1); Creatinine Clr Calc Pharmacy 79.6 ml/min; Est GFR (African American) 73.6 ml/min; Est GFR (Non-African American) 63.5 ml/min; Magnesium 1.8 mg/dl (1.7-2.4); Potassium 4.6 mmol/L (3.5-5.1)
[2021-06-28] MEDS: INSULIN ASPART PER UNIT SC SCH ×4 (07:50→20:23)
[2021-06-28] MEDS: BUPRENORPHINE/NALOXONE 8/2 MG TAB SL SCH ×3 (08:00→20:24)
[2021-06-28] MEDS: ARIPIprazole 1 MG/ML ORAL SOLN 150 ML BTL PO SCH (08:03)
[2021-06-28] MEDS: amLODIPine BESYLATE 5 MG TAB PO SCH (08:03)
[2021-06-28] MEDS: ASPIRIN 81 MG ECTAB PO SCH (08:03)
[2021-06-28] MEDS: CYANOCOBALAMIN (B-12) 500 MCG TABLET PO SCH (08:04)
[2021-06-28] MEDS: ATORVASTATIN 40 MG TAB PO SCH (08:04)
[2021-06-28] MEDS: ENOXAPARIN INJ 40 MG/0.4 ML SYR SQ SCH ×2 (08:04→20:30)
[2021-06-28] MEDS: FOLIC ACID 1 MG in SYRINGE 9.8 ML IV SCH (08:05)
[2021-06-28] MEDS: MAGNESIUM OXIDE 400 MG TAB PO SCH (08:05)
[2021-06-28] MEDS: LOSARTAN POTASSIUM 50 MG TAB PO SCH (08:05)
[2021-06-28] MEDS: FUROSEMIDE 40 MG TAB PO SCH (08:05)
[2021-06-28] MEDS: THIAMINE HCL 100 MG in SYRINGE 9 ML IV SCH (08:06)
[2021-06-28] MEDS: VENLAFAXINE HCL XR 150 MG CAPXR PO SCH (08:06)
[2021-06-28] MEDS: METOPROLOL SUCC 50MG EXT REL TAB PO SCH (08:06)
[2021-06-28] MEDS: NICOTINE POLACRILEX 2 MG GUM MT PRN ×2 (08:07→20:26)
[2021-06-28] MEDS: INSULIN GLARGINE SOLOSTAR 100 UNITS/ML 3 ML PEN SC SCH ×2 (08:08→20:25)
[2021-06-28] MEDS: NICOTINE 21 MG/24 HR TDSY TD SCH (08:09)
--- NOTE | 2021-06-28 14:59 | Hospitalist Progress Note ---
Date of Service June 28, 2021 Assessment & Plan (1) Alcohol withdrawal syndrome: Plan: (1) Leg swelling: #. Possible acute on chronic diastolic heart failure No DVT on LE us of both legs. Leg swelling improved, b/l crackles improving on chest auscultation. 06/21 echo: EF 55 to 60%, grade 1 diastolic dysfunction. No apparent cellulitis or need for abx at this time. c/w home dose lasix Will need cardio/PCP f/u as OP. (2) Alcohol withdrawal syndrome: Plan: Still tremulous, no tachycardia, hemodynamically stable. Cont Ativan PRN. AWSS protocol Inpatient rehab upon DC. Quite a few recommendations received from Pt's [facility] addiction counselor, appreciate psychiatry recommendations. NH3 level wnl (3) Neuropathy: Plan: chronic, stable. Cont gabapentin per home regimen. (4) Acute kidney injury: Plan: resolved, cont to monitor BMP periodically. #. Other chronic medical conditions: ASCVD, CATALINO, smoking Continue home meds, CPAP nightly, nicotine patch as needed Psychiatry evaluated, DC trazodone and buspar. #. DVT prophylaxis: Lovenox Of note: Per CM, [facility] Counselor: Discussion at [place] with [facility] regarding Dewayne. Recommendations are - To talk about Injectable medications for his Bipolar diagnosis because of his history of non compliance. -Check Ammonia levels -Discuss Campral versus Naltrexone due to Dewayne being on Suboxone and reach out to [facility] Provider to see if this is something they would prescribe. -Get some neurological testing done or at least a MMSE or MOCHA exam done by provider on next visit. Discussion regarding if he should have someone become his guardian. Augustus Jones from [facility] is going to research facilities to try to make referral to since Dewayne is willing to go to rehab. Encourage patient to complete a 90 day program to give housing transitions time to get him a place to live Per Psychiatry 06/25: would avoid GUZMAN, Naltrexone is absolute C/I (d/t suboxone), acamprosate as OP, consider MoCA when more sober. At this time, no sense for significant conginitive deficits. Full Code Dispo- Pt interested in inpatient rehab. Pt medically stable to DC unless no new issues arise overnight. Admission and Anticipated Discharge Date Admission Date: June 21, 2021 Subjective Patient seen and examined at bedside as a follow-up of alcohol withdrawal syndr ome. Patient was lying in bed, on room air, NAD, A and oriented x3, denies any fever/headache/dizziness/chest pain/belly pain/other review of symptoms. Patient reports eating and moving bowels okay. Per RN, pt eating well and no acute event overnight. 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 Patient drinks half a gallon of liquor every day. Physical Exam Physical Exam: GENERAL: AOx3. NAD, on RA. HEENT: No pallor, no icterus. Pupils equal, round and reactive to light. Oral mucosa moist. NECK: No JVD, no neck masses. HEART: S1 and S2 heard. Regular rate and rhythm. No murmur, no gallop. RESPIRATORY SYSTEM: Normal AP diameter. No accessory muscle use. No wheezing, no crackles ABDOMEN: Soft, bowel sounds present, nontender, no distention. CENTRAL NERVOUS SYSTEM: No facial droop. Speech is clear. Obeys simple commands. Moves extremities. EXTREMITIES: No edema, no erythema seen. Results & Data Results & Data ([facility]) Vital Signs (Past 12 Hours) Vital Signs Temp Pulse Pulse Resp BP BP Pulse Ox 06/28/21 10:55 36.6 C 77 15 141/84 H 95 06/28/21 08:26 66 06/28/21 07:02 36.6 C 72 15 154/93 H 97 06/28/21 04:38 152/103 H
[2021-06-28] MEDS: MIRTAZAPINE TAB 15 MG TAB PO SCH (20:31)
[2021-06-29] MEDS: ACETAMINOPHEN 325 MG TAB PO PRN ×2 (04:04→13:50)
[2021-06-29 07:04] LABS: Creatinine Clr Calc Pharmacy 69.2 ml/min; Est GFR (Non-African American) 53.5 ml/min; Magnesium 1.9 mg/dl (1.7-2.4); Phosphorus 4.9 mg/dl (2.5-4.9); Potassium 4.4 mmol/L (3.5-5.1)
[2021-06-29] MEDS: LOSARTAN POTASSIUM 50 MG TAB PO SCH (07:33)
[2021-06-29] MEDS: amLODIPine BESYLATE 5 MG TAB PO SCH (07:34)
[2021-06-29] MEDS: INSULIN ASPART PER UNIT SC SCH ×2 (08:40→12:36)
[2021-06-29] MEDS: INSULIN GLARGINE SOLOSTAR 100 UNITS/ML 3 ML PEN SC SCH (08:42)
[2021-06-29] MEDS: ATORVASTATIN 40 MG TAB PO SCH (08:47)
[2021-06-29] MEDS: METOPROLOL SUCC 50MG EXT REL TAB PO SCH (08:48)
[2021-06-29] MEDS: VENLAFAXINE HCL XR 150 MG CAPXR PO SCH (08:48)
[2021-06-29] MEDS: ASPIRIN 81 MG ECTAB PO SCH (08:48)
[2021-06-29] MEDS: CYANOCOBALAMIN (B-12) 500 MCG TABLET PO SCH (08:49)
[2021-06-29] MEDS: BUPRENORPHINE/NALOXONE 8/2 MG TAB SL SCH (09:00)
[2021-06-29] MEDS: ENOXAPARIN INJ 40 MG/0.4 ML SYR SQ SCH (09:01)
[2021-06-29] MEDS: MAGNESIUM OXIDE 400 MG TAB PO SCH (09:01)
[2021-06-29] MEDS: THIAMINE HCL 100 MG in SYRINGE 9 ML IV SCH (09:02)
[2021-06-29] MEDS: FOLIC ACID 1 MG in SYRINGE 9.8 ML IV SCH (09:03)
[2021-06-29] MEDS: NICOTINE 21 MG/24 HR TDSY TD SCH (09:03)
[2021-06-29] MEDS: ARIPIprazole 1 MG/ML ORAL SOLN 150 ML BTL PO SCH (09:20)
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
== END 2021-06-29 15:04 | disposition home or self-care (01) | DRG 291 ==
LOC: ED 04:04 → EDINP 07:09 → SUATTDRO 07:09 → 2S 08:27 → 3W 06-28 20:59

== ENCOUNTER 2021-10-25 18:44 | Inpatient (IN) ==
[2021-10-25] MEDS ORDERED: THIAMINE HCL 200 MG in SODIUM CHLORIDE 0.9% 50 ML IV STA (18:51)
[2021-10-25] MEDS ORDERED: SODIUM CHLORIDE 0.9% 1000ML 1,000 ML IV SCH (19:00)
--- NOTE | 2021-10-25 19:08 | XRay Report ---
XR chest 1V portable CLINICAL HISTORY: weakness. Evaluate cardiopulmonary status 09/14/2021 COMPARISON STUDY: No previous studies for comparison. TECHNIQUE: 1 view of the chest FINDINGS: Single frontal view of the chest demonstrates the cardiomediastinal silhouette to be within normal li mits. The lungs are clear of alveolar opacities. There is no evidence for pleural effusion. There is no evidence for vascular congestion. There is no acute osseous pathology. IMPRESSION: 1. No acute cardiopulmonary disease. ACT 112: Negative or not required by law. Electronically signed by: Jonny Mccloud M.D. 10/25/2021 7:07 PM
--- NOTE | 2021-10-25 19:19 | Emergency Department Note ---
Impression & Plan ONDINA (acute kidney injury), Acute dehydration ED Provider Note NAME: CARLOS NGO AGE: 56 SEX: M : 1965 ARRIVES VIA: Ambulance INFORMANT: Patient, EMS ED PROVIDER(S): Maurice Kate DO CHIEF COMPLAINT: Weakness HPI: The patient is a 56-year-old male who presented to the emergency department by ambulance for evaluation of dehydration. The patient has a history of chronic alcohol abuse. He states he has been drinking recently. He did strike his head after a fall within the last few days. He has a small abrasion on his forehead reported by the prehospital personnel. He denies having any neck pain. He denies having any weakness. He states he is noticed some bilateral flank pain and sometimes gets this way when he is dehydrated. He does have a history of kidney issues. He denies having any hematuria. He denies having any fever. He denies having any chest pain or difficulty breathing at this time. The [place] states has been compliant with his outpatient medications but he was outside of homeless retirement passed out in a vehicle and this is why he was brought to the emergency department. ROS: See above HPI for pertinent positives & negatives. A total of 10 systems reviewed and were otherwise negative. PAST MEDICAL HISTORY: See Below PAST SURGICAL HISTORY: See Below FAMILY HISTORY: See Below SOCIAL HISTORY: See Below HOME MEDICATIONS: See Below ALLERGIES: See Below VITALS: See Below PHYSICAL EXAMINATION: GENERAL: Patient is awake alert in no acute distress patient is resting comfortably and showing no signs of anxiety EYES: The conjunctivae are clear. The pupils are round and reactive. EARS, NOSE, MOUTH AND THROAT: The nose is without any evidence of any deformity. NECK: The neck is nontender and supple. Cervical spine was clinically cleared in the emergency department. RESPIRATORY: Normal respiratory effort is noted there is no evidence of wheezing rhonchi or rales CARDIOVASCULAR: Regular rate and rhythm noted there no murmurs rubs or gallops normal S1 normal S2. GASTROINTESTINAL: The abdomen is soft. Abdomen is nontender. BACK: No midline tenderness was noted. Range of motion appears intact. MUSCULOSKELETAL/EXTREMITIES: There is no evidence of gross deformity full range of motion is noted in the hips and shoulders. SKIN: Pedal edema was noted bilaterally. Venous stasis changes were also noted. Skin was warm and dry. There is a horizontal abrasion to the forehead. There is no active bleeding or full-thickness laceration. NEUROLOGIC: Patient is awake alert and oriented x3 strength is symmetric patellar reflexes are 2+ bilaterally MEDICAL DECISION MAKING: The patient is a 56-year-old male who presented to the emergency department for evaluation of dehydration. The patient was sleeping in a car outside of a homeless retirement. He states he was waiting to go inside. He was also noted to have an injury to his forehead which he states occurred after a fall. The patient was treated with IV fluids in the emergency department. I discussed the patient's laboratory and radiographic studies with him. Ultimately he was found to have a significant elevation in his creatinine compared to baseline. I [facility] his [facility] They have agreed to evaluate the patient in the emergency department for further management and disposition. Triage Nursing notes reviewed. Prior medical records reviewed Vital Signs: reviewed and remarkable for elevated blood pressure. Differential diagnosis: Infection, dehydration, metabolic abnormality, hypo/hyperglycemia, electrolyte disturbance, anemia, hypoxia, cardiac sources, intracerebral event, toxicologic, neurologic, as well as other pathologies. ER treatment provided: See below Diagnostics interpreted by me: ECG: EKG was obtained in the emergency department. My interpretation is sinus tachycardia 103 bpm. Frequent PVCs were noted. Lateral ST depressions were also appreciated. This was compared to a tracing from September 14, 2021. No changes were noted. Cardiac Monitoring: An order was placed for continuous cardiac monitoring. The monitor shows a rate of 87 bpm with sinus rhythm. Laboratory studies: As stated above and show below. Imaging studies: See below Consultation(s): I discussed this case with Dr. Payne is on-call [facility]. Past Med/Surg History Medical History Alcohol abuse Alcohol use disorder Alcohol use disorder, severe, dependence Alcohol withdrawal syndrome Bilateral edema of lower extremity Chronic anemia Diabetes mellitus type 2 with complications TONEY (dyspnea on exertion) Edema Elevated troponin HTN (hypertension) Mood disorder Neuropathy NSTEMI (non-ST elevated myocardial infarction) Obesity CATALINO (obstructive sleep apnea) CATALINO (obstructive sleep apnea) Proteinuria Smoking Tobacco use disorder Type 2 diabetes mellitus Surgical History History of cardiac catheterization 1 ELIESER to proximal OM by Dr. Guerrero on 01/01/19 History of lymph node biopsy Family History Other Diabetes Heart disease Hypertension Social History Smoking Status: Current every day smoker Tobacco Type: Cigarettes Years Smoked: 39; Cigarettes Per Day: 20; Second Hand Exposure: Yes; Hx Alcohol Use: Yes Alcohol type: hard liquor Alcohol type Comment: 1/2 gallon vodka a day Hx Substance Use: Yes Last Used Substance: Unknown Last Used Substance Other:: years Substance Use Type Other:: patient said "I've used it all" Preferred Language: Turkmen Communication Ability: Effective Hand Mixer Required: No Beliefs That Will Affect Care: None marital status: Single Current Living Situation: Homeless Current Living Situation Comment: in car and various churches/shelters current occupational status: unemployed How many Children do You have: 2 Feels Safe at Home: Yes Assistive Devices: None Allergies Allergies Allergy/AdvReac Type Severity Reaction Status Date / Time No Known Allergies Allergy Verified 10/25/21 22:53 Home Meds Home Medications Medication Instructions Recorded Confirmed buprenorphine 8 mg-naloxone 2 mg 1 tab sublingual BID 09/15/21 10/25/21 sublingual tablet amlodipine 5 mg tablet 5 mg PO QAM 10/25/21 10/25/21 aripiprazole 2 mg tablet 2 mg PO QAM 10/25/21 10/25/21 aspirin 81 mg tablet,delayed 81 mg PO QAM 10/25/21 10/25/21 release atorvastatin 80 mg tablet 80 mg PO QAM 10/25/21 10/25/21 buspirone 10 mg tablet 10 mg PO QAM 10/25/21 10/25/21 empagliflozin 10 mg tablet 10 mg PO QAM 10/25/21 10/25/21 folic acid 1 mg tablet 1 mg PO QAM 10/25/21 10/25/21 furosemide 40 mg tablet 40 mg PO QAM 10/25/21 10/25/21 gabapentin 300 mg capsule 300 mg PO QID 10/25/21 10/25/21 glipizide 10 mg tablet, extended 10 mg PO QAM 10/25/21 10/25/21 release 24 hr losartan 50 mg tablet 100 mg PO QAM 10/25/21 10/25/21 metformin 500 mg tablet,extended 500 mg PO QAM 10/25/21 10/25/21 release 24hr metoprolol succinate 50 mg 50 mg PO DAILY 10/25/21 10/25/21 tablet,extended release 24 hr mirtazapine 15 mg tablet 15 mg PO HS 10/25/21 10/25/21 naloxone 4 mg/actuation nasal 4 mg intranasal DAILY PRN overdose 10/25/21 10/25/21 spray (Narcan) nitroglycerin 0.4 mg sublingual 0.4 mg sublingual .EVERY 15 MIN 10/25/21 10/25/21 tablet PRN Chest Pain thiamine HCl (vitamin B1) 100 mg 100 mg PO QAM 10/25/21 10/25/21 tablet trazodone 100 mg tablet 100 mg PO HS PRN Sleep 10/25/21 10/25/21 triamcinolone acetonide 0.1 % 1 applic topical BID 10/25/21 10/25/21 topical ointment Results & Data (ED) Vital Signs Vital Signs - 24 hr 10/25/21 18:53 10/25/21 19:22 10/25/21 20:23 Temperature 37.2 C Temperature Source Oral Pulse Rate 89 Pulse Rate [Finger] 94 H Pulse Rhythm [Finger] Regular Pulse Strength [Finger] Normal Respiratory Rate 18 20 Respiratory Effort / Characteristics Non-Labored Spontaneous Non-Labored Spontaneous Respiratory Depth Normal Normal Respiratory Pattern Regular Blood Pressure 113/65 Blood Pressure [Right Arm] 137/75 Blood Pressure Mean 81 Blood Pressure Mean [Right Arm] 95 Blood Pressure Position Sitting Blood Pressure Position [Right Arm] Pulse Oximetry 95 95 92 Oxygen Delivery Method Room Air Sepsis Recent Fever Within 48 Hours No Sepsis New/Unexplained Change in Mental Status No Sepsis Action Taken by Nursing No Action Required 10/25/21 21:54 Temperature Temperature Source Pulse Rate Pulse Rate [Finger] 87 Pulse Rhythm [Finger] Regular Pulse Strength [Finger] Normal Respiratory Rate 18 Respiratory Effort / Characteristics Non-Labored Spontaneous Respiratory Depth Normal Respiratory Pattern Blood Pressure Blood Pressure [Right Arm] 154/79 H Blood Pressure Mean Blood Pressure Mean [Right Arm] 104 Blood Pressure Position Blood Pressure Position [Right Arm] Sitting Pulse Oximetry 92 Oxygen Delivery Method Room Air Sepsis Recent Fever Within 48 Hours Sepsis New/Unexplained Change in Mental Status Sepsis Action Taken by [facility] Medications Current Medication List: was personally reviewed by me Laboratory Data Attestation: I reviewed the patient's lab results. Result diagrams: 10/25/21 19:15 10/25/21 19:15 Lab Results 10/25/21 10/25/21 10/25/21 Range/Units 19:15 19:15 19:15 WBC 4.74 L (4.8-10.8) K/ul RBC 3.63 L (4.63-6.08) M/uL Hgb 11.4 L (14.0-18.0) g/dl Hct 34.9 L (40.1-51.0) % MCV 96.1 (80.0-100.0) fL MCH 31.4 (25.0-34.0) pg MCHC 32.7 (32.0-36.0) g/dL RDW Std Deviation 46.6 H (36.4-46.3) fL RDW Coeff of Alberto 13.2 (11.5-14.5) % Plt Count 160 (130-400) K/uL MPV 10.1 (9.4-12.4) fL Immature Gran % (Auto) 0.2 % Neut % (Auto) 52.2 % Lymph % (Auto) 29.7 % Wy[place] % (Auto) 15.4 % Eos % (Auto) 1.7 % Baso % (Auto) 0.8 % Neut # (Auto) 2.47 (1.4-6.5) K/uL Lymph # (Auto) 1.41 (1.2-3.4) K/uL [place] # (Auto) 0.73 (0.24-0.82) K/uL Eos # (Auto) 0.08 (0-0.50) K/uL Baso # (Auto) 0.04 (0-0.2) K/uL Immature Gran # (Auto) 0.01 (0.00-0.02) K/uL PT 11.1 (9.0-12.0) Seconds INR 1.0 (0.9-1.1) APTT 32.9 H (21.0-31.0) Seconds PTT Ratio 1.2 Sodium 138 (136-145) mmol/L Potassium 4.3 (3.5-5.1) mmol/L Chloride 104 (98-107) mmol/L Carbon Dioxide 26 (21-32) mmol/L Anion Gap 8 (3-11) BUN 53 H (6-23) mg/dl Creatinine 2.71 H (0.6-1.4) mg/dl Est Cr Clr Drug Dosing 36.9 ml/min Est GFR ( Amer) 28.9 ml/min Est GFR (Non-Af Amer) 24.9 ml/min BUN/Creatinine Ratio 19.6 (10-20) Glucose 284 H (70-99(Fasting)) mg/dl Calcium 9.1 (8.5-10.1) mg/dl Magnesium 2.3 (1.7-2.4) mg/dl Total Bilirubin 0.5 (0.2-1.0) mg/dl AST 52 H (13-39) U/L ALT 43 (7-52) U/L Alkaline Phosphatase 95 (34-104) U/L Total Creatine Kinase 483 H (30-223) U/L Troponin I High Sens 11.6 D (0-20) pg/ml Total Protein 6.9 (6.0-8.3) gm/dl Albumin 3.1 L (3.4-5.0) gm/dl Globulin 3.8 (2.5-4.0) gm/dl Albumin/Globulin Ratio 0.8 L (0.9-2) TSH (0.300-4.500) uIu/ml 10/25/21 Range/Units 19:15 WBC (4.8-10.8) K/ul RBC (4.63-6.08) M/uL Hgb (14.0-18.0) g/dl Hct (40.1-51.0) % MCV (80.0-100.0) fL MCH (25.0-34.0) pg MCHC (32.0-36.0) g/dL RDW Std Deviation (36.4-46.3) fL RDW Coeff of Alberto (11.5-14.5) % Plt Count (130-400) K/uL MPV (9.4-12.4) fL Immature Gran % (Auto) % Neut % (Auto) % Lymph % (Auto) % Wy[place] % (Auto) % Eos % (Auto) % Baso % (Auto) % Neut # (Auto) (1.4-6.5) K/uL Lymph # (Auto) (1.2-3.4) K/uL Wy[place] # (Auto) (0.24-0.82) K/uL Eos # (Auto) (0-0.50) K/uL Baso # (Auto) (0-0.2) K/uL Immature Gran # (Auto) (0.00-0.02) K/uL PT (9.0-12.0) Seconds INR (0.9-1.1) APTT (21.0-31.0) Seconds PTT Ratio Sodium (136-145) mmol/L Potassium (3.5-5.1) mmol/L Chloride (98-107) mmol/L Carbon Dioxide (21-32) mmol/L Anion Gap (3-11) BUN (6-23) mg/dl Creatinine (0.6-1.4) mg/dl Est Cr Clr Drug Dosing ml/min Est GFR ( Amer) ml/min Est GFR (Non-Af Amer) ml/min BUN/Creatinine Ratio (10-20) Glucose (70-99(Fasting)) mg/dl Calcium (8.5-10.1) mg/dl Magnesium (1.7-2.4) mg/dl Total Bilirubin (0.2-1.0) mg/dl AST (13-39) U/L ALT (7-52) U/L Alkaline Phosphatase (34-104) U/L Total Creatine Kinase (30-223) U/L Troponin I High Sens (0-20) pg/ml Total Protein (6.0-8.3) gm/dl Albumin (3.4-5.0) gm/dl Globulin (2.5-4.0) gm/dl Albumin/Globulin Ratio (0.9-2) TSH 2.697 (0.300-4.500) uIu/ml Administered Medications Discontinued Medications Sodium Chloride (Nss 1000ml) 1,000 mls @ 999 mls/hr IV .Q1H1M LUCINDA Stop: 10/25/21 20:00 Last Infusion: 10/25/21 20:30 Dose: 0 mls/hr Documented By: Admin: 10/25/21 19:32 Dose: 999 mls/hr Documented By: EDYTA Thiamine HCl 200 mg/ Sodium (Chloride) 52 mls @ 208 mls/hr IV NOW STA Stop: 10/25/21 18:52 Last Admin: 10/25/21 21:54 Dose: 208 mls/hr Documented By: EDYTA Sodium Chloride (Nss 1000ml) 1,000 mls @ 999 mls/hr IV .Q1H1M ONE Stop: 10/25/21 21:23 Last Infusion: 10/25/21 21:54 Dose: 0 mls/hr Documented By: Admin: 10/25/21 20:31 Dose: 999 mls/hr Documented By: EDYTA Imaging Data Radiologist's Impression: Chest X-Ray 10/25/21 18:50 XR chest 1V portable CLINICAL HISTORY: weakness. Evaluate cardiopulmonary status 09/14/2021 COMPARISON STUDY: No previous studies for comparison. TECHNIQUE: 1 view of the chest FINDINGS: Single frontal view of the chest demonstrates the cardiomediastinal silhouette to be within normal limits. The lungs are clear of alveolar opacities. There is no evidence for pleural effusion. There is no evidence for vascular congestion. There is no acute osseous pathology. IMPRESSION: 1. No acute cardiopulmonary disease. ACT 112: Negative or not required by law. Electronically signed by: Jonny Mccloud M.D. 10/25/2021 7:[address] 10/25/21 18:50 CT head/brain wo con CLINICAL HISTORY: fall with bruising to the forehead COMPARISON STUDY: 05/28/2021 CT DOSE: 691.05 mGy.cm TECHNIQUE: Standard CT of the Brain was performed without IV contrast. A dose lowering technique was utilized adhering to the principles of ALARA. FINDINGS: Extraaxial space: There is no evidence for subdural hematoma. There are no extra-axial fluid collections. Ventricles and cisterns: The ventricles are normal in size and configuration. There is no evidence for midline shift or mass effect. Parenchyma: There is no subarachnoid or intraparenchymal hemorrhage. There is no evidence for an acute infarct or cerebral edema. There is homogeneous attenuation of the brain parenchyma. There are no gross mass lesions. Osseous structures: There is no evidence for an acute fracture. Only mild residu al mucosal thickening is seen involving the maxillary antra bilaterally. The remaining visualized paranasal sinuses are clear. The mastoid air cells are clear bilaterally. Soft tissues: There is no evidence for focal soft tissue swelling. IMPRESSION: 1. No acute intracerebral pathology. 2. Mild residual bilateral maxillary sinusitis. ACT 112: Negative or not required by law. Electronically signed by: Jonny Mccloud M.D. 10/25/2021 8:09 PM Discharge Plan Visit Data Chief Complaint: Dehydration Stated Complaint: DEHYDRATION ED Provider: Maurice Kate Discharge Problem: ONDINA (acute kidney injury), Acute dehydration Patient Disposition: Being Evaluated by Hospitalist Forms Stand Alone Forms: My [facility] Prescriptions Prescriptions: No Action losartan 50 mg tablet 100 mg PO QAM furosemide 40 mg tablet 40 mg PO QAM thiamine HCl (vitamin B1) 100 mg Tablet 100 mg PO QAM nitroglycerin 0.4 mg tablet, sublingual 0.4 mg sublingual .EVERY 15 MIN MDD 3 doses in 15 minutes PRN (Reason: Chest Pain) folic acid 1 mg Tablet 1 mg PO QAM metoprolol succinate 50 mg tablet extended release 24 hr 50 mg PO DAILY amlodipine 5 mg tablet 5 mg PO QAM mirtazapine 15 mg Tablet 15 mg PO HS empagliflozin 10 mg Tablet 10 mg PO QAM glipizide 10 mg Tablet Extended Release 24hr 10 mg PO QAM triamcinolone acetonide 0.1 % ointment 1 applic TOPICAL BID Rx Instructions: apply to bilateral forearms till better metformin 500 mg Tablet Extended Release 24hr 500 mg PO QAM atorvastatin 80 mg tablet 80 mg PO QAM aspirin [Aspirin Low-Strength] 81 mg Tablet,Delayed Release (Dr/Ec) 81 mg PO QAM trazodone 100 mg Tablet 100 mg PO HS PRN (Reason: Sleep) buspirone 10 mg Tablet 10 mg PO QAM gabapentin 300 mg capsule 300 mg PO QID aripiprazole 2 mg Tablet 2 mg PO QAM naloxone [Narcan] 4 mg/actuation [place],Non-Aerosol 4 mg INTRANASAL DAILY PRN (Reason: overdose) buprenorphine-naloxone 8-2 mg tablet, sublingual 1 tab SUBLINGUAL BID Referrals Referrals: Charity Reed MD [Primary Care Provider] -
[2021-10-25 19:28] LABS: Basophils # (auto) 0.04 K/uL (0-0.2); Basophils % (auto) 0.8 %; Eosinophils # (auto) 0.08 K/uL (0-0.50); Eosinophils % (auto) 1.7 %; Hematocrit (blood only) 34.9 % (40.1-51.0); Hemoglobin 11.4 g/dl (14.0-18.0); Immature Granulocytes # (auto) 0.01 K/uL (0.00-0.02); Immature Granulocytes % (auto) 0.2 %; Lymphocytes # (auto) 1.41 K/uL (1.2-3.4); Lymphocytes % (auto) 29.7 %; Mean Corpuscular Hemoglobin 31.4 pg (25.0-34.0); Mean Corpuscular Hgb Conc 32.7 g/dL (32.0-36.0); Mean Corpuscular Volume 96.1 fL (80.0-100.0); Mean Platelet Volume 10.1 fL (9.4-12.4); Monocytes # (auto) 0.73 K/uL (0.24-0.82); Monocytes % (auto) 15.4 %; Neutrophils # (auto) 2.47 K/uL (1.4-6.5); Neutrophils % (auto) 52.2 %; Platelet Count 160 K/uL (130-400); RDW Coefficient of Variation 13.2 % (11.5-14.5); RDW Standard Deviation 46.6 fL (36.4-46.3); Red Blood Count 3.63 M/uL (4.63-6.08); White Blood Count 4.74 K/ul (4.8-10.8)
[2021-10-25 19:50] LABS: Albumin Globulin Ratio 0.8 (0.9-2); Albumin Level 3.1 gm/dl (3.4-5.0); BUN Creatinine Ratio 19.6 (10-20); Bilirubin,Total 0.5 mg/dl (0.2-1.0); Calcium 9.1 mg/dl (8.5-10.1); Creatinine Clr Calc Pharmacy 36.9 ml/min; Est GFR (African American) 28.9 ml/min; Est GFR (Non-African American) 24.9 ml/min; Globulin 3.8 gm/dl (2.5-4.0); Magnesium 2.3 mg/dl (1.7-2.4); Potassium 4.3 mmol/L (3.5-5.1); Total Protein 6.9 gm/dl (6.0-8.3)
[2021-10-25 19:55] LABS: Troponin I High Sensitivity 11.6 pg/ml (0-20)
--- NOTE | 2021-10-25 20:11 | CT Scan Report ---
CT head/brain wo con CLINICAL HISTORY: fall with bruising to the forehead COMPARISON STUDY: 05/28/2021 CT DOSE: 691.05 mGy.cm TECHNIQUE: Standard CT of the Brain was performed without IV contrast. A dose lowering technique was utilized adhering to the principles of ALARA. FINDINGS: Extraaxial space: There is no evidence for subdural hematoma. There are no extra-axial fluid collecti ons. Ventricles and cisterns: The ventricles are normal in size and configuration. There is no evidence fo r midline shift or mass effect. Parenchyma: There is no subarachnoid or intraparenchymal hemorrhage. There is no evidence for an acut e infarct or cerebral edema. There is homogeneous attenuation of the brain parenchyma. There are no g ross mass lesions. Osseous structures: There is no evidence for an acute fracture. Only mild residual mucosal thickening is seen involving the maxillary antra bilaterally. The remaining visualized paranasal sinuses are cl ear. The mastoid air cells are clear bilaterally. Soft tissues: There is no evidence for focal soft tissue swelling. IMPRESSION: 1. No acute intracerebral pathology. 2. Mild residual bilateral maxillary sinusitis. ACT 112: Negative or not required by law. Electronically signed by: Jonny Mccloud M.D. 10/25/2021 8:09 PM
[2021-10-25 20:21] LABS: Partial Thromboplastin Ratio 1.2; Partial Thromboplastin Time 32.9 Seconds (21.0-31.0); Prothrombin Time 11.1 Seconds (9.0-12.0)
[2021-10-25] MEDS ORDERED: SODIUM CHLORIDE 0.9% 1000ML 1,000 ML IV ONE (20:23)
[2021-10-26] MEDS ORDERED: LORazepam 3 MG in SYRINGE 1.5 ML IV PRN (00:04)
[2021-10-26] MEDS ORDERED: MULTI-VITAMIN INFUSION 10 ML, THIAMINE HCL 100 MG, FOLIC ACID 1 MG in SODIUM CHLORIDE 0... IV ONE (00:04)
[2021-10-26] MEDS ORDERED: chlordiazePOXIDE ALCOHOL WITHDRAWL 50MG PO STA (00:04)
[2021-10-26] MEDS ORDERED: Ativan IV Alcohol Withdrawal--Active Protocol IV PRN (00:04)
[2021-10-26] MEDS ORDERED: LORazepam 2 MG in SYRINGE 1 ML IV PRN (00:04)
[2021-10-26] MEDS ORDERED: LORazepam 1 MG in SYRINGE 0.5 ML IV PRN (00:04)
[2021-10-26] MEDS ORDERED: POLYETHYLENE (MIRALAX) 17 GM PACK PO PRN (00:04)
[2021-10-26] MEDS ORDERED: NALOXONE NASAL SPRAY 4 MG ER HOMEPACK PRN (00:04)
[2021-10-26] MEDS ORDERED: NITROGLYCERIN SL 0.4 MG/TAB TAB SL PRN (00:04)
[2021-10-26] MEDS ORDERED: cefTRIAXone SODIUM 2,000 MG in DEXTROSE 5% 50 ML IV SCH (00:30)
[2021-10-26] MEDS: chlordiazePOXIDE HCl 25 MG CAP PO SCH ×3 (01:30→15:00)
[2021-10-26] MEDS ORDERED: NALOXONE HCL 0.4 MG/1 ML VIAL/CARP IV PRN (01:54)
--- NOTE | 2021-10-26 01:56 | History and Physical Report ---
DATE OF ADMISSION: 10/25/2021. CHIEF COMPLAINT: Fall, ONDINA, alcoholism. HISTORY OF PRESENT ILLNESS: This is a 56-year-old male with past medical history significant for type 2 diabetes, chronic kidney disease stage III, hyperlipidemia, ongoing tobacco abuse, ongoing alcoholism, emphysema, obstructive sleep apnea, noncompliant with CPAP, hypertension, CAD, fatty liver, depression, anxiety disorder, history of anemia, currently living in an hotel as per patient presents because he fell a couple of days ago from the chair while sleeping, he hit his head, some headache and neck pain, had some abrasion on the head. He thought he is getting dehydrated and it seems that he passed out in a vehicle. He was brought into the Emergency Department. Currently, somewhat drowsy. States he is drinking one-fifth of vodka every day, smoking 1 pack of cigarettes daily. Has some blurred vision, has some dizziness, no runny nose. He is having some sore throat and coughing. Denies any chest pain. No shortness of breath, no nausea, no abdominal pain. Did not move his bowels for last 4 days. Normal bladder movements, hemodynamically stable. ALLERGIES: No known drug allergies. PAST MEDICAL HISTORY: As mentioned above. PAST SURGICAL HISTORY: Colonoscopy. MEDICATIONS: The patient is on amlodipine 5 mg p.o. a.m., aripiprazole 2 mg p.o. a.m., aspirin 81 mg p.o. a.m., atorvastatin 80 mg p.o. a.m., buprenorphine naloxone one tablet sublingual b.i.d., buspirone 10 mg p.o. a.m., empagliflozin 10 mg p.o. a.m., folic acid 1 mg p.o. daily, Lasix 40 mg p.o. daily, gabapentin 300 mg p.o. q.i.d., glipizide 10 mg p.o. a.m., losartan 100 mg p.o. a.m., metformin 500 mg p.o. a.m., metoprolol succinate 50 mg p.o. daily, Remeron 15 mg p.o. at bedtime, Narcan 4 mg intranasal daily p.r.n., nitroglycerin 0.4 mg sublingual p.r.n., thiamine 100 mg p.o. daily, trazodone 50 mg p.o. at bedtime p.r.n., triamcinolone topical b.i.d. FAMILY HISTORY: Significant for paternal grandmother has diabetes; paternal grandfather has heart disorder; maternal grandmother has heart disorder. SOCIAL HISTORY: Single, smokes 1 pack a day of cigarettes for the last 40 years. Alcohol drinking. As per Epic, he drinks 3 gallons of vodka daily, but currently, he is saying he is drinking an average one-fifth of vodka every day. As per Epic, no drug use. REVIEW OF SYSTEMS: As per HPI. Rest of the review of systems is negative. PHYSICAL EXAMINATION: GENERAL: The patient is drowsy, not in acute distress. VITAL SIGNS: Temperature 37.2, pulse 86, respiratory rate 20, blood pressure 147/84, oxygen 92% on room air. HEENT: Some bruising on the forehead. Pupils equal, round and reactive to light. Oral mucosa moist. NECK: No JVD, no neck masses. CARDIOVASCULAR: S1 and S2 heard. Regular rate and rhythm. No murmur, no gallop. RESPIRATORY SYSTEM: Normal AP diameter. No accessory muscle use. No wheezing, no crackles. ABDOMEN: Soft, bowel sounds present, nontender, no distention. CENTRAL NERVOUS SYSTEM: Alert and oriented. Speech is clear. Obeys simple commands. No facial droop. Moves extremities. EXTREMITIES: Bilateral lower extremity edema present and erythematous changes seen and somewhat warm to touch. LABORATORY DATA: WBC 4.7, hemoglobin 11.4, hematocrit 34.9, platelets 160. PT 11.1, INR 1, APTT 32.9. Sodium 138, potassium 4.3, chloride 104, bicarbonate 26, BUN 53, creatinine 2.7, serum glucose 284, calcium 9.1, magnesium 2.3, total bilirubin 0.5, AST 52, ALT 53, alkaline phosphatase 95. Total creatine kinase 483. Troponin I high sensitivity 11.6. TSH is 2.6. IMAGING DATA: CT of the head, no acute findings, mild residual bilateral maxillary sinusitis. Chest x-ray, no acute findings. EKG: Sinus tachycardia with frequent PVCs, rate of 103. ASSESSMENT AND PLAN: This is a 56-year-old male with alcoholism and also with ongoing tobacco abuse, presents with fall and dehydration and found to have acute kidney injury. 1. Fall: Could be from his alcoholism. PT, OT when stable. CT of head is unremarkable. We will monitor in the hospital for possible dehydration. We will check orthostatics. 2. Acute kidney injury: Presented with creatinine of 2.7. We will hold, Lasix, losartan. Getting fluids. We will follow the repeat labs. 3. Diabetes: Hold his home medication. Place him on Lantus and insulin sliding scale, follow the blood sugars, follow HbA1c levels. 4. Mild elevation of total creatine kinase: We will follow the repeat labs in the a.m. 5. Alcoholism: He says he is currently drinking a fifth of vodka every day. We will give banana bag. Continue his home p.o. thiamine and folic acid, and place him on Librium protocol and IV Ativan p.r.n. Monitor closely for withdrawals. 6. Tobacco abuse: Place on nicotine patch. 7. Chronic diastolic congestive heart failure and lower extremity edema. Getting fluids. Holding Lasix and holding losartan. Monitor for volume overload. 8. Lower extremity edema with some erythematous changes with warm to touch: We will rule out DVT. Empirically started on Rocephin for possible cellulitis. 9. Obstructive sleep apnea: Noncompliance with CPAP, 10. Depression, generalized anxiety disorder: Continue buspirone, aripiprazole, Remeron, trazodone. 11. Hypertension: On metoprolol and amlodipine. Holding losartan.monitor the blood pressure. 12. History of coronary artery disease. Continue his beta arnold, aspirin and statin. 13. Polyneuropathy: Continue gabapentin. 14. Chronic pain. Continue home pain meds. 15. The patient has a history of substance abuse: We will check a urine drug screen. 16. Deep venous thrombosis prophylaxis: Placed on heparin subcutaneous. DISPOSITION: Closely monitor in the med tele. PT/OT prior to discharge. Social service to help with discharge planning Job ID: [id number]
[2021-10-26] MEDS: SODIUM CHLORIDE 0.9% 1000ML 1,000 ML IV SCH ×2 (04:14→14:52)
[2021-10-26 06:34] LABS: Basophils # (auto) 0.02 K/uL (0-0.2); Basophils % (auto) 0.5 %; Eosinophils % (auto) 2.5 %; Hematocrit (blood only) 33.8 % (40.1-51.0); Hemoglobin 10.8 g/dl (14.0-18.0); Immature Granulocytes # (auto) 0.01 K/uL (0.00-0.02); Immature Granulocytes % (auto) 0.3 %; Lymphocytes # (auto) 1.36 K/uL (1.2-3.4); Lymphocytes % (auto) 34.6 %; Mean Platelet Volume 9.8 fL (9.4-12.4); Monocytes # (auto) 0.57 K/uL (0.24-0.82); Monocytes % (auto) 14.5 %; Neutrophils # (auto) 1.87 K/uL (1.4-6.5); Neutrophils % (auto) 47.6 %; Platelet Count 126 K/uL (130-400); White Blood Count 3.93 K/ul (4.8-10.8)
--- NOTE | 2021-10-26 06:41 | Ultrasound Report ---
BILATERAL LOWER EXTREMITY VENOUS DOPPLER HISTORY: Acute pain and swelling of the lower extremities swelling and erythema b/l lower extremity. DVT? COMPARISON STUDY: Doppler study 06/21/2021 FINDINGS: There is normal compressibility, flow, and augmentation within the bilateral lower extremit y deep venous systems. Right inguinal chain lymph nodes measure up to 3.1 x 1.2 x 2.6 cm. Left inguin al chain lymph nodes measure up to 2.8 x 1.0 x 2.4 cm. These are likely benign and demonstrate thin c ortices with central fatty marlon. IMPRESSION: No DVT within the right or left lower extremity. ACT 112: Negative or not required by law. Electronically signed by: Suhas Ramos M.D. 10/26/2021 6:40 AM
[2021-10-26 06:56] LABS: Mean Corpuscular Hemoglobin 31.3 pg (25.0-34.0); RDW Coefficient of Variation 13.4 % (11.5-14.5); RDW Standard Deviation 47.6 fL (36.4-46.3); Red Blood Count 3.45 M/uL (4.63-6.08)
[2021-10-26 06:57] LABS: Albumin Level 2.7 gm/dl (3.4-5.0); BUN Creatinine Ratio 23.5 (10-20); Bilirubin,Total 0.4 mg/dl (0.2-1.0); Creatinine Clr Calc Pharmacy 54.3 ml/min; Est GFR (African American) 45.2 ml/min; Magnesium 2.1 mg/dl (1.7-2.4); Potassium 4.4 mmol/L (3.5-5.1); Total Protein 6.1 gm/dl (6.0-8.3)
[2021-10-26 07:37] LABS: Estimated Average Glucose 174 mg/dl; Hemoglobin A1C 7.7 % (4.5-5.6)
[2021-10-26 09:19] LABS: Appearance Urine Clear (Clear); Bacteria Urine Automated Negative (Negative); Bilirubin Urine Negative (Negative); Blood Urine Negative (Negative); Color Urine Yellow; Glucose Urine UA 3+ (Negative); Ketones Urine Negative (Negative); Leukocyte Esterase Urine Negative (Negative); Nitrite Urine Negative (Negative); Protein Urine 3+ (Negative); RBC Urine Automated 0-4 /hpf (0-4); Urobilinogen Urine Negative (Negative)
[2021-10-26] MEDS: GABAPENTIN 300 MG CAP PO SCH ×3 (09:24→21:23)
[2021-10-26] MEDS: ACETAMINOPHEN 325 MG TAB PO PRN ×3 (09:24→21:54)
[2021-10-26] MEDS: NICOTINE 21 MG/24 HR TDSY TD SCH (09:25)
[2021-10-26] MEDS: FOLIC ACID 1 MG TAB PO SCH (09:25)
[2021-10-26] MEDS: THIAMINE HCL 100 MG TAB PO SCH (09:25)
[2021-10-26] MEDS: busPIRone 5 MG TAB PO SCH (09:25)
[2021-10-26] MEDS: traZODone HCL 100 MG TAB PO PRN ×2 (09:25→22:38)
[2021-10-26] MEDS: METOPROLOL SUCC 50MG EXT REL TAB PO SCH (09:25)
[2021-10-26] MEDS: ASPIRIN 81 MG ECTAB PO SCH (09:25)
[2021-10-26] MEDS: ATORVASTATIN 40 MG TAB PO SCH (09:26)
[2021-10-26] MEDS: amLODIPine BESYLATE 5 MG TAB PO SCH (09:26)
[2021-10-26] MEDS: ARIPIprazole 1 MG/ML ORAL SOLN 150 ML BTL PO SCH (09:26)
[2021-10-26] MEDS: ENOXAPARIN INJ 40 MG/0.4 ML SYR SQ SCH ×2 (09:27→21:24)
[2021-10-26] MEDS: TRIAMCINOLONE ACET 0.1% OINT 15 GM TUBE TOP SCH ×2 (09:27→21:25)
[2021-10-26] MEDS: INSULIN ASPART PER UNIT SC SCH ×4 (09:31→21:55)
[2021-10-26] MEDS: BUPRENORPHINE/NALOXONE 8/2 MG TAB SL SCH ×2 (09:31→21:54)
[2021-10-26] MEDS: LANTUS PER UNIT CHARGE SQ SCH (09:32)
[2021-10-26 09:54] LABS: Amphetamines+Metham, Urine Pos (Neg); Barbiturates, Urine Neg (Neg); Benzodiazepine, Urine Neg (Neg); Cocaine, Urine Pos (Neg); MDMA (Ecstacy), Urine Pos (Neg); Methadone, Urine Neg (Neg); Opiate, Urine Neg (Neg); Phencyclidine, Urine Neg (Neg)
--- NOTE | 2021-10-26 11:35 | Communication Note ---
Date of Service: October 26, 2021 The patient is a 56 year old man with pmh CAD s/p stenting (?2019), DM2, HLD, CKD, tobacco use disorder, alcohol use disorder, COPD, HTN, depression who pr esented for falls and feeling dehydrated. He reports that he is homeless and lives in his car (although told admitting provider he is from a hotel). Has been drinking 1/5 vodka daily and has not been consistently taking his medications. He remembers LOC at one point, denied chest pain, shortness of breath, n/v/d, abdominal pain prior to the episode. Did hit his head and his left side, complaints of pain. CTH was unremarkable, ECG with tachycardia and PVCs, trop negative. Given IVF and admitted to medicine with alcohol withdrawal monitoring and protocol. Is interested in alcohol detox and rehab on this admission. PHYSICAL EXAMINATION: GENERAL: The patient is awake and alert, not in acute distress. HEENT: Some bruising on the forehead. Pupils equal, round and reactive to light. Oral mucosa moist. NECK: No JVD, no neck masses. CARDIOVASCULAR: S1 and S2 heard. Regular rate and rhythm. No murmur, no gallop. RESPIRATORY SYSTEM: Normal AP diameter. No accessory muscle use. No wheezing, no crackles. ABDOMEN: Soft, bowel sounds present, nontender, no distention. CENTRAL NERVOUS SYSTEM: Alert and oriented. Speech is clear. Obeys simple commands. No facial droop. Moves extremities. EXTREMITIES: Bilateral lower extremities with erythematous changes seen and somewhat warm to touch, as well as on bilateral sun exposed forearms Assessment and Plan: The patient is a 56 year old man with pmh CAD s/p stenting (?2019), DM2, HLD, CKD, tobacco use disorder, alcohol use disorder, COPD, HTN, depression who presented for falls and feeling dehydrated. Admitted for dehydration and alcohol withdrawal. Dehydration - likely in the setting of alcohol use disorder, poor po intake, living outside during hot weather - not eating or drinking regularly - fall likely orthostatic vs vasovagal, less concern for cardiac or neurologic cause - IVF - encourage PO intake Alochol use disorder - reports multiple attempts to stop and has had up to a year of sobriety in the past - currently drinking 1/5 vodka daily - last drink prior to admission - interested in detox and rehab - interested in exploring medication help for abstinence - Psychiatry consulted - alcohol withdrawal protocol - Librium and prn Ativan IV - telemetry monitoring For full plan, see H&P from today. Sammy Browning MD [facility]
[2021-10-26] MEDS: cloNIDine HCL 0.1 MG TAB PO PRN (16:23)
[2021-10-26] MEDS ORDERED: hydrALAZINE HCL 25 MG TAB PO PRN (16:57)
[2021-10-26] MEDS ORDERED: Nursing to Pharmacy Communication SCH (18:00)
[2021-10-26] MEDS: DICLOFENAC SOD 1% GEL 100 GM TUBE EXT PRN (18:34)
[2021-10-26] MEDS ORDERED: chlordiazePOXIDE HCl 25 MG CAP PO ONE (21:00)
[2021-10-26] MEDS: MIRTAZAPINE TAB 15 MG TAB PO SCH (21:24)
[2021-10-27] MEDS: cloNIDine HCL 0.1 MG TAB PO PRN (03:16)
[2021-10-27] MEDS: chlordiazePOXIDE HCl 25 MG CAP PO SCH ×4 (04:37→20:43)
[2021-10-27] MEDS ORDERED: chlordiazePOXIDE HCl 25 MG CAP PO SCH (05:00)
--- NOTE | 2021-10-27 05:46 | Electrocardiogram Report ---
Test Reason : Blood Pressure : / mmHG Vent. Rate : 103 BPM Atrial Rate : 103 BPM P-R Int : 168 ms QRS Dur : 098 ms QT Int : 354 ms P-R-T Axes : 046 -18 034 degrees QTc Int : 463 ms Sinus tachycardia with frequent Premature ventricular complexes Otherwise normal ECG When compared with ECG of 14-SEP-2021 23:48, Incomplete right bundle branch block is no longer Present Confirmed by Dandre Lea ([id number]) on 10/27/2021 5:45:37 AM Referred By: REFERRED SELF Confirmed By:Dandre Lea
[2021-10-27] MEDS: busPIRone 5 MG TAB PO SCH (07:24)
[2021-10-27] MEDS: METOPROLOL SUCC 50MG EXT REL TAB PO SCH (07:24)
[2021-10-27] MEDS: THIAMINE HCL 100 MG TAB PO SCH (07:24)
[2021-10-27] MEDS: ASPIRIN 81 MG ECTAB PO SCH (07:24)
[2021-10-27] MEDS: ARIPIprazole 1 MG/ML ORAL SOLN 150 ML BTL PO SCH (07:24)
[2021-10-27] MEDS: amLODIPine BESYLATE 5 MG TAB PO SCH (07:24)
[2021-10-27] MEDS: FOLIC ACID 1 MG TAB PO SCH (07:25)
[2021-10-27] MEDS: ATORVASTATIN 40 MG TAB PO SCH (07:25)
[2021-10-27] MEDS: GABAPENTIN 300 MG CAP PO SCH ×3 (07:25→20:44)
[2021-10-27] MEDS: NICOTINE 21 MG/24 HR TDSY TD SCH (07:25)
[2021-10-27] MEDS: ENOXAPARIN INJ 40 MG/0.4 ML SYR SQ SCH ×2 (07:26→20:44)
[2021-10-27] MEDS: TRIAMCINOLONE ACET 0.1% OINT 15 GM TUBE TOP SCH ×2 (07:26→20:43)
[2021-10-27] MEDS: BUPRENORPHINE/NALOXONE 8/2 MG TAB SL SCH ×2 (07:32→20:43)
[2021-10-27] MEDS: INSULIN ASPART PER UNIT SC SCH ×4 (09:12→20:53)
[2021-10-27] MEDS: LANTUS PER UNIT CHARGE SQ SCH (09:13)
[2021-10-27 10:27] LABS: Basophils # (auto) 0.02 K/uL (0-0.2); Basophils % (auto) 0.7 %; Eosinophils # (auto) 0.07 K/uL (0-0.50); Eosinophils % (auto) 2.4 %; Hematocrit (blood only) 31.9 % (40.1-51.0); Hemoglobin 9.9 g/dl (14.0-18.0); Lymphocytes # (auto) 1.11 K/uL (1.2-3.4); Lymphocytes % (auto) 38.8 %; Mean Platelet Volume 10.3 fL (9.4-12.4); Monocytes # (auto) 0.39 K/uL (0.24-0.82); Monocytes % (auto) 13.6 %; Neutrophils # (auto) 1.27 K/uL (1.4-6.5); Neutrophils % (auto) 44.5 %; Platelet Count 121 K/uL (130-400); White Blood Count 2.86 K/ul (4.8-10.8)
[2021-10-27 10:45] LABS: Mean Corpuscular Hemoglobin 30.8 pg (25.0-34.0); Mean Corpuscular Volume 99.4 fL (80.0-100.0); RDW Standard Deviation 46.7 fL (36.4-46.3); Red Blood Count 3.21 M/uL (4.63-6.08)
[2021-10-27 10:49] LABS: Albumin Globulin Ratio 0.8 (0.9-2); Albumin Level 2.5 gm/dl (3.4-5.0); BUN Creatinine Ratio 22.9 (10-20); Bilirubin,Total 0.3 mg/dl (0.2-1.0); Creatinine Clr Calc Pharmacy 68.3 ml/min; Est GFR (African American) 57.7 ml/min; Est GFR (Non-African American) 49.7 ml/min; Globulin 3.3 gm/dl (2.5-4.0); Magnesium 1.8 mg/dl (1.7-2.4); Phosphorus 3.4 mg/dl (2.5-4.9); Potassium 4.6 mmol/L (3.5-5.1); Total Protein 5.8 gm/dl (6.0-8.3)
[2021-10-27] MEDS: CARBOHYDRATES FOR HYPOGLYCEMIA PO PRN ×2 (16:49→17:07)
[2021-10-27] MEDS ORDERED: PHARMACY GLYCEMIC MGMT CONSULT PRN (17:24)
[2021-10-27] MEDS ORDERED: DEXTROSE 50% 50 ML SYRINGE IV PRN (17:45)
[2021-10-27] MEDS ORDERED: GLUCOSE 10 TAB/TUBE PO PRN (17:45)
[2021-10-27] MEDS ORDERED: GLUCOSE 40% GEL 15 GM TUBE PO PRN (17:45)
[2021-10-27] MEDS ORDERED: GLUCAGON FOR INJ 1 MG VIAL IM PRN (17:45)
[2021-10-27] MEDS: MIRTAZAPINE TAB 15 MG TAB PO SCH (20:44)
--- NOTE | 2021-10-27 20:53 | Hospitalist Progress Note ---
Date of Service October 27, 2021 Assessment & Plan (1) ONDINA (acute kidney injury): (2) Acute dehydration: Plan: 56 yr male with H/O Uncontrolled DM II, HTN, HLD, alcohol abuse, alcohol withdrawal seizure, CAD s/p stent, chronic back pain, untreated CATALINO, tobacco use, neuropathy, CKD III presented to ER with fall and dehydration and found to have acute kidney injury. Acute kidney injury Creatinine on admission 2.7 Received IVF Creatinine 1.5 today Continue to hold losartan and lasix Avoid nephrotoxic agents Continue monitor BMP Alcohol abuse Alcohol withdrawal Pt said last alcohol drink was on Monday Case management said patient has been to multiple alcohol inpatient rehab in the past On alcohol withdrawal protocol with Librium and Ativan Counseling on alcohol cessation Continue thiamine and folic acid No sign of alcohol withdrawal and DT noted Pt is not interested to go to inpatient alcohol rehab Continue monitor closely for alcohol withdrawal symptoms and DT B/L Lower extremity edema H/O Chronic LE edema, Chronic Venous stasis Venous Doppler:No DVT within the right or left lower extremity Received IV ceftriaxone on admission that was discontinued since there was no evidence of infection Continue monitor for sign of cellulitis Hypertension: Noncompliant with medications Continue metoprolol succinate, Amlodipine Continue to hold Losartan Continue monitor BP CAD: S/p stent H/O Cardiomyopathy Echo in 2020 EF 55% troponin on admission negative EKG showed no signs of acute ischaemia Continue aspirin, metoprolol, statin DM II Most recent A1c: 7.7 on 11/08 Continue to hold oral diabetes home medications Episodes of hypoglycemia Pharmacy consult for glycemic management Monitor BGs Chronic pancytopenia: Likely due to chronic alcoholism Monitor CBC Chronic pain: On Suboxone Tobacco use disorder: Smoking cessation encouraged Nicotine patch CATALINO: H/O noncompliance with CPAP DVT Px: Pt was on Lovenox SQ BID, changed to daily. if renal function worsening, consider to change to heparin Code Status Full Code Admission and Anticipated Discharge Date Admission Date: October 25, 2021 Subjective Patient was seen and examined for follow-up of alcohol abuse Sitting in chair with no acute distress getting ready to eat his lunch He said that the can see things crawling in the wall but he knows they are not for real Denies any chest pain, palpitation, dizziness and SOB Review of Systems Review of Systems: All systems reviewed & are unremarkable except as noted in Subjective Physical Exam Physical Exam: General- No acute distress Head- atraumatic Eyes- PERRL, EOMI, ENT- oropharynx clear Neck- supple, no JVD Lungs- clear to auscultation Heart- regular rhythm; no murmur Abdomen- normal bowel sounds, soft, nontender Extremities- no calf tenderness, +edema Neuro- alert, oriented x 3; PERRL, EOMI; no facial palsy; no dysarthria Skin- warm & dry, erythematous changes that pt attributed with sunburn Results & Data Results & Data ([facility]) Vital Signs (Past 12 Hours) Vital Signs Temp Pulse Pulse Resp BP Pulse Ox O2 Del Method 10/27/21 19:41 36.4 C L 66 20 170/92 H 93 Room Air 10/27/21 19:53 Room Air 10/27/21 15:18 36.5 C 59 L 20 151/72 H 97 10/27/21 15:07 57 L 10/27/21 11:34 36.4 C L 66 20 150/90 H 93
[2021-10-28] MEDS: cloNIDine HCL 0.1 MG TAB PO PRN (00:10)
[2021-10-28] MEDS: traZODone HCL 100 MG TAB PO PRN (00:10)
[2021-10-28] MEDS: INSULIN ASPART PER UNIT SC SCH ×6 (00:19→21:10)
[2021-10-28] MEDS: chlordiazePOXIDE HCl 25 MG CAP PO SCH ×3 (03:08→21:10)
[2021-10-28 08:25] LABS: Hematocrit (blood only) 35.6 % (40.1-51.0); Hemoglobin 11.3 g/dl (14.0-18.0); Mean Corpuscular Hemoglobin 31.4 pg (25.0-34.0); Mean Corpuscular Hgb Conc 31.7 g/dL (32.0-36.0); Mean Corpuscular Volume 98.9 fL (80.0-100.0); Mean Platelet Volume 9.7 fL (9.4-12.4); Platelet Count 149 K/uL (130-400); RDW Coefficient of Variation 12.8 % (11.5-14.5); RDW Standard Deviation 45.6 fL (36.4-46.3); White Blood Count 3.57 K/ul (4.8-10.8)
[2021-10-28 08:54] LABS: BUN Creatinine Ratio 24.8 (10-20); Calcium 8.6 mg/dl (8.5-10.1); Creatinine Clr Calc Pharmacy 71.1 ml/min; Est GFR (African American) 59.5 ml/min; Est GFR (Non-African American) 51.4 ml/min; Potassium 4.9 mmol/L (3.5-5.1)
--- NOTE | 2021-10-28 09:44 | Pharmacy Report ---
Pharmacy Glycemic Short Note 2 - Date of Service October 28, 2021 - Glycemic Short BSG Results (Last 24 hours): 10/27/21 10/27/21 10/27/21 09:43 11:39 16:48 Glucose 251 H POC Glucose 272 H 53 L* 10/27/21 10/27/21 10/27/21 16:49 17:23 17:42 Glucose POC Glucose 43 L* 63 L* 85 10/27/21 10/28/21 10/28/21 20:31 00:00 04:12 Glucose POC Glucose 139 H 169 H 247 H 10/28/21 10/28/21 07:47 08:15 Glucose 108 H POC Glucose 130 H OUTPATIENT ANTIDIABETIC REGIMEN: * Jardiance 10 mg PO daily * Metformin ER 500 mg PO daily * Glipizide ER 10 mg PO daily * HbA1c = 7.7% (10/26/21) ASSESSMENT: * 56 yo M admitted on 10/25/21 secondary to dehydration. Pharmacy was consulted last evening to assist with inpatient glycemic management. Patient is well known to this service. Outpatient regimen has changed significantly since last time patient was on this service. * After reviewing [facility] Practice note from 10/22/21 in [facility], appears patient is homeless and sleeping in car a lot. Medical compliance has been an issue. However, A1c is best it's been since 2019. Holding oral antidiabetic medications while admitted. * Received 21 units of insulin on 10/25/21 - 7 units basal + 14 units bolus. BSGs were: [phone] mg/dL. * Received 27 units of insulin yesterday - 7 units basal + 20 units bolus. BSGs were: 267-272-(53-43-63-85)-139 mg/dL. Overnight checks: 169-247. * Hypoglycemia likely related to large bolus dose received at lunchtime. Required 30 grams of carbs to correct hypoglycemia. Asymptomatic. * No change to current basal dose. Will continue with current Novolog regimen and monitor BSGs today. May need to loosen Novolog this afternoon. Did loosen goal range to hopefully prevent further hypoglycemia. PLAN FOR INPATIENT GLYCEMIC CONTROL: * Hold outpatient oral diabetes medications * Basal insulin * Lantus 7 units SC daily * Bolus insulin * NovoLog per scale ACHS or Q6hrs while NPO * Goal Range: Low 120 mg/dL - High 150 mg/dL * Correction Factor: 30 mg/dL/unit * Nutritional / Prandial insulin per carb ratio of 1 unit per 10 grams CHO consumed
[2021-10-28] MEDS: LANTUS PER UNIT CHARGE SQ SCH (10:07)
[2021-10-28] MEDS: ASPIRIN 81 MG ECTAB PO SCH (10:13)
[2021-10-28] MEDS: FOLIC ACID 1 MG TAB PO SCH (10:13)
[2021-10-28] MEDS: ARIPIprazole 1 MG/ML ORAL SOLN 150 ML BTL PO SCH (10:13)
[2021-10-28] MEDS: ATORVASTATIN 40 MG TAB PO SCH (10:13)
[2021-10-28] MEDS: amLODIPine BESYLATE 5 MG TAB PO SCH (10:13)
[2021-10-28] MEDS: busPIRone 5 MG TAB PO SCH (10:13)
[2021-10-28] MEDS: METOPROLOL SUCC 50MG EXT REL TAB PO SCH (10:14)
[2021-10-28] MEDS: TRIAMCINOLONE ACET 0.1% OINT 15 GM TUBE TOP SCH ×3 (10:14→21:04)
[2021-10-28] MEDS: THIAMINE HCL 100 MG TAB PO SCH (10:14)
[2021-10-28] MEDS: NICOTINE 21 MG/24 HR TDSY TD SCH (10:14)
[2021-10-28] MEDS: GABAPENTIN 300 MG CAP PO SCH ×3 (10:14→21:05)
[2021-10-28] MEDS: BUPRENORPHINE/NALOXONE 8/2 MG TAB SL SCH ×2 (10:21→21:10)
[2021-10-28] MEDS: ENOXAPARIN INJ 40 MG/0.4 ML SYR SQ SCH (21:04)
[2021-10-28] MEDS: MIRTAZAPINE TAB 15 MG TAB PO SCH (21:05)
--- NOTE | 2021-10-28 23:57 | Hospitalist Progress Note ---
Date of Service October 28, 2021 Assessment & Plan (1) ONDINA (acute kidney injury): (2) Acute dehydration: Plan: 56 yr male with H/O Uncontrolled DM II, HTN, HLD, alcohol abuse, alcohol withdrawal seizure, CAD s/p stent, chronic back pain, untreated CATALINO, tobacco use, neuropathy, CKD III presented to ER with fall and dehydration and found to have acute kidney injury. Acute kidney injury Creatinine on admission 2.7 Received IVF Creatinine 1.4 today Continue to hold losartan and lasix Avoid nephrotoxic agents Continue monitor BMP Alcohol abuse Alcohol withdrawal Pt said last alcohol drink was on Monday Case management said patient has been to multiple alcohol inpatient rehab in the past On alcohol withdrawal protocol with Librium and Ativan Counseling on alcohol cessation Continue thiamine and folic acid No sign of alcohol withdrawal and DT noted Pt is not interested to go to inpatient alcohol rehab Continue monitor closely for alcohol withdrawal symptoms and DT B/L Lower extremity edema H/O Chronic LE edema, Chronic Venous stasis Venous Doppler:No DVT within the right or left lower extremity Received IV ceftriaxone on admission that was discontinued since there was no evidence of infection Continue monitor for sign of cellulitis Hypertension: Noncompliant with medications Continue metoprolol succinate, Amlodipine Continue to hold Losartan Continue monitor BP CAD: S/p stent H/O Cardiomyopathy Echo in 2020 EF 55% troponin on admission negative EKG showed no signs of acute ischaemia Continue aspirin, metoprolol, statin DM II Most recent A1c: 7.7 on 11/08 Continue to hold oral diabetes home medications Episodes of hypoglycemia Pharmacy on board for glycemic management Continue monitor BS closely Chronic pancytopenia: Likely due to chronic alcoholism Monitor CBC Chronic pain: On Suboxone Tobacco use disorder: Smoking cessation encouraged Nicotine patch CATALINO: H/O noncompliance with CPAP DVT Px: Pt was on Lovenox SQ BID, changed to daily. if renal function worsening, consider to change to heparin Code Status Full Code Admission and Anticipated Discharge Date Admission Date: October 25, 2021 Subjective Patient was seen and examined for follow-up of alcohol abuse Sitting at the edge of the bed with no acute distress Pt said that he did not feel good today He thinks he felt like that because he is going to alcohol withdrawal Denies any chest pain, palpitation, dizziness and SOB Review of Systems Review of Systems: All systems reviewed & are unremarkable except as noted in Subjective Physical Exam Physical Exam: General- No acute distress Head- atraumatic Eyes- PERRL, EOMI, ENT- oropharynx clear Neck- supple, no JVD Lungs- clear to auscultation Heart- regular rhythm; no murmur Abdomen- normal bowel sounds, soft, nontender Extremities- no calf tenderness, +edema Neuro- alert, oriented x 3; PERRL, EOMI; no facial palsy; no dysarthria Skin- warm & dry, erythematous changes that pt attributed with sunburn Results & Data Results & Data ([facility]) Vital Signs (Past 12 Hours) Vital Signs Temp Pulse Pulse Resp BP BP Pulse Ox 10/28/21 23:33 36.7 C 68 18 173/92 H 90 10/28/21 22:24 66 10/28/21 21:28 10/28/21 19:37 36.8 C 65 18 171/89 H 93 10/28/21 15:49 65 10/28/21 15:44 36.9 C 65 16 165/98 H 94 10/28/21 13:53 36.5 C 65 18 171/89 H 93 O2 Del Method 10/28/21 23:33 Room Air 10/28/21 22:24 10/28/21 21:28 Room Air 10/28/21 19:37 Room Air 10/28/21 15:49 10/28/21 15:44 Room Air 10/28/21 13:53 Room Air, Nasal Cannula
[2021-10-29] MEDS: cloNIDine HCL 0.1 MG TAB PO PRN (03:34)
[2021-10-29] MEDS ORDERED: LANTUS PER UNIT CHARGE SQ SCH (09:00)
[2021-10-29] MEDS: INSULIN ASPART PER UNIT SC SCH ×4 (09:32→20:39)
[2021-10-29] MEDS: amLODIPine BESYLATE 5 MG TAB PO SCH (09:33)
[2021-10-29] MEDS: busPIRone 5 MG TAB PO SCH (09:34)
[2021-10-29] MEDS: ARIPIprazole 1 MG/ML ORAL SOLN 150 ML BTL PO SCH (09:34)
[2021-10-29] MEDS: ATORVASTATIN 40 MG TAB PO SCH (09:34)
[2021-10-29] MEDS: BUPRENORPHINE/NALOXONE 8/2 MG TAB SL SCH ×2 (09:34→20:39)
[2021-10-29] MEDS: ASPIRIN 81 MG ECTAB PO SCH (09:34)
[2021-10-29] MEDS: GABAPENTIN 300 MG CAP PO SCH ×3 (09:35→20:28)
[2021-10-29] MEDS: FOLIC ACID 1 MG TAB PO SCH (09:35)
[2021-10-29] MEDS: NICOTINE 21 MG/24 HR TDSY TD SCH (09:35)
[2021-10-29] MEDS: THIAMINE HCL 100 MG TAB PO SCH (09:36)
[2021-10-29] MEDS: METOPROLOL SUCC 50MG EXT REL TAB PO SCH (09:36)
[2021-10-29] MEDS: TRIAMCINOLONE ACET 0.1% OINT 15 GM TUBE TOP SCH ×2 (09:39→20:29)
--- NOTE | 2021-10-29 11:00 | Pharmacy Report ---
Pharmacy Glycemic Short Note 2 - Date of Service October 29, 2021 - Glycemic Short BSG Results (Last 24 hours): 10/28/21 10/28/21 10/28/21 11:27 11:28 11:30 POC Glucose 338 H* 232 H 222 H 10/28/21 10/28/21 10/29/21 16:26 20:19 07:45 POC Glucose 209 H 225 H 268 H OUTPATIENT ANTIDIABETIC REGIMEN: * Jardiance 10 mg PO daily * Metformin ER 500 mg PO daily * Glipizide ER 10 mg PO daily * HbA1c = 7.7% (10/26/21) ASSESSMENT: 10/29 * Patient received total of 33 units of insulin yesterday, of which only 7 units were basal * Fasting BSG elevated at 268 mg/dL - PO intake increasing each day, will titrate of to basal 12 units for this morning * Will tighten CF/CR with AM check 10/28 * 56 yo M admitted on 10/25/21 secondary to dehydration. Pharmacy was consulted last evening to assist with inpatient glycemic management. Patient is well known to this service. Outpatient regimen has changed significantly since last time patient was on this service. * After reviewing [facility] Practice note from 10/22/21 in [facility], appears patient is homeless and sleeping in car a lot. Medical compliance has been an issue. However, A1c is best it's been since 2019. Holding oral antidiabetic medications while admitted. * Received 21 units of insulin on 10/25/21 - 7 units basal + 14 units bolus. BSGs were: [phone] mg/dL. * Received 27 units of insulin yesterday - 7 units basal + 20 units bolus. BSGs were: 267-272-(53-43-63-85)-139 mg/dL. Overnight checks: 169-247. * Hypoglycemia likely related to large bolus dose received at lunchtime. Required 30 grams of carbs to correct hypoglycemia. Asymptomatic. * No change to current basal dose. Will continue with current Novolog regimen and monitor BSGs today. May need to loosen Novolog this afternoon. Did loosen goal range to hopefully prevent further hypoglycemia. PLAN FOR INPATIENT GLYCEMIC CONTROL: * Hold outpatient oral diabetes medications * Basal insulin * Lantus 12 units daily * Bolus insulin * NovoLog per scale ACHS or Q6hrs while NPO * Goal Range: Low 120 mg/dL - High 150 mg/dL * Correction Factor: 25 mg/dL/unit * Nutritional / Prandial insulin per carb ratio of 1 unit per 7 grams CHO consumed
[2021-10-29 12:49] LABS: BUN Creatinine Ratio 24.8 (10-20); Calcium 8.9 mg/dl (8.5-10.1); Creatinine Clr Calc Pharmacy 77.3 ml/min; Est GFR (African American) 65.9 ml/min; Est GFR (Non-African American) 56.8 ml/min; Potassium 5.1 mmol/L (3.5-5.1)
[2021-10-29] MEDS: ACETAMINOPHEN 325 MG TAB PO PRN (16:44)
--- NOTE | 2021-10-29 19:55 | Hospitalist Progress Note ---
Date of Service October 29, 2021 Assessment & Plan (1) ONDINA (acute kidney injury): (2) Acute dehydration: Plan: 56 yr male with H/O Uncontrolled DM II, HTN, HLD, alcohol abuse, alcohol withdrawal seizure, CAD s/p stent, chronic back pain, untreated CATALINO, tobacco use, neuropathy, CKD III presented to ER with fall and dehydration and found to have acute kidney injury. Acute kidney injury Creatinine on admission 2.7 Received IVF Creatinine 1.3 today Continue to hold losartan and lasix Avoid nephrotoxic agents Continue monitor BMP Alcohol abuse Alcohol withdrawal Pt said last alcohol drink was on Monday Case management said patient has been to multiple alcohol inpatient rehab in the past On alcohol withdrawal protocol with Librium and Ativan Counseling on alcohol cessation Continue thiamine and folic acid No sign of alcohol withdrawal and DT noted Pt is not interested to go to inpatient alcohol rehab Continue monitor closely for alcohol withdrawal symptoms and DT B/L Lower extremity edema H/O Chronic LE edema, Chronic Venous stasis Venous Doppler:No DVT within the right or left lower extremity Received IV ceftriaxone on admission that was discontinued since there was no evidence of infection Continue monitor for sign of cellulitis Hypertension: Noncompliant with medications Continue metoprolol succinate, Amlodipine Will resume Losartan in AM Continue monitor BP CAD: S/p stent H/O Cardiomyopathy Echo in 2020 EF 55% troponin on admission negative EKG showed no signs of acute ischaemia Continue aspirin, metoprolol, statin DM II Most recent A1c: 7.7 on 11/08 Continue to hold oral diabetes home medications Episodes of hypoglycemia Pharmacy on board for glycemic management Continue monitor BS closely Chronic pancytopenia: Likely due to chronic alcoholism Monitor CBC Chronic pain: On Suboxone Tobacco use disorder: Smoking cessation encouraged Nicotine patch CATALINO: H/O noncompliance with CPAP DVT Px: Pt was on Lovenox SQ BID, changed to daily. if renal function worsening, consider to change to heparin Code Status Full Code Admission and Anticipated Discharge Date Admission Date: October 25, 2021 Subjective Patient was seen and examined for follow-up of alcohol abuse Pt has been sleeping alot today Denies any chest pain, palpitation, dizziness and SOB Review of Systems Review of Systems: All systems reviewed & are unremarkable except as noted in Subjective Physical Exam Physical Exam: General- No acute distress Head- atraumatic Eyes- PERRL, EOMI, ENT- oropharynx clear Neck- supple, no JVD Lungs- clear to auscultation Heart- regular rhythm; no murmur Abdomen- normal bowel sounds, soft, nontender Extremities- no calf tenderness, +edema Neuro- alert, oriented x 3; PERRL, EOMI; no facial palsy; no dysarthria Skin- warm & dry, erythematous changes that pt attributed with sunburn Results & Data Results & Data ([facility]) Vital Signs (Past 12 Hours) Vital Signs Temp Pulse Pulse Resp BP Pulse Ox O2 Del Method 10/29/21 16:00 36.5 C 62 16 163/88 H 90 Room Air 10/29/21 11:00 36.5 C 65 16 156/101 H 90 Room Air 10/29/21 08:00 66
[2021-10-29] MEDS: ENOXAPARIN INJ 40 MG/0.4 ML SYR SQ SCH (20:27)
[2021-10-29] MEDS: MIRTAZAPINE TAB 15 MG TAB PO SCH (20:28)
[2021-10-29] MEDS: LANTUS PER UNIT CHARGE SQ SCH (20:39)
[2021-10-30] MEDS ORDERED: INSULIN ASPART PER UNIT SC SCH
[2021-10-30] MEDS: ACETAMINOPHEN 325 MG TAB PO PRN (05:41)
[2021-10-30 06:14] LABS: BUN Creatinine Ratio 22.8 (10-20); Calcium 9.3 mg/dl (8.5-10.1); Creatinine Clr Calc Pharmacy 71.1 ml/min; Est GFR (African American) 59.5 ml/min; Est GFR (Non-African American) 51.4 ml/min; Potassium 5.2 mmol/L (3.5-5.1)
[2021-10-30] MEDS: NICOTINE 21 MG/24 HR TDSY TD SCH (08:43)
[2021-10-30] MEDS: ARIPIprazole 1 MG/ML ORAL SOLN 150 ML BTL PO SCH (08:46)
[2021-10-30] MEDS: ASPIRIN 81 MG ECTAB PO SCH (08:46)
[2021-10-30] MEDS: amLODIPine BESYLATE 5 MG TAB PO SCH (08:46)
[2021-10-30] MEDS: GABAPENTIN 300 MG CAP PO SCH ×3 (08:47→22:17)
[2021-10-30] MEDS: FOLIC ACID 1 MG TAB PO SCH (08:47)
[2021-10-30] MEDS: busPIRone 5 MG TAB PO SCH (08:47)
[2021-10-30] MEDS: ATORVASTATIN 40 MG TAB PO SCH (08:47)
[2021-10-30] MEDS: THIAMINE HCL 100 MG TAB PO SCH (08:49)
[2021-10-30] MEDS: METOPROLOL SUCC 50MG EXT REL TAB PO SCH (08:49)
[2021-10-30] MEDS: INSULIN ASPART PER UNIT SC SCH ×4 (08:59→22:23)
[2021-10-30] MEDS ORDERED: LANTUS PER UNIT CHARGE SQ SCH (09:00)
[2021-10-30] MEDS ORDERED: LOSARTAN POTASSIUM 50 MG TAB PO SCH (09:00)
[2021-10-30] MEDS: BUPRENORPHINE/NALOXONE 8/2 MG TAB SL SCH ×2 (09:00→22:23)
[2021-10-30] MEDS: LANTUS PER UNIT CHARGE SQ SCH ×2 (09:00→22:23)
[2021-10-30] MEDS: TRIAMCINOLONE ACET 0.1% OINT 15 GM TUBE TOP SCH ×2 (09:06→22:18)
[2021-10-30] MEDS: ENOXAPARIN INJ 40 MG/0.4 ML SYR SQ SCH (22:16)
[2021-10-30] MEDS: MIRTAZAPINE TAB 15 MG TAB PO SCH (22:18)
--- NOTE | 2021-10-30 23:17 | Hospitalist Progress Note ---
Date of Service October 30, 2021 Assessment & Plan (1) ONDINA (acute kidney injury): (2) Acute dehydration: Plan: 56 yr male with H/O Uncontrolled DM II, HTN, HLD, alcohol abuse, alcohol withdrawal seizure, CAD s/p stent, chronic back pain, untreated CATALINO, tobacco use, neuropathy, CKD III presented to ER with fall and dehydration and found to have acute kidney injury. Acute kidney injury Creatinine on admission 2.7 Received IVF Creatinine 1.5 today hold losartan and lasix Avoid nephrotoxic agents Continue monitor BMP Alcohol abuse Alcohol withdrawal Pt said last alcohol drink was on Monday Case management said patient has been to multiple alcohol inpatient rehab in the past On alcohol withdrawal protocol with Librium and Ativan Counseling on alcohol cessation Continue thiamine and folic acid No sign of alcohol withdrawal and DT noted Pt is not interested to go to inpatient alcohol rehab Continue monitor closely for alcohol withdrawal symptoms and DT B/L Lower extremity edema H/O Chronic LE edema, Chronic Venous stasis Venous Doppler:No DVT within the right or left lower extremity Received IV ceftriaxone on admission that was discontinued since there was no evidence of infection Continue monitor for sign of cellulitis Hypertension: Noncompliant with medications Continue metoprolol succinate, Amlodipine Will resume Losartan in AM Continue monitor BP CAD: S/p stent H/O Cardiomyopathy Echo in 2020 EF 55% troponin on admission negative EKG showed no signs of acute ischaemia Continue aspirin, metoprolol, statin DM II Most recent A1c: 7.7 on 11/08 Continue to hold oral diabetes home medications Episodes of hypoglycemia Pharmacy on board for glycemic management Continue monitor BS closely Chronic pancytopenia: Likely due to chronic alcoholism Monitor CBC Chronic pain: On Suboxone Tobacco use disorder: Smoking cessation encouraged Nicotine patch CATALINO: H/O noncompliance with CPAP DVT Px: Pt was on Lovenox SQ BID, changed to daily. if renal function worsening, consider to change to heparin Code Status Full Code Admission and Anticipated Discharge Date Admission Date: October 25, 2021 Subjective Patient was seen and examined for follow-up of alcohol abuse Sitting at the edge of the bed with no acute distress Pt is asking for Ativan when is not scoring on his ciwa score Denies any chest pain, palpitation, dizziness and SOB Review of Systems Review of Systems: All systems reviewed & are unremarkable except as noted in Subjective Physical Exam Physical Exam: General- No acute distress Head- atraumatic Eyes- PERRL, EOMI, ENT- oropharynx clear Neck- supple, no JVD Lungs- clear to auscultation Heart- regular rhythm; no murmur Abdomen- normal bowel sounds, soft, nontender Extremities- no calf tenderness, +edema Neuro- alert, oriented x 3; PERRL, EOMI; no facial palsy; no dysarthria Skin- warm & dry, erythematous changes that pt attributed with sunburn Results & Data Results & Data ([facility]) Vital Signs (Past 12 Hours) Vital Signs Temp Pulse Pulse Resp BP BP Pulse Ox 10/30/21 19:17 36.5 C 68 18 157/98 H 92 10/30/21 16:00 67 10/30/21 15:56 36.8 C 65 18 172/91 H 91 10/30/21 11:58 36.4 C L 66 16 148/84 H 92 10/30/21 11:50 O2 Del Method 10/30/21 19:17 Room Air 10/30/21 16:00 10/30/21 15:56 Room Air 10/30/21 11:58 Room Air 10/30/21 11:50 Room Air
[2021-10-31] MEDS: INSULIN ASPART PER UNIT SC SCH ×4 (08:11→20:52)
[2021-10-31] MEDS: LANTUS PER UNIT CHARGE SQ SCH (08:11)
[2021-10-31] MEDS: DICLOFENAC SOD 1% GEL 100 GM TUBE EXT PRN (08:17)
[2021-10-31] MEDS: amLODIPine BESYLATE 5 MG TAB PO SCH (08:26)
[2021-10-31] MEDS: ARIPIprazole 1 MG/ML ORAL SOLN 150 ML BTL PO SCH (08:26)
[2021-10-31] MEDS: ASPIRIN 81 MG ECTAB PO SCH (08:26)
[2021-10-31] MEDS: ATORVASTATIN 40 MG TAB PO SCH (08:27)
[2021-10-31] MEDS: BUPRENORPHINE/NALOXONE 8/2 MG TAB SL SCH ×2 (08:27→10:58)
[2021-10-31] MEDS: busPIRone 5 MG TAB PO SCH (08:27)
[2021-10-31] MEDS: GABAPENTIN 300 MG CAP PO SCH ×3 (08:28→20:51)
[2021-10-31] MEDS: FOLIC ACID 1 MG TAB PO SCH (08:28)
[2021-10-31] MEDS: METOPROLOL SUCC 50MG EXT REL TAB PO SCH (08:28)
[2021-10-31] MEDS: THIAMINE HCL 100 MG TAB PO SCH (08:28)
[2021-10-31] MEDS: NICOTINE 21 MG/24 HR TDSY TD SCH (08:28)
[2021-10-31] MEDS: TRIAMCINOLONE ACET 0.1% OINT 15 GM TUBE TOP SCH ×2 (08:40→20:55)
[2021-10-31 08:58] LABS: BUN Creatinine Ratio 23.8 (10-20); Calcium 8.9 mg/dl (8.5-10.1); Creatinine Clr Calc Pharmacy 69.8 ml/min; Est GFR (African American) 58.6 ml/min; Est GFR (Non-African American) 50.5 ml/min; Potassium 5.4 mmol/L (3.5-5.1)
[2021-10-31] MEDS ORDERED: SODIUM CHLORIDE 0.9% 1000ML 1,000 ML IV SCH (10:30)
[2021-10-31] MEDS ORDERED: PATIROMER CALCIUM SORBITEX 8.4 GM PACK PO ONE (15:07)
--- NOTE | 2021-10-31 15:07 | Hospitalist Progress Note ---
Date of Service October 31, 2021 Assessment & Plan (1) ONDINA (acute kidney injury): (2) Acute dehydration: Plan: 56 yr male with H/O Uncontrolled DM II, HTN, HLD, alcohol abuse, alcohol withdrawal seizure, CAD s/p stent, chronic back pain, untreated CATALINO, tobacco use, neuropathy, CKD III presented to ER with fall and dehydration and found to have acute kidney injury. Acute kidney injury Creatinine on admission 2.7 Received IVF Creatinine 1.5 today Continue to hold losartan and lasix Starting on gentle IVF x 1 L Avoid nephrotoxic agents Continue monitor BMP Hyperkalemia Potassium 5.4 today Losartan on hold Continue gently IVF Consider to give Veltassa Check BMP later Alcohol abuse Alcohol withdrawal Pt said last alcohol drink was on Monday Case management said patient has been to multiple alcohol inpatient rehab in the past On alcohol withdrawal protocol with Librium and Ativan Counseling on alcohol cessation Continue thiamine and folic acid No sign of alcohol withdrawal and DT noted Pt is not interested to go to inpatient alcohol rehab Continue monitor closely for alcohol withdrawal symptoms and DT B/L Lower extremity edema H/O Chronic LE edema, Chronic Venous stasis Venous Doppler:No DVT within the right or left lower extremity Received IV ceftriaxone on admission that was discontinued since there was no evidence of infection Continue monitor for sign of cellulitis Hypertension: Noncompliant with medications Continue metoprolol succinate, Amlodipine Will resume Losartan in AM Continue monitor BP Unsteady gait Due to alcohol abuse Fall precaution Will give a script for a cane CAD: S/p stent H/O Cardiomyopathy Echo in 2020 EF 55% troponin on admission negative EKG showed no signs of acute ischaemia Continue aspirin, metoprolol, statin DM II Most recent A1c: 7.7 on 11/08 Continue to hold oral diabetes home medications Episodes of hypoglycemia Pharmacy on board for glycemic management Continue monitor BS closely Chronic pancytopenia: Likely due to chronic alcoholism Monitor CBC Chronic pain: On Suboxone Tobacco use disorder: Smoking cessation encouraged Nicotine patch CATALINO: H/O noncompliance with CPAP DVT Px: On Lovenox SQ daily if renal function worsening, consider to change to heparin Code Status Full Code Admission and Anticipated Discharge Date Admission Date: October 25, 2021 Subjective Patient was seen and examined for follow-up of alcohol abuse Lying in bed with no acute distress Pt has been sleepy alot. He said that has not been sleeping for in the last 6 months Pt prescription for the Suboxone writes for 1 tab BID, but he only takes it once Suboxone daily He said that when he takes it twice daily that he cannot function He said that he keeps it twice daily that he can give one to friend I advised patient that he should not share his medication to anyone We will notify the Suboxone clinic to change it to once daily since he only takes it once Denies any chest pain, palpitation, dizziness and SOB Review of Systems Review of Systems: All systems reviewed & are unremarkable except as noted in Subjective Physical Exam Physical Exam: General- No acute distress Head- atraumatic Eyes- PERRL, EOMI, ENT- oropharynx clear Neck- supple, no JVD Lungs- clear to auscultation Heart- regular rhythm; no murmur Abdomen- normal bowel sounds, soft, nontender Extremities- no calf tenderness, +edema Neuro- alert, oriented x 3; PERRL, EOMI; no facial palsy; no dysarthria Skin- warm & dry, erythematous changes that pt attributed with sunburn Results & Data Results & Data ([facility]) Vital Signs (Past 12 Hours) Vital Signs Temp Pulse Pulse Resp BP Pulse Ox O2 Del Method 10/31/21 10:24 36.9 C 81 16 153/80 H 92 Room Air 10/31/21 08:22 36.5 C 72 16 139/79 90 10/31/21 07:41 76 10/31/21 03:52 36.8 C 70 18 170/80 H 90 Room Air
[2021-10-31 15:32] LABS: Amphetamine Urine, Confirm 1490 ng/mL (<250); Cocaine, Urine 5550 ng/mL (<100); MDA negative; MDEA negative; MDMA (Ecstasy) Urine, Confirm negative; Methamphetamine, Ur Confirm >15000 ng/mL (<250)
[2021-10-31] MEDS: MIRTAZAPINE TAB 15 MG TAB PO SCH (20:51)
[2021-10-31] MEDS: ENOXAPARIN INJ 40 MG/0.4 ML SYR SQ SCH (20:58)
[2021-10-31] MEDS ORDERED: LANTUS PER UNIT CHARGE SQ SCH (21:00)
[2021-10-31] MEDS ORDERED: BUPRENORPHINE/NALOXONE 8/2 MG TAB SL SCH (21:00)
[2021-10-31 21:08] LABS: BUN Creatinine Ratio 18.2 (10-20); Creatinine Clr Calc Pharmacy 58.2 ml/min; Est GFR (Non-African American) 40.6 ml/min; Potassium 5.3 mmol/L (3.5-5.1)
[2021-11-01] MEDS: cloNIDine HCL 0.1 MG TAB PO PRN (01:03)
--- NOTE | 2021-11-01 04:21 | Communication Note ---
Date of Service: November 01, 2021 Made aware by RN of uncontrolled blood pressure. SBP 150-1 90s from yesterday a.m. Cardiac rate 70s AP Hypertensive urgency Change Toprol to Coreg. Continue current Amlodipine dose at 5 mg daily. (Patient with LE edema as per documentation) Will relay to AM provider.
[2021-11-01] MEDS ORDERED: carvediloL 3.125 MG TAB PO SCH (04:25)
[2021-11-01] MEDS: GABAPENTIN 300 MG CAP PO SCH ×2 (07:56→13:21)
[2021-11-01] MEDS: ASPIRIN 81 MG ECTAB PO SCH (07:56)
[2021-11-01] MEDS: THIAMINE HCL 100 MG TAB PO SCH (07:56)
[2021-11-01] MEDS: ATORVASTATIN 40 MG TAB PO SCH (07:57)
[2021-11-01] MEDS: busPIRone 5 MG TAB PO SCH (07:57)
[2021-11-01] MEDS: FOLIC ACID 1 MG TAB PO SCH (07:57)
[2021-11-01] MEDS: NICOTINE 21 MG/24 HR TDSY TD SCH (07:58)
[2021-11-01] MEDS: ARIPIprazole 1 MG/ML ORAL SOLN 150 ML BTL PO SCH (07:58)
[2021-11-01] MEDS: TRIAMCINOLONE ACET 0.1% OINT 15 GM TUBE TOP SCH (08:01)
[2021-11-01] MEDS: INSULIN ASPART PER UNIT SC SCH ×4 (08:06→16:51)
[2021-11-01 08:12] LABS: BUN Creatinine Ratio 21.3 (10-20); Calcium 9.2 mg/dl (8.5-10.1); Creatinine Clr Calc Pharmacy 69.6 ml/min; Est GFR (Non-African American) 50.9 ml/min; Potassium 5.5 mmol/L (3.5-5.1)
[2021-11-01] MEDS ORDERED: SODIUM CHLORIDE 0.9% 1000ML 1,000 ML IV SCH (08:45)
--- NOTE | 2021-11-01 08:46 | Pharmacy Report ---
Pharmacy Glycemic Short Note 2 - Date of Service November 01, 2021 - Glycemic Short BSG Results (Last 24 hours): 10/31/21 10/31/21 10/31/21 08:13 11:39 16:31 Glucose 234 H POC Glucose 286 H 243 H 10/31/21 10/31/21 11/01/21 20:26 20:35 07:26 Glucose 169 H 193 H POC Glucose 174 H 11/01/21 07:26 Glucose POC Glucose 204 H OUTPATIENT ANTIDIABETIC REGIMEN: * Jardiance 10 mg PO daily * Metformin ER 500 mg PO daily * Glipizide ER 10 mg PO daily * HbA1c = 7.7% (10/26/21) ASSESSMENT: 11/01 * BSGs elevated yesterday with persistently elevating fasting BSGs over past several days (204 mg/dL this morning) * Received 73 units of insulin yesterday (35 units of basal and 38 units of prandial/correctional bolus) * Previous inpatient glycemic data shows significantly increased insulin r equirements * Plan to tighten Novolog and increase basal insulin today 10/29 * Patient received total of 33 units of insulin yesterday, of which only 7 units were basal * Fasting BSG elevated at 268 mg/dL - PO intake increasing each day, will titrate of to basal 12 units for this morning * Will tighten CF/CR with AM check 10/28 * 56 yo M admitted on 10/25/21 secondary to dehydration. Pharmacy was consulted last evening to assist with inpatient glycemic management. Patient is well known to this service. Outpatient regimen has changed significantly since last time patient was on this service. * After reviewing [facility] note from 10/22/21 in [facility], appears patient is homeless and sleeping in car a lot. Medical compliance has been an issue. However, A1c is best it's been since 2019. Holding oral antidiabetic medications while admitted. * Received 21 units of insulin on 10/25/21 - 7 units basal + 14 units bolus. BSGs were: 190-633-947-255 mg/dL. * Received 27 units of insulin yesterday - 7 units basal + 20 units bolus. BSGs were: 267-272-(53-43-63-85)-139 mg/dL. Overnight checks: 169-247. * Hypoglycemia likely related to large bolus dose received at lunchtime. Required 30 grams of carbs to correct hypoglycemia. Asymptomatic. * No change to current basal dose. Will continue with current Novolog regimen and monitor BSGs today. May need to loosen Novolog this afternoon. Did loosen goal range to hopefully prevent further hypoglycemia. PLAN FOR INPATIENT GLYCEMIC CONTROL: * Hold outpatient oral diabetes medications * Basal insulin * Lantus 30 units SC daily * Lantus 10-30 units SC HS (see EHR for details) * Bolus insulin * NovoLog per scale ACHS or Q6hrs while NPO * Goal Range: Low 120 mg/dL - High 150 mg/dL * Correction Factor: 15 mg/dL/unit with breakfast, 20 mg/dL/unit with lunch, dinner, and at HS * Nutritional / Prandial insulin per carb ratio of 1 unit per 5 grams CHO consumed with breakfast and 1 unit per 6 grams CHO consumed with lunch, dinner, and at HS
[2021-11-01] MEDS ORDERED: amLODIPine BESYLATE 5 MG TAB PO SCH (09:00)
[2021-11-01] MEDS ORDERED: LANTUS PER UNIT CHARGE SQ SCH ×2 (09:00→21:00)
[2021-11-01] MEDS ORDERED: PATIROMER CALCIUM SORBITEX 8.4 GM PACK PO SCH (11:00)
[2021-11-01 15:22] VITALS: TEMP 97.9; O2SAT 91
[2021-11-01 16:54] LABS: Calcium 9.3 mg/dl (8.5-10.1); Est GFR (African American) 55.5 ml/min; Est GFR (Non-African American) 47.8 ml/min; Potassium 5.2 mmol/L (3.5-5.1)
[2021-11-01 17:59] VITALS: BP 142/84; PULSE 71
--- NOTE | 2021-11-01 18:34 | Discharge Summary ---
Date of Service November 01, 2021 Admission HPI Per Admitting Provider DATE OF ADMISSION: 10/25/2021. CHIEF COMPLAINT: Fall, ONDINA, alcoholism. HISTORY OF PRESENT ILLNESS: This is a 56-year-old male with past medical history significant for type 2 diabetes, chronic kidney disease stage III, hyperlipidemia, ongoing tobacco abuse, ongoing alcoholism, emphysema, obstructive sleep apnea, noncompliant with CPAP, hypertension, CAD, fatty liver, depression, anxiety disorder, history of anemia, currently living in an hotel as per patient presents because he fell a couple of days ago from the chair while sleeping, he hit his head, some headache and neck pain, had some abrasion on the head. He thought he is getting dehydrated and it seems that he passed out in a vehicle. He was brought into the Emergency Department. Currently, somewhat drowsy. States he is drinking one-fifth of vodka every day, smoking 1 pack of cigarettes daily. Has some blurred vision, has some dizziness, no runny nose. He is having some sore throat and coughing. Denies any chest pain. No shortness of breath, no nausea, no abdominal pain. Did not move his bowels for last 4 days. Normal bladder movements, hemodynamically stable. Admission Exam Per Admitting Provider GENERAL: The patient is drowsy, not in acute distress. VITAL SIGNS: Temperature 37.2, pulse 86, respiratory rate 20, blood pressure 147/84, oxygen 92% on room air. HEENT: Some bruising on the forehead. Pupils equal, round and reactive to light. Oral mucosa moist. NECK: No JVD, no neck masses. CARDIOVASCULAR: S1 and S2 heard. Regular rate and rhythm. No murmur, no gallop. RESPIRATORY SYSTEM: Normal AP diameter. No accessory muscle use. No wheezing, no crackles. ABDOMEN: Soft, bowel sounds present, nontender, no distention. CENTRAL NERVOUS SYSTEM: Alert and oriented. Speech is clear. Obeys simple commands. No facial droop. Moves extremities. EXTREMITIES: Bilateral lower extremity edema present and erythematous changes seen and somewhat warm to touch. Principal Diagnosis ONDINA (acute kidney injury): Acute dehydration Acute kidney injury Hyperkalemia Alcohol abuse Ambulatory dysfunction Alcohol withdrawal B/L Lower extremity edema Hypertension: Coronary artery disease H/O Cardiomyopathy Diabetes type 2 Chronic pancytopenia: Chronic pain: Tobacco use disorder: CATALINO: Discharge Exam General- No acute distress Head- atraumatic Eyes- PERRL, EOMI, ENT- oropharynx clear Neck- supple, no JVD Lungs- clear to auscultation Heart- regular rhythm; no murmur Abdomen- normal bowel sounds, soft, nontender Extremities- no calf tenderness, +edema Neuro- alert, oriented x 3; PERRL, EOMI; no facial palsy; no dysarthria Skin- warm & dry, erythematous changes that pt attributed with sunburn Discharge Data Allergies Allergy/AdvReac Type Severity Reaction Status Date / Time No Known Allergies Allergy Verified 10/25/21 22:53 Consultations 10/25/21 22:13 ED Decision to Admit Stat 11/01/21 07:47 Consult Nephrology Routine Ordered Studies 10/25/21 18:50 CT head/brain wo con Stat 10/26/21 00:04 US venous doppler LE Urgent BILATERAL LOWER EXTREMITY VENOUS DOPPLER HISTORY: Acute pain and swelling of the lower extremities swelling and erythema b/l lower extremity. DVT? COMPARISON STUDY: Doppler study 06/21/2021 FINDINGS: There is normal compressibility, flow, and augmentation within the bilateral lower extremity deep venous systems. Right inguinal chain lymph nodes measure up to 3.1 x 1.2 x 2.6 cm. Left inguinal chain lymph nodes measure up to 2.8 x 1.0 x 2.4 cm. These are likely benign and demonstrate thin cortices with central fatty marlon. IMPRESSION: No DVT within the right or left lower extremity. ACT 112: Negative or not required by law. Electronically signed by: Suhas Ramos M.D. 10/26/2021 6:40 AM Dictated:10/26/2139 Transcribed: 10/26/2139 CT head/brain wo con CLINICAL HISTORY: fall with bruising to the forehead COMPARISON STUDY: 05/28/2021 CT DOSE: 691.05 mGy.cm TECHNIQUE: Standard CT of the Brain was performed without IV contrast. A dose lowering technique was utilized adhering to the principles of ALARA. FINDINGS: Extraaxial space: There is no evidence for subdural hematoma. There are no extra-axial fluid collections. Ventricles and cisterns: The ventricles are normal in size and configuration. There is no evidence for midline shift or mass effect. Parenchyma: There is no subarachnoid or intraparenchymal hemorrhage. There is no evidence for an acute infarct or cerebral edema. There is homogeneous attenuation of the brain parenchyma. There are no gross mass lesions. Osseous structures: There is no evidence for an acute fracture. Only mild residual mucosal thickening is seen involving the maxillary antra bilaterally. The remaining visualized paranasal sinuses are clear. The mastoid air cells are clear bilaterally. Soft tissues: There is no evidence for focal soft tissue swelling. IMPRESSION: 1. No acute intracerebral pathology. 2. Mild residual bilateral maxillary sinusitis. ACT 112: Negative or not required by law. Electronically signed by: Jonny Mccloud M.D. 10/25/2021 8:09 PM Dictated:10/25/212006 Transcribed: 10/25/212006 XR chest 1V portable CLINICAL HISTORY: weakness. Evaluate cardiopulmonary status 09/14/2021 COMPARISON STUDY: No previous studies for comparison. TECHNIQUE: 1 view of the chest FINDINGS: Single frontal view of the chest demonstrates the cardiomediastinal silhouette to be within normal limits. The lungs are clear of alveolar opacities. There is no evidence for pleural effusion. There is no evidence for vascular congestion. There is no acute osseous pathology. IMPRESSION: 1. No acute cardiopulmonary disease. ACT 112: Negative or not required by law. Electronically signed by: Jonny Mccloud M.D. 10/25/2021 7:07 PM Dictated:10/25/211905 Transcribed: 10/25/211905 Hospital Course (1) ONDINA (acute kidney injury): (2) Acute dehydration: 56 yr male with H/O Uncontrolled DM II, HTN, HLD, alcohol abuse, alcohol withdrawal seizure, CAD s/p stent, chronic back pain, untreated CATALINO, tobacco use, neuropathy, CKD III presented to ER with fall and dehydration and found to have acute kidney injury. Acute kidney injury Creatinine on admission 2.7 Received IVF Creatinine 1.5 today Continue to hold losartan and lasix Starting on gentle IVF x 1 L Avoid nephrotoxic agents Continue monitor BMP Hyperkalemia Potassium 5.4 today Losartan on hold Continue gently IVF Consider to give Veltassa Check BMP later Alcohol abuse Alcohol withdrawal Pt said last alcohol drink was on Monday Case management said patient has been to multiple alcohol inpatient rehab in the past On alcohol withdrawal protocol with Librium and Ativan Counseling on alcohol cessation Continue thiamine and folic acid No sign of alcohol withdrawal and DT noted Pt is not interested to go to inpatient alcohol rehab Continue monitor closely for alcohol withdrawal symptoms and DT B/L Lower extremity edema H/O Chronic LE edema, Chronic Venous stasis Venous Doppler:No DVT within the right or left lower extremity Received IV ceftriaxone on admission that was discontinued since there was no evidence of infection Continue monitor for sign of cellulitis Hypertension: Noncompliant with medications Continue metoprolol succinate, Amlodipine Will resume Losartan in AM Continue monitor BP Unsteady gait Due to alcohol abuse Fall precaution Will give a script for a cane CAD: S/p stent H/O Cardiomyopathy Echo in 2020 EF 55% troponin on admission negative EKG showed no signs of acute ischaemia Continue aspirin, metoprolol, statin DM II Most recent A1c: 7.7 on 11/08 Continue to hold oral diabetes home medications Episodes of hypoglycemia Pharmacy on board for glycemic management Continue monitor BS closely Chronic pancytopenia: Likely due to chronic alcoholism Monitor CBC Chronic pain: On Suboxone Tobacco use disorder: Smoking cessation encouraged Nicotine patch CATALINO: H/O noncompliance with CPAP DVT Px: On Lovenox SQ daily if renal function worsening, consider to change to heparin Code Status Full Code Total Time Total Time Spent Total Time Spent (In Minutes): 45 minutes Discharge Plan Discharge Items Patient Disposition: Home - Self-Care Reason For Visit: DEHYDRATION Discharge Diagnosis: ONDINA (acute kidney injury): Acute dehydration Acute kidney injury Hyperkalemia Alcohol abuse Ambulatory dysfunction Alcohol withdrawal B/L Lower extremity edema Hypertension: Coronary artery disease H/O Cardiomyopathy Diabetes type 2 Chronic pancytopenia: Chronic pain: Tobacco use disorder: CATALINO: Activity: Resume your previous activity Non-emergency contact: Primary Care Provider and Medicaid Plan Compliance Director Call non-emergency contact if: you have any medication questions Follow-up/Referrals: Charity Reed MD [Primary Care Provider] - (Date & Time 11/04/2021 10:20 AM Provider Charity Reed MD Department General Internal Medicine [facility] ) Diet: Heart Healthy Addtl Attending Provider Instructions: Recommended for you to stay for tonight to check lab for your kidney and potassium, but since you have some personal problems about your car, i ll discharge you. please follow up with the discharge instructions. Follow up with your primary care provider 11/04/2021 @ 10:20 AM Charity Reed MD Department General Internal Medicine [facility] Follow up with nephrology dr. Cornell for your kidney in 1 to 2 weeks Follow up with the Suboxone clinic Check BMP on Monday to monitor your potassium and renal function Continue monitor your blood pressure and bring your blood pressure log at your next appointment with your provider Follow up a low potassium diet Counseling on alcohol cessation Counseling on smoking cessation Fall precaution Amlodipine increased to 10mg daily ( for your blood pressure) Hold Losartan for now due to elevate potassium. Seek medical attention if your symptoms worsening. Pending Studies at Discharge: No Stand-Alone Forms: [facility], Smoking Cessation Medications and DC Order Prescriptions: New amlodipine 10 mg tablet 10 mg PO DAILY Qty: 30 0RF Continued furosemide 40 mg tablet 40 mg PO QAM thiamine HCl (vitamin B1) 100 mg Tablet 100 mg PO QAM nitroglycerin 0.4 mg tablet, sublingual 0.4 mg sublingual .EVERY 15 MIN MDD 3 doses in 15 minutes PRN (Reason: Chest Pain) folic acid 1 mg Tablet 1 mg PO QAM metoprolol succinate 50 mg tablet extended release 24 hr 50 mg PO DAILY mirtazapine 15 mg Tablet 15 mg PO HS empagliflozin 10 mg Tablet 10 mg PO QAM glipizide 10 mg Tablet Extended Release 24hr 10 mg PO QAM triamcinolone acetonide 0.1 % ointment 1 applic TOPICAL BID Rx Instructions: apply to bilateral forearms till better metformin 500 mg Tablet Extended Release 24hr 500 mg PO QAM atorvastatin 80 mg tablet 80 mg PO QAM aspirin 81 mg Tablet,Delayed Release (Dr/Ec) 81 mg PO QAM trazodone 100 mg Tablet 100 mg PO HS PRN (Reason: Sleep) buspirone 10 mg Tablet 10 mg PO QAM gabapentin 300 mg capsule 300 mg PO QID aripiprazole 2 mg Tablet 2 mg PO QAM naloxone [Narcan] 4 mg/actuation [place],Non-Aerosol 4 mg INTRANASAL DAILY PRN (Reason: overdose) buprenorphine-naloxone 8-2 mg tablet, sublingual 1 tab SUBLINGUAL BID Discontinued losartan 50 mg tablet 100 mg PO QAM amlodipine 5 mg tablet 5 mg PO QAM Discharge Orders: Discharge Order (Routine); Ordered 11/01/21 Ordered By: Ryan Campbell/Other Patient Handouts: Alcohol Withdrawal: What to Expect, ED Dehydration (Adult), ED Leg Swelling in Both Legs Admission Data Admit Date/Time: 10/25/21 23:26 Attending Provider: Ryan Akers Admit Provider: Jonathan Payne Primary Care Provider: Charity Reed Other Providers: Jonathan Payne ; Mirza Moreno ; Amber Cornell Other Interventions: Discharge Summary Assessment (RN) Last Done: 11/01/21 17:50
--- NOTE | 2021-11-01 21:55 | Nephrology Consultation ---
Date of Consultation November 01, 2021 Assessment & Plan (1) History of acute renal failure: baseline creatinine 1.3-1.4; improved somewhat with IV fluids and w/ holding ARB, lasix. no indication for urgent nephro care but needs close follow up to manage high K (?RTA 4), uncontrolled HTN (may be situational/anxiety; too far out now for withdrawal); and to monitor renal function -agree w/ increasing amlodipine; monitor for worsened edema wtih this but for now preferable to high K -needs hospital discharge appt w/ nephro in 2-3 wks for further evaluation of CKD, HTN, edema w/ any neph physician nearest where he is staying -recommend follow up with PCP, Dr Reed, w/in 48 hrs of d/c for BP check and bmp to be ordered by PCP -NO NSAIDS Care coordinated with Dr Akers; pt very anxious about few belongings; ideally would stay another night but worry his HTN will only worsen w/ this anxiety; plan close in follow up as above (2) Fluid retention in legs: -resume OP lasix at d/c -will need eval for nephrotic syndrome at d/c (3) Hyperkalemia: bmp after d/c as above; resume lasix; hold ARB for now History of Present Illness Reason for Consultation: ONDINA Requesting Physician: Dr Akers Attending Physician: Ryan Akers MD History of Present Illness 56 y/o M whom I'm asked to see for ONDINA was admitted here 10/26 with ONDINA and a fall in the setting of EtOH use. His presenting creatinine was 2.7. Other pmh includes type 2 diabetes, hyperlipidemia, ongoing tobacco and alcohol abuse w/ hx EtOH withdrawal seizures, emphysema, obstructive sleep apnea noncompliant with CPAP, hypertension, CAD s/p stent, fatty liver, depression, anxiety disorder, history of anemia, skin cancer s/p excision L upper arm per pt, chronic LBP. Pt also currently unhoused; tells me he lives in his car and is very anxious for hospital d/c b/c worried about his belongings in the car. His baseline creatinine is about 1.3; creatinine has improved since admission w/ med adjustment (holding losartan, lasix) and with IV fluid hydration. feels his edema is improved overall. no chest pain, no change in chronic excertional sob. notes some BL lower back pain and sciatica/claudication of lower extremities. no cough. no n/v or GI complaints. denies voiding concerns. rash chin dorsum R hand improving but states it looks like his skin cancer did. Allergies Allergy/AdvReac Type Severity Reaction Status Date / Time No Known Allergies Allergy Verified 10/25/21 22:53 Home Medications Medication Instructions Recorded Confirmed Type buprenorphine 8 mg-naloxone 2 mg 1 tab sublingual BID 09/15/21 10/25/21 History sublingual tablet aripiprazole 2 mg tablet 2 mg PO QAM 10/25/21 10/25/21 History aspirin 81 mg tablet,delayed 81 mg PO QAM 10/25/21 10/25/21 History release atorvastatin 80 mg tablet 80 mg PO QAM 10/25/21 10/25/21 History buspirone 10 mg tablet 10 mg PO QAM 10/25/21 10/25/21 History empagliflozin 10 mg tablet 10 mg PO QAM 10/25/21 10/25/21 History folic acid 1 mg tablet 1 mg PO QAM 10/25/21 10/25/21 History furosemide 40 mg tablet 40 mg PO QAM 10/25/21 10/25/21 History gabapentin 300 mg capsule 300 mg PO QID 10/25/21 10/25/21 History glipizide 10 mg tablet, extended 10 mg PO QAM 10/25/21 10/25/21 History release 24 hr metformin 500 mg tablet,extended 500 mg PO QAM 10/25/21 10/25/21 History release 24hr metoprolol succinate 50 mg 50 mg PO DAILY 10/25/21 10/25/21 History tablet,extended release 24 hr mirtazapine 15 mg tablet 15 mg PO HS 10/25/21 10/25/21 History naloxone 4 mg/actuation nasal 4 mg intranasal DAILY PRN overdose 10/25/21 10/25/21 History spray (Narcan) nitroglycerin 0.4 mg sublingual 0.4 mg sublingual .EVERY 15 MIN 10/25/21 10/25/21 History tablet PRN Chest Pain thiamine HCl (vitamin B1) 100 mg 100 mg PO QAM 10/25/21 10/25/21 History tablet trazodone 100 mg tablet 100 mg PO HS PRN Sleep 10/25/21 10/25/21 History triamcinolone acetonide 0.1 % 1 applic topical BID 10/25/21 10/25/21 History topical ointment amlodipine 10 mg tablet 10 mg PO DAILY #30 tabs 11/01/21 Rx Patient History Medical History Alcohol abuse Alcohol use disorder Alcohol use disorder, severe, dependence Alcohol withdrawal syndrome Bilateral edema of lower extremity Chronic anemia Diabetes mellitus type 2 with complications TONEY (dyspnea on exertion) Edema Elevated troponin HTN (hypertension) Mood disorder Neuropathy NSTEMI (non-ST elevated myocardial infarction) Obesity CATALINO (obstructive sleep apnea) CATALINO (obstructive sleep apnea) Proteinuria Smoking Tobacco use disorder Type 2 diabetes mellitus Surgical History History of cardiac catheterization 1 ELIESER to proximal OM by Dr. Guerrero on 01/01/19 History of lymph node biopsy Family History Other Diabetes Heart disease Hypertension Social History Smoking Status: Current every day smoker Tobacco Type: Cigarettes Years Smoked: 39; Cigarettes Per Day: 20; Second Hand Exposure: No; Do You Dip or Chew Tobacco: No; Tobacco Cessation Education Requested by Patient: No Hx Alcohol Use: Yes Alcohol type: hard liquor Alcohol type Comment: 1/2 gallon vodka a day Hx Substance Use: Yes Last Used Substance: Unknown Last Used Substance Other:: Used over the weekend Substance Use Type Other:: patient said "I've used it all" Preferred Language: Algerian Communication Ability: Effective Teacher Private Required: No Beliefs That Will Affect Care: None marital status: Single Current Living Situation: Alone Current Living Situation Comment: Living in car current occupational status: unemployed How many Children do You have: 2 Feels Safe at Home: Yes Safety Concerns: Feels Safe At This Time Assistive Devices: None Review of Systems Review of Systems: All systems reviewed & are unremarkable except as noted in HPI & below Physical Exam Constitutional: well developed, well nourished, + obese and cooperative; no acute distress Eyes: EOM intact bilaterally ENMT: Ears: no external ear abnormality Nose: no external nose abnormality Mouth: + dry oral mucous membranes Neck: no nuchal rigidity Respiratory: normal respiratory effort Auscultation: + diminished lung sounds Cardiovascular: Rate/Rhythm: regular rate and regular rhythm Heart Sounds: + murmur Extremities: + edema (2+ indurated pretibial) Gastrointestinal (Abdomen): Inspection/Auscultation: normal bowel sounds Percussion/Palpation: abdomen soft; abdomen nontender Musculoskeletal: Extremities: strength 5/5 throughout Skin: erythematous generally; rather vesicular rashdorsum R hand Neurologic: maza, fluent speech, no tremor Psychiatric: Orientation: oriented x 3 Speech: + pressured speech (slight) Results & Data ([facility]) Vital Signs (Past 12 Hours) Vital Signs Temp Pulse Pulse Resp BP BP Pulse Ox 11/01/21 17:50 36.6 C 71 18 154/82 H 142/84 H 91 11/01/21 14:20 72 11/01/21 15:21 36.6 C 71 18 176/84 H 91 11/01/21 11:00 36.4 C L 70 16 164/96 H 95 O2 Del Method 11/01/21 17:50 11/01/21 14:20 11/01/21 15:21 Room Air 11/01/21 11:00 Room Air Laboratory Results 10/28/21 08:15 11/01/21 16:21
== END 2021-11-01 18:37 | disposition home or self-care (01) | DRG 683 ==
LOC: ED 18:44 → EDINP 23:26 → SUATTDRO 23:26 → 2N 10-26 00:46
DX: I13.0 Hypertensive heart and chronic kidney disease with heart failure and stage 1 through stage 4 chronic kidney disease, or unspecified chronic kidney disease; W07.XXXA Fall from chair, initial encounter; E86.0 Dehydration; Z79.891 Long term (current) use of opiate analgesic; E11.649 Type 2 diabetes mellitus with hypoglycemia without coma; I87.8 Other specified disorders of veins; Z91.19 Patient's noncompliance with other medical treatment and regimen; E87.5 Hyperkalemia; E11.42 Type 2 diabetes mellitus with diabetic polyneuropathy; R94.8 Abnormal results of function studies of other organs and systems; Z79.84 Long term (current) use of oral hypoglycemic drugs; Z95.5 Presence of coronary angioplasty implant and graft; I16.0 Hypertensive urgency; R51.9 Headache, unspecified; G89.29 Other chronic pain; I50.32 Chronic diastolic (congestive) heart failure; G47.33 Obstructive sleep apnea (adult) (pediatric); E78.5 Hyperlipidemia, unspecified; M54.2 Cervicalgia; F32.A Depression, unspecified; N17.9 Acute kidney failure, unspecified; D61.818 Other pancytopenia; N18.30 Chronic kidney disease, stage 3 unspecified; Z59.01 Sheltered homelessness; R26.81 Unsteadiness on feet; I25.10 Atherosclerotic heart disease of native coronary artery without angina pectoris; F41.1 Generalized anxiety disorder; E11.22 Type 2 diabetes mellitus with diabetic chronic kidney disease; Z91.14 Patient's other noncompliance with medication regimen; Z79.82 Long term (current) use of aspirin; R60.0 Localized edema; F10.20 Alcohol dependence, uncomplicated; Z79.899 Other long term (current) drug therapy; F17.210 Nicotine dependence, cigarettes, uncomplicated

== ENCOUNTER 2021-11-13 20:12 | Inpatient (IN) ==
[2021-11-13] MEDS ORDERED: SODIUM CHLORIDE 0.9% 1000ML 1,000 ML IV ONE (21:01)
[2021-11-13] MEDS ORDERED: ACETAMINOPHEN 1,000 MG/100 ML VIAL IV STA (21:14)
[2021-11-13 21:45] LABS: Basophils # (auto) 0.03 K/uL (0-0.2); Basophils % (auto) 0.5 %; Eosinophils # (auto) 0.33 K/uL (0-0.50); Eosinophils % (auto) 5.8 %; Hematocrit (blood only) 34.1 % (40.1-51.0); Hemoglobin 11.2 g/dl (14.0-18.0); Immature Granulocytes # (auto) 0.01 K/uL (0.00-0.02); Immature Granulocytes % (auto) 0.2 %; Lymphocytes # (auto) 2.09 K/uL (1.2-3.4); Lymphocytes % (auto) 36.5 %; Mean Corpuscular Hemoglobin 31.2 pg (25.0-34.0); Mean Corpuscular Hgb Conc 32.8 g/dL (32.0-36.0); Mean Platelet Volume 9.7 fL (9.4-12.4); Monocytes # (auto) 0.69 K/uL (0.24-0.82); Monocytes % (auto) 12.1 %; Neutrophils # (auto) 2.57 K/uL (1.4-6.5); Neutrophils % (auto) 44.9 %; Platelet Count 249 K/uL (130-400); RDW Coefficient of Variation 12.7 % (11.5-14.5); RDW Standard Deviation 44.3 fL (36.4-46.3); Red Blood Count 3.59 M/uL (4.63-6.08); White Blood Count 5.72 K/ul (4.8-10.8)
[2021-11-13 22:05] LABS: Albumin Globulin Ratio 0.8 (0.9-2); Albumin Level 3.2 gm/dl (3.4-5.0); BUN Creatinine Ratio 14.1 (10-20); Bilirubin,Total 0.4 mg/dl (0.2-1.0); Calcium 8.8 mg/dl (8.5-10.1); Creatinine Clr Calc Pharmacy 54.5 ml/min; Est GFR (African American) 44.1 ml/min; Globulin 3.8 gm/dl (2.5-4.0); Magnesium 1.8 mg/dl (1.7-2.4); Phosphorus 3.4 mg/dl (2.5-4.9); Potassium 4.2 mmol/L (3.5-5.1)
--- NOTE | 2021-11-13 22:06 | CT Scan Report ---
CT SCAN OF THE ABDOMEN AND PELVIS WITHOUT IV CONTRAST CLINICAL HISTORY: Lower abdominal pain. Renal insufficiency. COMPARISON STUDY: Abdominal ultrasound dated 10/24/2020. TECHNIQUE: CT scan of the abdomen and pelvis is performed from the lung bases to the proximal femora. Images are reviewed in the axial, sagittal, and coronal planes. IV contrast was not administered for this examination. A dose lowering technique was utilized adhering to the principles of ALARA. CT DOSE: 977.25 mGy.cm FINDINGS: Lung bases: The heart is normal in size and without pericardial effusion. The coronary arteries are d ensely calcified. The lung bases are clear noting mild bibasilar atelectasis. Liver: The unenhanced liver is enlarged, measuring 20.1 cm in length. The liver demonstrates diffusel y diminished attenuation indicating steatosis. Fatty sparing is seen adjacent to the gallbladder bear a. There is no intrahepatic biliary ductal dilatation. Gallbladder: Unremarkable. Spleen: Normal in size and attenuation. Pancreas: The unenhanced pancreas is moderately atrophic and grossly unremarkable. Adrenal glands: Unremarkable. Kidneys: The unenhanced kidneys are normal in size and without hydronephrosis. There are no renal chris culi identified. There is no evidence of contour deforming renal mass lesion. Abdominal vasculature: The abdominal aorta is normal in course and caliber noting moderate atheroscle rotic calcification. Bowel: There is no bowel obstruction. Ntsh-ik-yezgywck fecal retention is seen throughout the colon. The appendix is well-visualized and normal. Peritoneum: There is no intraperitoneal free air or abdominal ascites. There is a fat-containing umbi lical hernia. Lymphadenopathy: None. Pelvic viscera: The bladder is partially decompressed and grossly unremarkable. The prostate and semi nal vesicles are normal as visualized. There are bilateral fat-containing inguinal hernias. Skeletal structures: The skeletal structures are osteopenic. Mild lumbosacral spondylosis is observed . No lytic or blastic lesions are seen. IMPRESSION: 1. No acute infectious or inflammatory findings are identified in the abdomen or pelvis. 2. Hepatomegaly with hepatic steatosis. 3. Advanced coronary artery calcification. 4. Additional findings as above. ACT 112: Negative or not required by law. Electronically signed by: Ivan Sprague M.D. 11/13/2021 10:03 PM
--- NOTE | 2021-11-13 23:07 | Ultrasound Report ---
ULTRASOUND TESTES AND SCROTUM CLINICAL HISTORY: Scrotal swelling/edema. COMPARISON STUDY: No priors. TECHNIQUE: Real-time, grayscale, and color Doppler sonography of the testes and scrotum is performed. Images are reviewed in the transverse and longitudinal planes. FINDINGS: The testes are normal in size and homogeneous in echotexture. The right testis measures 3.6 x 2.2 x 2 .9 cm and the left testis measures 4.1 x 2.4 x 2.9 cm. No intratesticular mass is seen. Testicular bl ood flow is normal and symmetric. Normal Doppler waveforms are identified in both testes. The epididymal heads are normal in appearance. The right epididymal head measures 1.7 cm in length an d the left epididymal head measures 1.1 cm in length. There are small left and moderate right hydroceles. No varicocele is seen. Diffuse scrotal wall thick ening is noted. IMPRESSION: 1. Unremarkable sonographic appearance of the testes. 2. Right larger than left hydroceles. 3. There is diffuse scrotal wall thickening. Clinical correlation will be required. ACT 112: Negative or not required by law. Electronically signed by: Ivan Sprague M.D. 11/13/2021 11:05 PM
[2021-11-13] MEDS ORDERED: THIAMINE HCL 100 MG in SYRINGE 9 ML IV STA (23:39)
[2021-11-14] MEDS ORDERED: ALBUMIN 25% 100 mL 25 GM/100 ML VIAL IV ONE (00:17)
[2021-11-14] MEDS ORDERED: FUROSEMIDE 40 MG/4 ML VIAL IV STA (00:17)
[2021-11-14] MEDS ORDERED: LANTUS PER UNIT CHARGE SQ STA (00:25)
[2021-11-14] MEDS ORDERED: FUROSEMIDE 40 MG/4 ML VIAL IV ONE (00:28)
[2021-11-14 00:48] LABS: Calcium 8.5 mg/dl (8.5-10.1); Creatinine Clr Calc Pharmacy 59.5 ml/min; Est GFR (Non-African American) 42.3 ml/min; Potassium 4.2 mmol/L (3.5-5.1)
[2021-11-14 01:04] LABS: Appearance Urine Clear (Clear); Bilirubin Urine Negative (Negative); Blood Urine Trace (Negative); Color Urine Yellow; Epithelial Cell Urine Auto >30 /lpf (0-5); Glucose Urine UA Trace (Negative); Ketones Urine Trace (Negative); Leukocyte Esterase Urine Negative (Negative); Nitrite Urine Negative (Negative); Protein Urine 4+ (Negative); Specific Gravity Urine 1.025 (1.000-1.030); Urobilinogen Urine Negative (Negative)
--- NOTE | 2021-11-14 01:04 | XRay Report ---
SINGLE VIEW CHEST CLINICAL HISTORY: Renal failure. FINDINGS: 2 AP, portable, upright chest radiographs are compared to study dated 10/25/2021 and correlat ed with chest CT dated 01/16/2020. The heart is enlarged noting atherosclerotic calcification of the thoracic aorta. There is prominence of the pulmonary vasculature. Scarring/atelectasis is noted at th e lung bases. No airspace consolidation or large pleural effusion is identified. No pneumothorax is s een. The skeletal structures are osteopenic. The bony thorax is grossly intact. IMPRESSION: 1. Cardiomegaly with prominence of the pulmonary vasculature. Correlate clinically for evidence of fl uid overload/congestive change. 2. No airspace consolidation or large pleural effusion is identified. ACT 112: Negative or not required by law. Electronically signed by: Ivan Sprague M.D. 11/14/2021 1:02 AM
[2021-11-14] MEDS ORDERED: DEXTROSE 50% 50 ML SYRINGE IV PRN (01:14)
[2021-11-14] MEDS ORDERED: LORazepam 1 MG in SYRINGE 0.5 ML IV PRN (01:14)
[2021-11-14] MEDS ORDERED: LORazepam 2 MG in SYRINGE 1 ML IV PRN (01:14)
[2021-11-14] MEDS ORDERED: CARBOHYDRATES FOR HYPOGLYCEMIA PO PRN (01:14)
[2021-11-14] MEDS ORDERED: GLUCOSE 40% GEL 15 GM TUBE PO PRN (01:14)
[2021-11-14] MEDS ORDERED: GLUCOSE 10 TAB/TUBE PO PRN (01:14)
[2021-11-14] MEDS ORDERED: LORazepam 3 MG in SYRINGE 1.5 ML IV PRN (01:14)
[2021-11-14] MEDS ORDERED: Ativan IV Alcohol Withdrawal--Active Protocol IV PRN (01:14)
[2021-11-14] MEDS ORDERED: GLUCAGON FOR INJ 1 MG VIAL SQ PRN (01:14)
[2021-11-14 01:19] LABS: RBC Urine Automated 0-4 /hpf (0-4)
[2021-11-14 01:20] LABS: Bacteria Urine Automated 1+ (Negative)
[2021-11-14] MEDS: INSULIN ASPART PER UNIT SC SCH ×5 (02:36→20:45)
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
[2021-11-14 07:09] LABS: Basophils # (auto) 0.03 K/uL (0-0.2); Basophils % (auto) 0.5 %; Eosinophils # (auto) 0.31 K/uL (0-0.50); Eosinophils % (auto) 5.6 %; Hematocrit (blood only) 35.8 % (40.1-51.0); Hemoglobin 11.5 g/dl (14.0-18.0); Immature Granulocytes # (auto) 0.01 K/uL (0.00-0.02); Immature Granulocytes % (auto) 0.2 %; Mean Corpuscular Hemoglobin 30.8 pg (25.0-34.0); Mean Corpuscular Hgb Conc 32.1 g/dL (32.0-36.0); Mean Platelet Volume 9.7 fL (9.4-12.4); Monocytes # (auto) 0.67 K/uL (0.24-0.82); Monocytes % (auto) 12.1 %; Neutrophils % (auto) 43.6 %; Platelet Count 225 K/uL (130-400); RDW Coefficient of Variation 12.7 % (11.5-14.5); RDW Standard Deviation 45.1 fL (36.4-46.3); Red Blood Count 3.73 M/uL (4.63-6.08); White Blood Count 5.52 K/ul (4.8-10.8)
--- NOTE | 2021-11-14 07:32 | Urology Consultation ---
Date of Consultation November 14, 2021 Assessment & Plan (1) Hydrocele: The patient has been admitted secondary to acute on chronic renal insufficiency Concerning the patient's hydroceles there is no need for surgical intervention indicated - they are a benign finding that does not likely explain or contribute to his testicular discomfort Supervising Physician Co-Signing Physician Notes Agree with above Currently patient feeling well He has trace hydroceles bilaterally No intervention required Supportive care No specific follow-up required right now History of Present Illness Reason for Consultation: Bilateral hydroceles Attending Physician: Kesha Horan MD History of Present Illness This is a 56-year-old male who presented to the emergency department secondary to decreased urination over the past several days. The patient denies any fevers, shakes, or chills. He denies any cough or shortness of breath. The patient denies any back or flank pain. He does report a history of congestive heart failure and notes that his legs are usually swollen but he notes that they are slightly decreased from what they usually are. In addition the patient reported some testicular pain. He describes a sensation of being "kicked in the testicles" and he also noted some swelling of his testicles. He denies any dysuria or hematuria. He denies any penile discharge. Since admission to the hospital the patient has had labs and imaging which I ind ependent reviewed. The patient underwent a chest x-ray that showed no large pleural effusions. A CT scan of the patient's abdomen and pelvis showed no acute infectious or inflammatory findings in the abdomen or pelvis. He was noted to have hepatic steatosis. On the study the prostate gland and seminal vesicles were noted to be normal. There were bilateral fat-containing inguinal hernias. The patient did have a scrotal ultrasound that was unremarkable other than bilateral hydroceles with the right being greater than left. Labs included a CBC were white blood cell count was normal. His hemoglobin and hematocrit are 11.5 and 35.8. Platelet count is noted to be normal. Chemistry profile showed sodium and potassium are both normal. His BUN and creatinine were 27 and 1.9. This level of creatinine was slightly increased from his baseline which appears to run about 1.4-1.5. At the time of my interview the patient was resting comfortably in bed and he was in no distress. The patient did report to me that at the time of my visit his testicular swelling appeared to have decreased. Allergies Allergy/AdvReac Type Severity Reaction Status Date / Time No Known Allergies Allergy Verified 11/14/21 00:41 Home Medications Medication Instructions Recorded Confirmed Type buprenorphine 8 mg-naloxone 2 mg 1 tab sublingual BID 09/15/21 11/14/21 History sublingual tablet aspirin 81 mg tablet,delayed 81 mg PO QAM 10/25/21 11/14/21 History release atorvastatin 80 mg tablet 80 mg PO QAM 10/25/21 11/14/21 History folic acid 1 mg tablet 1 mg PO QAM 10/25/21 11/14/21 History furosemide 40 mg tablet 40 mg PO QAM 10/25/21 11/14/21 History glipizide 10 mg tablet, extended 10 mg PO QAM 10/25/21 11/14/21 History release 24 hr metformin 500 mg tablet,extended 500 mg PO QAM 10/25/21 11/14/21 History release 24hr metoprolol succinate 50 mg 50 mg PO DAILY 10/25/21 11/14/21 History tablet,extended release 24 hr naloxone 4 mg/actuation nasal 4 mg intranasal DAILY PRN overdose 10/25/21 11/14/21 History spray (Narcan) nitroglycerin 0.4 mg sublingual 0.4 mg sublingual .EVERY 15 MIN 10/25/21 11/13/21 History tablet PRN Chest Pain thiamine HCl (vitamin B1) 100 mg 100 mg PO QAM 10/25/21 11/14/21 History tablet trazodone 100 mg tablet 100 mg PO HS PRN Sleep 10/25/21 11/14/21 History triamcinolone acetonide 0.1 % 1 applic topical BID 10/25/21 11/13/21 History topical ointment amlodipine 10 mg tablet 10 mg PO DAILY #30 tabs 11/01/21 11/14/21 Rx gabapentin 600 mg tablet 600 mg PO QID 11/13/21 11/14/21 History insulin aspart U-100 100 unit/mL 1 sliding scale dose subcut WM 11/14/21 0 11/14/21 History subcutaneous solution (Novolog U-100 Insulin aspart) insulin detemir U-100 100 unit/mL 40 unit subcut HS 11/14/21 11/14/21 History (3 mL) subcutaneous pen (Levemir FlexTouch U-100 Insulin) Patient History Medical History Alcohol abuse Alcohol use disorder Alcohol use disorder, severe, dependence Alcohol withdrawal syndrome Bilateral edema of lower extremity Chronic anemia Diabetes mellitus type 2 with complications TONEY (dyspnea on exertion) Edema Elevated troponin HTN (hypertension) Mood disorder Neuropathy NSTEMI (non-ST elevated myocardial infarction) Obesity CATALINO (obstructive sleep apnea) CTAALINO (obstructive sleep apnea) Proteinuria Smoking Tobacco use disorder Type 2 diabetes mellitus Surgical History History of cardiac catheterization 1 ELIESER to proximal OM by Dr. Guerrero on 01/01/19 History of lymph node biopsy Family History Other Diabetes Heart disease Hypertension Social History Smoking Status: Former smoker Tobacco Type: Cigarettes Years Smoked: 39; Cigarettes Per Day: 20; Second Hand Exposure: No; Hx Alcohol Use: Yes Alcohol type: hard liquor Alcohol type Comment: 1/2 gallon vodka a day Hx Substance Use: Yes Last Used Substance: Unknown Last Used Substance Other:: Used over the weekend Substance Use Type Other:: patient said "I've used it all" Preferred Language: Central African Communication Ability: Effective Disaster Recovery Specialist Required: No Beliefs That Will Affect Care: None marital status: Single Current Living Situation: Homeless Current Living Situation Comment: Living in car current occupational status: unemployed How many Children do You have: 2 Feels Safe at Home: Hesitant to Answer Assistive Devices: Cane Review of Systems Constitutional: no fever and no chills Eyes: no eye pain Ear, Nose, Mouth, Throat: no ear pain Respiratory: no cough and no dyspnea Cardiovascular: no chest pain Gastrointestinal: no abdominal pain, no nausea and no vomiting Genitourinary: + as per Subjective / HPI; no dysuria, no urinary frequency or no penile discharge Musculoskeletal: no back pain Integumentary: no rash Neurologic: no localized weakness Physical Exam Constitutional: well developed and well nourished; no acute distress Eyes: no conjunctival abnormality ENMT: Ears: no hearing impairment and no external ear abnormality Mouth: no oropharynx abnormality Neck: trachea midline Respiratory: normal respiratory effort; no respiratory distress and no labored breathing Cardiovascular: Rate/Rhythm: regular rate and regular rhythm Gastrointestinal (Abdomen): Diminished soft, nonrigid, nondistended, nontender Musculoskeletal: Patient is noted to have bilateral lower extremity edema approximately 2+ bilaterally Skin: no rashes Neurologic: moves all extremities Psychiatric: A+Ox3, euthymic affect Genitourinary: Patient's penis/scrotum were examined. There is no erythema. They are nonpainful to palpation. I did not appreciate any masses. There are no open areas or areas of drainage. There is no crepitus in the tissue. There are no areas of eschar. Results & Data ([facility]) Vital Signs (Past 12 Hours) Vital Signs Temp Pulse Pulse Pulse Resp BP BP 11/14/21 02:50 36.4 C L 71 14 160/79 H 11/14/21 02:26 77 11/14/21 00:30 81 16 11/14/21 00:30 124/85 11/14/21 00:00 76 16 11/14/21 00:00 135/81 11/13/21 23:30 84 16 11/13/21 23:30 148/87 H 11/13/21 23:00 84 16 11/13/21 23:00 128/82 11/13/21 22:36 82 15 11/13/21 22:00 87 16 151/78 H 11/13/21 21:14 11/13/21 21:14 96 H 18 150/78 H 11/13/21 20:16 36.5 C 107 H 20 209/101 H Pulse Ox O2 Del Method 11/14/21 02:50 97 Room Air 11/14/21 02:26 11/14/21 00:30 90 11/14/21 00:30 11/14/21 00:00 92 11/14/21 00:00 11/13/21 23:30 92 11/13/21 23:30 11/13/21 23:00 90 11/13/21 23:00 11/13/21 22:36 94 11/13/21 22:00 92 11/13/21 21:14 Room Air 11/13/21 21:14 94 11/13/21 20:16 95 PG Care Time/CCT Total # of Minutes Spent Total Time Spent with Patient: Total time spent is greater than 50% in coordination of care (as documented) at patient's floor/unit and/or counseling patient: Coding Level of Care Code 90707 Inpt Consult Level 5 Diagnoses Hydrocele N43.3
[2021-11-14 07:36] LABS: BUN Creatinine Ratio 16.4 (10-20); Calcium 8.9 mg/dl (8.5-10.1); Creatinine Clr Calc Pharmacy 60.8 ml/min; Est GFR (African American) 50.4 ml/min; Est GFR (Non-African American) 43.5 ml/min
[2021-11-14] MEDS: METOPROLOL SUCC 50MG EXT REL TAB PO SCH (08:36)
[2021-11-14] MEDS: THIAMINE HCL 100 MG TAB PO SCH (08:36)
[2021-11-14] MEDS: ASPIRIN 81 MG ECTAB PO SCH (08:36)
[2021-11-14] MEDS: FOLIC ACID 1 MG TAB PO SCH (08:36)
[2021-11-14] MEDS: ATORVASTATIN 40 MG TAB PO SCH (08:36)
[2021-11-14] MEDS: amLODIPine BESYLATE 5 MG TAB PO SCH (08:36)
[2021-11-14] MEDS: BUPRENORPHINE/NALOXONE 8/2 MG TAB SL SCH ×2 (08:42→20:45)
--- NOTE | 2021-11-14 08:56 | Nephrology Consultation ---
Date of Consultation November 14, 2021 Assessment & Plan (1) Acute on chronic renal insufficiency: Stage 3a chronic kidney disease (HCC) (Primary), most likely secondary to longstanding uncontrolled diabetes. Nephrotic range proteinuria Acute on chronic renal failure, secondary to noncompliance with medications His serum creatinine fluctuates anywhere between 1-1.7, not surprisingly because he has been noncompliant with his medication and giving his financial problems.He is high risk for ESRD. Patient is currently living in a homeless skilled nursing and relying on food bank. He gets food stamps but he does not have a kitchen to prepare food. With this extreme social financial emotional and psychological challenges it will be extremely difficult to effectively manage him and his medical problem. -At the moment I would restart him on Lasix 40 mg daily ( from tmrw. as he already had iV lasix today with albumin), titrate his blood sugars. Will hold on ARB, this can be restarted later if his functions do not show any decline. -He has been on 50 mg of metoprolol , 10mg of amlodipine, with 40 of Lasix for blood pressure. Restart home medications. History of Present Illness Reason for Consultation: Acute on chronic kidney injury Attending Physician: Kesha Horan MD History of Present Illness 56 year old male with DM since age 24 on insulin, HTN also since his early 30s and w/ hx of urgency, alcoholism w/ hx of withdrawal seizures and serial rehab stays, HL, active tobacco abuse on nicoderm, CATALINO not on cpap, anxiety, class 2 obesity,Coronary artery disease with history of TN and stent but near normal ejection fraction.He also has alcoholic hepatitis with severe fatty liver but not quite liver cirrhosis,.CKD 3A ( Fluctuating SCr 1.0---1.7) but had nephrotic range proteinuria most likely secondary to longstanding uncontrolled diabetes. He was on Jardiance but not on MEAGAN/arb when last reviewed in the clinic and was started on Losartan 50 ( 10/22/21),last seen by Dr Alvarado on 10/22/21- SCr was 2.5 with eGFR of 30, PCR 3504, albumin 3.3, Recent admission (10/26) with AKIand a fall in the setting of EtOH use. His presenting creatinine was 2.7, losartan and lasix was held,SCr was 1.5 on 11/01. Patient is currently living in a homeless skilled nursing and relying on food bank. He gets food stamps but he does not have a kitchen to prepare food. With this extreme social financial emotional and psychological challenges it will be extremely difficult to effectively manage him and his medical problem.Not Compliant with medications. He presented to the emergency department secondary to decreased urination over the past several days. CT scan (abdominal pelvis) showed no acute infectious or inflammatory findings was noted to have hepatic steatosis. Scortal ultrasound was unremarkable other than bilateral hydrocele right greater than left.No surgical intervention is planned as inpatient. Serum creatinine was 1.7. He has been noncompliant with his medications He continues to make urine , has bilateral pedal edema and is comfortable at rest with no shortness of breath .A CT scan of the patient's abdomen and pelvis showed no acute infectious or inflammatory findings, no hydronephrosis, he was noted to have hepatic steatosis.Prostate gland and seminal vesicles were noted to be normal. There were bilateral fat-containing inguinal hernias. The patient did have a scrotal ultrasound that was unremarkable other than bilateral hydroceles with the right being greater than left. Allergies Allergy/AdvReac Type Severity Reaction Status Date / Time No Known Allergies Allergy Verified 11/14/21 00:41 Home Medications Medication Instructions Recorded Confirmed Type buprenorphine 8 mg-naloxone 2 mg 1 tab sublingual BID 09/15/21 11/14/21 History sublingual tablet aspirin 81 mg tablet,delayed 81 mg PO QAM 10/25/21 11/14/21 History release atorvastatin 80 mg tablet 80 mg PO QAM 10/25/21 11/14/21 History folic acid 1 mg tablet 1 mg PO QAM 10/25/21 11/14/21 History furosemide 40 mg tablet 40 mg PO QAM 10/25/21 11/14/21 History glipizide 10 mg tablet, extended 10 mg PO QAM 10/25/21 11/14/21 History release 24 hr metformin 500 mg tablet,extended 500 mg PO QAM 10/25/21 11/14/21 History release 24hr metoprolol succinate 50 mg 50 mg PO DAILY 10/25/21 11/14/21 History tablet,extended release 24 hr naloxone 4 mg/actuation nasal 4 mg intranasal DAILY PRN overdose 10/25/21 11/14/21 History spray (Narcan) nitroglycerin 0.4 mg sublingual 0.4 mg sublingual .EVERY 15 MIN 10/25/21 11/13/21 History tablet PRN Chest Pain thiamine HCl (vitamin B1) 100 mg 100 mg PO QAM 10/25/21 11/14/21 History tablet trazodone 100 mg tablet 100 mg PO HS PRN Sleep 10/25/21 11/14/21 History triamcinolone acetonide 0.1 % 1 applic topical BID 10/25/21 11/13/21 History topical ointment amlodipine 10 mg tablet 10 mg PO DAILY #30 tabs 11/01/21 11/14/21 Rx gabapentin 600 mg tablet 600 mg PO QID 11/13/21 11/14/21 History insulin aspart U-100 100 unit/mL 1 sliding scale dose subcut WM 11/14/2110/19 History subcutaneous solution (Novolog U-100 Insulin aspart) insulin detemir U-100 100 unit/mL 40 unit subcut HS 11/14/21 11/14/21 History (3 mL) subcutaneous pen (Levemir FlexTouch U-100 Insulin) Patient History Medical History Alcohol abuse Alcohol use disorder Alcohol use disorder, severe, dependence Alcohol withdrawal syndrome Bilateral edema of lower extremity Chronic anemia Diabetes mellitus type 2 with complications TONEY (dyspnea on exertion) Edema Elevated troponin HTN (hypertension) Mood disorder Neuropathy NSTEMI (non-ST elevated myocardial infarction) Obesity CATALINO (obstructive sleep apnea) CATALINO (obstructive sleep apnea) Proteinuria Smoking Tobacco use disorder Type 2 diabetes mellitus Surgical History History of cardiac catheterization 1 ELIESER to proximal OM by Dr. Guerrero on 01/01/19 History of lymph node biopsy Family History Other Diabetes Heart disease Hypertension Social History Smoking Status: Former smoker Tobacco Type: Cigarettes Years Smoked: 39; Cigarettes Per Day: 20; Second Hand Exposure: No; Hx Alcohol Use: Yes Alcohol type: hard liquor Alcohol type Comment: 1/2 gallon vodka a day Hx Substance Use: Yes Last Used Substance: Unknown Last Used Substance Other:: Used over the weekend Substance Use Type Other:: patient said "I've used it all" Preferred Language: [place] Communication Ability: Effective Checker In Required: No Beliefs That Will Affect Care: None marital status: Single Current Living Situation: Homeless Current Living Situation Comment: Living in car current occupational status: unemployed How many Children do You have: 2 Feels Safe at Home: Hesitant to Answer Assistive Devices: Cane Review of Systems Review of Systems: No shortness of breath Trace pedal edema Complains of pain in the lower abdomen and scrotal area. Physical Exam Physical Exam: Awake alert oriented x3 Normal speech no respiratory distress He does appear somewhat dishevelled Mucous membranes moist Neck is supple no JVD Chest bilateral clear to auscultation CVS S1-S2 regular abdomen is soft nontender obese Extremities extremity with trace edema Results & Data ([facility]) Vital Signs (Past 12 Hours) Vital Signs Temp Pulse Pulse Pulse Resp BP BP 11/14/21 08:01 36.3 C L 87 20 167/79 H 11/14/21 07:41 85 11/14/21 02:50 36.4 C L 71 14 11/14/21 02:26 77 11/14/21 00:30 81 16 11/14/21 00:30 124/85 11/14/21 00:00 76 16 11/14/21 00:00 135/81 11/13/21 23:30 84 16 11/13/21 23:30 148/87 H 11/13/21 23:00 84 16 11/13/21 23:00 128/82 11/13/21 22:36 82 15 11/13/21 22:00 87 16 151/78 H 11/13/21 21:14 11/13/21 21:14 96 H 18 BP Pulse Ox O2 Del Method 11/14/21 08:01 93 Room Air 11/14/21 07:41 11/14/21 02:50 160/79 H 97 Room Air 11/14/21 02:26 11/14/21 00:30 90 11/14/21 00:30 11/14/21 00:00 92 11/14/21 00:00 11/13/21 23:30 92 11/13/21 23:30 11/13/21 23:00 90 11/13/21 23:00 11/13/21 22:36 94 11/13/21 22:00 92 11/13/21 21:14 Room Air 11/13/21 21:14 150/78 H 94 Laboratory Results 11/14/21 06:39 11/14/21 06:39
--- NOTE | 2021-11-14 13:15 | Hospitalist Progress Note ---
Date of Service November 14, 2021 Assessment & Plan (1) Acute on chronic renal insufficiency: Plan Acute on chronic renal failure stage III Possibly acute on chronic exacerbation of HFpEF: Hypervolemic on exam at presentation including scrotal swelling and BLE edema Baseline creatinine around 1.5: Admitting creatinine of 1.91. Of note, patient noncompliant with his medication and has social/financial issues. Admitting CTAP without acute findings. Admitting CXR with concern of congestive vasculature. Status post IV fluids, creatinine downtrending. Nephrology on board, continue to hold ARB's, continue with Lasix for now. BMP in a.m., continue to monitor. I's and O's, maintain negative balance. Hydrocele: Admitting scrotal ultrasound with unremarkable appearance of the testes/diffuse scrotal wall thickening/right greater than left hydrocele. Patient has hydroceles bilaterally, urology evaluated, no acute intervention. Patient denies any discomfort at bedside exam. Patient reports his scrotal swelling has decreased after diuresis. Alcohol dependence/abuse: Patient's last drink was the night prior to arrival, ALEX S protocol, folate/thiamine. Telemetry monitoring. Other chronic medical conditions: HFpEF [EF 55 to 60% 2021 TTE], COPD, HTN, HLD, DM2, anxiety/mood disorder, chronic anemia, ongoing tobacco/alcohol abuse, chronic pain on Suboxone --->> continue with/resume home meds as and when appropriate. Sliding scale while inpatient. Nicotine patch as needed. Disposition: PT/OT to [facility] to assist with DC planning. DVT prophylaxis: Heparin subcu Full code Admission and Anticipated Discharge Date Admission Date: November 14, 2021 Subjective Patient seen and examined as a follow-up of acute on chronic renal failure. Patient was lying in bed, on room air, NAD, denies any new acute events overnight. Patient reports being constipated. Patient denies any chest pain or feeling of heart racing or belly pain or fever or chills. Patient reports cough at baseline. Physical Exam Physical Exam: GENERAL: Alert and oriented x3. NAD, on RA. Obese Class I. HEENT: No pallor, no icterus. Pupils equal, round and reactive to light. Oral mucosa moist. NECK: No JVD, no neck masses. HEART: S1 and S2 heard. Regular rate and rhythm. No murmur, no gallop. RESPIRATORY SYSTEM: Normal AP diameter. No accessory muscle use. No wheezing, no crackles. ABDOMEN: Soft, bowel sounds present, nontender, no distention. CENTRAL NERVOUS SYSTEM: No facial droop. Speech is clear. Obeys simple commands. Moves extremities. EXTREMITIES: trace to 1+ BLE edema, minimal erythema (chronic per pt), no warmth/tenderness. Results & Data Results & Data ([facility]) Vital Signs (Past 12 Hours) Vital Signs Temp Pulse Pulse Resp BP BP Pulse Ox 11/14/21 11:17 36.4 C L 83 20 159/82 H 94 11/14/21 08:30 11/14/21 08:01 36.3 C L 87 20 167/79 H 93 11/14/21 07:41 85 11/14/21 02:50 36.4 C L 71 14 160/79 H 97 11/14/21 02:26 77 O2 Del Method 11/14/21 11:17 Room Air 11/14/21 08:30 Room Air 11/14/21 08:01 Room Air 11/14/21 07:41 11/14/21 02:50 Room Air 11/14/21 02:26
[2021-11-14] MEDS: HEPARIN SOD 5,000 UNIT/0.5 ML VIAL SQ SCH ×2 (13:44→20:45)
[2021-11-15] MEDS: HEPARIN SOD 5,000 UNIT/0.5 ML VIAL SQ SCH ×3 (05:41→20:59)
[2021-11-15 06:28] LABS: Hemoglobin 11.5 g/dl (14.0-18.0); Mean Corpuscular Hemoglobin 30.5 pg (25.0-34.0); Mean Corpuscular Hgb Conc 31.9 g/dL (32.0-36.0); Mean Corpuscular Volume 95.5 fL (80.0-100.0); Mean Platelet Volume 10.3 fL (9.4-12.4); Platelet Count 215 K/uL (130-400); RDW Coefficient of Variation 12.4 % (11.5-14.5); RDW Standard Deviation 43.4 fL (36.4-46.3); Red Blood Count 3.77 M/uL (4.63-6.08); White Blood Count 4.97 K/ul (4.8-10.8)
[2021-11-15 07:02] LABS: BUN Creatinine Ratio 18.2 (10-20); Calcium 8.6 mg/dl (8.5-10.1); Creatinine Clr Calc Pharmacy 67.6 ml/min; Est GFR (African American) 57.2 ml/min; Est GFR (Non-African American) 49.4 ml/min; Magnesium 1.8 mg/dl (1.7-2.4); Phosphorus 3.8 mg/dl (2.5-4.9); Potassium 4.3 mmol/L (3.5-5.1)
--- NOTE | 2021-11-15 08:06 | Nephrology Progress Note ---
Date of Service November 15, 2021 Assessment & Plan (1) Acute on chronic renal insufficiency: Plan: Stage 3a chronic kidney disease (HCC) (Primary), most likely secondary to longstanding uncontrolled diabetes. Nephrotic range proteinuria Resolving acute on chronic renal failure, secondary to noncompliance with medications His serum creatinine fluctuates anywhere between 1-1.7, not surprisingly because he has been noncompliant with his medication and giving his financial problems.He is high risk for ESRD. Patient is currently living in a homeless custodial and relying on food bank. He gets food stamps but he does not have a kitchen to prepare food. With this ext carolyn social financial emotional and psychological challenges it will be extremely difficult to effectively manage his medical problems. -transitioning IV > PO lasix today >> to start Lasix 40 mg po daily, titrate his blood sugars. Will hold on ARB, this can be restarted later if his functions do not show any decline. -He has been on 50 mg of metoprolol , 10mg of amlodipine, with 40 of Lasix for blood pressure. continue these -defer to primary to d/c merlin, evaluate genital concerns as indicated; believe he could benefit from voiding trial Admission and Anticipated Discharge Date Admission Date: November 14, 2021 Subjective no interval events; worried about changes to his penis; no sob; still notable edema Review of Systems Review of Systems: All systems reviewed & are unremarkable except as noted in Subjective Physical Exam Constitutional: well developed and well nourished Eyes: EOM intact bilaterally ENMT: Ears: no external ear abnormality Nose: no external nose abnormality Mouth: + dry oral mucous membranes Neck: no nuchal rigidity Respiratory: normal respiratory effort Auscultation: + diminished lung sounds Cardiovascular: Rate/Rhythm: regular rate and regular rhythm Extremities: + edema (1+ indurated) Gastrointestinal (Abdomen): Inspection/Auscultation: normal bowel sounds Percussion/Palpation: abdomen soft; abdomen nontender Musculoskeletal: Extremities: strength 5/5 throughout Skin: no rashes, warm and dry Neurologic: maza, fluent speech, no tremor Psychiatric: Orientation: oriented x 3 Genitourinary: boyer present Results & Data ([facility]) Vital Signs (Past 12 Hours) Vital Signs Temp Pulse Pulse Resp BP BP Pulse Ox 11/15/21 07:38 74 11/15/21 06:47 36.5 C 72 20 126/81 95 11/15/21 03:57 36.6 C 76 20 163/82 H 98 11/14/21 23:56 36.6 C 77 20 131/76 92 11/14/21 23:40 78 11/14/21 21:50 O2 Del Method 11/15/21 07:38 11/15/21 06:47 Room Air 11/15/21 03:57 Room Air 11/14/21 23:56 Room Air 11/14/21 23:40 11/14/21 21:50 Room Air Laboratory Results 11/15/21 05:28 11/15/21 05:28
[2021-11-15] MEDS: amLODIPine BESYLATE 5 MG TAB PO SCH (08:38)
[2021-11-15] MEDS: ATORVASTATIN 40 MG TAB PO SCH (08:38)
[2021-11-15] MEDS: THIAMINE HCL 100 MG TAB PO SCH (08:39)
[2021-11-15] MEDS: INSULIN ASPART PER UNIT SC SCH ×4 (08:39→20:57)
[2021-11-15] MEDS: FUROSEMIDE 40 MG TAB PO SCH (08:39)
[2021-11-15] MEDS: METOPROLOL SUCC 50MG EXT REL TAB PO SCH (08:39)
[2021-11-15] MEDS: ASPIRIN 81 MG ECTAB PO SCH (08:39)
[2021-11-15] MEDS: FOLIC ACID 1 MG TAB PO SCH (08:39)
[2021-11-15] MEDS: BUPRENORPHINE/NALOXONE 8/2 MG TAB SL SCH ×2 (08:45→20:57)
[2021-11-15] MEDS: LANTUS PER UNIT CHARGE SQ SCH (08:45)
--- NOTE | 2021-11-15 13:50 | Hospitalist Progress Note ---
Date of Service November 15, 2021 Assessment & Plan (1) Acute on chronic renal insufficiency: Plan Acute on chronic renal failure stage III Possibly acute on chronic exacerbation of HFpEF: Hypervolemic on exam at presentation including scrotal swelling and BLE edema Baseline creatinine around 1.5: Admitting creatinine of 1.91. Of note, patient noncompliant with his medication and has social/financial issues. Admitting CTAP without acute findings. Admitting CXR with concern of congestive vasculature. Creatinine back to baseline. Nephrology on board, appreciate recommendation Continue with home Lasix, continue to hold home ARB. BMP in a.m., continue to monitor. I's and O's, maintain negative balance. Hydrocele: Admitting scrotal ultrasound with unremarkable appearance of the testes/diffuse scrotal wall thickening/right greater than left hydrocele. Patient has hydroceles bilaterally, urology evaluated, no acute intervention. Patient denies any discomfort at bedside exam. Patient reports his scrotal swelling/discomfort has decreased after diuresis. Alcohol dependence/abuse: Patient's last drink was the night prior to arrival, ALEX S protocol, folate/thiamine. Telemetry monitoring. Pt counselled against smoking/drinking multiple times. Pt states he would like to quit alcohol and would set himself up w/ alcoholic anonymous. Other chronic medical conditions: HFpEF [EF 55 to 60% 2021 TTE], COPD, HTN, HLD, DM2, anxiety/mood disorder, chronic anemia, ongoing tobacco/alcohol abuse, chronic pain on Suboxone --->> continue with/resume home meds as and when appropriate. Sliding scale while inpatient. Nicotine patch as needed. Disposition: PT/OT to [facility] to assist with DC planning. DVT prophylaxis: Heparin subcu Full code Admission and Anticipated Discharge Date Admission Date: November 14, 2021 Subjective Patient seen and examined as a follow-up of acute on chronic renal failure. Patient was grooming self in the room, standing, on room air, NAD, denies any ne w acute events overnight. Pt reports eating ok and moving bowels ok. Patient denies any chest pain or feeling of heart racing or belly pain or fever or chills. Patient reports cough at baseline. Physical Exam Physical Exam: GENERAL: Alert and oriented x3. NAD, on RA. Obese Class I. HEENT: No pallor, no icterus. Pupils equal, round and reactive to light. Oral mucosa moist. NECK: No JVD, no neck masses. HEART: S1 and S2 heard. Regular rate and rhythm. No murmur, no gallop. RESPIRATORY SYSTEM: Normal AP diameter. No accessory muscle use. No wheezing, no crackles. ABDOMEN: Soft, bowel sounds present, nontender, no distention. CENTRAL NERVOUS SYSTEM: No facial droop. Speech is clear. Obeys simple commands. Moves extremities. EXTREMITIES: trace BLE edema, minimal erythema (chronic per pt), no warmth/tenderness. Results & Data Results & Data ([facility]) Vital Signs (Past 12 Hours) Vital Signs Temp Pulse Pulse Resp BP BP Pulse Ox 11/15/21 12:00 36.9 C 74 18 143/86 H 94 11/15/21 07:38 74 11/15/21 06:47 36.5 C 72 20 126/81 95 11/15/21 03:57 36.6 C 76 20 163/82 H 98 O2 Del Method 11/15/21 12:00 Room Air 11/15/21 07:38 11/15/21 06:47 Room Air 11/15/21 03:57 Room Air
[2021-11-16] MEDS: HEPARIN SOD 5,000 UNIT/0.5 ML VIAL SQ SCH ×3 (05:33→21:00)
[2021-11-16 06:41] LABS: BUN Creatinine Ratio 22.6 (10-20); Calcium 8.4 mg/dl (8.5-10.1); Creatinine Clr Calc Pharmacy 63.4 ml/min; Est GFR (Non-African American) 45.7 ml/min; Magnesium 1.8 mg/dl (1.7-2.4); Potassium 4.3 mmol/L (3.5-5.1)
[2021-11-16] MEDS: METOPROLOL SUCC 50MG EXT REL TAB PO SCH (07:49)
[2021-11-16] MEDS: FOLIC ACID 1 MG TAB PO SCH (07:49)
[2021-11-16] MEDS: THIAMINE HCL 100 MG TAB PO SCH (07:49)
[2021-11-16] MEDS: amLODIPine BESYLATE 5 MG TAB PO SCH (07:49)
[2021-11-16] MEDS: ATORVASTATIN 40 MG TAB PO SCH (07:50)
[2021-11-16] MEDS: ASPIRIN 81 MG ECTAB PO SCH (07:50)
[2021-11-16] MEDS: FUROSEMIDE 40 MG TAB PO SCH (07:50)
[2021-11-16] MEDS: INSULIN ASPART PER UNIT SC SCH ×4 (08:19→20:53)
[2021-11-16] MEDS: LANTUS PER UNIT CHARGE SQ SCH (08:31)
[2021-11-16] MEDS: BUPRENORPHINE/NALOXONE 8/2 MG TAB SL SCH ×2 (08:36→20:53)
[2021-11-16] MEDS: NICOTINE 21 MG/24 HR TDSY TD SCH (13:41)
--- NOTE | 2021-11-16 14:52 | Hospitalist Progress Note ---
Date of Service November 16, 2021 Assessment & Plan (1) Acute on chronic renal insufficiency: Plan Acute on chronic renal failure stage III Possibly acute on chronic exacerbation of HFpEF: Hypervolemic on exam at presentation including scrotal swelling and BLE edema Baseline creatinine around 1.5: Admitting creatinine of 1.91. Of note, patient noncompliant with his medication and has social/financial issues. Admitting CTAP without acute findings. Admitting CXR with concern of congestive vasculature. Creatinine around baseline, minimally elevated today. Nephrology on board, appreciate recommendation Continue with home Lasix, continue to hold home ARB. BMP in a.m., continue to monitor. I's and O's, maintain negative balance. Hydrocele: Admitting scrotal ultrasound with unremarkable appearance of the testes/diffuse scrotal wall thickening/right greater than left hydrocele. Patient has hydroceles bilaterally, urology evaluated, no acute intervention. Patient denies any discomfort at bedside exam. Patient continues to report his scrotal swelling/discomfort has decreased after diuresis. Alcohol dependence/abuse: Patient's last drink was the night prior to arrival, ALEX S protocol, folate/thiamine. Telemetry monitoring. Pt counselled against smoking/drinking multiple times. Pt states he would like to quit alcohol this time and would set himself up w/ alcoholic anonymous. d/w CM regarding outpatie nt alcohol cessation resources set up. Other chronic medical conditions: HFpEF [EF 55 to 60% 2021 TTE], COPD, HTN, HLD, DM2, anxiety/mood disorder, chronic anemia, ongoing tobacco/alcohol abuse, chronic pain on Suboxone --->> continue with/resume home meds as and when appropriate. Sliding scale while inpatient. Nicotine patch as needed. Disposition: PT/OT to [facility] to assist with DC planning. DVT prophylaxis: Heparin subcu Full code Admission and Anticipated Discharge Date Admission Date: November 15, 2021 Subjective Patient seen and examined as a follow-up of acute on chronic renal failure. Patient was sitting up in bed using his mobile device, on room air, NAD, denies any new acute events overnight. Pt reports eating ok and moving bowels ok. Pt reports improving discomfort in his scrotum and endorses decreased swelling. Patient denies any chest pain or feeling of heart racing or belly pain or fever or chills. Patient reports cough at baseline. Physical Exam Physical Exam: GENERAL: Alert and oriented x3. NAD, on RA. Obese Class I. HEENT: No pallor, no icterus. Pupils equal, round and reactive to light. Oral mucosa moist. NECK: No JVD, no neck masses. HEART: S1 and S2 heard. Regular rate and rhythm. No murmur, no gallop. RESPIRATORY SYSTEM: Normal AP diameter. No accessory muscle use. No wheezing, no crackles. ABDOMEN: Soft, bowel sounds present, nontender, no distention. CENTRAL NERVOUS SYSTEM: No facial droop. Speech is clear. Obeys simple commands. Moves extremities. EXTREMITIES: trace BLE edema, minimal erythema (chronic per pt), no warmth/tenderness. : no scrotal swelling/non tender. Results & Data Results & Data ([facility]) Vital Signs (Past 12 Hours) Vital Signs Temp Pulse Pulse Resp BP BP Pulse Ox 11/16/21 11:26 36.4 C L 85 20 145/75 H 92 11/16/21 08:00 11/16/21 06:39 36.9 C 73 18 138/76 90 11/16/21 04:23 36.6 C 70 20 144/80 H 93 O2 Del Method 11/16/21 11:26 Room Air 11/16/21 08:00 Room Air 11/16/21 06:39 Room Air 11/16/21 04:23 Room Air
--- NOTE | 2021-11-16 15:09 | Nephrology Progress Note ---
Date of Service November 16, 2021 Assessment & Plan (1) Acute on chronic renal insufficiency: Plan: Stage 3a chronic kidney disease (HCC) (Primary), most likely secondary to longstanding uncontrolled diabetes. Nephrotic range proteinuria Resolving acute on chronic renal failure, secondary to noncompliance with medications His serum creatinine fluctuates anywhere between 1-1.7, not surprisingly because he has been noncompliant with his medication given his financial problems. He is high risk for ESRD. Patient is currently living in a homeless prison and relying on food bank. He gets food stamps but he does not have a kitchen to prepare food. With this extreme social financial emotional and psychological challenges it will be extremely difficult to effectively manage his medical problems. -transitioning IV > PO lasix today >> to start Lasix 40 mg po daily, titrate his blood sugars. -He has been on 50 mg of metoprolol , 10mg of amlodipine, with 40 of Lasix for blood pressure. continue these>> Will increase another 40 mg lasix x 1 today then tomorrow start lasix 80/40 and add potassium 20 mEq daily >given his $ issues will start benazepril 20 mg > since he can get 20 mg and 40 mg month supply for $4 when resuming ACEI unless ARB is covered Admission and Anticipated Discharge Date Admission Date: November 15, 2021 Subjective boyer out which feels better. pt feels "down" right now as "it's my 3rd day w/o EtOH." weak legs/buttocks limit ambulation he states Review of Systems Review of Systems: All systems reviewed & are unremarkable except as noted in Subjective Physical Exam Constitutional: well developed and well nourished Eyes: EOM intact bilaterally ENMT: Ears: no external ear abnormality Nose: no external nose abnormality Mouth: + dry oral mucous membranes Neck: no nuchal rigidity Respiratory: normal respiratory effort Auscultation: + diminished lung sounds Cardiovascular: Rate/Rhythm: regular rate and regular rhythm Extremities: + edema (1+ indurated) Gastrointestinal (Abdomen): Inspection/Auscultation: normal bowel sounds Percussion/Palpation: abdomen soft; abdomen nontender Musculoskeletal: Extremities: strength 5/5 throughout Skin: no rashes, warm and dry Psychiatric: Orientation: oriented x 3 Results & Data ([facility]) Vital Signs (Past 12 Hours) Vital Signs Temp Pulse Pulse Resp BP BP Pulse Ox 11/16/21 11:26 36.4 C L 85 20 145/75 H 92 11/16/21 08:00 11/16/21 06:39 36.9 C 73 18 138/76 90 11/16/21 04:23 36.6 C 70 20 144/80 H 93 O2 Del Method 11/16/21 11:26 Room Air 11/16/21 08:00 Room Air 11/16/21 06:39 Room Air 11/16/21 04:23 Room Air Laboratory Results 11/15/21 05:28 11/16/21 05:41
[2021-11-16] MEDS ORDERED: FUROSEMIDE 40 MG TAB PO ONE (15:17)
[2021-11-16] MEDS: ACETAMINOPHEN 325 MG TAB PO PRN (16:26)
[2021-11-16] MEDS ORDERED: traZODone HCL 100 MG TAB PO PRN (23:39)
[2021-11-17] MEDS: HEPARIN SOD 5,000 UNIT/0.5 ML VIAL SQ SCH ×3 (05:05→21:04)
[2021-11-17 06:45] LABS: BUN Creatinine Ratio 25.6 (10-20); Creatinine Clr Calc Pharmacy 66.7 ml/min; Est GFR (African American) 56.3 ml/min; Est GFR (Non-African American) 48.6 ml/min; Magnesium 1.6 mg/dl (1.7-2.4); Potassium 4.4 mmol/L (3.5-5.1)
[2021-11-17] MEDS: THIAMINE HCL 100 MG TAB PO SCH (07:46)
[2021-11-17] MEDS: METOPROLOL SUCC 50MG EXT REL TAB PO SCH (07:46)
[2021-11-17] MEDS: FOLIC ACID 1 MG TAB PO SCH (07:46)
[2021-11-17] MEDS: POTASSIUM CHLORIDE CRTAB 20 MEQ TABCR PO SCH (07:46)
[2021-11-17] MEDS: ATORVASTATIN 40 MG TAB PO SCH (07:47)
[2021-11-17] MEDS: amLODIPine BESYLATE 5 MG TAB PO SCH (07:47)
[2021-11-17] MEDS: ASPIRIN 81 MG ECTAB PO SCH (07:47)
[2021-11-17] MEDS: NICOTINE 21 MG/24 HR TDSY TD SCH (07:47)
[2021-11-17] MEDS ORDERED: MAGNESIUM SULFATE / D5W 1 GM/100 ML BAG IV ONE (08:00)
[2021-11-17] MEDS: INSULIN ASPART PER UNIT SC SCH ×4 (08:32→20:48)
[2021-11-17] MEDS ORDERED: LANTUS PER UNIT CHARGE SQ SCH (09:00)
[2021-11-17] MEDS: BUPRENORPHINE/NALOXONE 8/2 MG TAB SL SCH ×2 (09:04→21:04)
[2021-11-17] MEDS: FUROSEMIDE 80 MG TAB PO SCH (09:04)
--- NOTE | 2021-11-17 10:04 | Hospitalist Progress Note ---
Date of Service November 17, 2021 Assessment & Plan (1) Acute on chronic renal insufficiency: Plan Acute on chronic renal failure stage III Possibly acute on chronic exacerbation of HFpEF: Hypervolemic on exam at presentation including scrotal swelling and BLE edema Baseline creatinine around 1.5: Admitting creatinine of 1.91. History of poor medication adherence and has social/financial issues. Admitting CTAP without acute findings. Admitting CXR with concern of congestive vasculature. Creatinine improved, back to baseline Nephrology on board. Recommendations noted. Currently on increased dose of lasix 80mg AM and 40mg PM Losartan currently on hold Plan to change from losartan to benazepril per Nephro recs on discharge Hypomagnesemia today. Replete and monitor Hydrocele: Admitting scrotal ultrasound with unremarkable appearance of the testes/diffuse scrotal wall thickening/right greater than left hydrocele. Patient has hydroceles bilaterally Urology evaluated, no acute intervention. Patient reports scrotal swelling is improved with diuresis Alcohol dependence/abuse: Patient's last drink was the night prior to arrival, ALEX S protocol, folate/thiamine Pt counselled extensively regarding smoking/drinking. Provided resources Other chronic medical conditions: HFpEF [EF 55 to 60% 2021 TTE], COPD, HTN, HLD, DM2, anxiety/mood disorder, chronic anemia, ongoing tobacco/alcohol abuse, chronic pain on Suboxone Continue with home meds Poor glycemic control inpatient Insulin Sliding scale while inpatient. Increase lantus to 10U daily Nicotine patch as needed. Disposition: Patient reports retirement found him an apartment. CM on board. Possible dc in 1-2 days DVT prophylaxis: Heparin subcu Full code Admission and Anticipated Discharge Date Admission Date: November 15, 2021 Subjective 56-year-old man with history of chronic diastolic heart failure, CAD status post stents, hypertension, COPD, CATALINO not on CPAP, DM type II, CKD, tobacco and alcohol abuse, history of alcohol withdrawal seizures, on chronic Suboxone therapy who presented with scrotal swelling Being managed for acute on chronic disease stage III, possible acute on chronic diastolic heart failure and alcohol abuse. Patient seen and examined. Reports poor sleep overnight. Attributed this to feeling sore all over. Denies any nausea, vomiting. Reports some abdominal discomfort. Reports some mild headache which he attributed to not getting good sleep. Denies any dizziness Denies fevers, chills Denies cough, chest pain. Reports some shortness of breath with activity which is not new. Reports scrotal swelling is almost completely resolved. Review of Systems Review of Systems: All systems reviewed & are unremarkable except as noted in Subjective Physical Exam Constitutional: + well hydrated and + obese; no acute distress Eyes: PERRL, conjunctivae normal, anicteric sclerae ENMT: external ear and nose normal, oropharynx normal Respiratory: normal respiratory effort, lungs clear to auscultation Cardiovascular: Rate/Rhythm: regular rate and regular rhythm S1 S2 Gastrointestinal (Abdomen): normal bowel sounds, soft, nontender, no hepatosplenomegaly Musculoskeletal: Trace pedal edema Neurologic: PERRL, EOMI, accommodation nl, no face palsy, no dysarthria Psychiatric: A+Ox3, euthymic affect Results & Data Results & Data ([facility]) Vital Signs (Past 12 Hours) Vital Signs Temp Pulse Pulse Resp BP BP Pulse Ox 11/17/21 08:00 11/17/21 08:00 36.4 C L 81 20 154/90 H 92 11/16/21 22:30 68 11/17/21 04:59 36.5 C 69 18 158/94 H 96 11/16/21 23:21 36.3 C L 73 20 188/97 H 95 O2 Del Method O2 Flow Rate 11/17/21 08:00 Room Air 11/17/21 08:00 Room Air 11/16/21 22:30 11/17/21 04:59 Nasal Cannula 2 11/16/21 23:21 Room Air Laboratory Results Abnormal lab results 11/16/21 11/16/21 11/16/21 Range/Units 11:57 16:57 20:24 BUN (6-23) mg/dl Creatinine (0.6-1.4) mg/dl BUN/Creatinine Ratio (10-20) Glucose (70-99(Fasting)) mg/dl POC Glucose 219 H 188 H 289 H (70-99) mg/dl Magnesium (1.7-2.4) mg/dl 11/17/21 11/17/21 Range/Units 05:48 07:29 BUN 40 H (6-23) mg/dl Creatinine 1.56 H (0.6-1.4) mg/dl BUN/Creatinine Ratio 25.6 H (10-20) Glucose 191 H (70-99(Fasting)) mg/dl POC Glucose 289 H (70-99) mg/dl Magnesium 1.6 L (1.7-2.4) mg/dl
[2021-11-17] MEDS ORDERED: PHARMACY GLYCEMIC MGMT CONSULT PRN (12:48)
[2021-11-17] MEDS ORDERED: INSULIN ASPART PER UNIT SC STA (12:48)
[2021-11-17] MEDS ORDERED: LANTUS PER UNIT CHARGE SQ ONE (14:15)
--- NOTE | 2021-11-17 15:21 | Pharmacy Report ---
Pharmacy Glycemic Short Note 2 - Date of Service November 17, 2021 - Glycemic Short BSG Results (Last 24 hours): 11/16/21 11/16/21 11/17/21 16:57 20:24 05:48 Glucose 191 H POC Glucose 188 H 289 H 11/17/21 11/17/21 11/17/21 07:29 11:58 11:59 Glucose POC Glucose 289 H 330 H* 342 H* OUTPATIENT ANTIDIABETIC REGIMEN: * A1c 7.7% * Levemir 40 units SQ HS * Novolog (CF:10) - self adjusts based on food intake * Jardiance, Glipizide ER - patient unsure if he is taking ASSESSMENT: * Pharmacy consulted for severe hyperglycemia (BSG 191, 289, 330, 342 mg/dL) * Patient takes Levemir 40 units as an outpatient. He is currently ordered 10 units daily. Will give an additional 30 units now to make total dose of 40 units (patient has tolerated this dose and higher doses during recent past admissions). * Will tighten NovoLog CF and CR based on previous admission data PLAN FOR INPATIENT GLYCEMIC CONTROL: * Hold outpatient oral diabetes medications * Basal insulin * Lantus 10 units this morning + 30 units this afternoon * Reassess doses tomorrow * Bolus insulin * NovoLog per scale ACHS or Q6hrs while NPO * Goal Range: Low 110 mg/dL - High 140 mg/dL * Correction Factor: 15 mg/dL/unit * Nutritional / Prandial insulin per carb ratio of 1 unit per 6 grams CHO consumed * Add overnight checks with coverage at 00 & 04
[2021-11-17] MEDS ORDERED: FUROSEMIDE 40 MG TAB PO SCH (17:00)
[2021-11-17] MEDS: ACETAMINOPHEN 325 MG TAB PO PRN (20:48)
[2021-11-17 20:49] LABS: Anion Gap 10 (3-11); BUN Creatinine Ratio 25.3 (10-20); Blood Urea Nitrogen 44 mg/dl (6-23); Calcium 9.1 mg/dl (8.5-10.1); Carbon Dioxide 22 mmol/L (21-32); Chloride 105 mmol/L (98-107); Creatinine Clr Calc Pharmacy 59.8 ml/min; Est GFR (African American) 49.3 ml/min; Est GFR (Non-African American) 42.6 ml/min; Glucose 192 mg/dl (70-99(Fasting)); Sodium 137 mmol/L (136-145)
[2021-11-18] MEDS: INSULIN ASPART PER UNIT SC SCH ×4 (00:02→13:01)
[2021-11-18] MEDS: HEPARIN SOD 5,000 UNIT/0.5 ML VIAL SQ SCH ×2 (06:43→14:42)
[2021-11-18 07:16] LABS: BUN Creatinine Ratio 26.9 (10-20); Calcium 9.1 mg/dl (8.5-10.1); Creatinine Clr Calc Pharmacy 59.6 ml/min; Est GFR (Non-African American) 42.3 ml/min; Magnesium 1.6 mg/dl (1.7-2.4); Phosphorus 4.7 mg/dl (2.5-4.9); Potassium 4.5 mmol/L (3.5-5.1)
[2021-11-18] MEDS: POTASSIUM CHLORIDE CRTAB 20 MEQ TABCR PO SCH (09:00)
[2021-11-18] MEDS ORDERED: LANTUS PER UNIT CHARGE SQ SCH (09:00)
--- NOTE | 2021-11-18 09:00 | Nephrology Progress Note ---
Date of Service November 18, 2021 Assessment & Plan (1) Acute on chronic renal insufficiency: Plan: Stage 3a chronic kidney disease (HCC) (Primary), most likely secondary to longstanding uncontrolled diabetes. Nephrotic range proteinuria Resolving acute on chronic renal failure, secondary to noncompliance with medications His serum creatinine fluctuates anywhere between 1-1.7, not surprisingly because he has been noncompliant with his medication given his financial problems. He is high risk for ESRD. Patient is currently living in a homeless residential and relying on food bank. He gets food stamps but he does not have a kitchen to prepare food. With this extreme social financial emotional and psychological challenges it will be extremely difficult to effectively manage his medical problems. NEPHRO DISCHARGE RECOMMENDATIONS >given his $ issues will start benazepril 2O mg daily > since he can get 20 mg and 40 mg month supply for $4 -do not d/c on K supplements -d/c on lasix 80/40 mg doses in a day at least 4hr apart -cont amlodipine, metoprolol current doses -hospital discharge appt pls w/ Dr Alexander w/in 4 wks of d/c -weekly bmp x 3 to be ordered by nephro RN at d/c -limit fluid intake to 100 oz daily and 60 0z daily better at hospital d/c Admission and Anticipated Discharge Date Admission Date: November 15, 2021 Subjective for possible d/c today; drinks a lot of fluid at baseline >> 160 oz of water he states; ongoing edema; no sob Review of Systems Review of Systems: All systems reviewed & are unremarkable except as noted in Subjective Physical Exam Constitutional: well developed and well nourished Eyes: EOM intact bilaterally ENMT: Ears: no external ear abnormality Nose: no external nose abnormality Mouth: + dry oral mucous membranes Neck: no nuchal rigidity Respiratory: normal respiratory effort Auscultation: + diminished lung sounds Cardiovascular: Rate/Rhythm: regular rate and regular rhythm Extremities: + edema (1+ indurated) Gastrointestinal (Abdomen): Inspection/Auscultation: normal bowel sounds Percussion/Palpation: abdomen soft; abdomen nontender Musculoskeletal: Extremities: strength 5/5 throughout Skin: no rashes, warm and dry Psychiatric: Orientation: oriented x 3 Results & Data ([facility]) Vital Signs (Past 12 Hours) Vital Signs Temp Pulse Pulse Resp BP Pulse Ox O2 Del Method 11/18/21 07:26 36.3 C L 65 20 175/93 H 90 Room Air 11/18/21 07:21 62 11/18/21 03:21 36.3 C L 67 18 159/79 H 94 Room Air 11/17/21 22:18 68 11/17/21 23:11 36.5 C 67 18 161/89 H 95 Room Air Laboratory Results 11/15/21 05:28 11/18/21 05:54
[2021-11-18] MEDS: amLODIPine BESYLATE 5 MG TAB PO SCH (09:01)
[2021-11-18] MEDS: FOLIC ACID 1 MG TAB PO SCH (09:03)
[2021-11-18] MEDS: ASPIRIN 81 MG ECTAB PO SCH (09:03)
[2021-11-18] MEDS: THIAMINE HCL 100 MG TAB PO SCH (09:03)
[2021-11-18] MEDS: METOPROLOL SUCC 50MG EXT REL TAB PO SCH (09:03)
[2021-11-18] MEDS: NICOTINE 21 MG/24 HR TDSY TD SCH (09:04)
[2021-11-18] MEDS: ATORVASTATIN 40 MG TAB PO SCH (09:06)
[2021-11-18] MEDS: FUROSEMIDE 80 MG TAB PO SCH (09:06)
[2021-11-18] MEDS: BUPRENORPHINE/NALOXONE 8/2 MG TAB SL SCH (09:13)
[2021-11-18] MEDS: MAGNESIUM SULFATE / D5W 1 GM/100 ML BAG IV SCH ×2 (09:56→12:00)
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
--- NOTE | 2021-11-18 17:54 | Electrocardiogram Report ---
Test Reason : Blood Pressure : / mmHG Vent. Rate : 072 BPM Atrial Rate : 072 BPM P-R Int : 178 ms QRS Dur : 098 ms QT Int : 424 ms P-R-T Axes : 058 008 044 degrees QTc Int : 464 ms Sinus rhythm with frequent Premature ventricular complexes in a pattern of bigeminy Otherwise normal ECG When compared with ECG of 25-OCT-2021 19:03, No significant change was found Confirmed by Hany Amador ([id number]) on 11/18/2021 5:54:36 PM Referred By: Charity Reed Confirmed By:Rocael Amador
== END 2021-11-18 17:22 | disposition home or self-care (01) | DRG 682 ==
LOC: ED 20:12 → 2N 20:12 → SUATTDRO 11-14 00:20 → 2N 11-14 01:01 → SUATTDRO 11-15 16:35

== ENCOUNTER 2022-06-26 22:55 | Inpatient (IN) ==
--- NOTE | 2022-06-26 23:15 | Emergency Department Note ---
History of Present Illness General Chief complaint: Seizure Stated complaint: Seizure, Hypertension Time Seen by Provider: 06/26/22 22:56 History of Present Illness 57-year-old male presents via EMS reportedly may have had a seizure at his house according to her roommate. Patient has a history of alcohol dependence and a history of IV drug abuse. Patient denies any use this evening. Patient is diabetic as well. Blood sugar was 200 was noted that his blood pressure was 208/120 per EMS. EMS at bedside states that the patient was postictal for period of time next step for approximately 2 minutes prior to emergency department arrival. Patient has no current complaints no headache no nausea no vomiting no chest pain no shortness of breath no abdominal pain. There are no other complaints from the patient is a very poor historian at this time Home Medications Medication Instructions Recorded Confirmed Type buprenorphine 8 mg-naloxone 2 mg 1 tab sublingual BID 09/15/21 05/10/22 History sublingual tablet atorvastatin 80 mg tablet 80 mg PO QAM 10/25/21 05/10/22 History folic acid 1 mg tablet 1 mg PO QAM 10/25/21 05/10/22 History glipizide 10 mg tablet, extended 10 mg PO QAM 10/25/21 05/10/22 History release 24 hr naloxone 4 mg/actuation nasal 4 mg intranasal DAILY PRN overdose 10/25/21 05/10/22 History spray (Narcan) thiamine HCl (vitamin B1) 100 mg 100 mg PO QAM 10/25/21 05/10/22 History tablet trazodone 100 mg tablet 100 mg PO HS PRN Sleep 10/25/21 05/10/22 History amlodipine 10 mg tablet 10 mg PO DAILY #30 tabs 11/01/21 05/10/22 Rx benazepril 20 mg tablet 20 mg PO DAILY #30 tabs 11/18/21 05/10/22 Rx gabapentin 600 mg tablet 600 mg PO TID #90 tabs 11/18/21 05/10/22 Rx carvedilol 6.25 mg tablet 6.25 mg PO BID 05/10/22 05/10/22 History empagliflozin 10 mg tablet 10 mg PO QAM 05/10/22 05/10/22 History (Jardiance) furosemide 40 mg tablet 40 mg PO DAILY 05/10/22 05/10/22 History urea 20 % topical cream 1 applic topical BID PRN DRY HEELS 05/10/22 05/10/22 History Allergies Allergy/AdvReac Type Severity Reaction Status Date / Time pollen extracts Allergy Intermediate SNEEZING, Verified 05/10/22 18:32 CONGESTION Past Med/Surg History Medical History ONDINA (acute kidney injury) Alcohol abuse Alcohol use disorder Alcohol use disorder, severe, dependence Alcohol withdrawal Alcohol withdrawal syndrome Bilateral edema of lower extremity Chronic anemia Diabetes mellitus type 2 with complications Discharge planning issues TONEY (dyspnea on exertion) TONEY (dyspnea on exertion) DVT prophylaxis Edema Elevated troponin HTN (hypertension) Hypomagnesemia Hypomagnesemia Ischemic cardiomyopathy Mood disorder Neuropathy NSTEMI (non-ST elevated myocardial infarction) Obesity CATALINO (obstructive sleep apnea) CATALINO (obstructive sleep apnea) Proteinuria Smoking Tobacco use disorder Type 2 diabetes mellitus Surgical History History of cardiac catheterization 1 ELIESER to proximal OM by Dr. Guerrero on 01/01/19 History of lymph node biopsy Family History Other Diabetes Heart disease Hypertension Social History Smoking Status: Current every day smoker Tobacco Type: Cigarettes Cigarettes Per Day: 20; Second Hand Exposure: No; Hx Alcohol Use: Yes Alcohol type: hard liquor Alcohol type Comment: 1/2 gallon vodka a day Hx Substance Use: Yes Last Used Substance: Unknown Last Used Substance Other:: Used over the weekend Substance Use Type Other:: patient said "I've used it all" Preferred Language: Nepali Communication Ability: Effective Bologna Lacer Required: No Beliefs That Will Affect Care: None marital status: Single Current Living Situation: Homeless Current Living Situation Comment: Living in car current occupational status: unemployed How many Children do You have: 2 Feels Safe at Home: Yes Assistive Devices: None Review of Systems A total of 10 systems reviewed and were otherwise negative Cardiovascular: no chest pain Gastrointestinal: no abdominal pain Musculoskeletal: no back pain Physical Exam Vital Signs Vital Signs - 24 hr 06/26/22 22:59 06/26/22 23:33 06/26/22 23:59 Temperature 37 C Temperature Source Oral Pulse Rate 116 H 85 108 H Pulse Rate from SpO2 Sensor Pulse Rhythm Regular Respiratory Rate 20 Blood Pressure 197/152 H Blood Pressure Mean 167 Blood Pressure Position Lying Pulse Oximetry 96 96 Oxygen Delivery Method Room Air Room Air Sepsis Recent Fever Within 48 Hours No Sepsis New/Unexplained Change in Mental Status N/A Sepsis Action Taken by Nursing No Action Required 06/26/22 23:58 06/26/22 23:58 06/27/22 00:00 Temperature Temperature Source Pulse Rate 110 H 109 H Pulse Rate from SpO2 Sensor 111 H 110 H Pulse Rhythm Respiratory Rate 19 17 Blood Pressure 193/131 H Blood Pressure Mean 151 Blood Pressure Position Pulse Oximetry 97 97 Oxygen Delivery Method Room Air Room Air Sepsis Recent Fever Within 48 Hours Sepsis New/Unexplained Change in Mental Status Sepsis Action Taken by Nursing 06/27/22 00:00 06/27/22 00:25 06/27/22 00:25 Temperature Temperature Source Pulse Rate Pulse Rate from SpO2 Sensor 107 H Pulse Rhythm Respiratory Rate Blood Pressure 196/111 H 194/105 H Blood Pressure Mean 139 134 Blood Pressure Position Pulse Oximetry 95 Oxygen Delivery Method Room Air Sepsis Recent Fever Within 48 Hours Sepsis New/Unexplained Change in Mental Status Sepsis Action Taken by Nursing 06/27/22 00:30 06/27/22 00:30 Temperature Temperature Source Pulse Rate Pulse Rate from SpO2 Sensor 105 H Pulse Rhythm Respiratory Rate Blood Pressure 182/107 H Blood Pressure Mean 132 Blood Pressure Position Pulse Oximetry 95 Oxygen Delivery Method Room Air Sepsis Recent Fever Within 48 Hours Sepsis New/Unexplained Change in Mental Status Sepsis Action Taken by Nursing GENERAL: Patient is awake alert in no acute distress patient is resting comfortably and showing no signs of anxiety EYES: The conjunctivae are clear. The pupils are round and reactive. EARS, NOSE, MOUTH AND THROAT: The nose is without any evidence of any deformity. Mucous membranes are moist. Tongue is midline. Head: no signs of trauma NECK: The neck is nontender and supple. RESPIRATORY: Normal respiratory effort is noted there is no evidence of wheezing rhonchi or rales CARDIOVASCULAR: Tachycardic rate and regular rhythm noted there no murmurs rubs or gallops normal S1 normal S2. GASTROINTESTINAL: The abdomen is soft. Abdomen is nontender. BACK: No midline tenderness or or step-off noted range of motion in flexion extension as well as rotation no signs of muscle spasm noted MUSCULOSKELETAL/EXTREMITIES: There is no evidence of gross deformity full range of motion is noted in the hips and shoulders. SKIN: There is no obvious evidence of any rash. There are no petechiae, pallor or cyanosis noted. NEUROLOGIC: Patient is awake alert and oriented x2; nonfocal Course Reevaluation(s) Reevaluation #1: Patient's blood pressure is decreasing, no seizure activity in the emergency department. Patient's been alert. Case was discussed with the hospitalist for admission; patient has a nonfocal neurologic exam Time: 01:05 Consultations Consultation #1: Case was discussed with the [facility] hospitalist for admission Time: 01:06 Administered Medications Magnesium Sulfate/Dextrose (Magnesium Sulfate / D5w) 1 gm in 100 mls @ 50 mls/hr IV ONE ONE Stop: 06/27/22 02:16 Last Admin: 06/27/22 00:29 Dose: 50 mls/hr Documented By: Sodium Chloride (Nss 1000ml) 1,000 mls @ 999 mls/hr IV .Q1H1M ONE Stop: 06/27/22 01:19 Last Admin: 06/27/22 00:26 Dose: 999 mls/hr Documented By: Discontinued Medications Hydralazine HCl (Hydralazine Hcl 20 Mg/Ml Vial) 10 mg IV NOW STA Stop: 06/27/22 00:19 Last Admin: 06/27/22 00:27 Dose: 10 mg Documented By: Lorazepam (Lorazepam 2 Mg/1 Ml Vial) 1 mg IV NOW STA Stop: 06/27/22 00:06 Last Admin: 06/27/22 00:15 Dose: 1 mg Documented By: Critical Care Time Critical Care Time: Yes Total Critical Care Time: 45 I have personally spent greater than 45 minutes of critical care time in the direct management of this patient. This includes bedside care, interpretation of diagnostic studies, and testing, discussion with consultants, patient, and family members, and other required patient management activities. These minutes are in excess of all separately billable procedures. Medical Decision Making Medical Records Attestation: I reviewed the patient's medical records. Home Medications Current Medication List: was personally reviewed by Laboratory Data Attestation: I reviewed the patient's lab results. Patient has hyponatremia, lactic acidosis, hyperglycemia, mildly elevated troponin as interpreted by me 06/26/22 23:11 06/26/22 23:11 Lab Results 06/26/22 06/26/22 06/26/22 Range/Units 23:11 23:11 23:11 WBC 8.61 (4.8-10.8) K/ul RBC 3.97 L (4.70-6.10) M/uL Hgb 12.2 L (14.0-18.0) g/dl Hct 34.7 L (42.0-52.0) % MCV 87.4 (80.0-100.0) fL MCH 30.7 (25.0-34.0) pg MCHC 35.2 (32.0-36.0) g/dL RDW Std Deviation 39.8 (36.4-46.3) fL RDW Coeff of Alberto 12.4 (11.5-14.5) % Plt Count 198 (130-400) K/uL MPV 10.1 (9.4-12.4) fL Immature Gran % (Auto) 0.6 % Neut % (Auto) 85.7 % Lymph % (Auto) 7.7 % [place] % (Auto) 5.8 % Eos % (Auto) 0.0 % Baso % (Auto) 0.2 % Neut # (Auto) 7.38 H (1.40-6.50) K/uL Lymph # (Auto) 0.66 L (1.2-3.4) K/uL [place] # (Auto) 0.50 (0.11-0.59) K/uL Eos # (Auto) 0.00 (0-0.50) K/uL Baso # (Auto) 0.02 (0-0.2) K/uL Immature Gran # (Auto) 0.05 (0.01-0.20) K/uL PT 10.8 (9.0-12.0) Seconds INR 1.0 (0.9-1.1) APTT 31.5 H (21.0-31.0) Seconds PTT Ratio 1.1 Sodium 123 L (136-145) mmol/L Potassium 3.9 (3.5-5.1) mmol/L Chloride 86 L (98-107) mmol/L Carbon Dioxide 18 L (21-32) mmol/L Anion Gap 19 H (3-11) BUN 20 (6-23) mg/dl Creatinine 1.36 (0.6-1.4) mg/dl Est Cr Clr Drug Dosing 75.7 ml/min Est GFR ( Amer) 66.0 ml/min Est GFR (Non-Af Amer) 57.0 ml/min BUN/Creatinine Ratio 14.7 (10-20) Glucose 194 H (70-99(Fasting)) mg/dl Lactate (0.4-2.0) mmol/L Calcium 8.2 L (8.6-10.3) mg/dl Magnesium 1.4 L (1.7-2.4) mg/dl Total Bilirubin 1.6 H (0.2-1.0) mg/dl Direct Bilirubin 0.5 H (0-0.2) mg/dl AST 41 H (13-39) U/L ALT 26 (7-52) U/L Alkaline Phosphatase 111 H (34-104) U/L Troponin I High Sens 46.5 H (0-20) pg/ml Total Protein 6.5 (6.0-8.3) gm/dl Albumin 2.9 L (3.4-5.0) gm/dl Procalcitonin (0-0.5) ng/ml Ethyl Alcohol mg/dL (<10.0) mg/dl SARS-CoV-2, RNA, NAAT (NEGATIVE) 06/26/22 06/26/22 06/26/22 Range/Units 23:11 23:11 23:21 WBC (4.8-10.8) K/ul RBC (4.70-6.10) M/uL Hgb (14.0-18.0) g/dl Hct (42.0-52.0) % MCV (80.0-100.0) fL MCH (25.0-34.0) pg MCHC (32.0-36.0) g/dL RDW Std Deviation (36.4-46.3) fL RDW Coeff of Alberto (11.5-14.5) % Plt Count (130-400) K/uL MPV (9.4-12.4) fL Immature Gran % (Auto) % Neut % (Auto) % Lymph % (Auto) % [place] % (Auto) % Eos % (Auto) % Baso % (Auto) % Neut # (Auto) (1.40-6.50) K/uL Lymph # (Auto) (1.2-3.4) K/uL [place] # (Auto) (0.11-0.59) K/uL Eos # (Auto) (0-0.50) K/uL Baso # (Auto) (0-0.2) K/uL Immature Gran # (Auto) (0.01-0.20) K/uL PT (9.0-12.0) Seconds INR (0.9-1.1) APTT (21.0-31.0) Seconds PTT Ratio Sodium (136-145) mmol/L Potassium (3.5-5.1) mmol/L Chloride (98-107) mmol/L Carbon Dioxide (21-32) mmol/L Anion Gap (3-11) BUN (6-23) mg/dl Creatinine (0.6-1.4) mg/dl Est Cr Clr Drug Dosing ml/min Est GFR ( Amer) ml/min Est GFR (Non-Af Amer) ml/min BUN/Creatinine Ratio (10-20) Glucose (70-99(Fasting)) mg/dl Lactate 6.8 H* (0.4-2.0) mmol/L Calcium (8.6-10.3) mg/dl Magnesium (1.7-2.4) mg/dl Total Bilirubin (0.2-1.0) mg/dl Direct Bilirubin (0-0.2) mg/dl AST (13-39) U/L ALT (7-52) U/L Alkaline Phosphatase (34-104) U/L Troponin I High Sens (0-20) pg/ml Total Protein (6.0-8.3) gm/dl Albumin (3.4-5.0) gm/dl Procalcitonin 0.13 (0-0.5) ng/ml Ethyl Alcohol mg/dL < 10.0 (<10.0) mg/dl SARS-CoV-2, RNA, NAAT (NEGATIVE) 06/27/22 Range/Units 00:31 WBC (4.8-10.8) K/ul RBC (4.70-6.10) M/uL Hgb (14.0-18.0) g/dl Hct (42.0-52.0) % MCV (80.0-100.0) fL MCH (25.0-34.0) pg MCHC (32.0-36.0) g/dL RDW Std Deviation (36.4-46.3) fL RDW Coeff of Alberto (11.5-14.5) % Plt Count (130-400) K/uL MPV (9.4-12.4) fL Immature Gran % (Auto) % Neut % (Auto) % Lymph % (Auto) % [place] % (Auto) % Eos % (Auto) % Baso % (Auto) % Neut # (Auto) (1.40-6.50) K/uL Lymph # (Auto) (1.2-3.4) K/uL [place] # (Auto) (0.11-0.59) K/uL Eos # (Auto) (0-0.50) K/uL Baso # (Auto) (0-0.2) K/uL Immature Gran # (Auto) (0.01-0.20) K/uL PT (9.0-12.0) Seconds INR (0.9-1.1) APTT (21.0-31.0) Seconds PTT Ratio Sodium (136-145) mmol/L Potassium (3.5-5.1) mmol/L Chloride (98-107) mmol/L Carbon Dioxide (21-32) mmol/L Anion Gap (3-11) BUN (6-23) mg/dl Creatinine (0.6-1.4) mg/dl Est Cr Clr Drug Dosing ml/min Est GFR ( Amer) ml/min Est GFR (Non-Af Amer) ml/min BUN/Creatinine Ratio (10-20) Glucose (70-99(Fasting)) mg/dl Lactate (0.4-2.0) mmol/L Calcium (8.6-10.3) mg/dl Magnesium (1.7-2.4) mg/dl Total Bilirubin (0.2-1.0) mg/dl Direct Bilirubin (0-0.2) mg/dl AST (13-39) U/L ALT (7-52) U/L Alkaline Phosphatase (34-104) U/L Troponin I High Sens (0-20) pg/ml Total Protein (6.0-8.3) gm/dl Albumin (3.4-5.0) gm/dl Procalcitonin (0-0.5) ng/ml Ethyl Alcohol mg/dL (<10.0) mg/dl SARS-CoV-2, RNA, NAAT NEGATIVE (NEGATIVE) Imaging Data Attestation: I personally reviewed and interpreted this imaging study as follows: My Impression: Chest x-ray interpreted by me negative for infiltrate CT of the brain independently interpreted by me as negative for intracranial hemorrhage Radiologist's Impression: Head CT 06/26/22 23:06 Exam(s): CT HEAD Without Contrast EXAM: CT Head Without Intravenous Contrast CLINICAL HISTORY: Reason for exam: seizure. TECHNIQUE: Axial computed tomography images of the head/brain without intravenous contrast. Automated exposure control was utilized for the study. A dose lowering technique was utilized adhering to the principles of ALARA. COMPARISON: No relevant prior studies available. FINDINGS: No acute intracranial hemorrhage. No midline shift or mass effect. The territorial alvarado-white matter differentiation is maintained throughout. The ventricles and sulci are commensurate with age. The visualized orbits appear grossly unremarkable. The calvarium is intact. Paranasal sinus mucosal thickening. IMPRESSION: No acute intracranial hemorrhage, midline shift, or mass effect. Electronically signed by: Rico Padilla MD 06/27/22 00:36 AM ECG Data Attestation: I personally reviewed and interpreted this ECG as follows: Additional Comments: EKG interpreted by me sinus tachycardia rate of 114, PVCs, normal axis, no obvious ST segment elevation or depression normal intervals Telemetry was ordered by me, interpreted as sinus tachycardia rate of 112 Blood Pressure Blood Pressure Findings: Elevated blood pressure Additional Comments: Elevated blood pressure was treated with Ativan and hydralazine MDM Narrative Medical decision making differential diagnosis includes seizure, hypertensive urgency, intracranial hemorrhage, alcohol withdrawal, drug abuse, electrolyte abnormality, hypoglycemia Plan is to check labs, EKG, CT, observe External medical records were reviewed and the patient's outpatient records were reviewed by me as EMS had those records. EMS gave me bedside report Patient has hyponatremia, hyperglycemia, lactic acidosis, I do not suspect sepsis however I suspect that this is related to seizure. Patient may have an alcohol withdrawal seizure. Patient is hypertensive and hyperdynamic likely due to seizure activity and potential for alcohol withdrawal. Patient was started on IV Ativan, IV hydralazine, the case was discussed with the hospitalist for admission Patient had hypomagnesemia, IV magnesium was given Patient was also started on 2 L of saline Patient's blood pressure was responding slowly but decreasing after medications Patient will be admitted due to high risk of increased seizure, hypertensive encephalopathy and lactic acidosis Impression & Plan Generalized seizure, Hypomagnesemia, Acute hyponatremia, Hypertensive urgency Discharge Plan Visit Data Chief Complaint: Seizure Stated Complaint: Seizure, Hypertension ED Provider: Dewayne Esteban Discharge Problem: Generalized seizure, Hypomagnesemia, Acute hyponatremia, Hypertensive urgency Patient Disposition: Admitted As Inpatient Forms Stand Alone Forms: [facility] Prescriptions Prescriptions: No Action thiamine HCl (vitamin B1) 100 mg Tablet 100 mg PO QAM folic acid 1 mg Tablet 1 mg PO QAM glipizide 10 mg Tablet Extended Release 24hr 10 mg PO QAM atorvastatin 80 mg tablet 80 mg PO QAM trazodone 100 mg Tablet 100 mg PO HS PRN (Reason: Sleep) naloxone [Narcan] 4 mg/actuation [place],Non-Aerosol 4 mg INTRANASAL DAILY PRN (Reason: overdose) amlodipine 10 mg tablet 10 mg PO DAILY Qty: 30 0RF benazepril 20 mg tablet 20 mg PO DAILY Qty: 30 0RF gabapentin 600 mg tablet 600 mg PO TID Qty: 90 0RF buprenorphine-naloxone 8-2 mg tablet, sublingual 1 tab SUBLINGUAL BID carvedilol 6.25 mg Tablet 6.25 mg PO BID Rx Instructions: must administer with a meal/food urea 20 % Cream 1 applic TOPICAL BID PRN (Reason: DRY HEELS) Jardiance 10 mg Tablet 10 mg PO QAM furosemide 40 mg tablet 40 mg PO DAILY Rx Instructions: PER PT "ONLY 1 TAB/DAY". PER [facility]---Take 80mg in AM and 40mg in PM (5pm) Referrals Referrals: Charity Reed MD [Primary Care Provider] -
[2022-06-27] MEDS ORDERED: LORazepam 2 MG/1 ML VIAL IV STA (00:05)
[2022-06-27 00:12] LABS: Albumin Level 2.9 gm/dl (3.4-5.0); BUN Creatinine Ratio 14.7 (10-20); Bilirubin Direct 0.5 mg/dl (0-0.2); Bilirubin,Total 1.6 mg/dl (0.2-1.0); Calcium 8.2 mg/dl (8.6-10.3); Creatinine Clr Calc Pharmacy 75.7 ml/min; Magnesium 1.4 mg/dl (1.7-2.4); Potassium 3.9 mmol/L (3.5-5.1); Total Protein 6.5 gm/dl (6.0-8.3)
[2022-06-27] MEDS ORDERED: MAGNESIUM SULFATE / D5W 1 GM/100 ML BAG IV ONE (00:17)
[2022-06-27 00:18] LABS: Basophils # (auto) 0.02 K/uL (0-0.2); Basophils % (auto) 0.2 %; Hematocrit (blood only) 34.7 % (42.0-52.0); Hemoglobin 12.2 g/dl (14.0-18.0); Immature Granulocytes # (auto) 0.05 K/uL (0.01-0.20); Immature Granulocytes % (auto) 0.6 %; Lymphocytes # (auto) 0.66 K/uL (1.2-3.4); Lymphocytes % (auto) 7.7 %; Mean Corpuscular Hemoglobin 30.7 pg (25.0-34.0); Mean Corpuscular Hgb Conc 35.2 g/dL (32.0-36.0); Mean Corpuscular Volume 87.4 fL (80.0-100.0); Mean Platelet Volume 10.1 fL (9.4-12.4); Monocytes % (auto) 5.8 %; Neutrophils # (auto) 7.38 K/uL (1.40-6.50); Neutrophils % (auto) 85.7 %; Platelet Count 198 K/uL (130-400); RDW Coefficient of Variation 12.4 % (11.5-14.5); RDW Standard Deviation 39.8 fL (36.4-46.3); Red Blood Count 3.97 M/uL (4.70-6.10); Troponin I High Sensitivity 46.5 pg/ml (0-20); White Blood Count 8.61 K/ul (4.8-10.8)
[2022-06-27] MEDS ORDERED: hydrALAZINE HCL 20 MG/ML VIAL IV STA (00:18)
[2022-06-27] MEDS ORDERED: SODIUM CHLORIDE 0.9% 1000ML 1,000 ML IV ONE ×2 (00:19→00:30)
[2022-06-27 00:24] LABS: Partial Thromboplastin Ratio 1.1; Partial Thromboplastin Time 31.5 Seconds (21.0-31.0); Prothrombin Time 10.8 Seconds (9.0-12.0)
--- NOTE | 2022-06-27 00:37 | CT Scan Report ---
Exam(s): CT HEAD Without Contrast EXAM: CT Head Without Intravenous Contrast CLINICAL HISTORY: Reason for exam: seizure. TECHNIQUE: Axial computed tomography images of the head/brain without intravenous contrast. Automated exposure control was utilized for the study. A dose lowering technique was utilized adhering to the principles of ALARA. COMPARISON: No relevant prior studies available. FINDINGS: No acute intracranial hemorrhage. No midline shift or mass effect. The territorial alvarado-white matter differentiation is maintained throughout. The ventricles and sulci are commensurate with age. The visualized orbits appear grossly unremarkable. The calvarium is intact. Paranasal sinus mucosal thickening. IMPRESSION: No acute intracranial hemorrhage, midline shift, or mass effect. Electronically signed by: Rico Padilla MD 06/27/22 00:36 AM
[2022-06-27 01:10] LABS: Appearance Urine Clear (Clear); Bilirubin Urine 1+ (Negative); Blood Urine 3+ (Negative); Color Urine Yellow; Glucose Urine UA 1+ (Negative); Ketones Urine 2+ (Negative); Leukocyte Esterase Urine Negative (Negative); Nitrite Urine Negative (Negative); Protein Urine 3+ (Negative); Specific Gravity Urine 1.015 (1.000-1.030); Urobilinogen Urine Negative (Negative); pH Urine 5.5 (4.5-7.5)
[2022-06-27 01:29] LABS: Amphetamines+Metham, Urine Neg (Neg); Barbiturates, Urine Neg (Neg); Benzodiazepine, Urine Neg (Neg); Cocaine, Urine Neg (Neg); MDMA (Ecstacy), Urine Neg (Neg); Methadone, Urine Neg (Neg); Opiate, Urine Neg (Neg); Phencyclidine, Urine Neg (Neg)
[2022-06-27] MEDS ORDERED: THIAMINE HCL 100 MG in SYRINGE 9 ML IV STA (01:30)
[2022-06-27] MEDS ORDERED: LABETALOL HCL IV 5 MG/ML 20ML IV STA ×2 (01:32→03:28)
[2022-06-27 01:53] LABS: Epithelial Cell Urine 0-5 /lpf (0-5)
[2022-06-27 01:54] LABS: Bacteria Urine Negative (Negative); Hyaline Casts Urine 0-5 /lpf (0-5); RBC Urine 0-4 /hpf (0-4); WBC Urine 0-5 /hpf (0-5)
[2022-06-27] MEDS ORDERED: POTASSIUM CHLORIDE PWD 20 MEQ PACK PO STA (02:01)
[2022-06-27] MEDS ORDERED: GABAPENTIN 600 MG TAB PO STA (02:01)
[2022-06-27] MEDS: MAGNESIUM SULFATE / D5W 1 GM/100 ML BAG IV SCH ×2 (02:04→04:46)
[2022-06-27 02:38] LABS: Troponin I High Sensitivity 85.8 pg/ml (0-20)
[2022-06-27] MEDS ORDERED: carvediloL 6.25 MG TAB PO STA (02:43)
[2022-06-27] MEDS ORDERED: LACTATED RINGER'S 1,000 ML IV STA (02:54)
--- NOTE | 2022-06-27 03:10 | History & Physical Report ---
Date of Service June 27, 2022 Assessment & Plan (1) Encephalopathy: Plan: Multifactorial : Hypertensive crisis secondary to medication noncompliance Alcohol withdrawal, recurrent alcohol withdrawal seizures hyponatremia contributing to lowered seizure threshold Troponin elevation secondary to above hx chronic diastolic heart failure secondary to ischemic cardiomyopathy, patient on the dry side hx CAD status post stent Alcoholic hepatitis, good prognosis with Maddrey's DF score of 3 points hyperlipidemia, on statin Rx COPD as per records/CATALINO/CPAP non-compliance, patient currently without breathing complaints. DM 2 on oral medications, suboptimal control as of recent hemoglobin A1c of 8.3 last February 2022 anxiety/mood disorder, unknown status chronic anemia, hemoglobin at baseline ongoing tobacco abuse chronic pain on Suboxone, medication noncompliance, substance abuse as per records. Functional disability, recurrent admissions, patient incapable of caring for himself PCU IV labetalol 1 dose now Titrate home Coreg ALEX S, DT precautions Seizure precautions, Ativan prn active seizures Careful correction of sodium Hyponatremia work-up May benefit from Nephrology consultation. Trend troponin Follow lactic acid response to IVF, hold home diuretic for now Basal bolus insulin, ISS BG goal [id number], carb count coverage, update hemoglobin A1c Nicotine patch as needed PT OT eval Social service re: discharge planning DVT prophylaxis. Lovenox subcu Full code Patient requests for sister to be updated of his progress/plan of care. Ms. Kavya Banks, contact #[phone]. No pickup on phone call attempt from the ER. Total critical care time was 40 minutes. Text document was generated using [employer] voice recognition software. It may contain grammatical or spelling errors. Kindly contact undersigned for clarification of any documentation item in question History of Present Illness Chief Complaint: I do not know Seizures as per records Primary Care Provider: Charity Reed MD History obtained from patient and records. Limited history from patient secondary to confusion. Medical history significant for chronic diastolic heart failure secondary to ischemic cardiomyopathy (EF 55-59 %, TTE 2021), CAD status post stent, hypertension, hyperlipidemia, COPD as per records, CATALINO/CPAP non-compliance, DM 2 on oral medications, anxiety/mood disorder, chronic anemia (baseline hemoglobin 11-12), ongoing tobacco/alcohol abuse, history alcohol withdrawal seizures, chronic pain on Suboxone, medication noncompliance, substance abuse as per records. Last confinement November 2021 for hydrocele secondary to kidney dysfunction. Subsequent stays at different rehab facilities for alcohol addiction over the last few months. Seen at PCPs office on follow-up visit 2 weeks ago after discharge from [place] [facility] facility in [place]. Patient anxious about being out of medications as per note. PCP requested for copy of the discharge med list from rehab center. Patient instructed to resume ASA, atorvastatin, amlodipine, Coreg, furosemide, folic acid, B12, thiamine, glipizide and Jardiance interim. Outpatient embedded case manager trying to contact patient following PCP visit for home health referral. Unanswered phone calls as per outpatient documentation. Patient noted to have seizures at home by roommate last night. Patient has no recollection of events. Denies headache, chest pain, shortness of breath, abdominal pain. Cannot recall last EtOH intake. Not sure if he is taking medications. Patient brought to the ER for evaluation. Initial SBP in the ER 190s. Medical Historyas above Surgical History : None Family History : Heart disease, diabetes Personal/Social history : 1/2 pack daily, alcohol abuse, currently unemployed Allergies Allergy/AdvReac Type Severity Reaction Status Date / Time pollen extracts Allergy Intermediate SNEEZING, Verified 06/27/22 02:46 CONGESTION Home Medications Medication Instructions Recorded Confirmed Type buprenorphine 8 mg-naloxone 2 mg 1 tab sublingual BID 09/15/21 06/27/22 History sublingual tablet atorvastatin 80 mg tablet 80 mg PO QAM 10/25/21 06/27/22 History folic acid 1 mg tablet 1 mg PO QAM 10/25/21 06/27/22 History carvedilol 6.25 mg tablet 6.25 mg PO BID 05/10/22 06/27/22 History Vitamin B-12 06/27/22 History amlodipine 5 mg tablet 5 mg PO DAILY 06/27/22 06/27/22 History aspirin 81 mg chewable tablet 81 mg PO DAILY 06/27/22 06/27/22 History empagliflozin 10 mg tablet 10 mg PO DAILY 06/27/22 06/27/22 History (Jardiance) furosemide 40 mg tablet 40 mg PO HS 06/27/22 06/27/22 History furosemide 80 mg tablet 80 mg PO DAILY 06/27/22 06/27/22 History glipizide 10 mg tablet, extended 10 mg PO DAILY 06/27/22 06/27/22 History release 24 hr thiamine HCl (vitamin B1) 100 mg PO DAILY 06/27/22 06/27/22 History Past Med/Surg History Medical History ONDINA (acute kidney injury) Alcohol abuse Alcohol use disorder Alcohol use disorder, severe, dependence Alcohol withdrawal Alcohol withdrawal syndrome Bilateral edema of lower extremity Chronic anemia Diabetes mellitus type 2 with complications Discharge planning issues TONEY (dyspnea on exertion) TONEY (dyspnea on exertion) DVT prophylaxis Edema Elevated troponin HTN (hypertension) Hypomagnesemia Hypomagnesemia Ischemic cardiomyopathy Mood disorder Neuropathy NSTEMI (non-ST elevated myocardial infarction) Obesity CATALINO (obstructive sleep apnea) CATALINO (obstructive sleep apnea) Proteinuria Smoking Tobacco use disorder Type 2 diabetes mellitus Surgical History History of cardiac catheterization 1 ELIESER to proximal OM by Dr. Guerrero on 01/01/19 History of lymph node biopsy Family History Other Diabetes Heart disease Hypertension Social History Smoking Status: Current every day smoker Tobacco Type: Cigarettes Cigarettes Per Day: 20; Second Hand Exposure: No; Hx Alcohol Use: Yes Alcohol type: beer and hard liquor Alcohol type Comment: 1/2 gallon vodka a day Hx Substance Use: Yes Last Used Substance: Unknown Last Used Substance Other:: Used over the weekend Substance Use Type Other:: patient said "I've used it all" Preferred Language: Khmer Communication Ability: Effective Carpenter Assistant Installer Required: No Beliefs That Will Affect Care: None marital status: Single Current Living Situation: Homeless Current Living Situation Comment: Living in car current occupational status: unemployed How many Children do You have: 2 Feels Safe at Home: Yes Assistive Devices: None Review of Systems Review of Systems: Could not be reliably obtained secondary to disorientation Physical Exam Physical Exam: GENERAL: obese, disoriented, tremulous, no respiratory distress SKIN: Pallor, warm HEENT: Pale palpebral conjunctivae, no ptosis, dry buccal mucosa NECK : Supple, short neck, no tenderness CHEST : Decreased breath sounds, no tenderness HEART : Tachycardic, systolic murmur ABDOMEN: Some distention, nontender EXTREMITIES : Minimal LE swelling, no LE tenderness NEUROLOGIC : Disoriented, no facial asymmetry, tremulous Results & Data Results & Data Vital Signs (Past 12 Hours) Vital Signs Temp Pulse Resp BP Pulse Ox O2 Del Method 06/27/22 02:46 104 H 23 96 Room Air 06/27/22 02:46 169/105 H 06/27/22 02:30 98 H 17 96 Room Air 06/27/22 02:30 186/102 H 06/27/22 02:01 109 H 06/27/22 02:00 193/99 H 06/27/22 01:00 110 H 20 06/27/22 01:00 184/100 H 06/27/22 00:30 95 Room Air 06/27/22 00:30 182/107 H 06/27/22 00:25 194/105 H 06/27/22 00:25 95 Room Air 06/27/22 00:00 196/111 H 06/27/22 00:00 109 H 17 97 Room Air 06/26/22 23:58 193/131 H 06/26/22 23:58 110 H 19 97 Room Air 06/26/22 23:59 108 H 96 Room Air 06/26/22 23:33 37 C 85 20 197/152 H 96 Room Air 06/26/22 22:59 116 H Laboratory Results Laboratory Results WBC 8.61 K/ul (4.8-10.8) 06/26/22 23:11 RBC 3.97 M/uL (4.70-6.10) L 06/26/22 23:11 Hgb 12.2 g/dl (14.0-18.0) L 06/26/22 23:11 Hct 34.7 % (42.0-52.0) L 06/26/22 23:11 MCV 87.4 fL (80.0-100.0) 06/26/22 23:11 MCH 30.7 pg (25.0-34.0) 06/26/22 23:11 MCHC 35.2 g/dL (32.0-36.0) 06/26/22 23:11 RDW Std Deviation 39.8 fL (36.4-46.3) 06/26/22 23:11 RDW Coeff of Alberto 12.4 % (11.5-14.5) 06/26/22 23:11 Plt Count 198 K/uL (130-400) 06/26/22 23:11 MPV 10.1 fL (9.4-12.4) 06/26/22 23:11 Immature Gran % (Auto) 0.6 % 06/26/22 23:11 Neut % (Auto) 85.7 % 06/26/22 23:11 Lymph % (Auto) 7.7 % 06/26/22 23:11 [place] % (Auto) 5.8 % 06/26/22 23:11 Eos % (Auto) 0.0 % 06/26/22 23:11 Baso % (Auto) 0.2 % 06/26/22 23:11 Neut # (Auto) 7.38 K/uL (1.40-6.50) H 06/26/22 23:11 Lymph # (Auto) 0.66 K/uL (1.2-3.4) L 06/26/22 23:11 [place] # (Auto) 0.50 K/uL (0.11-0.59) 06/26/22 23:11 Eos # (Auto) 0.00 K/uL (0-0.50) 06/26/22 23:11 Baso # (Auto) 0.02 K/uL (0-0.2) 06/26/22 23:11 Immature Gran # (Auto) 0.05 K/uL (0.01-0.20) 06/26/22 23:11 PT 10.8 Seconds (9.0-12.0) 06/26/22 23:11 INR 1.0 (0.9-1.1) 06/26/22 23:11 APTT 31.5 Seconds (21.0-31.0) H 06/26/22 23:11 PTT Ratio 1.1 06/26/22 23:11 Sodium 124 mmol/L (136-145) L 06/27/22 01:54 Potassium 3.9 mmol/L (3.5-5.1) 06/26/22 23:11 Chloride 86 mmol/L (98-107) L 06/26/22 23:11 Carbon Dioxide 18 mmol/L (21-32) L 06/26/22 23:11 Anion Gap 19 (3-11) H 06/26/22 23:11 BUN 20 mg/dl (6-23) 06/26/22 23:11 Creatinine 1.36 mg/dl (0.6-1.4) 06/26/22 23:11 Est Cr Clr Drug Dosing 75.7 ml/min 06/26/22 23:11 Est GFR ( Amer) 66.0 ml/min 06/26/22 23:11 Est GFR (Non-Af Amer) 57.0 ml/min 06/26/22 23:11 BUN/Creatinine Ratio 14.7 (10-20) 06/26/22 23:11 Glucose 194 mg/dl (70-99(Fasting)) H 06/26/22 23:11 Osmolality 271 mOsm/kg (280-300) L 06/26/22 23:06 Lactate 3.1 mmol/L (0.4-2.0) H* 06/27/22 01:54 Calcium 8.2 mg/dl (8.6-10.3) L 06/26/22 23:11 Magnesium 1.4 mg/dl (1.7-2.4) L 06/26/22 23:11 Total Bilirubin 1.6 mg/dl (0.2-1.0) H 06/26/22 23:11 Direct Bilirubin 0.5 mg/dl (0-0.2) H 06/26/22 23:11 AST 41 U/L (13-39) H 06/26/22 23:11 ALT 26 U/L (7-52) 06/26/22 23:11 Alkaline Phosphatase 111 U/L (34-104) H 06/26/22 23:11 Troponin I High Sens 85.8 pg/ml (0-20) H* D 06/27/22 01:54 Total Protein 6.5 gm/dl (6.0-8.3) 06/26/22 23:11 Albumin 2.9 gm/dl (3.4-5.0) L 06/26/22 23:11 Procalcitonin 0.13 ng/ml (0-0.5) 06/26/22 23:11 TSH 1.618 uIu/ml (0.300-4.500) 06/26/22 23:06 Urine Color Yellow 06/27/22 00:58 Urine Appearance Clear (Clear) 06/27/22 00:58 Urine pH 5.5 (4.5-7.5) 06/27/22 00:58 Ur Specific [place] 1.015 (1.000-1.030) 06/27/22 00:58 Urine Protein 3+ (Negative) H 06/27/22 00:58 Urine Glucose (UA) 1+ (Negative) H 06/27/22 00:58 Urine Ketones 2+ (Negative) H 06/27/22 00:58 Urine Blood 3+ (Negative) H 06/27/22 00:58 Urine Nitrite Negative (Negative) 06/27/22 00:58 Urine Bilirubin 1+ (Negative) H 06/27/22 00:58 Urine Urobilinogen Negative (Negative) 06/27/22 00:58 Ur Leukocyte Esterase Negative (Negative) 06/27/22 00:58 Urine RBC 0-4 /hpf (0-4) 06/27/22 00:58 Urine WBC 0-5 /hpf (0-5) 06/27/22 00:58 Ur Epithelial Cells 0-5 /lpf (0-5) 06/27/22 00:58 Urine Bacteria Negative (Negative) 06/27/22 00:58 Hyaline Casts 0-5 /lpf (0-5) 06/27/22 00:58 Granular Casts 5-10 /lpf (0) H 06/27/22 00:58 Urine Osmolality 305 mOsm/kg (500-800) L 06/27/22 00:58 Ur Random Sodium 16 mmol/L 06/27/22 00:58 Urine Opiates Screen Neg (Neg) 06/27/22 00:58 Ur Methadone, Qual Neg (Neg) 06/27/22 00:58 Urine Barbiturates Neg (Neg) 06/27/22 00:58 Ur Phencyclidine (PCP) Neg (Neg) 06/27/22 00:58 U Amphetamin/Meth Scrn Neg (Neg) 06/27/22 00:58 MDMA (Ecstasy) Screen Neg (Neg) 06/27/22 00:58 U Benzodiazepines Scrn Neg (Neg) 06/27/22 00:58 Ur Cocaine Metabolite Neg (Neg) 06/27/22 00:58 U Marijuana (THC) Screen Neg (Neg) 06/27/22 00:58 Ethyl Alcohol mg/dL < 10.0 mg/dl (<10.0) 06/26/22 23:21 SARS-CoV-2, RNA, NAAT NEGATIVE (NEGATIVE) 06/27/22 00:[address] 06/26/22 23:06 Exam(s): CT HEAD Without Contrast EXAM: CT Head Without Intravenous Contrast CLINICAL HISTORY: Reason for exam: seizure. TECHNIQUE: Axial computed tomography images of the head/brain without intravenous contrast. Automated exposure control was utilized for the study. A dose lowering technique was utilized adhering to the principles of ALARA. COMPARISON: No relevant prior studies available. FINDINGS: No acute intracranial hemorrhage. No midline shift or mass effect. The territorial alvarado-white matter differentiation is maintained throughout. The ventricles and sulci are commensurate with age. The visualized orbits appear grossly unremarkable. The calvarium is intact. Paranasal sinus mucosal thickening. IMPRESSION: No acute intracranial hemorrhage, midline shift, or mass effect. Electronically signed by: Rico Padilla MD 06/27/22 00:36 AM Diagnostic Findings Chest x-ray as per my interpretation: Atelectasis EKG as per my interpretation : Rate 115, sinus tachycardia, normal axis, septal infarct, PVCs
[2022-06-27] MEDS ORDERED: LANTUS PER UNIT CHARGE SQ STA (03:16)
[2022-06-27] MEDS ORDERED: Ativan IV Alcohol Withdrawal--Active Protocol IV PRN (03:16)
[2022-06-27] MEDS ORDERED: LORazepam 2 MG/1 ML VIAL IV PRN ×3 (03:16→03:19)
[2022-06-27] MEDS ORDERED: GABAPENTIN 1200MG ALCOHOL WITHDRAWAL LOAD PO STA ×2 (03:16→06:06)
[2022-06-27] MEDS ORDERED: PROMETHAZINE HCL 12.5 MG in SODIUM CHLORIDE 0.9% 50 ML IV PRN (03:16)
[2022-06-27 03:29] LABS: Base Excess VBG -0.9 mEq/L; HCO3 VBG 22 mmol/L; Oxygen Saturation VBG 93.2 %; PCO2 VBG 30 mmHg (38-50); PO2 VBG 62 mmHg; pH VBG 7.47 (7.36-7.41)
[2022-06-27] MEDS: LORazepam 2 MG/1 ML VIAL IV PRN (03:39)
[2022-06-27] MEDS ORDERED: GLUCAGON FOR INJ 1 MG VIAL SQ PRN (04:39)
[2022-06-27] MEDS ORDERED: GLUCOSE 10 TAB/TUBE PO PRN (04:39)
[2022-06-27] MEDS ORDERED: CARBOHYDRATES FOR HYPOGLYCEMIA PO PRN (04:39)
[2022-06-27] MEDS ORDERED: DEXTROSE 50% 50 ML SYRINGE IV PRN (04:39)
[2022-06-27] MEDS ORDERED: GLUCOSE 40% GEL 15 GM TUBE PO PRN (04:39)
[2022-06-27] MEDS ORDERED: carvediloL 12.5 MG TAB PO SCH (05:00)
[2022-06-27] MEDS: INSULIN ASPART PER UNIT CHARGE SC SCH ×4 (05:12→20:17)
[2022-06-27] MEDS: NICOTINE 14 MG/24 HR PATCH TD SCH (06:19)
[2022-06-27 06:39] LABS: Basophils # (auto) 0.02 K/uL (0-0.2); Basophils % (auto) 0.3 %; Hematocrit (blood only) 31.9 % (42.0-52.0); Hemoglobin 11.5 g/dl (14.0-18.0); Immature Granulocytes # (auto) 0.02 K/uL (0.01-0.20); Immature Granulocytes % (auto) 0.3 %; Lymphocytes # (auto) 1.64 K/uL (1.2-3.4); Lymphocytes % (auto) 22.9 %; Mean Corpuscular Hemoglobin 30.6 pg (25.0-34.0); Mean Corpuscular Hgb Conc 36.1 g/dL (32.0-36.0); Mean Corpuscular Volume 84.8 fL (80.0-100.0); Mean Platelet Volume 9.9 fL (9.4-12.4); Monocytes # (auto) 0.69 K/uL (0.11-0.59); Monocytes % (auto) 9.7 %; Neutrophils # (auto) 4.78 K/uL (1.40-6.50); Neutrophils % (auto) 66.8 %; Platelet Count 176 K/uL (130-400); RDW Coefficient of Variation 12.2 % (11.5-14.5); RDW Standard Deviation 37.3 fL (36.4-46.3); Red Blood Count 3.76 M/uL (4.70-6.10); White Blood Count 7.15 K/ul (4.8-10.8)
--- NOTE | 2022-06-27 06:46 | XRay Report ---
XR chest 1V portable HISTORY: 57 years-old Male Sepsis acute sepsis COMPARISON: Chest radiograph 05/10/2022 TECHNIQUE: AP view of the chest FINDINGS: Cardiomediastinal and hilar silhouettes are unchanged. No pneumothorax, pleural effusion, airspace co nsolidation or pulmonary edema. Degenerative changes of the shoulders and spine. IMPRESSION: No acute process. ACT 112: Negative or not required by law. The above report was generated using voice recognition software. It may contain grammatical, syntax o r spelling errors. Electronically signed by: Suhas Ramos M.D. 06/27/2022 6:45 AM
[2022-06-27 06:51] LABS: Magnesium 2.2 mg/dl (1.7-2.4)
[2022-06-27 07:02] LABS: Albumin Globulin Ratio 0.9 (0.9-2); Albumin Level 2.6 gm/dl (3.4-5.0); BUN Creatinine Ratio 17.1 (10-20); Bilirubin,Total 1.2 mg/dl (0.2-1.0); Calcium 7.7 mg/dl (8.6-10.3); Creatinine Clr Calc Pharmacy 80.6 ml/min; Est GFR (African American) 70.4 ml/min; Est GFR (Non-African American) 60.7 ml/min; Globulin 2.9 gm/dl (2.5-4.0); Potassium 3.4 mmol/L (3.5-5.1); Total Protein 5.5 gm/dl (6.0-8.3)
[2022-06-27 07:03] LABS: Troponin I High Sensitivity 131.1 pg/ml (0-20)
[2022-06-27] MEDS ORDERED: GABAPENTIN 600 MG TAB PO SCH ×3 (09:00→23:30)
[2022-06-27] MEDS ORDERED: carvediloL 6.25 MG TAB PO SCH (09:00)
[2022-06-27] MEDS ORDERED: amLODIPine BESYLATE 5 MG TAB PO SCH (09:00)
[2022-06-27] MEDS: MULTIVITAMIN TAB PO SCH (09:07)
[2022-06-27] MEDS: ASPIRIN 81 MG CHEW PO SCH (09:07)
[2022-06-27] MEDS: GABAPENTIN 600 MG TAB PO SCH ×3 (09:07→21:10)
[2022-06-27] MEDS: ATORVASTATIN 40 MG TAB PO SCH (09:08)
[2022-06-27] MEDS: amLODIPine BESYLATE 5 MG TAB PO SCH (09:08)
[2022-06-27] MEDS: ENOXAPARIN INJ 40 MG/0.4 ML SYR SQ SCH (09:09)
[2022-06-27] MEDS: FOLIC ACID 1 MG TAB PO SCH (09:09)
[2022-06-27] MEDS: BUPRENORPHINE/NALOXONE 8/2 MG TAB SL SCH ×2 (09:20→21:09)
[2022-06-27 09:36] LABS: Estimated Average Glucose 174 mg/dl; Hemoglobin A1C 7.7 % (4.5-5.6)
--- NOTE | 2022-06-27 15:38 | Hospitalist Progress Note ---
Date of Service June 27, 2022 Assessment & Plan (1) Encephalopathy: (2) Diabetes mellitus type 2 with complications: (3) HTN (hypertension): Plan 57-year-old male with alcohol abuse brought to ED for confusion Acute metabolic encephalopathy-likely related to his alcohol abuse/withdrawal as well as hypertensive crisis. Urine drug screen negative, alcohol level negative. COVID-19 negative. TSH normal, procal negative, no leukocytosis, no source of infection identified. Patient looks stable and nontoxic. Blood cultures pending Alcohol abuse with withdrawal/history of recurrent alcohol withdrawal seizures- continue alcohol withdrawal protocol, gabapentin taper, thiamine, folate, multivitamin, Ativan as needed. Patient does not want to go to inpatient alcohol rehab at discharge. Hyponatremia-likely related to beer potomania and decreased solute intake. Serum osmolality 271, urine osmole 305, urine sodium 16. Sodium should improve with increased food intake. Correcting appropriately. Will check later today to prevent overcorrection. Goal sodium is up to 130 later tonight. Hypokalemia-repleted, recheck in a.m. Diarrhea-with incontinence. No blood. Will check stool cultures. Conservative management for now Elevated troponin-likely demand ischemia related to his acute medical condition. Troponin trend reviewed. No chest pain. Diabetes mellitus type 2 on insulin-states he has run out of insulin and is requesting for refill at discharge. On Lantus and NovoLog with meals. Continue Lantus, prandial insulin, carb controlled. Adjust insulin as indicated Essential hypertension-hypertensive crisis on admission resolved, currently BP well controlled. On carvedilol, amlodipine Chronic pain-takes sublingual Suboxone as needed at home. Continue with nicotine patch DVT prophylaxis-Lovenox subcu Disposition-pending medical stability. On alcohol withdrawal protocol, hyponatremia corrected and monitored Admission and Anticipated Discharge Date Admission Date: June 27, 2022 Subjective Patient was seen and examined at bedside. This morning he was very somnolent but later he woke up and is now wide-awake. States he got only few hours of sleep last night. States he has been drinking heavily for the past few months. He has been in and out of to rehab but he is not willing to go to inpatient rehab this time, he is planning to do it as outpatient. Denies any fever, chills, chest pain or shortness of breath nausea vomiting. He would like the clear liquid diet to be changed. Review of Systems Review of Systems: All systems reviewed & are unremarkable except as noted in Subjective Physical Exam Physical Exam: General: sitting comfortably in bed watching TV, not in distress, on room air HEENT: EOMI, AYDEE, MMM Chest: Clear breath sounds bilaterally, no wheezes or crackles CVS: Regular rate and rhythm, normal heart sounds, no murmur Abdomen: Soft, non tender, not distended, normal bowel sounds Neuro: Awake, alert, oriented, conversing well, non focal Extremities: No cyanosis, clubbing or edema. Hand Tremors present Results & Data Results & Data Vital Signs (Past 12 Hours) Vital Signs Temp Pulse Pulse Resp BP BP Pulse Ox 06/27/22 15:22 36.8 C 78 18 124/79 97 06/27/22 11:53 36.9 C 73 18 158/88 H 96 06/27/22 08:05 36.4 C L 94 H 20 144/87 H 96 06/27/22 04:32 103 H 06/27/22 04:39 37.3 C 101 H 18 182/104 H 96 06/27/22 04:11 06/27/22 03:51 93 H 20 193/111 H 95 06/27/22 03:45 94 H 21 O2 Del Method 06/27/22 15:22 Room Air 06/27/22 11:53 Room Air 06/27/22 08:05 Room Air 06/27/22 04:32 06/27/22 04:39 Room Air 06/27/22 04:11 Room Air 06/27/22 03:51 06/27/22 03:45 Laboratory Results Short CBC 06/26/22 06/27/22 Range/Units 23:11 05:58 WBC 8.61 7.15 (4.8-10.8) K/ul Hgb 12.2 L 11.5 L (14.0-18.0) g/dl Hct 34.7 L 31.9 L (42.0-52.0) % Plt Count 198 176 (130-400) K/uL BMP 06/26/22 06/27/22 06/27/22 23:11 01:54 05:58 Sodium 123 L 124 L 127 L Potassium 3.9 3.4 L Chloride 86 L 90 L Carbon Dioxide 18 L 25 BUN 20 22 Creatinine 1.36 1.29 Glucose 194 H 128 H Calcium 8.2 L 7.7 L 06/27/22 12:10 Sodium 126 L Potassium Chloride Carbon Dioxide BUN Creatinine Glucose Calcium Liver Function 06/26/22 06/27/22 Range/Units 23:11 05:58 Total Bilirubin 1.6 H 1.2 H (0.2-1.0) mg/dl Direct Bilirubin 0.5 H (0-0.2) mg/dl AST 41 H 37 (13-39) U/L ALT 26 22 (7-52) U/L Alkaline Phosphatase 111 H 91 (34-104) U/L Albumin 2.9 L 2.6 L (3.4-5.0) gm/dl Urine 06/27/22 Range/Units 00:58 Urine Color Yellow Urine Appearance Clear (Clear) Urine pH 5.5 (4.5-7.5) Ur Specific [place] 1.015 (1.000-1.030) Urine Protein 3+ H (Negative) Urine Glucose (UA) 1+ H (Negative) Medications Administered Current Inpatient Medications Acetaminophen (Acetaminophen 325 Mg Tab) 650 mg PO Q4H PRN PRN Reason: Pain or Fever Stop: 07/27/22 04:38 Amlodipine Besylate (Amlodipine Besylate 5 Mg Tab) 5 mg PO DAILY L[facility]IN[facility] Stop: 07/27/22 08:59 Last Admin: 06/27/22 09:08 Dose: 5 mg Aspirin (Aspirin 81 Mg Chew) 81 mg PO DAILY LUCINDA Stop: 07/27/22 08:59 Last Admin: 06/27/22 09:07 Dose: 81 mg Atorvastatin Calcium (Atorvastatin 40 Mg Tab) 80 mg PO QAM [facility] Stop: 07/27/22 08:59 Last Admin: 06/27/22 09:08 Dose: 80 mg Buprenorphine/Naloxone (Buprenorphine/Naloxone 8/2 Mg Tab) 1 tab SL BID [facility] Stop: 07/27/22 08:59 Last Admin: 06/27/22 09:20 Dose: 1 tab Carvedilol (Carvedilol 12.5 Mg Tab) 12.5 mg PO BID LUCINDA Stop: 07/27/22 04:59 Last Admin: 06/27/22 05:26 Dose: 12.5 mg Dextrose (Dextrose 50% 50 Ml Syringe) 25 - 50 ml IV UD PRN; Protocol PRN Reason: Hypoglycemia Protocol Stop: 07/27/22 04:38 Enoxaparin Sodium (Enoxaparin Inj 40 Mg/0.4 Ml Syr) 40 mg SQ QAM [facility] Stop: 07/27/22 08:59 Last Admin: 06/27/22 09:09 Dose: 40 mg Folic Acid (Folic Acid 1 Mg Tab) 1 mg PO QAM [facility] Stop: 07/27/22 08:59 Last Admin: 06/27/22 09:09 Dose: 1 mg Gabapentin (Gabapentin 600 Mg Tab) 600 mg PO Q24H [facility] Stop: 06/30/22 14:01 Gabapentin (Gabapentin 600 Mg Tab) 600 mg PO Q12H [facility] Stop: 06/29/22 14:01 Gabapentin (Gabapentin 600 Mg Tab) 600 mg PO Q8H [facility] Stop: 06/28/22 14:01 Glucagon (Glucagon For Inj 1 Mg Vial) 1 mg SQ UD PRN; Protocol PRN Reason: Hypoglycemia Protocol Stop: 07/27/22 04:38 Glucose (Glucose 10 Tab/Tube) 4 - 8 tab PO UD PRN; Protocol PRN Reason: Hypoglycemia Treatment Stop: 07/27/22 04:38 Glucose (Glucose 40% Gel 15 Gm Tube) 15 - 30 gm PO UD PRN; Protocol PRN Reason: Hypoglycemia Protocol Stop: 07/27/22 04:38 Promethazine HCl 12.5 mg/ (Sodium Chloride) 50.5 mls @ 202 mls/hr IV Q6H PRN PRN Reason: Nausea And Vomiting Stop: 07/27/22 03:15 Insulin Aspart (Insulin Aspart Per Unit Charge) 0 units SC ACHS [facility] Stop: 07/27/22 04:38 Last Admin: 06/27/22 11:57 Dose: Not Given Insulin Glargine (Lantus Per Unit Charge) 10 units SQ DAILY [facility] Stop: 07/28/22 08:59 Lorazepam (Lorazepam 2 Mg/1 Ml Vial) 3 mg IV ONCE PRN; Protocol PRN Reason: EtOH Withdrawal AWSS Score 10+ Lorazepam (Lorazepam 2 Mg/1 Ml Vial) 2 mg IV UD PRN; Protocol PRN Reason: EtOH Withdrawal AWSS Score 8,9 Stop: 07/27/22 03:15 Last Admin: 06/27/22 03:39 Dose: 2 mg Lorazepam (Lorazepam 2 Mg/1 Ml Vial) 1 mg IV UD PRN; Protocol PRN Reason: EtOH Withdrawal AWSS Score 6,7 Stop: 07/27/22 03:15 Lorazepam (Lorazepam 2 Mg/1 Ml Vial) 1 mg IV Q10M PRN PRN Reason: seizures Stop: 07/27/22 03:18 Miscellaneous (Carbohydrates For Hypoglycemia ) 15 - 30 gm PO UD PRN PRN Reason: Hypoglycemia Protocol Stop: 07/27/22 04:38 Miscellaneous (Remove Nicoderm Patch) 1 each N/A DAILY@0859 [facility] Stop: 07/28/22 08:58 Multivitamins (Multivitamin Tab) 1 tab PO QAM [facility] Stop: 07/27/22 08:59 Last Admin: 06/27/22 09:07 Dose: 1 tab Nicotine (Nicotine 14 Mg/24 Hr Patch) 14 mg TD QAM [facility] Stop: 07/27/22 05:49 Last Admin: 06/27/22 06:19 Dose: 14 mg (3) HTN (hypertension) Hypertension type: primary hypertension Qualified Code(s): I10 - Essential (primary) hypertension
[2022-06-27] MEDS ORDERED: POTASSIUM CHLORIDE CRTAB 20 MEQ TABCR PO ONE (16:00)
[2022-06-27] MEDS: carvediloL 6.25 MG TAB PO SCH (21:20)
[2022-06-27 21:34] LABS: BUN Creatinine Ratio 14.4 (10-20); Calcium 7.6 mg/dl (8.6-10.3); Creatinine Clr Calc Pharmacy 51.7 ml/min; Est GFR (African American) 41.2 ml/min; Est GFR (Non-African American) 35.5 ml/min; Potassium 3.7 mmol/L (3.5-5.1)
--- NOTE | 2022-06-28 05:46 | Electrocardiogram Report ---
Test Reason : Blood Pressure : / mmHG Vent. Rate : 114 BPM Atrial Rate : 114 BPM P-R Int : 162 ms QRS Dur : 096 ms QT Int : 368 ms P-R-T Axes : 063 003 051 degrees QTc Int : 507 ms Sinus tachycardia with Premature ventricular complexes Otherwise normal ECG When compared with ECG of 10-MAY-2022 16:53, No significant change Confirmed by Dandre Lea ([id number]) on 06/28/2022 5:46:09 AM Referred By: REFERRED SELF Confirmed By:Dandre Lea
[2022-06-28] MEDS: GABAPENTIN 600 MG TAB PO SCH ×2 (05:56→14:02)
[2022-06-28 08:06] LABS: BUN Creatinine Ratio 14.7 (10-20); Calcium 7.6 mg/dl (8.6-10.3); Creatinine Clr Calc Pharmacy 49.3 ml/min; Est GFR (African American) 38.8 ml/min; Est GFR (Non-African American) 33.5 ml/min; Phosphorus 2.7 mg/dl (2.5-4.9); Potassium 3.9 mmol/L (3.5-5.1)
[2022-06-28] MEDS: INSULIN ASPART PER UNIT CHARGE SC SCH ×2 (08:38→11:35)
[2022-06-28] MEDS ORDERED: LANTUS PER UNIT CHARGE SQ SCH (09:00)
[2022-06-28] MEDS: carvediloL 6.25 MG TAB PO SCH ×2 (09:09→17:25)
[2022-06-28] MEDS: amLODIPine BESYLATE 5 MG TAB PO SCH (09:10)
[2022-06-28] MEDS: ENOXAPARIN INJ 40 MG/0.4 ML SYR SQ SCH (09:11)
[2022-06-28] MEDS: ATORVASTATIN 40 MG TAB PO SCH (09:11)
[2022-06-28] MEDS: ASPIRIN 81 MG CHEW PO SCH (09:11)
[2022-06-28] MEDS: MULTIVITAMIN TAB PO SCH (09:12)
[2022-06-28] MEDS: NICOTINE 14 MG/24 HR PATCH TD SCH (09:12)
[2022-06-28] MEDS: FOLIC ACID 1 MG TAB PO SCH (09:12)
[2022-06-28] MEDS: BUPRENORPHINE/NALOXONE 8/2 MG TAB SL SCH ×2 (09:18→21:12)
--- NOTE | 2022-06-28 14:14 | Hospitalist Progress Note ---
Date of Service June 28, 2022 Assessment & Plan (1) Encephalopathy: (2) Diabetes mellitus type 2 with complications: (3) HTN (hypertension): Plan 57-year-old male with alcohol abuse brought to ED for confusion Acute metabolic encephalopathy-likely related to his alcohol abuse/withdrawal as well as hypertensive crisis. Urine drug screen negative, alcohol level negative. COVID-19 negative. TSH normal, procal negative, no leukocytosis, no source of infection identified. Patient looks stable and nontoxic. Blood cultures negative at 24 hours. Alcohol abuse with withdrawal/history of recurrent alcohol withdrawal seizures- continue alcohol withdrawal protocol, gabapentin taper, thiamine, folate, multivitamin, Ativan as needed. Patient does not want to go to inpatient alcohol rehab at discharge. CKD3b- Cr 2.1, relatively stable, could be his new baseline, admission c reatinine could be falsely low. Avoid nephrotoxics. Monitor Cr. Hyponatremia-likely related to beer potomania and decreased solute intake. Serum osmolality 271, urine osmole 305, urine sodium 16. Sodium improved to 130. Correcting appropriately. Hypokalemia-resolved with repletion Diarrhea-with incontinence. No blood. Resolved Elevated troponin-likely demand ischemia related to his acute medical condition. Troponin trend reviewed. No chest pain. Diabetes mellitus type 2 on insulin-states he has run out of insulin and is requesting for refill at discharge. However he is requiring very less insulin and had hypoglycemic episode today despite adequate oral intake. Will monitor off of insulin. [place] as indicated. Essential hypertension-hypertensive crisis on admission resolved, currently BP well controlled. On carvedilol, amlodipine Chronic pain-takes sublingual Suboxone as needed at home. Tobacco abuse -smokes 2 packs a day. Recommended cutting down. Continue with nicotine patch DVT prophylaxis-Lovenox subcu Disposition-pending medical stability. On alcohol withdrawal protocol, hyponatremia being corrected and monitored Admission and Anticipated Discharge Date Admission Date: June 27, 2022 Subjective Patient was seen and examined at bedside. States he did not get much sleep last night. He was waking up frequently. Diarrhea stopped. No nausea vomiting abdominal pain. Voiding without issues. His tremors and withdrawal symptoms have diminished. Review of Systems Review of Systems: All systems reviewed & are unremarkable except as noted in Subjective Physical Exam Physical Exam: General: sitting comfortably in bed watching TV, not in distress, on room air HEENT: EOMI, AYDEE, MMM Chest: Clear breath sounds bilaterally, no wheezes or crackles CVS: Regular rate and rhythm, normal heart sounds, no murmur Abdomen: Soft, non tender, not distended, normal bowel sounds Neuro: Awake, alert, oriented, conversing well, non focal Extremities: No cyanosis, clubbing or edema. Hand Tremors improved Results & Data Results & Data Vital Signs (Past 12 Hours) Vital Signs Temp Pulse Resp BP Pulse Ox O2 Del Method 06/28/22 11:50 36.9 C 80 18 132/77 96 Room Air 06/28/22 07:54 36.9 C 77 20 118/73 96 Room Air 06/28/22 02:57 36.9 C 77 16 132/84 96 Room Air Laboratory Results [facility] 06/27/22 06/27/22 06/28/22 18:11 20:31 06:48 Sodium 124 L 124 L 130 L Potassium 3.7 3.9 Chloride 95 L 97 L Carbon Dioxide 26 26 BUN 29 H 31 H Creatinine 2.01 H D 2.11 H Glucose 89 75 Calcium 7.6 L 7.6 L Medications Administered Current Inpatient Medications Acetaminophen (Acetaminophen 325 Mg Tab) 650 mg PO Q4H PRN PRN Reason: Pain or Fever Stop: 07/27/22 04:38 Amlodipine Besylate (Amlodipine Besylate 5 Mg Tab) 5 mg PO DAILY [facility] Stop: 07/27/22 08:59 Last Admin: 06/28/22 09:10 Dose: 5 mg Aspirin (Aspirin 81 Mg Chew) 81 mg PO DAILY [facility] Stop: 07/27/22 08:59 Last Admin: 06/28/22 09:11 Dose: 81 mg Atorvastatin Calcium (Atorvastatin 40 Mg Tab) 80 mg PO QAM [facility] Stop: 07/27/22 08:59 Last Admin: 06/28/22 09:11 Dose: 80 mg Buprenorphine/Naloxone (Buprenorphine/Naloxone 8/2 Mg Tab) 1 tab SL BID [facility] Stop: 07/27/22 08:59 Last Admin: 06/28/22 09:18 Dose: 1 tab Carvedilol (Carvedilol 6.25 Mg Tab) 6.25 mg PO BIDM [facility] Stop: 07/27/22 20:59 Last Admin: 06/28/22 09:09 Dose: 6.25 mg Dextrose (Dextrose 50% 50 Ml Syringe) 25 - 50 ml IV UD PRN; Protocol PRN Reason: Hypoglycemia Protocol Stop: 07/27/22 04:38 Enoxaparin Sodium (Enoxaparin Inj 40 Mg/0.4 Ml Syr) 40 mg SQ QAM [facility] Stop: 07/27/22 08:59 Last Admin: 06/28/22 09:11 Dose: 40 mg Folic Acid (Folic Acid 1 Mg Tab) 1 mg PO QAM [facility] Stop: 07/27/22 08:59 Last Admin: 06/28/22 09:12 Dose: 1 mg Gabapentin (Gabapentin 600 Mg Tab) 600 mg PO Q24H [facility] Stop: 06/30/22 14:01 Gabapentin (Gabapentin 600 Mg Tab) 600 mg PO Q12H [facility] Stop: 06/29/22 14:01 Glucagon (Glucagon For Inj 1 Mg Vial) 1 mg SQ UD PRN; Protocol PRN Reason: Hypoglycemia Protocol Stop: 07/27/22 04:38 Glucose (Glucose 10 Tab/Tube) 4 - 8 tab PO UD PRN; Protocol PRN Reason: Hypoglycemia Treatment Stop: 07/27/22 04:38 Glucose (Glucose 40% Gel 15 Gm Tube) 15 - 30 gm PO UD PRN; Protocol PRN Reason: Hypoglycemia Protocol Stop: 07/27/22 04:38 Promethazine HCl 12.5 mg/ (Sodium Chloride) 50.5 mls @ 202 mls/hr IV Q6H PRN PRN Reason: Nausea And Vomiting Stop: 07/27/22 03:15 Insulin Aspart (Insulin Aspart Per Unit Charge) 0 units SC ACHS [facility] Stop: 07/27/22 04:38 Last Admin: 06/28/22 11:35 Dose: Not Given Insulin Glargine (Lantus Per Unit Charge) 10 units SQ DAILY [facility] Stop: 07/28/22 08:59 Last Admin: 06/28/22 08:40 Dose: Not Given Lorazepam (Lorazepam 2 Mg/1 Ml Vial) 3 mg IV ONCE PRN; Protocol PRN Reason: EtOH Withdrawal AWSS Score 10+ Lorazepam (Lorazepam 2 Mg/1 Ml Vial) 2 mg IV UD PRN; Protocol PRN Reason: EtOH Withdrawal AWSS Score 8,9 Stop: 07/27/22 03:15 Last Admin: 06/27/22 03:39 Dose: 2 mg Lorazepam (Lorazepam 2 Mg/1 Ml Vial) 1 mg IV UD PRN; Protocol PRN Reason: EtOH Withdrawal AWSS Score 6,7 Stop: 07/27/22 03:15 Lorazepam (Lorazepam 2 Mg/1 Ml Vial) 1 mg IV Q10M PRN PRN Reason: seizures Stop: 07/27/22 03:18 Miscellaneous (Carbohydrates For Hypoglycemia ) 15 - 30 gm PO UD PRN PRN Reason: Hypoglycemia Protocol Stop: 07/27/22 04:38 Miscellaneous (Remove Nicoderm Patch) 1 each N/A DAILY@0859 [facility] Stop: 07/28/22 08:58 Last Admin: 06/28/22 09:10 Dose: 1 each Multivitamins (Multivitamin Tab) 1 tab PO QAM [facility] Stop: 07/27/22 08:59 Last Admin: 06/28/22 09:12 Dose: 1 tab Nicotine (Nicotine 14 Mg/24 Hr Patch) 14 mg TD QAM [facility] Stop: 07/27/22 05:49 Last Admin: 06/28/22 09:12 Dose: 14 mg (3) HTN (hypertension) Hypertension type: primary hypertension Qualified Code(s): I10 - Essential (primary) hypertension
[2022-06-28 20:37] LABS: BUN Creatinine Ratio 14.5 (10-20); Calcium 7.5 mg/dl (8.6-10.3); Est GFR (African American) 26.5 ml/min; Est GFR (Non-African American) 22.9 ml/min; Potassium 4.1 mmol/L (3.5-5.1)
[2022-06-29] MEDS: GABAPENTIN 600 MG TAB PO SCH ×2 (01:56→13:32)
[2022-06-29] MEDS: MELATONIN 3 MG TAB PO PRN (02:03)
[2022-06-29] MEDS: LORazepam 2 MG/1 ML VIAL IV PRN (02:03)
[2022-06-29] MEDS ORDERED: GABAPENTIN 600 MG TAB PO SCH (03:30)
[2022-06-29 06:54] LABS: BUN Creatinine Ratio 15.7 (10-20); Calcium 7.5 mg/dl (8.6-10.3); Creatinine Clr Calc Pharmacy 38.6 ml/min; Est GFR (African American) 29.1 ml/min; Est GFR (Non-African American) 25.1 ml/min; Phosphorus 4.2 mg/dl (2.5-4.9); Potassium 4.1 mmol/L (3.5-5.1)
--- NOTE | 2022-06-29 08:56 | Hospitalist Progress Note ---
Date of Service June 29, 2022 Assessment & Plan (1) Encephalopathy: (2) Diabetes mellitus type 2 with complications: (3) HTN (hypertension): Plan 57-year-old male with alcohol abuse brought to ED for confusion Acute metabolic encephalopathy-likely related to his alcohol abuse/withdrawal as well as hypertensive crisis. Urine drug screen negative, alcohol level negative. COVID-19 negative. TSH normal, procal negative, no leukocytosis, no source of infection identified. Patient looks stable and nontoxic. Blood cultures negative at 48 hours. Alcohol abuse with withdrawal/history of recurrent alcohol withdrawal seizures- continue alcohol withdrawal protocol, gabapentin taper, thiamine, folate, multivitamin, Ativan as needed. Patient does not want to go to inpatient alcohol rehab at discharge. [place] on CKD3b- peaked Cr 2.9 -> down to 2.6. Avoid nephrotoxics. Monitor Cr. Nephrology consulted. Hold diuretics. Hyponatremia-likely related to beer potomania and decreased solute intake. Serum osmolality 271, urine osmole 305, urine sodium 16. Sodium improved to 133. Correcting appropriately. Nephrology following. Hypokalemia-resolved with repletion Diarrhea-with incontinence. No blood. Resolved Elevated troponin-likely demand ischemia related to his acute medical condition. Troponin trend reviewed. No chest pain. Diabetes mellitus type 2 on insulin-states he has run out of insulin and is requesting for refill at discharge. However he is requiring very less insulin and had hypoglycemic episode despite adequate oral intake. Will monitor off of insulin. [place] as indicated. Glycemic pharmacy consulted. Per outpt records pt was on glipizide and jardiance. Essential hypertension-hypertensive crisis on admission resolved, currently BP well controlled. On carvedilol, amlodipine Chronic pain-takes sublingual Suboxone as needed at home. Tobacco abuse -smokes 2 packs a day. Recommended cutting down. Continue with nicotine patch DVT prophylaxis-Lovenox subcu Disposition-pending medical stability. On alcohol withdrawal protocol, hyponatremia being corrected and monitored. [place]. Admission and Anticipated Discharge Date Admission Date: June 27, 2022 Subjective Patient seen in follow up of alcohol withdrawal / ? seizure at home, hyponatremia, [place] on ckd Laying in bed in NAD Does not recollect events prior to come to the hospital. Currently no fevers chills chest pain shortness of breath, no abdominal pain. Had episode of diarrhea/incontinence on admission, but since then no BM. His tremors and withdrawal symptoms have diminished. [place] on ckd - nephrology consulted Review of Systems Review of Systems: All systems reviewed & are unremarkable except as noted in Subjective Physical Exam Physical Exam: General: obese M, laying in bed, not in distress, on room air HEENT: EOMI, AYDEE, MMM Chest: Clear breath sounds bilaterally, no wheezes or crackles CVS: Regular rate and rhythm, normal heart sounds, no murmur Abdomen: Soft, non tender, not distended, normal bowel sounds Neuro: Awake, alert, oriented, conversing well, speech fluent, moves extremities Extremities: Hand Tremors improved. Moves extremities. Results & Data Results & Data Vital Signs (Past 12 Hours) Vital Signs Temp Pulse Resp BP Pulse Ox O2 Del Method 06/29/22 07:44 36.9 C 78 18 158/90 H 93 Room Air 06/29/22 02:46 36.8 C 82 18 157/84 H 97 Room Air 06/28/22 23:25 36.8 C 79 18 124/76 96 Room Air Laboratory Results 06/29/22 06/29/22 06/28/22 Range/Units 07:27 06:08 19:57 Sodium 133 L 129 L (136-145) mmol/L Potassium 4.1 4.1 (3.5-5.1) mmol/L Chloride 100 97 L (98-107) mmol/L Carbon Dioxide 28 25 (21-32) mmol/L Anion Gap 5 7 (3-11) BUN 42 H 42 H (6-23) mg/dl Creatinine 2.68 H 2.89 H D (0.6-1.4) mg/dl Est Cr Clr Drug Dosing 38.6 36.0 ml/min Est GFR ( Amer) 29.1 26.5 ml/min Est GFR (Non-Af Amer) 25.1 22.9 ml/min BUN/Creatinine Ratio 15.7 14.5 (10-20) Glucose 162 H 158 H (70-99(Fasting)) mg/dl POC Glucose 178 H (70-99) mg/dl Calcium 7.5 L 7.5 L (8.6-10.3) mg/dl Phosphorus 4.2 D (2.5-4.9) mg/dl Magnesium 2.0 (1.7-2.4) mg/dl 06/28/22 06/28/22 06/28/22 Range/Units 19:50 15:57 12:03 Sodium (136-145) mmol/L Potassium (3.5-5.1) mmol/L Chloride (98-107) mmol/L Carbon Dioxide (21-32) mmol/L Anion Gap (3-11) BUN (6-23) mg/dl Creatinine (0.6-1.4) mg/dl Est Cr Clr Drug Dosing ml/min Est GFR ( Amer) ml/min Est GFR (Non-Af Amer) ml/min BUN/Creatinine Ratio (10-20) Glucose (70-99(Fasting)) mg/dl POC Glucose 174 H 123 H 95 (70-99) mg/dl Calcium (8.6-10.3) mg/dl Phosphorus (2.5-4.9) mg/dl Magnesium (1.7-2.4) mg/dl 06/28/22 06/28/22 Range/Units 11:19 11:18 Sodium (136-145) mmol/L Potassium (3.5-5.1) mmol/L Chloride (98-107) mmol/L Carbon Dioxide (21-32) mmol/L Anion Gap (3-11) BUN (6-23) mg/dl Creatinine (0.6-1.4) mg/dl Est Cr Clr Drug Dosing ml/min Est GFR ( Amer) ml/min Est GFR (Non-Af Amer) ml/min BUN/Creatinine Ratio (10-20) Glucose (70-99(Fasting)) mg/dl POC Glucose 59 L* 57 L* (70-99) mg/dl Calcium (8.6-10.3) mg/dl Phosphorus (2.5-4.9) mg/dl Magnesium (1.7-2.4) mg/dl Medications Administered Current Inpatient Medications Acetaminophen (Acetaminophen 325 Mg Tab) 650 mg PO Q4H PRN PRN Reason: Pain or Fever Stop: 07/27/22 04:38 Amlodipine Besylate (Amlodipine Besylate 5 Mg Tab) 5 mg PO DAILY [facility] Stop: 07/27/22 08:59 Last Admin: 06/28/22 09:10 Dose: 5 mg Aspirin (Aspirin 81 Mg Chew) 81 mg PO DAILY [facility] Stop: 07/27/22 08:59 Last Admin: 06/28/22 09:11 Dose: 81 mg Atorvastatin Calcium (Atorvastatin 40 Mg Tab) 80 mg PO QAM [facility] Stop: 07/27/22 08:59 Last Admin: 06/28/22 09:11 Dose: 80 mg Buprenorphine/Naloxone (Buprenorphine/Naloxone 8/2 Mg Tab) 1 tab SL BID [facility] Stop: 07/27/22 08:59 Last Admin: 06/28/22 21:12 Dose: 1 tab Carvedilol (Carvedilol 6.25 Mg Tab) 6.25 mg PO BIDM [facility] Stop: 07/27/22 20:59 Last Admin: 06/28/22 17:25 Dose: 6.25 mg Dextrose (Dextrose 50% 50 Ml Syringe) 25 - 50 ml IV UD PRN; Protocol PRN Reason: Hypoglycemia Protocol Stop: 07/27/22 04:38 Enoxaparin Sodium (Enoxaparin Inj 40 Mg/0.4 Ml Syr) 40 mg SQ QAM [facility] Stop: 07/27/22 08:59 Last Admin: 06/28/22 09:11 Dose: 40 mg Folic Acid (Folic Acid 1 Mg Tab) 1 mg PO QAM [facility] Stop: 07/27/22 08:59 Last Admin: 06/28/22 09:12 Dose: 1 mg Gabapentin (Gabapentin 600 Mg Tab) 600 mg PO Q24H [facility] Stop: 06/30/22 14:01 Gabapentin (Gabapentin 600 Mg Tab) 600 mg PO Q12H [facility] Stop: 06/29/22 14:01 Last Admin: 06/29/22 01:56 Dose: 600 mg Glucagon (Glucagon For Inj 1 Mg Vial) 1 mg SQ UD PRN; Protocol PRN Reason: Hypoglycemia Protocol Stop: 07/27/22 04:38 Glucose (Glucose 10 Tab/Tube) 4 - 8 tab PO UD PRN; Protocol PRN Reason: Hypoglycemia Treatment Stop: 07/27/22 04:38 Glucose (Glucose 40% Gel 15 Gm Tube) 15 - 30 gm PO UD PRN; Protocol PRN Reason: Hypoglycemia Protocol Stop: 07/27/22 04:38 Promethazine HCl 12.5 mg/ (Sodium Chloride) 50.5 mls @ 202 mls/hr IV Q6H PRN PRN Reason: Nausea And Vomiting Stop: 07/27/22 03:15 Insulin Aspart (Insulin Aspart Per Unit Charge) 0 units SC ACHS [facility] Stop: 07/27/22 04:38 Last Admin: 06/28/22 11:35 Dose: Not Given Lorazepam (Lorazepam 2 Mg/1 Ml Vial) 3 mg IV ONCE PRN; Protocol PRN Reason: EtOH Withdrawal AWSS Score 10+ Lorazepam (Lorazepam 2 Mg/1 Ml Vial) 2 mg IV UD PRN; Protocol PRN Reason: EtOH Withdrawal AWSS Score 8,9 Stop: 07/27/22 03:15 Last Admin: 06/29/22 02:03 Dose: 2 mg Lorazepam (Lorazepam 2 Mg/1 Ml Vial) 1 mg IV UD PRN; Protocol PRN Reason: EtOH Withdrawal AWSS Score 6,7 Stop: 07/27/22 03:15 Lorazepam (Lorazepam 2 Mg/1 Ml Vial) 1 mg IV Q10M PRN PRN Reason: seizures Stop: 07/27/22 03:18 Melatonin (Melatonin 3 Mg Tab) 3 mg PO HS PRN PRN Reason: Sleep Stop: 07/29/22 01:44 Last Admin: 06/29/22 02:03 Dose: 3 mg Miscellaneous (Carbohydrates For Hypoglycemia ) 15 - 30 gm PO UD PRN PRN Reason: Hypoglycemia Protocol Stop: 07/27/22 04:38 Miscellaneous (Remove Nicoderm Patch) 1 each N/A DAILY@0859 [facility] Stop: 07/28/22 08:58 Last Admin: 06/28/22 09:10 Dose: 1 each Multivitamins (Multivitamin Tab) 1 tab PO QAM [facility] Stop: 07/27/22 08:59 Last Admin: 06/28/22 09:12 Dose: 1 tab Nicotine (Nicotine 14 Mg/24 Hr Patch) 14 mg TD QAM [facility] Stop: 07/27/22 05:49 Last Admin: 06/28/22 09:12 Dose: 14 mg (3) HTN (hypertension) Hypertension type: primary hypertension Qualified Code(s): I10 - Essential (primary) hypertension
[2022-06-29] MEDS: BUPRENORPHINE/NALOXONE 8/2 MG TAB SL SCH ×2 (09:11→20:36)
[2022-06-29] MEDS: carvediloL 6.25 MG TAB PO SCH ×2 (09:12→16:52)
[2022-06-29] MEDS: ASPIRIN 81 MG CHEW PO SCH (09:12)
[2022-06-29] MEDS: amLODIPine BESYLATE 5 MG TAB PO SCH (09:12)
[2022-06-29] MEDS: ENOXAPARIN INJ 40 MG/0.4 ML SYR SQ SCH (09:13)
[2022-06-29] MEDS: NICOTINE 14 MG/24 HR PATCH TD SCH (09:13)
[2022-06-29] MEDS: FOLIC ACID 1 MG TAB PO SCH (09:13)
[2022-06-29] MEDS: ATORVASTATIN 40 MG TAB PO SCH (09:13)
[2022-06-29] MEDS: MULTIVITAMIN TAB PO SCH (09:13)
--- NOTE | 2022-06-29 12:15 | Consultation Report ---
NEPHROLOGY CONSULTATION NOTE REASON FOR CONSULTATION: Acute renal failure. HISTORY OF PRESENT ILLNESS: The patient is a 57-year-old male with extensive psychosocial as well as alcohol and substance abuse problem whom I have known for many years. He was brought to the hospital, was noted to have seizures at home by his roommate. The patient recently was discharged from [facility] in [place]. It appears he was drinking alcohol heavily in the recent past. He has had multiple admissions for acute renal failure in the past, but when things are stable, his baseline creatinine is pretty normal. On admission, his creatinine was 1.2, but since then has gone up rapidly to 2.89 and this morning was 2.68. He has longstanding history of diabetes with diabetic nephropathy. There is always confusion about what medicine he is actually taking at any point given his psychosocial and financial situation. On admission, his blood pressure was extremely high and was brought down fairly rapidly and now it is within acceptable range. The patient is not able to give much history as he does not remember about what happened prior to hospitalization. PAST MEDICAL AND SURGICAL HISTORY: Includes chronic diastolic heart failure secondary to ischemic cardiomyopathy; coronary artery disease, status post stent; hypertension; hyperlipidemia; COPD; obstructive sleep apnea/CPAP noncompliance; type 2 diabetes, on oral medication for a long time; underlying CKD with multiple episodes of acute renal failure in the past; anxiety; depression; ongoing tobacco, alcohol abuse; history of alcohol withdrawal seizures; chronic pain, on Suboxone; medical noncompliance; and substance abuse history. FAMILY HISTORY: Positive for heart disease and diabetes. PERSONAL AND SOCIAL HISTORY: History of alcohol as well as drug abuse. He is currently unemployed. He has been homeless multiple times in the past. He currently lives in a subsidized apartment with a roommate. He is single. Ongoing smoking as well as alcohol at this time. ALLERGIES: Reviewed. MEDICATIONS: Home medication list was reviewed in detail. It is not clear whether he was taking his Lasix as prescribed outpatient or not. REVIEW OF SYSTEMS: Could not be reliably obtained secondary to confusion and disorientation. PHYSICAL EXAMINATION: GENERAL: A middle-aged white male who is awake and alert and oriented; however, he does not recall what happened prior to hospitalization. HEENT: Mucous membrane is moist. NECK: Supple. No jugular venous distention. VITAL SIGNS: Blood pressure is 158/90, pulse rate 78, temperature 36.9, 93% on room air. CHEST: Bilaterally clear to auscultation. Poor inspiratory effort. CARDIOVASCULAR: S1 and S2, regular. ABDOMEN: Soft, nontender. EXTREMITIES: Show trace edema. LABORATORY TESTS: Sodium 133, potassium 4.1, creatinine 2.68, calcium 7.5, phosphorus 4.2, magnesium 2.0. His baseline creatinine is very hard to pinpoint; however, just 2 days ago, he had a creatinine of 1.3, which is as good as it gets, and we will call that as baseline. It peaked at 2.89 yesterday and now is trending down. IMAGING DATA: Chest x-ray done on admission showed no acute process. ASSESSMENT AND PLAN: A 57-year-old male with multiple medical problems, admitted after he was witnessed to have seizure. I have been consulted for acute renal failure. Acute renal failure: The patient has very hard to pinpoint baseline, but just two days ago, he had a creatinine of 1.3, which would be called as baseline at this point. He has had many, many episodes of distinct acute renal failure in the past, some of which were almost needing dialysis. At this point, the patient appears fairly euvolemic. He is eating and drinking normally and we do not need to give him any IV fluids, but I would continue to hold the Lasix for the time being. Do not give him MEAGAN or ARB. His creatinine was 2.89, but this morning is slightly better at 2.6. This is encouraging. He is also making good amount of urine, which is again a sign of good prognosis. Hopefully, his kidneys will start to get better from here. Most likely etiology of the sudden rise in the creatinine could be extremely high blood pressure on admission and then subsequent drop in the blood pressure in a very short period of time. He is very susceptible to acute renal failure and almost every admissions in the past he has had acute renal failure at some point. Continue to hold the Lasix, metformin, NSAIDs, MEAGAN, ARB, contrast agent. I will continue to follow the patient . Job ID: [id number] [facility]
[2022-06-29] MEDS: INSULIN ASPART PER UNIT CHARGE SC SCH (20:33)
[2022-06-29] MEDS: traZODone HCL 50 MG TAB PO PRN (23:38)
[2022-06-30 07:27] LABS: Hematocrit (blood only) 28.9 % (42.0-52.0); Hemoglobin 9.5 g/dl (14.0-18.0); Mean Corpuscular Hemoglobin 30.9 pg (25.0-34.0); Mean Corpuscular Hgb Conc 32.9 g/dL (32.0-36.0); Mean Corpuscular Volume 94.1 fL (80.0-100.0); Mean Platelet Volume 10.4 fL (9.4-12.4); Platelet Count 112 K/uL (130-400); RDW Coefficient of Variation 13.2 % (11.5-14.5); Red Blood Count 3.07 M/uL (4.70-6.10); White Blood Count 4.57 K/ul (4.8-10.8)
[2022-06-30 07:47] LABS: BUN Creatinine Ratio 21.3 (10-20); Calcium 7.8 mg/dl (8.6-10.3); Creatinine Clr Calc Pharmacy 50.3 ml/min; Est GFR (African American) 39.7 ml/min; Est GFR (Non-African American) 34.3 ml/min; Magnesium 1.8 mg/dl (1.7-2.4); Phosphorus 3.5 mg/dl (2.5-4.9); Potassium 4.4 mmol/L (3.5-5.1)
[2022-06-30] MEDS: INSULIN ASPART PER UNIT CHARGE SC SCH ×4 (08:51→20:03)
[2022-06-30] MEDS: ASPIRIN 81 MG CHEW PO SCH (08:52)
[2022-06-30] MEDS: ACETAMINOPHEN 325 MG TAB PO PRN ×2 (08:52→18:21)
[2022-06-30] MEDS: BUPRENORPHINE/NALOXONE 8/2 MG TAB SL SCH ×2 (08:52→20:02)
[2022-06-30] MEDS: NICOTINE 14 MG/24 HR PATCH TD SCH (08:53)
[2022-06-30] MEDS: carvediloL 6.25 MG TAB PO SCH ×2 (08:53→16:04)
[2022-06-30] MEDS: ENOXAPARIN INJ 40 MG/0.4 ML SYR SQ SCH (08:54)
[2022-06-30] MEDS: ATORVASTATIN 40 MG TAB PO SCH (08:54)
[2022-06-30] MEDS: FOLIC ACID 1 MG TAB PO SCH (08:55)
[2022-06-30] MEDS: MULTIVITAMIN TAB PO SCH (08:56)
[2022-06-30] MEDS: amLODIPine BESYLATE 5 MG TAB PO SCH (09:26)
--- NOTE | 2022-06-30 10:13 | Nephrology Progress Note ---
Date of Service June 30, 2022 Assessment & Plan Admission and Anticipated Discharge Date Admission Date: June 27, 2022 Subjective S---Feels fine. made 2200 ml urine without any lasix or iv fluid. PHYSICAL EXAMINATION: GENERAL: A middle-aged white male who is awake and alert and oriented; however, he does not recall what happened prior to hospitalization. HEENT: Mucous membrane is moist. NECK: Supple. No jugular venous distention. VITAL SIGNS: Blood pressure is 158/90, pulse rate 78, temperature 36.9, 93% on room air. CHEST: Bilaterally clear to auscultation. Poor inspiratory effort. CARDIOVASCULAR: S1 and S2, regular. ABDOMEN: Soft, nontender. EXTREMITIES: Show trace edema. LABORATORY TESTS:His baseline creatinine is very hard to pinpoint; however, just 2 days ago, he had a creatinine of 1.3, which is as good as it gets, and we will call that as baseline. It peaked at 2.89 and now is trending down. IMAGING DATA: Chest x-ray done on admission showed no acute process. ASSESSMENT AND PLAN: A 57-year-old male with multiple medical problems, admitted after he was witnessed to have seizure. I have been consulted for acute renal failure. Acute renal failure: The patient has very hard to pinpoint baseline, but just two days ago, he had a creatinine of 1.3, which would be called as baseline at this point. He has had many, many episodes of distinct acute renal failure in the past, some of which were almost needing dialysis. At this point, the patient appears fairly euvolemic. He is eating and drinking normally and we do not need to give him any IV fluids, but I would continue to hold the Lasix for the time being. Do not give him MEAGAN or ARB. His creatinine was 2.89, but this morning is slightly better at 2.6. This is encouraging. He is also making good amount of urine, which is again a sign of good prognosis. Hopefully, his kidneys will start to get better from here. Most likely etiology of the sudden rise in the creatinine could be extremely high blood pressure on admission and then subsequent drop in the blood pressure in a very short period of time. He is very susceptible to acute renal failure and almost every admissions in the past he has had acute renal failure at some point. Rec: 1 Continue to hold the Lasix, metformin, NSAIDs, MEAGAN, ARB, contrast agent.Creat is trending down towards baseline. 2 Daily labs. I and O Results & Data Vital Signs (Past 12 Hours) Vital Signs Temp Pulse Resp BP Pulse Ox O2 Del Method 06/30/22 07:48 36.9 C 79 20 170/92 H 95 Room Air 06/30/22 03:08 36.9 C 78 18 165/87 H 93 Room Air 06/29/22 22:33 36.9 C 82 20 169/90 H 95 Room Air
[2022-06-30 11:58] LABS: Adenovirus F 40/41 PCR Not Detected (NotDetected); Astrovirus PCR Not Detected (NotDetected); Campylobacter PCR Not Detected (NotDetected); Cryptosporidium PCR Not Detected (NotDetected); Cyclospora cayetanensis PCR Not Detected (NotDetected); Entamoeba histolytica PCR Not Detected (NotDetected); Enteroaggregative E.coli(EAEC) Not Detected (NotDetected); Enteropathogenic E.coli (EPEC) Not Detected (NotDetected); Enterotoxigenic E.coli (ETEC) Not Detected (NotDetected); Giardia lamblia PCR Not Detected (NotDetected); Plesiomonas shigelloides PCR Not Detected (NotDetected); Rotavirus A PCR Not Detected (NotDetected); Salmonella PCR Not Detected (NotDetected); Sapovirus PCR Not Detected (NotDetected); Shiga-like Toxin E.coli (STEC) Not Detected (NotDetected); Shigella/Enteroinvasive E.coli Not Detected (NotDetected); Vibrio cholerae PCR Not Detected (NotDetected); Vibrio species PCR Not Detected (NotDetected); Yersinia enterocolitica PCR Not Detected (NotDetected)
[2022-06-30 12:21] LABS: Norovirus GI/GII PCR DETECTED (NotDetected)
--- NOTE | 2022-06-30 12:27 | Hospitalist Progress Note ---
Date of Service June 30, 2022 Assessment & Plan (1) Encephalopathy: (2) Diabetes mellitus type 2 with complications: (3) HTN (hypertension): Plan 57-year-old male with alcohol abuse brought to ED for confusion Acute metabolic encephalopathy-likely related to his alcohol abuse/withdrawal as well as hypertensive crisis. Urine drug screen negative, alcohol level negative. COVID-19 negative. TSH normal, procal negative, no leukocytosis, no source of infection identified. Patient looks stable and nontoxic. Blood cultures negative at 48 hours. Alcohol abuse with withdrawal/history of recurrent alcohol withdrawal seizures- continue alcohol withdrawal protocol, gabapentin taper, thiamine, folate, multivitamin, Ativan as needed. Patient does not want to go to inpatient alcohol rehab at discharge. ONDINA on CKD3b- peaked Cr 2.9 -> down to 2.6.-> 2 Avoid nephrotoxics. Monitor Cr. Nephrology consulted. Hold diuretics. Hyponatremia-likely related to beer potomania and decreased solute intake. Serum osmolality 271, urine osmole 305, urine sodium 16. Sodium improved to 133 ->137 Correcting appropriately. Nephrology following. Hypokalemia-resolved with repletion Diarrhea-with incontinence. No blood. + Norovirus. Resolved Elevated troponin-likely demand ischemia related to his acute medical condition. Troponin trend reviewed. No chest pain. Diabetes mellitus type 2 on insulin-states he has run out of insulin and is requesting for refill at discharge. However he is requiring very less insulin and had hypoglycemic episode despite adequate oral intake. cont sliding scale. [place] as indicated. Glycemic pharmacy consulted. Per outpt records pt was on glipizide and jardiance. Essential hypertension-hypertensive crisis on admission then BP improved. Now BP again elevated. On carvedilol, amlodipine. Prn hydralazine ordered Chronic pain-takes sublingual Suboxone as needed at home. Tobacco abuse -smokes 2 packs a day. Recommended cutting down. Continue with nicotine patch DVT prophylaxis-Lovenox subcu Disposition-pending medical stability. On alcohol withdrawal protocol, hyponatremia being corrected and monitored. ONDINA. Admission and Anticipated Discharge Date Admission Date: June 27, 2022 Subjective Patient seen in follow up of alcohol withdrawal / ? seizure at home, hyponatremia, ondina on ckd, + norovirus Laying in bed in NAD Does not recollect events prior to coming to the hospital. Currently no fevers chills chest pain shortness of breath, no abdominal pain. Had episode of diarrhea/incontinence on admission, but since then no BM. Stool positive for norovirus His tremors and withdrawal symptoms have diminished. Currently sitting up in chair, eating, comfortable ONDINA on ckd - nephrology consulted Cr improved today Review of Systems Review of Systems: All systems reviewed & are unremarkable except as noted in Subjective Physical Exam Physical Exam: General: obese M, not in distress, on room air HEENT: EOMI, AYDEE, MMM Chest: Clear breath sounds bilaterally, no wheezes or crackles CVS: Regular rate and rhythm, normal heart sounds, no murmur Abdomen: Soft, non tender, not distended, normal bowel sounds Neuro: Awake, alert, oriented, conversing well, speech fluent, moves extremities Extremities: Hand Tremors improved. Moves extremities. Results & Data Results & Data Vital Signs (Past 12 Hours) Vital Signs Temp Pulse Resp BP Pulse Ox O2 Del Method 06/30/22 11:39 36.7 C 79 20 158/86 H 96 Room Air 06/30/22 07:48 36.9 C 79 20 170/92 H 95 Room Air 06/30/22 03:08 36.9 C 78 18 165/87 H 93 Room Air Laboratory Results 06/30/22 06/30/22 06/30/22 Range/Units 11:29 10:22 10:22 WBC (4.8-10.8) K/ul RBC (4.70-6.10) M/uL Hgb (14.0-18.0) g/dl Hct (42.0-52.0) % MCV (80.0-100.0) fL MCH (25.0-34.0) pg MCHC (32.0-36.0) g/dL RDW Std Deviation (36.4-46.3) fL RDW Coeff of Alberto (11.5-14.5) % Plt Count (130-400) K/uL MPV (9.4-12.4) fL Sodium (136-145) mmol/L Potassium (3.5-5.1) mmol/L Chloride (98-107) mmol/L Carbon Dioxide (21-32) mmol/L Anion Gap (3-11) BUN (6-23) mg/dl Creatinine (0.6-1.4) mg/dl Est Cr Clr Drug Dosing ml/min Est GFR ( Amer) ml/min Est GFR (Non-Af Amer) ml/min BUN/Creatinine Ratio (10-20) Glucose (70-99(Fasting)) mg/dl POC Glucose 106 H (70-99) mg/dl Calcium (8.6-10.3) mg/dl Phosphorus (2.5-4.9) mg/dl Magnesium (1.7-2.4) mg/dl Stl C. cayetanensis PCR Not Detected (NotDetected) Stool Rotavirus A PCR Not Detected (NotDetected) Stl Adenov F 40/41 PCR Not Detected (NotDetected) Stool Astrovirus (PCR) Not Detected (NotDetected) Stool Campylobacter PCR Not Detected (NotDetected) Stl C. diff Tox B Gene Cancelled Stool Cryptosporidium PCR Not Detected (NotDetected) Stl E.coli Shiga Tox PCR Not Detected (NotDetected) Stl Enterotoxigenic E PCR Not Detected (NotDetected) Stool EPEC (PCR) Not Detected (NotDetected) Stool EAEC (PCR) Not Detected (NotDetected) Stl E. histolytica PCR Not Detected (NotDetected) Stool Giardia Lamblia PCR Not Detected (NotDetected) Stool Salmonella PCR Not Detected (NotDetected) Stool Sapovirus (PCR) Not Detected (NotDetected) Stl P. shigelloides PCR Not Detected (NotDetected) Stl Shigella/EIEC PCR Not Detected (NotDetected) St Y.enterocolitica PCR Not Detected (NotDetected) Stool Vibrio (PCR) Not Detected (NotDetected) Stl Vibrio cholerae PCR Not Detected (NotDetected) Stl Norovirus GI/GII PCR DETECTED A* (NotDetected) 06/30/22 06/30/22 06/30/22 Range/Units 07:29 06:49 06:49 WBC 4.57 L (4.8-10.8) K/ul RBC 3.07 L (4.70-6.10) M/uL Hgb 9.5 L (14.0-18.0) g/dl Hct 28.9 L (42.0-52.0) % MCV 94.1 (80.0-100.0) fL MCH 30.9 (25.0-34.0) pg MCHC 32.9 (32.0-36.0) g/dL RDW Std Deviation 45.0 (36.4-46.3) fL RDW Coeff of Alberto 13.2 (11.5-14.5) % Plt Count 112 L (130-400) K/uL MPV 10.4 (9.4-12.4) fL Sodium 137 (136-145) mmol/L Potassium 4.4 (3.5-5.1) mmol/L Chloride 105 (98-107) mmol/L Carbon Dioxide 26 (21-32) mmol/L Anion Gap 6 (3-11) BUN 44 H (6-23) mg/dl Creatinine 2.07 H D (0.6-1.4) mg/dl Est Cr Clr Drug Dosing 50.3 ml/min Est GFR ( Amer) 39.7 ml/min Est GFR (Non-Af Amer) 34.3 ml/min BUN/Creatinine Ratio 21.3 H (10-20) Glucose 223 H (70-99(Fasting)) mg/dl POC Glucose 239 H (70-99) mg/dl Calcium 7.8 L (8.6-10.3) mg/dl Phosphorus 3.5 (2.5-4.9) mg/dl Magnesium 1.8 (1.7-2.4) mg/dl Stl C. cayetanensis PCR (NotDetected) Stool Rotavirus A PCR (NotDetected) Stl Adenov F 40/41 PCR (NotDetected) Stool Astrovirus (PCR) (NotDetected) Stool Campylobacter PCR (NotDetected) Stl C. diff Tox B Gene Stool Cryptosporidium PCR (NotDetected) Stl E.coli Shiga Tox PCR (NotDetected) Stl Enterotoxigenic E PCR (NotDetected) Stool EPEC (PCR) (NotDetected) Stool EAEC (PCR) (NotDetected) Stl E. histolytica PCR (NotDetected) Stool Giardia Lamblia PCR (NotDetected) Stool Salmonella PCR (NotDetected) Stool Sapovirus (PCR) (NotDetected) Stl P. shigelloides PCR (NotDetected) Stl Shigella/EIEC PCR (NotDetected) St Y.enterocolitica PCR (NotDetected) Stool Vibrio (PCR) (NotDetected) Stl Vibrio cholerae PCR (NotDetected) Stl Norovirus GI/GII PCR (NotDetected) 06/29/22 06/29/22 Range/Units 20:00 16:37 WBC (4.8-10.8) K/ul RBC (4.70-6.10) M/uL Hgb (14.0-18.0) g/dl Hct (42.0-52.0) % MCV (80.0-100.0) fL MCH (25.0-34.0) pg MCHC (32.0-36.0) g/dL RDW Std Deviation (36.4-46.3) fL RDW Coeff of Alberto (11.5-14.5) % Plt Count (130-400) K/uL MPV (9.4-12.4) fL Sodium (136-145) mmol/L Potassium (3.5-5.1) mmol/L Chloride (98-107) mmol/L Carbon Dioxide (21-32) mmol/L Anion Gap (3-11) BUN (6-23) mg/dl Creatinine (0.6-1.4) mg/dl Est Cr Clr Drug Dosing ml/min Est GFR ( Amer) ml/min Est GFR (Non-Af Amer) ml/min BUN/Creatinine Ratio (10-20) Glucose (70-99(Fasting)) mg/dl POC Glucose 237 H 242 H (70-99) mg/dl Calcium (8.6-10.3) mg/dl Phosphorus (2.5-4.9) mg/dl Magnesium (1.7-2.4) mg/dl Stl C. cayetanensis PCR (NotDetected) Stool Rotavirus A PCR (NotDetected) Stl Adenov F 40/41 PCR (NotDetected) Stool Astrovirus (PCR) (NotDetected) Stool Campylobacter PCR (NotDetected) Stl C. diff Tox B Gene Stool Cryptosporidium PCR (NotDetected) Stl E.coli Shiga Tox PCR (NotDetected) Stl Enterotoxigenic E PCR (NotDetected) Stool EPEC (PCR) (NotDetected) Stool EAEC (PCR) (NotDetected) Stl E. histolytica PCR (NotDetected) Stool Giardia Lamblia PCR (NotDetected) Stool Salmonella PCR (NotDetected) Stool Sapovirus (PCR) (NotDetected) Stl P. shigelloides PCR (NotDetected) Stl Shigella/EIEC PCR (NotDetected) St Y.enterocolitica PCR (NotDetected) Stool Vibrio (PCR) (NotDetected) Stl Vibrio cholerae PCR (NotDetected) Stl Norovirus GI/GII PCR (NotDetected) Medications Administered Current Inpatient Medications Acetaminophen (Acetaminophen 325 Mg Tab) 650 mg PO Q4H PRN PRN Reason: Pain or Fever Stop: 07/27/22 04:38 Last Admin: 06/30/22 08:52 Dose: 650 mg Amlodipine Besylate (Amlodipine Besylate 5 Mg Tab) 5 mg PO DAILY [facility] Stop: 07/27/22 08:59 Last Admin: 06/30/22 09:26 Dose: 5 mg Aspirin (Aspirin 81 Mg Chew) 81 mg PO DAILY [facility] Stop: 07/27/22 08:59 Last Admin: 06/30/22 08:52 Dose: 81 mg Atorvastatin Calcium (Atorvastatin 40 Mg Tab) 80 mg PO QAM [facility] Stop: 07/27/22 08:59 Last Admin: 06/30/22 08:54 Dose: 80 mg Buprenorphine/Naloxone (Buprenorphine/Naloxone 8/2 Mg Tab) 1 tab SL BID [facility] Stop: 07/27/22 08:59 Last Admin: 06/30/22 08:52 Dose: 1 tab Carvedilol (Carvedilol 6.25 Mg Tab) 6.25 mg PO BIDM [facility] Stop: 07/27/22 20:59 Last Admin: 06/30/22 08:53 Dose: 6.25 mg Dextrose (Dextrose 50% 50 Ml Syringe) 25 - 50 ml IV UD PRN; Protocol PRN Reason: Hypoglycemia Protocol Stop: 07/27/22 04:38 Enoxaparin Sodium (Enoxaparin Inj 40 Mg/0.4 Ml Syr) 40 mg SQ QAM [facility] Stop: 07/27/22 08:59 Last Admin: 06/30/22 08:54 Dose: 40 mg Folic Acid (Folic Acid 1 Mg Tab) 1 mg PO QAM [facility] Stop: 07/27/22 08:59 Last Admin: 06/30/22 08:55 Dose: 1 mg Gabapentin (Gabapentin 600 Mg Tab) 600 mg PO Q24H [facility] Stop: 06/30/22 14:01 Glucagon (Glucagon For Inj 1 Mg Vial) 1 mg SQ UD PRN; Protocol PRN Reason: Hypoglycemia Protocol Stop: 07/27/22 04:38 Glucose (Glucose 10 Tab/Tube) 4 - 8 tab PO UD PRN; Protocol PRN Reason: Hypoglycemia Treatment Stop: 07/27/22 04:38 Glucose (Glucose 40% Gel 15 Gm Tube) 15 - 30 gm PO UD PRN; Protocol PRN Reason: Hypoglycemia Protocol Stop: 07/27/22 04:38 Promethazine HCl 12.5 mg/ (Sodium Chloride) 50.5 mls @ 202 mls/hr IV Q6H PRN PRN Reason: Nausea And Vomiting Stop: 07/27/22 03:15 Insulin Aspart (Insulin Aspart Per Unit Charge) 0 units SC ACHS [facility] Stop: 07/27/22 04:38 Last Admin: 06/30/22 11:52 Dose: 4 units Lorazepam (Lorazepam 2 Mg/1 Ml Vial) 3 mg IV ONCE PRN; Protocol PRN Reason: EtOH Withdrawal AWSS Score 10+ Lorazepam (Lorazepam 2 Mg/1 Ml Vial) 2 mg IV UD PRN; Protocol PRN Reason: EtOH Withdrawal AWSS Score 8,9 Stop: 07/27/22 03:15 Last Admin: 06/29/22 02:03 Dose: 2 mg Lorazepam (Lorazepam 2 Mg/1 Ml Vial) 1 mg IV UD PRN; Protocol PRN Reason: EtOH Withdrawal AWSS Score 6,7 Stop: 07/27/22 03:15 Lorazepam (Lorazepam 2 Mg/1 Ml Vial) 1 mg IV Q10M PRN PRN Reason: seizures Stop: 07/27/22 03:18 Melatonin (Melatonin 3 Mg Tab) 3 mg PO HS PRN PRN Reason: Sleep Stop: 07/29/22 01:44 Last Admin: 06/29/22 02:03 Dose: 3 mg Miscellaneous (Carbohydrates For Hypoglycemia ) 15 - 30 gm PO UD PRN PRN Reason: Hypoglycemia Protocol Stop: 07/27/22 04:38 Miscellaneous (Remove Nicoderm Patch) 1 each N/A DAILY@0859 [facility] Stop: 07/28/22 08:58 Last Admin: 06/30/22 08:53 Dose: 1 each Multivitamins (Multivitamin Tab) 1 tab PO QAM [facility] Stop: 07/27/22 08:59 Last Admin: 06/30/22 08:56 Dose: 1 tab Nicotine (Nicotine 14 Mg/24 Hr Patch) 14 mg TD QAM [facility] Stop: 07/27/22 05:49 Last Admin: 06/30/22 08:53 Dose: 14 mg Trazodone HCl (Trazodone Hcl 50 Mg Tab) 50 mg PO HS PRN PRN Reason: insomnia Stop: 07/29/22 20:59 Last Admin: 06/29/22 23:38 Dose: 50 mg (3) HTN (hypertension) Hypertension type: primary hypertension Qualified Code(s): I10 - Essential (primary) hypertension
[2022-06-30] MEDS ORDERED: GABAPENTIN 600 MG TAB PO SCH ×2 (14:00→15:30)
[2022-06-30] MEDS: hydrALAZINE HCL 20 MG/ML VIAL IV PRN (18:22)
[2022-06-30] MEDS ORDERED: LABETALOL HCL IV 5 MG/ML 20ML IV STA (19:48)
[2022-06-30] MEDS: traZODone HCL 50 MG TAB PO PRN (20:03)
[2022-06-30] MEDS ORDERED: hydrALAZINE HCL 20 MG/ML VIAL IV STA (23:02)
[2022-07-01] MEDS: hydrALAZINE HCL 20 MG/ML VIAL IV PRN ×3 (03:52→22:27)
[2022-07-01 06:25] LABS: BUN Creatinine Ratio 19.7 (10-20); Calcium 8.2 mg/dl (8.6-10.3); Creatinine Clr Calc Pharmacy 56.8 ml/min; Est GFR (African American) 46.1 ml/min; Est GFR (Non-African American) 39.8 ml/min; Magnesium 1.4 mg/dl (1.7-2.4); Phosphorus 3.1 mg/dl (2.5-4.9); Potassium 4.4 mmol/L (3.5-5.1)
[2022-07-01] MEDS: INSULIN ASPART PER UNIT CHARGE SC SCH ×4 (08:27→20:22)
[2022-07-01] MEDS: ASPIRIN 81 MG CHEW PO SCH (08:33)
[2022-07-01] MEDS: ACETAMINOPHEN 325 MG TAB PO PRN ×2 (08:33→20:02)
[2022-07-01] MEDS: ATORVASTATIN 40 MG TAB PO SCH (08:34)
[2022-07-01] MEDS: MULTIVITAMIN TAB PO SCH (08:34)
[2022-07-01] MEDS: ENOXAPARIN INJ 40 MG/0.4 ML SYR SQ SCH (08:34)
[2022-07-01] MEDS: NICOTINE 14 MG/24 HR PATCH TD SCH (08:34)
[2022-07-01] MEDS: carvediloL 6.25 MG TAB PO SCH (08:36)
[2022-07-01] MEDS: amLODIPine BESYLATE 5 MG TAB PO SCH ×2 (08:36→20:03)
[2022-07-01] MEDS: FOLIC ACID 1 MG TAB PO SCH (08:37)
--- NOTE | 2022-07-01 08:38 | Hospitalist Progress Note ---
Date of Service July 01, 2022 Assessment & Plan (1) Encephalopathy: (2) Diabetes mellitus type 2 with complications: (3) HTN (hypertension): Plan 57-year-old male with alcohol abuse brought to ED for confusion Acute metabolic encephalopathy-likely related to his alcohol abuse/withdrawal as well as hypertensive crisis. Urine drug screen negative, alcohol level negative. COVID-19 negative. TSH normal, procal negative, no leukocytosis, no source of infection identified. Patient looks stable and nontoxic. Blood cultures negative at 48 hours. Alcohol abuse with withdrawal/history of recurrent alcohol withdrawal seizures- continue alcohol withdrawal protocol, gabapentin taper, thiamine, folate, multivitamin, Ativan as needed. Patient does not want to go to inpatient alcohol rehab at discharge. ONDINA on CKD3b- peaked Cr 2.9 -> down to 2.6.-> 2 -> 1.8 Avoid nephrotoxics. Monitor Cr. Nephrology consulted. Hold diuretics. Hyponatremia-likely related to beer potomania and decreased solute intake. Serum osmolality 271, urine osmole 305, urine sodium 16. Sodium improved to 133 ->137 ->136 Correcting appropriately. Nephrology following. Hypokalemia-resolved with repletion Hypomagnesemia- replete and monitor Diarrhea-with incontinence. No blood. + Norovirus. Resolved Elevated troponin-likely demand ischemia related to his acute medical condition. Troponin trend reviewed. No chest pain. Diabetes mellitus type 2 on insulin-states he has run out of insulin and is requesting for refill at discharge. However he is requiring very less insulin and had hypoglycemic episode despite adequate oral intake. cont sliding scale. [place] as indicated. Glycemic pharmacy consulted. Per outpt records pt was on glipizide and jardiance. Essential hypertension-hypertensive crisis on admission then BP improved. Now BP again elevated, diuretics on hold d/t ondina. On carvedilol, amlodipine - dose increased - discussed w/ nephrology. Prn hydralazine ordered Chronic pain-takes sublingual Suboxone as needed at home. Tobacco abuse -smokes 2 packs a day. Recommended cutting down. Continue with nicotine patch DVT prophylaxis-Lovenox subcu Disposition-pending medical stability. On alcohol withdrawal protocol, hyponatremia being corrected and monitored. ONDINA. Admission and Anticipated Discharge Date Admission Date: June 27, 2022 Subjective Patient seen in follow up of alcohol withdrawal / ? seizure at home, hyponatremia, ondina on ckd, + norovirus Laying in bed in NAD Does not recollect events prior to coming to the hospital. Currently no fevers chills chest pain shortness of breath, no abdominal pain. Had episode of diarrhea/incontinence on admission, but since then normal formed stools. Stool positive for norovirus His tremors and withdrawal symptoms have diminished. ONDINA on ckd - nephrology consulted Cr improved BP elevated - coreg, amlodipine increased Review of Systems Review of Systems: All systems reviewed & are unremarkable except as noted in Subjective Physical Exam Physical Exam: General: obese M, not in distress, on room air HEENT: EOMI, AYDEE, MMM Chest: Clear breath sounds bilaterally, no wheezes or crackles CVS: Regular rate and rhythm, normal heart sounds, no murmur Abdomen: Soft, non tender, not distended, normal bowel sounds Neuro: Awake, alert, oriented, conversing well, speech fluent, moves extremities Extremities: Hand Tremors much improved. Moves extremities. Results & Data Results & Data Vital Signs (Past 12 Hours) Vital Signs Temp Pulse Pulse Resp BP Pulse Ox O2 Del Method 07/01/22 06:34 93 H 171/88 H 07/01/22 03:37 36.4 C L 96 H 20 197/79 H 94 Room Air 07/01/22 02:33 96 H 07/01/22 00:17 90 17 181/90 H Room Air 06/30/22 22:46 36.7 C 88 18 208/98 H 96 Room Air Laboratory Results 07/01/22 07/01/22 06/30/22 Range/Units 07:08 05:46 19:59 Sodium 136 (136-145) mmol/L Potassium 4.4 (3.5-5.1) mmol/L Chloride 106 (98-107) mmol/L Carbon Dioxide 22 (21-32) mmol/L Anion Gap 8 (3-11) BUN 36 H (6-23) mg/dl Creatinine 1.83 H (0.6-1.4) mg/dl Est Cr Clr Drug Dosing 56.8 ml/min Est GFR ( Amer) 46.1 ml/min Est GFR (Non-Af Amer) 39.8 ml/min BUN/Creatinine Ratio 19.7 (10-20) Glucose 162 H (70-99(Fasting)) mg/dl POC Glucose 170 H 188 H (70-99) mg/dl Calcium 8.2 L (8.6-10.3) mg/dl Phosphorus 3.1 (2.5-4.9) mg/dl Magnesium 1.4 L (1.7-2.4) mg/dl Stl C. cayetanensis PCR (NotDetected) Stool Rotavirus A PCR (NotDetected) Stl Adenov F 40/41 PCR (NotDetected) Stool Astrovirus (PCR) (NotDetected) Stool Campylobacter PCR (NotDetected) Stl C. diff Tox B Gene Stool Cryptosporidium PCR (NotDetected) Stl E.coli Shiga Tox PCR (NotDetected) Stl Enterotoxigenic E PCR (NotDetected) Stool EPEC (PCR) (NotDetected) Stool EAEC (PCR) (NotDetected) Stl E. histolytica PCR (NotDetected) Stool Giardia Lamblia PCR (NotDetected) Stool Salmonella PCR (NotDetected) Stool Sapovirus (PCR) (NotDetected) Stl P. shigelloides PCR (NotDetected) Stl Shigella/EIEC PCR (NotDetected) St Y.enterocolitica PCR (NotDetected) Stool Vibrio (PCR) (NotDetected) Stl Vibrio cholerae PCR (NotDetected) Stl Norovirus GI/GII PCR (NotDetected) 06/30/22 06/30/22 06/30/22 Range/Units 16:10 11:29 10:22 Sodium (136-145) mmol/L Potassium (3.5-5.1) mmol/L Chloride (98-107) mmol/L Carbon Dioxide (21-32) mmol/L Anion Gap (3-11) BUN (6-23) mg/dl Creatinine (0.6-1.4) mg/dl Est Cr Clr Drug Dosing ml/min Est GFR ( Amer) ml/min Est GFR (Non-Af Amer) ml/min BUN/Creatinine Ratio (10-20) Glucose (70-99(Fasting)) mg/dl POC Glucose 207 H 106 H (70-99) mg/dl Calcium (8.6-10.3) mg/dl Phosphorus (2.5-4.9) mg/dl Magnesium (1.7-2.4) mg/dl Stl C. cayetanensis PCR (NotDetected) Stool Rotavirus A PCR (NotDetected) Stl Adenov F PCR (NotDetected) Stool Astrovirus (PCR) (NotDetected) Stool Campylobacter PCR (NotDetected) Stl C. diff Tox B Gene Cancelled Stool Cryptosporidium PCR (NotDetected) Stl E.coli Shiga Tox PCR (NotDetected) Stl Enterotoxigenic E PCR (NotDetected) Stool EPEC (PCR) (NotDetected) Stool EAEC (PCR) (NotDetected) Stl E. histolytica PCR (NotDetected) Stool Giardia Lamblia PCR (NotDetected) Stool Salmonella PCR (NotDetected) Stool Sapovirus (PCR) (NotDetected) Stl P. shigelloides PCR (NotDetected) Stl Shigella/EIEC PCR (NotDetected) St Y.enterocolitica PCR (NotDetected) Stool Vibrio (PCR) (NotDetected) Stl Vibrio cholerae PCR (NotDetected) Stl Norovirus GI/GII PCR (NotDetected) 06/30/22 Range/Units 10:22 Sodium (136-145) mmol/L Potassium (3.5-5.1) mmol/L Chloride (98-107) mmol/L Carbon Dioxide (21-32) mmol/L Anion Gap (3-11) BUN (6-23) mg/dl Creatinine (0.6-1.4) mg/dl Est Cr Clr Drug Dosing ml/min Est GFR ( Amer) ml/min Est GFR (Non-Af Amer) ml/min BUN/Creatinine Ratio (10-20) Glucose (70-99(Fasting)) mg/dl POC Glucose (70-99) mg/dl Calcium (8.6-10.3) mg/dl Phosphorus (2.5-4.9) mg/dl Magnesium (1.7-2.4) mg/dl Stl C. cayetanensis PCR Not Detected (NotDetected) Stool Rotavirus A PCR Not Detected (NotDetected) Stl Adenov F PCR Not Detected (NotDetected) Stool Astrovirus (PCR) Not Detected (NotDetected) Stool Campylobacter PCR Not Detected (NotDetected) Stl C. diff Tox B Gene Stool Cryptosporidium PCR Not Detected (NotDetected) Stl E.coli Shiga Tox PCR Not Detected (NotDetected) Stl Enterotoxigenic E PCR Not Detected (NotDetected) Stool EPEC (PCR) Not Detected (NotDetected) Stool EAEC (PCR) Not Detected (NotDetected) Stl E. histolytica PCR Not Detected (NotDetected) Stool Giardia Lamblia PCR Not Detected (NotDetected) Stool Salmonella PCR Not Detected (NotDetected) Stool Sapovirus (PCR) Not Detected (NotDetected) Stl P. shigelloides PCR Not Detected (NotDetected) Stl Shigella/EIEC PCR Not Detected (NotDetected) St Y.enterocolitica PCR Not Detected (NotDetected) Stool Vibrio (PCR) Not Detected (NotDetected) Stl Vibrio cholerae PCR Not Detected (NotDetected) Stl Norovirus GI/GII PCR DETECTED A* (NotDetected) Medications Administered Current Inpatient Medications Acetaminophen (Acetaminophen 325 Mg Tab) 650 mg PO Q4H PRN PRN Reason: Pain or Fever Stop: 07/27/22 04:38 Last Admin: 06/30/22 18:21 Dose: 650 mg Amlodipine Besylate (Amlodipine Besylate 5 Mg Tab) 5 mg PO DAILY [facility] Stop: 07/27/22 08:59 Last Admin: 06/30/22 09:26 Dose: 5 mg Aspirin (Aspirin 81 Mg Chew) 81 mg PO DAILY [facility] Stop: 07/27/22 08:59 Last Admin: 06/30/22 08:52 Dose: 81 mg Atorvastatin Calcium (Atorvastatin 40 Mg Tab) 80 mg PO QAM [facility] Stop: 07/27/22 08:59 Last Admin: 06/30/22 08:54 Dose: 80 mg Buprenorphine/Naloxone (Buprenorphine/Naloxone 8/2 Mg Tab) 1 tab SL BID [facility] Stop: 07/27/22 08:59 Last Admin: 06/30/22 20:02 Dose: 1 tab Carvedilol (Carvedilol 6.25 Mg Tab) 6.25 mg PO BIDM [facility] Stop: 07/27/22 20:59 Last Admin: 06/30/22 16:04 Dose: 6.25 mg Dextrose (Dextrose 50% 50 Ml Syringe) 25 - 50 ml IV UD PRN; Protocol PRN Reason: Hypoglycemia Protocol Stop: 07/27/22 04:38 Enoxaparin Sodium (Enoxaparin Inj 40 Mg/0.4 Ml Syr) 40 mg SQ QAM [facility] Stop: 07/27/22 08:59 Last Admin: 06/30/22 08:54 Dose: 40 mg Folic Acid (Folic Acid 1 Mg Tab) 1 mg PO QAM [facility] Stop: 07/27/22 08:59 Last Admin: 06/30/22 08:55 Dose: 1 mg Glucagon (Glucagon For Inj 1 Mg Vial) 1 mg SQ UD PRN; Protocol PRN Reason: Hypoglycemia Protocol Stop: 07/27/22 04:38 Glucose (Glucose 10 Tab/Tube) 4 - 8 tab PO UD PRN; Protocol PRN Reason: Hypoglycemia Treatment Stop: 07/27/22 04:38 Glucose (Glucose 40% Gel 15 Gm Tube) 15 - 30 gm PO UD PRN; Protocol PRN Reason: Hypoglycemia Protocol Stop: 07/27/22 04:38 Hydralazine HCl (Hydralazine Hcl 20 Mg/Ml Vial) 5 mg IV Q6H PRN PRN Reason: SBP> 175 Stop: 07/30/22 16:26 Last Admin: 07/01/22 03:52 Dose: 5 mg Promethazine HCl 12.5 mg/ (Sodium Chloride) 50.5 mls @ 202 mls/hr IV Q6H PRN PRN Reason: Nausea And Vomiting Stop: 07/27/22 03:15 Magnesium Sulfate/Dextrose (Magnesium Sulfate / D5w) 1 gm in 100 mls @ 50 mls/hr IV Q2H [facility] Stop: 07/01/22 12:44 Insulin Aspart (Insulin Aspart Per Unit Charge) 0 units SC ACHS [facility] Stop: 07/27/22 04:38 Last Admin: 07/01/22 08:27 Dose: 2 units Lorazepam (Lorazepam 2 Mg/1 Ml Vial) 3 mg IV ONCE PRN; Protocol PRN Reason: EtOH Withdrawal AWSS Score 10+ Lorazepam (Lorazepam 2 Mg/1 Ml Vial) 2 mg IV UD PRN; Protocol PRN Reason: EtOH Withdrawal AWSS Score 8,9 Stop: 07/27/22 03:15 Last Admin: 06/29/22 02:03 Dose: 2 mg Lorazepam (Lorazepam 2 Mg/1 Ml Vial) 1 mg IV UD PRN; Protocol PRN Reason: EtOH Withdrawal AWSS Score 6,7 Stop: 07/27/22 03:15 Lorazepam (Lorazepam 2 Mg/1 Ml Vial) 1 mg IV Q10M PRN PRN Reason: seizures Stop: 07/27/22 03:18 Magnesium Oxide (Magnesium Oxide 400 Mg Tab) 400 mg PO BID [facility] Stop: 07/31/22 08:59 Melatonin (Melatonin 3 Mg Tab) 3 mg PO HS PRN PRN Reason: Sleep Stop: 07/29/22 01:44 Last Admin: 06/29/22 02:03 Dose: 3 mg Miscellaneous (Carbohydrates For Hypoglycemia ) 15 - 30 gm PO UD PRN PRN Reason: Hypoglycemia Protocol Stop: 07/27/22 04:38 Miscellaneous (Remove Nicoderm Patch) 1 each N/A DAILY@0859 [facility] Stop: 07/28/22 08:58 Last Admin: 06/30/22 08:53 Dose: 1 each Multivitamins (Multivitamin Tab) 1 tab PO QAM [facility] Stop: 07/27/22 08:59 Last Admin: 06/30/22 08:56 Dose: 1 tab Nicotine (Nicotine 14 Mg/24 Hr Patch) 14 mg TD QAM [facility] Stop: 07/27/22 05:49 Last Admin: 06/30/22 08:53 Dose: 14 mg Trazodone HCl (Trazodone Hcl 50 Mg Tab) 50 mg PO HS PRN PRN Reason: insomnia Stop: 07/29/22 20:59 Last Admin: 06/30/22 20:03 Dose: 50 mg (3) HTN (hypertension) Hypertension type: primary hypertension Qualified Code(s): I10 - Essential (primary) hypertension
[2022-07-01] MEDS: BUPRENORPHINE/NALOXONE 8/2 MG TAB SL SCH ×2 (08:39→20:02)
[2022-07-01] MEDS: MAGNESIUM OXIDE 400 MG TAB PO SCH ×2 (09:44→20:04)
[2022-07-01] MEDS: MAGNESIUM SULFATE / D5W 1 GM/100 ML BAG IV SCH ×3 (09:45→12:09)
--- NOTE | 2022-07-01 11:02 | Nephrology Progress Note ---
Date of Service July 01, 2022 Assessment & Plan Admission and Anticipated Discharge Date Admission Date: June 27, 2022 Subjective Subjective S---Feels fine. Making lot of urine without any lasix or iv fluid. BP is starting to get high again and needed some PRN meds. PHYSICAL EXAMINATION: GENERAL: A middle-aged white male who is awake and alert and oriented; however, he does not recall what happened prior to hospitalization. HEENT: Mucous membrane is moist. NECK: Supple. No jugular venous distention. VITAL SIGNS: Blood pressure is 158/90, pulse rate 78, temperature 36.9, 93% on room air. CHEST: Bilaterally clear to auscultation. Poor inspiratory effort. CARDIOVASCULAR: S1 and S2, regular. ABDOMEN: Soft, nontender. EXTREMITIES: Show trace edema. LABORATORY TESTS:His baseline creatinine is very hard to pinpoint; however, just few days ago, he had a creatinine of 1.3, which is as good as it gets, and we will call that as baseline. It peaked at 2.89 and now is trending down. creat 1.8 today IMAGING DATA: Chest x-ray done on admission showed no acute process. ASSESSMENT AND PLAN: A 57-year-old male with multiple medical problems, admitted after he was witnessed to have seizure. I have been consulted for acute renal failure. Acute renal failure: The patient has very hard to pinpoint baseline, but just two days ago, he had a creatinine of 1.3, which would be called as baseline at this point. He has had many, many episodes of distinct acute renal failure in the past, some of which were almost needing dialysis. At this point, the patient appears fairly euvolemic. He is eating and drinking normally and we do not need to give him any IV fluids, but I would continue to hold the Lasix for the time being. Do not give him MEAGAN or ARB. His creatinine was 2.89, but this morning is slightly better at 2.6. This is encouraging. He is also making good amount of urine, which is again a sign of good prognosis. Hopefully, his kidneys will start to get better from here. Most likely etiology of the sudden rise in the creatinine could be extremely high blood pressure on admission and then subsequent drop in the blood pressure in a very short period of time. He is very susceptible to acute renal failure and almost every admissions in the past he has had acute renal failure at some point. Rec: 1 Continue to hold the Lasix, metformin, NSAIDs, MEAGAN, ARB, contrast agent.Creat is trending down towards baseline. 2 Daily labs. I and O 3 BP is now starting to get high so will raise the coreg to 12.5 bid. Raise amlo to 5 bid for now 4 Cannot use HCTZ given his tendency of low na . 5 may have to use Lasix from tomorrow. Results & Data Vital Signs (Past 12 Hours) Vital Signs Temp Pulse Pulse Resp BP Pulse Ox O2 Del Method 07/01/22 06:34 93 H 171/88 H 07/01/22 03:37 36.4 C L 96 H 20 197/79 H 94 Room Air 07/01/22 02:33 96 H 07/01/22 00:17 90 17 181/90 H Room Air
[2022-07-01] MEDS: carvediloL 12.5 MG TAB PO SCH (16:17)
[2022-07-01] MEDS: traZODone HCL 50 MG TAB PO PRN (20:02)
[2022-07-01] MEDS ORDERED: LABETALOL HCL IV 5 MG/ML 20ML IV STA (23:36)
[2022-07-02] MEDS: hydrALAZINE HCL 20 MG/ML VIAL IV PRN ×2 (04:49→23:01)
[2022-07-02 07:55] LABS: BUN Creatinine Ratio 19.1 (10-20); Calcium 8.5 mg/dl (8.6-10.3); Creatinine Clr Calc Pharmacy 63.9 ml/min; Est GFR (African American) 53.4 ml/min; Est GFR (Non-African American) 46.1 ml/min; Magnesium 1.7 mg/dl (1.7-2.4); Phosphorus 3.3 mg/dl (2.5-4.9); Potassium 4.5 mmol/L (3.5-5.1)
[2022-07-02] MEDS: amLODIPine BESYLATE 5 MG TAB PO SCH ×2 (08:44→20:00)
[2022-07-02] MEDS: carvediloL 12.5 MG TAB PO SCH ×2 (08:44→17:08)
[2022-07-02] MEDS: ASPIRIN 81 MG CHEW PO SCH (08:45)
[2022-07-02] MEDS: ENOXAPARIN INJ 40 MG/0.4 ML SYR SQ SCH (08:45)
[2022-07-02] MEDS: ATORVASTATIN 40 MG TAB PO SCH (08:45)
[2022-07-02] MEDS: FOLIC ACID 1 MG TAB PO SCH (08:46)
[2022-07-02] MEDS: MAGNESIUM OXIDE 400 MG TAB PO SCH ×2 (08:46→19:59)
[2022-07-02] MEDS: THIAMINE HCL 100 MG TAB PO SCH (08:47)
[2022-07-02] MEDS: MULTIVITAMIN TAB PO SCH (08:47)
[2022-07-02] MEDS: NICOTINE 14 MG/24 HR PATCH TD SCH (08:47)
--- NOTE | 2022-07-02 09:05 | Hospitalist Progress Note ---
Date of Service July 02, 2022 Assessment & Plan (1) Encephalopathy: (2) Diabetes mellitus type 2 with complications: (3) HTN (hypertension): Plan 57-year-old male with alcohol abuse brought to ED for confusion Acute metabolic encephalopathy-likely related to his alcohol abuse/withdrawal as well as hypertensive crisis. Urine drug screen negative, alcohol level negative. COVID-19 negative. TSH normal, procal negative, no leukocytosis, no source of infection identified. Patient looks stable and nontoxic. Blood cultures negative at 48 hours. Alcohol abuse with withdrawal/history of recurrent alcohol withdrawal seizures- continue alcohol withdrawal protocol, gabapentin taper, thiamine, folate, multivitamin, Ativan as needed. Patient does not want to go to inpatient alcohol rehab at discharge. ONDINA on CKD3b- peaked Cr 2.9 -> down to 2.6.-> 2 -> 1.8 -> 1.6 Avoid nephrotoxics. Monitor Cr. Nephrology consulted. Hold diuretics. Hyponatremia-likely related to beer potomania and decreased solute intake. Serum osmolality 271, urine osmole 305, urine sodium 16. Sodium improved to 133 ->137 ->136 -> 135 Correcting appropriately. Nephrology following. Hypokalemia-resolved with repletion Hypomagnesemia- replete and monitor Diarrhea-with incontinence. No blood. + Norovirus. Resolved Elevated troponin-likely demand ischemia related to his acute medical condition. Troponin trend reviewed. No chest pain. Diabetes mellitus type 2 on insulin-states he has run out of insulin and is requesting for refill at discharge. However he is requiring very less insulin and had hypoglycemic episode despite adequate oral intake. cont sliding scale. [place] as indicated. Glycemic pharmacy consulted. Per outpt records pt was on glipizide and jardiance. Essential hypertension-hypertensive crisis on admission then BP improved. Now BP again elevated, diuretics on hold d/t ondina. On carvedilol, amlodipine - dose increased - discussed w/ nephrology. Prn hydralazine ordered Chronic pain-takes sublingual Suboxone as needed at home. Tobacco abuse -smokes 2 packs a day. Recommended cutting down. Continue with nicotine patch DVT prophylaxis-Lovenox subcu Disposition-pending medical stability. On alcohol withdrawal protocol, hyponatremia being corrected and monitored. ONDINA. Admission and Anticipated Discharge Date Admission Date: June 27, 2022 Subjective Patient seen in follow up of alcohol withdrawal / ? seizure at home, hyponatremia, ondina on ckd, + norovirus Sitting up in bed in NAD Currently no fevers chills chest pain shortness of breath, no abdominal pain. Had episode of diarrhea/incontinence on admission, but since then normal formed stools. Stool positive for norovirus His tremors and withdrawal symptoms have diminished. Overall feels well. Can't tell me where he lives - will involve CM for DC needs ONDINA on ckd - nephrology consulted Cr improved BP elevated - coreg, amlodipine increased Review of Systems Review of Systems: All systems reviewed & are unremarkable except as noted in Subjective Physical Exam Physical Exam: General: obese M, not in distress, on room air HEENT: EOMI, AYDEE, MMM Chest: Clear breath sounds bilaterally, no wheezes or crackles CVS: Regular rate and rhythm, normal heart sounds, no murmur Abdomen: Soft, non tender, not distended, normal bowel sounds Neuro: Awake, alert, oriented, conversing well, speech fluent, moves extremities Extremities: Hand Tremors much improved. Moves extremities. Results & Data Results & Data Vital Signs (Past 12 Hours) Vital Signs Temp Pulse Pulse Resp BP Pulse Ox O2 Del Method 07/02/22 07:49 78 16 182/87 H 96 Room Air 07/02/22 04:11 36.8 C 79 20 175/82 H 96 Room Air 07/02/22 03:14 75 07/02/22 00:29 88 180/88 H 07/01/22 23:00 37.0 C 84 18 192/96 H 97 Room Air 07/01/22 23:00 87 192/96 H 07/01/22 22:26 80 201/96 H Laboratory Results 07/02/22 07/02/22 07/01/22 Range/Units 07:38 07:06 20:17 Sodium 135 L (136-145) mmol/L Potassium 4.5 (3.5-5.1) mmol/L Chloride 103 (98-107) mmol/L Carbon Dioxide 24 (21-32) mmol/L Anion Gap 8 (3-11) BUN 31 H (6-23) mg/dl Creatinine 1.62 H (0.6-1.4) mg/dl Est Cr Clr Drug Dosing 63.9 ml/min Est GFR ( Amer) 53.4 ml/min Est GFR (Non-Af Amer) 46.1 ml/min BUN/Creatinine Ratio 19.1 (10-20) Glucose 135 H (70-99(Fasting)) mg/dl POC Glucose 140 H 193 H (70-99) mg/dl Calcium 8.5 L (8.6-10.3) mg/dl Phosphorus 3.3 (2.5-4.9) mg/dl Magnesium 1.7 (1.7-2.4) mg/dl 07/01/22 07/01/22 07/01/22 Range/Units 16:38 11:59 11:35 Sodium (136-145) mmol/L Potassium (3.5-5.1) mmol/L Chloride (98-107) mmol/L Carbon Dioxide (21-32) mmol/L Anion Gap (3-11) BUN (6-23) mg/dl Creatinine (0.6-1.4) mg/dl Est Cr Clr Drug Dosing ml/min Est GFR ( Amer) ml/min Est GFR (Non-Af Amer) ml/min BUN/Creatinine Ratio (10-20) Glucose (70-99(Fasting)) mg/dl POC Glucose 149 H 232 H 218 H (70-99) mg/dl Calcium (8.6-10.3) mg/dl Phosphorus (2.5-4.9) mg/dl Magnesium (1.7-2.4) mg/dl Medications Administered Current Inpatient Medications Acetaminophen (Acetaminophen 325 Mg Tab) 650 mg PO Q4H PRN PRN Reason: Pain or Fever Stop: 07/27/22 04:38 Last Admin: 07/01/22 20:02 Dose: 650 mg Amlodipine Besylate (Amlodipine Besylate 5 Mg Tab) 5 mg PO BID [facility] Stop: 07/31/22 20:59 Last Admin: 07/02/22 08:44 Dose: 5 mg Aspirin (Aspirin 81 Mg Chew) 81 mg PO DAILY [facility] Stop: 07/27/22 08:59 Last Admin: 07/02/22 08:45 Dose: 81 mg Atorvastatin Calcium (Atorvastatin 40 Mg Tab) 80 mg PO QAM [facility] Stop: 07/27/22 08:59 Last Admin: 07/02/22 08:45 Dose: 80 mg Buprenorphine/Naloxone (Buprenorphine/Naloxone 8/2 Mg Tab) 1 tab SL BID [facility] Stop: 07/27/22 08:59 Last Admin: 07/01/22 20:02 Dose: 1 tab Carvedilol (Carvedilol 12.5 Mg Tab) 12.5 mg PO BIDM [facility] Stop: 07/31/22 16:59 Last Admin: 07/02/22 08:44 Dose: 12.5 mg Dextrose (Dextrose 50% 50 Ml Syringe) 25 - 50 ml IV UD PRN; Protocol PRN Reason: Hypoglycemia Protocol Stop: 07/27/22 04:38 Enoxaparin Sodium (Enoxaparin Inj 40 Mg/0.4 Ml Syr) 40 mg SQ [facility] Stop: 07/27/22 08:59 Last Admin: 07/02/22 08:45 Dose: 40 mg Folic Acid (Folic Acid 1 Mg Tab) [facility] [place]: 07/27/22 08:59 Last Admin: 07/02/22 08:46 Dose: 1 mg Glucagon (Glucagon For Inj 1 Mg Vial) 1 mg SQ UD PRN; Protocol PRN Reason: Hypoglycemia Protocol Stop: 07/27/22 04:38 Glucose (Glucose 10 Tab/Tube) 4 - 8 tab PO UD PRN; Protocol PRN Reason: Hypoglycemia Treatment Stop: 07/27/22 04:38 Glucose (Glucose 40% Gel 15 Gm Tube) 15 - 30 gm PO UD PRN; Protocol PRN Reason: Hypoglycemia Protocol Stop: 07/27/22 04:38 Hydralazine HCl (Hydralazine Hcl 20 Mg/Ml Vial) 5 mg IV Q6H PRN PRN Reason: SBP> 175 Stop: 07/30/22 16:26 Last Admin: 07/02/22 04:49 Dose: 5 mg Promethazine HCl 12.5 mg/ (Sodium Chloride) 50.5 mls @ 202 mls/hr IV Q6H PRN PRN Reason: Nausea And Vomiting Stop: 07/27/22 03:15 Insulin Aspart (Insulin Aspart Per Unit Charge) 0 units SC [facility] Stop: 07/27/22 04:38 Last Admin: 07/01/22 20:22 Dose: 2 units Lorazepam (Lorazepam 2 Mg/1 Ml Vial) 3 mg IV ONCE PRN; Protocol PRN Reason: EtOH Withdrawal AWSS Score 10+ Lorazepam (Lorazepam 2 Mg/1 Ml Vial) 2 mg IV UD PRN; Protocol PRN Reason: EtOH Withdrawal AWSS Score 8,9 Stop: 07/27/22 03:15 Last Admin: 06/29/22 02:03 Dose: 2 mg Lorazepam (Lorazepam 2 Mg/1 Ml Vial) 1 mg IV UD PRN; Protocol PRN Reason: EtOH Withdrawal AWSS Score 6,7 Stop: 07/27/22 03:15 Lorazepam (Lorazepam 2 Mg/1 Ml Vial) 1 mg IV Q10M PRN PRN Reason: seizures Stop: 07/27/22 03:18 Magnesium Oxide (Magnesium Oxide 400 Mg Tab) 400 mg PO BID [facility] Stop: 07/31/22 08:59 Last Admin: 07/02/22 08:46 Dose: 400 mg Melatonin (Melatonin 3 Mg Tab) 3 mg PO HS PRN PRN Reason: Sleep Stop: 07/29/22 01:44 Last Admin: 06/29/22 02:03 Dose: 3 mg Miscellaneous (Carbohydrates For Hypoglycemia ) 15 - 30 gm PO UD PRN PRN Reason: Hypoglycemia Protocol Stop: 07/27/22 04:38 Miscellaneous (Remove Nicoderm Patch) 1 each N/A DAILY@0859 [facility] Stop: 07/28/22 08:58 Last Admin: 07/02/22 08:44 Dose: 1 each Multivitamins (Multivitamin Tab) 1 tab PO QAM [facility] Stop: 07/27/22 08:59 Last Admin: 07/02/22 08:47 Dose: 1 tab Nicotine (Nicotine 14 Mg/24 Hr Patch) 14 mg TD QAM [facility] Stop: 07/27/22 05:49 Last Admin: 07/02/22 08:47 Dose: 14 mg Thiamine HCl (Thiamine Hcl 100 Mg Tab) 100 mg PO DAILY [facility] Stop: 08/01/22 08:59 Last Admin: 07/02/22 08:47 Dose: 100 mg Trazodone HCl (Trazodone Hcl 50 Mg Tab) 50 mg PO HS PRN PRN Reason: insomnia Stop: 07/29/22 20:59 Last Admin: 07/01/22 20:02 Dose: 50 mg (3) HTN (hypertension) Hypertension type: primary hypertension Qualified Code(s): I10 - Essential (primary) hypertension
[2022-07-02] MEDS: INSULIN ASPART PER UNIT CHARGE SC SCH ×4 (09:27→20:01)
[2022-07-02] MEDS: BUPRENORPHINE/NALOXONE 8/2 MG TAB SL SCH ×2 (09:55→20:08)
[2022-07-02] MEDS: traZODone HCL 50 MG TAB PO PRN (20:08)
[2022-07-03] MEDS: hydrALAZINE HCL 20 MG/ML VIAL IV PRN (04:07)
[2022-07-03 07:21] LABS: Hematocrit (blood only) 27.5 % (42.0-52.0); Hemoglobin 9.1 g/dl (14.0-18.0); Mean Corpuscular Hemoglobin 30.5 pg (25.0-34.0); Mean Corpuscular Hgb Conc 33.1 g/dL (32.0-36.0); Mean Corpuscular Volume 92.3 fL (80.0-100.0); Mean Platelet Volume 9.8 fL (9.4-12.4); Platelet Count 155 K/uL (130-400); RDW Coefficient of Variation 13.2 % (11.5-14.5); RDW Standard Deviation 44.6 fL (36.4-46.3); Red Blood Count 2.98 M/uL (4.70-6.10); White Blood Count 4.81 K/ul (4.8-10.8)
[2022-07-03 07:38] LABS: BUN Creatinine Ratio 16.8 (10-20); Calcium 8.1 mg/dl (8.6-10.3); Creatinine Clr Calc Pharmacy 64.4 ml/min; Est GFR (African American) 53.8 ml/min; Est GFR (Non-African American) 46.4 ml/min; Magnesium 1.7 mg/dl (1.7-2.4); Phosphorus 3.5 mg/dl (2.5-4.9); Potassium 4.5 mmol/L (3.5-5.1)
[2022-07-03] MEDS: BUPRENORPHINE/NALOXONE 8/2 MG TAB SL SCH ×2 (08:50→20:12)
[2022-07-03] MEDS: ASPIRIN 81 MG CHEW PO SCH (08:52)
[2022-07-03] MEDS: amLODIPine BESYLATE 5 MG TAB PO SCH ×2 (08:52→20:13)
[2022-07-03] MEDS: carvediloL 12.5 MG TAB PO SCH ×2 (08:52→17:53)
[2022-07-03] MEDS: FOLIC ACID 1 MG TAB PO SCH (08:53)
[2022-07-03] MEDS: ATORVASTATIN 40 MG TAB PO SCH (08:53)
[2022-07-03] MEDS: ENOXAPARIN INJ 40 MG/0.4 ML SYR SQ SCH (08:53)
[2022-07-03] MEDS: NICOTINE 14 MG/24 HR PATCH TD SCH (08:54)
[2022-07-03] MEDS: MAGNESIUM OXIDE 400 MG TAB PO SCH ×2 (08:54→20:13)
[2022-07-03] MEDS: THIAMINE HCL 100 MG TAB PO SCH (08:54)
[2022-07-03] MEDS: MULTIVITAMIN TAB PO SCH (08:54)
[2022-07-03] MEDS: INSULIN ASPART PER UNIT CHARGE SC SCH ×4 (09:15→20:21)
[2022-07-03] MEDS ORDERED: FUROSEMIDE 40 MG TAB PO ONE (09:39)
--- NOTE | 2022-07-03 09:42 | Hospitalist Progress Note ---
Date of Service July 03, 2022 Assessment & Plan (1) Encephalopathy: (2) Diabetes mellitus type 2 with complications: (3) HTN (hypertension): Plan 57-year-old male with alcohol abuse brought to ED for confusion Acute metabolic encephalopathy-likely related to his alcohol abuse/withdrawal as well as hypertensive crisis. Urine drug screen negative, alcohol level negative. COVID-19 negative. TSH normal, procal negative, no leukocytosis, no source of infection identified. Patient looks stable and nontoxic. Blood cultures negative at 48 hours. Alcohol abuse with withdrawal/history of recurrent alcohol withdrawal seizures- continue alcohol withdrawal protocol, gabapentin taper, thiamine, folate, multivitamin, Ativan as needed. Patient does not want to go to inpatient alcohol rehab at discharge. ONDINA on CKD3b- peaked Cr 2.9 -> down to 2.6.-> 2 -> 1.8 -> 1.6 Avoid nephrotoxics. Monitor Cr. Nephrology consulted. Held diuretics. Re-introduced lasix today but at smaller dose than his home dose. Hyponatremia-likely related to beer potomania and decreased solute intake. Serum osmolality 271, urine osmole 305, urine sodium 16. Sodium improved to 133 ->137 ->136 -> 135 Correcting appropriately. Nephrology following. Hypokalemia-resolved with repletion Hypomagnesemia- replete and monitor Diarrhea-with incontinence. No blood. + Norovirus. Resolved Elevated troponin-likely demand ischemia related to his acute medical condition. Troponin trend reviewed. No chest pain. Diabetes mellitus type 2 on insulin-states he has run out of insulin and is requesting for refill at discharge. However he is requiring very less insulin and had hypoglycemic episode despite adequate oral intake. cont sliding scale. [place] as indicated. Glycemic pharmacy consulted. Per outpt records pt was on glipizide and jardiance. Essential hypertension-hypertensive crisis on admission then BP improved. Now BP again elevated, diuretics on hold d/t ondina. On carvedilol, amlodipine - dose increased - discussed w/ nephrology. Prn hydralazine ordered Chronic pain-takes sublingual Suboxone as needed at home. Tobacco abuse -smokes 2 packs a day. Recommended cutting down. Continue with nicotine patch DVT prophylaxis-Lovenox subcu Disposition-pending medical stability. On alcohol withdrawal protocol, hyponatremia being corrected and monitored. ONDINA. Admission and Anticipated Discharge Date Admission Date: June 27, 2022 Subjective Patient seen in follow up of alcohol withdrawal / ? seizure at home, hyponatremia, ondina on ckd, + norovirus Sitting up in bed in NAD Currently no fevers chills chest pain shortness of breath, no abdominal pain. Had episode of diarrhea/incontinence on admission, but since then normal formed stools. Stool positive for norovirus His tremors and withdrawal symptoms have diminished. Overall feels well. Can't tell me where he lives - will involve CM for DC needs ONDINA on ckd - nephrology consulted Cr improved BP elevated - coreg, amlodipine increased Re-introduced lasix today at smaller then home dose, cont. to monitor BMP Review of Systems Review of Systems: All systems reviewed & are unremarkable except as noted in Subjective Physical Exam Physical Exam: General: obese M, not in distress, on room air HEENT: EOMI, AYDEE, MMM Chest: Clear breath sounds bilaterally, no wheezes or crackles CVS: Regular rate and rhythm, normal heart sounds, no murmur Abdomen: Soft, non tender, not distended, normal bowel sounds Neuro: Awake, alert, oriented, conversing well, speech fluent, moves extremities Extremities: Hand Tremors much improved. Moves extremities. Minimal LE edema Results & Data Results & Data Vital Signs (Past 12 Hours) Vital Signs Temp Pulse Pulse Pulse Resp BP Pulse Ox 07/03/22 08:16 36.8 C 80 18 167/87 H 96 07/03/22 04:03 36.6 C 75 17 179/89 H 96 07/03/22 00:08 70 07/02/22 22:57 37.1 C 77 18 183/94 H 95 O2 Del Method 07/03/22 08:16 Room Air 07/03/22 04:03 Room Air 07/03/22 00:08 07/02/22 22:57 Room Air Laboratory Results 07/03/22 07/03/22 07/03/22 Range/Units 07:48 06:58 06:58 WBC 4.81 (4.8-10.8) K/ul RBC 2.98 L (4.70-6.10) M/uL Hgb 9.1 L (14.0-18.0) g/dl Hct 27.5 L (42.0-52.0) % MCV 92.3 (80.0-100.0) fL MCH 30.5 (25.0-34.0) pg MCHC 33.1 (32.0-36.0) g/dL RDW Std Deviation 44.6 (36.4-46.3) fL RDW Coeff of Alberto 13.2 (11.5-14.5) % Plt Count 155 (130-400) K/uL MPV 9.8 (9.4-12.4) fL Sodium 136 (136-145) mmol/L Potassium 4.5 (3.5-5.1) mmol/L Chloride 105 (98-107) mmol/L Carbon Dioxide 26 (21-32) mmol/L Anion Gap 5 (3-11) BUN 27 H (6-23) mg/dl Creatinine 1.61 H (0.6-1.4) mg/dl Est Cr Clr Drug Dosing 64.4 ml/min Est GFR ( Amer) 53.8 ml/min Est GFR (Non-Af Amer) 46.4 ml/min BUN/Creatinine Ratio 16.8 (10-20) Glucose 120 H (70-99(Fasting)) mg/dl POC Glucose 122 H (70-99) mg/dl Calcium 8.1 L (8.6-10.3) mg/dl Phosphorus 3.5 (2.5-4.9) mg/dl Magnesium 1.7 (1.7-2.4) mg/dl 07/02/22 07/02/22 07/02/22 Range/Units 19:57 15:58 11:18 WBC (4.8-10.8) K/ul RBC (4.70-6.10) M/uL Hgb (14.0-18.0) g/dl Hct (42.0-52.0) % MCV (80.0-100.0) fL MCH (25.0-34.0) pg MCHC (32.0-36.0) g/dL RDW Std Deviation (36.4-46.3) fL RDW Coeff of Alberto (11.5-14.5) % Plt Count (130-400) K/uL MPV (9.4-12.4) fL Sodium (136-145) mmol/L Potassium (3.5-5.1) mmol/L Chloride (98-107) mmol/L Carbon Dioxide (21-32) mmol/L Anion Gap (3-11) BUN (6-23) mg/dl Creatinine (0.6-1.4) mg/dl Est Cr Clr Drug Dosing ml/min Est GFR ( Amer) ml/min Est GFR (Non-Af Amer) ml/min BUN/Creatinine Ratio (10-20) Glucose (70-99(Fasting)) mg/dl POC Glucose 175 H 143 H 182 H (70-99) mg/dl Calcium (8.6-10.3) mg/dl Phosphorus (2.5-4.9) mg/dl Magnesium (1.7-2.4) mg/dl Medications Administered Current Inpatient Medications Acetaminophen (Acetaminophen 325 Mg Tab) 650 mg PO Q4H PRN PRN Reason: Pain or Fever Stop: 07/27/22 04:38 Last Admin: 07/01/22 20:02 Dose: 650 mg Amlodipine Besylate (Amlodipine Besylate 5 Mg Tab) 5 mg PO BID [facility] Stop: 07/31/22 20:59 Last Admin: 07/03/22 08:52 Dose: 5 mg Aspirin (Aspirin 81 Mg Chew) 81 mg PO DAILY [facility] Stop: 07/27/22 08:59 Last Admin: 07/03/22 08:52 Dose: 81 mg Atorvastatin Calcium (Atorvastatin 40 Mg Tab) 80 mg PO QAM [facility] Stop: 07/27/22 08:59 Last Admin: 07/03/22 08:53 Dose: 80 mg Buprenorphine/Naloxone (Buprenorphine/Naloxone 8/2 Mg Tab) 1 tab SL BID [facility] Stop: 07/27/22 08:59 Last Admin: 07/03/22 08:50 Dose: 1 tab Carvedilol (Carvedilol 12.5 Mg Tab) 12.5 mg PO BIDM [facility] Stop: 07/31/22 16:59 Last Admin: 07/03/22 08:52 Dose: 12.5 mg Dextrose (Dextrose 50% 50 Ml Syringe) 25 - 50 ml IV UD PRN; Protocol PRN Reason: Hypoglycemia Protocol Stop: 07/27/22 04:38 Enoxaparin Sodium (Enoxaparin Inj 40 Mg/0.4 Ml Syr) 40 mg SQ QAM [facility] Stop: 07/27/22 08:59 Last Admin: 07/03/22 08:53 Dose: 40 mg Folic Acid (Folic Acid 1 Mg Tab) 1 mg PO QAM [facility] Stop: 07/27/22 08:59 Last Admin: 07/03/22 08:53 Dose: 1 mg Glucagon (Glucagon For Inj 1 Mg Vial) 1 mg SQ UD PRN; Protocol PRN Reason: Hypoglycemia Protocol Stop: 07/27/22 04:38 Glucose (Glucose 10 Tab/Tube) 4 - 8 tab PO UD PRN; Protocol PRN Reason: Hypoglycemia Treatment Stop: 07/27/22 04:38 Glucose (Glucose 40% Gel 15 Gm Tube) 15 - 30 gm PO UD PRN; Protocol PRN Reason: Hypoglycemia Protocol Stop: 07/27/22 04:38 Hydralazine HCl (Hydralazine Hcl 20 Mg/Ml Vial) 5 mg IV Q6H PRN PRN Reason: SBP> 175 Stop: 07/30/22 16:26 Last Admin: 07/03/22 04:07 Dose: 5 mg Promethazine HCl 12.5 mg/ (Sodium Chloride) 50.5 mls @ 202 mls/hr IV Q6H PRN PRN Reason: Nausea And Vomiting Stop: 07/27/22 03:15 Insulin Aspart (Insulin Aspart Per Unit Charge) 0 units SC [facility] Stop: 07/27/22 04:38 Last Admin: 07/03/22 09:15 Dose: 2 units Lorazepam (Lorazepam 2 Mg/1 Ml Vial) 3 mg IV ONCE PRN; Protocol PRN Reason: EtOH Withdrawal AWSS Score 10+ Lorazepam (Lorazepam 2 Mg/1 Ml Vial) 2 mg IV UD PRN; Protocol PRN Reason: EtOH Withdrawal AWSS Score 8,9 Stop: 07/27/22 03:15 Last Admin: 06/29/22 02:03 Dose: 2 mg Lorazepam (Lorazepam 2 Mg/1 Ml Vial) 1 mg IV UD PRN; Protocol PRN Reason: EtOH Withdrawal AWSS Score 6,7 Stop: 07/27/22 03:15 Lorazepam (Lorazepam 2 Mg/1 Ml Vial) 1 mg IV Q10M PRN PRN Reason: seizures Stop: 07/27/22 03:18 Magnesium Oxide (Magnesium Oxide 400 Mg Tab) 400 mg PO BID [facility] Stop: 07/31/22 08:59 Last Admin: 07/03/22 08:54 Dose: 400 mg Melatonin (Melatonin 3 Mg Tab) 3 mg PO HS PRN PRN Reason: Sleep Stop: 07/29/22 01:44 Last Admin: 06/29/22 02:03 Dose: 3 mg Miscellaneous (Carbohydrates For Hypoglycemia ) 15 - 30 gm PO UD PRN PRN Reason: Hypoglycemia Protocol Stop: 07/27/22 04:38 Miscellaneous (Remove Nicoderm Patch) 1 each N/A DAILY@0859 [facility] Stop: 07/28/22 08:58 Last Admin: 07/03/22 08:52 Dose: 1 each Multivitamins (Multivitamin Tab) 1 tab PO QAM [facility] Stop: 07/27/22 08:59 Last Admin: 07/03/22 08:54 Dose: 1 tab Nicotine (Nicotine 14 Mg/24 Hr Patch) 14 mg TD QAM [facility] Stop: 07/27/22 05:49 Last Admin: 07/03/22 08:54 Dose: 14 mg Thiamine HCl (Thiamine Hcl 100 Mg Tab) 100 mg PO DAILY [facility] Stop: 08/01/22 08:59 Last Admin: 07/03/22 08:54 Dose: 100 mg Trazodone HCl (Trazodone Hcl 50 Mg Tab) 50 mg PO HS PRN PRN Reason: insomnia Stop: 07/29/22 20:59 Last Admin: 07/02/22 20:08 Dose: 50 mg (3) HTN (hypertension) Hypertension type: primary hypertension Qualified Code(s): I10 - Essential (primary) hypertension
--- NOTE | 2022-07-03 15:17 | Nephrology Progress Note ---
Date of Service July 03, 2022 Assessment & Plan Admission and Anticipated Discharge Date Admission Date: June 27, 2022 Subjective Subjective S---Feels fine. Making good urine without any lasix or iv fluid. BP is starting to get high again. PHYSICAL EXAMINATION: GENERAL: A middle-aged white male who is awake and alert and oriented; however, he does not recall what happened prior to hospitalization. HEENT: Mucous membrane is moist. NECK: Supple. No jugular venous distention. VITAL SIGNS: Blood pressure is 158/90, pulse rate 78, temperature 36.9, 93% on room air. CHEST: Bilaterally clear to auscultation. Poor inspiratory effort. CARDIOVASCULAR: S1 and S2, regular. ABDOMEN: Soft, nontender. EXTREMITIES: Show trace edema. LABORATORY TESTS:His baseline creatinine is very hard to pinpoint; however, just few days ago, he had a creatinine of 1.3, which is as good as it gets, and we will call that as baseline. It peaked at 2.89 and now is trending down. creat 1.6 today IMAGING DATA: Chest x-ray done on admission showed no acute process. ASSESSMENT AND PLAN: A 57-year-old male with multiple medical problems, admitted after he was witnessed to have seizure. I have been consulted for acute renal failure. Acute renal failure: The patient has very hard to pinpoint baseline, but just few days ago, he had a creatinine of 1.3, which would be called as baseline at this point. He has had many, many episodes of distinct acute renal failure in the past, some of which were almost needing dialysis. At this point, the patient appears fairly euvolemic. He is eating and drinking normally and we do not need to give him any IV fluids, but I would continue to hold the Lasix for the time being. Do not give him MEAGAN or ARB. His creatinine peaked at 2.89, . He is also making good amount of urine, which is again a sign of good prognosis. Hopefully, his kidneys will start to get better from here. Most likely etiology of the sudden rise in the creatinine could be extremely high blood pressure on admission and then subsequent drop in the blood pressure in a very short period of time. He is very susceptible to acute renal failure and almost every admissions in the past he has had acute renal failure at some point. Rec: 1 Continue to hold the Lasix, metformin, NSAIDs, MEAGAN, ARB, contrast agent.Creat is trending down towards baseline. 2 Daily labs. I and O 3 BP is now starting to get high but will go very slow this time. last time went into ARF when BP dropped Suddenly. 4 Cannot use HCTZ given his tendency of low na . 5 may have to use regular Lasix soon. He got one dose already today earlier. Results & Data Vital Signs (Past 12 Hours) Vital Signs Temp Pulse Pulse Resp BP Pulse Ox O2 Del Method 07/03/22 12:00 36.8 C 72 18 156/77 H 95 Room Air 07/03/22 08:16 36.8 C 80 18 167/87 H 96 Room Air 07/03/22 04:03 36.6 C 75 17 179/89 H 96 Room Air
[2022-07-03] MEDS: traZODone HCL 50 MG TAB PO PRN (20:12)
--- NOTE | 2022-07-04 08:32 | Hospitalist Progress Note ---
Date of Service July 04, 2022 Assessment & Plan (1) Encephalopathy: (2) Diabetes mellitus type 2 with complications: (3) HTN (hypertension): Plan 57-year-old male with alcohol abuse brought to ED for confusion Acute metabolic encephalopathy-likely related to his alcohol abuse/withdrawal as well as hypertensive crisis. Urine drug screen negative, alcohol level negative. COVID-19 negative. TSH normal, procal negative, no leukocytosis, no source of infection identified. Patient looks stable and nontoxic. Blood cultures negative at 48 hours. Alcohol abuse with withdrawal/history of recurrent alcohol withdrawal seizures- continue alcohol withdrawal protocol, gabapentin taper, thiamine, folate, multivitamin, Ativan as needed. Patient does not want to go to inpatient alcohol rehab at discharge. ONDINA on CKD3b- peaked Cr 2.9 -> down to 2.6.-> 2 -> 1.8 -> 1.6 -> 1.9 (Cr increased after one dose of lasix 40 mg po- discussed this w/ nephrology) Avoid nephrotoxics. Monitor Cr. Nephrology consulted. Held diuretics. Hyponatremia-likely related to beer potomania and decreased solute intake. Serum osmolality 271, urine osmole 305, urine sodium 16. Sodium improved to 133 ->137 ->136 -> 135 Correcting appropriately. Nephrology following. Hypokalemia-resolved with repletion Hypomagnesemia- replete and monitor Diarrhea-with incontinence. No blood. + Norovirus. Resolved Elevated troponin-likely demand ischemia related to his acute medical condition. Troponin trend reviewed. No chest pain. Diabetes mellitus type 2 on insulin-states he has run out of insulin and is requesting for refill at discharge. However he is requiring very less insulin and had hypoglycemic episode despite adequate oral intake. cont sliding scale. I nstitute as indicated. Glycemic pharmacy consulted. Per outpt records pt was on glipizide and jardiance. Essential hypertension-hypertensive crisis on admission then BP improved. Then BP again elevated, diuretics on hold d/t ondina. On carvedilol, amlodipine - dose increased - discussed w/ nephrology. BP better controlled. Prn hydralazine ordered Chronic pain-takes sublingual Suboxone as needed at home. Tobacco abuse -smokes 2 packs a day. Recommended cutting down. Continue with nicotine patch DVT prophylaxis-Lovenox subcu Disposition-pending medical stability. Admission and Anticipated Discharge Date Admission Date: June 27, 2022 Subjective Patient seen in follow up of alcohol withdrawal / ? seizure at home, hyponatremia, ondina on ckd, + norovirus Sitting up in bed in NAD Currently no fevers chills chest pain shortness of breath, no abdominal pain. Had episode of diarrhea/incontinence on admission, but since then normal formed stools. Stool positive for norovirus His tremors and withdrawal symptoms have diminished. Overall feels well. ONDINA on ckd - nephrology consulted Cr up 1.9 from yesterday after one dose of lasix - discussed w/ nephrology BP elevated - coreg, amlodipine increased Review of Systems Review of Systems: All systems reviewed & are unremarkable except as noted in Subjective Physical Exam Physical Exam: General: obese M, not in distress, on room air HEENT: EOMI, AYDEE, MMM Chest: Clear breath sounds bilaterally, no wheezes or crackles CVS: Regular rate and rhythm, normal heart sounds, no murmur Abdomen: Soft, non tender, not distended, normal bowel sounds Neuro: Awake, alert, oriented, conversing well, speech fluent, moves extremities Extremities: Hand Tremors much improved. Moves extremities. Minimal LE edema Results & Data Results & Data Vital Signs (Past 12 Hours) Vital Signs Temp Pulse Pulse Resp BP Pulse Ox O2 Del Method 07/04/22 08:03 37.1 C 71 18 146/79 H 96 Room Air 07/04/22 03:00 36.9 C 77 21 172/85 H 94 Room Air 07/03/22 23:00 36.5 C 75 19 171/84 H 95 Room Air 07/03/22 23:35 77 Laboratory Results 07/04/22 07/04/22 07/03/22 Range/Units 07:33 07:10 20:17 Sodium 135 L (136-145) mmol/L Potassium 4.5 (3.5-5.1) mmol/L Chloride 105 (98-107) mmol/L Carbon Dioxide 27 (21-32) mmol/L Anion Gap 3 (3-11) BUN 31 H (6-23) mg/dl Creatinine 1.94 H D (0.6-1.4) mg/dl Est Cr Clr Drug Dosing 52.5 ml/min Est GFR ( Amer) 43.0 ml/min Est GFR (Non-Af Amer) 37.1 ml/min BUN/Creatinine Ratio 16.0 (10-20) Glucose 181 H (70-99(Fasting)) mg/dl POC Glucose 220 H 179 H (70-99) mg/dl Calcium 8.2 L (8.6-10.3) mg/dl Phosphorus 3.8 (2.5-4.9) mg/dl Magnesium 1.9 (1.7-2.4) mg/dl 07/03/22 07/03/22 Range/Units 16:29 11:38 Sodium (136-145) mmol/L Potassium (3.5-5.1) mmol/L Chloride (98-107) mmol/L Carbon Dioxide (21-32) mmol/L Anion Gap (3-11) BUN (6-23) mg/dl Creatinine (0.6-1.4) mg/dl Est Cr Clr Drug Dosing ml/min Est GFR ( Amer) ml/min Est GFR (Non-Af Amer) ml/min BUN/Creatinine Ratio (10-20) Glucose (70-99(Fasting)) mg/dl POC Glucose 211 H 169 H (70-99) mg/dl Calcium (8.6-10.3) mg/dl Phosphorus (2.5-4.9) mg/dl Magnesium (1.7-2.4) mg/dl Medications Administered Current Inpatient Medications Acetaminophen (Acetaminophen 325 Mg Tab) 650 mg PO Q4H PRN PRN Reason: Pain or Fever Stop: 07/27/22 04:38 Last Admin: 07/01/22 20:02 Dose: 650 mg Amlodipine Besylate (Amlodipine Besylate 5 Mg Tab) 5 mg PO BID [facility] Stop: 07/31/22 20:59 Last Admin: 07/03/22 20:13 Dose: 5 mg Aspirin (Aspirin 81 Mg Chew) 81 mg PO DAILY [facility] Stop: 07/27/22 08:59 Last Admin: 07/03/22 08:52 Dose: 81 mg Atorvastatin Calcium (Atorvastatin 40 Mg Tab) 80 mg PO QAM [facility] Stop: 07/27/22 08:59 Last Admin: 07/03/22 08:53 Dose: 80 mg Buprenorphine/Naloxone (Buprenorphine/Naloxone 8/2 Mg Tab) 1 tab SL BID [facility] Stop: 07/27/22 08:59 Last Admin: 07/03/22 20:12 Dose: 1 tab Carvedilol (Carvedilol 12.5 Mg Tab) 12.5 mg PO BIDM [facility] Stop: 07/31/22 16:59 Last Admin: 07/03/22 17:53 Dose: 12.5 mg Dextrose (Dextrose 50% 50 Ml Syringe) 25 - 50 ml IV UD PRN; Protocol PRN Reason: Hypoglycemia Protocol Stop: 07/27/22 04:38 Enoxaparin Sodium (Enoxaparin Inj 40 Mg/0.4 Ml Syr) 40 mg SQ QAM [facility] Stop: 07/27/22 08:59 Last Admin: 07/03/22 08:53 Dose: 40 mg Folic Acid (Folic Acid 1 Mg Tab) 1 mg PO QAM [facility] Stop: 07/27/22 08:59 Last Admin: 07/03/22 08:53 Dose: 1 mg Glucagon (Glucagon For Inj 1 Mg Vial) 1 mg SQ UD PRN; Protocol PRN Reason: Hypoglycemia Protocol Stop: 07/27/22 04:38 Glucose (Glucose 10 Tab/Tube) 4 - 8 tab PO UD PRN; Protocol PRN Reason: Hypoglycemia Treatment Stop: 07/27/22 04:38 Glucose (Glucose 40% Gel 15 Gm Tube) 15 - 30 gm PO UD PRN; Protocol PRN Reason: Hypoglycemia Protocol Stop: 07/27/22 04:38 Hydralazine HCl (Hydralazine Hcl 20 Mg/Ml Vial) 5 mg IV Q6H PRN PRN Reason: SBP> 175 Stop: 07/30/22 16:26 Last Admin: 07/03/22 04:07 Dose: 5 mg Promethazine HCl 12.5 mg/ (Sodium Chloride) 50.5 mls @ 202 mls/hr IV Q6H PRN PRN Reason: Nausea And Vomiting Stop: 07/27/22 03:15 Insulin Aspart (Insulin Aspart Per Unit Charge) 0 units SC ACHS [facility] Stop: 07/27/22 04:38 Last Admin: 07/03/22 20:21 Dose: 1 units Lorazepam (Lorazepam 2 Mg/1 Ml Vial) 3 mg IV ONCE PRN; Protocol PRN Reason: EtOH Withdrawal AWSS Score 10+ Lorazepam (Lorazepam 2 Mg/1 Ml Vial) 2 mg IV UD PRN; Protocol PRN Reason: EtOH Withdrawal AWSS Score 8,9 Stop: 07/27/22 03:15 Last Admin: 06/29/22 02:03 Dose: 2 mg Lorazepam (Lorazepam 2 Mg/1 Ml Vial) 1 mg IV UD PRN; Protocol PRN Reason: EtOH Withdrawal AWSS Score 6,7 Stop: 07/27/22 03:15 Lorazepam (Lorazepam 2 Mg/1 Ml Vial) 1 mg IV Q10M PRN PRN Reason: seizures Stop: 07/27/22 03:18 Magnesium Oxide (Magnesium Oxide 400 Mg Tab) 400 mg PO BID [facility] Stop: 07/31/22 08:59 Last Admin: 07/03/22 20:13 Dose: 400 mg Melatonin (Melatonin 3 Mg Tab) 3 mg PO HS PRN PRN Reason: Sleep Stop: 07/29/22 01:44 Last Admin: 06/29/22 02:03 Dose: 3 mg Miscellaneous (Carbohydrates For Hypoglycemia ) 15 - 30 gm PO UD PRN PRN Reason: Hypoglycemia Protocol Stop: 07/27/22 04:38 Miscellaneous (Remove Nicoderm Patch) 1 each N/A DAILY@0859 [facility] Stop: 07/28/22 08:58 Last Admin: 07/03/22 08:52 Dose: 1 each Multivitamins (Multivitamin Tab) 1 tab PO QAM [facility] Stop: 07/27/22 08:59 Last Admin: 07/03/22 08:54 Dose: 1 tab Nicotine (Nicotine 14 Mg/24 Hr Patch) 14 mg TD QAM [facility] Stop: 07/27/22 05:49 Last Admin: 07/03/22 08:54 Dose: 14 mg Thiamine HCl (Thiamine Hcl 100 Mg Tab) 100 mg PO DAILY [facility] Stop: 08/01/22 08:59 Last Admin: 07/03/22 08:54 Dose: 100 mg Trazodone HCl (Trazodone Hcl 50 Mg Tab) 50 mg PO HS PRN PRN Reason: insomnia Stop: 07/29/22 20:59 Last Admin: 07/03/22 20:12 Dose: 50 mg (3) HTN (hypertension) Hypertension type: primary hypertension Qualified Code(s): I10 - Essential (primary) hypertension
[2022-07-04] MEDS: carvediloL 12.5 MG TAB PO SCH ×2 (08:56→16:57)
[2022-07-04] MEDS: ATORVASTATIN 40 MG TAB PO SCH (08:57)
[2022-07-04] MEDS: BUPRENORPHINE/NALOXONE 8/2 MG TAB SL SCH ×2 (08:57→22:12)
[2022-07-04] MEDS: amLODIPine BESYLATE 5 MG TAB PO SCH ×2 (08:57→22:13)
[2022-07-04] MEDS: ENOXAPARIN INJ 40 MG/0.4 ML SYR SQ SCH (08:57)
[2022-07-04] MEDS: ASPIRIN 81 MG CHEW PO SCH (08:57)
[2022-07-04] MEDS: MULTIVITAMIN TAB PO SCH (08:58)
[2022-07-04] MEDS: NICOTINE 14 MG/24 HR PATCH TD SCH (08:58)
[2022-07-04] MEDS: MAGNESIUM OXIDE 400 MG TAB PO SCH ×2 (08:58→22:13)
[2022-07-04] MEDS: FOLIC ACID 1 MG TAB PO SCH (08:58)
[2022-07-04] MEDS: THIAMINE HCL 100 MG TAB PO SCH (08:59)
[2022-07-04] MEDS: INSULIN ASPART PER UNIT CHARGE SC SCH ×4 (09:29→22:12)
[2022-07-04 10:07] LABS: Calcium 8.2 mg/dl (8.6-10.3); Creatinine Clr Calc Pharmacy 52.5 ml/min; Est GFR (Non-African American) 37.1 ml/min; Magnesium 1.9 mg/dl (1.7-2.4); Phosphorus 3.8 mg/dl (2.5-4.9); Potassium 4.5 mmol/L (3.5-5.1)
--- NOTE | 2022-07-04 11:38 | Nephrology Progress Note ---
Date of Service July 04, 2022 Assessment & Plan (1) Acute kidney injury: Plan: very hard to pinpoint baseline, but just few days ago, he had a creatinine of 1.3 (though this w/o his customary meds on board); would call his acceptable baseline more in the 1.7-1.8 creatinine range. He has had many, many episodes of distinct acute renal failure in the past, some of which were almost needing dialysis. At this point, the patient remains euvolemic. He is eating and drinking normally and we do not need to give him any IV fluids, but I would continue to hold the Lasix for the time being unless he is acutely dyspneic. Do not give him MEAGAN or ARB. His creatinine peaked at 2.89, Most likely etiology of the sudden rise in the creatinine could be extremely high blood pressure on admission and then subsequent drop in the blood pressure in a very short period of time. He is very susceptible to acute renal failure and almost every admissions in the past he has had acute renal failure at some point. 1 Continue to hold the Lasix, metformin, NSAIDs, MEAGAN, ARB, contrast agent.Creat is trending down towards baseline. 2 Daily labs. I and O 3 BP is now starting to get high but will go very slow this time. last time went into ARF when BP dropped Suddenly. 4 Cannot use HCTZ given his tendency of low na . 5 may have to use regular Lasix soon but for now would continue to observe Admission and Anticipated Discharge Date Admission Date: June 27, 2022 Subjective no acute interval events clinically. had one dose of lasix yesterday pm Review of Systems Review of Systems: All systems reviewed & are unremarkable except as noted in Subjective Physical Exam Constitutional: well developed and well nourished Eyes: EOM intact bilaterally ENMT: Ears: no external ear abnormality Nose: no external nose abnormality Mouth: + dry oral mucous membranes Neck: no nuchal rigidity Respiratory: normal respiratory effort Auscultation: + diminished lung sounds Gastrointestinal (Abdomen): Inspection/Auscultation: normal bowel sounds Percussion/Palpation: abdomen soft; abdomen nontender Musculoskeletal: Extremities: strength 5/5 throughout Skin: no rashes, warm and dry Neurologic: maza, fluent speech, no tremor Results & Data Vital Signs (Past 12 Hours) Vital Signs Temp Pulse Pulse Resp BP Pulse Ox O2 Del Method 07/04/22 07:34 84 07/04/22 08:03 37.1 C 71 18 146/79 H 96 Room Air 07/04/22 03:00 36.9 C 77 21 172/85 H 94 Room Air 07/03/22 23:35 77 Laboratory Results 07/03/22 06:58 07/04/22 07:10
[2022-07-04] MEDS: traZODone HCL 50 MG TAB PO PRN (22:11)
[2022-07-04] MEDS: MELATONIN 3 MG TAB PO PRN (22:11)
[2022-07-05 07:05] LABS: BUN Creatinine Ratio 16.4 (10-20); Calcium 8.1 mg/dl (8.6-10.3); Creatinine Clr Calc Pharmacy 51.3 ml/min; Est GFR (African American) 41.2 ml/min; Est GFR (Non-African American) 35.5 ml/min; Magnesium 1.9 mg/dl (1.7-2.4); Potassium 4.4 mmol/L (3.5-5.1)
[2022-07-05] MEDS: INSULIN ASPART PER UNIT CHARGE SC SCH ×4 (08:03→20:45)
[2022-07-05] MEDS: BUPRENORPHINE/NALOXONE 8/2 MG TAB SL SCH ×2 (08:05→20:54)
[2022-07-05] MEDS: amLODIPine BESYLATE 5 MG TAB PO SCH ×2 (08:05→20:54)
[2022-07-05] MEDS: MAGNESIUM OXIDE 400 MG TAB PO SCH ×2 (08:05→20:54)
[2022-07-05] MEDS: THIAMINE HCL 100 MG TAB PO SCH (08:06)
[2022-07-05] MEDS: ASPIRIN 81 MG ECTAB PO SCH (08:06)
[2022-07-05] MEDS: carvediloL 12.5 MG TAB PO SCH ×2 (08:06→17:24)
[2022-07-05] MEDS: NICOTINE 14 MG/24 HR PATCH TD SCH (08:06)
[2022-07-05] MEDS: ATORVASTATIN 40 MG TAB PO SCH (08:06)
[2022-07-05] MEDS: MULTIVITAMIN TAB PO SCH (08:07)
[2022-07-05] MEDS: ENOXAPARIN INJ 40 MG/0.4 ML SYR SQ SCH (08:07)
[2022-07-05] MEDS: FOLIC ACID 1 MG TAB PO SCH (08:07)
--- NOTE | 2022-07-05 11:22 | Nephrology Progress Note ---
Date of Service July 05, 2022 Assessment & Plan (1) Acute kidney injury: Plan: very hard to pinpoint baseline, but just few days ago, he had a creatinine of 1.3 (though likely w/o his customary meds on board); would call his acceptable baseline more in the 1.7-2.0 creatinine range, but really we do not know what his baseline is and would observe/establish baseline ideally with acceptable blood pressure control concurrently. His renal function is extremely labile depending on clinical circumstances he has had many, many episodes of acute renal failure in the past, some of which were almost to the point of needing dialysis. At this point, the patient remains euvolemic. He is eating and drinking normally and we do not need to give him any IV fluids, but I would continue to hold the Lasix for the time being unless he is acutely dyspneic. Do not give him MEAGAN or ARB. His creatinine peaked at 2.89, Most likely etiology of the sudden rise in the creatinine could be extremely high blood pressure on admission and then subsequent drop in the blood pressure in a very short period of time. He is very susceptible to acute renal failure and almost every admissions in the past he has had acute renal failure at some point. Creatinine plateaued in the high ones; blood pressure lability has been stabilized past 72 hours 1 Continue to hold the Lasix, jardiance from prior to admission. Continue also to avoid NSAIDs, IV contrast agent. 2 Daily labs. I and O 3 Will need outpatient nephrology follow up up after discharge (2) Hypertensive urgency: Plan: His blood pressure has been maintained now for several days in the 150s to 160s systolic. Systolic blood pressure is stable essentially for the last 48 hours in the 140s to 160s. At this time, reasonable to work at titrating pressure down slightly to 130s to 140s systolic. Maintained currently on amlodipine 5 mg twice daily, carvedilol 12.5 mg twice daily. He has in this timeframe had 5 mg IV hydralazine x 1. -avoid thiazides d/t tendency to hyponatremia -no indication for loop diuretics today -trial of low dose lisinopril 10 mg daily starting today >consider spironolactone moving forward Admission and Anticipated Discharge Date Admission Date: June 27, 2022 Subjective no interval events; continues to feel well; no sob, no edema, no ambulatory dysfunction or n/v Review of Systems Review of Systems: All systems reviewed & are unremarkable except as noted in Subjective Physical Exam Constitutional: well developed and well nourished Eyes: EOM intact bilaterally ENMT: Ears: no external ear abnormality Nose: no external nose abnormality Mouth: + dry oral mucous membranes Neck: no nuchal rigidity Respiratory: normal respiratory effort Auscultation: + diminished lung sounds Gastrointestinal (Abdomen): Inspection/Auscultation: normal bowel sounds Percussion/Palpation: abdomen soft; abdomen nontender Musculoskeletal: Extremities: strength 5/5 throughout Skin: no rashes, warm and dry Results & Data Vital Signs (Past 12 Hours) Vital Signs Temp Pulse Pulse Resp BP Pulse Ox O2 Del Method 07/05/22 08:36 Room Air 07/05/22 08:11 36.9 C 75 18 164/81 H 95 Room Air 07/05/22 07:25 66 07/05/22 04:11 36.9 C 65 19 154/82 H 94 Room Air 07/04/22 23:20 75 153/78 H Laboratory Results 07/03/22 06:58 07/05/22 06:06
--- NOTE | 2022-07-05 12:37 | Hospitalist Progress Note ---
Date of Service July 05, 2022 Assessment & Plan (1) Encephalopathy: (2) Diabetes mellitus type 2 with complications: (3) HTN (hypertension): Plan 57-year-old male with alcohol abuse brought to ED for confusion Acute metabolic encephalopathy-likely related to his alcohol abuse/withdrawal as well as hypertensive crisis. Urine drug screen negative, alcohol level negative. COVID-19 negative. TSH normal, procal negative, no leukocytosis, no source of infection identified. Patient looks stable and nontoxic. Blood cultures negative at 48 hours. Alcohol abuse with withdrawal/history of recurrent alcohol withdrawal seizures- continue alcohol withdrawal protocol, gabapentin taper, thiamine, folate, multivitamin, Ativan as needed. Patient does not want to go to inpatient alcohol rehab at discharge. ONDINA on CKD3b- peaked Cr 2.9 -> down to -> 1.6 -> 1.9 -> 2.0 (Cr increased after one dose of lasix 40 mg po- discussed this w/ nephrology) Avoid nephrotoxics. Monitor Cr. Nephrology consulted. Held diuretics. Hyponatremia-likely related to beer potomania and decreased solute intake. Serum osmolality 271, urine osmole 305, urine sodium 16. Sodium improved to 133 ->137 ->136 -> 135 Correcting appropriately. Nephrology following. Hypokalemia-resolved with repletion Hypomagnesemia- replete and monitor Diarrhea-with incontinence. No blood. + Norovirus. Resolved Elevated troponin-likely demand ischemia related to his acute medical condition. Troponin trend reviewed. No chest pain. Diabetes mellitus type 2 on insulin-states he has run out of insulin and is requesting for refill at discharge. However he is requiring very less insulin and had hypoglycemic episode despite adequate oral intake. cont sliding scale. [place] as indicated. Glycemic pharmacy consulted. Per outpt records pt was on glipizide and jardiance. Essential hypertension-hypertensive crisis on admission then BP improved. Then BP again elevated, diuretics on hold d/t ondina. On carvedilol, amlodipine - dose increased - discussed w/ nephrology. Today started lisinopril (07/05). BP better controlled. Prn hydralazine ordered Chronic pain-takes sublingual Suboxone as needed at home. Tobacco abuse -smokes 2 packs a day. Recommended cutting down. Continue with nicotine patch DVT prophylaxis-Lovenox subcu Disposition-pending medical stability. Admission and Anticipated Discharge Date Admission Date: June 27, 2022 Subjective Patient seen in follow up of alcohol withdrawal / ? seizure at home, hyponatremia, ondina on ckd, + norovirus Sitting up in bed in NAD Currently no fevers chills chest pain shortness of breath, no abdominal pain. Had episode of diarrhea/incontinence on admission, but since then normal formed stools. Stool positive for norovirus His tremors and withdrawal symptoms have diminished. Overall feels well. ONDINA on ckd - nephrology following Cr up at 2 now BP elevated - coreg, amlodipine increased, today lisinopril started Review of Systems Review of Systems: All systems reviewed & are unremarkable except as noted in Subjective Physical Exam Physical Exam: General: obese M, not in distress, on room air HEENT: EOMI, AYDEE, MMM Chest: Clear breath sounds bilaterally, no wheezes or crackles CVS: Regular rate and rhythm, normal heart sounds, no murmur Abdomen: Soft, non tender, not distended, normal bowel sounds Neuro: Awake, alert, oriented, conversing well, speech fluent, moves extremities Extremities: Hand Tremors much improved. Moves extremities. Minimal LE edema Results & Data Results & Data Vital Signs (Past 12 Hours) Vital Signs Temp Pulse Pulse Resp BP Pulse Ox O2 Del Method 07/05/22 12:14 36.9 C 72 19 149/74 H 96 Room Air 07/05/22 08:36 Room Air 07/05/22 08:11 36.9 C 75 18 164/81 H 95 Room Air 07/05/22 07:25 66 07/05/22 04:11 36.9 C 65 19 154/82 H 94 Room Air Laboratory Results 07/05/22 07/05/22 07/05/22 Range/Units 11:36 07:43 06:06 Sodium 137 (136-145) mmol/L Potassium 4.4 (3.5-5.1) mmol/L Chloride 106 (98-107) mmol/L Carbon Dioxide 26 (21-32) mmol/L Anion Gap 5 (3-11) BUN 33 H (6-23) mg/dl Creatinine 2.01 H (0.6-1.4) mg/dl Est Cr Clr Drug Dosing 51.3 ml/min Est GFR ( Amer) 41.2 ml/min Est GFR (Non-Af Amer) 35.5 ml/min BUN/Creatinine Ratio 16.4 (10-20) Glucose 141 H (70-99(Fasting)) mg/dl POC Glucose 199 H 166 H (70-99) mg/dl Calcium 8.1 L (8.6-10.3) mg/dl Phosphorus 4.0 (2.5-4.9) mg/dl Magnesium 1.9 (1.7-2.4) mg/dl 07/04/22 07/04/22 07/04/22 Range/Units 22:00 20:28 16:43 Sodium (136-145) mmol/L Potassium (3.5-5.1) mmol/L Chloride (98-107) mmol/L Carbon Dioxide (21-32) mmol/L Anion Gap (3-11) BUN (6-23) mg/dl Creatinine (0.6-1.4) mg/dl Est Cr Clr Drug Dosing ml/min Est GFR ( Amer) ml/min Est GFR (Non-Af Amer) ml/min BUN/Creatinine Ratio (10-20) Glucose (70-99(Fasting)) mg/dl POC Glucose 177 H 244 H 145 H (70-99) mg/dl Calcium (8.6-10.3) mg/dl Phosphorus (2.5-4.9) mg/dl Magnesium (1.7-2.4) mg/dl Medications Administered Current Inpatient Medications Acetaminophen (Acetaminophen 325 Mg Tab) 650 mg PO Q4H PRN PRN Reason: Pain or Fever Stop: 07/27/22 04:38 Last Admin: 07/01/22 20:02 Dose: 650 mg Amlodipine Besylate (Amlodipine Besylate 5 Mg Tab) 5 mg PO BID [facility] Stop: 07/31/22 20:59 Last Admin: 07/05/22 08:05 Dose: 5 mg Aspirin (Aspirin 81 Mg Ectab) 81 mg PO DAILY [facility] Stop: 08/04/22 08:59 Last Admin: 07/05/22 08:06 Dose: 81 mg Atorvastatin Calcium (Atorvastatin 40 Mg Tab) 80 mg PO QAM [facility] Stop: 07/27/22 08:59 Last Admin: 07/05/22 08:06 Dose: 80 mg Buprenorphine/Naloxone (Buprenorphine/Naloxone 8/2 Mg Tab) 1 tab SL BID [facility] Stop: 07/27/22 08:59 Last Admin: 07/05/22 08:05 Dose: 1 tab Carvedilol (Carvedilol 12.5 Mg Tab) 12.5 mg PO BIDM [facility] Stop: 07/31/22 16:59 Last Admin: 07/05/22 08:06 Dose: 12.5 mg Dextrose (Dextrose 50% 50 Ml Syringe) 25 - 50 ml IV UD PRN; Protocol PRN Reason: Hypoglycemia Protocol Stop: 07/27/22 04:38 Enoxaparin Sodium (Enoxaparin Inj 40 Mg/0.4 Ml Syr) [facility] [place] Stop: 07/27/22 08:59 Last Admin: 07/05/22 08:07 Dose: 40 mg Folic Acid (Folic Acid 1 Mg Tab) [facility] [place] Stop: 07/27/22 08:59 Last Admin: 07/05/22 08:07 Dose: 1 mg Glucagon (Glucagon For Inj 1 Mg Vial) 1 mg SQ UD PRN; Protocol PRN Reason: Hypoglycemia Protocol Stop: 07/27/22 04:38 Glucose (Glucose 10 Tab/Tube) 4 - 8 tab PO UD PRN; Protocol PRN Reason: Hypoglycemia Treatment Stop: 07/27/22 04:38 Glucose (Glucose 40% Gel 15 Gm Tube) 15 - 30 gm PO UD PRN; Protocol PRN Reason: Hypoglycemia Protocol Stop: 07/27/22 04:38 Hydralazine HCl (Hydralazine Hcl 20 Mg/Ml Vial) 5 mg IV Q6H PRN PRN Reason: SBP> 175 Stop: 07/30/22 16:26 Last Admin: 07/03/22 04:07 Dose: 5 mg Promethazine HCl 12.5 mg/ (Sodium Chloride) 50.5 mls @ 202 mls/hr IV Q6H PRN PRN Reason: Nausea And Vomiting Stop: 07/27/22 03:15 Insulin Aspart (Insulin Aspart Per Unit Charge) 0 units SC ACHS [facility] Stop: 07/27/22 04:38 Last Admin: 07/05/22 11:50 Dose: 6 units Lisinopril (Lisinopril 10 Mg Tab) 10 mg PO QAM [facility] Stop: 08/04/22 11:34 Lorazepam (Lorazepam 2 Mg/1 Ml Vial) 3 mg IV ONCE PRN; Protocol PRN Reason: EtOH Withdrawal AWSS Score 10+ Lorazepam (Lorazepam 2 Mg/1 Ml Vial) 2 mg IV UD PRN; Protocol PRN Reason: EtOH Withdrawal AWSS Score 8,9 Stop: 07/27/22 03:15 Last Admin: 06/29/22 02:03 Dose: 2 mg Lorazepam (Lorazepam 2 Mg/1 Ml Vial) 1 mg IV UD PRN; Protocol PRN Reason: EtOH Withdrawal AWSS Score 6,7 Stop: 07/27/22 03:15 Lorazepam (Lorazepam 2 Mg/1 Ml Vial) 1 mg IV Q10M PRN PRN Reason: seizures Stop: 07/27/22 03:18 Magnesium Oxide (Magnesium Oxide 400 Mg Tab) 400 mg PO BID [facility] Stop: 07/31/22 08:59 Last Admin: 07/05/22 08:05 Dose: 400 mg Melatonin (Melatonin 3 Mg Tab) 3 mg PO HS PRN PRN Reason: Sleep Stop: 07/29/22 01:44 Last Admin: 07/04/22 22:11 Dose: 3 mg Miscellaneous (Carbohydrates For Hypoglycemia ) 15 - 30 gm PO UD PRN PRN Reason: Hypoglycemia Protocol Stop: 07/27/22 04:38 Miscellaneous (Remove Nicoderm Patch) 1 each N/A DAILY@0859 [facility] Stop: 07/28/22 08:58 Last Admin: 07/05/22 08:07 Dose: 1 each Multivitamins (Multivitamin Tab) 1 tab PO QAM [facility] Stop: 07/27/22 08:59 Last Admin: 07/05/22 08:07 Dose: 1 tab Nicotine (Nicotine 14 Mg/24 Hr Patch) 14 mg TD QAM [facility] Stop: 07/27/22 05:49 Last Admin: 07/05/22 08:06 Dose: 14 mg Thiamine HCl (Thiamine Hcl 100 Mg Tab) 100 mg PO DAILY [facility] Stop: 08/01/22 08:59 Last Admin: 07/05/22 08:06 Dose: 100 mg Trazodone HCl (Trazodone Hcl 50 Mg Tab) 50 mg PO HS PRN PRN Reason: insomnia Stop: 07/29/22 20:59 Last Admin: 07/04/22 22:11 Dose: 50 mg (3) HTN (hypertension) Hypertension type: primary hypertension Qualified Code(s): I10 - Essential (primary) hypertension
[2022-07-05] MEDS: lisinopril 10 MG TAB PO SCH (12:55)
[2022-07-05] MEDS: MELATONIN 3 MG TAB PO PRN (22:49)
[2022-07-05] MEDS: ACETAMINOPHEN 325 MG TAB PO PRN (22:49)
[2022-07-06 07:33] LABS: BUN Creatinine Ratio 18.3 (10-20); Calcium 8.1 mg/dl (8.6-10.3); Creatinine Clr Calc Pharmacy 55.5 ml/min; Est GFR (African American) 45.2 ml/min; Potassium 4.8 mmol/L (3.5-5.1)
[2022-07-06] MEDS: INSULIN ASPART PER UNIT CHARGE SC SCH ×2 (08:20→12:00)
[2022-07-06] MEDS: BUPRENORPHINE/NALOXONE 8/2 MG TAB SL SCH (08:21)
[2022-07-06] MEDS: ACETAMINOPHEN 325 MG TAB PO PRN (08:21)
[2022-07-06] MEDS: ENOXAPARIN INJ 40 MG/0.4 ML SYR SQ SCH (08:23)
[2022-07-06] MEDS: amLODIPine BESYLATE 5 MG TAB PO SCH (08:24)
[2022-07-06] MEDS: THIAMINE HCL 100 MG TAB PO SCH (08:24)
[2022-07-06] MEDS: FOLIC ACID 1 MG TAB PO SCH (08:24)
[2022-07-06] MEDS: MAGNESIUM OXIDE 400 MG TAB PO SCH (08:24)
[2022-07-06] MEDS: MULTIVITAMIN TAB PO SCH (08:24)
[2022-07-06] MEDS: ATORVASTATIN 40 MG TAB PO SCH (08:24)
[2022-07-06] MEDS: carvediloL 12.5 MG TAB PO SCH (08:25)
[2022-07-06] MEDS: lisinopril 10 MG TAB PO SCH (08:25)
[2022-07-06] MEDS: ASPIRIN 81 MG ECTAB PO SCH (08:25)
[2022-07-06] MEDS: NICOTINE 14 MG/24 HR PATCH TD SCH (08:25)
--- NOTE | 2022-07-06 09:45 | Hospitalist Progress Note ---
Date of Service July 06, 2022 Assessment & Plan (1) Encephalopathy: (2) Diabetes mellitus type 2 with complications: (3) HTN (hypertension): Plan 57-year-old male with alcohol abuse brought to ED for confusion Acute metabolic encephalopathy-likely related to his alcohol abuse/withdrawal as well as hypertensive crisis. Urine drug screen negative, alcohol level negative. COVID-19 negative. TSH normal, procal negative, no leukocytosis, no source of infection identified. Patient looks stable and nontoxic. Blood cultures negative. Alcohol abuse with withdrawal/history of recurrent alcohol withdrawal seizures -continue alcohol withdrawal protocol, gabapentin taper, thiamine, folate, multivitamin, Ativan as needed. Patient does not want to go to inpatient alcohol rehab at discharge. ONDINA on CKD3b- peaked Cr 2.9 -> down to -> 1.6 -> 1.9 -> 2.0 -> 1.9 Nephrology following closely regarding his ONDINA on CKD, and hypertension. Nephrology discharge recommendations Continue lisinopril 10 mg daily at discharge Continue current doses of amlodipine and carvedilol at discharge Start Lasix 40 mg every morning at hospital discharge Weekly basic metabolic panel to be ordered by nephrology nurse HOSPITAL DISCHARGE appt w/ Dr Ba Alexander in neph clinic in 2-4 wks Hyponatremia-likely related to beer potomania and decreased solute intake. Serum osmolality 271, urine osmole 305, urine sodium 16. Sodium improved to 133 ->137 ->136 -> 135 Correcting appropriately. Nephrology following. Hypokalemia-resolved with repletion Hypomagnesemia- replete and monitor Diarrhea-with incontinence. No blood. + Norovirus. Resolved Elevated troponin-likely demand ischemia related to his acute medical condition. Troponin trend reviewed. No chest pain. Diabetes mellitus type 2 on insulin-states he has run out of insulin and is requesting for refill at discharge. However he is requiring very less insulin and had hypoglycemic episode despite adequate oral intake. cont sliding scale. [place] as indicated. Glycemic pharmacy consulted. Per outpt records pt was on glipizide and jardiance. Essential hypertension-hypertensive crisis on admission then BP improved. Then BP again elevated, diuretics on hold d/t ondina. On carvedilol, amlodipine - dose increased - discussed w/ nephrology. Started lisinopril (07/05). BP better controlled. Prn hydralazine ordered Chronic pain-takes sublingual Suboxone as needed at home. Tobacco abuse -smokes 2 packs a day. Recommended cutting down. Continue with nicotine patch DVT prophylaxis-Lovenox subcu Disposition- plan to DC home Admission and Anticipated Discharge Date Admission Date: June 27, 2022 Subjective Patient seen in follow up of alcohol withdrawal / ? seizure at home, hyponatremia, ondina on ckd, + norovirus Sitting up in bed in NAD Currently no fevers chills chest pain shortness of breath, no abdominal pain. Had episode of diarrhea/incontinence on admission, but since then normal formed stools. Stool positive for norovirus His tremors and withdrawal symptoms have diminished. Overall feels well. Ambulating without difficulty. ONDINA on ckd - nephrology following BP elevated - coreg, amlodipine increased, lisinopril started yesterday, lasix to start tomorrow on DC - discussed in detail with nephrology Review of Systems Review of Systems: All systems reviewed & are unremarkable except as noted in Subjective Physical Exam Physical Exam: General: obese M, not in distress, on room air HEENT: EOMI, AYDEE, MMM Chest: Clear breath sounds bilaterally, no wheezes or crackles CVS: Regular rate and rhythm, normal heart sounds, no murmur Abdomen: Soft, non tender, not distended, normal bowel sounds Neuro: Awake, alert, oriented, conversing well, speech fluent, moves extremities Extremities: Hand Tremors much improved. Moves extremities. Minimal LE edema Results & Data Results & Data Vital Signs (Past 12 Hours) Vital Signs Temp Pulse Pulse Resp BP BP Pulse Ox 07/06/22 06:00 74 07/06/22 07:38 37.4 C 70 18 159/81 H 92 07/05/22 22:01 74 07/06/22 03:02 36.9 C 64 18 158/84 H 97 07/05/22 22:40 36.6 C 70 16 160/84 H 97 O2 Del Method 07/06/22 06:00 07/06/22 07:38 Room Air 07/05/22 22:01 07/06/22 03:02 Room Air 07/05/22 22:40 Room Air Laboratory Results 07/06/22 07/06/22 07/05/22 Range/Units 07:29 06:53 20:18 Sodium 136 (136-145) mmol/L Potassium 4.8 (3.5-5.1) mmol/L Chloride 106 (98-107) mmol/L Carbon Dioxide 25 (21-32) mmol/L Anion Gap 5 (3-11) BUN 34 H (6-23) mg/dl Creatinine 1.86 H (0.6-1.4) mg/dl Est Cr Clr Drug Dosing 55.5 ml/min Est GFR ( Amer) 45.2 ml/min Est GFR (Non-Af Amer) 39.0 ml/min BUN/Creatinine Ratio 18.3 (10-20) Glucose 126 H (70-99(Fasting)) mg/dl POC Glucose 155 H 215 H (70-99) mg/dl Calcium 8.1 L (8.6-10.3) mg/dl 07/05/22 07/05/22 Range/Units 16:47 11:36 Sodium (136-145) mmol/L Potassium (3.5-5.1) mmol/L Chloride (98-107) mmol/L Carbon Dioxide (21-32) mmol/L Anion Gap (3-11) BUN (6-23) mg/dl Creatinine (0.6-1.4) mg/dl Est Cr Clr Drug Dosing ml/min Est GFR ( Amer) ml/min Est GFR (Non-Af Amer) ml/min BUN/Creatinine Ratio (10-20) Glucose (70-99(Fasting)) mg/dl POC Glucose 114 H 199 H (70-99) mg/dl Calcium (8.6-10.3) mg/dl Medications Administered Current Inpatient Medications Acetaminophen (Acetaminophen 325 Mg Tab) 650 mg PO Q4H PRN PRN Reason: Pain or Fever Stop: 07/27/22 04:38 Last Admin: 07/06/22 08:21 Dose: 650 mg Amlodipine Besylate (Amlodipine Besylate 5 Mg Tab) 5 mg PO BID [facility] Stop: 07/31/22 20:59 Last Admin: 07/06/22 08:24 Dose: 5 mg Aspirin (Aspirin 81 Mg Ectab) 81 mg PO DAILY [facility] Stop: 08/04/22 08:59 Last Admin: 07/06/22 08:25 Dose: 81 mg Atorvastatin Calcium (Atorvastatin 40 Mg Tab) 80 mg PO QAM [facility] Stop: 07/27/22 08:59 Last Admin: 07/06/22 08:24 Dose: 80 mg Buprenorphine/Naloxone (Buprenorphine/Naloxone 8/2 Mg Tab) 1 tab SL BID [facility] Stop: 07/27/22 08:59 Last Admin: 07/06/22 08:21 Dose: 1 tab Carvedilol (Carvedilol 12.5 Mg Tab) 12.5 mg PO BIDM [facility] Stop: 07/31/22 16:59 Last Admin: 07/06/22 08:25 Dose: 12.5 mg Dextrose (Dextrose 50% 50 Ml Syringe) 25 - 50 ml IV UD PRN; Protocol PRN Reason: Hypoglycemia Protocol Stop: 07/27/22 04:38 Enoxaparin Sodium (Enoxaparin Inj 40 Mg/0.4 Ml Syr) 40 mg SQ [facility] Stop: 07/27/22 08:59 Last Admin: 07/06/22 08:23 Dose: 40 mg Folic Acid (Folic Acid 1 Mg Tab) 1 mg PO [facility] Stop: 07/27/22 08:59 Last Admin: 07/06/22 08:24 Dose: 1 mg Glucagon (Glucagon For Inj 1 Mg Vial) 1 mg SQ UD PRN; Protocol PRN Reason: Hypoglycemia Protocol Stop: 07/27/22 04:38 Glucose (Glucose 10 Tab/Tube) 4 - 8 tab PO UD PRN; Protocol PRN Reason: Hypoglycemia Treatment Stop: 07/27/22 04:38 Glucose (Glucose 40% Gel 15 Gm Tube) 15 - 30 gm PO UD PRN; Protocol PRN Reason: Hypoglycemia Protocol Stop: 07/27/22 04:38 Hydralazine HCl (Hydralazine Hcl 20 Mg/Ml Vial) 5 mg IV Q6H PRN PRN Reason: SBP> 175 Stop: 07/30/22 16:26 Last Admin: 07/03/22 04:07 Dose: 5 mg Promethazine HCl 12.5 mg/ (Sodium Chloride) 50.5 mls @ 202 mls/hr IV Q6H PRN PRN Reason: Nausea And Vomiting Stop: 07/27/22 03:15 Insulin Aspart (Insulin Aspart Per Unit Charge) 0 units SC [facility] Stop: 07/27/22 04:38 Last Admin: 07/06/22 08:20 Dose: 6 units Lisinopril (L[facility] 10 Mg Tab) [facility] Stop: 08/04/22 11:34 Last Admin: 07/06/22 08:25 Dose: 10 mg Lorazepam (Lorazepam 2 Mg/1 Ml Vial) 3 mg IV ONCE PRN; Protocol PRN Reason: EtOH Withdrawal AWSS Score 10+ Lorazepam (Lorazepam 2 Mg/1 Ml Vial) 2 mg IV UD PRN; Protocol PRN Reason: EtOH Withdrawal AWSS Score 8,9 Stop: 07/27/22 03:15 Last Admin: 06/29/22 02:03 Dose: 2 mg Lorazepam (Lorazepam 2 Mg/1 Ml Vial) 1 mg IV UD PRN; Protocol PRN Reason: EtOH Withdrawal AWSS Score 6,7 Stop: 07/27/22 03:15 Lorazepam (Lorazepam 2 Mg/1 Ml Vial) 1 mg IV Q10M PRN PRN Reason: seizures Stop: 07/27/22 03:18 Magnesium Oxide (Magnesium Oxide 400 Mg Tab) 400 mg PO BID [facility] Stop: 07/31/22 08:59 Last Admin: 07/06/22 08:24 Dose: 400 mg Melatonin (Melatonin 3 Mg Tab) 3 mg PO HS PRN PRN Reason: Sleep Stop: 07/29/22 01:44 Last Admin: 07/05/22 22:49 Dose: 3 mg Miscellaneous (Carbohydrates For Hypoglycemia ) 15 - 30 gm PO UD PRN PRN Reason: Hypoglycemia Protocol Stop: 07/27/22 04:38 Miscellaneous (Remove Nicoderm Patch) 1 each N/A DAILY@0859 [facility] Stop: 07/28/22 08:58 Last Admin: 07/06/22 08:22 Dose: 1 each Multivitamins (Multivitamin Tab) 1 tab PO QAM [facility] Stop: 07/27/22 08:59 Last Admin: 07/06/22 08:24 Dose: 1 tab Nicotine (Nicotine 14 Mg/24 Hr Patch) 14 mg TD QAM [facility] Stop: 07/27/22 05:49 Last Admin: 07/06/22 08:25 Dose: 14 mg Thiamine HCl (Thiamine Hcl 100 Mg Tab) 100 mg PO DAILY [facility] Stop: 08/01/22 08:59 Last Admin: 07/06/22 08:24 Dose: 100 mg Trazodone HCl (Trazodone Hcl 50 Mg Tab) 50 mg PO HS PRN PRN Reason: insomnia Stop: 07/29/22 20:59 Last Admin: 07/04/22 22:11 Dose: 50 mg (3) HTN (hypertension) Hypertension type: primary hypertension Qualified Code(s): I10 - Essential (primary) hypertension
--- NOTE | 2022-07-06 11:07 | Nephrology Progress Note ---
Date of Service July 06, 2022 Assessment & Plan (1) Acute kidney injury: Plan: very hard to pinpoint baseline. although a few days ago, he had a creatinine of 1.3 (though likely w/o his customary meds on board or appropriate BP); would call his acceptable baseline more in the 1.7-2.0 creatinine range, but really we do not know what his baseline is and would observe/establish baseline ideally with acceptable blood pressure control concurrently. His renal function is extremely labile depending on clinical circumstances he has had many, many episodes of acute renal failure in the past, some of which were almost to the point of needing dialysis. At this point, the patient remains euvolemic. He is eating and drinking normally and we do not need to give him any IV fluids, but I would continue to hold the Lasix for the time being unless he is acutely dyspneic. Do not give him MEAGAN or ARB. His creatinine peaked at 2.89, Most likely etiology of the sudden rise in the creatinine could be extremely high blood pressure on admission and then subsequent drop in the blood pressure in a very short period of time. He is very susceptible to acute renal failure and almost every admissions in the past he has had acute renal failure at some point. Creatinine plateaued in the high ones; blood pressure lability has been stabilized past 72+ hours -avoid thiazides d/t tendency to hyponatremia -no indication for loop diuretics today but look to start soon given K trend -trial of low dose lisinopril 10 mg daily starting 07/05 >consider spironolactone moving forward OK from renal standpoint to discharge Nephrology discharge recommendations Resume Jardiance 10 mg daily Continue lisinopril 10 mg daily at discharge Continue current doses of amlodipine and carvedilol at discharge Start Lasix 40 mg every morning at hospital discharge Weekly basic metabolic panel to be ordered by nephrology nurse HOSPITAL DISCHARGE appt w/ Dr Ba Alexander in neph clinic in 2-4 wks Admission and Anticipated Discharge Date Admission Date: June 27, 2022 Subjective No interval events clinically. Continues to feel well. Denies lower extremity edema, shortness of breath, nausea vomiting, challenges ambulating, new or worrisome voiding symptoms Review of Systems Review of Systems: All systems reviewed & are unremarkable except as noted in Subjective Physical Exam Constitutional: well developed and well nourished Eyes: EOM intact bilaterally ENMT: Ears: no external ear abnormality Nose: no external nose abnormality Mouth: + dry oral mucous membranes Neck: no nuchal rigidity Respiratory: normal respiratory effort Auscultation: + diminished lung sounds Gastrointestinal (Abdomen): Inspection/Auscultation: normal bowel sounds Percussion/Palpation: abdomen soft; abdomen nontender Musculoskeletal: Extremities: strength 5/5 throughout Skin: no rashes, warm and dry Results & Data Vital Signs (Past 12 Hours) Vital Signs Temp Pulse Pulse Resp BP BP Pulse Ox 07/06/22 06:00 74 07/06/22 07:38 37.4 C 70 18 159/81 H 92 07/06/22 03:02 36.9 C 64 18 158/84 H 97 O2 Del Method 07/06/22 06:00 07/06/22 07:38 Room Air 07/06/22 03:02 Room Air Laboratory Results 07/03/22 06:58 07/06/22 06:53
--- NOTE | 2022-07-06 13:19 | Discharge Summary ---
Date of Service July 06, 2022 Admission HPI Per Admitting Provider History obtained from patient and records. Limited history from patient secondary to confusion. Medical history significant for chronic diastolic heart failure secondary to ischemic cardiomyopathy (EF 55-59 %, TTE 2021), CAD status post stent, hypertension, hyperlipidemia, COPD as per records, CATALINO/CPAP non-compliance, DM 2 on oral medications, anxiety/mood disorder, chronic anemia (baseline hemoglobin 11-12), ongoing tobacco/alcohol abuse, history alcohol withdrawal seizures, chronic pain on Suboxone, medication noncompliance, substance abuse as per records. Last confinement November 2021 for hydrocele secondary to kidney dysfunction. Subsequent stays at different rehab facilities for alcohol addiction over the last few months. Seen at PCPs office on follow-up visit 2 weeks ago after discharge from [facility] in [place]. Patient anxious about being out of medications as per note. PCP requested for copy of the discharge med list from rehab center. Patient instructed to resume ASA, atorvastatin, amlodipine, Coreg, furosemide, folic acid, B12, thiamine, glipizide and Jardiance interim. 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 Unanswered phone calls as per outpatient documentation. Patient noted to have seizures at home by roommate last night. Patient has no recollection of events. Denies headache, chest pain, shortness of breath, abdominal pain. Cannot recall last EtOH intake. Not sure if he is taking medications. Patient brought to the ER for evaluation. Initial SBP in the ER 190s. Medical Historyas above Surgical History : None Family History : Heart disease, diabetes Personal/Social history : 1/2 pack daily, alcohol abuse, currently unemployed Admission Exam Per Admitting Provider GENERAL: obese, disoriented, tremulous, no respiratory distress SKIN: Pallor, warm HEENT: Pale palpebral conjunctivae, no ptosis, dry buccal mucosa NECK : Supple, short neck, no tenderness CHEST : Decreased breath sounds, no tenderness HEART : Tachycardic, systolic murmur ABDOMEN: Some distention, nontender EXTREMITIES : Minimal LE swelling, no LE tenderness NEUROLOGIC : Disoriented, no facial asymmetry, tremulous Principal Diagnosis Likely withdrawal seizure, outside of the hospital Encephalopathy Hypertensive crisis on admission ONDINA on CKD Hyponatremia Diarrhea, positive for norovirus Discharge Exam General: obese M, not in distress, on room air HEENT: EOMI, AYDEE, MMM Chest: Clear breath sounds bilaterally, no wheezes or crackles CVS: Regular rate and rhythm, normal heart sounds, no murmur Abdomen: Soft, non tender, not distended, normal bowel sounds Neuro: Awake, alert, oriented, conversing well, speech fluent, moves extremities Extremities: Hand Tremors much improved. Moves extremities. Minimal LE edema Discharge Data Allergies Allergy/AdvReac Type Severity Reaction Status Date / Time pollen extracts Allergy Intermediate SNEEZING, Verified 06/27/22 02:46 CONGESTION Consultations 06/27/22 00:54 ED Decision to Admit Stat 06/27/22 06:11 HIM [Consult Health Information Management] Routine 06/29/22 08:52 Consult Nephrology Routine Ordered Studies 06/26/22 23:06 CT head/brain wo con Stat FINDINGS: No acute intracranial hemorrhage. No midline shift or mass effect. The territorial alvarado-white matter differentiation is maintained throughout. The ventricles and sulci are commensurate with age. The visualized orbits appear grossly unremarkable. The calvarium is intact. Paranasal sinus mucosal thickening. IMPRESSION: No acute intracranial hemorrhage, midline shift, or mass effect. Hospital Course (1) Encephalopathy: (2) Diabetes mellitus type 2 with complications: (3) HTN (hypertension): Plan 57-year-old male with alcohol abuse brought to ED for confusion Acute metabolic encephalopathy-likely related to his alcohol abuse/withdrawal as well as hypertensive crisis. Urine drug screen negative, alcohol level negative. COVID-19 negative. TSH normal, procal negative, no leukocytosis, no source of infection identified. Patient looks stable and nontoxic. Blood cultures negative. Alcohol abuse with withdrawal/history of recurrent alcohol withdrawal seizures- continue alcohol withdrawal protocol, gabapentin taper, thiamine, folate, multivitamin, Ativan as needed. Patient does not want to go to inpatient alcohol rehab at discharge. ONDINA on CKD3b- peaked Cr 2.9 -> down to -> 1.6 -> 1.9 -> 2.0 -> 1.9 Nephrology following closely regarding his ONDINA on CKD, and hypertension. Nephrology discharge recommendations Continue lisinopril 10 mg daily at discharge Continue current doses of amlodipine and carvedilol at discharge Start Lasix 40 mg every morning at hospital discharge Weekly basic metabolic panel to be ordered by nephrology nurse HOSPITAL DISCHARGE appt w/ Dr Ba Alexander in neph clinic in 2-4 wks Hyponatremia-likely related to beer potomania and decreased solute intake. Serum osmolality 271, urine osmole 305, urine sodium 16. Sodium improved to 133 ->137 ->136 -> 135 Correcting appropriately. Nephrology following. Hypokalemia-resolved with repletion Hypomagnesemia- replete and monitor Diarrhea-with incontinence. No blood. + Norovirus. Resolved Elevated troponin-likely demand ischemia related to his acute medical condition. Troponin trend reviewed. No chest pain. Diabetes mellitus type 2 on insulin-states he has run out of insulin and is requesting for refill at discharge. However he is requiring very less insulin and had hypoglycemic episode despite adequate oral intake. cont sliding scale. [place] as indicated. Glycemic pharmacy consulted. Per outpt records pt was on glipizide and jardiance. Essential hypertension-hypertensive crisis on admission then BP improved. Then BP again elevated, diuretics on hold d/t ondina. On carvedilol, amlodipine - dose increased - discussed w/ nephrology. Started lisinopril (07/05). BP better controlled. Prn hydralazine ordered Chronic pain-takes sublingual Suboxone as needed at home. Tobacco abuse -smokes 2 packs a day. Recommended cutting down. Continue with nicotine patch Total Time Total Time Spent Total Time Spent (In Minutes): 40 Discharge Plan Discharge Items Patient Disposition: Home - Self-Care Reason For Visit: HTN CRISIS, ETOH WITHDRAWAL Discharge Diagnosis: Likely withdrawal seizure, outside of the hospital Encephalopathy Hypertensive crisis on admission ONDINA on CKD Hyponatremia Diarrhea, positive for norovirus Activity: Per Instructions section Non-emergency contact: Primary Care Provider and Child Care Teacher Call non-emergency contact if: you have any medication questions and your symptoms worsen Follow-up/Referrals: Ba Alexander MD [Surgeon] - (Date & Time 12/22/2022 2:40 PM Provider Ba Alexander MD Department Nephrology, [facility] The Nephrology office will call you with a closer appointment.) Charity eRed MD [Primary Care Provider] - (Date & Time 07/11/2022 2:00 PM Provider Charity Reed MD Department General Internal Medicine [facility] ) Diet: Regular and Carb Consistent or DM2 Addtl Attending Provider Instructions: Follow-up with primary care doctor, and motor and generator brush cutter. The appointment with primary care doctor was scheduled for you for July 11. Your blood pressure medications were changed. Amlodipine was increased to 5 mg twice a day. Carvedilol/Coreg was increased to 12.5 mg twice a day. Lasix/furosemide dose was not changed - Take 40 mg daily. You were also started on a new medication, lisinopril, take 10 mg daily. If you can, monitor your blood pressure at home and discuss your numbers with your primary care doctor, and motor and generator brush cutter. You will need weekly blood work, BMP, to check your kidney function. Pending Studies at Discharge: No Stand-Alone Forms: My [facility], Smoking Cessation Medications and DC Order Prescriptions: New amlodipine [Norvasc] 5 mg Tablet 5 mg PO BID Qty: 60 0RF carvedilol 12.5 mg Tablet 12.5 mg PO BID 30 Days Qty: 60 0RF lisinopril 10 mg Tablet 10 mg PO QAM Qty: 30 0RF multivitamin with folic acid [Daily-Ladonna (with folic acid)] 400 mcg Tablet 1 tab PO QAM Qty: 30 0RF Continued folic acid 1 mg Tablet 1 mg PO QAM atorvastatin 80 mg tablet 80 mg PO QAM buprenorphine-naloxone 8-2 mg tablet, sublingual 1 tab SUBLINGUAL BID furosemide 40 mg tablet 40 mg PO HS glipizide 10 mg tablet extended release 24hr 10 mg PO DAILY aspirin 81 mg tablet,chewable 81 mg PO DAILY Jardiance 10 mg tablet 10 mg PO DAILY Vitamin B-12 thiamine HCl (vitamin B1) 100 mg PO DAILY Discontinued carvedilol 6.25 mg Tablet 6.25 mg PO BID Rx Instructions: must administer with a meal/food furosemide 80 mg tablet 80 mg PO DAILY amlodipine 5 mg tablet 5 mg PO DAILY Discharge Orders: Discharge Order (Routine); Ordered 07/06/22 Ordered By: Germain Munoz Admission Data Admit Date/Time: 06/27/22 03:13 Attending Provider: Germain Munoz Admit Provider: Mirza Moreno Primary Care Provider: Charity Reed Other Providers: Giuseppe Calhoun ; Mirza Moreno ; Ba Alexander
== END 2022-07-06 16:04 | disposition home or self-care (01) | DRG 100 ==
LOC: ED 22:55 → SUATTDRO 06-27 03:13 → 2S 06-27 03:13 → 2W 07-05 12:16

== ENCOUNTER 2022-09-23 14:45 | Inpatient (IN) ==
[2022-09-23] MEDS ORDERED: THIAMINE HCL 100 MG, FOLIC ACID 1 MG in SODIUM CHLORIDE 0.9% 1000ML 1,000 ML IV STA (15:22)
[2022-09-23] MEDS ORDERED: CEROVITE ADV FORMULA TAB PO STA (15:22)
[2022-09-23] MEDS ORDERED: MAGNESIUM SULFATE / D5W 1 GM/100 ML BAG IV STA ×2 (15:23→16:36)
--- NOTE | 2022-09-23 15:35 | Emergency Department Note ---
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 AGNES Lisinopril (Lisinopril 5 Mg Tab) 5 mg PO NOW ONE Stop: 09/23/22 19:45 Last Admin: 09/23/22 19:55 Dose: 5 mg Documented By: Multivitamins/Minerals (Cerovite Adv Formula Tab) 1 tab PO ONE STA Stop: 09/23/22 15:23 Last Admin: 09/23/22 15:43 Dose: 1 tab Documented By: AB Potassium Chloride (Potassium Chloride Crtab 20 Meq Tabcr) 40 meq PO NOW STA Stop: 09/23/22 19:45 Last Admin: 09/23/22 19:55 Dose: 40 meq Documented By: AB Sodium Zirconium Cyclosilicate (Sodium Zirconium Cyclosilicate 10 Gm Packet) 10 gm PO ONE ONE Stop: 09/24/22 11:01 Last Admin: 09/24/22 10:54 Dose: 10 gm Documented By: AM Imaging Data Radiologist's Impression: Cervical Spine CT 09/23/22 15:24 CT SCAN OF THE CERVICAL SPINE CLINICAL HISTORY: Trauma. COMPARISON STUDY: No priors. TECHNIQUE: CT scan of the cervical spine is performed from the skull base to the upper thoracic spine. Images are reviewed in the axial, sagittal, and coronal planes. IV contrast was not administered for this examination. A dose lowering technique was utilized adhering to the principles of ALARA. FINDINGS: Skeletal structures: The skeletal structures are well mineralized. There is no evidence of fracture or subluxation involving the cervical spine. Vertebral body height and alignment are maintained. There is straightening of the cervical lordosis. Tiny anterior osteophytes are seen throughout. The odontoid process and lateral masses are intact. The atlantoaxial articulation is preserved noting mild productive degenerative change. The spinous processes appear intact. Intervertebral discs: There is minimal degenerative disc space narrowing. Central canal: Small posterior disc osteophyte complexes at C5-C6 and C6-C7 may contribute to mild acquired compromise of the central canal. Soft tissues: The prevertebral and paraspinous soft tissues are within normal limits. There is atherosclerotic calcification of the carotid bulbs. Calvarium: The visualized calvarium at the skull base appears intact. Brain parenchyma: Partially visualized brain parenchyma at the skull base is within normal limits. Sinuses and mastoids: There is moderate mucosal thickening within the maxillary antra, right greater than left. Mild mucosal thickening is seen in the ethmoid and sphenoid sinuses. The mastoid air cells are well pneumatized. Lung apices: Emphysematous change is seen at the apices. Apical lung parenchyma is otherwise clear as visualized. IMPRESSION: 1 There is no evidence of fracture or subluxation involving the cervical spine. 2. Emphysema. ACT 112: Negative or not required by law. Electronically signed by: Ivan Sprague M.D. 09/23/2022 4:17 PM Chest X-Ray 09/23/22 15:24 SINGLE VIEW CHEST CLINICAL HISTORY: Trauma. FINDINGS: 2 AP, portable, upright chest radiographs are compared to study dated 06/26/2022. Correlation is made with chest CT dated 01/16/2020. The heart is enlarged. The pulmonary vasculature is noncongested. There is mild bibasilar scarring/atelectasis. The lungs and pleural spaces are otherwise clear. No pneumothorax is seen. The skeletal structures appear osteopenic. The bony thorax is grossly intact. IMPRESSION: Cardiomegaly with no acute cardiopulmonary abnormality. ACT 112: Negative or not required by law. Electronically signed by: Ivan Sprague M.D. 09/23/2022 4:[address] 09/23/22 15:[address] DOSE: 1330.18 mGy.cm HISTORY: Head injury. Headache. trauma TECHNIQUE: Multiaxial CT images of the head were performed without the use of intravenous contrast. Automated exposure control was utilized for this study. A dose lowering technique was utilized adhering to the principles of ALARA. Comparison: Head CT 06/26/2022. Findings: Near complete opacities in the right maxillary sinus with a small fluid level. There is also trace fluid within the left axilla sinus. This has progressed in the interval. Mucosal thickening seen within the left frontal sinus. The mastoid air cells are clear. Mild motion artifact. 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 No hydrocephalus at this time. The calvarium and skull base are intact. The ventricles and sulci are within normal limits. There is no mass, hematoma, midline shift, or acute infarct. Impression: 1. No acute infarct or intracranial hemorrhage. 2. 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 No hydrocephalus at this time. ACT 112: Negative or not required by law. Electronically signed by: Greg Goyal M.D. 09/23/2022 4:15 PM Discharge Plan Visit Data Chief Complaint: Head Injury, Minor Stated Complaint: MEMORY ISSUES, STRUCK IN HEAD 5 DAYS AGO ED Provider: Christine Hammond Discharge Problem: CHI (closed head injury), Alcohol abuse, Hypomagnesemia, Alcohol withdrawal, CKD (chronic kidney disease), Hyponatremia, Abnormal LFTs, Hyperglycemia, Non- compliance Patient Disposition: Admitted As Inpatient Discharge Instructions Interventions: ED Discharge Assessment Last Done: 09/23/22 21:38
[2022-09-23 16:06] LABS: Basophils # (auto) 0.03 K/uL (0-0.2); Basophils % (auto) 0.7 %; Eosinophils # (auto) 0.03 K/uL (0-0.50); Eosinophils % (auto) 0.7 %; Hematocrit (blood only) 36.8 % (42.0-52.0); Immature Granulocytes # (auto) 0.01 K/uL (0.01-0.20); Immature Granulocytes % (auto) 0.2 %; Lymphocytes # (auto) 1.24 K/uL (1.2-3.4); Lymphocytes % (auto) 27.9 %; Mean Corpuscular Hemoglobin 31.7 pg (25.0-34.0); Mean Corpuscular Hgb Conc 35.3 g/dL (32.0-36.0); Mean Corpuscular Volume 89.8 fL (80.0-100.0); Mean Platelet Volume 10.7 fL (9.4-12.4); Monocytes # (auto) 0.33 K/uL (0.11-0.59); Monocytes % (auto) 7.4 %; Neutrophils # (auto) 2.81 K/uL (1.40-6.50); Neutrophils % (auto) 63.1 %; Platelet Count 174 K/uL (130-400); RDW Coefficient of Variation 12.3 % (11.5-14.5); RDW Standard Deviation 40.3 fL (36.4-46.3); White Blood Count 4.45 K/ul (4.8-10.8)
--- NOTE | 2022-09-23 16:16 | CT Scan Report ---
HEAD CT NONCONTRAST CT DOSE: 1330.18 mGy.cm HISTORY: Head injury. Headache. trauma TECHNIQUE: Multiaxial CT images of the head were performed without the use of intravenous contrast. A utomated exposure control was utilized for this study. A dose lowering technique was utilized adheri ng to the principles of ALARA. Comparison: Head CT 06/26/2022. Findings: Near complete opacities in the right maxillary sinus with a small fluid level. There is als o trace fluid within the left axilla sinus. This has progressed in the interval. Mucosal thickening s een within the left frontal sinus. The mastoid air cells are clear. Mild motion artifact. 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 No hydrocephalus at this time. The calvarium and skull base are intact. The ventricles and sulci are within normal limits. There is no mass, hematoma, midline s hift, or acute infarct. Impression: 1. No acute infarct or intracranial hemorrhage. 2. 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 No hydrocephalus at this time. ACT 112: Negative or not required by law. Electronically signed by: Greg Goyal M.D. 09/23/2022 4:15 PM
--- NOTE | 2022-09-23 16:18 | CT Scan Report ---
CT SCAN OF THE CERVICAL SPINE CLINICAL HISTORY: Trauma. COMPARISON STUDY: No priors. TECHNIQUE: CT scan of the cervical spine is performed from the skull base to the upper thoracic spine . Images are reviewed in the axial, sagittal, and coronal planes. IV contrast was not administered fo r this examination. A dose lowering technique was utilized adhering to the principles of ALARA. FINDINGS: Skeletal structures: The skeletal structures are well mineralized. There is no evidence of fracture o r subluxation involving the cervical spine. Vertebral body height and alignment are maintained. Ther e is straightening of the cervical lordosis. Tiny anterior osteophytes are seen throughout. The odont oid process and lateral masses are intact. The atlantoaxial articulation is preserved noting mild pro ductive degenerative change. The spinous processes appear intact. Intervertebral discs: There is minimal degenerative disc space narrowing. Central canal: Small posterior disc osteophyte complexes at C5-C6 and C6-C7 may contribute to mild ac quired compromise of the central canal. Soft tissues: The prevertebral and paraspinous soft tissues are within normal limits. There is athero sclerotic calcification of the carotid bulbs. Calvarium: The visualized calvarium at the skull base appears intact. Brain parenchyma: Partially visualized brain parenchyma at the skull base is within normal limits. Sinuses and mastoids: There is moderate mucosal thickening within the maxillary antra, right greater than left. Mild mucosal thickening is seen in the ethmoid and sphenoid sinuses. The mastoid air cells are well pneumatized. Lung apices: Emphysematous change is seen at the apices. Apical lung parenchyma is otherwise clear as visualized. IMPRESSION: 1 There is no evidence of fracture or subluxation involving the cervical spine. 2. Emphysema. ACT 112: Negative or not required by law. Electronically signed by: Ivan Sprague M.D. 09/23/2022 4:17 PM
--- NOTE | 2022-09-23 16:29 | XRay Report ---
SINGLE VIEW CHEST CLINICAL HISTORY: Trauma. FINDINGS: 2 AP, portable, upright chest radiographs are compared to study dated 06/26/2022. Correlation is made with chest CT dated 01/16/2020. The heart is enlarged. The pulmonary vasculature is nonconge sted. There is mild bibasilar scarring/atelectasis. The lungs and pleural spaces are otherwise clear. No pneumothorax is seen. The skeletal structures appear osteopenic. The bony thorax is grossly intac t. IMPRESSION: Cardiomegaly with no acute cardiopulmonary abnormality. ACT 112: Negative or not required by law. Electronically signed by: Ivan Sprague M.D. 09/23/2022 4:28 PM
[2022-09-23 16:31] LABS: Albumin Globulin Ratio 0.9 (0.9-2); Albumin Level 2.9 gm/dl (3.4-5.0); Bilirubin,Total 0.6 mg/dl (0.2-1.0); Calcium 8.1 mg/dl (8.6-10.3); Est GFR (African American) 49.3 ml/min; Est GFR (Non-African American) 42.6 ml/min; Globulin 3.4 gm/dl (2.5-4.0); Magnesium 1.5 mg/dl (1.7-2.4); Potassium 3.6 mmol/L (3.5-5.1); Total Protein 6.3 gm/dl (6.0-8.3); Troponin I High Sensitivity 18.8 pg/ml (0-20)
[2022-09-23 16:33] LABS: Prothrombin Time 10.5 Seconds (9.0-12.0)
[2022-09-23] MEDS ORDERED: SODIUM CHLORIDE 0.9% 1000ML 1,000 ML IV ONE (16:36)
[2022-09-23] MEDS ORDERED: amLODIPine BESYLATE 5 MG TAB PO ONE (18:53)
[2022-09-23] MEDS ORDERED: carvediloL 6.25 MG TAB PO STA (18:53)
[2022-09-23 19:00] LABS: Amphetamines+Metham, Urine Neg (Neg); Barbiturates, Urine Neg (Neg); Benzodiazepine, Urine Neg (Neg); Cocaine, Urine Neg (Neg); MDMA (Ecstacy), Urine Neg (Neg); Methadone, Urine Neg (Neg); Opiate, Urine Neg (Neg); Phencyclidine, Urine Neg (Neg)
[2022-09-23] MEDS ORDERED: LIDOCAINE 5% 1 PATCH TD STA (19:37)
[2022-09-23] MEDS ORDERED: lisinopril 5 MG TAB PO ONE (19:44)
[2022-09-23] MEDS ORDERED: POTASSIUM CHLORIDE CRTAB 20 MEQ TABCR PO STA (19:44)
[2022-09-23] MEDS ORDERED: MAGNESIUM SULFATE / D5W 1 GM/100 ML BAG IV ONE (20:53)
[2022-09-23 21:03] LABS: Influenza A virus by PCR Negative (Neg); Influenza B virus by PCR Negative (Neg); RSV by PCR Negative (Neg); SARS CoV2 RNA(COVID-19) Ceph NEGATIVE (Negative)
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
[2022-09-23] MEDS ORDERED: NITROGLYCERIN SL 0.4 MG/TAB TAB SL PRN (22:11)
[2022-09-23] MEDS ORDERED: DEXTROSE 50% 50 ML SYRINGE IV PRN (22:11)
[2022-09-23] MEDS ORDERED: LORazepam 2 MG/1 ML VIAL IV PRN ×3 (22:11)
[2022-09-23] MEDS ORDERED: POLYETHYLENE (MIRALAX) 17 GM PACK PO PRN (22:11)
[2022-09-23] MEDS ORDERED: GABAPENTIN 600 MG TAB PO ONE (22:11)
[2022-09-23] MEDS ORDERED: GLUCOSE 10 TAB/TUBE PO PRN (22:11)
[2022-09-23] MEDS ORDERED: GLUCOSE 40% GEL 15 GM TUBE PO PRN (22:11)
[2022-09-23] MEDS ORDERED: PHARMACY GLYCEMIC MGMT CONSULT PRN (22:11)
[2022-09-23] MEDS ORDERED: GABAPENTIN 1200MG ALCOHOL WITHDRAWAL LOAD PO STA (22:11)
[2022-09-23] MEDS ORDERED: GLUCAGON FOR INJ 1 MG VIAL SQ PRN (22:11)
[2022-09-23] MEDS ORDERED: Ativan IV Alcohol Withdrawal--Active Protocol IV PRN (22:11)
[2022-09-23] MEDS: BUPRENORPHINE/NALOXONE 8/2 MG TAB SL SCH (22:35)
[2022-09-23] MEDS: SODIUM CHLORIDE 0.9% 1000ML 1,000 ML IV SCH (22:39)
[2022-09-23] MEDS ORDERED: LANTUS PER UNIT CHARGE SC ONE (22:45)
[2022-09-23] MEDS: INSULIN ASPART PER UNIT CHARGE SC SCH (22:53)
[2022-09-23] MEDS: carvediloL 6.25 MG TAB PO SCH (22:55)
[2022-09-23] MEDS: amLODIPine BESYLATE 5 MG TAB PO SCH (22:55)
[2022-09-23] MEDS: FUROSEMIDE 40 MG TAB PO SCH (22:55)
--- NOTE | 2022-09-24 05:22 | Pharmacy Report ---
Pharmacy Glycemic Short Note 2 - Date of Service September 24, 2022 - Glycemic Short BSG Results (Last 24 hours): 09/23/22 09/23/22 09/23/22 15:36 20:23 22:38 Glucose 347 H* POC Glucose 209 H 244 H OUTPATIENT ANTIDIABETIC REGIMEN: * Glipizide 10 mg PO daily * Jardiance 10mg PO daily * HbA1c: 7.7% (06/26/22) -- updated A1c pending with AM labs ASSESSMENT: * Mr Dillard is a 57yo diabetic M admitted d/t fall, EtOH withdrawal. * BSGs were elevated on admission (347 mg/dL), so patient was initiated on SQ basal/bolus regimen. * Pharmacy will continue to follow and make adjustments as indicated. PLAN FOR INPATIENT GLYCEMIC CONTROL: * Hold outpatient oral diabetes medications * Basal insulin * Lantus 20 units SQ x1 dose last evening * further dosing pending eval of AM BSGs * Bolus insulin * NovoLog per scale ACHS or Q6hrs while NPO * Goal Range: Low 120 mg/dL - High 150 mg/dL * Correction Factor: 30 mg/dL/unit * Nutritional / Prandial insulin per carb ratio of 1 unit per 10 grams CHO consumed
[2022-09-24] MEDS: GABAPENTIN 600 MG TAB PO SCH ×3 (05:47→21:14)
[2022-09-24 06:31] LABS: Basophils # (auto) 0.04 K/uL (0-0.2); Eosinophils # (auto) 0.06 K/uL (0-0.50); Eosinophils % (auto) 1.4 %; Hematocrit (blood only) 36.4 % (42.0-52.0); Hemoglobin 12.2 g/dl (14.0-18.0); Immature Granulocytes # (auto) 0.01 K/uL (0.01-0.20); Immature Granulocytes % (auto) 0.2 %; Lymphocytes % (auto) 33.7 %; Mean Corpuscular Hemoglobin 31.4 pg (25.0-34.0); Mean Corpuscular Hgb Conc 33.5 g/dL (32.0-36.0); Mean Corpuscular Volume 93.8 fL (80.0-100.0); Mean Platelet Volume 11.3 fL (9.4-12.4); Monocytes # (auto) 0.49 K/uL (0.11-0.59); Monocytes % (auto) 11.8 %; Neutrophils # (auto) 2.15 K/uL (1.40-6.50); Neutrophils % (auto) 51.9 %; Platelet Count 163 K/uL (130-400); RDW Coefficient of Variation 12.3 % (11.5-14.5); RDW Standard Deviation 42.5 fL (36.4-46.3); Red Blood Count 3.88 M/uL (4.70-6.10); White Blood Count 4.15 K/ul (4.8-10.8)
[2022-09-24 07:03] LABS: Albumin Level 2.5 gm/dl (3.4-5.0); Bilirubin Direct 0.2 mg/dl (0-0.2); Bilirubin,Total 0.8 mg/dl (0.2-1.0); Calcium 7.8 mg/dl (8.6-10.3); Magnesium 2.2 mg/dl (1.7-2.4); Potassium 5.2 mmol/L (3.5-5.1)
--- NOTE | 2022-09-24 07:10 | Electrocardiogram Report ---
Test Reason : Blood Pressure : / mmHG Vent. Rate : 085 BPM Atrial Rate : 085 BPM P-R Int : 194 ms QRS Dur : 100 ms QT Int : 408 ms P-R-T Axes : 046 -10 056 degrees QTc Int : 485 ms Normal sinus rhythm Prolonged QT Abnormal ECG When compared with ECG of 26-JUN-2022 23:04, Premature ventricular complexes are no longer Present Confirmed by Hany Amador ([id number]) on 09/24/2022 7:09:57 AM Referred By: Confirmed By:Rocael Amador
[2022-09-24 07:14] LABS: BUN Creatinine Ratio 13.7 (10-20); Creatinine Clr Calc Pharmacy 48.3 ml/min; Est GFR (African American) 40.4 ml/min; Est GFR (Non-African American) 34.9 ml/min; Total Protein 5.6 gm/dl (6.0-8.3)
--- NOTE | 2022-09-24 07:17 | Hospitalist Progress Note ---
Date of Service September 24, 2022 Assessment & Plan (1) CHI (closed head injury): Plan: 57-year-old male with PMH of alcohol abuse and multiple admissions history of alcohol seizures, ongoing tobacco abuse, history of CAD s/p stent, history of diabetes hypertension presents with fall at home and also found to have hypertensive urgency and alcohol withdrawal. Fall CT head is negative and cervical spine CT is negative We will monitor PT OT when stable. Alcohol abuse History of alcohol withdrawal seizures Continue home thiamine and folic acid We will start on gabapentin alcohol withdrawal protocol IV Ativan as needed Close monitor. Hypertensive urgency Not taking his home medications for the last few days We will continue his home amlodipine, Coreg, lisinopril, Lasix We will place an IV labetalol as needed. Close monitor. Hyponatremia sodium of 129 Hyperkalemia - mild - pseudohyponatremia in setting of hyperglycemia Received gentle fluids on admission Possible beer Potomania Nephrology consulted- appreciate the input - stop fluids, cont. w/ lasix, give lokelma for hyperkalemia Hypomagnesemia replace and monitor Diabetes Hyperglycemia We will hold home p.o. medications Insulin sliding scale. Glycemic Pharmacy consulted. We will follow blood sugars closely. Lower extremity edema On Lasix which will be continued Dopplers negative for DVT History of CAD s/p stent Continue Coreg aspirin and statin. ONDINA on chronic kidney disease chronic kidney disease stage III Baseline creatinine unclear perhaps ~ 1.3. Pt presented w/ creatinine 1.7 -> 2 Received gentle fluids If worsening will hold Lasix and lisinopril Nephrology consulted - appreciate their input DVT prophylaxis - Lovenox Disposition - Monitor on telemetry CODE STATUS full code (2) Alcohol abuse: (3) Hypomagnesemia: (4) Alcohol withdrawal: (5) CKD (chronic kidney disease): (6) Hypertensive urgency: Admission and Anticipated Discharge Date Admission Date: September 23, 2022 Subjective Pt seen in follow up of hyponatremia, alcoholism, hypertensive urgency Currently sitting up in bed, in no acute distress, he is awake alert and answering simple questions appropriately. Initially reported that he could not remember being in the hospital here before, but now it is coming back to him. Denies any fevers chills chest pain shortness of breath or abdominal pain. He is using alcohol, and reports being homeless. Review of Systems Review of Systems: All systems reviewed & are unremarkable except as noted in Subjective Physical Exam Physical Exam: General- obese M in NAD Head- atraumatic Eyes- PERRL, EOMI, anicteric ENT- oropharynx clear Neck- supple, no JVD, no adenopathy Lungs- clear to auscultation b/l Heart- regular rhythm; no murmur Abdomen- normal bowel sounds, soft, nontender, + obese Extremities- pedal edema present Neuro- alert, oriented x 3; PERRL, no facial palsy; no dysarthria, moves extremities Skin- warm & dry Results & Data Results & Data Vital Signs (Past 12 Hours) Vital Signs Temp Pulse Pulse Resp BP BP Pulse Ox 09/24/22 05:34 36.5 C 78 16 145/92 H 96 09/24/22 01:36 36.4 C L 75 18 154/91 H 96 09/23/22 22:07 80 09/23/22 22:19 09/23/22 22:07 36.7 C 80 16 207/114 H 96 09/23/22 21:38 09/23/22 20:58 81 179/104 H 09/23/22 19:36 87 204/110 H 98 O2 Del Method 09/24/22 05:34 Room Air 09/24/22 01:36 Room Air 09/23/22 22:07 09/23/22 22:19 Room Air 09/23/22 22:07 Room Air 09/23/22 21:38 Room Air 09/23/22 20:58 09/23/22 19:36 Room Air Laboratory Results 09/24/22 09/24/22 09/24/22 Range/Units 11:22 11:03 11:01 WBC (4.8-10.8) K/ul RBC (4.70-6.10) M/uL Hgb (14.0-18.0) g/dl Hct (42.0-52.0) % MCV (80.0-100.0) fL MCH (25.0-34.0) pg MCHC (32.0-36.0) g/dL RDW Std Deviation (36.4-46.3) fL RDW Coeff of Alberto (11.5-14.5) % Plt Count (130-400) K/uL MPV (9.4-12.4) fL Immature Gran % (Auto) % Neut % (Auto) % Lymph % (Auto) % [place] % (Auto) % Eos % (Auto) % Baso % (Auto) % Neut # (Auto) (1.40-6.50) K/uL Lymph # (Auto) (1.2-3.4) K/uL [place] # (Auto) (0.11-0.59) K/uL Eos # (Auto) (0-0.50) K/uL Baso # (Auto) (0-0.2) K/uL Immature Gran # (Auto) (0.01-0.20) K/uL PT (9.0-12.0) Seconds INR (0.9-1.1) Sodium (136-145) mmol/L Potassium (3.5-5.1) mmol/L Chloride (98-107) mmol/L Carbon Dioxide (21-32) mmol/L Anion Gap (3-11) BUN (6-23) mg/dl Creatinine (0.6-1.4) mg/dl Est Cr Clr Drug Dosing ml/min Est GFR ( Amer) ml/min Est GFR (Non-Af Amer) ml/min BUN/Creatinine Ratio (10-20) Glucose (70-99(Fasting)) mg/dl POC Glucose 137 H 45 L* 44 L* (70-99) mg/dl Estimat Average Glucose mg/dl Hemoglobin A1c (4.5-5.6) % Calcium (8.6-10.3) mg/dl Magnesium (1.7-2.4) mg/dl Total Bilirubin (0.2-1.0) mg/dl Direct Bilirubin (0-0.2) mg/dl AST (13-39) U/L ALT (7-52) U/L Alkaline Phosphatase (34-104) U/L Troponin I High Sens (0-20) pg/ml Total Protein (6.0-8.3) gm/dl Albumin (3.4-5.0) gm/dl Globulin (2.5-4.0) gm/dl Albumin/Globulin Ratio (0.9-2) Vitamin B12 (180-914) pg/ml Urine Opiates Screen (Neg) Ur Methadone, Qual (Neg) Urine Barbiturates (Neg) Ur Phencyclidine (PCP) (Neg) U Amphetamin/Meth Scrn (Neg) MDMA (Ecstasy) Screen (Neg) U Benzodiazepines Scrn (Neg) Ur Cocaine Metabolite (Neg) U Marijuana (THC) Screen (Neg) Ethyl Alcohol mg/dL (<10.0) mg/dl SARS-CoV-2 (PCR) (Negative) Influenza Type A (PCR) (Neg) Influenza Type B (PCR) (Neg) RSV (RT-PCR) (Neg) 09/24/22 09/24/22 09/24/22 Range/Units 10:47 10:31 10:16 WBC (4.8-10.8) K/ul RBC (4.70-6.10) M/uL Hgb (14.0-18.0) g/dl Hct (42.0-52.0) % MCV (80.0-100.0) fL MCH (25.0-34.0) pg MCHC (32.0-36.0) g/dL RDW Std Deviation (36.4-46.3) fL RDW Coeff of Alberto (11.5-14.5) % Plt Count (130-400) K/uL MPV (9.4-12.4) fL Immature Gran % (Auto) % Neut % (Auto) % Lymph % (Auto) % [place] % (Auto) % Eos % (Auto) % Baso % (Auto) % Neut # (Auto) (1.40-6.50) K/uL Lymph # (Auto) (1.2-3.4) K/uL [place] # (Auto) (0.11-0.59) K/uL Eos # (Auto) (0-0.50) K/uL Baso # (Auto) (0-0.2) K/uL Immature Gran # (Auto) (0.01-0.20) K/uL PT (9.0-12.0) Seconds INR (0.9-1.1) Sodium (136-145) mmol/L Potassium (3.5-5.1) mmol/L Chloride (98-107) mmol/L Carbon Dioxide (21-32) mmol/L Anion Gap (3-11) BUN (6-23) mg/dl Creatinine (0.6-1.4) mg/dl Est Cr Clr Drug Dosing ml/min Est GFR ( Amer) ml/min Est GFR (Non-Af Amer) ml/min BUN/Creatinine Ratio (10-20) Glucose (70-99(Fasting)) mg/dl POC Glucose 56 L* 44 L* 32 L* (70-99) mg/dl Estimat Average Glucose mg/dl Hemoglobin A1c (4.5-5.6) % Calcium (8.6-10.3) mg/dl Magnesium (1.7-2.4) mg/dl Total Bilirubin (0.2-1.0) mg/dl Direct Bilirubin (0-0.2) mg/dl AST (13-39) U/L ALT (7-52) U/L Alkaline Phosphatase (34-104) U/L Troponin I High Sens (0-20) pg/ml Total Protein (6.0-8.3) gm/dl Albumin (3.4-5.0) gm/dl Globulin (2.5-4.0) gm/dl Albumin/Globulin Ratio (0.9-2) Vitamin B12 (180-914) pg/ml Urine Opiates Screen (Neg) Ur Methadone, Qual (Neg) Urine Barbiturates (Neg) Ur Phencyclidine (PCP) (Neg) U Amphetamin/Meth Scrn (Neg) MDMA (Ecstasy) Screen (Neg) U Benzodiazepines Scrn (Neg) Ur Cocaine Metabolite (Neg) U Marijuana (THC) Screen (Neg) Ethyl Alcohol mg/dL (<10.0) mg/dl SARS-CoV-2 (PCR) (Negative) Influenza Type A (PCR) (Neg) Influenza Type B (PCR) (Neg) RSV (RT-PCR) (Neg) 09/24/22 09/24/22 09/24/22 Range/Units 07:24 07:23 05:19 WBC (4.8-10.8) K/ul RBC (4.70-6.10) M/uL Hgb (14.0-18.0) g/dl Hct (42.0-52.0) % MCV (80.0-100.0) fL MCH (25.0-34.0) pg MCHC (32.0-36.0) g/dL RDW Std Deviation (36.4-46.3) fL RDW Coeff of Alberto (11.5-14.5) % Plt Count (130-400) K/uL MPV (9.4-12.4) fL Immature Gran % (Auto) % Neut % (Auto) % Lymph % (Auto) % [place] % (Auto) % Eos % (Auto) % Baso % (Auto) % Neut # (Auto) (1.40-6.50) K/uL Lymph # (Auto) (1.2-3.4) K/uL [place] # (Auto) (0.11-0.59) K/uL Eos # (Auto) (0-0.50) K/uL Baso # (Auto) (0-0.2) K/uL Immature Gran # (Auto) (0.01-0.20) K/uL PT (9.0-12.0) Seconds INR (0.9-1.1) Sodium (136-145) mmol/L Potassium (3.5-5.1) mmol/L Chloride (98-107) mmol/L Carbon Dioxide (21-32) mmol/L Anion Gap (3-11) BUN (6-23) mg/dl Creatinine (0.6-1.4) mg/dl Est Cr Clr Drug Dosing ml/min Est GFR ( Amer) ml/min Est GFR (Non-Af Amer) ml/min BUN/Creatinine Ratio (10-20) Glucose (70-99(Fasting)) mg/dl POC Glucose 368 H* 335 H* (70-99) mg/dl Estimat Average Glucose 157 mg/dl Hemoglobin A1c 7.1 H (4.5-5.6) % Calcium (8.6-10.3) mg/dl Magnesium (1.7-2.4) mg/dl Total Bilirubin (0.2-1.0) mg/dl Direct Bilirubin (0-0.2) mg/dl AST (13-39) U/L ALT (7-52) U/L Alkaline Phosphatase (34-104) U/L Troponin I High Sens (0-20) pg/ml Total Protein (6.0-8.3) gm/dl Albumin (3.4-5.0) gm/dl Globulin (2.5-4.0) gm/dl Albumin/Globulin Ratio (0.9-2) Vitamin B12 (180-914) pg/ml Urine Opiates Screen (Neg) Ur Methadone, Qual (Neg) Urine Barbiturates (Neg) Ur Phencyclidine (PCP) (Neg) U Amphetamin/Meth Scrn (Neg) MDMA (Ecstasy) Screen (Neg) U Benzodiazepines Scrn (Neg) Ur Cocaine Metabolite (Neg) U Marijuana (THC) Screen (Neg) Ethyl Alcohol mg/dL (<10.0) mg/dl SARS-CoV-2 (PCR) (Negative) Influenza Type A (PCR) (Neg) Influenza Type B (PCR) (Neg) RSV (RT-PCR) (Neg) 09/24/22 09/24/22 09/24/22 Range/Units 05:19 05:19 05:19 WBC 4.15 L (4.8-10.8) K/ul RBC 3.88 L (4.70-6.10) M/uL Hgb 12.2 L (14.0-18.0) g/dl Hct 36.4 L (42.0-52.0) % MCV 93.8 (80.0-100.0) fL MCH 31.4 (25.0-34.0) pg MCHC 33.5 (32.0-36.0) g/dL RDW Std Deviation 42.5 (36.4-46.3) fL RDW Coeff of Alberto 12.3 (11.5-14.5) % Plt Count 163 (130-400) K/uL MPV 11.3 (9.4-12.4) fL Immature Gran % (Auto) 0.2 % Neut % (Auto) 51.9 % Lymph % (Auto) 33.7 % [place] % (Auto) 11.8 % Eos % (Auto) 1.4 % Baso % (Auto) 1.0 % Neut # (Auto) 2.15 (1.40-6.50) K/uL Lymph # (Auto) 1.40 (1.2-3.4) K/uL [place] # (Auto) 0.49 (0.11-0.59) K/uL Eos # (Auto) 0.06 (0-0.50) K/uL Baso # (Auto) 0.04 (0-0.2) K/uL Immature Gran # (Auto) 0.01 (0.01-0.20) K/uL PT (9.0-12.0) Seconds INR (0.9-1.1) Sodium 135 L (136-145) mmol/L Potassium 5.2 H D (3.5-5.1) mmol/L Chloride 104 (98-107) mmol/L Carbon Dioxide 28 (21-32) mmol/L Anion Gap 3 (3-11) BUN 28 H (6-23) mg/dl Creatinine 2.04 H D (0.6-1.4) mg/dl Est Cr Clr Drug Dosing 48.3 ml/min Est GFR ( Amer) 40.4 ml/min Est GFR (Non-Af Amer) 34.9 ml/min BUN/Creatinine Ratio 13.7 (10-20) Glucose 294 H (70-99(Fasting)) mg/dl POC Glucose (70-99) mg/dl Estimat Average Glucose mg/dl Hemoglobin A1c (4.5-5.6) % Calcium 7.8 L (8.6-10.3) mg/dl Magnesium 2.2 (1.7-2.4) mg/dl Total Bilirubin 0.8 (0.2-1.0) mg/dl Direct Bilirubin 0.2 (0-0.2) mg/dl AST 86 H (13-39) U/L ALT 78 H (7-52) U/L Alkaline Phosphatase 102 (34-104) U/L Troponin I High Sens (0-20) pg/ml Total Protein 5.6 L (6.0-8.3) gm/dl Albumin 2.5 L (3.4-5.0) gm/dl Globulin (2.5-4.0) gm/dl Albumin/Globulin Ratio (0.9-2) Vitamin B12 517 (180-914) pg/ml Urine Opiates Screen (Neg) Ur Methadone, Qual (Neg) Urine Barbiturates (Neg) Ur Phencyclidine (PCP) (Neg) U Amphetamin/Meth Scrn (Neg) MDMA (Ecstasy) Screen (Neg) U Benzodiazepines Scrn (Neg) Ur Cocaine Metabolite (Neg) U Marijuana (THC) Screen (Neg) Ethyl Alcohol mg/dL (<10.0) mg/dl SARS-CoV-2 (PCR) (Negative) Influenza Type A (PCR) (Neg) Influenza Type B (PCR) (Neg) RSV (RT-PCR) (Neg) 09/23/22 09/23/22 09/23/22 Range/Units 22:38 20:23 20:04 WBC (4.8-10.8) K/ul RBC (4.70-6.10) M/uL Hgb (14.0-18.0) g/dl Hct (42.0-52.0) % MCV (80.0-100.0) fL MCH (25.0-34.0) pg MCHC (32.0-36.0) g/dL RDW Std Deviation (36.4-46.3) fL RDW Coeff of Alberto (11.5-14.5) % Plt Count (130-400) K/uL MPV (9.4-12.4) fL Immature Gran % (Auto) % Neut % (Auto) % Lymph % (Auto) % [place] % (Auto) % Eos % (Auto) % Baso % (Auto) % Neut # (Auto) (1.40-6.50) K/uL Lymph # (Auto) (1.2-3.4) K/uL [place] # (Auto) (0.11-0.59) K/uL Eos # (Auto) (0-0.50) K/uL Baso # (Auto) (0-0.2) K/uL Immature Gran # (Auto) (0.01-0.20) K/uL PT (9.0-12.0) Seconds INR (0.9-1.1) Sodium (136-145) mmol/L Potassium (3.5-5.1) mmol/L Chloride (98-107) mmol/L Carbon Dioxide (21-32) mmol/L Anion Gap (3-11) BUN (6-23) mg/dl Creatinine (0.6-1.4) mg/dl Est Cr Clr Drug Dosing ml/min Est GFR ( Amer) ml/min Est GFR (Non-Af Amer) ml/min BUN/Creatinine Ratio (10-20) Glucose (70-99(Fasting)) mg/dl POC Glucose 244 H 209 H (70-99) mg/dl Estimat Average Glucose mg/dl Hemoglobin A1c (4.5-5.6) % Calcium (8.6-10.3) mg/dl Magnesium (1.7-2.4) mg/dl Total Bilirubin (0.2-1.0) mg/dl Direct Bilirubin (0-0.2) mg/dl AST (13-39) U/L ALT (7-52) U/L Alkaline Phosphatase (34-104) U/L Troponin I High Sens (0-20) pg/ml Total Protein (6.0-8.3) gm/dl Albumin (3.4-5.0) gm/dl Globulin (2.5-4.0) gm/dl Albumin/Globulin Ratio (0.9-2) Vitamin B12 (180-914) pg/ml Urine Opiates Screen (Neg) Ur Methadone, Qual (Neg) Urine Barbiturates (Neg) Ur Phencyclidine (PCP) (Neg) U Amphetamin/Meth Scrn (Neg) MDMA (Ecstasy) Screen (Neg) U Benzodiazepines Scrn (Neg) Ur Cocaine Metabolite (Neg) U Marijuana (THC) Screen (Neg) Ethyl Alcohol mg/dL (<10.0) mg/dl SARS-CoV-2 (PCR) NEGATIVE (Negative) Influenza Type A (PCR) Negative (Neg) Influenza Type B (PCR) Negative (Neg) RSV (RT-PCR) Negative (Neg) 09/23/22 09/23/22 09/23/22 Range/Units 16:57 15:36 15:36 WBC (4.8-10.8) K/ul RBC (4.70-6.10) M/uL Hgb (14.0-18.0) g/dl Hct (42.0-52.0) % MCV (80.0-100.0) fL MCH (25.0-34.0) pg MCHC (32.0-36.0) g/dL RDW Std Deviation (36.4-46.3) fL RDW Coeff of Alberto (11.5-14.5) % Plt Count (130-400) K/uL MPV (9.4-12.4) fL Immature Gran % (Auto) % Neut % (Auto) % Lymph % (Auto) % [place] % (Auto) % Eos % (Auto) % Baso % (Auto) % Neut # (Auto) (1.40-6.50) K/uL Lymph # (Auto) (1.2-3.4) K/uL [place] # (Auto) (0.11-0.59) K/uL Eos # (Auto) (0-0.50) K/uL Baso # (Auto) (0-0.2) K/uL Immature Gran # (Auto) (0.01-0.20) K/uL PT 10.5 (9.0-12.0) Seconds INR 1.0 (0.9-1.1) Sodium (136-145) mmol/L Potassium (3.5-5.1) mmol/L Chloride (98-107) mmol/L Carbon Dioxide (21-32) mmol/L Anion Gap (3-11) BUN (6-23) mg/dl Creatinine (0.6-1.4) mg/dl Est Cr Clr Drug Dosing ml/min Est GFR ( Amer) ml/min Est GFR (Non-Af Amer) ml/min BUN/Creatinine Ratio (10-20) Glucose (70-99(Fasting)) mg/dl POC Glucose (70-99) mg/dl Estimat Average Glucose mg/dl Hemoglobin A1c (4.5-5.6) % Calcium (8.6-10.3) mg/dl Magnesium (1.7-2.4) mg/dl Total Bilirubin (0.2-1.0) mg/dl Direct Bilirubin (0-0.2) mg/dl AST (13-39) U/L ALT (7-52) U/L Alkaline Phosphatase (34-104) U/L Troponin I High Sens (0-20) pg/ml Total Protein (6.0-8.3) gm/dl Albumin (3.4-5.0) gm/dl Globulin (2.5-4.0) gm/dl Albumin/Globulin Ratio (0.9-2) Vitamin B12 (180-914) pg/ml Urine Opiates Screen Neg (Neg) Ur Methadone, Qual Neg (Neg) Urine Barbiturates Neg (Neg) Ur Phencyclidine (PCP) Neg (Neg) U Amphetamin/Meth Scrn Neg (Neg) MDMA (Ecstasy) Screen Neg (Neg) U Benzodiazepines Scrn Neg (Neg) Ur Cocaine Metabolite Neg (Neg) U Marijuana (THC) Screen Neg (Neg) Ethyl Alcohol mg/dL 82.9 H (<10.0) mg/dl SARS-CoV-2 (PCR) (Negative) Influenza Type A (PCR) (Neg) Influenza Type B (PCR) (Neg) RSV (RT-PCR) (Neg) 09/23/22 09/23/22 Range/Units 15:36 15:36 WBC 4.45 L (4.8-10.8) K/ul RBC 4.10 L (4.70-6.10) M/uL Hgb 13.0 L (14.0-18.0) g/dl Hct 36.8 L (42.0-52.0) % MCV 89.8 (80.0-100.0) fL MCH 31.7 (25.0-34.0) pg MCHC 35.3 (32.0-36.0) g/dL RDW Std Deviation 40.3 (36.4-46.3) fL RDW Coeff of Alberto 12.3 (11.5-14.5) % Plt Count 174 (130-400) K/uL MPV 10.7 (9.4-12.4) fL Immature Gran % (Auto) 0.2 % Neut % (Auto) 63.1 % Lymph % (Auto) 27.9 % [place] % (Auto) 7.4 % Eos % (Auto) 0.7 % Baso % (Auto) 0.7 % Neut # (Auto) 2.81 (1.40-6.50) K/uL Lymph # (Auto) 1.24 (1.2-3.4) K/uL [place] # (Auto) 0.33 (0.11-0.59) K/uL Eos # (Auto) 0.03 (0-0.50) K/uL Baso # (Auto) 0.03 (0-0.2) K/uL Immature Gran # (Auto) 0.01 (0.01-0.20) K/uL PT (9.0-12.0) Seconds INR (0.9-1.1) Sodium 129 L (136-145) mmol/L Potassium 3.6 (3.5-5.1) mmol/L Chloride 97 L (98-107) mmol/L Carbon Dioxide 21 (21-32) mmol/L Anion Gap 11 (3-11) BUN 26 H (6-23) mg/dl Creatinine 1.73 H (0.6-1.4) mg/dl Est Cr Clr Drug Dosing 57.0 ml/min Est GFR ( Amer) 49.3 ml/min Est GFR (Non-Af Amer) 42.6 ml/min BUN/Creatinine Ratio 15.0 (10-20) Glucose 347 H* (70-99(Fasting)) mg/dl POC Glucose (70-99) mg/dl Estimat Average Glucose mg/dl Hemoglobin A1c (4.5-5.6) % Calcium 8.1 L (8.6-10.3) mg/dl Magnesium 1.5 L (1.7-2.4) mg/dl Total Bilirubin 0.6 (0.2-1.0) mg/dl Direct Bilirubin (0-0.2) mg/dl AST 90 H (13-39) U/L ALT 88 H (7-52) U/L Alkaline Phosphatase 113 H (34-104) U/L Troponin I High Sens 18.8 (0-20) pg/ml Total Protein 6.3 (6.0-8.3) gm/dl Albumin 2.9 L (3.4-5.0) gm/dl Globulin 3.4 (2.5-4.0) gm/dl Albumin/Globulin Ratio 0.9 (0.9-2) Vitamin B12 (180-914) pg/ml Urine Opiates Screen (Neg) Ur Methadone, Qual (Neg) Urine Barbiturates (Neg) Ur Phencyclidine (PCP) (Neg) U Amphetamin/Meth Scrn (Neg) MDMA (Ecstasy) Screen (Neg) U Benzodiazepines Scrn (Neg) Ur Cocaine Metabolite (Neg) U Marijuana (THC) Screen (Neg) Ethyl Alcohol mg/dL (<10.0) mg/dl SARS-CoV-2 (PCR) (Negative) Influenza Type A (PCR) (Neg) Influenza Type B (PCR) (Neg) RSV (RT-PCR) (Neg) Medications Administered Current Inpatient Medications Amlodipine Besylate (Amlodipine Besylate 5 Mg Tab) 5 mg PO BID LUCINDA Stop: 10/23/22 22:10 Last Admin: 09/23/22 22:55 Dose: 5 mg Aspirin (Aspirin 81 Mg Chew) 81 mg PO DAILY [facility]IN[facility] Stop: 10/24/22 08:59 Atorvastatin Calcium (Atorvastatin 40 Mg Tab) 80 mg PO QAM [facility] Stop: 10/24/22 08:59 Buprenorphine/Naloxone (Buprenorphine/Naloxone 8/2 Mg Tab) 1 tab SL BID LUCINDA Stop: 10/23/22 22:10 Last Admin: 09/23/22 22:35 Dose: 1 tab Carvedilol (Carvedilol 6.25 Mg Tab) 6.25 mg PO BID [facility] Stop: 10/23/22 22:10 Last Admin: 09/23/22 22:55 Dose: 6.25 mg Cyanocobalamin (Cyanocobalamin (B-12) 500 Mcg Tablet) 1,000 mcg PO DAILY LUCINDA Stop: 10/24/22 08:59 Dextrose (Dextrose 50% 50 Ml Syringe) 25 - 50 ml IV UD PRN; Protocol PRN Reason: Hypoglycemia Protocol Stop: 10/23/22 22:10 Enoxaparin Sodium (Enoxaparin Inj 40 Mg/0.4 Ml Syr) 40 mg SQ QAM [facility] Stop: 10/24/22 08:59 Folic Acid (Folic Acid 1 Mg Tab) 1 mg PO QAM [facility] Stop: 10/24/22 08:59 Furosemide (Furosemide 40 Mg Tab) 40 mg PO HS [facility] Stop: 10/23/22 22:10 Last Admin: 09/23/22 22:55 Dose: 40 mg Gabapentin (Gabapentin 600 Mg Tab) 600 mg PO Q24H [facility] Stop: 09/27/22 12:01 Gabapentin (Gabapentin 600 Mg Tab) 600 mg PO Q12H [facility] Stop: 09/26/22 12:01 Gabapentin (Gabapentin 600 Mg Tab) 600 mg PO Q8H [facility] Stop: 09/25/22 14:01 Gabapentin (Gabapentin 600 Mg Tab) 600 mg PO Q6H [facility] Stop: 09/24/22 12:01 Last Admin: 09/24/22 05:47 Dose: 600 mg Glucagon (Glucagon For Inj 1 Mg Vial) 1 mg SQ UD PRN; Protocol PRN Reason: Hypoglycemia Protocol Stop: 10/23/22 22:10 Glucose (Glucose 10 Tab/Tube) 4 - 8 tab PO UD PRN; Protocol PRN Reason: Hypoglycemia Treatment Stop: 10/23/22 22:10 Glucose (Glucose 40% Gel 15 Gm Tube) 15 - 30 gm PO UD PRN; Protocol PRN Reason: Hypoglycemia Protocol Stop: 10/23/22 22:10 Sodium Chloride (Nss 1000ml) 1,000 mls @ 75 mls/hr IV .[id number] [facility] Stop: 10/23/22 22:10 Last Admin: 09/23/22 22:39 Dose: 75 mls/hr Insulin Aspart (Insulin Aspart Per Unit Charge) 0 units SC ACHS [facility] Stop: 10/23/22 22:10 Last Admin: 09/23/22 22:53 Dose: 4 units Labetalol HCl (Labetalol Hcl Iv 5 Mg/Ml 20ml) 10 mg IV Q4H PRN PRN Reason: Hypertension Stop: 10/23/22 22:10 Lidocaine (Lidocaine 5% 1 Patch) 1 patch TD DAILY [facility] Stop: 10/24/22 08:59 Lisinopril (Lisinopril 10 Mg Tab) 10 mg PO QAM [facility] Stop: 10/24/22 08:59 Lorazepam (Lorazepam 2 Mg/1 Ml Vial) 3 mg IV ONCE PRN; Protocol PRN Reason: EtOH Withdrawal AWSS Score 10+ Lorazepam (Lorazepam 2 Mg/1 Ml Vial) 2 mg IV UD PRN; Protocol PRN Reason: EtOH Withdrawal AWSS Score 8,9 Stop: 10/23/22 22:10 Lorazepam (Lorazepam 2 Mg/1 Ml Vial) 1 mg IV UD PRN; Protocol PRN Reason: EtOH Withdrawal AWSS Score 6,7 Stop: 10/23/22 22:10 Miscellaneous (Remove Lidoderm Patch) 1 each N/A DAILY@2100 [facility] Stop: 10/23/22 20:59 Last Admin: 09/23/22 22:55 Dose: 1 each Miscellaneous (Remove Nicoderm Patch) 1 each N/A DAILY@0859 [facility] Stop: 10/24/22 08:58 Miscellaneous (Carbohydrates For Hypoglycemia ) 15 - 30 gm PO UD PRN PRN Reason: Hypoglycemia Protocol Stop: 10/23/22 22:10 Miscellaneous Information (Pharmacy Glycemic Mgmt Consult) 1 each N/A UD PRN PRN Reason: Consult Stop: 10/23/22 22:10 Nicotine (Nicotine 14 Mg/24 Hr Patch) 14 mg TD QAM [facility] Stop: 10/24/22 08:59 Nitroglycerin (Nitroglycerin Sl 0.4 Mg/Tab Tab) 0.4 mg SL Q5M PRN PRN Reason: Chest Pain Stop: 10/23/22 22:10 Polyethylene Glycol (Polyethylene (Miralax) 17 Gm Pack) 17 gm PO DAILY PRN PRN Reason: Constipation Stop: 10/23/22 22:10 Thiamine HCl (Thiamine Hcl 100 Mg Tab) 100 mg PO DAILY [facility] Stop: 10/24/22 08:59
[2022-09-24 07:34] LABS: Estimated Average Glucose 157 mg/dl; Hemoglobin A1C 7.1 % (4.5-5.6)
--- NOTE | 2022-09-24 07:35 | Ultrasound Report ---
BILATERAL LOWER EXTREMITY VENOUS DOPPLER HISTORY: Acute pain and swelling of the lower legs lower ext edema. dvt? COMPARISON STUDY: None. FINDINGS: There is normal compressibility, flow, and augmentation within the bilateral lower extremit y deep venous systems. IMPRESSION: No DVT within the right or left lower extremity. ACT 112: Negative or not required by law. Electronically signed by: Suhas Ramos M.D. 09/24/2022 7:34 AM
[2022-09-24] MEDS: INSULIN ASPART PER UNIT CHARGE SC SCH ×4 (07:43→20:07)
[2022-09-24] MEDS: BUPRENORPHINE/NALOXONE 8/2 MG TAB SL SCH ×2 (08:33→20:00)
[2022-09-24] MEDS: ENOXAPARIN INJ 40 MG/0.4 ML SYR SQ SCH (08:34)
[2022-09-24] MEDS: CYANOCOBALAMIN (B-12) 500 MCG TABLET PO SCH (08:35)
[2022-09-24] MEDS: FOLIC ACID 1 MG TAB PO SCH (08:35)
[2022-09-24] MEDS: THIAMINE HCL 100 MG TAB PO SCH (08:35)
[2022-09-24] MEDS: lisinopril 10 MG TAB PO SCH (08:35)
[2022-09-24] MEDS: ATORVASTATIN 40 MG TAB PO SCH (08:36)
[2022-09-24] MEDS: carvediloL 6.25 MG TAB PO SCH ×2 (08:36→20:01)
[2022-09-24] MEDS: ASPIRIN 81 MG CHEW PO SCH (08:36)
[2022-09-24] MEDS: amLODIPine BESYLATE 5 MG TAB PO SCH ×2 (08:37→20:01)
[2022-09-24] MEDS: LIDOCAINE 5% 1 PATCH TD SCH (08:37)
[2022-09-24] MEDS: NICOTINE 14 MG/24 HR PATCH TD SCH (08:44)
[2022-09-24] MEDS ORDERED: LANTUS PER UNIT CHARGE SC SCH (09:00)
[2022-09-24] MEDS: CARBOHYDRATES FOR HYPOGLYCEMIA PO PRN ×3 (10:16→10:46)
--- NOTE | 2022-09-24 10:18 | Nephrology Consultation ---
Date of Consultation September 24, 2022 Assessment & Plan (1) CKD (chronic kidney disease): Difficult to predict his baseline, he had multiple admissions in the past with acute renal failure, some of which were at the point of almost requiring dialysis, however I suspected to be somewhere in mid to late one's At the moment he appears euvolemic and is eating and drinking, will DC IV fluids. -Fluctuations in serum creatinine secondary to hemodynamic instability due to variable blood pressure. -Continue on furosemide 40 mg daily -Daily BMP, if his serum creatinine rises further. Stop lisinopril. -Daily input and output. -Potassium is raised, would give him 1 dose of Lokelma and stop multivitamins with minerals(I think this has potassium) (2) Hyponatremia: Likely combination of beer potomania, ONDINA and dilutional secondary to high sugars -Blood sugar control -Continue furosemide as above - (3) Hypertensive urgency: - Blood pressure is within target with his home medication -If his creatinine rises, DC lisinopril (4) Alcohol abuse: As per primary (5) CHI (closed head injury): History of Present Illness Reason for Consultation: Hypertensive urgency,ONDINA on CKD Attending Physician: Germain Munoz MD History of Present Illness 57-year-old male with past medical history of alcohol abuse, multiple substance abuse, noncompliance with medication and multiple admissions with history of alcoholic seizures, history of CAD SP stent, diabetes, hypertension.He presented to the ER with a history of fall at home and was found to have hypertensive urgency and symptoms of alcohol withdrawal. CT head and cervical spine was normal. He was given IV fluids and started on gabapentin alcohol withdrawal protocol with IV Ativan, home blood pressure medicines were restarted(he has not been taking this for some time" I ran out of it", He is on amlodipine Coreg l isinopril and Lasix. Sodium was 129, but as his sugars were high , when corrected this is in the nor mal range. Magnesium was low which was replaced. On admission his creatinine was 1.7, his baseline creatinine is difficult to predict at this has been very variable, but most likely in early to mid ones. On my exam, he was comfortable but appeared confused. He was able to answer a few of my questions but appeared Vague at times. Blood pressure has been within target range after the start of his home medications Allergies Allergy/AdvReac Type Severity Reaction Status Date / Time pollen extracts Allergy Intermediate SNEEZING, Verified 09/23/22 16:19 CONGESTION Home Medications Medication Instructions Recorded Confirmed Type buprenorphine 8 mg-naloxone 2 mg 1 tab sublingual BID 09/15/21 09/23/22 History sublingual tablet atorvastatin 80 mg tablet 80 mg PO QAM 10/25/21 09/23/22 History folic acid 1 mg tablet 1 mg PO QAM 10/25/21 09/23/22 History aspirin 81 mg chewable tablet 81 mg PO DAILY 06/27/22 09/23/22 History empagliflozin 10 mg tablet 10 mg PO DAILY 06/27/22 09/23/22 History (Jardiance) furosemide 40 mg tablet 40 mg PO HS 06/27/22 09/23/22 History glipizide 10 mg tablet, extended 10 mg PO DAILY 06/27/22 09/23/22 History release 24 hr amlodipine 5 mg tablet (Norvasc) 5 mg PO BID #60 tabs 07/06/22 09/23/22 Rx lisinopril 10 mg tablet 10 mg PO QAM #30 tabs 07/06/22 09/23/22 Rx carvedilol 12.5 mg tablet 6.25 mg PO BID 09/23/22 09/23/22 History cyanocobalamin (vitamin B-12) 1,000 mcg PO DAILY 09/23/22 09/23/22 History 1,000 mcg tablet (Vitamin B-12) nitroglycerin 0.4 mg sublingual 0.4 mg sublingual DIRECTED PRN 09/23/22 09/23/22 History tablet Chest Pain thiamine HCl (vitamin B1) 100 mg 100 mg PO DAILY 09/23/22 09/23/22 History tablet (Vitamin B-1) Patient History Medical History ONDINA (acute kidney injury) Alcohol abuse Alcohol use disorder Alcohol use disorder, severe, dependence Alcohol withdrawal Alcohol withdrawal syndrome Bilateral edema of lower extremity Chronic anemia Diabetes mellitus type 2 with complications Discharge planning issues TONEY (dyspnea on exertion) TONEY (dyspnea on exertion) DVT prophylaxis Edema Elevated troponin HTN (hypertension) Hypomagnesemia Hypomagnesemia Ischemic cardiomyopathy Mood disorder Neuropathy NSTEMI (non-ST elevated myocardial infarction) Obesity CATALINO (obstructive sleep apnea) CATALINO (obstructive sleep apnea) Proteinuria Smoking Tobacco use disorder Type 2 diabetes mellitus Surgical History History of cardiac catheterization 1 ELIESER to proximal OM by Dr. Guerrero on 01/01/19 History of lymph node biopsy Family History Other Diabetes Heart disease Hypertension Social History Smoking Status: Current every day smoker Tobacco Type: Cigarettes Cigarettes Per Day: 1/2 pack a day; Second Hand Exposure: No; Do You Dip or Chew Tobacco: No; Hx Alcohol Use: Yes Alcohol type: hard liquor Alcohol type Comment: 1/2 gallon vodka a day Hx Substance Use: Yes Last Used Substance: Unknown Last Used Substance Other:: Used over the weekend Substance Use Type Other:: patient said "I've used it all" Preferred Language: Pashto Communication Ability: Effective Fabric Designer Required: No Beliefs That Will Affect Care: None marital status: Single Current Living Situation: Homeless Current Living Situation Comment: Living in car current occupational status: unemployed How many Children do You have: 2 Feels Safe at Home: Declines to Answer Assistive Devices: None Assistive Devices Comment: reading glasses Review of Systems Review of Systems: All systems reviewed & are unremarkable except as noted in HPI & below Physical Exam Physical Exam: GENERAL: A middle-aged white male who is awake and alert and oriented; however, he does not recall what happened prior to hospitalization. HEENT: Mucous membrane is moist. NECK: Supple. No jugular venous distention.. CHEST: Bilaterally clear to auscultation. Poor inspiratory effort. CARDIOVASCULAR: S1 and S2, regular. ABDOMEN: Soft, nontender. EXTREMITIES:Trace to 1+ edema. Results & Data Vital Signs (Past 12 Hours) Vital Signs Temp Pulse Pulse Resp BP BP Pulse Ox 09/24/22 09:47 67 09/24/22 08:13 36.5 C 73 19 126/89 97 09/24/22 07:24 36.3 C L 69 18 152/94 H 97 09/24/22 05:34 36.5 C 78 16 145/92 H 96 09/24/22 01:36 36.4 C L 75 18 154/91 H 96 09/23/22 22:07 80 09/23/22 22:19 09/23/22 22:07 36.7 C 80 16 207/114 H 96 O2 Del Method 09/24/22 09:47 09/24/22 08:13 Room Air 09/24/22 07:24 Room Air 09/24/22 05:34 Room Air 09/24/22 01:36 Room Air 09/23/22 22:07 09/23/22 22:19 Room Air 09/23/22 22:07 Room Air Laboratory Results 09/24/22 05:19 09/24/22 05:19
[2022-09-24] MEDS ORDERED: SODIUM ZIRCONIUM CYCLOSILICATE 10 GM PACKET PO ONE (11:00)
[2022-09-24] MEDS: SODIUM CHLORIDE 0.9% 1000ML 1,000 ML IV SCH (12:47)
[2022-09-24] MEDS: LABETALOL HCL IV 5 MG/ML 20ML IV PRN (19:36)
[2022-09-24] MEDS ORDERED: MELATONIN 3 MG TAB PO PRN (19:43)
[2022-09-24] MEDS: FUROSEMIDE 40 MG TAB PO SCH (20:01)
[2022-09-25] MEDS: SODIUM CHLORIDE 0.9% 1000ML 1,000 ML IV SCH (01:45)
[2022-09-25] MEDS: GABAPENTIN 600 MG TAB PO SCH ×3 (05:52→23:46)
[2022-09-25 06:23] LABS: Hematocrit (blood only) 30.7 % (42.0-52.0); Hemoglobin 10.5 g/dl (14.0-18.0); Mean Corpuscular Hemoglobin 31.9 pg (25.0-34.0); Mean Corpuscular Hgb Conc 34.2 g/dL (32.0-36.0); Mean Corpuscular Volume 93.3 fL (80.0-100.0); Mean Platelet Volume 11.3 fL (9.4-12.4); Platelet Count 131 K/uL (130-400); RDW Coefficient of Variation 12.4 % (11.5-14.5); RDW Standard Deviation 42.9 fL (36.4-46.3); Red Blood Count 3.29 M/uL (4.70-6.10); White Blood Count 3.91 K/ul (4.8-10.8)
[2022-09-25 06:53] LABS: Calcium 7.6 mg/dl (8.6-10.3); Creatinine Clr Calc Pharmacy 48.5 ml/min; Est GFR (African American) 41.4 ml/min; Est GFR (Non-African American) 35.7 ml/min; Magnesium 1.9 mg/dl (1.7-2.4); Phosphorus 3.5 mg/dl (2.5-4.9); Potassium 4.3 mmol/L (3.5-5.1)
[2022-09-25] MEDS: LABETALOL HCL IV 5 MG/ML 20ML IV PRN ×3 (07:21→19:54)
[2022-09-25] MEDS: LANTUS PER UNIT CHARGE SC SCH (08:29)
[2022-09-25] MEDS: INSULIN ASPART PER UNIT CHARGE SC SCH ×4 (08:30→21:57)
[2022-09-25] MEDS: BUPRENORPHINE/NALOXONE 8/2 MG TAB SL SCH ×2 (08:31→20:00)
[2022-09-25] MEDS: amLODIPine BESYLATE 5 MG TAB PO SCH ×2 (08:31→20:00)
[2022-09-25] MEDS: ATORVASTATIN 40 MG TAB PO SCH (08:32)
[2022-09-25] MEDS: ASPIRIN 81 MG CHEW PO SCH (08:32)
[2022-09-25] MEDS: carvediloL 6.25 MG TAB PO SCH ×2 (08:33→20:00)
[2022-09-25] MEDS: CYANOCOBALAMIN (B-12) 500 MCG TABLET PO SCH (08:33)
[2022-09-25] MEDS: ENOXAPARIN INJ 40 MG/0.4 ML SYR SQ SCH (08:33)
[2022-09-25] MEDS: LIDOCAINE 5% 1 PATCH TD SCH (08:34)
[2022-09-25] MEDS: FOLIC ACID 1 MG TAB PO SCH (08:34)
[2022-09-25] MEDS: THIAMINE HCL 100 MG TAB PO SCH (08:35)
[2022-09-25] MEDS: lisinopril 10 MG TAB PO SCH (08:35)
[2022-09-25] MEDS: NICOTINE 14 MG/24 HR PATCH TD SCH (08:40)
[2022-09-25] MEDS ORDERED: Nursing to Pharmacy Communication SCH (09:00)
--- NOTE | 2022-09-25 10:47 | Hospitalist Progress Note ---
Date of Service September 25, 2022 Assessment & Plan (1) CHI (closed head injury): Plan: 57-year-old male with PMH of alcohol abuse and multiple admissions history of alcohol seizures, ongoing tobacco abuse, history of CAD s/p stent, history of diabetes hypertension presents with fall at home and also found to have hypertensive urgency and alcohol withdrawal. Fall CT head is negative and cervical spine CT is negative We will monitor PT OT when stable. Alcohol abuse History of alcohol withdrawal seizures Continue home thiamine and folic acid Started on gabapentin alcohol withdrawal protocol IV Ativan as needed Close monitor. Hypertensive urgency Not taking his home medications for the last few days We will continue his home amlodipine, Coreg, lisinopril, Lasix We will place an IV labetalol as needed. Close monitor. Hyponatremia sodium of 129 Hyperkalemia - mild - pseudohyponatremia in setting of hyperglycemia Received gentle fluids on admission Possible beer Potomania Nephrology consulted- appreciate the input Hypomagnesemia replace and monitor Diabetes Hyperglycemia We will hold home p.o. medications Insulin sliding scale. Glycemic Pharmacy consulted. We will follow blood sugars closely. Lower extremity edema On Lasix which will be continued Dopplers negative for DVT History of CAD s/p stent Continue Coreg aspirin and statin. ONDINA on chronic kidney disease chronic kidney disease stage III Baseline creatinine unclear perhaps ~ 1.3. Pt presented w/ creatinine 1.7 -> 2 Received gentle fluids If worsening will hold Lasix and lisinopril Nephrology consulted - appreciate their input DVT prophylaxis - Lovenox Disposition - Monitor on telemetry CODE STATUS full code (2) Alcohol abuse: (3) Hypomagnesemia: (4) Alcohol withdrawal: (5) CKD (chronic kidney disease): (6) Hypertensive urgency: Admission and Anticipated Discharge Date Admission Date: September 23, 2022 Subjective Pt seen in follow up of hyponatremia, alcoholism, hypertensive urgency Currently sitting up in bed, in no acute distress, he is awake alert and answering simple questions appropriately. Initially reported that he could not remember being in the hospital here before, but now it is coming back to him. Denies any fevers chills chest pain shortness of breath or abdominal pain. He is using alcohol, and reports being homeless. Nephrology also following. Review of Systems Review of Systems: All systems reviewed & are unremarkable except as noted in Subjective Physical Exam Physical Exam: General- obese M in NAD Head- atraumatic Eyes- PERRL, EOMI, anicteric ENT- oropharynx clear Neck- supple, no JVD, no adenopathy Lungs- clear to auscultation b/l Heart- regular rhythm; no murmur Abdomen- normal bowel sounds, soft, nontender, + obese Extremities- pedal edema present Neuro- alert, oriented x 3; PERRL, no facial palsy; no dysarthria, moves e xtremities Skin- warm & dry Results & Data Results & Data Vital Signs (Past 12 Hours) Vital Signs Temp Pulse Pulse Resp BP BP Pulse Ox 09/25/22 08:06 88 09/25/22 07:36 67 151/83 H 09/25/22 07:21 67 171/101 H 09/25/22 07:04 36.6 C 67 20 171/101 H 96 09/25/22 03:28 36.5 C 69 18 164/91 H 96 09/25/22 02:50 75 09/24/22 22:59 36.4 C L 75 20 156/85 H 98 O2 Del Method 09/25/22 08:06 09/25/22 07:36 09/25/22 07:21 09/25/22 07:04 Room Air 09/25/22 03:28 Room Air 09/25/22 02:50 09/24/22 22:59 Room Air Laboratory Results 09/25/22 09/25/22 09/25/22 Range/Units 07:21 05:19 05:19 WBC 3.91 L (4.8-10.8) K/ul RBC 3.29 L (4.70-6.10) M/uL Hgb 10.5 L (14.0-18.0) g/dl Hct 30.7 L (42.0-52.0) % MCV 93.3 (80.0-100.0) fL MCH 31.9 (25.0-34.0) pg MCHC 34.2 (32.0-36.0) g/dL RDW Std Deviation 42.9 (36.4-46.3) fL RDW Coeff of Alberto 12.4 (11.5-14.5) % Plt Count 131 (130-400) K/uL MPV 11.3 (9.4-12.4) fL Sodium 132 L (136-145) mmol/L Potassium 4.3 (3.5-5.1) mmol/L Chloride 103 (98-107) mmol/L Carbon Dioxide 26 (21-32) mmol/L Anion Gap 3 (3-11) BUN 42 H (6-23) mg/dl Creatinine 2.00 H (0.6-1.4) mg/dl Est Cr Clr Drug Dosing 48.5 ml/min Est GFR ( Amer) 41.4 ml/min Est GFR (Non-Af Amer) 35.7 ml/min BUN/Creatinine Ratio 21.0 H (10-20) Glucose 234 H (70-99(Fasting)) mg/dl POC Glucose 234 H (70-99) mg/dl Calcium 7.6 L (8.6-10.3) mg/dl Phosphorus 3.5 (2.5-4.9) mg/dl Magnesium 1.9 (1.7-2.4) mg/dl 09/24/22 09/24/22 09/24/22 Range/Units 20:03 16:23 11:22 WBC (4.8-10.8) K/ul RBC (4.70-6.10) M/uL Hgb (14.0-18.0) g/dl Hct (42.0-52.0) % MCV (80.0-100.0) fL MCH (25.0-34.0) pg MCHC (32.0-36.0) g/dL RDW Std Deviation (36.4-46.3) fL RDW Coeff of Alberto (11.5-14.5) % Plt Count (130-400) K/uL MPV (9.4-12.4) fL Sodium (136-145) mmol/L Potassium (3.5-5.1) mmol/L Chloride (98-107) mmol/L Carbon Dioxide (21-32) mmol/L Anion Gap (3-11) BUN (6-23) mg/dl Creatinine (0.6-1.4) mg/dl Est Cr Clr Drug Dosing ml/min Est GFR ( Amer) ml/min Est GFR (Non-Af Amer) ml/min BUN/Creatinine Ratio (10-20) Glucose (70-99(Fasting)) mg/dl POC Glucose 199 H 231 H 137 H (70-99) mg/dl Calcium (8.6-10.3) mg/dl Phosphorus (2.5-4.9) mg/dl Magnesium (1.7-2.4) mg/dl 09/24/22 09/24/22 09/24/22 Range/Units 11:03 11:01 10:47 WBC (4.8-10.8) K/ul RBC (4.70-6.10) M/uL Hgb (14.0-18.0) g/dl Hct (42.0-52.0) % MCV (80.0-100.0) fL MCH (25.0-34.0) pg MCHC (32.0-36.0) g/dL RDW Std Deviation (36.4-46.3) fL RDW Coeff of Alberto (11.5-14.5) % Plt Count (130-400) K/uL MPV (9.4-12.4) fL Sodium (136-145) mmol/L Potassium (3.5-5.1) mmol/L Chloride (98-107) mmol/L Carbon Dioxide (21-32) mmol/L Anion Gap (3-11) BUN (6-23) mg/dl Creatinine (0.6-1.4) mg/dl Est Cr Clr Drug Dosing ml/min Est GFR ( Amer) ml/min Est GFR (Non-Af Amer) ml/min BUN/Creatinine Ratio (10-20) Glucose (70-99(Fasting)) mg/dl POC Glucose 45 L* 44 L* 56 L* (70-99) mg/dl Calcium (8.6-10.3) mg/dl Phosphorus (2.5-4.9) mg/dl Magnesium (1.7-2.4) mg/dl Medications Administered Current Inpatient Medications Amlodipine Besylate (Amlodipine Besylate 5 Mg Tab) 5 mg PO BID LUCINDA Stop: 10/23/22 22:10 Last Admin: 09/25/22 08:31 Dose: 5 mg Aspirin (Aspirin 81 Mg Chew) 81 mg PO DAILY LUCINDA Stop: 10/24/22 08:59 Last Admin: 09/25/22 08:32 Dose: 81 mg Atorvastatin Calcium (Atorvastatin 40 Mg Tab) 80 mg PO QAM LUCINDA Stop: 10/24/22 08:59 Last Admin: 09/25/22 08:32 Dose: 80 mg Buprenorphine/Naloxone (Buprenorphine/Naloxone 8/2 Mg Tab) 1 tab SL BID LUCINDA Stop: 10/23/22 22:10 Last Admin: 09/25/22 08:31 Dose: 1 tab Carvedilol (Carvedilol 6.25 Mg Tab) 6.25 mg PO BID LUCINDA Stop: 10/23/22 22:10 Last Admin: 09/25/22 08:33 Dose: 6.25 mg Cyanocobalamin (Cyanocobalamin (B-12) 500 Mcg Tablet) 1,000 mcg PO DAILY LUCINDA Stop: 10/24/22 08:59 Last Admin: 09/25/22 08:33 Dose: 1,000 mcg Dextrose (Dextrose 50% 50 Ml Syringe) 25 - 50 ml IV UD PRN; Protocol PRN Reason: Hypoglycemia Protocol Stop: 10/23/22 22:10 Last Admin: 09/24/22 11:07 Dose: 50 ml Enoxaparin Sodium (Enoxaparin Inj 40 Mg/0.4 Ml Syr) 40 mg SQ QAM LUCINDA Stop: 10/24/22 08:59 Last Admin: 09/25/22 08:33 Dose: 40 mg Folic Acid (Folic Acid 1 Mg Tab) 1 mg PO QAM LUCINDA Stop: 10/24/22 08:59 Last Admin: 09/25/22 08:34 Dose: 1 mg Furosemide (Furosemide 40 Mg Tab) 40 mg PO HS LUCINDA Stop: 10/23/22 22:10 Last Admin: 09/24/22 20:01 Dose: 40 mg Gabapentin (Gabapentin 600 Mg Tab) 600 mg PO Q24H LUCINDA Stop: 09/27/22 12:01 Gabapentin (Gabapentin 600 Mg Tab) 600 mg PO Q12H LUCINDA Stop: 09/26/22 12:01 Gabapentin (Gabapentin 600 Mg Tab) 600 mg PO Q8H LUCINDA Stop: 09/25/22 14:01 Last Admin: 09/25/22 05:52 Dose: 600 mg Glucagon (Glucagon For Inj 1 Mg Vial) 1 mg SQ UD PRN; Protocol PRN Reason: Hypoglycemia Protocol Stop: 10/23/22 22:10 Glucose (Glucose 10 Tab/Tube) 4 - 8 tab PO UD PRN; Protocol PRN Reason: Hypoglycemia Treatment Stop: 10/23/22 22:10 Glucose (Glucose 40% Gel 15 Gm Tube) 15 - 30 gm PO UD PRN; Protocol PRN Reason: Hypoglycemia Protocol Stop: 10/23/22 22:10 Insulin Aspart (Insulin Aspart Per Unit Charge) 0 units SC ACHS [facility] Stop: 10/23/22 22:10 Last Admin: 09/25/22 08:30 Dose: 5 units Insulin Glargine (Lantus Per Unit Charge) 10 units SC QAM [facility] Stop: 10/25/22 08:59 Last Admin: 09/25/22 08:29 Dose: 10 units Labetalol HCl (Labetalol Hcl Iv 5 Mg/Ml 20ml) 10 mg IV Q4H PRN PRN Reason: Hypertension Stop: 10/23/22 22:10 Last Admin: 09/25/22 07:21 Dose: 10 mg Lidocaine (Lidocaine 5% 1 Patch) 1 patch TD DAILY [facility] Stop: 10/24/22 08:59 Last Admin: 09/25/22 08:34 Dose: 1 patch Lisinopril (L[facility]op[facility] 10 Mg Tab) [facility] [place] Stop: 10/24/22 08:59 Last Admin: 09/25/22 08:35 Dose: 10 mg Lorazepam (Lorazepam 2 Mg/1 Ml Vial) 3 mg IV ONCE PRN; Protocol PRN Reason: EtOH Withdrawal AWSS Score 10+ Lorazepam (Lorazepam 2 Mg/1 Ml Vial) 2 mg IV UD PRN; Protocol PRN Reason: EtOH Withdrawal AWSS Score 8,9 Stop: 10/23/22 22:10 Lorazepam (Lorazepam 2 Mg/1 Ml Vial) 1 mg IV UD PRN; Protocol PRN Reason: EtOH Withdrawal AWSS Score 6,7 Stop: 10/23/22 22:10 Last Admin: 09/24/22 08:59 Dose: 1 mg Melatonin (Melatonin 3 Mg Tab) 3 mg PO HS PRN PRN Reason: Sleep Stop: 10/24/22 19:42 Last Admin: 09/24/22 21:14 Dose: 3 mg Miscellaneous (Remove Lidoderm Patch) 1 each N/A DAILY@2100 [facility] Stop: 10/23/22 20:59 Last Admin: 09/24/22 20:02 Dose: 1 each Miscellaneous (Remove Nicoderm Patch) 1 each N/A DAILY@0859 [facility] Stop: 10/24/22 08:58 Last Admin: 09/25/22 08:39 Dose: 1 each Miscellaneous (Carbohydrates For Hypoglycemia ) 15 - 30 gm PO UD PRN PRN Reason: Hypoglycemia Protocol Stop: 10/23/22 22:10 Last Admin: 09/24/22 10:46 Dose: 30 gm Miscellaneous Information (Pharmacy Glycemic Mgmt Consult) 1 each N/A UD PRN PRN Reason: Consult Stop: 10/23/22 22:10 Nicotine (Nicotine 14 Mg/24 Hr Patch) 14 mg TD QAM [facility] Stop: 10/24/22 08:59 Last Admin: 09/25/22 08:40 Dose: 14 mg Nitroglycerin (Nitroglycerin Sl 0.4 Mg/Tab Tab) 0.4 mg SL Q5M PRN PRN Reason: Chest Pain Stop: 10/23/22 22:10 Polyethylene Glycol (Polyethylene (Miralax) 17 Gm Pack) 17 gm PO DAILY PRN PRN Reason: Constipation Stop: 10/23/22 22:10 Thiamine HCl (Thiamine Hcl 100 Mg Tab) 100 mg PO DAILY [facility] Stop: 10/24/22 08:59 Last Admin: 09/25/22 08:35 Dose: 100 mg
--- NOTE | 2022-09-25 11:12 | Nephrology Progress Note ---
Date of Service September 25, 2022 Assessment & Plan (1) CKD (chronic kidney disease): Plan: Difficult to predict his baseline, he had multiple admissions in the past with acute renal failure, some of which were at the point of almost requiring dialysis, however I suspected to be somewhere in mid to late one's At the moment he appears euvolemic and is eating and drinking, -Fluctuations in serum creatinine secondary to hemodynamic instability due to variable blood pressure. -Hw was still on Iv Fluids . d/c -ed today -Continue on furosemide 40 mg daily -Daily input and output. -He neeeds to f/u with Nephrology in 2-3 weeks post discharge with CMP. (2) Hyponatremia: Plan: Likely combination of beer potomania, ONDINA and dilutional secondary to high sugars -he was on Iv FLUIDS, d/c -ed today -Blood sugar control -Continue furosemide as above (3) Hypertensive urgency: Plan: -Blood pressure has been variable. - increase Amlodipine TO 10 MG if persistently > 140/90 l (4) Alcohol abuse: Plan: As per primary (5) CHI (closed head injury): Admission and Anticipated Discharge Date Admission Date: September 23, 2022 Subjective Pt seen in follow up of hyponatremia, alcoholism, hypertensive urgency Currently sitting up in bed, in no acute distress, he is awake alert.Appropriate behaviour Denies any fevers chills chest pain shortness of breath or abdominal pain. Review of Systems Review of Systems: All systems reviewed & are unremarkable except as noted in HPI & below Physical Exam Physical Exam: GENERAL: A middle-aged white male who is awake and alert and oriented; however, he does not recall what happened prior to hospitalization. HEENT: Mucous membrane is moist. NECK: Supple. No jugular venous distention.. CHEST: Bilaterally clear to auscultation. Poor inspiratory effort. CARDIOVASCULAR: S1 and S2, regular. ABDOMEN: Soft, nontender. EXTREMITIES:Trace to 1+ edema. Results & Data Vital Signs (Past 12 Hours) Vital Signs Temp Pulse Pulse Resp BP BP Pulse Ox 09/25/22 08:06 88 09/25/22 07:36 67 151/83 H 09/25/22 07:21 67 171/101 H 09/25/22 07:04 36.6 C 67 20 171/101 H 96 09/25/22 03:28 36.5 C 69 18 164/91 H 96 09/25/22 02:50 75 O2 Del Method 09/25/22 08:06 09/25/22 07:36 09/25/22 07:21 09/25/22 07:04 Room Air 09/25/22 03:28 Room Air 09/25/22 02:50 Laboratory Results 09/25/22 05:19 09/25/22 05:19
[2022-09-25] MEDS: FUROSEMIDE 40 MG TAB PO SCH (20:00)
[2022-09-26] MEDS: LABETALOL HCL IV 5 MG/ML 20ML IV PRN (04:08)
[2022-09-26 06:31] LABS: BUN Creatinine Ratio 19.8 (10-20); Calcium 8.2 mg/dl (8.6-10.3); Creatinine Clr Calc Pharmacy 45.7 ml/min; Est GFR (African American) 38.6 ml/min; Est GFR (Non-African American) 33.3 ml/min; Magnesium 1.8 mg/dl (1.7-2.4); Phosphorus 3.9 mg/dl (2.5-4.9); Potassium 4.4 mmol/L (3.5-5.1)
--- NOTE | 2022-09-26 08:15 | Hospitalist Progress Note ---
Date of Service September 26, 2022 Assessment & Plan (1) CHI (closed head injury): Plan: 57-year-old male with PMH of alcohol abuse and multiple admissions history of alcohol seizures, ongoing tobacco abuse, history of CAD s/p stent, history of diabetes hypertension presents with fall at home and also found to have hypertensive urgency and alcohol withdrawal. Fall CT head is negative and cervical spine CT is negative We will monitor PT OT when stable. Alcohol abuse History of alcohol withdrawal seizures Continue home thiamine and folic acid Started on gabapentin alcohol withdrawal protocol IV Ativan as needed Close monitor. Hypertensive urgency Not taking his home medications for the last few days We will continue his home amlodipine, Coreg, lisinopril, Lasix We will place an IV labetalol as needed. Close monitor. Nephrology following - no changes recommended a this time Hyponatremia sodium of 129 Hyperkalemia - mild - pseudohyponatremia in setting of hyperglycemia Received gentle fluids on admission Possible beer Potomania Nephrology consulted- appreciate the input Hypomagnesemia replace and monitor Diabetes Hyperglycemia We will hold home p.o. medications Insulin sliding scale. Glycemic Pharmacy consulted. We will follow blood sugars closely. Lower extremity edema On Lasix which will be continued Dopplers negative for DVT History of CAD s/p stent Continue Coreg aspirin and statin. ONDINA on chronic kidney disease chronic kidney disease stage III Baseline creatinine unclear perhaps ~ 1.3. Pt presented w/ creatinine 1.7 -> 2 Received gentle fluids If worsening will hold Lasix and lisinopril Nephrology consulted - appreciate their input DVT prophylaxis - Lovenox Disposition - Monitor on telemetry -> plan for etoh rehab CODE STATUS full code (2) Alcohol abuse: (3) Hypomagnesemia: (4) Alcohol withdrawal: (5) CKD (chronic kidney disease): (6) Hypertensive urgency: Admission and Anticipated Discharge Date Admission Date: September 23, 2022 Subjective Pt seen in follow up of hyponatremia, alcoholism, hypertensive urgency Currently sitting up in bed, in no acute distress, he is awake alert and answering simple questions appropriately. Reports feeling somewhat confused but improving. Denies any fevers chills chest pain shortness of breath or abdominal pain. He is using alcohol, and reports being homeless. Nephrology also following. Discussed with nephrology, no changes recommended at this time. CM involved as patient homeless and interested in rehab. Review of Systems Review of Systems: All systems reviewed & are unremarkable except as noted in Subjective Physical Exam Physical Exam: General- obese M in NAD Head- atraumatic Eyes- PERRL, EOMI, anicteric ENT- oropharynx clear Neck- supple, no JVD, no adenopathy Lungs- clear to auscultation b/l Heart- regular rhythm; no murmur Abdomen- normal bowel sounds, soft, nontender, + obese Extremities- pedal edema present Neuro- alert, oriented x 3; PERRL, no facial palsy; no dysarthria, moves extremities Skin- warm & dry Results & Data Results & Data Vital Signs (Past 12 Hours) Vital Signs Temp Pulse Pulse Resp BP BP BP 09/26/22 07:54 36.7 C 72 18 174/99 H 09/26/22 05:13 67 148/96 H 09/26/22 04:08 70 173/104 H 09/26/22 04:03 36.4 C L 70 20 173/104 H 09/25/22 23:43 36.9 C 71 22 156/93 H 09/25/22 22:00 75 165/84 H 09/25/22 22:35 75 09/25/22 22:09 165/84 H Pulse Ox O2 Del Method 09/26/22 07:54 97 Room Air 09/26/22 05:13 09/26/22 04:08 09/26/22 04:03 96 Room Air 09/25/22 23:43 96 Room Air 09/25/22 22:00 09/25/22 22:35 09/25/22 22:09 Laboratory Results 09/26/22 09/26/22 09/26/22 Range/Units 11:18 07:24 05:34 Sodium 134 L (136-145) mmol/L Potassium 4.4 (3.5-5.1) mmol/L Chloride 104 (98-107) mmol/L Carbon Dioxide 26 (21-32) mmol/L Anion Gap 4 (3-11) BUN 42 H (6-23) mg/dl Creatinine 2.12 H (0.6-1.4) mg/dl Est Cr Clr Drug Dosing 45.7 ml/min Est GFR ( Amer) 38.6 ml/min Est GFR (Non-Af Amer) 33.3 ml/min BUN/Creatinine Ratio 19.8 (10-20) Glucose 162 H (70-99(Fasting)) mg/dl POC Glucose 154 H 152 H (70-99) mg/dl Calcium 8.2 L (8.6-10.3) mg/dl Phosphorus 3.9 (2.5-4.9) mg/dl Magnesium 1.8 (1.7-2.4) mg/dl 09/25/22 09/25/22 Range/Units 20:57 16:17 Sodium (136-145) mmol/L Potassium (3.5-5.1) mmol/L Chloride (98-107) mmol/L Carbon Dioxide (21-32) mmol/L Anion Gap (3-11) BUN (6-23) mg/dl Creatinine (0.6-1.4) mg/dl Est Cr Clr Drug Dosing ml/min Est GFR ( Amer) ml/min Est GFR (Non-Af Amer) ml/min BUN/Creatinine Ratio (10-20) Glucose (70-99(Fasting)) mg/dl POC Glucose 126 H 171 H (70-99) mg/dl Calcium (8.6-10.3) mg/dl Phosphorus (2.5-4.9) mg/dl Magnesium (1.7-2.4) mg/dl Medications Administered Current Inpatient Medications Amlodipine Besylate (Amlodipine Besylate 5 Mg Tab) 5 mg PO BID [facility] Stop: 10/23/22 22:10 Last Admin: 09/26/22 09:03 Dose: 5 mg Aspirin (Aspirin 81 Mg Chew) 81 mg PO DAILY [facility] Stop: 10/24/22 08:59 Last Admin: 09/26/22 09:03 Dose: 81 mg Atorvastatin Calcium (Atorvastatin 40 Mg Tab) 80 mg PO QAM [facility] Stop: 10/24/22 08:59 Last Admin: 09/26/22 09:03 Dose: 80 mg Buprenorphine/Naloxone (Buprenorphine/Naloxone 8/2 Mg Tab) 1 tab SL BID [facility] Stop: 10/23/22 22:10 Last Admin: 09/26/22 09:04 Dose: 1 tab Carvedilol (Carvedilol 6.25 Mg Tab) 6.25 mg PO BID [facility] Stop: 10/23/22 22:10 Last Admin: 09/26/22 09:04 Dose: 6.25 mg Cyanocobalamin (Cyanocobalamin (B-12) 500 Mcg Tablet) 1,000 mcg PO DAILY [facility] Stop: 10/24/22 08:59 Last Admin: 09/26/22 09:04 Dose: 1,000 mcg Dextrose (Dextrose 50% 50 Ml Syringe) 25 - 50 ml IV UD PRN; Protocol PRN Reason: Hypoglycemia Protocol Stop: 10/23/22 22:10 Last Admin: 09/24/22 11:07 Dose: 50 ml Enoxaparin Sodium (Enoxaparin Inj 40 Mg/0.4 Ml Syr) 40 mg SQ QAM [facility] Stop: 10/24/22 08:59 Last Admin: 09/26/22 09:04 Dose: 40 mg Folic Acid (Folic Acid 1 Mg Tab) 1 mg PO QAM [facility] Stop: 10/24/22 08:59 Last Admin: 09/26/22 09:05 Dose: 1 mg Furosemide (Furosemide 40 Mg Tab) 40 mg PO HS [facility] Stop: 10/23/22 22:10 Last Admin: 09/25/22 20:00 Dose: 40 mg Gabapentin (Gabapentin 600 Mg Tab) 600 mg PO Q24H [facility] Stop: 09/27/22 12:01 Gabapentin (Gabapentin 600 Mg Tab) 600 mg PO Q12H [facility] Stop: 09/26/22 12:01 Last Admin: 09/25/22 23:46 Dose: 600 mg Glucagon (Glucagon For Inj 1 Mg Vial) 1 mg SQ UD PRN; Protocol PRN Reason: Hypoglycemia Protocol Stop: 10/23/22 22:10 Glucose (Glucose 10 Tab/Tube) 4 - 8 tab PO UD PRN; Protocol PRN Reason: Hypoglycemia Treatment Stop: 10/23/22 22:10 Glucose (Glucose 40% Gel 15 Gm Tube) 15 - 30 gm PO UD PRN; Protocol PRN Reason: Hypoglycemia Protocol Stop: 10/23/22 22:10 Insulin Aspart (Insulin Aspart Per Unit Charge) 0 units SC ACHS [facility] Stop: 10/23/22 22:10 Last Admin: 09/26/22 09:01 Dose: 5 units Insulin Glargine (Lantus Per Unit Charge) 10 units SC QAM [facility] Stop: 10/25/22 08:59 Last Admin: 09/26/22 09:05 Dose: 10 units Labetalol HCl (Labetalol Hcl Iv 5 Mg/Ml 20ml) 10 mg IV Q4H PRN PRN Reason: Hypertension Stop: 10/23/22 22:10 Last Admin: 09/26/22 04:08 Dose: 10 mg Lidocaine (Lidocaine 5% 1 Patch) 1 patch TD DAILY [facility] Stop: 10/24/22 08:59 Last Admin: 09/26/22 09:05 Dose: 1 patch Lisinopril (Lisinopril 10 Mg Tab) 10 mg PO QAM [facility] Stop: 10/24/22 08:59 Last Admin: 09/26/22 09:06 Dose: 10 mg Lorazepam (Lorazepam 2 Mg/1 Ml Vial) 3 mg IV ONCE PRN; Protocol PRN Reason: EtOH Withdrawal AWSS Score 10+ Lorazepam (Lorazepam 2 Mg/1 Ml Vial) 2 mg IV UD PRN; Protocol PRN Reason: EtOH Withdrawal AWSS Score 8,9 Stop: 10/23/22 22:10 Lorazepam (Lorazepam 2 Mg/1 Ml Vial) 1 mg IV UD PRN; Protocol PRN Reason: EtOH Withdrawal AWSS Score 6,7 Stop: 10/23/22 22:10 Last Admin: 09/24/22 08:59 Dose: 1 mg Melatonin (Melatonin 3 Mg Tab) 3 mg PO HS PRN PRN Reason: Sleep Stop: 10/24/22 19:42 Last Admin: 09/24/22 21:14 Dose: 3 mg Miscellaneous (Remove Lidoderm Patch) 1 each N/A DAILY@2100 [facility] Stop: 10/23/22 20:59 Last Admin: 09/25/22 21:58 Dose: 1 each Miscellaneous (Remove Nicoderm Patch) 1 each N/A DAILY@0859 [facility] Stop: 10/24/22 08:58 Last Admin: 09/26/22 09:01 Dose: 1 each Miscellaneous (Carbohydrates For Hypoglycemia ) 15 - 30 gm PO UD PRN PRN Reason: Hypoglycemia Protocol Stop: 10/23/22 22:10 Last Admin: 09/24/22 10:46 Dose: 30 gm Miscellaneous Information (Pharmacy Glycemic Mgmt Consult) 1 each N/A UD PRN PRN Reason: Consult Stop: 10/23/22 22:10 Nicotine (Nicotine 14 Mg/24 Hr Patch) 14 mg TD QAM [facility] Stop: 10/24/22 08:59 Last Admin: 09/26/22 09:06 Dose: 14 mg Nitroglycerin (Nitroglycerin Sl 0.4 Mg/Tab Tab) 0.4 mg SL Q5M PRN PRN Reason: Chest Pain Stop: 10/23/22 22:10 Polyethylene Glycol (Polyethylene (Miralax) 17 Gm Pack) 17 gm PO DAILY PRN PRN Reason: Constipation Stop: 10/23/22 22:10 Thiamine HCl (Thiamine Hcl 100 Mg Tab) 100 mg PO DAILY [facility] Stop: 10/24/22 08:59 Last Admin: 09/26/22 09:06 Dose: 100 mg
[2022-09-26] MEDS: INSULIN ASPART PER UNIT CHARGE SC SCH ×4 (09:01→20:26)
[2022-09-26] MEDS: ASPIRIN 81 MG CHEW PO SCH (09:03)
[2022-09-26] MEDS: amLODIPine BESYLATE 5 MG TAB PO SCH ×2 (09:03→20:20)
[2022-09-26] MEDS: ATORVASTATIN 40 MG TAB PO SCH (09:03)
[2022-09-26] MEDS: ENOXAPARIN INJ 40 MG/0.4 ML SYR SQ SCH (09:04)
[2022-09-26] MEDS: BUPRENORPHINE/NALOXONE 8/2 MG TAB SL SCH ×2 (09:04→20:23)
[2022-09-26] MEDS: carvediloL 6.25 MG TAB PO SCH ×2 (09:04→20:20)
[2022-09-26] MEDS: CYANOCOBALAMIN (B-12) 500 MCG TABLET PO SCH (09:04)
[2022-09-26] MEDS: FOLIC ACID 1 MG TAB PO SCH (09:05)
[2022-09-26] MEDS: LIDOCAINE 5% 1 PATCH TD SCH (09:05)
[2022-09-26] MEDS: LANTUS PER UNIT CHARGE SC SCH (09:05)
[2022-09-26] MEDS: lisinopril 10 MG TAB PO SCH (09:06)
[2022-09-26] MEDS: THIAMINE HCL 100 MG TAB PO SCH (09:06)
[2022-09-26] MEDS: NICOTINE 14 MG/24 HR PATCH TD SCH (09:06)
--- NOTE | 2022-09-26 09:56 | Nephrology Progress Note ---
Date of Service September 26, 2022 Assessment & Plan Admission and Anticipated Discharge Date Admission Date: September 23, 2022 Subjective Assessment & Plan (1) CKD (chronic kidney disease): Plan: Difficult to predict his baseline, he had multiple admissions in the past with acute renal failure, some of which were at the point of almost requiring dialysis, however I suspected to be somewhere in mid to late one's At the moment he appears euvolemic and is eating and drinking, -Fluctuations in serum creatinine secondary to hemodynamic instability due to variable blood pressure. Current creat would be regarded as about baseline -Continue furosemide 40 mg daily -Daily input and output. (2) Hyponatremia: Plan: Likely combination of beer potomania, ONDINA and dilutional secondary to high sugars -Blood sugar control -Continue furosemide as above (3) Hypertensive urgency: Plan: -Blood pressure has been variable. Would not try to control perfectly given Sig Limitations Outpt. Continue same meds for now but can raise the dose of Lisinopril further. Subjective Pt seen in follow up of hyponatremia, alcoholism, hypertensive urgency. Currently sitting up in bed, in no acute distress, he is awake alert.Appropriate behaviour Denies any fevers chills chest pain shortness of breath or abdominal pain. Review of Systems Review of Systems: All systems reviewed & are unremarkable except as noted in HPI & below Physical Exam Physical Exam: GENERAL: A middle-aged white male who is awake and alert and oriented; however, he does not recall what happened prior to hospitalization. HEENT: Mucous membrane is moist. NECK: Supple. No jugular venous distention.. CHEST: Bilaterally clear to auscultation. Poor inspiratory effort. CARDIOVASCULAR: S1 and S2, regular. ABDOMEN: Soft, nontender. EXTREMITIES:Trace to 1+ edema. Results & Data Vital Signs (Past 12 Hours) Vital Signs Temp Pulse Pulse Resp BP BP BP 09/26/22 07:54 36.7 C 72 18 174/99 H 09/26/22 05:13 67 148/96 H 09/26/22 04:08 70 173/104 H 09/26/22 04:03 36.4 C L 70 20 173/104 H 09/25/22 23:43 36.9 C 71 22 156/93 H 09/25/22 22:00 75 165/84 H 09/25/22 22:35 75 09/25/22 22:09 165/84 H Pulse Ox O2 Del Method 09/26/22 07:54 97 Room Air 09/26/22 05:13 09/26/22 04:08 09/26/22 04:03 96 Room Air 09/25/22 23:43 96 Room Air 09/25/22 22:00 09/25/22 22:35 09/25/22 22:09
[2022-09-26] MEDS: GABAPENTIN 600 MG TAB PO SCH (12:03)
--- NOTE | 2022-09-26 12:50 | Pharmacy Report ---
Pharmacy Glycemic Short Note 2 - Date of Service September 26, 2022 - Glycemic Short BSG Results (Last 24 hours): 09/25/22 09/25/22 09/26/22 16:17 20:57 05:34 Glucose 162 H POC Glucose 171 H 126 H 09/26/22 09/26/22 07:24 11:18 Glucose POC Glucose 152 H 154 H OUTPATIENT ANTIDIABETIC REGIMEN: * Glipizide 10 mg PO daily * Jardiance 10mg PO daily * HbA1c: 7.1% (09/24/22) ASSESSMENT: 09/26: * Patient received 24 units of insulin yesterday, 10 units basal + 14 units bolus. This was a 50% reduction in the previous days dose. BSGs ranged from 126 - 234 mg/dL. * Fasting BSG improved to 152 mg/dL this AM. Continue with current dosing regimen. No changes to in any stressors today. 09/24: * Mr Dillard is a 57yo diabetic M admitted d/t fall, EtOH withdrawal. * BSGs were elevated on admission (347 mg/dL), so patient was initiated on SQ basal/bolus regimen. * Pharmacy will continue to follow and make adjustments as indicated. PLAN FOR INPATIENT GLYCEMIC CONTROL: * Hold outpatient oral diabetes medications * Basal insulin * Lantus 10 units SC daily * Bolus insulin * NovoLog per scale ACHS or Q6hrs while NPO * Goal Range: Low 120 mg/dL - High 150 mg/dL * Correction Factor: 30 mg/dL/unit * Nutritional / Prandial insulin per carb ratio of 1 unit per 10 grams CHO consumed
[2022-09-26] MEDS: FUROSEMIDE 40 MG TAB PO SCH (20:19)
[2022-09-27 06:12] LABS: Hematocrit (blood only) 34.2 % (42.0-52.0); Hemoglobin 11.4 g/dl (14.0-18.0)
[2022-09-27 06:30] LABS: BUN Creatinine Ratio 27.7 (10-20); Calcium 8.4 mg/dl (8.6-10.3); Creatinine Clr Calc Pharmacy 43.1 ml/min; Est GFR (African American) 36.1 ml/min; Est GFR (Non-African American) 31.2 ml/min; Magnesium 1.7 mg/dl (1.7-2.4); Phosphorus 5.1 mg/dl (2.5-4.9); Potassium 4.9 mmol/L (3.5-5.1)
[2022-09-27] MEDS: INSULIN ASPART PER UNIT CHARGE SC SCH ×4 (08:25→20:24)
[2022-09-27] MEDS: ASPIRIN 81 MG CHEW PO SCH (08:29)
[2022-09-27] MEDS: amLODIPine BESYLATE 5 MG TAB PO SCH ×2 (08:29→20:26)
[2022-09-27] MEDS: BUPRENORPHINE/NALOXONE 8/2 MG TAB SL SCH ×2 (08:30→20:26)
[2022-09-27] MEDS: ATORVASTATIN 40 MG TAB PO SCH (08:30)
[2022-09-27] MEDS: carvediloL 6.25 MG TAB PO SCH ×2 (08:31→20:26)
[2022-09-27] MEDS: ENOXAPARIN INJ 40 MG/0.4 ML SYR SQ SCH (08:31)
[2022-09-27] MEDS: CYANOCOBALAMIN (B-12) 500 MCG TABLET PO SCH (08:31)
[2022-09-27] MEDS: MAGNESIUM OXIDE 400 MG TAB PO SCH ×2 (08:32→20:26)
[2022-09-27] MEDS: NICOTINE 14 MG/24 HR PATCH TD SCH (08:32)
[2022-09-27] MEDS: FOLIC ACID 1 MG TAB PO SCH (08:32)
[2022-09-27] MEDS: LIDOCAINE 5% 1 PATCH TD SCH (08:32)
[2022-09-27] MEDS: lisinopril 10 MG TAB PO SCH (08:32)
[2022-09-27] MEDS: THIAMINE HCL 100 MG TAB PO SCH (08:33)
--- NOTE | 2022-09-27 08:41 | Hospitalist Progress Note ---
Date of Service September 27, 2022 Assessment & Plan (1) CHI (closed head injury): Plan: 57-year-old male with PMH of alcohol abuse and multiple admissions history of alcohol seizures, ongoing tobacco abuse, history of CAD s/p stent, history of diabetes hypertension presents with fall at home and also found to have hypertensive urgency and alcohol withdrawal. Fall CT head is negative and cervical spine CT is negative We will monitor PT OT when stable. Alcohol abuse History of alcohol withdrawal seizures Continue home thiamine and folic acid Started on gabapentin alcohol withdrawal protocol IV Ativan as needed Close monitor. Hypertensive urgency Not taking his home medications for the last few days We will continue his home amlodipine, Coreg, lisinopril, Lasix IV labetalol as needed. Close monitor. Nephrology following -recommend to continue home medications, including Lasix 40 daily. Fluid restriction 1200. Hyponatremia sodium of 129 on admission Hyperkalemia - mild - pseudohyponatremia in setting of hyperglycemia on admission Received gentle fluids on admission Possible beer Potomania Nephrology consulted- appreciate their input. Current Na 130 Hypomagnesemia replace and monitor Diabetes Hyperglycemia We will hold home p.o. medications Insulin sliding scale. Glycemic Pharmacy consulted. We will follow blood sugars closely. Lower extremity edema On Lasix which will be continued Dopplers negative for DVT History of CAD s/p stent Continue Coreg aspirin and statin. ONDINA on chronic kidney disease chronic kidney disease stage III Baseline creatinine unclear perhaps ~ 1.3. Pt presented w/ creatinine 1.7 -> 2 Received gentle fluids Nephrology consulted - appreciate their input DVT prophylaxis - Lovenox Disposition - Monitor on telemetry -> plan for etoh rehab CODE STATUS full code (2) Alcohol abuse: (3) Hypomagnesemia: (4) Alcohol withdrawal: (5) CKD (chronic kidney disease): (6) Hypertensive urgency: Admission and Anticipated Discharge Date Admission Date: September 23, 2022 Subjective Pt seen in follow up of hyponatremia, alcoholism, hypertensive urgency Currently sitting up in bed, in no acute distress, he is awake alert and answering simple questions appropriately. Denies any fevers chills chest pain shortness of breath or abdominal pain. He is using alcohol, and reports being homeless. Nephrology also following. Recommend to continue with furosemide and his other blood pressure medications. Fluid restriction 1200 cc daily. CM involved as patient homeless and interested in rehab. Review of Systems Review of Systems: All systems reviewed & are unremarkable except as noted in Subjective Physical Exam Physical Exam: General- obese M in NAD Head- atraumatic Eyes- PERRL, EOMI, anicteric ENT- oropharynx clear Neck- supple, no JVD, no adenopathy Lungs- clear to auscultation b/l Heart- regular rhythm; no murmur Abdomen- normal bowel sounds, soft, nontender, + obese Extremities- pedal edema present Neuro- alert, oriented x 3; PERRL, no facial palsy; no dysarthria, moves extremities Skin- warm & dry Results & Data Results & Data Vital Signs (Past 12 Hours) Vital Signs Temp Pulse Pulse Resp BP BP Pulse Ox 09/27/22 08:00 81 09/27/22 07:06 36.8 C 74 19 139/83 95 09/27/22 02:35 36.8 C 76 20 127/89 94 09/26/22 23:00 78 09/26/22 22:48 36.9 C 76 20 159/94 H 95 O2 Del Method 09/27/22 08:00 09/27/22 07:06 Room Air 09/27/22 02:35 Room Air 09/26/22 23:00 09/26/22 22:48 Room Air Laboratory Results 09/27/22 09/27/22 09/27/22 Range/Units 07:09 05:41 05:41 Hgb 11.4 L (14.0-18.0) g/dl Hct 34.2 L (42.0-52.0) % Sodium 130 L (136-145) mmol/L Potassium 4.9 (3.5-5.1) mmol/L Chloride 102 (98-107) mmol/L Carbon Dioxide 22 (21-32) mmol/L Anion Gap 6 (3-11) BUN 62 H D (6-23) mg/dl Creatinine 2.24 H (0.6-1.4) mg/dl Est Cr Clr Drug Dosing 43.1 ml/min Est GFR ( Amer) 36.1 ml/min Est GFR (Non-Af Amer) 31.2 ml/min BUN/Creatinine Ratio 27.7 H (10-20) Glucose 196 H (70-99(Fasting)) mg/dl POC Glucose 224 H (70-99) mg/dl Calcium 8.4 L (8.6-10.3) mg/dl Phosphorus 5.1 H (2.5-4.9) mg/dl Magnesium 1.7 (1.7-2.4) mg/dl 09/26/22 09/26/22 09/26/22 Range/Units 20:09 16:38 11:18 Hgb (14.0-18.0) g/dl Hct (42.0-52.0) % Sodium (136-145) mmol/L Potassium (3.5-5.1) mmol/L Chloride (98-107) mmol/L Carbon Dioxide (21-32) mmol/L Anion Gap (3-11) BUN (6-23) mg/dl Creatinine (0.6-1.4) mg/dl Est Cr Clr Drug Dosing ml/min Est GFR ( Amer) ml/min Est GFR (Non-Af Amer) ml/min BUN/Creatinine Ratio (10-20) Glucose (70-99(Fasting)) mg/dl POC Glucose 152 H 111 H 154 H (70-99) mg/dl Calcium (8.6-10.3) mg/dl Phosphorus (2.5-4.9) mg/dl Magnesium (1.7-2.4) mg/dl Medications Administered Current Inpatient Medications Amlodipine Besylate (Amlodipine Besylate 5 Mg Tab) 5 mg PO BID [facility] Stop: 10/23/22 22:10 Last Admin: 09/27/22 08:29 Dose: 5 mg Aspirin (Aspirin 81 Mg Chew) 81 mg PO DAILY [facility] Stop: 10/24/22 08:59 Last Admin: 09/27/22 08:29 Dose: 81 mg Atorvastatin Calcium (Atorvastatin 40 Mg Tab) 80 mg PO QAM [facility] Stop: 10/24/22 08:59 Last Admin: 09/27/22 08:30 Dose: 80 mg Buprenorphine/Naloxone (Buprenorphine/Naloxone 8/2 Mg Tab) 1 tab SL BID [facility] Stop: 10/23/22 22:10 Last Admin: 09/27/22 08:30 Dose: 1 tab Carvedilol (Carvedilol 6.25 Mg Tab) 6.25 mg PO BID [facility] Stop: 10/23/22 22:10 Last Admin: 09/27/22 08:31 Dose: 6.25 mg Cyanocobalamin (Cyanocobalamin (B-12) 500 Mcg Tablet) 1,000 mcg PO DAILY [facility] Stop: 10/24/22 08:59 Last Admin: 09/27/22 08:31 Dose: 1,000 mcg Dextrose (Dextrose 50% 50 Ml Syringe) 25 - 50 ml IV UD PRN; Protocol PRN Reason: Hypoglycemia Protocol Stop: 10/23/22 22:10 Last Admin: 09/24/22 11:07 Dose: 50 ml Enoxaparin Sodium (Enoxaparin Inj 40 Mg/0.4 Ml Syr) 40 mg SQ QAM [facility] Stop: 10/24/22 08:59 Last Admin: 09/27/22 08:31 Dose: 40 mg Folic Acid (Folic Acid 1 Mg Tab) 1 mg PO QAM [facility] Stop: 10/24/22 08:59 Last Admin: 09/27/22 08:32 Dose: 1 mg Furosemide (Furosemide 40 Mg Tab) 40 mg PO HS [facility] Stop: 10/23/22 22:10 Last Admin: 09/26/22 20:19 Dose: 40 mg Gabapentin (Gabapentin 600 Mg Tab) 600 mg PO Q24H [facility] Stop: 09/27/22 12:01 Glucagon (Glucagon For Inj 1 Mg Vial) 1 mg SQ UD PRN; Protocol PRN Reason: Hypoglycemia Protocol Stop: 10/23/22 22:10 Glucose (Glucose 10 Tab/Tube) 4 - 8 tab PO UD PRN; Protocol PRN Reason: Hypoglycemia Treatment Stop: 10/23/22 22:10 Glucose (Glucose 40% Gel 15 Gm Tube) 15 - 30 gm PO UD PRN; Protocol PRN Reason: Hypoglycemia Protocol Stop: 10/23/22 22:10 Insulin Aspart (Insulin Aspart Per Unit Charge) 0 units SC ACHS [facility]; Protocol Stop: 10/23/22 22:10 Last Admin: 09/27/22 08:25 Dose: 9 units Insulin Glargine (Lantus Per Unit Charge) 14 units SC QAM [facility]; Protocol Stop: 10/27/22 08:59 Last Admin: 09/27/22 08:27 Dose: 14 units Labetalol HCl (Labetalol Hcl Iv 5 Mg/Ml 20ml) 10 mg IV Q4H PRN PRN Reason: Hypertension Stop: 10/23/22 22:10 Last Admin: 09/26/22 04:08 Dose: 10 mg Lidocaine (Lidocaine 5% 1 Patch) 1 patch TD DAILY [facility] Stop: 10/24/22 08:59 Last Admin: 09/27/22 08:32 Dose: 1 patch Lisinopril (Lisinopril 10 Mg Tab) 10 mg PO QAM [facility] Stop: 10/24/22 08:59 Last Admin: 09/27/22 08:32 Dose: 10 mg Lorazepam (Lorazepam 2 Mg/1 Ml Vial) 3 mg IV ONCE PRN; Protocol PRN Reason: EtOH Withdrawal AWSS Score 10+ Lorazepam (Lorazepam 2 Mg/1 Ml Vial) 2 mg IV UD PRN; Protocol PRN Reason: EtOH Withdrawal AWSS Score 8,9 Stop: 10/23/22 22:10 Lorazepam (Lorazepam 2 Mg/1 Ml Vial) 1 mg IV UD PRN; Protocol PRN Reason: EtOH Withdrawal AWSS Score 6,7 Stop: 10/23/22 22:10 Last Admin: 09/24/22 08:59 Dose: 1 mg Magnesium Oxide (Magnesium Oxide 400 Mg Tab) 400 mg PO BID [facility] Stop: 10/27/22 08:59 Last Admin: 09/27/22 08:32 Dose: 400 mg Melatonin (Melatonin 3 Mg Tab) 3 mg PO HS PRN PRN Reason: Sleep Stop: 10/24/22 19:42 Last Admin: 09/24/22 21:14 Dose: 3 mg Miscellaneous (Remove Lidoderm Patch) 1 each N/A DAILY@2100 [facility] Stop: 10/23/22 20:59 Last Admin: 09/26/22 20:19 Dose: 1 each Miscellaneous (Remove Nicoderm Patch) 1 each N/A DAILY@0859 [facility] Stop: 10/24/22 08:58 Last Admin: 09/27/22 08:25 Dose: 1 each Miscellaneous (Carbohydrates For Hypoglycemia ) 15 - 30 gm PO UD PRN PRN Reason: Hypoglycemia Protocol Stop: 10/23/22 22:10 Last Admin: 09/24/22 10:46 Dose: 30 gm Miscellaneous Information (Pharmacy Glycemic Mgmt Consult) 1 each N/A UD PRN PRN Reason: Consult Stop: 10/23/22 22:10 Nicotine (Nicotine 14 Mg/24 Hr Patch) 14 mg TD QAM [facility] Stop: 10/24/22 08:59 Last Admin: 09/27/22 08:32 Dose: 14 mg Nitroglycerin (Nitroglycerin Sl 0.4 Mg/Tab Tab) 0.4 mg SL Q5M PRN PRN Reason: Chest Pain Stop: 10/23/22 22:10 Polyethylene Glycol (Polyethylene (Miralax) 17 Gm Pack) 17 gm PO DAILY PRN PRN Reason: Constipation Stop: 10/23/22 22:10 Thiamine HCl (Thiamine Hcl 100 Mg Tab) 100 mg PO DAILY [facility] Stop: 10/24/22 08:59 Last Admin: 09/27/22 08:33 Dose: 100 mg
[2022-09-27] MEDS ORDERED: LANTUS PER UNIT CHARGE SC SCH (09:00)
--- NOTE | 2022-09-27 10:53 | Nephrology Progress Note ---
Date of Service September 27, 2022 Assessment & Plan Admission and Anticipated Discharge Date Admission Date: September 23, 2022 Subjective Assessment & Plan (1) CKD (chronic kidney disease): Plan: Difficult to predict his baseline, he had multiple admissions in the past with acute renal failure, some of which were at the point of almost requiring dialysis, however I suspected to be somewhere in mid to late one's At the moment he appears euvolemic and is eating and drinking, -Fluctuations in serum creatinine secondary to hemodynamic instability due to variable blood pressure. Current creat would be regarded as about baseline -Continue furosemide 40 mg daily -Daily input and output. (2) Hyponatremia: Plan: Likely combination of beer potomania, ONDINA and dilutional secondary to high sugars -Blood sugar control -Continue furosemide as above --Add FFR of 1200 ml per day. (3) Hypertensive urgency: Plan: -Blood pressure has been variable. Would not try to control perfectly given Sig Limitations Outpt. Continue same meds for now but can raise the dose of Lisinopril further. Subjective Pt seen in follow up of hyponatremia, alcoholism, hypertensive urgency. Currently sitting up in bed, in no acute distress, he is awake alert.Appropriate behavior Denies any fevers chills chest pain shortness of breath or abdominal pain. Review of Systems Review of Systems: All systems reviewed & are unremarkable except as noted in HPI & below Physical Exam Physical Exam: GENERAL: A middle-aged white male who is awake and alert and oriented; however, he does not recall what happened prior to hospitalization. HEENT: Mucous membrane is moist. NECK: Supple. No jugular venous distention.. CHEST: Bilaterally clear to auscultation. Poor inspiratory effort. CARDIOVASCULAR: S1 and S2, regular. ABDOMEN: Soft, nontender. EXTREMITIES:Trace to 1+ edema. Results & Data Vital Signs (Past 12 Hours) Vital Signs Temp Pulse Pulse Resp BP BP Pulse Ox 09/27/22 08:00 81 09/27/22 07:06 36.8 C 74 19 139/83 95 09/27/22 02:35 36.8 C 76 20 127/89 94 09/26/22 23:00 78 O2 Del Method 09/27/22 08:00 09/27/22 07:06 Room Air 09/27/22 02:35 Room Air 09/26/22 23:00
--- NOTE | 2022-09-27 11:48 | Pharmacy Report ---
Pharmacy Glycemic Short Note 2 - Date of Service September 27, 2022 - Glycemic Short BSG Results (Last 24 hours): 09/26/22 09/26/22 09/27/22 16:38 20:09 05:41 Glucose 196 H POC Glucose 111 H 152 H 09/27/22 09/27/22 07:09 11:19 Glucose POC Glucose 224 H 154 H OUTPATIENT ANTIDIABETIC REGIMEN: * Glipizide 10 mg PO daily * Jardiance 10mg PO daily * HbA1c: 7.1% (09/24/22) ASSESSMENT: 09/27: * Patient received a total of 28 units of insulin yesterday, 10 basal +18 units bolus. BSGs ranged from 111 - 162 mg/dL. Today's fasting BSG uptrended to 224 mg/dL. Will increase basal insulin. Will tighten novolog scale slightly. Patient continues to tolerate a diet. 09/26: * Patient received 24 units of insulin yesterday, 10 units basal + 14 units bolus. This was a 50% reduction in the previous days dose. BSGs ranged from 126 - 234 mg/dL. * Fasting BSG improved to 152 mg/dL this AM. Continue with current dosing regimen. No changes to in any stressors today. 09/24: * Mr Dillard is a 57yo diabetic M admitted d/t fall, EtOH withdrawal. * BSGs were elevated on admission (347 mg/dL), so patient was initiated on SQ basal/bolus regimen. * Pharmacy will continue to follow and make adjustments as indicated. PLAN FOR INPATIENT GLYCEMIC CONTROL: * Hold outpatient oral diabetes medications * Basal insulin- increase * Lantus 14 units SC daily * Bolus insulin- increase * NovoLog per scale ACHS or Q6hrs while NPO * Goal Range: Low 120 mg/dL - High 150 mg/dL * Correction Factor: 25 mg/dL/unit * Nutritional / Prandial insulin per carb ratio of 1 unit per 9 grams CHO consumed
[2022-09-27] MEDS ORDERED: GABAPENTIN 600 MG TAB PO SCH (12:00)
[2022-09-27] MEDS: FUROSEMIDE 40 MG TAB PO SCH (20:26)
[2022-09-28 07:22] LABS: Anion Gap 6 (3-11); BUN Creatinine Ratio 30.5 (10-20); Blood Urea Nitrogen 69 mg/dl (6-23); Calcium 8.3 mg/dl (8.6-10.3); Carbon Dioxide 24 mmol/L (21-32); Chloride 102 mmol/L (98-107); Creatinine Clr Calc Pharmacy 42.3 ml/min; Est GFR (African American) 35.7 ml/min; Est GFR (Non-African American) 30.8 ml/min; Glucose 196 mg/dl (70-99(Fasting)); Sodium 132 mmol/L (136-145)
[2022-09-28] MEDS: INSULIN ASPART PER UNIT CHARGE SC SCH ×4 (08:40→20:44)
[2022-09-28] MEDS: amLODIPine BESYLATE 5 MG TAB PO SCH ×2 (08:41→20:45)
[2022-09-28] MEDS: THIAMINE HCL 100 MG TAB PO SCH (08:41)
[2022-09-28] MEDS: ATORVASTATIN 40 MG TAB PO SCH (08:41)
[2022-09-28] MEDS: BUPRENORPHINE/NALOXONE 8/2 MG TAB SL SCH ×2 (08:41→20:44)
[2022-09-28] MEDS: CYANOCOBALAMIN (B-12) 500 MCG TABLET PO SCH (08:41)
[2022-09-28] MEDS: carvediloL 6.25 MG TAB PO SCH ×2 (08:41→20:44)
[2022-09-28] MEDS: ENOXAPARIN INJ 40 MG/0.4 ML SYR SQ SCH (08:42)
[2022-09-28] MEDS: FOLIC ACID 1 MG TAB PO SCH (08:42)
[2022-09-28] MEDS: LIDOCAINE 5% 1 PATCH TD SCH (08:42)
[2022-09-28] MEDS: lisinopril 10 MG TAB PO SCH (08:42)
[2022-09-28] MEDS: MAGNESIUM OXIDE 400 MG TAB PO SCH ×2 (08:42→20:44)
[2022-09-28] MEDS: NICOTINE 14 MG/24 HR PATCH TD SCH (08:43)
[2022-09-28] MEDS: ASPIRIN 81 MG CHEW PO SCH (08:52)
[2022-09-28] MEDS ORDERED: LANTUS PER UNIT CHARGE SC SCH (09:00)
--- NOTE | 2022-09-28 14:39 | Pharmacy Report ---
Pharmacy Glycemic Short Note 2 - Date of Service September 28, 2022 - Glycemic Short BSG Results (Last 24 hours): 09/27/22 09/27/22 09/28/22 16:08 20:22 05:55 Glucose 196 H POC Glucose 97 124 H 09/28/22 09/28/22 07:13 11:05 Glucose POC Glucose 224 H 128 H OUTPATIENT ANTIDIABETIC REGIMEN: * Glipizide 10 mg PO daily * Jardiance 10mg PO daily * HbA1c: 7.1% (09/24/22) ASSESSMENT: 09/28: * Patient received a total of 35 units of insulin yesterday (14 basal). BSGs ranged [id number] mg/dL. Fasting BSG remains elevated at 196-224 mg/dL today and thus lantus was increased this morning. 09/27: * Patient received a total of 28 units of insulin yesterday, 10 basal +18 units bolus. BSGs ranged from 111 - 162 mg/dL. Today's fasting BSG uptrended to 224 mg/dL. Will increase basal insulin. Will tighten novolog scale slightly. Patient continues to tolerate a diet. 09/26: * Patient received 24 units of insulin yesterday, 10 units basal + 14 units bolus. This was a 50% reduction in the previous days dose. BSGs ranged from 126 - 234 mg/dL. * Fasting BSG improved to 152 mg/dL this AM. Continue with current dosing regimen. No changes to in any stressors today. 09/24: * Mr Dillard is a 57yo diabetic M admitted d/t fall, EtOH withdrawal. * BSGs were elevated on admission (347 mg/dL), so patient was initiated on SQ basal/bolus regimen. * Pharmacy will continue to follow and make adjustments as indicated. PLAN FOR INPATIENT GLYCEMIC CONTROL: * Hold outpatient oral diabetes medications * Basal insulin- increase * Lantus 20 units SC daily * Bolus insulin- increase * NovoLog per scale ACHS or Q6hrs while NPO * Goal Range: Low 120 mg/dL - High 150 mg/dL * Correction Factor: 25 mg/dL/unit * Nutritional / Prandial insulin per carb ratio of 1 unit per 10 grams CHO consumed
--- NOTE | 2022-09-28 15:51 | Hospitalist Progress Note ---
Date of Service September 28, 2022 Assessment & Plan (1) CHI (closed head injury): Plan: Per Dr. Munoz's notes with addendum: 57-year-old male with PMH of alcohol abuse and multiple admissions history of alcohol seizures, ongoing tobacco abuse, history of CAD s/p stent, history of diabetes hypertension presents with fall at home and also found to have hypertensive urgency and alcohol withdrawal. Fall CT head is negative and cervical spine CT is negative We will monitor PT OT when stable. Alcohol abuse History of alcohol withdrawal seizures Continue home thiamine and folic acid Started on gabapentin alcohol withdrawal protocol IV Ativan as needed 09/28 No signs of acute alcohol withdrawal symptoms Completed gabapentin protocol Monitor closely Transition to alcohol rehab facility when accepted Hypertensive urgency Not taking his home medications for the last few days We will continue his home amlodipine, Coreg, lisinopril, Lasix IV labetalol as needed. Close monitor. Nephrology following -recommend to continue home medications, including Lasix 40 daily. Fluid restriction 1200. 09/28 Blood pressure fluctuating On amlodipine 5 mg twice a day, lisinopril 10 mg daily, Carvedilol 6.25 mg p.o. twice daily Increase lisinopril to 20 mg daily Hyponatremia sodium of 129 on admission Hyperkalemia - mild - pseudohyponatremia in setting of hyperglycemia on admission Received gentle fluids on admission Possible beer [place] Nephrology consulted -- Sodium 130 now 132 Continue Lasix 40 mg daily Continue fluid restriction 1200 cc daily Hypomagnesemia Replaced Diabetes Hyperglycemia We will hold home p.o. medications Insulin sliding scale. Glycemic Pharmacy consulted. Lower extremity edema Patient has a history of grade 1 diastolic dysfunction On Lasix which will be continued Dopplers negative for DVT History of CAD s/p stent Continue Coreg aspirin and statin. ONDINA on chronic kidney disease chronic kidney disease stage III Baseline creatinine unclear perhaps ~ 1.3. Pt presented w/ creatinine 1.7 -> 2 Creatinine 2.1-2.2 Likely new baseline per nephrology service Continue to monitor DVT prophylaxis - Lovenox Disposition Transition to alcohol rehab facility when accepted plan of care discussed with patient in detail and at length all questions answered He is understanding, agreeable, comfortable with the plan of care (2) Alcohol abuse: (3) Hypomagnesemia: (4) Alcohol withdrawal: (5) CKD (chronic kidney disease): (6) Hypertensive urgency: Admission and Anticipated Discharge Date Admission Date: September 23, 2022 Subjective ff up for alcoholism, hypertension, etc. Seen sitting up at the edge of the bed, comfortable, in good spirits States he feels fine overall Denies headache, dizziness no chest pain, dyspnea, palpitations, dizziness Denies tremors, anxiety, sweating No other new symptoms Review of Systems Review of Systems: all noted and negative except for above Physical Exam Physical Exam: General- oriented x 3, not in distress, speaks in sentences with no effort or accessory muscle use Head- atraumatic Eyes- PERRL, EOMI, anicteric ENT- oropharynx clear Neck- supple, no JVD, no adenopathy, no thyromegaly; carotids +2/2, no bruits appreciated Lungs- clear to auscultation bilaterally, no rales/wheezes Heart- normal rate, regular rhythm; no murmur, no gallop, no rub appreciated Abdomen- normal bowel sounds, nondistended, soft, nontender, no masses or hepatosplenomegaly Extremities- no pretibial edema, no calf tenderness; peripheral pulses intact Neuro- alert, oriented x 3; CN 2-12 grossly intact; motor 5/5 bilaterally;sensation 100% on all extremities; no other gross focal neurologic deficits Skin- warm & dry Results & Data Results & Data Vital Signs (Past 12 Hours) Vital Signs Temp Pulse Pulse Resp BP Pulse Ox O2 Del Method 09/28/22 15:41 73 09/28/22 15:17 36.6 C 78 18 164/97 H 98 Room Air 09/28/22 11:16 Room Air 09/28/22 11:07 37.0 C 77 17 127/89 97 Room Air 09/28/22 07:00 81 09/28/22 07:45 37.1 C 77 18 150/86 H 91 Room Air all noted and reviewed including below
[2022-09-28] MEDS: FUROSEMIDE 40 MG TAB PO SCH (20:45)
[2022-09-28] MEDS: LABETALOL HCL IV 5 MG/ML 20ML IV PRN (22:48)
[2022-09-29] MEDS: ASPIRIN 81 MG CHEW PO SCH (08:20)
[2022-09-29] MEDS: LANTUS PER UNIT CHARGE SC SCH (08:20)
[2022-09-29] MEDS: INSULIN ASPART PER UNIT CHARGE SC SCH ×4 (08:20→21:18)
[2022-09-29] MEDS: amLODIPine BESYLATE 5 MG TAB PO SCH ×2 (08:21→21:14)
[2022-09-29] MEDS: carvediloL 6.25 MG TAB PO SCH (08:21)
[2022-09-29] MEDS: ENOXAPARIN INJ 40 MG/0.4 ML SYR SQ SCH (08:21)
[2022-09-29] MEDS: BUPRENORPHINE/NALOXONE 8/2 MG TAB SL SCH ×2 (08:21→21:13)
[2022-09-29] MEDS: LIDOCAINE 5% 1 PATCH TD SCH (08:22)
[2022-09-29] MEDS: NICOTINE 14 MG/24 HR PATCH TD SCH (08:22)
[2022-09-29] MEDS: ATORVASTATIN 40 MG TAB PO SCH (08:22)
[2022-09-29] MEDS: FOLIC ACID 1 MG TAB PO SCH (08:22)
[2022-09-29] MEDS: lisinopril 10 MG TAB PO SCH (08:22)
[2022-09-29] MEDS: CYANOCOBALAMIN (B-12) 500 MCG TABLET PO SCH (08:22)
[2022-09-29] MEDS: MAGNESIUM OXIDE 400 MG TAB PO SCH ×2 (08:22→21:16)
[2022-09-29] MEDS: THIAMINE HCL 100 MG TAB PO SCH (08:22)
--- NOTE | 2022-09-29 13:00 | Pharmacy Report ---
Pharmacy Glycemic Short Note 2 - Date of Service September 29, 2022 - Glycemic Short BSG Results (Last 24 hours): 09/28/22 09/28/22 09/29/22 16:15 20:24 07:19 POC Glucose 132 H 166 H 290 H 09/29/22 12:17 POC Glucose 118 H OUTPATIENT ANTIDIABETIC REGIMEN: * Glipizide 10 mg PO daily * Jardiance 10mg PO daily * HbA1c: 7.1% (09/24/22) ASSESSMENT: 09/29: * Patient received 39 units of insulin total yesterday, 20 units basal + 19 units bolus. BSGs ranged from 128-224 mg/dL. Stressors remain stable. * Fasting BSG up to 290 mg/dL this AM. Did increases basal insulin to 30 units which patient has tolerated in the past. * Spoke with RN who states patient does snack. This would explain why fasting BSGs are significantly elevated compared to all other BSGs. Since Lantus was already administered today, think it is prudent to hold off on any other basal increases until we see full effect of 30 unit dose. 09/28: * Patient received a total of 35 units of insulin yesterday (14 basal). BSGs ranged [id number] mg/dL. Fasting BSG remains elevated at 196-224 mg/dL today and thus lantus was increased this morning. 09/27: * Patient received a total of 28 units of insulin yesterday, 10 basal +18 units bolus. BSGs ranged from 111 - 162 mg/dL. Today's fasting BSG uptrended to 224 mg/dL. Will increase basal insulin. Will tighten novolog scale slightly. Patient continues to tolerate a diet. 09/26: * Patient received 24 units of insulin yesterday, 10 units basal + 14 units bolus. This was a 50% reduction in the previous days dose. BSGs ranged from 126 - 234 mg/dL. * Fasting BSG improved to 152 mg/dL this AM. Continue with current dosing regimen. No changes to in any stressors today. 09/24: * Mr Dillard is a 57yo diabetic M admitted d/t fall, EtOH withdrawal. * BSGs were elevated on admission (347 mg/dL), so patient was initiated on SQ basal/bolus regimen. * Pharmacy will continue to follow and make adjustments as indicated. PLAN FOR INPATIENT GLYCEMIC CONTROL: * Hold outpatient oral diabetes medications * Basal insulin * Lantus 30 units SC daily * Bolus insulin * NovoLog per scale ACHS or Q6hrs while NPO * Goal Range: Low 120 mg/dL - High 150 mg/dL * Correction Factor: 25 mg/dL/unit * Nutritional / Prandial insulin per carb ratio of 1 unit per 10 grams CHO consumed
--- NOTE | 2022-09-29 18:24 | Hospitalist Progress Note ---
Date of Service September 29, 2022 Assessment & Plan (1) CHI (closed head injury): Plan: Per Dr. Munoz's notes with addendum: 57-year-old male with PMH of alcohol abuse and multiple admissions history of alcohol seizures, ongoing tobacco abuse, history of CAD s/p stent, history of diabetes hypertension presents with fall at home and also found to have hypertensive urgency and alcohol withdrawal. Fall CT head is negative and cervical spine CT is negative. Alcohol abuse History of alcohol withdrawal seizures Continue home thiamine and folic acid Started on gabapentin alcohol withdrawal protocol IV Ativan as needed 09/29 No signs of acute alcohol withdrawal symptoms Completed gabapentin protocol Monitor closely Transition to alcohol rehab facility when accepted --Remains stable overall Hypertensive urgency Not taking his home medications for the last few days We will continue his home amlodipine, Coreg, lisinopril, Lasix IV labetalol as needed. Close monitor. Nephrology following -recommend to continue home medications, including Lasix 40 daily. Fluid restriction 1200. 09/29 Blood pressure fluctuating On amlodipine 5 mg twice a day, lisinopril 10 mg daily, Carvedilol 6.25 mg p.o. twice daily Increase carvedilol to 12.5 mg p.o. twice daily Hyponatremia sodium of 129 on admission Hyperkalemia - mild - pseudohyponatremia in setting of hyperglycemia on admission Received gentle fluids on admission Possible beer [place] Nephrology consulted -- Sodium 130 now 132 Continue Lasix 40 mg daily Continue fluid restriction 1200 cc daily Hypomagnesemia Replaced Diabetes Hyperglycemia We will hold home p.o. medications Insulin sliding scale. Glycemic Pharmacy consulted. Lower extremity edema Patient has a history of grade 1 diastolic dysfunction On Lasix which will be continued Dopplers negative for DVT History of CAD s/p stent Continue Coreg aspirin and statin. ONDINA on chronic kidney disease chronic kidney disease stage III Baseline creatinine unclear perhaps ~ 1.3. Pt presented w/ creatinine 1.7 -> 2 Creatinine 2.1-2.2 Likely new baseline per nephrology service Continue to monitor DVT prophylaxis - Lovenox Disposition Transition to alcohol rehab facility when accepted plan of care discussed with patient in detail and at length all questions answered He is understanding, agreeable, comfortable with the plan of care (2) Alcohol abuse: (3) Hypomagnesemia: (4) Alcohol withdrawal: (5) CKD (chronic kidney disease): (6) Hypertensive urgency: Admission and Anticipated Discharge Date Admission Date: September 23, 2022 Subjective Follow-up for alcohol withdrawal, etc. Sitting up in bed, having lunch Good spirits States he feels fine overall no chest pain, dyspnea, palpitations, dizziness Anxiety, tremors, sweating No other signs or symptoms States he feels fine overall Review of Systems Review of Systems: all noted and negative except for above Physical Exam Physical Exam: General- oriented x 3, not in distress, speaks in sentences with no effort or accessory muscle use Eyes- anicteric Neck- no JVD Lungs- clear BS BL Heart- normal rate, regular rhythm; no murmurs Abdomen- normal bowel sounds, nondistended, soft, no tenderness Extremities- no pretibial edema, no calf tenderness Neuro- alert, oriented x 3; no gross focal neurologic deficits Skin- warm & dry Results & Data Results & Data Vital Signs (Past 12 Hours) Vital Signs Temp Pulse Pulse Resp BP BP Pulse Ox 09/29/22 15:33 36.6 C 72 18 138/85 95 09/29/22 15:19 72 09/29/22 07:35 36.8 C 87 20 148/76 H 97 09/29/22 11:15 36.8 C 68 18 158/90 H 98 09/29/22 10:28 09/29/22 07:00 69 O2 Del Method 09/29/22 15:33 Room Air 09/29/22 15:19 09/29/22 07:35 Room Air 09/29/22 11:15 Room Air 09/29/22 10:28 Room Air 09/29/22 07:00 all noted and reviewed including below
[2022-09-29] MEDS: FUROSEMIDE 40 MG TAB PO SCH (21:14)
[2022-09-29] MEDS: carvediloL 12.5 MG TAB PO SCH (21:15)
[2022-09-30 06:47] LABS: Creatinine Clr Calc Pharmacy 42.2 ml/min; Est GFR (African American) 35.3 ml/min; Est GFR (Non-African American) 30.5 ml/min
[2022-09-30] MEDS: BUPRENORPHINE/NALOXONE 8/2 MG TAB SL SCH (08:30)
[2022-09-30] MEDS: LANTUS PER UNIT CHARGE SC SCH (08:30)
[2022-09-30] MEDS: ASPIRIN 81 MG CHEW PO SCH (08:30)
[2022-09-30] MEDS: INSULIN ASPART PER UNIT CHARGE SC SCH ×2 (08:30→11:45)
[2022-09-30] MEDS: NICOTINE 14 MG/24 HR PATCH TD SCH (08:31)
[2022-09-30] MEDS: carvediloL 12.5 MG TAB PO SCH ×2 (08:31→16:38)
[2022-09-30] MEDS: LIDOCAINE 5% 1 PATCH TD SCH (08:31)
[2022-09-30] MEDS: amLODIPine BESYLATE 5 MG TAB PO SCH ×2 (08:31→16:38)
[2022-09-30] MEDS: THIAMINE HCL 100 MG TAB PO SCH (08:32)
[2022-09-30] MEDS: FOLIC ACID 1 MG TAB PO SCH (08:32)
[2022-09-30] MEDS: CYANOCOBALAMIN (B-12) 500 MCG TABLET PO SCH (08:32)
[2022-09-30] MEDS: MAGNESIUM OXIDE 400 MG TAB PO SCH (08:32)
[2022-09-30] MEDS: ENOXAPARIN INJ 40 MG/0.4 ML SYR SQ SCH (08:32)
[2022-09-30] MEDS: ATORVASTATIN 40 MG TAB PO SCH (08:32)
[2022-09-30] MEDS: lisinopril 10 MG TAB PO SCH (09:39)
--- NOTE | 2022-09-30 09:51 | Nephrology Progress Note ---
Date of Service September 30, 2022 Assessment & Plan Admission and Anticipated Discharge Date Admission Date: September 23, 2022 Subjective Subjective Assessment & Plan (1) CKD (chronic kidney disease): Plan: Difficult to predict his baseline, he had multiple admissions in the past with acute renal failure, some of which were at the point of almost requiring dialysis, however I suspected to be somewhere in mid to late one's At the moment he appears euvolemic and is eating and drinking, -Fluctuations in serum creatinine secondary to hemodynamic instability due to variable blood pressure. Current creat would be regarded as about baseline -Continue furosemide 40 mg daily -Daily input and output. (2) Hyponatremia: Plan: Likely combination of beer potomania, ONDINA and dilutional secondary to high sugars Continue furosemide as above FFR of 1200 ml per day. patient is waiting for placement at this time. renal labs seems stable. will follow him peripherally at this time. (3) Hypertensive urgency: Plan: -Blood pressure has been variable. Would not try to control perfectly given Sig Limitations Outpt. Raise the Lisinopril to 20 daily. Subjective No new issues. BP seems fine. labs stable. Review of Systems Review of Systems: All systems reviewed & are unremarkable except as noted in HPI & below Physical Exam Physical Exam: GENERAL: A middle-aged white male who is awake and alert and oriented; however, he does not recall what happened prior to hospitalization. HEENT: Mucous membrane is moist. NECK: Supple. No jugular venous distention.. CHEST: Bilaterally clear to auscultation. Poor inspiratory effort. CARDIOVASCULAR: S1 and S2, regular. ABDOMEN: Soft, nontender. EXTREMITIES:Trace to 1+ edema. Results & Data Vital Signs (Past 12 Hours) Vital Signs Temp Pulse Pulse Resp BP Pulse Ox O2 Del Method 09/30/22 07:30 71 09/30/22 07:09 36.6 C 71 18 145/94 H 96 Room Air 09/29/22 22:16 74 09/29/22 22:38 36.7 C 71 18 148/83 H 96 Room Air
--- NOTE | 2022-09-30 09:55 | Hospitalist Progress Note ---
Date of Service September 30, 2022 Assessment & Plan (1) Alcohol withdrawal: Plan: (1) CHI (closed head injury): Plan: Per Dr. Munoz's notes with addendum: 57-year-old male with PMH of alcohol abuse and multiple admissions history of alcohol seizures, ongoing tobacco abuse, history of CAD s/p stent, history of diabetes hypertension presents with fall at home and also found to have hypertensive urgency and alcohol withdrawal. Fall CT head is negative and cervical spine CT is negative. Alcohol abuse History of alcohol withdrawal seizures Continue home thiamine and folic acid Started on gabapentin alcohol withdrawal protocol IV Ativan as needed 09/30 No signs of acute alcohol withdrawal symptoms Completed gabapentin protocol Monitor closely Transition to alcohol rehab facility when accepted --Remains stable overall Hypertensive urgency Not taking his home medications for the last few days We will continue his homeamlodipine, Coreg, lisinopril, Lasix IV labetalol as needed. Close monitor. Nephrology following-recommend to continue home medications, including Lasix 40 daily. Fluid restriction 1200. 09/30 Blood pressure fluctuating On amlodipine 5 mg twice a day, lisinopril 10 mg daily, Carvedilol 6.25 mg p.o. twice daily Increase carvedilol to 12.5 mg p.o. twice daily -- BP improving Hyponatremiasodium of 129 on admission Hyperkalemia - mild - pseudohyponatremia in setting of hyperglycemia on admission Received gentle fluids on admission Possible beer [place] Nephrology consulted -- Sodium 130 now 132 Continue Lasix 40 mg daily Continue fluid restriction 1200 cc daily Hypomagnesemia Replaced Diabetes Hyperglycemia We will hold home p.o. medications Insulin sliding scale. Glycemic Pharmacy consulted. BSG 109 Lower extremity edema possible Cellulitis, lower leg Patient has a history of grade 1 diastolic dysfunction On Lasix which will be continued Dopplers negative for DVT -- start Cephalexin QID x 7 days History of CAD s/p stent Continue Coreg aspirin and statin. ONDINA on chronic kidney disease chronic kidney disease stage III Baseline creatinine unclear perhaps ~ 1.3. Pt presented w/ creatinine 1.7 -> 2 Creatinine 2.1-2.2 Likely new baseline per nephrology service Continue to monitor DVT prophylaxis - Lovenox Disposition Transition to alcohol rehab facility when accepted plan of care discussed with patient in detail and at length all questions answered He is understanding, agreeable, comfortable with the plan of care patient states he will stay in the hospital for continued care, and transition to [facility] once accepted Admission and Anticipated Discharge Date Admission Date: September 23, 2022 Subjective ff up for alcohol withdrawal, etc seen sleeping but easily awakened states he feels fine overall no chest pain, dyspnea, palpitations, dizziness no tremors, anxiety, sweats, confusion denies feeling depressed, having suicidal ideation no other symptoms Review of Systems Review of Systems: all noted and negative except for above Physical Exam Physical Exam: General- oriented x 3, not in distress, speaks in sentences with no effort or accessory muscle use Eyes- anicteric Neck- no JVD Lungs- clear BS BL Heart- normal rate, regular rhythm; no murmurs Abdomen- normal bowel sounds, nondistended, soft, nontender Extremities- no hand tremors mild lower ext edema mild erythema and warmth, distal lower legs L > R Neuro- alert, oriented x 3; no gross focal neurologic deficits Skin- warm & dry Results & Data Results & Data Vital Signs (Past 12 Hours) Vital Signs Temp Pulse Pulse Resp BP Pulse Ox O2 Del Method 09/30/22 07:30 71 09/30/22 07:09 36.6 C 71 18 145/94 H 96 Room Air 09/29/22 22:16 74 09/29/22 22:38 36.7 C 71 18 148/83 H 96 Room Air all noted and reviewed including below
--- NOTE | 2022-09-30 11:03 | Pharmacy Report ---
Pharmacy Glycemic Short Note 2 - Date of Service September 30, 2022 - Glycemic Short BSG Results (Last 24 hours): 09/29/22 09/29/22 09/29/22 12:17 17:05 20:00 POC Glucose 118 H 136 H 118 H 09/30/22 07:04 POC Glucose 109 H OUTPATIENT ANTIDIABETIC REGIMEN: * Glipizide 10 mg PO daily * Jardiance 10mg PO daily * HbA1c: 7.1% (09/24/22) ASSESSMENT: 09/30: * Mr. Dillard received 45 units of insulin yesterday, 30 units basal + 15 units bolus. BSGs ranged from 118-290 mg/dL. * Fasting BSG was 109 mg/dL this AM. As stated yesterday, believe patient had been snacking prior to AM BSG being checked for the previous days so those values of > 200 were likely inaccurate. * Will continue with 30 units of basal again today. Hopefully, patient can refrain from snacking tomorrow so we can make an accurate assessment of his basal dose. * No change to Novolog. 09/29: * Patient received 39 units of insulin total yesterday, 20 units basal + 19 units bolus. BSGs ranged from 128-224 mg/dL. Stressors remain stable. * Fasting BSG up to 290 mg/dL this AM. Did increases basal insulin to 30 units which patient has tolerated in the past. * Spoke with RN who states patient does snack. This would explain why fasting BSGs are significantly elevated compared to all other BSGs. Since Lantus was already administered today, think it is prudent to hold off on any other basal increases until we see full effect of 30 unit dose. 09/28: * Patient received a total of 35 units of insulin yesterday (14 basal). BSGs ranged [id number] mg/dL. Fasting BSG remains elevated at 196-224 mg/dL today and thus lantus was increased this morning. 09/27: * Patient received a total of 28 units of insulin yesterday, 10 basal +18 units bolus. BSGs ranged from 111 - 162 mg/dL. Today's fasting BSG uptrended to 224 mg/dL. Will increase basal insulin. Will tighten novolog scale slightly. Patient continues to tolerate a diet. 09/26: * Patient received 24 units of insulin yesterday, 10 units basal + 14 units bolus. This was a 50% reduction in the previous days dose. BSGs ranged from 126 - 234 mg/dL. * Fasting BSG improved to 152 mg/dL this AM. Continue with current dosing regimen. No changes to in any stressors today. 09/24: * Mr Dillard is a 57yo diabetic M admitted d/t fall, EtOH withdrawal. * BSGs were elevated on admission (347 mg/dL), so patient was initiated on SQ basal/bolus regimen. * Pharmacy will continue to follow and make adjustments as indicated. PLAN FOR INPATIENT GLYCEMIC CONTROL: * Hold outpatient oral diabetes medications * Basal insulin * Lantus 30 units SC daily * Bolus insulin * NovoLog per scale ACHS or Q6hrs while NPO * Goal Range: Low 120 mg/dL - High 150 mg/dL * Correction Factor: 25 mg/dL/unit * Nutritional / Prandial insulin per carb ratio of 1 unit per 10 grams CHO consumed
[2022-09-30] MEDS: cephALEXin 500 MG CAP PO SCH ×2 (14:06→16:27)
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
[2022-10-01] MEDS ORDERED: lisinopril 20 MG TAB PO SCH (09:00)
== END 2022-09-30 17:12 | disposition alcohol treatment (31) | DRG 897 ==
LOC: ED 14:45 → 2S 20:46 → SUATTDRO 20:46 → 2S 21:38 → 2E 09-25 15:23

== ENCOUNTER 2022-11-11 08:06 | Inpatient (IN) ==
[2022-11-11] MEDS ORDERED: ONDANSETRON INJ 2 MG/ML 2 ML VIAL IV STA (08:27)
[2022-11-11] MEDS ORDERED: SODIUM CHLORIDE 0.9% 500 ML IV STA (08:27)
[2022-11-11] MEDS ORDERED: MoRPHine SULFATE 4 MG/ML 1 ML CARP\\VIAL IV STA ×2 (08:27→10:55)
--- NOTE | 2022-11-11 08:32 | Emergency Department Note ---
Impression & Plan Closed fracture of left hip, Alcohol abuse, Hypertension, Contusion of elbow, left, Lumbar contusion, Fall ED Provider Note NAME: CARLOS NGO AGE: 57 SEX: M : 1965 ARRIVES VIA: Ambulance INFORMANT: Patient, ED PROVIDER(S): Maurice Kate DO CHIEF COMPLAINT: Hip pain HPI: Patient is a 57-year-old male who presented to the emergency department for an evaluation of hip pain. The patient was downtown when he fell from a wall. He thinks the mccatry approximately 3 feet high. He fell onto his left side. He injured his elbow his hand and his left hip. He states he has no headache. The patient does complain of some lower back pain as well. The patient arrived via ambulance. The patient denies having any recent fevers. He does admit to drinking a significant amount of alcohol last evening. ROS: See above HPI for pertinent positives & negatives. A total of 10 systems reviewed and were otherwise negative. PAST MEDICAL HISTORY: See Below PAST SURGICAL HISTORY: See Below FAMILY HISTORY: See Below SOCIAL HISTORY: See Below HOME MEDICATIONS: See Below ALLERGIES: See Below VITALS: See Below PHYSICAL EXAMINATION: GENERAL: Patient is awake to verbal commands. He does follow commands well. He does appear to be somewhat tired. EYES: The conjunctivae are clear. The pupils are round and reactive. EARS, NOSE, MOUTH AND THROAT: The nose is without any evidence of any deformity. Mucous membranes are dry. NECK: The neck is nontender and supple. RESPIRATORY: Normal respiratory effort is noted there is no evidence of wheezing rhonchi or rales CARDIOVASCULAR: Regular rate and rhythm noted there no murmurs rubs or gallops normal S1 normal S2. GASTROINTESTINAL: The abdomen is soft. Abdomen is nontender. BACK: Lower lumbar tenderness was noted to palpation. Range of motion does appear to be intact. MUSCULOSKELETAL/EXTREMITIES: There is swelling at the left olecranon. Range of motion appears intact. There are abrasions over the left fourth and fifth digits. Range of motion appears intact. There is shortening of the left leg with pain with range of motion testing of the left hip. Pulses are symmetric in both feet. SKIN: There is no obvious evidence of any rash. There are no petechiae, pallor or cyanosis noted. NEUROLOGIC: Patient is awake and oriented to person place and situation. Strength was symmetric. MEDICAL DECISION MAKING: The patient is a 57-year-old male who presented to the emergency department after a fall. The patient had a fall from approximately 3 feet. He landed on his left side. The patient does have a history of alcohol abuse. He admits to drinking alcoholic beverages last evening. The patient was treated with pain medication in the emergency department. He was reevaluated multiple times. I discussed the patient's laboratory and radiographic studies with him. He was found to have a fracture of his left hip. The patient also has a history of chronic alcohol abuse. His blood pressure did start to go up. He may require further medical clearance prior to surgery. He may require treatment and e valuation for withdrawal. I discussed this case with the on-call [facility] hospitalist group. I also discussed this case with the on-call orthopedic physician. Triage Nursing notes reviewed. Prior medical records reviewed Vital Signs: reviewed and remarkable for elevated blood pressure. Differential diagnosis: Fracture, dislocation, contusion, intra-abdominal, pneumothorax, intrathoracic, intracranial, neurologic, compartment syndrome, rhabdomyolysis, as well as other pathologies. ER treatment provided: See below Diagnostics interpreted by me: ECG: EKG was obtained in the emergency department. My interpretation is normal sinus rhythm at 83 bpm. There is no ectopy. There is no acute ST segment abnormalities noted. This was compared to a tracing from September 23, 2022. No changes were noted. Cardiac Monitoring: An order was placed for continuous cardiac monitoring. The monitor shows a rate of 99 bpm with sinus rhythm. Laboratory studies: As stated above and show below. Imaging studies: See below. Radiographic imaging was reviewed by myself Consultation(s): I discussed this case with Dr. Akers who is on-call for the [facility]. I discussed this case with Dr. Marion who is on-call for orthopedics Past Med/Surg History Medical History ONDINA (acute kidney injury) Alcohol abuse Alcohol use disorder Alcohol use disorder, severe, dependence Alcohol withdrawal Alcohol withdrawal syndrome Bilateral edema of lower extremity Chronic anemia Diabetes mellitus type 2 with complications Discharge planning issues TONEY (dyspnea on exertion) TONEY (dyspnea on exertion) DVT prophylaxis Edema Elevated troponin HTN (hypertension) Hypomagnesemia Hypomagnesemia Ischemic cardiomyopathy Mood disorder Neuropathy NSTEMI (non-ST elevated myocardial infarction) Obesity CATALINO (obstructive sleep apnea) CATALINO (obstructive sleep apnea) Proteinuria Smoking Tobacco use disorder Type 2 diabetes mellitus Surgical History History of cardiac catheterization 1 ELIESER to proximal OM by Dr. Guerrero on 01/01/19 History of lymph node biopsy Family History Other Diabetes Heart disease Hypertension Social History Smoking Status: Current every day smoker Tobacco Type: Cigarettes Cigarettes Per Day: 1/2 pack a day; Second Hand Exposure: No; Do You Dip or Chew Tobacco: No; Hx Alcohol Use: Yes Alcohol type: hard liquor Alcohol type Comment: 1/2 gallon vodka a day Hx Substance Use: Yes Last Used Substance: Unknown Last Used Substance Other:: Used over the weekend Substance Use Type Other:: patient said "I've used it all" Preferred Language: Yi Communication Ability: Effective Gunnery/Ordnance Officer Required: No Beliefs That Will Affect Care: None marital status: Single Current Living Situation: Homeless Current Living Situation Comment: Living in car current occupational status: unemployed How many Children do You have: 2 Feels Safe at Home: Yes Assistive Devices: None Allergies Allergies Allergy/AdvReac Type Severity Reaction Status Date / Time pollen extracts Allergy Intermediate SNEEZING, Verified 11/11/22 12:05 CONGESTION Home Meds Home Medications Medication Instructions Recorded Confirmed buprenorphine 8 mg-naloxone 2 mg 1 tab sublingual BID 09/15/21 11/11/22 sublingual tablet atorvastatin 80 mg tablet 80 mg PO HS 10/25/21 11/11/22 folic acid 1 mg tablet 1 mg PO QAM 10/25/21 11/11/22 empagliflozin 10 mg tablet 10 mg PO DAILY 06/27/22 11/11/22 (Jardiance) furosemide 40 mg tablet 40 mg PO DAILY 06/27/22 11/11/22 glipizide 10 mg tablet, extended 20 mg PO DAILY 06/27/22 11/11/22 release 24 hr carvedilol 12.5 mg tablet 12.5 mg PO BID 09/23/22 11/11/22 cyanocobalamin (vitamin B-12) 1,000 mcg PO DAILY 09/23/22 11/11/22 1,000 mcg tablet (Vitamin B-12) nitroglycerin 0.4 mg sublingual 0.4 mg sublingual DIRECTED PRN 09/23/22 11/11/22 tablet Chest Pain thiamine HCl (vitamin B1) 100 mg 100 mg PO DAILY 09/23/22 11/11/22 tablet (Vitamin B-1) lisinopril 10 mg PO DAILY 11/11/22 11/11/22 mirtazapine 15 mg tablet 7.5 mg PO HS 11/11/22 11/11/22 tamsulosin 0.4 mg capsule 0.4 mg PO HS 11/11/22 11/11/22 Previous Rx's Medication Instructions Recorded amlodipine 5 mg tablet (Norvasc) 5 mg PO BID #60 tabs 07/06/22 Results & Data (ED) Vital Signs Vital Signs - 24 hr 11/11/22 08:16 11/11/22 08:11 11/11/22 09:19 Pulse Rate 88 87 Pulse Rate [Apical] 81 Pulse Rhythm Respiratory Rate 20 20 Respiratory Effort / Characteristics Non-Labored Non-Labored Respiratory Depth Normal Normal Respiratory Pattern Regular Regular Blood Pressure 185/101 H Blood Pressure [Left Arm] 192/108 H Blood Pressure Mean 129 Blood Pressure Mean [Left Arm] 136 Blood Pressure Position [Left Arm] Lying Pulse Oximetry 96 96 Oxygen Delivery Method Room Air Nasal Cannula Oxygen Flow Rate 2 Sepsis Recent Fever Within 48 Hours No Sepsis New/Unexplained Change in Mental Status No Sepsis Action Taken by Nursing No Action Required Oxygen Flow Rate - Titration Pulse Oximetry Post Tiitration 11/11/22 09:22 11/11/22 09:23 11/11/22 10:59 Pulse Rate 83 Pulse Rate [Apical] 100 H Pulse Rhythm Regular Respiratory Rate 22 20 Respiratory Effort / Characteristics Non-Labored Respiratory Depth Normal Respiratory Pattern Blood Pressure Blood Pressure [Left Arm] 213/111 H Blood Pressure Mean Blood Pressure Mean [Left Arm] 145 Blood Pressure Position [Left Arm] Lying Pulse Oximetry 88 L 97 98 Oxygen Delivery Method Room Air Nasal Cannula Nasal Cannula Oxygen Flow Rate 2 2 Sepsis Recent Fever Within 48 Hours Sepsis New/Unexplained Change in Mental Status Sepsis Action Taken by Nursing Oxygen Flow Rate - Titration 2 Pulse Oximetry Post Tiitration 97 11/11/22 11:51 11/11/22 12:18 11/11/22 13:00 Pulse Rate 112 H Pulse Rate [Apical] 112 H 99 H Pulse Rhythm Respiratory Rate 20 20 Respiratory Effort / Characteristics Non-Labored Non-Labored Respiratory Depth Normal Normal Respiratory Pattern Regular Blood Pressure Blood Pressure [Left Arm] 211/117 H 201/108 H Blood Pressure Mean Blood Pressure Mean [Left Arm] 148 139 Blood Pressure Position [Left Arm] Lying Lying Pulse Oximetry 99 97 Oxygen Delivery Method Nasal Cannula Nasal Cannula Oxygen Flow Rate 2 2 Sepsis Recent Fever Within 48 Hours Sepsis New/Unexplained Change in Mental Status Sepsis Action Taken by Nursing Oxygen Flow Rate - Titration Pulse Oximetry Post Tiitration Home Medications Current Medication List: was personally reviewed by me Laboratory Data Attestation: I reviewed the patient's lab results. 11/11/22 08:55 11/11/22 08:55 Lab Results 11/11/22 11/11/22 11/11/22 Range/Units 08:55 08:55 08:55 WBC 5.51 (4.8-10.8) K/ul RBC 3.44 L (4.70-6.10) M/uL Hgb 10.5 L (14.0-18.0) g/dl Hct 31.2 L (42.0-52.0) % MCV 90.7 (80.0-100.0) fL MCH 30.5 (25.0-34.0) pg MCHC 33.7 (32.0-36.0) g/dL RDW Std Deviation 39.7 (36.4-46.3) fL RDW Coeff of Alberto 11.9 (11.5-14.5) % Plt Count 185 (130-400) K/uL MPV 9.6 (9.4-12.4) fL Immature Gran % (Auto) 0.2 % Neut % (Auto) 59.5 % Lymph % (Auto) 29.8 % Levy % (Auto) 6.4 % Eos % (Auto) 3.4 % Baso % (Auto) 0.7 % Neut # (Auto) 3.28 (1.40-6.50) K/uL Lymph # (Auto) 1.64 (1.20-3.40) K/uL Levy # (Auto) 0.35 (0.11-0.59) K/uL Eos # (Auto) 0.19 (0.00-0.50) K/uL Baso # (Auto) 0.04 (0.00-0.20) K/uL Immature Gran # (Auto) 0.01 (0.01-0.20) K/uL PT 10.7 (9.0-12.0) Seconds INR 1.0 (0.9-1.1) APTT 27.6 (21.0-31.0) Seconds PTT Ratio 1.0 Sodium 139 (136-145) mmol/L Potassium 5.3 H (3.5-5.1) mmol/L Chloride 112 H (98-107) mmol/L Carbon Dioxide 21 (21-32) mmol/L Anion Gap 6 (3-11) BUN 54 H (6-23) mg/dl Creatinine 2.69 H (0.6-1.4) mg/dl Est Cr Clr Drug Dosing 35.2 ml/min Est GFR ( Amer) 28.9 ml/min Est GFR (Non-Af Amer) 25.0 ml/min BUN/Creatinine Ratio 20.1 H (10-20) Glucose 163 H (70-99(Fasting)) mg/dl Calcium 8.6 (8.6-10.3) mg/dl Total Bilirubin 0.5 (0.2-1.0) mg/dl AST 21 (13-39) U/L ALT 17 (7-52) U/L Alkaline Phosphatase 86 (34-104) U/L Troponin I High Sens 7.9 (0-20) pg/ml Total Protein 7.2 (6.0-8.3) gm/dl Albumin 3.6 (3.4-5.0) gm/dl Globulin 3.6 (2.5-4.0) gm/dl Albumin/Globulin Ratio 1.0 (0.9-2) Lipase 50 (11-82) U/L Urine Color Urine Appearance (Clear) Urine pH (4.5-7.5) Ur Specific [place] (1.000-1.030) Urine Protein (Negative) Urine Glucose (UA) (Negative) Urine Ketones (Negative) Urine Blood (Negative) Urine Nitrite (Negative) Urine Bilirubin (Negative) Urine Urobilinogen (Negative) Ur Leukocyte Esterase (Negative) Urine WBC (Auto) (0-5) /hpf Urine RBC (Auto) (0-4) /hpf U Hyaline Cast (Auto) (0-5) /lpf U Epithel Cells (Auto) (0-5) /lpf Urine Bacteria (Auto) (Negative) Urine Opiates Screen (Neg) Ur Methadone, Qual (Neg) Urine Barbiturates (Neg) Ur Phencyclidine (PCP) (Neg) U Amphetamin/Meth Scrn (Neg) MDMA (Ecstasy) Screen (Neg) U Benzodiazepines Scrn (Neg) Ur Cocaine Metabolite (Neg) U Marijuana (THC) Screen (Neg) Ethyl Alcohol mg/dL (<10.0) mg/dl 11/11/22 11/11/22 11/11/22 Range/Units 08:55 10:49 10:49 WBC (4.8-10.8) K/ul RBC (4.70-6.10) M/uL Hgb (14.0-18.0) g/dl Hct (42.0-52.0) % MCV (80.0-100.0) fL MCH (25.0-34.0) pg MCHC (32.0-36.0) g/dL RDW Std Deviation (36.4-46.3) fL RDW Coeff of Alberto (11.5-14.5) % Plt Count (130-400) K/uL MPV (9.4-12.4) fL Immature Gran % (Auto) % Neut % (Auto) % Lymph % (Auto) % Levy % (Auto) % Eos % (Auto) % Baso % (Auto) % Neut # (Auto) (1.40-6.50) K/uL Lymph # (Auto) (1.20-3.40) K/uL Levy # (Auto) (0.11-0.59) K/uL Eos # (Auto) (0.00-0.50) K/uL Baso # (Auto) (0.00-0.20) K/uL Immature Gran # (Auto) (0.01-0.20) K/uL PT (9.0-12.0) Seconds INR (0.9-1.1) APTT (21.0-31.0) Seconds PTT Ratio Sodium (136-145) mmol/L Potassium (3.5-5.1) mmol/L Chloride (98-107) mmol/L Carbon Dioxide (21-32) mmol/L Anion Gap (3-11) BUN (6-23) mg/dl Creatinine (0.6-1.4) mg/dl Est Cr Clr Drug Dosing ml/min Est GFR ( Amer) ml/min Est GFR (Non-Af Amer) ml/min BUN/Creatinine Ratio (10-20) Glucose (70-99(Fasting)) mg/dl Calcium (8.6-10.3) mg/dl Total Bilirubin (0.2-1.0) mg/dl AST (13-39) U/L ALT (7-52) U/L Alkaline Phosphatase (34-104) U/L Troponin I High Sens (0-20) pg/ml Total Protein (6.0-8.3) gm/dl Albumin (3.4-5.0) gm/dl Globulin (2.5-4.0) gm/dl Albumin/Globulin Ratio (0.9-2) Lipase (11-82) U/L Urine Color Yellow Urine Appearance Clear (Clear) Urine pH 5.5 (4.5-7.5) Ur Specific [place] 1.016 (1.000-1.030) Urine Protein 4+ H (Negative) Urine Glucose (UA) 1+ H (Negative) Urine Ketones Negative (Negative) Urine Blood 1+ H (Negative) Urine Nitrite Negative (Negative) Urine Bilirubin Negative (Negative) Urine Urobilinogen Negative (Negative) Ur Leukocyte Esterase Negative (Negative) Urine WBC (Auto) 1-5 (0-5) /hpf Urine RBC (Auto) 0-4 (0-4) /hpf U Hyaline Cast (Auto) 1-5 (0-5) /lpf U Epithel Cells (Auto) 10-20 H (0-5) /lpf Urine Bacteria (Auto) Negative (Negative) Urine Opiates Screen Pos H (Neg) Ur Methadone, Qual Neg (Neg) Urine Barbiturates Neg (Neg) Ur Phencyclidine (PCP) Neg (Neg) U Amphetamin/Meth Scrn Neg (Neg) MDMA (Ecstasy) Screen Neg (Neg) U Benzodiazepines Scrn Neg (Neg) Ur Cocaine Metabolite Neg (Neg) U Marijuana (THC) Screen Neg (Neg) Ethyl Alcohol mg/dL 105.0 H (<10.0) mg/dl Administered Medications Discontinued Medications Sodium Chloride (Nss) 500 mls @ 999 mls/hr IV .Q31M STA Stop: 11/11/22 08:57 Last Infusion: 11/11/22 09:57 Dose: 0 mls/hr Documented By: Admin: 11/11/22 09:09 Dose: 999 mls/hr Documented By: KYRA Morphine Sulfate (Morphine Sulfate 4 Mg/Ml 1 Ml Carp\\Vial) 4 mg IV NOW STA Stop: 11/11/22 08:28 Last Admin: 11/11/22 09:09 Dose: 4 mg Documented By: MMG Morphine Sulfate (Morphine Sulfate 4 Mg/Ml 1 Ml Carp\\Vial) 4 mg IV NOW STA Stop: 11/11/22 10:56 Last Admin: 11/11/22 11:01 Dose: 4 mg Documented By: KYRA Ondansetron HCl (Ondansetron Inj 2 Mg/Ml 2 Ml Vial) 4 mg IV NOW STA Stop: 11/11/22 08:28 Last Admin: 11/11/22 09:09 Dose: 4 mg Documented By: KYRA Imaging Data Attestation: I personally reviewed and interpreted this imaging study as follows: My Impression: CT of the brain was obtained in the emergency department. My interpretation is no intracranial hemorrhage or mass effect, final report below. X-ray of the left hip and pelvis were obtained in the emergency department. My interpretation is subcapital left hip fracture, final report below. Radiologist's Impression: Cervical Spine CT 11/11/22 08:27 CT OF THE CERVICAL SPINE WITHOUT CONTRAST CLINICAL HISTORY: fall COMPARISON STUDY: Cervical spine CT September 23, 2022. TECHNIQUE: Helical axial images of the cervical spine were obtained without IV contrast. Sagittal and coronal reconstructions were viewed. Automated exposure control was utilized for the study. A dose lowering technique was utilized adhering to the principles of ALARA. FINDINGS: Alignment of the cervical spine is anatomic. Vertebral body heights are maintained. No acute cervical spine fracture or subluxation is present. There is no prevertebral edema. Facet joints are intact. Mild multilevel disc space narrowing and osteophytosis within the cervical spine is present. Slight concavity of the superior endplate of T1 is unchanged. IMPRESSION: No acute cervical spine fracture or subluxation. ACT 112: Negative or not required by law. Electronically signed by: Won Amos M.D. 11/11/2022 10:11 AM Chest X-Ray 11/11/22 08:27 XR chest 1V not portable CLINICAL HISTORY: fall TECHNIQUE: Single frontal radiograph of the chest was obtained. Comparison: Comparison is made to chest radiograph 09/23/2022 FINDINGS: No lines and tubes are seen. Cardiomegaly is noted. The aortic arch is calcified. The lungs are clear. No evidence of pleural effusion or pneumothorax. IMPRESSION: No acute chest disease. ACT 112: Negative or not required by law. Electronically signed by: Hermilo Mooney M.D. 11/11/2022 10:49 AM Elbow X-Ray 11/11/22 08:27 XR elbow LT min 3V routine CLINICAL HISTORY: Left elbow pain following fall. COMPARISON: None FINDINGS: Alignment of the left elbow is anatomic. Soft tissue swelling overlying the olecranon is noted. There is no acute fracture. There is no evidence for a left elbow joint effusion. IMPRESSION: 1. No acute fracture. No evidence for a left elbow joint effusion. 2. Soft tissue swelling overlying the olecranon. ACT 112: Negative or not required by law. Electronically signed by: Won Amos M.D. 11/11/2022 10:57 AM Hand X-Ray 11/11/22 08:27 XR hand LT min 3V routine HISTORY: 57 years-old Male fall acute left hand pain status post fall COMPARISON: None TECHNIQUE: 3 views of the left hand FINDINGS: Mild osteoarthritis. Arterial calcifications. No acute fracture, dislocation or opaque foreign body. Mild dorsal hand soft tissue swelling. IMPRESSION: No acute osseous abnormality. ACT 112: Negative or not required by law. The above report was generated using voice recognition software. It may contain grammatical, syntax or spelling errors. Electronically signed by: Suhas Ramos M.D. 11/11/2022 11:[address] 11/11/22 08:27 CT OF THE HEAD WITHOUT CONTRAST CLINICAL HISTORY: fall COMPARISON STUDY: Head CT September 23, 2022. TECHNIQUE: Helical axial images of the head were obtained without IV contrast. Automated exposure control was utilized for the study. A dose lowering technique was utilized adhering to the principles of ALARA. FINDINGS: No acute intracranial hemorrhage, midline shift or mass effect is present. 3 mm colloid cyst at the foramen of Monro is again noted. The ventricular system is unremarkable. No evidence for hydrocephalus. The basal cisterns are patent. No extra-axial collections are present. There are no findings to suggest acute dural sinus thrombosis or acute territorial infarct. No significant calvarial abnormalities are present. IMPRESSION: 1. No acute intracranial findings. 2. Stable 3 mm colloid cyst. No hydrocephalus. 3. No calvarial fracture. ACT 112: Negative or not required by law. Electronically signed by: Won Amos M.D. 11/11/2022 10:08 AM Hip/Pelvis X-Ray 11/11/22 08:27 XR hip LT 2V w pelvis HISTORY: 57 years-old Male fall acute severe left-sided hip pain status post fall COMPARISON: CT 11/13/2021 TECHNIQUE: AP view of the pelvis with 2 views of the left hip FINDINGS: Arterial calcifications. Mild osteoarthritis of the hips. There is an acute fracture within the left femoral neck which appears to be transcervical with probable mild comminution. Additionally, there is impaction with apex superolateral angulation. No dislocation. IMPRESSION: Acute, angulated and impacted transcervical fracture of the left femur. ACT 112: Negative or not required by law. The above report was generated using voice recognition software. It may contain grammatical, syntax or spelling errors. Electronically signed by: Suhas Ramos M.D. 11/11/2022 11:[address] 11/11/22 08:27 CT lumbar spine wo con CLINICAL HISTORY: fall COMPARISON STUDY: Lumbar spine CT December 10, 2017. Lumbar spine MRI December 12, 2017. TECHNIQUE: Axial images of the lumbar spine were obtained without IV contrast. Sagittal and coronal reconstructions were viewed. Automated exposure control was utilized for the study. A dose lowering technique was utilized adhering to the principles of ALARA. FINDINGS: For purposes of numbering on this exam, the L5-S1 disc space is assigned to axial image 369 of 471. No acute lumbar spine fracture is present. Concavity of the anterior aspect of the superior plate of L5 is unchanged since prior CT and MRI. No osseous lesions are noted. There is moderate multilevel facet arthrosis. There is mild multilevel disc space narrowing. The central canal and neural foramen are suboptimally assessed given CT technique. Disc bulge, facet arthrosis and ligamentous hypertrophy results in moderate to severe central canal stenosis at L3-L4. Paravertebral soft tissues are unremarkable. IMPRESSION: 1. No acute lumbar spine fracture or subluxation. 2. Moderate to severe central canal stenosis at L3-L4 due to disc bulge, facet arthrosis and ligamentous hypertrophy, suboptimally assessed by CT. ACT 112: Negative or not required by law. Electronically signed by: Won Amos M.D. 11/11/2022 10:20 AM Discharge Plan Visit Data Chief Complaint: Hip Pain Stated Complaint: FELL, HIP AND ELBOW PAIN ED Provider: Maurice Kate Discharge Problem: Closed fracture of left hip, Alcohol abuse, Hypertension, Contusion of elbow, left, Lumbar contusion, Fall Patient Disposition: Being Evaluated by Hospitalist Forms Stand Alone Forms: My [facility] Prescriptions Prescriptions: No Action folic acid 1 mg Tablet 1 mg PO QAM atorvastatin 80 mg tablet 80 mg PO HS buprenorphine-naloxone 8-2 mg tablet, sublingual 1 tab SUBLINGUAL BID furosemide 40 mg tablet 40 mg PO DAILY glipizide 10 mg tablet extended release 24hr 20 mg PO DAILY Jardiance 10 mg tablet 10 mg PO DAILY amlodipine [Norvasc] 5 mg Tablet 5 mg PO BID Qty: 60 0RF carvedilol 12.5 mg tablet 12.5 mg PO BID Rx Instructions: AM , HS cyanocobalamin (vitamin B-12) [Vitamin B-12] 1,000 mcg Tablet 1,000 mcg PO DAILY thiamine HCl (vitamin B1) [Vitamin B-1] 100 mg Tablet 100 mg PO DAILY nitroglycerin 0.4 mg tablet, sublingual 0.4 mg sublingual DIRECTED PRN (Reason: Chest Pain) tamsulosin 0.4 mg capsule 0.4 mg PO HS mirtazapine 15 mg tablet 7.5 mg PO HS lisinopril 10 mg 10 mg PO DAILY Referrals Referrals: Charity Reed MD [Primary Care Provider] -
[2022-11-11 09:11] LABS: Basophils # (auto) 0.04 K/uL (0.00-0.20); Basophils % (auto) 0.7 %; Eosinophils # (auto) 0.19 K/uL (0.00-0.50); Eosinophils % (auto) 3.4 %; Hematocrit (blood only) 31.2 % (42.0-52.0); Hemoglobin 10.5 g/dl (14.0-18.0); Immature Granulocytes # (auto) 0.01 K/uL (0.01-0.20); Immature Granulocytes % (auto) 0.2 %; Lymphocytes # (auto) 1.64 K/uL (1.20-3.40); Lymphocytes % (auto) 29.8 %; Mean Corpuscular Hemoglobin 30.5 pg (25.0-34.0); Mean Corpuscular Hgb Conc 33.7 g/dL (32.0-36.0); Mean Corpuscular Volume 90.7 fL (80.0-100.0); Mean Platelet Volume 9.6 fL (9.4-12.4); Monocytes # (auto) 0.35 K/uL (0.11-0.59); Monocytes % (auto) 6.4 %; Neutrophils # (auto) 3.28 K/uL (1.40-6.50); Neutrophils % (auto) 59.5 %; Platelet Count 185 K/uL (130-400); RDW Coefficient of Variation 11.9 % (11.5-14.5); RDW Standard Deviation 39.7 fL (36.4-46.3); Red Blood Count 3.44 M/uL (4.70-6.10); White Blood Count 5.51 K/ul (4.8-10.8)
[2022-11-11 09:19] LABS: Partial Thromboplastin Time 27.6 Seconds (21.0-31.0); Prothrombin Time 10.7 Seconds (9.0-12.0)
[2022-11-11 09:33] LABS: Albumin Level 3.6 gm/dl (3.4-5.0); BUN Creatinine Ratio 20.1 (10-20); Bilirubin,Total 0.5 mg/dl (0.2-1.0); Calcium 8.6 mg/dl (8.6-10.3); Creatinine Clr Calc Pharmacy 35.2 ml/min; Est GFR (African American) 28.9 ml/min; Globulin 3.6 gm/dl (2.5-4.0); Potassium 5.3 mmol/L (3.5-5.1); Total Protein 7.2 gm/dl (6.0-8.3)
[2022-11-11 09:40] LABS: Troponin I High Sensitivity 7.9 pg/ml (0-20)
--- NOTE | 2022-11-11 10:09 | CT Scan Report ---
CT OF THE HEAD WITHOUT CONTRAST CLINICAL HISTORY: fall COMPARISON STUDY: Head CT September 23, 2022. TECHNIQUE: Helical axial images of the head were obtained without IV contrast. Automated exposure con trol was utilized for the study. A dose lowering technique was utilized adhering to the principles o f ALARA. FINDINGS: No acute intracranial hemorrhage, midline shift or mass effect is present. 3 mm colloid cys t at the foramen of Monro is again noted. The ventricular system is unremarkable. No evidence for hyd rocephalus. The basal cisterns are patent. No extra-axial collections are present. There are no findi ngs to suggest acute dural sinus thrombosis or acute territorial infarct. No significant calvarial ab normalities are present. IMPRESSION: 1. No acute intracranial findings. 2. Stable 3 mm colloid cyst. No hydrocephalus. 3. No calvarial fracture. ACT 112: Negative or not required by law. Electronically signed by: Won Amos M.D. 11/11/2022 10:08 AM
--- NOTE | 2022-11-11 10:13 | CT Scan Report ---
CT OF THE CERVICAL SPINE WITHOUT CONTRAST CLINICAL HISTORY: fall COMPARISON STUDY: Cervical spine CT September 23, 2022. TECHNIQUE: Helical axial images of the cervical spine were obtained without IV contrast. Sagittal a nd coronal reconstructions were viewed. Automated exposure control was utilized for the study. A do se lowering technique was utilized adhering to the principles of ALARA. FINDINGS: Alignment of the cervical spine is anatomic. Vertebral body heights are maintained. No acut e cervical spine fracture or subluxation is present. There is no prevertebral edema. Facet joints are intact. Mild multilevel disc space narrowing and osteophytosis within the cervical spine is present . Slight concavity of the superior endplate of T1 is unchanged. IMPRESSION: No acute cervical spine fracture or subluxation. ACT 112: Negative or not required by law. Electronically signed by: Won Amos M.D. 11/11/2022 10:11 AM
--- NOTE | 2022-11-11 10:21 | CT Scan Report ---
CT lumbar spine wo con CLINICAL HISTORY: fall COMPARISON STUDY: Lumbar spine CT December 10, 2017. Lumbar spine MRI December 12, 2017. TECHNIQUE: Axial images of the lumbar spine were obtained without IV contrast. Sagittal and coronal r econstructions were viewed. Automated exposure control was utilized for the study. A dose lowering t echnique was utilized adhering to the principles of ALARA. FINDINGS: For purposes of numbering on this exam, the L5-S1 disc space is assigned to axial image 369 of 471. No acute lumbar spine fracture is present. Concavity of the anterior aspect of the superior plate of L5 is unchanged since prior CT and MRI. No osseous lesions are noted. There is moderate mult ilevel facet arthrosis. There is mild multilevel disc space narrowing. The central canal and neural f oramen are suboptimally assessed given CT technique. Disc bulge, facet arthrosis and ligamentous hype rtrophy results in moderate to severe central canal stenosis at L3-L4. Paravertebral soft tissues are unremarkable. IMPRESSION: 1. No acute lumbar spine fracture or subluxation. 2. Moderate to severe central canal stenosis at L3-L4 due to disc bulge, facet arthrosis and ligament ous hypertrophy, suboptimally assessed by CT. ACT 112: Negative or not required by law. Electronically signed by: Won Amos M.D. 11/11/2022 10:20 AM
--- NOTE | 2022-11-11 10:51 | XRay Report ---
XR chest 1V not portable CLINICAL HISTORY: fall TECHNIQUE: Single frontal radiograph of the chest was obtained. Comparison: Comparison is made to chest radiograph 09/23/2022 FINDINGS: No lines and tubes are seen. Cardiomegaly is noted. The aortic arch is calcified. The lungs are clear . No evidence of pleural effusion or pneumothorax. IMPRESSION: No acute chest disease. ACT 112: Negative or not required by law. Electronically signed by: Hermilo Mooney M.D. 11/11/2022 10:49 AM
--- NOTE | 2022-11-11 10:59 | XRay Report ---
XR elbow LT min 3V routine CLINICAL HISTORY: Left elbow pain following fall. COMPARISON: None FINDINGS: Alignment of the left elbow is anatomic. Soft tissue swelling overlying the olecranon is n oted. There is no acute fracture. There is no evidence for a left elbow joint effusion. IMPRESSION: 1. No acute fracture. No evidence for a left elbow joint effusion. 2. Soft tissue swelling overlying the olecranon. ACT 112: Negative or not required by law. Electronically signed by: Won Amos M.D. 11/11/2022 10:57 AM
[2022-11-11 11:07] LABS: Appearance Urine Clear (Clear); Bacteria Urine Automated Negative (Negative); Bilirubin Urine Negative (Negative); Blood Urine 1+ (Negative); Color Urine Yellow; Glucose Urine UA 1+ (Negative); Ketones Urine Negative (Negative); Leukocyte Esterase Urine Negative (Negative); Nitrite Urine Negative (Negative); Protein Urine 4+ (Negative); RBC Urine Automated 0-4 /hpf (0-4); Specific Gravity Urine 1.016 (1.000-1.030); Urobilinogen Urine Negative (Negative); pH Urine 5.5 (4.5-7.5)
--- NOTE | 2022-11-11 11:13 | XRay Report ---
XR hip LT 2V w pelvis HISTORY: 57 years-old Male fall acute severe left-sided hip pain status post fall COMPARISON: CT 11/13/2021 TECHNIQUE: AP view of the pelvis with 2 views of the left hip FINDINGS: Arterial calcifications. Mild osteoarthritis of the hips. There is an acute fracture within the left femoral neck which appears to be transcervical with probable mild comminution. Additionally, there is impaction with apex superolateral angulation. No dislocation. IMPRESSION: Acute, angulated and impacted transcervical fracture of the left femur. ACT 112: Negative or not required by law. The above report was generated using voice recognition software. It may contain grammatical, syntax o r spelling errors. Electronically signed by: Suhas Ramos M.D. 11/11/2022 11:11 AM
--- NOTE | 2022-11-11 11:17 | XRay Report ---
XR hand LT min 3V routine HISTORY: 57 years-old Male fall acute left hand pain status post fall COMPARISON: None TECHNIQUE: 3 views of the left hand FINDINGS: Mild osteoarthritis. Arterial calcifications. No acute fracture, dislocation or opaque foreign body. Mild dorsal hand soft tissue swelling. IMPRESSION: No acute osseous abnormality. ACT 112: Negative or not required by law. The above report was generated using voice recognition software. It may contain grammatical, syntax o r spelling errors. Electronically signed by: Suhas Ramos M.D. 11/11/2022 11:16 AM
[2022-11-11 11:24] LABS: Amphetamines+Metham, Urine Neg (Neg); Barbiturates, Urine Neg (Neg); Benzodiazepine, Urine Neg (Neg); Cocaine, Urine Neg (Neg); MDMA (Ecstacy), Urine Neg (Neg); Methadone, Urine Neg (Neg); Opiate, Urine Pos (Neg); Phencyclidine, Urine Neg (Neg)
--- NOTE | 2022-11-11 12:41 | History & Physical Report ---
Date of Service November 11, 2022 Assessment & Plan (1) Closed fracture of left hip: Plan Left Hip fracture S/P fall Present to the ED with excruciated left hip pain. XR hip /pelvis showed acute, angulated and impacted transcervical fracture of the left femur. CT head /Cervical spine and lumbar spine showed no acute finding Received IV morphine in the ER ER provider discussed case with Dr. Marion that recommended to make NPO after midnight in case pt is stable for hip surgery Pt is on Suboxone BID, but he said that he only takes it daily Will need prn opioid for breakthrough pain while inpatient Will need to monitor closely for sign of respiratory distress while on Suboxone, Oxycodone and gabapentin PT/OT eval after ortho surgical intervention fall precaution Alcohol intoxication Alcohol abuse Pt said that he was recently discharged from alcohol rehab few days ago Pt said last alcohol drink was last night where he had 2 pins of local beers that contained 13% alcohol Alcohol level 105 on admission History of alcohol withdrawal in the past Will start on alcohol withdrawal protocol with gabapentin and Ativan Counseling on alcohol cessation Continue thiamine and folic acid Continue monitor closely for alcohol withdrawal symptoms and DT Hypertensive Urgency Possible related to alcohol intoxication an medication noncompliant ( he does not remember when was the last time he took his meds) BP on admission above 217/111 Will give labetalol 10mg now Continue Amlodipine 5mg BID Lasix and Lisinopril on hold due to elevate creatinine continue monitor BP Acute kidney injury Acute dehydration: Creatinine on admission 2.7 Received IVF, will give additional IVF Will hold lasix and lisinopril Avoid nephrotoxic agents Continue monitor BMP If creatinine worsening consider nephrology consult Hyperkalemia Possible related to Lisinopril Potassium 5.3 today Continue gently IVF Hold Lisinopril for now Will place on low K diet Check BMP in AM CAD: S/p stent H/O Cardiomyopathy Echo in 2020 EF 55% troponin on admission negative EKG showed no signs of acute ischaemia Continue aspirin, metoprolol, statin DM II Most recent A1c: 7.1 on 10/09 Continue to hold oral diabetes home medications while inpatient Starting on insulin sliding scale Might consider to add a low dose lantus 5units BID if BS elevates while inpatient Continue monitor BS closely Chronic pain: On Suboxone ( Pt said that he only takes it once, but he was prescribed it BID) Monitor closely while on breaktrough opioid, gabapentin for respiratory depression. CATALINO: H/O noncompliance with CPAP DVT Px: SCD for now since pt anticipates to go for surgery in am Code Status Full Code Case management to work for placement since pt is currently homeless History of Present Illness Chief Complaint: Left hip pain s/p fall Alcohol abuse Primary Care Provider: Charity Reed MD 56-year-old male with past medical history significant for type 2 diabetes, chronic kidney disease stage III, hyperlipidemia, ongoing tobacco abuse, ongoing alcoholism, emphysema, obstructive sleep apnea, noncompliant with CPAP, h ypertension, CAD, fatty liver, depression, anxiety disorder, history of anemia, multiple admission for alcohol withdrawal, currently homeless was brought to the ED after he had a fall. Pt said that he was in [facility] napping under a tree. when he woke up, he climbed a wall that is about 3 feet high. He fell on his left side. he said that he did not hit his head. He said that he had an excruciated pain in his left hip. He was brought to the ER. He said that the pain is constant and grade 10 out 10 in intensity. He said that left hip pain worsening with movement of the LLE. Pt said that he was recently discharged from alcohol rehab. He could not recall if he was last week or this week. He could not remember for how long that he was in rehab. He said that in the last couple days that he has been drinking 2 pins of local beer that contains 13% alcohol. He said that his last drink of alcohol was last night. He said that he has not been eating food or drinking water much. He did not remember when was the last time he took his medications. He said that he took one tab of Buprenorphine/naloxone 8-2mg tablet daily, not twice a day. I had a previous note where I documented that he has been prescribed suboxone twice a day but he only takes it once a day. Denies any any chest pain, palpitation, dizziness and SOB. Allergies Allergy/AdvReac Type Severity Reaction Status Date / Time pollen extracts Allergy Intermediate SNEEZING, Verified 11/11/22 12:05 CONGESTION Home Medications Medication Instructions Recorded Confirmed Type buprenorphine 8 mg-naloxone 2 mg 1 tab sublingual BID 09/15/21 11/11/22 History sublingual tablet atorvastatin 80 mg tablet 80 mg PO HS 10/25/21 11/11/22 History folic acid 1 mg tablet 1 mg PO QAM 10/25/21 11/11/22 History empagliflozin 10 mg tablet 10 mg PO DAILY 06/27/22 11/11/22 History (Jardiance) furosemide 40 mg tablet 40 mg PO DAILY 06/27/22 11/11/22 History glipizide 10 mg tablet, extended 20 mg PO DAILY 06/27/22 11/11/22 History release 24 hr amlodipine 5 mg tablet (Norvasc) 5 mg PO BID #60 tabs 07/06/22 11/11/22 Rx cyanocobalamin (vitamin B-12) 1,000 mcg PO DAILY 09/23/22 11/11/22 History 1,000 mcg tablet (Vitamin B-12) nitroglycerin 0.4 mg sublingual 0.4 mg sublingual DIRECTED PRN 09/23/22 11/11/22 History tablet Chest Pain thiamine HCl (vitamin B1) 100 mg 100 mg PO DAILY 09/23/22 11/11/22 History tablet (Vitamin B-1) mirtazapine 15 mg tablet 7.5 mg PO HS 11/11/22 11/11/22 History tamsulosin 0.4 mg capsule 0.4 mg PO HS 11/11/22 11/11/22 History aspirin 81 mg tablet,delayed 81 mg PO BID #60 tabs 11/15/22 Rx release carvedilol 12.5 mg tablet 25 mg PO BID #30 tabs 11/15/22 11/11/22 Rx docusate sodium 100 mg capsule 100 mg PO BID PRN Constipation #30 11/15/22 Rx caps nicotine 21 mg/24 hr daily 21 mg transdermal QAM #0 ea 11/15/22 Rx transdermal patch (Nicoderm CQ) Past Med/Surg History Medical History ONDINA (acute kidney injury) Alcohol abuse Alcohol use disorder, severe, dependence Alcohol withdrawal syndrome Bilateral edema of lower extremity Chronic anemia Diabetes mellitus type 2 with complications Discharge planning issues TONEY (dyspnea on exertion) DVT prophylaxis Encounter for pre-operative examination HTN (hypertension) Hypomagnesemia Ischemic cardiomyopathy Mood disorder Neuropathy NSTEMI (non-ST elevated myocardial infarction) Obesity CATALINO (obstructive sleep apnea) Proteinuria Smoking Tobacco use disorder Type 2 diabetes mellitus Surgical History History of cardiac catheterization 1 ELIESER to proximal OM by Dr. Guerrero on 01/01/19 History of lymph node biopsy Family History Other Diabetes Heart disease Hypertension Social History Smoking Status: Current every day smoker Tobacco Type: Cigarettes Cigarettes Per Day: 1/2 pack a day; Second Hand Exposure: No; Do You Dip or Chew Tobacco: No; Hx Alcohol Use: Yes Alcohol type: hard liquor Alcohol type Comment: 1/2 gallon vodka a day Hx Substance Use: Yes Last Used Substance: Unknown Last Used Substance Other:: Used over the weekend Substance Use Type Other:: patient said "I've used it all" Preferred Language: Khmer Communication Ability: Effective [employer] Required: No Beliefs That Will Affect Care: None marital status: Single Current Living Situation: Homeless Current Living Situation Comment: Living in car current occupational status: unemployed How many Children do You have: 2 Feels Safe at Home: Yes Assistive Devices: None Review of Systems Review of Systems: All systems reviewed & are unremarkable except as noted in HPI & below Physical Exam Physical Exam: General- No acute distress, but tired Head- atraumatic Eyes- PERRL, EOMI, no nystagmus ENT- oropharynx clear Neck- supple, no JVD Lungs- clear to auscultation Heart- +tachycardia; no murmur Abdomen- normal bowel sounds, soft, nontender Extremities- no calf tenderness, left hip tenderness Neuro- alert, awake, oriented to person, situation and place, not with time. PERRL, EOMI; no facial palsy; no dysarthria, no nystagmus, finger to nose intake, able to follow command Skin- warm & dry,abrasions over the left fourth and fifth digits Results & Data Results & Data Vital Signs (Past 12 Hours) Vital Signs Pulse Pulse Resp BP BP Pulse Ox O2 Del Method 11/11/22 11:51 112 H 20 211/117 H 99 Nasal Cannula 11/11/22 10:59 100 H 20 213/111 H 98 Nasal Cannula 11/11/22 09:23 83 22 97 Nasal Cannula 11/11/22 09:22 88 L Room Air 11/11/22 09:19 81 20 192/108 H 96 Nasal Cannula 11/11/22 08:11 87 11/11/22 08:16 88 20 185/101 H 96 Room Air O2 Flow Rate 11/11/22 11:51 2 11/11/22 10:59 2 11/11/22 09:23 2 11/11/22 09:22 11/11/22 09:19 2 11/11/22 08:11 11/11/22 08:16 Diagnostic Findings Laboratory Results WBC 5.51 K/ul (4.8-10.8) 11/11/22 08:55 RBC 3.44 M/uL (4.70-6.10) L 11/11/22 08:55 Hgb 10.5 g/dl (14.0-18.0) L 11/11/22 08:55 Hct 31.2 % (42.0-52.0) L 11/11/22 08:55 MCV 90.7 fL (80.0-100.0) 11/11/22 08:55 MCH 30.5 pg (25.0-34.0) 11/11/22 08:55 MCHC 33.7 g/dL (32.0-36.0) 11/11/22 08:55 RDW Std Deviation 39.7 fL (36.4-46.3) 11/11/22 08:55 RDW Coeff of Alberto 11.9 % (11.5-14.5) 11/11/22 08:55 Plt Count 185 K/uL (130-400) 11/11/22 08:55 MPV 9.6 fL (9.4-12.4) 11/11/22 08:55 Immature Gran % (Auto) 0.2 % 11/11/22 08:55 Neut % (Auto) 59.5 % 11/11/22 08:55 Lymph % (Auto) 29.8 % 11/11/22 08:55 Bleckley % (Auto) 6.4 % 11/11/22 08:55 Eos % (Auto) 3.4 % 11/11/22 08:55 Baso % (Auto) 0.7 % 11/11/22 08:55 Neut # (Auto) 3.28 K/uL (1.40-6.50) 11/11/22 08:55 Lymph # (Auto) 1.64 K/uL (1.20-3.40) 11/11/22 08:55 Bleckley # (Auto) 0.35 K/uL (0.11-0.59) 11/11/22 08:55 Eos # (Auto) 0.19 K/uL (0.00-0.50) 11/11/22 08:55 Baso # (Auto) 0.04 K/uL (0.00-0.20) 11/11/22 08:55 Immature Gran # (Auto) 0.01 K/uL (0.01-0.20) 11/11/22 08:55 PT 10.7 Seconds (9.0-12.0) 11/11/22 08:55 INR 1.0 (0.9-1.1) 11/11/22 08:55 APTT 27.6 Seconds (21.0-31.0) 11/11/22 08:55 PTT Ratio 1.0 11/11/22 08:55 Sodium 139 mmol/L (136-145) 11/11/22 08:55 Potassium 5.3 mmol/L (3.5-5.1) H 11/11/22 08:55 Chloride 112 mmol/L (98-107) H 11/11/22 08:55 Carbon Dioxide 21 mmol/L (21-32) 11/11/22 08:55 Anion Gap 6 (3-11) 11/11/22 08:55 BUN 54 mg/dl (6-23) H 11/11/22 08:55 Creatinine 2.69 mg/dl (0.6-1.4) H 11/11/22 08:55 Est Cr Clr Drug Dosing 35.2 ml/min 11/11/22 08:55 Est GFR ( Amer) 28.9 ml/min 11/11/22 08:55 Est GFR (Non-Af Amer) 25.0 ml/min 11/11/22 08:55 BUN/Creatinine Ratio 20.1 (10-20) H 11/11/22 08:55 Glucose 163 mg/dl (70-99(Fasting)) H 11/11/22 08:55 Calcium 8.6 mg/dl (8.6-10.3) 11/11/22 08:55 Total Bilirubin 0.5 mg/dl (0.2-1.0) 11/11/22 08:55 AST 21 U/L (13-39) 11/11/22 08:55 ALT 17 U/L (7-52) 11/11/22 08:55 Alkaline Phosphatase 86 U/L (34-104) 11/11/22 08:55 Troponin I High Sens 7.9 pg/ml (0-20) 11/11/22 08:55 Total Protein 7.2 gm/dl (6.0-8.3) 11/11/22 08:55 Albumin 3.6 gm/dl (3.4-5.0) 11/11/22 08:55 Globulin 3.6 gm/dl (2.5-4.0) 11/11/22 08:55 Albumin/Globulin Ratio 1.0 (0.9-2) 11/11/22 08:55 Lipase 50 U/L (11-82) 11/11/22 08:55 Urine Color Yellow 11/11/22 10:49 Urine Appearance Clear (Clear) 11/11/22 10:49 Urine pH 5.5 (4.5-7.5) 11/11/22 10:49 Ur Specific Zortman 1.016 (1.000-1.030) 11/11/22 10:49 Urine Protein 4+ (Negative) H 11/11/22 10:49 Urine Glucose (UA) 1+ (Negative) H 11/11/22 10:49 Urine Ketones Negative (Negative) 11/11/22 10:49 Urine Blood 1+ (Negative) H 11/11/22 10:49 Urine Nitrite Negative (Negative) 11/11/22 10:49 Urine Bilirubin Negative (Negative) 11/11/22 10:49 Urine Urobilinogen Negative (Negative) 11/11/22 10:49 Ur Leukocyte Esterase Negative (Negative) 11/11/22 10:49 Urine WBC (Auto) 1-5 /hpf (0-5) 11/11/22 10:49 Urine RBC (Auto) 0-4 /hpf (0-4) 11/11/22 10:49 U Hyaline Cast (Auto) 1-5 /lpf (0-5) 11/11/22 10:49 U Epithel Cells (Auto) 10-20 /lpf (0-5) H 11/11/22 10:49 Urine Bacteria (Auto) Negative (Negative) 11/11/22 10:49 Urine Opiates Screen Pos (Neg) H 11/11/22 10:49 Ur Methadone, Qual Neg (Neg) 11/11/22 10:49 Urine Barbiturates Neg (Neg) 11/11/22 10:49 Ur Phencyclidine (PCP) Neg (Neg) 11/11/22 10:49 U Amphetamin/Meth Scrn Neg (Neg) 11/11/22 10:49 MDMA (Ecstasy) Screen Neg (Neg) 11/11/22 10:49 U Benzodiazepines Scrn Neg (Neg) 11/11/22 10:49 Ur Cocaine Metabolite Neg (Neg) 11/11/22 10:49 U Marijuana (THC) Screen Neg (Neg) 11/11/22 10:49 Ethyl Alcohol mg/dL 105.0 mg/dl (<10.0) H 11/11/22 08:[address] 11/11/22 08:27 CT OF THE CERVICAL SPINE WITHOUT CONTRAST CLINICAL HISTORY: fall COMPARISON STUDY: Cervical spine CT September 23, 2022. TECHNIQUE: Helical axial images of the cervical spine were obtained without IV contrast. Sagittal and coronal reconstructions were viewed. Automated exposure control was utilized for the study. A dose lowering technique was utilized adhering to the principles of ALARA. FINDINGS: Alignment of the cervical spine is anatomic. Vertebral body heights are maintained. No acute cervical spine fracture or subluxation is present. There is no prevertebral edema. Facet joints are intact. Mild multilevel disc space narrowing and osteophytosis within the cervical spine is present. Slight concavity of the superior endplate of T1 is unchanged. IMPRESSION: No acute cervical spine fracture or subluxation. ACT 112: Negative or not required by law. Electronically signed by: Won Amos M.D. 11/11/2022 10:11 AM Chest X-Ray 11/11/22 08:27 XR chest 1V not portable CLINICAL HISTORY: fall TECHNIQUE: Single frontal radiograph of the chest was obtained. Comparison: Comparison is made to chest radiograph 09/23/2022 FINDINGS: No lines and tubes are seen. Cardiomegaly is noted. The aortic arch is calcified. The lungs are clear. No evidence of pleural effusion or pneumothorax. IMPRESSION: No acute chest disease. ACT 112: Negative or not required by law. Electronically signed by: Hermilo Mooney M.D. 11/11/2022 10:49 AM Elbow X-Ray 11/11/22 08:27 XR elbow LT min 3V routine CLINICAL HISTORY: Left elbow pain following fall. COMPARISON: None FINDINGS: Alignment of the left elbow is anatomic. Soft tissue swelling overlying the olecranon is noted. There is no acute fracture. There is no evidence for a left elbow joint effusion. IMPRESSION: 1. No acute fracture. No evidence for a left elbow joint effusion. 2. Soft tissue swelling overlying the olecranon. ACT 112: Negative or not required by law. Electronically signed by: Won Amos M.D. 11/11/2022 10:57 AM Hand X-Ray 11/11/22 08:27 XR hand LT min 3V routine HISTORY: 57 years-old Male fall acute left hand pain status post fall COMPARISON: None TECHNIQUE: 3 views of the left hand FINDINGS: Mild osteoarthritis. Arterial calcifications. No acute fracture, dislocation or opaque foreign body. Mild dorsal hand soft tissue swelling. IMPRESSION: No acute osseous abnormality. ACT 112: Negative or not required by law. The above report was generated using voice recognition software. It may contain grammatical, syntax or spelling errors. Electronically signed by: Suhas Ramos M.D. 11/11/2022 11:[address] 11/11/22 08:27 CT OF THE HEAD WITHOUT CONTRAST CLINICAL HISTORY: fall COMPARISON STUDY: Head CT September 23, 2022. TECHNIQUE: Helical axial images of the head were obtained without IV contrast. Automated exposure control was utilized for the study. A dose lowering technique was utilized adhering to the principles of ALARA. FINDINGS: No acute intracranial hemorrhage, midline shift or mass effect is present. 3 mm colloid cyst at the foramen of Monro is again noted. The ventricular system is unremarkable. No evidence for hydrocephalus. The basal cisterns are patent. No extra-axial collections are present. There are no findings to suggest acute dural sinus thrombosis or acute territorial infarct. No significant calvarial abnormalities are present. IMPRESSION: 1. No acute intracranial findings. 2. Stable 3 mm colloid cyst. No hydrocephalus. 3. No calvarial fracture. ACT 112: Negative or not required by law. Electronically signed by: Won Amos M.D. 11/11/2022 10:08 AM Hip/Pelvis X-Ray 11/11/22 08:27 XR hip LT 2V w pelvis HISTORY: 57 years-old Male fall acute severe left-sided hip pain status post fall COMPARISON: CT 11/13/2021 TECHNIQUE: AP view of the pelvis with 2 views of the left hip FINDINGS: Arterial calcifications. Mild osteoarthritis of the hips. There is an acute fracture within the left femoral neck which appears to be transcervical with probable mild comminution. Additionally, there is impaction with apex superolateral angulation. No dislocation. IMPRESSION: Acute, angulated and impacted transcervical fracture of the left femur. ACT 112: Negative or not required by law. The above report was generated using voice recognition software. It may contain grammatical, syntax or spelling errors. Electronically signed by: Suhas Ramos M.D. 11/11/2022 11:[address] 11/11/22 08:27 CT lumbar spine wo con CLINICAL HISTORY: fall COMPARISON STUDY: Lumbar spine CT December 10, 2017. Lumbar spine MRI December 12, 2017. TECHNIQUE: Axial images of the lumbar spine were obtained without IV contrast. Sagittal and coronal reconstructions were viewed. Automated exposure control was utilized for the study. A dose lowering technique was utilized adhering to the principles of ALARA. FINDINGS: For purposes of numbering on this exam, the L5-S1 disc space is assigned to axial image 369 of 471. No acute lumbar spine fracture is present. Concavity of the anterior aspect of the superior plate of L5 is unchanged since prior CT and MRI. No osseous lesions are noted. There is moderate multilevel facet arthrosis. There is mild multilevel disc space narrowing. The central canal and neural foramen are suboptimally assessed given CT technique. Disc bulge, facet arthrosis and ligamentous hypertrophy results in moderate to severe central canal stenosis at L3-L4. Paravertebral soft tissues are unremarkable. IMPRESSION: 1. No acute lumbar spine fracture or subluxation. 2. Moderate to severe central canal stenosis at L3-L4 due to disc bulge, facet arthrosis and ligamentous hypertrophy, suboptimally assessed by CT. ACT 112: Negative or not required by law. Electronically signed by: Won Amos M.D. 11/11/2022 10:20 AM (1) Closed fracture of left hip Encounter type: initial encounter Qualified Code(s): S72.002A - Fracture of unspecified part of neck of left femur, initial encounter for closed fracture
--- NOTE | 2022-11-11 13:31 | Orthopedic Consultation ---
Date of Consultation November 11, 2022 Assessment & Plan (1) Closed left hip fracture: NPO after midnight tonight Consent signed and extremity marked by Dr. Fritz Patient will need medical and anesthesia clearance before proceeding with total hip arthroplasty OR room booked for tomorrow (pending) Pain control per medicine service Case management to eval for placement in rehab facility. (Pt is currently homeless) Supervising Physician Co-Signing Physician Notes I saw and examined patient, reviewed his hip x-rays, labs, vital signs, and formulated the treatment plan, which was the substantive portion of the visit. Agree with above note. He is at high risk for complications from surgery due to his alcoholism, smoking, poor nutrition, homelessness, and history of falls. I had a long discussion with him about his smoking and alcoholism, and that he needs to stop smoking and drinking in order to be an active participant in his own health, and decrease the risk of future problems. History of Present Illness Reason for Consultation: left femoral neck fracture Requesting Physician: Juvenal Fritz MD History of Present Illness 56-year-old male with past medical history significant for type 2 diabetes, chronic kidney disease stage III, hyperlipidemia, ongoing tobacco abuse, ongoing alcoholism, emphysema, obstructive sleep apnea, noncompliant with CPAP, hypertension, CAD, fatty liver, depression, anxiety disorder, history of anemia, currently homeless was brought to the ED after he had a fall. Pt said that he was in [facility] naping under a tree. when he woke up, he climbed a wall that is about3 feet high. He fell on his left side. he said that he did not hit his head. He said that he had an excruciated pain in his left hip. He was brought to the ER. Pt said that he was recently discharged from alcohol rehab. He could not recall if he was last week or this week. He could not remember for how long that he was in rehab. He said that in the last couple days that he has been drinking 4 pints of local beer that contains 13% alcohol. He said that his last drink of alcohol was last night. He said that he has not been eating or drinking water much. He is currently homeless. Allergies Allergy/AdvReac Type Severity Reaction Status Date / Time pollen extracts Allergy Intermediate SNEEZING, Verified 11/11/22 12:05 CONGESTION Home Medications Medication Instructions Recorded Confirmed Type buprenorphine 8 mg-naloxone 2 mg 1 tab sublingual BID 09/15/21 11/11/22 History sublingual tablet atorvastatin 80 mg tablet 80 mg PO HS 10/25/21 11/11/22 History folic acid 1 mg tablet 1 mg PO QAM 10/25/21 11/11/22 History empagliflozin 10 mg tablet 10 mg PO DAILY 06/27/22 11/11/22 History (Jardiance) furosemide 40 mg tablet 40 mg PO DAILY 06/27/22 11/11/22 History glipizide 10 mg tablet, extended 20 mg PO DAILY 06/27/22 11/11/22 History release 24 hr amlodipine 5 mg tablet (Norvasc) 5 mg PO BID #60 tabs 07/06/22 11/11/22 Rx carvedilol 12.5 mg tablet 12.5 mg PO BID 09/23/22 11/11/22 History cyanocobalamin (vitamin B-12) 1,000 mcg PO DAILY 09/23/22 11/11/22 History 1,000 mcg tablet (Vitamin B-12) nitroglycerin 0.4 mg sublingual 0.4 mg sublingual DIRECTED PRN 09/23/22 11/11/22 History tablet Chest Pain thiamine HCl (vitamin B1) 100 mg 100 mg PO DAILY 09/23/22 11/11/22 History tablet (Vitamin B-1) lisinopril 10 mg PO DAILY 11/11/22 11/11/22 History mirtazapine 15 mg tablet 7.5 mg PO HS 11/11/22 11/11/22 History tamsulosin 0.4 mg capsule 0.4 mg PO HS 11/11/22 11/11/22 History Patient History Medical History ONDINA (acute kidney injury) Alcohol abuse Alcohol use disorder Alcohol use disorder, severe, dependence Alcohol withdrawal Alcohol withdrawal syndrome Bilateral edema of lower extremity Chronic anemia Diabetes mellitus type 2 with complications Discharge planning issues TONEY (dyspnea on exertion) TONYE (dyspnea on exertion) DVT prophylaxis Edema Elevated troponin HTN (hypertension) Hypomagnesemia Hypomagnesemia Ischemic cardiomyopathy Mood disorder Neuropathy NSTEMI (non-ST elevated myocardial infarction) Obesity CATALINO (obstructive sleep apnea) CATALINO (obstructive sleep apnea) Proteinuria Smoking Tobacco use disorder Type 2 diabetes mellitus Surgical History History of cardiac catheterization 1 ELIESER to proximal OM by Dr. Guerrero on 01/01/19 History of lymph node biopsy Family History Other Diabetes Heart disease Hypertension Social History Smoking Status: Current every day smoker Tobacco Type: Cigarettes Cigarettes Per Day: 1/2 pack a day; Second Hand Exposure: No; Do You Dip or Chew Tobacco: No; Hx Alcohol Use: Yes Alcohol type: hard liquor Alcohol type Comment: 1/2 gallon vodka a day Hx Substance Use: Yes Last Used Substance: Unknown Last Used Substance Other:: Used over the weekend Substance Use Type Other:: patient said "I've used it all" Preferred Language: Togolese Communication Ability: Effective Bead Flipper Required: No Beliefs That Will Affect Care: None marital status: Single Current Living Situation: Homeless Current Living Situation Comment: Living in car current occupational status: unemployed How many Children do You have: 2 Feels Safe at Home: Yes Assistive Devices: None Review of Systems Review of Systems: All systems reviewed & are unremarkable except as noted in Subjective Physical Exam Constitutional: WD/WN, vitals as above Eyes: PERRL, conjunctivae normal, anicteric sclerae Respiratory: Auscultation: + diminished lung sounds and + rhonchi Cardiovascular: Rate/Rhythm: regular rate and regular rhythm Heart Sounds: + murmur Gastrointestinal (Abdomen): Inspection/Auscultation: normal bowel sounds Musculoskeletal: Hip: + deformity (Left LE shortened and externally rotated), + limited ROM of hip and + log roll test positive Neurologic: patellar DTR's 2+ bilat, sensation intact and PERRL, EOMI, accommodation nl, no face palsy, no dysarthria Results & Data Vital Signs (Past 12 Hours) Vital Signs Pulse Pulse Resp BP BP Pulse Ox O2 Del Method 11/11/22 12:18 112 H 11/11/22 11:51 112 H 20 211/117 H 99 Nasal Cannula 11/11/22 10:59 100 H 20 213/111 H 98 Nasal Cannula 11/11/22 09:23 83 22 97 Nasal Cannula 08/25/23 09:22 88 L Room Air 11/11/22 09:19 81 20 192/108 H 96 Nasal Cannula 11/11/22 08:11 87 11/11/22 08:16 88 20 185/101 H 96 Room Air O2 Flow Rate 11/11/22 12:18 11/11/22 11:51 2 11/11/22 10:59 2 11/11/22 09:23 2 11/11/22 09:22 11/11/22 09:19 2 11/11/22 08:11 11/11/22 08:16 Diagnostic Findings Laboratory Results WBC 5.51 K/ul (4.8-10.8) 11/11/22 08:55 RBC 3.44 M/uL (4.70-6.10) L 11/11/22 08:55 Hgb 10.5 g/dl (14.0-18.0) L 11/11/22 08:55 Hct 31.2 % (42.0-52.0) L 11/11/22 08:55 MCV 90.7 fL (80.0-100.0) 11/11/22 08:55 MCH 30.5 pg (25.0-34.0) 11/11/22 08:55 MCHC 33.7 g/dL (32.0-36.0) 11/11/22 08:55 RDW Std Deviation 39.7 fL (36.4-46.3) 11/11/22 08:55 RDW Coeff of Alberto 11.9 % (11.5-14.5) 11/11/22 08:55 Plt Count 185 K/uL (130-400) 11/11/22 08:55 MPV 9.6 fL (9.4-12.4) 11/11/22 08:55 Immature Gran % (Auto) 0.2 % 11/11/22 08:55 Neut % (Auto) 59.5 % 11/11/22 08:55 Lymph % (Auto) 29.8 % 11/11/22 08:55 Benzie % (Auto) 6.4 % 11/11/22 08:55 Eos % (Auto) 3.4 % 11/11/22 08:55 Baso % (Auto) 0.7 % 11/11/22 08:55 Neut # (Auto) 3.28 K/uL (1.40-6.50) 11/11/22 08:55 Lymph # (Auto) 1.64 K/uL (1.20-3.40) 11/11/22 08:55 Benzie # (Auto) 0.35 K/uL (0.11-0.59) 11/11/22 08:55 Eos # (Auto) 0.19 K/uL (0.00-0.50) 11/11/22 08:55 Baso # (Auto) 0.04 K/uL (0.00-0.20) 11/11/22 08:55 Immature Gran # (Auto) 0.01 K/uL (0.01-0.20) 11/11/22 08:55 PT 10.7 Seconds (9.0-12.0) 11/11/22 08:55 INR 1.0 (0.9-1.1) 11/11/22 08:55 APTT 27.6 Seconds (21.0-31.0) 11/11/22 08:55 PTT Ratio 1.0 11/11/22 08:55 Sodium 139 mmol/L (136-145) 11/11/22 08:55 Potassium 5.3 mmol/L (3.5-5.1) H 11/11/22 08:55 Chloride 112 mmol/L (98-107) H 11/11/22 08:55 Carbon Dioxide 21 mmol/L (21-32) 11/11/22 08:55 Anion Gap 6 (3-11) 11/11/22 08:55 BUN 54 mg/dl (6-23) H 11/11/22 08:55 Creatinine 2.69 mg/dl (0.6-1.4) H 11/11/22 08:55 Est Cr Clr Drug Dosing 35.2 ml/min 11/11/22 08:55 Est GFR ( Amer) 28.9 ml/min 11/11/22 08:55 Est GFR (Non-Af Amer) 25.0 ml/min 11/11/22 08:55 BUN/Creatinine Ratio 20.1 (10-20) H 11/11/22 08:55 Glucose 163 mg/dl (70-99(Fasting)) H 11/11/22 08:55 Calcium 8.6 mg/dl (8.6-10.3) 11/11/22 08:55 Total Bilirubin 0.5 mg/dl (0.2-1.0) 11/11/22 08:55 AST 21 U/L (13-39) 11/11/22 08:55 ALT 17 U/L (7-52) 11/11/22 08:55 Alkaline Phosphatase 86 U/L (34-104) 11/11/22 08:55 Troponin I High Sens 7.9 pg/ml (0-20) 11/11/22 08:55 Total Protein 7.2 gm/dl (6.0-8.3) 11/11/22 08:55 Albumin 3.6 gm/dl (3.4-5.0) 11/11/22 08:55 Globulin 3.6 gm/dl (2.5-4.0) 11/11/22 08:55 Albumin/Globulin Ratio 1.0 (0.9-2) 11/11/22 08:55 Lipase 50 U/L (11-82) 11/11/22 08:55 Urine Color Yellow 11/11/22 10:49 Urine Appearance Clear (Clear) 11/11/22 10:49 Urine pH 5.5 (4.5-7.5) 11/11/22 10:49 Ur Specific [place] 1.016 (1.000-1.030) 11/11/22 10:49 Urine Protein 4+ (Negative) H 11/11/22 10:49 Urine Glucose (UA) 1+ (Negative) H 11/11/22 10:49 Urine Ketones Negative (Negative) 11/11/22 10:49 Urine Blood 1+ (Negative) H 11/11/22 10:49 Urine Nitrite Negative (Negative) 11/11/22 10:49 Urine Bilirubin Negative (Negative) 11/11/22 10:49 Urine Urobilinogen Negative (Negative) 11/11/22 10:49 Ur Leukocyte Esterase Negative (Negative) 11/11/22 10:49 Urine WBC (Auto) 1-5 /hpf (0-5) 11/11/22 10:49 Urine RBC (Auto) 0-4 /hpf (0-4) 11/11/22 10:49 U Hyaline Cast (Auto) 1-5 /lpf (0-5) 11/11/22 10:49 U Epithel Cells (Auto) 10-20 /lpf (0-5) H 11/11/22 10:49 Urine Bacteria (Auto) Negative (Negative) 11/11/22 10:49 Urine Opiates Screen Pos (Neg) H 11/11/22 10:49 Ur Methadone, Qual Neg (Neg) 11/11/22 10:49 Urine Barbiturates Neg (Neg) 11/11/22 10:49 Ur Phencyclidine (PCP) Neg (Neg) 11/11/22 10:49 U Amphetamin/Meth Scrn Neg (Neg) 11/11/22 10:49 MDMA (Ecstasy) Screen Neg (Neg) 11/11/22 10:49 U Benzodiazepines Scrn Neg (Neg) 11/11/22 10:49 Ur Cocaine Metabolite Neg (Neg) 11/11/22 10:49 U Marijuana (THC) Screen Neg (Neg) 11/11/22 10:49 Ethyl Alcohol mg/dL 105.0 mg/dl (<10.0) H 11/11/22 08:[address] 11/11/22 08:27 CT OF THE CERVICAL SPINE WITHOUT CONTRAST CLINICAL HISTORY: fall COMPARISON STUDY: Cervical spine CT September 23, 2022. TECHNIQUE: Helical axial images of the cervical spine were obtained without IV contrast. Sagittal and coronal reconstructions were viewed. Automated exposure control was utilized for the study. A dose lowering technique was utilized adhering to the principles of ALARA. FINDINGS: Alignment of the cervical spine is anatomic. Vertebral body heights are maintained. No acute cervical spine fracture or subluxation is present. There is no prevertebral edema. Facet joints are intact. Mild multilevel disc space narrowing and osteophytosis within the cervical spine is present. Slight concavity of the superior endplate of T1 is unchanged. IMPRESSION: No acute cervical spine fracture or subluxation. ACT 112: Negative or not required by law. Electronically signed by: Won Amos M.D. 11/11/2022 10:11 AM Chest X-Ray 11/11/22 08:27 XR chest 1V not portable CLINICAL HISTORY: fall TECHNIQUE: Single frontal radiograph of the chest was obtained. Comparison: Comparison is made to chest radiograph 09/23/2022 FINDINGS: No lines and tubes are seen. Cardiomegaly is noted. The aortic arch is calcifie d. The lungs are clear. No evidence of pleural effusion or pneumothorax. IMPRESSION: No acute chest disease. ACT 112: Negative or not required by law. Electronically signed by: Hermilo Mooney M.D. 11/11/2022 10:49 AM Elbow X-Ray 11/11/22 08:27 XR elbow LT min 3V routine CLINICAL HISTORY: Left elbow pain following fall. COMPARISON: None FINDINGS: Alignment of the left elbow is anatomic. Soft tissue swelling overlying the olecranon is noted. There is no acute fracture. There is no evidence for a left elbow joint effusion. IMPRESSION: 1. No acute fracture. No evidence for a left elbow joint effusion. 2. Soft tissue swelling overlying the olecranon. ACT 112: Negative or not required by law. Electronically signed by: Won Amos M.D. 11/11/2022 10:57 AM Hand X-Ray 11/11/22 08:27 XR hand LT min 3V routine HISTORY: 57 years-old Male fall acute left hand pain status post fall COMPARISON: None TECHNIQUE: 3 views of the left hand FINDINGS: Mild osteoarthritis. Arterial calcifications. No acute fracture, dislocation or opaque foreign body. Mild dorsal hand soft tissue swelling. IMPRESSION: No acute osseous abnormality. ACT 112: Negative or not required by law. The above report was generated using voice recognition software. It may contain grammatical, syntax or spelling errors. Electronically signed by: Suhas Ramos M.D. 11/11/2022 11:[address] 11/11/22 08:27 CT OF THE HEAD WITHOUT CONTRAST CLINICAL HISTORY: fall COMPARISON STUDY: Head CT September 23, 2022. TECHNIQUE: Helical axial images of the head were obtained without IV contrast. Automated exposure control was utilized for the study. A dose lowering technique was utilized adhering to the principles of ALARA. FINDINGS: No acute intracranial hemorrhage, midline shift or mass effect is present. 3 mm colloid cyst at the foramen of [place] is again noted. The ventricular system is unremarkable. No evidence for hydrocephalus. The basal cisterns are patent. No extra-axial collections are present. There are no findings to suggest acute dural sinus thrombosis or acute territorial infarct. No significant calvarial abnormalities are present. IMPRESSION: 1. No acute intracranial findings. 2. Stable 3 mm colloid cyst. No hydrocephalus. 3. No calvarial fracture. ACT 112: Negative or not required by law. Electronically signed by: Won Amos M.D. 11/11/2022 10:08 AM Hip/Pelvis X-Ray 11/11/22 08:27 XR hip LT 2V w pelvis HISTORY: 57 years-old Male fall acute severe left-sided hip pain status post fall COMPARISON: CT 11/13/2021 TECHNIQUE: AP view of the pelvis with 2 views of the left hip FINDINGS: Arterial calcifications. Mild osteoarthritis of the hips. There is an acute fracture within the left femoral neck which appears to be transcervical with probable mild comminution. Additionally, there is impaction with apex superolateral angulation. No dislocation. IMPRESSION: Acute, angulated and impacted transcervical fracture of the left femur. ACT 112: Negative or not required by law. The above report was generated using voice recognition software. It may contain grammatical, syntax or spelling errors. Electronically signed by: Suhas Ramos M.D. 11/11/2022 11:[address] 11/11/22 08:27 CT lumbar spine wo con CLINICAL HISTORY: fall COMPARISON STUDY: Lumbar spine CT December 10, 2017. Lumbar spine MRI December 12, 2017. TECHNIQUE: Axial images of the lumbar spine were obtained without IV contrast. Sagittal and coronal reconstructions were viewed. Automated exposure control was utilized for the study. A dose lowering technique was utilized adhering to the principles of ALARA. FINDINGS: For purposes of numbering on this exam, the L5-S1 disc space is assigned to axial image 369 of 471. No acute lumbar spine fracture is present. Concavity of the anterior aspect of the superior plate of L5 is unchanged since prior CT and MRI. No osseous lesions are noted. There is moderate multilevel facet arthrosis. There is mild multilevel disc space narrowing. The central canal and neural foramen are suboptimally assessed given CT technique. Disc bulge, facet arthrosis and ligamentous hypertrophy results in moderate to severe central canal stenosis at L3-L4. Paravertebral soft tissues are unremarkable. IMPRESSION: 1. No acute lumbar spine fracture or subluxation. 2. Moderate to severe central canal stenosis at L3-L4 due to disc bulge, facet arthrosis and ligamentous hypertrophy, suboptimally assessed by CT. ACT 112: Negative or not required by law. Electronically signed by: Won Amos M.D. 11/11/2022 10:20 AM
[2022-11-11] MEDS ORDERED: HYDROmorphone INJ 0.5 MG/0.5 ML SYR IV STA ×2 (15:10→15:27)
[2022-11-11] MEDS ORDERED: LABETALOL HCL IV 5 MG/ML 20ML IV STA ×2 (15:10→15:27)
[2022-11-11] MEDS ORDERED: oxyCODONE HCL IR 5 MG TAB (IMMEDIATE RELEASE) PO PRN ×2 (15:27→19:59)
[2022-11-11] MEDS ORDERED: bisacodyL 10 MG SUPP PR PRN (15:27)
[2022-11-11] MEDS ORDERED: SODIUM CHLORIDE 0.9% 1000ML 1,000 ML IV SCH (15:27)
[2022-11-11] MEDS ORDERED: CARBOHYDRATES FOR HYPOGLYCEMIA PO PRN (15:27)
[2022-11-11] MEDS ORDERED: DEXTROSE 50% 50 ML SYRINGE IV PRN (15:27)
[2022-11-11] MEDS ORDERED: MAGNESIUM HYDROXIDE SUSP 30 ML UDC PO PRN (15:27)
[2022-11-11] MEDS ORDERED: GLUCAGON FOR INJ 1 MG VIAL SQ PRN (15:27)
[2022-11-11] MEDS ORDERED: LORazepam 2 MG/1 ML VIAL IV PRN (15:27)
[2022-11-11] MEDS ORDERED: GLUCOSE 10 TAB/TUBE PO PRN (15:27)
[2022-11-11] MEDS ORDERED: GABAPENTIN 800MG ALCOHOL WITHDRAWAL LOAD PO ONE (15:27)
[2022-11-11] MEDS ORDERED: NALOXONE HCL 0.4 MG/1 ML VIAL/CARP IV PRN (15:27)
[2022-11-11] MEDS ORDERED: GLUCOSE 40% GEL 15 GM TUBE PO PRN (15:27)
[2022-11-11] MEDS ORDERED: GABAPENTIN 400 MG CAP PO ONE (15:45)
--- NOTE | 2022-11-11 16:35 | Electrocardiogram Report ---
Test Reason : Blood Pressure : / mmHG Vent. Rate : 083 BPM Atrial Rate : 083 BPM P-R Int : 208 ms QRS Dur : 096 ms QT Int : 378 ms P-R-T Axes : 060 -01 063 degrees QTc Int : 444 ms Normal sinus rhythm Normal ECG When compared with ECG of 23-SEP-2022 15:17, Nonspecific T wave abnormality no longer evident in Lateral leads Confirmed by Yobani Farris ([id number]) on 11/11/2022 4:35:06 PM Referred By: REFERRED SELF Confirmed By:Yobani Farris
--- NOTE | 2022-11-11 17:47 | Anesthesiology Consultation ---
Date of Service November 11, 2022 Assessment & Plan (1) Encounter for pre-operative examination: Chart Review Chart Review: Pending: Refer to Additional Notes / Consult section and Patient NOT seen in Pre Admission Testing Will need continued treatment for possible EtOH withdrawal overnight along with aggressive BP management. Will reassess in AM to determine if he is appropriately optimized to undergo hip surgery. Consults Requested none History Surgery Operation Date: 11/12/22 07:30 Proposed Procedures p Left Total Hip Arthroplasty - Juvenal Fritz MD Height/Weight Height: 5 ft 8 in Weight: 105 kg Allergies Allergy/AdvReac Type Severity Reaction Status Date / Time pollen extracts Allergy Intermediate SNEEZING, Verified 11/11/22 12:05 CONGESTION Medications Home Medications Medication Instructions Recorded Confirmed Last Taken buprenorphine 8 mg-naloxone 2 mg 1 tab sublingual BID 09/15/21 11/11/22 11/13/21 sublingual tablet x1 atorvastatin 80 mg tablet 80 mg PO HS 10/25/21 11/11/22 11/10/21 folic acid 1 mg tablet 1 mg PO QAM 10/25/21 11/11/22 11/10/21 empagliflozin 10 mg tablet 10 mg PO DAILY 06/27/22 11/11/22 Unknown (Jardiance) furosemide 40 mg tablet 40 mg PO DAILY 06/27/22 11/11/22 Unknown glipizide 10 mg tablet, extended 20 mg PO DAILY 06/27/22 11/11/22 Unknown release 24 hr amlodipine 5 mg tablet (Norvasc) 5 mg PO BID #60 tabs 07/06/22 11/11/22 Unknown carvedilol 12.5 mg tablet 12.5 mg PO BID 09/23/22 11/11/22 Unknown cyanocobalamin (vitamin B-12) 1,000 mcg PO DAILY 09/23/22 11/11/22 Unknown 1,000 mcg tablet (Vitamin B-12) nitroglycerin 0.4 mg sublingual 0.4 mg sublingual DIRECTED PRN 09/23/22 11/11/22 Unknown tablet Chest Pain thiamine HCl (vitamin B1) 100 mg 100 mg PO DAILY 09/23/22 11/11/22 Unknown tablet (Vitamin B-1) lisinopril 10 mg PO DAILY 11/11/22 11/11/22 Unknown mirtazapine 15 mg tablet 7.5 mg PO HS 11/11/22 11/11/22 Unknown tamsulosin 0.4 mg capsule 0.4 mg PO HS 11/11/22 11/11/22 Unknown Past Medical History Medical History (Updated 11/11/22 @ 17:51 by Gregor Lieberman MD) ONDINA (acute kidney injury) Alcohol abuse Alcohol use disorder, severe, dependence Alcohol withdrawal syndrome Bilateral edema of lower extremity Chronic anemia Diabetes mellitus type 2 with complications Discharge planning issues TONEY (dyspnea on exertion) DVT prophylaxis Encounter for pre-operative examination HTN (hypertension) Hypomagnesemia Ischemic cardiomyopathy Mood disorder Neuropathy NSTEMI (non-ST elevated myocardial infarction) Obesity CATALINO (obstructive sleep apnea) Proteinuria Smoking Tobacco use disorder Type 2 diabetes mellitus Past Family History Family History Other Diabetes Heart disease Hypertension Past Surgical History Surgical History History of cardiac catheterization 1 ELIESER to proximal OM by Dr. Guerrero on 01/01/19 History of lymph node biopsy Social History Smoking Status: Current every day smoker tobacco type: cigarettes Smoking cigarettes per day: 1/2 pack a day Do You Dip or Chew Tobacco: No Hx Alcohol Use: Yes Alcohol type: hard liquor alcohol intake frequency: 0-2 drinks per day Hx Substance Use: Yes substance use type: former substance user and marijuana Substance Use Type Other:: patient said "I've used it all" Last Used Substance: Unknown Last Used Substance Other:: Used over the weekend Physical Exam Vital Signs Last Vital Signs Pulse 92 H 11/11/22 16:25 Resp 16 11/11/22 16:25 BP 204/111 H 11/11/22 16:25 Pulse Ox 96 11/11/22 16:25 O2 Del Method Nasal Cannula 11/11/22 16:25 O2 Flow Rate 2 11/11/22 16:25 Testing Laboratory Results 11/11/22 08:55 11/11/22 08:55 PT 10.7 Seconds (9.0-12.0) 11/11/22 08:55 INR 1.0 (0.9-1.1) 11/11/22 08:55 APTT 27.6 Seconds (21.0-31.0) 11/11/22 08:55 Urine Color Yellow 11/11/22 10:49 Urine Appearance Clear (Clear) 11/11/22 10:49 Urine pH 5.5 (4.5-7.5) 11/11/22 10:49 Ur Specific [place] 1.016 (1.000-1.030) 11/11/22 10:49 Urine Protein 4+ (Negative) H 11/11/22 10:49 Urine Glucose (UA) 1+ (Negative) H 11/11/22 10:49 Urine Ketones Negative (Negative) 11/11/22 10:49 Urine Nitrite Negative (Negative) 11/11/22 10:49 Ur Leukocyte Esterase Negative (Negative) 11/11/22 10:49 Urine WBC (Auto) 1-5 /hpf (0-5) 11/11/22 10:49 Urine RBC (Auto) 0-4 /hpf (0-4) 11/11/22 10:49 U Hyaline Cast (Auto) 1-5 /lpf (0-5) 11/11/22 10:49 U Epithel Cells (Auto) 10-20 /lpf (0-5) H 11/11/22 10:49 Urine Bacteria (Auto) Negative (Negative) 11/11/22 10:49 Blood Type O Positive 11/11/22 15:35 Antibody Screen NEGATIVE 11/11/22 15:35 Electrocardiogram Date: 11/11/22 DICTATED BY:Yobani Farris MD Test Reason : Blood Pressure : / mmHG Vent. Rate : 083 BPM Atrial Rate : 083 BPM P-R Int : 208 ms QRS Dur : 096 ms QT Int : 378 ms P-R-T Axes : 060 -01 063 degrees QTc Int : 444 ms Normal sinus rhythm Normal ECG When compared with ECG of 23-SEP-2022 15:17, Nonspecific T wave abnormality no longer evident in Lateral leads Confirmed by Yobani Farris ([id number]) on 11/11/2022 4:35:06 PM Chest X-Ray Date: 11/11/22 XR chest 1V not portable CLINICAL HISTORY: fall TECHNIQUE: Single frontal radiograph of the chest was obtained. Comparison: Comparison is made to chest radiograph 09/23/2022 FINDINGS: No lines and tubes are seen. Cardiomegaly is noted. The aortic arch is calcified. The lungs are clear. No evidence of pleural effusion or pneumothorax. IMPRESSION: No acute chest disease. Echocardiogram Date: 06/21/21 LV is normal in size. LV wall motion is normal. EF 55-60% Grade 1 DD No significant aortic stenosis. No sig valvular disease is identified. Other Testing CT head /Cervical spine and lumbar spine showed no acute finding
[2022-11-11] MEDS: LABETALOL HCL IV 5 MG/ML 20ML IV PRN (19:21)
[2022-11-11] MEDS: INSULIN ASPART PER UNIT CHARGE SC SCH ×2 (19:21→21:23)
[2022-11-11] MEDS ORDERED: oxyCODONE HCL IR 5 MG TAB (IMMEDIATE RELEASE) PO STA (19:59)
[2022-11-11] MEDS ORDERED: MoRPHine SULFATE 4 MG/ML 1 ML CARP\\VIAL IV PRN (20:00)
[2022-11-11] MEDS ORDERED: HYDROmorphone INJ 0.5 MG/0.5 ML SYR IV PRN (20:02)
[2022-11-11] MEDS ORDERED: amLODIPine BESYLATE 5 MG TAB PO SCH (21:00)
[2022-11-11] MEDS ORDERED: carvediloL 12.5 MG TAB PO SCH (21:00)
[2022-11-11] MEDS: carvediloL 12.5 MG TAB PO SCH (21:21)
[2022-11-11] MEDS: amLODIPine BESYLATE 5 MG TAB PO SCH (21:21)
[2022-11-11] MEDS: ATORVASTATIN 40 MG TAB PO SCH (21:21)
[2022-11-11] MEDS: GABAPENTIN 400 MG CAP PO SCH (21:24)
[2022-11-11] MEDS: TAMSULOSIN HCL 0.4 MG CAP PO SCH (21:32)
[2022-11-11] MEDS: MIRTAZAPINE TAB 15 MG TAB PO SCH (21:32)
[2022-11-12] MEDS: GABAPENTIN 400 MG CAP PO SCH ×3 (03:12→17:49)
[2022-11-12] MEDS: LABETALOL HCL IV 5 MG/ML 20ML IV PRN (03:15)
[2022-11-12] MEDS ORDERED: INSULIN ASPART PER UNIT CHARGE SC SCH (06:00)
[2022-11-12] MEDS ORDERED: NEOSTIGMINE METHYLSULFATE 1 MG/ML 10ML VIAL ONE (06:57)
[2022-11-12] MEDS ORDERED: DEXAMETHASONE SOD INJ 4 MG/ML VIAL ONE (06:57)
[2022-11-12] MEDS ORDERED: LIDOCAINE 2% 2 ML VIAL/AMP(20MG/ML) INFIL ONE (06:57)
[2022-11-12] MEDS ORDERED: ONDANSETRON INJ 2 MG/ML 2 ML VIAL ONE (06:57)
[2022-11-12] MEDS ORDERED: MIDAZOLAM HCL 1 MG/ML 2ML VIAL ONE (06:58)
[2022-11-12] MEDS ORDERED: fentaNYL citrate PF 100 MCG/2 ML VIAL ONE (06:58)
[2022-11-12] MEDS ORDERED: GLYCOPYRROLATE 0.2 MG/ML VIAL ONE (06:58)
[2022-11-12] MEDS ORDERED: PROPOFOL IV EMULSION 10 MG/ML 20 ML VIAL IV ONE (06:58)
[2022-11-12] MEDS ORDERED: ceFAZolin 330 MG/ML 1 GM VIAL ONE ×2 (07:02)
[2022-11-12] MEDS ORDERED: KETAMINE 50 MG/5 ML SYRINGE ONE (07:08)
[2022-11-12 07:09] LABS: Hematocrit (blood only) 29.6 % (42.0-52.0); Hemoglobin 10.1 g/dl (14.0-18.0); Mean Corpuscular Hemoglobin 30.8 pg (25.0-34.0); Mean Corpuscular Hgb Conc 34.1 g/dL (32.0-36.0); Mean Corpuscular Volume 90.2 fL (80.0-100.0); Mean Platelet Volume 9.7 fL (9.4-12.4); Platelet Count 161 K/uL (130-400); RDW Coefficient of Variation 11.6 % (11.5-14.5); RDW Standard Deviation 38.5 fL (36.4-46.3); Red Blood Count 3.28 M/uL (4.70-6.10); White Blood Count 6.93 K/ul (4.8-10.8)
--- NOTE | 2022-11-12 07:42 | Orthopedic Progress Note ---
Date of Service November 12, 2022 Assessment & Plan (1) Closed left hip fracture: Plan: Proceed to OR this morning for total hip. Informed consent already signed. All questions answered. Re-admit to internal medicine after surgery Pain control per medicine service Case management to eval for placement in rehab facility. (Pt is currently homeless) Admission and Anticipated Discharge Date Admission Date: November 11, 2022 Supervising Physician Co-Signing Physician Notes Subjective Patient reports he got some sleep overnight, pain under reasonable control. Denies f/c/cp/sob. Physical Exam Physical Exam: Resting comfortably in bed in NAD. Distally NVI Results & Data Vital Signs (Past 12 Hours) Vital Signs Temp Pulse Pulse Resp BP BP Pulse Ox 11/11/22 23:59 76 11/12/22 03:30 67 189/89 H 11/12/22 03:15 67 195/95 H 11/12/22 02:46 36.8 C 66 18 191/95 H 97 11/11/22 22:41 36.4 C L 73 20 170/89 H 94 O2 Del Method 11/11/22 23:59 11/12/22 03:30 11/12/22 03:15 11/12/22 02:46 Nasal Cannula 11/11/22 22:41 Room Air
[2022-11-12] MEDS ORDERED: ATROPINE SULFATE 0.1 MG/ML 10ML SYR IV PRN (07:48)
[2022-11-12] MEDS ORDERED: ePHEDrine sulfate 50 MG/ML AMP IV PRN (07:48)
[2022-11-12] MEDS ORDERED: HYDROmorphone INJ 2 MG/ML SYR/VIAL IV PRN (07:48)
[2022-11-12] MEDS ORDERED: DexMEDEtomidine HCL IV 100 MCG/ML VIAL IV ONE (07:52)
[2022-11-12 07:57] LABS: BUN Creatinine Ratio 25.5 (10-20); Calcium 8.5 mg/dl (8.6-10.3); Creatinine Clr Calc Pharmacy 51.4 ml/min; Est GFR (African American) 45.8 ml/min; Est GFR (Non-African American) 39.5 ml/min; Potassium 4.5 mmol/L (3.5-5.1)
[2022-11-12] MEDS ORDERED: ROPIVACAINE 0.5% HCL/PF 150 MG, BUPIVACAINE 0.75% MPF 20 ML, EPINEPHrine 0.15 MG, Ketor... INFIL SCH (08:05)
[2022-11-12] MEDS ORDERED: TRANEXAMIC ACID / 0.7% NACL 1000MG/100ML BAG IV ONE ×2 (08:12→08:36)
[2022-11-12] MEDS ORDERED: ceFAZolin 2000MG 2,000 MG/15 ML SYR IV ONE (08:54)
[2022-11-12] MEDS ORDERED: HYDROmorphone INJ 2 MG/ML SYR/VIAL ONE (08:59)
[2022-11-12] MEDS ORDERED: SUGAMMADEX SODIUM 200 MG/2 ML VIAL IV ONE (09:12)
[2022-11-12] MEDS ORDERED: ONDANSETRON INJ 2 MG/ML 2 ML VIAL IV PRN (09:53)
[2022-11-12] MEDS ORDERED: HYDROmorphone INJ 0.5 MG/0.5 ML SYR IV PRN (09:53)
[2022-11-12] MEDS ORDERED: diphenhydrAMINE 50 MG/ML VIAL IV PRN (09:53)
[2022-11-12] MEDS ORDERED: MAGNESIUM HYDROXIDE SUSP 30 ML UDC PO PRN (09:53)
[2022-11-12] MEDS ORDERED: bisacodyL 10 MG SUPP PR PRN (09:53)
[2022-11-12] MEDS ORDERED: PHARMACY GLYCEMIC MGMT CONSULT PRN (09:53)
[2022-11-12] MEDS ORDERED: ALUMINUM/MAGNESIUM SUSP 30 ML UDC PO PRN (09:53)
[2022-11-12] MEDS ORDERED: METOCLOPRAMIDE HCL INJ 5 MG/ML 2 ML VIAL IV PRN (09:53)
[2022-11-12] MEDS ORDERED: TAMSULOSIN HCL 0.4 MG CAP PO PRN (09:53)
[2022-11-12] MEDS ORDERED: NALOXONE HCL 0.4 MG/1 ML VIAL/CARP IV PRN (09:53)
--- NOTE | 2022-11-12 09:53 | Operative Report ---
Post Operative Report Pre & Post Diagnosis Operation Date: 11/12/22 07:30 Pre-Op Diagnosis: Closed left hip fracture Post-Op Diagnosis: Closed left hip fracture I identified the patient and participated in the time-out.: Yes Procedure Operation Date: 11/12/22 07:30 Actual Procedures p Left Total Hip Arthroplasty(Left) - Juvenal Fritz MD Surgeon Juvenla Fritz MD Medication Manager Jcarlos Crenshaw PAAshley Estimated Blood Loss 150 Findings Consistent with Post-Op Diagnosis Specimens femoral head Description of Procedure I was present during the entire case assisting with positioning, prepping, draping, wound retraction, wound closure and dressing application. No fellow present. Please see Dr. Fritz procedure note for specifics of the case. I attest to the content of the Intraoperative Record and any orders documented therein. Any exceptions are noted below.
[2022-11-12] MEDS ORDERED: NITROGLYCERIN SL 0.4 MG/TAB TAB SL PRN (09:58)
--- NOTE | 2022-11-12 09:59 | Operative Report ---
Post Operative Report Pre & Post Diagnosis Operation Date: 11/12/22 07:30 Pre-Op Diagnosis: Closed left displaced femoral neck fracture Post-Op Diagnosis: Closed left displaced femoral neck fracture I identified the patient and participated in the time-out.: Yes Procedure Operation Date: 11/12/22 07:30 Actual Procedures p Left Total Hip Arthroplasty(Left) - Juvenal Fritz MD Surgeon Juvenal Fritz MD Bulk System Operator SAVANAH Crenshaw PA-C. No resident or fellow was available to assist. Estimated Blood Loss 150 Findings Consistent with Post-Op Diagnosis Specimens Left femoral head Anesthesia Type General Complications none Disposition Disposition: Recovery Room Indications 57-year-old male With a past medical history significant for Uncontrolled hypertension,chronic kidney disease, currently homeless, and alcoholism, r ecently discharged from rehab less than a week ago. He resumed drinking after discharge from the rehab facility and fell yesterday early in the morning. Was not able to ambulate secondary to left hip pain. He was brought to the emergency room yesterday where x-rays demonstrated a displaced left femoral neck fracture. He had some subjective feelings of numbness and tingling in the left foot. Otherwise neurovascularly intact. I had a long discussion with him about the diagnosis and treatment options. Total hip replacement was indicated to allow him to regain the ability to ambulate. I discussed nonsurgical treatment options including bedrest and wheelchair use. I told him he is at high risk for complications after surgery secondary to his alcoholism and subsequent malnutrition, risk for falls, and social status. After reviewing all the risks and benefits of surgery elected to proceed. All questions were answered. Informed consent was signed. Description of Procedure patient was identified in the preoperative holding area where his surgical site was marked. He was brought back to the main operating room where general a nesthesia was administered on the hospital bed. He was then carefully moved onto the operating room table then carefully moved up in the lateral decubitus position. Axillary roll was placed. All bony promises were padded. Perioperative antibiotics and tranexamic acid 1 g were administered. He was then prepped and draped in the usual sterile fashion. Prior to incision multistrand timeout was called. All in the room were in agreement. I began by making a 16 cm long incision for a posterior approach to the hip. I dissected down through subcutaneous tissues to the level of fascia. Meticulous hemostasis was ensured throughout the case. Fascia was incised in line with the fibers of the gluteus wilfrid. Charnley retractor was placed. Trochanteric bursa was excised. Fatty contents along the posterior aspect of the hip were reflected posteriorly to expose the piriformis and short external rotators and quadratus femoris. Piriformis and short external rotators were dissected off th e posterior hip capsule. Quadratus femoris was taken subperiosteally off the posterior aspect of the femur. A box cut was placed in the capsule. We then internally rotated the hip to expose the femoral neck fracture. A saw was used to make a femoral neck cut distal to the fracture line. Portion of the anterior superior capsule was excised in order to facilitate visualization of the acetabulum. Double angle retractor was then placed to retract the femur anteriorly and expose the fractured femoral head. Corkscrew was used to remove the femoral head. Acetabular retractors were placed. Contents of the cotyloid fossa removed with electrocautery. The labrum was sharply excised. We then began to ream. Acetabular reamers were used all the way up to a size 54 to remove the underlying cartilage and get down to bleeding cancellous bone. We then irrigated out the acetabulum. Small fragments of bone were impacted into the cotyloid fossa for bone grafting. A [place] GRIPTION 54 mm outer diameter cup was then impacted into the acetabulum at 40 degrees of lateral opening and 15 degrees of anteversion. 2 cancellous bone screws were placed measuring 40 and 25 mm respectively. Excellent fixation was obtained. The apex hole eliminator was then placed and the metal liner for a dual mobility cup was then impacted into position. This was for a 47 mm polyethylene head.We checked to ensure that the Landon taper had engaged which it had. Next, we turned our attention to the femur. A box osteotome was used to remove the lateral neck. Lateralizing reamer was used followed by sequential reaming of the femoral canal all the way up to a size 6. We were able to broach him up to a size 5 which gave us good torsional stability and fit and fill of the proximal femur. We trialed with a high offset neck and a +15 head. Hip was reduced with mild difficulty. We then checked the stability exam. There was no impingement with extension and external rotation. Leg lengths were appropriate. He was stable in the sleeper position. At 90 degrees hip flexion he could be internally rotated 55 degrees before starting the lever out of the acetabulum. I was very happy with the stability exam. Therefore the femoral head was atraumatically dislocated from the cup. The femoral trial was removed. The femoral canal was irrigated out and dried. The real size 5 [place] high offset stem was opened up and gently impacted in the femur. It sat at the same level as the broach. The dual mobility head was assembled on the back table which had an inner head of +1.5 offset ceramic femoral head,28 mm diameter, and outer head of 28/47 polyethylene. The head was then impacted onto the trunnion which had been cleaned and dried. Hip was then atraumatically reduced. This point the wound was irrigated out with dilute Betadine solution which was allowed to sit for approximately 3 minutes. Periarticular injection cocktail was injected into the subcutaneous tissues for postoperative pain control. The wound was then irrigated out with copious amounts normal saline. Short external rotators and piriformis and posterior capsule were repaired with #2 Vicryl sutures through bone tunnels in the posterior aspect of the femur. Fascia was run with a looped #1 PDS suture. #1 PDS was used in running fashion for the subcutaneous tissues. 2-0 Vicryl was used in the deep dermal layer. Dermabond and Zipline were used for the skin. Silverlon dressing was placed followed by compressive dressing. Patient was then carefully rolled supine, extubated, and transferred onto the hospital bed. He was then transferred to recovery room in stable condition. Postoperative course: Patient be readmitted to the internal medicine service. He will be weightbearing as tolerated with a walker for the next 6 weeks. We will plan on baby aspirin for DVT prophylaxis. Posterior hip precautions. Physical therapy and Occupational Therapy. He is going to need to be discharged to a nursing facility as its not safe for him to go back to living in his car from the hospital immediately after surgery. Follow-up in the orthopedic clinic 2 weeks after surgery. I attest to the content of the Intraoperative Record and any orders documented therein. Any exceptions are noted below.
[2022-11-12] MEDS ORDERED: HYDROmorphone INJ 0.5 MG/0.5 ML SYR ONE (10:24)
--- NOTE | 2022-11-12 10:55 | Anesthesiology Progress Note ---
Date of Service November 12, 2022 Anesthesia Post Procedure Vital Signs Vital Signs: Temp Pulse Pulse Resp BP BP BP 11/12/22 10:45 36.3 C L 66 18 157/65 H 11/12/22 10:35 64 18 152/84 H 11/12/22 10:25 64 14 146/86 H 11/12/22 10:15 64 23 143/76 H 11/12/22 10:05 64 22 119/74 11/12/22 09:58 36.9 C 62 20 109/59 L 11/12/22 07:00 36.8 C 72 19 171/74 H 11/11/22 23:59 76 11/12/22 03:30 67 189/89 H 11/12/22 03:15 67 195/95 H 11/12/22 02:46 36.8 C 66 18 191/95 H 11/11/22 19:15 11/11/22 22:41 36.4 C L 73 20 170/89 H 11/11/22 19:15 37.0 C 87 18 192/89 H 11/11/22 19:35 37 C 82 19 188/94 H 11/11/22 19:35 80 188/94 H 11/11/22 18:54 36.5 C 98 H 18 209/103 H 202/120 H 11/11/22 19:21 98 H 209/103 H 11/11/22 16:25 92 H 16 204/111 H 11/11/22 15:24 104 H 214/114 H 11/11/22 15:00 104 H 16 11/11/22 13:00 99 H 20 201/108 H 11/11/22 12:18 112 H 11/11/22 11:51 112 H 20 211/117 H 11/11/22 10:59 100 H 20 213/111 H Pulse Ox O2 Del Method O2 Flow Rate 11/12/22 10:45 99 Nasal Cannula 2 11/12/22 10:35 100 Nasal Cannula 2 11/12/22 10:25 100 Oxymask 2 11/12/22 10:15 100 Oxymask 4 11/12/22 10:05 99 Oxymask 6 11/12/22 09:58 99 Oxymask 6 11/12/22 07:00 95 Nasal Cannula 2.0 11/11/22 23:59 11/12/22 03:30 11/12/22 03:15 11/12/22 02:46 97 Nasal Cannula 11/11/22 19:15 Nasal Cannula 2 11/11/22 22:41 94 Room Air 11/11/22 19:15 99 Nasal Cannula 2 11/11/22 19:35 98 Nasal Cannula 2 11/11/22 19:35 11/11/22 18:54 97 Room Air 11/11/22 19:21 11/11/22 16:25 96 Nasal Cannula 2 11/11/22 15:24 11/11/22 15:00 98 11/11/22 13:00 97 Nasal Cannula 2 11/11/22 12:18 11/11/22 11:51 99 Nasal Cannula 2 11/11/22 10:59 98 Nasal Cannula 2 Pain Intensity Left Hip: Pain Intensity: 9 Transfer of Care Handoff Completed per policy Notes Mental Status: alert / awake / arousable Patient Amnestic to Procedure: Yes Nausea / Vomiting: adequately controlled Pain: adequately controlled Airway Patency, RR, SpO2: stable & adequate BP & HR: stable & adequate Hydration State: stable & adequate Anesthetic Complications: no major complications apparent
[2022-11-12] MEDS ORDERED: LANTUS PER UNIT CHARGE SC ONE (11:00)
--- NOTE | 2022-11-12 11:51 | XRay Report ---
XR pelvis 1-2V routine CLINICAL HISTORY: Postoperative evaluation. COMPARISON: Pelvis and left hip radiograph November 11, 2022. FINDINGS: Alignment of the left hip arthroplasty is anatomic. There is no periprosthetic fracture. N o unexpected radiopaque foreign bodies are identified. IMPRESSION: Expected findings following left hip arthroplasty. ACT 112: Negative or not required by law. Electronically signed by: Won Amos M.D. 11/12/2022 11:50 AM
[2022-11-12] MEDS: KETOROLAC TROMETHAMINE 15 MG/ML VIAL IV SCH ×3 (12:06→23:52)
[2022-11-12] MEDS: SODIUM CHLORIDE 0.9% 1000ML 1,000 ML IV SCH ×2 (12:07→23:40)
[2022-11-12] MEDS: INSULIN ASPART PER UNIT CHARGE SC SCH ×3 (12:09→21:24)
[2022-11-12] MEDS: BUPRENORPHINE/NALOXONE 8/2 MG TAB SL SCH (12:11)
[2022-11-12] MEDS: carvediloL 12.5 MG TAB PO SCH ×2 (12:12→21:23)
[2022-11-12] MEDS: THIAMINE HCL 100 MG TAB PO SCH (12:12)
[2022-11-12] MEDS: CYANOCOBALAMIN (B-12) 500 MCG TABLET PO SCH (12:12)
[2022-11-12] MEDS: FOLIC ACID 1 MG TAB PO SCH (12:12)
[2022-11-12] MEDS: amLODIPine BESYLATE 5 MG TAB PO SCH ×2 (12:13→21:18)
[2022-11-12] MEDS: ACETAMINOPHEN 500 MG TAB PO SCH ×2 (13:00→21:22)
--- NOTE | 2022-11-12 13:55 | Pharmacy Report ---
Pharmacy Glycemic Short Note 2 - Date of Service November 12, 2022 - Glycemic Short BSG Results (Last 24 hours): 11/11/22 11/11/22 11/12/22 18:37 20:13 06:26 Glucose POC Glucose 190 H 231 H 135 H 11/12/22 11/12/22 11/12/22 06:44 10:29 11:34 Glucose 123 H POC Glucose 210 H 193 H OUTPATIENT ANTIDIABETIC REGIMEN: * Jardiance 10 mg PO daily * Glipizide XL 20 mg PO daily * HbA1C = 7.1% (09/24/22) ASSESSMENT: * Mr Dillard is a 57 y/o M with a PMH of T2DM who presents with a hip fracture. * Patient is currently POD0. He received dexamethasone 8 mg IV plus 4 mg in ortho prep. * Preop BSG was 135 mg/dL and postop BSG was 193 mg/dL. * For steroids + basal needs, will give Lantus 40 units SQ x 1 (slightly more than full weight-based stress of 2). * Novolog will be weight-based stress of 3 due to steroids. Overnight checks to ensure tight coverage. PLAN FOR INPATIENT GLYCEMIC CONTROL: * Hold outpatient oral diabetes medications * Basal insulin * Lantus 40 units SQ x 1 and re-evaluate tomorrow * Bolus insulin * NovoLog per scale ACHS or Q6hrs while NPO * Goal Range: Low 110 mg/dL - High 140 mg/dL * Correction Factor: 15 mg/dL/unit * Nutritional / Prandial insulin per carb ratio of 1 unit per 5 grams CHO consumed
[2022-11-12] MEDS ORDERED: LORazepam 1 MG TAB PO PRN ×3 (15:16)
[2022-11-12] MEDS ORDERED: Ativan PO Alcohol Withdrawal--Active Protocol PO PRN (15:16)
--- NOTE | 2022-11-12 15:53 | Hospitalist Progress Note ---
Date of Service November 12, 2022 Assessment & Plan (1) Closed left hip fracture: Plan Left Hip fracture Secondary to fall Lumbar spinal stenosis -Hip X ray:Acute, angulated and impacted transcervical fracture of the left femur. --Lumbar CT:No acute lumbar spine fracture or subluxation. Moderate to severe central canal stenosis at L3-L4 due to disc bulge, facet arthrosis and ligamentous hypertrophy, suboptimally assessed by CT. --S/p left total hip arthroplasty by Dr. Fritz on 10/23/2022 Pain control PT OT as able Appreciate orthopedics input Bowel regimen to prevent constipation Fall precautions Chronic pain syndrome On Suboxone Alcohol intoxication Alcohol abuse Alcohol level 105 on admission Continue gabapentin protocol Continue thiamine, folic acid Monitor for withdrawal Continue Ativan as needed Hypertensive Urgency Likely situational Continue amlodipine, lisinopril IV labetalol as needed Monitor BP Adjust meds as needed Acute kidney injury Likely prerenal Cr 2.6>1.8 Received IV fluids Avoid nephrotoxic agents as able Monitor renal function Hyperkalemia Likely due to ONDINA, lisinopril Potassium levels normalized Monitor CAD: S/p stent H/O Cardiomyopathy Echo in 2020 EF 55% Continue aspirin, metoprolol, statin DM II Most recent A1c: 7.1 on 10/09 Hold p.o. diabetes meds while hospitalized Continue insulin per protocol Monitor blood glucose levels CATALINO: H/O noncompliance with CPAP DVT Px: SCDs for now Re:Surgery Code Status Full Code Admission and Anticipated Discharge Date Admission Date: November 11, 2022 Subjective Patient is seen and examined at bedside States having left hip pain, controlled with pain medication Reports chronic cough Denies any chest pain, dyspnea, dizziness, nausea, vomiting, abdominal pain No other complaints Review of Systems Review of Systems: All systems reviewed & are unremarkable except as noted in Subjective Physical Exam Physical Exam: Physical Exam: Vitals signs as noted above General Appearance:Obese, no apparent distress, chronically ill appearing Head: normocephalic, Atraumatic Eyes: normal inspection, EOMI Neck: supple, Trachea midline Respiratory/Chest: Coarse breath sounds, No accessory muscle use Cardiovascular: S1, S2, No murmur Abdomen/GI:Soft, Non tender, Bowel sounds present Extremities/Musculoskeletal:normal inspection, left hip surgical site in dressing Neurologic/Psych:AAOX3, grossly no focal neurological deficits Skin: normal color, warm Results & Data Results & Data Vital Signs (Past 12 Hours) Vital Signs Temp Pulse Pulse Pulse Resp BP BP 11/12/22 15:03 11/12/22 14:18 36.3 C L 71 20 148/78 H 11/12/22 14:07 11/12/22 13:55 36.5 C 74 18 123/78 11/12/22 12:23 76 16 158/91 H 11/12/22 12:00 75 11/12/22 12:00 11/12/22 11:23 36.5 C 89 18 161/79 H 11/12/22 11:05 64 14 147/63 H 11/12/22 10:55 36.3 C L 64 15 136/73 11/12/22 10:45 36.3 C L 66 18 157/65 H 11/12/22 10:35 64 18 152/84 H 11/12/22 10:25 64 14 146/86 H 11/12/22 10:15 64 23 143/76 H 11/12/22 10:05 64 22 119/74 11/12/22 09:58 36.9 C 62 20 109/59 L 11/12/22 07:00 36.8 C 72 19 171/74 H Pulse Ox O2 Del Method O2 Flow Rate 11/12/22 15:03 94 Room Air 11/12/22 14:18 100 Nasal Cannula 3 11/12/22 14:07 Nasal Cannula 2 11/12/22 13:55 93 Nasal Cannula 2 11/12/22 12:23 98 Nasal Cannula 2 11/12/22 12:00 11/12/22 12:00 Nasal Cannula 2 11/12/22 11:23 95 Room Air 11/12/22 11:05 97 Nasal Cannula 2 11/12/22 10:55 95 Nasal Cannula 2 11/12/22 10:45 99 Nasal Cannula 2 11/12/22 10:35 100 Nasal Cannula 2 11/12/22 10:25 100 Oxymask 2 11/12/22 10:15 100 Oxymask 4 11/12/22 10:05 99 Oxymask 6 11/12/22 09:58 99 Oxymask 6 11/12/22 07:00 95 Nasal Cannula 2.0 Laboratory Results Short CBC 11/12/22 Range/Units 06:44 WBC 6.93 (4.8-10.8) K/ul Hgb 10.1 L (14.0-18.0) g/dl Hct 29.6 L (42.0-52.0) % Plt Count 161 (130-400) K/uL [facility] 11/12/22 06:44 Sodium 136 Potassium 4.5 Chloride 110 H Carbon Dioxide 21 BUN 47 H Creatinine 1.84 H D Glucose 123 H Calcium 8.5 L
[2022-11-12] MEDS ORDERED: TRANEXAMIC ACID / 0.7% NACL 1,000 MG/100 ML BAG IV SCH (16:00)
[2022-11-12] MEDS: ceFAZolin 2000MG 2,000 MG/15 ML SYR IV SCH ×2 (16:11→23:52)
[2022-11-12] MEDS ORDERED: LANTUS PER UNIT CHARGE SQ SCH (21:00)
[2022-11-12] MEDS ORDERED: Nursing to Pharmacy Communication SCH (21:00)
[2022-11-12] MEDS: MIRTAZAPINE TAB 15 MG TAB PO SCH (21:19)
[2022-11-12] MEDS: ATORVASTATIN 40 MG TAB PO SCH (21:22)
[2022-11-12] MEDS: DOCUSATE SODIUM 100 MG CAP PO SCH (21:22)
[2022-11-12] MEDS: SENNA 8.6 MG TAB PO SCH (21:22)
[2022-11-12] MEDS: TAMSULOSIN HCL 0.4 MG CAP PO SCH (21:23)
[2022-11-13] MEDS ORDERED: INSULIN ASPART PER UNIT CHARGE SC SCH
[2022-11-13] MEDS: GABAPENTIN 400 MG CAP PO SCH ×2 (03:43→14:53)
[2022-11-13] MEDS: KETOROLAC TROMETHAMINE 15 MG/ML VIAL IV SCH (03:54)
[2022-11-13] MEDS: ACETAMINOPHEN 500 MG TAB PO SCH ×3 (05:55→21:19)
[2022-11-13 08:05] LABS: Basophils # (auto) 0.01 K/uL (0.00-0.20); Basophils % (auto) 0.1 %; Hematocrit (blood only) 29.1 % (42.0-52.0); Hemoglobin 9.9 g/dl (14.0-18.0); Immature Granulocytes # (auto) 0.08 K/uL (0.01-0.20); Immature Granulocytes % (auto) 0.7 %; Lymphocytes # (auto) 1.17 K/uL (1.20-3.40); Lymphocytes % (auto) 10.3 %; Mean Corpuscular Hemoglobin 30.3 pg (25.0-34.0); Mean Platelet Volume 10.3 fL (9.4-12.4); Monocytes # (auto) 0.73 K/uL (0.11-0.59); Monocytes % (auto) 6.4 %; Neutrophils # (auto) 9.34 K/uL (1.40-6.50); Neutrophils % (auto) 82.5 %; Platelet Count 160 K/uL (130-400); RDW Coefficient of Variation 11.3 % (11.5-14.5); RDW Standard Deviation 36.9 fL (36.4-46.3); Red Blood Count 3.27 M/uL (4.70-6.10); White Blood Count 11.33 K/ul (4.8-10.8)
[2022-11-13 08:26] LABS: BUN Creatinine Ratio 30.3 (10-20); Calcium 8.1 mg/dl (8.6-10.3); Creatinine Clr Calc Pharmacy 48.5 ml/min; Est GFR (African American) 42.7 ml/min; Est GFR (Non-African American) 36.8 ml/min; Potassium 5.1 mmol/L (3.5-5.1)
--- NOTE | 2022-11-13 08:49 | Orthopedic Progress Note ---
Date of Service November 13, 2022 Assessment & Plan (1) S/P total left hip arthroplasty: Plan: WBAT with walker PT/OT Keep silverlon dressing in place Ice with EZ wrap DVT prophy with Teds and Aspirin Pain control with PO meds Abduction pillow use Case management for placement Medicine is primary service Will need f/u at [facility] in 2 weeks Admission and Anticipated Discharge Date Admission Date: November 11, 2022 Subjective This 57 yo M is day 1 s/p left total hip arthroplasty. Doing very well. Pain well controlled w/ PO meds. Has yet to do PT/OT. Denies CP, SOB, N/V/D/C, fever, chills, sweats or N/T in left LE Review of Systems Review of Systems: All systems reviewed & are unremarkable except as noted in Subjective Physical Exam Physical Exam: Left Hip: outer dressing removed. Silverlon clean, dry and intact. Able to perform active SLRT. Able to actively dorsi/plantar flex foot. No pain with log roll. No pain with light passive hip flexion, internal or external rotation. Quad strength 4/5. NV intact in left LE. Results & Data Vital Signs (Past 12 Hours) Vital Signs Temp Pulse Pulse Resp BP Pulse Ox O2 Del Method 11/13/22 07:45 36.7 C 68 20 164/82 H 97 Room Air 11/13/22 07:33 68 11/12/22 21:59 68 11/13/22 02:38 37 C 60 18 146/85 H 94 Room Air 11/12/22 21:00 Room Air 11/12/22 23:25 36.7 C 67 18 131/72 92 Room Air Diagnostic Findings Laboratory Results WBC 11.33 K/ul (4.8-10.8) H 11/13/22 07:05 RBC 3.27 M/uL (4.70-6.10) L 11/13/22 07:05 Hgb 9.9 g/dl (14.0-18.0) L 11/13/22 07:05 Hct 29.1 % (42.0-52.0) L 11/13/22 07:05 MCV 89.0 fL (80.0-100.0) 11/13/22 07:05 MCH 30.3 pg (25.0-34.0) 11/13/22 07:05 MCHC 34.0 g/dL (32.0-36.0) 11/13/22 07:05 RDW Std Deviation 36.9 fL (36.4-46.3) 11/13/22 07:05 RDW Coeff of Alberto 11.3 % (11.5-14.5) L 11/13/22 07:05 Plt Count 160 K/uL (130-400) 11/13/22 07:05 MPV 10.3 fL (9.4-12.4) 11/13/22 07:05 Immature Gran % (Auto) 0.7 % 11/13/22 07:05 Neut % (Auto) 82.5 % 11/13/22 07:05 Lymph % (Auto) 10.3 % 11/13/22 07:05 Candler % (Auto) 6.4 % 11/13/22 07:05 Eos % (Auto) 0.0 % 11/13/22 07:05 Baso % (Auto) 0.1 % 11/13/22 07:05 Neut # (Auto) 9.34 K/uL (1.40-6.50) H 11/13/22 07:05 Lymph # (Auto) 1.17 K/uL (1.20-3.40) L 11/13/22 07:05 Candler # (Auto) 0.73 K/uL (0.11-0.59) H 11/13/22 07:05 Eos # (Auto) 0.00 K/uL (0.00-0.50) 11/13/22 07:05 Baso # (Auto) 0.01 K/uL (0.00-0.20) 11/13/22 07:05 Immature Gran # (Auto) 0.08 K/uL (0.01-0.20) 11/13/22 07:05 PT 10.7 Seconds (9.0-12.0) 11/11/22 08:55 INR 1.0 (0.9-1.1) 11/11/22 08:55 APTT 27.6 Seconds (21.0-31.0) 11/11/22 08:55 PTT Ratio 1.0 11/11/22 08:55 Sodium 133 mmol/L (136-145) L 11/13/22 07:05 Potassium 5.1 mmol/L (3.5-5.1) 11/13/22 07:05 Chloride 108 mmol/L (98-107) H 11/13/22 07:05 Carbon Dioxide 19 mmol/L (21-32) L 11/13/22 07:05 Anion Gap 6 (3-11) 11/13/22 07:05 BUN 59 mg/dl (6-23) H 11/13/22 07:05 Creatinine 1.95 mg/dl (0.6-1.4) H 11/13/22 07:05 Est Cr Clr Drug Dosing 48.5 ml/min 11/13/22 07:05 Est GFR ( Amer) 42.7 ml/min 11/13/22 07:05 Est GFR (Non-Af Amer) 36.8 ml/min 11/13/22 07:05 BUN/Creatinine Ratio 30.3 (10-20) H 11/13/22 07:05 Glucose 126 mg/dl (70-99(Fasting)) H 11/13/22 07:05 POC Glucose 135 mg/dl (70-99) H 11/13/22 08:20 Calcium 8.1 mg/dl (8.6-10.3) L 11/13/22 07:05 Total Bilirubin 0.5 mg/dl (0.2-1.0) 11/11/22 08:55 AST 21 U/L (13-39) 11/11/22 08:55 ALT 17 U/L (7-52) 11/11/22 08:55 Alkaline Phosphatase 86 U/L (34-104) 11/11/22 08:55 Troponin I High Sens 7.9 pg/ml (0-20) 11/11/22 08:55 Total Protein 7.2 gm/dl (6.0-8.3) 11/11/22 08:55 Albumin 3.6 gm/dl (3.4-5.0) 11/11/22 08:55 Globulin 3.6 gm/dl (2.5-4.0) 11/11/22 08:55 Albumin/Globulin Ratio 1.0 (0.9-2) 11/11/22 08:55 Lipase 50 U/L (11-82) 11/11/22 08:55 Urine Color Yellow 11/11/22 10:49 Urine Appearance Clear (Clear) 08/25/23 10:49 Urine pH 5.5 (4.5-7.5) 11/11/22 10:49 Ur Specific Cody 1.016 (1.000-1.030) 11/11/22 10:49 Urine Protein 4+ (Negative) H 11/11/22 10:49 Urine Glucose (UA) 1+ (Negative) H 11/11/22 10:49 Urine Ketones Negative (Negative) 11/11/22 10:49 Urine Blood 1+ (Negative) H 11/11/22 10:49 Urine Nitrite Negative (Negative) 11/11/22 10:49 Urine Bilirubin Negative (Negative) 11/11/22 10:49 Urine Urobilinogen Negative (Negative) 11/11/22 10:49 Ur Leukocyte Esterase Negative (Negative) 11/11/22 10:49 Urine WBC (Auto) 1-5 /hpf (0-5) 11/11/22 10:49 Urine RBC (Auto) 0-4 /hpf (0-4) 11/11/22 10:49 U Hyaline Cast (Auto) 1-5 /lpf (0-5) 11/11/22 10:49 U Epithel Cells (Auto) 10-20 /lpf (0-5) H 11/11/22 10:49 Urine Bacteria (Auto) Negative (Negative) 11/11/22 10:49 Urine Opiates Screen Pos (Neg) H 11/11/22 10:49 Ur Methadone, Qual Neg (Neg) 11/11/22 10:49 Urine Barbiturates Neg (Neg) 11/11/22 10:49 Ur Phencyclidine (PCP) Neg (Neg) 11/11/22 10:49 U Amphetamin/Meth Scrn Neg (Neg) 11/11/22 10:49 MDMA (Ecstasy) Screen Neg (Neg) 11/11/22 10:49 U Benzodiazepines Scrn Neg (Neg) 11/11/22 10:49 Ur Cocaine Metabolite Neg (Neg) 11/11/22 10:49 U Marijuana (THC) Screen Neg (Neg) 11/11/22 10:49 Ethyl Alcohol mg/dL 105.0 mg/dl (<10.0) H 11/11/22 08:55 Blood Type O Positive 11/11/22 15:35 Antibody Screen NEGATIVE 11/11/22 15:[address] 11/11/22 08:27 CT OF THE CERVICAL SPINE WITHOUT CONTRAST CLINICAL HISTORY: fall COMPARISON STUDY: Cervical spine CT September 23, 2022. TECHNIQUE: Helical axial images of the cervical spine were obtained without IV contrast. Sagittal and coronal reconstructions were viewed. Automated exposure control was utilized for the study. A dose lowering technique was utilized adhering to the principles of ALARA. FINDINGS: Alignment of the cervical spine is anatomic. Vertebral body heights are maintained. No acute cervical spine fracture or subluxation is present. There is no prevertebral edema. Facet joints are intact. Mild multilevel disc space narrowing and osteophytosis within the cervical spine is present. Slight concavity of the superior endplate of T1 is unchanged. IMPRESSION: No acute cervical spine fracture or subluxation. ACT 112: Negative or not required by law. Electronically signed by: Won Amos M.D. 11/11/2022 10:11 AM Chest X-Ray 11/11/22 08:27 XR chest 1V not portable CLINICAL HISTORY: fall TECHNIQUE: Single frontal radiograph of the chest was obtained. Comparison: Comparison is made to chest radiograph 09/23/2022 FINDINGS: No lines and tubes are seen. Cardiomegaly is noted. The aortic arch is calcified. The lungs are clear. No evidence of pleural effusion or pneumothorax. IMPRESSION: No acute chest disease. ACT 112: Negative or not required by law. Electronically signed by: Hermilo Mooney M.D. 11/11/2022 10:49 AM Elbow X-Ray 11/11/22 08:27 XR elbow LT min 3V routine CLINICAL HISTORY: Left elbow pain following fall. COMPARISON: None FINDINGS: Alignment of the left elbow is anatomic. Soft tissue swelling overlying the olecranon is noted. There is no acute fracture. There is no evidence for a left elbow joint effusion. IMPRESSION: 1. No acute fracture. No evidence for a left elbow joint effusion. 2. Soft tissue swelling overlying the olecranon. ACT 112: Negative or not required by law. Electronically signed by: Won Amos M.D. 11/11/2022 10:57 AM Hand X-Ray 11/11/22 08:27 XR hand LT min 3V routine HISTORY: 57 years-old Male fall acute left hand pain status post fall COMPARISON: None TECHNIQUE: 3 views of the left hand FINDINGS: Mild osteoarthritis. Arterial calcifications. No acute fracture, dislocation or opaque foreign body. Mild dorsal hand soft tissue swelling. IMPRESSION: No acute osseous abnormality. ACT 112: Negative or not required by law. The above report was generated using voice recognition software. It may contain grammatical, syntax or spelling errors. Electronically signed by: Suhas Ramos M.D. 11/11/2022 11:[address] 11/11/22 08:27 CT OF THE HEAD WITHOUT CONTRAST CLINICAL HISTORY: fall COMPARISON STUDY: Head CT September 23, 2022. TECHNIQUE: Helical axial images of the head were obtained without IV contrast. Automated exposure control was utilized for the study. A dose lowering technique was utilized adhering to the principles of ALARA. FINDINGS: No acute intracranial hemorrhage, midline shift or mass effect is present. 3 mm colloid cyst at the foramen of Monro is again noted. The ventricular system is unremarkable. No evidence for hydrocephalus. The basal cisterns are patent. No extra-axial collections are present. There are no findings to suggest acute dural sinus thrombosis or acute territorial infarct. No significant calvarial abnormalities are present. IMPRESSION: 1. No acute intracranial findings. 2. Stable 3 mm colloid cyst. No hydrocephalus. 3. No calvarial fracture. ACT 112: Negative or not required by law. Electronically signed by: Won Amos M.D. 11/11/2022 10:08 AM Hip/Pelvis X-Ray 11/11/22 08:27 XR hip LT 2V w pelvis HISTORY: 57 years-old Male fall acute severe left-sided hip pain status post fall COMPARISON: CT 11/13/2021 TECHNIQUE: AP view of the pelvis with 2 views of the left hip FINDINGS: Arterial calcifications. Mild osteoarthritis of the hips. There is an acute fracture within the left femoral neck which appears to be transcervical with probable mild comminution. Additionally, there is impaction with apex superolateral angulation. No dislocation. IMPRESSION: Acute, angulated and impacted transcervical fracture of the left femur. ACT 112: Negative or not required by law. The above report was generated using voice recognition software. It may contain grammatical, syntax or spelling errors. Electronically signed by: Suhas Ramos M.D. 11/11/2022 11:[address] 11/11/22 08:27 CT lumbar spine wo con CLINICAL HISTORY: fall COMPARISON STUDY: Lumbar spine CT December 10, 2017. Lumbar spine MRI December 12, 2017. TECHNIQUE: Axial images of the lumbar spine were obtained without IV contrast. Sagittal and coronal reconstructions were viewed. Automated exposure control was utilized for the study. A dose lowering technique was utilized adhering to the principles of ALARA. FINDINGS: For purposes of numbering on this exam, the L5-S1 disc space is assigned to axial image 369 of 471. No acute lumbar spine fracture is present. Concavity of the anterior aspect of the superior plate of L5 is unchanged since prior CT and MRI. No osseous lesions are noted. There is moderate multilevel facet arthrosis. There is mild multilevel disc space narrowing. The central canal and neural foramen are suboptimally assessed given CT technique. Disc bulge, facet arthrosis and ligamentous hypertrophy results in moderate to severe central canal stenosis at L3-L4. Paravertebral soft tissues are unremarkable. IMPRESSION: 1. No acute lumbar spine fracture or subluxation. 2. Moderate to severe central canal stenosis at L3-L4 due to disc bulge, facet arthrosis and ligamentous hypertrophy, suboptimally assessed by CT. ACT 112: Negative or not required by law. Electronically signed by: Won Amos M.D. 11/11/2022 10:20 AM Pelvis X-Ray 11/12/22 09:53 XR pelvis 1-2V routine CLINICAL HISTORY: Postoperative evaluation. COMPARISON: Pelvis and left hip radiograph November 11, 2022. FINDINGS: Alignment of the left hip arthroplasty is anatomic. There is no periprosthetic fracture. No unexpected radiopaque foreign bodies are identified. IMPRESSION: Expected findings following left hip arthroplasty. ACT 112: Negative or not required by law. Electronically signed by: Won Amos M.D. 11/12/2022 11:50 AM
[2022-11-13] MEDS ORDERED: EMPAGLIFLOZIN 10 MG TAB PO SCH (09:00)
[2022-11-13] MEDS ORDERED: LANTUS PER UNIT CHARGE SQ ONE (09:00)
[2022-11-13] MEDS ORDERED: NON-FORMULARY MEDICATION (Glipizide 10 mg tablet extended release 24hr) PO SCH (09:00)
[2022-11-13] MEDS ORDERED: ASPIRIN 81 MG ECTAB PO SCH (09:00)
[2022-11-13] MEDS: INSULIN ASPART PER UNIT CHARGE SC SCH ×4 (09:25→21:20)
[2022-11-13] MEDS: lisinopril 10 MG TAB PO SCH (09:26)
[2022-11-13] MEDS: FUROSEMIDE 40 MG TAB PO SCH (09:26)
[2022-11-13] MEDS: MULTIVITAMIN TAB PO SCH (09:27)
[2022-11-13] MEDS: THIAMINE HCL 100 MG TAB PO SCH (09:27)
[2022-11-13] MEDS: carvediloL 12.5 MG TAB PO SCH ×2 (09:27→21:11)
[2022-11-13] MEDS: CYANOCOBALAMIN (B-12) 500 MCG TABLET PO SCH (09:27)
[2022-11-13] MEDS: DOCUSATE SODIUM 100 MG CAP PO SCH ×2 (09:27→21:23)
[2022-11-13] MEDS: FOLIC ACID 1 MG TAB PO SCH (09:27)
[2022-11-13] MEDS: amLODIPine BESYLATE 5 MG TAB PO SCH ×2 (09:27→21:13)
[2022-11-13] MEDS: BUPRENORPHINE/NALOXONE 8/2 MG TAB SL SCH (09:31)
[2022-11-13] MEDS: oxyCODONE HCL IR 5 MG TAB (IMMEDIATE RELEASE) PO PRN ×2 (09:31→21:20)
[2022-11-13] MEDS ORDERED: CeleBREX 200 MG CAP PO SCH (11:00)
[2022-11-13] MEDS: NICOTINE 21 MG/24 HR TDSY TD SCH (11:29)
[2022-11-13 11:58] LABS: Codeine Urine NEGATIVE ng/mL (<50); Hydrocodone Urine NEGATIVE ng/mL (<50); Hydromor Urine NEGATIVE ng/mL (<50); Morphine Urine 403 ng/mL (<50); Norhydrocodone Conf Ur NEGATIVE ng/mL (<50); Noroxycodone Urine NEGATIVE ng/mL (<50); Oxycodone Urine NEGATIVE ng/mL (<50); Oxymorph Urine NEGATIVE ng/mL (<50)
[2022-11-13] MEDS: HEPARIN SOD 5,000 UNIT/0.5 ML VIAL SQ SCH ×2 (13:59→21:12)
--- NOTE | 2022-11-13 16:42 | Hospitalist Progress Note ---
Date of Service November 13, 2022 Assessment & Plan (1) Closed left hip fracture: Plan Left Hip fracture Secondary to fall Lumbar spinal stenosis -Hip X ray:Acute, angulated and impacted transcervical fracture of the left femur. --Lumbar CT:No acute lumbar spine fracture or subluxation. Moderate to severe central canal stenosis at L3-L4 due to disc bulge, facet arthrosis and ligamentous hypertrophy, suboptimally assessed by CT. --S/p left total hip arthroplasty by Dr. Fritz on 10/23/2022 Pain control PT OT: LLE Weightbearing as tolerated with walker Appreciate orthopedics input Bowel regimen to prevent constipation Fall precautions Needs follow-up with orthopedics in 2 weeks Chronic pain syndrome On Suboxone Alcohol intoxication Alcohol abuse Alcohol level 105 on admission Continue gabapentin protocol Continue thiamine, folic acid Monitor for withdrawal Continue Ativan as needed Continue current management Hypertensive Urgency Likely situational Continue amlodipine, lisinopril IV labetalol as needed Monitor BP Adjust meds as needed Acute kidney injury Likely prerenal Cr 2.6>1.8 Received IV fluids Avoid nephrotoxic agents as able Monitor renal function Cr 1.9 today Hyperkalemia Likely due to ONDINA, lisinopril Potassium levels normalized Consider to hold lisinopril if recurrence of hyperkalemia CAD: S/p stent H/O Cardiomyopathy Echo in 2020 EF 55% Continue aspirin, metoprolol, statin DM II Most recent A1c: 7.1 on 10/09 Hold p.o. diabetes meds while hospitalized Continue insulin per protocol Monitor blood glucose levels CATALINO: H/O noncompliance with CPAP DVT Px: Heparin SQ Code Status Full Code Admission and Anticipated Discharge Date Admission Date: November 11, 2022 Subjective Patient is seen and examined at bedside Hip pain at surgical site is controlled States having minimal tremor which she attributes to alcohol withdrawal Reports chronic cough unchanged. No other complaints Sitting in chair comfortably Denies any chest pain, dyspnea, dizziness, nausea, vomiting, abdominal pain Review of Systems Review of Systems: All systems reviewed & are unremarkable except as noted in Subjective Physical Exam Physical Exam: Physical Exam: Vitals signs as noted above General Appearance:Obese, no apparent distress, chronically ill appearing Head: normocephalic, Atraumatic Eyes: normal inspection, EOMI Neck: supple, Trachea midline Respiratory/Chest: Coarse breath sounds, No accessory muscle use Cardiovascular: S1, S2, No murmur Abdomen/GI:Soft, Non tender, Bowel sounds present Extremities/Musculoskeletal:normal inspection, left hip surgical site in dressing Neurologic/Psych:AAOX3, grossly no focal neurological deficits Skin: normal color, warm Results & Data Results & Data Vital Signs (Past 12 Hours) Vital Signs Temp Pulse Pulse Resp BP Pulse Ox O2 Del Method 11/13/22 16:08 37.1 C 74 18 164/82 H 99 Room Air 11/13/22 12:08 37.0 C 73 18 137/69 96 Room Air 11/13/22 07:45 36.7 C 68 20 164/82 H 97 Room Air 11/13/22 07:33 68 Laboratory Results Short CBC 11/13/22 Range/Units 07:05 WBC 11.33 H (4.8-10.8) K/ul Hgb 9.9 L (14.0-18.0) g/dl Hct 29.1 L (42.0-52.0) % Plt Count 160 (130-400) K/uL BMP 11/13/22 07:05 Sodium 133 L Potassium 5.1 Chloride 108 H Carbon Dioxide 19 L BUN 59 H Creatinine 1.95 H Glucose 126 H Calcium 8.1 L
[2022-11-13] MEDS: ATORVASTATIN 40 MG TAB PO SCH (21:13)
[2022-11-13] MEDS: SENNA 8.6 MG TAB PO SCH (21:13)
[2022-11-13] MEDS: MIRTAZAPINE TAB 15 MG TAB PO SCH (21:14)
[2022-11-13] MEDS: TAMSULOSIN HCL 0.4 MG CAP PO SCH (21:14)
[2022-11-14] MEDS: GABAPENTIN 400 MG CAP PO SCH (02:13)
[2022-11-14] MEDS: ACETAMINOPHEN 500 MG TAB PO SCH ×3 (05:23→23:10)
[2022-11-14] MEDS: HEPARIN SOD 5,000 UNIT/0.5 ML VIAL SQ SCH ×3 (05:24→20:46)
[2022-11-14 07:07] LABS: Hematocrit (blood only) 24.3 % (42.0-52.0); Hemoglobin 8.3 g/dl (14.0-18.0); Mean Corpuscular Hemoglobin 30.5 pg (25.0-34.0); Mean Corpuscular Hgb Conc 34.2 g/dL (32.0-36.0); Mean Corpuscular Volume 89.3 fL (80.0-100.0); Mean Platelet Volume 10.6 fL (9.4-12.4); Platelet Count 117 K/uL (130-400); RDW Coefficient of Variation 11.8 % (11.5-14.5); RDW Standard Deviation 37.4 fL (36.4-46.3); Red Blood Count 2.72 M/uL (4.70-6.10); White Blood Count 6.58 K/ul (4.8-10.8)
[2022-11-14 07:30] LABS: Potassium 4.3 mmol/L (3.5-5.1)
[2022-11-14 07:31] LABS: BUN Creatinine Ratio 30.2 (10-20); Calcium 7.8 mg/dl (8.6-10.3); Creatinine Clr Calc Pharmacy 47.3 ml/min; Est GFR (African American) 40.9 ml/min; Est GFR (Non-African American) 35.3 ml/min
[2022-11-14] MEDS: carvediloL 12.5 MG TAB PO SCH ×2 (09:14→20:45)
[2022-11-14] MEDS: FOLIC ACID 1 MG TAB PO SCH (09:14)
[2022-11-14] MEDS: amLODIPine BESYLATE 5 MG TAB PO SCH ×2 (09:15→20:46)
[2022-11-14] MEDS: NICOTINE 21 MG/24 HR TDSY TD SCH (09:15)
[2022-11-14] MEDS: CYANOCOBALAMIN (B-12) 500 MCG TABLET PO SCH (09:15)
[2022-11-14] MEDS: THIAMINE HCL 100 MG TAB PO SCH (09:16)
[2022-11-14] MEDS: FUROSEMIDE 40 MG TAB PO SCH (09:16)
[2022-11-14] MEDS: lisinopril 10 MG TAB PO SCH (09:16)
[2022-11-14] MEDS: INSULIN ASPART PER UNIT CHARGE SC SCH ×4 (09:17→20:51)
[2022-11-14] MEDS: MULTIVITAMIN TAB PO SCH (09:17)
[2022-11-14] MEDS: DOCUSATE SODIUM 100 MG CAP PO SCH ×2 (09:18→20:44)
[2022-11-14] MEDS: LANTUS PER UNIT CHARGE SC SCH (09:30)
[2022-11-14] MEDS: BUPRENORPHINE/NALOXONE 8/2 MG TAB SL SCH (09:30)
--- NOTE | 2022-11-14 09:41 | Orthopedic Progress Note ---
Date of Service November 14, 2022 Assessment & Plan (1) S/P total left hip arthroplasty: Plan: POD1 s/p LTHA with Dr Fritz WBAT with walker PT/OT Keep silverlon dressing in place Ice with EZ wrap DVT prophy with Teds and Aspirin Pain control with PO meds Abduction pillow use Case management for placement Medicine is primary service Will need f/u at [facility] in 2 weeks Admission and Anticipated Discharge Date Admission Date: November 11, 2022 Subjective Pt seen and examined bedside. Reports he is doing well. He got up and walked a little yesterday with PT and he is hoping he can do more today. Denies F/C, CP, SOB, N/T, calf pain. Physical Exam Physical Exam: General: Pt laying in hospital bed AA&O, in NAD, calm and cooperative during exam Lower Extremity: Dressing in tact and not saturated. Pt has full ROM of ankle a nd all 5 digits. Pt has 5/5 strength with resisted DF/PF. Able to slighty bend knee. Calf supple and non tender. NVI with sensation to light touch distally and good distal pulses present. Able to tolerate slight abduction of hip. Lower extremity noted to have good color and temperature with no signs of vascular or lymphatic insufficiency. Results & Data Vital Signs (Past 12 Hours) Vital Signs Temp Pulse Pulse Resp BP BP Pulse Ox 11/14/22 07:30 36.6 C 65 16 129/66 92 11/14/22 04:05 36.6 C 64 20 157/78 H 96 11/13/22 23:01 82 11/13/22 23:19 36.7 C 85 20 175/87 H 95 11/13/22 22:04 O2 Del Method 11/14/22 07:30 Room Air 11/14/22 04:05 Room Air 11/13/22 23:01 11/13/22 23:19 Room Air 11/13/22 22:04 Room Air
[2022-11-14 15:56] LABS: Hematocrit (blood only) 23.3 % (42.0-52.0); Hemoglobin 7.9 g/dl (14.0-18.0)
--- NOTE | 2022-11-14 18:40 | Hospitalist Progress Note ---
Date of Service November 14, 2022 Assessment & Plan (1) Closed left hip fracture: Plan Left Hip fracture Secondary to fall Lumbar spinal stenosis Postoperative acute blood loss anemia -Hip X ray:Acute, angulated and impacted transcervical fracture of the left femur. --Lumbar CT:No acute lumbar spine fracture or subluxation. Moderate to severe central canal stenosis at L3-L4 due to disc bulge, facet arthrosis and ligamentous hypertrophy, suboptimally assessed by CT. --S/p left total hip arthroplasty by Dr. Fritz on 10/23/2022 Pain control PT OT: LLE Weightbearing as tolerated with walker Appreciate orthopedics input Bowel regimen to prevent constipation Fall precautions Needs follow-up with orthopedics in 2 weeks Monitor CBC Waiting for rehab place Chronic pain syndrome Continue Suboxone Alcohol intoxication Alcohol abuse Alcohol level 105 on admission Continue gabapentin protocol Continue thiamine, folic acid Monitor for withdrawal Continue Ativan as needed No signs of withdrawal currently Hypertensive Urgency Likely situational Continue amlodipine, lisinopril, Coreg IV labetalol as needed Monitor BP BP better Acute kidney injury Likely prerenal Cr 2.6>1.8 Received IV fluids Avoid nephrotoxic agents as able Monitor renal function Cr 2.0 today Hyperkalemia Likely due to ONDINA, lisinopril Potassium levels normalized Consider to hold lisinopril if recurrence of hyperkalemia CAD: S/p stent H/O Cardiomyopathy Echo in 2020 EF 55% Continue aspirin, metoprolol, statin DM II Most recent A1c: 7.1 on 10/09 Hold p.o. diabetes meds while hospitalized Continue insulin per protocol Monitor blood glucose levels CATALINO: H/O noncompliance with CPAP DVT Px: Heparin SQ Code Status Full Code Disposition Rehab as able Admission and Anticipated Discharge Date Admission Date: November 11, 2022 Subjective Patient is seen and examined at bedside Sitting in chair comfortably during my encounter No new complaints No significant alcohol withdrawal symptoms Denies any chest pain, dyspnea, dizziness, nausea, vomiting, abdominal pain Waiting for rehab placement Review of Systems Review of Systems: All systems reviewed & are unremarkable except as noted in Subjective Physical Exam Physical Exam: Physical Exam: Vitals signs as noted above General Appearance:Obese, no apparent distress, chronically ill appearing Head: normocephalic, Atraumatic Eyes: normal inspection, EOMI Neck: supple, Trachea midline Respiratory/Chest: Coarse breath sounds, No accessory muscle use Cardiovascular: S1, S2, No murmur Abdomen/GI:Soft, Non tender, Bowel sounds present Extremities/Musculoskeletal:normal inspection, left hip surgical site in dressing Neurologic/Psych:AAOX3, grossly no focal neurological deficits Skin: normal color, warm Results & Data Results & Data Vital Signs (Past 12 Hours) Vital Signs Temp Pulse Pulse Resp BP Pulse Ox Pulse Ox 11/14/22 15:37 73 11/14/22 15:15 36.8 C 75 16 137/66 95 11/14/22 11:15 36.9 C 71 16 138/69 97 11/14/22 08:00 92 11/14/22 10:03 70 11/14/22 07:30 36.6 C 65 16 129/66 92 O2 Del Method O2 Del Method 11/14/22 15:37 11/14/22 15:15 Room Air 11/14/22 11:15 Room Air 11/14/22 08:00 Room Air 11/14/22 10:03 11/14/22 07:30 Room Air Laboratory Results Short CBC 11/14/22 11/14/22 Range/Units 06:29 15:32 WBC 6.58 (4.8-10.8) K/ul Hgb 8.3 L 7.9 L (14.0-18.0) g/dl Hct 24.3 L 23.3 L (42.0-52.0) % Plt Count 117 L (130-400) K/uL BMP 11/14/22 06:29 Sodium 136 Potassium 4.3 Chloride 111 H Carbon Dioxide 19 L BUN 61 H Creatinine 2.02 H Glucose 147 H Calcium 7.8 L
[2022-11-14] MEDS: ATORVASTATIN 40 MG TAB PO SCH (20:44)
[2022-11-14] MEDS: TAMSULOSIN HCL 0.4 MG CAP PO SCH (20:45)
[2022-11-14] MEDS: SENNA 8.6 MG TAB PO SCH (20:45)
[2022-11-14] MEDS: MIRTAZAPINE TAB 15 MG TAB PO SCH (20:45)
[2022-11-14] MEDS: oxyCODONE HCL IR 5 MG TAB (IMMEDIATE RELEASE) PO PRN (23:15)
[2022-11-15] MEDS ORDERED: GABAPENTIN 400 MG CAP PO SCH (03:00)
[2022-11-15] MEDS: LABETALOL HCL IV 5 MG/ML 20ML IV PRN (05:28)
[2022-11-15] MEDS: HEPARIN SOD 5,000 UNIT/0.5 ML VIAL SQ SCH ×2 (05:28→13:03)
[2022-11-15] MEDS: ACETAMINOPHEN 500 MG TAB PO SCH ×2 (05:29→13:12)
[2022-11-15 06:36] LABS: Hematocrit (blood only) 26.8 % (42.0-52.0); Mean Corpuscular Hemoglobin 30.5 pg (25.0-34.0); Mean Corpuscular Hgb Conc 33.6 g/dL (32.0-36.0); Mean Corpuscular Volume 90.8 fL (80.0-100.0); Mean Platelet Volume 10.2 fL (9.4-12.4); Platelet Count 150 K/uL (130-400); RDW Coefficient of Variation 11.7 % (11.5-14.5); RDW Standard Deviation 38.9 fL (36.4-46.3); Red Blood Count 2.95 M/uL (4.70-6.10); White Blood Count 6.81 K/ul (4.8-10.8)
[2022-11-15 06:58] LABS: Calcium 8.4 mg/dl (8.6-10.3); Est GFR (Non-African American) 33.7 ml/min; Potassium 5.2 mmol/L (3.5-5.1)
[2022-11-15 07:16] LABS: Folate (Folic Acid),Ser orPlas 13.56 ng/ml (>5.38)
[2022-11-15 07:19] LABS: Ferritin 251.8 ng/ml (8-388)
[2022-11-15] MEDS: BUPRENORPHINE/NALOXONE 8/2 MG TAB SL SCH (08:45)
[2022-11-15] MEDS: LANTUS PER UNIT CHARGE SC SCH (08:45)
[2022-11-15] MEDS: INSULIN ASPART PER UNIT CHARGE SC SCH ×2 (08:45→12:56)
[2022-11-15] MEDS: carvediloL 12.5 MG TAB PO SCH (08:46)
[2022-11-15] MEDS: amLODIPine BESYLATE 5 MG TAB PO SCH (08:48)
[2022-11-15] MEDS: FOLIC ACID 1 MG TAB PO SCH (08:48)
[2022-11-15] MEDS: lisinopril 10 MG TAB PO SCH (08:48)
[2022-11-15] MEDS: CYANOCOBALAMIN (B-12) 500 MCG TABLET PO SCH (08:49)
[2022-11-15] MEDS: FUROSEMIDE 40 MG TAB PO SCH (08:49)
[2022-11-15] MEDS: MULTIVITAMIN TAB PO SCH (08:50)
[2022-11-15] MEDS: THIAMINE HCL 100 MG TAB PO SCH (08:50)
[2022-11-15] MEDS: DOCUSATE SODIUM 100 MG CAP PO SCH (08:55)
--- NOTE | 2022-11-15 09:20 | Orthopedic Progress Note ---
Date of Service November 15, 2022 Assessment & Plan (1) S/P total left hip arthroplasty: Plan: POD 3 s/p LTHA with Dr Fritz WBAT with walker PT/OT Keep silverlon dressing in place Ice with EZ wrap DVT prophy with Teds and Aspirin Pain control with PO meds Abduction pillow use Plan is for discharge to [facility] later today once transportation is availabl Medicine is primary service Will need f/u at [facility] in 2 weeks Admission and Anticipated Discharge Date Admission Date: November 11, 2022 Subjective This 57-year-old male seen today 3 days status post left total hip arthroplasty. Patient states he is doing very well. He states that he has discussed going to rehab at [facility] with case management and to his understanding he is scheduled to be discharged there today. He states that he has been able to get up and walk around with physical therapy. He denies chest pain, shortness of breath, fever, chills, sweats, numbness or tingling in his left lower extremity. He also denies nausea, vomiting diarrhea or difficulty voiding. Review of Systems Review of Systems: All systems reviewed & are unremarkable except as noted in Subjective Physical Exam Physical Exam: Left Hip: Silverlon clean, dry and intact. Able to perform active SLRT. Able to actively dorsi/plantar flex foot. No pain with log roll. No pain with light passive hip flexion, internal or external rotation. Quad strength 4/5. NV intact in left LE. Results & Data Vital Signs (Past 12 Hours) Vital Signs Temp Pulse Pulse Resp BP Pulse Ox O2 Del Method 11/15/22 07:35 37.0 C 69 18 186/95 H 95 Room Air 11/15/22 06:02 74 175/82 H 11/15/22 05:36 99 H 12 175/85 H 11/15/22 05:28 99 H 11/15/22 04:50 37.2 C 74 20 182/84 H 98 Room Air 11/15/22 00:14 37.2 C 82 20 172/82 H 96 Room Air 11/14/22 23:24 85 Diagnostic Findings Laboratory Results WBC 6.81 K/ul (4.8-10.8) 11/15/22 06:02 RBC 2.95 M/uL (4.70-6.10) L 11/15/22 06:02 Hgb 9.0 g/dl (14.0-18.0) L 11/15/22 06:02 Hct 26.8 % (42.0-52.0) L 11/15/22 06:02 MCV 90.8 fL (80.0-100.0) 11/15/22 06:02 MCH 30.5 pg (25.0-34.0) 11/15/22 06:02 MCHC 33.6 g/dL (32.0-36.0) 11/15/22 06:02 RDW Std Deviation 38.9 fL (36.4-46.3) 11/15/22 06:02 RDW Coeff of Alberto 11.7 % (11.5-14.5) 11/15/22 06:02 Plt Count 150 K/uL (130-400) 11/15/22 06:02 MPV 10.2 fL (9.4-12.4) 11/15/22 06:02 Immature Gran % (Auto) 0.7 % 11/13/22 07:05 Neut % (Auto) 82.5 % 11/13/22 07:05 Lymph % (Auto) 10.3 % 11/13/22 07:05 Delta % (Auto) 6.4 % 11/13/22 07:05 Eos % (Auto) 0.0 % 11/13/22 07:05 Baso % (Auto) 0.1 % 11/13/22 07:05 Neut # (Auto) 9.34 K/uL (1.40-6.50) H 11/13/22 07:05 Lymph # (Auto) 1.17 K/uL (1.20-3.40) L 11/13/22 07:05 Delta # (Auto) 0.73 K/uL (0.11-0.59) H 11/13/22 07:05 Eos # (Auto) 0.00 K/uL (0.00-0.50) 11/13/22 07:05 Baso # (Auto) 0.01 K/uL (0.00-0.20) 11/13/22 07:05 Immature Gran # (Auto) 0.08 K/uL (0.01-0.20) 11/13/22 07:05 PT 10.7 Seconds (9.0-12.0) 11/11/22 08:55 INR 1.0 (0.9-1.1) 11/11/22 08:55 APTT 27.6 Seconds (21.0-31.0) 11/11/22 08:55 PTT Ratio 1.0 11/11/22 08:55 Sodium 137 mmol/L (136-145) 11/15/22 06:02 Potassium 5.2 mmol/L (3.5-5.1) H D 11/15/22 06:02 Chloride 109 mmol/L (98-107) H 11/15/22 06:02 Carbon Dioxide 24 mmol/L (21-32) 11/15/22 06:02 Anion Gap 4 (3-11) 11/15/22 06:02 BUN 63 mg/dl (6-23) H 11/15/22 06:02 Creatinine 2.10 mg/dl (0.6-1.4) H 11/15/22 06:02 Est Cr Clr Drug Dosing 46.0 ml/min 11/15/22 06:02 Est GFR ( Amer) 39.0 ml/min 11/15/22 06:02 Est GFR (Non-Af Amer) 33.7 ml/min 11/15/22 06:02 BUN/Creatinine Ratio 30.0 (10-20) H 11/15/22 06:02 Glucose 130 mg/dl (70-99(Fasting)) H 11/15/22 06:02 POC Glucose 125 mg/dl (70-99) H 11/15/22 08:16 Calcium 8.4 mg/dl (8.6-10.3) L 11/15/22 06:02 Iron 29 mcg/dl (35-175) L 11/15/22 06:02 Transferrin 152 mg/dl (200-360) L 11/15/22 06:02 Ferritin 251.8 ng/ml (8-388) 11/15/22 06:02 Total Bilirubin 0.5 mg/dl (0.2-1.0) 11/11/22 08:55 AST 21 U/L (13-39) 11/11/22 08:55 ALT 17 U/L (7-52) 11/11/22 08:55 Alkaline Phosphatase 86 U/L (34-104) 11/11/22 08:55 Troponin I High Sens 7.9 pg/ml (0-20) 11/11/22 08:55 Total Protein 7.2 gm/dl (6.0-8.3) 11/11/22 08:55 Albumin 3.6 gm/dl (3.4-5.0) 11/11/22 08:55 Globulin 3.6 gm/dl (2.5-4.0) 11/11/22 08:55 Albumin/Globulin Ratio 1.0 (0.9-2) 11/11/22 08:55 Lipase 50 U/L (11-82) 11/11/22 08:55 Vitamin B12 687 pg/ml (180-914) 11/15/22 06:02 Folate 13.56 ng/ml (>5.38) 11/15/22 06:02 Urine Color Yellow 11/11/22 10:49 Urine Appearance Clear (Clear) 11/11/22 10:49 Urine pH 5.5 (4.5-7.5) 11/11/22 10:49 Ur Specific [place] 1.016 (1.000-1.030) 11/11/22 10:49 Urine Protein 4+ (Negative) H 11/11/22 10:49 Urine Glucose (UA) 1+ (Negative) H 11/11/22 10:49 Urine Ketones Negative (Negative) 11/11/22 10:49 Urine Blood 1+ (Negative) H 11/11/22 10:49 Urine Nitrite Negative (Negative) 11/11/22 10:49 Urine Bilirubin Negative (Negative) 11/11/22 10:49 Urine Urobilinogen Negative (Negative) 11/11/22 10:49 Ur Leukocyte Esterase Negative (Negative) 11/11/22 10:49 Urine WBC (Auto) 1-5 /hpf (0-5) 11/11/22 10:49 Urine RBC (Auto) 0-4 /hpf (0-4) 11/11/22 10:49 U Hyaline Cast (Auto) 1-5 /lpf (0-5) 11/11/22 10:49 U Epithel Cells (Auto) 10-20 /lpf (0-5) H 11/11/22 10:49 Urine Bacteria (Auto) Negative (Negative) 11/11/22 10:49 Urine Opiates Screen Pos (Neg) H 11/11/22 10:49 U Codeine Confrm GC/MS NEGATIVE ng/mL (<50) 11/11/22 10:49 Ur Morphine (GC/MS) 403 ng/mL (<50) H 11/11/22 10:49 Ur Hydrocodone (GC/MS) NEGATIVE ng/mL (<50) 11/11/22 10:49 Ur Norhydrocodone NEGATIVE ng/mL (<50) 11/11/22 10:49 Ur Noroxycodone NEGATIVE ng/mL (<50) 11/11/22 10:49 Urine Oxycodone (GC/MS) NEGATIVE ng/mL (<50) 11/11/22 10:49 U Oxymorphone GC/MS NEGATIVE ng/mL (<50) 11/11/22 10:49 Ur Methadone, Qual Neg (Neg) 11/11/22 10:49 Ur Hydromorphone (GC/MS) NEGATIVE ng/mL (<50) 11/11/22 10:49 Urine Barbiturates Neg (Neg) 11/11/22 10:49 Ur Phencyclidine (PCP) Neg (Neg) 11/11/22 10:49 U Amphetamin/Meth Scrn Neg (Neg) 11/11/22 10:49 MDMA (Ecstasy) Screen Neg (Neg) 11/11/22 10:49 U Benzodiazepines Scrn Neg (Neg) 11/11/22 10:49 Ur Cocaine Metabolite Neg (Neg) 11/11/22 10:49 U Marijuana (THC) Screen Neg (Neg) 11/11/22 10:49 Drug Screen Comment SEE NOTE 11/11/22 10:49 Ethyl Alcohol mg/dL 105.0 mg/dl (<10.0) H 11/11/22 08:55 Blood Type O Positive 11/11/22 15:35 Antibody Screen NEGATIVE 11/11/22 15:[address] 11/11/22 08:27 CT OF THE CERVICAL SPINE WITHOUT CONTRAST CLINICAL HISTORY: fall COMPARISON STUDY: Cervical spine CT September 23, 2022. TECHNIQUE: Helical axial images of the cervical spine were obtained without IV contrast. Sagittal and coronal reconstructions were viewed. Automated exposure control was utilized for the study. A dose lowering technique was utilized adhering to the principles of ALARA. FINDINGS: Alignment of the cervical spine is anatomic. Vertebral body heights are maintained. No acute cervical spine fracture or subluxation is present. There is no prevertebral edema. Facet joints are intact. Mild multilevel disc space narrowing and osteophytosis within the cervical spine is present. Slight concavity of the superior endplate of T1 is unchanged. IMPRESSION: No acute cervical spine fracture or subluxation. ACT 112: Negative or not required by law. Electronically signed by: Won Amos M.D. 11/11/2022 10:11 AM Chest X-Ray 11/11/22 08:27 XR chest 1V not portable CLINICAL HISTORY: fall TECHNIQUE: Single frontal radiograph of the chest was obtained. Comparison: Comparison is made to chest radiograph 09/23/2022 FINDINGS: No lines and tubes are seen. Cardiomegaly is noted. The aortic arch is calcified. The lungs are clear. No evidence of pleural effusion or pneumothorax. IMPRESSION: No acute chest disease. ACT 112: Negative or not required by law. Electronically signed by: Hermilo Mooney M.D. 11/11/2022 10:49 AM Elbow X-Ray 11/11/22 08:27 XR elbow LT min 3V routine CLINICAL HISTORY: Left elbow pain following fall. COMPARISON: None FINDINGS: Alignment of the left elbow is anatomic. Soft tissue swelling overlying the olecranon is noted. There is no acute fracture. There is no evidence for a left elbow joint effusion. IMPRESSION: 1. No acute fracture. No evidence for a left elbow joint effusion. 2. Soft tissue swelling overlying the olecranon. ACT 112: Negative or not required by law. Electronically signed by: Won Amos M.D. 11/11/2022 10:57 AM Hand X-Ray 11/11/22 08:27 XR hand LT min 3V routine HISTORY: 57 years-old Male fall acute left hand pain status post fall COMPARISON: None TECHNIQUE: 3 views of the left hand FINDINGS: Mild osteoarthritis. Arterial calcifications. No acute fracture, dislocation or opaque foreign body. Mild dorsal hand soft tissue swelling. IMPRESSION: No acute osseous abnormality. ACT 112: Negative or not required by law. The above report was generated using voice recognition software. It may contain grammatical, syntax or spelling errors. Electronically signed by: Suhas Ramos M.D. 11/11/2022 11:[address] 11/11/22 08:27 CT OF THE HEAD WITHOUT CONTRAST CLINICAL HISTORY: fall COMPARISON STUDY: Head CT September 23, 2022. TECHNIQUE: Helical axial images of the head were obtained without IV contrast. Automated exposure control was utilized for the study. A dose lowering technique was utilized adhering to the principles of ALARA. FINDINGS: No acute intracranial hemorrhage, midline shift or mass effect is present. 3 mm colloid cyst at the foramen of Monro is again noted. The ventricular system is unremarkable. No evidence for hydrocephalus. The basal cisterns are patent. No extra-axial collections are present. There are no findings to suggest acute dural sinus thrombosis or acute territorial infarct. No significant calvarial abnormalities are present. IMPRESSION: 1. No acute intracranial findings. 2. Stable 3 mm colloid cyst. No hydrocephalus. 3. No calvarial fracture. ACT 112: Negative or not required by law. Electronically signed by: Won Amos M.D. 11/11/2022 10:08 AM Hip/Pelvis X-Ray 11/11/22 08:27 XR hip LT 2V w pelvis HISTORY: 57 years-old Male fall acute severe left-sided hip pain status post fall COMPARISON: CT 11/13/2021 TECHNIQUE: AP view of the pelvis with 2 views of the left hip FINDINGS: Arterial calcifications. Mild osteoarthritis of the hips. There is an acute fracture within the left femoral neck which appears to be transcervical with probable mild comminution. Additionally, there is impaction with apex supe rolateral angulation. No dislocation. IMPRESSION: Acute, angulated and impacted transcervical fracture of the left femur. ACT 112: Negative or not required by law. The above report was generated using voice recognition software. It may contain grammatical, syntax or spelling errors. Electronically signed by: Suhas Ramos M.D. 11/11/2022 11:[address] 11/11/22 08:27 CT lumbar spine wo con CLINICAL HISTORY: fall COMPARISON STUDY: Lumbar spine CT December 10, 2017. Lumbar spine MRI December 12, 2017. TECHNIQUE: Axial images of the lumbar spine were obtained without IV contrast. Sagittal and coronal reconstructions were viewed. Automated exposure control was utilized for the study. A dose lowering technique was utilized adhering to the principles of ALARA. FINDINGS: For purposes of numbering on this exam, the L5-S1 disc space is assigned to axial image 369 of 471. No acute lumbar spine fracture is present. Concavity of the anterior aspect of the superior plate of L5 is unchanged since prior CT and MRI. No osseous lesions are noted. There is moderate multilevel facet arthrosis. There is mild multilevel disc space narrowing. The central canal and neural foramen are suboptimally assessed given CT technique. Disc bulge, facet arthrosis and ligamentous hypertrophy results in moderate to severe central canal stenosis at L3-L4. Paravertebral soft tissues are unremarkable. IMPRESSION: 1. No acute lumbar spine fracture or subluxation. 2. Moderate to severe central canal stenosis at L3-L4 due to disc bulge, facet arthrosis and ligamentous hypertrophy, suboptimally assessed by CT. ACT 112: Negative or not required by law. Electronically signed by: Won Amos M.D. 11/11/2022 10:20 AM Pelvis X-Ray 11/12/22 09:53 XR pelvis 1-2V routine CLINICAL HISTORY: Postoperative evaluation. COMPARISON: Pelvis and left hip radiograph November 11, 2022. FINDINGS: Alignment of the left hip arthroplasty is anatomic. There is no periprosthetic fracture. No unexpected radiopaque foreign bodies are identified. IMPRESSION: Expected findings following left hip arthroplasty. ACT 112: Negative or not required by law. Electronically signed by: Won Amos M.D. 11/12/2022 11:50 AM
[2022-11-15] MEDS ORDERED: lisinopril 10 MG TAB PO ONE (09:26)
[2022-11-15] MEDS: NICOTINE 21 MG/24 HR TDSY TD SCH (10:27)
[2022-11-15 11:10] VITALS: BP 139/80; TEMP 98.4; O2SAT 98
[2022-11-15 11:19] VITALS: PULSE 99
--- NOTE | 2022-11-15 12:20 | Pharmacy Report ---
Pharmacy Glycemic Short Note 2 - Date of Service November 15, 2022 - Glycemic Short BSG Results (Last 24 hours): 11/14/22 11/14/22 11/15/22 16:29 20:42 06:02 Glucose 130 H POC Glucose 110 H 72 11/15/22 11/15/22 08:16 11:54 Glucose POC Glucose 125 H 161 H OUTPATIENT ANTIDIABETIC REGIMEN: * Jardiance 10 mg PO daily * Glipizide XL 20 mg PO daily * HbA1C = 7.1% (09/24/22) ASSESSMENT: 11/15/22 * BSGs yesterday were [id number] mg/dL. Patient received 53 units of insulin (30 units of basal and 23 units of bolus). * Fasting today is 125 mg/dL. Continue Lantus 30 units daily as fasting stable. * BSGs trended downwards yesterday. Loosen Novolog. BACKGROUND * Mr Dillard is a 57 y/o M with a PMH of T2DM who presents with a hip fracture. * Patient is currently POD0. He received dexamethasone 8 mg IV plus 4 mg in ortho prep. * Preop BSG was 135 mg/dL and postop BSG was 193 mg/dL. * For steroids + basal needs, will give Lantus 40 units SQ x 1 (slightly more than full weight-based stress of 2). * Novolog will be weight-based stress of 3 due to steroids. Overnight checks to ensure tight coverage. PLAN FOR INPATIENT GLYCEMIC CONTROL: * Hold outpatient oral diabetes medications * Basal insulin * Lantus 30 units SQ daily * Bolus insulin * NovoLog per scale ACHS or Q6hrs while NPO * Goal Range: Low 110 mg/dL - High 140 mg/dL * Correction Factor: 20 mg/dL/unit * Nutritional / Prandial insulin per carb ratio of 1 unit per 6 grams CHO consumed
--- NOTE | 2022-11-15 12:52 | Hospitalist Progress Note ---
Date of Service November 15, 2022 Assessment & Plan (1) Closed left hip fracture: Plan Left Hip fracture Secondary to fall Lumbar spinal stenosis Postoperative acute blood loss anemia -Hip X ray:Acute, angulated and impacted transcervical fracture of the left femur. --Lumbar CT:No acute lumbar spine fracture or subluxation. Moderate to severe central canal stenosis at L3-L4 due to disc bulge, facet arthrosis and ligamentous hypertrophy, suboptimally assessed by CT. --S/p left total hip arthroplasty by Dr. Fritz on 10/23/2022 Pain control PT OT: LLE Weightbearing as tolerated with walker Appreciate orthopedics input Bowel regimen to prevent constipation Fall precautions Needs follow-up with orthopedics in 2 weeks Plan to discharge to rehab facility today Chronic pain syndrome Continue Suboxone Alcohol intoxication Alcohol abuse Alcohol level 105 on admission Continue gabapentin protocol Continue thiamine, folic acid Monitor for withdrawal Continue Ativan as needed No signs of withdrawal currently Hypertensive Urgency Likely situational Continue amlodipine, Coreg Given renal insufficiency, recurrent hypokalemia will discontinue lisinopril Increase Coreg to 25 mg twice a day for better blood pressure control IV labetalol as needed Monitor BP Acute kidney injury Likely prerenal Cr 2.6>1.8 Received IV fluids Avoid nephrotoxic agents as able Monitor renal function Lisinopril discontinued Cr 2.1 today Hyperkalemia Likely due to ONDINA, lisinopril Monitor potassium levels CAD: S/p stent H/O Cardiomyopathy Echo in 2020 EF 55% Continue aspirin, metoprolol, statin DM II Most recent A1c: 7.1 on 10/09 Hold p.o. diabetes meds while hospitalized Continue insulin per protocol Monitor blood glucose levels CATALINO: H/O noncompliance with CPAP DVT Px: Heparin SQ Code Status Full Code Disposition Rehab Admission and Anticipated Discharge Date Admission Date: November 11, 2022 Subjective Patient is seen and examined at bedside States feeling well today No new complaints BP variable Denies any significant pain at surgical site No significant alcohol withdrawal symptoms Denies any chest pain, dyspnea, dizziness, nausea, vomiting, abdominal pain Plan to discharge to rehab facility today Review of Systems Review of Systems: All systems reviewed & are unremarkable except as noted in Subjective Physical Exam Physical Exam: Physical Exam: Vitals signs as noted above General Appearance:Obese, no apparent distress, chronically ill appearing Head: normocephalic, Atraumatic Eyes: normal inspection, EOMI Neck: supple, Trachea midline Respiratory/Chest: Coarse breath sounds, No accessory muscle use Cardiovascular: S1, S2, No murmur Abdomen/GI:Soft, Non tender, Bowel sounds present Extremities/Musculoskeletal:normal inspection, left hip surgical site in dressing Neurologic/Psych:AAOX3, grossly no focal neurological deficits Skin: normal color, warm Results & Data Results & Data Vital Signs (Past 12 Hours) Vital Signs Temp Pulse Pulse Resp BP Pulse Ox O2 Del Method 11/15/22 11:10 36.9 C 75 18 139/80 98 Room Air 11/15/22 08:00 99 H 11/15/22 07:35 37.0 C 69 18 186/95 H 95 Room Air 11/15/22 06:02 74 175/82 H 11/15/22 05:36 99 H 12 175/85 H 11/15/22 05:28 99 H 11/15/22 04:50 37.2 C 74 20 182/84 H 98 Room Air Laboratory Results Short CBC 11/14/22 11/15/22 Range/Units 15:32 06:02 WBC 6.81 (4.8-10.8) K/ul Hgb 7.9 L 9.0 L (14.0-18.0) g/dl Hct 23.3 L 26.8 L (42.0-52.0) % Plt Count 150 (130-400) K/uL BMP 11/15/22 06:02 Sodium 137 Potassium 5.2 H D Chloride 109 H Carbon Dioxide 24 BUN 63 H Creatinine 2.10 H Glucose 130 H Calcium 8.4 L
--- NOTE | 2022-11-15 13:24 | Discharge Summary ---
Date of Service November 15, 2022 Admission HPI Per Admitting Provider 56-year-old male with past medical history significant for type 2 diabetes, chronic kidney disease stage III, hyperlipidemia, ongoing tobacco abuse, ongoing alcoholism, emphysema, obstructive sleep apnea, noncompliant with CPAP, hypertension, CAD, fatty liver, depression, anxiety disorder, history of anemia, multiple admission for alcohol withdrawal, currently homeless was brought to the ED after he had a fall. Pt said that he was in [facility] napping under a tree. when he woke up, he climbed a wall that is about 3 feet high. He fell on his left side. he said that he did not hit his head. He said that he had an excruciated pain in his left hip. He was brought to the ER. He said that the pain is constant and grade 10 out 10 in intensity. He said that left hip pain worsening with movement of the LLE. Pt said that he was recently discharged from alcohol rehab. He could not recall if he was last week or this week. He could not remember for how long that he was in rehab. He said that in the last couple days that he has been drinking 2 pins of local beer that contains 13% alcohol. He said that his last drink of alcohol was last night. He said that he has not been eating food or drinking water much. He did not remember when was the last time he took his medications. He said that he took one tab of Buprenorphine/naloxone 8-2mg tablet daily, not twice a day. I had a previous note where I documented that he has been prescribed suboxone twice a day but he only takes it once a day. Denies any any chest pain, palpitation, dizziness and SOB. Admission Exam Per Admitting Provider General- No acute distress, but tired Head- atraumatic Eyes- PERRL, EOMI, no nystagmus ENT- oropharynx clear Neck- supple, no JVD Lungs- clear to auscultation Heart- +tachycardia; no murmur Abdomen- normal bowel sounds, soft, nontender Extremities- no calf tenderness, left hip tenderness Neuro- alert, awake, oriented to person, situation and place, not with time. PERRL, EOMI; no facial palsy; no dysarthria, no nystagmus, finger to nose intake, able to follow command Skin- warm & dry,abrasions over the left fourth and fifth digits Principal Diagnosis Left Hip fracture Secondary to fall Lumbar spinal stenosis Postoperative acute blood loss anemia Alcohol intoxication Acute kidney injury Hyperkalemia Discharge Data Allergies Allergy/AdvReac Type Severity Reaction Status Date / Time pollen extracts Allergy Intermediate SNEEZING, Verified 11/11/22 12:05 CONGESTION Consultations 11/11/22 11:23 ED Decision to Admit Stat 11/11/22 11:51 Consult Orthopedic Surgery Stat 11/11/22 15:27 Consult Orthopedic Surgery Routine Procedures Performed Operation Date: 11/12/22 07:30 Actual Procedures p Left Total Hip Arthroplasty(Left) - Juvenal Fritz MD Laboratory Results WBC 6.81 K/ul (4.8-10.8) 11/15/22 06:02 RBC 2.95 M/uL (4.70-6.10) L 11/15/22 06:02 Hgb 9.0 g/dl (14.0-18.0) L 11/15/22 06:02 Hct 26.8 % (42.0-52.0) L 11/15/22 06:02 MCV 90.8 fL (80.0-100.0) 11/15/22 06:02 MCH 30.5 pg (25.0-34.0) 11/15/22 06:02 MCHC 33.6 g/dL (32.0-36.0) 11/15/22 06:02 RDW Std Deviation 38.9 fL (36.4-46.3) 11/15/22 06:02 RDW Coeff of Alberto 11.7 % (11.5-14.5) 11/15/22 06:02 Plt Count 150 K/uL (130-400) 11/15/22 06:02 MPV 10.2 fL (9.4-12.4) 11/15/22 06:02 Immature Gran % (Auto) 0.7 % 11/13/22 07:05 Neut % (Auto) 82.5 % 11/13/22 07:05 Lymph % (Auto) 10.3 % 11/13/22 07:05 Moody % (Auto) 6.4 % 11/13/22 07:05 Eos % (Auto) 0.0 % 11/13/22 07:05 Baso % (Auto) 0.1 % 11/13/22 07:05 Neut # (Auto) 9.34 K/uL (1.40-6.50) H 11/13/22 07:05 Lymph # (Auto) 1.17 K/uL (1.20-3.40) L 11/13/22 07:05 Moody # (Auto) 0.73 K/uL (0.11-0.59) H 11/13/22 07:05 Eos # (Auto) 0.00 K/uL (0.00-0.50) 11/13/22 07:05 Baso # (Auto) 0.01 K/uL (0.00-0.20) 11/13/22 07:05 Immature Gran # (Auto) 0.08 K/uL (0.01-0.20) 11/13/22 07:05 PT 10.7 Seconds (9.0-12.0) 11/11/22 08:55 INR 1.0 (0.9-1.1) 11/11/22 08:55 APTT 27.6 Seconds (21.0-31.0) 11/11/22 08:55 PTT Ratio 1.0 11/11/22 08:55 Sodium 137 mmol/L (136-145) 11/15/22 06:02 Potassium 5.2 mmol/L (3.5-5.1) H D 11/15/22 06:02 Chloride 109 mmol/L (98-107) H 11/15/22 06:02 Carbon Dioxide 24 mmol/L (21-32) 11/15/22 06:02 Anion Gap 4 (3-11) 11/15/22 06:02 BUN 63 mg/dl (6-23) H 11/15/22 06:02 Creatinine 2.10 mg/dl (0.6-1.4) H 11/15/22 06:02 Est Cr Clr Drug Dosing 46.0 ml/min 11/15/22 06:02 Est GFR ( Amer) 39.0 ml/min 11/15/22 06:02 Est GFR (Non-Af Amer) 33.7 ml/min 11/15/22 06:02 BUN/Creatinine Ratio 30.0 (10-20) H 11/15/22 06:02 Glucose 130 mg/dl (70-99(Fasting)) H 11/15/22 06:02 POC Glucose 161 mg/dl (70-99) H 11/15/22 11:54 Calcium 8.4 mg/dl (8.6-10.3) L 11/15/22 06:02 Iron 29 mcg/dl (35-175) L 11/15/22 06:02 Transferrin 152 mg/dl (200-360) L 11/15/22 06:02 Ferritin 251.8 ng/ml (8-388) 11/15/22 06:02 Total Bilirubin 0.5 mg/dl (0.2-1.0) 11/11/22 08:55 AST 21 U/L (13-39) 11/11/22 08:55 ALT 17 U/L (7-52) 11/11/22 08:55 Alkaline Phosphatase 86 U/L (34-104) 11/11/22 08:55 Troponin I High Sens 7.9 pg/ml (0-20) 11/11/22 08:55 Total Protein 7.2 gm/dl (6.0-8.3) 11/11/22 08:55 Albumin 3.6 gm/dl (3.4-5.0) 11/11/22 08:55 Globulin 3.6 gm/dl (2.5-4.0) 11/11/22 08:55 Albumin/Globulin Ratio 1.0 (0.9-2) 11/11/22 08:55 Lipase 50 U/L (11-82) 11/11/22 08:55 Vitamin B12 687 pg/ml (180-914) 11/15/22 06:02 Folate 13.56 ng/ml (>5.38) 11/15/22 06:02 Urine Color Yellow 11/11/22 10:49 Urine Appearance Clear (Clear) 11/11/22 10:49 Urine pH 5.5 (4.5-7.5) 11/11/22 10:49 Ur Specific [place] 1.016 (1.000-1.030) 11/11/22 10:49 Urine Protein 4+ (Negative) H 11/11/22 10:49 Urine Glucose (UA) 1+ (Negative) H 11/11/22 10:49 Urine Ketones Negative (Negative) 11/11/22 10:49 Urine Blood 1+ (Negative) H 11/11/22 10:49 Urine Nitrite Negative (Negative) 11/11/22 10:49 Urine Bilirubin Negative (Negative) 11/11/22 10:49 Urine Urobilinogen Negative (Negative) 11/11/22 10:49 Ur Leukocyte Esterase Negative (Negative) 11/11/22 10:49 Urine WBC (Auto) 1-5 /hpf (0-5) 11/11/22 10:49 Urine RBC (Auto) 0-4 /hpf (0-4) 11/11/22 10:49 U Hyaline Cast (Auto) 1-5 /lpf (0-5) 11/11/22 10:49 U Epithel Cells (Auto) 10-20 /lpf (0-5) H 11/11/22 10:49 Urine Bacteria (Auto) Negative (Negative) 11/11/22 10:49 Urine Opiates Screen Pos (Neg) H 11/11/22 10:49 U Codeine Confrm GC/MS NEGATIVE ng/mL (<50) 11/11/22 10:49 Ur Morphine (GC/MS) 403 ng/mL (<50) H 11/11/22 10:49 Ur Hydrocodone (GC/MS) NEGATIVE ng/mL (<50) 11/11/22 10:49 Ur Norhydrocodone NEGATIVE ng/mL (<50) 11/11/22 10:49 Ur Noroxycodone NEGATIVE ng/mL (<50) 11/11/22 10:49 Urine Oxycodone (GC/MS) NEGATIVE ng/mL (<50) 11/11/22 10:49 U Oxymorphone GC/MS NEGATIVE ng/mL (<50) 11/11/22 10:49 Ur Methadone, Qual Neg (Neg) 11/11/22 10:49 Ur Hydromorphone (GC/MS) NEGATIVE ng/mL (<50) 11/11/22 10:49 Urine Barbiturates Neg (Neg) 11/11/22 10:49 Ur Phencyclidine (PCP) Neg (Neg) 11/11/22 10:49 U Amphetamin/Meth Scrn Neg (Neg) 11/11/22 10:49 MDMA (Ecstasy) Screen Neg (Neg) 11/11/22 10:49 U Benzodiazepines Scrn Neg (Neg) 11/11/22 10:49 Ur Cocaine Metabolite Neg (Neg) 11/11/22 10:49 U Marijuana (THC) Screen Neg (Neg) 11/11/22 10:49 Drug Screen Comment SEE NOTE 11/11/22 10:49 Ethyl Alcohol mg/dL 105.0 mg/dl (<10.0) H 11/11/22 08:55 Blood Type O Positive 11/11/22 15:35 Antibody Screen NEGATIVE 11/11/22 15:[address] 11/11/22 08:27 CT OF THE CERVICAL SPINE WITHOUT CONTRAST CLINICAL HISTORY: fall COMPARISON STUDY: Cervical spine CT September 23, 2022. TECHNIQUE: Helical axial images of the cervical spine were obtained without IV contrast. Sagittal and coronal reconstructions were viewed. Automated exposure control was utilized for the study. A dose lowering technique was utilized adhering to the principles of ALARA. FINDINGS: Alignment of the cervical spine is anatomic. Vertebral body heights are maintained. No acute cervical spine fracture or subluxation is present. There is no prevertebral edema. Facet joints are intact. Mild multilevel disc space narrowing and osteophytosis within the cervical spine is present. Slight concavity of the superior endplate of T1 is unchanged. IMPRESSION: No acute cervical spine fracture or subluxation. ACT 112: Negative or not required by law. Electronically signed by: Won Amos M.D. 11/11/2022 10:11 AM Chest X-Ray 11/11/22 08:27 XR chest 1V not portable CLINICAL HISTORY: fall TECHNIQUE: Single frontal radiograph of the chest was obtained. Comparison: Comparison is made to chest radiograph 09/23/2022 FINDINGS: No lines and tubes are seen. Cardiomegaly is noted. The aortic arch is calcified. The lungs are clear. No evidence of pleural effusion or pneumothorax. IMPRESSION: No acute chest disease. ACT 112: Negative or not required by law. Electronically signed by: Hermilo Mooney M.D. 11/11/2022 10:49 AM Elbow X-Ray 11/11/22 08:27 XR elbow LT min 3V routine CLINICAL HISTORY: Left elbow pain following fall. COMPARISON: None FINDINGS: Alignment of the left elbow is anatomic. Soft tissue swelling overlying the olecranon is noted. There is no acute fracture. There is no evidence for a left elbow joint effusion. IMPRESSION: 1. No acute fracture. No evidence for a left elbow joint effusion. 2. Soft tissue swelling overlying the olecranon. ACT 112: Negative or not required by law. Electronically signed by: Won Amos M.D. 11/11/2022 10:57 AM Hand X-Ray 11/11/22 08:27 XR hand LT min 3V routine HISTORY: 57 years-old Male fall acute left hand pain status post fall COMPARISON: None TECHNIQUE: 3 views of the left hand FINDINGS: Mild osteoarthritis. Arterial calcifications. No acute fracture, dislocation or opaque foreign body. Mild dorsal hand soft tissue swelling. IMPRESSION: No acute osseous abnormality. ACT 112: Negative or not required by law. The above report was generated using voice recognition software. It may contain grammatical, syntax or spelling errors. Electronically signed by: Suhas Ramos M.D. 11/11/2022 11:[address] 11/11/22 08:27 CT OF THE HEAD WITHOUT CONTRAST CLINICAL HISTORY: fall COMPARISON STUDY: Head CT September 23, 2022. TECHNIQUE: Helical axial images of the head were obtained without IV contrast. Automated exposure control was utilized for the study. A dose lowering technique was utilized adhering to the principles of ALARA. FINDINGS: No acute intracranial hemorrhage, midline shift or mass effect is present. 3 mm colloid cyst at the foramen of Monro is again noted. The ventricular system is unremarkable. No evidence for hydrocephalus. The basal cisterns are patent. No extra-axial collections are present. There are no findings to suggest acute dural sinus thrombosis or acute territorial infarct. No significant calvarial abnormalities are present. IMPRESSION: 1. No acute intracranial findings. 2. Stable 3 mm colloid cyst. No hydrocephalus. 3. No calvarial fracture. ACT 112: Negative or not required by law. Electronically signed by: Won Amos M.D. 11/11/2022 10:08 AM Hip/Pelvis X-Ray 11/11/22 08:27 XR hip LT 2V w pelvis HISTORY: 57 years-old Male fall acute severe left-sided hip pain status post fall COMPARISON: CT 11/13/2021 TECHNIQUE: AP view of the pelvis with 2 views of the left hip FINDINGS: Arterial calcifications. Mild osteoarthritis of the hips. There is an acute fracture within the left femoral neck which appears to be transcervical with probable mild comminution. Additionally, there is impaction with apex superolateral angulation. No dislocation. IMPRESSION: Acute, angulated and impacted transcervical fracture of the left femur. ACT 112: Negative or not required by law. The above report was generated using voice recognition software. It may contain grammatical, syntax or spelling errors. Electronically signed by: Suhas Ramos M.D. 11/11/2022 11:[address] 11/11/22 08:27 CT lumbar spine wo con CLINICAL HISTORY: fall COMPARISON STUDY: Lumbar spine CT December 10, 2017. Lumbar spine MRI December 12, 2017. TECHNIQUE: Axial images of the lumbar spine were obtained without IV contrast. Sagittal and coronal reconstructions were viewed. Automated exposure control was utilized for the study. A dose lowering technique was utilized adhering to the principles of ALARA. FINDINGS: For purposes of numbering on this exam, the L5-S1 disc space is assigned to axial image 369 of 471. No acute lumbar spine fracture is present. Concavity of the anterior aspect of the superior plate of L5 is unchanged since prior CT and MRI. No osseous lesions are noted. There is moderate multilevel facet arthrosis. There is mild multilevel disc space narrowing. The central canal and neural foramen are suboptimally assessed given CT technique. Disc bulge, facet arthrosis and ligamentous hypertrophy results in moderate to severe central canal stenosis at L3-L4. Paravertebral soft tissues are unremarkable. IMPRESSION: 1. No acute lumbar spine fracture or subluxation. 2. Moderate to severe central canal stenosis at L3-L4 due to disc bulge, facet arthrosis and ligamentous hypertrophy, suboptimally assessed by CT. ACT 112: Negative or not required by law. Electronically signed by: Won Amos M.D. 11/11/2022 10:20 AM Pelvis X-Ray 11/12/22 09:53 XR pelvis 1-2V routine CLINICAL HISTORY: Postoperative evaluation. COMPARISON: Pelvis and left hip radiograph November 11, 2022. FINDINGS: Alignment of the left hip arthroplasty is anatomic. There is no pe riprosthetic fracture. No unexpected radiopaque foreign bodies are identified. IMPRESSION: Expected findings following left hip arthroplasty. ACT 112: Negative or not required by law. Electronically signed by: Won Amos M.D. 11/12/2022 11:50 AM Ordered Studies 11/11/22 08:27 CT cervical spine wo con Stat CT head/brain wo con Stat CT lumbar spine wo con Stat Hospital Course (1) Closed left hip fracture: Plan Left Hip fracture Secondary to fall Lumbar spinal stenosis Postoperative acute blood loss anemia -Hip X ray:Acute, angulated and impacted transcervical fracture of the left femur. --Lumbar CT:No acute lumbar spine fracture or subluxation. Moderate to severe central canal stenosis at L3-L4 due to disc bulge, facet arthrosis and ligamentous hypertrophy, suboptimally assessed by CT. --S/p left total hip arthroplasty by Dr. Fritz on 10/23/2022 Pain control PT OT: LLE Weightbearing as tolerated with walker Appreciate orthopedics input Bowel regimen to prevent constipation Fall precautions Needs follow-up with orthopedics in 2 weeks Plan to discharge to rehab facility today Chronic pain syndrome Continue Suboxone Alcohol intoxication Alcohol abuse Alcohol level 105 on admission Continue gabapentin protocol Continue thiamine, folic acid Monitor for withdrawal Continue Ativan as needed No signs of withdrawal currently Hypertensive Urgency Likely situational Continue amlodipine, Coreg Given renal insufficiency, recurrent hypokalemia will discontinue lisinopril Increase Coreg to 25 mg twice a day for better blood pressure control IV labetalol as needed Monitor BP Acute kidney injury Likely prerenal Cr 2.6>1.8 Received IV fluids Avoid nephrotoxic agents as able Monitor renal function Lisinopril discontinued Cr 2.1 today Hyperkalemia Likely due to ONDINA, lisinopril Monitor potassium levels CAD: S/p stent H/O Cardiomyopathy Echo in 2020 EF 55% Continue aspirin, metoprolol, statin DM II Most recent A1c: 7.1 on 10/09 Hold p.o. diabetes meds while hospitalized Continue insulin per protocol Monitor blood glucose levels CATALINO: H/O noncompliance with CPAP DVT Px: Heparin SQ Code Status Full Code Disposition Rehab Total Time Total Time Spent Total Time Spent (In Minutes): 55 minutes Discharge Plan Discharge Items Patient Disposition: Transfer Inpatient Rehab Fac Reason For Visit: LEFT HIP FRACTURE Discharge Diagnosis: Left Hip fracture Secondary to fall Lumbar spinal stenosis Postoperative acute blood loss anemia Alcohol intoxication Acute kidney injury Hyperkalemia Activity: Per Instructions section Non-emergency contact: Primary Care Provider and Surgeon Call non-emergency contact if: you have any medication questions, your symptoms worsen, your pain is concerning for you, you have a fever, your wound has increased redness, your wound has increased drainage and your wound pain has increased Follow-up/Referrals: Charity Reed MD [Primary Care Provider] - Panfilo Morris PA-C [Physician Classroom Assistant] - 11/25/22 10:00 am Diet: Carb Consistent or DM2 and Heart Healthy Mk Attending Provider Instructions: Follow-up with your primary physician Dr. Reed in 1 week upon discharge from rehab facility Follow-up with your orthopedic surgeon Panfilo Morris PA-C on 11/25/2022 at 10 AM as scheduled -- Continue aspirin 81 mg twice a day for DVT prophylaxis as recommended by orthopedic surgery --Quit drinking alcohol as advised -- Get blood test(basic metabolic panel) in 1 week to monitor your renal function, potassium. Follow-up with your physician with results for further recommendations. Seek immediate medical attention if your symptoms reoccur or worsen Please take all medications as instructed on discharge list below. Please call if you have any questions or problems. You can reach a [facility] hospitalist on duty at [facility] 24 hours a day by calling [phone] Addtl Manager Photo Provider Instructions: continue with weightbearing as tolerated with walker Keep silverlon dressing in place, keep dry and intact Ice with EZ wrap as needed with a towel layer x20-30 minutes DVT prophylaxis with Teds and Aspirin Pain control with pain medication Abduction pillow use while in bed Continue with hip precautions. Will need f/u at [facility] in 2 weeks if not already scheduled call [phone] Pending Studies at Discharge: No Stand-Alone Forms: My [facility] Skilled Items Patient informed of condition?: Yes DNR: No Discharge Level of Care: Acute rehab Communicable Disease: No Discharge Prognosis: Stable Lines: None Urinary Catheter: No Medications and DC Order Prescriptions: New docusate sodium 100 mg Capsule 100 mg PO BID PRN (Reason: Constipation) Qty: 30 0RF aspirin 81 mg tablet,delayed release (DR/EC) 81 mg PO BID Qty: 60 0RF nicotine [Nicoderm CQ] 21 mg/24 hr Patch 24 Hour 21 mg transdermal QAM Qty: 0 0RF Continued folic acid 1 mg Tablet 1 mg PO QAM atorvastatin 80 mg tablet 80 mg PO HS buprenorphine-naloxone 8-2 mg tablet, sublingual 1 tab SUBLINGUAL BID furosemide 40 mg tablet 40 mg PO DAILY glipizide 10 mg tablet extended release 24hr 20 mg PO DAILY Jardiance 10 mg tablet 10 mg PO DAILY amlodipine [Norvasc] 5 mg Tablet 5 mg PO BID Qty: 60 0RF cyanocobalamin (vitamin B-12) [Vitamin B-12] 1,000 mcg Tablet 1,000 mcg PO DAILY thiamine HCl (vitamin B1) [Vitamin B-1] 100 mg Tablet 100 mg PO DAILY nitroglycerin 0.4 mg tablet, sublingual 0.4 mg sublingual DIRECTED PRN (Reason: Chest Pain) tamsulosin 0.4 mg capsule 0.4 mg PO HS mirtazapine 15 mg tablet 7.5 mg PO HS Changed carvedilol 12.5 mg tablet 25 mg PO BID Qty: 30 0RF Rx Instructions: AM , HS Discontinued lisinopril 10 mg 10 mg PO DAILY Discharge Orders: Discharge Order (Routine); Ordered 11/15/22 Ordered By: Tico Bullock Admission Data Admit Date/Time: 11/11/22 12:51 Attending Provider: Tico Bullock Admit Provider: Ryan Akers Primary Care Provider: Charity Reed Other Providers: Juvenal Firtz ; Ryan Akers ; [facility] ; [facility] ; [facility],
[2022-11-15] MEDS ORDERED: carvediloL 25 MG TAB PO SCH (21:00)
[2022-11-16] MEDS ORDERED: lisinopril 20 MG TAB PO SCH (09:00)
== END 2022-11-15 15:33 | DRG 522 ==
LOC: ED 08:06 → EDINP 12:51 → SUATTDRO 12:51 → 2S 15:30 → 2N 11-12 14:06

== ENCOUNTER 2023-07-12 16:51 | Inpatient (IN) ==
--- NOTE | 2023-07-12 17:06 | ED Triage Note ---
Date of Service July 12, 2023 Provider in Triage Author: Jarett Liz. History of Present Illness This patient was briefly evaluated while in triage. An abbreviated physical exam was performed. This patient is a 58-year-old Male who presents to the ED for evaluation of worsening renal function over the past 2 weeks. Referred by finishing pan operator. No symptoms. Still making urine. Physical Exam CONSTITUTIONAL: in no acute pain or distress, resting comfortably SKIN: pink, warm, dry RESPIRATORY: in no respiratory distress Initial orders for labs and / or imaging were placed and patient was placed in the waiting area until a bed is available. Please see further documentation for the full ED course.
[2023-07-12 17:56] LABS: Basophils # (auto) 0.04 K/uL (0.00-0.20); Basophils % (auto) 0.7 %; Eosinophils # (auto) 0.11 K/uL (0.00-0.50); Eosinophils % (auto) 1.9 %; Hematocrit (blood only) 30.8 % (42.0-52.0); Hemoglobin 10.2 g/dl (14.0-18.0); Immature Granulocytes # (auto) 0.01 K/uL (0.01-0.20); Immature Granulocytes % (auto) 0.2 %; Lymphocytes # (auto) 1.87 K/uL (1.20-3.40); Lymphocytes % (auto) 33.1 %; Mean Corpuscular Hemoglobin 28.5 pg (25.0-34.0); Mean Corpuscular Hgb Conc 33.1 g/dL (32.0-36.0); Mean Platelet Volume 10.5 fL (9.4-12.4); Monocytes # (auto) 0.74 K/uL (0.11-0.59); Monocytes % (auto) 13.1 %; Neutrophils # (auto) 2.88 K/uL (1.40-6.50); Platelet Count 236 K/uL (130-400); RDW Standard Deviation 40.8 fL (36.4-46.3); Red Blood Count 3.58 M/uL (4.70-6.10); White Blood Count 5.65 K/ul (4.8-10.8)
[2023-07-12 18:31] LABS: Alanine Aminotransferase 13 U/L (7-52); Albumin Globulin Ratio 1.1 (0.9-2); Albumin Level 3.8 gm/dl (3.4-5.0); Alkaline Phosphatase 119 U/L (34-104); Anion Gap 11 (3-11); BUN Creatinine Ratio 18.1 (10-20); Bilirubin,Total 0.3 mg/dl (0.2-1.0); Blood Urea Nitrogen 85 mg/dl (6-23); Calcium 8.9 mg/dl (8.6-10.3); Carbon Dioxide 19 mmol/L (21-32); Chloride 107 mmol/L (98-107); Creatinine Clr Calc Pharmacy 19.7 ml/min; Est GFR (African American) 14.6 ml/min; Est GFR (Non-African American) 12.6 ml/min; Globulin 3.6 gm/dl (2.5-4.0); Glucose 158 mg/dl (70-99(Fasting)); Magnesium 1.9 mg/dl (1.7-2.4); Sodium 137 mmol/L (136-145); Total Protein 7.4 gm/dl (6.0-8.3)
[2023-07-12 19:12] LABS: Appearance Urine Clear (Clear); Bacteria Urine Automated None Seen (None Seen); Bilirubin Urine Negative (Negative); Blood Urine Negative (Negative); Cast Urine Automated 0-2 /lpf (0-2); Color Urine Yellow; Epithelial Cell Urine Auto 0-2 /hpf (0-2); Glucose Urine UA 3+ (Negative); Ketones Urine Negative (Negative); Leukocyte Esterase Urine Negative (Negative); Nitrite Urine Negative (Negative); Protein Urine 3+ (Negative); RBC Urine Automated 0-2 /hpf (0-2); Specific Gravity Urine 1.017 (1.000-1.030); Urobilinogen Urine Negative (Negative); WBC Urine Automated 0-5 /hpf (0-5); pH Urine 5.5 (4.5-7.5)
[2023-07-12 20:39] LABS: Potassium 5.3 mmol/L (3.5-5.1)
--- NOTE | 2023-07-12 21:26 | History & Physical Report ---
Date of Service July 12, 2023 Assessment & Plan (1) ONDINA (acute kidney injury): Plan: 58-year-old male with past medical history significant for type 2 diabetes, hyperlipidemia, obstructive apnea seems noncompliant, pulmonary emphysema, hypertension, ischemic cardiomyopathy, history of CAD, CKD stage III/IV, fatty liver, persistent proteinuria, polyneuropathy, anemia, history of alcoholism, depression, generalized anxiety disorder, history of substance abuse, mild cognitive impairment, food insecurity, was homeless before currently lives with a sister comes because of ONDINA. Patient outpatient labs were showing worsening kidney function and and was advised to come to the hospital. Patient says he is micturating okay. Denies any hematuria. No nausea or vomiting. No abdominal pain. Normal bowel movements. No chest pain or shortness of breath. Currently no swelling of the legs. Has dry skin. Appetite is okay. Denies any headache or dizziness. Has some runny nose from allergies. Denies any cough. States ambulating okay in the house. Currently living with his sister. Sister states his last alcohol drink was in December and he had a couple of drinks in February. Still smoking. Currently resting comfortably and hemodynamically stable. ONDINA on CKD stage III/IV Presents with creatinine of 4.7 His creatinine was in the twos in February 2023 Renal ultrasound is okay Will monitor in the hospital Consult nephrology in a.m. for further recommendation Hyperkalemia Potassium 5.3 Low potassium diet Follow labs Metabolic acidosis CO2 19 Mostly from CKD Follow labs Nephrology consulted Diabetes Continue home Lantus. Hold Jardiance Sliding scale Will monitor History of CAD Status post drug-eluting stents to in December 2018 On aspirin, statin History of polysubstance abuse History of alcoholism and was in rehab History of withdrawal seizures Currently not drinking Continue folic acid will monitor. Ongoing tobacco abuse Counseling Nicotine patch Chronic systolic CHF EF 49% Not on diuretics We will monitor Obstructive sleep apnea Patient states not using CPAP for long time Will monitor Anemia Chronic Hemoglobin 10.2 Will follow labs Hypertension On nifedipine . Monitor Hyperlipidemia On statin Depression General Anxiety disorder On duloxetine GERD Protonix DVT prophylaxis Heparin subcu Disposition Telemetry Full code History of Present Illness Chief Complaint: ONDINA Primary Care Provider: Charity Reed MD 58-year-old male with past medical history significant for type 2 diabetes, hyperlipidemia, obstructive apnea seems noncompliant, pulmonary emphysema, hypertension, ischemic cardiomyopathy, history of CAD, CKD stage III/IV, fatty liver, persistent proteinuria, polyneuropathy, anemia, history of alcoholism, depression, generalized anxiety disorder, history of substance abuse, mild cognitive impairment, food insecurity, was homeless before currently lives with a sister comes because of ONDINA. Patient outpatient labs were showing worsening kidney function and and was advised to come to the hospital. Patient says he is micturating okay. Denies any hematuria. No nausea or vomiting. No abdominal pain. Normal bowel movements. No chest pain or shortness of breath. Currently no swelling of the legs. Has dry skin. Appetite is okay. Denies any headache or dizziness. Has some runny nose from allergies. Denies any cough. States ambulating okay in the house. Currently living with his sister. Sister states his last alcohol drink was in December and he had a couple of drinks in February. Still smoking. Currently resting comfortably and hemodynamically stable. Past med history. As mentioned above. Past surgical history. Colonoscopy. Social history. Smokes 2 packs a day for 40 years. History of chronic heavy alcohol use and was in rehab but currently not drinking. No drug use. Family history. Paternal grandmother had diabetes. Paternal grandfather had heart disorder. Maternal grandmother had heart disorder. Allergies Allergy/AdvReac Type Severity Reaction Status Date / Time pollen extracts Allergy Intermediate SNEEZING, Verified 07/12/23 20:39 CONGESTION Home Medications Medication Instructions Recorded Confirmed Type atorvastatin 80 mg tablet 80 mg PO HS 10/25/21 07/12/23 History nitroglycerin 0.4 mg sublingual 0.4 mg sublingual DIRECTED PRN 09/23/22 07/12/23 History tablet Chest Pain aspirin 81 mg tablet,delayed 81 mg PO BID #60 tabs 11/15/22 07/12/23 Rx release duloxetine 30 mg capsule,delayed 30 mg PO DAILY 03/27/23 07/12/23 History release empagliflozin 10 mg tablet 10 mg PO DAILY #30 tabs 03/27/23 07/12/23 Rx insulin lispro 100 unit/mL 5 unit (0.05 mL) subcut TID #15 mL 03/27/23 07/12/23 Rx subcutaneous pen (Humalog KwikPen (U-100) Insulin) [id number] 120 mcg-lutein 1 tab PO DAILY 03/27/23 07/12/23 History 150 mcg-herb 50 mg chewable tablet (Alive Men's 50 Plus Multivitamin) nifedipine 60 mg tablet,extended 60 mg PO DAILY 03/27/23 07/12/23 History release pantoprazole 40 mg tablet,delayed 40 mg PO DAILY 03/27/23 07/12/23 History release Lantus Solostar U-100 Insulin 100 16 unit (0.16 mL) subcut DAILY #15 03/29/23 07/12/23 Rx unit/mL (3 mL) subcutaneous pen mL (insulin glargine) blood-glucose sensor (Dexcom G7 #3 ea 04/18/23 07/12/23 Rx Sensor device) pen needle, diabetic 32 gauge x #150 ea 04/18/23 07/12/23 Rx 5/32" (BD Arpita 2nd Gen Pen Needle) cholecalciferol (vitamin D3) 50 100 mcg PO DAILY 06/27/23 07/12/23 History mcg (2,000 unit) capsule citalopram 10 mg tablet (Celexa) 0 mg PO DAILY 07/12/23 07/12/23 History desloratadine 5 mg tablet 5 mg PO DAILY 07/12/23 07/12/23 History folic acid 1 mg tablet 1 mg PO DAILY 07/12/23 07/12/23 History lactobacillus combination no.4 3 3,000 mmu cells PO DAILY 07/12/23 07/12/23 History billion cell capsule (Probiotic) Past Med/Surg History Medical History ONDINA (acute kidney injury) Alcohol abuse Alcohol use disorder, severe, dependence Alcohol withdrawal syndrome Bilateral edema of lower extremity Chronic anemia Diabetes mellitus type 2 with complications Discharge planning issues TONEY (dyspnea on exertion) DVT prophylaxis Encounter for pre-operative examination HTN (hypertension) Hypomagnesemia Ischemic cardiomyopathy Mood disorder Neuropathy NSTEMI (non-ST elevated myocardial infarction) Obesity CATALINO (obstructive sleep apnea) Proteinuria Smoking Tobacco use disorder Type 2 diabetes mellitus Surgical History History of cardiac catheterization 1 ELIESER to proximal OM by Dr. Guerrero on 01/01/19 History of lymph node biopsy Family History Other Diabetes Heart disease Hypertension Social History Smoking Status: Current every day smoker Tobacco Type: Cigarettes Cigarettes Per Day: 1/2 pack a day; Second Hand Exposure: No; Do You Dip or Chew Tobacco: No; Hx Alcohol Use: No Hx Substance Use: No Preferred Language: Bruneian Communication Ability: Effective Vice President Of Instruction Required: No Beliefs That Will Affect Care: None marital status: Single Current Living Situation: Alone Current Living Situation Comment: Living in car current occupational status: unemployed How many Children do You have: 2 Feels Safe at Home: Yes Safety Concerns: Feels Safe At This Time Assistive Devices: None Review of Systems Review of Systems: All systems reviewed & are unremarkable except as noted in HPI & below Physical Exam Physical Exam: General- Not in distress Head- atraumatic Eyes- PERRL. ENT- oropharynx clear Neck- supple, no JVD. Lungs- clear to auscultation no wheezing or crackles. Heart- regular rhythm; no murmur, no gallop. Abdomen- normal bowel sounds, soft, nontender, no distension. Extremities- no pretibial edema, no erythema seen Neuro- alert, oriented x 3; PERRL, no facial palsy; no dysarthria; moves extremities. Skin- warm & dry Results & Data Results & Data Vital Signs (Past 12 Hours) Vital Signs Temp Pulse Pulse Resp BP BP Pulse Ox 07/12/23 20:02 78 18 179/98 H 98 07/12/23 16:51 18 07/12/23 16:51 36.6 C 82 18 168/61 H 99 O2 Del Method 07/12/23 20:02 Room Air 07/12/23 16:51 07/12/23 16:51 Diagnostic Findings Laboratory Results WBC 5.65 K/ul (4.8-10.8) 07/12/23 17:34 RBC 3.58 M/uL (4.70-6.10) L 07/12/23 17:34 Hgb 10.2 g/dl (14.0-18.0) L 07/12/23 17:34 Hct 30.8 % (42.0-52.0) L 07/12/23 17:34 MCV 86.0 fL (80.0-100.0) 07/12/23 17:34 MCH 28.5 pg (25.0-34.0) 07/12/23 17:34 MCHC 33.1 g/dL (32.0-36.0) 07/12/23 17:34 RDW Std Deviation 40.8 fL (36.4-46.3) 07/12/23 17:34 RDW Coeff of Alberto 13.0 % (11.5-14.5) 07/12/23 17:34 Plt Count 236 K/uL (130-400) 07/12/23 17:34 MPV 10.5 fL (9.4-12.4) 07/12/23 17:34 Immature Gran % (Auto) 0.2 % 07/12/23 17:34 Neut % (Auto) 51.0 % 07/12/23 17:34 Lymph % (Auto) 33.1 % 07/12/23 17:34 [place] % (Auto) 13.1 % 07/12/23 17:34 Eos % (Auto) 1.9 % 07/12/23 17:34 Baso % (Auto) 0.7 % 07/12/23 17:34 Neut # (Auto) 2.88 K/uL (1.40-6.50) 07/12/23 17:34 Lymph # (Auto) 1.87 K/uL (1.20-3.40) 07/12/23 17:34 [place] # (Auto) 0.74 K/uL (0.11-0.59) H 07/12/23 17:34 Eos # (Auto) 0.11 K/uL (0.00-0.50) 07/12/23 17:34 Baso # (Auto) 0.04 K/uL (0.00-0.20) 07/12/23 17:34 Immature Gran # (Auto) 0.01 K/uL (0.01-0.20) 07/12/23 17:34 Sodium 137 mmol/L (136-145) 07/12/23 17:34 Potassium 5.3 mmol/L (3.5-5.1) H 07/12/23 19:50 Chloride 107 mmol/L (98-107) 07/12/23 17:34 Carbon Dioxide 19 mmol/L (21-32) L 07/12/23 17:34 Anion Gap 11 (3-11) 07/12/23 17:34 BUN 85 mg/dl (6-23) H 07/12/23 17:34 Creatinine 4.70 mg/dl (0.6-1.4) H* 07/12/23 17:34 Est Cr Clr Drug Dosing 19.7 ml/min 07/12/23 17:34 Est GFR ( Amer) 14.6 ml/min 07/12/23 17:34 Est GFR (Non-Af Amer) 12.6 ml/min 07/12/23 17:34 BUN/Creatinine Ratio 18.1 (10-20) 07/12/23 17:34 Glucose 158 mg/dl (70-99(Fasting)) H 07/12/23 17:34 Calcium 8.9 mg/dl (8.6-10.3) 07/12/23 17:34 Magnesium 1.9 mg/dl (1.7-2.4) 07/12/23 17:34 Total Bilirubin 0.3 mg/dl (0.2-1.0) 07/12/23 17:34 AST 17 U/L (13-39) 07/12/23 19:50 ALT 13 U/L (7-52) 07/12/23 17:34 Alkaline Phosphatase 119 U/L (34-104) H 07/12/23 17:34 Total Protein 7.4 gm/dl (6.0-8.3) 07/12/23 17:34 Albumin 3.8 gm/dl (3.4-5.0) 07/12/23 17:34 Globulin 3.6 gm/dl (2.5-4.0) 07/12/23 17:34 Albumin/Globulin Ratio 1.1 (0.9-2) 07/12/23 17:34 Urine Color Yellow 07/12/23 18:51 Urine Appearance Clear (Clear) 07/12/23 18:51 Urine pH 5.5 (4.5-7.5) 07/12/23 18:51 Ur Specific [place] 1.017 (1.000-1.030) 07/12/23 18:51 Urine Protein 3+ (Negative) H 07/12/23 18:51 Urine Glucose (UA) 3+ (Negative) H 07/12/23 18:51 Urine Ketones Negative (Negative) 07/12/23 18:51 Urine Blood Negative (Negative) 07/12/23 18:51 Urine Nitrite Negative (Negative) 07/12/23 18:51 Urine Bilirubin Negative (Negative) 07/12/23 18:51 Urine Urobilinogen Negative (Negative) 07/12/23 18:51 Ur Leukocyte Esterase Negative (Negative) 07/12/23 18:51 Urine WBC (Auto) 0-5 /hpf (0-5) 07/12/23 18:51 Urine RBC (Auto) 0-2 /hpf (0-2) 07/12/23 18:51 U Hyaline Cast (Auto) 0-2 /lpf (0-2) 07/12/23 18:51 U Epithel Cells (Auto) 0-2 /hpf (0-2) 07/12/23 18:51 Urine Bacteria (Auto) None Seen (None Seen) 07/12/23 18:51 Ethyl Alcohol mg/dL < 10.0 mg/dl (<10.0) 07/12/23 17:34 Impressions Renal Ultrasound 07/12/23 18:46 Exam(s): US RENAL EXAM: US Retroperitoneal Limited, Renal CLINICAL HISTORY: Reason for exam: renal failure. TECHNIQUE: Real-time limited ultrasound of the retroperitoneum with image documentation. COMPARISON: None. FINDINGS: Right kidney: The right kidney measures 10.4 x 5.0 x 5.0 cm. No stones. No hydronephrosis. Left kidney: The left kidney measures 11.6 x 7.0 x 5.7 cm. No stones. No hydronephrosis. Bladder: The visualized urinary bladder is unremarkable. Bilateral ureteral jets are visualized. IMPRESSION: Unremarkable renal ultrasound. Electronically signed by: Gogo Ureña MD 07/12/23 21:25 PM ECG Additional Comments: ECG. Sinus rhythm with PACs rate of 76. No acute ST changes seen.
[2023-07-12] MEDS ORDERED: POLYETHYLENE (MIRALAX) 17 GM PACK PO PRN (22:57)
[2023-07-12] MEDS ORDERED: GLUCOSE 40% GEL 15 GM TUBE PO PRN (22:57)
[2023-07-12] MEDS ORDERED: GLUCOSE 10 TAB/TUBE PO PRN (22:57)
[2023-07-12] MEDS ORDERED: GLUCAGON FOR INJ 1 MG VIAL SQ PRN (22:57)
[2023-07-12] MEDS ORDERED: ACETAMINOPHEN 325 MG TAB PO PRN (22:57)
[2023-07-12] MEDS ORDERED: DEXTROSE 50% 50 ML SYRINGE IV PRN (22:57)
[2023-07-12] MEDS ORDERED: NITROGLYCERIN SL 0.4 MG/TAB TAB SL PRN ×2 (22:57)
[2023-07-12] MEDS ORDERED: CARBOHYDRATES FOR HYPOGLYCEMIA PO PRN (22:57)
--- NOTE | 2023-07-13 01:20 | Emergency Department Note ---
Impression & Plan Acute on chronic renal insufficiency ED Provider Note CHIEF COMPLAINT: Abnormal labs HISTORY OF PRESENT ILLNESS: This patient is a 58-year-old male who presents emergency department at the recommendation of his room attendant to obtain laboratory work and noted worsening renal function. Patient was sent to the emergency department for further evaluation and likely admission. Patient denies any recent medication changes or illnesses. He denies any urinary difficulties. He has not had any recent fevers, chest pain or shortness of breath. REVIEW OF SYSTEMS: A review of systems was performed with positives and pertinent negatives listed in the history of present illness. 10 systems were reviewed and are otherwise negative. ALLERGIES: see below MEDICATIONS: see below PMH: see below SOCIAL HISTORY: see below DDx: Acute coronary syndrome, esophageal reflux, peptic ulcer, pneumothorax, sternal fracture, in no significant distress. GENERAL: Chronically ill-appearing 58-year-old male, no significant distress. Sitting in a waiting room chair. HEENT: Normal, PERRLA, neck supple. Moist mucous membranes. Cardiovascular: Regular rate and rhythm, no extra sounds. Pulmonary: Clear to auscultation bilaterally, normal work of breathing. Abdomen: Soft, nontender, nondistended, positive bowel sounds. Musculoskeletal: Atraumatic, no peripheral edema. Neurologic: Patient awake alert and oriented x 3, speech is clear Skin: Warm, dry, no rash EMERGENCY DEPARTMENT COURSE/MDM: this patient was evaluated and appeared to be in no significant distress. Patient's laboratory work was obtained and confirms worsening renal failure. Potassium was hemolyzed on first draw and a repeat potassium has been ordered. EKG appears to be stable. Ultrasound of the retroperitoneum was ordered and is negative for acute findings. Patient was discussed with the hospitalist, Dr. Payne who will evaluate the patient for admission and further management. Patient is aware of the plan and agrees. MONITORING: An order for cardiac monitoring was placed and the patient is noted to be in a NSR at 83 bpm. RADIOLOGY: Renal US per rads is unremarkable. EKG: to my interpretation reveals a NSR at 76 bpm, QTc 470, normal ST segments. No PVC, no PAC. DISPOSITION: Admission Past Med/Surg History Medical History CKD (chronic kidney disease) stage 4, GFR 15-29 ml/min Encounter for pre-operative examination ONDINA (acute kidney injury) Alcohol use disorder, severe, dependence Alcohol withdrawal syndrome CATALINO (obstructive sleep apnea) Chronic anemia Proteinuria Bilateral edema of lower extremity TONEY (dyspnea on exertion) Discharge planning issues Smoking Diabetes mellitus type 2 with complications Ischemic cardiomyopathy DVT prophylaxis Hypomagnesemia Alcohol abuse Mood disorder Obesity NSTEMI (non-ST elevated myocardial infarction) Tobacco use disorder Neuropathy Type 2 diabetes mellitus HTN (hypertension) Surgical History History of cardiac catheterization 1 ELIESER to proximal OM by Dr. 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 Required: No Beliefs That Will Affect Care: None marital status: Single Current Living Situation: Alone Current Living Situation Comment: Living in car current occupational status: unemployed How many Children do You have: 2 Feels Safe at Home: Yes Safety Concerns: Feels Safe At This Time Assistive Devices: None Allergies Allergies Allergy/AdvReac Type Severity Reaction Status Date / Time pollen extracts Allergy Intermediate SNEEZING, Verified 07/12/23 20:39 CONGESTION Home Meds Home Medications Medication Instructions Recorded Confirmed atorvastatin 80 mg tablet 80 mg PO HS 10/25/21 07/12/23 nitroglycerin 0.4 mg sublingual 0.4 mg sublingual DIRECTED PRN 09/23/22 07/12/23 tablet Chest Pain duloxetine 30 mg capsule,delayed 30 mg PO DAILY 03/27/23 07/12/23 release mpmorwua-qyg-cevfu 120 mcg-lutein 1 tab PO DAILY 03/27/23 07/12/23 150 mcg-herb 50 mg chewable tablet (Alive Men's 50 Plus Multivitamin) nifedipine 60 mg tablet,extended 60 mg PO DAILY 03/27/23 07/12/23 release pantoprazole 40 mg tablet,delayed 40 mg PO DAILY 03/27/23 07/12/23 release cholecalciferol (vitamin D3) 50 100 mcg PO DAILY 06/27/23 07/12/23 mcg (2,000 unit) capsule citalopram 10 mg tablet (Celexa) 0 mg PO DAILY 07/12/23 07/12/23 desloratadine 5 mg tablet 5 mg PO DAILY 07/12/23 07/12/23 folic acid 1 mg tablet 1 mg PO DAILY 07/12/23 07/12/23 lactobacillus combination no.4 3 3,000 mmu cells PO DAILY 07/12/23 07/12/23 billion cell capsule (Probiotic) Previous Rx's Medication Instructions Recorded aspirin 81 mg tablet,delayed 81 mg PO BID #60 tabs 11/15/22 release empagliflozin 10 mg tablet 10 mg PO DAILY #30 tabs 03/27/23 insulin lispro 100 unit/mL 5 unit (0.05 mL) subcut TID #15 mL 03/27/23 subcutaneous pen (Humalog KwikPen (U-100) Insulin) Lantus Solostar U-100 Insulin 100 16 unit (0.16 mL) subcut DAILY #15 03/29/23 unit/mL (3 mL) subcutaneous pen mL (insulin glargine) blood-glucose sensor (Dexcom G7 #3 ea 04/18/23 Sensor device) pen needle, diabetic 32 gauge x #150 ea 04/18/23 532" (BD Arpita 2nd Gen Pen Needle) Results & Data (ED) Vital Signs Vital Signs - 24 hr 07/12/23 16:51 07/12/23 16:51 07/12/23 20:02 Temperature 36.6 C Temperature Source Temporal Artery Scan Pulse Rate 82 Pulse Rate [Right Finger] 78 Pulse Rate from SpO2 Sensor Respiratory Rate 18 18 18 Respiratory Effort / Characteristics Non-Labored Respiratory Depth Normal Blood Pressure 168/61 H Blood Pressure [Right Arm] 179/98 H Blood Pressure Mean 96 Blood Pressure Mean [Right Arm] 125 Blood Pressure Position [Right Arm] Sitting Pulse Oximetry 99 98 Oxygen Delivery Method Room Air Sepsis Recent Fever Within 48 Hours No Sepsis New/Unexplained Change in Mental Status N/A Sepsis Action Taken by Nursing No Action Required 07/12/23 21:07 07/12/23 21:07 07/12/23 21:30 Temperature Temperature Source Pulse Rate 77 77 79 Pulse Rate [Right Finger] Pulse Rate from SpO2 Sensor 77 78 Respiratory Rate 16 20 Respiratory Effort / Characteristics Respiratory Depth Blood Pressure Blood Pressure [Right Arm] Blood Pressure Mean Blood Pressure Mean [Right Arm] Blood Pressure Position [Right Arm] Pulse Oximetry 99 97 Oxygen Delivery Method Sepsis Recent Fever Within 48 Hours Sepsis New/Unexplained Change in Mental Status Sepsis Action Taken by Nursing 07/12/23 21:30 Temperature Temperature Source Pulse Rate Pulse Rate [Right Finger] Pulse Rate from SpO2 Sensor Respiratory Rate Respiratory Effort / Characteristics Respiratory Depth Blood Pressure 163/87 H Blood Pressure [Right Arm] Blood Pressure Mean 119 Blood Pressure Mean [Right Arm] Blood Pressure Position [Right Arm] Pulse Oximetry Oxygen Delivery Method Sepsis Recent Fever Within 48 Hours Sepsis New/Unexplained Change in Mental Status Sepsis Action Taken by Jail Medications Current Medication List: was personally reviewed by me Laboratory Data Attestation: I reviewed the patient's lab results. 07/14/23 06:22 07/15/23 05:47 Lab Results 07/12/23 07/12/23 07/12/23 Range/Units 17:34 18:51 19:50 WBC 5.65 (4.8-10.8) K/ul RBC 3.58 L (4.70-6.10) M/uL Hgb 10.2 L (14.0-18.0) g/dl Hct 30.8 L (42.0-52.0) % MCV 86.0 (80.0-100.0) fL MCH 28.5 (25.0-34.0) pg MCHC 33.1 (32.0-36.0) g/dL RDW Std Deviation 40.8 (36.4-46.3) fL RDW Coeff of Alberto 13.0 (11.5-14.5) % Plt Count 236 (130-400) K/uL MPV 10.5 (9.4-12.4) fL Immature Gran % (Auto) 0.2 % Neut % (Auto) 51.0 % Lymph % (Auto) 33.1 % [place] % (Auto) 13.1 % Eos % (Auto) 1.9 % Baso % (Auto) 0.7 % Neut # (Auto) 2.88 (1.40-6.50) K/uL Lymph # (Auto) 1.87 (1.20-3.40) K/uL [place] # (Auto) 0.74 H (0.11-0.59) K/uL Eos # (Auto) 0.11 (0.00-0.50) K/uL Baso # (Auto) 0.04 (0.00-0.20) K/uL Immature Gran # (Auto) 0.01 (0.01-0.20) K/uL Sodium 137 (136-145) mmol/L Potassium TNP 5.3 H Chloride 107 (98-107) mmol/L Carbon Dioxide 19 L (21-32) mmol/L Anion Gap 11 (3-11) BUN 85 H (6-23) mg/dl Creatinine 4.70 H* (0.6-1.4) mg/dl Est Cr Clr Drug Dosing 19.7 ml/min Est GFR ( Amer) 14.6 ml/min Est GFR (Non-Af Amer) 12.6 ml/min BUN/Creatinine Ratio 18.1 (10-20) Glucose 158 H (70-99(Fasting)) mg/dl Calcium 8.9 (8.6-10.3) mg/dl Magnesium 1.9 (1.7-2.4) mg/dl Total Bilirubin 0.3 (0.2-1.0) mg/dl AST TNP 17 ALT 13 (7-52) U/L Alkaline Phosphatase 119 H (34-104) U/L Total Protein 7.4 (6.0-8.3) gm/dl Albumin 3.8 (3.4-5.0) gm/dl Globulin 3.6 (2.5-4.0) gm/dl Albumin/Globulin Ratio 1.1 (0.9-2) Urine Color Yellow Urine Appearance Clear (Clear) Urine pH 5.5 (4.5-7.5) Ur Specific [place] 1.017 (1.000-1.030) Urine Protein 3+ H (Negative) Urine Glucose (UA) 3+ H (Negative) Urine Ketones Negative (Negative) Urine Blood Negative (Negative) Urine Nitrite Negative (Negative) Urine Bilirubin Negative (Negative) Urine Urobilinogen Negative (Negative) Ur Leukocyte Esterase Negative (Negative) Urine WBC (Auto) 0-5 (0-5) /hpf Urine RBC (Auto) 0-2 (0-2) /hpf U Hyaline Cast (Auto) 0-2 (0-2) /lpf U Epithel Cells (Auto) 0-2 (0-2) /hpf Urine Bacteria (Auto) None Seen (None Seen) Ethyl Alcohol mg/dL < 10.0 (<10.0) mg/dl Administered Medications Aspirin (Aspirin 81 Mg Ectab) 81 mg PO BID LUCINDA Stop: 08/12/23 08:59 Last Admin: 07/15/23 09:08 Dose: 81 mg Documented By: Admin: 07/14/23 20:37 Dose: 81 mg Documented By: Admin: 07/14/23 09:26 Dose: 81 mg Documented By: Admin: 07/13/23 20:14 Dose: 81 mg Documented By: Admin: 07/13/23 09:08 Dose: 81 mg Documented By: DANIEL Atorvastatin Calcium (Atorvastatin 40 Mg Tab) 80 mg PO HS LUCINDA Stop: 08/12/23 20:59 Last Admin: 07/14/23 20:37 Dose: 80 mg Documented By: Admin: 07/13/23 20:14 Dose: 80 mg Documented By: MIS Carvedilol (Carvedilol 6.25 Mg Tab) 6.25 mg PO BIDM LUCINDA Stop: 08/12/23 17:59 Last Admin: 07/15/23 09:07 Dose: 6.25 mg Documented By: Admin: 07/14/23 17:00 Dose: Not Given Documented By: Admin: 07/14/23 09:26 Dose: 6.25 mg Documented By: Admin: 07/13/23 18:29 Dose: 6.25 mg Documented By: CHERYL Duloxetine HCl (Duloxetine Hcl 30 Mg Cap) 30 mg PO DAILY LUCINDA Stop: 08/12/23 08:59 Last Admin: 07/15/23 09:08 Dose: 30 mg Documented By: Admin: 07/14/23 09:26 Dose: 30 mg Documented By: Admin: 07/13/23 09:06 Dose: 30 mg Documented By: DANIEL Folic Acid (Folic Acid 1 Mg Tab) 1 mg PO DAILY LUCINDA Stop: 08/12/23 08:59 Last Admin: 07/15/23 09:08 Dose: 1 mg Documented By: Admin: 07/14/23 09:27 Dose: 1 mg Documented By: Admin: 07/13/23 09:06 Dose: 1 mg Documented By: DANIEL Heparin Sodium (Porcine) (Heparin Sod 5,000 Unit/0.5 Ml Vial) 5,000 units SQ Q8 LUCINDA Stop: 08/11/23 22:56 Last Admin: 07/15/23 13:01 Dose: 5,000 units Documented By: Admin: 07/15/23 05:11 Dose: Not Given Documented By: Admin: 07/14/23 20:36 Dose: 5,000 units Documented By: Admin: 07/14/23 13:11 Dose: 5,000 units Documented By: Admin: 07/14/23 05:08 Dose: 5,000 units Documented By: Admin: 07/13/23 21:58 Dose: 5,000 units Documented By: Admin: 07/13/23 13:56 Dose: 5,000 units Documented By: Admin: 07/13/23 10:24 Dose: 5,000 units Documented By: Admin: 07/13/23 01:27 Dose: 5,000 units Documented By: BOOM Hydralazine HCl (Hydralazine 10 Mg Tab) 10 mg PO Q4H PRN PRN Reason: Hypertension Stop: 08/12/23 17:59 Last Admin: 07/15/23 13:01 Dose: 10 mg Documented By: Admin: 07/15/23 05:07 Dose: 10 mg Documented By: Admin: 07/14/23 09:26 Dose: 10 mg Documented By: CHERYL Sodium Bicarbonate 50 meq/ (Sodium Chloride) 1,050 mls @ 80 mls/hr IV .Q13H8M [facility] Stop: 08/12/23 17:59 Last Admin: 07/15/23 09:15 Dose: 80 mls/hr Documented By: Infusion: 07/15/23 09:15 Dose: Infused Documented By: Admin: 07/14/23 20:31 Dose: 80 mls/hr Documented By: Infusion: 07/14/23 20:16 Dose: Infused Documented By: Admin: 07/14/23 07:08 Dose: 80 mls/hr Documented By: Infusion: 07/14/23 07:07 Dose: Infused Documented By: Admin: 07/13/23 18:29 Dose: 80 mls/hr Documented By: CHERYL Insulin Aspart (Insulin Aspart Per Unit Charge) 0 units SC ACHS LUCINDA Stop: 08/12/23 07:29 Last Admin: 07/15/23 11:56 Dose: Not Given Documented By: Admin: 07/15/23 07:50 Dose: Not Given Documented By: Admin: 07/14/23 20:35 Dose: Not Given Documented By: Admin: 07/14/23 17:37 Dose: 3 units Documented By: CHERYL Co-signed By: ADRIEN Admin: 07/14/23 12:31 Dose: 2 units Documented By: CHERYL Co-signed By: DOUGIE Admin: 07/14/23 09:25 Dose: 1 units Documented By: CHERYL Co-signed By: DARRON Admin: 07/13/23 20:48 Dose: Not Given Documented By: Admin: 07/13/23 17:46 Dose: Not Given Documented By: Admin: 07/13/23 13:56 Dose: 2 units Documented By: GREGG Co-signed By: MANN Admin: 07/13/23 10:23 Dose: 1 units Documented By: DANIEL Co-signed By: LADAN Insulin Glargine (Lantus Per Unit Charge) 16 units SQ DAILY LUCINDA Stop: 08/12/23 08:59 Last Admin: 07/15/23 09:01 Dose: 16 units Documented By: ELIESER Co-signed By: DARRON Admin: 07/14/23 09:26 Dose: 16 units Documented By: CHERYL Co-signed By: DARRON Admin: 07/13/23 10:27 Dose: 16 units Documented By: DANIEL Co-signed By: LADAN Lactobacillus Acidophilus (Advanced Probiotic 625 Mg Capsule) 1,250 mg PO DAILY LUCINDA Stop: 08/12/23 08:59 Last Admin: 07/15/23 09:08 Dose: 1,250 mg Documented By: Admin: 07/14/23 09:26 Dose: 1,250 mg Documented By: Admin: 07/13/23 09:06 Dose: 1,250 mg Documented By: DANIEL Loratadine (Loratadine 10 Mg Tab) 10 mg PO DAILY LUCINDA Stop: 08/12/23 08:59 Last Admin: 07/15/23 09:08 Dose: 10 mg Documented By: Admin: 07/14/23 09:26 Dose: 10 mg Documented By: Admin: 07/13/23 09:07 Dose: 10 mg Documented By: DANIEL Magnesium Oxide (Magnesium Oxide 400 Mg Tab) 400 mg PO QAM LUCINDA Stop: 08/14/23 08:59 Last Admin: 07/15/23 09:08 Dose: 400 mg Documented By: ELIESER Miscellaneous (Remove Nicoderm Patch) 1 each N/A DAILY@0859 LUCINDA Stop: 08/12/23 08:58 Last Admin: 07/15/23 09:15 Dose: 1 each Documented By: Admin: 07/14/23 12:23 Dose: 1 each Documented By: Admin: 07/13/23 14:33 Dose: 1 each Documented By: GREGG Multivitamins/Minerals (Cerovite Adv Formula Tab) 1 tab PO DAILY LUCINDA Stop: 08/12/23 08:59 Last Admin: 07/15/23 09:08 Dose: 1 tab Documented By: Admin: 07/14/23 09:26 Dose: 1 tab Documented By: Admin: 07/13/23 09:04 Dose: 1 tab Documented By: DANIEL Nicotine (Nicotine 21 Mg/24 Hr Tdsy) 1 patch TD QAM LUCINDA Stop: 08/12/23 08:59 Last Admin: 07/15/23 09:14 Dose: 1 patch Documented By: Admin: 07/14/23 12:23 Dose: 1 patch Documented By: Admin: 07/13/23 09:16 Dose: 1 patch Documented By: DANIEL Nifedipine (Nifedipine Extended Rel 30 Mg Tabcr) 60 mg PO DAILY LUCINDA Stop: 08/12/23 08:59 Last Admin: 07/15/23 09:09 Dose: 60 mg Documented By: Admin: 07/14/23 09:26 Dose: 60 mg Documented By: Admin: 07/13/23 09:04 Dose: 60 mg Documented By: DANIEL Pantoprazole Sodium (Pantoprazole 40 Mg Tab) 40 mg PO DAILY LUCINDA Stop: 08/12/23 08:59 Last Admin: 07/15/23 09:07 Dose: 40 mg Documented By: Admin: 07/14/23 09:26 Dose: 40 mg Documented By: Admin: 07/13/23 09:05 Dose: 40 mg Documented By: DANIEL Thiamine HCl (Thiamine Hcl 100 Mg Tab) 100 mg PO QAM [facility] Stop: 08/13/23 10:44 Last Admin: 07/15/23 09:09 Dose: 100 mg Documented By: Admin: 07/14/23 12:23 Dose: 100 mg Documented By: CHERYL Vitamin D (Cholecalciferol 25 Mcg (1000 Units) Tab) 100 mcg PO DAILY LUCINDA Stop: 08/12/23 08:59 Last Admin: 07/15/23 09:08 Dose: 100 mcg Documented By: Admin: 07/14/23 09:26 Dose: 100 mcg Documented By: Admin: 07/13/23 09:08 Dose: 100 mcg Documented By: DANIEL Discontinued Medications Hydralazine HCl (Hydralazine Hcl 20 Mg/Ml Vial) 5 mg IV NOW ONE Stop: 07/13/23 12:25 Last Admin: 07/13/23 12:36 Dose: 5 mg Documented By: GREGG Imaging Data Radiologist's Impression: Renal Ultrasound 07/12/23 18:46 Exam(s): US RENAL EXAM: US Retroperitoneal Limited, Renal CLINICAL HISTORY: Reason for exam: renal failure. TECHNIQUE: Real-time limited ultrasound of the retroperitoneum with image documentation. COMPARISON: None. FINDINGS: Right kidney: The right kidney measures 10.4 x 5.0 x 5.0 cm. No stones. No hydronephrosis. Left kidney: The left kidney measures 11.6 x 7.0 x 5.7 cm. No stones. No hydronephrosis. Bladder: The visualized urinary bladder is unremarkable. Bilateral ureteral jets are visualized. IMPRESSION: Unremarkable renal ultrasound. Electronically signed by: Gogo Ureña MD 07/12/23 21:25 PM Discharge Plan Visit Data Chief Complaint: Abnormal Labs/Diagnostic Testing Stated Complaint: KIDNEY FAILURE, ABN LAB RESULTS ED Provider: Bouchra George Discharge Problem: Acute on chronic renal insufficiency Patient Disposition: Admitted As Inpatient Discharge Instructions Interventions: ED Discharge Assessment Last Done: 07/13/23 14:46
[2023-07-13] MEDS: HEPARIN SOD 5,000 UNIT/0.5 ML VIAL SQ SCH (01:27)
[2023-07-13] MEDS ORDERED: Nursing to Pharmacy Communication SCH (04:30)
[2023-07-13 06:53] LABS: Basophils # (auto) 0.04 K/uL (0.00-0.20); Basophils % (auto) 0.7 %; Eosinophils # (auto) 0.15 K/uL (0.00-0.50); Eosinophils % (auto) 2.5 %; Hemoglobin 10.1 g/dl (14.0-18.0); Immature Granulocytes # (auto) 0.01 K/uL (0.01-0.20); Immature Granulocytes % (auto) 0.2 %; Lymphocytes # (auto) 1.63 K/uL (1.20-3.40); Lymphocytes % (auto) 26.8 %; Mean Corpuscular Hemoglobin 28.6 pg (25.0-34.0); Mean Corpuscular Hgb Conc 32.6 g/dL (32.0-36.0); Mean Corpuscular Volume 87.8 fL (80.0-100.0); Mean Platelet Volume 10.2 fL (9.4-12.4); Monocytes # (auto) 0.83 K/uL (0.11-0.59); Monocytes % (auto) 13.6 %; Neutrophils # (auto) 3.43 K/uL (1.40-6.50); Neutrophils % (auto) 56.2 %; Platelet Count 220 K/uL (130-400); RDW Coefficient of Variation 13.1 % (11.5-14.5); RDW Standard Deviation 41.2 fL (36.4-46.3); Red Blood Count 3.53 M/uL (4.70-6.10); White Blood Count 6.09 K/ul (4.8-10.8)
[2023-07-13 07:14] LABS: BUN Creatinine Ratio 17.8 (10-20); Calcium 9.3 mg/dl (8.6-10.3); Creatinine Clr Calc Pharmacy 21.1 ml/min; Est GFR (Non-African American) 13.8 ml/min; Magnesium 1.8 mg/dl (1.7-2.4)
[2023-07-13 08:09] LABS: Estimated Average Glucose 180 mg/dl; Hemoglobin A1C 7.9 % (4.5-5.6)
--- NOTE | 2023-07-13 08:12 | Hospitalist Progress Note ---
Date of Service July 13, 2023 Assessment & Plan (1) ONDINA (acute kidney injury): Plan: 58 yo M with past medical history significant for type 2 diabetes, hyperlipidemia, obstructive apnea seems noncompliant, pulmonary emphysema, hypertension, ischemic cardiomyopathy, history of CAD, CKD stage III/IV, fatty liver, persistent proteinuria, polyneuropathy, anemia, history of alcoholism, depression, generalized anxiety disorder, history of substance abuse, mild c ognitive impairment, food insecurity, was homeless before currently lives with a sister comes because of ONDINA. Patient outpatient labs were showing worsening kidney function and and was advised to come to the hospital. Patient says he is micturating okay. Denies any hematuria. No nausea or vomiting. No abdominal pain. Normal bowel movements. No chest pain or shortness of breath. Currently no swelling of the legs. Has dry skin. Appetite is okay. Denies any headache or dizziness. Has some runny nose from allergies. Denies any cough. States ambulating okay in the house. Currently living with his sister. Sister states his last alcohol drink was in December and he had a couple of drinks in February. Still smoking. Currently resting comfortably and hemodynamically stable. ONDINA on CKD stage III/IV Presents with creatinine of 4.7 -> now down to 4.3 His creatinine was in the twos in February 2023 Renal ultrasound obtained unremarkable Will monitor in the hospital Nephrology consulted, appreciate recommendations Hyperkalemia Potassium 5.3 on admission Low potassium diet Follow labs Metabolic acidosis CO2 19 Mostly from CKD Follow labs Nephrology consulted Diabetes Continue home Lantus. Hold Jardiance Sliding scale Will monitor History of CAD Status post drug-eluting stents to in December 2018 On aspirin, statin History of polysubstance abuse History of alcoholism and was in rehab History of withdrawal seizures Currently not drinking Continue folic acid will monitor. Ongoing tobacco abuse Counseling Nicotine patch Chronic systolic CHF EF 49% Not on diuretics We will monitor Obstructive sleep apnea Patient states not using CPAP for long time Will monitor Anemia Chronic Hemoglobin 10.2 Will follow labs Hypertension On nifedipine will add coreg Cont. to Monitor Hyperlipidemia On statin Depression General Anxiety disorder On duloxetine GERD Protonix DVT prophylaxis - Heparin subcu Disposition - Telemetry Full code Admission and Anticipated Discharge Date Admission Date: July 12, 2023 Subjective Pt seen in follow up of ONDINA on CKD Currently laying in bed in NAD Has hx of alcoholism, homelessness, lived with his sister - now says he lives alone - just recently No fever, chills, chest pain, shortness of breath, abd. pain, n/v Nephrology consulted for ONDINA on CKD Review of Systems Review of Systems: All systems reviewed & are unremarkable except as noted in Subjective Physical Exam Physical Exam: General- WD/WN in NAD Head- atraumatic Eyes- PERRL. Neck- supple, no JVD. Lungs- clear to auscultation no wheezing or crackles. Heart- regular rhythm; no murmur Abdomen- normal bowel sounds, soft, nontender, no distension. Extremities- no pretibial edema, no erythema seen Neuro- alert, oriented x 3; PERRL, no facial palsy; no dysarthria; moves extremities. Skin- warm & dry Results & Data Results & Data Vital Signs (Past 12 Hours) Vital Signs Pulse Pulse Resp BP BP Pulse Ox O2 Del Method 07/13/23 07:35 82 07/13/23 00:35 79 19 99 Room Air 07/13/23 00:23 79 16 166/95 H 98 Room Air 07/12/23 23:02 81 07/12/23 22:30 80 19 99 07/12/23 22:30 179/106 H 07/12/23 22:00 82 19 199/111 H 98 07/12/23 21:30 163/87 H 07/12/23 21:30 79 20 97 07/12/23 21:07 77 16 99 07/12/23 21:07 77 Laboratory Results 07/13/23 07/12/23 07/12/23 Range/Units 06:00 19:50 18:51 WBC 6.09 (4.8-10.8) K/ul RBC 3.53 L (4.70-6.10) M/uL Hgb 10.1 L (14.0-18.0) g/dl Hct 31.0 L (42.0-52.0) % MCV 87.8 (80.0-100.0) fL MCH 28.6 (25.0-34.0) pg MCHC 32.6 (32.0-36.0) g/dL RDW Std Deviation 41.2 (36.4-46.3) fL RDW Coeff of Alberto 13.1 (11.5-14.5) % Plt Count 220 (130-400) K/uL MPV 10.2 (9.4-12.4) fL Immature Gran % (Auto) 0.2 % Neut % (Auto) 56.2 % Lymph % (Auto) 26.8 % [place] % (Auto) 13.6 % Eos % (Auto) 2.5 % Baso % (Auto) 0.7 % Neut # (Auto) 3.43 (1.40-6.50) K/uL Lymph # (Auto) 1.63 (1.20-3.40) K/uL [place] # (Auto) 0.83 H (0.11-0.59) K/uL Eos # (Auto) 0.15 (0.00-0.50) K/uL Baso # (Auto) 0.04 (0.00-0.20) K/uL Immature Gran # (Auto) 0.01 (0.01-0.20) K/uL Sodium 139 (136-145) mmol/L Potassium 5.0 5.3 H Chloride 111 H (98-107) mmol/L Carbon Dioxide 19 L (21-32) mmol/L Anion Gap 9 (3-11) BUN 78 H (6-23) mg/dl Creatinine 4.37 H D (0.6-1.4) mg/dl Est Cr Clr Drug Dosing 21.1 ml/min Est GFR ( Amer) 16.0 ml/min Est GFR (Non-Af Amer) 13.8 ml/min BUN/Creatinine Ratio 17.8 (10-20) Glucose 123 H (70-99(Fasting)) mg/dl Estimat Average Glucose 180 mg/dl Hemoglobin A1c 7.9 H (4.5-5.6) % Calcium 9.3 (8.6-10.3) mg/dl Magnesium 1.8 (1.7-2.4) mg/dl Total Bilirubin (0.2-1.0) mg/dl AST 17 ALT (7-52) U/L Alkaline Phosphatase (34-104) U/L Total Protein (6.0-8.3) gm/dl Albumin (3.4-5.0) gm/dl Globulin (2.5-4.0) gm/dl Albumin/Globulin Ratio (0.9-2) Urine Color Yellow Urine Appearance Clear (Clear) Urine pH 5.5 (4.5-7.5) Ur Specific [place] 1.017 (1.000-1.030) Urine Protein 3+ H (Negative) Urine Glucose (UA) 3+ H (Negative) Urine Ketones Negative (Negative) Urine Blood Negative (Negative) Urine Nitrite Negative (Negative) Urine Bilirubin Negative (Negative) Urine Urobilinogen Negative (Negative) Ur Leukocyte Esterase Negative (Negative) Urine WBC (Auto) 0-5 (0-5) /hpf Urine RBC (Auto) 0-2 (0-2) /hpf U Hyaline Cast (Auto) 0-2 (0-2) /lpf U Epithel Cells (Auto) 0-2 (0-2) /hpf Urine Bacteria (Auto) None Seen (None Seen) Ethyl Alcohol mg/dL (<10.0) mg/dl 07/12/23 Range/Units 17:34 WBC 5.65 (4.8-10.8) K/ul RBC 3.58 L (4.70-6.10) M/uL Hgb 10.2 L (14.0-18.0) g/dl Hct 30.8 L (42.0-52.0) % MCV 86.0 (80.0-100.0) fL MCH 28.5 (25.0-34.0) pg MCHC 33.1 (32.0-36.0) g/dL RDW Std Deviation 40.8 (36.4-46.3) fL RDW Coeff of Alberto 13.0 (11.5-14.5) % Plt Count 236 (130-400) K/uL MPV 10.5 (9.4-12.4) fL Immature Gran % (Auto) 0.2 % Neut % (Auto) 51.0 % Lymph % (Auto) 33.1 % [place] % (Auto) 13.1 % Eos % (Auto) 1.9 % Baso % (Auto) 0.7 % Neut # (Auto) 2.88 (1.40-6.50) K/uL Lymph # (Auto) 1.87 (1.20-3.40) K/uL [place] # (Auto) 0.74 H (0.11-0.59) K/uL Eos # (Auto) 0.11 (0.00-0.50) K/uL Baso # (Auto) 0.04 (0.00-0.20) K/uL Immature Gran # (Auto) 0.01 (0.01-0.20) K/uL Sodium 137 (136-145) mmol/L Potassium TNP Chloride 107 (98-107) mmol/L Carbon Dioxide 19 L (21-32) mmol/L Anion Gap 11 (3-11) BUN 85 H (6-23) mg/dl Creatinine 4.70 H* (0.6-1.4) mg/dl Est Cr Clr Drug Dosing 19.7 ml/min Est GFR ( Amer) 14.6 ml/min Est GFR (Non-Af Amer) 12.6 ml/min BUN/Creatinine Ratio 18.1 (10-20) Glucose 158 H (70-99(Fasting)) mg/dl Estimat Average Glucose mg/dl Hemoglobin A1c (4.5-5.6) % Calcium 8.9 (8.6-10.3) mg/dl Magnesium 1.9 (1.7-2.4) mg/dl Total Bilirubin 0.3 (0.2-1.0) mg/dl AST TNP ALT 13 (7-52) U/L Alkaline Phosphatase 119 H (34-104) U/L Total Protein 7.4 (6.0-8.3) gm/dl Albumin 3.8 (3.4-5.0) gm/dl Globulin 3.6 (2.5-4.0) gm/dl Albumin/Globulin Ratio 1.1 (0.9-2) Urine Color Urine Appearance (Clear) Urine pH (4.5-7.5) Ur Specific [place] (1.000-1.030) Urine Protein (Negative) Urine Glucose (UA) (Negative) Urine Ketones (Negative) Urine Blood (Negative) Urine Nitrite (Negative) Urine Bilirubin (Negative) Urine Urobilinogen (Negative) Ur Leukocyte Esterase (Negative) Urine WBC (Auto) (0-5) /hpf Urine RBC (Auto) (0-2) /hpf U Hyaline Cast (Auto) (0-2) /lpf U Epithel Cells (Auto) (0-2) /hpf Urine Bacteria (Auto) (None Seen) Ethyl Alcohol mg/dL < 10.0 (<10.0) mg/dl Medications Administered Current Inpatient Medications Acetaminophen (Acetaminophen 325 Mg Tab) 650 mg PO Q4H PRN PRN Reason: Pain or Fever Stop: 08/11/23 22:56 Aspirin (Aspirin 81 Mg Ectab) 81 mg PO BID LUCINDA Stop: 08/12/23 08:59 Atorvastatin Calcium (Atorvastatin 40 Mg Tab) 80 mg PO HS LUCINDA Stop: 08/12/23 20:59 Dextrose (Dextrose 50% 50 Ml Syringe) 25 - 50 ml IV UD PRN; Protocol PRN Reason: Hypoglycemia Protocol Stop: 08/11/23 22:56 Duloxetine HCl (Duloxetine Hcl 30 Mg Cap) 30 mg PO DAILY LUCINDA Stop: 08/12/23 08:59 Folic Acid (Folic Acid 1 Mg Tab) 1 mg PO DAILY LUCINDA Stop: 08/12/23 08:59 Glucagon (Glucagon For Inj 1 Mg Vial) 1 mg SQ UD PRN; Protocol PRN Reason: Hypoglycemia Protocol Stop: 08/11/23 22:56 Glucose (Glucose 10 Tab/Tube) 4 - 8 tab PO UD PRN; Protocol PRN Reason: Hypoglycemia Treatment Stop: 08/11/23 22:56 Glucose (Glucose 40% Gel 15 Gm Tube) 15 - 30 gm PO UD PRN; Protocol PRN Reason: Hypoglycemia Protocol Stop: 08/11/23 22:56 Heparin Sodium (Porcine) (Heparin Sod 5,000 Unit/0.5 Ml Vial) 5,000 units SQ Q8 LUCINDA Stop: 08/11/23 22:56 Last Admin: 07/13/23 01:27 Dose: 5,000 units Insulin Aspart (Insulin Aspart Per Unit Charge) 0 units SC ACHS LUCINDA Stop: 08/12/23 07:29 Insulin Glargine (Lantus Per Unit Charge) 16 units SQ DAILY LUCINDA Stop: 08/12/23 08:59 Lactobacillus Acidophilus (Advanced Probiotic 625 Mg Capsule) 1,250 mg PO DAILY LUCINDA Stop: 08/12/23 08:59 Loratadine (Loratadine 10 Mg Tab) 10 mg PO DAILY LUCINDA Stop: 08/12/23 08:59 Miscellaneous (Carbohydrates For Hypoglycemia ) 15 - 30 gm PO UD PRN PRN Reason: Hypoglycemia Protocol Stop: 08/11/23 22:56 Miscellaneous (Remove Nicoderm Patch) 1 each N/A DAILY@0859 LUCINDA Stop: 08/12/23 08:58 Multivitamins/Minerals (Cerovite Adv Formula Tab) 1 tab PO DAILY LUCINDA Stop: 08/12/23 08:59 Nicotine (Nicotine 21 Mg/24 Hr Tdsy) 1 patch TD QAM LUCINDA Stop: 08/12/23 08:59 Nifedipine (Nifedipine Extended Rel 30 Mg Tabcr) 60 mg PO DAILY LUCINDA Stop: 08/12/23 08:59 Nitroglycerin (Nitroglycerin Sl 0.4 Mg/Tab Tab) 0.4 mg SL Q5M PRN PRN Reason: Chest Pain Stop: 08/11/23 22:56 Pantoprazole Sodium (Pantoprazole 40 Mg Tab) 40 mg PO DAILY LUCINDA Stop: 08/12/23 08:59 Polyethylene Glycol (Polyethylene (Miralax) 17 Gm Pack) 17 gm PO DAILY PRN PRN Reason: Constipation Stop: 08/11/23 22:56 Vitamin D (Cholecalciferol 25 Mcg (1000 Units) Tab) 100 mcg PO DAILY LUCINDA Stop: 08/12/23 08:59
[2023-07-13] MEDS: NIFEdipine EXTENDED REL 30 MG TABCR PO SCH (09:04)
[2023-07-13] MEDS: CEROVITE ADV FORMULA TAB PO SCH (09:04)
[2023-07-13] MEDS: PANTOprazole 40 MG TAB PO SCH (09:05)
[2023-07-13] MEDS: DULoxetine HCL 30 MG CAP PO SCH (09:06)
[2023-07-13] MEDS: ADVANCED PROBIOTIC 625 MG CAPSULE PO SCH (09:06)
[2023-07-13] MEDS: FOLIC ACID 1 MG TAB PO SCH (09:06)
[2023-07-13] MEDS: LORATADINE 10 MG TAB PO SCH (09:07)
[2023-07-13] MEDS: ASPIRIN 81 MG ECTAB PO SCH (09:08)
[2023-07-13] MEDS: CHOLECALCIFEROL 25 MCG (1000 UNITS) TAB PO SCH (09:08)
[2023-07-13] MEDS: NICOTINE 21 MG/24 HR TDSY TD SCH (09:16)
[2023-07-13] MEDS: INSULIN ASPART PER UNIT CHARGE SC SCH (10:21)
[2023-07-13] MEDS: LANTUS PER UNIT CHARGE SQ SCH (10:27)
--- NOTE | 2023-07-13 12:30 | Nephrology Consultation ---
Date of Consultation July 13, 2023 Assessment & Plan (1) ONDINA (acute kidney injury): favor ONDINA dx given some improvement in renal function w holding jardiance. ? if he is maintaining adequate po intake on this medication. UA w/ 3+ protein, glucose and no ketones; sg 1017 >trial of 1/2 NS w/ 50 mEQ sodium bicarb / L at 80 mL hourly >cont to hold jardiance >focus on BP control > cont OP nifedipine, start coreg 6.25 mg bid; consider standing hydralazine but for now wrote po prn; would avoid diuretics for moment given ONDINA >agree w/ low K, carb consistent diet for now -strict I/O, daily bmp -no indication for emergent dialysis > plan to optimize renal function best we can and then d/c for close OP f/u Care coordinated Dr Munoz re trial of IVF and antihypertensives, medication adjustments and we are in agreement. (2) CKD (chronic kidney disease) stage 4, GFR 15-29 ml/min: rapidly progressive CKD, high risk for ESRD. was CKD 3B per my late March note on review of [facility] [place]; but progressing CKD 4 at least since march. -continue supportive care >> will need to begin aggressive ESRD planning more than likely after d/c; not likely a home candidate given his tenuous psychosocial situation > refer to vascular for OP AVF eval History of Present Illness Reason for Consultation: ONDINA Requesting Physician: Dr Payne Attending Physician: Germain Munoz MD History of Present Illness 58 y/o M whom I'm asked to see for ONDINA was admitted overnight after PCP sent him to ER for abnormal labs with worsening renal function. PMH includes DM since age 24 on insulin, HTN also since early 30s and w/ hx of urgency, CKD3B/4 w/ nephrotic range proteinuria, CAD s/p 2019 stent and w/ transient mild ischemic [employer], history of EtOH abuse c/b withdrawal seizures and serial rehab, hx severe fatty liver/EtOH hepatitis, active 2PPD tobacco abuse, CATALINO not on cpap, cognitive impairment, L hip fracture after 10/2022 fall while homeless, hx chronic homelessness and food insecurity. Hospitalized in [facility] 03/03-2022 w/ DKA, ear infection, frostbite and A1c 18.3% per report. Currently living w/ his sister. Endorses sobriety since at least February (?December) and attends AA meetings. His sister does his meds; he's not sure what he has / has not been taking. [facility] shows he was on jardiance from early 2021 through 08/2022; he didn't always have his meds consistently but started back taking it consistently again in March 2023 after endocrine resumed it. Renal function worsened in 2023 > w/ creatinine 3.2 in March up from lower 2's (after resuming jardiance); then 5.4 on 06/26, improved to 4.6 and 4.7 on recheck 07/04 and 07/10. BUN trended up from 60>87 same timeframe and bicarb dropped 20 > 17; sodium slight down trend to 133 at lowest. BG range 100-180's. Plan had been for sooner bmp after March tests but orders not placed so no labs until June. Renal u/s unremarkable. He was to bring all his pill bottles to appt on 07/11 but sent here instead after labs showed no improvement. it has been challenging to get OP labs and any consistent hx. His presenting creat was 4.7, down to 4.4 today. BUN was 85 > 78. bicarb 19. On admission, his jardiance was held; has had SBP in 170-190s w/o chest pain , sob, palpitations > had one dose of prn hydralazine and nifedipine continued. no record of IVF given in ER. Pt denies recent acute illness, n/v/d/c/abd pain, no edema, no new/worrisome voiding sx including no gross hematuria; no rash but endorses dry skin. Ongoing L hip pain > states he only takes meds his sister prepares for him so no nsaids, though he doesn't know for sure. he denies rash but does endorse dry skin. Allergies Allergy/AdvReac Type Severity Reaction Status Date / Time pollen extracts Allergy Intermediate SNEEZING, Verified 07/12/23 20:39 CONGESTION Home Medications Medication Instructions Recorded Confirmed Type atorvastatin 80 mg tablet 80 mg PO HS 10/25/21 07/12/23 History nitroglycerin 0.4 mg sublingual 0.4 mg sublingual DIRECTED PRN 09/23/22 07/12/23 History tablet Chest Pain aspirin 81 mg tablet,delayed 81 mg PO BID #60 tabs 11/15/22 07/12/23 Rx release duloxetine 30 mg capsule,delayed 30 mg PO DAILY 03/27/23 07/12/23 History release empagliflozin 10 mg tablet 10 mg PO DAILY #30 tabs 03/27/23 07/12/23 Rx insulin lispro 100 unit/mL 5 unit (0.05 mL) subcut TID #15 mL 03/27/23 07/12/23 Rx subcutaneous pen (Humalog KwikPen (U-100) Insulin) [id number] 120 mcg-lutein 1 tab PO DAILY 03/27/23 07/12/23 History 150 mcg-herb 50 mg chewable tablet (Alive Men's 50 Plus Multivitamin) nifedipine 60 mg tablet,extended 60 mg PO DAILY 03/27/23 07/12/23 History release pantoprazole 40 mg tablet,delayed 40 mg PO DAILY 03/27/23 07/12/23 History release Lantus Solostar U-100 Insulin 100 16 unit (0.16 mL) subcut DAILY #15 03/29/23 07/12/23 Rx unit/mL (3 mL) subcutaneous pen mL (insulin glargine) blood-glucose sensor (Dexcom G7 #3 ea 04/18/23 07/12/23 Rx Sensor device) pen needle, diabetic 32 gauge x #150 ea 04/18/23 07/12/23 Rx 5/32" (BD Arpita 2nd Gen Pen Needle) cholecalciferol (vitamin D3) 50 100 mcg PO DAILY 06/27/23 07/12/23 History mcg (2,000 unit) capsule citalopram 10 mg tablet (Celexa) 0 mg PO DAILY 07/12/23 07/12/23 History desloratadine 5 mg tablet 5 mg PO DAILY 07/12/23 07/12/23 History folic acid 1 mg tablet 1 mg PO DAILY 07/12/23 07/12/23 History lactobacillus combination no.4 3 3,000 mmu cells PO DAILY 07/12/23 07/12/23 History billion cell capsule (Probiotic) Patient History Medical History (Updated 07/13/23 @ 12:29 by Amber Cornell MD, PhD) CKD (chronic kidney disease) stage 4, GFR 15-29 ml/min Encounter for pre-operative examination ONDINA (acute kidney injury) Alcohol use disorder, severe, dependence Alcohol withdrawal syndrome CATALINO (obstructive sleep apnea) Chronic anemia Proteinuria Bilateral edema of lower extremity TONEY (dyspnea on exertion) Discharge planning issues Smoking Diabetes mellitus type 2 with complications Ischemic cardiomyopathy DVT prophylaxis Hypomagnesemia Alcohol abuse Mood disorder Obesity NSTEMI (non-ST elevated myocardial infarction) Tobacco use disorder Neuropathy Type 2 diabetes mellitus HTN (hypertension) Surgical History History of cardiac catheterization 1 ELIESER to proximal OM by Dr. Guerrero on 01/01/19 History of lymph node biopsy Family History Other Diabetes Heart disease Hypertension Social History Smoking Status: Current every day smoker Tobacco Type: Cigarettes Cigarettes Per Day: 1/2 pack a day; Second Hand Exposure: No; Do You Dip or Chew Tobacco: No; Hx Alcohol Use: No Hx Substance Use: No Preferred Language: Urdu Communication Ability: Effective Instruction Assistant Principal Required: No Beliefs That Will Affect Care: None marital status: Single Current Living Situation: Alone Current Living Situation Comment: Living in car current occupational status: unemployed How many Children do You have: 2 Feels Safe at Home: Yes Safety Concerns: Feels Safe At This Time Assistive Devices: None Review of Systems 2 Review of Systems: All systems reviewed & are unremarkable except as noted in HPI & below Physical Exam 2 Constitutional: well developed and well nourished Eyes: EOM intact bilaterally ENMT: Ears: no external ear abnormality Nose: no external nose abnormality Mouth: + dry oral mucous membranes Neck: no nuchal rigidity Respiratory: normal respiratory effort Auscultation: + diminished lung sounds Gastrointestinal (Abdomen): Inspection/Auscultation: normal bowel sounds P ercussion/Palpation: abdomen soft; abdomen nontender Musculoskeletal: Extremities: strength 5/5 throughout Skin: no rashes, warm and dry Neurologic: maza, fluent speech, no tremor Results & Data Vital Signs (Past 12 Hours) Vital Signs Temp Pulse Pulse Resp BP BP Pulse Ox 07/13/23 12:19 36.8 C 83 20 182/111 H 98 07/13/23 08:50 36.8 C 81 20 179/106 H 95 07/13/23 08:32 179/106 H 07/13/23 08:32 79 12 99 07/13/23 08:00 78 14 98 07/13/23 07:35 82 07/13/23 07:00 79 19 99 07/13/23 06:00 79 18 97 07/13/23 05:00 79 12 96 07/13/23 04:00 84 18 97 07/13/23 03:00 84 19 94 07/13/23 02:05 79 14 99 07/13/23 01:30 172/84 H 07/13/23 01:30 76 17 98 07/13/23 01:01 78 18 96 07/13/23 01:01 167/100 H 07/13/23 01:00 77 15 96 07/13/23 00:35 79 19 99 07/13/23 00:30 170/100 H 07/13/23 00:30 80 24 98 O2 Del Method 07/13/23 12:19 Room Air 07/13/23 08:50 Room Air 07/13/23 08:32 07/13/23 08:32 07/13/23 08:00 07/13/23 07:35 07/13/23 07:00 07/13/23 06:00 07/13/23 05:00 07/13/23 04:00 07/13/23 03:00 07/13/23 02:05 07/13/23 01:30 07/13/23 01:30 07/13/23 01:01 07/13/23 01:01 07/13/23 01:00 07/13/23 00:35 Room Air 07/13/23 00:30 07/13/23 00:30 Laboratory Results 07/13/23 06:00 07/13/23 06:00 Diagnostic Findings cxr no active CP disease renal u/s wnl
[2023-07-13] MEDS: hydrALAZINE HCL 20 MG/ML VIAL IV ONE (12:36)
--- NOTE | 2023-07-13 15:45 | Electrocardiogram Report ---
Test Reason : Blood Pressure : / mmHG Vent. Rate : 076 BPM Atrial Rate : 076 BPM P-R Int : 196 ms QRS Dur : 088 ms QT Int : 418 ms P-R-T Axes : 051 -07 079 degrees QTc Int : 470 ms Sinus rhythm with Premature atrial complexes Otherwise normal ECG When compared with ECG of 14-MAR-2023 19:53, Premature atrial complexes are now Present Confirmed by Maurice Caldwell ([id number]) on 07/13/2023 3:45:42 PM Referred By: Charity Reed Confirmed By:Maurice Caldwell
--- OUTSIDE RECORDS SUMMARY | 2023-07-13 16:12 | External Medical Summary ---
Author Name Unknown Address Unknown Organization [id number]:[facility] - [address] [place] [id number] Laboratory Report Ordering Provider Test Date Status DAWOOD MONTGOMERY 07/11/2023 15:29:11 Final Observation Date Value Abnormality Reference (Units ) Status MYCODE SPECIMEN-SST 07/11/2023 15:29:11 Freezing of extracted DNA, whole blood and/or serum. Final Performing Location [facility] [place] - [address] [place] [id number]
--- OUTSIDE RECORDS SUMMARY | 2023-07-13 16:12 | External Medical Summary | Summary of Care ---
Author Name Unknown Organization [facility] Address [address] [place] [address] Phone [phone] Care Team Providers Care Proprietary Trader Name Role Phone Charity Reed MD Primary Care Provider [phone] Reason for Visit * Reason Comments Outpatient Testing Encounter Details Date Type Department Care Team (Late st Contact Info) Description 07/11/2023 3:20 PM EDT Laboratory Laboratory, [place] [address] [place] [address] [place] [address] [place] [address] [facility] Other*[id number]; Type 2 diabetes mellitus with stage 4 chronic kidney disease, with long-term current use of insulin (HCC) Allergies Active Allergy Reactions Criticality Noted Date Comments Pollen 05/17/2021 documented as of this encounter (statuses as of 07/11/2023) Medications Medication Sig Dispensed Refills Start Date End Date Status OneTouch Ultra Blue In Vitro Strip (Glucose Blood)Indications:D iabetic polyneuropathy associated with type 2 diabetes mellitus (HCC),DM type 2, not at goal (HCC) Use as directed 4 times a day as needed for Other (test blood sugars up to 4 times daily). Use up to four times a day as directed 100 Strip 11 05/17/2021 Active Folic Acid 1 MG Oral TabletIndications:A lcohol use disorder, severe, dependence (HCC) Take 1 Tablet (1 mg) by mouth in the morning. 90 Tablet 3 02/25/2022 Active OneTouch Delica Lancets 33G Use to test sugars upto 2 times daily 100 Each 3 05/02/2022 Active OneTouch Verio In Vitro Strip (Glucose Blood) Use to test sugars upto 2 timesdaily 100 Strip 3 05/02/2022 Active Acetaminophen 325 MG Oral Tablet (Tylenol) 2 Tablets. 0 05/30/2022 Active Aspirin 81 MG Oral Tablet Delayed ReleaseIndications: S/p left hip fracture,S/P total left hip arthroplasty,Hospit al discharge follow-up,Ischemic cardiomyopathy,Type 2 diabetes mellitus with stage 3a chronic kidney disease, with long-term current use of insulin ([facility]) Take 1 Tablet by mouth in the morning and 1 Tablet in the evening. Sp left THR for fracture 11/12/22. 0 11/29/2022 Active Empagliflozin 10 MG Oral Tablet (Jardiance)Indicati ons:History of diabetic ketoacidosis,Type 2 diabetes mellitus with stage 3b chronic kidney disease, without long-term current use of insulin ([facility]) Take 1 Tablet by mouth in the morning. Restart 03/22/2023. 30 Tablet 2 03/22/2023 Active Multi-Vitamins Oral Tablet Take 1 Tablet by mouth in the morning. 0 Active Tamsulosin HCl 0.4 MG Oral Capsule (Flomax) Take 1 Capsule by mouth in the morning. 0 Active Lantus SoloStar 100 UNIT/ML Subcutaneous Solution Pen-injectorIndicat ions:Hypoglycemia,H ospital discharge follow-up,Type 2 diabetes mellitus with stage 3b chronic kidney disease, without long-term current use of insulin ([facility]),Labile blood glucose INJECT 16 UNITS SUBCUTANEOUSLY ONCE DAILY 6 mL 0 03/24/2023 Active Insulin Aspart 100 UNIT/ML Injection Solution (NovoLOG)Indication s:History of diabetic ketoacidosis,Hospit al discharge follow-up,Type 2 diabetes mellitus with stage 3b chronic kidney disease, without long-term current use of insulin ([facility]) Using 5 units if sugar >300 0 03/26/2023 Active Sodium Bicarbonate 650 MG Oral Tablet Take 1 Tablet by mouth in the morning and 1 Tablet before bedtime. 120 Tablet 11 04/13/2023 Active Vitamin D3/PCB 4000 UNITS Oral Capsule (STUDY MED) Take 1 Capsule by mouth in the morning. 0 Active DULoxetine HCl 30 MG Oral Capsule Delayed Release Particles (Cymbalta)Indicatio ns:Type 2 diabetes mellitus with stage 3a chronic kidney disease, with long-term current use of insulin (HCC),History of substance abuse (HCC),Alcohol use disorder, severe, dependence (HCC),Polyneuropath y, unspecified Take 1 capsule by mouth in the morning 90 Capsule 3 06/09/2023 Active Pantoprazole Sodium 40 MG Oral Tablet Delayed Release (Protonix)Indicatio ns:Gastroesophageal reflux disease with esophagitis without hemorrhage TAKE 1 TABLET BY MOUTH IN THE MORNING 90 Tablet 1 07/06/2023 Active Atorvastatin Calcium 80 MG Oral Tablet (Lipitor)Indication s:Type 2 diabetes mellitus with stage 3a chronic kidney disease, with long-term current use of insulin (HCC),Ischemic cardiomyopathy TAKE 1 TABLET BY MOUTH IN THE MORNING 90 Tablet 3 07/06/2023 Active NIFEdipine ER 60 MG Oral Tablet Extended Release 24 Hour (Adalat CC)Indications:HTN, goal below 140/80 TAKE 1 TABLET BY MOUTH IN THE MORNING 90 Tablet 2 07/07/2023 Active documented as of this encounter (statuses as of 07/11/2023) Active Problems Problem Noted Date Diagnosed Date Food insecurity 05/01/2023 Overview: Per [facility] Protocol MCI (mild cognitive impairment) 04/18/2023 Overview: Neuro eval 04/12 High serum parathyroid hormone (PTH) 04/16/2023 Vitamin D deficiency 03/26/2023 Chronic kidney disease, stage 3b 05/02/2022 Overview: Per CKD protocol Type 2 diabetes mellitus wit h stage 4 chronic kidney disease, with long-term current use of insulin 05/02/2022 Overview: Per CKD protocol Hx of actinic keratosis 04/25/2022 Polyneuropathy, unspecified 10/22/2021 History of substance abuse 10/22/2021 Pulmonary emphysema 10/22/2021 Hypertensive heart and chron ic kidney disease with heart failure and stage 1 through stage 4 chronic kidney disease, or chronic kidney disease 10/22/2021 History of nonmelanoma skin cancer 10/08/2021 Overview: Hx SCCIS L upper arm 2020 Persistent proteinuria 10/08/2021 Bilateral leg edema 10/08/2021 Coronary artery disease invo lving [place] coronary artery of [place] heart without angina pectoris 03/26/2020 Anemia 02/14/2020 Fatty liver 02/14/2020 Abnormal AST and ALT 02/14/2020 Hx of colonic polyp 01/06/2020 Overview: 01/06- Alcohol use disorder, severe, dependence 020 HTN, goal below 140/80 04/26/2019 Ischemic cardiomyopathy 04/26/2019 Tobacco use disorder 05/01/2015 Depression, major, recurrent 03/24/2014 Generalized anxiety disorder 03/24/2014 Obstructive sleep apnea of adult 12/23/2013 Dyslipidemia, goal LDL below 70 documented as of this encounter (statuses as of 07/11/2023) Resolved Problems Problem Noted Date Diagnosed Date Resolved Date Chronic kidney disease, stage 3a 03/28/2022 05/04/2022 Overview: Per CKD protocol Type 2 diabetes mellitus wit h stage 3a chronic kidney disease, with long-term current use of insulin 02/28/2022 05/04/2022 Overview: Per CKD protocol Other emphysema 02/14/2020 02/25/2022 Overview: Mild COPD on PFT 06/07 Type 2 diabetes mellitus wit h stage 3 chronic kidney disease, with long-term current use of insulin 10/30/2019 03/03/2022 Overview: Per CKD protocol History of alcohol abuse 04/26/2019 Severe episode of recurrent major depressive disorder, without psychotic features 12/21/201609/2019 Diabetic polyneuropathy asso ciated with type 2 diabetes mellitus 08/10/2016 04/26/2019 DM type 2, not at goal 08/10/201602/25 DM type 2, not at goal 05/11/201608/10 Body mass index 38.0-38.9, adult 05/01/2015 08/10/2016 Overview: bmi- 38.43 05/01/15 Screening for prostate cancer 05/01/2015 08/10/2016 Hypertension goal BP (blood pressure) < 140/80 03/24/2014 06/25/2015 Asthma 03/24/2014 06/17/2015 Lumbago 03/24/2014 09/13/2016 Type 2 diabetes, HbA1C goal < 8% 12/23/2013 05/01/2015 Obesity, morbid (more than 1 00 lbs over ideal weight or BMI > 40) 12/23/2013 08/10/2016 Alcohol dependence in remission 12/23/2013 12/21/2016 Mixed dyslipidemia 12/23/2013 0 HTN, goal below 140/90 04/26 High triglycerides 7 Type 2 diabetes mellitus wit h hemoglobin A1c goal of less than 7.0% 06/17/2015 Overview: ICD-10 update of inactive term documented as of this encounter (statuses as of 07/11/2023) Immunizations Name Administration Dates Next Due COVID-19 mRNA, LNP-s, No Pre serve, 2-Dose Series (Xenon Arc) 06/24/2020,06/01/2020 Pneumococcal Conjugate Vacci ne, 20-valent ([id number]) 02/25/2022 Pneumococcal Polysaccharide PPV23 (Pneumovax) 06/21/2021,04/26/2019 Seasonal Influenza Virus Vac cine, Unspecified Formulation 12/23/2020 Seasonal Influenza, PF, 6 M & above, IM , (FluLaval or Fluzone) 04/26/2023,11/29/2022,02/25/2022,12/23,01/30/2020,12/20/2017 TDAP (age 10 and older)(Boostrix) 08/05/2016, Zoster Vaccine Recombinant (Shingrix) 07/15/2020 ,01/30/2020 documented as of this encounter Social History Tobacco Use Types Packs/Day Years Used Date Smoking Tobacco: Every Day Cigarettes 2 40 Smokeless Tobacco: Never Comments:11/27/20 currently smoking 1 ppd Alcohol Use Standard Drinks/Week Comments Not Currently 0 (1 standard drink = 0.6 oz pure alcohol) Pt says his an alcoholic; he drinks 3 gallons of vodka per week PHQ-2 Answer Date Recorded PHQ Adult Total Score 11 05/08/2023 Hunger Vital Sign Answer Date Recorded Within the past 12 months, y ou worried that your food would run out before you got the money to buy more. Sometimes true Within the past 12 months, t he food you bought just didn't last and you didn't have money to get more. Sometimes true 01/2024 Sex and Gender Information Value Date Recorded Sex Assigned at Male 10/21/2019 12:29 PM EDT Gender Identity Male 10/21/2019 12:29 PM EDT Sexual Orientation Straight 04/26/2019 2: 22 PM EST Job Start Date Occupation Industry Not on file Not on file Not on file documented as of this encounter Plan of Treatment Upcoming Encounters Date Type Department Care Team (Late st Contact Info) Description 07/12/2023 10:20 AM EDT Office Visit General Internal Medicine [facility] [place] [address] [place] [address] Charity Reed MD [address] [place] [address] 07/13/2023 2:30 PM EDT Office Visit Nephrology, [facility] [address] [place] [address] ZeKim trinidad PA-C [address] [place] [address] 07/17/2023 1:00 PM EDT Office Visit Neurology [facility] [place] [address] [place] [address] Ruchi Jason MD [address] [place] [address] 12/20/2023 8:30 AM EDT Therapy Neuropsychology [facility] [place] [address] [place] [address] Randell Grimes, PhD [address] [place], [place] [address] 02/19/2024 3:00 PM EST Office Visit Nephrology, [facility] [address] [place], [place] [address] Amber Cornell MD 200 [facility] [place], [place] [address] 05/23/2024 1:20 PM EST Office Visit Dermatology [facility] [address] [place], [place] [address] Alix Rajan PA-C [address] [facility] [place] [address] Pending Results Name Type Priority Associated Diagnoses Date /Time MYCODE SUBSEQUENT ADULT Lab Routine [facility] Other*[id number] 07/11/2023 3:29 PM EDT BASIC METABOLIC PANEL Lab STAT Type 2 diabetes mellitus with stage 4 chronic kidney disease, with long-term current use of insulin (HCC) 07/11/2023 3:29 PM EDT MYCODE SST1 Lab Routine [facility] Other*[id number] 07/11/2023 3:29 PM EDT MYCODE SST2 Lab Routine [facility] Other*[id number] 07/11/2023 3:29 PM EDT Scheduled Procedures Name Priority Associated Diagnoses Date/Ti me COLONOSCOPY FLEXIBLE PROXIMAL DIAGNOSTIC Recall History of colon polyps Health Maintenance Due Date Last Done Comments HIV Screening 06/17/1979 Alpha-1 Antitrypsin 1982 DISCUSS TOBACCO CESSATION (REFER TO SMARTSET #3291) 05/01/2016 05/01/2015 (Discussed) Diabetic Eye Exam 04/26/2020 04/26/2019, 08/18/2017 Diabetic Foot Exam 12/23/2021 12/23/2020, 1 03/31/2019, 04/26/2019, Additional history exists Albumin/Creatinine Ratio 05/17/2022 022, 03/18/2020, 07/05/2016, Additional history exists COVID-19 Vaccine ( season) 2022 06/24/2020, 06/01/2020 COLONOSCOPY-EVERY 3 YRS AGES 18-100 01/05/2023 01/06/2020, 01/06/2020 Depression, Most Recent Score >= 10 (will fire each visit until score < 10) 05/09/2023 05/08/2023 HbA1c 12/27/2023 06/27/2023, 03/20, 08/22/2022, Additional history exists GFR 01/04/2024 07/05/2023, 040 11/2023, 04/07/2023, Additional history exists O2 ASSESSMENT COMPLETED IN PAST YEAR FOR COPD 04/13/2024 04/13/2023 DTaP,Tdap,and Td Vaccines (3 - Td or Tdap) 08/05/2026 08/05/2016, 08/05/2016 Lung Cancer Screening Completed 01/16/2020 Zoster Vaccines Completed 07/15/2020, 01/30/2020 Pneumococcal Vaccine: Pediatrics (0 to 5 Years) and At-Risk Patients (6 to 64 Years) Completed 02/25/2022, 06/21/2021, 04/26/2019 Influenza Vaccine (FLU shot) Completed 09/2023, 11/29/2022, 02/25/2022, Additional history exists GARDASIL-HPV IMMUNIZATION SERIES Aged Out No longer eligible based on patient's age to complete this topic MENINGOCOCCAL (MENACTRA/MENVEO) Aged Out No longer eligible based on patient's age to complete this topic documented as of this encounter Medical Devices Not on filedocumented as of this encounter Visit Diagnoses Diagnosis [facility] Other*[id number] Type 2 diabetes mellitus with stage 4 chronic kidney disease, with long-term current use of insulin (HCC) documented in this encounter Advance Directives Healthcare Agents on File Name Relationship Healthcare Agent Relationship Communication Kavya Banks Other - (no specific identity) Health Care Legal Editor (appointed verbally by patient or by statute hierarchy) Care Teams Proprietary Trader Relationship Specialty Start Date End Date Charity Reed MD [address] [place] [address] PCP - General Internal Medicine 12/17/19 documented as of this encounter
--- OUTSIDE RECORDS SUMMARY | 2023-07-13 16:13 | External Medical Summary ---
Author Name Unknown Address Unknown Organization [id number]:[facility] [place] - [facility] [address] [place] [address] Laboratory Report Ordering Provider Test Date Status SHERWIN ENRIQUEZ 07/11/2023 15:29:11 Final Normal: <30 mg/g creatinine< br/>High: 30-300 mg/g creatinine
Very High: >300 mg/g creatinine
Nephrotic: >2200 mg/g creatinine Observation Date Value Abnormality Reference (Units ) Status Albumin, Urine 07/11/2023 15:29:11 361.53 (mg/dL) Final Creatinine, Urine 07/11/2023 15:29:11 86 (mg/dL) Final Albumin/Creatinine [Mass Ratio] in Urine 07/11/2023 15:29:11 4204 Above high normal <30 (mg/g Creat) Final Performing Location [facility] [place] - [facility] [place] [address]
--- OUTSIDE RECORDS SUMMARY | 2023-07-13 16:13 | External Medical Summary | Summary of Care ---
Author Name Unknown Organization [facility] Address [address] [place] [address] Phone [phone] Care Team Providers Care Blending Operator Name Role Phone Charity Reed MD Primary Care Provider Reason for Visit * Reason Onset Date Comments Advice 07/11/2023 Encounter Details Date Type Department Care Team (Late st Contact Info) Description 07/11/2023 Telephone General Internal Medicine [facility] [address] [place] [address] hCarity Reed MD [address] [place] [address] Advice Allergies Active Allergy Reactions Criticality Noted Date [...] disease, with long-term current use of insulin ([facility]) Take 1 Tablet by mouth in the morning and 1 Tablet in the evening. Sp left THR for fracture 11/12/22. 0 11/29/2022 Active Empagliflozin 10 MG Oral Tablet (Jardiance)Indicati ons:History of diabetic ketoacidosis,Type 2 diabetes mellitus with stage 3b chronic kidney disease, without long-term current use of insulin ([facility]) Take 1 Tablet by mouth in the [...] disease, without long-term current use of insulin ([facility]),Labile blood glucose INJECT 16 UNITS SUBCUTANEOUSLY ONCE DAILY 6 mL 0 03/24/2023 Active Insulin Aspart 100 UNIT/ML Injection Solution (NovoLOG)Indication s:History of diabetic ketoacidosis,Hospit al discharge follow-up,Type 2 diabetes mellitus with stage 3b chronic kidney disease, without long-term current use of insulin ([facility]) Using 5 units if sugar >300 0 [...] disease, with long-term current use of insulin ([facility]),Ischemic cardiomyopathy TAKE 1 TABLET BY MOUTH IN [...] edema 10/08/2021 Coronary artery disease invo lving [place] coronary artery of [place] heart without angina pectoris 03/26/2020 Anemia 02/14/2020 [...] mRNA, LNP-s, No Pre serve, 2-Dose Series (Pfizer) 06/24/2020,06/01/2020 Pneumococcal Conjugate Vacci ne, 20-valent ([id number]) 02/25/2022 Pneumococcal Polysaccharide PPV23 (Pneumovax) 06/21/2021,04/26/2019 Seasonal [...] on file documented as of this encounter Miscellaneous Notes * Telephone Encounter - Miya Lawrence MED ASSIST - 07/11/2023 11:12 AM EDT Spoke to pt's sister, aware and verbalized understanding. Will try to get him to lab today but stated she has to get out of work to get him here. * Telephone Encounter - Charity Reed MD - 07/11/2023 3:[address] have him repeat stat lab today for appt tomorrow., cc nephrology To bring in all pill bottles to appointment. documented in this encounter Plan of Treatment Upcoming Encounters Date Type Department Care Team (Late st Contact Info) Description 07/12/2023 10:20 AM EDT Office Visit General Internal Medicine [facility] [address] [place] [address] Charity Reed MD [address] [place] [address] 07/13/2023 2:30 PM EDT Office Visit Nephrology, [facility] [address] [id number] Kim Garcia PA-C 200 [facility] [place], [place] [id number] 07/17/2023 1:00 PM EDT Office Visit Neurology [facility] [address] [facility] [place] [id number] Ruchi Jaosn MD 200 [facility] [place] [address] 12/20/2023 8:30 AM EDT Therapy Neuropsychology [facility] [address] [facility] [place] [address] Randell Grimes, PhD [address] [facility] [place] [address] 02/19/2024 3:00 PM EST Office Visit Nephrology, [facility] [address] [facility] [place], [place] [id number] Amber Cornell MD [address] [facility] [place], [place] [id number] 05/23/2024 1:20 PM EST Office Visit Dermatology [facility] [address] [facility] [place], [place] [id number] Alix Rajan PA-C [address] [facility] [place] [address] Scheduled Orders Name Type Priority Associated Diagnoses Orde r Schedule BASIC METABOLIC PANEL Lab STAT Type 2 diabetes mellitus with stage 4 chronic kidney disease, with long-term current use of insulin (HCC) Expected: 07/11/2023 (Approximate), Expires: 07/10/2024 Scheduled Procedures Name Priority Associated Diagnoses Date/Ti [...] 03/18/2020, 07/05/2016, Additional history exists COVID-19 Vaccine (3 - 2022-24 season) 2022 06/24/2020, 06/01/2020 COLONOSCOPY-EVERY 3 YRS AGES 18-100 01/05/2023 01/06/2020, 01/06/2020 Depression, Most Recent Score >= 10 (will fire each visit until score < 10) 05/09/2023 05/08/2023 HbA1c 12/27/2023 06/27/2023, 03/20, 08/22/2022, Additional history exists GFR 01/04/2024 07/05/2023, 0411/2023, 04/07/2023, Additional history exists O2 ASSESSMENT COMPLETED [...] as of this encounter Visit Diagnoses Diagnosis Type 2 diabetes mellitus with stage 4 chronic kidney disease, with long-term current use of insulin (HCC)- Primary documented in this encounter Advance Directives Healthcare Agents on File Name Relationship Healthcare Agent Relationship Communication Kavya Schaffer - (no specific identity) Health Care Administrative Analyst (appointed verbally by patient or by statute hierarchy) Care Teams Blending Operator Relationship Specialty Start Date End Date Charity Reed MD [address] [place] [address], [place] [address] PCP - General Internal Medicine 12/17/19 documented as of this encounter
--- OUTSIDE RECORDS SUMMARY | 2023-07-13 16:13 | External Medical Summary | Summary of Care ---
Author Name Unknown Organization [facility] Address [address] [place] [address] Phone [phone] Care Team Providers Care Tuckpointer Name Role Phone Charity Reed MD Primary Care Provider Reason for Visit * Reason Onset Date Comments Test Results 07/06/2023 Encounter Details Date Type Department Care Team (Late st Contact Info) Description 07/06/2023 Telephone General Internal Medicine [facility] 200 [facility] [place] [address] Bina Alexander MD 200 [place] [address] Test Results Allergies Active Allergy Reactions Criticality Noted Date Comments Pollen 05/17/2021 documented as of this encounter (statuses as of 07/06/2023) Medications Medication Sig Dispensed Refills Start Date [...] disease, with long-term current use of insulin ([facility]) Take 1 Tablet by mouth in the morning and 1 Tablet in the evening. Sp left THR for fracture 11/12/22. 0 11/29/2022 Active Empagliflozin 10 MG Oral Tablet (Jardiance)Indicati ons:History of diabetic ketoacidosis,Type 2 diabetes mellitus with stage 3b chronic kidney disease, without long-term current use of insulin ([facility]) Take 1 Tablet by mouth in the [...] disease, without long-term current use of insulin ([facility]),Labile blood glucose INJECT 16 UNITS SUBCUTANEOUSLY ONCE DAILY 6 mL 0 03/24/2023 Active Insulin Aspart 100 UNIT/ML Injection Solution (NovoLOG)Indication s:History of diabetic ketoacidosis,Hospit al discharge follow-up,Type 2 diabetes mellitus with stage 3b chronic kidney disease, without long-term current use of insulin ([facility]) Using 5 units if sugar >300 0 03/26/2023 Active NIFEdipine ER 60 MG Oral Tablet Extended Release 24 Hour (Adalat CC)Indications:HTN, goal below 140/80 Take 1 Tablet by mouth in the morning. 90 Tablet 0 04/12/2023 Active Atorvastatin Calcium 80 MG Oral Tablet (Lipitor)Indication s:Type 2 diabetes mellitus with stage 3a chronic kidney disease, with long-term current use of insulin ([facility]),Ischemic cardiomyopathy Take 1 Tablet by mouth in the morning. 90 Tablet 0 04/12/2023 Active Sodium Bicarbonate 650 MG Oral Tablet [...] disease, with long-term current use of insulin ([facility]),History of substance abuse ([facility]),Alcohol use disorder, severe, dependence ([facility]),Polyneuropath y, unspecified Take 1 capsule by mouth in the morning 90 Capsule 3 06/09/2023 Active Pantoprazole Sodium 40 MG Oral Tablet Delayed Release (Protonix)Indicatio ns:Gastroesophageal reflux disease with esophagitis without hemorrhage TAKE 1 TABLET BY MOUTH IN THE MORNING 90 Tablet 1 07/06/2023 Active documented as of this encounter (statuses as of 07/06/2023) Active Problems Problem Noted Date Diagnosed Date [...] edema 10/08/2021 Coronary artery disease invo lving [place] coronary artery of [place] heart without angina pectoris 03/26/2020 Anemia 02/14/2020 [...] as of this encounter (statuses as of 07/06/2023) Resolved Problems Problem Noted Date Diagnosed Date [...] as of this encounter (statuses as of 07/06/2023) Immunizations Name Administration Dates Next Due COVID-19 mRNA, LNP-s, No Pre serve, 2-Dose Series (Pfizer) 06/24/2020,06/01/2020 Pneumococcal Conjugate Vacci ne, 20-valent ([id number]) 02/25/2022 Pneumococcal Polysaccharide PPV23 (Pneumovax) 06/21/2021,04/26/2019 Seasonal [...] encounter Miscellaneous Notes * Telephone Encounter - Bina Alexander MD - 07/06/2023 3:43 PM EDT Noted * Telephone Encounter - Reynaldo Reyes RN - 07/06/2023 12:54 PM EDT Images from the original note were not included. Called number on file and EC Kavya answered. She stated patient had a brain injury and she takes his calls. She has been made aware and verbalized understanding of the message. She stated she is unsure how much patient's oral intake is but will make it a point to push more fluids. He had diarrhea acouple of days ago, but it is now resolved. They plan to keep upcoming appointment with Dr Reed on 07/11. Provider to address: n/a Reason for Call: Test Results Contact: Telephone Call Contact Type: Test Results Outcome: See above Face to face time spent with Patient (minutes): 0 Total Time including non face to face (minutes): 10 Reynaldo Reyes RN BSN BRITTANY Primary Care Nurse Coordinator [facility] (Helping out) * Telephone Encounter - Reynaldo Reyes RN - 07/06/2023 12:51 PM EDT Images from the original note were not included. Bina Alexander MD 07/06/2023 12:49 PM EDT Back to Top Renal us normal with no blockage Also see below message Bina Alexander MD 07/06/2023 12:46 PM EDT Kidney function slightly better but still worse than his baseline Urine with no infection but seems a bit concentrated or dehydrated Check exactly how much fluid he is taking? Should be 50 oz/day . Any diarrhea or low appetite . Keep f/u appoint with Dr Reed and repeat BMP ( to be ordered ) Dr Kraig VEGA * Telephone Encounter - Reynaldo Reyes RN - 07/06/2023 12:51 PM EDT ----- Message from Bina Alexander MD sent at 07/06/2023 12:46 PM EDT ----- Kidney function slightly better but still worse than his baseline Urine with no infection but seems a bit concentrated or dehydrated Check exactly how much fluid he is taking? Should be 50 oz/day . Any diarrhea or low appetite . Keep f/u appoint with Dr Reed and repeat BMP ( to be ordered ) Dr Kraig VEGA documented in this encounter Plan of Treatment Upcoming Encounters Date Type Department Care Team (Late st Contact Info) Description 07/12/2023 10:20 AM EDT Office Visit General Internal Medicine [facility] [address] [facility] [place] [address] Charity Reed MD 200 [facility] [place] [address] 07/13/2023 2:30 PM EDT Office Visit Nephrology, [facility] [address] [place] [address] Kim Garcia PA-C 200 [facility] [place] [address] 07/17/2023 1:00 PM EDT Office Visit Neurology [facility] [address] [place] [address] Ruchi Jason MD 200 [facility] [place] [address] 12/20/2023 8:30 AM EDT Therapy Neuropsychology [facility] [address] [place] [address] Randell Grimes, PhD 200 [facility] [place] [address] 02/19/2024 3:00 PM EST Office Visit Nephrology, [facility] 200 [facility] [place] [phone] Amber Cornell MD 200 [facility] [place] [address] 05/23/2024 1:20 PM EST Office Visit Dermatology [facility] 200 [facility] [place] [address] Alix Rajan PA-C 200 [facility] [place] [address] Scheduled Procedures Name Priority Associated Diagnoses Date/Ti [...] Additional history exists COVID-19 Vaccine (3 - 2023-24 season) 2022 06/24/2020, 06/01/2020 COLONOSCOPY-EVERY 3 YRS AGES 18-100 01/05/2023 01/06/2020, 01/06/2020 Depression, Most Recent Score >= 10 (will fire each visit until score < 10) 05/09/2023 05/08/2023 HbA1c 12/27/2023 06/27/2023, 03/20, 08/22/2022, Additional history exists GFR 01/04/2024 07/05/2023, 04/0 11/2023, 04/07/2023, Additional history exists O2 ASSESSMENT [...] Not on filedocumented as of this encounter Advance Directives Healthcare Agents on File Name Relationship Healthcare Agent Relationship Communication Kavya Banks Other - (no specific identity) Health Care Chocolate Production Machine Operator (appointed verbally by patient or by statute hierarchy) Care Teams Tuckpointer Relationship Specialty Start Date End Date Charity Reed MD [address] [place] [address] PCP - General Internal Medicine 12/17/19 documented as of this encounter
--- OUTSIDE RECORDS SUMMARY | 2023-07-13 16:13 | External Medical Summary ---
Author Name Unknown Address Unknown Organization K01:LABORATORY [facility] - [facility] [address] [facility] [address] Laboratory Report Ordering Provider Test Date Status NATACHA DANIELLE 07/11/2023 15:29:11 Final Observation Date Value Abnormality Reference (Units ) Status BUN 07/11/2023 15:29:11 87 Above high normal 6-20 (mg/dL) Final Creatinine 07/11/2023 15:29:11 4.7 Above high normal 0.6-1.2 (mg/dL) Final Glomerular filtration rate/1.73 sq M.predicted [Volume Rate/Area] in Serum, Plasma or Blood by Creatinine-based formula (CKD-EPI) 07/11/2023 15:29:11 13 Below low normal >=60 (mL/min) Final eGFR is calculated based on the CKD-EPI 2020 equation Sodium 07/11/2023 15:29:11 134 Below low normal 135 -146 (mmol/L) Final Potassium 07/11/2023 15:29:11 5.1 3.5-5.1 (m mol/L) Final Cl 07/11/2023 15:29:11 102 98-107 (mm ol/L) Final CO2 07/11/2023 15:29:11 17 Below low normal 22- 32 (mmol/L) Final Anion gap 07/11/2023 15:29:11 15 7-15 (mmol /L) Final Glucose 07/11/2023 15:29:11 184 Above high normal 70 -120 (mg/dL) Final Calcium 07/11/2023 15:29:11 8.9 8.4-10.2 ( mg/dL) Final Performing Location LAB[facility]ATORY [facility] - [facility] [place] [address]
--- OUTSIDE RECORDS SUMMARY | 2023-07-13 16:13 | External Medical Summary ---
Author Name Unknown Address Unknown Organization K01:[facility] [place] [address] [place] [address] Laboratory Report Ordering Provider Test Date Status DAWOOD MONTGOMERY 07/11/2023 15:29:11 Final Observation Date Value Abnormality Reference (Units ) Status MYCODE SPECIMEN-SST 07/11/2023 15:29:11 Freezing of extracted DNA, whole blood and/or serum. Final Performing Location [facility] [place] [address] [place] [address]
--- OUTSIDE RECORDS SUMMARY | 2023-07-13 16:13 | External Medical Summary | Summary of Care ---
Author Name Unknown Organization [facility] Address [address] [place] [address] Phone [phone] Care Team Providers Care Digital Field Service Technician Name Role Phone Charity Reed MD Primary Care Provider [phone] Reason for Visit * Reason Onset Date Comments Test Results 07/03/2023 Encounter Details Date Type Department Care Team (Late st Contact Info) Description 07/03/2023 Telephone General Internal Medicine [facility] 200 [facility] [place] [address] Bina Alexander MD 200 [place] [address] Test Results Allergies Active Allergy Reactions Criticality Noted Date Comments Pollen 05/17/2021 documented as of this encounter (statuses as of 07/07/2023) Medications Medication Sig Dispensed Refills Start Date End Date Status OneTouch Ultra Blue In Vitro Strip (Glucose Blood)Indications: Diabetic polyneuropathy associated with type 2 diabetes mellitus (HCC),DM type 2, not at goal (HCC) Use as directed 4 times a day as needed for Other (test blood sugars up to 4 times daily). Use up to four times a day as directed 100 Strip 11 05/17/19 22 Active Folic Acid 1 MG Oral TabletIndications: Alcohol use disorder, severe, dependence (HCC) Take 1 Tablet (1 mg) by mouth in the morning. 90 Tablet 3 02/26/20 22 Active OneTouch Delica Lancets 33G Use to test sugars upto 2 times daily 100 Each 3 05/02/19 23 Active OneTouch Verio In Vitro Strip (Glucose Blood) Use to test sugars upto 2 timesdaily 100 Strip 3 05/02/19 23 Active Acetaminophen 325 MG Oral Tablet (Tylenol) 2 Tablets. 0 05/31/19 23 Active Aspirin 81 MG Oral Tablet Delayed ReleaseIndications :S/p left hip fracture,S/P total left hip arthroplasty,Hospi noé discharge follow-up,Ischemic cardiomyopathy,Typ e 2 diabetes mellitus with stage 3a chronic kidney disease, with long-term current use of insulin (HCC) Take 1 Tablet by mouth in the morning and 1 Tablet in the evening. Sp left THR for fracture 11/12/22. 0 11/30/19 23 Active Empagliflozin 10 MG Oral Tablet (Jardiance)Indicat ions:History of diabetic ketoacidosis,Type 2 diabetes mellitus with stage 3b chronic kidney disease, without long-term current use of insulin (HCC) Take 1 Tablet by mouth in the morning. Restart 03/22/2023. 30 Tablet 2 03/22/19 24 Active Multi-Vitamins Oral Tablet Take 1 Tablet by mouth in the morning. 0 Active Tamsulosin HCl 0.4 MG Oral Capsule (Flomax) Take 1 Capsule by mouth in the morning. 0 Active Lantus SoloStar 100 UNIT/ML Subcutaneous Solution Pen-injectorIndica tions:Hypoglycemia ,Hospital discharge follow-up,Type 2 diabetes mellitus with stage 3b chronic kidney disease, without long-term current use of insulin (HCC),Labile blood glucose INJECT 16 UNITS SUBCUTANEOUSLY ONCE DAILY 6 mL 0 03/24/19 24 Active Insulin Aspart 100 UNIT/ML Injection Solution (NovoLOG)Indicatio ns:History of diabetic ketoacidosis,Hospi noé discharge follow-up,Type 2 diabetes mellitus with stage 3b chronic kidney disease, without long-term current use of insulin ([facility]) Using 5 units if sugar >300 0 03/26/19 24 Active Sodium Bicarbonate 650 MG Oral Tablet Take 1 Tablet by mouth in the morning and 1 Tablet before bedtime. 120 Tablet 11 04/13/19 24 Active Vitamin D3/PCB 4000 UNITS Oral Capsule (STUDY MED) Take 1 Capsule by mouth in the morning. 0 Active DULoxetine HCl 30 MG Oral Capsule Delayed Release Particles (Cymbalta)Indicati ons:Type 2 diabetes mellitus with stage 3a chronic kidney disease, with long-term current use of insulin (HCC),History of substance abuse (HCC),Alcohol use disorder, severe, dependence (HCC),Polyneuropat hy, unspecified Take 1 capsule by mouth in the morning 90 Capsule 3 06/09/19 24 Active NIFEdipine ER 60 MG Oral Tablet Extended Release 24 Hour (Adalat CC)Indications:HTN , goal below 140/80 Take 1 Tablet by mouth in the morning. 90 Tablet 0 04/12/19 24 024 Discontinued Atorvastatin Calcium 80 MG Oral Tablet (Lipitor)Indicatio ns:Type 2 diabetes mellitus with stage 3a chronic kidney disease, with long-term current use of insulin (HCC),Ischemic cardiomyopathy Take 1 Tablet by mouth in the morning. 90 Tablet 0 04/12/19 24 024 Discontinued Pantoprazole Sodium 40 MG Oral Tablet Delayed Release (Protonix)Indicati ons:Gastroesophage al reflux disease with esophagitis without hemorrhage Take 1 Tablet by mouth in the morning. 90 Tablet 0 04/12/19 24 024 Discontinued documented as of this encounter (statuses as of 07/07/2023) Active Problems Problem Noted Date Diagnosed Date [...] edema 10/08/2021 Coronary artery disease invo lving [place] coronary artery of [place] heart without angina pectoris 03/26/2020 Anemia 02/14/2020 [...] as of this encounter (statuses as of 07/07/2023) Resolved Problems Problem Noted Date Diagnosed Date [...] as of this encounter (statuses as of 07/07/2023) Immunizations Name Administration Dates Next Due COVID-19 mRNA, LNP-s, No Pre serve, 2-Dose Series (Zoomy) 06/24/2020,06/01/2020 Pneumococcal Conjugate Vacci ne, 20-valent ([id number]) 02/25/2022 Pneumococcal Polysaccharide PPV23 (Pneumovax) 06/21/2021,04/26/2019 Seasonal [...] Telephone Encounter - Bina Alexander MD - 07/04/2023 3:07 PM EDT Noted * Telephone Encounter - Amber Cornell MD - 07/04/2023 2:59 PM EDT Agree w/ Dr Alexander's note. Concern pt could need hospital stay if we can get labs turned around Neph spares scheduler pls arrange vist w/ or Kim next 7 days; ok on same day as labs if that works; may need to call his primary contact Dr Laura VEGA * Telephone Encounter - Bina Alexander MD - 07/03/2023 4:13 PM EDT Noted Important to get repeat lab and urine in 1-2 days due to significant change in kidney function * Telephone Encounter - Becca Neil LPN - 07/03/2023 4:09 PM EDT Patient's EC notified of message below. Verbalized understanding. Patient urinates frequently but he also drinks a lot of fluids. No c/o urinary sx. She will bring him in for UA and culture as soon as she can. She is managing his appts and her mother's and her it out of town. He does have an appt with Dr. Reed on 07/12/23. Fluid intake is good, no swelling and no NSAIDs. * Telephone Encounter - Becca Neil LPN - 07/03/2023 4:04 PM EDT ----- Message from Bina Alexander MD sent at 07/03/2023 4:03 PM EDT ----- Creatinine significantly high . Any urinary symptoms, burning urination or feels not emptying enough of retention ? Suggest to get UA and culture to make sure and Renal us. Repeat labs in 1-2 days . How is fluid intake and swelling , any diarrhea or vomiting ? Any NSAID ( ibuprofen, advil, Aleve, naproxyn ) Rest stable . Sugar looks better . Cont other medication FYI to Dr Kraig Alexander MD (Covering for Dr Reed) documented in this encounter Plan of Treatment Upcoming Encounters Date Type Department Care Team (Late st Contact Info) Description 07/12/2023 10:20 AM EDT Office Visit General Internal Medicine [facility] [address] [place] [address] Charity Reed MD 200 [facility] [place] [address] 07/13/2023 2:30 PM EDT Office Visit Nephrology, [facility] [place] [address] Kim Garcia PA-C 200 [facility] [place] [address] 07/17/2023 1:00 PM EDT Office Visit Neurology [facility] 200 [facility] [place] [address] Ruchi Jason MD 200 [facility] [place], [place] [address] 12/20/2023 8:30 AM EDT Therapy Neuropsychology [facility] [place] 200 [facility] [place], [place] [address] Randell Grimes, PhD 200 [facility] [place] [address] 02/19/2024 3:00 PM EST Office Visit Nephrology, [facility] 200 [facility] [place], [place] [id number] Amber Cornell MD 200 [facility] [place] [address] 05/23/2024 1:20 PM EST Office Visit Dermatology [facility] 200 [facility] [place], [place] [address] Alix Rajan PA-C 200 [facility] [place] [address] Scheduled Procedures Name Priority [...] Other - (no specific identity) Health Care Melt House Drag Operator (appointed verbally by patient or by statute hierarchy) Care Teams Digital Field Service Technician Relationship Specialty Start Date End Date Charity Reed MD [address] [place] [address] PCP - General Internal Medicine 12/17/19 documented as of this encounter
--- OUTSIDE RECORDS SUMMARY | 2023-07-13 16:13 | External Medical Summary | Summary of Care ---
Author Name Unknown Organization [facility] Address [address] [place] [address] Phone [phone] Care Team Providers Care Floor Assembler Name Role Phone Charity Reed MD Primary Care Provider Reason for Visit * Reason Comments eRx-Medication Refill Encounter Details Date Type Department Care Team (Late st Contact Info) Description 07/07/2023 Refill General Internal Medicine [facility] [address] [place] [address] Charity Reed MD 200 [place] [address] HTN, goal below 140/80 Allergies Active Allergy Reactions Criticality Noted Date [...] disease, with long-term current use of insulin ([facility]) Take 1 Tablet by mouth in the morning and 1 Tablet in the evening. Sp left THR for fracture 11/12/22. 0 11/30/19 23 Active Empagliflozin 10 MG Oral Tablet (Jardiance)Indicat ions:History of diabetic ketoacidosis,Type 2 diabetes mellitus with stage 3b chronic kidney disease, without long-term current use of insulin ([facility]) Take 1 Tablet by mouth in [...] disease, without long-term current use of insulin ([facility]),Labile blood glucose INJECT 16 UNITS SUBCUTANEOUSLY ONCE DAILY 6 mL 0 03/24/19 24 Active Insulin Aspart 100 UNIT/ML Injection Solution (NovoLOG)Indicatio ns:History of diabetic ketoacidosis,Hospi noé discharge follow-up,Type 2 diabetes mellitus with stage 3b chronic kidney disease, without long-term current use of insulin ([facility]) Using 5 units if sugar >300 [...] morning 90 Capsule 3 06/09/19 24 Active Pantoprazole Sodium 40 MG Oral Tablet Delayed Release (Protonix)Indicati ons:Gastroesophage al reflux disease with esophagitis without hemorrhage TAKE 1 TABLET BY MOUTH IN THE MORNING 90 Tablet 1 07/06/19 24 Active Atorvastatin Calcium 80 MG Oral Tablet (Lipitor)Indicatio ns:Type 2 diabetes mellitus with stage 3a chronic kidney disease, with long-term current use of insulin ([facility]),Ischemic cardiomyopathy TAKE 1 TABLET BY MOUTH IN THE MORNING 90 Tablet 3 07/06/19 24 Active NIFEdipine ER 60 MG Oral Tablet Extended Release 24 Hour (Adalat CC)Indications:HTN , goal below 140/80 TAKE 1 TABLET BY MOUTH IN THE MORNING 90 Tablet 2 07/07/19 24 Active NIFEdipine ER 60 MG Oral [...] edema 10/08/2021 Coronary artery disease invo lving [place] coronary artery of [place] heart without angina pectoris 03/26/2020 Anemia 02/14/2020 [...] (Pfizer) 06/24/2020,06/01/2020 Pneumococcal Conjugate Vacci ne, 20-valent ([id number]) 02/25/2022 Pneumococcal Polysaccharide PPV23 (Pneumovax) 06/21/2021,04/26/2019 Seasonal [...] encounter Miscellaneous Notes * Telephone Encounter - Juvenal Coleman [facility] - 07/07/2023 2:59 PM EDTSigned Prescriptions: Disp Refills NIFEdipine ER 60 MG Oral Tablet Extended R*90 Tab*2 Sig: TAKE 1 TABLET BY MOUTH IN THE MORNINGAuthorizing Provider: Leyda REED User: JUVENAL COLEMAN--- documented in this encounter Plan of Treatment Upcoming Encounters Date Type Department Care Team (Late st Contact Info) Description 07/12/2023 10:20 AM EDT Office Visit General Internal Medicine [facility] [address] [place], [place] [address] Charity Reed MD [address] [place], [place] [address] 07/13/2023 2:30 PM EDT Office Visit Nephrology, [facility] 200 [facility] [place] [address] Kim Garcia PA-C 200 [facility] [place] [address] 07/17/2023 1:00 PM EDT Office Visit Neurology [facility] [address] [place] [address] Ruchi Jason MD 200 [facility] [place] [address] 12/20/2023 8:30 AM EDT Therapy Neuropsychology [facility] [address] [place] [address] Randell Grimes, PhD 200 [facility] [place] [address] 02/19/2024 3:00 PM EST Office Visit Nephrology, [facility] [address] [facility] [address] [place] [address] Amber Cornell MD [address] [facility] [address] [place] [id number] 05/23/2024 1:20 PM EST Office Visit Dermatology [facility] [place] [address] [facility] [place] [address] Alix Rajan PA-C 200 [facility] [place] [phone] Scheduled Procedures Name [...] Additional history exists COVID-19 Vaccine (3 - 2022- season) 2022 06/24/2020, 06/01/2020 COLONOSCOPY-EVERY 3 YRS AGES 18-100 01/05/2023 01/06/2020, 01/06/2020 Depression, Most Recent Score >= 10 (will fire each visit until score < 10) 05/09/2023 05/08/2023 HbA1c 12/27/2023 06/27/2023, 03/20, 08/22/2022, Additional history exists GFR 01/04/2024 07/05/2023, 11/2023, 04/07/2023, Additional history exists O2 ASSESSMENT [...] as of this encounter Visit Diagnoses Diagnosis HTN, goal below 140/80 Unspecified essential hypertension documented in this encounter Advance Directives Healthcare Agents on File Name Relationship Healthcare Agent Relationship Communication Kavya Banks Other - (no specific identity) Health Care Recreational Sports Director (appointed verbally by patient or by statute hierarchy) Care Teams Floor Assembler Relationship Specialty Start Date End Date Charity Reed MD [address] [place] [address] PCP - General Internal Medicine 12/17/19 documented as of this encounter
--- OUTSIDE RECORDS SUMMARY | 2023-07-13 16:13 | External Medical Summary | Summary of Care ---
Author Name Unknown Organization [facility] Address [address] [place] [address] Phone [phone] Care Team Providers Care Water Meter Installer Name Role Phone Charity Reed MD Primary Care Provider [phone] Reason for Visit * Reason Comments eRx-Medication Refill Encounter Details Date Type Department Care Team (Late st Contact Info) Description 07/06/2023 Refill General Internal Medicine [facility] [address] [facility] [place] [address] Charity Reed MD 200 [place] [address] Type 2 diabetes mellitus with stage 3a chronic kidney disease, with long-term current use of insulin ([facility]); Ischemic cardiomyopathy Allergies Active Allergy Reactions Criticality Noted Date [...] disease, without long-term current use of insulin ([facility]) Using 5 units if sugar >300 0 03/26/19 24 Active NIFEdipine ER 60 MG Oral Tablet Extended Release 24 Hour (Adalat CC)Indications:HTN , goal below 140/80 Take 1 Tablet by mouth in the morning. 90 Tablet 0 04/12/19 24 Active Sodium Bicarbonate 650 MG Oral [...] disease, with long-term current use of insulin ([facility]),History of substance abuse ([facility]),Alcohol use disorder, severe, dependence (HCC),Polyneuropat hy, unspecified [...] disease, with long-term current use of insulin ([facility]),Ischemic cardiomyopathy TAKE 1 TABLET BY MOUTH IN THE MORNING 90 Tablet 3 07/06/19 24 Active Atorvastatin Calcium 80 MG Oral Tablet (Lipitor)Indicatio ns:Type 2 diabetes mellitus with stage 3a chronic kidney disease, with long-term current use of insulin ([facility]),Ischemic cardiomyopathy Take 1 Tablet by mouth in [...] (Pfizer) 06/24/2020,06/01/2020 Pneumococcal Conjugate Vacci ne, 20-valent ([id number]) 02/25/2022 Pneumococcal Polysaccharide PPV23 (Pneumovax) 06/21/2021,04/26/2019 Seasonal [...] encounter Miscellaneous Notes * Telephone Encounter - Jesús Boyd RPh - 07/06/2023 8:44 PM EDTSigned Prescriptions: Disp Refills Atorvastatin Calcium 80 MG Oral Tablet (Li*90 Tab*3 Sig: TAKE 1 TABLET BY MOUTH IN THE MORNINGAuthorizing Provider: Leyda REED User: JESÚS BOYD documented in this encounter Plan of Treatment Upcoming Encounters Date Type Department Care Team (Late st Contact Info) Description 07/12/2023 10:20 AM EDT Office Visit General Internal Medicine [facility] [place] [address] [place] [address] Charity Reed MD 200 [facility] [place] [address] 07/13/2023 2:30 PM EDT Office Visit Nephrology, [facility] [address] [place], [place] [address] Kim Garcia PA-C 200 [facility] [place] [address] 07/17/2023 1:00 PM EDT Office Visit Neurology [facility] [address] [facility] [place] [address] Ruchi Jason MD [address] [facility] [place] [address] 12/20/2023 8:30 AM EDT Therapy Neuropsychology [facility] [address] [facility] [place] [address] Randell Grimes, PhD [address] [facility] [place] [address] 02/19/2024 3:00 PM EST Office Visit Nephrology, [facility] [address] [facility] [place], [place] [address] Amber Cornell MD [address] [facility] [place] [address] 05/23/2024 1:20 PM EST Office Visit Dermatology [facility] [address] [place] [address] Alix Rajan PA-C [address] [facility] [place] [address] Scheduled Procedures Name [...] Diagnosis Type 2 diabetes mellitus with stage 3a chronic kidney disease, with long-term current use of insulin (HCC) Ischemic cardiomyopathy Other specified forms of chronic ischemic heart disease documented in this encounter Advance Directives Healthcare Agents on File Name Relationship Healthcare Agent Relationship Communication Kavya Banks Other - (no specific identity) Health Care Environmental Health And Safety Leader (appointed verbally by patient or by statute hierarchy) Care Teams Water Meter Installer Relationship Specialty Start Date End Date Charity Reed MD [address] [place] [address] PCP - General Internal Medicine 12/17/19 documented as of this encounter
--- OUTSIDE RECORDS SUMMARY | 2023-07-13 16:13 | External Medical Summary | Summary of Care ---
Author Name Unknown Organization [facility] Address [address] [place] [address] Phone [phone] Care Team Providers Care Dispatch Clerk Name Role Phone Charity Reed MD Primary Care Provider Reason for Visit * Reason Onset Date Comments Test Results 07/06/2023 Encounter Details Date Type Department Care Team (Late st Contact Info) Description 07/06/2023 Telephone General Internal Medicine [facility] 200 [facility] [place] [address] Bina Alexander MD 200 [place] [address] Test Results Allergies Active Allergy Reactions Criticality [...] disease, with long-term current use of insulin ([facility]) Take 1 Tablet by mouth in the morning and 1 Tablet in the evening. Sp left THR for fracture 11/12/22. 0 11/29/2022 Active Empagliflozin 10 MG Oral Tablet (Jardiance)Indicati ons:History of diabetic ketoacidosis,Type 2 diabetes mellitus with stage 3b chronic kidney disease, without long-term current use of insulin ([facility]) Take 1 Tablet by mouth [...] disease, without long-term current use of insulin ([facility]),Labile blood glucose INJECT 16 UNITS SUBCUTANEOUSLY ONCE DAILY 6 mL 0 03/24/2023 Active Insulin Aspart 100 UNIT/ML Injection Solution (NovoLOG)Indication s:History of diabetic ketoacidosis,Hospit al discharge follow-up,Type 2 diabetes mellitus with stage 3b chronic kidney disease, without long-term current use of insulin ([facility]) Using 5 units if sugar >300 0 03/26/2023 Active NIFEdipine ER 60 MG Oral Tablet Extended Release 24 Hour (Adalat CC)Indications:HTN, goal below 140/80 Take 1 Tablet by mouth in the morning. 90 Tablet 0 04/12/2023 Active Atorvastatin Calcium 80 MG Oral Tablet (Lipitor)Indication s:Type 2 diabetes mellitus with stage 3a chronic kidney disease, with long-term current use of insulin ([facility]),Ischemic cardiomyopathy Take 1 Tablet by mouth in [...] disease, with long-term current use of insulin ([facility]),History of substance abuse ([facility]),Alcohol use disorder, severe, dependence ([facility]),Polyneuropath y, unspecified Take 1 capsule by mouth [...] edema 10/08/2021 Coronary artery disease invo lving [place] coronary artery of [place] heart without angina pectoris 03/26/2020 Anemia 02/14/2020 [...] (Pfizer) 06/24/2020,06/01/2020 Pneumococcal Conjugate Vacci ne, 20-valent ([id number]) 02/25/2022 Pneumococcal Polysaccharide PPV23 (Pneumovax) 06/21/2021,04/26/2019 Seasonal [...] encounter Miscellaneous Notes * Telephone Encounter - Reynaldo Reyes RN [...] face (minutes): 10 Reynaldo Reyes RN BSN [facility] Primary Care Nurse Coordinator [facility] (Helping out) * Telephone Encounter - Reynaldo [...] AM EDT Office Visit General Internal Medicine [facility] [place] [address] [facility] [place] [address] Charity Reed MD 200 [facility] [place] [address] 07/13/2023 2:30 PM EDT Office Visit Nephrology, [facility] [address] [place] [address] Kim Garcia PA-C 200 [facility] [place] [address] 07/17/2023 1:00 PM EDT Office Visit Neurology [facility] [place] [address] [facility] [place] [address] Ruchi Jason MD 200 [facility] [place] [address] 12/20/2023 8:30 AM EDT Therapy Neuropsychology [facility] [address] [facility] [place] [address] Randell Grimes, PhD 200 [facility] [place] [address] 02/19/2024 3:00 PM EST Office Visit Nephrology, [facility] [address] [facility] [address] [place] [address] Amber Cornell MD 200 [facility] [place] [address] 05/23/2024 1:20 PM EST Office Visit Dermatology [facility] [address] [facility] [place] [address] Alix Rajan PA-C 200 [facility] [place] [address] Scheduled Procedures Name Priority [...] Other - (no specific identity) Health Care Naphthalene Operator (appointed verbally by patient or by statute hierarchy) Care Teams Dispatch Clerk Relationship Specialty Start Date End Date Charity Reed MD [address] [place] [address] PCP - General Internal Medicine 12/17/19 documented as of this encounter
--- OUTSIDE RECORDS SUMMARY | 2023-07-13 16:14 | External Medical Summary ---
Author Name Unknown Address Unknown Organization [id number] [address] [place] [address] Laboratory Report Ordering Provider Test Date Status NATACHA DANIELLE 06/27/2023 09:52:10 Final Observation Date Value Abnormality Reference (Units ) Status ALT (Alanine aminotransferase) 06/27/2023 09:52:10 11 10-50 (U/L) Final Performing Location [facility] [address] [place] [address]
--- OUTSIDE RECORDS SUMMARY | 2023-07-13 16:14 | External Medical Summary | Summary of Care ---
Author Name Unknown Organization [facility] Address [address] [place] [address] Phone [phone] Care Team Providers Care Air Tool Operator Name Role Phone Charity Reed MD Primary Care Provider Reason for Visit * Reason Comments eRx-Medication Refill Encounter Details Date Type Department Care Team (Late st Contact Info) Description 07/05/2023 Refill General Internal Medicine [facility] 200 [place] [address] Charity Reed MD 200 [place] [address] Gastroesophageal reflux disease with esophagitis without hemorrhage Allergies Active Allergy Reactions Criticality Noted Date [...] 2 times daily 100 Each 3 05/02/19 Active OneTouch Verio In Vitro Strip (Glucose Blood) Use to test sugars upto 2 timesdaily 100 Strip 3 05/02/19 Active Acetaminophen 325 MG Oral Tablet (Tylenol) 2 Tablets. 0 05/31/19 23 Active Aspirin 81 MG Oral Tablet Delayed ReleaseIndications :S/p left hip fracture,S/P total left hip arthroplasty,Hospi noé discharge follow-up,Ischemic cardiomyopathy,Typ e 2 diabetes mellitus with stage 3a chronic kidney disease, with long-term current use of insulin ([facility]) Take 1 Tablet by mouth in the morning and 1 Tablet in the evening. Sp left THR for fracture 11/12/22. 0 11/30/19 23 Active Empagliflozin 10 MG Oral Tablet (Jardiance)Indicat ions:History of diabetic ketoacidosis,Type 2 diabetes mellitus with stage 3b chronic kidney disease, without long-term current use of insulin ([facility]) Take 1 Tablet by mouth [...] long-term current use of insulin ([facility]),Labile blood glucose INJECT 16 UNITS SUBCUTANEOUSLY ONCE DAILY 6 mL 0 03/24/19 24 Active Insulin Aspart 100 UNIT/ML Injection Solution (NovoLOG)Indicatio ns:History of diabetic ketoacidosis,Hospi noé discharge follow-up,Type 2 diabetes mellitus with stage 3b chronic kidney disease, without long-term current use of insulin ([facility]) Using 5 units if sugar >300 0 03/26/19 24 Active NIFEdipine ER 60 MG Oral Tablet Extended Release 24 Hour (Adalat CC)Indications:HTN , goal below 140/80 Take 1 Tablet by mouth in the morning. 90 Tablet 0 04/12/19 24 Active Atorvastatin Calcium 80 MG Oral Tablet (Lipitor)Indicatio ns:Type 2 diabetes mellitus with stage 3a chronic kidney disease, with long-term current use of insulin ([facility]),Ischemic cardiomyopathy Take 1 Tablet by [...] long-term current use of insulin ([facility]),History of substance abuse ([facility]),Alcohol use disorder, severe, dependence ([facility]),Polyneuropat hy, unspecified Take 1 capsule by mouth in the morning 90 Capsule 3 06/09/19 24 Active Pantoprazole Sodium 40 MG Oral Tablet Delayed Release (Protonix)Indicati ons:Gastroesophage al reflux disease with esophagitis without hemorrhage TAKE 1 TABLET BY MOUTH IN THE MORNING 90 Tablet 1 07/06/19 24 Active Pantoprazole Sodium 40 MG Oral [...] edema 10/08/2021 Coronary artery disease invo lving [place] coronary artery of [place] heart without angina pectoris 03/26/2020 Anemia 02/14/2020 [...] mRNA, LNP-s, No Pre serve, 2-Dose Series ([employer]) 06/24/2020,06/01/2020 Pneumococcal Conjugate Vacci ne, 20-valent ([id number]) 02/25/2022 Pneumococcal Polysaccharide PPV23 (Pneumovax) 06/21/2021,04/26/2019 Seasonal [...] encounter Miscellaneous Notes * Telephone Encounter - Marita Schwartz RPh - 07/06/2023 10:59 AM EDT Signed Prescriptions: Disp Refills Pantoprazole Sodium 40 MG Oral Tablet Pauline*90 Tab*1 Sig: TAKE 1 TABLET BY MOUTH IN THE MORNINGAuthorizing Provider: Leyda REED User: MARITA SCHWARTZ- documented in this encounter Plan of Treatment Upcoming Encounters Date Type Department Care Team (Late st Contact Info) Description 07/12/2023 10:20 AM EDT Office Visit General Internal Medicine [facility] [place] [address] [place], [place] [phone] Charity Reed MD [address] [place] [address] 07/13/2023 2:30 PM EDT Office Visit Nephrology, [facility] 200 [facility] [place], [place] [address] Kim Garcia PA-C 200 [facility] [place] [address] 07/17/2023 1:00 PM EDT Office Visit Neurology [facility] 200 [facility] [place] [address] Ruchi Jason MD 200 [facility] [place] [address] 12/20/2023 8:30 AM EDT Therapy Neuropsychology [facility] 200 [facility] [place] [address] Randell Grimes, PhD 200 [facility] [place] [address] 02/19/2024 3:00 PM EST Office Visit Nephrology, [facility] 200 [facility] [place], [place] [address] Amber Cornell MD 200 [facility] [place], [place] [address] 05/23/2024 1:20 PM EST Office Visit Dermatology [facility] [address] [facility] [address] [place] [address] Alix Rajan PA-C 200 [facility] [place] [phone] Scheduled Procedures Name Priority [...] as of this encounter Visit Diagnoses Diagnosis Gastroesophageal reflux disease with esophagitis without hemorrhage documented in this encounter Advance Directives Healthcare Agents on File Name Relationship Healthcare Agent Relationship Communication Kavya Banks Other - (no specific identity) Health Care Specialty Molder (appointed verbally by patient or by statute hierarchy) Care Teams Air Tool Operator Relationship Specialty Start Date End Date Charity Reed MD 200 [place] [address] PCP - General Internal Medicine 12/17/19 documented as of this encounter
--- OUTSIDE RECORDS SUMMARY | 2023-07-13 16:14 | External Medical Summary ---
Author Name Unknown Address Unknown Organization [facility] [address] [place] [address] Laboratory Report Ordering Provider Test Date Status NATACHA DANIELLE 06/27/2023 09:52:10 Final Observation Date Value Abnormality Reference (Units ) Status LDL, (direct) 06/27/2023 09:52:10 98 <=129 (mg/dL) Final LDL Cholesterol Reference Ra nges (mg/dL):
<70 Target level for high risk ASCVD patient
<100 Optimal for general population
100-129 Near optimal for general population
130-159 Borderline high
160-189 High
>=190 Very high Performing Location [facility] [address] [place] [address]
--- OUTSIDE RECORDS SUMMARY | 2023-07-13 16:14 | External Medical Summary ---
Author Name Unknown Address Unknown Organization [facility] [address] [place] [address] Laboratory Report Ordering Provider Test Date Status SAMANTHA ROBERTS 07/05/2023 13:40:58 Final Observation Date Value Abnormality Reference (Units ) Status BUN 07/05/2023 13:40:58 71 Above high normal 6-20 (mg/dL) Final Creatinine 07/05/2023 13:40:58 4.6 Above high normal 0.6-1.2 (mg/dL) Final Glomerular filtration rate/1.73 sq M.predicted [Volume Rate/Area] in Serum, Plasma or Blood by Creatinine-based formula (CKD-EPI) 07/05/2023 13:40:58 14 Below low normal >=60 (mL/min) Final eGFR is calculated based on the CKD-EPI 2020 equation Sodium 07/05/2023 13:40:58 133 Below low normal 135 -146 (mmol/L) Final Potassium 07/05/2023 13:40:58 4.8 3.5-5.1 (m mol/L) Final Cl 07/05/2023 13:40:58 100 98-107 (mm ol/L) Final CO2 07/05/2023 13:40:58 18 Below low normal 22- 32 (mmol/L) Final Anion gap 07/05/2023 13:40:58 15 7-15 (mmol /L) Final Glucose 07/05/2023 13:40:58 103 70-120 (mg /dL) Final Calcium 07/05/2023 13:40:58 8.9 8.4-10.2 ( mg/dL) Final Performing Location [facility] [address] [place] [address]
--- OUTSIDE RECORDS SUMMARY | 2023-07-13 16:14 | External Medical Summary | Summary of Care ---
Author Name Unknown Organization [facility] Address [address] [place] [address] Phone [phone] Care Team Providers Care Clinical Assistant Name Role Phone Charity Reed MD Primary Care Provider Reason for Visit * Reason Comments Outpatient Testing Encounter Details Date Type Department Care Team (Late st Contact Info) Description 07/05/2023 2:50 PM EDT Laboratory Laboratory, [facility] [address] [address] [facility] [address] [place] [address] Acute kidney injury superimposed on CKD (HCC) Allergies Active Allergy Reactions Criticality Noted Date Comments Pollen 05/17/2021 documented as of this encounter (statuses as of 07/05/2023) Medications Medication Sig Dispensed Refills Start Date [...] disease, with long-term current use of insulin ([facility]) Take 1 Tablet by mouth in the morning and 1 Tablet in the evening. Sp left THR for fracture 11/12/22. 0 11/29/2022 Active Empagliflozin 10 MG Oral Tablet (Jardiance)Indicati ons:History of diabetic ketoacidosis,Type 2 diabetes mellitus with stage 3b chronic kidney disease, without long-term current use of insulin ([facility]) Take 1 Tablet by mouth [...] disease, without long-term current use of insulin ([facility]),Labile blood glucose INJECT 16 UNITS SUBCUTANEOUSLY ONCE DAILY 6 mL 0 03/24/2023 Active Insulin Aspart 100 UNIT/ML Injection Solution (NovoLOG)Indication s:History of diabetic ketoacidosis,Hospit al discharge follow-up,Type 2 diabetes mellitus with stage 3b chronic kidney disease, without long-term current use of insulin ([facility]) Using 5 units if sugar [...] the morning. 90 Tablet 0 04/12/2023 Active Pantoprazole Sodium 40 MG Oral Tablet Delayed Release (Protonix)Indicatio ns:Gastroesophageal reflux disease with esophagitis without hemorrhage Take [...] the morning 90 Capsule 3 06/09/2023 Active documented as of this encounter (statuses as of 07/05/2023) Active Problems Problem Noted Date Diagnosed Date [...] edema 10/08/2021 Coronary artery disease invo lving [place] coronary artery of [place] heart without angina pectoris 03/26/2020 Anemia 02/14/2020 [...] as of this encounter (statuses as of 07/05/2023) Resolved Problems Problem Noted Date Diagnosed Date [...] as of this encounter (statuses as of 07/05/2023) Immunizations Name Administration Dates Next Due COVID-19 mRNA, LNP-s, No Pre serve, 2-Dose Series (Pfizer) 06/24/2020,06/01/2020 Pneumococcal Conjugate Vacci ne, 20-valent ([id number]) 02/25/2022 Pneumococcal Polysaccharide PPV23 (Pneumovax) 06/21/2021,04/26/2019 Seasonal [...] AM EDT Office Visit General Internal Medicine [facility] [place] [address] [place] [address] Charity Reed MD [address] [place] [address] 07/13/2023 2:30 PM EDT Office Visit Nephrology, [facility] [address] [place] [address] Kim Garcia PA-C [address] [place] [address] 07/17/2023 1:00 PM EDT Office Visit Neurology [facility] [place] [address] [place] [address] Ruchi Jason MD [address] [place] [address] 12/20/2023 8:30 AM EDT Therapy Neuropsychology [facility] [place] [address] [place] [address] Randell Grimes, PhD [address] [place] [address] 02/19/2024 3:00 PM EST Office Visit Nephrology, [facility] 200 [facility] [place], [place] [address] Amber Cornell MD 200 [facility] [place] [address] 05/23/2024 1:20 PM EST Office Visit Dermatology [facility] [place] [address] [facility] [address] [place] [address] Alix Rajan PA-C 200 [facility] [place] [phone] Pending Results Name Type Priority Associated Diagnoses Date /Time BASIC METABOLIC PANEL Lab Routine Acute kidney injury superimposed on CKD (HCC) 07/05/2023 1:40 PM EDT URINALYSIS WITH MICROSCOPIC EXAM Lab Routine Acute kidney injury superimposed on CKD (HCC) 07/05/2023 1:49 PM EDT CULTURE, URINE, QUANTITATIVE Lab Routine Acute kidney injury superimposed on CKD (HCC) 07/05/2023 1:49 PM EDT Scheduled Procedures Name Priority Associated [...] 03/18/2020, 07/05/2016, Additional history exists COVID-19 Vaccine (2022- season) 2022 06/24/2020, 06/01/2020 COLONOSCOPY-EVERY 3 YRS AGES 18-100 01/05/2023 01/06/2020, 01/06/2020 Depression, Most Recent Score >= 10 (will fire each visit until score < 10) 05/09/2023 05/08/2023 GFR 12/27/2023 06/27/2023, 03/20, 03/14/2023, Additional history exists HbA1c 12/27/2023 06/27/2023, 03/20, 08/22/2022, Additional history exists O2 ASSESSMENT COMPLETED IN [...] as of this encounter Visit Diagnoses Diagnosis Acute kidney injury superimposed on CKD (HCC) documented in this encounter Advance Directives Healthcare Agents on File Name Relationship Healthcare Agent Relationship Communication Kavya Banks Other - (no specific identity) Health Care Meat Inspector (appointed verbally by patient or by statute hierarchy) Care Teams Clinical Assistant Relationship Specialty Start Date End Date Charity Reed MD [address] [place] [address] PCP - General Internal Medicine 12/17/19 documented as of this encounter
--- OUTSIDE RECORDS SUMMARY | 2023-07-13 16:14 | External Medical Summary | Summary of Care ---
Author Name Unknown Organization [facility] Address [address] [place] [address] Phone [phone] Care Team Providers Care Inbound Sales Manager Name Role Phone Charity Reed MD Primary Care Provider Reason for Visit * Reason Comments Outpatient Testing Encounter Details Date Type Department Care Team (Late st Contact Info) Description 07/05/2023 2:50 PM EDT Laboratory Laboratory, [facility] [address] [place] [address] [facility] [address] [place] [address] Acute kidney injury superimposed on [...] long-term current use of insulin ([facility]) Take 1 Tablet by mouth in the morning and 1 Tablet in the evening. Sp left THR for fracture 11/12/22. 0 11/29/2022 Active Empagliflozin 10 MG Oral Tablet (Jardiance)Indicati ons:History of diabetic ketoacidosis,Type 2 diabetes mellitus with stage 3b chronic kidney disease, without long-term current use of insulin ([facility]) Take 1 Tablet by mouth in [...] long-term current use of insulin ([facility]),Labile blood glucose INJECT 16 UNITS SUBCUTANEOUSLY ONCE DAILY 6 mL 0 03/24/2023 Active Insulin Aspart 100 UNIT/ML Injection Solution (NovoLOG)Indication s:History of diabetic ketoacidosis,Hospit al discharge follow-up,Type 2 diabetes mellitus with stage 3b chronic kidney disease, without long-term current use of insulin ([facility]) Using 5 units if sugar >300 [...] edema 10/08/2021 Coronary artery disease invo lving [place] coronary artery of [place] heart without angina pectoris 03/26/2020 Anemia 02/14/2020 [...] (Pfizer) 06/24/2020,06/01/2020 Pneumococcal Conjugate Vacci ne, 20-valent ([id number]) 02/25/2022 Pneumococcal Polysaccharide PPV23 (Pneumovax) 06/21/2021,04/26/2019 Seasonal [...] AM EDT Office Visit General Internal Medicine [facility] [place] [address] [place] [address] Charity Reed MD [address] [place] [address] 07/13/2023 2:30 PM EDT Office Visit Nephrology, [facility] [address] [place] [address] [address] Kim Garcia PA-C [address] [place] [address] 07/17/2023 1:00 PM EDT Office Visit Neurology [facility] [place] [address] [place] [address] [address] Ruchi Jason MD [address] [place] [address] 12/20/2023 8:30 AM EDT Therapy Neuropsychology [facility] [place] [address] [place] [address] [address] Randell Grimes, PhD [address] [place] [address] 02/19/2024 3:00 PM EST Office Visit Nephrology, [facility] [address] [facility] [place], [place] [address] Amber Cornell MD [address] [facility] [place] [address] 05/23/2024 1:20 PM EST Office Visit Dermatology [facility] [place] [address] [facility] [address] [place] [address] Alix Rajan PA-C [address] [facility] [place] [phone] Pending Results Name Type [...] Other - (no specific identity) Health Care [employer]er (appointed verbally by patient or by statute hierarchy) Care Teams Inbound Sales Manager Relationship Specialty Start Date End Date Charity Reed MD [address] [place] [address] PCP - General Internal Medicine 12/17/19 documented as of this encounter
--- OUTSIDE RECORDS SUMMARY | 2023-07-13 16:14 | External Medical Summary ---
Author Name Unknown Address Unknown Organization [id number]:LABORATORY [facility] [place] - [address] [place] [address] Laboratory Report Ordering Provider Test Date Status NATACHA DANIELLE 06/27/2023 09:52:10 Final Observation Date Value Abnormality Reference (Units ) Status Parathyrin.intact [Mass/volume] in Serum or Plasma 06/27/2023 09:52:10 168 Above high normal 15-65 (pg/mL) Final Performing Location LABORATORY [facility] [place] - [facility] [place] [address]
--- OUTSIDE RECORDS SUMMARY | 2023-07-13 16:14 | External Medical Summary | Summary of Care ---
Author Name Unknown Organization [facility] Address [address] [place] [address] Phone [phone] Care Team Providers Care Tub Attendant Name Role Phone Charity Reed MD Primary Care Provider [phone] Reason for Visit * Reason Comments Outpatient Testing Encounter Details Date Type Department Care Team ([facility] st Contact Info) Description 06/27/2023 9:50 AM EDT Laboratory Laboratory, [facility] [address] [place] [address] [facility] [address] [place] [address] Type 2 diabetes mellitus with stage 4 chronic kidney disease, with long-term current use of insulin (HCC); Dyslipidemia, goal LDL below 70; Vitamin D deficiency; High serum parathyroid hormone (PTH) Allergies Active Allergy Reactions Criticality Noted Date Comments Pollen 05/17/2021 documented as of this encounter (statuses as of 06/27/2023) Medications Medication Sig Dispensed Refills Start Date [...] long-term current use of insulin ([facility]) Take 1 Tablet by mouth in the morning and 1 Tablet in the evening. Sp left THR for fracture 11/12/22. 0 11/29/2022 Active Empagliflozin 10 MG Oral Tablet (Jardiance)Indicati ons:History of diabetic ketoacidosis,Type 2 diabetes mellitus with stage 3b chronic kidney disease, without long-term current use of insulin ([facility]) Take 1 Tablet by mouth in [...] long-term current use of insulin ([facility]),Labile blood glucose INJECT 16 UNITS SUBCUTANEOUSLY ONCE DAILY 6 mL 0 03/24/2023 Active Insulin Aspart 100 UNIT/ML Injection Solution (NovoLOG)Indication s:History of diabetic ketoacidosis,Hospit al discharge follow-up,Type 2 diabetes mellitus with stage 3b chronic kidney disease, without long-term current use of insulin ([facility]) Using 5 units if sugar >300 [...] use of insulin (HCC),History of substance abuse ([facility]),Alcohol use disorder, severe, dependence (HCC),Polyneuropath y, unspecified Take 1 capsule by mouth in the morning 90 Capsule 3 06/09/2023 Active documented as of this encounter (statuses as of 06/27/2023) Active Problems Problem Noted Date Diagnosed Date [...] edema 10/08/2021 Coronary artery disease invo lving [place] coronary artery of [place] heart without angina pectoris 03/26/2020 Anemia 02/14/2020 [...] as of this encounter (statuses as of 06/27/2023) Resolved Problems Problem Noted Date Diagnosed Date [...] as of this encounter (statuses as of 06/27/2023) Immunizations Name Administration Dates Next Due COVID-19 mRNA, LNP-s, No Pre serve, 2-Dose Series (Pfizer) 06/24/2020,06/01/2020 Pneumococcal Conjugate Vacci ne, 20-valent ([id number]) 02/25/2022 Pneumococcal Polysaccharide PPV23 (Pneumovax) 06/21/2021,04/26/2019 Seasonal [...] AM EDT Office Visit General Internal Medicine [facility] [place] [address] [place] [address] Charity Reed MD [address] [place] [address] 07/17/2023 1:00 PM EDT Office Visit Neurology [facility] [place] [address] [place] [address] Ruchi Jason MD [address] [place] [address] 12/20/2023 8:30 AM EDT Therapy Neuropsychology [facility] [place] [address] [place] [address] Randell Grimes, PhD [address] [place] [address] 02/19/2024 3:00 PM EST Office Visit Nephrology, [facility] [address] [place] [address] [address] Amber Cornell MD [address] [place], [place] [address] 05/23/2024 1:20 PM EST Office Visit Dermatology [place] [place] [address] [facility] [place] [address] Alix Rajan PA-C [address] [facility] [place] [phone] Pending Results Name Type Priority Associated Diagnoses Date /Time ALT Lab Routine Type 2 diabetes mellitus with stage 4 chronic kidney disease, with long-term current use of insulin ([facility]) Dyslipidemia, goal LDL below 70 06/27/2023 9:52 AM EDT HEMOGLOBIN A1C Lab Routine Type 2 diabetes mellitus with stage 4 chronic kidney disease, with long-term current use of insulin ([facility]) 06/27/2023 9:52 AM EDT LDL CHOLESTEROL (DIRECT MEASURE) Lab Routine Type 2 diabetes mellitus with stage 4 chronic kidney disease, with long-term current use of insulin ([facility]) Dyslipidemia, goal LDL below 70 06/27/2023 9:52 AM EDT RENAL FUNCTION PANEL Lab Routine Type 2 diabetes mellitus with stage 4 chronic kidney disease, with long-term current use of insulin ([facility]) 06/27/2023 9:52 AM EDT 25-HYDROXY VITAMIN D Lab Routine Type 2 diabetes mellitus with stage 4 chronic kidney disease, with long-term current use of insulin ([facility]) Vitamin D deficiency High serum parathyroid hormone (PTH) 06/27/2023 9:52 AM EDT PTH Lab Routine Type 2 diabetes mellitus with stage 4 chronic kidney disease, with long-term current use of insulin ([facility]) Vitamin D deficiency High serum parathyroid hormone (PTH) 06/27/2023 9:52 AM EDT Scheduled Procedures Name Priority Associated Diagnoses [...] until score < 10) 05/09/2023 05/08/2023 GFR 10/06/2023 04/07/2023, 02/18, 11/29/2022, Additional history exists HbA1c 10/06/2023 04/07/2023, 0607/2022, 02/25/2022, Additional history exists O2 ASSESSMENT COMPLETED IN PAST YEAR FOR COPD 04/13/2024 04/13/2023 DTaP,Tdap,and Td Vaccines (3 - Td or Tdap) 08/05/2026 08/05/2016, 08/05/2016 LUNG CANCER SCREENING - USE SMARTSET [id number] Completed 01/16/2020 Zoster Vaccines Completed 07/15/2020, 01/30/2020 [...] with long-term current use of insulin (HCC) Dyslipidemia, goal LDL below 70 Other and unspecified hyperlipidemia Vitamin D deficiency Unspecified vitamin D deficiency High serum parathyroid hormone (PTH) documented in this encounter Advance Directives Healthcare Agents on File Name Relationship Healthcare Agent Relationship Communication Kavya Banks Other - (no specific identity) Health Care Dairy [employer] Manager (appointed verbally by patient or by statute hierarchy) Care Teams Tub Attendant Relationship Specialty Start Date End Date Charity Reed MD [address] [place] [address], [place] [address] PCP - General Internal Medicine 12/17/19 documented as of this encounter
--- OUTSIDE RECORDS SUMMARY | 2023-07-13 16:14 | External Medical Summary ---
Author Name Unknown Address Unknown Organization [id number]:LABORATORY [facility] [place] - [address] [facility] [address] Laboratory Report Ordering Provider Test Date Status NATACHA DANIELLE 06/27/2023 09:52:10 Final Observation Date Value Abnormality Reference (Units ) Status BUN 06/27/2023 09:52:10 60 Above high normal 6-20 (mg/dL) Final Creatinine 06/27/2023 09:52:10 5.4 Above high normal 0.6-1.2 (mg/dL) Final Glomerular filtration rate/1.73 sq M.predicted [Volume Rate/Area] in Serum, Plasma or Blood by Creatinine-based formula (CKD-EPI) 06/27/2023 09:52:10 11 Below low normal >=60 (mL/min) Final eGFR is calculated based on the CKD-EPI 2020 equation Sodium 06/27/2023 09:52:10 136 135-146 (m mol/L) Final Potassium 06/27/2023 09:52:10 4.8 3.5-5.1 (m mol/L) Final Cl 06/27/2023 09:52:10 103 98-107 (mm ol/L) Final CO2 06/27/2023 09:52:10 20 Below low normal 22- 32 (mmol/L) Final Anion gap 06/27/2023 09:52:10 13 7-15 (mmol /L) Final Glucose 06/27/2023 09:52:10 135 Above high normal 70 -120 (mg/dL) Final Calcium 06/27/2023 09:52:10 9.1 8.4-10.2 ( mg/dL) Final Albumin 06/27/2023 09:52:10 3.7 Below low normal 3.8 -5.0 (g/dL) Final Phosphate 06/27/2023 09:52:10 4.3 2.5-4.8 (m g/dL) Final Performing Location LABORATORY [facility] [place] - [address] [facility] [address]
--- OUTSIDE RECORDS SUMMARY | 2023-07-13 16:14 | External Medical Summary ---
Author Name Unknown Address Unknown Organization [id number]:LABORATORY [facility] [address] - [address] [facility] [address] Laboratory Report Ordering Provider Test Date Status SAMANTHA ROBERTS 07/05/2023 13:49:47 Final Observation Date Value Abnormality Reference (Units ) Status Color of Urine by Auto 07/05/2023 13:49:47 Yellow Light Yellow, Yellow, Dark Yellow Final Clarity, Urine 07/05/2023 13:49:47 Clear Clear Final Glucose [Mass/volume] in Urine by Automated test strip 07/05/2023 13:49:47 250 Abnormal Negative (mg/dL) Final Bilirubin.total [Presence] in Urine by Automated test strip 07/05/2023 13:49:47 Negative Negative Final Ketones [Mass/volume] in Urine by Automated test strip 07/05/2023 13:49:47 Negative Negative (mg/dL) Final Specific gravity, Urine 07/05/2023 13:49:47 1.025 1.003-1.030 Final Hemoglobin [Presence] in Urine by Automated test strip 07/05/2023 13:49:47 Trace Abnormal Negative Final pH, Urine 07/05/2023 13:49:47 5.5 5.0-7.5 (Units) Final Protein [Mass/volume] in Urine by Automated test strip 07/05/2023 13:49:47 >=300 Abnormal Negative (mg/dL) Final Urobilinogen [Mass/volume] in Urine by Automated test strip 07/05/2023 13:49:47 0.2 0.2, 1.0 (mg/dL) Final Nitrite [Presence] in Urine by Automated test strip 07/05/2023 13:49:47 Negative Negative Final Leukocyte esterase [Presence] in Urine by Automated test strip 07/05/2023 13:49:47 Negative Negative Final RBC, Urine 07/05/2023 13:49:47 0-2 0-2 (/HPF) Final WBC, Urine 07/05/2023 13:49:47 3-5 Abnormal 0-2 (/HPF) Final Bacteria [#/area] in Urine sediment by Microscopy high power field 07/05/2023 13:49:47 26-50 Abnormal 0-25 (/HPF) Final Hyaline casts, Urine 07/05/2023 13:49:47 1-4 Abnormal None (/LPF) Final Performing Location LABORATORY [facility] [address] - [address] [place] [address]
--- OUTSIDE RECORDS SUMMARY | 2023-07-13 16:14 | External Medical Summary ---
Author Name Unknown Address Unknown Organization K01:LABORATORY C - [address] [place] [address] Laboratory Report Ordering Provider Test Date Status NATACHA DANIELLE 06/27/2023 09:52:10 Final Deficient: <20 ng/mL
Ins ufficient: 20-29 ng/mL
Recommended/Optimum:30-50 ng/mL

Vitamin D intoxication is rare. If suspicious of Vitamin D toxicity, evaluation of serum Calcium and PTH is recommended. Observation Date Value Abnormality Reference (Units ) Status 25-OH Vitamin D total 06/27/2023 09:52:10 25 >19 (ng/mL) Final Performing Location LABORATORY [facility] [place] - [address] [place] [address]
--- OUTSIDE RECORDS SUMMARY | 2023-07-13 16:14 | External Medical Summary ---
Author Name Unknown Address Unknown Organization K01:LABORATORY [facility] [place] [address] [place] [address] Laboratory Report Ordering Provider Test Date Status SAMANTHA ROBERTS 07/05/2023 13:49:47 Final Observation Date Value Abnormality Reference (Units) Status Bacteria identified in Specimen by Culture 07/05/2023 13:49:47 No significant growth Final Test: Culture, Urine, Quant itative
Specimen Source: Urine, Clean Catch
Specimen Type: Urine
Specimen Date: 07/05/2023 1:49 PM
Result Date: 07/06/2023 12:33 PM
Result Status: Final result
Resulting Lab: LABORATORY [facility] [place]
[address]
[place] [id number]

CULTURE

No significant growth

null Performing Location LABORATORY [facility] [place] - [address] [place] [id number]
--- OUTSIDE RECORDS SUMMARY | 2023-07-13 16:15 | External Medical Summary ---
Author Name Unknown Address Unknown Organization K01:LABORATORY [facility] [place] - [facility] [address] [facility] [address] Laboratory Report Ordering Provider Test Date Status NATACHA DANIELLE 06/27/2023 09:52:10 Final Observation Date Value Abnormality Reference (Units ) Status HbA1C 06/27/2023 09:52:10 7.8 Above high normal 4. 0-5.6 (%) Final The use of HbA1c to monitor glycemic status is based on normal hemoglobin and HbA composition. This test should not be used in patients with abnormal hemoglobin that affects the half life of the red blood cell or the in vivo glycation rates. Glucose, estimated average 06/27/2023 09:52:10 177 Above high normal <126 (mg/dL) Ezequiel allen Performing Location LABORATORY [facility] [place] - [address] [facility] [address]
[2023-07-13] MEDS: SODIUM BICARBONATE 8.4% 50 MEQ in SODIUM CHLORIDE 0.45 % 1,000 ML IV SCH (18:29)
[2023-07-13] MEDS: carvediloL 6.25 MG TAB PO SCH (18:29)
[2023-07-13] MEDS: ATORVASTATIN 40 MG TAB PO SCH (20:14)
[2023-07-14 06:57] LABS: Hematocrit (blood only) 31.6 % (42.0-52.0); Hemoglobin 10.3 g/dl (14.0-18.0); Mean Corpuscular Hemoglobin 28.1 pg (25.0-34.0); Mean Corpuscular Hgb Conc 32.6 g/dL (32.0-36.0); Mean Corpuscular Volume 86.1 fL (80.0-100.0); Mean Platelet Volume 9.8 fL (9.4-12.4); Platelet Count 228 K/uL (130-400); RDW Coefficient of Variation 12.7 % (11.5-14.5); RDW Standard Deviation 39.7 fL (36.4-46.3); Red Blood Count 3.67 M/uL (4.70-6.10); White Blood Count 5.35 K/ul (4.8-10.8)
[2023-07-14 07:27] LABS: BUN Creatinine Ratio 16.6 (10-20); Calcium 8.5 mg/dl (8.6-10.3); Creatinine Clr Calc Pharmacy 19.9 ml/min; Est GFR (African American) 15.1 ml/min; Est GFR (Non-African American) 13.1 ml/min; Magnesium 1.7 mg/dl (1.7-2.4); Phosphorus 5.5 mg/dl (2.5-4.9); Potassium 4.7 mmol/L (3.5-5.1)
--- NOTE | 2023-07-14 09:24 | Hospitalist Progress Note ---
Date of Service July 14, 2023 Assessment & Plan (1) ONDINA (acute kidney injury): Plan: 58 yo M with past medical history significant for type 2 diabetes, hyperlipidemia, obstructive apnea seems noncompliant, pulmonary emphysema, hypertension, ischemic cardiomyopathy, history of CAD, CKD stage III/IV, fatty liver, persistent proteinuria, polyneuropathy, anemia, history of alcoholism, depression, generalized anxiety disorder, history of substance abuse, mild c ognitive impairment, food insecurity, was homeless before currently lives with a sister comes because of ONDINA. Patient outpatient labs were showing worsening kidney function and and was advised to come to the hospital. Patient says he is micturating okay. Denies any hematuria. No nausea or vomiting. No abdominal pain. Normal bowel movements. No chest pain or shortness of breath. Currently no swelling of the legs. Has dry skin. Appetite is okay. Denies any headache or dizziness. Has some runny nose from allergies. Denies any cough. States ambulating okay in the house. Currently living with his sister. Sister states his last alcohol drink was in December and he had a couple of drinks in February. Still smoking. Currently resting comfortably and hemodynamically stable. ONDINA on CKD stage III/IV Presents with creatinine of 4.7 -> 4.3 -> 4.5 His creatinine was in the twos in February 2023 Renal ultrasound obtained unremarkable Will monitor in the hospital Nephrology consulted, appreciate recommendations - was started on IV bicarb, HTN better controlled with added coreg Hyperkalemia Potassium 5.3 on admission Low potassium diet Follow labs Metabolic acidosis CO2 19 Mostly from CKD Follow labs Nephrology consulted, started on bicarb Diabetes Continue home Lantus. Hold Jardiance Sliding scale Will monitor History of CAD Status post drug-eluting stents to in December 2018 On aspirin, statin History of polysubstance abuse History of alcoholism and was in rehab History of withdrawal seizures Currently not drinking Continue folic acid, thiamine will monitor. Ongoing tobacco abuse Counseling Nicotine patch Chronic systolic CHF EF 49% Not on diuretics We will monitor Obstructive sleep apnea Patient states not using CPAP for long time Will monitor Anemia Chronic Hemoglobin 10.2 Will follow labs Hypertension On nifedipine Coreg added by nephrology, BP better controlled Cont. to Monitor Hyperlipidemia On statin Depression General Anxiety disorder On duloxetine GERD Protonix DVT prophylaxis - Heparin subcu Disposition - Telemetry Full code Admission and Anticipated Discharge Date Admission Date: July 12, 2023 Subjective Pt seen in follow up of ONDINA on CKD Currently laying in bed in NAD, seems a bit sleepy and slow to answer but answers appropriately Has hx of alcoholism, homelessness, lived with his sister - now says he lives alone - just recently No fever, chills, chest pain, shortness of breath, abd. pain, n/v Nephrology consulted for ONDINA on CKD Review of Systems Review of Systems: All systems reviewed & are unremarkable except as noted in Subjective Physical Exam Physical Exam: General- WD/WN in NAD Head- atraumatic Eyes- PERRL. Neck- supple, no JVD. Lungs- clear to auscultation no wheezing or crackles. Heart- regular rhythm; no murmur Abdomen- normal bowel sounds, soft, nontender, no distension. Extremities- no pretibial edema, no erythema seen Neuro- alert, oriented x 3; PERRL, no facial palsy; no dysarthria; moves extremities. Skin- warm & dry Results & Data Results & Data Vital Signs (Past 12 Hours) Vital Signs Temp Pulse Pulse Pulse Resp BP Pulse Ox 07/14/23 07:19 36.6 C 62 20 173/97 H 96 07/14/23 04:00 145/61 H 07/14/23 03:43 36.5 C 63 22 161/90 H 95 07/13/23 22:59 36.7 C 76 22 155/83 H 94 07/13/23 21:52 78 O2 Del Method 07/14/23 07:19 Room Air 07/14/23 04:00 07/14/23 03:43 Room Air 07/13/23 22:59 Room Air 07/13/23 21:52 Laboratory Results 07/14/23 07/14/23 07/13/23 Range/Units 07:18 06:22 20:24 WBC 5.35 (4.8-10.8) K/ul RBC 3.67 L (4.70-6.10) M/uL Hgb 10.3 L (14.0-18.0) g/dl Hct 31.6 L (42.0-52.0) % MCV 86.1 (80.0-100.0) fL MCH 28.1 (25.0-34.0) pg MCHC 32.6 (32.0-36.0) g/dL RDW Std Deviation 39.7 (36.4-46.3) fL RDW Coeff of Alberto 12.7 (11.5-14.5) % Plt Count 228 (130-400) K/uL MPV 9.8 (9.4-12.4) fL Sodium 133 L (136-145) mmol/L Potassium 4.7 (3.5-5.1) mmol/L Chloride 105 (98-107) mmol/L Carbon Dioxide 19 L (21-32) mmol/L Anion Gap 9 (3-11) BUN 76 H (6-23) mg/dl Creatinine 4.57 H* (0.6-1.4) mg/dl Est Cr Clr Drug Dosing 19.9 ml/min Est GFR ( Amer) 15.1 ml/min Est GFR (Non-Af Amer) 13.1 ml/min BUN/Creatinine Ratio 16.6 (10-20) Glucose 97 (70-99(Fasting)) mg/dl POC Glucose 105 H 94 (70-99) mg/dl Calcium 8.5 L (8.6-10.3) mg/dl Phosphorus 5.5 H (2.5-4.9) mg/dl Magnesium 1.7 (1.7-2.4) mg/dl 07/13/23 07/13/23 Range/Units 16:05 11:54 WBC (4.8-10.8) K/ul RBC (4.70-6.10) M/uL Hgb (14.0-18.0) g/dl Hct (42.0-52.0) % MCV (80.0-100.0) fL MCH (25.0-34.0) pg MCHC (32.0-36.0) g/dL RDW Std Deviation (36.4-46.3) fL RDW Coeff of Alberto (11.5-14.5) % Plt Count (130-400) K/uL MPV (9.4-12.4) fL Sodium (136-145) mmol/L Potassium (3.5-5.1) mmol/L Chloride (98-107) mmol/L Carbon Dioxide (21-32) mmol/L Anion Gap (3-11) BUN (6-23) mg/dl Creatinine (0.6-1.4) mg/dl Est Cr Clr Drug Dosing ml/min Est GFR ( Amer) ml/min Est GFR (Non-Af Amer) ml/min BUN/Creatinine Ratio (10-20) Glucose (70-99(Fasting)) mg/dl POC Glucose 84 135 H (70-99) mg/dl Calcium (8.6-10.3) mg/dl Phosphorus (2.5-4.9) mg/dl Magnesium (1.7-2.4) mg/dl Medications Administered Current Inpatient Medications Acetaminophen (Acetaminophen 325 Mg Tab) 650 mg PO Q4H PRN PRN Reason: Pain or Fever Stop: 08/11/23 22:56 Aspirin (Aspirin 81 Mg Ectab) 81 mg PO BID [facility] Stop: 08/12/23 08:59 Last Admin: 07/13/23 20:14 Dose: 81 mg Atorvastatin Calcium (Atorvastatin 40 Mg Tab) 80 mg PO HS [facility] Stop: 08/12/23 20:59 Last Admin: 07/13/23 20:14 Dose: 80 mg Carvedilol (Carvedilol 6.25 Mg Tab) 6.25 mg PO BIDM [facility] Stop: 08/12/23 17:59 Last Admin: 07/13/23 18:29 Dose: 6.25 mg Dextrose (Dextrose 50% 50 Ml Syringe) 25 - 50 ml IV UD PRN; Protocol PRN Reason: Hypoglycemia Protocol Stop: 08/11/23 22:56 Duloxetine HCl (Duloxetine Hcl 30 Mg Cap) 30 mg PO DAILY [facility] Stop: 08/12/23 08:59 Last Admin: 07/13/23 09:06 Dose: 30 mg Folic Acid (Folic Acid 1 Mg Tab) 1 mg PO DAILY [facility] Stop: 08/12/23 08:59 Last Admin: 07/13/23 09:06 Dose: 1 mg Glucagon (Glucagon For Inj 1 Mg Vial) 1 mg SQ UD PRN; Protocol PRN Reason: Hypoglycemia Protocol Stop: 08/11/23 22:56 Glucose (Glucose 10 Tab/Tube) 4 - 8 tab PO UD PRN; Protocol PRN Reason: Hypoglycemia Treatment Stop: 08/11/23 22:56 Glucose (Glucose 40% Gel 15 Gm Tube) 15 - 30 gm PO UD PRN; Protocol PRN Reason: Hypoglycemia Protocol Stop: 08/11/23 22:56 Heparin Sodium (Porcine) (Heparin Sod 5,000 Unit/0.5 Ml Vial) 5,000 units SQ Q8 [facility] Stop: 08/11/23 22:56 Last Admin: 07/14/23 05:08 Dose: 5,000 units Hydralazine HCl (Hydralazine 10 Mg Tab) 10 mg PO Q4H PRN PRN Reason: Hypertension Stop: 08/12/23 17:59 Sodium Bicarbonate 50 meq/ (Sodium Chloride) 1,050 mls @ 80 mls/hr IV .Q13H8M [facility] Stop: 08/12/23 17:59 Last Admin: 07/14/23 07:08 Dose: 80 mls/hr Insulin Aspart (Insulin Aspart Per Unit Charge) 0 units SC ACHS [facility] Stop: 08/12/23 07:29 Last Admin: 07/13/23 20:48 Dose: Not Given Insulin Glargine (Lantus Per Unit Charge) 16 units SQ DAILY [facility] Stop: 08/12/23 08:59 Last Admin: 07/13/23 10:27 Dose: 16 units Lactobacillus Acidophilus (Advanced Probiotic 625 Mg Capsule) 1,250 mg PO DAILY [facility] Stop: 08/12/23 08:59 Last Admin: 07/13/23 09:06 Dose: 1,250 mg Loratadine (Loratadine 10 Mg Tab) 10 mg PO DAILY [facility] Stop: 08/12/23 08:59 Last Admin: 07/13/23 09:07 Dose: 10 mg Miscellaneous (Carbohydrates For Hypoglycemia ) 15 - 30 gm PO UD PRN PRN Reason: Hypoglycemia Protocol Stop: 08/11/23 22:56 Miscellaneous (Remove Nicoderm Patch) 1 each N/A DAILY@0859 [facility] Stop: 08/12/23 08:58 Last Admin: 07/13/23 14:33 Dose: 1 each Multivitamins/Minerals (Cerovite Adv Formula Tab) 1 tab PO DAILY [facility] Stop: 08/12/23 08:59 Last Admin: 07/13/23 09:04 Dose: 1 tab Nicotine (Nicotine 21 Mg/24 Hr Tdsy) 1 patch TD QAM [facility] Stop: 08/12/23 08:59 Last Admin: 07/13/23 09:16 Dose: 1 patch Nifedipine (Nifedipine Extended Rel 30 Mg Tabcr) 60 mg PO DAILY [facility] Stop: 08/12/23 08:59 Last Admin: 07/13/23 09:04 Dose: 60 mg Nitroglycerin (Nitroglycerin Sl 0.4 Mg/Tab Tab) 0.4 mg SL Q5M PRN PRN Reason: Chest Pain Stop: 08/11/23 22:56 Pantoprazole Sodium (Pantoprazole 40 Mg Tab) 40 mg PO DAILY [facility] Stop: 08/12/23 08:59 Last Admin: 07/13/23 09:05 Dose: 40 mg Polyethylene Glycol (Polyethylene (Miralax) 17 Gm Pack) 17 gm PO DAILY PRN PRN Reason: Constipation Stop: 08/11/23 22:56 Vitamin D (Cholecalciferol 25 Mcg (1000 Units) Tab) 100 mcg PO DAILY [facility] Stop: 08/12/23 08:59 Last Admin: 07/13/23 09:08 Dose: 100 mcg
[2023-07-14] MEDS: hydrALAZINE 10 MG TAB PO PRN (09:26)
--- NOTE | 2023-07-14 10:57 | Nephrology Progress Note ---
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 100% risk for ESRD within next few months. Was CKD 3B late March but worsening. Creat did not improve further and now stuck in the mid 4's. Will manage him more as CKD 4 approaching dialysis at this point. BP is high . No more in need of iv fluids. will need to begin aggressive ESRD planning after d/c. he is 100% not a home candidate given his homelessness Situation. It is hard to set up appt outpt--so if vascular agreeable may even do AVF inpt next week. S--says he feels fine. No SOb. No edema and making urine. Physical Exam Constitutional: well developed and well nourished Eyes: EOM intact bilaterally ENMT: Ears: no external ear abnormality Nose: no external nose abnormality Mouth: + dry oral mucous membranes Neck: no nuchal rigidity Respiratory: normal respiratory effort Auscultation: + diminished lung sounds Gastrointestinal (Abdomen): Inspection/Auscultation: normal bowel sounds Percussion/Palpation: abdomen soft; abdomen nontender Musculoskeletal: Extremities: No edema Skin: no rashes, warm and dry Neurologic: maza, fluent speech, no tremor Results & Data Vital Signs (Past 12 Hours) Vital Signs Temp Pulse Pulse Resp BP Pulse Ox O2 Del Method 07/14/23 07:19 36.6 C 62 20 173/97 H 96 Room Air 07/14/23 04:00 145/61 H 07/14/23 03:43 36.5 C 63 22 161/90 H 95 Room Air 07/13/23 22:59 36.7 C 76 22 155/83 H 94 Room Air
[2023-07-14] MEDS: THIAMINE HCL 100 MG TAB PO SCH (12:23)
--- NOTE | 2023-07-14 13:06 | Electrocardiogram Report ---
Test Reason : Blood Pressure : / mmHG Vent. Rate : 070 BPM Atrial Rate : 070 BPM P-R Int : 180 ms QRS Dur : 134 ms QT Int : 430 ms P-R-T Axes : 064 -19 093 degrees QTc Int : 464 ms Poor data quality, interpretation may be adversely affected Normal sinus rhythm Left ventricular hypertrophy with QRS widening Nonspecific T wave abnormality Abnormal ECG When compared with ECG of 12-JUL-2023 20:39, Premature atrial complexes are no longer Present Confirmed by Maurice Caldwell [id number] on 07/14/2023 1:06:30 PM Referred By: Charity Reed Confirmed By:Maurice Caldwell
[2023-07-15 06:44] LABS: BUN Creatinine Ratio 16.4 (10-20); Calcium 8.4 mg/dl (8.6-10.3); Creatinine Clr Calc Pharmacy 21.5 ml/min; Est GFR (African American) 16.7 ml/min; Est GFR (Non-African American) 14.4 ml/min; Magnesium 1.6 mg/dl (1.7-2.4); Phosphorus 5.3 mg/dl (2.5-4.9); Potassium 4.3 mmol/L (3.5-5.1)
--- NOTE | 2023-07-15 07:08 | Hospitalist Progress Note ---
Date of Service July 15, 2023 Assessment & Plan (1) ONDINA (acute kidney injury): Plan: 58 yo M with past medical history significant for type 2 diabetes, hyperlipidemia, obstructive apnea seems noncompliant, pulmonary emphysema, hypertension, ischemic cardiomyopathy, history of CAD, CKD stage III/IV, fatty liver, persistent proteinuria, polyneuropathy, anemia, history of alcoholism, depression, generalized anxiety disorder, history of substance abuse, mild c ognitive impairment, food insecurity, was homeless before currently lives with a sister comes because of ONDINA. Patient outpatient labs were showing worsening kidney function and and was advised to come to the hospital. Patient says he is micturating okay. Denies any hematuria. No nausea or vomiting. No abdominal pain. Normal bowel movements. No chest pain or shortness of breath. Currently no swelling of the legs. Has dry skin. Appetite is okay. Denies any headache or dizziness. Has some runny nose from allergies. Denies any cough. States ambulating okay in the house. Currently living with his sister. Sister states his last alcohol drink was in December and he had a couple of drinks in February. Still smoking. Currently resting comfortably and hemodynamically stable. ONDINA on CKD stage III/IV Presents with creatinine of 4.7 -> 4.3 -> 4.5 His creatinine was in the 2s in February 2023 Renal ultrasound obtained unremarkable Will monitor in the hospital Nephrology consulted, appreciate recommendations - was started on IV bicarb, HTN better controlled with added coreg Discussed w/ nephrology - treat as ESRD - cont. to monitor - may need dialysis a ccess next week Hyperkalemia Potassium 5.3 on admission Low potassium diet Follow labs Metabolic acidosis CO2 19 Mostly from CKD Follow labs Nephrology consulted, started on bicarb Diabetes Continue home Lantus. Hold Jardiance Sliding scale Will monitor History of CAD Status post drug-eluting stents to OM in December 2018 On aspirin, statin History of polysubstance abuse History of alcoholism and was in rehab History of withdrawal seizures Currently not drinking Continue folic acid, thiamine will monitor. Ongoing tobacco abuse Counseling Nicotine patch Chronic systolic CHF EF 49% Not on diuretics We will monitor Obstructive sleep apnea Patient states not using CPAP for long time Will monitor Anemia Chronic Hemoglobin 10.2 Will follow labs Hypertension On nifedipine Coreg added by nephrology, BP better controlled Cont. to Monitor Hyperlipidemia On statin Depression General Anxiety disorder On duloxetine GERD Protonix DVT prophylaxis - Heparin subcu Disposition - Telemetry Full code Admission and Anticipated Discharge Date Admission Date: July 12, 2023 Subjective Pt seen in follow up of ONDINA on CKD Currently laying in bed in NAD Has hx of alcoholism, homelessness, lived with his sister - now says he lives alone - just recently No fever, chills, chest pain, shortness of breath, abd. pain, n/v Nephrology consulted for ONDINA on CKD Discussed w/ nephrology yesterday - treat as ESRD - cont. to monitor - may need access placed next week Review of Systems Review of Systems: All systems reviewed & are unremarkable except as noted in Subjective Physical Exam Physical Exam: General- WD/WN in NAD Head- atraumatic Eyes- PERRL. Neck- supple, no JVD. Lungs- clear to auscultation no wheezing or crackles. Heart- regular rhythm; no murmur Abdomen- normal bowel sounds, soft, nontender, no distension. Extremities- no pretibial edema, no erythema seen Neuro- alert, oriented x 3; PERRL, no facial palsy; no dysarthria; moves extremities. Skin- warm & dry Results & Data Results & Data Vital Signs (Past 12 Hours) Vital Signs Temp Pulse Pulse Pulse Resp BP Pulse Ox 07/15/23 04:35 166/94 H 07/15/23 04:03 36.6 C 70 18 168/102 H 96 07/15/23 00:00 75 07/14/23 23:51 36.8 C 76 18 114/71 95 07/14/23 19:43 36.7 C 71 20 157/92 H 96 O2 Del Method 07/15/23 04:35 07/15/23 04:03 Room Air 07/15/23 00:00 07/14/23 23:51 Room Air 07/14/23 19:43 Room Air Laboratory Results 07/15/23 07/14/23 07/14/23 Range/Units 05:47 20:26 16:29 Sodium 136 (136-145) mmol/L Potassium 4.3 (3.5-5.1) mmol/L Chloride 106 (98-107) mmol/L Carbon Dioxide 20 L (21-32) mmol/L Anion Gap 10 (3-11) BUN 69 H (6-23) mg/dl Creatinine 4.21 H D (0.6-1.4) mg/dl Est Cr Clr Drug Dosing 21.5 ml/min Est GFR ( Amer) 16.7 ml/min Est GFR (Non-Af Amer) 14.4 ml/min BUN/Creatinine Ratio 16.4 (10-20) Glucose 79 (70-99(Fasting)) mg/dl POC Glucose 98 108 H (70-99) mg/dl Calcium 8.4 L (8.6-10.3) mg/dl Phosphorus 5.3 H (2.5-4.9) mg/dl Magnesium 1.6 L (1.7-2.4) mg/dl 07/14/23 07/14/23 07/14/23 Range/Units 11:17 07:18 06:22 Sodium 133 L (136-145) mmol/L Potassium 4.7 (3.5-5.1) mmol/L Chloride 105 (98-107) mmol/L Carbon Dioxide 19 L (21-32) mmol/L Anion Gap 9 (3-11) BUN 76 H (6-23) mg/dl Creatinine 4.57 H* (0.6-1.4) mg/dl Est Cr Clr Drug Dosing 19.9 ml/min Est GFR ( Amer) 15.1 ml/min Est GFR (Non-Af Amer) 13.1 ml/min BUN/Creatinine Ratio 16.6 (10-20) Glucose 97 (70-99(Fasting)) mg/dl POC Glucose 119 H 105 H (70-99) mg/dl Calcium 8.5 L (8.6-10.3) mg/dl Phosphorus 5.5 H (2.5-4.9) mg/dl Magnesium 1.7 (1.7-2.4) mg/dl Medications Administered Current Inpatient Medications Acetaminophen (Acetaminophen 325 Mg Tab) 650 mg PO Q4H PRN PRN Reason: Pain or Fever Stop: 08/11/23 22:56 Aspirin (Aspirin 81 Mg Ectab) 81 mg PO BID [facility] Stop: 08/12/23 08:59 Last Admin: 07/14/23 20:37 Dose: 81 mg Atorvastatin Calcium (Atorvastatin 40 Mg Tab) 80 mg PO HS [facility] Stop: 08/12/23 20:59 Last Admin: 07/14/23 20:37 Dose: 80 mg Carvedilol (Carvedilol 6.25 Mg Tab) 6.25 mg PO BIDM [facility] Stop: 08/12/23 17:59 Last Admin: 07/14/23 17:00 Dose: Not Given Dextrose (Dextrose 50% 50 Ml Syringe) 25 - 50 ml IV UD PRN; Protocol PRN Reason: Hypoglycemia Protocol Stop: 08/11/23 22:56 Duloxetine HCl (Duloxetine Hcl 30 Mg Cap) 30 mg PO DAILY [facility] Stop: 08/12/23 08:59 Last Admin: 07/14/23 09:26 Dose: 30 mg Folic Acid (Folic Acid 1 Mg Tab) 1 mg PO DAILY [facility] Stop: 08/12/23 08:59 Last Admin: 07/14/23 09:27 Dose: 1 mg Glucagon (Glucagon For Inj 1 Mg Vial) 1 mg SQ UD PRN; Protocol PRN Reason: Hypoglycemia Protocol Stop: 08/11/23 22:56 Glucose (Glucose 10 Tab/Tube) 4 - 8 tab PO UD PRN; Protocol PRN Reason: Hypoglycemia Treatment Stop: 08/11/23 22:56 Glucose (Glucose 40% Gel 15 Gm Tube) 15 - 30 gm PO UD PRN; Protocol PRN Reason: Hypoglycemia Protocol Stop: 08/11/23 22:56 Heparin Sodium (Porcine) (Heparin Sod 5,000 Unit/0.5 Ml Vial) 5,000 units SQ Q8 [facility] Stop: 08/11/23 22:56 Last Admin: 07/15/23 05:11 Dose: Not Given Hydralazine HCl (Hydralazine 10 Mg Tab) 10 mg PO Q4H PRN PRN Reason: Hypertension Stop: 08/12/23 17:59 Last Admin: 07/15/23 05:07 Dose: 10 mg Sodium Bicarbonate 50 meq/ (Sodium Chloride) 1,050 mls @ 80 mls/hr IV .Q13H8M [facility] Stop: 08/12/23 17:59 Last Admin: 07/14/23 20:31 Dose: 80 mls/hr Insulin Aspart (Insulin Aspart Per Unit Charge) 0 units SC ACHS [facility] Stop: 08/12/23 07:29 Last Admin: 07/14/23 20:35 Dose: Not Given Insulin Glargine (Lantus Per Unit Charge) 16 units SQ DAILY [facility] Stop: 08/12/23 08:59 Last Admin: 07/14/23 09:26 Dose: 16 units Lactobacillus Acidophilus (Advanced Probiotic 625 Mg Capsule) 1,250 mg PO DAILY [facility] Stop: 08/12/23 08:59 Last Admin: 07/14/23 09:26 Dose: 1,250 mg Loratadine (Loratadine 10 Mg Tab) 10 mg PO DAILY [facility] Stop: 08/12/23 08:59 Last Admin: 07/14/23 09:26 Dose: 10 mg Magnesium Oxide (Magnesium Oxide 400 Mg Tab) 400 mg PO QAM [facility] Stop: 08/14/23 08:59 Miscellaneous (Carbohydrates For Hypoglycemia ) 15 - 30 gm PO UD PRN PRN Reason: Hypoglycemia Protocol Stop: 08/11/23 22:56 Miscellaneous (Remove Nicoderm Patch) 1 each N/A DAILY@0859 [facility] Stop: 08/12/23 08:58 Last Admin: 07/14/23 12:23 Dose: 1 each Multivitamins/Minerals (Cerovite Adv Formula Tab) 1 tab PO DAILY [facility] Stop: 08/12/23 08:59 Last Admin: 07/14/23 09:26 Dose: 1 tab Nicotine (Nicotine 21 Mg/24 Hr Tdsy) 1 patch TD QAM [facility] Stop: 08/12/23 08:59 Last Admin: 07/14/23 12:23 Dose: 1 patch Nifedipine (Nifedipine Extended Rel 30 Mg Tabcr) 60 mg PO DAILY [facility] Stop: 08/12/23 08:59 Last Admin: 07/14/23 09:26 Dose: 60 mg Nitroglycerin (Nitroglycerin Sl 0.4 Mg/Tab Tab) 0.4 mg SL Q5M PRN PRN Reason: Chest Pain Stop: 08/11/23 22:56 Pantoprazole Sodium (Pantoprazole 40 Mg Tab) 40 mg PO DAILY [facility] Stop: 08/12/23 08:59 Last Admin: 07/14/23 09:26 Dose: 40 mg Polyethylene Glycol (Polyethylene (Miralax) 17 Gm Pack) 17 gm PO DAILY PRN PRN Reason: Constipation Stop: 08/11/23 22:56 Thiamine HCl (Thiamine Hcl 100 Mg Tab) 100 mg PO QAM [facility] Stop: 08/13/23 10:44 Last Admin: 07/14/23 12:23 Dose: 100 mg Vitamin D (Cholecalciferol 25 Mcg (1000 Units) Tab) 100 mcg PO DAILY [facility] Stop: 08/12/23 08:59 Last Admin: 07/14/23 09:26 Dose: 100 mcg
[2023-07-15] MEDS: MAGNESIUM OXIDE 400 MG TAB PO SCH (09:08)
--- NOTE | 2023-07-15 10:30 | Nephrology Progress Note ---
Date of Service July 15, 2023 Assessment & Plan (1) ONDINA (acute kidney injury): Plan: favor ONDINA dx given some improvement in renal function w holding jardiance. ? if he is maintaining adequate po intake on this medication. UA w/ 3+ protein, glucose and no ketones; sg 1017 Creatinine downtrending 4.2 from 4.7 yesterday. Baseline creatinine of 2 >continue 1/2 NS w/ 50 mEQ sodium bicarb / L at 80 mL hourly >cont to hold jardiance >agree w/ low K, carb consistent diet for now -strict I/O, daily bmp (2) CKD (chronic kidney disease) stage 4, GFR 15-29 ml/min: Plan: rapidly progressive CKD, high risk for ESRD. was CKD 3B per my late March note on review of [facility] and [facility] labs; but progressing CKD 4 at least since march. -continue supportive care >> will need to begin aggressive ESRD planning more than likely after d/c; not likely a home candidate given his tenuous psychosocial situation -Anjali;follow up on discharge Admission and Anticipated Discharge Date Admission Date: July 12, 2023 Subjective Seen for acute kidney injury on CKD. No shortness of breath. No leg swelling. Patient was net -1.4 L. Creatinine downtrending Review of Systems 2 Review of Systems: All other systems were reviewed and negative except as noted in HPI Physical Exam 2 Physical Exam: General exam: Appears comfortable, no acute distress HEENT: Pupils are equal and reactive to light Neck: No JVD, neck is supple trachea is midline Respiratory system: Clear breath sounds bilaterally. Gastrointestinal: Abdomen is soft, non distended, non tender, bowel sounds are present CVS: Regular rate and rhythm. No murmurs, rubs or gallops Musculoskeletal: No joint or muscle tenderness Extremities: Non tender, no edema, peripheral pulses are present Neuro: Oriented, no tremors, no focal neurological deficits Skin: No rashes Results & Data Vital Signs (Past 12 Hours) Vital Signs Temp Pulse Pulse Pulse Resp BP Pulse Ox 07/15/23 10:19 79 07/15/23 07:55 36.6 C 75 18 166/88 H 96 07/15/23 04:35 166/94 H 07/15/23 04:03 36.6 C 70 18 168/102 H 96 07/15/23 00:00 75 07/14/23 23:51 36.8 C 76 18 114/71 95 O2 Del Method 07/15/23 10:19 07/15/23 07:55 Room Air 07/15/23 04:35 07/15/23 04:03 Room Air 07/15/23 00:00 07/14/23 23:51 Room Air Laboratory Results 07/15/23 05:47 07/15/23 05:47 Phosphorus 5.3 H
[2023-07-16 06:30] LABS: BUN Creatinine Ratio 16.1 (10-20); Creatinine Clr Calc Pharmacy 22.1 ml/min; Est GFR (African American) 16.9 ml/min; Est GFR (Non-African American) 14.6 ml/min; Magnesium 1.6 mg/dl (1.7-2.4)
--- NOTE | 2023-07-16 07:44 | Hospitalist Progress Note ---
Date of Service July 16, 2023 Assessment & Plan (1) ONDINA (acute kidney injury): Plan: 58 yo M with past medical history significant for type 2 diabetes, hyperlipidemia, obstructive apnea seems noncompliant, pulmonary emphysema, hypertension, ischemic cardiomyopathy, history of CAD, CKD stage III/IV, fatty liver, persistent proteinuria, polyneuropathy, anemia, history of alcoholism, depression, generalized anxiety disorder, history of substance abuse, mild c ognitive impairment, food insecurity, was homeless before currently lives with a sister comes because of ONDINA. Patient outpatient labs were showing worsening kidney function and and was advised to come to the hospital. Patient says he is micturating okay. Denies any hematuria. No nausea or vomiting. No abdominal pain. Normal bowel movements. No chest pain or shortness of breath. Currently no swelling of the legs. Has dry skin. Appetite is okay. Denies any headache or dizziness. Has some runny nose from allergies. Denies any cough. States ambulating okay in the house. Currently living with his sister. Sister states his last alcohol drink was in December and he had a couple of drinks in February. Still smoking. Currently resting comfortably and hemodynamically stable. ONDINA on CKD stage III/IV Presents with creatinine of 4.7 -> 4.3 -> 4.5 -> 4.17 His creatinine was in the 2s in February 2023 Renal ultrasound obtained unremarkable Will monitor in the hospital Nephrology consulted, appreciate recommendations - was started on IV bicarb (now stopped), HTN - added coreg and doses increased Discussed w/ nephrology - treat as poss. ESRD - cont. to monitor - may need dialysis access next week Hyperkalemia Potassium 5.3 on admission Low potassium diet Follow labs Metabolic acidosis CO2 19 Mostly from CKD Follow labs Nephrology consulted, started on bicarb - now off Diabetes Continue home Lantus. Hold Jardiance Sliding scale Will monitor History of CAD Status post drug-eluting stents to in December 2018 On aspirin, statin History of polysubstance abuse History of alcoholism and was in rehab History of withdrawal seizures Currently not drinking Continue folic acid, thiamine will monitor. Ongoing tobacco abuse Counseling Nicotine patch Chronic systolic CHF EF 49% Not on diuretics We will monitor Obstructive sleep apnea Patient states not using CPAP for long time Will monitor Anemia Chronic Hemoglobin 10.2 Will follow labs Hypertension On nifedipine Coreg added by nephrology, doses increased Cont. to Monitor Hyperlipidemia On statin Depression General Anxiety disorder On duloxetine GERD - Protonix DVT prophylaxis - Heparin subcu Disposition - Telemetry Full code Admission and Anticipated Discharge Date Admission Date: July 12, 2023 Subjective Pt seen in follow up of ONDINA on CKD Currently laying in bed in NAD Has hx of alcoholism, homelessness, lived with his sister - now says he lives alone - just recently No fever, chills, chest pain, shortness of breath, abd. pain, n/v Nephrology consulted for ONDINA on CKD Discussed w/ nephrology - likely ESRD at this point - cont. to monitor - may need dialysis access placed next week Review of Systems Review of Systems: All systems reviewed & are unremarkable except as noted in Subjective Physical Exam Physical Exam: General- WD/WN in NAD Head- atraumatic Eyes- PERRL. Neck- supple, no JVD. Lungs- clear to auscultation no wheezing or crackles. Heart- regular rhythm; no murmur Abdomen- normal bowel sounds, soft, nontender, no distension. Extremities- no pretibial edema, no erythema seen Neuro- alert, oriented x 3; PERRL, no facial palsy; no dysarthria; moves extremities. Skin- warm & dry Results & Data Results & Data Vital Signs (Past 12 Hours) Vital Signs Temp Pulse Pulse Resp BP Pulse Ox O2 Del Method 07/16/23 07:38 36.7 C 68 18 205/105 H 95 Room Air 07/16/23 07:19 72 07/16/23 03:03 36.7 C 56 L 18 168/85 H 95 Room Air 07/16/23 00:00 80 07/15/23 23:11 36.6 C 76 18 168/89 H 95 Room Air Laboratory Results 07/16/23 07/16/23 07/15/23 Range/Units 07:17 05:30 20:12 Sodium 136 (136-145) mmol/L Potassium 4.0 (3.5-5.1) mmol/L Chloride 105 (98-107) mmol/L Carbon Dioxide 21 (21-32) mmol/L Anion Gap 10 (3-11) BUN 67 H (6-23) mg/dl Creatinine 4.17 H (0.6-1.4) mg/dl Est Cr Clr Drug Dosing 22.1 ml/min Est GFR ( Amer) 16.9 ml/min Est GFR (Non-Af Amer) 14.6 ml/min BUN/Creatinine Ratio 16.1 (10-20) Glucose 86 (70-99(Fasting)) mg/dl POC Glucose 93 185 H (70-99) mg/dl Calcium 8.0 L (8.6-10.3) mg/dl Phosphorus 5.0 H (2.5-4.9) mg/dl Magnesium 1.6 L (1.7-2.4) mg/dl 07/15/23 07/15/23 Range/Units 16:07 10:57 Sodium (136-145) mmol/L Potassium (3.5-5.1) mmol/L Chloride (98-107) mmol/L Carbon Dioxide (21-32) mmol/L Anion Gap (3-11) BUN (6-23) mg/dl Creatinine (0.6-1.4) mg/dl Est Cr Clr Drug Dosing ml/min Est GFR ( Amer) ml/min Est GFR (Non-Af Amer) ml/min BUN/Creatinine Ratio (10-20) Glucose (70-99(Fasting)) mg/dl POC Glucose 137 H 96 (70-99) mg/dl Calcium (8.6-10.3) mg/dl Phosphorus (2.5-4.9) mg/dl Magnesium (1.7-2.4) mg/dl Medications Administered Current Inpatient Medications Acetaminophen (Acetaminophen 325 Mg Tab) 650 mg PO Q4H PRN PRN Reason: Pain or Fever Stop: 08/11/23 22:56 Aspirin (Aspirin 81 Mg Ectab) 81 mg PO BID [facility] Stop: 08/12/23 08:59 Last Admin: 07/15/23 21:12 Dose: 81 mg Atorvastatin Calcium (Atorvastatin 40 Mg Tab) 80 mg PO HS [facility] Stop: 08/12/23 20:59 Last Admin: 07/15/23 21:13 Dose: 80 mg Carvedilol (Carvedilol 6.25 Mg Tab) 6.25 mg PO BIDM [facility] Stop: 08/12/23 17:59 Last Admin: 07/15/23 16:52 Dose: 6.25 mg Dextrose (Dextrose 50% 50 Ml Syringe) 25 - 50 ml IV UD PRN; Protocol PRN Reason: Hypoglycemia Protocol Stop: 08/11/23 22:56 Duloxetine HCl (Duloxetine Hcl 30 Mg Cap) 30 mg PO DAILY [facility] Stop: 08/12/23 08:59 Last Admin: 07/15/23 09:08 Dose: 30 mg Folic Acid (Folic Acid 1 Mg Tab) 1 mg PO DAILY [facility] Stop: 08/12/23 08:59 Last Admin: 07/15/23 09:08 Dose: 1 mg Glucagon (Glucagon For Inj 1 Mg Vial) 1 mg SQ UD PRN; Protocol PRN Reason: Hypoglycemia Protocol Stop: 08/11/23 22:56 Glucose (Glucose 10 Tab/Tube) 4 - 8 tab PO UD PRN; Protocol PRN Reason: Hypoglycemia Treatment Stop: 08/11/23 22:56 Glucose (Glucose 40% Gel 15 Gm Tube) 15 - 30 gm PO UD PRN; Protocol PRN Reason: Hypoglycemia Protocol Stop: 08/11/23 22:56 Heparin Sodium (Porcine) (Heparin Sod 5,000 Unit/0.5 Ml Vial) 5,000 units SQ Q8 [facility] Stop: 08/11/23 22:56 Last Admin: 07/16/23 05:56 Dose: 5,000 units Hydralazine HCl (Hydralazine 10 Mg Tab) 10 mg PO Q4H PRN PRN Reason: Hypertension Stop: 08/12/23 17:59 Last Admin: 07/15/23 13:01 Dose: 10 mg Sodium Bicarbonate 50 meq/ (Sodium Chloride) 1,050 mls @ 80 mls/hr IV .Q13H8M [facility] Stop: 08/12/23 17:59 Last Admin: 07/15/23 23:14 Dose: 80 mls/hr Insulin Aspart (Insulin Aspart Per Unit Charge) 0 units SC ACHS [facility] Stop: 08/12/23 07:29 Last Admin: 07/16/23 07:35 Dose: Not Given Insulin Glargine (Lantus Per Unit Charge) 16 units SQ DAILY [facility] Stop: 08/12/23 08:59 Last Admin: 07/15/23 09:01 Dose: 16 units Lactobacillus Acidophilus (Advanced Probiotic 625 Mg Capsule) 1,250 mg PO DAILY [facility] Stop: 08/12/23 08:59 Last Admin: 07/15/23 09:08 Dose: 1,250 mg Loratadine (Loratadine 10 Mg Tab) 10 mg PO DAILY [facility] Stop: 08/12/23 08:59 Last Admin: 07/15/23 09:08 Dose: 10 mg Magnesium Oxide (Magnesium Oxide 400 Mg Tab) 400 mg PO QAM [facility] Stop: 08/14/23 08:59 Last Admin: 07/15/23 09:08 Dose: 400 mg Miscellaneous (Carbohydrates For Hypoglycemia ) 15 - 30 gm PO UD PRN PRN Reason: Hypoglycemia Protocol Stop: 08/11/23 22:56 Miscellaneous (Remove Nicoderm Patch) 1 each N/A DAILY@0859 [facility] Stop: 08/12/23 08:58 Last Admin: 07/15/23 09:15 Dose: 1 each Multivitamins/Minerals (Cerovite Adv Formula Tab) 1 tab PO DAILY [facility] Stop: 08/12/23 08:59 Last Admin: 07/15/23 09:08 Dose: 1 tab Nicotine (Nicotine 21 Mg/24 Hr Tdsy) 1 patch TD [facility] Stop: 08/12/23 08:59 Last Admin: 07/15/23 09:14 Dose: 1 patch Nifedipine (Nifedipine Extended Rel 30 Mg Tabcr) 60 mg PO DAILY [facility] Stop: 08/12/23 08:59 Last Admin: 07/15/23 09:09 Dose: 60 mg Nitroglycerin (Nitroglycerin Sl 0.4 Mg/Tab Tab) 0.4 mg SL Q5M PRN PRN Reason: Chest Pain Stop: 08/11/23 22:56 Pantoprazole Sodium (Pantoprazole 40 Mg Tab) 40 mg PO DAILY [facility] Stop: 08/12/23 08:59 Last Admin: 07/15/23 09:07 Dose: 40 mg Polyethylene Glycol (Polyethylene (Miralax) 17 Gm Pack) 17 gm PO DAILY PRN PRN Reason: Constipation Stop: 08/11/23 22:56 Thiamine HCl (Thiamine Hcl 100 Mg Tab) 100 mg PO QAM [facility] Stop: 08/13/23 10:44 Last Admin: 07/15/23 09:09 Dose: 100 mg Vitamin D (Cholecalciferol 25 Mcg (1000 Units) Tab) 100 mcg PO DAILY [facility] Stop: 08/12/23 08:59 Last Admin: 07/15/23 09:08 Dose: 100 mcg
[2023-07-16] MEDS: carvediloL 12.5 MG TAB PO SCH ×2 (09:51→16:44)
[2023-07-16] MEDS: NIFEdipine EXTENDED REL 30 MG TABCR PO SCH (09:51)
--- NOTE | 2023-07-16 10:03 | Nephrology Progress Note ---
Date of Service July 16, 2023 Assessment & Plan (1) ONDINA (acute kidney injury): Plan: favor ONDINA dx given some improvement in renal function w holding jardiance. ? if he is maintaining adequate po intake on this medication. UA w/ 3+ protein, glucose and no ketones; sg 1017 Creatinine downtrending 4.17 from 4.2 yesterday. Baseline creatinine of 2 > Stop fluids >cont to hold jardiance >agree w/ low K, carb consistent diet for now -strict I/O, daily bmp (2) CKD (chronic kidney disease) stage 4, GFR 15-29 ml/min: Plan: rapidly progressive CKD, high risk for ESRD. was CKD 3B per my late March note on review of [facility] and [facility] labs; but progressing CKD 4 at least since march. -continue supportive care >> will need to begin aggressive ESRD planning more than likely after d/c; not likely a home candidate given his tenuous psychosocial situation -Anjali;follow up on discharge (3) HTN (hypertension): Plan: Blood pressure is above target today. Will increase Coreg to 12.5 mg twice daily and nifedipine to 90 mg daily Admission and Anticipated Discharge Date Admission Date: July 12, 2023 Subjective Seen for ONDINA. No shortness of breath or leg swelling. Blood pressure is high today. Review of Systems 2 Review of Systems: All other systems were reviewed and negative except as noted in HPI Physical Exam 2 Physical Exam: General exam: Appears comfortable, no acute distress HEENT: Pupils are equal and reactive to light Neck: No JVD, neck is supple trachea is midline Respiratory system: Clear breath sounds bilaterally. Gastrointestinal: Abdomen is soft, non distended, non tender, bowel sounds are present CVS: Regular rate and rhythm. No murmurs, rubs or gallops Musculoskeletal: No joint or muscle tenderness Extremities: Non tender, no edema, peripheral pulses are present Neuro: Oriented, no tremors, no focal neurological deficits Skin: No rashes Results & Data Vital Signs (Past 12 Hours) Vital Signs Temp Pulse Pulse Resp BP Pulse Ox O2 Del Method 07/16/23 07:38 36.7 C 68 18 205/105 H 95 Room Air 07/16/23 07:19 72 07/16/23 03:03 36.7 C 56 L 18 168/85 H 95 Room Air 07/16/23 00:00 80 07/15/23 23:11 36.6 C 76 18 168/89 H 95 Room Air Laboratory Results 07/16/23 05:30 07/16/23 05:30 Phosphorus 5.0 H (3) HTN (hypertension) Hypertension type: primary hypertension Qualified Code(s): I10 - Essential (primary) hypertension
[2023-07-16] MEDS: carvediloL 6.25 MG TAB PO ONE (10:11)
[2023-07-16] MEDS: NIFEdipine EXTENDED REL 30 MG TABCR PO STA (10:11)
[2023-07-17 07:21] LABS: Hematocrit (blood only) 30.4 % (42.0-52.0); Hemoglobin 10.1 g/dl (14.0-18.0); Mean Corpuscular Hgb Conc 33.2 g/dL (32.0-36.0); Mean Corpuscular Volume 84.2 fL (80.0-100.0); Mean Platelet Volume 10.2 fL (9.4-12.4); Platelet Count 175 K/uL (130-400); RDW Coefficient of Variation 12.5 % (11.5-14.5); RDW Standard Deviation 38.5 fL (36.4-46.3); Red Blood Count 3.61 M/uL (4.70-6.10); White Blood Count 5.96 K/ul (4.8-10.8)
[2023-07-17 07:38] LABS: BUN Creatinine Ratio 14.8 (10-20); Calcium 8.3 mg/dl (8.6-10.3); Creatinine Clr Calc Pharmacy 21.7 ml/min; Est GFR (African American) 16.8 ml/min; Est GFR (Non-African American) 14.5 ml/min; Magnesium 1.7 mg/dl (1.7-2.4); Phosphorus 5.5 mg/dl (2.5-4.9); Potassium 4.4 mmol/L (3.5-5.1)
[2023-07-17] MEDS: NIFEdipine EXTENDED REL 30 MG TABCR PO SCH (07:51)
[2023-07-17] MEDS ORDERED: carvediloL 12.5 MG TAB PO SCH (09:00)
--- NOTE | 2023-07-17 09:03 | Hospitalist Progress Note ---
Date of Service July 17, 2023 Assessment & Plan (1) ONDINA (acute kidney injury): Plan: 58 yo M with past medical history significant for type 2 diabetes, hyperlipidemia, obstructive apnea seems noncompliant, pulmonary emphysema, hypertension, ischemic cardiomyopathy, history of CAD, CKD stage III/IV, fatty liver, persistent proteinuria, polyneuropathy, anemia, history of alcoholism, depression, generalized anxiety disorder, history of substance abuse, mild c ognitive impairment, food insecurity, was homeless before currently lives with a sister comes because of ONDINA. Patient outpatient labs were showing worsening kidney function and and was advised to come to the hospital. Patient says he is micturating okay. Denies any hematuria. No nausea or vomiting. No abdominal pain. Normal bowel movements. No chest pain or shortness of breath. Currently no swelling of the legs. Has dry skin. Appetite is okay. Denies any headache or dizziness. Has some runny nose from allergies. Denies any cough. States ambulating okay in the house. Currently living with his sister. Sister states his last alcohol drink was in December and he had a couple of drinks in February. Still smoking. Currently resting comfortably and hemodynamically stable. ONDINA on CKD stage III/IV Presents with creatinine of 4.7 -> 4.3 -> 4.5 -> 4.17 His creatinine was in the 2s in February 2023 Renal ultrasound obtained unremarkable Will monitor in the hospital Nephrology consulted, appreciate recommendations - was started on IV bicarb (now stopped), HTN - added coreg and doses increased Discussed w/ nephrology - treat as poss. ESRD - cont. to monitor - may need dialysis access Vasc. surg. consult placed for poss. HD access Hyperkalemia Potassium 5.3 on admission Low potassium diet Follow labs Metabolic acidosis CO2 19 Mostly from CKD Follow labs Nephrology consulted, started on bicarb - now off Diabetes Continue home Lantus. Hold Jardiance - this is not to be resumed Sliding scale Will monitor History of CAD Status post drug-eluting stents to in December 2018 On aspirin, statin History of polysubstance abuse History of alcoholism and was in rehab History of withdrawal seizures Currently not drinking Continue folic acid, thiamine will monitor. Ongoing tobacco abuse Counseling Nicotine patch Chronic systolic CHF EF 49% Not on diuretics We will monitor Obstructive sleep apnea Patient states not using CPAP for long time Will monitor Anemia Chronic Hemoglobin 10.2 Will follow labs Hypertension On nifedipine Coreg added by nephrology, doses increased Cont. to Monitor Hyperlipidemia On statin Depression General Anxiety disorder On duloxetine GERD - Protonix DVT prophylaxis - Heparin subcu Disposition - Telemetry Full code Admission and Anticipated Discharge Date Admission Date: July 12, 2023 Subjective Pt seen in follow up of ONDINA on CKD Currently laying in bed in NAD Has hx of alcoholism, homelessness, lived with his sister - now says he lives alone - just recently No fever, chills, chest pain, shortness of breath, abd. pain, n/v Nephrology consulted for ONDINA on CKD Discussed w/ nephrology - likely ESRD at this point - cont. to monitor - may need dialysis access placed, vasc. surgery consulted Review of Systems Review of Systems: All systems reviewed & are unremarkable except as noted in Subjective Physical Exam Physical Exam: General- WD/WN in NAD Head- atraumatic Eyes- PERRL. Neck- supple, no JVD. Lungs- clear to auscultation no wheezing or crackles. Heart- regular rhythm; no murmur Abdomen- normal bowel sounds, soft, nontender, no distension. Extremities- no pretibial edema, no erythema seen Neuro- alert, oriented x 3; PERRL, no facial palsy; no dysarthria; moves extremities. Skin- warm & dry Results & Data Results & Data Vital Signs (Past 12 Hours) Vital Signs Temp Pulse Pulse Resp BP Pulse Ox O2 Del Method 07/17/23 07:33 36.5 C 89 18 146/84 H 96 Room Air 07/17/23 02:54 37.0 C 64 18 157/85 H 93 Room Air 07/16/23 22:45 36.5 C 66 18 157/82 H 96 Room Air 07/16/23 22:00 70 Laboratory Results 07/17/23 07/17/23 07/16/23 Range/Units 07:27 06:32 19:41 WBC 5.96 (4.8-10.8) K/ul RBC 3.61 L (4.70-6.10) M/uL Hgb 10.1 L (14.0-18.0) g/dl Hct 30.4 L (42.0-52.0) % MCV 84.2 (80.0-100.0) fL MCH 28.0 (25.0-34.0) pg MCHC 33.2 (32.0-36.0) g/dL RDW Std Deviation 38.5 (36.4-46.3) fL RDW Coeff of Alberto 12.5 (11.5-14.5) % Plt Count 175 (130-400) K/uL MPV 10.2 (9.4-12.4) fL Sodium 137 (136-145) mmol/L Potassium 4.4 (3.5-5.1) mmol/L Chloride 107 (98-107) mmol/L Carbon Dioxide 21 (21-32) mmol/L Anion Gap 9 (3-11) BUN 62 H (6-23) mg/dl Creatinine 4.20 H (0.6-1.4) mg/dl Est Cr Clr Drug Dosing 21.7 ml/min Est GFR ( Amer) 16.8 ml/min Est GFR (Non-Af Amer) 14.5 ml/min BUN/Creatinine Ratio 14.8 (10-20) Glucose 93 (70-99(Fasting)) mg/dl POC Glucose 100 H 172 H (70-99) mg/dl Calcium 8.3 L (8.6-10.3) mg/dl Phosphorus 5.5 H (2.5-4.9) mg/dl Magnesium 1.7 (1.7-2.4) mg/dl 07/16/23 07/16/23 Range/Units 16:06 11:10 WBC (4.8-10.8) K/ul RBC (4.70-6.10) M/uL Hgb (14.0-18.0) g/dl Hct (42.0-52.0) % MCV (80.0-100.0) fL MCH (25.0-34.0) pg MCHC (32.0-36.0) g/dL RDW Std Deviation (36.4-46.3) fL RDW Coeff of Alberto (11.5-14.5) % Plt Count (130-400) K/uL MPV (9.4-12.4) fL Sodium (136-145) mmol/L Potassium (3.5-5.1) mmol/L Chloride (98-107) mmol/L Carbon Dioxide (21-32) mmol/L Anion Gap (3-11) BUN (6-23) mg/dl Creatinine (0.6-1.4) mg/dl Est Cr Clr Drug Dosing ml/min Est GFR ( Amer) ml/min Est GFR (Non-Af Amer) ml/min BUN/Creatinine Ratio (10-20) Glucose (70-99(Fasting)) mg/dl POC Glucose 161 H 136 H (70-99) mg/dl Calcium (8.6-10.3) mg/dl Phosphorus (2.5-4.9) mg/dl Magnesium (1.7-2.4) mg/dl Medications Administered Current Inpatient Medications Acetaminophen (Acetaminophen 325 Mg Tab) 650 mg PO Q4H PRN PRN Reason: Pain or Fever Stop: 08/11/23 22:56 Aspirin (Aspirin 81 Mg Ectab) 81 mg PO BID [facility] Stop: 08/12/23 08:59 Last Admin: 07/17/23 07:54 Dose: 81 mg Atorvastatin Calcium (Atorvastatin 40 Mg Tab) 80 mg PO HS [facility] Stop: 08/12/23 20:59 Last Admin: 07/16/23 20:41 Dose: 80 mg Carvedilol (Carvedilol 12.5 Mg Tab) 12.5 mg PO BIDM [facility] Stop: 08/15/23 16:59 Last Admin: 07/17/23 07:51 Dose: 12.5 mg Dextrose (Dextrose 50% 50 Ml Syringe) 25 - 50 ml IV UD PRN; Protocol PRN Reason: Hypoglycemia Protocol Stop: 08/11/23 22:56 Duloxetine HCl (Duloxetine Hcl 30 Mg Cap) 30 mg PO DAILY [facility] Stop: 08/12/23 08:59 Last Admin: 07/17/23 07:51 Dose: 30 mg Folic Acid (Folic Acid 1 Mg Tab) 1 mg PO DAILY [facility] Stop: 08/12/23 08:59 Last Admin: 07/17/23 07:54 Dose: 1 mg Glucagon (Glucagon For Inj 1 Mg Vial) 1 mg SQ UD PRN; Protocol PRN Reason: Hypoglycemia Protocol Stop: 08/11/23 22:56 Glucose (Glucose 10 Tab/Tube) 4 - 8 tab PO UD PRN; Protocol PRN Reason: Hypoglycemia Treatment Stop: 08/11/23 22:56 Glucose (Glucose 40% Gel 15 Gm Tube) 15 - 30 gm PO UD PRN; Protocol PRN Reason: Hypoglycemia Protocol Stop: 05/24/24 22:56 Heparin Sodium (Porcine) (Heparin Sod 5,000 Unit/0.5 Ml Vial) 5,000 units SQ Q8 [facility] Stop: 08/11/23 22:56 Last Admin: 07/17/23 05:23 Dose: 5,000 units Hydralazine HCl (Hydralazine 10 Mg Tab) 10 mg PO Q4H PRN PRN Reason: Hypertension Stop: 08/12/23 17:59 Last Admin: 07/15/23 13:01 Dose: 10 mg Insulin Aspart (Insulin Aspart Per Unit Charge) 0 units SC ACHS [facility] Stop: 08/12/23 07:29 Last Admin: 07/17/23 07:47 Dose: Not Given Insulin Glargine (Lantus Per Unit Charge) 16 units SQ DAILY [facility] Stop: 08/12/23 08:59 Last Admin: 07/17/23 08:38 Dose: 16 units Lactobacillus Acidophilus (Advanced Probiotic 625 Mg Capsule) 1,250 mg PO DAILY [facility] Stop: 08/12/23 08:59 Last Admin: 07/17/23 07:52 Dose: 1,250 mg Loratadine (Loratadine 10 Mg Tab) 10 mg PO DAILY [facility] Stop: 08/12/23 08:59 Last Admin: 07/17/23 07:54 Dose: 10 mg Magnesium Oxide (Magnesium Oxide 400 Mg Tab) 400 mg PO QAM [facility] Stop: 08/14/23 08:59 Last Admin: 07/17/23 07:53 Dose: 400 mg Miscellaneous (Carbohydrates For Hypoglycemia ) 15 - 30 gm PO UD PRN PRN Reason: Hypoglycemia Protocol Stop: 08/11/23 22:56 Miscellaneous (Remove Nicoderm Patch) 1 each N/A DAILY@0859 [facility] Stop: 08/12/23 08:58 Last Admin: 07/17/23 07:51 Dose: 1 each Multivitamins/Minerals (Cerovite Adv Formula Tab) 1 tab PO DAILY [facility] Stop: 08/12/23 08:59 Last Admin: 07/17/23 07:52 Dose: 1 tab Nicotine (Nicotine 21 Mg/24 Hr Tdsy) 1 patch TD QAM [facility] Stop: 08/12/23 08:59 Last Admin: 07/17/23 07:50 Dose: 1 patch Nifedipine (Nifedipine Extended Rel 30 Mg Tabcr) 90 mg PO DAILY [facility] Stop: 08/16/23 08:59 Last Admin: 07/17/23 07:51 Dose: 90 mg Nitroglycerin (Nitroglycerin Sl 0.4 Mg/Tab Tab) 0.4 mg SL Q5M PRN PRN Reason: Chest Pain Stop: 08/11/23 22:56 Pantoprazole Sodium (Pantoprazole 40 Mg Tab) 40 mg PO DAILY [facility] Stop: 08/12/23 08:59 Last Admin: 07/17/23 07:52 Dose: 40 mg Polyethylene Glycol (Polyethylene (Miralax) 17 Gm Pack) 17 gm PO DAILY PRN PRN Reason: Constipation Stop: 08/11/23 22:56 Thiamine HCl (Thiamine Hcl 100 Mg Tab) 100 mg PO QAM [facility] Stop: 08/13/23 10:44 Last Admin: 07/17/23 07:54 Dose: 100 mg Vitamin D (Cholecalciferol 25 Mcg (1000 Units) Tab) 100 mcg PO DAILY [facility] Stop: 08/12/23 08:59 Last Admin: 07/17/23 07:53 Dose: 100 mcg
--- NOTE | 2023-07-17 09:32 | Nephrology Progress Note ---
Date of Service July 17, 2023 Assessment & Plan Admission and Anticipated Discharge Date Admission Date: July 12, 2023 Subjective Assessment & Plan (1) ONDINA (acute kidney injury): Plan: favor ONDINA dx given some improvement in renal function w holding jardiance. ? if he is maintaining adequate po intake on this medication. UA w/ 3+ protein, glucose and no ketones; sg 1017 Creatinine downtrending. Baseline creatinine of 2 cont to hold jardiance--would not use this drug in him ever. Alcohol abuse, homelessness and Social Situation. agree w/ low K, carb consistent diet for now strict I/O, daily bmp (2) CKD (chronic kidney disease) stage 4, GFR 15-29 ml/min: Plan: rapidly progressive CKD, high risk for ESRD. was CKD 3B late March note on review of [facility] and [facility] labs; but progressing CKD 4 at least since march. -continue supportive care >> will need to begin aggressive ESRD planning more than likely after d/c; not a home dialysis candidate given his horrible psychosocial situation -Renal follow up on discharge In fact can make an argument that he can have AVF done while inpt. very hard to get him to come for outpt f/u and get the surgery done (3) HTN (hypertension): Plan: Blood pressure is above target today. Will increase Coreg to 12.5 mg twice daily and nifedipine to 90 mg daily Subjective Seen for ONDINA. No shortness of breath or leg swelling. Blood pressure is fair today. Review of Systems Review of Systems: All other systems were reviewed and negative except as noted in HPI Physical Exam Physical Exam: General exam: Appears comfortable, no acute distress HEENT: Pupils are equal and reactive to light Neck: No JVD, neck is supple trachea is midline Respiratory system: Clear breath sounds bilaterally. Gastrointestinal: Abdomen is soft, non distended, non tender, bowel sounds are present CVS: Regular rate and rhythm. No murmurs, rubs or gallops Musculoskeletal: No joint or muscle tenderness Extremities: Non tender, no edema, peripheral pulses are present Neuro: Oriented, no tremors, no focal neurological deficits Skin: No rashes Results & Data Vital Signs (Past 12 Hours) Vital Signs Temp Pulse Pulse Resp BP Pulse Ox O2 Del Method 07/17/23 07:33 36.5 C 89 18 146/84 H 96 Room Air 07/17/23 02:54 37.0 C 64 18 157/85 H 93 Room Air 07/16/23 22:45 36.5 C 66 18 157/82 H 96 Room Air 07/16/23 22:00 70
--- NOTE | 2023-07-17 17:29 | Ultrasound Report ---
ULTRASOUND BILATERAL UPPER EXTREMITY FOR VENOUS MAPPING CLINICAL HISTORY: End-stage renal disease. COMPARISON STUDY: No priors. TECHNIQUE: Real-time grayscale and color Doppler sonography of the veins of the right and left upper extremities performed for the purposes of venous mapping. FINDINGS: There is superficial venous thrombus identified in the left basilic vein in the distal upper extremit y extending into the forearm. This is not visualized proximally. The left cephalic vein as well as th e right basilic and cephalic veins are patent. The left cephalic vein was not visualized in the antec ubital fossa. The left cephalic vein ranges in size between 3 to 5 mm. The right cephalic vein ranges in size between 3 to 6 mm. The right basilic vein ranges in size between 2 to 8 mm. IMPRESSION: 1. There is occlusive superficial venous thrombus within the basilic vein. 2. Venous mapping as above. Dictated: 07/17/2023 4:26 PM Transcribed: 07/17/2023 4:36 PM Lucy [id number] [id number] Electronically signed by: Ivan Sprague M.D. 07/17/2023 5:27 PM
[2023-07-18 07:28] LABS: Hematocrit (blood only) 29.2 % (42.0-52.0); Hemoglobin 9.7 g/dl (14.0-18.0); Mean Corpuscular Hemoglobin 28.2 pg (25.0-34.0); Mean Corpuscular Hgb Conc 33.2 g/dL (32.0-36.0); Mean Corpuscular Volume 84.9 fL (80.0-100.0); Platelet Count 173 K/uL (130-400); RDW Coefficient of Variation 12.5 % (11.5-14.5); RDW Standard Deviation 38.2 fL (36.4-46.3); Red Blood Count 3.44 M/uL (4.70-6.10); White Blood Count 6.41 K/ul (4.8-10.8)
[2023-07-18 07:54] LABS: BUN Creatinine Ratio 14.4 (10-20); Est GFR (African American) 16.9 ml/min; Est GFR (Non-African American) 14.6 ml/min; Magnesium 1.8 mg/dl (1.7-2.4); Phosphorus 5.2 mg/dl (2.5-4.9); Potassium 4.2 mmol/L (3.5-5.1)
--- NOTE | 2023-07-18 08:16 | Hospitalist Progress Note ---
Date of Service July 18, 2023 Assessment & Plan (1) ONDINA (acute kidney injury): Plan: 58 yo M with past medical history significant for type 2 diabetes, hyperlipidemia, obstructive apnea seems noncompliant, pulmonary emphysema, hypertension, ischemic cardiomyopathy, history of CAD, CKD stage III/IV, fatty liver, persistent proteinuria, polyneuropathy, anemia, history of alcoholism, depression, generalized anxiety disorder, history of substance abuse, mild c ognitive impairment, food insecurity, was homeless before currently lives with a sister comes because of ONDINA. Patient outpatient labs were showing worsening kidney function and and was advised to come to the hospital. Patient says he is micturating okay. Denies any hematuria. No nausea or vomiting. No abdominal pain. Normal bowel movements. No chest pain or shortness of breath. Currently no swelling of the legs. Has dry skin. Appetite is okay. Denies any headache or dizziness. Has some runny nose from allergies. Denies any cough. States ambulating okay in the house. Currently living with his sister. Sister states his last alcohol drink was in December and he had a couple of drinks in February. Still smoking. Currently resting comfortably and hemodynamically stable. ONDINA on CKD stage III/IV Presents with creatinine of 4.7 -> 4.3 -> 4.5 -> 4.17 His creatinine was in the 2s in February 2023 Renal ultrasound obtained unremarkable Will monitor in the hospital Nephrology consulted, appreciate recommendations - was started on IV bicarb (now stopped), HTN - added coreg and doses increased Discussed w/ nephrology - treat as poss. ESRD - cont. to monitor - may need dialysis access Vasc. surg. consult placed for poss. HD access - plan for procedure as outpt Discussed w/ nephrology - pt with difficult outpt follow ups. Contacted pt' sister - she will help arrange / transport pt to his needed appointments as long as she knows about them. Asks to be called by schedulers so that she is informed about his follow up appointments/ procedures. She confirms that pt himself can not keep track and stay organized/ can not remember his appointments - sister needs to be called and stay informed. I also contacted Leatha Butler from vascular surg. to please let her schedulers know to contact the pt's sister. Hyperkalemia Potassium 5.3 on admission Low potassium diet Follow labs Metabolic acidosis CO2 19 Mostly from CKD Follow labs Nephrology consulted, started on bicarb - now off Diabetes Continue home Lantus. Hold Jardiance - this is not to be resumed Sliding scale Will monitor History of CAD Status post drug-eluting stents to in December 2018 On aspirin, statin History of polysubstance abuse History of alcoholism and was in rehab History of withdrawal seizures Currently not drinking Continue folic acid, thiamine will monitor. Ongoing tobacco abuse Counseling Nicotine patch Chronic systolic CHF EF 49% Not on diuretics We will monitor Obstructive sleep apnea Patient states not using CPAP for long time Will monitor Anemia Chronic Hemoglobin 10.2 Will follow labs Hypertension On nifedipine Coreg added by nephrology, doses increased. In addition hydralazine also started to control BP. Cont. to Monitor Hyperlipidemia On statin Depression General Anxiety disorder On duloxetine GERD - Protonix DVT prophylaxis - Heparin subcu Disposition - Plan to DC home today w/ close PCP, and nephrology follow up , also vasc. surgery follow up planned Admission and Anticipated Discharge Date Admission Date: July 12, 2023 Subjective Pt seen in follow up of ONDINA on CKD Currently laying in bed in NAD Has hx of alcoholism, homelessness, lived with his sister - now says he lives alone - just recently No fever, chills, chest pain, shortness of breath, abd. pain, n/v Nephrology consulted for ONDINA on CKD Discussed w/ nephrology - likely ESRD at this point - will need dialysis access placed, vasc. surgery consulted - plan for outpt procedure Discussed w/ nephrology - pt with difficult outpt follow ups. Contacted pt' sister - she will help arrange / transport pt to his needed appointments as long as she knows about them. Asks to be called by schedulers so that she is informed about his follow up appointments/ procedures. She confirms that pt himself can not keep track and stay organized/ can not remember his appointments - sister needs to be called and stay informed. I also contacted Leatha Butler from vascular surg. to please let her schedulers know to contact the pt's sister. Review of Systems Review of Systems: All systems reviewed & are unremarkable except as noted in Subjective Physical Exam Physical Exam: General- WD/WN in NAD Head- atraumatic Eyes- PERRL. Neck- supple, no JVD. Lungs- clear to auscultation no wheezing or crackles. Heart- regular rhythm; no murmur Abdomen- normal bowel sounds, soft, nontender, no distension. Extremities- no pretibial edema, no erythema seen Neuro- alert, oriented x 3; PERRL, no facial palsy; no dysarthria; moves extremities. Skin- warm & dry Results & Data Results & Data Vital Signs (Past 12 Hours) Vital Signs Temp Pulse Pulse Resp BP Pulse Ox O2 Del Method 07/18/23 07:37 36.6 C 65 18 174/91 H 94 Room Air 07/18/23 03:06 36.5 C 65 18 176/87 H 92 Room Air 07/17/23 22:35 36.5 C 66 18 168/86 H 94 Room Air 07/17/23 22:00 66 07/17/23 20:30 Room Air Laboratory Results 07/18/23 07/18/23 07/17/23 Range/Units 07:34 07:08 20:09 WBC 6.41 (4.8-10.8) K/ul RBC 3.44 L (4.70-6.10) M/uL Hgb 9.7 L (14.0-18.0) g/dl Hct 29.2 L (42.0-52.0) % MCV 84.9 (80.0-100.0) fL MCH 28.2 (25.0-34.0) pg MCHC 33.2 (32.0-36.0) g/dL RDW Std Deviation 38.2 (36.4-46.3) fL RDW Coeff of Alberto 12.5 (11.5-14.5) % Plt Count 173 (130-400) K/uL MPV 10.0 (9.4-12.4) fL Sodium 137 (136-145) mmol/L Potassium 4.2 (3.5-5.1) mmol/L Chloride 108 H (98-107) mmol/L Carbon Dioxide 21 (21-32) mmol/L Anion Gap 8 (3-11) BUN 60 H (6-23) mg/dl Creatinine 4.17 H (0.6-1.4) mg/dl Est Cr Clr Drug Dosing 22.0 ml/min Est GFR ( Amer) 16.9 ml/min Est GFR (Non-Af Amer) 14.6 ml/min BUN/Creatinine Ratio 14.4 (10-20) Glucose 97 (70-99(Fasting)) mg/dl POC Glucose 101 H 134 H (70-99) mg/dl Calcium 8.0 L (8.6-10.3) mg/dl Phosphorus 5.2 H (2.5-4.9) mg/dl Magnesium 1.8 (1.7-2.4) mg/dl 07/17/23 07/17/23 Range/Units 16:24 11:34 WBC (4.8-10.8) K/ul RBC (4.70-6.10) M/uL Hgb (14.0-18.0) g/dl Hct (42.0-52.0) % MCV (80.0-100.0) fL MCH (25.0-34.0) pg MCHC (32.0-36.0) g/dL RDW Std Deviation (36.4-46.3) fL RDW Coeff of Alberto (11.5-14.5) % Plt Count (130-400) K/uL MPV (9.4-12.4) fL Sodium (136-145) mmol/L Potassium (3.5-5.1) mmol/L Chloride (98-107) mmol/L Carbon Dioxide (21-32) mmol/L Anion Gap (3-11) BUN (6-23) mg/dl Creatinine (0.6-1.4) mg/dl Est Cr Clr Drug Dosing ml/min Est GFR ( Amer) ml/min Est GFR (Non-Af Amer) ml/min BUN/Creatinine Ratio (10-20) Glucose (70-99(Fasting)) mg/dl POC Glucose 162 H 184 H (70-99) mg/dl Calcium (8.6-10.3) mg/dl Phosphorus (2.5-4.9) mg/dl Magnesium (1.7-2.4) mg/dl Medications Administered Current Inpatient Medications Acetaminophen (Acetaminophen 325 Mg Tab) 650 mg PO Q4H PRN PRN Reason: Pain or Fever Stop: 08/11/23 22:56 Aspirin (Aspirin 81 Mg Ectab) 81 mg PO BID LUCINDA Stop: 08/12/23 08:59 Last Admin: 07/17/23 20:03 Dose: 81 mg Atorvastatin Calcium (Atorvastatin 40 Mg Tab) 80 mg PO HS LUCINDA Stop: 08/12/23 20:59 Last Admin: 07/17/23 20:02 Dose: 80 mg Carvedilol (Carvedilol 12.5 Mg Tab) 12.5 mg PO BIDM LUCINDA Stop: 08/15/23 16:59 Last Admin: 07/17/23 17:27 Dose: 12.5 mg Dextrose (Dextrose 50% 50 Ml Syringe) 25 - 50 ml IV UD PRN; Protocol PRN Reason: Hypoglycemia Protocol Stop: 08/11/23 22:56 Duloxetine HCl (Duloxetine Hcl 30 Mg Cap) 30 mg PO DAILY LUCINDA Stop: 08/12/23 08:59 Last Admin: 07/17/23 07:51 Dose: 30 mg Folic Acid (Folic Acid 1 Mg Tab) 1 mg PO DAILY LUCINDA Stop: 08/12/23 08:59 Last Admin: 07/17/23 07:54 Dose: 1 mg Glucagon (Glucagon For Inj 1 Mg Vial) 1 mg SQ UD PRN; Protocol PRN Reason: Hypoglycemia Protocol Stop: 08/11/23 22:56 Glucose (Glucose 10 Tab/Tube) 4 - 8 tab PO UD PRN; Protocol PRN Reason: Hypoglycemia Treatment Stop: 08/11/23 22:56 Glucose (Glucose 40% Gel 15 Gm Tube) 15 - 30 gm PO UD PRN; Protocol PRN Reason: Hypoglycemia Protocol Stop: 08/11/23 22:56 Heparin Sodium (Porcine) (Heparin Sod 5,000 Unit/0.5 Ml Vial) 5,000 units SQ Q8 LUCINDA Stop: 08/11/23 22:56 Last Admin: 07/18/23 06:00 Dose: 5,000 units Hydralazine HCl (Hydralazine 10 Mg Tab) 10 mg PO Q4H PRN PRN Reason: Hypertension Stop: 08/12/23 17:59 Last Admin: 07/18/23 06:00 Dose: 10 mg Insulin Aspart (Insulin Aspart Per Unit Charge) 0 units SC ACHS [facility] Stop: 08/12/23 07:29 Last Admin: 07/17/23 20:15 Dose: 2 units Insulin Glargine (Lantus Per Unit Charge) 16 units SQ DAILY LUCINDA Stop: 08/12/23 08:59 Last Admin: 07/17/23 08:38 Dose: 16 units Lactobacillus Acidophilus (Advanced Probiotic 625 Mg Capsule) 1,250 mg PO DAILY LUCINDA Stop: 08/12/23 08:59 Last Admin: 07/17/23 07:52 Dose: 1,250 mg Loratadine (Loratadine 10 Mg Tab) 10 mg PO DAILY [facility] Stop: 08/12/23 08:59 Last Admin: 07/17/23 07:54 Dose: 10 mg Magnesium Oxide (Magnesium Oxide 400 Mg Tab) 400 mg PO QAM LUCINDA Stop: 08/14/23 08:59 Last Admin: 07/17/23 07:53 Dose: 400 mg Miscellaneous (Carbohydrates For Hypoglycemia ) 15 - 30 gm PO UD PRN PRN Reason: Hypoglycemia Protocol Stop: 08/11/23 22:56 Miscellaneous (Remove Nicoderm Patch) 1 each N/A DAILY@0859 [facility] Stop: 08/12/23 08:58 Last Admin: 07/17/23 07:51 Dose: 1 each Multivitamins/Minerals (Cerovite Adv Formula Tab) 1 tab PO DAILY LUCINDA Stop: 08/12/23 08:59 Last Admin: 07/17/23 07:52 Dose: 1 tab Nicotine (Nicotine 21 Mg/24 Hr Tdsy) 1 patch TD QAM [facility] Stop: 08/12/23 08:59 Last Admin: 07/17/23 07:50 Dose: 1 patch Nifedipine (Nifedipine Extended Rel 30 Mg Tabcr) 90 mg PO DAILY [facility] Stop: 08/16/23 08:59 Last Admin: 07/17/23 07:51 Dose: 90 mg Nitroglycerin (Nitroglycerin Sl 0.4 Mg/Tab Tab) 0.4 mg SL Q5M PRN PRN Reason: Chest Pain Stop: 08/11/23 22:56 Pantoprazole Sodium (Pantoprazole 40 Mg Tab) 40 mg PO DAILY [facility] Stop: 08/12/23 08:59 Last Admin: 07/17/23 07:52 Dose: 40 mg Polyethylene Glycol (Polyethylene (Miralax) 17 Gm Pack) 17 gm PO DAILY PRN PRN Reason: Constipation Stop: 08/11/23 22:56 Thiamine HCl (Thiamine Hcl 100 Mg Tab) 100 mg PO QAM [facility] Stop: 08/13/23 10:44 Last Admin: 07/17/23 07:54 Dose: 100 mg Vitamin D (Cholecalciferol 25 Mcg (1000 Units) Tab) 100 mcg PO DAILY [facility] Stop: 08/12/23 08:59 Last Admin: 07/17/23 07:53 Dose: 100 mcg
--- NOTE | 2023-07-18 10:44 | Consultation ---
Date of Consultation July 18, 2023 Assessment & Plan (1) CKD (chronic kidney disease) stage 4, GFR 15-29 ml/min: Pt with CKD 4, requested to see pt to discuss AVF creation. Recommend R wrist radiocephalic AVF creation. Procedure discussed at length with pt, he is agreeable. Unfortunately, Dr Elias's schedule this week is filled and this is not an urgent procedure, so will tentatively plan for next week in [place]. If pt d/c prior to then, outpt arrangements can be made. Protect R arm. Pt aware of plan and agreeable. History of Present Illness Reason for Consultation: CKD, need AVF Creation Attending Physician: Germain Munoz MD History of Present Illness 58 yo m with hx of ETOH abuse, CKD, HTN, cardiomyopathy, CAD, DMII, CATALINO, anemia, CHF, neuropathy, NSTEMI, admitted with ONDINA, seen in consultation today to discuss AVF creation. Pt not currently on HD. Pt followed by [facility] nephrology, who has concerns regarding outpt f/u d/t chronic psychosocial issues. Pt states is left handed and prefers to have AVF in R arm if possible. Pt admits fatigue/malaise. Denies HORVATH, fever, chest pain, SOB, abd pain, N/V, rest pain, claudication, other complaints. BUE vein mapping US demonstrates adequate cephalic veins throughout both UE. Allergies Allergy/AdvReac Type Severity Reaction Status Date / Time pollen extracts Allergy Intermediate SNEEZING, Verified 07/12/23 20:39 CONGESTION Home Medications Medication Instructions Recorded Confirmed Type atorvastatin 80 mg tablet 80 mg PO HS 10/25/21 07/12/23 History nitroglycerin 0.4 mg sublingual 0.4 mg sublingual DIRECTED PRN 09/23/22 07/12/23 History tablet Chest Pain aspirin 81 mg tablet,delayed 81 mg PO BID #60 tabs 11/15/22 07/12/23 Rx release duloxetine 30 mg capsule,delayed 30 mg PO DAILY 03/27/23 07/12/23 History release empagliflozin 10 mg tablet 10 mg PO DAILY #30 tabs 03/27/23 07/12/23 Rx insulin lispro 100 unit/mL 5 unit (0.05 mL) subcut TID #15 mL 03/27/23 07/12/23 Rx subcutaneous pen (Humalog KwikPen (U-100) Insulin) [id number] 120 mcg-lutein 1 tab PO DAILY 03/27/23 07/12/23 History 150 mcg-herb 50 mg chewable tablet (Alive Men's 50 Plus Multivitamin) nifedipine 60 mg tablet,extended 60 mg PO DAILY 03/27/23 07/12/23 History release pantoprazole 40 mg tablet,delayed 40 mg PO DAILY 03/27/23 07/12/23 History release Lantus Solostar U-100 Insulin 100 16 unit (0.16 mL) subcut DAILY #15 03/29/23 07/12/23 Rx unit/mL (3 mL) subcutaneous pen mL (insulin glargine) blood-glucose sensor (Virtual DBS G7 #3 ea 04/18/23 07/12/23 Rx Sensor device) pen needle, diabetic 32 gauge x #150 ea 04/18/23 07/12/23 Rx 5/32" (BD Arpita 2nd Gen Pen Needle) cholecalciferol (vitamin D3) 50 100 mcg PO DAILY 06/27/23 07/12/23 History mcg (2,000 unit) capsule citalopram 10 mg tablet (Celexa) 0 mg PO DAILY 07/12/23 07/12/23 History desloratadine 5 mg tablet 5 mg PO DAILY 07/12/23 07/12/23 History folic acid 1 mg tablet 1 mg PO DAILY 07/12/23 07/12/23 History lactobacillus combination no.4 3 3,000 mmu cells PO DAILY 07/12/23 07/12/23 History billion cell capsule (Probiotic) Patient History Medical History CKD (chronic kidney disease) stage 4, GFR 15-29 ml/min Encounter for pre-operative examination ONDINA (acute kidney injury) Alcohol use disorder, severe, dependence Alcohol withdrawal syndrome CATALINO (obstructive sleep apnea) Chronic anemia Proteinuria Bilateral edema of lower extremity TONEY (dyspnea on exertion) Discharge planning issues Smoking Diabetes mellitus type 2 with complications Ischemic cardiomyopathy DVT prophylaxis Hypomagnesemia Alcohol abuse Mood disorder Obesity NSTEMI (non-ST elevated myocardial infarction) Tobacco use disorder Neuropathy Type 2 diabetes mellitus HTN (hypertension) Surgical History History of cardiac catheterization 1 ELIESER to proximal OM by Dr. Guerrero on 01/01/19 History of lymph node biopsy Family History Other Diabetes Heart disease Hypertension Social History Smoking Status: Current every day smoker Tobacco Type: Cigarettes Cigarettes Per Day: 1/2 pack a day; Second Hand Exposure: No; Do You Dip or Chew Tobacco: No; Hx Alcohol Use: No Hx Substance Use: No Preferred Language: Serbian Communication Ability: Effective Sifter And Miller Required: No Beliefs That Will Affect Care: None marital status: Single Current Living Situation: Alone Current Living Situation Comment: Living in car current occupational status: unemployed How many Children do You have: 2 Feels Safe at Home: Yes Safety Concerns: Feels Safe At This Time Assistive Devices: None Review of Systems Review of Systems: All systems reviewed & are unremarkable except as noted in HPI & below Physical Exam Constitutional: WD/WN, vitals as above + disheveled, cooperative and comfortable; not in distress Neck: trachea midline Respiratory: normal respiratory effort, lungs clear to auscultation Auscultation: + diminished lung sounds Cardiovascular: Rate/Rhythm: regular rate and regular rhythm Vessels: femoral pulses present, posterior tibial pulses present, dorsalis pedis pulses present and radial pulses present; + abnormal peripheral pulses Extremities: normal capillary refill; no edema Gastrointestinal (Abdomen): Inspection/Auscultation: abdomen normal to inspection and normal bowel sounds Percussion/Palpation: abdomen soft; abdomen nontender Musculoskeletal: no cyanosis or clubbing, extremities motor strength 5/5 Skin: no rashes, warm and dry Neurologic: moves all extremities and awake; no focal motor deficits and not confused Psychiatric: A+Ox3, euthymic affect Results & Data Vital Signs (Past 12 Hours) Vital Signs Temp Pulse Pulse Resp BP Pulse Ox O2 Del Method 07/18/23 08:47 67 07/18/23 07:37 36.6 C 65 18 174/91 H 94 Room Air 07/18/23 03:06 36.5 C 65 18 176/87 H 92 Room Air 07/17/23 22:35 36.5 C 66 18 168/86 H 94 Room Air
--- NOTE | 2023-07-18 11:05 | Nephrology Progress Note ---
Date of Service July 18, 2023 Assessment & Plan Admission and Anticipated Discharge Date Admission Date: July 12, 2023 Subjective Assessment & Plan (1) ONDINA (acute kidney injury): Plan: Some role of jardiance mediated volume issue but more likely just progression of CKD and will manage accordingly. Creatinine downtrending but seems to have stalled in the low 4's now. cont to hold jardiance--would not use this drug in him ever. Alcohol abuse, homelessness and Social Situation. agree w/ low K, carb consistent diet for now strict I/O, daily bmp He needs to have follow up with nephrology Next week with renal Panel, CBC. Transport arrangement needs to be made to have AVF Surgery on Monday--if sister cannot take him then Maybe [facility] /[facility] needs to be arranged. (2) CKD (chronic kidney disease) stage 4, GFR 15-29 ml/min: Plan: rapidly progressive CKD, high risk for ESRD. was CKD 3B late March note on review of [facility] and [facility] labs; but progressing CKD 4 at least since march. (3) HTN (hypertension): Plan: Blood pressure is above target today but is erratic. add hydralazine 25 bid Subjective Seen for ONDINA on CKD 4. No shortness of breath or leg swelling. Blood pressure is high today. was seen by vascular surgery Review of Systems Review of Systems: All other systems were reviewed and negative except as noted in HPI Physical Exam Physical Exam: General exam: Appears comfortable, no acute distress HEENT: Pupils are equal and reactive to light Neck: No JVD, neck is supple trachea is midline Respiratory system: Clear breath sounds bilaterally. Gastrointestinal: Abdomen is soft, non distended, non tender, bowel sounds are present CVS: Regular rate and rhythm. No murmurs, rubs or gallops Musculoskeletal: No joint or muscle tenderness Extremities: Non tender, no edema, peripheral pulses are present Neuro: Oriented, no tremors, no focal neurological deficits Skin: No rashes Results & Data Vital Signs (Past 12 Hours) Vital Signs Temp Pulse Pulse Resp BP Pulse Ox O2 Del Method 07/18/23 10:46 Room Air 07/18/23 08:47 67 07/18/23 07:37 36.6 C 65 18 174/91 H 94 Room Air 07/18/23 03:06 36.5 C 65 18 176/87 H 92 Room Air
[2023-07-18] MEDS: hydrALAZINE HCL 25 MG TAB PO SCH (12:29)
--- NOTE | 2023-07-18 13:19 | Discharge Summary ---
Date of Service July 18, 2023 Admission HPI Per Admitting Provider 58-year-old male with past medical history significant for type 2 diabetes, hyperlipidemia, obstructive apnea seems noncompliant, pulmonary emphysema, hypertension, ischemic cardiomyopathy, history of CAD, CKD stage III/IV, fatty liver, persistent proteinuria, polyneuropathy, anemia, history of alcoholism, depression, generalized anxiety disorder, history of substance abuse, mild cognitive impairment, food insecurity, was homeless before currently lives with a sister comes because of ONDINA. Patient outpatient labs were showing worsening kidney function and and was advised to come to the hospital. Patient says he is micturating okay. Denies any hematuria. No nausea or vomiting. No abdominal pain. Normal bowel movements. No chest pain or shortness of breath. Currently no swelling of the legs. Has dry skin. Appetite is okay. Denies any headache or dizziness. Has some runny nose from allergies. Denies any cough. States ambulating okay in the house. Currently living with his sister. Sister states his last alcohol drink was in December and he had a couple of drinks in February. Still smoking. Currently resting comfortably and hemodynamically stable. Past med history. As mentioned above. Past surgical history. Colonoscopy. Social history. Smokes 2 packs a day for 40 years. History of chronic heavy alcohol use and was in rehab but currently not drinking. No drug use. Family history. Paternal grandmother had diabetes. Paternal grandfather had heart disorder. Maternal grandmother had heart disorder. Admission Exam Per Admitting Provider General- Not in distress Head- atraumatic Eyes- PERRL. ENT- oropharynx clear Neck- supple, no JVD. Lungs- clear to auscultation no wheezing or crackles. Heart- regular rhythm; no murmur, no gallop. Abdomen- normal bowel sounds, soft, nontender, no distension. Extremities- no pretibial edema, no erythema seen Neuro- alert, oriented x 3; PERRL, no facial palsy; no dysarthria; moves extremities. Skin- warm & dry Principal Diagnosis ONDINA on CKD / ESRD Discharge Exam General- WD/WN in NAD Head- atraumatic Eyes- PERRL. Neck- supple, no JVD. Lungs- clear to auscultation no wheezing or crackles. Heart- regular rhythm; no murmur Abdomen- normal bowel sounds, soft, nontender, no distension. Extremities- no pretibial edema, no erythema seen Neuro- alert, oriented x 3; PERRL, no facial palsy; no dysarthria; moves extremities. Skin- warm & dry Discharge Data Allergies Allergy/AdvReac Type Severity Reaction Status Date / Time pollen extracts Allergy Intermediate SNEEZING, Verified 07/12/23 20:39 CONGESTION Consultations 07/12/23 19:48 ED Decision to Admit Stat 07/13/23 08:00 Consult Nephrology Routine 07/17/23 11:00 Consult Vascular Surgery Routine Ordered Studies 07/12/23 18:46 US Renal Bladder [US renal/blad retro comp] Stat FINDINGS: Right kidney: The right kidney measures 10.4 x 5.0 x 5.0 cm. No stones. No hydronephrosis. Left kidney: The left kidney measures 11.6 x 7.0 x 5.7 cm. No stones. No hydronephrosis. Bladder: The visualized urinary bladder is unremarkable. Bilateral ureteral jets are visualized. IMPRESSION: Unremarkable renal ultrasound. 07/17/23 11:19 US venous mapping UE BI Routine FINDINGS: There is superficial venous thrombus identified in the left basilic vein in the distal upper extremity extending into the forearm. This is not visualized proximally. The left cephalic vein as well as the right basilic and cephalic veins are patent. The left cephalic vein was not visualized in the antecubital fossa. The left cephalic vein ranges in size between 3 to 5 mm. The right cephalic vein ranges in size between 3 to 6 mm. The right basilic vein ranges in size between 2 to 8 mm. IMPRESSION: 1. There is occlusive superficial venous thrombus within the basilic vein. 2. Venous mapping as above. Hospital Course (1) ONDINA (acute kidney injury): 58 yo M with past medical history significant for type 2 diabetes, hyperlipidemia, obstructive apnea seems noncompliant, pulmonary emphysema, hypertension, ischemic cardiomyopathy, history of CAD, CKD stage III/IV, fatty liver, persistent proteinuria, polyneuropathy, anemia, history of alcoholism, depression, generalized anxiety disorder, history of substance abuse, mild cognitive impairment, food insecurity, was homeless before currently lives with a sister comes because of ONDINA. Patient outpatient labs were showing worsening kidney function and and was advised to come to the hospital. Patient says he is micturating okay. Denies any hematuria. No nausea or vomiting. No abdominal pain. Normal bowel movements. No chest pain or shortness of breath. Currently no swelling of the legs. Has dry skin. Appetite is okay. Denies any headache or dizziness. Has some runny nose from allergies. Denies any cough. States ambulating okay in the house. Currently living with his sister. Sister states his last alcohol drink was in December and he had a couple of drinks in February. Still smoking. Currently resting comfortably and hemodynamically stable. ONDINA on CKD stage III/IV / ESRD Presents with creatinine of 4.7 -> 4.3 -> 4.5 -> 4.17 His creatinine was in the 2s in February 2023 Renal ultrasound obtained unremarkable Will monitor in the hospital Nephrology consulted, appreciate recommendations - was started on IV bicarb (now stopped), HTN - added coreg and doses increased Discussed w/ nephrology - treat as poss. ESRD - cont. to monitor - may need dial ysis access Vasc. surg. consult placed for poss. HD access - plan for procedure as outpt Discussed w/ nephrology - pt with difficult outpt follow ups. Contacted pt' sister - she will help arrange / transport pt to his needed appointments as long as she knows about them. Asks to be called by schedulers so that she is informed about his follow up appointments/ procedures. She confirms that pt himself can not keep track and stay organized/ can not remember his appointments - sister needs to be called and stay informed. I also contacted Leatha Butler from vascular surg. to please let her schedulers know to contact the pt's sister. Plan to follow up with nephrology next week, w/ BMP and CBC Hyperkalemia Potassium 5.3 on admission Low potassium diet Follow labs Metabolic acidosis CO2 19 Mostly from CKD Follow labs Nephrology consulted, started on bicarb - now off Diabetes Continue home Lantus. Hold Jardiance - this is not to be resumed Sliding scale Will monitor History of CAD Status post drug-eluting stents to in December 2018 On aspirin, statin History of polysubstance abuse History of alcoholism and was in rehab History of withdrawal seizures Currently not drinking Continue folic acid, thiamine will monitor. Ongoing tobacco abuse Counseling Nicotine patch Chronic systolic CHF EF 49% Not on diuretics We will monitor Obstructive sleep apnea Patient states not using CPAP for long time Will monitor Anemia Chronic Hemoglobin 10.2 Will follow labs Hypertension On nifedipine Coreg added by nephrology, doses increased. In addition hydralazine also started to control BP. Cont. to Monitor Hyperlipidemia On statin Depression General Anxiety disorder On duloxetine GERD - Protonix Disposition - Plan to DC home today w/ close PCP, and nephrology follow up , also vasc. surgery follow up planned Total Time Total Time Spent Total Time Spent (In Minutes): 60 Discharge Plan Discharge Items Patient Disposition: Home - Self-Care Reason For Visit: ONDINA Discharge Diagnosis: ONDINA on CKD / ESRD Activity: Per Instructions section Non-emergency contact: Primary Care Provider, Surgeon, Specialist and Cemetery Worker Call non-emergency contact if: you have any medication questions and your symptoms worsen Follow-up/Referrals: Amber Cornell MD, PhD [Physician] - (The Nephrology office will contact you for a follow up appointment. They would like to see you next week.) Charity Reed MD [Primary Care Provider] - (Date & Time 07/21/2023 9:00 AM Provider Charity Reed MD Department General Internal Medicine [facility] ) Micah Elias MD [Physician] - (The Vascular Surgery office will contact you for a follow up appointment/dialysis catheter consideration.) Diet: Dialysis Renal and Heart Healthy Addtl Attending Provider Instructions: Follow up with your primary care physician, cut off operator scorer and vascular surgeon. The appointment with your primary care doctor was scheduled for you for 07/21/2023. STOP taking Jardiance (empagliflozin). Your blood pressure has been elevated and so your medications were adjusted and some new added, please review the current list in detail. Carvedilol and hydralazine were added to your nifedepine. Monitor your blood pressure if you can, and record your numbers. Discuss your numbers with your doctor. You will be contacted about your appointment with nephrology (kidney doctor). You will also need blood work - BMP, and CBC for this appointment. Pending Studies at Discharge: No Stand-Alone Forms: My [employer], Smoking Cessation Medications and DC Order Prescriptions: New thiamine HCl (vitamin B1) 100 mg Tablet 100 mg PO QAM Qty: 30 0RF carvedilol 12.5 mg Tablet 12.5 mg PO BIDM Qty: 60 0RF nifedipine [Procardia XL] 30 mg Tablet Extended Release 24hr 90 mg PO DAILY Qty: 30 0RF hydralazine 25 mg Tablet 25 mg PO BID Qty: 60 0RF magnesium oxide 400 mg (241.3 mg magnesium) Tablet 400 mg PO QAM Qty: 10 0RF Continued insulin glargine [Lantus Solostar U-100 Insulin] 100 unit/mL (3 mL) insulin pen 16 unit subcut DAILY Qty: 15 3RF Rx Instructions: Inject 16 units into the abdomen once a day. Alive Men's 50 Plus Multivit 120 mcg-150 mcg -50 mg tablet,chewable 1 tab PO DAILY pantoprazole 40 mg tablet,delayed release (DR/EC) 40 mg PO DAILY duloxetine 30 mg capsule,delayed release(DR/EC) 30 mg PO DAILY insulin lispro [Humalog KwikPen Insulin] 100 unit/mL insulin pen 5 unit subcut TID Qty: 15 3RF Rx Instructions: Inject 5 units into the abdomen 10-15 minutes prior to meals. cholecalciferol (vitamin D3) 50 mcg (2,000 unit) capsule 100 mcg PO DAILY (DME) Dexcom G7 Sensor Device See Rx Instructions .Route Qty: 3 11RF Rx Instructions: Changeevery 10 days (DME) pen needle, diabetic [BD Arpita 2nd Gen Pen Needle] 32 gauge x 5/32" needle See Rx Instructions .ROUTE .MEDSUPPLY Qty: 150 11RF Rx Instructions: new pen needle 4x a day atorvastatin 80 mg tablet 80 mg PO HS nitroglycerin 0.4 mg tablet, sublingual 0.4 mg sublingual DIRECTED PRN (Reason: Chest Pain) aspirin 81 mg tablet,delayed release (DR/EC) 81 mg PO BID Qty: 60 0RF desloratadine 5 mg tablet 5 mg PO DAILY Rx Instructions: PT DID NOT IRON AND STEEL WORK SUPERVISOR FROM PHARMACY YET folic acid 1 mg Tablet 1 mg PO DAILY Rx Instructions: PT DID NOT IRON AND STEEL WORK SUPERVISOR FROM PHARMACY YET Probiotic 3 billion cell Capsule 3,000 mmu cells PO DAILY Rx Instructions: administer with a meal citalopram [Celexa] 10 mg Tablet 0 mg PO DAILY Rx Instructions: PT'S SPOUSE STATED "JUST STARTED 07/11/23, UNSURE OF STRENGTH". UNABLE TO VERIFY WITH [facility] OR EXT MED HX. Discontinued nifedipine 60 mg tablet extended release 60 mg PO DAILY empagliflozin 10 mg tablet 10 mg PO DAILY Qty: 30 3RF Rx Instructions: Take one tablet by mouth daily. Discharge Orders: Discharge Order (Routine); Ordered 07/18/23 Ordered By: Germain Campbell/Other Patient Handouts: Managing Type 2 Diabetes Admission Data Admit Date/Time: 07/12/23 21:37 Attending Provider: Germain Munoz Admit Provider: Jonathan Payne Primary Care Provider: Charity Reed Other Providers: Jonathan Payne; Amber Cornell; Micah Elias
== END 2023-07-18 15:22 | disposition home or self-care (01) | DRG 683 ==
LOC: ED 16:51 → EDINP 21:37 → 2S 07-13 15:16

== ENCOUNTER 2023-08-10 18:55 | Inpatient (IN) ==
--- NOTE | 2023-08-10 19:01 | ED Triage Note ---
Date of Service August 10, 2023 Provider in Triage Author: Dontae Kimble A History of Present Illness This patient was briefly evaluated while in triage. An abbreviated physical exam was performed. This patient is a 58-year-old Male who presents to the ED for evaluation of elevated potassium. Sent by Dr Christie. Has chronic kidney disease and is approaching dialysis. Had graft placed about 2 weeks ago. Blood work drawn this morning. Has diarrhea. Physical Exam Limited Triage Exam: VITALS: Vitals are noted on the nurse's note and reviewed by myself. Vital signs stable. GENERAL: Well-developed, well-nourished, white male, who is in no acute distress and resting comfortably. Patient is cooperative with the examination. HEART: Regular rate and rhythm without murmurs gallops or rubs. LUNGS: Clear to auscultation bilaterally without wheezes, rales or rhonchi. No retractions or accessory muscle use. NEURO: Patient was alert and oriented to person place and time. CN II through XII grossly intact. Initial orders for labs and / or imaging were placed and patient was placed in the waiting area until a bed is available. Please see further documentation for the full ED course. MDM / Impression Impression Impression: Acute renal insufficiency, Acute hyperkalemia, Anemia Impression: Anemia Qualifiers: Anemia type: unspecified type Qualified Code(s): D64.9 - Anemia, unspecified
[2023-08-10 19:22] LABS: Basophils # (auto) 0.05 K/uL (0.00-0.20); Basophils % (auto) 0.8 %; Eosinophils # (auto) 0.15 K/uL (0.00-0.50); Eosinophils % (auto) 2.3 %; Hematocrit (blood only) 28.9 % (42.0-52.0); Hemoglobin 9.3 g/dl (14.0-18.0); Immature Granulocytes # (auto) 0.01 K/uL (0.01-0.20); Immature Granulocytes % (auto) 0.2 %; Lymphocytes # (auto) 2.37 K/uL (1.20-3.40); Lymphocytes % (auto) 36.6 %; Mean Corpuscular Hemoglobin 28.2 pg (25.0-34.0); Mean Corpuscular Hgb Conc 32.2 g/dL (32.0-36.0); Mean Corpuscular Volume 87.6 fL (80.0-100.0); Mean Platelet Volume 10.2 fL (9.4-12.4); Monocytes # (auto) 0.58 K/uL (0.11-0.59); Neutrophils # (auto) 3.32 K/uL (1.40-6.50); Neutrophils % (auto) 51.1 %; Platelet Count 218 K/uL (130-400); RDW Coefficient of Variation 13.5 % (11.5-14.5); RDW Standard Deviation 42.9 fL (36.4-46.3); White Blood Count 6.48 K/ul (4.8-10.8)
--- NOTE | 2023-08-10 19:41 | Emergency Department Note ---
Impression & Plan Acute renal insufficiency, Acute hyperkalemia, Anemia ED Provider Note NAME: CARLOS NGO AGE: 58 SEX: M : 1965 ARRIVES VIA: Walk-In INFORMANT: Patient, ED PROVIDER(S): Maurice Kate DO CHIEF COMPLAINT: Elevated potassium HPI: The patient is a 58-year-old male who presented to the emergency department at the request of his primary hospital clerk. The patient has a history of renal insufficiency. He has a recently placed fistula in his right forearm. He has never received dialysis yet but had routine lab work done by Dr. Christie. He was called this evening and told to come to the emergency department. The patient denies having any chest pain or difficulty breathing. He denies having any dizziness or syncope. The patient denies having any swelling in his legs. He still has adequate urine output ROS: See above HPI for pertinent positives & negatives. A total of 10 systems reviewed and were otherwise negative. PAST MEDICAL HISTORY: See Below PAST SURGICAL HISTORY: See Below FAMILY HISTORY: See Below SOCIAL HISTORY: See Below HOME MEDICATIONS: See Below ALLERGIES: See Below VITALS: See Below PHYSICAL EXAMINATION: GENERAL: Patient is awake alert in no acute distress patient is resting comfortably and showing no signs of anxiety EYES: The conjunctivae are clear. The pupils are round and reactive. EARS, NOSE, MOUTH AND THROAT: The nose is without any evidence of any deformity. NECK: The neck is nontender and supple. RESPIRATORY: Normal respiratory effort is noted there is no evidence of wheezing rhonchi or rales CARDIOVASCULAR: Murmur suggested. Regular rate and rhythm was noted to auscultation. GASTROINTESTINAL: The abdomen is soft. Abdomen is nontender. MUSCULOSKELETAL/EXTREMITIES: There is no evidence of gross deformity full range of motion is noted in the hips and shoulders. SKIN: There is no obvious evidence of any rash. There are no petechiae, pallor or cyanosis noted. NEUROLOGIC: Patient is awake alert and oriented x3 MEDICAL DECISION MAKING: The patient is a 58-year-old male who presented to the emergency department for same. The patient has worsening creatinine and worsening renal insufficiency. He is followed by nephrology. He had outpatient labs and was told to come the emergency department for further evaluation. The patient was treated with IV fluids as well as IV calcium. He was also treated with IV insulin and IV dextrose. He did have some abnormalities which could be correlated to hyperkalemia. Repeat potassium in the emergency department today was not as elevated as earlier. I discussed patient's laboratory results with him. I also discussed his condition with the on-call [facility] hospitalist. They have agreed to evaluate the patient in the emergency department for further management and disposition. Triage Nursing notes reviewed. Prior medical records reviewed Vital Signs: reviewed and remarkable for elevated blood pressure. Differential diagnosis: Infection, dehydration, metabolic abnormality, hypo/hyperglycemia, electrolyte disturbance, anemia, hypoxia, cardiac sources, intracerebral event, toxicologic, neurologic, as well as other pathologies. ER treatment provided: See below Diagnostics interpreted by me: ECG: EKG was obtained in the emergency department. My interpretation is normal sinus rhythm at 70 bpm. There is no ectopy. There is no acute ST segment abnormalities noted. Peaked T waves were appreciated. This was compared to a tracing from July 14, 2023. The peak T waves are new compared to previous tracing otherwise no significant changes were noted. Cardiac Monitoring: An order was placed for continuous cardiac monitoring. The monitor shows a rate of 78 bpm with sinus rhythm. Laboratory studies: As stated above and show below. Imaging studies: See below. Radiographic imaging was reviewed by myself Consultation(s): I discussed this case with Dr. Payne who is on for the [facility]. Past Med/Surg History Problem List (Updated 08/10/23 @ 22:12 by Maurice Kate DO) Anemia (Acute) Acute hyperkalemia (Acute) Acute renal insufficiency (Acute) Hyperkalemia End stage renal disease ONDINA (acute kidney injury) S/P total left hip arthroplasty Encounter for pre-operative examination Fall (Acute) Lumbar contusion (Acute) Contusion of elbow, left (Acute) Hypertension (Acute) Alcohol abuse (Acute) Closed fracture of left hip (Acute) Closed left hip fracture Non-compliance (Acute) Hyperglycemia (Acute) Abnormal LFTs (Acute) Hyponatremia (Acute) CKD (chronic kidney disease) (Acute) Alcohol withdrawal (Acute) Hypomagnesemia (Acute) Alcohol abuse (Acute) CHI (closed head injury) (Acute) Encephalopathy Hypertensive crisis Hypertensive urgency (Acute) Acute hyponatremia (Acute) Hypomagnesemia (Acute) Generalized seizure (Acute) Hydrocele Acute on chronic renal insufficiency (Acute) Hyperkalemia History of acute renal failure Acute dehydration (Acute) Cardiomyopathy (Acute) Fluid retention in legs (Acute) Leg swelling Hypomagnesemia Elevated troponin I level (Acute) Hyperglycemia due to type 2 diabetes mellitus (Acute) Alcohol intoxication (Acute) Bilateral cellulitis of lower leg (Acute) Dyslipidemia, goal LDL below 70 ASCVD (arteriosclerotic cardiovascular disease) Abnormal electrocardiogram [ECG] [EKG] Discharge planning issues Transaminitis Acute kidney injury DVT prophylaxis Alcohol abuse (Acute) Pancytopenia (Acute) CKD (chronic kidney disease), stage III Chronic pain Alcoholism (Acute) DVT prophylaxis Edema Diabetes mellitus type 2 with complications Cardiomyopathy Dyspnea Cirrhosis of liver Chronic pain syndrome CAD (coronary artery disease) CHF (congestive heart failure) (Acute) Elevated troponin (Acute) Anemia (Acute) Leukopenia (Acute) Bilateral edema of lower extremity (Acute) Acute hyperglycemia (Acute) Thrombocytopenia (Acute) Alcoholic intoxication (Acute) Alcohol withdrawal syndrome without complication Alcohol use disorder (Chronic) CATALINO (obstructive sleep apnea) (Chronic) Non-ST elevation [place] (NSTEMI) (Acute) Back pain (Chronic) CKD (chronic kidney disease) stage 4, GFR 15-29 ml/min Alcohol use disorder, severe, dependence etoh x 40 years - 1 gallon vodka per day, rehab Dec 2022, last drank in Feb 2023 Alcohol withdrawal syndrome CATALINO (obstructive sleep apnea) no CPAP Chronic anemia Proteinuria Smoking History of cardiac catheterization (Chronic) x1, [place], [facility] to proximal OM by Dr. Guerrero on 01/01/19, follows with [facility] cardio (unsure of name) Mood disorder (Chronic) Tobacco use disorder (Chronic) Neuropathy (Chronic) HTN (hypertension) (Chronic) Type 2 diabetes mellitus (Chronic) Medical History Poor historian all hx provided by sister, Kavya Banks Hx of encephalopathy DJD (degenerative joint disease) Back Chronic back pain Acute kidney injury recent admit to [facility], D/C 07/18/23 History of COVID-19 x2, not hospitalized Hx of congestive heart failure Cirrhosis of liver History of asthma Hx of non-ST elevation myocardial infarction (NSTEMI) x 2, cath 2019 x 1 stent, follows with [facility] cardio (unsure of name, last visit > 9 months) TONEY (dyspnea on exertion) Ischemic cardiomyopathy Surgical History Hx of wisdom tooth extraction History of total left hip replacement (~10/2022) History of lymph node biopsy Family History Other Diabetes Heart disease Hypertension Social History Smoking Status: Current every day smoker Tobacco Type: Cigarettes Cigarettes Per Day: 1 PPD (advised); Second Hand Exposure: No; Do You Dip or Chew Tobacco: No; Hx Alcohol Use: Yes Alcohol type: hard liquor Alcohol type Comment: 03/21 gallon vodka a day Hx Substance Use: Yes Last Used Substance: Unknown Last Used Substance Other:: Used over the weekend Substance Use Type Other:: patient said "I've used it all" Preferred Language: Macedonian Communication Ability: Effective [employer] Required: No Beliefs That Will Affect Care: None marital status: Single Current Living Situation: Alone Current Living Situation Comment: Living in car current occupational status: unemployed How many Children do You have: 2 Feels Safe at Home: Yes Assistive Devices: Glasses Allergies Allergies Allergy/AdvReac Type Severity Reaction Status Date / Time pollen extracts Allergy Intermediate SNEEZING, Verified 08/10/23 21:21 CONGESTION Home Meds Home Medications Medication Instructions Recorded Confirmed atorvastatin 80 mg tablet 80 mg PO HS 10/25/21 08/10/23 duloxetine 30 mg capsule,delayed 30 mg PO QAM 03/27/23 08/10/23 release (Cymbalta) [id number] 120 mcg-lutein 1 tab PO QAM 03/27/23 08/10/23 150 mcg-herb 50 mg chewable tablet (Alive Men's 50 Plus Multivitamin) pantoprazole 40 mg tablet,delayed 40 mg PO QAM 03/27/23 08/10/23 release cholecalciferol (vitamin D3) 50 100 mcg PO DAILY 06/27/23 08/10/23 mcg (2,000 unit) capsule citalopram 10 mg tablet (Celexa) 10 mg PO QAM 07/12/23 08/10/23 desloratadine 5 mg tablet 5 mg PO QAM 07/12/23 08/10/23 (Clarinex) folic acid 1 mg tablet 1 mg PO QAM 07/12/23 08/10/23 insulin glargine 100 unit/mL (3 16 unit subcut QAM 07/20/23 08/10/23 mL) subcutaneous pen (Lantus Solostar U-100 Insulin) nifedipine 30 mg tablet,extended 90 mg PO QAM 07/20/23 08/10/23 release 24 hr (Procardia XL) carvedilol 25 mg tablet 25 mg PO BID 08/10/23 08/10/23 sodium bicarbonate 650 mg tablet 650 mg PO BID 08/10/23 08/10/23 torsemide 20 mg tablet 60 mg PO QAM 08/10/23 08/10/23 Previous Rx's Medication Instructions Recorded aspirin 81 mg tablet,delayed 81 mg PO BID #60 tabs 11/15/22 release insulin lispro 100 unit/mL 5 unit (0.05 mL) subcut TID #15 mL 03/27/23 subcutaneous pen (Humalog KwikPen (U-100) Insulin) hydralazine 25 mg tablet 25 mg PO BID #60 tabs 07/18/23 magnesium oxide 400 mg (241.3 mg 400 mg PO QAM #10 tabs 07/18/23 magnesium) tablet thiamine HCl (vitamin B1) 100 mg 100 mg PO QAM #30 tabs 07/18/23 tablet oxycodone-acetaminophen 5 mg-325 1 tab PO Q6H PRN pain #14 tabs 07/28/23 mg tablet (Percocet) Results & Data (ED) Vital Signs Vital Signs - 24 hr 08/10/23 18:59 08/10/23 19:27 08/10/23 19:28 Temperature 36.7 C Temperature Source Temporal Artery Scan Pulse Rate 69 66 66 Pulse Rate from SpO2 Sensor 66 Respiratory Rate 18 12 Respiratory Effort / Characteristics Non-Labored Respiratory Depth Normal Respiratory Pattern Regular Blood Pressure 149/75 H Blood Pressure Mean 99 Pulse Oximetry 97 96 Oxygen Delivery Method Room Air Sepsis Recent Fever Within 48 Hours No Sepsis New/Unexplained Change in Mental Status N/A Sepsis Action Taken by Nursing No Action Required 08/10/23 19:30 08/10/23 19:40 08/10/23 19:50 Temperature Temperature Source Pulse Rate 65 66 64 Pulse Rate from SpO2 Sensor 65 66 64 Respiratory Rate 9 L 15 16 Respiratory Effort / Characteristics Respiratory Depth Respiratory Pattern Blood Pressure Blood Pressure Mean Pulse Oximetry 97 96 96 Oxygen Delivery Method Sepsis Recent Fever Within 48 Hours Sepsis New/Unexplained Change in Mental Status Sepsis Action Taken by Nursing 08/10/23 20:00 08/10/23 20:05 08/10/23 20:05 Temperature Temperature Source Pulse Rate 66 65 Pulse Rate from SpO2 Sensor 66 65 Respiratory Rate 20 16 Respiratory Effort / Characteristics Respiratory Depth Respiratory Pattern Blood Pressure 174/93 H Blood Pressure Mean 139 Pulse Oximetry 97 96 Oxygen Delivery Method Sepsis Recent Fever Within 48 Hours Sepsis New/Unexplained Change in Mental Status Sepsis Action Taken by Nursing 08/10/23 20:10 08/10/23 20:20 08/10/23 20:30 Temperature Temperature Source Pulse Rate 66 65 66 Pulse Rate from SpO2 Sensor 66 65 67 Respiratory Rate 19 14 18 Respiratory Effort / Characteristics Respiratory Depth Respiratory Pattern Blood Pressure Blood Pressure Mean Pulse Oximetry 97 95 96 Oxygen Delivery Method Sepsis Recent Fever Within 48 Hours Sepsis New/Unexplained Change in Mental Status Sepsis Action Taken by Nursing 08/10/23 20:40 08/10/23 20:50 08/10/23 21:00 Temperature Temperature Source Pulse Rate 71 71 72 Pulse Rate from SpO2 Sensor 69 71 72 Respiratory Rate 19 13 15 Respiratory Effort / Characteristics Respiratory Depth Respiratory Pattern Blood Pressure Blood Pressure Mean Pulse Oximetry 97 97 97 Oxygen Delivery Method Sepsis Recent Fever Within 48 Hours Sepsis New/Unexplained Change in Mental Status Sepsis Action Taken by Nursing 08/10/23 21:10 08/10/23 21:20 08/10/23 21:30 Temperature Temperature Source Pulse Rate 74 75 74 Pulse Rate from SpO2 Sensor 74 74 74 Respiratory Rate 16 13 16 Respiratory Effort / Characteristics Respiratory Depth Respiratory Pattern Blood Pressure Blood Pressure Mean Pulse Oximetry 98 97 97 Oxygen Delivery Method Sepsis Recent Fever Within 48 Hours Sepsis New/Unexplained Change in Mental Status Sepsis Action Taken by Nursing 08/10/23 21:40 Temperature Temperature Source Pulse Rate 78 Pulse Rate from SpO2 Sensor 78 Respiratory Rate 12 Respiratory Effort / Characteristics Respiratory Depth Respiratory Pattern Blood Pressure Blood Pressure Mean Pulse Oximetry 98 Oxygen Delivery Method Sepsis Recent Fever Within 48 Hours Sepsis New/Unexplained Change in Mental Status Sepsis Action Taken by Residential Medications Current Medication List: was personally reviewed by me Laboratory Data Attestation: I reviewed the patient's lab results. 08/10/23 19:10 08/10/23 19:10 Lab Results 08/10/23 08/10/23 08/10/23 Range/Units 19:10 20:10 20:48 WBC 6.48 (4.8-10.8) K/ul RBC 3.30 L (4.70-6.10) M/uL Hgb 9.3 L (14.0-18.0) g/dl Hct 28.9 L (42.0-52.0) % MCV 87.6 (80.0-100.0) fL MCH 28.2 (25.0-34.0) pg MCHC 32.2 (32.0-36.0) g/dL RDW Std Deviation 42.9 (36.4-46.3) fL RDW Coeff of Alberto 13.5 (11.5-14.5) % Plt Count 218 (130-400) K/uL MPV 10.2 (9.4-12.4) fL Immature Gran % (Auto) 0.2 % Neut % (Auto) 51.1 % Lymph % (Auto) 36.6 % [place] % (Auto) 9.0 % Eos % (Auto) 2.3 % Baso % (Auto) 0.8 % Neut # (Auto) 3.32 (1.40-6.50) K/uL Lymph # (Auto) 2.37 (1.20-3.40) K/uL [place] # (Auto) 0.58 (0.11-0.59) K/uL Eos # (Auto) 0.15 (0.00-0.50) K/uL Baso # (Auto) 0.05 (0.00-0.20) K/uL Immature Gran # (Auto) 0.01 (0.01-0.20) K/uL Sodium 136 (136-145) mmol/L Potassium 5.2 H (3.5-5.1) mmol/L Chloride 106 (98-107) mmol/L Carbon Dioxide 21 (21-32) mmol/L Anion Gap 9 (3-11) BUN 79 H (6-23) mg/dl Creatinine 4.52 H* (0.6-1.4) mg/dl Est Cr Clr Drug Dosing 20.2 ml/min Est GFR ( Amer) 15.3 ml/min Est GFR (Non-Af Amer) 13.2 ml/min BUN/Creatinine Ratio 17.5 (10-20) Glucose 149 H (70-99(Fasting)) mg/dl POC Glucose 125 H 111 H (70-99) mg/dl Calcium 9.0 (8.6-10.3) mg/dl Magnesium 2.0 (1.7-2.4) mg/dl Total Bilirubin 0.3 (0.2-1.0) mg/dl AST 25 (13-39) U/L ALT 29 (7-52) U/L Alkaline Phosphatase 116 H (34-104) U/L Troponin I High Sens 9.2 (0-20) pg/ml Total Protein 7.0 (6.0-8.3) gm/dl Albumin 3.7 (3.4-5.0) gm/dl Globulin 3.3 (2.5-4.0) gm/dl Albumin/Globulin Ratio 1.1 (0.9-2) Administered Medications Discontinued Medications Dextrose (Dextrose 50% 50 Ml Syringe) 50 ml IV NOW STA Stop: 08/10/23 19:37 Last Admin: 08/10/23 20:06 Dose: 50 ml Documented By: KG Sodium Chloride (Nss) 1,000 mls @ 999 mls/hr IV .Q1H1M ONE Stop: 08/10/23 20:36 Last Infusion: 08/10/23 20:23 Dose: Infused Documented By: Admin: 08/10/23 19:46 Dose: 999 mls/hr Documented By: KG Calcium Chloride 1,000 mg/ (Dextrose) 60 mls @ 240 mls/hr IV NOW STA Stop: 08/10/23 19:50 Last Infusion: 08/10/23 20:41 Dose: Infused Documented By: Admin: 08/10/23 20:06 Dose: 240 mls/hr Documented By: KG Insulin Human Regular (Novolin-R Insulin Per Unit Charge) 10 units IV NOW STA Stop: 08/10/23 19:37 Last Admin: 08/10/23 20:06 Dose: 10 units Documented By: KG Co-signed By: EZRA Imaging Data Attestation: I personally reviewed and interpreted this imaging study as follows: My Impression: 1 view chest x-ray was obtained in the emergency department. My interpretation is no free air or definite infiltrate, final report below. Radiologist's Impression: Chest X-Ray 08/10/23 19:13 SINGLE VIEW CHEST CLINICAL HISTORY: Generalized weakness FINDINGS: An AP, portable, upright chest radiograph is compared to study dated 03/14/2023. The heart is enlarged noting atherosclerotic calcification of the thoracic aorta. The pulmonary vasculature is noncongested. The lungs and pleural spaces are clear. No pneumothorax is seen. The bony thorax is grossly intact. IMPRESSION: Cardiomegaly with no active disease in the chest. ACT 112: Negative or not required by law. Electronically signed by: Ivan Sprague M.D. 08/10/2023 9:09 PM Discharge Plan Visit Data Chief Complaint: Referred by Doctor Stated Complaint: HIGH LEVEL OF POTASSIUM ED Provider: Maurice Kate Discharge Problem: Acute renal insufficiency, Acute hyperkalemia, Anemia Forms Stand Alone Forms: My [facility] [employer] Prescriptions Prescriptions: No Action Alive Men's 50 Plus Multivit 120 mcg-150 mcg -50 mg tablet,chewable 1 tab PO QAM pantoprazole 40 mg tablet,delayed release (DR/EC) 40 mg PO QAM duloxetine [Cymbalta] 30 mg capsule,delayed release(DR/EC) 30 mg PO QAM insulin lispro [Humalog KwikPen Insulin] 100 unit/mL insulin pen 5 unit subcut TID Qty: 15 3RF Rx Instructions: Inject 5 units into the abdomen 10-15 minutes prior to meals. cholecalciferol (vitamin D3) 50 mcg (2,000 unit) capsule 100 mcg PO DAILY atorvastatin 80 mg tablet 80 mg PO HS aspirin 81 mg tablet,delayed release (DR/EC) 81 mg PO BID Qty: 60 0RF desloratadine [Clarinex] 5 mg tablet 5 mg PO QAM folic acid 1 mg Tablet 1 mg PO QAM citalopram [Celexa] 10 mg Tablet 10 mg PO QAM thiamine HCl (vitamin B1) 100 mg Tablet 100 mg PO QAM Qty: 30 0RF hydralazine 25 mg Tablet 25 mg PO BID Qty: 60 0RF magnesium oxide 400 mg (241.3 mg magnesium) Tablet 400 mg PO QAM Qty: 10 0RF carvedilol 25 mg tablet 25 mg PO BID torsemide 20 mg tablet 60 mg PO QAM sodium bicarbonate 650 mg tablet 650 mg PO BID nifedipine [Procardia XL] 30 mg tablet extended release 24hr 90 mg PO QAM insulin glargine [Lantus Solostar U-100 Insulin] 100 unit/mL (3 mL) insulin pen 16 unit subcut QAM Rx Instructions: Inject 16 units into the abdomen once a day. oxycodone-acetaminophen [Percocet] 5-325 mg tablet 1 tab PO Q6H PRN (Reason: pain) Qty: 14 0RF Referrals Referrals: Charity Reed MD [Primary Care Provider] - Discharge Problem: Anemia Qualifiers: Anemia type: unspecified type Qualified Code(s): D64.9 - Anemia, unspecified
[2023-08-10] MEDS: SODIUM CHLORIDE 0.9% 1,000 ML IV ONE (19:46)
[2023-08-10 19:47] LABS: Albumin Globulin Ratio 1.1 (0.9-2); Albumin Level 3.7 gm/dl (3.4-5.0); BUN Creatinine Ratio 17.5 (10-20); Bilirubin,Total 0.3 mg/dl (0.2-1.0); Creatinine Clr Calc Pharmacy 20.2 ml/min; Est GFR (African American) 15.3 ml/min; Est GFR (Non-African American) 13.2 ml/min; Globulin 3.3 gm/dl (2.5-4.0); Potassium 5.2 mmol/L (3.5-5.1); Troponin I High Sensitivity 9.2 pg/ml (0-20)
[2023-08-10] MEDS: CALCIUM CHLORIDE 10% 1,000 MG in DEXTROSE 5% 50 ML IV STA (20:06)
[2023-08-10] MEDS: NovoLIN-R INSULIN PER UNIT CHARGE IV STA (20:06)
[2023-08-10] MEDS: DEXTROSE 50% 50 ML SYRINGE IV STA (20:06)
--- NOTE | 2023-08-10 21:10 | XRay Report ---
SINGLE VIEW CHEST CLINICAL HISTORY: Generalized weakness FINDINGS: An AP, portable, upright chest radiograph is compared to study dated 03/14/2023. The heart is enlarged noting atherosclerotic calcification of the thoracic aorta. The pulmonary vasculature is noncongested. The lungs and pleural spaces are clear. No pneumothorax is seen. The bony thorax is jessica ssly intact. IMPRESSION: Cardiomegaly with no active disease in the chest. ACT 112: Negative or not required by law. Electronically signed by: Ivan Sprague M.D. 08/10/2023 9:09 PM
--- NOTE | 2023-08-10 21:58 | History & Physical Report ---
Date of Service August 10, 2023 Assessment & Plan (1) Hyperkalemia: Plan: 58-year-old male with past medical history significant for type 2 diabetes, hyperlipidemia, obstructive apnea seems noncompliant, pulmonary emphysema, hypertension, ischemic cardiomyopathy, history of CAD, CKD stage III/IV, fatty liver, persistent proteinuria, polyneuropathy, anemia, history of alcoholism, depression, generalized anxiety disorder, history of substance abuse, mild cognitive impairment, food insecurity, was homeless before currently living alone and sister helps him and also his daughter helps him per patient and was sent into the ER by nephro because of outpatient labs showed hyperkalemia potassium of 6.4. Currently resting comfortably and hemodynamically stable. Denies any headache. Denies dizziness. No blurred visions. No earache or runny nose or sore throat. No cough. Appetite is okay. No difficulty swallowing. Denies chest pain or shortness of breath. No nausea. No abdominal pain. Normal bowel and bladder movements. States ambulates okay. Recently fistula done on right forearm which seems not matured yet. Patient was recently in the hospital and was treated for ONDINA and hyperkalemia and metabolic acidosis. Seems difficult to follow as outpatient and seems sister helping with appointments. hyperkalemia today outpatient labs showed potassium of 6.4 potassium 5.2 in the ER tall T waves on EKG received IV calcium gluconate, insulin and dextrose will give a dose of Lokelma low potassium diet follow repeat labs telemetry follow repeat EKGs nephro consult in a.m. CKD stage IV creatinine 4.5 seems around baseline rapidly progressing on torsemide and sodium bicarbonate dialysis as per nephro diabetes continue home Lantus sliding scale we will monitor history of CAD Status post drug-eluting stents to in December 2018 On aspirin, statin History of polysubstance abuse History of alcoholism and was in rehab History of withdrawal seizures Continue folic acid, thiamine will monitor. Chronic systolic CHF EF 49% on torsemide We will monitor Obstructive sleep apnea Patient states not using CPAP for long time per last admit Will monitor Anemia Chronic Hemoglobin 9.3 Will follow labs Hypertension On nifedipine, Coreg and hydralazine Will monitor. Hyperlipidemia On statin Depression General Anxiety disorder On duloxetine GERD - Protonix DVT prophylaxis heparin subcu disposition telemetry full code History of Present Illness Chief Complaint: Hyperkalemia Primary Care Provider: Charity Reed MD 58-year-old male with past medical history significant for type 2 diabetes, hyperlipidemia, obstructive apnea seems noncompliant, pulmonary emphysema, hypertension, ischemic cardiomyopathy, history of CAD, CKD stage III/IV, fatty liver, persistent proteinuria, polyneuropathy, anemia, history of alcoholism, depression, generalized anxiety disorder, history of substance abuse, mild cognitive impairment, food insecurity, was homeless before currently living alone and sister helps him and also his daughter helps him per patient and was sent into the ER by nephro because of outpatient labs showed hyperkalemia potassium of 6.4. Currently resting comfortably and hemodynamically stable. Denies any headache. Denies dizziness. No blurred visions. No earache or runny nose or sore throat. No cough. Appetite is okay. No difficulty swallowing. Denies chest pain or shortness of breath. No nausea. No abdominal pain. Normal bowel and bladder movements. States ambulates okay. Recently fistula done on right forearm which seems not matured yet. Patient was recently in the hospital and was treated for ONDINA and hyperkalemia and metabolic acidosis. Seems difficult to follow as outpatient and seems sister helping with appointments. Past med history. As mentioned above. Past surgical history. Colonoscopy. Social history. Smokes 2 packs a day for 40 years. History of chronic heavy alcohol use and was in rehab but currently not drinking. No drug use. Family history. Paternal grandmother had diabetes. Paternal grandfather had heart disorder. Maternal grandmother had heart disorder. Allergies Allergy/AdvReac Type Severity Reaction Status Date / Time pollen extracts Allergy Intermediate SNEEZING, Verified 08/10/23 21:21 CONGESTION Home Medications Medication Instructions Recorded Confirmed Type atorvastatin 80 mg tablet 80 mg PO HS 10/25/21 08/10/23 History aspirin 81 mg tablet,delayed 81 mg PO BID #60 tabs 11/15/22 08/10/23 Rx release duloxetine 30 mg capsule,delayed 30 mg PO QAM 03/27/23 08/10/23 History release (Cymbalta) insulin lispro 100 unit/mL 5 unit (0.05 mL) subcut TID #15 mL 03/27/23 08/10/23 Rx subcutaneous pen (Humalog KwikPen (U-100) Insulin) [id number] 120 mcg-lutein 1 tab PO QAM 03/27/23 08/10/23 History 150 mcg-herb 50 mg chewable tablet (Alive Men's 50 Plus Multivitamin) pantoprazole 40 mg tablet,delayed 40 mg PO QAM 03/27/23 08/10/23 History release cholecalciferol (vitamin D3) 50 100 mcg PO DAILY 06/27/23 08/10/23 History mcg (2,000 unit) capsule citalopram 10 mg tablet (Celexa) 10 mg PO QAM 07/12/23 08/10/23 History desloratadine 5 mg tablet 5 mg PO QAM 07/12/23 08/10/23 History (Clarinex) folic acid 1 mg tablet 1 mg PO QAM 07/12/23 08/10/23 History hydralazine 25 mg tablet 25 mg PO BID #60 tabs 07/18/23 08/10/23 Rx magnesium oxide 400 mg (241.3 mg 400 mg PO QAM #10 tabs 07/18/23 08/10/23 Rx magnesium) tablet thiamine HCl (vitamin B1) 100 mg 100 mg PO QAM #30 tabs 07/18/23 08/10/23 Rx tablet insulin glargine 100 unit/mL (3 16 unit subcut QAM 07/20/23 08/10/23 History mL) subcutaneous pen (Lantus Solostar U-100 Insulin) nifedipine 30 mg tablet,extended 90 mg PO QAM 07/20/23 08/10/23 History release 24 hr (Procardia XL) oxycodone-acetaminophen 5 mg-325 1 tab PO Q6H PRN pain #14 tabs 07/28/23 Rx mg tablet (Percocet) carvedilol 25 mg tablet 25 mg PO BID 08/10/23 08/10/23 History sodium bicarbonate 650 mg tablet 650 mg PO BID 08/10/23 08/10/23 History torsemide 20 mg tablet 60 mg PO QAM 08/10/23 08/10/23 History Past Med/Surg History Problem List (Updated 08/10/23 @ 22:12 by Maurice Kate DO) Anemia (Acute) Acute hyperkalemia (Acute) Acute renal insufficiency (Acute) Hyperkalemia End stage renal disease ONDINA (acute kidney injury) S/P total left hip arthroplasty Encounter for pre-operative examination Fall (Acute) Lumbar contusion (Acute) Contusion of elbow, left (Acute) Hypertension (Acute) Alcohol abuse (Acute) Closed fracture of left hip (Acute) Closed left hip fracture Non-compliance (Acute) Hyperglycemia (Acute) Abnormal LFTs (Acute) Hyponatremia (Acute) CKD (chronic kidney disease) (Acute) Alcohol withdrawal (Acute) Hypomagnesemia (Acute) Alcohol abuse (Acute) CHI (closed head injury) (Acute) Encephalopathy Hypertensive crisis Hypertensive urgency (Acute) Acute hyponatremia (Acute) Hypomagnesemia (Acute) Generalized seizure (Acute) Hydrocele Acute on chronic renal insufficiency (Acute) Hyperkalemia History of acute renal failure Acute dehydration (Acute) Cardiomyopathy (Acute) Fluid retention in legs (Acute) Leg swelling Hypomagnesemia Elevated troponin I level (Acute) Hyperglycemia due to type 2 diabetes mellitus (Acute) Alcohol intoxication (Acute) Bilateral cellulitis of lower leg (Acute) Dyslipidemia, goal LDL below 70 ASCVD (arteriosclerotic cardiovascular disease) Abnormal electrocardiogram [ECG] [EKG] Discharge planning issues Transaminitis Acute kidney injury DVT prophylaxis Alcohol abuse (Acute) Pancytopenia (Acute) CKD (chronic kidney disease), stage III Chronic pain Alcoholism (Acute) DVT prophylaxis Edema Diabetes mellitus type 2 with complications Cardiomyopathy Dyspnea Cirrhosis of liver Chronic pain syndrome CAD (coronary artery disease) CHF (congestive heart failure) (Acute) Elevated troponin (Acute) Anemia (Acute) Leukopenia (Acute) Bilateral edema of lower extremity (Acute) Acute hyperglycemia (Acute) Thrombocytopenia (Acute) Alcoholic intoxication (Acute) Alcohol withdrawal syndrome without complication Alcohol use disorder (Chronic) CATALINO (obstructive sleep apnea) (Chronic) Non-ST elevation DE (NSTEMI) (Acute) Back pain (Chronic) CKD (chronic kidney disease) stage 4, GFR 15-29 ml/min Alcohol use disorder, severe, dependence etoh x 40 years - 1 gallon vodka per day, rehab Dec 2022, last drank in Feb 2023 Alcohol withdrawal syndrome CATALINO (obstructive sleep apnea) no CPAP Chronic anemia Proteinuria Smoking History of cardiac catheterization (Chronic) x1, [place], [facility] to proximal OM by Dr. Guerrero on 01/01/19, follows with [facility] (unsure of name) Mood disorder (Chronic) Tobacco use disorder (Chronic) Neuropathy (Chronic) HTN (hypertension) (Chronic) Type 2 diabetes mellitus (Chronic) Medical History Poor historian all hx provided by sister, Kavya Banks Hx of encephalopathy DJD (degenerative joint disease) Back Chronic back pain Acute kidney injury recent admit to [facility], D/C 07/18/23 History of COVID-19 x2, not hospitalized Hx of congestive heart failure Cirrhosis of liver History of asthma Hx of non-ST elevation myocardial infarction (NSTEMI) x 2, cath 2019 x 1 stent, follows with [facility] (unsure of name, last visit > 9 months) TONEY (dyspnea on exertion) Ischemic cardiomyopathy Surgical History Hx of wisdom tooth extraction History of total left hip replacement (~10/2022) History of lymph node biopsy Family History Other Diabetes Heart disease Hypertension Social History Smoking Status: Current every day smoker Tobacco Type: Cigarettes Cigarettes Per Day: 3-4 cigarettes/day; Second Hand Exposure: No; Do You Dip or Chew Tobacco: No; Hx Alcohol Use: No Hx Substance Use: No Preferred Language: Armenian Communication Ability: Effective Monitoring Tech Required: No Beliefs That Will Affect Care: None marital status: Single Current Living Situation: Alone Current Living Situation Comment: Living in car current occupational status: unemployed How many Children do You have: 2 Feels Safe at Home: Yes Safety Concerns: Feels Safe At This Time Assistive Devices: Glasses Review of Systems Review of Systems: All systems reviewed & are unremarkable except as noted in HPI & below Physical Exam Physical Exam: General- Not in distress. Head- atraumatic Eyes- PERRL. ENT- oropharynx clear Neck- supple, no JVD. Lungs- clear to auscultation no wheezing or crackles. Heart- regular rhythm; no murmur, no gallop. Abdomen- normal bowel sounds, soft, nontender, no distension. Extremities- no pretibial edema, no erythema seen. Neuro- alert, oriented ; PERRL, no facial palsy; no dysarthria; moves extremities. Results & Data Results & Data Vital Signs (Past 12 Hours) Vital Signs Temp Pulse Resp BP Pulse Ox O2 Del Method 08/10/23 21:40 78 12 98 08/10/23 21:30 74 16 97 08/10/23 21:20 75 13 97 08/10/23 21:10 74 16 98 08/10/23 21:00 72 15 97 08/10/23 20:50 71 13 97 08/10/23 20:40 71 19 97 08/10/23 20:30 66 18 96 08/10/23 20:20 65 14 95 08/10/23 20:10 66 19 97 08/10/23 20:05 65 16 96 08/10/23 20:05 174/93 H 08/10/23 20:00 66 20 97 08/10/23 19:50 64 16 96 08/10/23 19:40 66 15 96 08/10/23 19:30 65 9 L 97 08/10/23 19:28 66 12 96 08/10/23 19:27 66 08/10/23 18:59 36.7 C 69 18 149/75 H 97 Room Air Diagnostic Findings Laboratory Results WBC 6.48 K/ul (4.8-10.8) 08/10/23 19:10 RBC 3.30 M/uL (4.70-6.10) L 08/10/23 19:10 Hgb 9.3 g/dl (14.0-18.0) L 08/10/23 19:10 Hct 28.9 % (42.0-52.0) L 08/10/23 19:10 MCV 87.6 fL (80.0-100.0) 08/10/23 19:10 MCH 28.2 pg (25.0-34.0) 08/10/23 19:10 MCHC 32.2 g/dL (32.0-36.0) 08/10/23 19:10 RDW Std Deviation 42.9 fL (36.4-46.3) 08/10/23 19:10 RDW Coeff of Alberto 13.5 % (11.5-14.5) 08/10/23 19:10 Plt Count 218 K/uL (130-400) 08/10/23 19:10 MPV 10.2 fL (9.4-12.4) 08/10/23 19:10 Immature Gran % (Auto) 0.2 % 08/10/23 19:10 Neut % (Auto) 51.1 % 08/10/23 19:10 Lymph % (Auto) 36.6 % 08/10/23 19:10 Faulkner % (Auto) 9.0 % 08/10/23 19:10 Eos % (Auto) 2.3 % 08/10/23 19:10 Baso % (Auto) 0.8 % 08/10/23 19:10 Neut # (Auto) 3.32 K/uL (1.40-6.50) 08/10/23 19:10 Lymph # (Auto) 2.37 K/uL (1.20-3.40) 08/10/23 19:10 Faulkner # (Auto) 0.58 K/uL (0.11-0.59) 08/10/23 19:10 Eos # (Auto) 0.15 K/uL (0.00-0.50) 08/10/23 19:10 Baso # (Auto) 0.05 K/uL (0.00-0.20) 08/10/23 19:10 Immature Gran # (Auto) 0.01 K/uL (0.01-0.20) 08/10/23 19:10 Sodium 136 mmol/L (136-145) 08/10/23 19:10 Potassium 5.2 mmol/L (3.5-5.1) H 08/10/23 19:10 Chloride 106 mmol/L (98-107) 08/10/23 19:10 Carbon Dioxide 21 mmol/L (21-32) 08/10/23 19:10 Anion Gap 9 (3-11) 08/10/23 19:10 BUN 79 mg/dl (6-23) H 08/10/23 19:10 Creatinine 4.52 mg/dl (0.6-1.4) H* 08/10/23 19:10 Est Cr Clr Drug Dosing 20.2 ml/min 08/10/23 19:10 Est GFR ( Amer) 15.3 ml/min 08/10/23 19:10 Est GFR (Non-Af Amer) 13.2 ml/min 08/10/23 19:10 BUN/Creatinine Ratio 17.5 (10-20) 08/10/23 19:10 Glucose 149 mg/dl (70-99(Fasting)) H 08/10/23 19:10 POC Glucose 111 mg/dl (70-99) H 08/10/23 20:48 Calcium 9.0 mg/dl (8.6-10.3) 08/10/23 19:10 Magnesium 2.0 mg/dl (1.7-2.4) 08/10/23 19:10 Total Bilirubin 0.3 mg/dl (0.2-1.0) 08/10/23 19:10 AST 25 U/L (13-39) 08/10/23 19:10 ALT 29 U/L (7-52) 08/10/23 19:10 Alkaline Phosphatase 116 U/L (34-104) H 08/10/23 19:10 Troponin I High Sens 9.2 pg/ml (0-20) 08/10/23 19:10 Total Protein 7.0 gm/dl (6.0-8.3) 08/10/23 19:10 Albumin 3.7 gm/dl (3.4-5.0) 08/10/23 19:10 Globulin 3.3 gm/dl (2.5-4.0) 08/10/23 19:10 Albumin/Globulin Ratio 1.1 (0.9-2) 08/10/23 19:10 Impressions Chest X-Ray 08/10/23 19:13 SINGLE VIEW CHEST CLINICAL HISTORY: Generalized weakness FINDINGS: An AP, portable, upright chest radiograph is compared to study dated 03/14/2023. The heart is enlarged noting atherosclerotic calcification of the thoracic aorta. The pulmonary vasculature is noncongested. The lungs and pleural spaces are clear. No pneumothorax is seen. The bony thorax is grossly intact. IMPRESSION: Cardiomegaly with no active disease in the chest. ACT 112: Negative or not required by law. Electronically signed by: Ivan Sprague M.D. 08/10/2023 9:09 PM ECG Additional Comments: ECG. Normal sinus rhythm with a rate of 70. Nonspecific T wave abnormali ties. Tall T waves seen Code Status & VTE Plan VTE Prophylaxis Plan VTE Prophylaxis will be ordered: Yes
[2023-08-10] MEDS ORDERED: DEXTROSE 50% 50 ML SYRINGE IV PRN (23:00)
[2023-08-10] MEDS ORDERED: GLUCOSE 10 TAB/TUBE PO PRN (23:00)
[2023-08-10] MEDS ORDERED: GLUCOSE 40% GEL 15 GM TUBE PO PRN (23:00)
[2023-08-10] MEDS ORDERED: oxyCODONE/ACETAMINOPHEN 5mg/325mg TAB PO PRN (23:00)
[2023-08-10] MEDS ORDERED: CARBOHYDRATES FOR HYPOGLYCEMIA PO PRN (23:00)
[2023-08-10] MEDS ORDERED: NITROGLYCERIN SL 0.4 MG/TAB TAB SL PRN (23:00)
[2023-08-10] MEDS ORDERED: GLUCAGON FOR INJ 1 MG VIAL SQ PRN (23:00)
[2023-08-10 23:16] LABS: Appearance Urine Clear (Clear); Bacteria Urine Automated None Seen (None Seen); Bilirubin Urine Negative (Negative); Blood Urine Negative (Negative); Cast Urine Automated 0-2 /lpf (0-2); Color Urine Yellow; Epithelial Cell Urine Auto 0-2 /hpf (0-2); Glucose Urine UA Negative (Negative); Ketones Urine Negative (Negative); Leukocyte Esterase Urine Negative (Negative); Nitrite Urine Negative (Negative); Protein Urine 3+ (Negative); RBC Urine Automated 0-2 /hpf (0-2); Urobilinogen Urine Negative (Negative); WBC Urine Automated 0-5 /hpf (0-5)
[2023-08-10] MEDS: hydrALAZINE HCL 25 MG TAB PO SCH (23:53)
[2023-08-10] MEDS: SODIUM BICARBONATE 650 MG TAB PO SCH (23:54)
[2023-08-11] MEDS: SODIUM ZIRCONIUM CYCLOSILICATE 10 GM PACKET PO STA (02:00)
[2023-08-11 07:05] LABS: Basophils # (auto) 0.04 K/uL (0.00-0.20); Basophils % (auto) 0.5 %; Eosinophils # (auto) 0.18 K/uL (0.00-0.50); Eosinophils % (auto) 2.1 %; Hematocrit (blood only) 30.3 % (42.0-52.0); Hemoglobin 9.8 g/dl (14.0-18.0); Immature Granulocytes # (auto) 0.03 K/uL (0.01-0.20); Immature Granulocytes % (auto) 0.4 %; Lymphocytes # (auto) 2.59 K/uL (1.20-3.40); Lymphocytes % (auto) 30.5 %; Mean Corpuscular Hemoglobin 28.3 pg (25.0-34.0); Mean Corpuscular Hgb Conc 32.3 g/dL (32.0-36.0); Mean Corpuscular Volume 87.6 fL (80.0-100.0); Mean Platelet Volume 10.2 fL (9.4-12.4); Monocytes # (auto) 0.64 K/uL (0.11-0.59); Monocytes % (auto) 7.5 %; Neutrophils # (auto) 5.01 K/uL (1.40-6.50); Platelet Count 213 K/uL (130-400); RDW Coefficient of Variation 13.6 % (11.5-14.5); RDW Standard Deviation 43.7 fL (36.4-46.3); Red Blood Count 3.46 M/uL (4.70-6.10); White Blood Count 8.49 K/ul (4.8-10.8)
[2023-08-11 07:21] LABS: BUN Creatinine Ratio 16.7 (10-20); Calcium 9.2 mg/dl (8.6-10.3); Est GFR (Non-African American) 13.8 ml/min; Magnesium 1.9 mg/dl (1.7-2.4); Potassium 5.4 mmol/L (3.5-5.1)
--- NOTE | 2023-08-11 07:21 | Hospitalist Progress Note ---
Date of Service August 11, 2023 Assessment & Plan (1) Hyperkalemia: Plan: 58 yo M with type 2 diabetes, hyperlipidemia, obstructive apnea seems noncompliant, pulmonary emphysema, hypertension, ischemic cardiomyopathy, history of CAD, CKD stage III/IV, fatty liver, persistent proteinuria, polyneuropathy, anemia, history of alcoholism, depression, generalized anxiety disorder, history of substance abuse, mild cognitive impairment, food insecurity, was homeless before currently living alone and sister helps him and also his daughter helps him per patient and was sent into the ER by nephro because of outpatient labs showed hyperkalemia potassium of 6.4. Currently resting comfortably and hemodynamically stable. Denies any headache. Denies dizziness. No blurred visions. No earache or runny nose or sore throat. No cough. Appetite is okay. No difficulty swallowing. Denies chest pain or shortness of breath. No nausea. No abdominal pain. Normal bowel and bladder movements. States ambulates okay. Recently fistula done on right forearm which seems not matured yet. Patient was recently in the hospital and was treated for ONDINA and hyperkalemia and metabolic acidosis. Seems difficult to follow as outpatient and seems sister helping with appointments. Hyperkalemia outpatient labs showed potassium of 6.4 potassium 5.2 in the ER tall T waves on EKG received IV calcium gluconate, insulin and dextrose dose of Lokelma given low potassium diet follow repeat labs telemetry follow repeat EKGs Nephrology consulted and discussed with - plan to DC on torsemide (already on this med) and lokelma - needs prior auth for that (CM involved) CKD stage IV / ESRD (not yet on HD) creatinine 4.5 seems around baseline rapidly progressing on torsemide and sodium bicarbonate dialysis as per nephro Diabetes continue home Lantus sliding scale we will monitor History of CAD Status post drug-eluting stents to in December 2018 On aspirin, statin History of polysubstance abuse History of alcoholism and was in rehab History of withdrawal seizures Continue folic acid, thiamine will monitor. Chronic systolic CHF EF 49% on torsemide We will monitor Obstructive sleep apnea Patient states not using CPAP for long time per last admit Will monitor Anemia Chronic Hemoglobin 9.3 Will follow labs Hypertension On nifedipine, Coreg and hydralazine Will monitor. Hyperlipidemia On statin Depression General Anxiety disorder On duloxetine GERD - Protonix DVT prophylaxis - heparin subcu disposition- telemetry full code Admission and Anticipated Discharge Date Admission Date: August 10, 2023 Subjective Pt seen in follow up up of hyperkalemia in ESRD, has new fistula (has not started HD yet), referred to the hospital by nephrology Currently laying in bed in NAD, awake alert and reports feeling well no fever, chills, chest pain, shortness of breath, no abd. pain, n/v Says he had diarrhea for few days but here stool was normal No palpitations or dizziness K 5.4 this AM, ordered [facility] Nephrology consulted and discussed with - plan likely to dc on lokelma - needs prior auth for that (CM involved), and will need to continue torsemide. cont. to monitor BMP Review of Systems Review of Systems: All systems reviewed & are unremarkable except as noted in Subjective Physical Exam Physical Exam: General- Not in distress. Head- atraumatic Eyes- PERRL. ENT- oropharynx clear Neck- supple, no JVD. Lungs- clear to auscultation no wheezing or crackles. Heart- regular rhythm; no murmur, no gallop. Abdomen- normal bowel sounds, soft, nontender, no distension. Extremities- no pretibial edema, no erythema seen. Neuro- alert, oriented ; PERRL, no facial palsy; no dysarthria; moves extremities. Results & Data Results & Data Vital Signs (Past 12 Hours) Vital Signs Temp Pulse Pulse Resp BP BP Pulse Ox 08/11/23 02:49 36.4 C L 62 16 170/80 H 97 08/11/23 00:07 08/10/23 23:00 36.5 C 63 16 186/85 H 95 08/10/23 23:00 08/10/23 22:56 65 08/10/23 21:40 78 12 98 08/10/23 21:30 74 16 97 08/10/23 21:20 75 13 97 08/10/23 21:10 74 16 98 08/10/23 21:00 72 15 97 08/10/23 20:50 71 13 97 08/10/23 20:40 71 19 97 08/10/23 20:30 66 18 96 08/10/23 20:20 65 14 95 08/10/23 20:10 66 19 97 08/10/23 20:05 65 16 96 08/10/23 20:05 174/93 H 08/10/23 20:00 66 20 97 08/10/23 19:50 64 16 96 08/10/23 19:40 66 15 96 08/10/23 19:30 65 9 L 97 08/10/23 19:28 66 12 96 08/10/23 19:27 66 Pulse Ox O2 Del Method O2 Del Method 08/11/23 02:49 Room Air 08/11/23 00:07 Room Air 08/10/23 23:00 Room Air 08/10/23 23:00 95 Room Air 08/10/23 22:56 08/10/23 21:40 08/10/23 21:30 08/10/23 21:20 08/10/23 21:10 08/10/23 21:00 08/10/23 20:50 08/10/23 20:40 08/10/23 20:30 08/10/23 20:20 08/10/23 20:10 08/10/23 20:05 08/10/23 20:05 08/10/23 20:00 08/10/23 19:50 08/10/23 19:40 08/10/23 19:30 08/10/23 19:28 08/10/23 19:27 Laboratory Results 08/11/23 08/10/23 08/10/23 Range/Units 06:33 23:00 20:48 WBC 8.49 (4.8-10.8) K/ul RBC 3.46 L (4.70-6.10) M/uL Hgb 9.8 L (14.0-18.0) g/dl Hct 30.3 L (42.0-52.0) % MCV 87.6 (80.0-100.0) fL MCH 28.3 (25.0-34.0) pg MCHC 32.3 (32.0-36.0) g/dL RDW Std Deviation 43.7 (36.4-46.3) fL RDW Coeff of Alberto 13.6 (11.5-14.5) % Plt Count 213 (130-400) K/uL MPV 10.2 (9.4-12.4) fL Immature Gran % (Auto) 0.4 % Neut % (Auto) 59.0 % Lymph % (Auto) 30.5 % [place] % (Auto) 7.5 % Eos % (Auto) 2.1 % Baso % (Auto) 0.5 % Neut # (Auto) 5.01 (1.40-6.50) K/uL Lymph # (Auto) 2.59 (1.20-3.40) K/uL [place] # (Auto) 0.64 H (0.11-0.59) K/uL Eos # (Auto) 0.18 (0.00-0.50) K/uL Baso # (Auto) 0.04 (0.00-0.20) K/uL Immature Gran # (Auto) 0.03 (0.01-0.20) K/uL Sodium Pending (136-145) mmol/L Potassium Pending (3.5-5.1) mmol/L Chloride Pending (98-107) mmol/L Carbon Dioxide Pending (21-32) mmol/L Anion Gap Pending (3-11) BUN Pending (6-23) mg/dl Creatinine Pending (0.6-1.4) mg/dl Est Cr Clr Drug Dosing Pending ml/min Est GFR ( Amer) Pending ml/min Est GFR (Non-Af Amer) Pending ml/min BUN/Creatinine Ratio Pending (10-20) Glucose Pending (70-99(Fasting)) mg/dl POC Glucose 111 H (70-99) mg/dl Estimat Average Glucose Pending Hemoglobin A1c Pending Calcium Pending (8.6-10.3) mg/dl Magnesium Pending (1.7-2.4) mg/dl Total Bilirubin (0.2-1.0) mg/dl AST (13-39) U/L ALT (7-52) U/L Alkaline Phosphatase (34-104) U/L Troponin I High Sens (0-20) pg/ml Total Protein (6.0-8.3) gm/dl Albumin (3.4-5.0) gm/dl Globulin (2.5-4.0) gm/dl Albumin/Globulin Ratio (0.9-2) Urine Color Yellow Urine Appearance Clear (Clear) Urine pH 6.0 (4.5-7.5) Ur Specific Galloway 1.010 (1.000-1.030) Urine Protein 3+ H (Negative) Urine Glucose (UA) Negative (Negative) Urine Ketones Negative (Negative) Urine Blood Negative (Negative) Urine Nitrite Negative (Negative) Urine Bilirubin Negative (Negative) Urine Urobilinogen Negative (Negative) Ur Leukocyte Esterase Negative (Negative) Urine WBC (Auto) 0-5 (0-5) /hpf Urine RBC (Auto) 0-2 (0-2) /hpf U Hyaline Cast (Auto) 0-2 (0-2) /lpf U Epithel Cells (Auto) 0-2 (0-2) /hpf Urine Bacteria (Auto) None Seen (None Seen) 08/10/23 08/10/23 Range/Units 20:10 19:10 WBC 6.48 (4.8-10.8) K/ul RBC 3.30 L (4.70-6.10) M/uL Hgb 9.3 L (14.0-18.0) g/dl Hct 28.9 L (42.0-52.0) % MCV 87.6 (80.0-100.0) fL MCH 28.2 (25.0-34.0) pg MCHC 32.2 (32.0-36.0) g/dL RDW Std Deviation 42.9 (36.4-46.3) fL RDW Coeff of Alberto 13.5 (11.5-14.5) % Plt Count 218 (130-400) K/uL MPV 10.2 (9.4-12.4) fL Immature Gran % (Auto) 0.2 % Neut % (Auto) 51.1 % Lymph % (Auto) 36.6 % [place] % (Auto) 9.0 % Eos % (Auto) 2.3 % Baso % (Auto) 0.8 % Neut # (Auto) 3.32 (1.40-6.50) K/uL Lymph # (Auto) 2.37 (1.20-3.40) K/uL [place] # (Auto) 0.58 (0.11-0.59) K/uL Eos # (Auto) 0.15 (0.00-0.50) K/uL Baso # (Auto) 0.05 (0.00-0.20) K/uL Immature Gran # (Auto) 0.01 (0.01-0.20) K/uL Sodium 136 (136-145) mmol/L Potassium 5.2 H (3.5-5.1) mmol/L Chloride 106 (98-107) mmol/L Carbon Dioxide 21 (21-32) mmol/L Anion Gap 9 (3-11) BUN 79 H (6-23) mg/dl Creatinine 4.52 H* (0.6-1.4) mg/dl Est Cr Clr Drug Dosing 20.2 ml/min Est GFR ( Amer) 15.3 ml/min Est GFR (Non-Af Amer) 13.2 ml/min BUN/Creatinine Ratio 17.5 (10-20) Glucose 149 H (70-99(Fasting)) mg/dl POC Glucose 125 H (70-99) mg/dl Estimat Average Glucose Hemoglobin A1c Calcium 9.0 (8.6-10.3) mg/dl Magnesium 2.0 (1.7-2.4) mg/dl Total Bilirubin 0.3 (0.2-1.0) mg/dl AST 25 (13-39) U/L ALT 29 (7-52) U/L Alkaline Phosphatase 116 H (34-104) U/L Troponin I High Sens 9.2 (0-20) pg/ml Total Protein 7.0 (6.0-8.3) gm/dl Albumin 3.7 (3.4-5.0) gm/dl Globulin 3.3 (2.5-4.0) gm/dl Albumin/Globulin Ratio 1.1 (0.9-2) Urine Color Urine Appearance (Clear) Urine pH (4.5-7.5) Ur Specific [place] (1.000-1.030) Urine Protein (Negative) Urine Glucose (UA) (Negative) Urine Ketones (Negative) Urine Blood (Negative) Urine Nitrite (Negative) Urine Bilirubin (Negative) Urine Urobilinogen (Negative) Ur Leukocyte Esterase (Negative) Urine WBC (Auto) (0-5) /hpf Urine RBC (Auto) (0-2) /hpf U Hyaline Cast (Auto) (0-2) /lpf U Epithel Cells (Auto) (0-2) /hpf Urine Bacteria (Auto) (None Seen) Medications Administered Current Inpatient Medications Acetaminophen (Acetaminophen 325 Mg Tab) 650 mg PO Q4H PRN PRN Reason: Pain or Fever Stop: 09/09/23 22:59 Aspirin (Aspirin 81 Mg Ectab) 81 mg PO BID [facility] Stop: 09/10/23 08:59 Atorvastatin Calcium (Atorvastatin 40 Mg Tab) 80 mg PO HS LUCINDA Stop: 09/10/23 20:59 Carvedilol (Carvedilol 25 Mg Tab) 25 mg PO BID LUCINDA Stop: 09/10/23 08:59 Citalopram Hydrobromide (Citalopram 20 Mg Tab) 10 mg PO QAM LUCINDA Stop: 09/10/23 08:59 Dextrose (Dextrose 50% 50 Ml Syringe) 25 - 50 ml IV UD PRN; Protocol PRN Reason: Hypoglycemia Protocol Stop: 09/09/23 22:59 Duloxetine HCl (Duloxetine Hcl 30 Mg Cap) 30 mg PO QAM LUCINDA Stop: 09/10/23 08:59 Folic Acid (Folic Acid 1 Mg Tab) 1 mg PO QAM LUCINDA Stop: 09/10/23 08:59 Glucagon (Glucagon For Inj 1 Mg Vial) 1 mg SQ UD PRN; Protocol PRN Reason: Hypoglycemia Protocol Stop: 09/09/23 22:59 Glucose (Glucose 40% Gel 15 Gm Tube) 15 - 30 gm PO UD PRN; Protocol PRN Reason: Hypoglycemia Protocol Stop: 09/09/23 22:59 Glucose (Glucose 10 Tab/Tube) 4 - 8 tab PO UD PRN; Protocol PRN Reason: Hypoglycemia Treatment Stop: 09/09/23 22:59 Heparin Sodium (Porcine) (Heparin Sod 5,000 Unit/0.5 Ml Vial) 5,000 units SQ Q12 LUCINDA Stop: 09/10/23 08:59 Hydralazine HCl (Hydralazine Hcl 25 Mg Tab) 25 mg PO BID LUCINDA Stop: 09/09/23 22:59 Last Admin: 08/10/23 23:53 Dose: 25 mg Insulin Aspart (Insulin Aspart Per Unit Charge) 0 units SC ACHS LUCINDA Stop: 09/10/23 07:29 Insulin Glargine (Lantus Per Unit Charge) 16 units SQ QAM LUCINDA Stop: 09/10/23 08:59 Loratadine (Loratadine 10 Mg Tab) 10 mg PO QAM LUCINDA Stop: 09/10/23 08:59 Magnesium Oxide (Magnesium Oxide 400 Mg Tab) 400 mg PO QAM LUCINDA Stop: 09/10/23 08:59 Miscellaneous (Carbohydrates For Hypoglycemia ) 15 - 30 gm PO UD PRN PRN Reason: Hypoglycemia Protocol Stop: 09/09/23 22:59 Multivitamins/Minerals (Cerovite Adv Formula Tab) 1 tab PO QAM LUCINDA Stop: 09/10/23 08:59 Nifedipine (Nifedipine Extended Rel 30 Mg Tabcr) 90 mg PO QAM LUCINDA Stop: 09/10/23 08:59 Nitroglycerin (Nitroglycerin Sl 0.4 Mg/Tab Tab) 0.4 mg SL Q5M PRN PRN Reason: Chest Pain Stop: 09/09/23 22:59 Oxycodone/Acetaminophen (Oxycodone/Acetaminophen 5mg/325mg Tab) 1 tab PO Q6H PRN PRN Reason: pain Stop: 08/24/23 22:59 Pantoprazole Sodium (Pantoprazole 40 Mg Tab) 40 mg PO QAM LUCINDA Stop: 09/10/23 08:59 Sodium Bicarbonate (Sodium Bicarbonate 650 Mg Tab) 650 mg PO BID LUCINDA Stop: 09/09/23 22:59 Last Admin: 08/10/23 23:54 Dose: 650 mg Thiamine HCl (Thiamine Hcl 100 Mg Tab) 100 mg PO QAM LUCINDA Stop: 09/10/23 08:59 Torsemide (Torsemide 20 Mg Tab) 60 mg PO QAM LUCINDA Stop: 09/10/23 08:59 Vitamin D (Cholecalciferol 25 Mcg (1000 Units) Tab) 100 mcg PO DAILY LUCINDA Stop: 09/10/23 08:59
[2023-08-11 07:52] LABS: Estimated Average Glucose 166 mg/dl; Hemoglobin A1C 7.4 % (4.5-5.6)
[2023-08-11] MEDS: INSULIN ASPART PER UNIT CHARGE SC SCH (08:09)
[2023-08-11] MEDS: CHOLECALCIFEROL 25 MCG (1000 UNITS) TAB PO SCH (08:18)
[2023-08-11] MEDS: THIAMINE HCL 100 MG TAB PO SCH (08:19)
[2023-08-11] MEDS: MAGNESIUM OXIDE 400 MG TAB PO SCH (08:19)
[2023-08-11] MEDS: CEROVITE ADV FORMULA TAB PO SCH (08:19)
[2023-08-11] MEDS: PANTOprazole 40 MG TAB PO SCH (08:20)
[2023-08-11] MEDS: FOLIC ACID 1 MG TAB PO SCH (08:20)
[2023-08-11] MEDS: DULoxetine HCL 30 MG CAP PO SCH (08:21)
[2023-08-11] MEDS: ASPIRIN 81 MG ECTAB PO SCH (08:21)
[2023-08-11] MEDS: NIFEdipine EXTENDED REL 30 MG TABCR PO SCH (08:22)
[2023-08-11] MEDS: TORSEMIDE 20 MG TAB PO SCH (08:23)
[2023-08-11] MEDS: carvediloL 25 MG TAB PO SCH (08:24)
[2023-08-11] MEDS: CITALOPRAM 20 MG TAB PO SCH (08:26)
[2023-08-11] MEDS: LORATADINE 10 MG TAB PO SCH (08:27)
[2023-08-11] MEDS: LANTUS PER UNIT CHARGE SQ SCH (09:24)
[2023-08-11] MEDS: HEPARIN SOD 5,000 UNIT/0.5 ML VIAL SQ SCH (09:34)
--- NOTE | 2023-08-11 12:56 | Electrocardiogram Report ---
Test Reason : Blood Pressure : / mmHG Vent. Rate : 070 BPM Atrial Rate : 070 BPM P-R Int : 188 ms QRS Dur : 090 ms QT Int : 416 ms P-R-T Axes : 061 -16 073 degrees QTc Int : 449 ms Normal sinus rhythm Normal ECG When compared with ECG of 14-JUL-2023 06:08, QRS duration has decreased Nonspecific T wave abnormality, improved in Lateral leads Confirmed by Maurice Caldwell ([id number]) on 08/11/2023 12:56:49 PM Referred By: Charity Reed Confirmed By:Maurice Caldwell
--- NOTE | 2023-08-11 13:06 | Electrocardiogram Report ---
Test Reason : Blood Pressure : / mmHG Vent. Rate : 064 BPM Atrial Rate : 064 BPM P-R Int : 190 ms QRS Dur : 104 ms QT Int : 428 ms P-R-T Axes : 051 -14 074 degrees QTc Int : 441 ms Sinus rhythm with Premature atrial complexes Incomplete right bundle branch block Borderline ECG When compared with ECG of 10-AUG-2023 19:05, (unconfirmed) Premature atrial complexes are now Present Confirmed by Maurice Caldwell ([id number]) on 08/11/2023 1:06:21 PM Referred By: Charity Reed Confirmed By:Maurice Caldwell
--- NOTE | 2023-08-11 15:33 | Nephrology Consultation ---
Date of Consultation August 11, 2023 Assessment & Plan (1) Hyperkalemia: Life-threatening hyperkalemia prior to admission in the setting of rapidly progressive CKD now ESRD and not on dialysis. 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 Peculiar that torsemide as just recently newly prescribed did not provide control of potassium. Question whether or not patient took this medication since we would have expected K to fall not rise with recent initiation as outpatient of torsemide -Continue daily Lokelma once daily Continue sodium bicarbonate and daily torsemide 60 mg Basic metabolic panel daily should be reasonable Could stop low potassium diet for now -no indication for urgent HD Recommend monitoring at least one more day given K still mildly elevated; continue daily lokelma May be able to d/c tomorrow w/ close f/u > but he MUST take torsemide >> he did fill torsemide at [facility] on 08/02; >>>would ask sister if she had a chance to get this med in his pillbox or not; if not, would continue on torsemide 60 mg daily dose; if she did get it in his pill box, would recommend higher 100 mg dose torsemide daily until he can be evaluated for lokelma; ALSO recommend BMP to be ordered by neph nurse for 08/15 or 08/16 draw and another hospital d/c visit w/ me 2-3 wks after d/c again with repeat BMP up to 72 hrs before that appt to be ordered by neph nurse Care coordinated w/ Dr Munoz regarding mgt of K, of CKD, and possibly getting HHN to come to house to offload sister a bit. (2) CKD (chronic kidney disease) stage 5, GFR less than 15 ml/min: Rapidly progressive CKD now ESRD in a patient not on dialysis but likely to need it in the next 3 months. He has a healing L AVF whcih is not ready for use. follows in my CKD clinic -continue torsemide current dose Pt w/ mild volume overload and near-critical K elevation in pt with CKD 5, not yet on dialysis > as below -sister Kavya stated to me when I called to advise JIM castañeda last evening that she is "overwhelmed" and not sure what she can do about this -cont torsemide current dose -daily bmp (3) Hypertension associated with stage 5 chronic kidney disease due to type 2 diabetes mellitus: -daily bmp -PT as tolerated -continue current doses of nifedipine, coreg, carvedilol, hydralazine, torsemide History of Present Illness Reason for Consultation: Hyperkalemia Requesting Physician: Dr Payne Attending Physician: Germain Munoz MD History of Present Illness 58-year-old male whom I am asked to evaluate for hyperkalemia was admitted overnight after I noted a potassium of 6.4 on routine outpatient labs. 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 Hospitalized in [facility] 03/03-2022 w/ DKA, ear infection, frostbite and A1c 18.3% per report. Admitted here recently 07/11-07/17 for ONDINA on CKD and also s/p AVF creation 07/28/23. Endorses sobriety since at least February and attends AA meetings. his sister does his pill boxes but pt does sometimes forget to take his medications even with this arrangement. he can't give a history of what medications he is taking or not. At recent hospital discharge, nifedipine was increased and Jardiance was stopped. I saw him July 30 and started him on torsemide 60 mg daily. Despite this his potassium was elevated to 6.4 on follow-up lab as above. On arrival to the ER he was noted to have tall T waves on electrocardiogram and received calcium gluconate as well as insulin and dextrose. He was given a dose of Lokelma and started on a low potassium diet. He had another dose of Lokelma this morning after his potassium came back at 5.4. His presenting creatinine was 4.5, with improvement to 4.4 this morning. The patient feels well overall. Denies recent acute illness, denies shortness of breath, nausea vomiting, issues with urinary retention, dysuria or gross hematuria. No chest pain no increased abdominal girth no lower extremity edema. Ongoing L hip pain. Allergies Allergy/AdvReac Type Severity Reaction Status Date / Time pollen extracts Allergy Intermediate SNEEZING, Verified 08/10/23 21:21 CONGESTION Home Medications Medication Instructions Recorded Confirmed Type atorvastatin 80 mg tablet 80 mg PO HS 10/25/21 08/10/23 History aspirin 81 mg tablet,delayed 81 mg PO BID #60 tabs 11/15/22 08/10/23 Rx release duloxetine 30 mg capsule,delayed 30 mg PO QAM 03/27/23 08/10/23 History release (Cymbalta) insulin lispro 100 unit/mL 5 unit (0.05 mL) subcut TID #15 mL 03/27/23 08/10/23 Rx subcutaneous pen (Humalog KwikPen (U-100) Insulin) [id number] 120 mcg-lutein 1 tab PO QAM 03/27/23 08/10/23 History 150 mcg-herb 50 mg chewable tablet (Alive Men's 50 Plus Multivitamin) pantoprazole 40 mg tablet,delayed 40 mg PO QAM 03/27/23 08/10/23 History release cholecalciferol (vitamin D3) 50 100 mcg PO DAILY 06/27/23 08/10/23 History mcg (2,000 unit) capsule citalopram 10 mg tablet (Celexa) 10 mg PO QAM 07/12/23 08/10/23 History desloratadine 5 mg tablet 5 mg PO QAM 07/12/23 08/10/23 History (Clarinex) folic acid 1 mg tablet 1 mg PO QAM 07/12/23 08/10/23 History hydralazine 25 mg tablet 25 mg PO BID #60 tabs 07/18/23 08/10/23 Rx magnesium oxide 400 mg (241.3 mg 400 mg PO QAM #10 tabs 07/18/23 08/10/23 Rx magnesium) tablet thiamine HCl (vitamin B1) 100 mg 100 mg PO QAM #30 tabs 07/18/23 08/10/23 Rx tablet insulin glargine 100 unit/mL (3 16 unit subcut QAM 07/20/23 08/10/23 History mL) subcutaneous pen (Lantus Solostar U-100 Insulin) nifedipine 30 mg tablet,extended 90 mg PO QAM 07/20/23 08/10/23 History release 24 hr (Procardia XL) oxycodone-acetaminophen 5 mg-325 1 tab PO Q6H PRN pain #14 tabs 07/28/23 08/10/23 Rx mg tablet (Percocet) carvedilol 25 mg tablet 25 mg PO BID 08/10/23 08/10/23 History sodium bicarbonate 650 mg tablet 650 mg PO BID 08/10/23 08/10/23 History torsemide 20 mg tablet 60 mg PO QAM 08/10/23 08/10/23 History sodium zirconium cyclosilicate 10 10 g PO DAILY #30 ea 08/11/23 Rx gram oral powder packet (Lokelma) Patient History Medical History CKD (chronic kidney disease) stage 5, GFR less than 15 ml/min Poor historian all hx provided by sister, Kavya Banks Hx of encephalopathy DJD (degenerative joint disease) Back Chronic back pain History of COVID-19 x2, not hospitalized Hx of congestive heart failure Cirrhosis of liver History of asthma Hx of non-ST elevation myocardial infarction (NSTEMI) x 2, cath 2019 x 1 stent, follows with S cardio (unsure of name, last visit > 9 months) TONEY (dyspnea on exertion) Ischemic cardiomyopathy Surgical History Hx of wisdom tooth extraction History of total left hip replacement (~10/2022) History of lymph node biopsy Family History Other Diabetes Heart disease Hypertension Social History Smoking Status: Current every day smoker Tobacco Type: Cigarettes Cigarettes Per Day: 3-4 cigarettes/day; Second Hand Exposure: No; Do You Dip or Chew Tobacco: No; Hx Alcohol Use: No Hx Substance Use: No Preferred Language: Chinese Communication Ability: Effective Precision Jig Grinder Required: No Beliefs That Will Affect Care: None marital status: Single Current Living Situation: Alone Current Living Situation Comment: Living in car current occupational status: unemployed How many Children do You have: 2 Feels Safe at Home: Yes Safety Concerns: Feels Safe At This Time Assistive Devices: None Review of Systems 2 Review of Systems: All systems reviewed & are unremarkable except as noted in HPI & below Physical Exam 2 Constitutional: well developed, well nourished, + frail appearing and cooperative; no acute distress Eyes: EOM intact bilaterally ENMT: Ears: no external ear abnormality Nose: no external nose abnormality Mouth: + dry oral mucous membranes Neck: no nuchal rigidity Respiratory: normal respiratory effort Auscultation: + diminished lung sounds Cardiovascular: Rate/Rhythm: regular rate and regular rhythm Extremities: + AV fistula (+ t/b L AC); no edema Gastrointestinal (Abdomen): Inspection/Auscultation: normal bowel sounds P ercussion/Palpation: abdomen soft; abdomen nontender Musculoskeletal: Extremities: strength 5/5 throughout Skin: no rashes, warm and dry Neurologic: maza, fluent speech, no tremor Psychiatric: Orientation: alert, oriented to person, oriented to place and cooperative Results & Data Vital Signs (Past 12 Hours) Vital Signs Temp Pulse Pulse Pulse Resp BP Pulse Ox 08/11/23 14:32 36.6 C 67 19 151/77 H 96 08/11/23 11:33 36.3 C L 62 20 138/72 96 08/11/23 08:20 08/11/23 08:00 66 08/11/23 07:28 58 L 08/11/23 07:20 36.5 C 62 16 191/90 H 98 O2 Del Method 08/11/23 14:32 Room Air 08/11/23 11:33 Room Air 08/11/23 08:20 Room Air 08/11/23 08:00 08/11/23 07:28 08/11/23 07:20 Room Air Laboratory Results 08/11/23 06:33 08/11/23 06:33
[2023-08-11] MEDS: ATORVASTATIN 40 MG TAB PO SCH (20:17)
[2023-08-12] MEDS: ACETAMINOPHEN 325 MG TAB PO PRN (02:51)
--- OUTSIDE RECORDS SUMMARY | 2023-08-12 05:55 | External Medical Summary | Summary of Care ---
Author Name Unknown Organization [facility] Address [address] [place] [address] Phone [phone] Care Team Providers Care Pediatric Acute Care Unit Nurse Name Role Phone Charity Reed MD Primary Care Provider Reason for Visit * Reason Comments Blood Pressure Check BP cuff vaildation Encounter Details Date Type Department Care Team (Late st Contact Info) Description 08/10/2023 8:00 AM EDT Nurse Only Nephrology, [place] [address] [place] [address] Sp, Nurse Nephrology [address] [place] [address] Blood Pressure Check (BP cuff vaildation ) Allergies Active Allergy Reactions Criticality Noted Date Comments Pollen 05/17/2021 documented as of this encounter (statuses as of 08/10/2023) Medications Medication Sig Dispensed Refills Start Date [...] Oral TabletIndications:A lcohol use disorder, severe, dependence ([facility]) Take 1 Tablet (1 mg) by mouth in the morning. 90 Tablet 3 02/25/2022 Active OneTouch Delica Lancets 33G Use to test sugars upto 2 times daily 100 Each 3 05/02/2022 Active OneTouch Verio In Vitro Strip (Glucose Blood) Use to test sugars upto 2 timesdaily 100 Strip 3 05/02/2022 Active Acetaminophen 325 MG Oral Tablet (Tylenol) 2 Tablets. 05/30/2022 Active Aspirin 81 MG Oral Tablet Delayed ReleaseIndications: S/p left hip fracture,S/P total left hip arthroplasty,Hospit al discharge follow-up,Ischemic cardiomyopathy,Type 2 diabetes mellitus with stage 3a chronic kidney disease, with long-term current use of insulin ([facility]) Take 1 Tablet by mouth in the morning and 1 Tablet in the evening. Sp left THR for fracture 11/12/22. 11/29/2022 Active Multi-Vitamins Oral Tablet Take 1 Tablet by mouth in the morning. Active Lantus SoloStar 100 UNIT/ML Subcutaneous Solution Pen-injectorIndicat ions:Hypoglycemia,H ospital discharge follow-up,Type 2 diabetes mellitus with stage 3b chronic kidney disease, without long-term current use of insulin ([facility]),Labile blood glucose INJECT 16 UNITS SUBCUTANEOUSLY ONCE DAILY 6 mL 03/24/2023 Active Vitamin D3/PCB 4000 UNITS Oral Capsule (STUDY MED) Take 1 Capsule by mouth in the morning. Active DULoxetine HCl 30 MG Oral Capsule Delayed Release Particles (Cymbalta)Indicatio ns:Type 2 diabetes mellitus with stage 3a chronic kidney disease, with long-term current use of insulin ([facility]),History of substance abuse ([facility]),Alcohol use disorder, severe, dependence (HCC),Polyneuropath y, [...] long-term current use of insulin ([facility]),Ischemic cardiomyopathy TAKE 1 TABLET BY MOUTH IN THE MORNING 90 Tablet 3 07/06/2023 Active Desloratadine 5 MG Oral Tablet (Clarinex)Indicatio ns:Sneezing,Seasona l allergic rhinitis due to pollen Take 1 Tablet by mouth in the morning. for allergies. 90 Tablet 1 07/12/2023 Active hydrALAZINE HCl 25 MG Oral Tablet (Apresoline) Take 1 Tablet by mouth in the morning and 1 Tablet before bedtime. Active Thiamine HCl 100 MG Oral Tablet (vitamin B-1) Take 1 Tablet by mouth in the morning. Active Dexcom G7 Sensor 06/25/2023 Active BD Pen Needle Arpita 2nd Gen 32G X 4 MM USE TO INJECT INSULIN 4 TIMES A DAY 04/18/2023 Active Insulin Aspart 100 UNIT/ML Injection Solution (NovoLOG)Indication s:Type 2 DM with CKD stage 4 and hypertension ([facility]),Hospital discharge follow-up Using 5 units 10 -15 min before each meal per endo at [facility] 07/21/2023 Active NIFEdipine ER Osmotic Release 90 MG Oral Tablet Extended Release 24 Hour (Procardia XL)Indications:HTN, goal below 130/80,CKD (chronic kidney disease) stage 5, GFR less than 15 ml/min ([facility]) Take 1 Tablet by mouth every evening. Per Nate 30 Tablet 08/03/2023 Active Magnesium Oxide -Mg Supplement 400 MG Oral Capsule Take 400 mg by mouth in the morning. 30 Capsule 5 07/27/2023 Active Loperamide HCl 2 MG Oral Tablet (Immodium (A-D)) 1 Tablet as needed. 05/30/2022 Active oxyCODONE-Acetamino phen 5-325 MG Oral Tablet (Percocet) Take 1 Tablet by mouth every 6 hours as needed. 07/28/2023 Active Sodium Bicarbonate 650 MG Oral Tablet Take 2 Tablets by mouth in the morning and 2 Tablets before bedtime. 360 Tablet 3 07/31/2023 Active Torsemide 20 MG Oral Tablet (Demadex) Take 3 Tablets by mouth in the morning. 270 Tablet 3 07/31/2023 Active Carvedilol 12.5 MG Oral Tablet (Coreg)Indications: ONDINA (acute kidney injury) ([facility]),Type 2 DM with CKD stage 4 and hypertension ([facility]),HTN, goal below 140/80 Take 2 Tablets by mouth in the morning and 2 Tablets before bedtime. Take with food. 180 Tablet 3 07/31/2023 Active documented as of this encounter (statuses as of 08/10/2023) Active Problems Problem Noted Date Diagnosed Date Food insecurity 05/01/2023 Overview: Per [facility] Protocol MCI (mild cognitive impairment) 04/18/2023 Overview: Neuro eval 04/12 High serum parathyroid hormone (PTH) 04/16/2023 Vitamin D deficiency 03/26/2023 Type 2 diabetes mellitus wit h stage [...] edema 10/08/2021 Coronary artery disease invo lving kaguy[place] coronary artery of [place] heart without angina pectoris 03/26/2020 Anemia 02/14/2020 [...] as of this encounter (statuses as of 08/10/2023) Resolved Problems Problem Noted Date Diagnosed Date Resolved Date Chronic kidney disease, stage 3b 05/02/2022 07/21/2023 Overview: Per CKD protocol Chronic kidney disease, stage 3a 03/28/2022 05/04/2022 [...] as of this encounter (statuses as of 08/10/2023) Immunizations Name Administration Dates Next Due COVID-19 mRNA, LNP-s, No Pre serve, 2-Dose Series (Pfizer) 06/24/2020,06/01/2020 Pneumococcal Conjugate Vacci ne, 20-valent ([id number]) 02/25/2022 Pneumococcal Polysaccharide PPV23 (Pneumovax) 06/21/2021,04/26/2019 Seasonal Influenza Virus Vac cine, Unspecified Formulation 11/29/2022,12/23/2020 Seasonal Influenza, PF, 6 M & above, [...] drink = 0.6 oz pure alcohol) Pt states quit 01/09 Previous hx Pt says his an alcoholic; he drinks 3 gallons of vodka per week PHQ-2 Answer Date Recorded PHQ Adult Total Score 0 08/04/2023 Hunger Vital Sign Answer Date Recorded Within the past 12 months, y ou worried that your food would run out before you got the money to buy more. Sometimes true Within the past 12 months, t he food you bought just didn't last and you didn't have money to get more. Sometimes true Sex and Gender Information Value Date Recorded Sex Assigned at Male 10/21/2019 12:29 PM EDT Gender Identity Male 10/21/2019 12:29 PM EDT Sexual Orientation Straight 04/26/2019 2: 22 PM EST Job Start Date Occupation Industry Not on file Not on file Not on file documented as of this encounter Last Filed Vital Signs Vital Sign Reading Time Taken Comments Blood Pressure 229/99 08/10/2023 8:44 AM EDT Pulse 66 08/10/2023 8:44 AM EDT Temperature - - Respiratory Rate - - Oxygen Saturation - - Inhaled Oxygen Concentration - - Weight - - Height - - Body Mass Index - - documented in this encounter Nursing Notes * Ania Choudhary LPN - 08/10/2023 9:20 AM EDT Reviewed with Pt Order placed for [facility] for monitor if not covered Pt will check with [facility]aTest for available funding * Ania Choudhary LPN - 08/10/2023 8:25 AM EDT Patient identified by verbal name and date of .Nurse visit for BP cuff Validation Office [facility] Average 115/63 No Brand wrist Cuff Average 229/99 Cuff not validated documented in this encounter Plan of Treatment Upcoming Encounters Date Type Department Care Team (Late st Contact Info) Description 10/11/2023 1:00 PM EDT Office Visit General Internal Medicine [facility] [place] [address] [place] [address] Charity Reed MD [address] [place] [address] 10/24/2023 1:40 PM EDT Office Visit General Internal Medicine [facility] [place] [address] [place] [address] Charity Reed MD [address] [place] [address] 12/20/2023 8:30 AM EDT Therapy Neuropsychology [facility] [place] [address] [place] [address] Randell Grimes, PhD [address] [place] [address] 02/19/2024 3:00 PM EST Office Visit Nephrology, [facility] [address] [place] [address] Amber Cornell MD [address] [place], [place] [address] 05/23/2024 1:20 PM EST Office [facility] [employer] [address] [place] [address] Alix Rajan PA-C [address] [place] [address] 07/18/2024 3:00 PM EDT Office Visit Nephrology, [facility] [address] [place] [address] Amber Cornell MD [address] [place] [address] Scheduled Procedures Name Priority Associated Diagnoses Date/Ti me COLONOSCOPY FLEXIBLE PROXIMAL DIAGNOSTIC Recall History of colon polyps Health Maintenance Due Date Last Done Comments HIV Screening 06/17/1979 Alpha-1 Antitrypsin 1982 Cologuard 2009 Fecal Occult Blood Test 2009 Sigmoidoscopy 2009 DISCUSS TOBACCO CESSATION (REFER TO SMARTSET #3291) 05/01/2016 05/01/2015 (Discussed) Diabetic Eye Exam 04/26/2020 04/26/2019, 08/18/2017 Diabetic Foot Exam 12/23/2021 12/23/2020, 1 03/31/2019, 04/26/2019, Additional history exists COVID-19 Vaccine ( season) 2022 06/24/2020, 06/01/2020 Colonoscopy 01/05/2023 01/06/2020, 01/06/2020 Colorectal Cancer Screening 01/05/2023 HbA1c 12/27/2023 06/27/2023, 03/20, 08/22/2022, Additional history exists GFR 01/21/2024 07/21/2023, 06/19, 07/05/2023, Additional history exists PTH 06/26/2024 06/27/2023, 03/20, 11/29/2022, Additional history exists Albumin/Creatinine Ratio 07/10/2024 024, 05/17/2021, 03/18/2020, Additional history exists Hgb 07/20/2024 07/21/2023, 03/20, 03/14/2023, Additional history exists Phosphate 07/20/2024 07/21/2023, 04/0 11/2023, 04/07/2023, Additional history exists Nephrology Referral 07/30/2024 07/31/2023 O2 ASSESSMENT COMPLETED IN PAST YEAR FOR COPD 07/30/2024 07/31/2023 DTaP,Tdap,and Td Vaccines (3 - Td or Tdap) 08/05/2026 08/05/2016, 08/05/2016 Lung Cancer Screening Completed 01/16/2020 Zoster Vaccines Completed 07/15/2020, 01/30/2020 Pneumococcal Vaccine: Pediatrics (0 to 5 Years) and At-Risk Patients (6 to 64 Years) Completed 02/25/2022, 06/21/2021, 04/26/2019 Influenza Vaccine (FLU shot) Completed 09/2023, 11/29/2022, 11/29/2022, Additional history exists GARDASIL-HPV IMMUNIZATION SERIES Aged [...] Other - (no specific identity) Health Care Fast Food Server (appointed verbally by patient or by statute hierarchy) Care Teams Pediatric Acute Care Unit Nurse Relationship Specialty Start Date End Date Charity Reed MD [address] [facility] [place] [address] PCP - General Internal Medicine 12/17/19 documented as of this encounter
--- OUTSIDE RECORDS SUMMARY | 2023-08-12 05:55 | External Medical Summary | Summary of Care ---
Author Name Unknown Organization [facility] Address [address] [place] [address] Phone [phone] Care Team Providers Care Assistant Auditor Name Role Phone Charity Reed MD Primary Care Provider [phone] Reason for Visit * Reason Comments Outpatient Testing Encounter Details Date Type Department Care Team (Late st Contact Info) Description 08/10/2023 9:00 AM EDT Laboratory Laboratory [facility] [address] [place] [address] Gwendolyn Lab [facility] [address] [facility] [place] [address] CKD (chronic kidney disease) stage 5, GFR less than 15 ml/min ([facility]); HTN, goal below 130/80; Uncontrolled hypertension Allergies Active Allergy Reactions Criticality Noted Date [...] Oral TabletIndications:A lcohol use disorder, severe, dependence ([facility]) Take 1 Tablet (1 mg) by mouth [...] disease, with long-term current use of insulin ([facility]) Take 1 Tablet by mouth in the morning and 1 Tablet in the evening. Sp left THR for fracture 11/12/22. 11/29/2022 Active Multi-Vitamins Oral Tablet Take 1 Tablet by mouth in the morning. Active Lantus SoloStar 100 UNIT/ML Subcutaneous Solution Pen-injectorIndicat ions:Hypoglycemia,H ospital discharge follow-up,Type 2 diabetes mellitus with stage 3b chronic kidney disease, without long-term current use of insulin ([facility]),Labile blood glucose INJECT 16 UNITS SUBCUTANEOUSLY ONCE DAILY 6 mL 03/24/2023 Active Vitamin D3/PCB 4000 UNITS Oral Capsule (STUDY MED) Take 1 Capsule by mouth in the morning. Active DULoxetine HCl 30 MG Oral Capsule Delayed Release Particles (Cymbalta)Indicatio ns:Type 2 diabetes mellitus with stage 3a chronic kidney disease, with long-term current use of insulin ([facility]),History of substance abuse ([facility]),Alcohol use disorder, severe, dependence (HCC),Polyneuropath y, unspecified [...] disease, with long-term current use of insulin ([facility]),Ischemic cardiomyopathy TAKE 1 TABLET BY MOUTH IN [...] DM with CKD stage 4 and hypertension ([facility]),Hospital discharge follow-up Using 5 units 10 -15 min before each meal per endo at [facility] 07/21/2023 Active NIFEdipine ER Osmotic Release 90 MG Oral Tablet Extended Release 24 Hour (Procardia XL)Indications:HTN, goal below 130/80,CKD (chronic kidney disease) stage 5, GFR less than 15 ml/min ([facility]) Take 1 Tablet by mouth every evening. [...] Oral Tablet (Coreg)Indications: ONDINA (acute kidney injury) ([facility]),Type 2 DM with CKD stage 4 and hypertension ([facility]),HTN, goal below 140/80 Take 2 Tablets by [...] edema 10/08/2021 Coronary artery disease invo lving [place] coronary artery of [place] heart without angina pectoris 03/26/2020 Anemia 02/14/2020 [...] (Pfizer) 06/24/2020,06/01/2020 Pneumococcal Conjugate Vacci ne, 20-valent ([id number]) 02/25/2022 Pneumococcal Polysaccharide PPV23 (Pneumovax) 06/21/2021,04/26/2019 Seasonal [...] PM EDT Office Visit General Internal Medicine [facility] [address] [facility] [place] [address] Charity Reed MD 200 [facility] [place] [address] 10/24/2023 1:40 PM EDT Office Visit General Internal Medicine [facility] [address] [facility] [place] [address] Charity Reed MD 200 [facility] [place] [address] 12/20/2023 8:30 AM EDT Therapy Neuropsychology [facility] 200 [facility] [place] [id number] Randell Grimes, PhD 200 [facility] [place] [address] 02/19/2024 3:00 PM EST Office Visit Nephrology, [facility] [address] [employer], [place] [id number] Amber Cornell MD 200 [facility] [place] [address] 05/23/2024 1:20 PM EST Office Visit Dermatology [facility] [address] [place] [place], [place] [id number] Alix Rajan PA-C 200 [facility] [place] [address] 07/18/2024 3:00 PM EDT Office Visit Nephrology, [facility] [address] [place] [id number] Amber Cornell MD [address] [facility] [address] [place] [address] Pending Results Name Type Priority Associated Diagnoses Date /Time BASIC METABOLIC PANEL Lab Routine CKD (chronic kidney disease) stage 5, GFR less than 15 ml/min (HCC) HTN, goal below 130/80 Uncontrolled hypertension 08/10/2023 9:04 AM EDT MAGNESIUM Lab Routine CKD (chronic kidney disease) stage 5, GFR less than 15 ml/min (HCC) HTN, goal below 130/80 Uncontrolled hypertension 08/10/2023 9:04 AM EDT Scheduled Procedures Name Priority Associated [...] as of this encounter Visit Diagnoses Diagnosis CKD (chronic kidney disease) stage 5, GFR less than 15 ml/min (HCC) Chronic kidney disease, Stage V HTN, goal below 130/80 Unspecified essential hypertension Uncontrolled hypertension Unspecified essential hypertension documented in this encounter Advance Directives Healthcare Agents on File Name Relationship Healthcare Agent Relationship Communication Kavya Banks Other - (no specific identity) Health Care Leather Belt Shaper (appointed verbally by patient or by statute hierarchy) Care Teams Assistant Auditor Relationship Specialty Start Date End Date Charity Reed MD [address] [place] [address] PCP - General Internal Medicine 12/17/19 documented as of this encounter
--- OUTSIDE RECORDS SUMMARY | 2023-08-12 05:56 | External Medical Summary | Summary of Care ---
Author Name Unknown Organization [facility] Address [address] [place] [address] Phone [phone] Care Team Providers Care Export Packer Name Role Phone Charity Reed MD Primary Care Provider [phone] Reason for Visit * Reason Comments Blood Pressure Check BP cuff vaildation Encounter Details Date Type Department Care Team (Late st Contact Info) Description 08/10/2023 8:00 AM EDT Nurse Only Nephrology, [place] [address] [place] [address] Sp, Nurse Nephrology [address] [place] [address] Blood Pressure Check (BP cuff vaildation ) [...] Oral TabletIndications:A lcohol use disorder, severe, dependence ([facility]) Take 1 Tablet (1 mg) [...] disease, with long-term current use of insulin ([facility]) Take 1 Tablet by mouth in the morning and 1 Tablet in the evening. Sp left THR for fracture 11/12/22. 11/29/2022 Active Multi-Vitamins Oral Tablet Take 1 Tablet by mouth in the morning. Active Lantus SoloStar 100 UNIT/ML Subcutaneous Solution Pen-injectorIndicat ions:Hypoglycemia,H ospital discharge follow-up,Type 2 diabetes mellitus with stage 3b chronic kidney disease, without long-term current use of insulin ([facility]),Labile blood glucose INJECT 16 UNITS SUBCUTANEOUSLY ONCE DAILY 6 mL 03/24/2023 Active Vitamin D3/PCB 4000 UNITS Oral Capsule (STUDY MED) Take 1 Capsule by mouth in the morning. Active DULoxetine HCl 30 MG Oral Capsule Delayed Release Particles (Cymbalta)Indicatio ns:Type 2 diabetes mellitus with stage 3a chronic kidney disease, with long-term current use of insulin ([facility]),History of substance abuse ([facility]),Alcohol use disorder, severe, dependence (HCC),Polyneuropath [...] disease, with long-term current use of insulin ([facility]),Ischemic cardiomyopathy TAKE 1 TABLET BY [...] DM with CKD stage 4 and hypertension ([facility]),Hospital discharge follow-up Using 5 units 10 -15 min before each meal per endo at [facility] 07/21/2023 Active NIFEdipine ER Osmotic Release 90 MG Oral Tablet Extended Release 24 Hour (Procardia XL)Indications:HTN, goal below 130/80,CKD (chronic kidney disease) stage 5, GFR less than 15 ml/min ([facility]) Take 1 Tablet by mouth [...] Oral Tablet (Coreg)Indications: ONDINA (acute kidney injury) ([facility]),Type 2 DM with CKD stage 4 and hypertension ([facility]),HTN, goal below 140/80 Take 2 [...] edema 10/08/2021 Coronary artery disease invo lving kashia coronary artery of kashia heart without angina pectoris 03/26/2020 Anemia 02/14/2020 [...] (Pfizer) 06/24/2020,06/01/2020 Pneumococcal Conjugate Vacci ne, 20-valent ([id number]) 02/25/2022 Pneumococcal Polysaccharide PPV23 (Pneumovax) 06/21/2021,04/26/2019 Seasonal [...] Notes * Ania Choudhary LPN - 08/10/2023 8:25 [...] PM EDT Office Visit General Internal Medicine [facility] [place] [address] [place] [address] Charity Reed MD [address] [facility] [address] 10/24/2023 1:40 PM EDT Office Visit General Internal Medicine [facility] [place] [address] [place] [address] Charity Reed MD [address] [place] [address] [address] 12/20/2023 8:30 AM EDT Therapy Neuropsychology [facility] [place] [address] [place] [address] Randell Grimes, PhD [address] [place] [address] [address] 02/19/2024 3:00 PM EST Office Visit Nephrology, [facility] [address] [place] [address] Amber Cornell MD [address] [place] [address] [address] 05/23/2024 1:20 PM EST Office Visit Dermatology [facility] [place] [address] [place] [address] [address] Alix Rajan PA-C 200 [facility] [place] [address] 07/18/2024 3:00 PM EDT Office Visit Nephrology, [place] [address] [facility] [place] [address] Amber Cornell MD 200 [facility] [place], [place] [address] Scheduled Procedures Name Priority Associated Diagnoses Date/Ti [...] Other - (no specific identity) Health Care Fish Packer (appointed verbally by patient or by statute hierarchy) Care Teams Export Packer Relationship Specialty Start Date End Date Charity Reed MD [address] [place] [address] PCP - General Internal Medicine 12/17/19 documented as of this encounter
--- OUTSIDE RECORDS SUMMARY | 2023-08-12 05:56 | External Medical Summary ---
Author Name Unknown Address Unknown Organization [id number] [place] [address] Laboratory Report Ordering Provider Test Date Status SHERWIN ENRIQUEZ 08/10/2023 09:04:36 Final Observation Date Value Abnormality Reference (Units ) Status BUN 08/10/2023 09:04:36 73 Above high normal 6-20 (mg/dL) Final Creatinine 08/10/2023 09:04:36 4.8 Above high normal 0.6-1.2 (mg/dL) Final Glomerular filtration rate/1.73 sq M.predicted [Volume Rate/Area] in Serum, Plasma or Blood by Creatinine-based formula (CKD-EPI) 08/10/2023 09:04:36 13 Below low normal >=60 (mL/min) Final eGFR is calculated based on the CKD-EPI 2020 equation Sodium 08/10/2023 09:04:36 137 135-146 (m mol/L) Final Potassium 08/10/2023 09:04:36 6.4 Above high normal 3. 5-5.1 (mmol/L) Final Cl 08/10/2023 09:04:36 103 98-107 (mm ol/L) Final CO2 08/10/2023 09:04:36 22 22-32 (mmo l/L) Final Anion gap 08/10/2023 09:04:36 12 7-15 (mmol /L) Final Glucose 08/10/2023 09:04:36 145 Above high normal 70 -120 (mg/dL) Final Calcium 08/10/2023 09:04:36 9.3 8.4-10.2 ( mg/dL) Final Performing Location [facility] [place] [address]
--- OUTSIDE RECORDS SUMMARY | 2023-08-12 05:56 | External Medical Summary | Summary of Care ---
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 Has been going on for about a couple weeks. Family member wants to talk about a possible order for Nifedipine and wonders if patient needs to continue folic acid. Acute Encounter Details Date Type Department Care Team (Late st Contact Info) Description 07/12/2023 10:20 AM EDT Office Visit General Internal Medicine [facility] [address] [facility] [place] [address] Charity Reed MD 200 [facility] [place] [address] Worsening renal function*; Type 2 DM with CKD stage 4 and hypertension (HCC); HTN, goal below 140/80; Dyslipidemia, goal LDL below 70; Coronary artery disease involving levelock coronary artery of levelock heart without angina pectoris; Vitamin D deficiency; Tobacco use disorder; High serum parathyroid hormone (PTH); Recurrent major depressive disorder, in partial remission (HCC); Sneezing; Seasonal allergic rhinitis due to pollen Allergies Active Allergy Reactions Criticality Noted Date Comments Pollen 05/17/2021 documented as of this encounter (statuses as of 07/28/2023) Medications Medication Sig Dispensed Refills Start Date [...] disease, with long-term current use of insulin ([facility]) Take 1 Tablet by mouth in the morning and 1 Tablet in the evening. Sp left THR for fracture 11/12/22. 0 11/30/19 23 Active Multi-Vitamins Oral Tablet Take 1 Tablet by mouth in the morning. 0 Active Lantus SoloStar 100 UNIT/ML Subcutaneous Solution Pen-injectorIndica tions:Hypoglycemia ,Hospital discharge follow-up,Type 2 diabetes mellitus with stage 3b chronic kidney disease, without long-term current use of insulin ([facility]),Labile blood glucose INJECT 16 UNITS SUBCUTANEOUSLY ONCE DAILY 6 mL 0 03/24/19 24 Active Sodium Bicarbonate 650 MG Oral [...] disease, with long-term current use of insulin ([facility]),Ischemic cardiomyopathy TAKE 1 TABLET BY MOUTH IN THE MORNING 90 Tablet 3 07/06/19 24 Active Desloratadine 5 MG Oral Tablet (Clarinex)Indicati ons:Sneezing,Seaso nal allergic rhinitis due to pollen Take 1 Tablet by mouth in the morning. for allergies. 90 Tablet 1 07/12/19 24 Active Empagliflozin 10 MG Oral Tablet (Jardiance)Indicat ions:History of diabetic ketoacidosis,Type 2 diabetes mellitus with stage 3b chronic kidney disease, without long-term current use of insulin (HCC) Take 1 Tablet by mouth in the morning. Restart 03/22/2023. 30 Tablet 2 03/22/19 24 024 Discontinued Tamsulosin HCl 0.4 MG Oral Capsule (Flomax) Take 1 Capsule by mouth in the morning. 0 024 Discontinued Insulin Aspart 100 UNIT/ML Injection Solution (NovoLOG)Indicatio ns:History of diabetic ketoacidosis,Hospi noé discharge follow-up,Type 2 diabetes mellitus with stage 3b chronic kidney disease, without long-term current use of insulin ([facility]) Using 5 units if sugar >300 0 03/26/19 24 024 Discontinued NIFEdipine ER 60 MG Oral Tablet Extended Release 24 Hour (Adalat CC)Indications:HTN , goal below 140/80 TAKE 1 TABLET BY MOUTH IN THE MORNING 90 Tablet 2 07/07/19 24 024 Discontinued documented as of this encounter (statuses as of 07/28/2023) Active Problems Problem Noted Date Diagnosed Date [...] edema 10/08/2021 Coronary artery disease invo lving levelock coronary artery of levelock heart without angina pectoris 03/26/2020 Anemia 02/14/2020 [...] as of this encounter (statuses as of 07/28/2023) Resolved Problems Problem Noted Date Diagnosed Date [...] as of this encounter (statuses as of 07/28/2023) Immunizations Name Administration Dates Next Due COVID-19 mRNA, LNP-s, No Pre serve, 2-Dose Series (Asl Analytical) 06/24/2020,06/01/2020 Pneumococcal Conjugate Vacci ne, 20-valent ([id number]) 02/25/2022 Pneumococcal Polysaccharide PPV23 (Pneumovax) 06/21/2021,04/26/2019 Seasonal Influenza Virus Vac cine, Unspecified Formulation 11/29/2022,12/23/2020 Seasonal Influenza, PF, 6 M & above, IM , (FluLaval or Fluzone) 04/26/2023,11/29/2022,02/25/2022,12/23,01/30/2020,12/20/2017 TDAP (age 10 and older)(Boostrix) 08/05/2016, Zoster Vaccine Recombinant (Shingrix) 07/15/2020 ,01/30/2020 documented as of this encounter Social History Tobacco Use Types Packs/Day Years Used Date Smoking Tobacco: Every Day Cigarettes 2 40 Smokeless Tobacco: Never Tobacco Cessation:Ready to Q uit: Not Asked; Counseling Given: Not Answered Comments:11/27/20 currently smoking 1 ppd Alcohol Use [...] you got the money to buy more. Often true 07/20/19 24 Within the past 12 months, t he food you bought just didn't last and you didn't have money to get more. Often true 07/20/2023 Sex and Gender Information Value Date Recorded Sex Assigned at Male 10/21/2019 12:29 PM EDT Gender Identity Male 10/21/2019 12:29 PM EDT Sexual Orientation Straight 04/26/2019 2: 22 PM EST Job Start Date Occupation Industry Not on file Not on file Not on file documented as of this encounter Last Filed Vital Signs Vital Sign Reading Time Taken Comments Blood Pressure 120/60 07/12/2023 10:26 AM EDT Pulse 83 07/12/2023 10:26 AM EDT Temperature 36.7 C (98.1 F) 07/12/2023 10:26 AM E DT Respiratory Rate 16 07/12/2023 10:26 AM EDT Oxygen Saturation 97% 07/12/2023 10:26 AM EDT Inhaled Oxygen Concentration - - Weight 93.6 kg (206 lb 4.8 oz) 07/12/2023 10:26 AM EDT Height 179 cm (5' 10.47") 07/12/2023 10:26 AM ED T Body Mass Index 29.21 07/12/2023 10:26 AM EDT documented in this encounter Progress Notes * Charity Reed MD - 07/12/2023 10:31 AM EDT SUBJECTIVE: Dewayne Dillard is a 57 year old male. Chief Complaint Patient presents with Sinus Problem Patient reports that he is having sneezing and a runny nose. Has been going on for about a couple weeks. Family member wants to talk about a possible order for Nifedipine and wonders if patient needsto continue folic acid. Acute HPI: Patient presents today for follow-up appointment. Wt Readings from Last 6 Encounters: 07/12/23 93.6 kg (206 lb 4.8 oz) 04/13/23 89.8 kg (198 lb) 04/07/23 90.2 kg (198 lb 12.8 oz) 03/22/23 88.9 kg (195 lb 14.4 oz) 11/29/22 101.1 kg (222 lb 12.8 oz) 08/22/22 110.8 kg (244 lb 4.8 oz) BP Readings from Last 6 Encounters: 07/12/23 120/60 04/13/23 122/73 04/07/23 102/70 03/22/23 118/68 11/29/22 156/82 08/22/22 148/82 Patient was [facility] to [facility] 03/02/2023, discharged 03/10/2023 witha final diagnosis of DKA, poorly controlled type 2 diabetes, ONDINA, otitis externa, cellulitis right hand, hypertension, esophagitis. Homelessness. Patient with a history of alcohol abuse disorder, homelessness, medical noncompliance--was at [facility] and unsure how he got there> brought to the hospital with altered mental status and hypothermia, hypotensive and in DKA with the ONDINA with a creatinine of 5.2 A1c 18.3%. PMH-H/o NSTEMI December 2018 [facility] x1, h/o ischemic cardiomyopathy, Type 2DM , HTN, dyslipidemia,CKD 3 ,chronic alcohol abuse disorder, h/o obesity,fatty liver,tobacco use,h/o drug abuse wason suboxone, JUJU,multiple hospitalizations for multifactorial edema ,sob, alcohol intoxication; SCC Left arm sp Mohs surgery 11/2020., NONCOMPLIANCE; Status post left hip total arthroplasty on 11/12/[address] Fritz Was Living in a trailer home, f/b addiction casey saw operator, then had apartment at [place] and lost that also now, living in car as shelters would not take him due to his behavior, was at [facility] and they could not skilled nursing/placementCT head no acute findings, noted subtotal opacification right mastoid air cells and middle ear. CT chest abdomen pelvis-gastric mucosal fold thickening and mild thickening of the duodenal wall/falls may reflect gastroduodenitis GERD with findings of reflux esophagitis; also present severe multivessel coronary atherosclerosis dilated main pulmonary artery, emphysema. He was treated with insulin drip, seen by prosthodontist/educator and Endocrinology, juju antibody negative, C-peptide normal. Discharged on 16 units glargine daily. Had developed blisters with hemorrhagic crust dorsal rt hand, treated with vancomycin and cefepime and then to Augmentin, seen by ID and hand surgery. Right ear grew staph coagulase negative recommended follow-up ENT as outpatient. Ac on chr KI with creatinine 1.9 on discharge. Hypertension started on nifedipine 60 mg, Protonix was continued H pylori stool testing was done. Due to hypothermia workup included cortisol 35, TSH 2.2 lipase 794 on admission, thiamine and folate continued on discharge. Ultrasound venous right arm no DVT x-ray right hand no concern for osteomyelitis Discharge medications: Augmentin twice daily for 5 days, Lantus 16 units daily, multivitamin, nifedipine [address] meds-Protonix 40 mg, aspirin 81 mg, atorvastatin 80 mg, duloxetine 30 mg, folic acid 1 mg, Remeron 7.5 mg continued--but per sister this prescription was not picked up due to risk of overdose,. Now taking vitamin-D 2000 units daily, sister states he will drink alcohol given a chance, unsure whenhe had last drink Discontinued meds- amlodipine, Suboxone, carvedilol ,glipizide, Jardiance, lisinopril and Flomax. Labs at discharge sodium 134 K 3.9 sugar 238 BUN/CR 26/1.8 calcium 7.5 HB 8.6. Was seen at [facility] on 03/14/2023 due to concern of hypoglycemia. Quad swab negative, chest x-ray cardiomegaly otherwise negative. Normal CBC except hemoglobin 7.8, BMP with BUN/CR 20/2.16, calcium 7.8, albumin 2.6, magnesium 1.5,TSH 1.9, troponin 23 and 23 --they had continued his old medications which were on their list but did not follow recent Dc list which patients sister is having him follow. He lost sig wt as above. His sister has COVID infection, currently living with his daughter will bemoving in with sister until he can find housing. Blood sugars tend to fluctuate, he eats more when he is afraid he may drop or takes more insulin when his sugar is above 300. Persistent they also have NovoLog to use as needed 5 units if >300 which is not on the discharge med list. Blood sugar currently 68, he did eat a cereal bar was also given juice, he has having no symptoms of hypoglycemia. Discussed the need to follow up with MTM due to labile blood sugars, currently with no leg edema but recommend starting Jardiance daily and will try to dec use of insulin to avoid high variance in low and high blood sugars. Needs to see Neurology as soon as possible for evaluation of his memory. Hemoglobin AIC Results: Lab Results Component Value Date/Time HEMOGLOBIN A1C - [facility] 7.8 (H) 06/27/2023 09:52 AM HEMOGLOBIN A1C - [facility] 10.7 (H) 04/07/2023 03:55 PM HEMOGLOBIN A1C - [facility] 7.3 (H) 08/22/2022 11:52 AM HEMOGLOBIN A1C - [facility] 7.8 (H) 01/30/2020 12:18 PM HEMOGLOBIN A1C - [facility] 9.6 (H) 10/21/2019 01:32 PM HEMOGLOBIN A1C - [facility] 9.1 (H) 04/26/2019 03:34 PM HEMOGLOBIN A1C POCT - [facility] 9.3 (H) 05/17/2021 11:53 AM Hemoglobin Results: Lab Results Component Value Date/Time HGB 9.5 (L) 04/07/2023 03:55 PM HGB 7.8 (A) 03/14/2023 12:00 AM HGB 9.5 (L) 11/29/2022 11:39 AM HGB 8.6 (L) 11/23/2022 05:30 AM HGB 13.5 (L) 03/18/2020 12:12 PM HGB 11.8 (A) 01/19/2020 12:00 AM HGB 12.9 (L) 10/21/2019 01:32 PM HGB 16.6 12/10/2017 12:00 AM HGB 14.5 09/29/2017 11:21 PM Component Latest Ref Rng 11/29/2022 04/07/2023 06/27/2023 07/05/2023 BUN 6 - 20 mg/dL 52 (H) 62 (H) 60 (H) 71 (H) Creatinine 0.6 - 1.2 mg/dL 2.2 (H) 3.2 (H) 5.4 (H) 4.6 (H) Estimated Glomerular Filtration Rate >=60 mL/min 34 (L) 22 (L) 11 (L) 14 (L) Sodium 135 - 146 mmol/L 135 134 (L) 136 133 (L) Potassium 3.5 - 5.1 mmol/L 5.1 5.1 4.8 4.8 Chloride 98 - 107 mmol/L 101 103 103 100 CO2 22 - 32 mmol/L 22 20 (L) 20 (L) 18 (L) Anion Gap 7 - 15 mmol/L 12 11 13 15 Glucose 70 - 120 mg/dL 390 (H) 235 (H) 135 (H) 103 Calcium 8.4 - 10.2 mg/dL 9.4 8.8 9.1 8.9 Component Latest Ref Rng 07/11/2023 BUN 6 - 20 mg/dL 87 (H) Creatinine 0.6 - 1.2 mg/dL 4.7 (H) Estimated Glomerular Filtration Rate >=60 mL/min 13 (L) Sodium 135 - 146 mmol/L 134 (L) Potassium 3.5 - 5.1 mmol/L 5.1 Chloride 98 - 107 mmol/L 102 CO2 22 - 32 mmol/L 17 (L) Anion Gap 7 - 15 mmol/L 15 Glucose 70 - 120 mg/dL 184 (H) Calcium 8.4 - 10.2 mg/dL 8.9 Component Latest Ref Rng 06/27/2023 07/11/2023 Albumin, Random Urine mg/dL 361.53 Creatinine, Random Urine mg/dL 86 Albumin / Creatinine Ratio, Urine <30 mg/g Creat 204 (H) ALT 10 - 50 U/L 11 LDL Cholesterol (Direct Measure) <=129 mg/dL 98 25-Hydroxy Vitamin D >19 ng/mL 25 PTH 15 - 65 pg/mL 168 (H) Legend: (H) High Patient Active Problem List Diagnosis Code Obstructive sleep apnea of adult G47.33 Depression, major, recurrent ([facility]) F33.9 Generalized anxiety disorder F41.1 Dyslipidemia, goal LDL below 70 E78.5 Tobacco use disorder F17.200 HTN, goal below 140/80 I10 Ischemic cardiomyopathy I25.5 Alcohol use disorder, severe, dependence ([facility]) F10.20 Hx of colonic polyp Z86.010 Anemia D64.9 Fatty liver K76.0 Abnormal AST and ALT R74.8 Coronary artery disease involving levelock coronary artery of levelock heart without angina pectoris I25.10 History of nonmelanoma skin cancer Z85.828 Persistent proteinuria R80.1 Bilateral leg edema R60.0 Polyneuropathy, unspecified G62.9 History of substance abuse ([facility]) F19.11 Pulmonary emphysema ([facility]) J43.9 Hypertensive heart and chronic kidney disease with heart failure and stage 1 through stage 4 chronic kidney disease, or chronic kidney disease ([facility]) I13.0 Hx of actinic keratosis Z87.2 Chronic kidney disease, stage 3b ([facility]) N18.32 Type 2 diabetes mellitus with stage 4 chronic kidney disease, with long-term current use of insulin([facility]) E11.22, N18.4, Z79.4 Vitamin D deficiency E55.9 High serum parathyroid hormone (PTH) R79.89 MCI (mild cognitive impairment) G31.84 Food insecurity Z59.41 Current Outpatient Medications Medication Sig Dispense Refill OneTouch Ultra Blue In Vitro Strip (Glucose Blood) Use as directed 4 times a day as needed for Other (test blood sugars up to 4 times daily). Use up to four times a day as directed 100 Strip 11 OneTouch Delica Lancets 33G Use to test sugars upto 2 times daily 100 Each 3 OneTouch Verio In Vitro Strip (Glucose Blood) Use to test sugars upto 2 timesdaily 100 Strip 3 Acetaminophen 325 MG Oral Tablet (Tylenol) 2 Tablets. Aspirin 81 MG Oral Tablet Delayed Release Take 1 Tablet by mouth in the morning and 1 Tablet in theevening. Sp left THR for fracture 11/12/22. Multi-Vitamins Oral Tablet Take 1 Tablet by mouth in the morning. Insulin Aspart 100 UNIT/ML Injection Solution (NovoLOG) Using 5 units if sugar >300 Sodium Bicarbonate 650 MG Oral Tablet Take 1 Tablet by mouth in the morning and 1 Tablet before bedtime. 120 Tablet 11 Vitamin D3/PCB 4000 UNITS Oral Capsule (STUDY MED) Take 1 Capsule by mouth in the morning. DULoxetine HCl 30 MG Oral Capsule Delayed Release Particles (Cymbalta) Take 1 capsule by mouth in the morning 90 Capsule 3 Pantoprazole Sodium 40 MG Oral Tablet Delayed Release (Protonix) TAKE 1 TABLET BY MOUTH IN THE MORNING 90 Tablet 1 Atorvastatin Calcium 80 MG Oral Tablet (Lipitor) TAKE 1 TABLET BY MOUTH IN THE MORNING 90 Tablet 3 NIFEdipine ER 60 MG Oral Tablet Extended Release 24 Hour (Adalat CC) TAKE 1 TABLET BY MOUTH IN THE MORNING 90 Tablet 2 Folic Acid 1 MG Oral Tablet Take 1 Tablet (1 mg) by mouth in the morning. 90 Tablet 3 Empagliflozin 10 MG Oral Tablet (Jardiance) Take 1 Tablet by mouth in the morning. Restart 03/22/2023. 30 Tablet 2 Tamsulosin HCl 0.4 MG Oral Capsule (Flomax) Take 1 Capsule by mouth in the morning. (Patient not taking: Reported on 04/13/2023) Lantus SoloStar 100 UNIT/ML Subcutaneous Solution Pen-injector INJECT 16 UNITS SUBCUTANEOUSLY ONCE DAILY 6 mL 0 No current facility-administered medications for this visit. Review of patient's allergies indicates: Allergen Reactions Environmental [Pollen] Immunization History Administered Date(s) Administered COVID-19 mRNA, LNP-s, No Preserve, 2-Dose Series (Asl Analytical) 06/01/2020, 06/24/2020 Pneumococcal Conjugate Vaccine, 20-valent ([id number]) 02/25/2022 Pneumococcal Polysaccharide PPV23 (Pneumovax) 04/26/2019, 06/21/2021 Seasonal Influenza Virus Vaccine, Unspecified Formulation 12/23/2020 Seasonal Influenza, PF, 6 M & above, IM , (FluLaval or Fluzone) 12/20/2017, 01/30/2020, 12/23/2020, 02/25/2022, 11/29/2022 TDAP (age 10 and older)(Boostrix) 08/05/2016, 08/05/2016 Zoster Vaccine Recombinant (Shingrix) 01/30/2020, 07/15/2020 OBJECTIVE: BP 120/60 (BP Site: Left Arm, BP Position: Sitting, BP Cuff Size: Regular) | Pulse 83 | Temp 36.7 C (98.1 F) (Tympanic) | Resp 16 | Ht 1.79 m (5' 10.47") | Wt 93.6 kg (206 lb 4.8 oz) | SpO2 97% |BMI 29.21 kg/m | BSA 2.16 m PHYSICAL EXAM: General: alert, healthy, no distress, well developed, NAD Ears-nml Op mm moist, tongue sl coated Neck: supple, no adenopathy, thyroid Not enlarged without nodularity Heart: regular rhythm and rate,No murmurs. Lungs: lungs clear to auscultation Extremities: no edema Dry skin Abdomen: Soft, non-tender, normal bowel sounds, no masses or organomegaly ASSESSMENT/PLAN: Type 2 diabetes mellitus with stage 3b chronic kidney disease, without long-term current use of insulin ([facility]) - PHARMACIST MEDS THERAPY MGMT REFERRAL OP - ADULT/PEDS OPHTHALMOLOGY/OPTOMETRY REFERRAL OP - Empagliflozin 10 MG Oral Tablet (Jardiance); Take 1 Tablet by mouth in the morning. Restart 03/22/2023. - Lantus SoloStar 100 UNIT/ML Subcutaneous Solution Pen-injector; INJECT 16 UNITS SUBCUTANEOUSLY ONCE DAILY Vitamin D deficiency Postoperative anemia due to acute blood loss Coronary artery disease involving levelock coronary artery of levelock heart without angina pectoris Dyslipidemia, goal LDL below 70 HTN, goal below 140/80 History of substance abuse (HCC) History of encephalopathy Hypomagnesemia - MAGNESIUM; Future; Expected date: 03/22/2023 Tobacco use disorder Noncompliance Housing instability, housed, with risk of homelessness - NEUROLOGY REFERRAL OP Gastroesophageal reflux disease with esophagitis without hemorrhage History of alcohol abuse - NEUROLOGY REFERRAL OP Memory changes - NEUROLOGY REFERRAL OP Labile blood glucose - Lantus SoloStar 100 UNIT/ML Subcutaneous Solution Pen-injector; INJECT 16 UNITS SUBCUTANEOUSLY ONCE DAILY (This note was completed using the dictation program Fluency Direct. As such, there may be misspellings, word substitutions, or other variations that should not change the essence of the clinical content of this encounter note. If there is need for further clarification, please direct questions to the provider listed above.) Patient and / caregiver verbalizes understanding of above instructions and agrees with plan of care. Charity Reed MD 07/12/2023 documented in this encounter Nursing Notes * Kulwinder Fleming MED ASSIST - 07/12/2023 10:20 AM EDT The patient has been properly identified by confirmation of name and date of . Chief Complaint Patient presents with Sinus Problem Patient reports that he is having sneezing and a runny nose. Has been going on for about a couple weeks. Acute documented in this encounter Plan of Treatment Upcoming Encounters Date Type Department Care Team (Late st Contact Info) Description 07/31/2023 8:20 AM EDT Office Visit Nephrology, [facility] [address] [address] Amber Cornell MD [address] [place] [address] 10/11/2023 1:00 PM EDT Office Visit General Internal Medicine [facility] [address] [place] [address] [place] [address] Charity Reed MD [address] [facility] [place] [address] 10/24/2023 1:40 PM EDT Office Visit General Internal Medicine [address] [place] [address] [place] [address] Charity Reed MD [address] [place] [place] [address] 12/20/2023 8:30 AM EDT Therapy Neuropsychology [facility] [place] [address] [place] [address] Randell Grimes, PhD 200 [facility] [place] [address] 02/19/2024 3:00 PM EST Office Visit Nephrology, [facility] [address] [place] [address] Amber Cornell MD [address] [place] [address] 05/23/2024 1:20 PM EST Office Visit Dermatology [facility] [place] [address] [place] [address] Alix Rajan PA-C 200 [facility] [place] [phone] Scheduled Procedures Name Priority Associated Diagnoses Date/Ti me COLONOSCOPY FLEXIBLE PROXIMAL DIAGNOSTIC Recall History of colon polyps Health Maintenance Due Date Last Done Comments HIV Screening 06/17/1979 Alpha-1 Antitrypsin 1982 Cologuard 2009 Fecal Occult Blood Test 2009 Sigmoidoscopy 2009 DISCUSS TOBACCO CESSATION (REFER TO SMARTSET #9806) 05/01/2016 05/01/2015 (Discussed) Diabetic Eye Exam 04/26/2020 04/26/2019, 08/18/2017 Diabetic Foot Exam 12/23/2021 12/23/2020, 1 03/31/2019, 04/26/2019, Additional history exists COVID-19 Vaccine ( season) 2022 06/24/2020, 06/01/2020 Colonoscopy 01/05/2023 01/06/2020, 01/06/2020 Colorectal Cancer Screening 01/05/2023 Depression, Most Recent Score >= 10 (will fire each visit until score < 10) 05/09/2023 05/08/2023 HbA1c 12/27/2023 06/27/2023, 03/20, 08/22/2022, Additional history exists GFR 01/21/2024 07/21/2023, 06/19, 07/05/2023, Additional history exists Nephrology Referral 04/13/2024 04/13/2023 PTH 06/26/2024 06/27/2023, 03/20, 11/29/2022, Additional history exists Albumin/Creatinine Ratio 07/10/2024 024, 05/17/2021, 03/18/2020, Additional history exists Hgb 07/20/2024 07/21/2023, 03/20, 03/14/2023, Additional history exists O2 ASSESSMENT COMPLETED IN PAST YEAR FOR COPD 07/20/2024 07/21/2023 Phosphate 07/20/2024 07/21/2023, 04/0 11/2023, 04/07/2023, Additional history exists DTaP,Tdap,and Td Vaccines (3 - Td or [...] as of this encounter Visit Diagnoses Diagnosis Worsening renal function- Primary Type 2 DM with CKD stage 4 and hypertension (HCC) HTN, goal below 140/80 Unspecified essential hypertension Dyslipidemia, goal LDL below 70 Other and unspecified hyperlipidemia Coronary artery disease involving levelock coronary artery of levelock heart without angina pectoris Vitamin D deficiency Unspecified vitamin D deficiency Tobacco use disorder High serum parathyroid hormone (PTH) Recurrent major depressive disorder, in partial remission (HCC) Sneezing Other symptoms involving head and neck Seasonal allergic rhinitis due to pollen documented in this encounter Advance Directives Healthcare Agents on File Name Relationship Healthcare Agent Relationship Communication Kavya Banks Other - (no specific identity) Health Care Cannery Worker (appointed verbally by patient or by statute hierarchy) Care Teams Poultry Farm Worker Relationship Specialty Start Date End Date Charity Reed MD [address] [place] [address], [place] [id number] PCP - General Internal Medicine 12/17/19 documented as of this encounter
--- OUTSIDE RECORDS SUMMARY | 2023-08-12 05:56 | External Medical Summary | Summary of Care ---
Author Name Unknown Organization [facility] Address [address] [place] [address] Phone [phone] Care Team Providers Care Operations Trainer Name Role Phone Charity Reed MD Primary Care Provider [phone] Reason for Visit * Reason Onset Date Comments Appointment 08/09/2023 Encounter Details Date Type Department Care Team (Late st Contact Info) Description 08/09/2023 Telephone Nephrology, [facility] [address] [place] [address] Amber Cornell MD [address] [place] [address] Appointment Allergies Active Allergy Reactions Criticality Noted Date Comments Pollen 05/17/2021 documented as of this encounter (statuses as of 08/09/2023) Medications Medication Sig Dispensed Refills Start Date [...] Oral TabletIndications:A lcohol use disorder, severe, dependence ([facility]) Take 1 Tablet (1 mg) by [...] with long-term current use of insulin ([facility]) Take 1 Tablet by mouth in the morning and 1 Tablet in the evening. Sp left THR for fracture 11/12/22. 11/29/2022 Active Multi-Vitamins Oral Tablet Take 1 Tablet by mouth in the morning. Active Lantus SoloStar 100 UNIT/ML Subcutaneous Solution Pen-injectorIndicat ions:Hypoglycemia,H ospital discharge follow-up,Type 2 diabetes mellitus with stage 3b chronic kidney disease, without long-term current use of insulin ([facility]),Labile blood glucose INJECT 16 UNITS SUBCUTANEOUSLY ONCE DAILY 6 mL 03/24/2023 Active Vitamin D3/PCB 4000 UNITS Oral Capsule (STUDY MED) Take 1 Capsule by mouth in the morning. Active DULoxetine HCl 30 MG Oral Capsule Delayed Release Particles (Cymbalta)Indicatio ns:Type 2 diabetes mellitus with stage 3a chronic kidney disease, with long-term current use of insulin ([facility]),History of substance abuse ([facility]),Alcohol use disorder, severe, dependence ([facility]),Polyneuropath y, unspecified Take 1 capsule by [...] with long-term current use of insulin ([facility]),Ischemic cardiomyopathy TAKE 1 TABLET BY MOUTH [...] DM with CKD stage 4 and hypertension (HCC),Hospital discharge follow-up Using 5 units 10 -15 min before each meal per endo at [facility] 07/21/2023 Active NIFEdipine ER Osmotic Release 90 MG Oral Tablet Extended Release 24 Hour (Procardia XL)Indications:HTN, goal below 130/80,CKD (chronic kidney disease) stage 5, GFR less than 15 ml/min ([facility]) Take 1 Tablet by mouth every [...] Oral Tablet (Coreg)Indications: ONDINA (acute kidney injury) (HCC),Type 2 DM with CKD stage 4 and hypertension (HCC),HTN, goal below 140/80 Take 2 Tablets by mouth in the morning and 2 Tablets before bedtime. Take with food. 180 Tablet 3 07/31/2023 Active documented as of this encounter (statuses as of 08/09/2023) Active Problems Problem Noted Date Diagnosed Date [...] edema 10/08/2021 Coronary artery disease invo lving [place] coronary artery of [place] heart without angina pectoris 03/26/2020 Anemia 02/14/2020 [...] as of this encounter (statuses as of 08/09/2023) Resolved Problems Problem Noted Date Diagnosed Date [...] as of this encounter (statuses as of 08/09/2023) Immunizations Name Administration Dates Next Due COVID-19 mRNA, LNP-s, No Pre serve, 2-Dose Series (Pfizer) 06/24/2020,06/01/2020 Pneumococcal Conjugate Vacci ne, 20-valent ([id number]) 02/25/2022 Pneumococcal Polysaccharide PPV23 (Pneumovax) 06/21/2021,04/26/2019 Seasonal [...] encounter Miscellaneous Notes * Telephone Encounter - Felisha Alfred RN - 08/09/2023 3:52 PM EDT Te with pt's sister to schedule bp cuff validation and blood work. They are scheduled for 8am tomorrow. * Telephone Encounter - Felisha Alfred RN - 08/09/2023 3:52 PM EDT ----- Message from Amber Cornell MD sent at 07/31/2023 9:42 AM EDT ----- -bring home BP cuff in for RENAL nurse visit to check accuracy when you do labs; my nurses will contact your sister >> Kavya documented in this encounter Plan of Treatment Upcoming Encounters Date Type Department Care Team (Late st Contact Info) Description 08/10/2023 8:00 AM EDT Nurse Only Nephrology, [facility] [address] [facility] [place] [address] Sp, Nurse Nephrology [address] [facility] [place], [place] [address] 10/11/2023 1:00 PM EDT Office Visit General Internal Medicine [facility] [place] [address] [employer], [place] [address] Charity Reed MD [address] [place] [address] 10/24/2023 1:40 PM EDT Office Visit General Internal Medicine [facility] [place] [address] [place], [place] [address] Charity Reed MD [address] [place] [address] 12/20/2023 8:30 AM EDT Therapy Neuropsychology [facility] [place] [address] [place] [address] Randell Grimes, PhD [address] [facility] [place], [place] [address] 02/19/2024 3:00 PM EST Office Visit Nephrology, [facility] [address] [place] [address] Amber Cornell MD [address] [facility] [place] [address] 05/23/2024 1:20 PM EST Office Visit Dermatology [facility] [place] [address] [place] [address] Alix Rajan PA-C [address] [facility] [place] [phone] 07/18/2024 3:00 PM EDT Office Visit Nephrology, [facility] [address] [facility] [place] [address] Amber Cornell MD [address] [facility] [place] [address] Scheduled Procedures Name Priority Associated Diagnoses Date/Ti [...] 03/14/2023, Additional history exists Phosphate 07/20/2024 07/21/2023, 11/2023, 04/07/2023, Additional history exists Nephrology Referral [...] Other - (no specific identity) Health Care Respiratory Director (appointed verbally by patient or by statute hierarchy) Care Teams Operations Trainer Relationship Specialty Start Date End Date Charity Reed MD [address] [place], [place] [address] PCP - General Internal Medicine 12/17/19 documented as of this encounter
--- OUTSIDE RECORDS SUMMARY | 2023-08-12 05:56 | External Medical Summary | Summary of Care ---
Author Name Unknown Organization [facility] Address [address] [place] [address] Phone [phone] Care Team Providers Care Rn Traveling Name Role Phone Charity Reed MD Primary Care Provider [phone] Reason for Visit * Reason Comments Blood Pressure Check BP cuff vaildation Encounter Details Date Type Department Care Team (Late st Contact Info) Description 08/10/2023 8:00 AM EDT Nurse Only Nephrology, [facility] Korbel [address] [place] [address] Sp, Nurse Nephrology [address] [place] [address] Blood Pressure Check (BP cuff vaildation ) [...] Oral TabletIndications:A lcohol use disorder, severe, dependence ([facility]) Take 1 Tablet (1 mg) [...] disease, with long-term current use of insulin ([facility]) Take 1 Tablet by mouth in the morning and 1 Tablet in the evening. Sp left THR for fracture 11/12/22. 11/29/2022 Active Multi-Vitamins Oral Tablet Take 1 Tablet by mouth in the morning. Active Lantus SoloStar 100 UNIT/ML Subcutaneous Solution Pen-injectorIndicat ions:Hypoglycemia,H ospital discharge follow-up,Type 2 diabetes mellitus with stage 3b chronic kidney disease, without long-term current use of insulin ([facility]),Labile blood glucose INJECT 16 UNITS SUBCUTANEOUSLY ONCE DAILY 6 mL 03/24/2023 Active Vitamin D3/PCB 4000 UNITS Oral Capsule (STUDY MED) Take 1 Capsule by mouth in the morning. Active DULoxetine HCl 30 MG Oral Capsule Delayed Release Particles (Cymbalta)Indicatio ns:Type 2 diabetes mellitus with stage 3a chronic kidney disease, with long-term current use of insulin ([facility]),History of substance abuse ([facility]),Alcohol use disorder, severe, dependence (HCC),Polyneuropath y, [...] disease, with long-term current use of insulin ([facility]),Ischemic cardiomyopathy TAKE 1 TABLET BY [...] DM with CKD stage 4 and hypertension ([facility]),Hospital discharge follow-up Using 5 units 10 -15 min before each meal per endo at [facility] 07/21/2023 Active NIFEdipine ER Osmotic Release 90 MG Oral Tablet Extended Release 24 Hour (Procardia XL)Indications:HTN, goal below 130/80,CKD (chronic kidney disease) stage 5, GFR less than 15 ml/min ([facility]) Take 1 Tablet by mouth [...] Oral Tablet (Coreg)Indications: ONDINA (acute kidney injury) ([facility]),Type 2 DM with CKD stage 4 and hypertension ([facility]),HTN, goal below 140/80 Take 2 Tablets [...] edema 10/08/2021 Coronary artery disease invo lving [place] coronary artery of [place] heart without angina pectoris 03/26/2020 Anemia 02/14/2020 [...] (Pfizer) 06/24/2020,06/01/2020 Pneumococcal Conjugate Vacci ne, 20-valent ([id number]) 02/25/2022 Pneumococcal Polysaccharide PPV23 (Pneumovax) 06/21/2021,04/26/2019 Seasonal [...] PM EDT Office Visit General Internal Medicine [facility] [place] [address] [place] [address] Charity Reed MD [address] [facility] [place] [address] 10/24/2023 1:40 PM EDT Office Visit General Internal Medicine [facility] [place] [address] [place] [address] Charity Reed MD [address] [place] [address] 12/20/2023 8:30 AM EDT Therapy Neuropsychology [facility] [place] [address] [place] [address] Randell Grimes, PhD [address] [place] [address] 02/19/2024 3:00 PM EST Office Visit Nephrology, [facility] [address] [place] [address] Amber Cornell MD [address] [place] [address] 05/23/2024 1:20 PM EST Office Visit Dermatology [facility] [place] [address] [place] [address] Alix Rajan PA-C 200 [facility] [place] [phone] 07/18/2024 3:00 PM EDT Office Visit Nephrology, [facility] Snow [address] [facility] [place] [address] Amber Cornell MD [address] [facility] [place], [place] [address] Scheduled Procedures Name Priority Associated Diagnoses Date/Ti [...] Other - (no specific identity) Health Care Cylinder Inspector (appointed verbally by patient or by statute hierarchy) Care Teams Rn Traveling Relationship Specialty Start Date End Date Charity Reed MD [address] [place] [facility] [place] [address] PCP - General Internal Medicine 12/17/19 documented as of this encounter
--- OUTSIDE RECORDS SUMMARY | 2023-08-12 05:56 | External Medical Summary ---
Author Name Unknown Address Unknown Organization K[facility] [place] [address] Laboratory Report Ordering Provider Test Date Status SHERWIN ENRIQUEZ 08/10/2023 09:04:36 Final Observation Date Value Abnormality Reference (Units ) Status Magnesium 08/10/2023 09:04:36 2.1 1.5-2.6 (m g/dL) Final Performing Location [facility] [place] [address]
--- OUTSIDE RECORDS SUMMARY | 2023-08-12 05:56 | External Medical Summary | Summary of Care ---
Author Name Unknown Organization [facility] Address [address] [place] [address] Phone [phone] Care Team Providers Care Animal Warden Name Role Phone Shashi Reed MD Primary Care Provider [phone] Reason for Visit * Reason Comments Sinus [...] AM EDT Office Visit General Internal Medicine [facility] [address] [facility] [place] [address] Shashi Reed MD 200 [facility] [place] [address] Worsening renal function*; Type 2 DM with CKD stage 4 and hypertension (HCC); HTN, goal below 140/80; Dyslipidemia, goal LDL below 70; Coronary artery disease involving [place] coronary artery of [place] heart without angina pectoris; Vitamin D deficiency; Tobacco use disorder; High serum parathyroid hormone (PTH); Recurrent major depressive disorder, in partial remission (HCC); Sneezing; Seasonal allergic rhinitis due to pollen Allergies Active Allergy Reactions Criticality Noted Date Comments Pollen 05/17/2021 documented as of this encounter (statuses as of 08/03/2023) Medications Medication Sig Dispensed Refills Start Date [...] Oral TabletIndications: Alcohol use disorder, severe, dependence ([facility]) Take 1 Tablet (1 mg) by [...] disease, with long-term current use of insulin ([facility]) Take 1 Tablet by mouth in [...] disease, without long-term current use of insulin ([facility]),Labile blood glucose INJECT 16 UNITS SUBCUTANEOUSLY ONCE DAILY 6 mL 0 03/24/19 24 Active Vitamin D3/PCB 4000 UNITS Oral Capsule (STUDY MED) Take 1 Capsule by mouth in the morning. 0 Active DULoxetine HCl 30 MG Oral Capsule Delayed Release Particles (Cymbalta)Indicati ons:Type 2 diabetes mellitus with stage 3a chronic kidney disease, with long-term current use of insulin ([facility]),History of substance abuse (HCC),Alcohol use disorder, severe, [...] disease, without long-term current use of insulin ([facility]) Using 5 units if sugar >300 0 03/26/19 24 024 Discontinued Sodium Bicarbonate 650 MG Oral Tablet Take 1 Tablet by mouth in the morning and 1 Tablet before bedtime. 120 Tablet 11 04/13/19 24 024 Discontinued NIFEdipine ER 60 MG Oral Tablet Extended Release 24 Hour (Adalat CC)Indications:HTN , goal below 140/80 TAKE 1 TABLET BY MOUTH IN THE MORNING 90 Tablet 2 07/07/19 24 024 Discontinued documented as of this encounter (statuses as of 08/03/2023) Active Problems Problem Noted Date Diagnosed Date [...] edema 10/08/2021 Coronary artery disease invo lving [place] coronary artery of [place] heart without angina pectoris 03/26/2020 Anemia 02/14/2020 [...] as of this encounter (statuses as of 08/03/2023) Resolved Problems Problem Noted Date Diagnosed Date [...] as of this encounter (statuses as of 08/03/2023) Immunizations Name Administration Dates Next Due COVID-19 mRNA, LNP-s, No Pre serve, 2-Dose Series ([employer]) 06/24/2020,06/01/2020 Pneumococcal Conjugate Vacci ne, 20-valent ([id number]) 02/25/2022 Pneumococcal Polysaccharide PPV23 (Pneumovax) 06/21/2021,04/26/2019 Seasonal [...] documented in this encounter Progress Notes * Shashi Reed MD - 07/12/2023 10:31 AM EDT [...] 102/70 03/22/23 118/68 11/29/22 156/82 08/22/22 148/82 Dewayne was admitted to [facility] 03/02/2023, discharged 03/10/2023 with afinal diagnosis of DKA, poorly controlled type 2 diabetes, ONDINA, otitis externa, cellulitis right hand, hypertension, esophagitis. Homelessness. Patient with a history of alcohol abuse disorder, homelessness, medical noncompliance--was at [facility] and unsure how he got there> [...] Living in a trailer home, f/b addiction family independence case manager, then had apartment at [place] and lost that also now, living in car as shelters would not take him due to his behavior, was at [facility] and they could not assisted/placementCT head no acute findings, noted subtotal opacification [...] calcium 7.5 HB 8.6. Was seen at [facility] on 03/14/2023 due to concern of hypoglycemia. [...] variance in low and high blood sugars. Referred to Neurology for evaluation of his memory. 07/11-saw neurologist April 07: Nephrology April 13 and Dermatology April 26 IMPRESSION: Cognitive impairment which appears to respect the realm of short- term memory but appears to be functionally disabling. Most likely related to heavy alcohol use but can not exclude a contribution from diabetes at a control smoking. Plan MRI brain assess evidence of prior stroke injury cerebellar degeneration labs including B12 thiamine folic acid RPR neuropsych testing in part for competence Peripheral neuropathy likely alcohol or diabetes related Return in 3 months MD Capri Hudson his family independence case manager accompanies him today. They are in the process of working with the assistance office in getting an apartment and to get help with his medications. Currently living with his daughter. Brings in his pill bottles which reviewed, not taking folic acid or tamsulosin. States drinking at least 6 cups of water and some ice tea Denies symptoms of hypoglycemia average sugars around 142. Weight up 10 lb, denies any leg edema, appetite is good. Complains of excessive sneezing, runny nose. No fever or chills Reviewed labs which show progressive worsening of renal function Hemoglobin AIC Results: Lab Results Component Value [...] / Creatinine Ratio, Urine <30 mg/g Creat 4,204 (H) ALT 10 - 50 U/L 11 LDL Cholesterol (Direct Measure) <=129 mg/dL 98 25-Hydroxy Vitamin D >19 ng/mL 25 PTH 15 - 65 pg/mL 168 (H) Legend: (H) High Patient Active Problem List Diagnosis Code Obstructive sleep apnea of adult G47.33 Depression, major, recurrent (HCC) F33.9 Generalized anxiety disorder F41.1 Dyslipidemia, goal LDL below 70 E78.5 Tobacco use disorder F17.200 HTN, goal below 140/80 I10 Ischemic cardiomyopathy I25.5 Alcohol use disorder, severe, dependence (HCC) F10.20 Hx of colonic polyp Z86.010 Anemia D64.9 Fatty liver K76.0 Abnormal AST and ALT R74.8 Coronary artery disease involving [place] coronary artery of [place] heart without angina pectoris I25.10 History of nonmelanoma skin cancer Z85.828 Persistent proteinuria R80.1 Bilateral leg edema R60.0 Polyneuropathy, unspecified G62.9 History of substance abuse ([facility]) F19.11 Pulmonary emphysema ([facility]) J43.9 Hypertensive heart and chronic kidney disease with heart failure and stage 1 through stage 4 chronic kidney disease, or chronic kidney disease ([facility]) I13.0 Hx of actinic keratosis Z87.2 Chronic kidney disease, stage 3b ([facility]) N18.32 Type 2 diabetes mellitus with stage 4 chronic kidney disease, with long-term current use of insulin([facility]) E11.22, N18.4, Z79.4 Vitamin D deficiency E55.9 [...] COVID-19 mRNA, LNP-s, No Preserve, 2-Dose Series ([employer]) 06/01/2020, 06/24/2020 Pneumococcal Conjugate Vaccine, 20-valent ([id number]) 02/25/2022 Pneumococcal Polysaccharide PPV23 (Pneumovax) 04/26/2019, 06/21/2021 [...] bowel sounds, no masses or organomegaly ASSESSMENT/PLAN: Worsening renal function (Primary) Type 2 DM with CKD stage 4 and hypertension (HCC) HTN, goal below 140/80 Dyslipidemia, goal LDL below 70 Coronary artery disease involving [place] coronary artery of [place] heart without angina pectoris Vitamin D deficiency Tobacco use disorder High serum parathyroid hormone (PTH) Recurrent major depressive disorder, in partial remission (HCC) Sneezing - Desloratadine 5 MG Oral Tablet (Clarinex); Take 1 Tablet by mouth in the morning. for allergies. Seasonal allergic rhinitis due to pollen - Desloratadine 5 MG Oral Tablet (Clarinex); Take 1 Tablet by mouth in the morning. for allergies. -in view of worsening renal function despite him feeling good advised will check with Nephrology ifhe can be direct admit or needs to go through the ER. Dr. Christie messaged back to send him to be admitted through the ER Follow Up: Return in about 3 months (around 10/11/2023), or if symptoms worsen or fail to improve, for Return with Physician, Fasting Labs 2-5 Days Before Next Visit. | For: Return with Physician, Fasting Labs 2-5 Days Before Next Visit | Check-out note: To ER (This note was completed using the dictation [...] instructions and agrees with plan of care. Shashi Reed MD 07/12/2023 documented in this encounter [...] couple weeks. Acute documented in this encounter Miscellaneous Notes * Addendum Note - Shashi Reed MD - 08/03/2023 1:44 AM EDTAddended by: SHASHI REED on: 08/03/2023 01:44 AM Modules accepted: Level of Service documented in this encounter Plan of Treatment Upcoming Encounters Date Type Department Care Team (Late st Contact Info) Description 10/11/2023 1:00 PM EDT Office Visit General Internal Medicine [facility] [address] [place] [address] Shashi Reed MD [address] [place], [place] [address] 10/24/2023 1:40 PM EDT Office Visit General Internal Medicine [facility] [address] [place] [address] Shashi Reed MD [address] [place] [address] 12/20/2023 8:30 AM EDT Therapy Neuropsychology [facility] [address] [place], [place] [address] Randell Grimes, PhD [address] [facility] [address] 02/19/2024 3:00 PM EST Office Visit Nephrology, [facility] [address] [place] [address] Amber Cornell MD [address] [place], [place] [address] 05/23/2024 1:20 PM EST Office Visit Dermatology [facility] [address] [place], [place] [address] Alix Rajan PA-C 200 [facility] [place] [phone] 07/18/2024 3:00 PM EDT Office Visit Nephrology, [facility] [address] [place], [place] [id number] Amber Cornell MD 200 [facility] [place] [address] Scheduled Procedures Name Priority Associated Diagnoses Date/Ti me COLONOSCOPY FLEXIBLE PROXIMAL DIAGNOSTIC Recall History of colon polyps Health Maintenance Due Date Last Done Comments HIV Screening 06/17/1979 Alpha-1 Antitrypsin 1982 Cologuard 2009 Fecal Occult Blood Test 2009 Sigmoidoscopy 2009 DISCUSS TOBACCO CESSATION (REFER TO SMARTSET #[id number]) 05/01/2016 05/01/2015 (Discussed) Diabetic Eye Exam 04/26/2020 [...] and unspecified hyperlipidemia Coronary artery disease involving [place] coronary artery of [place] heart without angina pectoris Vitamin D deficiency [...] Other - (no specific identity) Health Care Automobile Service Station Manager (appointed verbally by patient or by statute hierarchy) Care Teams Animal Warden Relationship Specialty Start Date End Date Shashi Reed MD [address] [place] [address] PCP - General Internal Medicine 12/17/19 documented as of this encounter
[2023-08-12 07:56] LABS: Hematocrit (blood only) 30.5 % (42.0-52.0); Mean Corpuscular Hemoglobin 28.5 pg (25.0-34.0); Mean Corpuscular Hgb Conc 32.8 g/dL (32.0-36.0); Mean Corpuscular Volume 86.9 fL (80.0-100.0); Platelet Count 233 K/uL (130-400); RDW Coefficient of Variation 13.4 % (11.5-14.5); RDW Standard Deviation 42.1 fL (36.4-46.3); Red Blood Count 3.51 M/uL (4.70-6.10); White Blood Count 7.28 K/ul (4.8-10.8)
[2023-08-12 08:08] LABS: BUN Creatinine Ratio 15.7 (10-20); Creatinine Clr Calc Pharmacy 19.5 ml/min; Est GFR (African American) 14.6 ml/min; Est GFR (Non-African American) 12.6 ml/min; Magnesium 1.9 mg/dl (1.7-2.4)
--- NOTE | 2023-08-12 11:33 | Electrocardiogram Report ---
Test Reason : Blood Pressure : / mmHG Vent. Rate : 065 BPM Atrial Rate : 065 BPM P-R Int : 204 ms QRS Dur : 112 ms QT Int : 438 ms P-R-T Axes : 037 042 047 degrees QTc Int : 455 ms Normal sinus rhythm Normal ECG When compared with ECG of 11-AUG-2023 05:22, Premature atrial complexes are no longer Present Questionable change in QRS axis Confirmed by Maurice Caldwell ([id number]) on 08/12/2023 11:33:11 AM Referred By: Charity Reed Confirmed By:Maurice Caldwell
[2023-08-12] MEDS ORDERED: SODIUM ZIRCONIUM CYCLOSILICATE 10 GM PACKET PO SCH (12:15)
[2023-08-12] MEDS: SODIUM ZIRCONIUM CYCLOSILICATE 10 GM PACKET PO SCH (12:27)
--- NOTE | 2023-08-12 12:53 | Discharge Summary ---
Date of Service August 12, 2023 Admission HPI Per Admitting Provider 58-year-old male with past medical history significant for type 2 diabetes, hyperlipidemia, obstructive apnea seems noncompliant, pulmonary emphysema, hypertension, ischemic cardiomyopathy, history of CAD, CKD stage III/IV, fatty liver, persistent proteinuria, polyneuropathy, anemia, history of alcoholism, depression, generalized anxiety disorder, history of substance abuse, mild cognitive impairment, food insecurity, was homeless before currently living alone and sister helps him and also his daughter helps him per patient and was sent into the ER by nephro because of outpatient labs showed hyperkalemia potass ium of 6.4. Currently resting comfortably and hemodynamically stable. Denies any headache. Denies dizziness. No blurred visions. No earache or runny nose or sore throat. No cough. Appetite is okay. No difficulty swallowing. Denies chest pain or shortness of breath. No nausea. No abdominal pain. Normal bowel and bladder movements. States ambulates okay. Recently fistula done on right forearm which seems not matured yet. Patient was recently in the hospital and was treated for ONDINA and hyperkalemia and metabolic acidosis. Seems difficult to follow as outpatient and seems sister helping with appointments. Past med history. As mentioned above. Past surgical history. Colonoscopy. Social history. Smokes 2 packs a day for 40 years. History of chronic heavy alcohol use and was in rehab but currently not drinking. No drug use. Family history. Paternal grandmother had diabetes. Paternal grandfather had heart disorder. Maternal grandmother had heart disorder. Admission Exam Per Admitting Provider General- Not in distress. Head- atraumatic Eyes- PERRL. ENT- oropharynx clear Neck- supple, no JVD. Lungs- clear to auscultation no wheezing or crackles. Heart- regular rhythm; no murmur, no gallop. Abdomen- normal bowel sounds, soft, nontender, no distension. Extremities- no pretibial edema, no erythema seen. Neuro- alert, oriented ; PERRL, no facial palsy; no dysarthria; moves extremities. Principal Diagnosis Hyperkalemia, in CKD/ ESRD Discharge Exam General- Not in distress. Head- atraumatic Eyes- PERRL. Neck- supple, no JVD. Lungs- clear to auscultation no wheezing or crackles. Heart- regular rhythm; no murmur, no gallop. Abdomen- normal bowel sounds, soft, nontender, no distension. Extremities- no pretibial edema, no erythema seen. Neuro- alert, oriented ; PERRL, no facial palsy; no dysarthria; moves extremities. Discharge Data Allergies Allergy/AdvReac Type Severity Reaction Status Date / Time pollen extracts Allergy Intermediate SNEEZING, Verified 08/10/23 21:21 CONGESTION Consultations 08/10/23 20:38 ED Decision to Admit Stat 08/11/23 08:00 Consult Nephrology Routine Hospital Course (1) Hyperkalemia: 58 yo M with type 2 diabetes, hyperlipidemia, obstructive apnea seems noncompliant, pulmonary emphysema, hypertension, ischemic cardiomyopathy, history of CAD, CKD stage III/IV, fatty liver, persistent proteinuria, polyneuropathy, anemia, history of alcoholism, depression, generalized anxiety disorder, history of substance abuse, mild cognitive impairment, food insecurity, was homeless before currently living alone and sister helps him and also his daughter helps him per patient and was sent into the ER by nephro because of outpatient labs showed hyperkalemia potassium of 6.4. Currently resting comfortably and hemodynamically stable. Denies any headache. Denies dizziness. No blurred visions. No earache or runny nose or sore throat. No cough. Appetite is okay. No difficulty swallowing. Denies chest pain or shortness of breath. No nausea. No abdominal pain. Normal bowel and bladder movements. States ambulates okay. Recently fistula done on right forearm which seems not matured yet. Patient was recently in the hospital and was treated for ONDINA and hyperkalemia and metabolic acidosis. Seems difficult to follow as outpatient and seems sister helping with appointments. Hyperkalemia outpatient labs showed potassium of 6.4 potassium 5.2 in the ER tall T waves on EKG received IV calcium gluconate, insulin and dextrose dose of Lokelma given low potassium diet follow repeat labs telemetry follow repeat EKGs Nephrology consulted and discussed with - plan to DC on torsemide (already on this med) and lokelma - needs prior auth for that (CM involved) Hospital pharmacy will provide lokelma for next 3 days ( as it's a holiday weekend) Discussed discharge plan with nephrology and pt's sister as well. CKD stage IV / ESRD (not yet on HD) creatinine 4.5 seems around baseline rapidly progressing on torsemide and sodium bicarbonate dialysis as per nephro Diabetes continue home Lantus sliding scale we will monitor History of CAD Status post drug-eluting stents to in December 2018 On aspirin, statin History of polysubstance abuse History of alcoholism and was in rehab History of withdrawal seizures Continue folic acid, thiamine will monitor. Chronic systolic CHF EF 49% on torsemide We will monitor Obstructive sleep apnea Patient states not using CPAP for long time per last admit Will monitor Anemia Chronic Hemoglobin 9.3 Will follow labs Hypertension On nifedipine, Coreg and hydralazine cont. to monitor. Hyperlipidemia On statin Depression General Anxiety disorder On duloxetine GERD - Protonix Total Time Total Time Spent Total Time Spent (In Minutes): 40 Discharge Plan Discharge Items Patient Disposition: Home - Home Health Services Reason For Visit: HYPERKALEMIA Discharge Diagnosis: Hyperkalemia, in CKD/ ESRD Activity: Per Instructions section Non-emergency contact: Primary Care Provider and [employer] Call non-emergency contact if: you have any medication questions and your symptoms worsen Follow-up/Referrals: Charity Reed MD [Primary Care Provider] - Diet: Carb Consistent or DM2, Dialysis Renal and Low Potassium (2gm) Addtl Attending Provider Instructions: Follow up with your primary care doctor and railroad commissioner. You should have your blood work repeated (BMP) within 1 week. Take lokelma daily and take torsemide as prescribed. Lokelma for next 3 days was provided for you from the hospital. Pending Studies at Discharge: No Stand-Alone Forms: [facility] [employer], Smoking Cessation Medications and DC Order Prescriptions: New Lokelma 10 gram Powder In Packet 10 g PO DAILY Qty: 30 0RF Continued Alive Men's 50 Plus Multivit 120 mcg-150 mcg -50 mg tablet,chewable 1 tab PO QAM pantoprazole 40 mg tablet,delayed release (DR/EC) 40 mg PO QAM duloxetine [Cymbalta] 30 mg capsule,delayed release(DR/EC) 30 mg PO QAM insulin lispro [Humalog KwikPen Insulin] 100 unit/mL insulin pen 5 unit subcut TID Qty: 15 3RF Rx Instructions: Inject 5 units into the abdomen 10-15 minutes prior to meals. cholecalciferol (vitamin D3) 50 mcg (2,000 unit) capsule 100 mcg PO DAILY atorvastatin 80 mg tablet 80 mg PO HS aspirin 81 mg tablet,delayed release (DR/EC) 81 mg PO BID Qty: 60 0RF desloratadine [Clarinex] 5 mg tablet 5 mg PO QAM folic acid 1 mg Tablet 1 mg PO QAM citalopram [Celexa] 10 mg Tablet 10 mg PO QAM thiamine HCl (vitamin B1) 100 mg Tablet 100 mg PO QAM Qty: 30 0RF hydralazine 25 mg Tablet 25 mg PO BID Qty: 60 0RF magnesium oxide 400 mg (241.3 mg magnesium) Tablet 400 mg PO QAM Qty: 10 0RF carvedilol 25 mg tablet 25 mg PO BID torsemide 20 mg tablet 60 mg PO QAM sodium bicarbonate 650 mg tablet 650 mg PO BID nifedipine [Procardia XL] 30 mg tablet extended release 24hr 90 mg PO QAM insulin glargine [Lantus Solostar U-100 Insulin] 100 unit/mL (3 mL) insulin pen 16 unit subcut QAM Rx Instructions: Inject 16 units into the abdomen once a day. oxycodone-acetaminophen [Percocet] 5-325 mg tablet 1 tab PO Q6H PRN (Reason: pain) Qty: 14 0RF Discharge Orders: Discharge Order (Routine); Ordered 08/12/23 Ordered By: Germain Campbell/Other Patient Handouts: Managing Type 2 Diabetes Admission Data Admit Date/Time: 08/10/23 21:53 Attending Provider: Germain Munoz Admit Provider: Jonathan Payne Primary Care Provider: Charity Reed Other Providers: Jonathan Payne; Amber Cornell; [facility]
== END 2023-08-12 14:40 | disposition home health service (06) | DRG 291 ==
LOC: ED 18:55 → 2S 21:53

== ENCOUNTER 2023-08-23 18:14 | Inpatient (IN) ==
[2023-08-23] MEDS: DEXTROSE 50% 50 ML SYRINGE IV STA (18:51)
--- NOTE | 2023-08-23 18:51 | Emergency Department Note ---
Impression & Plan Acute confusion, Hypoglycemia, Hypothermia ED Provider Note HISTORY OF PRESENT ILLNESS: Patient is a 58-year-old male presenting with altered mental status and hypoglycemia. Patient was found by his daughters this evening very altered and confused. They went to pick him up to go to dinner. They called 911. On EMS arrival, the patient's blood sugar was noted to be 44. He was given a bag of D10 and route to the hospital. His temperature was found to be 33 Celsius per EMS prehospital. On arrival to the ER, the patient is alert and oriented. He reports he took 5 units of insulin, which is his normal evening dose, in preparation for going out to dinner with his family. He denies any long-acting insulin. He denies any chest pain or shortness of breath. Reports feeling slightly sleepy. Denies any nausea or vomiting. Denies any recent falls or head injury. ROS: as above PHYSICAL EXAM: Constitutional: Patient appears in no acute distress. HENT: Head: Normocephalic and atraumatic. Eyes: EOMI, PERRL Mouth/Throat: Mucous membranes moist. Neck: Trachea midline. Neck supple. Cardiovascular: RRR, No murmurs, rubs or gallops. Intact distal pulses. Pulmonary/Chest: No respiratory distress. Breath sounds clear and equal bilaterally. No wheezes or rales. Abdominal: Abdomen soft, no tenderness, rebound or guarding. Musculoskeletal: No edema, tenderness or deformity noted. Skin: Warm and dry. No rash, erythema, pallor or cyanosis Psychiatric: Appropriate mood and affect for situation. Neurological: Alert and keenly responsive. CN II-XII grossly intact, moving all extremities equally and fully. MDM: - Vitals signs showed bradycardia and hypothermia. - History obtained via EMS and patient. History as above. - Chronic conditions affecting care: HTN; CKD; alcohol abuse; CAD; CHF - Differential diagnoses include, but are not limited to: pneumonia; UTI; - Order placed for continuous cardiac monitoring. At this time, monitor showed rate of 69 bpm with normal sinus rhythm, per my interpretation. - External medical records reviewed. Discharge summary dated 08/12/2023 was reviewed. Patient was admitted for hyperkalemia in the setting of CKD/ESRD. - EKG interpreted by myself showed normal sinus rhythm. Rate bradycardic at 52 bpm. QT 516. No acute ischemic changes - Laboratory workup interpreted by myself showed leukocytosis (WBC 11.32) with left shift; normal PT/INR; normal lactate; elevated anion gap (13); ESRD (Cr 5.96); hypoglycemia (glucose 44); normal troponin; normal liver function; normal procalcitonin; normal TSH; negative alcohol - VBG grossly normal - CXR negative for pneumonia, per my interpretation - Patient given D10 on arrival to ER for his continued confusion and hypoglycemia. - He was placed on a warming blanket, given his hypothermia. Empirically started on IV rocephin. - CT head wo contrast negative for acute intracranial pathology, per radiology - Discussion was had with complex case manager about patient's case and need for admission - Hospitalist consulted for admission - Patient admitted to [facility] Hospitalist service for further evaluation and management. ASSESSMENT AND PLAN: Diagnosis: hypothermia; acute confusion; hypoglycemia Plan: admit Past Med/Surg History Problem List (Updated 08/23/23 @ 23:51 by Marylou Mccall MD) Hypothermia (Acute) Hypoglycemia (Acute) Acute confusion (Acute) Hypertension associated with stage 5 chronic kidney disease due to type 2 diabetes mellitus CKD (chronic kidney disease) stage 5, GFR less than 15 ml/min Hyperkalemia Anemia (Acute) Acute hyperkalemia (Acute) Acute renal insufficiency (Acute) Hyperkalemia End stage renal disease ONDINA (acute kidney injury) S/P total left hip arthroplasty Encounter for pre-operative examination Fall (Acute) Lumbar contusion (Acute) Contusion of elbow, left (Acute) Hypertension (Acute) Alcohol abuse (Acute) Closed fracture of left hip (Acute) Closed left hip fracture Non-compliance (Acute) Hyperglycemia (Acute) Abnormal LFTs (Acute) Hyponatremia (Acute) CKD (chronic kidney disease) (Acute) Alcohol withdrawal (Acute) Hypomagnesemia (Acute) Alcohol abuse (Acute) CHI (closed head injury) (Acute) Encephalopathy Hypertensive crisis Hypertensive urgency (Acute) Acute hyponatremia (Acute) Hypomagnesemia (Acute) Generalized seizure (Acute) Hydrocele Acute on chronic renal insufficiency (Acute) Hyperkalemia History of acute renal failure Acute dehydration (Acute) Cardiomyopathy (Acute) Fluid retention in legs (Acute) Leg swelling Hypomagnesemia Elevated troponin I level (Acute) Hyperglycemia due to type 2 diabetes mellitus (Acute) Alcohol intoxication (Acute) Bilateral cellulitis of lower leg (Acute) Dyslipidemia, goal LDL below 70 ASCVD (arteriosclerotic cardiovascular disease) Abnormal electrocardiogram [ECG] [EKG] Discharge planning issues Transaminitis Acute kidney injury DVT prophylaxis Alcohol abuse (Acute) Pancytopenia (Acute) CKD (chronic kidney disease), stage III Chronic pain Alcoholism (Acute) DVT prophylaxis Edema Diabetes mellitus type 2 with complications Cardiomyopathy Dyspnea Cirrhosis of liver Chronic pain syndrome CAD (coronary artery disease) CHF (congestive heart failure) (Acute) Elevated troponin (Acute) Anemia (Acute) Leukopenia (Acute) Bilateral edema of lower extremity (Acute) Acute hyperglycemia (Acute) Thrombocytopenia (Acute) Alcoholic intoxication (Acute) Alcohol withdrawal syndrome without complication Alcohol use disorder (Chronic) CATALINO (obstructive sleep apnea) (Chronic) Non-ST elevation [place] (NSTEMI) (Acute) Back pain (Chronic) CKD (chronic kidney disease) stage 4, GFR 15-29 ml/min Alcohol use disorder, severe, dependence etoh x 40 years - 1 gallon vodka per day, rehab Dec 2022, last drank in Feb 2023 Alcohol withdrawal syndrome CATALINO (obstructive sleep apnea) no CPAP Chronic anemia Proteinuria Smoking History of cardiac catheterization (Chronic) x1, [place], [facility] to proximal OM by Dr. Guerrero on 01/01/19, follows with [facility] cardio (unsure of name) Mood disorder (Chronic) Tobacco use disorder (Chronic) Neuropathy (Chronic) HTN (hypertension) (Chronic) Type 2 diabetes mellitus (Chronic) Medical History CKD (chronic kidney disease) stage 5, GFR less than 15 ml/min Poor historian all hx provided by sister, Kavya Banks Hx of encephalopathy DJD (degenerative joint disease) Back Chronic back pain History of COVID-19 x2, not hospitalized Hx of congestive heart failure Cirrhosis of liver History of asthma Hx of non-ST elevation myocardial infarction (NSTEMI) x 2, cath 2019 x 1 stent, follows with [facility] cardio (unsure of name, last visit > 9 months) TONEY (dyspnea on exertion) Ischemic cardiomyopathy Surgical History Hx of wisdom tooth extraction History of total left hip replacement (~10/2022) History of lymph node biopsy Family History Other Diabetes Heart disease Hypertension Social History Smoking Status: Current every day smoker Tobacco Type: Cigarettes Cigarettes Per Day: 3-4 cigarettes/day; Second Hand Exposure: No; Do You Dip or Chew Tobacco: No; Hx Alcohol Use: No Hx Substance Use: No Preferred Language: Jordanian Communication Ability: Effective Director Of Reservations Required: No Beliefs That Will Affect Care: None marital status: Single Current Living Situation: Alone Current Living Situation Comment: Living in car current occupational status: unemployed How many Children do You have: 2 Feels Safe at Home: Yes Assistive Devices: None Allergies Allergies Allergy/AdvReac Type Severity Reaction Status Date / Time pollen extracts Allergy Intermediate SNEEZING, Verified 08/23/23 21:28 CONGESTION Home Meds Home Medications Medication Instructions Recorded Confirmed atorvastatin 80 mg tablet 80 mg PO QAM 10/25/21 08/23/23 duloxetine 30 mg capsule,delayed 30 mg PO QAM 03/27/23 08/23/23 release (Cymbalta) [id number] 120 mcg-lutein 1 tab PO QAM 03/27/23 08/23/23 150 mcg-herb 50 mg chewable tablet (Alive Men's 50 Plus Multivitamin) pantoprazole 40 mg tablet,delayed 40 mg PO QAM 03/27/23 08/23/23 release cholecalciferol (vitamin D3) 50 100 mcg PO DAILY 06/27/23 08/23/23 mcg (2,000 unit) capsule desloratadine 5 mg tablet 5 mg PO QAM 07/12/23 08/23/23 (Clarinex) folic acid 1 mg tablet 1 mg PO QAM 07/12/23 08/23/23 insulin glargine 100 unit/mL (3 16 unit subcut QAM 07/20/23 08/23/23 mL) subcutaneous pen (Lantus Solostar U-100 Insulin) carvedilol 25 mg tablet 25 mg PO BID 08/10/23 08/23/23 sodium bicarbonate 650 mg tablet 650 mg PO BID 08/10/23 08/23/23 torsemide 20 mg tablet 60 mg PO QAM 08/10/23 08/23/23 acetaminophen 325 mg tablet 650 mg PO DIRECTED PRN 08/23/23 08/23/23 (Tylenol) PAIN/FEVER loperamide 2 mg capsule 2 mg PO DIRECTED PRN Diarrhea 08/23/23 08/23/23 nifedipine 90 mg tablet,extended 90 mg PO QPM 08/23/23 08/23/23 release 24 hr Previous Rx's Medication Instructions Recorded aspirin 81 mg tablet,delayed 81 mg PO BID #60 tabs 11/15/22 release insulin lispro 100 unit/mL 5 unit (0.05 mL) subcut TID #15 mL 03/27/23 subcutaneous pen (Humalog KwikPen (U-100) Insulin) hydralazine 25 mg tablet 25 mg PO BID #60 tabs 07/18/23 magnesium oxide 400 mg (241.3 mg 400 mg PO QAM #10 tabs 07/18/23 magnesium) tablet thiamine HCl (vitamin B1) 100 mg 100 mg PO QAM #30 tabs 07/18/23 tablet oxycodone-acetaminophen 5 mg-325 1 tab PO Q6H PRN pain #14 tabs 07/28/23 mg tablet (Percocet) sodium zirconium cyclosilicate 10 10 g PO DAILY #30 ea 08/11/23 gram oral powder packet (Lokelma) Results & Data (ED) Vital Signs Vital Signs - 24 hr 08/23/23 18:21 08/23/23 18:28 08/23/23 18:48 Temperature 33.7 C L Temperature Source Axillary Pulse Rate 52 L 55 L 52 L Pulse Rate from SpO2 Sensor 52 L Pulse Rhythm Regular Pulse Strength Normal Respiratory Rate 13 14 Respiratory Effort / Characteristics Non-Labored Spontaneous Respiratory Depth Normal Respiratory Pattern Regular Blood Pressure 130/78 130/78 Blood Pressure Mean 95 95 Blood Pressure Position Lying Pulse Oximetry 98 99 Oxygen Delivery Method Room Air Room Air Sepsis Recent Fever Within 48 Hours No Sepsis New/Unexplained Change in Mental Status N/A Sepsis Action Taken by Nursing No Action Required 08/23/23 19:00 08/23/23 19:30 08/23/23 19:45 Temperature 33.5 C L 33.5 C L 33.6 C L Temperature Source Pulse Rate 51 L 54 L 55 L Pulse Rate from SpO2 Sensor 52 L 54 L 55 L Pulse Rhythm Pulse Strength Respiratory Rate 10 L 14 19 Respiratory Effort / Characteristics Respiratory Depth Respiratory Pattern Blood Pressure Blood Pressure Mean Blood Pressure Position Pulse Oximetry 95 95 95 Oxygen Delivery Method Room Air Room Air Room Air Sepsis Recent Fever Within 48 Hours Sepsis New/Unexplained Change in Mental Status Sepsis Action Taken by Nursing 08/23/23 20:00 08/23/23 20:15 08/23/23 20:21 Temperature 33.8 C L 33.9 C L 34.0 C L Temperature Source Pulse Rate 55 L 57 L 57 L Pulse Rate from SpO2 Sensor 55 L 57 L 58 L Pulse Rhythm Pulse Strength Respiratory Rate 14 17 18 Respiratory Effort / Characteristics Respiratory Depth Respiratory Pattern Blood Pressure Blood Pressure Mean Blood Pressure Position Pulse Oximetry 94 94 94 Oxygen Delivery Method Room Air Room Air Room Air Sepsis Recent Fever Within 48 Hours Sepsis New/Unexplained Change in Mental Status Sepsis Action Taken by Nursing 08/23/23 20:39 08/23/23 20:45 08/23/23 20:57 Temperature 34.2 C L 34.3 C L Temperature Source Pulse Rate 58 L 60 Pulse Rate from SpO2 Sensor 58 L 60 Pulse Rhythm Pulse Strength Respiratory Rate 14 18 Respiratory Effort / Characteristics Respiratory Depth Respiratory Pattern Blood Pressure 120/73 Blood Pressure Mean 94 Blood Pressure Position Pulse Oximetry 94 95 Oxygen Delivery Method Room Air Room Air Sepsis Recent Fever Within 48 Hours Sepsis New/Unexplained Change in Mental Status Sepsis Action Taken by Nursing 08/23/23 21:30 08/23/23 21:42 08/23/23 21:51 Temperature 34.6 C L 34.7 C L 34.8 C L Temperature Source Pulse Rate 61 62 63 Pulse Rate from SpO2 Sensor 61 62 62 Pulse Rhythm Pulse Strength Respiratory Rate 16 17 18 Respiratory Effort / Characteristics Respiratory Depth Respiratory Pattern Blood Pressure Blood Pressure Mean Blood Pressure Position Pulse Oximetry 97 96 95 Oxygen Delivery Method Room Air Room Air Room Air Sepsis Recent Fever Within 48 Hours Sepsis New/Unexplained Change in Mental Status Sepsis Action Taken by Nursing 08/23/23 22:00 08/23/23 22:21 08/23/23 22:22 Temperature 34.9 C L 35.1 C L Temperature Source Pulse Rate 64 65 64 Pulse Rate from SpO2 Sensor 63 65 Pulse Rhythm Pulse Strength Respiratory Rate 19 16 Respiratory Effort / Characteristics Respiratory Depth Respiratory Pattern Blood Pressure 118/70 Blood Pressure Mean 86 Blood Pressure Position Pulse Oximetry 95 96 Oxygen Delivery Method Room Air Sepsis Recent Fever Within 48 Hours Sepsis New/Unexplained Change in Mental Status Sepsis Action Taken by Nursing 08/23/23 23:47 08/23/23 23:47 08/23/23 23:47 Temperature 35.8 C L Temperature Source Rectal Pulse Rate 69 Pulse Rate from SpO2 Sensor Pulse Rhythm Pulse Strength Respiratory Rate 18 Respiratory Effort / Characteristics Respiratory Depth Respiratory Pattern Blood Pressure Blood Pressure Mean Blood Pressure Position Pulse Oximetry 97 Oxygen Delivery Method Room Air Room Air Sepsis Recent Fever Within 48 Hours Sepsis New/Unexplained Change in Mental Status Sepsis Action Taken by Nursing 08/23/23 23:55 Temperature 35.9 C L Temperature Source Rectal Pulse Rate Pulse Rate from SpO2 Sensor Pulse Rhythm Pulse Strength Respiratory Rate Respiratory Effort / Characteristics Respiratory Depth Respiratory Pattern Blood Pressure Blood Pressure Mean Blood Pressure Position Pulse Oximetry Oxygen Delivery Method Sepsis Recent Fever Within 48 Hours Sepsis New/Unexplained Change in Mental Status Sepsis Action Taken by Nursing Laboratory Data 08/23/23 18:53 08/23/23 18:53 Lab Results 08/23/23 08/23/23 08/23/23 Range/Units 18:38 18:40 18:53 WBC 11.32 H (4.8-10.8) K/ul RBC 3.28 L (4.70-6.10) M/uL Hgb 9.4 L (14.0-18.0) g/dl Hct 28.1 L (42.0-52.0) % MCV 85.7 (80.0-100.0) fL MCH 28.7 (25.0-34.0) pg MCHC 33.5 (32.0-36.0) g/dL RDW Std Deviation 42.4 (36.4-46.3) fL RDW Coeff of Alberto 13.5 (11.5-14.5) % Plt Count 246 (130-400) K/uL MPV 10.2 (9.4-12.4) fL Immature Gran % (Auto) 0.4 % Neut % (Auto) 60.1 % Lymph % (Auto) 27.1 % Alexander % (Auto) 9.5 % Eos % (Auto) 2.2 % Baso % (Auto) 0.7 % Neut # (Auto) 6.79 H (1.40-6.50) K/uL Lymph # (Auto) 3.07 (1.20-3.40) K/uL Alexander # (Auto) 1.08 H (0.11-0.59) K/uL Eos # (Auto) 0.25 (0.00-0.50) K/uL Baso # (Auto) 0.08 (0.00-0.20) K/uL Immature Gran # (Auto) 0.05 (0.01-0.20) K/uL PT 11.4 (9.0-12.0) Seconds INR 1.1 (0.9-1.1) APTT 24 (21-31) Seconds PTT Ratio 0.9 VBG pH 7.38 (7.36-7.41) VBG pCO2 37 L (38-50) mmHg VBG pO2 130 mmHg VBG HCO3 22 mmol/L VBG O2 Saturation 98.4 % VBG Base Excess -2.8 mEq/L Sodium 137 (136-145) mmol/L Potassium 3.5 (3.5-5.1) mmol/L Chloride 102 (98-107) mmol/L Carbon Dioxide 22 (21-32) mmol/L Anion Gap 13 H (3-11) BUN 104 H (6-23) mg/dl Creatinine 5.96 H* (0.6-1.4) mg/dl Est Cr Clr Drug Dosing 15.6 ml/min Est GFR ( Amer) 11.0 ml/min Est GFR (Non-Af Amer) 9.5 ml/min BUN/Creatinine Ratio 17.4 (10-20) Glucose 44 L* (70-99(Fasting)) mg/dl POC Glucose 52 L* 52 L* (70-99) mg/dl Lactate (0.4-2.0) mmol/L Calcium 9.3 (8.6-10.3) mg/dl Magnesium 2.3 (1.7-2.4) mg/dl Total Bilirubin 0.4 (0.2-1.0) mg/dl AST 18 (13-39) U/L ALT 17 (7-52) U/L Alkaline Phosphatase 83 (34-104) U/L Troponin I High Sens 9.3 (0-20) pg/ml Total Protein 7.9 (6.0-8.3) gm/dl Albumin 4.2 (3.4-5.0) gm/dl Globulin 3.7 (2.5-4.0) gm/dl Albumin/Globulin Ratio 1.1 (0.9-2) Procalcitonin 0.13 (0-0.5) ng/ml TSH 2.052 (0.300-4.500) uIu/ml Urine Color Urine Appearance (Clear) Urine pH (4.5-7.5) Ur Specific [place] (1.000-1.030) Urine Protein (Negative) Urine Glucose (UA) (Negative) Urine Ketones (Negative) Urine Blood (Negative) Urine Nitrite (Negative) Urine Bilirubin (Negative) Urine Urobilinogen (Negative) Ur Leukocyte Esterase (Negative) Urine WBC (Auto) (0-5) /hpf Urine RBC (Auto) (0-2) /hpf U Hyaline Cast (Auto) (0-2) /lpf U Epithel Cells (Auto) (0-2) /hpf Urine Bacteria (Auto) (None Seen) Ethyl Alcohol mg/dL < 10.0 (<10.0) mg/dl 08/23/23 08/23/23 08/23/23 Range/Units 19:16 19:26 20:01 WBC (4.8-10.8) K/ul RBC (4.70-6.10) M/uL Hgb (14.0-18.0) g/dl Hct (42.0-52.0) % MCV (80.0-100.0) fL MCH (25.0-34.0) pg MCHC (32.0-36.0) g/dL RDW Std Deviation (36.4-46.3) fL RDW Coeff of Alberto (11.5-14.5) % Plt Count (130-400) K/uL MPV (9.4-12.4) fL Immature Gran % (Auto) % Neut % (Auto) % Lymph % (Auto) % Alexander % (Auto) % Eos % (Auto) % Baso % (Auto) % Neut # (Auto) (1.40-6.50) K/uL Lymph # (Auto) (1.20-3.40) K/uL Alexander # (Auto) (0.11-0.59) K/uL Eos # (Auto) (0.00-0.50) K/uL Baso # (Auto) (0.00-0.20) K/uL Immature Gran # (Auto) (0.01-0.20) K/uL PT (9.0-12.0) Seconds INR (0.9-1.1) APTT (21-31) Seconds PTT Ratio VBG pH (7.36-7.41) VBG pCO2 (38-50) mmHg VBG pO2 mmHg VBG HCO3 mmol/L VBG O2 Saturation % VBG Base Excess mEq/L Sodium (136-145) mmol/L Potassium (3.5-5.1) mmol/L Chloride (98-107) mmol/L Carbon Dioxide (21-32) mmol/L Anion Gap (3-11) BUN (6-23) mg/dl Creatinine (0.6-1.4) mg/dl Est Cr Clr Drug Dosing ml/min Est GFR ( Amer) ml/min Est GFR (Non-Af Amer) ml/min BUN/Creatinine Ratio (10-20) Glucose (70-99(Fasting)) mg/dl POC Glucose 147 H 115 H (70-99) mg/dl Lactate 0.9 (0.4-2.0) mmol/L Calcium (8.6-10.3) mg/dl Magnesium (1.7-2.4) mg/dl Total Bilirubin (0.2-1.0) mg/dl AST (13-39) U/L ALT (7-52) U/L Alkaline Phosphatase (34-104) U/L Troponin I High Sens (0-20) pg/ml Total Protein (6.0-8.3) gm/dl Albumin (3.4-5.0) gm/dl Globulin (2.5-4.0) gm/dl Albumin/Globulin Ratio (0.9-2) Procalcitonin (0-0.5) ng/ml TSH (0.300-4.500) uIu/ml Urine Color Urine Appearance (Clear) Urine pH (4.5-7.5) Ur Specific [place] (1.000-1.030) Urine Protein (Negative) Urine Glucose (UA) (Negative) Urine Ketones (Negative) Urine Blood (Negative) Urine Nitrite (Negative) Urine Bilirubin (Negative) Urine Urobilinogen (Negative) Ur Leukocyte Esterase (Negative) Urine WBC (Auto) (0-5) /hpf Urine RBC (Auto) (0-2) /hpf U Hyaline Cast (Auto) (0-2) /lpf U Epithel Cells (Auto) (0-2) /hpf Urine Bacteria (Auto) (None Seen) Ethyl Alcohol mg/dL (<10.0) mg/dl 08/23/23 08/23/23 08/23/23 Range/Units 21:15 22:30 23:50 WBC (4.8-10.8) K/ul RBC (4.70-6.10) M/uL Hgb (14.0-18.0) g/dl Hct (42.0-52.0) % MCV (80.0-100.0) fL MCH (25.0-34.0) pg MCHC (32.0-36.0) g/dL RDW Std Deviation (36.4-46.3) fL RDW Coeff of Alberto (11.5-14.5) % Plt Count (130-400) K/uL MPV (9.4-12.4) fL Immature Gran % (Auto) % Neut % (Auto) % Lymph % (Auto) % Alexander % (Auto) % Eos % (Auto) % Baso % (Auto) % Neut # (Auto) (1.40-6.50) K/uL Lymph # (Auto) (1.20-3.40) K/uL Alexander # (Auto) (0.11-0.59) K/uL Eos # (Auto) (0.00-0.50) K/uL Baso # (Auto) (0.00-0.20) K/uL Immature Gran # (Auto) (0.01-0.20) K/uL PT (9.0-12.0) Seconds INR (0.9-1.1) APTT (21-31) Seconds PTT Ratio VBG pH (7.36-7.41) VBG pCO2 (38-50) mmHg VBG pO2 mmHg VBG HCO3 mmol/L VBG O2 Saturation % VBG Base Excess mEq/L Sodium (136-145) mmol/L Potassium (3.5-5.1) mmol/L Chloride (98-107) mmol/L Carbon Dioxide (21-32) mmol/L Anion Gap (3-11) BUN (6-23) mg/dl Creatinine (0.6-1.4) mg/dl Est Cr Clr Drug Dosing ml/min Est GFR ( Amer) ml/min Est GFR (Non-Af Amer) ml/min BUN/Creatinine Ratio (10-20) Glucose (70-99(Fasting)) mg/dl POC Glucose 93 89 (70-99) mg/dl Lactate (0.4-2.0) mmol/L Calcium (8.6-10.3) mg/dl Magnesium (1.7-2.4) mg/dl Total Bilirubin (0.2-1.0) mg/dl AST (13-39) U/L ALT (7-52) U/L Alkaline Phosphatase (34-104) U/L Troponin I High Sens (0-20) pg/ml Total Protein (6.0-8.3) gm/dl Albumin (3.4-5.0) gm/dl Globulin (2.5-4.0) gm/dl Albumin/Globulin Ratio (0.9-2) Procalcitonin (0-0.5) ng/ml TSH (0.300-4.500) uIu/ml Urine Color Yellow Urine Appearance Clear (Clear) Urine pH 5.5 (4.5-7.5) Ur Specific [place] 1.014 (1.000-1.030) Urine Protein 3+ H (Negative) Urine Glucose (UA) Negative (Negative) Urine Ketones Negative (Negative) Urine Blood Negative (Negative) Urine Nitrite Negative (Negative) Urine Bilirubin Negative (Negative) Urine Urobilinogen Negative (Negative) Ur Leukocyte Esterase Negative (Negative) Urine WBC (Auto) 0-5 (0-5) /hpf Urine RBC (Auto) 0-2 (0-2) /hpf U Hyaline Cast (Auto) 0-2 (0-2) /lpf U Epithel Cells (Auto) 0-2 (0-2) /hpf Urine Bacteria (Auto) None Seen (None Seen) Ethyl Alcohol mg/dL (<10.0) mg/dl /08/10 Range/Units 23:53 WBC (4.8-10.8) K/ul RBC (4.70-6.10) M/uL Hgb (14.0-18.0) g/dl Hct (42.0-52.0) % MCV (80.0-100.0) fL MCH (25.0-34.0) pg MCHC (32.0-36.0) g/dL RDW Std Deviation (36.4-46.3) fL RDW Coeff of Alberto (11.5-14.5) % Plt Count (130-400) K/uL MPV (9.4-12.4) fL Immature Gran % (Auto) % Neut % (Auto) % Lymph % (Auto) % Alexander % (Auto) % Eos % (Auto) % Baso % (Auto) % Neut # (Auto) (1.40-6.50) K/uL Lymph # (Auto) (1.20-3.40) K/uL Alexander # (Auto) (0.11-0.59) K/uL Eos # (Auto) (0.00-0.50) K/uL Baso # (Auto) (0.00-0.20) K/uL Immature Gran # (Auto) (0.01-0.20) K/uL PT (9.0-12.0) Seconds INR (0.9-1.1) APTT (21-31) Seconds PTT Ratio VBG pH (7.36-7.41) VBG pCO2 (38-50) mmHg VBG pO2 mmHg VBG HCO3 mmol/L VBG O2 Saturation % VBG Base Excess mEq/L Sodium (136-145) mmol/L Potassium (3.5-5.1) mmol/L Chloride (98-107) mmol/L Carbon Dioxide (21-32) mmol/L Anion Gap (3-11) BUN (6-23) mg/dl Creatinine (0.6-1.4) mg/dl Est Cr Clr Drug Dosing ml/min Est GFR ( Amer) ml/min Est GFR (Non-Af Amer) ml/min BUN/Creatinine Ratio (10-20) Glucose (70-99(Fasting)) mg/dl POC Glucose 91 (70-99) mg/dl Lactate (0.4-2.0) mmol/L Calcium (8.6-10.3) mg/dl Magnesium (1.7-2.4) mg/dl Total Bilirubin (0.2-1.0) mg/dl AST (13-39) U/L ALT (7-52) U/L Alkaline Phosphatase (34-104) U/L Troponin I High Sens (0-20) pg/ml Total Protein (6.0-8.3) gm/dl Albumin (3.4-5.0) gm/dl Globulin (2.5-4.0) gm/dl Albumin/Globulin Ratio (0.9-2) Procalcitonin (0-0.5) ng/ml TSH (0.300-4.500) uIu/ml Urine Color Urine Appearance (Clear) Urine pH (4.5-7.5) Ur Specific [place] (1.000-1.030) Urine Protein (Negative) Urine Glucose (UA) (Negative) Urine Ketones (Negative) Urine Blood (Negative) Urine Nitrite (Negative) Urine Bilirubin (Negative) Urine Urobilinogen (Negative) Ur Leukocyte Esterase (Negative) Urine WBC (Auto) (0-5) /hpf Urine RBC (Auto) (0-2) /hpf U Hyaline Cast (Auto) (0-2) /lpf U Epithel Cells (Auto) (0-2) /hpf Urine Bacteria (Auto) (None Seen) Ethyl Alcohol mg/dL (<10.0) mg/dl Administered Medications Discontinued Medications Dextrose (Dextrose 50% 50 Ml Syringe) Confirm Administered Dose 50 ml IV .Chirply ONE Stop: 08/23/23 18:40 Last Admin: 08/23/23 18:52 Dose: Not Given Documented By: MARK Dextrose (Dextrose 50% 50 Ml Syringe) 50 ml IV NOW STA Stop: 08/23/23 18:39 Last Admin: 08/23/23 18:51 Dose: 50 ml Documented By: MARK Ceftriaxone Sodium (Rocephin) 2,000 mg in 50 mls @ 100 mls/hr IV NOW STA Stop: 08/24/23 00:20 Last Admin: 08/24/23 00:25 Dose: 100 mls/hr Documented By: MELISSAW Imaging Data Radiologist's Impression: Chest X-Ray 08/23/23 18:51 XR chest 1V not portable HISTORY: 58 years-old Male Weakness; confusion COMPARISON: 08/10/2023 TECHNIQUE: AP view of the chest FINDINGS: Cardiomediastinal and hilar silhouettes are unchanged. Atherosclerosis of the aorta. No pneumothorax, pleural effusion, airspace consolidation or pulmonary edema. Spondylitic spurring of the spine. IMPRESSION: No acute process. ACT 112: Negative or not required by law. The above report was generated using voice recognition software. It may contain grammatical, syntax or spelling errors. Electronically signed by: Suhas Ramos M.D. 08/23/2023 7:[address] 08/23/23 23:51 Exam(s): CT HEAD Without Contrast EXAM: CT Head Without Intravenous Contrast CLINICAL HISTORY: confusion. TECHNIQUE: Axial computed tomography images of the head/brain without intravenous contrast. CTDI is 35.22 mGy and DLP is 625.8 mGy-cm. Automated exposure control was utilized for the study. A dose lowering technique was utilized adhering to the principles of ALARA. COMPARISON: CT head without contrast 06/06/22 FINDINGS: Brain: The left mastoid air cells are well-aerated. No intracranial hemorrhage. No significant mass effect. No evidence for cortical infarct. Similar mild prominence of the cerebral sulci and fissures. Ventricles: No midline shift or ventriculomegaly. Bones/joints: Unremarkable. No acute fracture. Soft tissues: Unremarkable. Sinuses: Unremarkable as visualized. No acute sinusitis. Mastoid air cells: Right mastoid effusions appear slightly more extensive. IMPRESSION: 1. No acute intracranial process or significant alteration from the prior examination. 2. Right mastoid effusions appear slightly more extensive; the clinical significance of this finding is indeterminant. Mastoiditis is a clinical diagnosis. No significant overlying soft tissue abnormality. Electronically signed by: Ronak Thakkar MD 08/24/23 00:59 AM Discharge Plan Visit Data Chief Complaint: Hypoglycemia Stated Complaint: AMS, DIABETIC ED Provider: Marylou Mccall Discharge Problem: Acute confusion, Hypoglycemia, Hypothermia Forms Stand Alone Forms: My [facility] [employer] Prescriptions Prescriptions: No Action Alive Men's 50 Plus Multivit 120 mcg-150 mcg -50 mg tablet,chewable 1 tab PO QAM pantoprazole 40 mg tablet,delayed release (DR/EC) 40 mg PO QAM duloxetine [Cymbalta] 30 mg capsule,delayed release(DR/EC) 30 mg PO QAM insulin lispro [Humalog KwikPen Insulin] 100 unit/mL insulin pen 5 unit subcut TID Qty: 15 3RF Rx Instructions: Inject 5 units into the abdomen 10-15 minutes prior to meals. cholecalciferol (vitamin D3) 50 mcg (2,000 unit) capsule 100 mcg PO DAILY atorvastatin 80 mg tablet 80 mg PO QAM aspirin 81 mg tablet,delayed release (DR/EC) 81 mg PO BID Qty: 60 0RF desloratadine [Clarinex] 5 mg tablet 5 mg PO QAM folic acid 1 mg Tablet 1 mg PO QAM thiamine HCl (vitamin B1) 100 mg Tablet 100 mg PO QAM Qty: 30 0RF hydralazine 25 mg Tablet 25 mg PO BID Qty: 60 0RF magnesium oxide 400 mg (241.3 mg magnesium) Tablet 400 mg PO QAM Qty: 10 0RF carvedilol 25 mg tablet 25 mg PO BID Rx Instructions: PER EXT MED HX. torsemide 20 mg tablet 60 mg PO QAM sodium bicarbonate 650 mg tablet 650 mg PO BID Lokelma 10 gram Powder In Packet 10 g PO DAILY Qty: 30 0RF insulin glargine [Lantus Solostar U-100 Insulin] 100 unit/mL (3 mL) insulin pen 16 unit subcut QAM Rx Instructions: Inject 16 units into the abdomen once a day. oxycodone-acetaminophen [Percocet] 5-325 mg tablet 1 tab PO Q6H PRN (Reason: pain) Qty: 14 0RF acetaminophen [Tylenol] 325 mg Tablet 650 mg PO DIRECTED PRN (Reason: PAIN/FEVER) loperamide [Imodium] 2 mg Capsule 2 mg PO DIRECTED PRN (Reason: Diarrhea) nifedipine 90 mg tablet extended release 24hr 90 mg PO QPM Referrals Referrals: Charity Reed MD [Primary Care Provider] -
[2023-08-23] MEDS: DEXTROSE 50% 50 ML SYRINGE IV ONE (18:52)
--- NOTE | 2023-08-23 19:03 | XRay Report ---
XR chest 1V not portable HISTORY: 58 years-old Male Weakness; confusion COMPARISON: 08/10/2023 TECHNIQUE: AP view of the chest FINDINGS: Cardiomediastinal and hilar silhouettes are unchanged. Atherosclerosis of the aorta. No pneumothorax, pleural effusion, airspace consolidation or pulmonary edema. Spondylitic spurring of the spine. IMPRESSION: No acute process. ACT 112: Negative or not required by law. The above report was generated using voice recognition software. It may contain grammatical, syntax o r spelling errors. Electronically signed by: Suhas Ramos M.D. 08/23/2023 7:02 PM
[2023-08-23 19:17] LABS: Basophils # (auto) 0.08 K/uL (0.00-0.20); Basophils % (auto) 0.7 %; Eosinophils # (auto) 0.25 K/uL (0.00-0.50); Eosinophils % (auto) 2.2 %; Hematocrit (blood only) 28.1 % (42.0-52.0); Hemoglobin 9.4 g/dl (14.0-18.0); Immature Granulocytes # (auto) 0.05 K/uL (0.01-0.20); Immature Granulocytes % (auto) 0.4 %; Lymphocytes # (auto) 3.07 K/uL (1.20-3.40); Lymphocytes % (auto) 27.1 %; Mean Corpuscular Hemoglobin 28.7 pg (25.0-34.0); Mean Corpuscular Hgb Conc 33.5 g/dL (32.0-36.0); Mean Corpuscular Volume 85.7 fL (80.0-100.0); Mean Platelet Volume 10.2 fL (9.4-12.4); Monocytes # (auto) 1.08 K/uL (0.11-0.59); Monocytes % (auto) 9.5 %; Neutrophils # (auto) 6.79 K/uL (1.40-6.50); Neutrophils % (auto) 60.1 %; Platelet Count 246 K/uL (130-400); RDW Coefficient of Variation 13.5 % (11.5-14.5); RDW Standard Deviation 42.4 fL (36.4-46.3); Red Blood Count 3.28 M/uL (4.70-6.10); White Blood Count 11.32 K/ul (4.8-10.8)
[2023-08-23 19:20] LABS: Base Excess VBG -2.8 mEq/L; HCO3 VBG 22 mmol/L; Oxygen Saturation VBG 98.4 %; PCO2 VBG 37 mmHg (38-50); PO2 VBG 130 mmHg; pH VBG 7.38 (7.36-7.41)
[2023-08-23 19:35] LABS: Albumin Globulin Ratio 1.1 (0.9-2); Albumin Level 4.2 gm/dl (3.4-5.0); BUN Creatinine Ratio 17.4 (10-20); Bilirubin,Total 0.4 mg/dl (0.2-1.0); Calcium 9.3 mg/dl (8.6-10.3); Creatinine Clr Calc Pharmacy 15.6 ml/min; Est GFR (Non-African American) 9.5 ml/min; Globulin 3.7 gm/dl (2.5-4.0); Magnesium 2.3 mg/dl (1.7-2.4); Potassium 3.5 mmol/L (3.5-5.1); Total Protein 7.9 gm/dl (6.0-8.3)
[2023-08-23 19:38] LABS: INR 1.1 (0.9-1.1); Partial Thromboplastin Ratio 0.9; Partial Thromboplastin Time 24 Seconds (21-31); Prothrombin Time 11.4 Seconds (9.0-12.0)
[2023-08-23 19:41] LABS: Troponin I High Sensitivity 9.3 pg/ml (0-20)
[2023-08-23 19:50] LABS: Thyroid Stimulating Hormone 2.052 uIu/ml (0.300-4.500)
[2023-08-24 00:01] LABS: Appearance Urine Clear (Clear); Bacteria Urine Automated None Seen (None Seen); Bilirubin Urine Negative (Negative); Blood Urine Negative (Negative); Cast Urine Automated 0-2 /lpf (0-2); Color Urine Yellow; Epithelial Cell Urine Auto 0-2 /hpf (0-2); Glucose Urine UA Negative (Negative); Ketones Urine Negative (Negative); Leukocyte Esterase Urine Negative (Negative); Nitrite Urine Negative (Negative); Protein Urine 3+ (Negative); RBC Urine Automated 0-2 /hpf (0-2); Specific Gravity Urine 1.014 (1.000-1.030); Urobilinogen Urine Negative (Negative); WBC Urine Automated 0-5 /hpf (0-5); pH Urine 5.5 (4.5-7.5)
[2023-08-24] MEDS: cefTRIAXone SODIUM 2,000 MG/50 ML BAG IV STA (00:25)
--- NOTE | 2023-08-24 00:40 | History & Physical Report ---
Date of Service August 24, 2023 Assessment & Plan (1) Encephalopathy: Plan: Secondary to hypoglycemia Patient took Premeal suppertime insulin while waiting for family to pick him up for dinner. Secondary to hypoglycemia Inadvertent intake of Premeal insulin without immediate access to food ARF on CKD contributory to decrease insulin clearance resulting in hypoglycemia DM 2 insulin requiring, reasonable control as of recent hemoglobin A1c of 7.4 last month. Hypothermia secondary to hypoglycemia Patient not septic chronic diastolic heart failure secondary to ischemic cardiomyopathy (EF 55-59 %, TTE 2021), patient euvolemic to dry hx CAD status post stent hypertension, stable hyperlipidemia, on statin Rx COPD as per records, CATALINO/CPAP non-compliance, chronic smoker's cough symptoms anxiety/mood disorder, at baseline chronic anemia, hemoglobin at baseline substance abuse as per records past alcohol use ongoing tobacco abuse Possible functional disability given recurrent admissions OBS Medical telemetry Basal and bolus insulin for now Resume insulin prep once BSG consistently above 110 Patient counseled regarding dangers of taking Premeal short-acting insulin without immediate access to food. Tre mcelroy for now Baseline UA Monitor creatinine response to IVF, hold home diuretic for now Nephrology consult Re: ARF on CKD Nicotine patch as needed PT OT eval DVT prophylaxis. Heparin subcu Full code Patient requests for sister to be updated of his progress/plan of care. Ms. Kavya Banks, contact #[phone]. Text document was generated using [employer] voice recognition software. It may contain grammatical or spelling errors. Kindly contact undersigned for clarification of any documentation item in question History of Present Illness Chief Complaint: Confusion as per records Primary Care Provider: Charity Reed MD History obtained from patient and records. Limited history from patient secondary to confusion. Medical history significant for chronic diastolic heart failure secondary to ischemic cardiomyopathy (EF 55-59 %, TTE 2021), CAD status post stent, hypertension, hyperlipidemia, COPD as per records, CATALINO/CPAP non-compliance, DM 2 insulin requiring, CKD (4s), anxiety/mood disorder, chronic anemia (baseline hemoglobin 9-10), history alcohol withdrawal seizures, medication noncompliance, substance abuse as per records, past alcohol use, ongoing tobacco abuse Monthly admissions in the last 2 months. Recent confinement 2 weeks ago for hyperkalemia in the setting of CKD/ESRD. Patient discharged on torsemide and Lokelma Rx. Patient noted to be disoriented at home when per family past by to pick him up for dinner. EMS called to patient's home. Blood sugar noted to be 44, temperature noted to be 33 degrees Celsius. D10 water administered by EMS. Patient more awake upon arrival at the ER. He took Premeal subcutaneous insulin supposedly to be taken right before dinner while waiting for family to pick him up to go to a restaurant. Denies headache, chest pain, SOB, abdominal pain. IV ceftriaxone administered at the ER. Medical Historyas above Surgical History : Vascular procedures, hip surgery Family History : Heart disease, diabetes Personal/Social history : 1/2 pack daily, past alcohol abuse, currently unemployed Allergies Allergy/AdvReac Type Severity Reaction Status Date / Time pollen extracts Allergy Intermediate SNEEZING, Verified 08/23/23 21:28 CONGESTION Home Medications Medication Instructions Recorded Confirmed Type atorvastatin 80 mg tablet 80 mg PO QAM 10/25/21 08/23/23 History aspirin 81 mg tablet,delayed 81 mg PO BID #60 tabs 11/15/22 08/23/23 Rx release duloxetine 30 mg capsule,delayed 30 mg PO QAM 03/27/23 08/23/23 History release (Cymbalta) insulin lispro 100 unit/mL 5 unit (0.05 mL) subcut TID #15 mL 03/27/23 08/23/23 Rx subcutaneous pen (Humalog KwikPen (U-100) Insulin) [id number] 120 mcg-lutein 1 tab PO QAM 03/27/23 08/23/23 History 150 mcg-herb 50 mg chewable tablet (Alive Men's 50 Plus Multivitamin) pantoprazole 40 mg tablet,delayed 40 mg PO QAM 03/27/23 08/23/23 History release cholecalciferol (vitamin D3) 50 100 mcg PO DAILY 06/27/23 08/23/23 History mcg (2,000 unit) capsule desloratadine 5 mg tablet 5 mg PO QAM 07/12/23 08/23/23 History (Clarinex) folic acid 1 mg tablet 1 mg PO QAM 07/12/23 08/23/23 History hydralazine 25 mg tablet 25 mg PO BID #60 tabs 07/18/23 08/23/23 Rx magnesium oxide 400 mg (241.3 mg 400 mg PO QAM #10 tabs 07/18/23 08/23/23 Rx magnesium) tablet thiamine HCl (vitamin B1) 100 mg 100 mg PO QAM #30 tabs 07/18/23 08/23/23 Rx tablet insulin glargine 100 unit/mL (3 16 unit subcut QAM 07/20/23 08/23/23 History mL) subcutaneous pen (Lantus Solostar U-100 Insulin) oxycodone-acetaminophen 5 mg-325 1 tab PO Q6H PRN pain #14 tabs 07/28/23 4 Rx mg tablet (Percocet) carvedilol 25 mg tablet 25 mg PO BID 08/10/23 08/23/23 History sodium bicarbonate 650 mg tablet 650 mg PO BID 08/10/23 08/23/23 History torsemide 20 mg tablet 60 mg PO QAM 08/10/23 08/23/23 History sodium zirconium cyclosilicate 10 10 g PO DAILY #30 ea 08/11/23 08/23/23 Rx gram oral powder packet (Lokelma) acetaminophen 325 mg tablet 650 mg PO DIRECTED PRN 08/23/23 08/23/23 History (Tylenol) PAIN/FEVER loperamide 2 mg capsule 2 mg PO DIRECTED PRN Diarrhea 08/23/23 08/23/23 History nifedipine 90 mg tablet,extended 90 mg PO QPM 08/23/23 08/23/23 History release 24 hr Past Med/Surg History Problem List (Updated 08/23/23 @ 23:51 by Marylou Mccall MD) Hypothermia (Acute) Hypoglycemia (Acute) Acute confusion (Acute) Hypertension associated with stage 5 chronic kidney disease due to type 2 diabetes mellitus CKD (chronic kidney disease) stage 5, GFR less than 15 ml/min Hyperkalemia Anemia (Acute) Acute hyperkalemia (Acute) Acute renal insufficiency (Acute) Hyperkalemia End stage renal disease ONDINA (acute kidney injury) S/P total left hip arthroplasty Encounter for pre-operative examination Fall (Acute) Lumbar contusion (Acute) Contusion of elbow, left (Acute) Hypertension (Acute) Alcohol abuse (Acute) Closed fracture of left hip (Acute) Closed left hip fracture Non-compliance (Acute) Hyperglycemia (Acute) Abnormal LFTs (Acute) Hyponatremia (Acute) CKD (chronic kidney disease) (Acute) Alcohol withdrawal (Acute) Hypomagnesemia (Acute) Alcohol abuse (Acute) CHI (closed head injury) (Acute) Encephalopathy Hypertensive crisis Hypertensive urgency (Acute) Acute hyponatremia (Acute) Hypomagnesemia (Acute) Generalized seizure (Acute) Hydrocele Acute on chronic renal insufficiency (Acute) Hyperkalemia History of acute renal failure Acute dehydration (Acute) Cardiomyopathy (Acute) Fluid retention in legs (Acute) Leg swelling Hypomagnesemia Elevated troponin I level (Acute) Hyperglycemia due to type 2 diabetes mellitus (Acute) Alcohol intoxication (Acute) Bilateral cellulitis of lower leg (Acute) Dyslipidemia, goal LDL below 70 ASCVD (arteriosclerotic cardiovascular disease) Abnormal electrocardiogram [ECG] [EKG] Discharge planning issues Transaminitis Acute kidney injury DVT prophylaxis Alcohol abuse (Acute) Pancytopenia (Acute) CKD (chronic kidney disease), stage III Chronic pain Alcoholism (Acute) DVT prophylaxis Edema Diabetes mellitus type 2 with complications Cardiomyopathy Dyspnea Cirrhosis of liver Chronic pain syndrome CAD (coronary artery disease) CHF (congestive heart failure) (Acute) Elevated troponin (Acute) Anemia (Acute) Leukopenia (Acute) Bilateral edema of lower extremity (Acute) Acute hyperglycemia (Acute) Thrombocytopenia (Acute) Alcoholic intoxication (Acute) Alcohol withdrawal syndrome without complication Alcohol use disorder (Chronic) CATALINO (obstructive sleep apnea) (Chronic) Non-ST elevation CA (NSTEMI) (Acute) Back pain (Chronic) CKD (chronic kidney disease) stage 4, GFR 15-29 ml/min Alcohol use disorder, severe, dependence etoh x 40 years - 1 gallon vodka per day, rehab Dec 2022, last drank in Feb 2023 Alcohol withdrawal syndrome CATALINO (obstructive sleep apnea) no CPAP Chronic anemia Proteinuria Smoking History of cardiac catheterization (Chronic) x1, CA, ELIESER to proximal OM by Dr. Guerrero on 01/01/19, follows with [facility] (unsure of name) Mood disorder (Chronic) Tobacco use disorder (Chronic) Neuropathy (Chronic) HTN (hypertension) (Chronic) Type 2 diabetes mellitus (Chronic) Medical History CKD (chronic kidney disease) stage 5, GFR less than 15 ml/min Poor historian all hx provided by sister, Kavya Banks Hx of encephalopathy DJD (degenerative joint disease) Back Chronic back pain History of COVID-19 x2, not hospitalized Hx of congestive heart failure Cirrhosis of liver History of asthma Hx of non-ST elevation myocardial infarction (NSTEMI) x 2, cath 2019 x 1 stent, follows with [facility] (unsure of name, last visit > 9 months) TONEY (dyspnea on exertion) Ischemic cardiomyopathy Surgical History Hx of wisdom tooth extraction History of total left hip replacement (~10/2022) History of lymph node biopsy Family History Other Diabetes Heart disease Hypertension Social History Smoking Status: Current every day smoker Tobacco Type: Cigarettes Cigarettes Per Day: 3-4 cigarettes/day; Second Hand Exposure: No; Do You Dip or Chew Tobacco: No; Hx Alcohol Use: No Hx Substance Use: No Preferred Language: Gibraltarian Communication Ability: Effective Re Examiner Required: No Beliefs That Will Affect Care: None marital status: Single Current Living Situation: Alone Current Living Situation Comment: Living in car current occupational status: unemployed How many Children do You have: 2 Feels Safe at Home: Yes Safety Concerns: Feels Safe At This Time Assistive Devices: None Review of Systems Review of Systems: As per HPI, all other systems reviewed and negative Physical Exam Physical Exam: GENERAL: obese, comfortable, pleasant, no respiratory distress SKIN: Pallor, cool HEENT: Pale palpebral conjunctivae, no ptosis, dry buccal mucosa NECK : Supple, short neck, no tenderness CHEST : Decreased breath sounds, occasional expiratory wheezes, no tenderness HEART : RRR, systolic murmur ABDOMEN: Some distention, nontender EXTREMITIES : Minimal LE swelling, no LE tenderness NEUROLOGIC : Coherent, no facial asymmetry, gait and stance not assessed Results & Data Results & Data Vital Signs (Past 12 Hours) Vital Signs Temp Pulse Resp BP Pulse Ox O2 Del Method 08/23/23 23:55 35.9 C L 08/23/23 23:47 35.8 C L 08/23/23 23:47 69 18 97 Room Air 08/23/23 23:47 Room Air 08/23/23 22:22 64 08/23/23 22:21 35.1 C L 65 16 96 08/23/23 22:00 34.9 C L 64 19 118/70 95 Room Air 08/23/23 21:51 34.8 C L 63 18 95 Room Air 08/23/23 21:42 34.7 C L 62 17 96 Room Air 08/23/23 21:30 34.6 C L 61 16 97 Room Air 08/23/23 20:57 34.3 C L 60 18 95 Room Air 08/23/23 20:45 120/73 08/23/23 20:39 34.2 C L 58 L 14 94 Room Air 08/23/23 20:21 34.0 C L 57 L 18 94 Room Air 08/23/23 20:15 33.9 C L 57 L 17 94 Room Air 08/23/23 20:00 33.8 C L 55 L 14 94 Room Air 08/23/23 19:45 33.6 C L 55 L 19 95 Room Air 08/23/23 19:30 33.5 C L 54 L 14 95 Room Air 08/23/23 19:00 33.5 C L 51 L 10 L 95 Room Air 08/23/23 18:48 52 L 08/23/23 18:28 33.7 C L 55 L 14 130/78 99 Room Air 08/23/23 18:21 52 L 13 130/78 98 Room Air Laboratory Results Laboratory Results WBC 11.32 K/ul (4.8-10.8) H 08/23/23 18:53 RBC 3.28 M/uL (4.70-6.10) L 08/23/23 18:53 Hgb 9.4 g/dl (14.0-18.0) L 08/23/23 18:53 Hct 28.1 % (42.0-52.0) L 08/23/23 18:53 MCV 85.7 fL (80.0-100.0) 08/23/23 18:53 MCH 28.7 pg (25.0-34.0) 08/23/23 18:53 MCHC 33.5 g/dL (32.0-36.0) 08/23/23 18:53 RDW Std Deviation 42.4 fL (36.4-46.3) 08/23/23 18:53 RDW Coeff of Alberto 13.5 % (11.5-14.5) 08/23/23 18:53 Plt Count 246 K/uL (130-400) 08/23/23 18:53 MPV 10.2 fL (9.4-12.4) 08/23/23 18:53 Immature Gran % (Auto) 0.4 % 08/23/23 18:53 Neut % (Auto) 60.1 % 08/23/23 18:53 Lymph % (Auto) 27.1 % 08/23/23 18:53 [place] % (Auto) 9.5 % 08/23/23 18:53 Eos % (Auto) 2.2 % 08/23/23 18:53 Baso % (Auto) 0.7 % 08/23/23 18:53 Neut # (Auto) 6.79 K/uL (1.40-6.50) H 08/23/23 18:53 Lymph # (Auto) 3.07 K/uL (1.20-3.40) 08/23/23 18:53 [place] # (Auto) 1.08 K/uL (0.11-0.59) H 08/23/23 18:53 Eos # (Auto) 0.25 K/uL (0.00-0.50) 08/23/23 18:53 Baso # (Auto) 0.08 K/uL (0.00-0.20) 08/23/23 18:53 Immature Gran # (Auto) 0.05 K/uL (0.01-0.20) 08/23/23 18:53 PT 11.4 Seconds (9.0-12.0) 08/23/23 18:53 INR 1.1 (0.9-1.1) 08/23/23 18:53 APTT 24 Seconds (21-31) 08/23/23 18:53 PTT Ratio 0.9 08/23/23 18:53 VBG pH 7.38 (7.36-7.41) 08/23/23 18:53 VBG pCO2 37 mmHg (38-50) L 08/23/23 18:53 VBG pO2 130 mmHg 08/23/23 18:53 VBG HCO3 22 mmol/L 08/23/23 18:53 VBG O2 Saturation 98.4 % 08/23/23 18:53 VBG Base Excess -2.8 mEq/L 08/23/23 18:53 Sodium 137 mmol/L (136-145) 08/23/23 18:53 Potassium 3.5 mmol/L (3.5-5.1) 08/23/23 18:53 Chloride 102 mmol/L (98-107) 08/23/23 18:53 Carbon Dioxide 22 mmol/L (21-32) 08/23/23 18:53 Anion Gap 13 (3-11) H 08/23/23 18:53 BUN 104 mg/dl (6-23) H 08/23/23 18:53 Creatinine 5.96 mg/dl (0.6-1.4) H* 08/23/23 18:53 Est Cr Clr Drug Dosing 15.6 ml/min 08/23/23 18:53 Est GFR ( Amer) 11.0 ml/min 08/23/23 18:53 Est GFR (Non-Af Amer) 9.5 ml/min 08/23/23 18:53 BUN/Creatinine Ratio 17.4 (10-20) 08/23/23 18:53 Glucose 44 mg/dl (70-99(Fasting)) L* 08/23/23 18:53 POC Glucose 91 mg/dl (70-99) 08/23/23 23:53 Lactate 0.9 mmol/L (0.4-2.0) 08/23/23 19:26 Calcium 9.3 mg/dl (8.6-10.3) 08/23/23 18:53 Magnesium 2.3 mg/dl (1.7-2.4) 08/23/23 18:53 Total Bilirubin 0.4 mg/dl (0.2-1.0) 08/23/23 18:53 AST 18 U/L (13-39) 08/23/23 18:53 ALT 17 U/L (7-52) 08/23/23 18:53 Alkaline Phosphatase 83 U/L (34-104) 08/23/23 18:53 Troponin I High Sens 9.3 pg/ml (0-20) 08/23/23 18:53 Total Protein 7.9 gm/dl (6.0-8.3) 08/23/23 18:53 Albumin 4.2 gm/dl (3.4-5.0) 08/23/23 18:53 Globulin 3.7 gm/dl (2.5-4.0) 08/23/23 18:53 Albumin/Globulin Ratio 1.1 (0.9-2) 08/23/23 18:53 Procalcitonin 0.13 ng/ml (0-0.5) 08/23/23 18:53 TSH 2.052 uIu/ml (0.300-4.500) 08/23/23 18:53 Urine Color Yellow 08/23/23 23:50 Urine Appearance Clear (Clear) 08/23/23 23:50 Urine pH 5.5 (4.5-7.5) 08/23/23 23:50 Ur Specific [place] 1.014 (1.000-1.030) 08/23/23 23:50 Urine Protein 3+ (Negative) H 08/23/23 23:50 Urine Glucose (UA) Negative (Negative) 08/23/23 23:50 Urine Ketones Negative (Negative) 08/23/23 23:50 Urine Blood Negative (Negative) 08/23/23 23:50 Urine Nitrite Negative (Negative) 08/23/23 23:50 Urine Bilirubin Negative (Negative) 08/23/23 23:50 Urine Urobilinogen Negative (Negative) 08/23/23 23:50 Ur Leukocyte Esterase Negative (Negative) 08/23/23 23:50 Urine WBC (Auto) 0-5 /hpf (0-5) 08/23/23 23:50 Urine RBC (Auto) 0-2 /hpf (0-2) 08/23/23 23:50 U Hyaline Cast (Auto) 0-2 /lpf (0-2) 08/23/23 23:50 U Epithel Cells (Auto) 0-2 /hpf (0-2) 08/23/23 23:50 Urine Bacteria (Auto) None Seen (None Seen) 08/23/23 23:50 Ethyl Alcohol mg/dL < 10.0 mg/dl (<10.0) 08/23/23 18:53 Impressions Chest X-Ray 08/23/23 18:51 XR chest 1V not portable HISTORY: 58 years-old Male Weakness; confusion COMPARISON: 08/10/2023 TECHNIQUE: AP view of the chest FINDINGS: Cardiomediastinal and hilar silhouettes are unchanged. Atherosclerosis of the aorta. No pneumothorax, pleural effusion, airspace consolidation or pulmonary edema. Spondylitic spurring of the spine. IMPRESSION: No acute process. ACT 112: Negative or not required by law. The above report was generated using voice recognition software. It may contain grammatical, syntax or spelling errors. Electronically signed by: Suhas Ramos M.D. 08/23/2023 7:02 PM Diagnostic Findings EKG as per my interpretation : Rate 50, sinus bradycardia, LAD, LAFB, no ischemia
[2023-08-24] MEDS ORDERED: oxyCODONE HCL IR 5 MG TAB (IMMEDIATE RELEASE) PO PRN (00:43)
[2023-08-24] MEDS ORDERED: ACETAMINOPHEN 500 MG TAB PO PRN (00:43)
[2023-08-24] MEDS ORDERED: PROMETHAZINE HCL 6.25 MG in SODIUM CHLORIDE 0.9% 50 ML IV PRN (00:43)
--- NOTE | 2023-08-24 01:00 | CT Scan Report ---
Exam(s): CT HEAD Without Contrast EXAM: CT Head Without Intravenous Contrast CLINICAL HISTORY: confusion. TECHNIQUE: Axial computed tomography images of the head/brain without intravenous contrast. CTDI is 35.22 mGy and DLP is 625.8 mGy-cm. Automated exposure control was utilized for the study. A dose lowering technique was utilized adhering to the principles of ALARA. COMPARISON: CT head without contrast 06/06/22 FINDINGS: Brain: The left mastoid air cells are well-aerated. No intracranial hemorrhage. No significant mass effect. No evidence for cortical infarct. Similar mild prominence of the cerebral sulci and fissures. Ventricles: No midline shift or ventriculomegaly. Bones/joints: Unremarkable. No acute fracture. Soft tissues: Unremarkable. Sinuses: Unremarkable as visualized. No acute sinusitis. Mastoid air cells: Right mastoid effusions appear slightly more extensive. IMPRESSION: 1. No acute intracranial process or significant alteration from the prior examination. 2. Right mastoid effusions appear slightly more extensive; the clinical significance of this finding is indeterminant. Mastoiditis is a clinical diagnosis. No significant overlying soft tissue abnormality. Electronically signed by: Ronak Thakkar MD 08/24/23 00:59 AM
[2023-08-24] MEDS ORDERED: GLUCOSE 10 TAB/TUBE PO PRN (04:03)
[2023-08-24] MEDS ORDERED: GLUCOSE 40% GEL 15 GM TUBE PO PRN (04:03)
[2023-08-24] MEDS ORDERED: GLUCAGON FOR INJ 1 MG VIAL SQ PRN (04:03)
[2023-08-24] MEDS ORDERED: DEXTROSE 50% 50 ML SYRINGE IV PRN (04:03)
[2023-08-24] MEDS ORDERED: CARBOHYDRATES FOR HYPOGLYCEMIA PO PRN (04:03)
[2023-08-24] MEDS: LACTATED RINGER'S 1,000 ML IV ONE (04:25)
[2023-08-24 04:29] LABS: Basophils # (auto) 0.05 K/uL (0.00-0.20); Basophils % (auto) 0.6 %; Eosinophils # (auto) 0.14 K/uL (0.00-0.50); Eosinophils % (auto) 1.6 %; Hemoglobin 8.7 g/dl (14.0-18.0); Immature Granulocytes # (auto) 0.04 K/uL (0.01-0.20); Immature Granulocytes % (auto) 0.4 %; Lymphocytes # (auto) 2.46 K/uL (1.20-3.40); Lymphocytes % (auto) 27.5 %; Mean Corpuscular Hemoglobin 28.5 pg (25.0-34.0); Mean Corpuscular Hgb Conc 33.5 g/dL (32.0-36.0); Mean Corpuscular Volume 85.2 fL (80.0-100.0); Mean Platelet Volume 10.2 fL (9.4-12.4); Monocytes # (auto) 0.79 K/uL (0.11-0.59); Monocytes % (auto) 8.8 %; Neutrophils # (auto) 5.47 K/uL (1.40-6.50); Neutrophils % (auto) 61.1 %; Platelet Count 222 K/uL (130-400); RDW Coefficient of Variation 13.6 % (11.5-14.5); RDW Standard Deviation 42.5 fL (36.4-46.3); Red Blood Count 3.05 M/uL (4.70-6.10); White Blood Count 8.95 K/ul (4.8-10.8)
[2023-08-24 04:51] LABS: BUN Creatinine Ratio 17.7 (10-20); Creatinine Clr Calc Pharmacy 15.6 ml/min; Est GFR (Non-African American) 9.5 ml/min; Potassium 3.7 mmol/L (3.5-5.1)
[2023-08-24] MEDS: INSULIN ASPART PER UNIT CHARGE SC SCH (05:18)
[2023-08-24] MEDS ORDERED: HEPARIN SOD 5,000 UNIT/0.5 ML VIAL SQ SCH (06:00)
[2023-08-24] MEDS: HEPARIN SOD 5,000 UNIT/0.5 ML VIAL SQ SCH (06:09)
[2023-08-24] MEDS: carvediloL 25 MG TAB PO SCH (08:56)
[2023-08-24] MEDS: ATORVASTATIN 40 MG TAB PO SCH (08:56)
[2023-08-24] MEDS: DULoxetine HCL 30 MG CAP PO SCH (08:56)
[2023-08-24] MEDS: ASPIRIN 81 MG ECTAB PO SCH (08:56)
[2023-08-24] MEDS: SODIUM BICARBONATE 650 MG TAB PO SCH (08:57)
[2023-08-24] MEDS: FOLIC ACID 1 MG TAB PO SCH (08:57)
[2023-08-24] MEDS: THIAMINE HCL 100 MG TAB PO SCH (08:57)
[2023-08-24] MEDS: LORATADINE 10 MG TAB PO SCH (08:57)
[2023-08-24] MEDS: SODIUM ZIRCONIUM CYCLOSILICATE 10 GM PACKET PO SCH (08:57)
[2023-08-24] MEDS: hydrALAZINE HCL 25 MG TAB PO SCH (08:57)
[2023-08-24] MEDS: PANTOprazole 40 MG TAB PO SCH (08:57)
[2023-08-24] MEDS: CEROVITE ADV FORMULA TAB PO SCH (08:57)
[2023-08-24] MEDS: LANTUS PER UNIT CHARGE SQ SCH (09:09)
--- NOTE | 2023-08-24 10:39 | Nephrology Consultation ---
Date of Consultation August 24, 2023 Assessment & Plan (1) ONDINA (acute kidney injury): Some rise in creat from recent level. Could have some volume depletion. will hold torsemide for today and give iv fluid at 75/hr for one day. This is mainly CKD progressing to ESRD so no need to give lot of Iv fluid. No dialysis today but cannot rule out. will assess daily. K and other lytes are normal. Continue Sodium Bicarb tab and lokelma. (2) CKD (chronic kidney disease) stage 5, GFR less than 15 ml/min: S/p AVF and is getting ready for Dialysis in near future. CKD 5 from DM (3) Hypoglycemia: patients with CKD 5 and end stage diabetics are very prone to hypoglycemia. The sad reality is having good DM control at this late stage unfortunately makes really no difference. He already has all the complications. very liberal control of DM as risk of Hypoglycemic coma is very high. History of Present Illness Attending Physician: Germain Munoz MD History of Present Illness 58/M with CKD 5 sec to DM/HTN. also has chronic diastolic heart failure secondary to ischemic cardiomyopathy (EF 55-59 %, TTE 2021), CAD status post stent, hypertension, hyperlipidemia, COPD as per records, CATALINO/CPAP non- compliance, anxiety/mood disorder, chronic anemia (baseline hemoglobin 9-10), history of alcohol withdrawal seizures, medication noncompliance, substance abuse as per records, past alcohol use, ongoing tobacco abuse Multiple admissions in the last 2 months. Recent Admission 2 weeks ago for hyperkalemia in the setting of CKD/ESRD. Patient discharged on torsemide and Lokelma Rx. he had AVF placed and is maturing. very close to dialysis. Patient noted to be disoriented at home when per family went to pick him up for dinner. EMS called to patient's home. Blood sugar noted to be 44, temperature noted to be 33 degrees Celsius. D10 water administered by EMS. He took Premeal subcutaneous insulin supposedly to be taken right before dinner while waiting for family to pick him up to go to a restaurant. Denies headache, chest pain, SOB, abdominal pain. IV ceftriaxone administered at the ER. labs somewhat worse creat of 5.9 and BUN around 100. getting IV fluid and torsemide on hold. But labs this AM same as yesterday. Review of Systems Review of Systems: All systems reviewed & are unremarkable except as noted in HPI & below Physical Exam Constitutional: well developed, well nourished, + frail appearing and coope rative; no acute distress Eyes: EOM intact bilaterally ENMT: Ears: no external ear abnormality Nose: no external nose abnormality Mouth: + dry oral mucous membranes Neck: Supple. Respiratory: normal respiratory effort Auscultation: + diminished lung sounds Cardiovascular: Rate/Rhythm: regular rate and regular rhythm Extremities: + AV fistula (+ t/b L AC); no edema Gastrointestinal (Abdomen): Inspection/Auscultation: normal bowel sounds Percussion/Palpation: abdomen soft; abdomen nontender Musculoskeletal: Extremities: strength 5/5 throughout Skin: no rashes, warm and dry Neurologic: Awake and alert. Psychiatric: Orientation: alert, oriented to person, oriented to place and cooperative Allergies Allergy/AdvReac Type Severity Reaction Status Date / Time pollen extracts Allergy Intermediate SNEEZING, Verified 08/23/23 21:28 CONGESTION Home Medications Medication Instructions Recorded Confirmed Type atorvastatin 80 mg tablet 80 mg PO QAM 10/25/21 08/23/23 History aspirin 81 mg tablet,delayed 81 mg PO BID #60 tabs 11/15/22 08/23/23 Rx release duloxetine 30 mg capsule,delayed 30 mg PO QAM 03/27/23 08/23/23 History release (Cymbalta) insulin lispro 100 unit/mL 5 unit (0.05 mL) subcut TID #15 mL 03/27/23 08/23/23 Rx subcutaneous pen (Humalog KwikPen (U-100) Insulin) [id number] 120 mcg-lutein 1 tab PO QAM 03/27/23 08/23/23 History 150 mcg-herb 50 mg chewable tablet (Alive Men's 50 Plus Multivitamin) pantoprazole 40 mg tablet,delayed 40 mg PO QAM 03/27/23 08/23/23 History release cholecalciferol (vitamin D3) 50 100 mcg PO DAILY 06/27/23 08/23/23 History mcg (2,000 unit) capsule desloratadine 5 mg tablet 5 mg PO QAM 07/12/23 08/23/23 History (Clarinex) folic acid 1 mg tablet 1 mg PO QAM 07/12/23 08/23/23 History hydralazine 25 mg tablet 25 mg PO BID #60 tabs 07/18/23 08/23/23 Rx magnesium oxide 400 mg (241.3 mg 400 mg PO QAM #10 tabs 07/18/23 08/23/23 Rx magnesium) tablet thiamine HCl (vitamin B1) 100 mg 100 mg PO QAM #30 tabs 07/18/23 08/23/23 Rx tablet insulin glargine 100 unit/mL (3 16 unit subcut QAM 07/20/23 08/23/23 History mL) subcutaneous pen (Lantus Solostar U-100 Insulin) oxycodone-acetaminophen 5 mg-325 1 tab PO Q6H PRN pain #14 tabs 07/28/23 08/23/23 Rx mg tablet (Percocet) carvedilol 25 mg tablet 25 mg PO BID 08/10/23 08/23/23 History sodium bicarbonate 650 mg tablet 650 mg PO BID 08/10/23 08/23/23 History torsemide 20 mg tablet 60 mg PO QAM 08/10/23 08/23/23 History sodium zirconium cyclosilicate 10 10 g PO DAILY #30 ea 08/11/23 08/23/23 Rx gram oral powder packet (Lokelma) acetaminophen 325 mg tablet 650 mg PO DIRECTED PRN 08/23/23 08/23/23 History (Tylenol) PAIN/FEVER loperamide 2 mg capsule 2 mg PO DIRECTED PRN Diarrhea 08/23/23 08/23/23 History nifedipine 90 mg tablet,extended 90 mg PO QPM 08/23/23 08/23/23 History release 24 hr Patient History Medical History CKD (chronic kidney disease) stage 5, GFR less than 15 ml/min Poor historian all hx provided by sister, Kavya Banks Hx of encephalopathy DJD (degenerative joint disease) Back Chronic back pain History of COVID-19 x2, not hospitalized Hx of congestive heart failure Cirrhosis of liver History of asthma Hx of non-ST elevation myocardial infarction (NSTEMI) x 2, cath 2019 x 1 stent, follows with S cardio (unsure of name, last visit > 9 months) TONEY (dyspnea on exertion) Ischemic cardiomyopathy Surgical History Hx of wisdom tooth extraction History of total left hip replacement (~10/2022) History of lymph node biopsy Family History Other Diabetes Heart disease Hypertension Social History Smoking Status: Current every day smoker Tobacco Type: Cigarettes Cigarettes Per Day: 3-4 cigarettes/day; Second Hand Exposure: No; Do You Dip or Chew Tobacco: No; Hx Alcohol Use: No Hx Substance Use: No Preferred Language: Mohawk Communication Ability: Effective Brim Curler Required: No Beliefs That Will Affect Care: None marital status: Single Current Living Situation: Alone Current Living Situation Comment: Living in car current occupational status: unemployed How many Children do You have: 2 Feels Safe at Home: Yes Safety Concerns: Feels Safe At This Time Assistive Devices: None Results & Data Vital Signs (Past 12 Hours) Vital Signs Temp Pulse Pulse Resp BP BP Pulse Ox 08/24/23 10:09 76 22 134/77 97 08/24/23 09:00 74 20 168/87 H 96 08/24/23 08:00 68 16 140/83 96 08/24/23 07:03 76 16 134/72 98 08/24/23 06:00 79 16 125/67 98 08/24/23 04:09 76 18 131/77 94 08/24/23 04:09 08/24/23 02:50 36.5 C 81 20 105/66 97 08/24/23 02:48 36.5 C 08/24/23 01:43 72 08/23/23 23:55 35.9 C L 08/23/23 23:47 35.8 C L 08/23/23 23:47 69 18 97 08/23/23 23:47 Pulse Ox O2 Del Method O2 Del Method 08/24/23 10:09 Room Air 08/24/23 09:00 Room Air 08/24/23 08:00 Room Air 08/24/23 07:03 Room Air 08/24/23 06:00 Room Air 08/24/23 04:09 Room Air 08/24/23 04:09 95 Room Air 08/24/23 02:50 Room Air 08/24/23 02:48 08/24/23 01:43 08/23/23 23:55 08/23/23 23:47 08/23/23 23:47 Room Air 08/23/23 23:47 Room Air Laboratory Results reviewed
[2023-08-24 13:42] LABS: Amphetamines+Metham, Urine Neg (Neg); Barbiturates, Urine Neg (Neg); Benzodiazepine, Urine Neg (Neg); Cocaine, Urine Neg (Neg); Fentanyl, Urine Neg (Neg); MDMA (Ecstacy), Urine Neg (Neg); Marijuana, Urine Neg (Neg); Methadone, Urine Neg (Neg); Opiate, Urine Neg (Neg); Phencyclidine, Urine Neg (Neg)
--- OUTSIDE RECORDS SUMMARY | 2023-08-24 19:40 | External Medical Summary | Summary of Care ---
Author Name Unknown Organization [facility] Address [address] [place] [address] Phone [phone] Care Team Providers Care Earth Science Teacher Name Role Phone Shashi Reed MD Primary Care Provider [phone] Reason for Referral * Evaluate & Treat - Unlimited Visits (Within 10 days (routine)) - Pending Review Specialty Diagnoses / Procedures Referred By Contac t Referred To Contact Pharmacist / Pharmacy Diagnoses Nephrotic range proteinuria CKD (chronic kidney disease) stage 5, GFR less than 15 ml/min (HCC) HTN, goal below 130/80 Uncontrolled hypertension Amber Cornell MD [address] [place] [address] Referral ID Status Reason Start Date Expiration Date Visits Requested Visits Authorized [id number] Pending Review Specialty Services Required 07/31/2023 99 99 Question Answer Referral Priority Within 10 days (routine) Where should this appointment be scheduled? [facility] Referring Provider Role: Specialist Specialty: Nephro Reason for Referral: HTN Goal BP: < 130/80 - pls call pt sister to arrange/follow Comments Pharmacist Medication Therapy Management: Minimum frequency patient should be seen in person for medication management: as appropriate per clinical condition and patient status By my signature, I understand that my patient Dewayne Dillard will have his medication therapy managed by the [facility] Medication Therapy [facility] ([facility]) per established policies, procedures, and protocols. I also certify that this referral may serve as an initiation of service for the management of drug therapy in the above noted patient. [facility] providers will be responsible for scheduling patient visits, obtaining appropriate laboratory studies, and adjusting medication management therapy per patient's need, in addition to those roles spelled out in the clinic policy, procedures, and drug management protocols. I understand that the service provided by the [facility] Clinic is voluntary and have informed patient that they can refuse the service at their discretion. I am aware that the [facility] Clinic will provide me with a copy of the patient encounter via my [employer]. I authorize the [facility] to carry out these activities on my behalf. I consider this program to be a necessary part of the patient's medical care. Amber Cornell MD Reason for Visit * Reason Comments Hospital Follow-Up Post [facility] discharge With AVF placement Encounter Details Date Type Department Care Team (Late st Contact Info) Description 07/31/2023 8:20 AM EDT Office Visit Nephrology, [facility] [address] [facility] [place] [address] Amber Cornell MD [address] [facility] [place] [address] CKD (chronic kidney disease) stage 5, GFR less than 15 ml/min ([facility])*; Nephrotic range proteinuria; HTN, goal below 130/80; Vitamin D deficiency; Uncontrolled hypertension; ONDINA (acute kidney injury) ([facility]); Type 2 DM with CKD stage 4 and hypertension ([facility]); HTN, goal below 140/80 Allergies Active Allergy Reactions Criticality Noted Date Comments Pollen 05/17/2021 documented as of this encounter (statuses as of 08/21/2023) Medications Medication Sig Dispensed Refills Start Date [...] 325 MG Oral Tablet (Tylenol) 2 Tablets. 05/31/19 23 Active Aspirin 81 MG Oral Tablet Delayed ReleaseIndications :S/p left hip fracture,S/P total left hip arthroplasty,Hospi noé discharge follow-up,Ischemic cardiomyopathy,Typ e 2 diabetes mellitus with stage 3a chronic kidney disease, with long-term current use of insulin ([facility]) Take 1 Tablet by mouth in the morning and 1 Tablet in the evening. Sp left THR for fracture 11/12/22. 11/30/19 23 Active Multi-Vitamins Oral Tablet Take 1 Tablet by mouth in the morning. Active Lantus SoloStar 100 UNIT/ML Subcutaneous Solution Pen-injectorIndica tions:Hypoglycemia ,Hospital discharge follow-up,Type 2 diabetes mellitus with stage 3b chronic kidney disease, without long-term current use of insulin ([facility]),Labile blood glucose INJECT 16 UNITS SUBCUTANEOUSLY ONCE DAILY 6 mL 03/24/19 24 Active Vitamin D3/PCB 4000 UNITS Oral Capsule (STUDY MED) Take 1 Capsule by mouth in the morning. Active DULoxetine HCl 30 MG Oral Capsule Delayed Release Particles (Cymbalta)Indicati ons:Type 2 diabetes mellitus with stage 3a chronic kidney disease, with long-term current use of insulin ([facility]),History of substance abuse ([facility]),Alcohol use disorder, severe, dependence (HCC),Polyneuropat hy, unspecified Take 1 capsule by mouth in the morning 90 Capsule 3 06/09/19 24 Active Pantoprazole Sodium 40 MG Oral Tablet Delayed Release (Protonix)Indicati ons:Gastroesophage al reflux disease with esophagitis without hemorrhage TAKE 1 TABLET BY MOUTH IN THE MORNING 90 Tablet 1 07/06/19 24 Active Atorvastatin Calcium 80 MG Oral Tablet (Lipitor)Indicarachelleo ns:Type 2 diabetes mellitus with stage 3a chronic kidney disease, with long-term current use of insulin ([facility]),Ischemic cardiomyopathy TAKE 1 TABLET BY MOUTH IN THE MORNING 90 Tablet 3 07/06/19 24 Active Desloratadine 5 MG Oral Tablet (Clarinex)Indicati ons:Sneezing,Seaso nal allergic rhinitis due to pollen Take 1 Tablet by mouth in the morning. for allergies. 90 Tablet 1 07/12/19 24 Active Thiamine HCl 100 MG Oral Tablet (vitamin B-1) Take 1 Tablet by mouth in the morning. Active Dexcom G7 Sensor 06/25/19 24 Active BD Pen Needle Arpita 2nd Gen 32G X 4 MM USE TO INJECT INSULIN 4 TIMES A DAY 04/18/19 24 Active Insulin Aspart 100 UNIT/ML Injection Solution (NovoLOG)Indicatio ns:Type 2 DM with CKD stage 4 and hypertension ([facility]),Hospital discharge follow-up Using 5 units 10 -15 min before each meal per endo at [facility] 07/21/19 24 Active Magnesium Oxide -Mg Supplement 400 MG Oral Capsule Take 400 mg by mouth in the morning. 30 Capsule 5 07/27/19 24 Active Loperamide HCl 2 MG Oral Tablet (Immodium (A-D)) 1 Tablet as needed. 05/31/19 23 Active oxyCODONE-Acetamin ophen 5-325 MG Oral Tablet (Percocet) Take 1 Tablet by mouth every 6 hours as needed. 07/28/19 24 Active Sodium Bicarbonate 650 MG Oral Tablet Take 2 Tablets by mouth in the morning and 2 Tablets before bedtime. 360 Tablet 3 07/31/19 24 Active Torsemide 20 MG Oral Tablet (Demadex) Take 3 Tablets by mouth in the morning. 270 Tablet 3 07/31/19 24 Active Carvedilol 12.5 MG Oral Tablet (Coreg)Indications :ONDINA (acute kidney injury) ([facility]),Type 2 DM with CKD stage 4 and hypertension ([facility]),HTN, goal below 140/80 Take 2 Tablets by mouth in the morning and 2 Tablets before bedtime. Take with food. 180 Tablet 3 07/31/19 24 Active Sodium Bicarbonate 650 MG Oral Tablet Take 1 Tablet by mouth in the morning and 1 Tablet before bedtime. 120 Tablet 11 04/13/19 24 024 Discontinued hydrALAZINE HCl 25 MG Oral Tablet (Apresoline) Take 1 Tablet by mouth in the morning and 1 Tablet before bedtime. 024 Discontinued(Re fill) NIFEdipine ER Osmotic Release 90 MG Oral Tablet Extended Release 24 Hour (Procardia XL) Take 1 Tablet by mouth in the morning. 07/19/19 24 024 Discontinued(Re fill) Carvedilol 12.5 MG Oral Tablet (Coreg)Indications :ONDINA (acute kidney injury) (HCC),Type 2 DM with CKD stage 4 and hypertension (HCC),HTN, goal below 140/80 Take 1 Tablet by mouth in the morning and 1 Tablet before bedtime. At [facility] 07/18/23. 07/21/19 024 Discontinued documented as of this encounter (statuses as of 08/21/2023) Active Problems Problem Noted Date Diagnosed Date [...] edema 10/08/2021 Coronary artery disease invo lving andreafski coronary artery of andreafski heart without angina pectoris 03/26/2020 Anemia 02/14/2020 [...] as of this encounter (statuses as of 08/21/2023) Resolved Problems Problem Noted Date Diagnosed Date [...] as of this encounter (statuses as of 08/21/2023) Immunizations Name Administration Dates Next Due COVID-19 mRNA, LNP-s, No Pre serve, 2-Dose Series (Pfizer) 06/24/2020,06/01/2020 Pneumococcal Conjugate Vacci ne, 20-valent ([id number]) 02/25/2022 Pneumococcal Polysaccharide PPV23 (Pneumovax) 06/21/2021,04/26/2019 Seasonal [...] Sign Reading Time Taken Comments Blood Pressure 156/84 07/31/2023 8:42 AM EDT Pulse 62 07/31/2023 8:42 AM EDT Temperature 37.1 C (98.7 F) 07/31/2023 8:39 AM ED T Respiratory Rate 20 07/31/2023 8:39 AM EDT Oxygen Saturation 97% 07/31/2023 8:39 AM EDT Inhaled Oxygen Concentration - - Weight 96 kg (211 lb 9.6 oz) 07/31/2023 8:39 AM EDT Height - - Body Mass Index 29.96 07/12/2023 10:26 AM EDT documented in this encounter Patient Instructions * Patient Instructions* Amber Cornell MD - 07/31/2023 9:32 AM EDT -increase sodium bicarbonate to 1300 mg twice daily -increase nifedipine to 60 mg daily in EVENING -start torsemide 60 mg daily in AM -no change to other medicines -after about 10 days on above, recheck labs -avoid medicines like aleve, advil, ibuprofen, aspirin more than 81 mg daily and other NSAIDS whichare not good for kidney patients. Take only tylenol (acetaminophen) up to 2000 mg daily as needed for pain or as directed by your primary care provider. -will refer you to MTM, a pharmacist who works w/ me to help control your BP -keep logging BP using good technique -keep going to AA meetings to help take care of yourself -bring home BP cuff in for RENAL nurse visit to check accuracy when you do labs; my nurses will contact your sister documented in this encounter Progress Notes * Amber Cornell MD - 07/31/2023 8:17 AM EDT NEPHROLOGY CLINIC NOTE Nephrology, [facility] [address] [place] [address] 07/31/2023, 8:17 AM Patient Name: Dewayne Dillard BACKGROUND: 58 year old male prsents for hospital d/c visit today after [facility] admission 07/11-07/17 for ONDINA on CKD/ESRD not on dialysis; also s/p AVF creation PMH includes DM since age 24 on insulin, HTN also since his early 30s and w/ hx of urgency, Coronary artery disease with history of VT and stent but near normal ejection fraction, alcoholism w/ hx ofwithdrawal seizures and serial rehab stays, HL, active tobacco abuse, CATALINO not on cpap, anxiety, class 2 obesity. Also has alcoholic hepatitis with severe fatty liver but not quite liver cirrhosis Chronically challenging psychosocial situations [place] [id number]. Has lived in a homeless longterm but because of too much noise disturbances he basically slept in his car; [facility] He eats food provided by the [employer]. Fell and broke hip 10/2022 while drunk and admitted 11/11-11/15 then d/c to inpt rehab (? EtOH or physical). Hospitalized in 03/03-03/11/23 in [place] [facility]/ DKA, ear infection, frostbite. A1c was 18.3%. Found unconscious on sidewalk after being sent outside from homeless longterm. No records available. Saw neuro spring 2023 and noted to have disabling cognitive impairment most likely related to heavyalcohol use but can not exclude a role for DM or smoking. Sister notes pt often forgets his meds; plan when he's in own apt if they can get one for him would be in home care and sister stopping in [facility] ensure meds as rx'd. Drinking bottled water, milk, diet soda, diet iced tea. No EtOH since > did 2 mos rehab. Sister gives much of hx TODAY 07/31/2023: He presented w/ creat 4.7, improved to 4.2 by hospital d/c. Hyprekalemia and HTN and ONDINA were managed medically. at hospital d/c, nifedipine upped to 90 mg daily;coreg upped as well and hydrlazine added. ardiance stopped. BP at home in evenings pre PM meds in 200s. BP elevated today and pt has had his meds Got AVF DR Elias early July. Remains abstinent from EtOH. Going to meetings for abstinence about 3 weekly. Has his own apartmentnow. Hx of blisters/severe lesions R hand and feet from cold > not frostbite on hand but hypothermia;feet were felton bitten Pt has pill minder and sister sets them up for him but he sometimes forgets. More freqeutn than bidpills will be hard. Sister and pt daughter come by most days at least once and check BP Acc by sister Kavya today. REVIEW OF SYSTEMS: No F/C, unintended wt changes though he is gaining back some of the wt he's lost; energy level low today and appetite acceptable No palpitations, angina, orthopnea, LE edema No cough, wheeze, or dyspnea No N/V/D/C/abd pain No dysuria, hematuria, nocturia >2X; no new/worrisome voiding sx; ongoing foamy urine No rash or generalized itch Can't really tell me if he's having focal joint/muscle aches > tells me about his broken hip; not sure if it hurts really No inappropriate bleeding or bruising No tremor, seizures, focal or global weakness ; ongoing severe neuropathy BL feet Occasional presyncopal or orthostatic symptoms; no falls Current Outpatient Medications Medication Sig Dispense Refill OneTouch Ultra Blue In Vitro Strip (Glucose Blood) Use as directed 4 times a day as needed for Other (test blood sugars up to 4 times daily). Use up to four times a day as directed 100 Strip 11 Folic Acid 1 MG Oral Tablet Take 1 Tablet (1 mg) by mouth in the morning. 90 Tablet 3 OneTouch Delica Lancets 33G Use to test [...] 1 Tablet by mouth in the morning. Lantus SoloStar 100 UNIT/ML Subcutaneous Solution Pen-injector INJECT 16 UNITS SUBCUTANEOUSLY ONCE DAILY 6 mL 0 Vitamin D3/PCB 4000 UNITS Oral Capsule (STUDY [...] MOUTH IN THE MORNING 90 Tablet 3 Desloratadine 5 MG Oral Tablet (Clarinex) Take 1 Tablet by mouth in the morning. for allergies. 90 Tablet 1 hydrALAZINE HCl 25 MG Oral Tablet (Apresoline) Take 1 Tablet by mouth in the morning and 1 Tablet before bedtime. Thiamine HCl 100 MG Oral Tablet (vitamin B-1) Take 1 Tablet by mouth in the morning. NIFEdipine ER Osmotic Release 90 MG Oral Tablet Extended Release 24 Hour (Procardia XL) Take 1 Tablet by mouth in the morning. Dexcom G7 Sensor BD Pen Needle Arpita 2nd Gen 32G X 4 MM USE TO INJECT INSULIN 4 TIMES A DAY Insulin Aspart 100 UNIT/ML Injection Solution (NovoLOG) Using 5 units 10 -15 min before each meal per endo at [facility] Magnesium Oxide -Mg Supplement 400 MG Oral Capsule Take 400 mg by mouth in the morning. 30 Capsule 5 Loperamide HCl 2 MG Oral Tablet (Immodium (A-D)) 1 Tablet as needed. oxyCODONE-Acetaminophen 5-325 MG Oral Tablet (Percocet) Take 1 Tablet by mouth every 6 hours as needed. Sodium Bicarbonate 650 MG Oral Tablet Take 2 Tablets by mouth in the morning and 2 Tablets before bedtime. 360 Tablet 3 Torsemide 20 MG Oral Tablet (Demadex) Take 3 Tablets by mouth in the morning. 270 Tablet 3 Carvedilol 12.5 MG Oral Tablet (Coreg) Take 2 Tablets by mouth in the morning and 2 Tablets before bedtime. Take with food. 180 Tablet 3 No current facility-administered medications for this visit. Review of patient's allergies indicates: Allergen Reactions Environmental [Pollen] PHYSICAL EXAMINATION: BP Readings from Last 6 Encounters: 07/31/23 156/84 07/21/23 128/82 07/12/23 120/60 04/13/23 122/73 04/07/23 102/70 03/22/23 118/68 Wt Readings from Last 6 Encounters: 07/31/23 96 kg (211 lb 9.6 oz) 07/21/23 94 kg (207 lb 3.2 oz) 07/12/23 93.6 kg (206 lb 4.8 oz) 04/13/23 89.8 kg (198 lb) 04/07/23 90.2 kg (198 lb 12.8 oz) 03/22/23 88.9 kg (195 lb 14.4 oz) Pulse Readings from Last 6 Encounters: 07/31/23 62 07/21/23 61 07/12/23 83 04/13/23 79 04/07/23 94 03/22/23 84 NAD, oriented x 3, ambulatory w/o asst Normocephalic, atraumatic, eomi nonicteric sclerae MMM Supple neck RRR w/o m/g/r; no edema, AVF R r-c + t/b CTAB w/ reduced air mvt NT abd, +BS, soft + cyanosis R>L and slight edema R > L; no clubbing; good capillary refill No rash No tremor, focal or global weakness; fluent but limited speech, relies on sister for history/poor historian LABS: Recent Labs Units 07/21/23 1034 07/11/23 1529 07/05/23 1340 06/27/23 0952 SODIUM - [facility] mmol/L 137 134* 133* 136 POTASSIUM - [facility] mmol/L 5.1 5.1 4.8 4.8 CHLORIDE - [facility] mmol/L 104 102 100 103 CO2 - [facility] mmol/L 19* 17* 18* 20* BUN - [facility] mg/dL 61* 87* 71* 60* CREATININE - [facility] mg/dL 4.4* 4.7* 4.6* 5.4* ESTIMATED GLOMERULAR FILTRATION RATE - [facility] mL/min 15* 13* 14* 11* Recent Labs Units 07/21/23 1034 04/07/23 1555 03/14/23 0000 11/29/22 1139 11/16/22 0540 08/22/22 1152 06/10/22 1522 04/29/22 1055 [facility]GB g/dL 10.0* 9.5* 7.8* 9.5* < > 11.0* < > 12.9* FERRITIN - [facility] ng/mL -- 283 -- -- -- 192 -- 719* TRANSFERRIN SATURATION PERCENT - [facility] % -- 36 -- -- -- 25 -- 54 < > = values in this interval not displayed. Recent Labs Units 07/21/23 1034 07/11/23 1529 07/05/23 1340 06/27/23 0952 04/07/23 1555 11/29/22 1139 02/25/22 1419 10/22/21 1042 CALCIUM - [facility] mg/dL 9.0 8.9 8.9 9.1 8.8 9.4 < > 8.9 PHOSPHORUS - [facility] mg/dL 5.2* -- -- 4.3 4.3 4.0 < > 4.3 25-HYDROXY VITAMIN D - [facility] ng/mL -- -- -- 25 13* 11* -- 18* PTH - [facility] pg/mL -- -- -- 168* 219* 49 -- 63 < > = values in this interval not displayed. Recent Labs Units 06/27/23 0952 04/07/23 1555 08/22/22 1152 02/25/22 1419 HEMOGLOBIN A1C - [facility] % 7.8* 10.7* 7.3* 8.3* Recent Labs Units 07/11/23 1529 12/03/21 1007 10/22/21 1050 ALBUMIN / CREATININE RATIO, URINE - [facility] mg/g Creat 4,204* -- -- PROTEIN/ CREATININE RATIO, URINE - [facility] mg/g -- 4,912* 3,504* Recent Labs Units 07/05/23 1349 04/13/23 1537 12/03/21 1007 10/22/21 1051 10/22/21 1050 CLARITY, URINE - [facility] Clear Clear Clear -- Slightly Cloudy* GLUCOSE, URINE - [facility] mg/dL 250* 500* 250* -- 150* BILIRUBIN, URINE - [facility] Negative Negative Negative -- Negative KETONE, URINE - [facility] mg/dL Negative Negative Negative -- Negative SPECIFIC GRAVITY, URINE - [facility] 1.025 1.015 1.010 -- 1.024 BLOOD, URINE - [facility] Trace* Trace* Trace* -- Small* PH, URINE - [facility] Units 5.5 5.0 6.0 -- 6.0 PROTEIN, URINE - [facility] mg/dL >=300* >=300* 100* -- >300* PROTEIN, RANDOM URINE - [facility] mg/dL -- -- 167 < > 939 UROBILINOGEN, URINE - [facility] mg/dL 0.2 0.2 Normal -- 2.0* NITRITE, URINE - [facility] Negative Negative Negative -- Negative ESTERASE, URINE - [facility] Negative Negative Negative -- Negative BACTERIA, URINE - [facility] /HPF 26-50* 26-50* 0-25 -- 51-100* WBC, URINE - [facility] /HPF 3-5* 3-5* 0-2 -- 0-2 RBC, URINE - [facility] /HPF 0-2 0-2 0-2 -- 0-2 < > = values in this interval not displayed. ASSESSMENT AND PLAN: CKD (chronic kidney disease) stage 5, GFR less than 15 ml/min ([facility]) (Primary) - PHARMACIST MEDS THERAPY MGMT REFERRAL OP - BASIC METABOLIC PANEL; Future; Expected date: 08/07/2023 - MAGNESIUM; Future; Expected date: 08/07/2023 Nephrotic range proteinuria - PHARMACIST MEDS THERAPY MGMT REFERRAL OP HTN, goal below 130/80 - PHARMACIST MEDS THERAPY MGMT REFERRAL OP - BASIC METABOLIC PANEL; Future; Expected date: 08/07/2023 - MAGNESIUM; Future; Expected date: 08/07/2023 Vitamin D deficiency Uncontrolled hypertension - PHARMACIST MEDS THERAPY MGMT REFERRAL OP - BASIC METABOLIC PANEL; Future; Expected date: 08/07/2023 - MAGNESIUM; Future; Expected date: 08/07/2023 ONDINA (acute kidney injury) (HCC) - Carvedilol 12.5 MG Oral Tablet (Coreg); Take 2 Tablets by mouth in the morning and 2 Tablets before bedtime. Take with food. Type 2 DM with CKD stage 4 and hypertension (HCC) - Carvedilol 12.5 MG Oral Tablet (Coreg); Take 2 Tablets by mouth in the morning and 2 Tablets before bedtime. Take with food. HTN, goal below 140/80 - Carvedilol 12.5 MG Oral Tablet (Coreg); Take 2 Tablets by mouth in the morning and 2 Tablets before bedtime. Take with food. Other orders - Sodium Bicarbonate 650 MG Oral Tablet; Take 2 Tablets by mouth in the morning and 2 Tablets before bedtime. - Torsemide 20 MG Oral Tablet (Demadex); Take 3 Tablets by mouth in the morning. Follow Up: Return in about 2 months (around 09/30/2023) for clinic visit w/ [place], clinic visit w/ . | For: clinic visit w/ [place], clinic visit w/ | Check-out note: Waitlist Now stage 5 ckd -reviewed what avf is /how made/ why important/how works -encouraged him to stop smoking for txptl eval if desired -no indication for dialysis yet but he is getting closer >up sodium bicarb to manage acidosis MTM referral for BP mgt Med changes as below to improve BP control and manage acdisosi NOTES REVIEWED THIS VISIT from late June admission -d/c summary -last neph PN, neph c/s Patient Instructions -increase sodium bicarbonate to 1300 mg twice daily -increase nifedipine to 60 mg daily in EVENING -start torsemide 60 mg daily in AM -no change to other medicines -after about 10 days on above, recheck labs -avoid medicines like aleve, advil, ibuprofen, aspirin more than 81 mg daily and other NSAIDS whichare not good for kidney patients. Take only tylenol (acetaminophen) up to 2000 mg daily as needed for pain or as directed by your primary care provider. -will refer you to [facility], a pharmacist who works w/ me to help control your BP -keep logging BP using good technique -keep going to AA meetings to help take care of yourself -bring home BP cuff in for RENAL nurse visit to check accuracy when you do labs; my nurses will contact your sister I spent a total of 40-54 minutes (exact time 45 mins) on the date of service in preparation, delivery, and documentation of the care provided to Dewayne Dillard excluding any time spent in the performance of separately billed services. Amber Cornell MD Nephrology, [address] [address] CC: Ref: SHASHI REED[[id number]] [address] [place] [address] (office) [phone] (fax) PCP: SHASHI REED [address] [place] [address] [phone] This chart was completed in part utilizing [employer] Voice Recognition Software. Randomword insertions, pronoun errors, and incomplete sentences are an occasional consequence of this system due to software limitations, and ambient noise. Any questions or concerns about the content, text, or information contained within the body of this dictation should be directly addressed to the provider for clarification. documented in this encounter Nursing Notes * Ania Choudhary LPN - 07/31/2023 8:36 AM EDT Patient identified by verbal name and date of .Post Hospital discharge [facility] follow up Pt had AVF placement 07/28/[address] Naik Denies SOB or lower extremity edema Last labs 07/21/23 Renal panel PCP Pt takes BP at home Have been elevated Did not bring logs to apt documented in this encounter Plan of Treatment Upcoming Encounters Date Type Department Care Team (Late st Contact Info) Description 08/22/2023 11:00 AM EDT Office Visit General Internal Medicine [address] [place], [place] [address] Mirza Adair, [address] [address] 10/11/2023 1:00 PM EDT Office Visit General Internal Medicine [address] [place] [address] Shashi Reed MD [address] [facility] [place], [place] [address] 10/24/2023 1:40 PM EDT Office Visit General Internal Medicine [facility] [address] [facility] [place], [place] [address] Shashi Reed MD [address] [facility] [place] [address] 12/20/2023 8:30 AM EDT Therapy Neuropsychology [facility] [address] [facility] [place] [address] Randell Grimes, PhD [address] [facility] [place] [address] 02/19/2024 3:00 PM EST Office Visit Nephrology, [facility] [address] [facility] [address] [place] [address] Amber Cornell MD [address] [facility] [place], [place] [address] 05/23/2024 1:20 PM EST Office Visit Dermatology [facility] [address] [facility] [address] [place] [address] Alix Rajan PA-C [address] [facility] [place] [phone] 07/18/2024 3:00 PM EDT Office Visit Nephrology, [facility] [address] [place] [address] Amber Cornell MD [address] [facility] [address] [place], [place] [id number] Scheduled Procedures Name Priority Associated Diagnoses Date/Ti me COLONOSCOPY FLEXIBLE [facility] Recall History of colon polyps Scheduled Referrals Name Type Priority Associated Diagnoses Orde r Schedule PHARMACIST MEDS THERAPY MGMT REFERRAL OP Referral Within 10 days (routine) Nephrotic range proteinuria CKD (chronic kidney disease) stage 5, GFR less than 15 ml/min (HCC) HTN, goal below 130/80 Uncontrolled hypertension Ordered: 07/31/2023 Health Maintenance Due Date Last Done Comments [...] 06/27/2023, 03/20, 08/22/2022, Additional history exists GFR 02/17/2024 08/18/2023, 07/19, 07/21/2023, Additional history exists PTH 06/26/2024 06/27/2023, 03/20, [...] Not on filedocumented as of this encounter Results * MAGNESIUM (08/10/2023 9:04 AM EDT) Magnesium 2.1 1.5 - 2.6 mg/dL 08/10/2023 11:07 AM EDT [facility] 56- Blood Venous blood specimen / Unknown Venipuncture / Unknown 08/10/2023 9:04 AM EDT 08/10/2023 9:04 AM EDT Amber Cornell MD LAB BLOOD ORDERAB LES [facility]- [address] [place] [address] * (ABNORMAL) BASIC METABOLIC PANEL (08/10/2023 9:04 AM EDT) BUN 73(H) 6 - 20 mg/dL 08/10/2023 11:07 AM EDT [facility] 56- Creatinine 4.8(H) 0.6 - 1.2 mg/dL 08/10/2023 11:07 AM EDT [facility] 56- Estimated Glomerular Filtration Rate 13(L) >=60 mL/min 08/10/2023 11:07 AM T [facility] 56- Comment:eGFR is calculated b ased on the CKD-EPI 2020 equation Sodium 137 135 - 146 mmol/L 08/10/2023 11:07 AM EDT [facility] 56- Potassium 6.4(H) 3.5 - 5.1 mmol/L 08/10/2023 11:07 AM EDT [facility] Chloride 103 98 - 107 mmol/L 08/10/2023 11:07 AM EDT [facility] 56 CO2 22 22 - 32 mmol/L 08/10/2023 11:07 AM EDT [facility] 56 Anion Gap 12 7 - 15 mmol/L 08/10/2023 11:07 AM EDT [facility] Glucose 145(H) 70 - 120 mg/dL 08/10/2023 11:07 AM EDT [facility] Calcium 9.3 8.4 - 10.2 mg/dL 08/10/2023 11:07 AM EDT [facility] Blood Venous blood specimen / Unknown Venipuncture / Unknown 08/10/2023 9:04 AM EDT 08/10/2023 9:04 AM EDT Amber Cornell MD LAB BLOOD ORDERAB LES [facility] [address] [facility] [place] [id number] documented in this encounter Visit Diagnoses Diagnosis CKD (chronic kidney disease) stage 5, GFR less than 15 ml/min (HCC)- Primary Chronic kidney disease, Stage V Nephrotic range proteinuria Proteinuria HTN, goal below 130/80 Unspecified essential hypertension Vitamin D deficiency Unspecified vitamin D deficiency Uncontrolled hypertension Unspecified essential hypertension ONDINA (acute kidney injury) (HCC) Acute kidney failure, unspecified 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
--- OUTSIDE RECORDS SUMMARY | 2023-08-24 19:40 | External Medical Summary | Summary of Care ---
Author Name Unknown Organization [facility] Address [address] [place] [address] Phone [phone] Care Team Providers Care Sales Service Coordinator Name Role Phone Charity Reed MD Primary Care Provider [phone] Reason for Visit * Reason Onset Date Comments Hospital Follow-Up Hospital Follow-Up 08/22/2023 Encounter Details Date Type Department Care Team (Late st Contact Info) Description 08/22/2023 11:00 AM EDT Office Visit General Internal Medicine [facility] [address] [place] [address] Mirza Adair, [address] [address] Hyperkalemia*; Hospital discharge follow-up; Type 2 diabetes mellitus with stage 4 chronic kidney disease, with long-term current use of insulin (HCC); Dyslipidemia, goal LDL below 70; Pulmonary emphysema, unspecified emphysema type (HCC); Ischemic cardiomyopathy; Obstructive sleep apnea of adult; HTN, goal below 140/80; Coronary artery disease involving torres martinez coronary artery of torres martinez heart without angina pectoris; History of substance abuse (HCC); Polyneuropathy, unspecified; Anemia due to stage 4 chronic kidney disease (HCC); Stage 5 chronic kidney disease not on chronic dialysis (HCC) Allergies Active Allergy Reactions Criticality Noted Date Comments Pollen 05/17/2021 documented as of this encounter (statuses as of 08/22/2023) Medications Medication Sig Dispensed Refills Start Date [...] Oral TabletIndications:A lcohol use disorder, severe, dependence ([facility]) Take 1 Tablet (1 mg) [...] disease, with long-term current use of insulin ([facility]) Take 1 Tablet by mouth in the morning and 1 Tablet in the evening. Sp left THR for fracture 11/12/22. 11/29/2022 Active Multi-Vitamins Oral Tablet Take 1 Tablet by mouth in the morning. Active Lantus SoloStar 100 UNIT/ML Subcutaneous Solution Pen-injectorIndicat ions:Hypoglycemia,H ospital discharge follow-up,Type 2 diabetes mellitus with stage 3b chronic kidney disease, without long-term current use of insulin ([facility]),Labile blood glucose INJECT 16 UNITS SUBCUTANEOUSLY ONCE DAILY 6 mL 03/24/2023 Active Vitamin D3/PCB 4000 UNITS Oral Capsule ([facility]) Take 1 Capsule by mouth in the morning. Active DULoxetine HCl 30 MG Oral Capsule Delayed Release Particles (Cymbalta)Indicatio ns:Type 2 diabetes mellitus with stage 3a chronic kidney disease, with long-term current use of insulin ([facility]),History of substance abuse ([facility]),Alcohol use disorder, severe, dependence ([facility]),Polyneuropath y, unspecified Take 1 capsule [...] disease, with long-term current use of insulin ([facility]),Ischemic cardiomyopathy TAKE 1 TABLET BY MOUTH IN THE MORNING 90 Tablet 3 07/06/2023 Active Desloratadine 5 MG Oral Tablet (Clarinex)Indicatio ns:Sneezing,Seasona l allergic rhinitis due to pollen Take 1 Tablet by mouth in the morning. for allergies. 90 Tablet 1 07/12/2023 Active Thiamine HCl 100 MG Oral Tablet (vitamin B-1) Take 1 Tablet by mouth in the morning. Active Dexcom G7 Sensor 06/25/2023 Active BD Pen Needle Arpita 2nd Gen 32G X 4 MM USE TO INJECT INSULIN 4 TIMES A DAY 04/18/2023 Active Insulin Aspart 100 UNIT/ML Injection Solution (NovoLOG)Indication s:Type 2 DM with CKD stage 4 and hypertension ([facility]),Hospital discharge follow-up Using 5 units 10 -15 min before each meal per endo at [facility] 07/21/2023 Active NIFEdipine ER Osmotic Release 90 MG Oral Tablet Extended Release 24 Hour (Procardia XL)Indications:HTN, goal below 130/80,CKD (chronic kidney disease) stage 5, GFR less than 15 ml/min ([facility]) Take 1 Tablet by mouth every evening. Per Andersen 30 Tablet 08/03/2023 Active Magnesium Oxide -Mg [...] with food. 180 Tablet 3 07/31/2023 Active Sodium Zirconium Cyclosilicate 5 GM Oral Packet (Lokelma)Indication s:Hyperkalemia Take 1 Packet by mouth in the morning. 30 Packet 5 08/15/2023 Active hydrALAZINE HCl 25 MG Oral Tablet (Apresoline)Indicat ions:HTN, goal below 130/80 Take 1 Tablet by mouth in the morning and 1 Tablet before bedtime. 30 Tablet 6 08/16/2023 Active documented as of this encounter (statuses as of 08/22/2023) Active Problems Problem Noted Date Diagnosed Date Stage 5 chronic kidney disease not on chronic di alysis 08/22/2023 Food insecurity 05/01/2023 Overview: Per [employer] [...] edema 10/08/2021 Coronary artery disease invo lving torres martinez coronary artery of torres martinez heart without angina pectoris 03/26/2020 Anemia 02/14/2020 [...] as of this encounter (statuses as of 08/22/2023) Resolved Problems Problem Noted Date Diagnosed Date [...] as of this encounter (statuses as of 08/22/2023) Immunizations Name Administration Dates Next Due COVID-19 mRNA, LNP-s, No Pre serve, 2-Dose Series (Pfizer) 06/24/2020,06/01/2020 Pneumococcal Conjugate Vacci ne, 20-valent ([id number]) 02/25/2022 Pneumococcal Polysaccharide PPV23 (Pneumovax) 06/21/2021,04/26/2019 Seasonal [...] Sign Reading Time Taken Comments Blood Pressure 118/60 08/22/2023 11:12 AM EDT Pulse 64 08/22/2023 11:12 AM EDT Temperature 36.4 C (97.6 F) 08/22/2023 11:12 AM E DT Respiratory Rate 16 08/22/2023 11:12 AM EDT Oxygen Saturation 99% 08/22/2023 11:12 AM EDT Inhaled Oxygen Concentration - - Weight 92 kg (202 lb 12.8 oz) 08/22/2023 11:12 A M EDT Height 179 cm (5' 10.47") 08/22/2023 11:12 AM ED T Body Mass Index 28.71 08/22/2023 11:12 AM EDT documented in this encounter Patient Instructions * Patient Instructions* Mirza Adair, - 08/22/2023 11:15 AM EDT Taking Medicine Safely Medicine is given to help treat or prevent illness. But if you don't take it correctly, it might not help. It might even harm you. Your doctor or pharmacist can help you learn the right way to take your medicine. Listed below are some tips to help you take medicine safely. Safety Tips Have a routine for taking each medicine. Make it part of something you do each day, such as brushing your teeth or eating a meal. When you go to the hospital or your doctor's office, bring all your current medicines in their original boxes or bottles. If you can't do that, bring an up-to-date list of your medicines. Do not stop taking a prescription medicine unless your doctor tells you to. Doing so could make your condition worse. Do not share medicines. Let your doctor and pharmacist know of any allergies you have. Taking prescription medicines with alcohol, street drugs, herbs, supplements, or even some ghtn-jxp-pwdxrgb medicines can be harmful. Talk to your doctor or pharmacist before using any of these things while taking a prescription medicine. When filling your prescriptions, try using the same pharmacy for all your medicines. If not, let the pharmacist know what medicines you are already on. Keep medicines out of the reach of children and pets. Do not use medicine that has or that doesn't look or smell right. Get rid of it properly. To find out the right way to get rid of medicine: Call your [facility] or [facility]'s household trash and recycling service and ask if a drug take-back program is available in your community. Call your local pharmacy and ask the right way to get rid of the medicine. Go to http://www.fda.gov/ForConsumers/ConsumerUpdates/mze513434 to learn how to get rid of medicines safely. Using Generic Medicines Medicines have brand names and generic (chemical) names. When a medicine is first made, it is sold only under its brand name. Later, it can be made and sold as a generic. Generic medicines cost less than brand-name medicines and most work just as well. Most people can use the generic medicine instead of the brand-name medicine, unless their doctor says otherwise. [phone] [facility], [address] [place] [address], [place] [id number]. All rights reserved. This information is not intended as a substitute for professional medical care. Always follow your healthcare professional's instructions. Coping with Your Diagnosis of a Chronic Health Condition If you have a chronic health condition, you have a problem that may not go away over time. Heart disease, asthma, arthritis, and diabetes are just a few of the chronic conditions that exist. Right now, these conditions have no known cure. But you can take an active role in managing your health. Coping with Your Diagnosis If you've just learned about your health condition, you may be angry, depressed, or afraid. Or you might feel relieved just to know what's wrong. Even if you've known about your health problem for a while, adjusting to it can be hard. But learning about your condition can help you cope. Look for books at your local library. If you have access to a computer, check the Internet. Or contact a group that focuses on your specific problem. Accepting Change Change is hard for most people. Yet right now you may be facing many changes. What you eat or the way you work may change. Your moods, and even your symptoms, might vary from day to day. Although it isn't easy, learning to accept change can help you feel more in control. Taking Control Feeling you have control can make living with your condition easier. Discuss treatment options withyour health care provider. The more you know, the more active you can be in your care. Moving Forward You may wonder whether you will be able to do the things you've always done. That depends on your age, the condition you have, and your goals. To make the most of each day, try to build caring relationships, be active, and eat right. Also, do your best to keep a sense of humor. [phone] [facility], [address] [place] [address]. All rights reserved. This information is not intended as a substitute for professional medical care. Always follow your healthcare professional's instructions. Taking an Active Role in Your Medicines Take the time to learn about your medicine. For instance, why are you taking it? What does it do? Work with your doctor or other health care providers to get the answers you need. Talk to your pharmacist about how to take each medicine, and ask for a fact sheet on each one. Ask Questions About Your Medicine What is the name of the medicine? Why do I need to take it? When should I take it? How should I take it: with water? with food? on an empty stomach? How much do I take? What do I do if I miss a dose? What side effects could it cause and which ones should I call the doctor about? Are there any foods or medicines I should avoid while taking this medicine? Keeping track of your medications? Name of medicine: Taken for: Dose: Time(s) to take it: Take an Active Role Fill all your prescriptions at the same pharmacy. This keeps your medicine history in one place. Talk to the pharmacist. Make sure you understand how to take each medicine. Ask for a fact sheet about each one. Tell your doctor and pharmacist about all the prescription and rtke-ujy-vublipj medicines you take.This includes vitamins and herbal remedies. Tell your doctor and pharmacist if you have any medical conditions or allergies to any medicine or food, or if you are or . Keep a list of all your medicines. Use the sample to the right as a guide for the type of information needed. [id number] [facility], [address] [place] [address], [place] [address]. All rights reserved. This information is not intended as a substitute for professional medical care. Always follow your healthcare professional's instructions. documented in this encounter Progress Notes * Mirza Adair DO - 08/22/2023 11:15 AM EDT SUBJECTIVE: Dewayne Dillard is a 58 year old male. Chief Complaint Patient presents with Hospital Follow-Up Hospital Follow-Up Recent Admission: Patient was recently admitted to [facility]. The date of discharge was 08/12/23. Discharge report receivedand reviewed. HPI: Patient presents office for hospital follow-up appointment. Was admitted to [facility] from 08/10/23 to 08/12/23 after outpatient labs demonstrated hyperkalemia with potassium 6.4. Repeat level in the ER noted to be 5.2. Was noted to have some peaked T-waves. Was treated with IV calcium gluconate insulin and dextrose. Lokelma given. Recommended low-potassium diet. Levels improved with treatment. Wasthis charged on continued torsemide as well as Lokelma. Nephrology was consulted. Had recently had fistula placed for planned HD however still maturing. Repeat BMP on 08/17 demonstrated improved potassium to 5.1. Patient has associated CKD 5/ESRD, creatinine around baseline 5.2. States since discharge has been feeling fine. No dyspnea or orthopnea, other respiratory symptoms. States has been taking Lokelma as prescribed 1 packet daily. Asked about his Torsemide 60mg daily, 3- 20mg tabs, and states takes whatever placed in his pill organizer. States only concern is wondering when will start HD. Patient Active Problem List Diagnosis Obstructive sleep apnea of adult Depression, major, recurrent (HCC) Generalized anxiety disorder Dyslipidemia, goal LDL below 70 Tobacco use disorder HTN, goal below 140/80 Ischemic cardiomyopathy Alcohol use disorder, severe, dependence (HCC) Hx of colonic polyp Anemia Fatty liver Abnormal AST and ALT Coronary artery disease involving torres martinez coronary artery of torres martinez heart without angina pectoris History of nonmelanoma skin cancer Persistent proteinuria Bilateral leg edema Polyneuropathy, unspecified History of substance abuse (HCC) Pulmonary emphysema (HCC) Hypertensive heart and chronic kidney disease with heart failure and stage 1 through stage 4 chronic kidney disease, or chronic kidney disease (HCC) Hx of actinic keratosis Type 2 diabetes mellitus with stage 4 chronic kidney disease, with long-term current use of insulin(HCC) Vitamin D deficiency High serum parathyroid hormone (PTH) MCI (mild cognitive impairment) Food insecurity Current Outpatient Medications Medication Sig Dispense Refill [...] the morning. for allergies. 90 Tablet 1 Thiamine HCl 100 MG Oral Tablet (vitamin B-1) Take 1 Tablet by mouth in the morning. Dexcom G7 Sensor BD Pen Needle Arpita 2nd Gen 32G X 4 MM USE TO INJECT INSULIN 4 TIMES A DAY Insulin Aspart 100 UNIT/ML Injection Solution (NovoLOG) Using 5 units 10 -15 min before each meal per endo at [facility] NIFEdipine ER Osmotic Release 90 MG Oral Tablet Extended Release 24 Hour (Procardia XL) Take 1 Tablet by mouth every evening. Per Nate 30 Tablet 0 Magnesium Oxide -Mg Supplement 400 MG Oral [...] bedtime. Take with food. 180 Tablet 3 Sodium Zirconium Cyclosilicate 5 GM Oral Packet (Lokelma) Take 1 Packet by mouth in the morning. 30Packet 5 hydrALAZINE HCl 25 MG Oral Tablet (Apresoline) Take 1 Tablet by mouth in the morning and 1 Tablet before bedtime. 30 Tablet 6 No current facility-administered medications for this visit. Current and discharge medications have been reconciled. Review of patient's allergies indicates: Allergen Reactions Environmental [Pollen] OBJECTIVE: Pulse 64 | Temp 36.4 C (97.6 F) (Tympanic) | Resp 16 | Ht 1.79 m (5' 10.47") | Wt 92 kg (202 lb12.8 oz) | SpO2 99% | BMI 28.71 kg/m | BSA 2.14 m REVIEW OF SYSTEMS: Review of Systems Constitutional: Negative for chills, fatigue and fever. HENT: Negative for congestion, sore throat and trouble swallowing. Eyes: Negative for photophobia and pain. Respiratory: Negative for cough and shortness of breath. Cardiovascular: Negative for chest pain and palpitations. Gastrointestinal: Negative for abdominal distention, abdominal pain, nausea and vomiting. Genitourinary: Negative for dysuria and frequency. Musculoskeletal: Negative for back pain and neck stiffness. Skin: Negative for pallor. Neurological: Negative for dizziness, light-headedness and headaches. Psychiatric/Behavioral: Negative for sleep disturbance. The patient is not nervous/anxious. PHYSICAL EXAM: Pulse 64 | Temp 36.4 C (97.6 F) (Tympanic) | Resp 16 | Ht 1.79 m (5' 10.47") | Wt 92 kg (202 lb12.8 oz) | SpO2 99% | BMI 28.71 kg/m | BSA 2.14 m Physical Exam Constitutional: General: He is not in acute distress. Appearance: He is not ill-appearing. HENT: Head: Normocephalic and atraumatic. Right Ear: Tympanic membrane, ear canal and external ear normal. Left Ear: Tympanic membrane, ear canal and external ear normal. Nose: Nose normal. No congestion or rhinorrhea. Mouth/Throat: Mouth: Mucous membranes are moist. Pharynx: Oropharynx is clear. Eyes: General: No scleral icterus. Extraocular Movements: Extraocular movements intact. Conjunctiva/sclera: Conjunctivae normal. Pupils: Pupils are equal, round, and reactive to light. Neck: Vascular: No carotid bruit. Cardiovascular: Rate and Rhythm: Normal rate and regular rhythm. Pulses: Normal pulses. Heart sounds: Normal heart sounds. No murmur heard. No friction rub. No gallop. Pulmonary: Effort: Pulmonary effort is normal. Breath sounds: Normal breath sounds. No wheezing, rhonchi or rales. Abdominal: General: Bowel sounds are normal. There is no distension. Palpations: Abdomen is soft. There is no mass. Tenderness: There is no abdominal tenderness. There is no right CVA tenderness or left CVA tenderness. Musculoskeletal: General: No swelling or tenderness. Normal range of motion. Cervical back: Normal range of motion and neck supple. Right lower leg: No edema. Left lower leg: No edema. Comments: Right forearm fistula with audible bruit and palpable thrill Skin: General: Skin is warm and dry. Coloration: Skin is not jaundiced. Findings: No rash. Neurological: General: No focal deficit present. Mental Status: He is oriented to person, place, and time. Cranial Nerves: No cranial nerve deficit. Sensory: No sensory deficit. Motor: No weakness. Psychiatric: Mood and Affect: Mood normal. Behavior: Behavior normal. ASSESSMENT: Hyperkalemia (Primary) Hospital discharge follow-up - DISCH MED RECON CUR MED LIS Type 2 diabetes mellitus with stage 4 chronic kidney disease, with long-term current use of insulin([facility]) Dyslipidemia, goal LDL below 70 Pulmonary emphysema, unspecified emphysema type (HCC) Ischemic cardiomyopathy Obstructive sleep apnea of adult HTN, goal below 140/80 Coronary artery disease involving torres martinez coronary artery of torres martinez heart without angina pectoris History of substance abuse ([facility]) Polyneuropathy, unspecified Anemia due to stage 4 chronic kidney disease (HCC) Stage 5 chronic kidney disease not on chronic dialysis ([facility]) Plans: Patient presents for hospital follow up. Recent admission for Hyperkalemia, CKD5 Repeat K+ on 08/18/23 looked better at 5.1. Has repeat BMP ordered for next week prior to Nephrologyfollow up on 08/29/23. Instructed on importance of keeping this follow up. Continue current medications. Counseled on importance of taking Torsemide 60mg daily, Lokelma 5g 1 packet daily, Sodium Bicarbonate 650mg BID. Does not require refills at this time per patient Again recent BMP demonstrated improved K+ to 5.1. Known CKD5 Counseled patient that decision to start HD will be made by Nephrology once fistula matures and indication met to start therapy. Follow Up: Return if symptoms worsen or fail to improve, for Follow up next routine with PCP as scheduled. | For: Follow up next routine with PCP as scheduled | Check-out note: Follow up as scheduledin September Nephrology next week Follow up follow up PCP in September, Neprhology next week . I spent a total of 40-54 minutes (exact time 46 mins) minutes on the date of service in preparation, delivery, and documentation of the care provided to Dewayne Dillard excluding any time spent in performance of separately billed services. Mirza Adair DO documented in this encounter Nursing Notes * Elana Goa LPN - 08/22/2023 11:11 AM EDT Patient presents today for a hospital follow up. He said he was supposed to be starting dialysis soon. He had a fistula placed in his right arm. The hospital wanted him to have home health come in and check on his and they are looking for a home health referral. documented in this encounter Plan of Treatment Upcoming Encounters Date Type Department Care Team (Late st Contact Info) Description 08/29/2023 11:40 AM EDT Office Visit Nephrology, [facility] [address] [place] [id number] Amber Cornell MD [address] [place], [place] [address] 10/11/2023 1:00 PM EDT Office Visit General Internal Medicine [facility] [place] [address] [place] [phone] Charity Reed MD [address] [place] [address] 10/24/2023 1:40 PM EDT Office Visit General Internal Medicine [facility] [place] [address] [place] [id number] Charity Reed MD [address] [place] [address] 12/20/2023 8:30 AM EDT Therapy Neuropsychology [facility] [address] [place] [address] Randell Grimes, PhD [address] [place] [address] 02/19/2024 3:00 PM EST Office Visit Nephrology, [facility] [address] [place], [place] [address] Amber Cornell MD [address] [place], [place] [id number] 05/23/2024 1:20 PM EST Office Visit Dermatology [facility] [address] [place] [address] Alix Rajan PA-C [address] [place] [phone] 07/18/2024 3:00 PM EDT Office Visit Nephrology, [facility] [address] [place] [address] Amber Cornell MD [address] [place] [address] Scheduled Procedures Name Priority Associated Diagnoses Date/Ti [...] ASSESSMENT COMPLETED IN PAST YEAR FOR COPD 08/21/2024 08/22/2023 DTaP,Tdap,and Td Vaccines (3 - Td or [...] as of this encounter Visit Diagnoses Diagnosis Hyperkalemia- Primary Hyperpotassemia Hospital discharge follow-up Other follow-up examination Type 2 diabetes mellitus with stage 4 chronic kidney disease, with long-term current use of insulin (HCC) Dyslipidemia, goal LDL below 70 Other and unspecified hyperlipidemia Pulmonary emphysema, unspecified emphysema type (HCC) Ischemic cardiomyopathy Other specified forms of chronic ischemic heart disease Obstructive sleep apnea of adult Obstructive sleep apnea (adult) (pediatric) HTN, goal below 140/80 Unspecified essential hypertension Coronary artery disease involving torres martinez coronary artery of torres martinez heart without angina pectoris History of substance abuse (HCC) Other, mixed, or unspecified nondependent drug abuse, unspecified Polyneuropathy, unspecified Anemia due to stage 4 chronic kidney disease (HCC) Stage 5 chronic kidney disease not on chronic dialysis (HCC) documented in this encounter Advance Directives Healthcare Agents on File Name Relationship Healthcare Agent Relationship Communication Kavya Banks Other - (no specific identity) Health Care [employer] Firefighter (appointed verbally by patient or by statute hierarchy) Care Teams Sales Service Coordinator Relationship Specialty Start Date End Date Charity Reed MD [address] [place], [place] [address] [place] [address] PCP - General Internal Medicine 12/17/19 documented as of this encounter
--- OUTSIDE RECORDS SUMMARY | 2023-08-24 19:40 | External Medical Summary | Summary of Care ---
Author Name Unknown Organization [facility] Address [address] [place] [address] Phone [phone] Care Team Providers Care Settlement Clerk Name Role Phone Charity Reed MD Primary Care Provider [phone] Reason for Visit * Reason Onset Date Comments Precert Approved 08/15/2023 KHARI Precert In Process 08/15/2023 31 Encounter Details Date Type Department Care Team ([facility] st Contact Info) Description 08/15/2023 Telephone Nephrology, [address] Snow [address] [place] [address] Amber Cornell MD [address] [place] [address] Precert Approved ( SANDRAPR); Precert In P... Allergies Active Allergy Reactions Criticality Noted Date [...] a day as directed 100 Strip 11 2 Active Folic Acid 1 MG Oral TabletIndications:A lcohol use disorder, severe, dependence ([facility]) Take 1 Tablet (1 mg) by mouth in the morning. 90 Tablet 3 2 Active OneTouch Delica Lancets 33G Use to test sugars upto 2 times daily 100 Each 3 3 Active OneTouch Verio In Vitro Strip (Glucose Blood) Use to test sugars upto 2 timesdaily 100 Strip 3 3 Active Acetaminophen 325 MG Oral Tablet (Tylenol) 2 Tablets. 3 Active Aspirin 81 MG Oral Tablet Delayed ReleaseIndications: S/p left hip fracture,S/P total left hip arthroplasty,Hospit al discharge follow-up,Ischemic cardiomyopathy,Type 2 diabetes mellitus with stage 3a chronic kidney disease, with long-term current use of insulin ([facility]) Take 1 Tablet by mouth in the morning and 1 Tablet in the evening. Sp left THR for fracture 11/12/22. 3 Active Multi-Vitamins Oral Tablet Take 1 Tablet by mouth in the morning. Active Lantus SoloStar 100 UNIT/ML Subcutaneous Solution Pen-injectorIndicat ions:Hypoglycemia,H ospital discharge follow-up,Type 2 diabetes mellitus with stage 3b chronic kidney disease, without long-term current use of insulin ([facility]),Labile blood glucose INJECT 16 UNITS SUBCUTANEOUSLY ONCE DAILY 6 mL 4 Active Vitamin D3/PCB 4000 UNITS Oral Capsule (STUDY MED) Take 1 Capsule by mouth in the morning. Active DULoxetine HCl 30 MG Oral Capsule Delayed Release Particles (Cymbalta)Indicatio ns:Type 2 diabetes mellitus with stage 3a chronic kidney disease, with long-term current use of insulin ([facility]),History of substance abuse ([facility]),Alcohol use disorder, severe, dependence (HCC),Polyneuropath y, unspecified Take 1 capsule by mouth in the morning 90 Capsule 3 4 Active Pantoprazole Sodium 40 MG Oral Tablet Delayed Release (Protonix)Indicatio ns:Gastroesophageal reflux disease with esophagitis without hemorrhage TAKE 1 TABLET BY MOUTH IN THE MORNING 90 Tablet 1 4 Active Atorvastatin Calcium 80 MG Oral Tablet (Lipitor)Indication s:Type 2 diabetes mellitus with stage 3a chronic kidney disease, with long-term current use of insulin ([facility]),Ischemic cardiomyopathy TAKE 1 TABLET BY MOUTH IN THE MORNING 90 Tablet 3 4 Active Desloratadine 5 MG Oral Tablet (Clarinex)Indicatio ns:Sneezing,Seasona l allergic rhinitis due to pollen Take 1 Tablet by mouth in the morning. for allergies. 90 Tablet 1 4 Active Thiamine HCl 100 MG Oral Tablet (vitamin B-1) Take 1 Tablet by mouth in the morning. Active Dexcom G7 Sensor 4 Active BD Pen Needle Arpita 2nd Gen 32G X 4 MM USE TO INJECT INSULIN 4 TIMES A DAY 4 Active Insulin Aspart 100 UNIT/ML Injection Solution (NovoLOG)Indication s:Type 2 DM with CKD stage 4 and hypertension ([facility]),Hospital discharge follow-up Using 5 units 10 -15 min before each meal per endo at [facility] 4 Active NIFEdipine ER Osmotic Release 90 MG Oral Tablet Extended Release 24 Hour (Procardia XL)Indications:HTN, goal below 130/80,CKD (chronic kidney disease) stage 5, GFR less than 15 ml/min ([facility]) Take 1 Tablet by mouth every evening. Per Mariselasen 30 Tablet 4 Active Magnesium Oxide -Mg Supplement 400 MG Oral Capsule Take 400 mg by mouth in the morning. 30 Capsule 5 4 Active Loperamide HCl 2 MG Oral Tablet (Immodium (A-D)) 1 Tablet as needed. 3 Active oxyCODONE-Acetamino phen 5-325 MG Oral Tablet (Percocet) Take 1 Tablet by mouth every 6 hours as needed. 4 Active Sodium Bicarbonate 650 MG Oral Tablet Take 2 Tablets by mouth in the morning and 2 Tablets before bedtime. 360 Tablet 3 4 Active Torsemide 20 MG Oral Tablet (Demadex) Take 3 Tablets by mouth in the morning. 270 Tablet 3 4 Active Carvedilol 12.5 MG Oral Tablet (Coreg)Indications: ONDINA (acute kidney injury) ([facility]),Type 2 DM with CKD stage 4 and hypertension ([facility]),HTN, goal below 140/80 Take 2 Tablets by mouth in the morning and 2 Tablets before bedtime. Take with food. 180 Tablet 3 4 Active Sodium Zirconium Cyclosilicate 5 GM Oral Packet (Lokelma)Indication s:Hyperkalemia Take 1 Packet by mouth in the morning. 30 Packet 5 4 Active hydrALAZINE HCl 25 MG Oral Tablet (Apresoline) Take 1 Tablet by mouth in the morning and 1 Tablet before bedtime. 08/16/19 24 Discontinu ed(Refill) documented as of this encounter (statuses as [...] edema 10/08/2021 Coronary artery disease invo lving [place] coronary artery of [place] heart without angina pectoris 03/26/2020 Anemia 02/14/2020 [...] (Pfizer) 06/24/2020,06/01/2020 Pneumococcal Conjugate Vacci ne, 20-valent ([id number]) 02/25/2022 Pneumococcal Polysaccharide PPV23 (Pneumovax) 06/21/2021,04/26/2019 Seasonal [...] Telephone Encounter - Felisha Alfred RN - 08/21/2023 2:43 PM EDT Follow up provided by CKD mutuel department manager. Refer to her notes. * Telephone Encounter - Ania Choudhary LPN - 08/17/2023 8:31 AM EDT Spoke with sister she is out of town She is made aware of Dr Cornell's recommendations Pt needs BMP either today or tomorrow Kavya states Pt is going in tomorrow for other labs Will get done on Monday with theses She is aware Dr Cornell will make recommendations based on this and we will contact regarding Will continue to work on prior auth * Telephone Encounter - Amber Cornell MD - 08/16/2023 5:19 PM EDT Check bmp tomorrow or Mon AM Virginia Mccallum (if Monday TTExt me w/ results when posted) Based on that will likely increase torsemide; we can do this for a bit of time but w/o lokelma he may end up on dialysis sooner if on higher than otherwise needed torse doses * Telephone Encounter - Ania Choudhary LPN - 08/16/2023 4:28 PM EDT Spoke with sister Kavya She is concerned that potassium is high wondering if Rx can be picked up Advised precert was kicked back to precert team Our office received a denial stating no documentation via labs that K is high to approve Lokelma even though there are labs from 08/10/23 5 days prior to precert are noted to chart We were sent appeal paperwork which could take days Advised till then willreach out to Dr Cornell to see if she has other recommendations till then Dr Cornell Please advise Lokema denied due to no documentation on hyperkalemia via labs I have sent this back to precert as this was probably missed on their end Last labs 08/10/23 Is there any otherrecommendations you can give till this is resolved * Telephone Encounter - Ania Choudhary LPN - 08/16/2023 2:15 PM EDT Not sure why pt had labs 08/10/23 and prior 07/21/23 All resulted to chart * Telephone Encounter - Vilma Martinez CPhT - 08/16/2023 11:04 AM EDT Patients insurance would like to inform the office that Sodium Zirconium Cyclosilicate 5 GM Oral Packet (Lokelma) is denied because do not see documentation of recent potassium levels. They will fax this info to the office, please review and resubmit if appropriate. Thank you, Dolly Martinez Rn Diabetes Educator [facility] ([facility]) 08/16/2023,11:04 AM * Telephone Encounter - Felisha Alfred RN - 08/15/2023 4:01 PM EDT Prior auth submitted through Cover My meds as submitted from [facility]. * Telephone Encounter - Felisha Alfred RN - 08/15/2023 11:07 AM EDT Nephrology Medicine Pre-Cert Request Medication/Disease State Information: Medication: Lokelma Diagnosis (including ICD-10): E87.5 Medication(s) Tried/Failed/Contraindicated: NA See corresponding visit note(s) for additional supporting clinical information. Office Information: Prescriber: Dr Amber Cornell documented in this encounter Plan of Treatment Upcoming Encounters Date Type Department Care Team (Late st Contact Info) Description 08/22/2023 11:00 AM EDT Office Visit General Internal Medicine [facility] [address] [facility] [place] [address] Mirza Adiar, [address] [address] 10/11/2023 1:00 PM EDT Office Visit General Internal Medicine [facility] [address] [place] [address] Charity Reed MD [address] [facility] [place] [address] 10/24/2023 1:40 PM EDT Office Visit General Internal Medicine [facility] [address] [place] [address] Charity Reed MD [address] [facility] [place] [address] 12/20/2023 8:30 AM EDT Therapy Neuropsychology [facility] [address] [facility] [place] [address] Randell Grimes, PhD [address] [facility] [place] [address] 02/19/2024 3:00 PM EST Office Visit Nephrology, [facility] [address] [facility] [address] [place] [address] Amber Cornell MD [address] [facility] [place] [address] 05/23/2024 1:20 PM EST Office Visit Dermatology [facility] [address] [place] [address] Alix Rajan PA-C [address] [facility] [place] [phone] 07/18/2024 3:00 PM EDT Office Visit Nephrology, [facility] Snow [address] [facility] [place] [address] Amber Cornell MD [address] [facility] [place] [address] Scheduled Procedures Name Priority Associated Diagnoses Date/Ti [...] 03/14/2023, Additional history exists Phosphate 07/20/2024 07/21/2023, 04/11/2023, 04/07/2023, Additional history exists Nephrology Referral 07/30/2024 [...] encounter Visit Diagnoses Diagnosis Hyperkalemia- Primary Hyperpotassemia documented in this encounter Advance Directives Healthcare Agents on File Name Relationship Healthcare Agent Relationship Communication Kavya Banks Other - (no specific identity) Health Care Lithographic Proofer Apprentice (appointed verbally by patient or by statute hierarchy) Care Teams Settlement Clerk Relationship Specialty Start Date End Date Charity Reed MD [address] [place] [address] PCP - General Internal Medicine 12/17/19 documented as of this encounter
--- OUTSIDE RECORDS SUMMARY | 2023-08-24 19:40 | External Medical Summary | Summary of Care ---
Author Name Unknown Organization [facility] Address [address] [place] [address] Phone [phone] Care Team Providers Care Gymnasium Teacher Name Role Phone Charity Reed MD Primary Care Provider [phone] Reason for Visit * Reason Onset Date Comments Precert Approved 08/15/2023 MARTHA Precert In Process 08/15/2023 31 Encounter Details Date Type Department Care Team ([facility] st Contact Info) Description 08/15/2023 Telephone Nephrology, [address] Snow [address] [place] [address] Amber Cornell MD [address] [place] [address] Precert Approved ( SANDRAVT); Precert In P... Allergies Active Allergy Reactions [...] TabletIndications:A lcohol use disorder, severe, dependence ([facility]) Take 1 Tablet (1 mg) by mouth [...] with long-term current use of insulin ([facility]) Take 1 Tablet by mouth in the morning and 1 Tablet in the evening. Sp left THR for fracture 11/12/22. 3 Active Multi-Vitamins Oral Tablet Take 1 Tablet by mouth in the morning. Active Lantus SoloStar 100 UNIT/ML Subcutaneous Solution Pen-injectorIndicat ions:Hypoglycemia,H ospital discharge follow-up,Type 2 diabetes mellitus with stage 3b chronic kidney disease, without long-term current use of insulin ([facility]),Labile blood glucose INJECT 16 UNITS SUBCUTANEOUSLY ONCE DAILY 6 mL 4 Active Vitamin D3/PCB 4000 UNITS Oral Capsule (STUDY MED) Take 1 Capsule by mouth in the morning. Active DULoxetine HCl 30 MG Oral Capsule Delayed Release Particles (Cymbalta)Indicatio ns:Type 2 diabetes mellitus with stage 3a chronic kidney disease, with long-term current use of insulin ([facility]),History of substance abuse ([facility]),Alcohol use disorder, severe, dependence (HCC),Polyneuropath y, unspecified [...] with long-term current use of insulin ([facility]),Ischemic cardiomyopathy TAKE 1 TABLET BY MOUTH IN [...] with CKD stage 4 and hypertension ([facility]),Hospital discharge follow-up Using 5 units 10 -15 min before each meal per endo at [facility] 4 Active NIFEdipine ER Osmotic Release 90 MG Oral Tablet Extended Release 24 Hour (Procardia XL)Indications:HTN, goal below 130/80,CKD (chronic kidney disease) stage 5, GFR less than 15 ml/min ([facility]) Take 1 Tablet by mouth every evening. [...] Oral Tablet (Coreg)Indications: ONDINA (acute kidney injury) ([facility]),Type 2 DM with CKD stage 4 and hypertension ([facility]),HTN, goal below 140/80 Take 2 Tablets by [...] edema 10/08/2021 Coronary artery disease invo lving [place] coronary artery of [place] heart without angina pectoris 03/26/2020 Anemia 02/14/2020 [...] (Pfizer) 06/24/2020,06/01/2020 Pneumococcal Conjugate Vacci ne, 20-valent ([id number]) 02/25/2022 Pneumococcal Polysaccharide PPV23 (Pneumovax) 06/21/2021,04/26/2019 Seasonal [...] encounter Miscellaneous Notes * Telephone Encounter - Ania Choudhary LPN [...] PM EDT Check bmp tomorrow or Mon [place] Mccallum (if Monday TTExt me w/ [...] labs that K is high to approve Martha even though there are labs from 08/10/23 [...] this is resolved * Telephone Encounter - nAia Choudhary LPN - 08/16/2023 2:15 PM EDT [...] resubmit if appropriate. Thank you, Dolly Martinez Floor Installer [facility] ([facility]) 08/16/2023,11:04 AM * Telephone Encounter - Felisha Alfred RN - 08/15/2023 4:01 PM EDT Prior auth submitted through Cover My meds as submitted from [facility]. * Telephone Encounter - Felisha Alfred [...] AM EDT Office Visit General Internal Medicine [facility] [address] [place], [place] [address] Mirza Adair, [address] [address] 10/11/2023 1:00 PM EDT Office Visit General Internal Medicine [facility] [address] [place] [address] Charity Reed MD [address] [place], [place] [address] 10/24/2023 1:40 PM EDT Office Visit General Internal Medicine [facility] [address] [place], [place] [address] Charity Reed MD [address] [place], [place] [address] 12/20/2023 8:30 AM EDT Therapy Neuropsychology [facility] [address] [place], [place] [address] Randell Grimes, PhD [address] [facility] [place], [place] [address] 02/19/2024 3:00 PM EST Office Visit Nephrology, [facility] [address] [place], [place] [address] Amber Cornell MD [address] [place], [place] [address] 05/23/2024 1:20 PM EST Office Visit Dermatology [facility] [address] [place], [place] [address] Alix Rajan PA-C [address] [facility] [place] [phone] 07/18/2024 3:00 PM EDT Office Visit Nephrology, [facility] [address] [place], [place] [address] Amber Cornell MD 200 [facility] [place] [address] Scheduled Procedures Name Priority Associated Diagnoses Date/Ti me COLONOSCOPY FLEXIBLE PROXIMAL DIAGNOSTIC Recall History of colon polyps Health Maintenance Due Date Last Done Comments HIV Screening 06/17/1979 Alpha-1 Antitrypsin 1982 Cologuard 2009 Fecal Occult Blood Test 2009 Sigmoidoscopy 2009 DISCUSS TOBACCO CESSATION (REFER TO SMARTSET #6211) 05/01/2016 05/01/2015 (Discussed) Diabetic Eye Exam 04/26/2020 [...] Other - (no specific identity) Health Care Accounts Receivable Manager (appointed verbally by patient or by statute hierarchy) Care Teams Gymnasium Teacher Relationship Specialty Start Date End Date Charity Reed MD [address] [place] [address] PCP - General Internal Medicine 12/17/19 documented as of this encounter
--- OUTSIDE RECORDS SUMMARY | 2023-08-24 19:40 | External Medical Summary | Summary of Care ---
Author Name Unknown Organization [facility] Address [address] [place] [address] Phone [phone] Care Team Providers Care Shoeshiner Name Role Phone Charity Reed MD Primary Care Provider [phone] Reason for Visit * Reason Onset Date Comments Test Results 08/22/2023 Encounter Details Date Type Department Care Team (Late st Contact Info) Description 08/22/2023 Telephone Nephrology, [address] [place] [address] Amber Cornell MD [address] [place] [address] Test Results Allergies Active Allergy Reactions Criticality [...] Oral TabletIndications:A lcohol use disorder, severe, dependence ([facility]) Take 1 Tablet (1 mg) [...] disease, with long-term current use of insulin ([facility]) Take 1 Tablet by mouth in the morning and 1 Tablet in the evening. Sp left THR for fracture 11/12/22. 11/29/2022 Active Multi-Vitamins Oral Tablet Take 1 Tablet by mouth in the morning. Active Lantus SoloStar 100 UNIT/ML Subcutaneous Solution Pen-injectorIndicat ions:Hypoglycemia,H ospital discharge follow-up,Type 2 diabetes mellitus with stage 3b chronic kidney disease, without long-term current use of insulin ([facility]),Labile blood glucose INJECT 16 UNITS SUBCUTANEOUSLY ONCE DAILY 6 mL 03/24/2023 Active Vitamin D3/PCB 4000 UNITS Oral Capsule (STUDY MED) Take 1 Capsule by mouth in the morning. Active DULoxetine HCl 30 MG Oral Capsule Delayed Release Particles (Cymbalta)Indicatio ns:Type 2 diabetes mellitus with stage 3a chronic kidney disease, with long-term current use of insulin ([facility]),History of substance abuse ([facility]),Alcohol use disorder, severe, dependence ([facility]),Polyneuropath y, unspecified Take 1 capsule [...] disease, with long-term current use of insulin ([facility]),Ischemic cardiomyopathy TAKE 1 TABLET BY [...] DM with CKD stage 4 and hypertension ([facility]),Hospital discharge follow-up Using 5 units 10 -15 min before each meal per endo at [facility] 07/21/2023 Active NIFEdipine ER Osmotic Release 90 MG Oral Tablet Extended Release 24 Hour (Procardia XL)Indications:HTN, goal below 130/80,CKD (chronic kidney disease) stage 5, GFR less than 15 ml/min ([facility]) Take 1 Tablet by mouth [...] edema 10/08/2021 Coronary artery disease invo lving [place] coronary artery of [place] heart without angina pectoris 03/26/2020 Anemia 02/14/2020 [...] (Pfizer) 06/24/2020,06/01/2020 Pneumococcal Conjugate Vacci ne, 20-valent ([id number]) 02/25/2022 Pneumococcal Polysaccharide PPV23 (Pneumovax) 06/21/2021,04/26/2019 Seasonal [...] Telephone Encounter - Felisha Alfred RN - 08/22/2023 1:09 PM EDT TE with pt's sister regarding lab results. He is taking his Lokelma as ordered and is aware to repeat labs on 08/24/23. * Telephone Encounter - Felisha Alfred RN - 08/22/2023 1:08 PM EDT ----- Message from Amber Cornell MD sent at 08/22/2023 11:33 AM EDT ----- Kidney labs slowly worsening but stable; cont same; sill disc more at OV next week >lokelma update? Does he haveit? Is he taking etc documented in this encounter Plan of Treatment Upcoming Encounters Date Type Department Care Team (Late st Contact Info) Description 08/29/2023 11:40 AM EDT Office Visit Nephrology, [facility] [place] [address] [employer], [place] [address] Amber Cornell MD [address] [place] [address] 10/11/2023 1:00 PM EDT Office Visit General Internal Medicine [facility] [address] [place], [place] [address] Charity Reed MD [address] [place], [place] [address] 10/24/2023 1:40 PM EDT Office Visit General Internal Medicine [facility] [place] [address] [place], [place] [address] Charity Reed MD [address] [place], [place] [address] 12/20/2023 8:30 AM EDT Therapy Neuropsychology [facility] 200 [facility] [place] [address] Randell Grimes, PhD 200 [facility] [place] [address] 02/19/2024 3:00 PM EST Office Visit Nephrology, [facility] [address] [facility] [place] [address] Amber Cornell MD 200 [facility] [place] [address] 05/23/2024 1:20 PM EST Office Visit Dermatology [facility] 200 [facility] [place], [place] [address] Alix Rajan PA-C [address] [facility] [place] [address] 07/18/2024 3:00 PM EDT Office Visit Nephrology, [facility] [address] [place], [place] [id number] Amber Cornell MD 200 [facility] [place], [place] [address] Scheduled Procedures Name Priority Associated Diagnoses Date/Ti [...] Other - (no specific identity) Health Care Hat Forming Machine Operator (appointed verbally by patient or by statute hierarchy) Care Teams Shoeshiner Relationship Specialty Start Date End Date Charity Reed MD [address] [facility] [place] [address] PCP - General Internal Medicine 12/17/19 documented as of this encounter
--- OUTSIDE RECORDS SUMMARY | 2023-08-24 19:41 | External Medical Summary | Summary of Care ---
Author Name Unknown Organization [facility] Address [address] [place] [address] Phone [phone] Care Team Providers Care Integrated Marketing Intern Name Role Phone Charity Reed MD Primary Care Provider [phone] Reason for Visit * Reason Onset Date Comments Pre Cert/Prior Auth 08/15/2023 Encounter Details Date Type Department Care Team (Late st Contact Info) Description 08/15/2023 Telephone Nephrology, [facility] [address] [place] [address] Amber Cornell MD [address] [place] [address] Pre Cert/Prior Auth Allergies Active Allergy Reactions Criticality Noted Date Comments Pollen 05/17/2021 documented as of this encounter (statuses as of 08/17/2023) Medications Medication Sig Dispensed Refills Start Date [...] TabletIndications:A lcohol use disorder, severe, dependence ([facility]) Take 1 Tablet (1 mg) [...] use of insulin ([facility]),History of substance abuse ([facility]),Alcohol use disorder, severe, dependence (HCC),Polyneuropath [...] use of insulin ([facility]),Ischemic cardiomyopathy TAKE 1 TABLET BY [...] [facility] 4 Active NIFEdipine ER Osmotic Release 90 MG Oral Tablet Extended Release 24 Hour (Procardia XL)Indications:HTN, goal below 130/80,CKD (chronic kidney disease) stage 5, GFR less than 15 ml/min ([facility]) Take 1 [...] mouth in the morning. 30 Packet 5 Active hydrALAZINE HCl 25 MG Oral Tablet (Apresoline) Take 1 Tablet by mouth in the morning and 1 Tablet before bedtime. 08/16/19 24 Discontinu ed(Refill) documented as of this encounter (statuses as of 08/17/2023) Active Problems Problem Noted Date Diagnosed Date [...] edema 10/08/2021 Coronary artery disease invo lving [place] coronary artery of [place] heart without angina pectoris 03/26/2020 Anemia 02/14/2020 [...] as of this encounter (statuses as of 08/17/2023) Resolved Problems Problem Noted Date Diagnosed Date [...] as of this encounter (statuses as of 08/17/2023) Immunizations Name Administration Dates Next Due COVID-19 mRNA, LNP-s, No Pre serve, 2-Dose Series (Pfizer) 06/24/2020,06/01/2020 Pneumococcal Conjugate Vacci ne, 20-valent ([id number]) 02/25/2022 Pneumococcal Polysaccharide PPV23 (Pneumovax) 06/21/2021,04/26/2019 Seasonal [...] resubmit if appropriate. Thank you, Dolly Martinez Research And Development Specialist I Centralized Clinical Pharmacy Services (Formerly Telepharmacy) 08/16/2023,11:04 AM * Telephone Encounter - Felisha Alfred RN - 08/15/2023 4:01 PM EDT Prior auth submitted through Cover My meds as submitted from [facility]. * Telephone Encounter - Felisha Alfred RN - 08/15/2023 11:07 AM EDT Nephrology Medicine Pre-Cert Request Medication/Disease State Information: Medication: Lokelma Diagnosis (including ICD-10): E87.5 Medication(s) Tried/Failed/Contraindicated: NA See corresponding visit note(s) for additional supporting clinical information. Office Information: Prescriber: Dr Amber Cornell documented in this encounter Plan of Treatment Upcoming Encounters Date Type Department Care Team (Late st Contact Info) Description 08/18/2023 9:00 AM EDT Office Visit General Internal Medicine [address] [place] [address] Charity Reed MD [address] [place] [address] 10/11/2023 1:00 PM EDT Office Visit General Internal Medicine [facility] [address] [place] [address] Charity Reed MD [address] [place] [address] 10/24/2023 1:40 PM EDT Office Visit General Internal Medicine [facility] [address] [place] [address] Charity Reed MD [address] [place] [address] 12/20/2023 8:30 AM EDT Therapy Neuropsychology [facility] [address] [place], [place] [id number] Randell Grimes, PhD 200 [facility] [place] [address] 02/19/2024 3:00 PM EST Office Visit Nephrology, [facility] [address] [place] [address] Amber Cornell MD [address] [place] [address] 05/23/2024 1:20 PM EST Office Visit Dermatology [facility] [address] [place] [address] Alix Rajan PA-C [address] [facility] [address] 07/18/2024 3:00 PM EDT Office Visit Nephrology, [facility] [address] [place] [address] Amber Cornell MD [address] [place], [place] [id number] Scheduled Procedures Name Priority Associated Diagnoses Date/Ti me COLONOSCOPY FLEXIBLE PROXIMAL DIAGNOSTIC Recall History of colon polyps Health Maintenance Due Date Last Done Comments HIV Screening 06/17/1979 Alpha-1 Antitrypsin 1982 Cologuard 2009 Fecal Occult Blood Test 2009 Sigmoidoscopy 2009 DISCUSS TOBACCO CESSATION (REFER TO SMARTSET #2657) 05/01/2016 05/01/2015 (Discussed) Diabetic Eye Exam 04/26/2020 04/26/2019, 08/18/2017 Diabetic Foot Exam 12/23/2021 12/23/2020, 1 03/31/2019, 04/26/2019, Additional history exists COVID-19 Vaccine ( season) 2022 06/24/2020, 06/01/2020 Colonoscopy 01/05/2023 01/06/2020, 01/06/2020 Colorectal Cancer Screening 01/05/2023 HbA1c 12/27/2023 06/27/2023, 03/20, 08/22/2022, Additional history exists GFR 02/10/2024 08/10/2023, 05/0 05/2023, 07/11/2023, Additional history exists PTH 06/26/2024 06/27/2023, 03/20, [...] Other - (no specific identity) Health Care Pouncing Machine Operator (appointed verbally by patient or by statute hierarchy) Care Teams Integrated Marketing Intern Relationship Specialty Start Date End Date Charity Reed MD [address] [place] [address] PCP - General Internal Medicine 12/17/19 documented as of this encounter
--- OUTSIDE RECORDS SUMMARY | 2023-08-24 19:41 | External Medical Summary | Summary of Care ---
Author Name Unknown Organization [facility] Address [address] [place] [address] Phone [phone] Care Team Providers Care Glass Frame Fitter Name Role Phone Charity Reed MD Primary Care Provider [phone] Reason for Visit * Reason Onset Date Comments Pre Cert/Prior Auth 08/15/2023 Encounter Details Date Type Department Care Team (Late st Contact Info) Description 08/15/2023 Telephone Nephrology, [facility] Snow [address] [place] [address] Amber Cornell MD [address] [place] [address] Pre Cert/Prior Auth Allergies Active Allergy Reactions [...] Oral TabletIndications:A lcohol use disorder, severe, dependence ([facility]) Take 1 Tablet (1 [...] disease, with long-term current use of insulin ([facility]) Take 1 Tablet by mouth in the morning and 1 Tablet in the evening. Sp left THR for fracture 11/12/22. 3 Active Multi-Vitamins Oral Tablet Take 1 Tablet by mouth in the morning. Active Lantus SoloStar 100 UNIT/ML Subcutaneous Solution Pen-injectorIndicat ions:Hypoglycemia,H ospital discharge follow-up,Type 2 diabetes mellitus with stage 3b chronic kidney disease, without long-term current use of insulin ([facility]),Labile blood glucose INJECT 16 UNITS SUBCUTANEOUSLY ONCE DAILY 6 mL 4 Active Vitamin D3/PCB 4000 UNITS Oral Capsule (STUDY MED) Take 1 Capsule by mouth in the morning. Active DULoxetine HCl 30 MG Oral Capsule Delayed Release Particles (Cymbalta)Indicatio ns:Type 2 diabetes mellitus with stage 3a chronic kidney disease, with long-term current use of insulin ([facility]),History of substance abuse ([facility]),Alcohol use disorder, severe, dependence [...] disease, with long-term current use of insulin ([facility]),Ischemic cardiomyopathy TAKE 1 TABLET [...] min before each meal per endo at [facility] 4 Active NIFEdipine ER Osmotic Release 90 MG Oral Tablet Extended Release 24 Hour (Procardia XL)Indications:HTN, goal below 130/80,CKD (chronic kidney disease) stage 5, GFR less than 15 ml/min ([facility]) Take 1 Tablet by [...] edema 10/08/2021 Coronary artery disease invo lving [place] coronary artery of [place] heart without angina pectoris 03/26/2020 Anemia [...] (Pfizer) 06/24/2020,06/01/2020 Pneumococcal Conjugate Vacci ne, 20-valent ([id number]) 02/25/2022 Pneumococcal Polysaccharide PPV23 (Pneumovax) 06/21/2021,04/26/2019 Seasonal [...] resubmit if appropriate. Thank you, Dolly Martinez Cat Wagon Operator I Centralized Clinical Pharmacy Services (Formerly Telepharmacy) 08/16/2023,11:04 AM * Telephone Encounter - Felisha Alfred RN - 08/15/2023 4:01 PM EDT Prior auth submitted through Cover My meds as submitted from [facility]. * Telephone Encounter - Felisha [...] AM EDT Office Visit General Internal Medicine [address] [place] [address] Charity Reed MD [address] [place] [address] 10/11/2023 1:00 PM EDT Office Visit General Internal Medicine [facility] [address] [place] [address] Charity Reed MD [address] [place] [address] 10/24/2023 1:40 PM EDT Office Visit General Internal Medicine [facility] [address] [place] [address] Charity Reed MD [address] [place] [address] 12/20/2023 8:30 AM EDT Therapy Neuropsychology [facility] [address] [place], [place] [id number] Randell Grimes, PhD 200 [facility] [place] [address] 02/19/2024 3:00 PM EST Office Visit Nephrology, [facility] [address] [place] [address] Amber Cornell MD [address] [place] [address] 05/23/2024 1:20 PM EST Office Visit Dermatology [facility] [address] [place] [address] Alix Rajan PA-C [address] [facility] [place] [address] 07/18/2024 3:00 PM EDT Office Visit Nephrology, [facility] [address] [place] [address] Amber Cornell MD [address] [place], [place] [id number] Scheduled Procedures Name Priority Associated Diagnoses Date/Ti me COLONOSCOPY FLEXIBLE PROXIMAL DIAGNOSTIC Recall History of colon polyps Health Maintenance Due Date Last Done Comments HIV Screening 06/17/1979 Alpha-1 Antitrypsin 1982 Cologuard 2009 Fecal Occult Blood Test 2009 Sigmoidoscopy 2009 DISCUSS TOBACCO CESSATION (REFER TO SMARTSET #9729) 05/01/2016 05/01/2015 (Discussed) Diabetic Eye Exam 04/26/2020 [...] Other - (no specific identity) Health Care Doughnut Batter Mixer (appointed verbally by patient or by statute hierarchy) Care Teams Glass Frame Fitter Relationship Specialty Start Date End Date Charity Reed MD [address] [place] [address] PCP - General Internal Medicine 12/17/19 documented as of this encounter
--- OUTSIDE RECORDS SUMMARY | 2023-08-24 19:41 | External Medical Summary | Summary of Care ---
Author Name Unknown Organization [facility] Address [address] [place] [address] Phone [phone] Care Team Providers Care Loaders Name Role Phone Charity Reed MD Primary Care Provider [phone] Reason for Visit * Reason Onset Date Comments Pre Cert/Prior Auth 08/15/2023 31 YUKO LUCIA Precert In Process 08/15/2023 31 Encounter Details Date Type Department Care Team ([facility] st Contact Info) Description 08/15/2023 [facility] [address] [place] [address] Amber Cornell MD [address] [place] [address] Pre Cert/Prior Auth (31 YUKO VELIZ... Allergies Active Allergy Reactions Criticality Noted Date Comments Pollen 05/17/2021 documented as of this encounter (statuses as of 08/18/2023) Medications Medication Sig Dispensed Refills Start Date [...] Oral TabletIndications:A lcohol use disorder, severe, dependence ([facility]) Take 1 Tablet (1 mg) by mouth [...] disease, with long-term current use of insulin ([facility]) Take 1 Tablet by mouth in the morning and 1 Tablet in the evening. Sp left THR for fracture 11/12/22. 3 Active Multi-Vitamins Oral Tablet Take 1 Tablet by mouth in the morning. Active Lantus SoloStar 100 UNIT/ML Subcutaneous Solution Pen-injectorIndicat ions:Hypoglycemia,H ospital discharge follow-up,Type 2 diabetes mellitus with stage 3b chronic kidney disease, without long-term current use of insulin ([facility]),Labile blood glucose INJECT 16 UNITS SUBCUTANEOUSLY ONCE DAILY 6 mL 4 Active Vitamin D3/PCB 4000 UNITS Oral Capsule (STUDY MED) Take 1 Capsule by mouth in the morning. Active DULoxetine HCl 30 MG Oral Capsule Delayed Release Particles (Cymbalta)Indicatio ns:Type 2 diabetes mellitus with stage 3a chronic kidney disease, with long-term current use of insulin ([facility]),History of substance abuse ([facility]),Alcohol use disorder, severe, dependence ([facility]),Polyneuropath y, unspecified Take 1 capsule by mouth [...] disease, with long-term current use of insulin ([facility]),Ischemic cardiomyopathy TAKE 1 TABLET BY MOUTH IN [...] DM with CKD stage 4 and hypertension ([facility]),Hospital discharge follow-up Using 5 units 10 -15 min before each meal per endo at [facility] 4 Active NIFEdipine ER Osmotic Release 90 MG Oral Tablet Extended Release 24 Hour (Procardia XL)Indications:HTN, goal below 130/80,CKD (chronic kidney disease) stage 5, GFR less than 15 ml/min ([facility]) Take 1 Tablet by mouth every evening. Per Andersen 30 Tablet 4 Active Magnesium Oxide -Mg [...] Oral Tablet (Coreg)Indications: ONDINA (acute kidney injury) ([facility]),Type 2 DM with CKD stage 4 and hypertension ([facility]),HTN, goal below 140/80 Take 2 Tablets by [...] as of this encounter (statuses as of 08/18/2023) Active Problems Problem Noted Date Diagnosed Date [...] edema 10/08/2021 Coronary artery disease invo lving [place] coronary artery of [place] heart without angina pectoris 03/26/2020 Anemia 02/14/2020 [...] as of this encounter (statuses as of 08/18/2023) Resolved Problems Problem Noted Date Diagnosed Date [...] as of this encounter (statuses as of 08/18/2023) Immunizations Name Administration Dates Next Due COVID-19 mRNA, LNP-s, No Pre serve, 2-Dose Series (Pfizer) 06/24/2020,06/01/2020 Pneumococcal Conjugate Vacci ne, 20-valent ([id number]) 02/25/2022 Pneumococcal Polysaccharide PPV23 (Pneumovax) 06/21/2021,04/26/2019 Seasonal [...] recommendations till then Dr Cornell Please advise Brittany denied due to no documentation on hyperkalemia [...] resubmit if appropriate. Thank you, Dolly Martinez Angle Roll Operator I Centralized Clinical Pharmacy Services (Formerly Telepharmacy) 08/16/2023,11:04 AM * Telephone Encounter - Felisha Alfred RN - 08/15/2023 4:01 PM EDT Prior auth submitted through Cover My meds as submitted from [facility]. * Telephone Encounter - Felisha [...] AM EDT Office Visit General Internal Medicine [facility] [address] [place], [place] [address] Charity Reed MD [address] [place], [place] [address] 10/11/2023 1:00 PM EDT Office Visit General Internal Medicine [facility] [address] [place], [place] [address] Charity Reed MD [address] [address] 10/24/2023 1:40 PM EDT Office Visit General Internal Medicine [facility] [address] [place], [place] [address] Charity Reed MD [address] [place] [address] 12/20/2023 8:30 AM EDT Therapy Neuropsychology [facility] [address] [place] [address] Randell Grimes, PhD [address] [facility] [place] [address] 02/19/2024 3:00 PM EST Office Visit Nephrology, [facility] [address] [place], [place] [address] Amber Cornell MD [address] [place], [place] [address] 05/23/2024 1:20 PM EST Office Visit Dermatology [facility] [address] [place], [place] [address] Alix Rajan PA-C 200 [facility] [place] [address] 07/18/2024 3:00 PM EDT Office Visit Nephrology, [facility] [address] [place] [address] Amber Cornell MD [address] [place], [place] [address] Scheduled Procedures Name Priority Associated Diagnoses Date/Ti [...] 08/22/2022, Additional history exists GFR 02/10/2024 08/10/2023, 0505/2023, 07/11/2023, Additional history exists PTH 06/26/2024 06/27/2023, 03/20, 11/29/2022, Additional history exists Albumin/Creatinine Ratio 07/10/20242 024, 05/17/2021, 03/18/2020, Additional history exists Hgb 07/20/2024 07/21/2023, 03/20, 03/14/2023, Additional history exists Phosphate 07/20/2024 07/21/2023, 040 11/2023, 04/07/2023, Additional history exists Nephrology Referral [...] Other - (no specific identity) Health Care Interpretive Program Coordinator (appointed verbally by patient or by statute hierarchy) Care Teams Loaders Relationship Specialty Start Date End Date Charity Reed MD [address] [address] PCP - General Internal Medicine 12/17/19 documented as of this encounter
--- OUTSIDE RECORDS SUMMARY | 2023-08-24 19:41 | External Medical Summary | Summary of Care ---
Author Name Unknown Organization [facility] Address [address] [place] [address] Phone [phone] Care Team Providers Care Braille Coder Name Role Phone Charity Reed MD Primary Care Provider [phone] Reason for Visit * Reason Onset Date Comments Pre Cert/Prior Auth 08/15/2023 Encounter Details Date Type Department Care Team (Late st Contact Info) Description 08/15/2023 Telephone Nephrology, [facility] [address] [place] [address] Amber Cornell MD [address] [place] [address] Pre Cert/Prior Auth Allergies Active Allergy Reactions Criticality Noted Date Comments Pollen 05/17/2021 documented as of this encounter (statuses as of 08/16/2023) Medications Medication Sig Dispensed Refills Start Date [...] TabletIndications:A lcohol use disorder, severe, dependence ([facility]) Take 1 Tablet (1 mg) by mouth [...] with long-term current use of insulin ([facility]) Take 1 Tablet by mouth in the morning and 1 Tablet in the evening. Sp left THR for fracture 11/12/22. 3 Active Multi-Vitamins Oral Tablet Take 1 Tablet by mouth in the morning. Active Lantus SoloStar 100 UNIT/ML Subcutaneous Solution Pen-injectorIndicat ions:Hypoglycemia,H ospital discharge follow-up,Type 2 diabetes mellitus with stage 3b chronic kidney disease, without long-term current use of insulin ([facility]),Labile blood glucose INJECT 16 UNITS SUBCUTANEOUSLY ONCE DAILY 6 mL 4 Active Vitamin D3/PCB 4000 UNITS Oral Capsule (STUDY MED) Take 1 Capsule by mouth in the morning. Active DULoxetine HCl 30 MG Oral Capsule Delayed Release Particles (Cymbalta)Indicatio ns:Type 2 diabetes mellitus with stage 3a chronic kidney disease, with long-term current use of insulin ([facility]),History of substance abuse ([facility]),Alcohol use disorder, severe, dependence (HCC),Polyneuropath y, unspecified [...] with long-term current use of insulin ([facility]),Ischemic cardiomyopathy TAKE 1 TABLET BY MOUTH IN [...] min before each meal per endo at [facility] 4 Active NIFEdipine ER Osmotic Release 90 MG Oral Tablet Extended Release 24 Hour (Procardia XL)Indications:HTN, goal below 130/80,CKD (chronic kidney disease) stage 5, GFR less than 15 ml/min ([facility]) Take 1 Tablet by mouth every evening. [...] as of this encounter (statuses as of 08/16/2023) Active Problems Problem Noted Date Diagnosed Date [...] edema 10/08/2021 Coronary artery disease invo lving [place] coronary artery of [place] heart without angina pectoris 03/26/2020 Anemia 02/14/2020 [...] as of this encounter (statuses as of 08/16/2023) Resolved Problems Problem Noted Date Diagnosed Date [...] as of this encounter (statuses as of 08/16/2023) Immunizations Name Administration Dates Next Due COVID-19 mRNA, LNP-s, No Pre serve, 2-Dose Series (Pfizer) 06/24/2020,06/01/2020 Pneumococcal Conjugate Vacci ne, 20-valent ([id number]) 02/25/2022 Pneumococcal Polysaccharide PPV23 (Pneumovax) 06/21/2021,04/26/2019 Seasonal [...] encounter Miscellaneous Notes * Telephone Encounter - Amber Cornell MD [...] resubmit if appropriate. Thank you, Dolly Martinez Rose Grower I Centralized Clinical Pharmacy Services (Formerly Telepharmacy) 08/16/2023,11:04 AM * Telephone Encounter - Felisha Alfred RN - 08/15/2023 4:01 PM EDT Prior auth submitted through Cover My meds as submitted from [facility]. * Telephone Encounter - [...] Office Visit General Internal Medicine [facility] [place] [address] [place] [address] Charity Reed MD [address] [place] [address] 10/11/2023 1:00 PM EDT Office Visit General Internal Medicine [employer] [address] [place] [address] Charity Reed MD [address] [facility] [place] [address] 10/24/2023 1:40 PM EDT Office Visit General Internal Medicine [facility] [address] [place] [address] Charity Reed MD [address] [facility] [place] [address] 12/20/2023 8:30 AM EDT Therapy Neuropsychology [facility] [address] [facility] [place] [address] Randell Grimes, PhD [address] [facility] [place] [address] 02/19/2024 3:00 PM EST Office Visit Nephrology, [facility] [address] [facility] [place] [address] Amber Cornell MD [address] [facility] [place] [address] 05/23/2024 1:20 PM EST Office Visit Dermatology [facility] [address] [place] [address] Alix Rajan PA-C [address] [facility] [place] [address] 07/18/2024 3:00 PM EDT Office Visit Nephrology, [facility] [address] [place] [address] Amber Cornell MD [address] [facility] [place] [address] Scheduled Procedures Name Priority Associated Diagnoses Date/Ti [...] 03/31/2019, 04/26/2019, Additional history exists COVID-19 Vaccine (3 - 2022-24 season) 2022 06/24/2020, 06/01/2020 Colonoscopy 01/05/2023 01/06/2020, [...] Other - (no specific identity) Health Care Medical Transcription Radiology (appointed verbally by patient or by statute hierarchy) Care Teams Braille Coder Relationship Specialty Start Date End Date Charity Reed MD [address] [place], [place] [phone] PCP - General Internal Medicine 12/17/19 documented as of this encounter
--- OUTSIDE RECORDS SUMMARY | 2023-08-24 19:41 | External Medical Summary | Summary of Care ---
Author Name Unknown Organization [facility] Address [address] [place] [address] Phone [phone] Care Team Providers Care Orchid Worker Name Role Phone Charity Reed MD Primary Care Provider [phone] Reason for Visit * Reason Comments Outpatient Testing Encounter Details Date Type Department Care Team (Late st Contact Info) Description 08/18/2023 3:10 PM EDT Laboratory Laboratory [facility] [place] [address] [place] [address] Vest Lab [facility] 200 [facility] [place] [address] CKD (chronic kidney disease) stage 5, GFR less than 15 ml/min ([facility]) Allergies Active Allergy Reactions Criticality Noted Date [...] Oral TabletIndications:A lcohol use disorder, severe, dependence ([facility]) Take 1 Tablet (1 mg) [...] long-term current use of insulin ([facility]) Take 1 Tablet by mouth [...] long-term current use of insulin ([facility]),Labile blood glucose INJECT 16 UNITS SUBCUTANEOUSLY ONCE DAILY 6 mL 03/24/2023 Active Vitamin D3/PCB 4000 UNITS Oral Capsule (STUDY MED) Take 1 Capsule by mouth in the morning. Active DULoxetine HCl 30 MG Oral Capsule Delayed Release Particles (Cymbalta)Indicatio ns:Type 2 diabetes mellitus with stage 3a chronic kidney disease, with long-term current use of insulin ([facility]),History of substance abuse ([facility]),Alcohol use disorder, severe, dependence ([facility]),Polyneuropath y, unspecified Take 1 capsule [...] long-term current use of insulin ([facility]),Ischemic cardiomyopathy TAKE 1 TABLET BY [...] DM with CKD stage 4 and hypertension ([facility]),Hospital discharge follow-up Using 5 units 10 -15 min before each meal per endo at [facility] 07/21/2023 Active NIFEdipine ER Osmotic Release 90 MG Oral Tablet Extended Release 24 Hour (Procardia XL)Indications:HTN, goal below 130/80,CKD (chronic kidney disease) stage 5, GFR less than 15 ml/min ([facility]) Take 1 Tablet by mouth every evening. Per Mariselasen 30 Tablet 08/03/2023 Active Magnesium Oxide -Mg [...] Oral Tablet (Coreg)Indications: ONDINA (acute kidney injury) ([facility]),Type 2 DM with CKD stage 4 and hypertension ([facility]),HTN, goal below 140/80 Take 2 [...] edema 10/08/2021 Coronary artery disease invo lving [place] coronary artery of [place] heart without angina pectoris 03/26/2020 Anemia 02/14/2020 [...] (Pfizer) 06/24/2020,06/01/2020 Pneumococcal Conjugate Vacci ne, 20-valent ([id number]) 02/25/2022 Pneumococcal Polysaccharide PPV23 (Pneumovax) 06/21/2021,04/26/2019 Seasonal [...] AM EDT Office Visit General Internal Medicine [facility] [address] [place] [address] Mirza Adair, [address] [address] 10/11/2023 1:00 PM EDT Office Visit General Internal Medicine [facility] [address] [place] [address] Charity Reed MD [address] [place] [address] 10/24/2023 1:40 PM EDT Office Visit General Internal Medicine [facility] [address] [place] [address] Charity Reed MD [address] [facility] [address] 12/20/2023 8:30 AM EDT Therapy Neuropsychology [facility] [place] [address] [place] [address] Randell Grimes, PhD 200 [facility] [place] [address] 02/19/2024 3:00 PM EST Office Visit Nephrology, [facility] [address] [place] [address] Amber Conrell MD [address] [place] [address] 05/23/2024 1:20 PM EST Office Visit Dermatology [facility] [address] [place] [address] Alix Rajan PA-C 200 [facility] [place] [address] 07/18/2024 3:00 PM EDT Office Visit Nephrology, [facility] 200 [facility] [place] [address] Amber Cornell MD 200 [facility] [place] [address] Pending Results Name Type Priority Associated Diagnoses Date /Time BASIC METABOLIC PANEL Lab Routine CKD (chronic kidney disease) stage 5, GFR less than 15 ml/min ([facility]) 08/18/2023 3:10 PM EDT Scheduled Procedures Name Priority Associated Diagnoses Date/Ti me COLONOSCOPY FLEXIBLE PROXIMAL DIAGNOSTIC Recall History of colon polyps Health Maintenance Due Date Last Done Comments HIV Screening 06/17/1979 Alpha-1 Antitrypsin 1982 Cologuard 2009 Fecal Occult Blood Test 2009 Sigmoidoscopy 2009 DISCUSS TOBACCO CESSATION (REFER TO SMARTSET #6602) 05/01/2016 05/01/2015 (Discussed) Diabetic Eye Exam 04/26/2020 [...] ml/min (HCC) Chronic kidney disease, Stage V documented in this encounter Advance Directives Healthcare Agents on File Name Relationship Healthcare Agent Relationship Communication Kavya Banks Other - (no specific identity) Health Care Medical Records Analyst (appointed verbally by patient or by statute hierarchy) Care Teams Orchid Worker Relationship Specialty Start Date End Date Charity Reed MD [address] [place] [address] PCP - General Internal Medicine 12/17/19 documented as of this encounter
--- OUTSIDE RECORDS SUMMARY | 2023-08-24 19:41 | External Medical Summary | Summary of Care ---
Author Name Unknown Organization [facility] Address [address] [place] [address] Phone [phone] Care Team Providers Care Facilities Operator Name Role Phone Charity Reed MD Primary Care Provider [phone] Reason for Visit * Reason Onset Date Comments Pre Cert/Prior Auth 08/15/2023 Encounter Details Date Type Department Care Team (Late st Contact Info) Description 08/15/2023 Telephone Nephrology, [facility] [address] [place] [address] Amber Cornell MD [address] [place] [address] Pre Cert/Prior Auth Allergies Active Allergy Reactions [...] Oral TabletIndications:A lcohol use disorder, severe, dependence ([facility]) Take 1 Tablet (1 mg) [...] disease, with long-term current use of insulin ([facility]) Take 1 Tablet by mouth in the morning and 1 Tablet in the evening. Sp left THR for fracture 11/12/22. 3 Active Multi-Vitamins Oral Tablet Take 1 Tablet by mouth in the morning. Active Lantus SoloStar 100 UNIT/ML Subcutaneous Solution Pen-injectorIndicat ions:Hypoglycemia,H ospital discharge follow-up,Type 2 diabetes mellitus with stage 3b chronic kidney disease, without long-term current use of insulin ([facility]),Labile blood glucose INJECT 16 UNITS SUBCUTANEOUSLY ONCE DAILY 6 mL 4 Active Vitamin D3/PCB 4000 UNITS Oral Capsule (STUDY MED) Take 1 Capsule by mouth in the morning. Active DULoxetine HCl 30 MG Oral Capsule Delayed Release Particles (Cymbalta)Indicatio ns:Type 2 diabetes mellitus with stage 3a chronic kidney disease, with long-term current use of insulin ([facility]),History of substance abuse ([facility]),Alcohol use disorder, severe, dependence (HCC),Polyneuropath [...] disease, with long-term current use of insulin ([facility]),Ischemic cardiomyopathy TAKE 1 TABLET BY [...] min before each meal per endo at [facility] 4 Active NIFEdipine ER Osmotic Release 90 MG Oral Tablet Extended Release 24 Hour (Procardia XL)Indications:HTN, goal below 130/80,CKD (chronic kidney disease) stage 5, GFR less than 15 ml/min ([facility]) Take 1 Tablet by mouth [...] (Pfizer) 06/24/2020,06/01/2020 Pneumococcal Conjugate Vacci ne, 20-valent ([id number]) 02/25/2022 Pneumococcal Polysaccharide PPV23 (Pneumovax) 06/21/2021,04/26/2019 Seasonal [...] resubmit if appropriate. Thank you, Dolly Martinez [employer] [facility] (Formerly Telepharmacy) 08/16/2023,11:04 AM * Telephone Encounter - Felisha Alfred RN - 08/15/2023 4:01 PM EDT Prior auth submitted through Cover My meds as submitted from [facility]. * Telephone Encounter - Felisha Alfred RN - 08/15/2023 11:07 AM EDT Nephrology Medicine Pre-Cert Request Medication/Disease State Information: Medication: [place] Diagnosis (including ICD-10): E87.5 Medication(s) Tried/Failed/Contraindicated: NA See corresponding visit note(s) for additional supporting clinical information. Office Information: Prescriber: Dr Amber Cornell documented in this encounter Plan of Treatment Upcoming Encounters Date Type Department Care Team (Late st Contact Info) Description 08/18/2023 9:00 AM EDT Office Visit General Internal Medicine [facility] [address] [place] [address] Charity Reed MD [address] [place], [place] [address] 10/11/2023 1:00 PM EDT Office Visit General Internal Medicine [facility] [address] [place] [address] Charity Reed MD [address] [place], [place] [address] 10/24/2023 1:40 PM EDT Office Visit General Internal Medicine [facility] [address] [place] [address] Charity Reed MD [address] [place] [address] 12/20/2023 8:30 AM EDT Therapy Neuropsychology [facility] [address] [place] [address] Randell Grimes, PhD [address] [place] [address] 02/19/2024 3:00 PM EST Office Visit Nephrology, [facility] 200 [facility] [place], [place] [address] Amber Cornell MD 200 [facility] [place], [place] [address] 05/23/2024 1:20 PM EST Office Visit Dermatology [facility] [place] [address] [place] [address] Alix Rajan PA-C [address] [facility] [place] [address] 07/18/2024 3:00 PM EDT Office Visit Nephrology, [facility] [address] [place] [address] Amber Cornell MD 200 [facility] [place] [address] Scheduled Procedures Name Priority Associated Diagnoses Date/Ti [...] 08/22/2022, Additional history exists GFR 02/10/2024 08/10/2023, 054, 07/11/2023, Additional history exists PTH 06/26/2024 06/27/2023, [...] Other - (no specific identity) Health Care Graphite Pan Drier Tender (appointed verbally by patient or by statute hierarchy) Care Teams Facilities Operator Relationship Specialty Start Date End Date Charity Reed MD [address] [place] [address] PCP - General Internal Medicine 12/17/19 documented as of this encounter
--- OUTSIDE RECORDS SUMMARY | 2023-08-24 19:41 | External Medical Summary ---
Author Name Unknown Address Unknown Organization K09:[facility] [address] Laboratory Report Ordering Provider Test Date Status SHERWIN ENRIQUEZ 08/18/2023 15:10:28 Final Observation Date Value Abnormality Reference (Units ) Status BUN 08/18/2023 15:10:28 90 Above high normal 6-20 (mg/dL) Final Creatinine 08/18/2023 15:10:28 5.2 Above high normal 0.6-1.2 (mg/dL) Final Glomerular filtration rate/1.73 sq M.predicted [Volume Rate/Area] in Serum, Plasma or Blood by Creatinine-based formula (CKD-EPI) 08/18/2023 15:10:28 12 Below low normal >=60 (mL/min) Final eGFR is calculated based on the CKD-EPI 2020 equation Sodium 08/18/2023 15:10:28 134 Below low normal 135 -146 (mmol/L) Final Potassium 08/18/2023 15:10:28 5.1 3.5-5.1 (m mol/L) Final Cl 08/18/2023 15:10:28 99 98-107 (mm ol/L) Final CO2 08/18/2023 15:10:28 21 Below low normal 22- 32 (mmol/L) Final Anion gap 08/18/2023 15:10:28 14 7-15 (mmol /L) Final Glucose 08/18/2023 15:10:28 271 Above high normal 70 -120 (mg/dL) Final Calcium 08/18/2023 15:10:28 9.2 8.4-10.2 ( mg/dL) Final Performing Location [facility] [place] [address]
--- OUTSIDE RECORDS SUMMARY | 2023-08-24 19:41 | External Medical Summary | Summary of Care ---
Author Name Unknown Organization [facility] Address [address] [place] [address] Phone [phone] Care Team Providers Care Rayon Winder Name Role Phone Charity Reed MD Primary Care Provider [phone] Reason for Visit * Reason Onset Date Comments Pre Cert/Prior Auth 08/15/2023 Encounter Details Date Type Department Care Team (Late st Contact Info) Description 08/15/2023 Telephone Nephrology, [facility] [address] [place] [address] Amber Cornell MD [address] [place] [address] Pre Cert/Prior Auth Allergies Active Allergy Reactions [...] TabletIndications:A lcohol use disorder, severe, dependence ([facility]) Take 1 Tablet (1 mg) by mouth [...] with long-term current use of insulin ([facility]) Take 1 Tablet by mouth in the morning and 1 Tablet in the evening. Sp left THR for fracture 11/12/22. 3 Active Multi-Vitamins Oral Tablet Take 1 Tablet by mouth in the morning. Active Lantus SoloStar 100 UNIT/ML Subcutaneous Solution Pen-injectorIndicat ions:Hypoglycemia,H ospital discharge follow-up,Type 2 diabetes mellitus with stage 3b chronic kidney disease, without long-term current use of insulin ([facility]),Labile blood glucose INJECT 16 UNITS SUBCUTANEOUSLY ONCE DAILY 6 mL 4 Active Vitamin D3/PCB 4000 UNITS Oral Capsule (STUDY MED) Take 1 Capsule by mouth in the morning. Active DULoxetine HCl 30 MG Oral Capsule Delayed Release Particles (Cymbalta)Indicatio ns:Type 2 diabetes mellitus with stage 3a chronic kidney disease, with long-term current use of insulin ([facility]),History of substance abuse ([facility]),Alcohol use disorder, severe, dependence (HCC),Polyneuropath y, unspecified [...] with long-term current use of insulin ([facility]),Ischemic cardiomyopathy TAKE 1 TABLET BY MOUTH IN [...] before each meal per endo at [facility] 4 Active NIFEdipine ER Osmotic Release 90 MG Oral Tablet Extended Release 24 Hour (Procardia XL)Indications:HTN, goal below 130/80,CKD (chronic kidney disease) stage 5, GFR less than 15 ml/min ([facility]) Take 1 Tablet by mouth every evening. [...] (Pfizer) 06/24/2020,06/01/2020 Pneumococcal Conjugate Vacci ne, 20-valent ([id number]) 02/25/2022 Pneumococcal Polysaccharide PPV23 (Pneumovax) 06/21/2021,04/26/2019 Seasonal [...] resubmit if appropriate. Thank you, Dolly Martinez [employer] [facility] (Formerly Telepharmacy) 08/16/2023,11:04 AM * Telephone Encounter - Felisha Alfred RN - 08/15/2023 4:01 PM EDT Prior auth submitted through Cover My meds as submitted from [facility]. * Telephone Encounter - Felisha [...] AM EDT Office Visit General Internal Medicine [place] [address] [place] [address] Charity Reed MD [address] [place] [address] 10/11/2023 1:00 PM EDT Office Visit General Internal Medicine [facility] [address] [place] [address] Charity Reed MD [address] [place] [address] 10/24/2023 1:40 PM EDT Office Visit General Internal Medicine [facility] [address] [place] [address] Charity Reed MD [address] [place] [address] 12/20/2023 8:30 AM EDT Therapy Neuropsychology [facility] [address] [place], [place] [phone] Randell Grimes, PhD [address] [facility] [address] 02/19/2024 3:00 PM EST Office Visit Nephrology, [facility] [address] [place] [address] Amber Cornell MD [address] [place] [address] 05/23/2024 1:20 PM EST Office Visit Dermatology [facility] [address] [place] [address] Alix Rajan PA-C [address] [place] [address] 07/18/2024 3:00 PM EDT Office Visit Nephrology, [facility] [address] [place] [address] Amber Cornell MD [address] [place], [place] [id number] Scheduled Procedures Name Priority Associated Diagnoses Date/Ti me COLONOSCOPY FLEXIBLE PROXIMAL DIAGNOSTIC Recall History of colon polyps Health Maintenance Due Date Last Done Comments HIV Screening 06/17/1979 Alpha-1 Antitrypsin 1982 Cologuard 2009 Fecal Occult Blood Test 2009 Sigmoidoscopy 2009 DISCUSS TOBACCO CESSATION (REFER TO SMARTSET #5659) 05/01/2016 05/01/2015 (Discussed) Diabetic Eye Exam 04/26/2020 [...] Other - (no specific identity) Health Care Spline Rolling Machine Job Setter (appointed verbally by patient or by statute hierarchy) Care Teams [place]on Winder Relationship Specialty Start Date End Date Charity Reed MD [address] [place] [address] PCP - General Internal Medicine 12/17/19 documented as of this encounter
--- OUTSIDE RECORDS SUMMARY | 2023-08-24 19:42 | External Medical Summary | Summary of Care ---
Author Name Unknown Organization [facility] Address [address] [place] [address] Phone [phone] Care Team Providers Care Jewel Corner Brushing Machine Operator Name Role Phone Charity Reed MD Primary Care Provider [phone] Reason for Visit * Reason Onset Date Comments Medication Refill 08/16/2023 Encounter Details Date Type Department Care Team (Late st Contact Info) Description 08/16/2023 Refill Care Coordination and Integration [address] [place], [place] [id number] Griselda Coulter, KATHERIN [address] [place], [place] [id number] HTN, goal below 130/80* Allergies Active Allergy Reactions Criticality Noted Date [...] Oral TabletIndications:A lcohol use disorder, severe, dependence ([facility]) Take 1 Tablet (1 mg) by [...] disease, with long-term current use of insulin ([facility]) Take 1 Tablet by mouth in the morning and 1 Tablet in the evening. Sp left THR for fracture 11/12/22. 3 Active Multi-Vitamins Oral Tablet Take 1 Tablet by mouth in the morning. Active Lantus SoloStar 100 UNIT/ML Subcutaneous Solution Pen-injectorIndicat ions:Hypoglycemia,H ospital discharge follow-up,Type 2 diabetes mellitus with stage 3b chronic kidney disease, without long-term current use of insulin ([facility]),Labile blood glucose INJECT 16 UNITS SUBCUTANEOUSLY ONCE DAILY 6 mL 4 Active Vitamin D3/PCB 4000 UNITS Oral Capsule (STUDY MED) Take 1 Capsule by mouth in the morning. Active DULoxetine HCl 30 MG Oral Capsule Delayed Release Particles (Cymbalta)Indicatio ns:Type 2 diabetes mellitus with stage 3a chronic kidney disease, with long-term current use of insulin ([facility]),History of substance abuse ([facility]),Alcohol use disorder, severe, dependence (HCC),Polyneuropath y, [...] disease, with long-term current use of insulin ([facility]),Ischemic cardiomyopathy TAKE 1 TABLET BY MOUTH [...] DM with CKD stage 4 and hypertension ([facility]),Hospital discharge follow-up Using 5 units 10 -15 min before each meal per endo at [facility] 4 Active NIFEdipine ER Osmotic Release 90 MG Oral Tablet Extended Release 24 Hour (Procardia XL)Indications:HTN, goal below 130/80,CKD (chronic kidney disease) stage 5, GFR less than 15 ml/min ([facility]) Take 1 Tablet by mouth every [...] Oral Tablet (Coreg)Indications: ONDINA (acute kidney injury) ([facility]),Type 2 DM with CKD stage 4 and hypertension ([facility]),HTN, goal below 140/80 Take 2 Tablets [...] 1 Tablet before bedtime. 30 Tablet 6 4 Active hydrALAZINE HCl 25 MG Oral [...] edema 10/08/2021 Coronary artery disease invo lving [place] coronary artery of [place] heart without angina pectoris 03/26/2020 Anemia 02/14/2020 [...] (Pfizer) 06/24/2020,06/01/2020 Pneumococcal Conjugate Vacci ne, 20-valent ([id number]) 02/25/2022 Pneumococcal Polysaccharide PPV23 (Pneumovax) 06/21/2021,04/26/2019 Seasonal [...] encounter Miscellaneous Notes * Telephone Encounter - Zoe Courtney MD - 08/16/2023 4:10 PM EDTSigned Prescriptions: Disp Refills hydrALAZINE HCl 25 MG Oral Tablet (Apresol*30 Tab*6 Sig: Take 1 Tablet by mouth in the morning and 1 Tablet before bedtime. Authorizing Provider: ZOE COURTNEY * Telephone Encounter - Griselda Coulter RN - 08/16/2023 3:43 PM EDT Pended order for you if you are in agreement. Thank you, Griselda Coulter, RN Kidney Transitions Specialist CKD Core Maker Helper documented in this encounter Plan of Treatment Upcoming Encounters Date Type Department Care Team (Late st Contact Info) Description 08/18/2023 9:00 AM EDT Office Visit General Internal Medicine [facility] [address] [place], [place] [address] Charity Reed MD [address] [place], [place] [address] 10/11/2023 1:00 PM EDT Office Visit General Internal Medicine [facility] [address] [place], [place] [address] Charity Reed MD [address] [place], [place] [address] 10/24/2023 1:40 PM EDT Office Visit General Internal Medicine [facility] [address] [place] [address] Charity Reed MD 200 [facility] [place] [address] 12/20/2023 8:30 AM EDT Therapy Neuropsychology [facility] 200 [facility] [place] [address] Randell Grimes, PhD [address] [facility] [place] [address] 02/19/2024 3:00 PM EST Office Visit Nephrology, [facility] [address] [facility] [place], [place] [address] Zoe Courtney MD 200 [facility] [place] [address] 05/23/2024 1:20 PM EST Office Visit Dermatology [facility] [address] [facility] [place] [address] Alix Rajan PA-C 200 [facility] [place] [address] 07/18/2024 3:00 PM EDT Office Visit Nephrology, [facility] [address] [facility] [address] [place] [address] Zoe Courtney MD 200 [facility] [place] [address] Scheduled Procedures Name Priority Associated Diagnoses Date/Ti [...] Additional history exists COVID-19 Vaccine (3 - season) 2022 06/24/2020, 06/01/2020 Colonoscopy 01/05/2023 01/06/2020, [...] encounter Visit Diagnoses Diagnosis HTN, goal below 130/80- Primary Unspecified essential hypertension documented in this encounter Advance Directives Healthcare Agents on File Name Relationship Healthcare Agent Relationship Communication Kavya Banks Other - (no specific identity) Health Care Machine Stonecutter (appointed verbally by patient or by statute hierarchy) Care Teams Jewel Corner Brushing Machine Operator Relationship Specialty Start Date End Date Charity Reed MD [address] [place] [address] PCP - General Internal Medicine 12/17/19 documented as of this encounter
--- OUTSIDE RECORDS SUMMARY | 2023-08-24 19:42 | External Medical Summary | Summary of Care ---
Author Name Unknown Organization [facility] Address [address] [place] [address] Phone [phone] Care Team Providers Care Title Agent Name Role Phone Charity Reed MD Primary Care Provider [phone] Reason for Visit * Reason Onset Date Comments Pre Cert/Prior Auth 08/15/2023 Encounter Details Date Type Department Care Team (Late st Contact Info) Description 08/15/2023 Telephone Nephrology, Oriana Snow [address] [place] [address] Amber Cornell MD [address] [place] [address] Pre Cert/Prior Auth Allergies Active Allergy Reactions [...] Oral TabletIndications:A lcohol use disorder, severe, dependence ([facility]) Take 1 Tablet (1 mg) by [...] use of insulin ([facility]),Ischemic cardiomyopathy TAKE 1 TABLET BY MOUTH [...] before each meal per endo at [facility] 07/21/2023 Active NIFEdipine ER Osmotic Release 90 MG Oral Tablet Extended Release 24 Hour (Procardia XL)Indications:HTN, goal below 130/80,CKD (chronic kidney disease) stage 5, GFR less than 15 ml/min ([facility]) Take 1 Tablet by mouth every [...] the morning. 30 Packet 5 08/15/2023 Active documented as of this encounter (statuses [...] edema 10/08/2021 Coronary artery disease invo lving [place] coronary artery of [place] heart without angina pectoris 03/26/2020 Anemia 02/14/2020 [...] (Pfizer) 06/24/2020,06/01/2020 Pneumococcal Conjugate Vacci ne, 20-valent ([id number]) 02/25/2022 Pneumococcal Polysaccharide PPV23 (Pneumovax) 06/21/2021,04/26/2019 Seasonal [...] resubmit if appropriate. Thank you, Dolly Martinez [place] [employer] [facility] (Formerly Telepharmacy) 08/16/2023,11:04 AM * Telephone Encounter - Felisha Alfred RN - 08/15/2023 4:01 PM EDT Prior auth submitted through Cover [facility] * Telephone Encounter - Felisha Alfred [...] Office Visit General Internal Medicine [facility] [place] [address] Charity Reed MD [address] [place] [address] 10/11/2023 1:00 PM EDT Office Visit General Internal Medicine [facility] [address] [place] [address] Charity Reed MD [address] [place] [address] 10/24/2023 1:40 PM EDT Office Visit General Internal Medicine [facility] [address] [place] [address] Charity Reed MD [address] [place] [address] 12/20/2023 8:30 AM EDT Therapy Neuropsychology [facility] [address] [place] [address] Randell Grimes, PhD [address] [place] [address] 02/19/2024 3:00 PM EST Office Visit Nephrology, [facility] [address] [place] [address] Amber Cornell MD [address] [place] [address] 05/23/2024 1:20 PM EST Office Visit Dermatology [facility] [address] [place] [address] Alix Rajan PA-C [address] [facility] [place] [address] 07/18/2024 3:00 PM EDT Office Visit Nephrology, [facility] [address] [place] [address] Amber Cornell MD [address] [place] [address] Scheduled Procedures Name Priority Associated Diagnoses Date/Ti me COLONOSCOPY FLEXIBLE PROXIMAL DIAGNOSTIC Recall History of colon polyps Health Maintenance Due Date Last Done Comments HIV Screening 06/17/1979 Alpha-1 Antitrypsin 1982 Cologuard 2009 Fecal Occult Blood Test 2009 Sigmoidoscopy 2009 DISCUSS TOBACCO CESSATION (REFER TO SMARTSET #7107) 05/01/2016 05/01/2015 (Discussed) Diabetic Eye Exam 04/26/2020 [...] Other - (no specific identity) Health Care Remote Encoding Center Manager (appointed verbally by patient or by statute hierarchy) Care Teams Title Agent Relationship Specialty Start Date End Date Charity Reed MD [address] [place] [address] PCP - General Internal Medicine 12/17/19 documented as of this encounter
--- OUTSIDE RECORDS SUMMARY | 2023-08-24 19:42 | External Medical Summary | Summary of Care ---
Author Name Unknown Organization [facility] Address [address] [place] [address] Phone [phone] Care Team Providers Care Rn Rehab Name Role Phone Charity Reed MD Primary Care Provider Reason for Visit * Reason Onset Date Comments Test Results 07/03/2023 Encounter Details Date Type Department Care Team (Late st Contact Info) Description 07/03/2023 Telephone General Internal Medicine [facility] [address] [place] [address] Bina Alexander MD [address] [place] [address] Test Results Allergies Active Allergy Reactions Criticality Noted Date Comments Pollen 05/17/2021 documented as of this encounter (statuses as of 08/15/2023) Medications Medication Sig Dispensed Refills Start Date [...] morning 90 Capsule 3 06/09/19 24 Active Empagliflozin 10 MG Oral Tablet (Jardiance)Indicat ions:History of diabetic ketoacidosis,Type 2 diabetes mellitus with stage 3b chronic kidney disease, without long-term current use of insulin (HCC) Take 1 Tablet by mouth in the morning. Restart 03/22/2023. 30 Tablet 2 03/22/19 24 024 Discontinued Tamsulosin HCl 0.4 MG Oral Capsule (Flomax) Take 1 Capsule by mouth in the morning. 024 Discontinued Insulin Aspart 100 UNIT/ML Injection Solution (NovoLOG)Indicatio ns:History of diabetic ketoacidosis,Hospi noé discharge follow-up,Type 2 diabetes mellitus with stage 3b chronic kidney disease, without long-term current use of insulin (HCC) Using 5 units if sugar >300 03/26/19 24 024 Discontinued NIFEdipine ER 60 MG Oral Tablet Extended Release 24 Hour (Adalat CC)Indications:HTN , goal below 140/80 Take 1 Tablet by mouth in the morning. 90 Tablet 04/12/19 24 024 Discontinued Atorvastatin Calcium 80 MG Oral Tablet (Lipitor)Indicatio ns:Type 2 diabetes mellitus with stage 3a chronic kidney disease, with long-term current use of insulin (HCC),Ischemic cardiomyopathy Take 1 Tablet by mouth in the morning. 90 Tablet 04/12/19 24 024 Discontinued Pantoprazole Sodium 40 MG Oral Tablet Delayed Release (Protonix)Indicati ons:Gastroesophage al reflux disease with esophagitis without hemorrhage Take 1 Tablet by mouth in the morning. 90 Tablet 04/12/19 24 024 Discontinued Sodium Bicarbonate 650 MG Oral Tablet Take 1 Tablet by mouth in the morning and 1 Tablet before bedtime. 120 Tablet 11 04/13/19 24 024 Discontinued documented as of this encounter (statuses as of 08/15/2023) Active Problems Problem Noted Date Diagnosed Date [...] edema 10/08/2021 Coronary artery disease invo lving [place] coronary artery of [place] heart without angina pectoris 03/26/2020 Anemia 02/14/2020 [...] as of this encounter (statuses as of 08/15/2023) Resolved Problems Problem Noted Date Diagnosed Date [...] as of this encounter (statuses as of 08/15/2023) Immunizations Name Administration Dates Next Due COVID-19 mRNA, LNP-s, No Pre serve, 2-Dose Series ([employer] 06/24/2020,06/01/2020 Pneumococcal Conjugate Vacci ne, 20-valent ([id number]) 02/25/2022 Pneumococcal Polysaccharide PPV23 (Pneumovax) 06/21/2021,04/26/2019 Seasonal [...] we can get labs turned around 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 * Telephone Encounter - Rashaad Becca - 07/03/2023 4:04 PM EDT ----- Message [...] AM EDT Office Visit General Internal Medicine [facility] [place] [address] [place] [address] Charity Reed MD [address] [place] [address] 10/11/2023 1:00 PM EDT Office Visit General Internal Medicine [facility] [place] [address] [facility] [place] [address] Charity Reed MD [address] [facility] [place] [address] 10/24/2023 1:40 PM EDT Office Visit General Internal Medicine [facility] [address] [facility] [place] [address] Charity Reed MD [address] [place] [address] 12/20/2023 8:30 AM EDT Therapy Neuropsychology [facility] [place] [address] [place] [address] Randell Grimes, PhD [address] [place] [address] 02/19/2024 3:00 PM EST Office Visit Nephrology, [facility] [address] [place] [address] Amber Cornell MD [address] [place] [address] 05/23/2024 1:20 PM EST Office Visit Dermatology [facility] [place] [address] [facility] [place], [place] [address] Alix Rajan PA-C [address] [facility] [place] [address] 07/18/2024 3:00 PM EDT Office Visit Nephrology, [facility] [address] [facility] [place], [place] [address] Amber Cornell MD [address] [facility] [place], [place] [address] Scheduled Procedures Name Priority Associated Diagnoses Date/Ti [...] (3 - 2022- season) 2022 06/24/2020, 06/01/2020 Colonoscopy 01/05/2023 01/06/2020, [...] Other - (no specific identity) Health Care Auditing Coder (appointed verbally by patient or by statute hierarchy) Care Teams Rn Rehab Relationship Specialty Start Date End Date Charity Reed MD [address] [place] [address] PCP - General Internal Medicine 12/17/19 documented as of this encounter
--- OUTSIDE RECORDS SUMMARY | 2023-08-24 19:42 | External Medical Summary | Summary of Care ---
Author Name Unknown Organization [facility] Address [address] [place] [address] Phone [phone] Care Team Providers Care Nursing Director Name Role Phone Charity Reed MD Primary Care Provider [phone] Reason for Visit * Reason Onset Date Comments Pre Cert/Prior Auth 08/15/2023 Encounter Details Date Type Department Care Team (Late st Contact Info) Description 08/15/2023 Telephone Nephrology, [facility] Snow [address] [place] [address] Amber Cornell MD [address] [place] [address] Pre Cert/Prior Auth Allergies Active Allergy Reactions [...] lcohol use disorder, severe, dependence ([facility]) Take 1 Tablet (1 mg) by [...] long-term current use of insulin ([facility]) Take 1 Tablet by mouth in the morning and 1 Tablet in the evening. Sp left THR for fracture 11/12/22. 11/29/2022 Active Multi-Vitamins Oral Tablet Take 1 Tablet by mouth in the morning. Active Lantus SoloStar 100 UNIT/ML Subcutaneous Solution Pen-injectorIndicat ions:Hypoglycemia,H ospital discharge follow-up,Type 2 diabetes mellitus with stage 3b chronic kidney disease, without long-term current use of insulin ([facility]),Labile blood glucose INJECT 16 UNITS SUBCUTANEOUSLY ONCE DAILY 6 mL 03/24/2023 Active Vitamin D3/PCB 4000 UNITS Oral Capsule ([facility]UD[facility]) Take 1 Capsule by mouth in the morning. Active DULoxetine HCl 30 MG Oral Capsule Delayed Release Particles (Cymbalta)Indicatio ns:Type 2 diabetes mellitus with stage 3a chronic kidney disease, with long-term current use of insulin ([facility]),History of substance abuse ([facility]),Alcohol use disorder, severe, dependence ([facility]),Polyneuropath y, unspecified Take 1 capsule by [...] long-term current use of insulin ([facility]),Ischemic cardiomyopathy TAKE 1 TABLET BY MOUTH [...] before each meal per endo at [facility] 07/21/2023 Active NIFEdipine ER Osmotic Release 90 MG Oral Tablet Extended Release 24 Hour (Procardia XL)Indications:HTN, goal below 130/80,CKD (chronic kidney disease) stage 5, GFR less than 15 ml/min ([facility]) Take 1 Tablet by mouth every [...] edema 10/08/2021 Coronary artery disease invo lving [place] coronary artery of [place] heart without angina pectoris 03/26/2020 Anemia 02/14/2020 [...] (Pfizer) 06/24/2020,06/01/2020 Pneumococcal Conjugate Vacci ne, 20-valent ([id number]) 02/25/2022 Pneumococcal Polysaccharide PPV23 (Pneumovax) 06/21/2021,04/26/2019 Seasonal [...] encounter Miscellaneous Notes * Telephone Encounter - Vilma Martinez CPhT - 08/16/2023 11:04 AM EDT Patients insurance would like to inform the office that Sodium Zirconium Cyclosilicate 5 GM Oral Packet (Lokelma) is denied because do not see documentation of recent potassium levels. They will faxthis info to the office, please review and resubmit if appropriate. Thank you, Dolly Martinez [place] [employer] [facility] Pharm[facility] (Formerly Telepharmacy) 08/16/2023,11:04 AM * Telephone Encounter - Felisha Alfred RN - 08/15/2023 4:01 PM EDT Prior auth submitted through Cover [facility] med[facility] * Telephone Encounter - Felisha Alfred RN - 08/15/2023 11:07 AM EDT Nephrology Medicine Pre-Cert Request Medication/Disease State Information: Medication: Loukelma Diagnosis (including ICD-10): E87.5 Medication(s) Tried/Failed/Contraindicated: NA See corresponding visit note(s) for additional supporting clinical information. Office Information: Prescriber: Dr Amber Cornell documented in this encounter Plan of Treatment Upcoming Encounters Date Type Department Care Team (Late st Contact Info) Description 08/18/2023 9:00 AM EDT Office Visit General Internal Medicine [address] [address] Charity Reed MD [address] [place] [address] 10/11/2023 1:00 PM EDT Office Visit General Internal Medicine [facility] [address] [place] [address] Charity Reed MD [address] [place], [place] [address] 10/24/2023 1:40 PM EDT Office Visit General Internal Medicine [facility] [address] [place], [place] [address] Charity Reed MD 200 [facility] [place] [address] 12/20/2023 8:30 AM EDT Therapy Neuropsychology [facility] [address] [place] [address] Randell Grimes, PhD 200 [facility] [place] [address] 02/19/2024 3:00 PM EST Office Visit Nephrology, [facility] [address] [facility] [place] [address] Amber Cornell MD 200 [facility] [place], [place] [address] 05/23/2024 1:20 PM EST Office Visit Dermatology [facility] [address] [place], [place] [address] Alix Rajan PA-C 200 [facility] [place] [id number] 07/18/2024 3:00 PM EDT Office Visit Nephrology, [facility] [address] [place], [place] [address] Amber Cornell MD 200 [facility] [place], [place] [address] Scheduled Procedures Name Priority Associated Diagnoses Date/Ti me COLONOSCOPY FLEXIBLE PROXIMAL DIAGNOSTIC Recall History of colon polyps Health Maintenance Due Date Last Done Comments HIV Screening 06/17/1979 Alpha-1 Antitrypsin 1982 Cologuard 2009 Fecal Occult Blood Test 2009 Sigmoidoscopy 2009 DISCUSS TOBACCO CESSATION (REFER TO SMARTSET #8102) 05/01/2016 05/01/2015 (Discussed) Diabetic Eye Exam 04/26/2020 04/26/2019, 08/18/2017 Diabetic Foot Exam 12/23/2021 12/23/2020, 1 03/31/2019, 04/26/2019, Additional history exists COVID-19 Vaccine (3 - 2022-24 season) 2022 06/24/2020, 06/01/2020 Colonoscopy 01/05/2023 01/06/2020, 01/06/2020 Colorectal Cancer Screening 01/05/2023 HbA1c 12/27/2023 06/27/2023, 03/20, 08/22/2022, Additional history exists GFR 02/10/2024 08/10/2023, 050 05/2023, 07/11/2023, Additional history exists PTH 06/26/2024 [...] Other - (no specific identity) Health Care Modern Dancer (appointed verbally by patient or by statute hierarchy) Care Teams Nursing Director Relationship Specialty Start Date End Date Charity Reed MD [address] [place] [address] PCP - General Internal Medicine 12/17/19 documented as of this encounter
--- OUTSIDE RECORDS SUMMARY | 2023-08-24 19:42 | External Medical Summary | Summary of Care ---
Author Name Unknown Organization [facility] Address [address] [place] [address] Phone [phone] Care Team Providers Care Hose Mender Name Role Phone Charity Reed MD Primary Care Provider [phone] Reason for Visit * Reason Onset Date Comments Pre Cert/Prior Auth 08/15/2023 Encounter Details Date Type Department Care Team (Late st Contact Info) Description 08/15/2023 Telephone Nephrology, [facility] Snow [address] [place] [address] Amber Cornell MD [address] [place] [address] Pre Cert/Prior Auth Allergies Active Allergy Reactions [...] Oral TabletIndications:A lcohol use disorder, severe, dependence ([facility]) Take 1 Tablet (1 mg) [...] disease, with long-term current use of insulin ([facility]) Take 1 Tablet by mouth in the morning and 1 Tablet in the evening. Sp left THR for fracture 11/12/22. 3 Active Multi-Vitamins Oral Tablet Take 1 Tablet by mouth in the morning. Active Lantus SoloStar 100 UNIT/ML Subcutaneous Solution Pen-injectorIndicat ions:Hypoglycemia,H ospital discharge follow-up,Type 2 diabetes mellitus with stage 3b chronic kidney disease, without long-term current use of insulin ([facility]),Labile blood glucose INJECT 16 UNITS SUBCUTANEOUSLY ONCE DAILY 6 mL 4 Active Vitamin D3/PCB 4000 UNITS Oral Capsule (STUDY MED) Take 1 Capsule by mouth in the morning. Active DULoxetine HCl 30 MG Oral Capsule Delayed Release Particles (Cymbalta)Indicatio ns:Type 2 diabetes mellitus with stage 3a chronic kidney disease, with long-term current use of insulin ([facility]),History of substance abuse ([facility]),Alcohol use disorder, severe, dependence (HCC),Polyneuropath [...] disease, with long-term current use of insulin ([facility]),Ischemic cardiomyopathy TAKE 1 TABLET BY [...] min before each meal per endo at [facility] 4 Active NIFEdipine ER Osmotic Release 90 MG Oral Tablet Extended Release 24 Hour (Procardia XL)Indications:HTN, goal below 130/80,CKD (chronic kidney disease) stage 5, GFR less than 15 ml/min ([facility]) Take 1 Tablet by mouth [...] edema 10/08/2021 Coronary artery disease invo lving [place] coronary artery of [place] heart without angina pectoris 03/26/2020 Anemia 02/14/2020 [...] (Pfizer) 06/24/2020,06/01/2020 Pneumococcal Conjugate Vacci ne, 20-valent ([id number]) 02/25/2022 Pneumococcal Polysaccharide PPV23 (Pneumovax) 06/21/2021,04/26/2019 Seasonal [...] resubmit if appropriate. Thank you, Dolly Martinez [place] [employer] [facility] (Formerly Telepharmacy) 08/16/2023,11:04 AM * Telephone Encounter - Felisha Alfred RN - 08/15/2023 4:01 PM EDT Prior auth submitted through Cover My meds as submitted from [facility]. * Telephone Encounter - Felisha Alfred RN - 08/15/2023 11:07 AM EDT Nephrology Medicine Pre-Cert Request Medication/Disease State Information: Medication: [place] Diagnosis (including ICD-10): E87.5 Medication(s) Tried/Failed/Contraindicated: NA See corresponding visit note(s) for additional supporting clinical information. Office Information: Prescriber: Dr Amber Cornell documented in this encounter Plan of Treatment Upcoming Encounters Date Type Department Care Team (Late st Contact Info) Description 08/18/2023 9:00 AM EDT Office Visit General Internal Medicine [facility] [address] [place] [address] Charity Reed MD [address] [place], [place] [address] 10/11/2023 1:00 PM EDT Office Visit General Internal Medicine [facility] [address] [place] [address] Charity Reed MD [address] [place], [place] [address] 10/24/2023 1:40 PM EDT Office Visit General Internal Medicine [facility] [address] [place] [address] Charity Reed MD [address] [place] [address] 12/20/2023 8:30 AM EDT Therapy Neuropsychology [facility] [address] [place] [address] Randell Grimes, PhD [address] [place] [address] 02/19/2024 3:00 PM EST Office Visit Nephrology, [facility] [address] [facility] [place], [place] [address] Amber Cornell MD [address] [facility] [place], [place] [address] 05/23/2024 1:20 PM EST Office Visit Dermatology [facility] [place] [address] [place] [address] Alix Rajan PA-C [address] [facility] [place] [address] 07/18/2024 3:00 PM EDT Office Visit Nephrology, [facility] [address] [place] [address] Amber Cornell MD [address] [facility] [place] [address] Scheduled Procedures Name Priority Associated Diagnoses Date/Ti [...] Other - (no specific identity) Health Care Beauty Therapist (appointed verbally by patient or by statute hierarchy) Care Teams Hose Mender Relationship Specialty Start Date End Date Charity Reed MD [address] [place] [address] PCP - General Internal Medicine 12/17/19 documented as of this encounter
--- OUTSIDE RECORDS SUMMARY | 2023-08-24 19:42 | External Medical Summary | Summary of Care ---
Author Name Unknown Organization [facility] Address [address] [place] [address] Phone [phone] Care Team Providers Care Cement Boat And Barge Loader Name Role Phone Charity Reed MD Primary Care Provider [phone] Reason for Visit * Reason Onset Date Comments Pre Cert/Prior Auth 08/15/2023 Encounter Details Date Type Department Care Team (Late st Contact Info) Description 08/15/2023 Telephone Nephrology, [facility] [address] [place] [address] Amber Cornell MD [address] [place] [address] Pre Cert/Prior Auth Allergies Active Allergy Reactions [...] lcohol use disorder, severe, dependence ([facility]) Take 1 Tablet (1 mg) [...] long-term current use of insulin ([facility]) Take 1 Tablet by mouth [...] long-term current use of insulin ([facility]),Labile blood glucose INJECT 16 UNITS SUBCUTANEOUSLY ONCE DAILY 6 mL 03/24/2023 Active Vitamin D3/PCB 4000 UNITS Oral Capsule (STUDY MED) Take 1 Capsule by mouth in the morning. Active DULoxetine HCl 30 MG Oral Capsule Delayed Release Particles (Cymbalta)Indicatio ns:Type 2 diabetes mellitus with stage 3a chronic kidney disease, with long-term current use of insulin ([facility]),History of substance abuse ([facility]),Alcohol use disorder, severe, dependence ([facility]),Polyneuropath y, unspecified Take 1 capsule [...] long-term current use of insulin ([facility]),Ischemic cardiomyopathy TAKE 1 TABLET BY [...] min before each meal per endo at [facility] 07/21/2023 Active NIFEdipine ER Osmotic Release 90 MG Oral Tablet Extended Release 24 Hour (Procardia XL)Indications:HTN, goal below 130/80,CKD (chronic kidney disease) stage 5, GFR less than 15 ml/min ([facility]) Take 1 Tablet by mouth [...] edema 10/08/2021 Coronary artery disease invo lving [place] coronary artery of [place] heart without angina pectoris 03/26/2020 Anemia 02/14/2020 [...] (Pfizer) 06/24/2020,06/01/2020 Pneumococcal Conjugate Vacci ne, 20-valent ([id number]) 02/25/2022 Pneumococcal Polysaccharide PPV23 (Pneumovax) 06/21/2021,04/26/2019 Seasonal [...] through Cover My meds as submitted from [facility]. * Telephone Encounter - Felisha Alfred RN - 08/15/2023 11:07 AM EDT Nephrology Medicine Pre-Cert Request Medication/Disease State Information: Medication: [facility] Diagnosis (including ICD-10): E87.5 Medication(s) Tried/Failed/Contraindicated: NA See corresponding visit note(s) for additional supporting clinical information. Office Information: Prescriber: Dr Amber Cornell documented in this encounter Plan of Treatment Upcoming Encounters Date Type Department Care Team (Late st Contact Info) Description 08/18/2023 9:00 AM EDT Office Visit General Internal Medicine [facility] [address] [place] [address] Charity Reed MD [address] [place] [address] 10/11/2023 1:00 PM EDT Office Visit General Internal Medicine [facility] [place] [address] [place] [address] Charity Reed MD [address] [place] [address] 10/24/2023 1:40 PM EDT Office Visit General Internal Medicine [facility] [place] [address] [place] [address] Charity Reed MD [address] [place] [address] 12/20/2023 8:30 AM EDT Therapy Neuropsychology [facility] [address] [place] [address] Randell Grimes, PhD 200 [facility] [place] [address] 02/19/2024 3:00 PM EST Office Visit Nephrology, [facility] [address] [place] [address] Amber Cornell MD 200 [facility] [place] [address] 05/23/2024 1:20 PM EST Office Visit Dermatology [facility] 200 [facility] [place] [address] Alix Rajan PA-C 200 [facility] [place] [address] 07/18/2024 3:00 PM EDT Office Visit Nephrology, [facility] [address] [facility] [place] [address] Amber Cornell MD 200 [facility] [place] [address] Scheduled Procedures Name Priority Associated Diagnoses Date/Ti [...] 03/14/2023, Additional history exists Phosphate 07/20/2024 07/21/2023, 0 11/2023, 04/07/2023, Additional history exists Nephrology Referral [...] Other - (no specific identity) Health Care Nip Wrapper (appointed verbally by patient or by statute hierarchy) Care Teams Cement Boat And Barge Loader Relationship Specialty Start Date End Date Charity Reed MD [address] [place] [address] PCP - General Internal Medicine 12/17/19 documented as of this encounter
--- OUTSIDE RECORDS SUMMARY | 2023-08-24 19:42 | External Medical Summary | Summary of Care ---
Author Name Unknown Organization [facility] Address [address] [place] [address] Phone [phone] Care Team Providers Care Incoming Freight Clerk Name Role Phone Charity Reed MD Primary Care Provider [phone] Reason for Visit * Reason Onset Date Comments Pre Cert/Prior Auth 08/15/2023 Encounter Details Date Type Department Care Team (Late st Contact Info) Description 08/15/2023 Telephone Nephrology, [facility] Snow [address] [place] [address] Amber Cornell MD [address] [place] [address] Pre Cert/Prior Auth Allergies Active Allergy Reactions [...] Oral TabletIndications:A lcohol use disorder, severe, dependence ([facility]) Take 1 Tablet (1 mg) by mouth [...] disease, with long-term current use of insulin ([facility]) Take 1 Tablet by mouth in the morning and 1 Tablet in the evening. Sp left THR for fracture 11/12/22. 11/29/2022 Active Multi-Vitamins Oral Tablet Take 1 Tablet by mouth in the morning. Active Lantus SoloStar 100 UNIT/ML Subcutaneous Solution Pen-injectorIndicat ions:Hypoglycemia,H ospital discharge follow-up,Type 2 diabetes mellitus with stage 3b chronic kidney disease, without long-term current use of insulin ([facility]),Labile blood glucose INJECT 16 UNITS SUBCUTANEOUSLY ONCE DAILY 6 mL 03/24/2023 Active Vitamin D3/PCB 4000 UNITS Oral Capsule (STUDY MED) Take 1 Capsule by mouth in the morning. Active DULoxetine HCl 30 MG Oral Capsule Delayed Release Particles (Cymbalta)Indicatio ns:Type 2 diabetes mellitus with stage 3a chronic kidney disease, with long-term current use of insulin ([facility]),History of substance abuse ([facility]),Alcohol use disorder, severe, dependence ([facility]),Polyneuropath y, unspecified Take 1 capsule by mouth [...] disease, with long-term current use of insulin ([facility]),Ischemic cardiomyopathy TAKE 1 TABLET BY MOUTH IN [...] before each meal per endo at [facility] 07/21/2023 Active NIFEdipine ER Osmotic Release 90 MG Oral Tablet Extended Release 24 Hour (Procardia XL)Indications:HTN, goal below 130/80,CKD (chronic kidney disease) stage 5, GFR less than 15 ml/min ([facility]) Take 1 Tablet by mouth every evening. [...] edema 10/08/2021 Coronary artery disease invo lving [place] coronary artery of [place] heart without angina pectoris 03/26/2020 Anemia 02/14/2020 [...] (Pfizer) 06/24/2020,06/01/2020 Pneumococcal Conjugate Vacci ne, 20-valent ([id number]) 02/25/2022 Pneumococcal Polysaccharide PPV23 (Pneumovax) 06/21/2021,04/26/2019 Seasonal [...] resubmit if appropriate. Thank you, Dolly Martinez Java Web Application Developer [facility]) 08/16/2023,11:04 AM * Telephone Encounter - Felisha Alfred RN - 08/15/2023 4:01 PM EDT Prior auth submitted through Cover [facility] * Telephone Encounter - Felisha Alfred [...] Office Visit General Internal Medicine [facility] [place] [address] Charity Reed MD [address] [place] [address] 10/11/2023 1:00 PM EDT Office Visit General Internal Medicine [facility] [address] [place] [address] Charity Reed MD [address] [place] [address] 10/24/2023 1:40 PM EDT Office Visit General Internal Medicine [facility] [address] [place] [address] Charity Reed MD [address] [place] [address] 12/20/2023 8:30 AM EDT Therapy Neuropsychology [facility] [address] [place] [address] Randell Grimes, PhD [address] [place] [address] 02/19/2024 3:00 PM EST Office Visit Nephrology, [facility] [address] [place] [address] Amber Cornell MD [address] [place] [place] [address] 05/23/2024 1:20 PM EST Office Visit Dermatology [facility] [address] [place] [address] Alix Rajan PA-C [address] [facility] [address] 07/18/2024 3:00 PM EDT Office Visit Nephrology, [facility] [address] [place] [address] Amber Cornell MD [address] [place] [address] Scheduled Procedures Name Priority Associated Diagnoses Date/Ti me COLONOSCOPY FLEXIBLE PROXIMAL DIAGNOSTIC Recall History of colon polyps Health Maintenance Due Date Last Done Comments HIV Screening 06/17/1979 Alpha-1 Antitrypsin 1982 Cologuard 2009 Fecal Occult Blood Test 2009 Sigmoidoscopy 2009 DISCUSS TOBACCO CESSATION (REFER TO SMARTSET #3031) 05/01/2016 05/01/2015 (Discussed) Diabetic Eye Exam 04/26/2020 [...] Other - (no specific identity) Health Care Toll Collector (appointed verbally by patient or by statute hierarchy) Care Teams Incoming Freight Clerk Relationship Specialty Start Date End Date Charity Reed MD [address] [place] [address] PCP - General Internal Medicine 12/17/19 documented as of this encounter
[2023-08-24] MEDS: NIFEdipine EXTENDED REL 30 MG TABCR PO SCH (21:33)
[2023-08-24] MEDS: MELATONIN 3 MG TAB PO PRN (23:17)
[2023-08-25 07:19] LABS: Hematocrit (blood only) 26.5 % (42.0-52.0); Hemoglobin 8.9 g/dl (14.0-18.0); Mean Corpuscular Hemoglobin 28.7 pg (25.0-34.0); Mean Corpuscular Hgb Conc 33.6 g/dL (32.0-36.0); Mean Corpuscular Volume 85.5 fL (80.0-100.0); Mean Platelet Volume 10.5 fL (9.4-12.4); Platelet Count 204 K/uL (130-400); RDW Coefficient of Variation 13.2 % (11.5-14.5); RDW Standard Deviation 41.1 fL (36.4-46.3); White Blood Count 6.79 K/ul (4.8-10.8)
[2023-08-25 07:45] LABS: Creatinine Clr Calc Pharmacy 15.9 ml/min; Est GFR (African American) 11.5 ml/min; Magnesium 2.2 mg/dl (1.7-2.4); Phosphorus 5.9 mg/dl (2.5-4.9); Potassium 3.9 mmol/L (3.5-5.1)
--- NOTE | 2023-08-25 09:46 | Nephrology Progress Note ---
Date of Service August 25, 2023 Assessment & Plan Admission and Anticipated Discharge Date Admission Date: August 24, 2023 Subjective Assessment & Plan (1) ONDINA (acute kidney injury): Some rise in creat from recent level. Could have some volume depletion. will hold torsemide for today and stop iv fluid now. This is mainly CKD progressing to ESRD . No dialysis today but cannot rule out. will assess daily. K and other lytes are normal. Continue Sodium Bicarb tab and lokelma. restart torsemide 40 daily from Monday--inpt or outpt. hgb is low from anemia of CKD. will give ferrlecit iv and also epogen 01142 units. he will need Anemia clinic f/u. hard to do with him. (2) CKD (chronic kidney disease) stage 5, GFR less than 15 ml/min: S/p AVF and is getting ready for Dialysis in near future. CKD 5 from DM (3) Hypoglycemia: patients with CKD 5 and end stage diabetics are very prone to hypoglycemia. The sad reality is having good DM control at this late stage unfortunately makes really no difference. He already has all the complications. very liberal control of DM as risk of Hypoglycemic coma is very high. S--No new issues. No low glucose. eating fine now. Physical Exam Constitutional: well developed, well nourished, + frail appearing and cooperative; no acute distress Eyes: EOM intact bilaterally ENMT: Ears: no external ear abnormality Nose: no external nose abnormality Mouth: + dry oral mucous membranes Neck: Supple. Respiratory: normal respiratory effort Auscultation: + diminished lung sounds Cardiovascular: Rate/Rhythm: regular rate and regular rhythm Extremities: + AV fistula (+ t/b L AC); no edema Gastrointestinal (Abdomen): Inspection/Auscultation: normal bowel sounds Percussion/Palpation: abdomen soft; abdomen nontender Musculoskeletal: Extremities: strength 5/5 throughout Skin: no rashes, warm and dry Neurologic: Awake and alert. Psychiatric: Orientation: alert, oriented to person, oriented to place and cooperative Results & Data Vital Signs (Past 12 Hours) Vital Signs Temp Pulse Pulse Resp BP Pulse Ox O2 Del Method 08/25/23 08:30 36.9 C 66 18 129/76 97 Room Air 08/25/23 07:37 Room Air 08/25/23 07:21 64 08/25/23 04:00 08/25/23 02:37 36.5 C 60 18 116/69 97 Room Air 08/24/23 23:08 36.5 C 63 18 123/70 93 Room Air 08/24/23 22:03 67 O2 Del Method 08/25/23 08:30 08/25/23 07:37 08/25/23 07:21 08/25/23 04:00 Room Air 08/25/23 02:37 08/24/23 23:08 08/24/23 22:03
[2023-08-25] MEDS: SODIUM FERRIC GLUCONATE 125 MG in 0.9 % SODIUM CHLORIDE 100 ML IV SCH (11:11)
[2023-08-25] MEDS: EPOETIN ALFA 20,000 UNITS/ML VIAL SQ ONE (11:11)
--- NOTE | 2023-08-25 14:40 | Discharge Summary ---
Date of Service August 25, 2023 Admission HPI Per Admitting Provider History obtained from patient and records. Limited history from patient secondary to confusion. Medical history significant for chronic diastolic heart failure secondary to ischemic cardiomyopathy (EF 55-59 %, TTE 2021), CAD status post stent, hypertension, hyperlipidemia, COPD as per records, CATALINO/CPAP non-compliance, DM 2 insulin requiring, CKD (4s), anxiety/mood disorder, chronic anemia (baseline hemoglobin 9-10), history alcohol withdrawal seizures, medication noncompliance, substance abuse as per records, past alcohol use, ongoing tobacco abuse Monthly admissions in the last 2 months. Recent confinement 2 weeks ago for hyperkalemia in the setting of CKD/ESRD. Patient discharged on torsemide and Lokelma Rx. Patient noted to be disoriented at home when per family past by to pick him up for dinner. EMS called to patient's home. Blood sugar noted to be 44, temperature noted to be 33 degrees Celsius. D10 water administered by EMS. Patient more awake upon arrival at the ER. He took Premeal subcutaneous insulin supposedly to be taken right before dinner while waiting for family to pick him up to go to a restaurant. Denies headache, chest pain, SOB, abdominal pain. IV ceftriaxone administered at the ER. Medical Historyas above Surgical History : Vascular procedures, hip surgery Family History : Heart disease, diabetes Personal/Social history : 1/2 pack daily, past alcohol abuse, currently unemployed Admission Exam Per Admitting Provider GENERAL: obese, comfortable, pleasant, no respiratory distress SKIN: Pallor, cool HEENT: Pale palpebral conjunctivae, no ptosis, dry buccal mucosa NECK : Supple, short neck, no tenderness CHEST : Decreased breath sounds, occasional expiratory wheezes, no tenderness HEART : RRR, systolic murmur ABDOMEN: Some distention, nontender EXTREMITIES : Minimal LE swelling, no LE tenderness NEUROLOGIC : Coherent, no facial asymmetry, gait and stance not assessed Principal Diagnosis Encephalopathy, hypoglycemia secondary to incorrect insulin use Discharge Exam GENERAL: obese, comfortable M in NAD HEENT: Pale palpebral conjunctivae, no ptosis NECK : Supple CHEST : Decreased breath sounds HEART : RRR, systolic murmur ABDOMEN: Some distention, nontender, soft EXTREMITIES : Minimal LE swelling, no LE tenderness, moves extremities NEUROLOGIC : Coherent, no facial asymmetry, speech fluent, answers appropriate ly, moves extremities SKIN: Pale, warm, dry Discharge Data Allergies Allergy/AdvReac Type Severity Reaction Status Date / Time pollen extracts Allergy Intermediate SNEEZING, Verified 08/23/23 21:28 CONGESTION Consultations 08/23/23 23:29 ED Decision to Admit Stat 08/24/23 04:19 Consult Nephrology Routine Ordered Studies 08/23/23 23:51 CT head/brain wo con Stat FINDINGS: Brain: The left mastoid air cells are well-aerated. No intracranial hemorrhage. No significant mass effect. No evidence for cortical infarct. Similar mild prominence of the cerebral sulci and fissures. Ventricles: No midline shift or ventriculomegaly. Bones/joints: Unremarkable. No acute fracture. Soft tissues: Unremarkable. Sinuses: Unremarkable as visualized. No acute sinusitis. Mastoid air cells: Right mastoid effusions appear slightly more extensive. IMPRESSION: 1. No acute intracranial process or significant alteration from the prior examination. 2. Right mastoid effusions appear slightly more extensive; the clinical significance of this finding is indeterminant. Mastoiditis is a clinical diagnosis. No significant overlying soft tissue abnormality. Hospital Course (1) Encephalopathy: Secondary to hypoglycemia Patient took Premeal suppertime insulin while waiting for family to pick him up for dinner. Secondary to hypoglycemia Inadvertent intake of Premeal insulin without immediate access to food Patient counseled regarding dangers of taking Premeal short-acting insulin without immediate access to food. DM 2 insulin requiring, reasonable control as of recent hemoglobin A1c of 7.4 last month. ARF on CKD contributory to decrease insulin clearance resulting in hypoglycemia Monitor creatinine response to IVF, hold home diuretic for now UA negative Nephrology consult Re: ARF on CKD Discussed w/ nephrology - resume torsemide on Monday - pt can be discharged Chronic anemia, hemoglobin at baseline - received epo and IV iron today per nephrology Hypothermia secondary to hypoglycemia Patient not septic Chronic conditions: chronic diastolic heart failure secondary to ischemic cardiomyopathy (EF 55-59 %, TTE 2021), patient euvolemic to dry hx CAD status post stent hypertension, stable hyperlipidemia, on statin Rx COPD as per records, CATALINO/CPAP non-compliance, chronic smoker's cough symptoms anxiety/mood disorder, at baseline substance abuse as per records past alcohol use ongoing tobacco abuse, Nicotine patch as needed Possible functional disability given recurrent admissions Total Time Total Time Spent Total Time Spent (In Minutes): 40 Discharge Plan Discharge Items Patient Disposition: Home - Self-Care Reason For Visit: AMS Discharge Diagnosis: Encephalopathy, hypoglycemia secondary to incorrect insulin use Activity: Per Instructions section Non-emergency contact: Primary Care Provider and Senior Environmental Technician Call non-emergency contact if: you have any medication questions and your symptoms worsen Follow-up/Referrals: Amber Cornell MD, PhD [Physician] - (Date & Time 08/29/2023 11:40 AM Provider Amber Cornell MD Department Nephrology, [facility] ) Charity Reed MD [Primary Care Provider] - (Date & Time 08/30/2023 10:40 AM Provider Charity Reed MD Department General Internal Medicine [facility] ) Diet: Carb Consistent or DM2 and Dialysis Renal Addtl Attending Provider Instructions: Follow up with your primary care doctor and pst specialist. Resume taking torsemide on Monday. Otherwise take all your medications as prescribed. Make sure to take your insulin properly, with food. Pending Studies at Discharge: Yes Studies:: final blood cultx results Stand-Alone Forms: My [facility] [employer], Smoking Cessation Medications and DC Order Prescriptions: Continued Alive Men's 50 Plus Multivit 120 mcg-150 mcg -50 mg tablet,chewable 1 tab PO QAM pantoprazole 40 mg tablet,delayed release (DR/EC) 40 mg PO QAM duloxetine [Cymbalta] 30 mg capsule,delayed release(DR/EC) 30 mg PO QAM insulin lispro [Humalog KwikPen Insulin] 100 unit/mL insulin pen 5 unit subcut TID Qty: 15 3RF Rx Instructions: Inject 5 units into the abdomen 10-15 minutes prior to meals. cholecalciferol (vitamin D3) 50 mcg (2,000 unit) capsule 100 mcg PO DAILY atorvastatin 80 mg tablet 80 mg PO QAM aspirin 81 mg tablet,delayed release (DR/EC) 81 mg PO BID Qty: 60 0RF desloratadine [Clarinex] 5 mg tablet 5 mg PO QAM folic acid 1 mg Tablet 1 mg PO QAM thiamine HCl (vitamin B1) 100 mg Tablet 100 mg PO QAM Qty: 30 0RF hydralazine 25 mg Tablet 25 mg PO BID Qty: 60 0RF magnesium oxide 400 mg (241.3 mg magnesium) Tablet 400 mg PO QAM Qty: 10 0RF carvedilol 25 mg tablet 25 mg PO BID Rx Instructions: PER EXT MED HX. sodium bicarbonate 650 mg tablet 650 mg PO BID Lokelma 10 gram Powder In Packet 10 g PO DAILY Qty: 30 0RF insulin glargine [Lantus Solostar U-100 Insulin] 100 unit/mL (3 mL) insulin pen 16 unit subcut QAM Rx Instructions: Inject 16 units into the abdomen once a day. oxycodone-acetaminophen [Percocet] 5-325 mg tablet 1 tab PO Q6H PRN (Reason: pain) Qty: 14 0RF acetaminophen [Tylenol] 325 mg Tablet 650 mg PO DIRECTED PRN (Reason: PAIN/FEVER) loperamide [Imodium] 2 mg Capsule 2 mg PO DIRECTED PRN (Reason: Diarrhea) nifedipine 90 mg tablet extended release 24hr 90 mg PO QPM Held torsemide 20 mg tablet 60 mg PO QAM Hold Instructions: Resume on 08/27/23. Resume on August 27, 2023. Discharge Orders: Discharge Order (Routine); Ordered 08/25/23 Ordered By: Germain Munoz Admission Data Admit Date/Time: 08/24/23 18:15 Attending Provider: Germain Munoz Admit Provider: Mirza Moreno Primary Care Provider: Charity Reed Other Providers: Mirza Moreno; Amber Cornell; Ba Alexander; Jv Brown; Mahin Steinberg; Kim Garcia; [facility]
--- NOTE | 2023-08-26 06:01 | Electrocardiogram Report ---
Test Reason : Blood Pressure : / mmHG Vent. Rate : 052 BPM Atrial Rate : 052 BPM P-R Int : 184 ms QRS Dur : 120 ms QT Int : 516 ms P-R-T Axes : 045 -03 060 degrees QTc Int : 479 ms Sinus bradycardia Non-specific intra-ventricular conduction delay Borderline ECG When compared with ECG of 12-AUG-2023 05:22, No significant change was found Confirmed by Dandre Lea ([id number]) on 08/26/2023 6:01:10 AM Referred By: REFERRED SELF Confirmed By:Dandre Lea
--- NOTE | 2023-08-27 14:48 | Coding Query ---
CODING QUERY To promote full compliance with coding requirements relating to patient care, provider participation is requested in all cases of medical records specialist uncertainty. Please assist us with the question(s) below: Coding Question(s): Metabolic encephalopathy Other explanation of clinical findings Unable to determine (no explanation for clinical findings) The medical record reflects the following clinical evidence: Clinical Indicators: H&P notes: "Encephalopathy: Plan: Secondary to hypoglycemia Patient took Premeal suppertime insulin while waiting for family to pick him up for dinner. Secondary to hypoglycemia Inadvertent intake of Premeal insulin without immediate access to food ARF on CKD contributory to decrease insulin clearance resulting in hypoglycemia" Risk Factor(s): Hypoglycemia, ONDINA Treatment: Telemetry, insulin education, UA, serial chemistries, nephrology consult. Please clarify and document your clinical opinion in the progress notes and discharge summary including the definitive and/or presumptive diagnosis, (suspected or probable), related to the above clinical findings. Please include clinical findings supporting your diagnosis. Physician's Response(s): Thank you Tamara Long Principal Diagnosis: "that condition established after study, to be chiefly responsible for occasioning the admission of the patient to the hospital for care." Co-Existing Principal Diagnosis: "when two or more diagnoses equally meet the criteria for principal diagnosis as determined by the circumstances of admission, diagnostic work up, and/or therapy provided, and the Alphabetic Index, Tabular List, or another coding guideline does not provide sequencing direction, any one of the diagnoses may be sequenced first." "When the physician has documented what appears to be a current diagnosis in the body of the record, but has not included the diagnosis in the final diagnostic statement, the physician should be asked whether the diagnosis should be added." (Source Coding Clinic 2 QTR90. p3-4) REGAN
== END 2023-08-25 17:48 | disposition home health service (06) | DRG 917 ==
LOC: EDINP 18:14 → ED 18:14 → EDINP 08-24 01:26 → 2W 08-24 14:50

== ENCOUNTER 2024-09-13 05:59 | Observation (INO) ==
[2024-09-13 06:50] LABS: Basophils # (auto) 0.06 K/uL (0.00-0.20); Basophils % (auto) 0.9 %; Eosinophils # (auto) 0.17 K/uL (0.00-0.50); Eosinophils % (auto) 2.5 %; Hematocrit (blood only) 33.2 % (42.0-52.0); Hemoglobin 10.8 g/dl (14.0-18.0); Immature Granulocytes # (auto) 0.01 K/uL (0.01-0.20); Immature Granulocytes % (auto) 0.1 %; Lymphocytes # (auto) 2.83 K/uL (1.20-3.40); Lymphocytes % (auto) 41.3 %; Mean Corpuscular Hemoglobin 30.5 pg (25.0-34.0); Mean Corpuscular Hgb Conc 32.5 g/dL (32.0-36.0); Mean Corpuscular Volume 93.8 fL (80.0-100.0); Mean Platelet Volume 10.2 fL (9.4-12.4); Monocytes # (auto) 0.69 K/uL (0.11-0.59); Monocytes % (auto) 10.1 %; Neutrophils # (auto) 3.09 K/uL (1.40-6.50); Neutrophils % (auto) 45.1 %; Platelet Count 162 K/uL (130-400); RDW Coefficient of Variation 12.9 % (11.5-14.5); RDW Standard Deviation 44.4 fL (36.4-46.3); Red Blood Count 3.54 M/uL (4.70-6.10); White Blood Count 6.85 K/ul (4.8-10.8)
--- NOTE | 2024-09-13 07:13 | Emergency Department Note ---
Impression & Plan ESRD on hemodialysis, Arrhythmia ED Provider Note Provider: Reid Mullen MD CHIEF COMPLAINT: Bradycardia HISTORY OF PRESENT ILLNESS: Patient is a 59-year-old gentleman significant past medical history of type 2 diabetes, ESRD on Monday dialysis, hypertension, liver cirrhosis, and CHF presenting here today referred from [facility] outpatient dialysis. States has been compliant with dialysis and did not have issues on Monday or Monday this week. Went there today early in the morning as his schedule and they noted his heart rate to be low. He did not even start dialysis yet but given a low heart rate reportedly in the 30s they sent him here for further evaluation. Patient denies symptoms. Currently denies symptoms as well as a feeling a little bit tired as he had to get up before 3 AM this morning to come to dialysis. Denies recent illness or fever. Denies chest pain, palpitations, lightheadedness, near-syncope, or syncope. Patient denies significant swelling at this time. Patient does relay at 1 point he had high potassium in the past and had some low heart rates. PAST MEDICAL HISTORY: As noted above MEDICATIONS: Reviewed home medication list SOCIAL HISTORY: Lives in [place] PHYSICAL EXAM: GENERAL: alert and oriented in no acute distress on stretcher Head: normocephalic and atraumatic EYES: No injection, discharge or icterus. PERRL, EOMI. NECK: Trachea midline. ENT: Mucous membranes pink and moist. LUNGS: Airway patent. No retractions. Breath sounds clear HEART: Irregular rate and rhythm. No chest wall tenderness ABDOMEN: Soft and non-tender, without guarding or rebound. SKIN: Acyanotic, warm, dry, without rashes EXTREMITIES: Without swelling, tenderness or deformity with right forearm fistula in place with good thrill NEUROLOGICAL: No focal deficits. No aphasia. No facial droop or slurred speech. Ambulatory. EK bpm sinus rhythm with PVC. No acute ST segment elevation or depression with a QTc of 463. CONTINUOUS CARDIAC MONITORING: was ordered and showed a heart rate of 60s bpm in sinus rhythm frequent PVCs Patient's laboratory studies and imaging reviewed. Differential includes Premature contractions, electrolyte abnormality, cardiac dysrhythmia, thyroid dysfunction, pulmonary embolism, infection, gastrointestinal, as well as other pathologies. IMPRESSION/MEDICAL DECISION MAKING: Patient with frequent PVCs on telemetry/EKG. Not having significant symptoms such as lightheaded dizziness or palpitations. Seems a little fatigued but also had to get up quite early and does use melatonin or trazodone at night. Patient does report that he took about 24 mg of melatonin last evening. Does not seem encephalopathic. Does not seem fluid overloaded. Chest x-ray is obtained to exclude significant pulmonary edema but not hypoxic. [id number] blood work without severe hyperkalemia. Formal blood work is sent. Denies other infectious symptoms. Blood work here without significant leukocytosis or thrombocytopenia. Mild anemia hemoglobin 10.8. Electrolytes returned without severe abnormalities potassium of 5.1. Creatinine elevated consistent with need for dialysis. Does not seem severely fluid overloaded at this point or an extremis. Reached out to [facility] nephrology to discuss the case. In discussion with Dr. Christie who knows the patient. Given his need for dialysis I do not feel he can wait until Monday as he did have a completed today. Some of his mild sedation may be related to the melatonin that he is taking at night. Doubt any significant overdose at this time the patient is easily arousable. In abundance of caution discussion with nephrology will have the patient observed overnight and dialysis completed today to ensure he tolerates this well. As such reached out to the [facility] hospitalist. DIAGNOSIS: Transient bradycardia, end-stage renal he is on dialysis DISPOSITION: Hospitalist will evaluate Patient was agreeable with this plan. Past Med/Surg History Problem List (Updated 09/13/24 @ 11:11 by Reid Mullen M.D.) Insulin dependent type 2 diabetes mellitus Arrhythmia (Acute) Bradycardia Diabetic peripheral neuropathy associated with type 2 diabetes mellitus ESRD on hemodialysis (Acute) Hypoglycemia unawareness associated with type 2 diabetes mellitus Hypertension associated with stage 5 chronic kidney disease due to type 2 diabetes mellitus Non-compliance (Acute) Abnormal LFTs (Acute) Generalized seizure (Acute) Alcohol use disorder, severe, dependence etoh x 40 years - 1 gallon vodka per day, rehab Dec 2022, last drank in Feb 2023 Dyslipidemia, goal LDL below 70 ASCVD (arteriosclerotic cardiovascular disease) Transaminitis Pancytopenia (Acute) CATALINO (obstructive sleep apnea) no CPAP Proteinuria Diabetes mellitus type 2 with complications Cardiomyopathy Cirrhosis of liver Chronic pain syndrome CHF (congestive heart failure) (Acute) Anemia (Acute) Bilateral edema of lower extremity (Acute) History of cardiac catheterization (Chronic) x1, NE, ELIESER to proximal OM by Dr. Guerrero on 01/01/19, follows with [facility] cardio (unsure of name) Mood disorder (Chronic) Back pain (Chronic) Tobacco use disorder (Chronic) Neuropathy (Chronic) Type 2 diabetes mellitus (Chronic) HTN (hypertension) (Chronic) Medical History History of seizure ASCVD (arteriosclerotic cardiovascular disease) Dyslipidemia Hypertension Diabetes type 2 [address] AV fistula malfunction CKD (chronic kidney disease) stage 5, GFR less than 15 ml/min Acute renal insufficiency Lumbar contusion Contusion of elbow, left Alcohol abuse Closed fracture of left hip CHI (closed head injury) Encephalopathy Hypertensive crisis Hydrocele Acute on chronic renal insufficiency History of acute renal failure Elevated troponin I level Alcohol intoxication Bilateral cellulitis of lower leg Abnormal electrocardiogram [ECG] [EKG] Discharge planning issues CAD (coronary artery disease) Thrombocytopenia Non-ST elevation NE (NSTEMI) CKD (chronic kidney disease) stage 5, GFR less than 15 ml/min Poor historian all hx provided by sister, Kavya Banks Hx of encephalopathy DJD (degenerative joint disease) Back Chronic back pain History of COVID-19 x2, not hospitalized Hx of congestive heart failure Cirrhosis of liver History of asthma Hx of non-ST elevation myocardial infarction (NSTEMI) x 2, cath 2019 x 1 stent, follows with [facility] cardio (unsure of name, last visit > 9 months) TONEY (dyspnea on exertion) Ischemic cardiomyopathy Surgical History S/P total left hip arthroplasty Hx of wisdom tooth extraction History of total left hip replacement (~10/2022) History of lymph node biopsy Family History Other Diabetes Heart disease Hypertension Social History Smoking Status: Current some day smoker Tobacco Type: Cigarettes Cigarettes Per Day: 3-4 cigarettes/day; Second Hand Exposure: No; Do You Dip or Chew Tobacco: No; Tobacco Cessation Education Requested by Patient: No Hx Alcohol Use: No Hx Substance Use: No Preferred Language: [place] Communication Ability: Effective Director Of Psychiatry Required: No Beliefs That Will Affect Care: None marital status: Single Current Living Situation: Alone current occupational status: unemployed How many Children do You have: 2 Other Information That Helps Us Care for You: No Feels Safe at Home: Yes Safety Concerns: Feels Safe At This Time Assistive Devices: Walker Allergies Allergies Allergy/AdvReac Type Severity Reaction Status Date / Time pollen extracts Allergy Intermediate SNEEZING, Verified 09/13/24 08:45 CONGESTION Home Meds Home Medications Medication Instructions Recorded Confirmed atorvastatin 80 mg tablet 80 mg PO QAM 10/25/21 09/13/24 duloxetine 30 mg capsule,delayed 30 mg PO QAM 03/27/23 09/13/24 release (Cymbalta) desloratadine 5 mg tablet 5 mg PO QAM 07/12/23 09/13/24 (Clarinex) folic acid 1 mg tablet 1 mg PO QAM 07/12/23 09/13/24 acetaminophen 325 mg tablet 650 mg PO DIRECTED PRN 08/23/23 09/13/24 (Tylenol) PAIN/FEVER insulin lispro 100 unit/mL 10 - 15 unit subcut TID 05/14/24 09/13/24 subcutaneous pen (Humalog KwikPen (U-100) Insulin) calcium acetate 667 mg tablet 667 - 1,334 mg PO DIRECTED 08/20/24 09/13/24 aspirin 81 mg tablet,delayed 81 mg PO DAILY 09/13/24 09/13/24 release lidocaine-prilocaine 2.5 %-2.5 % 1 g topical 3XWK 09/13/24 09/13/24 topical cream metoprolol succinate 50 mg 50 mg PO QAM 09/13/24 09/13/24 tablet,extended release 24 hr midodrine 2.5 mg tablet 2.5 mg PO 3XWK 09/13/24 09/13/24 pantoprazole 20 mg tablet,delayed 20 mg PO QAM 09/13/24 09/13/24 release sodium zirconium cyclosilicate 10 10 g PO DAILY 09/13/24 09/13/24 gram oral powder packet (Lokelma) trazodone 50 mg tablet 50 mg PO HS 09/13/24 09/13/24 venlafaxine 37.5 mg 37.5 mg PO QAM 09/13/24 09/13/24 capsule,extended release 24 hr vitamin B complex-vitamin C-folic 1 tab PO DAILY 09/13/24 09/13/24 acid 0.8 mg tablet (Anjali-Ladonna) Previous Rx's Medication Instructions Recorded blood-glucose sensor (Dexcom G7 #3 ea 04/30/24 Sensor device) blood sugar diagnostic (OneTouch #100 ea 05/28/24 Verio test strips) blood-glucose meter (OneTouch #1 ea 05/28/24 Verio Flex Meter) lancets 30 gauge (OneTouch Delica #100 ea 05/28/24 Plus Lancet) insulin glargine 100 unit/mL (3 22 unit (0.22 mL) subcut QAM #30 mL 06/24/24 mL) subcutaneous pen (Lantus Solostar U-100 Insulin) Results & Data (ED) Vital Signs Vital Signs - 24 hr 09/13/24 06:00 09/13/24 06:00 09/13/24 06:07 Pulse Rate 64 64 Pulse Rate from SpO2 Sensor Pulse Rhythm Regular Pulse Strength Normal Respiratory Rate 20 Respiratory Effort / Characteristics Non-Labored Spontaneous Respiratory Depth Normal Respiratory Pattern Regular Blood Pressure 191/93 H Blood Pressure Mean 125 Blood Pressure Position Lying Pulse Oximetry 96 Oxygen Delivery Method Room Air Room Air Sepsis Recent Fever Within 48 Hours No Sepsis New/Unexplained Change in Mental Status N/A Sepsis Action Taken by Nursing No Action Required 09/13/24 06:12 09/13/24 06:15 09/13/24 06:16 Pulse Rate 63 59 L Pulse Rate from SpO2 Sensor 50 L 68 Pulse Rhythm Pulse Strength Respiratory Rate 14 12 Respiratory Effort / Characteristics Respiratory Depth Respiratory Pattern Blood Pressure 191/93 H Blood Pressure Mean 105 Blood Pressure Position Pulse Oximetry 96 96 Oxygen Delivery Method Sepsis Recent Fever Within 48 Hours Sepsis New/Unexplained Change in Mental Status Sepsis Action Taken by Nursing 09/13/24 06:16 09/13/24 06:16 09/13/24 06:24 Pulse Rate 64 Pulse Rate from SpO2 Sensor 46 L Pulse Rhythm Pulse Strength Respiratory Rate 10 L Respiratory Effort / Characteristics Respiratory Depth Respiratory Pattern Blood Pressure 191/93 H 191/93 H Blood Pressure Mean 105 105 Blood Pressure Position Pulse Oximetry 96 Oxygen Delivery Method Sepsis Recent Fever Within 48 Hours Sepsis New/Unexplained Change in Mental Status Sepsis Action Taken by Nursing 09/13/24 06:30 09/13/24 06:34 09/13/24 06:36 Pulse Rate 66 64 Pulse Rate from SpO2 Sensor 79 Pulse Rhythm Pulse Strength Respiratory Rate 9 L Respiratory Effort / Characteristics Respiratory Depth Respiratory Pattern Blood Pressure 166/102 H Blood Pressure Mean 147 Blood Pressure Position Pulse Oximetry 97 Oxygen Delivery Method Sepsis Recent Fever Within 48 Hours Sepsis New/Unexplained Change in Mental Status Sepsis Action Taken by Nursing 09/13/24 07:00 09/13/24 07:00 09/13/24 07:27 Pulse Rate 63 62 Pulse Rate from SpO2 Sensor 63 67 Pulse Rhythm Pulse Strength Respiratory Rate 12 15 Respiratory Effort / Characteristics Respiratory Depth Respiratory Pattern Blood Pressure 192/104 H Blood Pressure Mean 145 Blood Pressure Position Pulse Oximetry 95 93 Oxygen Delivery Method Sepsis Recent Fever Within 48 Hours Sepsis New/Unexplained Change in Mental Status Sepsis Action Taken by Nursing 09/13/24 07:30 09/13/24 07:42 09/13/24 08:00 Pulse Rate 64 65 Pulse Rate from SpO2 Sensor 63 63 Pulse Rhythm Pulse Strength Respiratory Rate 14 14 Respiratory Effort / Characteristics Respiratory Depth Respiratory Pattern Blood Pressure 204/113 H Blood Pressure Mean 139 Blood Pressure Position Pulse Oximetry 95 92 Oxygen Delivery Method Sepsis Recent Fever Within 48 Hours Sepsis New/Unexplained Change in Mental Status Sepsis Action Taken by Nursing 09/13/24 08:33 09/13/24 08:57 09/13/24 09:00 Pulse Rate 66 64 Pulse Rate from SpO2 Sensor 65 66 Pulse Rhythm Pulse Strength Respiratory Rate 14 11 L Respiratory Effort / Characteristics Respiratory Depth Respiratory Pattern Blood Pressure 178/89 H Blood Pressure Mean 125 Blood Pressure Position Pulse Oximetry 96 96 Oxygen Delivery Method Sepsis Recent Fever Within 48 Hours Sepsis New/Unexplained Change in Mental Status Sepsis Action Taken by Nursing 09/13/24 09:00 09/13/24 09:00 Pulse Rate Pulse Rate from SpO2 Sensor Pulse Rhythm Pulse Strength Respiratory Rate Respiratory Effort / Characteristics Respiratory Depth Respiratory Pattern Blood Pressure 178/89 H 178/89 H Blood Pressure Mean 125 125 Blood Pressure Position Pulse Oximetry Oxygen Delivery Method Sepsis Recent Fever Within 48 Hours Sepsis New/Unexplained Change in Mental Status Sepsis Action Taken by Nursing Laboratory Data 09/13/24 06:12 09/13/24 06:12 Lab Results 09/13/24 09/13/24 09/13/24 Range/Units 06:12 06:18 07:00 WBC 6.85 (4.8-10.8) K/ul RBC 3.54 L (4.70-6.10) M/uL Hgb 10.8 L (14.0-18.0) g/dl POC Hgb 10.9 L (14.0-18.0) g/dl Hct 33.2 L (42.0-52.0) % POC Hct 32 L (42-52) % MCV 93.8 (80.0-100.0) fL MCH 30.5 (25.0-34.0) pg MCHC 32.5 (32.0-36.0) g/dL RDW Std Deviation 44.4 (36.4-46.3) fL RDW Coeff of Alberto 12.9 (11.5-14.5) % Plt Count 162 (130-400) K/uL MPV 10.2 (9.4-12.4) fL Immature Gran % (Auto) 0.1 % Neut % (Auto) 45.1 % Lymph % (Auto) 41.3 % [place] % (Auto) 10.1 % Eos % (Auto) 2.5 % Baso % (Auto) 0.9 % Neut # (Auto) 3.09 (1.40-6.50) K/uL Lymph # (Auto) 2.83 (1.20-3.40) K/uL Independence # (Auto) 0.69 H (0.11-0.59) K/uL Eos # (Auto) 0.17 (0.00-0.50) K/uL Baso # (Auto) 0.06 (0.00-0.20) K/uL Immature Gran # (Auto) 0.01 (0.01-0.20) K/uL PT 10.7 (9.0-12.0) Seconds INR 1.0 (0.9-1.1) POC Sodium 137 (135-144) mmol/L Sodium 137 (136-145) mmol/L POC Potassium 5.1 H (3.3-5.0) mmol/L Potassium 5.1 (3.5-5.1) mmol/L POC Chloride 102 (101-112) mmol/L Chloride 99 (98-107) mmol/L Carbon Dioxide 31 (21-32) mmol/L POC Total CO2 26 (24-31) mmol/L Anion Gap 7 (3-11) POC Anion Gap 15.0 L (16-25) mmol/L POC BUN 70 H (7-18) mg/dl BUN 63 H (6-23) mg/dl Creatinine 6.94 H* (0.6-1.4) mg/dl POC Creatinine 7.1 H* (0.6-1.3) mg/dl Est Cr Clr Drug Dosing 13.7 ml/min eGFR 8.43 BUN/Creatinine Ratio 9.1 L (10-20) Glucose 207 H (70-99(Fasting)) mg/dl POC Glucose (other) 203 H (70-99) mg/dl Calcium 8.6 (8.6-10.3) mg/dl POC Ioniz Calcium Reji 1.11 L (1.12-1.32) mmol/l Magnesium 2.3 (1.7-2.4) mg/dl Total Bilirubin 0.4 (0.2-1.0) mg/dl AST 13 (13-39) U/L ALT 16 (7-52) U/L Alkaline Phosphatase 140 H (34-104) U/L Troponin I High Sens 8.8 (0-20) pg/ml Total Protein 6.9 (6.0-8.3) gm/dl Albumin 3.9 (3.4-5.0) gm/dl Globulin 3.0 (2.5-4.0) gm/dl Albumin/Globulin Ratio 1.3 (0.9-2) TSH 2.290 (0.300-4.500) uIu/ml SARS-CoV-2, RNA, NAAT NEGATIVE (NEGATIVE) Imaging Data Radiologist's Impression: Chest X-Ray 09/13/24 07:07 EXAM: XR chest 1V portable CLINICAL HISTORY: Missed dialysis. TECHNIQUE: X-ray image of the chest obtained in 1 frontal projection. COMPARISON: 11/18/2023 and 04/26/2024. FINDINGS: Pulmonary Parenchyma: Unchanged bilateral parahilar pulmonary congestion. No pulmonary nodules identified. No evidence of pleural effusion or pleural thickening. Heart and Mediastinum: Cardiomegaly. No mediastinal widening or masses. No hilar or mediastinal lymphadenopathy. Bony Thorax: Spondylotic changes in the thoracic spine. Bony thorax appears intact without fractures or deformities. Soft Tissues: Soft tissues overlying the chest wall are unremarkable. IMPRESSION: 1. Unchanged bilateral parahilar pulmonary congestion. 2. No evidence of pleural effusion. 3. Cardiomegaly. Electronically signed by José Miguel Tripp 09-13-2024 08:05 AM Discharge Plan Visit Data Chief Complaint: Cardiac Assessment Stated Complaint: Bradycardia ED Provider: Reid Mullen Discharge Problem: ESRD on hemodialysis, Arrhythmia Patient Disposition: Admitted As Inpatient Condition: Fair Discharge Instructions Interventions: ED Discharge Assessment Last Done: 09/13/24 09:54
[2024-09-13 07:22] LABS: iSTAT Creatinine 7.1 mg/dl (0.6-1.3); iSTAT Hemoglobin 10.9 g/dl (14.0-18.0); iSTAT Ionized Calcium 1.11 mmol/l (1.12-1.32); iSTAT Potassium 5.1 mmol/L (3.3-5.0)
[2024-09-13 07:29] LABS: Albumin Globulin Ratio 1.3 (0.9-2); BUN Creatinine Ratio 9.1 (10-20); Bilirubin,Total 0.4 mg/dl (0.2-1.0); Calcium 8.6 mg/dl (8.6-10.3); Creatinine Clr Calc Pharmacy 13.7 ml/min; Magnesium 2.3 mg/dl (1.7-2.4); Potassium 5.1 mmol/L (3.5-5.1); Thyroid Stimulating Hormone 2.29 uIu/ml (0.300-4.500); Total Protein 6.9 gm/dl (6.0-8.3); Troponin I High Sensitivity 8.8 pg/ml (0-20)
[2024-09-13 07:35] LABS: Prothrombin Time 10.7 Seconds (9.0-12.0)
--- NOTE | 2024-09-13 08:05 | XRay Report ---
EXAM: XR chest 1V portable CLINICAL HISTORY: Missed dialysis. TECHNIQUE: X-ray image of the chest obtained in 1 frontal projection. COMPARISON: 11/18/2023 and 04/26/2024. FINDINGS: Pulmonary Parenchyma: Unchanged bilateral parahilar pulmonary congestion. No pulmonary nodules identified. No evidence of pleural effusion or pleural thickening. Heart and Mediastinum: Cardiomegaly. No mediastinal widening or masses. No hilar or mediastinal lymphadenopathy. Bony Thorax: Spondylotic changes in the thoracic spine. Bony thorax appears intact without fractures or deformities. Soft Tissues: Soft tissues overlying the chest wall are unremarkable. IMPRESSION: 1. Unchanged bilateral parahilar pulmonary congestion. 2. No evidence of pleural effusion. 3. Cardiomegaly. Electronically signed by José Miguel Tripp 09-13-2024 08:05 AM
--- NOTE | 2024-09-13 08:57 | History & Physical Report ---
Date of Service September 13, 2024 Assessment & Plan (1) Bradycardia: (2) ESRD on hemodialysis: (3) Insulin dependent type 2 diabetes mellitus: (4) HTN (hypertension): (5) CAD (coronary artery disease): Plan Patient is a medically complex 59-year-old male with past medical history significant for insulin-requiring DM type II, severe CATALINO, HLD, HTN, pulmonary emphysema, mild ascending aorta dilatation, severe CAD with history of NSTEMI s/p cardiac catheterization in December 2018 with ELIESER x 1 to OM1, mild ischemic cardiomyopathy, history of polysubstance abuse s/p serial inpatient alcohol rehab stays with history of withdrawal seizures, alcoholic hepatitis with severe fatty liver disease, tobacco use disorder, ESRD on HD M/W/F, history of bradycardia during HD, history of NSVT, anemia of chronic disease, persistent proteinuria, polyneuropathy, depression/MECHELLE, mild cognitive impairment and other problems listed below who presented to the ED via EMS from his dialysis session after being found to be bradycardic with HR in the 30s. #Bradycardia #ESRD on HD M/W/F F/w [facility], Dr. Cornell Noted to be bradycardic w/ HR in the 30s at [facility] this morning -Did NOT have dialysis session because of this -Asymptomatic other than feeling tired (took trazodone, melatonin last evening 2/2 insomnia) HR in 60s upon arrival to ED --> remains in 60s upon my eval Tele: sinus rhythm w/ occasional PVCs K+ 5.1, Cr 6.94, BUN 63 CXR: unchanged bilateral parahilar pulmonary congestion, cardiomegaly Nephro consulted, re: arrange dialysis session for today Hold dialysis pretx midodrine 2/2 HTN Continue tele monitoring Hold BB Obtain updated TTE -Lexiscan nuclear stress testing, 06/2024: large inferior and apical perfusion defect involving 35% of the total myocardium, akinesis of the apex and hypokinesis of the inferior wall, LVEF = 47% -TTE, 09/2023: mildly increased concentric LV wall thickness, mildly enlarged LA, grade 1 DD, mild AV R, mild MR, mildly enlarged ascending aorta measuring 3.8cm Hold off on cards consult for now --> will reconsider if bradycardia recurrent and/or if pt develops sx #History of polysubstance abuse #History of alcohol withdrawal seizures Pt reports no EtOH use in >1yr No reported recreational drug use Recently quit smoking 1wk ago --> denies need for nicotine patch at this time Continue folic acid #Insulin-requiring DMII Hgb A1c 7.4% 1mo ago Hold home insulin reg Basal/bolus reg while inpt --> appreciate assistance of glycemic pharm Follow BSG checks ACHS #HLD Continue statin #Severe CAD #History of NSTEMI s/p ELIESER x 1 to OM1 in 12/2018 #History of mild ischemic cardiomyopathy F/w [facility] cards Hold BB for now given bradycardic event as per above Continue ASA #Depression #MECHELLE Continue Cymbalta, Effexor #GERD Continue PPI #Severe CATALINO CPAP noncompliance Trial CPAP HS while inpt #Anemia of chronic disease Hgb stable, at baseline Continue to monitor H/H DVT Prophylaxis: SCDs/TEDs PCP: Charity Reed MD Disposition: Admit to PCU Patient seen in collaboration with Dr. Duran. Please see addendum. I spent a total of 62 minutes coordinating, documenting, and providing care for this patient excluding time spent in the performance of separately billed services or time spent by another provider/QHP. This included personally reviewing all current laboratories and imaging studies, medical reconciliation, outpatient chart review and discussion with specialists. This chart was completed in part utilizing Speech Voice Recognition Software. Grammatical errors, random word insertions, pronoun errors, and incomplete sentences are an occasional consequence of this system due to software limitations, ambient noise, and hardware issues. Any formal questions or concerns about the content, text, or information contained within the body of this dictation should be directly addressed to the provider for clarification. History of Present Illness Chief Complaint: Bradycardia w/ HR in the 30s at HD session this AM Primary Care Provider: Charity Reed MD Patient is a medically complex 59-year-old male with past medical history significant for insulin-requiring DM type II, severe CATALINO, HLD, HTN, pulmonary emphysema, mild ascending aorta dilatation, severe CAD with history of NSTEMI s/p cardiac catheterization in December 2018 with ELIESER x 1 to OM1, mild ischemic cardiomyopathy, history of polysubstance abuse s/p serial inpatient alcohol rehab stays with history of withdrawal seizures, alcoholic hepatitis with severe fatty liver disease, tobacco use disorder, ESRD on HD M/W/F, history of bradycardia during HD, history of NSVT, anemia of chronic disease, persistent proteinuria, polyneuropathy, depression/MECHELLE, mild cognitive impairment and other problems listed below who presented to the ED via EMS from his dialysis session after being found to be bradycardic with HR in the 30s. History obtained from the patient, discussion with ED provider and associated chart review. Patient noted to be bradycardic with heart rate in the 30s after arriving at [facility] earlier this morning. His HD session was NOT started because of this; he was sent to ED for further evaluation. Patient states he was asymptomatic during this event other than feeling tired. Denies any SOB, chest pain, palpitations, lightheadedness or dizziness when the bradycardia occurred. Has been compliant with his dialysis sessions; did not have any issues during his dialysis sessions on Monday or Monday this week. Follows with [facility] nephrology, Dr. Cornell. Mentions he has had bradycardia during past dialysis sessions when he was found to be hyperkalemic. Endorses poor sleep overnight. Admits to taking both melatonin and trazodone last evening to help him sleep. Heart rate upon arrival to the ED was in the mid to low 60s. At the time of my evaluation, patient's heart rate remained in the low 60s and telemetry revealed sinus rhythm with occasional PVCs. Vitals otherwise stable. Follows with [facility] cardiology. Lexiscan nuclear stress testing completed in June 2024: large inferior and apical perfusion defect involving 35% of the total myocardium, akinesis of the apex and hypokinesis of the inferior wall, LVEF = 47%. TTE completed in September 2023: mildly increased concentric LV wall thickness, mildly enlarged LA, grade 1 DD, mild AV R, mild MR, mildly enlarged ascending aorta measuring 3.8cm. Allergies Allergy/AdvReac Type Severity Reaction Status Date / Time pollen extracts Allergy Intermediate SNEEZING, Verified 09/13/24 08:45 CONGESTION Home Medications Medication Instructions Recorded Confirmed Type atorvastatin 80 mg tablet 80 mg PO QAM 10/25/21 09/13/24 History duloxetine 30 mg capsule,delayed 30 mg PO QAM 03/27/23 09/13/24 History release (Cymbalta) desloratadine 5 mg tablet 5 mg PO QAM 07/12/23 09/13/24 History (Clarinex) folic acid 1 mg tablet 1 mg PO QAM 07/12/23 09/13/24 History acetaminophen 325 mg tablet 650 mg PO DIRECTED PRN 08/23/23 09/13/24 History (Tylenol) PAIN/FEVER blood-glucose sensor (Dexcom G7 #3 ea 04/30/24 09/13/24 Rx Sensor device) insulin lispro 100 unit/mL 10 - 15 unit subcut TID 05/14/24 09/13/24 History subcutaneous pen (Humalog KwikPen (U-100) Insulin) blood sugar diagnostic (Food SproutTouch #100 ea 05/28/24 09/13/24 Rx Verio test strips) blood-glucose meter (Secant Therapeuticsuch #1 ea 05/28/24 09/13/24 Rx Verio Flex Meter) lancets 30 gauge (Food SproutTouch Delica #100 ea 05/28/24 09/13/24 Rx Plus Lancet) insulin glargine 100 unit/mL (3 22 unit (0.22 mL) subcut QAM #30 mL 06/24/24 09/13/24 Rx mL) subcutaneous pen (Lantus Solostar U-100 Insulin) calcium acetate 667 mg tablet 667 - 1,334 mg PO DIRECTED 08/20/24 09/13/24 History aspirin 81 mg tablet,delayed 81 mg PO DAILY 09/13/24 09/13/24 History release lidocaine-prilocaine 2.5 %-2.5 % 1 g topical 3XWK 09/13/24 09/13/24 History topical cream metoprolol succinate 50 mg 50 mg PO QAM 09/13/24 09/13/24 History tablet,extended release 24 hr midodrine 2.5 mg tablet 2.5 mg PO 3XWK 09/13/24 09/13/24 History pantoprazole 20 mg tablet,delayed 20 mg PO QAM 09/13/24 09/13/24 History release sodium zirconium cyclosilicate 10 10 g PO DAILY 09/13/24 09/13/24 History gram oral powder packet (Lokelma) trazodone 50 mg tablet 50 mg PO HS 09/13/24 09/13/24 History venlafaxine 37.5 mg 37.5 mg PO QAM 09/13/24 09/13/24 History capsule,extended release 24 hr vitamin B complex-vitamin C-folic 1 tab PO DAILY 09/13/24 09/13/24 History acid 0.8 mg tablet (Anjali-Ladonna) Past Med/Surg History Problem List (Updated 09/13/24 @ 13:59 by ENOC Sutton) Frequent PVCs Insulin dependent type 2 diabetes mellitus Arrhythmia (Acute) Bradycardia Diabetic peripheral neuropathy associated with type 2 diabetes mellitus ESRD on hemodialysis (Acute) Hypoglycemia unawareness associated with type 2 diabetes mellitus Hypertension associated with stage 5 chronic kidney disease due to type 2 diabetes mellitus Non-compliance (Acute) Abnormal LFTs (Acute) Generalized seizure (Acute) Alcohol use disorder, severe, dependence etoh x 40 years - 1 gallon vodka per day, rehab Dec 2022, last drank in Feb 2023 Dyslipidemia, goal LDL below 70 ASCVD (arteriosclerotic cardiovascular disease) Transaminitis Pancytopenia (Acute) CATALINO (obstructive sleep apnea) no CPAP Proteinuria Diabetes mellitus type 2 with complications Cardiomyopathy Cirrhosis of liver Chronic pain syndrome CHF (congestive heart failure) (Acute) Anemia (Acute) Bilateral edema of lower extremity (Acute) History of cardiac catheterization (Chronic) x1, [place], ELIESER to proximal OM by Dr. Guerrero on 01/01/19, follows with [facility] (unsure of name) Mood disorder (Chronic) Back pain (Chronic) Tobacco use disorder (Chronic) Neuropathy (Chronic) Type 2 diabetes mellitus (Chronic) HTN (hypertension) (Chronic) Medical History History of seizure ASCVD (arteriosclerotic cardiovascular disease) Dyslipidemia Hypertension Diabetes type 2 Dialysis AV fistula malfunction CKD (chronic kidney disease) stage 5, GFR less than 15 ml/min Acute renal insufficiency Lumbar contusion Contusion of elbow, left Alcohol abuse Closed fracture of left hip CHI (closed head injury) Encephalopathy Hypertensive crisis Hydrocele Acute on chronic renal insufficiency History of acute renal failure Elevated troponin I level Alcohol intoxication Bilateral cellulitis of lower leg Abnormal electrocardiogram [ECG] [EKG] Discharge planning issues CAD (coronary artery disease) Thrombocytopenia Non-ST elevation LA (NSTEMI) CKD (chronic kidney disease) stage 5, GFR less than 15 ml/min Poor historian all hx provided by sister, Kavya Banks Hx of encephalopathy DJD (degenerative joint disease) Back Chronic back pain History of COVID-19 x2, not hospitalized Hx of congestive heart failure Cirrhosis of liver History of asthma Hx of non-ST elevation myocardial infarction (NSTEMI) x 2, cath 2019 x 1 stent, follows with [facility] (unsure of name, last visit > 9 months) TONEY (dyspnea on exertion) Ischemic cardiomyopathy Surgical History S/P total left hip arthroplasty Hx of wisdom tooth extraction History of total left hip replacement (~10/2022) History of lymph node biopsy Family History Other Diabetes Heart disease Hypertension Social History Smoking Status: Current some day smoker Tobacco Type: Cigarettes Cigarettes Per Day: 3-4 cigarettes/day; Second Hand Exposure: No; Do You Dip or Chew Tobacco: No; Tobacco Cessation Education Requested by Patient: No Hx Alcohol Use: No Hx Substance Use: No Preferred Language: Dominican Communication Ability: Effective Food Sales Clerk Required: No Beliefs That Will Affect Care: None marital status: Single Current Living Situation: Alone current occupational status: unemployed How many Children do You have: 2 Other Information That Helps Us Care for You: No Feels Safe at Home: Yes Safety Concerns: Feels Safe At This Time Assistive Devices: Walker Review of Systems Review of Systems: At least ten systems reviewed and negative, except as noted in the HPI. Physical Exam Physical Exam: General: WD/WN, NAD, appears fatigued, A&Ox3, cooperative, conversing appropriately HEENT: Normocephalic, atraumatic, oropharynx normal. Respiratory: Normal respiratory effort, somewhat diminished 2/2 body habitus but otherwise lungs clear to auscultation bilaterally Cardiovascular: Regular rate, frequent premature beats, normal peripheral pulses, no BLE edema Abdomen/GI: Normal bowel sounds, soft, nontender to palpation in all quadrants Extremities/MSK: No cyanosis or clubbing, extremities motor strength intact, moves all extremities, + AV fistula RUE Neurologic: No overt focal deficits, CN's II-XI not formally tested but appear grossly intact bilaterally Results & Data Results & Data Vital Signs (Past 12 Hours) Vital Signs Pulse Resp BP Pulse Ox O2 Del Method 09/13/24 08:33 66 14 96 09/13/24 08:00 65 14 92 09/13/24 07:42 64 14 95 09/13/24 07:30 204/113 H 09/13/24 07:27 62 15 93 09/13/24 07:00 192/104 H 09/13/24 07:00 63 12 95 09/13/24 06:36 64 9 L 97 09/13/24 06:34 66 09/13/24 06:30 166/102 H 09/13/24 06:24 64 10 L 96 09/13/24 06:16 191/93 H 09/13/24 06:16 191/93 H 09/13/24 06:16 191/93 H 09/13/24 06:15 59 L 12 96 09/13/24 06:12 63 14 96 09/13/24 06:07 64 09/13/24 06:00 Room Air 09/13/24 06:00 64 20 191/93 H 96 Room Air Laboratory Results Short CBC 09/13/24 Range/Units 06:12 WBC 6.85 (4.8-10.8) K/ul Hgb 10.8 L (14.0-18.0) g/dl Hct 33.2 L (42.0-52.0) % Plt Count 162 (130-400) K/uL BMP 09/13/24 06:12 Sodium 137 Potassium 5.1 Chloride 99 Carbon Dioxide 31 BUN 63 H Creatinine 6.94 H* Glucose 207 H Calcium 8.6 Liver Function 09/13/24 Range/Units 06:12 Total Bilirubin 0.4 (0.2-1.0) mg/dl AST 13 (13-39) U/L ALT 16 (7-52) U/L Alkaline Phosphatase 140 H (34-104) U/L Albumin 3.9 (3.4-5.0) gm/dl Diagnostic Findings Chest X-Ray 09/13/24 07:07 EXAM: XR chest 1V portable CLINICAL HISTORY: Missed dialysis. TECHNIQUE: X-ray image of the chest obtained in 1 frontal projection. COMPARISON: 11/18/2023 and 04/26/2024. FINDINGS: Pulmonary Parenchyma: Unchanged bilateral parahilar pulmonary congestion. No pulmonary nodules identified. No evidence of pleural effusion or pleural thickening. Heart and Mediastinum: Cardiomegaly. No mediastinal widening or masses. No hilar or mediastinal lymphadenopathy. Bony Thorax: Spondylotic changes in the thoracic spine. Bony thorax appears intact without fractures or deformities. Soft Tissues: Soft tissues overlying the chest wall are unremarkable. IMPRESSION: 1. Unchanged bilateral parahilar pulmonary congestion. 2. No evidence of pleural effusion. 3. Cardiomegaly. Electronically signed by José Miguel Tripp 09-13-2024 08:05 AM Code Status & VTE Plan Code Status FULL CODE Supervising Physician Co-Signing Physician Notes I have seen and discussed the case with the collaborating advanced practitioner. I agree with the above H&P. I have reviewed and confirmed the patients medical history, the findings on physical examination, and the patients diagnosis and treatment plan with Jocelyn CHAIREZ and agree with the information docum entkaran. Mr. Dillard is a gentleman with ESRD and prior ischemic cardiomyopathy with ventricular ectopy admitted for concerns of bradycardia prior to HD with rates as low as 30s reported. Patient reports weakness, but denies any other concerns like syncope. TSH wnl Cardiology: suspects 2/2 PVCs rather than true bradycardia Plan to resume Toprol XL possible d/c tomorrow I spent a total of 30 minutes coordinating, documenting, and providing care for this patient excluding time spent in the performance of separately billed services. All of the aforementioned completed outside of collaborating with the assigned advanced practitioner for a full treatment plan. (4) HTN (hypertension) Hypertension type: primary hypertension Qualified Code(s): I10 - Essential (primary) hypertension (5) CAD (coronary artery disease) Associated angina: unspecified whether angina present Coronary Disease- Associated Artery/Lesion type: unspecified vessel or lesion type [place] vs. transplanted heart: unspecified whether [place] or transplanted heart Qualified Code(s): I25.10 - Atherosclerotic heart disease of [place] coronary artery without angina pectoris
[2024-09-13] MEDS ORDERED: DEXTROSE 50% 50 ML SYRINGE IV PRN (09:18)
[2024-09-13] MEDS ORDERED: GLUCOSE 10 TAB/TUBE PO PRN (09:18)
[2024-09-13] MEDS ORDERED: PHARMACY GLYCEMIC MGMT CONSULT PRN (09:18)
[2024-09-13] MEDS ORDERED: GLUCAGON FOR INJ 1 MG VIAL SQ PRN (09:18)
[2024-09-13] MEDS ORDERED: GLUCOSE 40% GEL 15 GM TUBE PO PRN (09:18)
[2024-09-13] MEDS ORDERED: CARBOHYDRATES FOR HYPOGLYCEMIA PO PRN (09:18)
[2024-09-13] MEDS ORDERED: SODIUM CHLORIDE 0.9% 1,000 ML IV PRN (09:30)
--- NOTE | 2024-09-13 09:41 | Nephrology Consultation ---
Date of Consultation September 13, 2024 Assessment & Plan (1) ESRD on hemodialysis: neded 5.7 L UF today. plan routine tx 255 min, 2/2.5 bath 38 bic, 138 Na; 15 g nedles, 1600 units load hep/800 maint; TW 103.5; will use largest dialyzer (on 19 H as OP) HD today -on velforo w/ one phoslo ac as OP >> will change to phoslo 4 ac/2 snack in house -cont calcitriol MWF 0.25 -cont cinacalcet 90 m MWF hold pretx midodrine since he's hypertensive today (2) CATALINO (obstructive sleep apnea): severe per 06/2024 study >>pls trial CPAP if feasible in house (3) Dialysis AV fistula malfunction: has been running ok at HD; water hammer sound/exam change reviewed w/ vascular PA who recommends u/s u/s ordered; (4) Arrhythmia: bradycardia w/ h/o frequent ectopy, NSVT, untreated CATALINO, ICMO >query cardiology if we can do nuke med scan in house >trial cpap in house if able (settings 15-20) CWP was sent 07/31/24; ? if using at home History of Present Illness Reason for Consultation: ESRD heart rhythm issues Requesting Physician: admitting [facility] hospitalist Attending Physician: admitting [facility] hospitatlist History of Present Illness 59 y/o M whom I'm asked to see for dialysis needs was sent from dialysis unit before tx this am after presenting with HR in 30s w/ feelings of dizziness and fatigue. PMH ESRD d/t DM, chronic HFpEF from ischemic cardiomyopathy (EF 52 %, mild darren/aor rgg, mild CLVHTTE 2023), CAD status post stent, resistant hypertension w/ significant autonomic dysfunction, at least mild cognitive impairment and significant memory problems/cannot handle own meds reliably w/o support; polyneuropathy; hyperlipidemia, COPD as per records, severe CATALINO on 06/2024 sleep study showing, anxiety/mood disorder, history of alcohol abuse s/p rehab and now abstinent but prior to this h/o withdrawal seizures, ? if ongoing tobacco abuse. Admitted here fall 2023 after bradycardia at HD >> zio showed frequent ectopy (atrial tach w/ variable block, bi- and trigeminy) and nsvt; scheduled for nuke med scan to r/o myocardial ischemia but he ate before/needs to reschedule/some insurance reauth challenges. very poor historian at baseline. Noted at HD to have HR in 30s on apical exam > pt tired/drowsy, somewhat light headed; he had also taking 2 x 12 mg melatonin and dose of trazodone prior to HD. Pt w/ chronic sleep issues; severe CATALINO reaffirmed; ? if using CPAP. Facility charge nurse reviewed w/ me > recommended ER eval. in ER (and even before transfer) HR up to 60s. Also noted to have AVF exam change/water hammer sound > u/s recommended but pt POA cancelled/did not reschedule. no chest pain , no sob, no n/v/d. very tired and hard to keep involved on conversation, which limits ROS. Allergies Allergy/AdvReac Type Severity Reaction Status Date / Time pollen extracts Allergy Intermediate SNEEZING, Verified 09/13/24 08:45 CONGESTION Home Medications Medication Instructions Recorded Confirmed Type atorvastatin 80 mg tablet 80 mg PO QAM 10/25/21 09/13/24 History duloxetine 30 mg capsule,delayed 30 mg PO QAM 03/27/23 09/13/24 History release (Cymbalta) desloratadine 5 mg tablet 5 mg PO QAM 07/12/23 09/13/24 History (Clarinex) folic acid 1 mg tablet 1 mg PO QAM 07/12/23 09/13/24 History acetaminophen 325 mg tablet 650 mg PO DIRECTED PRN 08/23/23 09/13/24 History (Tylenol) PAIN/FEVER blood-glucose sensor (D[employer] G7 #3 ea 04/30/24 09/13/24 Rx Sensor device) insulin lispro 100 unit/mL 10 - 15 unit subcut TID 05/14/24 09/13/24 History subcutaneous pen (Humalog KwikPen (U-100) Insulin) blood sugar diagnostic (everyArtuch #100 ea 05/28/24 09/13/24 Rx Verio test strips) blood-glucose meter (everyArtuch #1 ea 05/28/24 09/13/24 Rx Verio Flex Meter) lancets 30 gauge (MultistatTouch Delica #100 ea 05/28/24 09/13/24 Rx Plus Lancet) insulin glargine 100 unit/mL (3 22 unit (0.22 mL) subcut QAM #30 mL 06/24/24 09/13/24 Rx mL) subcutaneous pen (Lantus Solostar U-100 Insulin) calcium acetate 667 mg tablet 667 - 1,334 mg PO DIRECTED 08/20/24 09/13/24 History aspirin 81 mg tablet,delayed 81 mg PO DAILY 09/13/24 09/13/24 History release lidocaine-prilocaine 2.5 %-2.5 % 1 g topical 3XWK 09/13/24 09/13/24 History topical cream metoprolol succinate 50 mg 50 mg PO QAM 09/13/24 09/13/24 History tablet,extended release 24 hr midodrine 2.5 mg tablet 2.5 mg PO 3XWK 09/13/24 09/13/24 History pantoprazole 20 mg tablet,delayed 20 mg PO QAM 09/13/24 09/13/24 History release sodium zirconium cyclosilicate 10 10 g PO DAILY 09/13/24 09/13/24 History gram oral powder packet (Lokelsc) trazodone 50 mg tablet 50 mg PO HS 09/13/24 09/13/24 History venlafaxine 37.5 mg 37.5 mg PO QAM 09/13/24 09/13/24 History capsule,extended release 24 hr vitamin B complex-vitamin C-folic 1 tab PO DAILY 09/13/24 09/13/24 History acid 0.8 mg tablet (Anjali-Ladonna) Patient History Medical History History of seizure ASCVD (arteriosclerotic cardiovascular disease) Dyslipidemia Hypertension Diabetes type 2 Dialysis AV fistula malfunction CKD (chronic kidney disease) stage 5, GFR less than 15 ml/min Acute renal insufficiency Lumbar contusion Contusion of elbow, left Alcohol abuse Closed fracture of left hip CHI (closed head injury) Encephalopathy Hypertensive crisis Hydrocele Acute on chronic renal insufficiency History of acute renal failure Elevated troponin I level Alcohol intoxication Bilateral cellulitis of lower leg Abnormal electrocardiogram [ECG] [EKG] Discharge planning issues CAD (coronary artery disease) Thrombocytopenia Non-ST elevation PR (NSTEMI) CKD (chronic kidney disease) stage 5, GFR less than 15 ml/min Poor historian all hx provided by sister, Kavya Banks Hx of encephalopathy DJD (degenerative joint disease) Back Chronic back pain History of COVID-19 x2, not hospitalized Hx of congestive heart failure Cirrhosis of liver History of asthma Hx of non-ST elevation myocardial infarction (NSTEMI) x 2, cath 2019 x 1 stent, follows with [facility] (unsure of name, last visit > 9 months) TONEY (dyspnea on exertion) Ischemic cardiomyopathy Surgical History S/P total left hip arthroplasty Hx of wisdom tooth extraction History of total left hip replacement (~10/2022) History of lymph node biopsy Family History Other Diabetes Heart disease Hypertension Social History Smoking Status: Former smoker Tobacco Type: Cigarettes Cigarettes Per Day: 3-4 cigarettes/day; Second Hand Exposure: No; Do You Dip or Chew Tobacco: No; Hx Alcohol Use: No Hx Substance Use: No Preferred Language: Cypriot Communication Ability: Effective Freight Brakeman Required: No Beliefs That Will Affect Care: None marital status: Single Current Living Situation: Alone current occupational status: unemployed How many Children do You have: 2 Feels Safe at Home: Yes Assistive Devices: None Review of Systems 2 Review of Systems: All systems reviewed & are unremarkable except as noted in HPI & below (limited by fatigue adn cognitive status) Physical Exam 2 Constitutional: well developed (very fatigued), well nourished and cooperative; no acute distress and no altered mental status Eyes: EOM intact bilaterally ENMT: Mouth: + dry oral mucous membranes Respiratory: normal respiratory effort Auscultation: + diminished lung sounds Cardiovascular: Rate/Rhythm: regular rate (frquent premature beats and bigeminy ) Extremities: + AV fistula (+ t/b) Gastrointestinal (Abdomen): Inspection/Auscultation: normal bowel sounds P ercussion/Palpation: abdomen soft; abdomen nontender Musculoskeletal: Extremities: strength 5/5 throughout Skin: no rashes, warm and dry Neurologic: maza, fluent speech, no tremor Psychiatric: fatigued, ms at [facility] Results & Data Vital Signs (Past 12 Hours) Vital Signs Pulse Resp BP Pulse Ox O2 Del Method 09/13/24 08:33 66 14 96 09/13/24 08:00 65 14 92 09/13/24 07:42 64 14 95 09/13/24 07:30 204/113 H 09/13/24 07:27 62 15 93 09/13/24 07:00 192/104 H 09/13/24 07:00 63 12 95 09/13/24 06:36 64 9 L 97 09/13/24 06:34 66 09/13/24 06:30 166/102 H 09/13/24 06:24 64 10 L 96 09/13/24 06:16 191/93 H 09/13/24 06:16 191/93 H 09/13/24 06:16 191/93 H 09/13/24 06:15 59 L 12 96 09/13/24 06:12 63 14 96 09/13/24 06:07 64 09/13/24 06:00 Room Air 09/13/24 06:00 64 20 191/93 H 96 Room Air Laboratory Results 09/13/24 06:12 09/13/24 06:12 Diagnostic Findings CXR w/ plm congestion
[2024-09-13] MEDS ORDERED: POLYETHYLENE (MIRALAX) 17 GM PACK PO PRN (10:25)
[2024-09-13] MEDS ORDERED: ACETAMINOPHEN 325 MG TAB PO PRN (10:25)
[2024-09-13] MEDS ORDERED: PROMETHAZINE 6.25 MG/50.25 ML BAG IV PRN (10:25)
[2024-09-13] MEDS ORDERED: MAGNESIUM HYDROXIDE SUSP 30 ML UDC PO PRN (10:25)
[2024-09-13] MEDS ORDERED: CALCIUM ACETATE 667 MG CAP/TAB PO PRN (10:28)
[2024-09-13] MEDS ORDERED: MIDODRINE HCL 2.5 MG TAB PO SCH (11:30)
[2024-09-13] MEDS: CALCITRIOL 0.25 MCG CAPSULE PO SCH (11:44)
--- NOTE | 2024-09-13 11:52 | Cardiology Consultation ---
Date of Consultation September 13, 2024 Assessment & Plan (1) Frequent PVCs: (2) ASCVD (arteriosclerotic cardiovascular disease): (3) Cardiomyopathy: (4) ESRD on hemodialysis: Plan Assessment: 59 year old medically complex male presents to ER with reported concerns from outpatient dialysis clinic for bradycardia. EKG shows SR with frequent PVC's in bigeminy pattern. Cardiology has been consulted for further evaluation and recommendations. Plan 1. Frequent PVC 2. ASCVD 3. History of ischemic cardiomyopathy -patient with known CAD and ICM (last echo 2023 suggesting LVEF 52%) with known ventricular ectopy. -Review of EKG and telemetry shows a normal resting heart rate in the 60's with frequent PVC's likely leading to the appearance of a low heart rate on an automatic vital sign machine. -labs reviewed and show stable potassium and magnesium. TSH normal. -Restart Metoprolol succinate 50mg PO Daily as per home regimen and continue to monitor on telemetry. Please wait to give dose of metoprolol for after his HD treatment is complete to avoid it being dialyzed out. -Obtain resting echocardiogram to assess LV function. 4. ESRD on HD -as per management of primary care team and nephrology Case has been discussed with Dr. Villa. Further recommendations regarding plan of care as per his assessment. I spent a total of 40 minutes on the date of service in preparation, delivery, documentation of the care provided to the patient excluding any time spent in the performance of separately billed services. [facility] Cardiology [facility] Supervising Physician Co-Signing Physician Notes I have personally performed a history and physical examination on the patient. I have reviewed the advance practitioner's documentation, and I agree with, and take responsibility for the plan of care. 59-year-old male presenting from outpatient hemodialysis this a.m. due to asymptomatic bradycardia. ECG on admission demonstrating sinus rhythm with frequent PVCs. Telemetry revealing frequent PVCs as well as periods of bigeminy and ventricular trigeminy. Normal TSH and baseline electrolytes. History of frequent PVCs per ZIO monitor December 2023 demonstrating an 11% burden. Recorded low pulse rate secondary to PVCs/ ventricular bigeminy rather than true bradycardic event. Patient is asymptomatic from a cardiovascular perspective. Recommend restart beta-arnold therapy, Toprol-XL 50 mg daily. Resting 2D transthoracic echocardiogram for reassessment of left ventricular systolic function in setting of frequent PVCs. If LV function is significantly reduced, recommend outpatient referral to electrophysiology to consider antiarrhythmic therapy and/or ablation. I spent a total of 30 minutes on the date of service in preparation, delivery, and documentation of the care provided to this patient, excluding any time spent in the performance of separately billed services. Howard Villa DO, [facility] History of Present Illness Reason for Consultation: episodic bradycardia, +weakness Requesting Physician: Jackie cardiology Attending Physician: Janae Duran MD History of Present Illness HPI: Patient is a medically complex 59 year old male that presented to the ER today from his outpatient dialysis site due to asymptomatic bradycardia. Reports were that patient's HR was in the 30's at [facility] site this morning and so HD session was not started and he was sent to the ER. Patient's Heart rate was noted to be in the 60's with ventricular ectopy in a bigeminy pattern. EKG obtained upon arrival SR with frequent PVC in Bigeminy pattern. nonspecific St/T wave abnormality in anterior leads. Rate 65bpm Cardiac Problem list: 1. Coronary artery disease a. History of NSTEMI with CATH (12/2018) with ELIESER x1 to OM1 2. Mild ischemic cardiomyopathy a. LVEF 45-50% (ECHO 2018) b. LVEF 49% (ECHO 03/27/19) c. LVEF 60-65% (ECHO 01/17/20) 3. History of polysubstance abuse status post inpatient alcohol rehab with history of withdrawal seizures and rehab stay (06/08/22) 4. Tobacco use disorder 5. Type 2 diabetes mellitus (Last HbA1c 7.8%) 6. ESRD on hemodialysis MWF 7. 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 Follows with nephrology Of note, patient was last seen in our cardiology office 04/2024 and was recommended for nuclear stress test due to hx of ischemic cardiomyopathy and recent zio showing increased runs of NSVT, stress test was aborted due to consumption of caffeine and recommended to reschedule. Patient has not rescheduled testing at this time. Upon seeing patient in examination he is resting in bed on hemodialysis. He denies any chest pain pressure or palpitations. He denies any dizziness or lightheadedness, endorses generalized weakness, but nothing new than his baseline. "I just feel tired" Review of telemetry shows SR with frequent PVC's, intermittent bigeminy and trigeminy, and rare 3 and 4 beat run of VT. Allergies Allergy/AdvReac Type Severity Reaction Status Date / Time pollen extracts Allergy Intermediate SNEEZING, Verified 09/13/24 08:45 CONGESTION Home Medications Medication Instructions Recorded Confirmed Type atorvastatin 80 mg tablet 80 mg PO QAM 10/25/21 09/13/24 History duloxetine 30 mg capsule,delayed 30 mg PO QAM 03/27/23 09/13/24 History release (Cymbalta) desloratadine 5 mg tablet 5 mg PO QAM 07/12/23 09/13/24 History (Clarinex) folic acid 1 mg tablet 1 mg PO QAM 07/12/23 09/13/24 History acetaminophen 325 mg tablet 650 mg PO DIRECTED PRN 08/23/23 09/13/24 History (Tylenol) PAIN/FEVER blood-glucose sensor ([employer] G7 #3 ea 04/30/24 09/13/24 Rx Sensor device) insulin lispro 100 unit/mL 10 - 15 unit subcut TID 05/14/24 09/13/24 History subcutaneous pen (Humalog KwikPen (U-100) Insulin) blood sugar diagnostic (OneTouch #100 ea 05/28/24 09/13/24 Rx Verio test strips) blood-glucose meter (OneTouch #1 ea 05/28/24 09/13/24 Rx Verio Flex Meter) lancets 30 gauge (OneTouch Delica #100 ea 05/28/24 09/13/24 Rx Plus Lancet) insulin glargine 100 unit/mL (3 22 unit (0.22 mL) subcut QAM #30 mL 06/24/24 09/13/24 Rx mL) subcutaneous pen (Lantus Solostar U-100 Insulin) calcium acetate 667 mg tablet 667 - 1,334 mg PO DIRECTED 08/20/24 09/13/24 History aspirin 81 mg tablet,delayed 81 mg PO DAILY 09/13/24 09/13/24 History release lidocaine-prilocaine 2.5 %-2.5 % 1 g topical 3XWK 09/13/24 09/13/24 History topical cream metoprolol succinate 50 mg 50 mg PO QAM 09/13/24 09/13/24 History tablet,extended release 24 hr midodrine 2.5 mg tablet 2.5 mg PO 3XWK 09/13/24 09/13/24 History pantoprazole 20 mg tablet,delayed 20 mg PO QAM 09/13/24 09/13/24 History release sodium zirconium cyclosilicate 10 10 g PO DAILY 09/13/24 09/13/24 History gram oral powder packet (Lokeloh) trazodone 50 mg tablet 50 mg PO HS 09/13/24 09/13/24 History venlafaxine 37.5 mg 37.5 mg PO QAM 09/13/24 09/13/24 History capsule,extended release 24 hr vitamin B complex-vitamin C-folic 1 tab PO DAILY 09/13/24 09/13/24 History acid 0.8 mg tablet (Anjali-Ladonna) Patient History Medical History History of seizure ASCVD (arteriosclerotic cardiovascular disease) Dyslipidemia Hypertension Diabetes type 2 Dialysis AV fistula malfunction CKD (chronic kidney disease) stage 5, GFR less than 15 ml/min Acute renal insufficiency Lumbar contusion Contusion of elbow, left Alcohol abuse Closed fracture of left hip CHI (closed head injury) Encephalopathy Hypertensive crisis Hydrocele Acute on chronic renal insufficiency History of acute renal failure Elevated troponin I level Alcohol intoxication Bilateral cellulitis of lower leg Abnormal electrocardiogram [ECG] [EKG] Discharge planning issues CAD (coronary artery disease) Thrombocytopenia Non-ST elevation MD (NSTEMI) CKD (chronic kidney disease) stage 5, GFR less than 15 ml/min Poor historian all hx provided by sister, Kavya Banks Hx of encephalopathy DJD (degenerative joint disease) Back Chronic back pain History of COVID-19 x2, not hospitalized Hx of congestive heart failure Cirrhosis of liver History of asthma Hx of non-ST elevation myocardial infarction (NSTEMI) x 2, cath 2019 x 1 stent, follows with [facility] (unsure of name, last visit > 9 months) TONEY (dyspnea on exertion) Ischemic cardiomyopathy Surgical History S/P total left hip arthroplasty Hx of wisdom tooth extraction History of total left hip replacement (~10/2022) History of lymph node biopsy Family History Other Diabetes Heart disease Hypertension Social History Smoking Status: Current some day smoker Tobacco Type: Cigarettes Cigarettes Per Day: 3-4 cigarettes/day; Second Hand Exposure: No; Do You Dip or Chew Tobacco: No; Tobacco Cessation Education Requested by Patient: No Hx Alcohol Use: No Hx Substance Use: No Preferred Language: Tamazight Communication Ability: Effective Graduate Research Assistant Required: No Beliefs That Will Affect Care: None marital status: Single Current Living Situation: Alone current occupational status: unemployed How many Children do You have: 2 Other Information That Helps Us Care for You: No Feels Safe at Home: Yes Safety Concerns: Feels Safe At This Time Assistive Devices: Walker Review of Systems Review of Systems: All systems reviewed & are unremarkable except as noted in HPI & below Physical Exam Constitutional: well developed and well nourished; no acute distress and not ill appearing Neck: normal visual inspection and trachea midline Respiratory: normal respiratory effort, lungs clear to auscultation Cardiovascular: Rate/Rhythm: regular rate and regular rhythm Heart Sounds: normal S1 and normal S2; no murmur Vessels: dorsalis pedis pulses present; no JVD Extremities: no edema Skin: no rashes, warm and dry Psychiatric: A+Ox3, euthymic affect Results & Data Vital Signs (Past 12 Hours) Vital Signs Temp Pulse Pulse Resp BP BP Pulse Ox 09/13/24 10:48 62 09/13/24 10:28 36.6 C 60 14 178/92 H 96 09/13/24 09:54 09/13/24 09:40 68 16 175/94 H 95 09/13/24 09:40 175/94 H 09/13/24 09:40 175/94 H 09/13/24 09:30 171/88 H 09/13/24 09:30 171/88 H 09/13/24 09:30 171/88 H 09/13/24 09:30 62 10 L 94 09/13/24 09:00 178/89 H 09/13/24 09:00 178/89 H 09/13/24 09:00 178/89 H 09/13/24 08:57 64 11 L 96 09/13/24 08:33 66 14 96 09/13/24 08:00 65 14 92 09/13/24 07:42 64 14 95 09/13/24 07:30 204/113 H 09/13/24 07:27 62 15 93 09/13/24 07:00 192/104 H 09/13/24 07:00 63 12 95 09/13/24 06:36 64 9 L 97 09/13/24 06:34 66 09/13/24 06:30 166/102 H 09/13/24 06:24 64 10 L 96 09/13/24 06:16 191/93 H 09/13/24 06:16 191/93 H 09/13/24 06:16 191/93 H 09/13/24 06:15 59 L 12 96 09/13/24 06:12 63 14 96 09/13/24 06:07 64 09/13/24 06:00 09/13/24 06:00 64 20 191/93 H 96 O2 Del Method 09/13/24 10:48 09/13/24 10:28 Room Air 09/13/24 09:54 Room Air 09/13/24 09:40 09/13/24 09:40 09/13/24 09:40 09/13/24 09:30 09/13/24 09:30 09/13/24 09:30 09/13/24 09:30 09/13/24 09:00 09/13/24 09:00 09/13/24 09:00 09/13/24 08:57 09/13/24 08:33 09/13/24 08:00 09/13/24 07:42 09/13/24 07:30 09/13/24 07:27 09/13/24 07:00 09/13/24 07:00 09/13/24 06:36 09/13/24 06:34 09/13/24 06:30 09/13/24 06:24 09/13/24 06:16 09/13/24 06:16 09/13/24 06:16 09/13/24 06:15 09/13/24 06:12 09/13/24 06:07 09/13/24 06:00 Room Air 09/13/24 06:00 Room Air Laboratory Results Cardiac Enzymes 09/13/24 Range/Units 06:12 AST 13 (13-39) U/L Troponin I High Sens 8.8 (0-20) pg/ml Coagulation 09/13/24 Range/Units 06:12 PT 10.7 (9.0-12.0) Seconds CBC 09/13/24 Range/Units 06:12 WBC 6.85 (4.8-10.8) K/ul RBC 3.54 L (4.70-6.10) M/uL Hgb 10.8 L (14.0-18.0) g/dl Hct 33.2 L (42.0-52.0) % Plt Count 162 (130-400) K/uL Neut # (Auto) 3.09 (1.40-6.50) K/uL Lymph # (Auto) 2.83 (1.20-3.40) K/uL [place] # (Auto) 0.69 H (0.11-0.59) K/uL Eos # (Auto) 0.17 (0.00-0.50) K/uL Baso # (Auto) 0.06 (0.00-0.20) K/uL Comprehensive Metabolic Panel 09/13/24 Range/Units 06:12 Sodium 137 (136-145) mmol/L Potassium 5.1 (3.5-5.1) mmol/L Chloride 99 (98-107) mmol/L Carbon Dioxide 31 (21-32) mmol/L BUN 63 H (6-23) mg/dl Creatinine 6.94 H* (0.6-1.4) mg/dl Glucose 207 H (70-99(Fasting)) mg/dl Calcium 8.6 (8.6-10.3) mg/dl AST 13 (13-39) U/L ALT 16 (7-52) U/L Alkaline Phosphatase 140 H (34-104) U/L Total Protein 6.9 (6.0-8.3) gm/dl Albumin 3.9 (3.4-5.0) gm/dl Intake and Output 09/12/24 09/13/24 09/13/24 22:59 06:59 14:59 Other: Weight 111.1 kg 107.5 kg Weight Measurement Method Built in [facility] Built in [facility] Patient Weight 09/14/24 06:59 Weight 107.5 kg Diagnostic Findings EKG 01/10/24 NSR Incomplete RBBB 67 bpm Qtc 486 Zio Monitor 01/10/24 Patient had a min HR of 53 bpm, max HR of 185 bpm, and avg HR of 75 bpm. Predominant underlying rhythm was Sinus Rhythm. 33 Ventricular Tachycardia runs occurred, the run with the fastest interval lasting 4 beats with a max rate of 185 bpm, the longest lasting 5 beats with an avg rate of 139 bpm. 5 Supraventricular Tachycardia runs occurred, the run with the fastest interval lasting 7 beats with a max rate of 160 bpm, the longest lasting 10 beats with an avg rate of 114 bpm. Some episodes of Supraventricular Tachycardia may be possible Atrial Tachycardia with variable block. Isolated SVEs were rare (<1.0%), SVE Couplets were rare (<1.0%), and SVE Triplets were rare (<1.0%). Isolated VEs were frequent (11.3%, [id number]), VE Couplets were rare (<1.0%, 1195), and VE Triplets were rare (<1.0%, 208). Ventricular Bigeminy and Trigeminy were present. ECHO 09/28/23 Calculated LV ejection Fraction = 52% (three dimensional volumes). The LV wall thickness is mildly increased (concentric). The left atrium is mildly enlarged (35-41 ml/m^2). The left ventricular diastolic function is mildly abnormal (grade I). Mild aortic valve regurgitation is present. Mild mitral regurgitation is present. The ascending aorta is mildly enlarged, 3.8cm. Compared to last available study changes are noted as follows: Mild aortic and mitral regurgitation now present. Cardiac CATH 01/01/19 Findings: LM -Short, luminal irregularities LAD -moderate caliber vessel, 40-50% mid segment disease, small distal vessel with luminal irregularities. Moderate caliber second diagonal with 20 to 30% proximal disease Circumflex -large caliber vessel mid segment luminal irregularities, gives off large OM1 with 95% acute proximal stenosis. RCA -large caliber vessel, dominant, mild diffuse mid segment disease, diffuse 50% distal disease. Right PDA with diffuse 50 to 60% ostial/proximal disease Summary: 1. Severe single vessel coronary artery disease -95% acute proximal OM1 2. Moderate non-culprit coronary artery disease 50% diffuse distal RCA, 50 to 60% proximal right PDA 40 to 50% mid LAD 3. Successful PCI of proximal OM 1 with single drug-eluting stent (3.0 x 18 mm Colt; postdilated with 3.5 NC).
--- NOTE | 2024-09-13 12:19 | Electrocardiogram Report ---
Test Reason : Blood Pressure : */* mmHG Vent. Rate : 65 BPM Atrial Rate : 65 BPM P-R Int : 168 ms QRS Dur : 98 ms QT Int : 400 ms P-R-T Axes : 17 -8 66 degrees QTcB Int : 416 ms Sinus rhythm with frequent Premature ventricular complexes Incomplete right bundle branch block Nonspecific ST and T wave abnormality Abnormal ECG When compared with ECG of 03-Jan-2024 06:31, Premature supraventricular complexes are no longer Present Confirmed by Yobani Farris ([id number]) on 09/13/2024 12:19:30 PM Referred By: REFERRED SELF Confirmed By: Yobani Farris
[2024-09-13] MEDS: LANTUS PER UNIT CHARGE SC SCH ×2 (12:31→21:30)
[2024-09-13] MEDS: INSULIN ASPART PER UNIT CHARGE SC SCH (12:31)
[2024-09-13] MEDS: CALCIUM ACETATE 667 MG CAP/TAB PO SCH (12:38)
[2024-09-13] MEDS: HEPARIN SOD (PORCINE) 1000 UNIT/ML IV ONE (12:53)
[2024-09-13] MEDS: LIDOCAINE/PRILOCAINE 2.5% EA CRM EXT SCH (12:54)
[2024-09-13] MEDS: HEPARIN SOD (PORCINE) 1000 UNIT/ML IV SCH (12:54)
--- NOTE | 2024-09-13 14:56 | Pharmacy Report ---
Pharmacy Glycemic Short Note 2 - Date of Service September 13, 2024 - Glycemic Short BSG Results (Last 24 hours): 09/13/24 09/13/24 09/13/24 06:12 06:18 11:15 Glucose 207 H POC Glucose 162 H POC Glucose (other) 203 H OUTPATIENT ANTIDIABETIC REGIMEN: * Lantus 22 units SQ QAM * Humalog 10-15 units SQ TIDM * HbA1c 7.4% (08/11) * However, this result is likely somewhat unreliable in ESRD patients d/t interactions between the A1c analyzing technique and high levels of urea in ESRD, reduced RBC life span, iron deficiency anemia, and EPO administration. HbA1c > 7.5% in ESRD patient may overestimate the extent of hyperglycemia in ESRD patients. ASSESSMENT: * Dewayne is a 59 year old male admitted with bradycardia/ESRD and a history of insulin-dependent type 2 diabetes mellitus. Pharmacy has been consulted to assist with glycemic management while inpatient. * Fasting BSG this AM elevated upon arrival, med rec noted, last dose basal insulin yesterday. Previous glycemic data from 2022 noted basal requirements of 30 units daily (this was prior to ESRD). Will split up basal insulin with 50% now and then a scale based on BSG if needed. * NovoLog slightly looser than previously used. No glycemic stressors noted at this time. PLAN FOR INPATIENT GLYCEMIC CONTROL: * Hold outpatient oral diabetes medications * Basal insulin * Lantus 15 units SQ daily * Lantus 0-10 units SQ HS based on BSG (see eMAR for additional details) * Bolus insulin * NovoLog per scale ACHS or Q6hrs while NPO * Goal Range: Low 110 mg/dL - High 160 mg/dL * Correction Factor: 25 mg/dL/unit * Nutritional / Prandial insulin per carb ratio of 1 unit per 8 grams CHO consumed
[2024-09-13 15:28] LABS: Hepatitis B Surface Antibody Immune
[2024-09-13] MEDS: METOPROLOL SUCC 50MG EXT REL TAB PO SCH (17:03)
[2024-09-13] MEDS: NEPHROCAPS PO SCH (17:04)
[2024-09-13 19:23] LABS: Hep B Surface Ag with confirm Prelim Positive (Negative)
[2024-09-13] MEDS ORDERED: LANTUS PER UNIT CHARGE SQ SCH (21:00)
--- NOTE | 2024-09-13 21:49 | Ultrasound Report ---
Right upper extremity hemodialysis ultrasound Technique: Grayscale and color Doppler ultrasound images of the right lower extremity arteriovenous fistula. No comparison Findings: Patient is status post right radiocephalic fistula. There is a weblike stenosis involving the proximal cephalic vein just beyond the arterial anastomosis. Remainder of the fistula is widely patent without focal abnormality. Impression Proximaland distal cephalic vein outflow stenosis. Electronically signed by Marciano Fernandez 09-13-2024 9:49 PM
--- NOTE | 2024-09-14 07:03 | Electrocardiogram Report ---
Test Reason : Blood Pressure : */* mmHG Vent. Rate : 63 BPM Atrial Rate : 63 BPM P-R Int : 154 ms QRS Dur : 88 ms QT Int : 460 ms P-R-T Axes : 19 -12 77 degrees QTcB Int : 470 ms Sinus rhythm with frequent Premature ventricular complexes in a pattern of bigeminy Nonspecific ST and T wave abnormality Abnormal ECG When compared with ECG of 13-Sep-2024 06:08, Incomplete right bundle branch block is no longer Present Confirmed by Hany Amador ([id number]) on 09/14/2024 7:03:15 AM Referred By: REFERRED SELF Confirmed By: Hany Amador
--- NOTE | 2024-09-14 07:17 | Nephrology Progress Note ---
Date of Service September 14, 2024 Assessment & Plan (1) ESRD on hemodialysis: Plan: neded 5.7 L UF yesterday and got 4L. routine tx 255 min, 2/2.5 bath 38 bic, 138 Na; 15 g nedles, 1600 units load hep/800 maint; TW 103.5; use largest dialyzer (on 19 H as OP) >>additional 2 hr HD today to control K and volume; after that from neph standpoint could be d/c home >>f/u pending labs -on velforo w/ one phoslo ac as OP >> cont phoslo 4 ac/2 snack in house -cont calcitriol MWF 0.25 -cont cinacalcet 90 m MWF hold pretx midodrine since he's still hypertensive today Care coordinated w/ Allen Tobin via TText re cardiac testing, vascular plan, dialysis timing; we are in agreement. (2) CATALINO (obstructive sleep apnea): Plan: severe per 06/2024 study >>pls trial CPAP if feasible in house (3) Dialysis AV fistula malfunction: Plan: u/s w/ prox and distal cephalic v stenosis has been running ok at HD but K high (6.9 09/09 at HD in pt adherent w/ txs) and w/ abnormal exam no vascular intervention/fistulagram scheduled currently >> could be done as OP if able to schedule in coming week; unclear to me if this would need surgery versus fistulagram. Suggest review w/ vascular surgery; no coverage currently >> *When "No Coverage" is scheduled all vasular phone calls should be directed to [facility] [place] at [facility] at [phone] (4) Arrhythmia: Plan: low pulse rate attributed to pvcs/ventricular bigeminy; not true bradycardia. >>as of Apr 2024 plan was for OP nuke med scan d/t frequent ectopy, NSVT, untreated CATALINO, ICMO -first procedure cancelled b/c pt (who has cognitive impairment) did not follow NPO instructions ->>>second attempt at procedure still not scheduled >>>suggest if not able to do IP pls get this scheduling on track prior to d/c >trial cpap in house if able (settings 15-20) CWP was sent 07/31/24; ? if using at home Admission and Anticipated Discharge Date Admission Date: September 13, 2024 Physical Exam 2 Constitutional: well developed (very fatigued), well nourished and cooperative; no acute distress and no altered mental status Eyes: EOM intact bilaterally ENMT: Mouth: + dry oral mucous membranes Respiratory: normal respiratory effort Auscultation: + diminished lung sounds Cardiovascular: Rate/Rhythm: regular rate (frquent premature beats and bigeminy ) Extremities: + AV fistula (+ t/b) Gastrointestinal (Abdomen): Inspection/Auscultation: normal bowel sounds P ercussion/Palpation: abdomen soft; abdomen nontender Musculoskeletal: Extremities: strength 5/5 throughout Skin: no rashes, warm and dry Results & Data Vital Signs (Past 12 Hours) Vital Signs Temp Pulse Pulse Pulse Resp BP Pulse Ox 09/14/24 03:38 36.6 C 61 20 144/77 H 95 09/13/24 22:30 36.7 C 61 18 155/80 H 95 09/13/24 22:19 63 09/13/24 19:17 36.7 C 64 18 146/78 H 95 O2 Del Method 09/14/24 03:38 Room Air 09/13/24 22:30 Room Air 09/13/24 22:19 09/13/24 19:17 Room Air Laboratory Results 09/13/24 06:12 09/13/24 06:12
[2024-09-14] MEDS ORDERED: SODIUM CHLORIDE 0.9% 1,000 ML IV PRN (07:20)
[2024-09-14 08:13] LABS: Albumin Globulin Ratio 1.2 (0.9-2); BUN Creatinine Ratio 7.5 (10-20); Bilirubin,Total 0.6 mg/dl (0.2-1.0); Creatinine Clr Calc Pharmacy 16.8 ml/min; Globulin 3.4 gm/dl (2.5-4.0); Magnesium 2.1 mg/dl (1.7-2.4); Phosphorus 4.1 mg/dl (2.5-4.9); Potassium 4.2 mmol/L (3.5-5.1); Total Protein 7.5 gm/dl (6.0-8.3)
[2024-09-14 08:43] LABS: Basophils # (auto) 0.05 K/uL (0.00-0.20); Basophils % (auto) 0.7 %; Eosinophils # (auto) 0.18 K/uL (0.00-0.50); Eosinophils % (auto) 2.5 %; Hematocrit (blood only) 36.6 % (42.0-52.0); Hemoglobin 12.9 g/dl (14.0-18.0); Immature Granulocytes # (auto) 0.01 K/uL (0.01-0.20); Immature Granulocytes % (auto) 0.1 %; Lymphocytes # (auto) 2.49 K/uL (1.20-3.40); Lymphocytes % (auto) 34.2 %; Mean Corpuscular Hemoglobin 31.2 pg (25.0-34.0); Mean Corpuscular Hgb Conc 35.2 g/dL (32.0-36.0); Mean Corpuscular Volume 88.4 fL (80.0-100.0); Monocytes # (auto) 0.67 K/uL (0.11-0.59); Monocytes % (auto) 9.2 %; Neutrophils # (auto) 3.88 K/uL (1.40-6.50); Neutrophils % (auto) 53.3 %; Platelet Count 174 K/uL (130-400); RDW Coefficient of Variation 12.9 % (11.5-14.5); RDW Standard Deviation 41.4 fL (36.4-46.3); Red Blood Count 4.14 M/uL (4.70-6.10); White Blood Count 7.28 K/ul (4.8-10.8)
[2024-09-14] MEDS: ASPIRIN 81 MG ECTAB PO SCH (09:05)
[2024-09-14] MEDS: FOLIC ACID 1 MG TAB PO SCH (09:05)
[2024-09-14] MEDS: DULoxetine HCL 30 MG CAP PO SCH (09:05)
[2024-09-14] MEDS: LORATADINE 10 MG TAB PO SCH (09:05)
[2024-09-14] MEDS: ATORVASTATIN 40 MG TAB PO SCH (09:05)
[2024-09-14] MEDS: VENLAFAXINE HCL XR 37.5 MG CAPXR PO SCH (09:06)
[2024-09-14] MEDS: PANTOprazole 40 MG TAB PO SCH (09:06)
[2024-09-14] MEDS: MIDODRINE HCL 2.5 MG TAB PO STA (10:25)
--- NOTE | 2024-09-14 11:05 | Cardiology Progress Note ---
Date of Service September 14, 2024 Assessment & Plan (1) Frequent PVCs: (2) ASCVD (arteriosclerotic cardiovascular disease): (3) Cardiomyopathy: (4) ESRD on hemodialysis: Plan 59-year-old male presenting from outpatient hemodialysis due to asymptomatic bradycardia. ECG on admission demonstrating sinus rhythm with frequent PVCs. Telemetry revealing frequent PVCs as well as periods of bigeminy and ventricular trigeminy. Normal TSH and baseline electrolytes. History of frequent PVCs per ZIO monitor December 2023 demonstrating an 11% burden. Recorded low pulse rate secondary to PVCs/ ventricular bigeminy rather than true bradycardic event. - feeling well today on exam, euvolemic - continues to have frequent episodes of PVCs on telemetry - patient had outpatient nuclear stress test, stress portion not completed due to patient consuming caffeine prior, he is aware of why the test was cancelled, had not been rescheduled due to insurance coverage, [id number] was completed, however was not rescheduled, we discussed completing nuclear stress test while inpatient, he does not want to stay to have this completed, will arrange for it to be done outpatient - continue metoprolol succinate 50 mg daily - continue aspirin, atorvastatin, midodrine - outpatient cardiology follow up already scheduled for 09/25/24 at [facility] Case discussed with attending physician, further recommendations per Dr. Barebr. I spent a total of 25 minutes on the date of service in preparation, delivery, and documentation of the care provided to this patient excluding any time spent in the performance of separately billed services. This visit was a split-shared visit with the substantial portion of the decision making performed by the supervising container packer operator/billing provider. Carina Farrell PA-C [facility] Admission and Anticipated Discharge Date Admission Date: September 13, 2024 Supervising Physician Co-Signing Physician Notes I have reviewed the advanced practitioner's documentation on the date of service referenced in note, and I agree with, and take responsibility for the plan of care. I spent a total of [20] minutes coordinating, documenting, and providing care for this patient excluding time spent in the performance of separately billed services or time spent by another provider. No significant bradycardia. discussed with patient about stress testing . The first time he was scheduled he drank diet tea , thinking it will not have caffeine. he wants to go home today . he said he will follow up and will not have diet drinks , we will arrange for scheduling the nuclear stress davy and also follow up Gabriele 9 th as outpatient continue metoprolol Subjective 59 year old male seen today in cardiology follow up. States he is feeling well. Denies chest pain, palpitations, shortness of breath, lightheadedness. He is eager to go home. Review of Systems Review of Systems: CONSTITUTIONAL: No change in weight, No weakness, No fatigue and No fevers, No sweats or chills. PULMONARY: No cough, sputum, or hemoptysis, No wheezing, No shortness of breath and No recent change in breathing. CARDIOVASCULAR: No chest pain, No dyspnea on exertion, No edema, No palpitations and No syncope. GASTROINTESTINAL: No abdominal pain, No change in bowel habits, No significant heartburn, No nausea, No vomiting, No diarrhea, No constipation, No blood in s tools or black tarry stools. No dysphagia. HEMATOLOGIC: No abnormal bleeding and No bruising. NEUROLOGICAL: Normal balance, No headaches and No weakness. Physical Exam Physical Exam: General: No acute distress. A+Ox3. HEENT: Normocephalic. Atraumatic. PERRL. EOMI. Conjunctiva and sclera clear. NECK: No carotid bruits. No JVD. Carotid upstrokes are brisk. Heart: RRR. S1 and S2 noted. No murmur. No rubs or gallops. PMI non displaced. Lungs: Clear to auscultation. No wheezes. No rhonchi. No rales. Abdomen: Normal bowel sounds. Soft. Nontender. No masses or organomegaly. No abdominal bruits. Extremities: No edema. No clubbing or cyanosis. Pulses: radial=2/4, posterior tibial=2/4, dorsalis pedis = 2/4. NEURO: No focal deficits. PSYCH: Appropriate affect and insight. Results & Data Vital Signs (Past 12 Hours) Vital Signs Temp Pulse Pulse Resp BP Pulse Ox O2 Del Method 09/14/24 08:03 37.1 C 68 21 127/75 96 Room Air 09/14/24 08:00 64 09/14/24 03:38 36.6 C 61 20 144/77 H 95 Room Air Laboratory Results Cardiac Enzymes 09/14/24 Range/Units 06:53 AST 15 (13-39) U/L CBC 09/14/24 Range/Units 06:53 WBC 7.28 (4.8-10.8) K/ul RBC 4.14 L (4.70-6.10) M/uL Hgb 12.9 L (14.0-18.0) g/dl Hct 36.6 L (42.0-52.0) % Plt Count 174 (130-400) K/uL Neut # (Auto) 3.88 (1.40-6.50) K/uL Lymph # (Auto) 2.49 (1.20-3.40) K/uL [place] # (Auto) 0.67 H (0.11-0.59) K/uL Eos # (Auto) 0.18 (0.00-0.50) K/uL Baso # (Auto) 0.05 (0.00-0.20) K/uL Comprehensive Metabolic Panel 09/14/24 Range/Units 06:53 Sodium 137 (136-145) mmol/L Potassium 4.2 (3.5-5.1) mmol/L Chloride 97 L (98-107) mmol/L Carbon Dioxide 30 (21-32) mmol/L BUN 41 H D (6-23) mg/dl Creatinine 5.49 H* D (0.6-1.4) mg/dl Glucose 109 H (70-99(Fasting)) mg/dl Calcium 9.0 (8.6-10.3) mg/dl AST 15 (13-39) U/L ALT 18 (7-52) U/L Alkaline Phosphatase 115 H (34-104) U/L Total Protein 7.5 (6.0-8.3) gm/dl Albumin 4.1 (3.4-5.0) gm/dl Intake and Output 09/13/24 09/14/24 09/14/24 22:59 06:59 14:59 Intake Total 200 / 200 0 / 200 Balance 200 / 200 0 / 200 Intake: Oral 200 / 200 0 / 200 Other: Hemodialysis Ultrafiltration 4,000 Amount Other Intake Source sips Weight 105.2 kg Weight Measurement Method Built in [facility] Diagnostic Findings Telemetry with sinus rhythm, PVCs, bigeminy, rates in the 60s Echo 09/13/24: LVEF 50 to 55%, moderate LVH, mild AR, grade 1 diastolic dysfunction (3) Cardiomyopathy Cardiomyopathy type: ischemic Qualified Code(s): I25.5 - Ischemic cardiomyopathy
[2024-09-14] MEDS: HEPARIN SOD (PORCINE) 1000 UNIT/ML IV ONE (11:06)
[2024-09-14] MEDS: HEPARIN SOD (PORCINE) 1000 UNIT/ML IV SCH (11:06)
--- NOTE | 2024-09-14 12:39 | Discharge Summary ---
Discharge Summary Date of Service September 14, 2024 Principal Dx & Hospital Course #1 = Principal Diagnosis (1) Bradycardia: (2) ESRD on hemodialysis: (3) Insulin dependent type 2 diabetes mellitus: (4) HTN (hypertension): (5) CAD (coronary artery disease): Plan Patient is a medically complex 59-year-old male with past medical history significant for insulin-requiring DM type II, severe CATALINO, HLD, HTN, pulmonary emphysema, mild ascending aorta dilatation, severe CAD with history of NSTEMI s/p cardiac catheterization in December 2018 with ELIESER x 1 to OM1, mild ischemic cardiomyopathy, history of polysubstance abuse s/p serial inpatient alcohol rehab stays with history of withdrawal seizures, alcoholic hepatitis with severe fatty liver disease, tobacco use disorder, ESRD on HD M/W/F, history of bradycardia during HD, history of NSVT, anemia of chronic disease, persistent proteinuria, polyneuropathy, depression/MECHELLE, mild cognitive impairment and other problems listed below who presented to the ED via EMS from his dialysis session after being found to be bradycardic with HR in the 30s. Patient was evealuted by Cardiology, who notes that the reported bradycardia was likely bigeminy and not a true bradycardic event. Patient is set up for follow up with Cards 09/25. 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 Patient counselled to discuss vascular referral as an op to follow up his is fistula. Patient advised to continue all home medications #Bradycardia ruled out, bigeminy Noted to be bradycardic w/ HR in the 30s at [facility] this morning -Did NOT have dialysis session because of this -Asymptomatic other than feeling tired (took trazodone, melatonin last evening 2/2 insomnia) HR in 60s upon arrival to ED --> remains in 60s upon my eval Tele: sinus rhythm w/ occasional PVCs K+ 5.1, Cr 6.94, BUN 63 CXR: unchanged bilateral parahilar pulmonary congestion, cardiomegaly Nephro consulted, re: arrange dialysis session for today resume midodrine as needed for hypotension during hd continue home metoprolol Cardiology: OP follow up scheduled 09/25 #ESRD on HD M/W/F F/w Jackie reyes, Dr. Cornell continue all routine HD sessions and follow up -on velforo w/ one phoslo ac as OP >> cont phoslo 4 ac/2 snack in house -cont calcitriol MWF 0.25 -cont cinacalcet 90 m MWF US of fistula obtained which revealed proximal and distal cephalic stenosis Vascular as OP follow #History of polysubstance abuse #History of alcohol withdrawal seizures Pt reports no EtOH use in >1yr No reported recreational drug use Recently quit smoking 1wk ago --> denies need for nicotine patch at this time Continue folic acid #Insulin-requiring DMII Hgb A1c 7.4% 1mo ago resume home regimen #HLD Continue statin #Severe CAD #History of NSTEMI s/p ELIESER x 1 to OM1 in 12/2018 #History of mild ischemic cardiomyopathy F/w [facility] continue BB Continue ASA #Depression #MECHELLE Continue Cymbalta, Effexor #GERD Continue PPI #Severe CATALINO CPAP noncompliance CPAP at [facility]--encouraged patient to follow up and obtain CPAP pamela #Anemia of chronic disease Hgb stable, at baseline Notes For Next Care Provider Recommend Vascular Referral for assessment of Doppler of fistulae ( per nephrology still running ok during HD) Recorded low pulse rate secondary to PVCs/ ventricular bigeminy rather than true bradycardic event. Medication Changes From Visit none Admission HPI Per Admitting Provider Patient is a medically complex 59-year-old male with past medical history significant for insulin-requiring DM type II, severe CATALINO, HLD, HTN, pulmonary emphysema, mild ascending aorta dilatation, severe CAD with history of NSTEMI s/p cardiac catheterization in December 2018 with ELIESER x 1 to OM1, mild ischemic cardiomyopathy, history of polysubstance abuse s/p serial inpatient alcohol rehab stays with history of withdrawal seizures, alcoholic hepatitis with severe fatty liver disease, tobacco use disorder, ESRD on HD M/W/F, history of bradycardia during HD, history of NSVT, anemia of chronic disease, persistent proteinuria, polyneuropathy, depression/MECHELLE, mild cognitive impairment and other problems listed below who presented to the ED via EMS from his dialysis session after being found to be bradycardic with HR in the 30s. History obtained from the patient, discussion with ED provider and associated chart review. Patient noted to be bradycardic with heart rate in the 30s after arriving at [facility] earlier this morning. His HD session was NOT started because of this; he was sent to ED for further evaluation. Patient states he was asymptomatic during this event other than feeling tired. Denies any SOB, chest pain, palpitations, lightheadedness or dizziness when the bradycardia occurred. Has been compliant with his dialysis sessions; did not have any issues during his dialysis sessions on Monday or Monday this week. Follows with [facility] nephrology, Dr. Cornell. Mentions he has had bradycardia during past dialysis sessions when he was found to be hyperkalemic. Endorses poor sleep overnight. Admits to taking both melatonin and trazodone last evening to help him sleep. Heart rate upon arrival to the ED was in the mid to low 60s. At the time of my evaluation, patient's heart rate remained in the low 60s and telemetry revealed sinus rhythm with occasional PVCs. Vitals otherwise stable. Follows with [facility] cardiology. Lexiscan nuclear stress testing completed in June 2024: large inferior and apical perfusion defect involving 35% of the total myocardium, akinesis of the apex and hypokinesis of the inferior wall, LVEF = 47%. TTE completed in September 2023: mildly increased concentric LV wall thickness, mildly enlarged LA, grade 1 DD, mild AV R, mild MR, mildly enlarged ascending aorta measuring 3.8cm. Admission Exam Per Admitting Provider General: WD/WN, NAD, appears fatigued, A&Ox3, cooperative, conversing appropriately HEENT: Normocephalic, atraumatic, oropharynx normal. Respiratory: Normal respiratory effort, somewhat diminished 2/2 body habitus but otherwise lungs clear to auscultation bilaterally Cardiovascular: Regular rate, frequent premature beats, normal peripheral pulses, no BLE edema Abdomen/GI: Normal bowel sounds, soft, nontender to palpation in all quadrants Extremities/MSK: No cyanosis or clubbing, extremities motor strength intact, moves all extremities, + AV fistula RUE Neurologic: No overt focal deficits, CN's II-XI not formally tested but appear grossly intact bilaterally Discharge Exam Constitutional WD/WN, vitals as above Respiratory normal respiratory effort, lungs clear to auscultation Cardiovascular RRR, no murmur, no edema Gastrointestinal (Abdomen) normal bowel sounds, soft, nontender, no hepatosplenomegaly Updated Medication List Medication Instructions Recorded Confirmed Type atorvastatin 80 mg tablet 80 mg PO QAM 10/25/21 09/13/24 History duloxetine 30 mg capsule,delayed 30 mg PO QAM 03/27/23 09/13/24 History release (Cymbalta) desloratadine 5 mg tablet 5 mg PO QAM 07/12/23 09/13/24 History (Clarinex) folic acid 1 mg tablet 1 mg PO QAM 07/12/23 09/13/24 History acetaminophen 325 mg tablet 650 mg PO DIRECTED PRN 08/23/23 09/13/24 History (Tylenol) PAIN/FEVER blood-glucose sensor (DexTherio G7 #3 ea 04/30/24 09/13/24 Rx Sensor device) insulin lispro 100 unit/mL 10 - 15 unit subcut TID 05/14/24 09/13/24 History subcutaneous pen (Humalog KwikPen (U-100) Insulin) blood sugar diagnostic (mPowaTouch #100 ea 05/28/24 09/13/24 Rx Verio test strips) blood-glucose meter (mPowaTouch #1 ea 05/28/24 09/13/24 Rx Verio Flex Meter) lancets 30 gauge (OneTouch Delica #100 ea 05/28/24 09/13/24 Rx Plus Lancet) insulin glargine 100 unit/mL (3 22 unit (0.22 mL) subcut QAM #30 mL 06/24/24 09/13/24 Rx mL) subcutaneous pen (Lantus Solostar U-100 Insulin) calcium acetate 667 mg tablet 667 - 1,334 mg PO DIRECTED 08/20/24 09/13/24 History aspirin 81 mg tablet,delayed 81 mg PO DAILY 09/13/24 09/13/24 History release lidocaine-prilocaine 2.5 %-2.5 % 1 g topical 3XWK 09/13/24 09/13/24 History topical cream metoprolol succinate 50 mg 50 mg PO QAM 09/13/24 09/13/24 History tablet,extended release 24 hr midodrine 2.5 mg tablet 2.5 mg PO 3XWK 09/13/24 09/13/24 History pantoprazole 20 mg tablet,delayed 20 mg PO QAM 09/13/24 09/13/24 History release sodium zirconium cyclosilicate 10 10 g PO DAILY 09/13/24 09/13/24 History gram oral powder packet (Lokeloh) trazodone 50 mg tablet 50 mg PO HS 09/13/24 09/13/24 History venlafaxine 37.5 mg 37.5 mg PO QAM 09/13/24 09/13/24 History capsule,extended release 24 hr vitamin B complex-vitamin C-folic 1 tab PO DAILY 09/13/24 09/13/24 History acid 0.8 mg tablet (Anjali-Ladonna) calcitriol 0.25 mcg capsule 0.25 mcg PO 3XWK 30 days #12 caps 09/14/24 Rx cinacalcet 90 mg tablet 90 mg PO 3XWK #12 tabs 09/14/24 Rx Hospital Stay Data Consultations 09/13/24 08:51 Consult Nephrology Routine ED Decision to Admit Stat 09/13/24 11:25 Consult Cardiology Routine Diagnostic Imagining Performed 09/13/24 13:00 hemodialysis fistula Routine Pending Results Patient Have Any Pending Studies at Discharge: No Discharge Instructions Given to Patient (Per Discharging Provider) You were admitted for concern of low heart rates. It was noted to be an extra beat that was not deemed a true low heart rate. You were evaluated and cleared by cardiology. You will need to follow up with Cardiology to coordinate your stress test. You have an appointment on 09/25 with Cardiology at [facility]. You were seen by Nephrology. Please continue your regimen of velforo with one phoslo with meals. >> cont phoslo 4 ac/2 snack in house -continue calcitriol 0.25mg in morning Monday, Monday, Fridays -continue cinacalcet 90 mg in morning Monday, Monday, Fridays Please follow up with PCP for to obtain CPAP Please follow up with your PCP to discuss referral to Vascular surgery for your fistula Total Time Total Time Spent Total Time Spent (In Minutes): 45
[2024-09-14 13:27] VITALS: TEMP 98.8
[2024-09-14] MEDS: SODIUM ZIRCONIUM CYCLOSILICATE 10 GM PACKET PO SCH (14:24)
[2024-09-14 14:59] VITALS: BP 110/56; RESP 21; O2SAT 95
[2024-09-14 15:15] VITALS: PULSE 73
[2024-09-16] MEDS ORDERED: MIDODRINE HCL 2.5 MG TAB PO SCH (09:00)
== END 2024-09-14 15:53 | disposition home or self-care (01) | DRG 314 ==
LOC: ED 05:59 → 2S 09:10 → INTOOBSV 09:10 → 2S 09:54